=== PATIENT | male | born 1945 | race Caucasian/White ===

== ENCOUNTER → 2019-04-01 15:26 | Outpatient (CLI) | payer MEDICARE, OTHER, SELFPAY ==
--- NOTE | 2019-04-01 15:36 | EKG12_ITS ---
Test Reason : PRE-OP Blood Pressure : / mmHG Vent. Rate : 060 BPM Atrial Rate : 060 BPM P-R Int : 172 ms QRS Dur : 100 ms QT Int : 412 ms P-R-T Axes : 047 -54 006 degrees QTc Int : 412 ms Normal sinus rhythm Left axis deviation LAHB Abnormal ECG Confirmed by KOBE PRO ([id number]), sheeter machine operator TREVOR DAWN ([id number]) on 04/03/2019 3:01:55 PM Referred By: Randa Cali Confirmed By:KOBE PRO
[2019-04-01 15:56] LABS: Absolute Lymphocyte Count 2.31 X10^3/uL (0.83-4.51); Absolute Neutrophil Count 3.5 X10^3/uL (2.0-7.7); Basophil# 0.03 X10^3/uL; Basophil% 0.5 % (0-1); Eosinophil# 0.25 X10^3/uL; Eosinophils% 3.8 % (0-5); Hematocrit 41.4 % (40-54); Hemoglobin 13.5 g/dL (13.0-16.5); Lymphocyte # 2.31 X10^3/ul (4.0); Lymphocyte % 34.8 % (19-41); Mean Corp Hgb Conc 32.6 g/dL (32-36); Mean Corpuscular Hgb 28.1 pg (27.0-32.0); Mean Corpuscular Volume 86.1 fL (80-94); Mean Platelet Vol. 10.4 fl (6.2-12.0); Monocyte# 0.49 X10^3/uL; Monocyte% 7.4 % (0-10); NRBC Flagged by Analyzer 0 % (0-5); Neutrophil # 3.54 X10^3/uL (2.7-7.7); Neutrophil % 53.2 % (47-70); Platelet Count 219 K/mm3 (150-450); RBC Distribution Width CV 13.5 % (11.6-14.6); RBC Distribution Width SD 42.5 fl (35.1-43.9); Red Blood Count 4.81 M/mm3 (4.6-6.2); White Blood Count 6.6 K/mm3 (4.4-11.0)
[2019-04-01 16:41] LABS: Anion Gap 4 (5-15); BUN 15 mg/dL (7-18); BUN/Creat Ratio 15.3 RATIO (10-20); Calcium,Total 9.1 mg/dL (8.5-10.1); Chloride 107 mmol/L (98-107); Creatinine, Serum 0.98 mg/dL (0.70-1.30); EST Glomerular Filtration Rate 80 mL/min (>60); Est Glom Filt Rate - Afr Amer 97 mL/min (>60); Glucose 102 mg/dL (74-106); Sodium Level 140 mmol/L (136-145)
== END ==
PROVIDERS: PCP Family Medicine; Referring Provider Registered Nurse; Visit Provider Registered Nurse
DX: Z01.818 Encounter for other preprocedural examination (principal)
CPT/HCPCS: 36415; 80048; 85025; 93005

== ENCOUNTER 2020-03-18 12:48 | Outpatient (CLI) | payer MEDICARE, OTHER, SELFPAY ==
[2020-03-18 13:05] VITALS: BP 146/98; PULSE 79; RESP 18; TEMP 38.7; O2SAT 97; BMI 29.0
[2020-03-18] MEDS: Acetaminophen 325 MG Tablet 650 MG PO (13:31)
--- NOTE | 2020-03-18 13:37 | NURSING ---
KATELYN Kilgore spoke with SHOAIB John about pt's elevated temp of 101.7. SHOAIB John states it is proper to give tylenol per order and ok to give Bamlanivimab before fever has been reduced. She states for KATELYN Kilgore to be aware that an elevated temp would not necessarily mean pt is having a reaction.
[2020-03-18 14:05] VITALS: BP 142/68; PULSE 77; RESP 16; TEMP 38.1; O2SAT 98
[2020-03-18 14:35] VITALS: BP 129/70; PULSE 73; RESP 16; TEMP 38.1; O2SAT 98
[2020-03-18 14:54] VITALS: BP 135/77; PULSE 73; RESP 16; TEMP 37.7; O2SAT 96
[2020-03-18 15:24] VITALS: BP 140/84; PULSE 71; RESP 16; TEMP 36.4; O2SAT 98
[2020-03-18 15:54] VITALS: BP 137/76; PULSE 71; RESP 16; O2SAT 99
== END 2020-03-18 16:02 | disposition home or self-care (01) ==
LOC: MS2OUT 12:49 → MS2 12:49
PROVIDERS: PCP Family Medicine; Referring Provider Nurse Practitioner Acute Care; Visit Provider Nurse Practitioner Acute Care
DX: U07.1 COVID-19 (principal)
CPT/HCPCS: J7050; M0239; Q0239

== ENCOUNTER 2020-03-18 21:25 | Observation (INO) | payer MEDICARE, OTHER, SELFPAY ==
[2020-03-18 13:05] VITALS: BMI 29.0
[2020-03-18 21:27] VITALS: BP 140/70; PULSE 95; RESP 22; TEMP 39.5; O2SAT 95; BMI 29.4
--- NOTE | 2020-03-18 22:19 | EKG12_ITS ---
Test Reason : DYSRHYTHMIA Blood Pressure : / mmHG Vent. Rate : 079 BPM Atrial Rate : 079 BPM P-R Int : 164 ms QRS Dur : 098 ms QT Int : 372 ms P-R-T Axes : 040 -62 005 degrees QTc Int : 426 ms Normal sinus rhythm Left axis deviation Abnormal ECG Confirmed by SARWAT LINDO, NISHA ([id number]), publication editor ANGI RIDER ([id number]) on 03/22/2020 10:53:30 AM Referred By: FELIX Confirmed By:ILIANA FAM MD
[2020-03-18 22:20] VITALS: BP 140/96; O2SAT 95
--- NOTE | 2020-03-18 22:30 | RAD_ITS ---
STUDY: X-RAY CHEST REASON FOR EXAM: Male, 74 years old. COVID + result on Sunday, has had symptoms for 8-9 days. had antibody infusion today, continues to have fever and confusion. TECHNIQUE: Single AP portable view of the chest. COMPARISON: None. FINDINGS: Normal lung volumes. Elevated left hemidiaphragm. Mild haziness and parenchymal streakiness in the mid and lower left lung. Findings could be scarring and/or atelectasis. Infiltrate not excluded. No gross effusions. There is no demonstrated pleural abnormality. Normal size heart. Normal mediastinum and senait. Normal visualized pulmonary arteries. Normal visualized aortic arch and descending thoracic aorta. Normal visualized thoracic spine. Normal visualized ribs, clavicles, and shoulders. There is no demonstrated abnormality of the visualized soft tissue structures of the upper abdomen. RAD/Chest 1 View (Portable) IMPRESSION: Hazy and streaky increased density of the mid and lower left lung. Electronically Signed: Aubrey Chauhan MD at 22:47 EST , Service support ,
[2020-03-18 22:53] LABS: Basophil# 0.01 X10^3/uL; Basophil% 0.2 % (0-1); Hematocrit 39.1 % (40-54); Hemoglobin 12.8 g/dL (13.0-16.5); Mean Corp Hgb Conc 32.7 g/dL (32-36); Mean Corpuscular Hgb 27.9 pg (27.0-32.0); Mean Corpuscular Volume 85.4 fL (80-94); Mean Platelet Vol. 11.3 fl (6.2-12.0); Monocyte# 0.36 X10^3/uL; Monocyte% 6.6 % (0-10); NRBC Flagged by Analyzer 0 % (0-5); Neutrophil % 72.8 % (47-70); Platelet Count 149 K/mm3 (150-450); RBC Distribution Width CV 13.3 % (11.6-14.6); Red Blood Count 4.58 M/mm3 (4.6-6.2); White Blood Count 5.5 K/mm3 (4.4-11.0)
[2020-03-18 23:00] VITALS: BP 173/85; PULSE 80; RESP 14; TEMP 39.4; O2SAT 95
[2020-03-18 23:01] LABS: International Normalized Ratio 1.1; Partial Thromboplast Time 42.1 Seconds (24.1-36.2)
[2020-03-18 23:07] LABS: ALB/GLOB Ratio 0.9 RATIO (0.9-2.4); AST(SGOT) 13 U/L (15-37); Alanine Aminotransfer ALT/SGPT 29 U/L (16-61); Albumin, Serum 3.4 g/dL (3.2-5.0); Alkaline Phosphatase 74 U/L (45-117); Anion Gap 7 (5-15); BUN 14 mg/dL (7-18); BUN/Creat Ratio 12.6 RATIO (10-20); Calcium,Total 8.5 mg/dL (8.5-10.1); Chloride 103 mmol/L (98-107); Creatinine, Serum 1.11 mg/dL (0.70-1.30); EST Glomerular Filtration Rate 69 mL/min (>60); Est Glom Filt Rate - Afr Amer 84 mL/min (>60); Estimated Creatinine Clearance 67.98 ml/min; Globulin 3.7 g/dL (2.2-4.2); Glucose 151 mg/dL (74-106); Potassium 3.8 mmol/L (3.5-5.1); Protein, Total 7.1 g/dL (6.4-8.2); Sodium Level 135 mmol/L (136-145)
--- NOTE | 2020-03-18 23:11 | CT_ITS ---
STUDY: CT BRAIN WITHOUT CONTRAST REASON FOR EXAM: Male, 74 years old. CONFUSION AND FEVER,PT HAD ANTIBODY INFUSION TODAY -- + COVID TEST ON SUNDAY RADIATION DOSAGE (If Supplied By Facility): CTDIvol = ( 44.99 ) mGy, DLP = ( 762.36 ) mGycm TECHNIQUE: Transaxial CT imaging of the brain was performed without administration of intravenous contrast material. Individualized dose optimization techniques were used for this CT. COMPARISON: No relevant priors. FINDINGS: Normal soft tissue structures. Normal calvarium. There is mild cerebral atrophy with widening of the extra-axial spaces and ventricular dilatation. There are areas of decreased attenuation within the white matter tracts of the supratentorial brain, consistent with microvascular disease changes. Normal basal ganglia and thalami. Normal brainstem. Normal cerebellum. There is no intracranial hemorrhage. There are no findings of an acute ischemic infarction. There is mucoperiosteal inflammatory disease of the bilateral maxillary sinuses consistent with mild chronic sinusitis. Possible small retention cyst left maxillary sinus. The bilateral mastoid air cells and ossicles are unopacified. CT/Brain/Head without Contrast IMPRESSION: Chronic involutional changes of the brain. There is no acute intracranial pathology. Electronically Signed: Debora Rosas MD at 0:34 EST , Service support ,
[2020-03-18 23:12] LABS: Lactic Acid 2.5 mmol/L (0.4-1.9)
[2020-03-18 23:15] LABS: Bacteria 0 SEEN /hpf (None Seen); Mucous, Urine 0 SEEN /hpf (<or=2+); Red Blood Cells-Urine 0 SEEN /hpf (0-5); Squamous Epithelial Cells - UA 0 SEEN /hpf (0-5); White Blood Cells 0 SEEN /hpf (0-5)
[2020-03-18 23:19] LABS: Color, Urine Yellow (Yellow); Glucose, Dipstick Normal (Normal); Ketone-Dipstick Negative (Negative); Leukocyte Esterase-Dipstick 25 /ul (Negative); Nitrite-Dipstick Negative (Negative); Occult Blood-Urine 50 /ul (Negative); Protein-Dipstick 30 mg/dl (Negative); Urine Bilirubin Dipstick Negative (Negative); Urine Clarity Clear (Clear); Urine Urobilinogen Normal (Normal)
[2020-03-18 23:23] VITALS: BP 148/90; PULSE 78; RESP 11; O2SAT 91
[2020-03-18] MEDS: Acetaminophen 500 MG Tablet 1000 MG PO (23:29)
[2020-03-19] VITALS (16 sets, daily range): BP systolic 113–169; BP diastolic 68–98; PULSE 51–84; RESP 14–20; TEMP 35.9–36.9; O2SAT 93–99; BMI 29.4
--- NOTE | 2020-03-19 00:11 | PCM.HP.STD ---
Problem List (1) Pneumonia due to COVID-19 virus Status: Acute (2) Severe sepsis Status: Acute (3) Hypoxia Status: Acute (4) Elevated BP without diagnosis of hypertension Status: Acute (5) BPH (benign prostatic hyperplasia) Status: Chronic Qualifiers: Lower urinary tract symptom presence: unspecified whether lower urinary tract symptoms present Qualified Code(s): N40.0 - Benign prostatic hyperplasia without lower urinary tract symptoms (6) Hyperlipidemia Status: Chronic Qualifiers: Hyperlipidemia type: unspecified Qualified Code(s): E78.5 - Hyperlipidemia, unspecified History of Present Illness Date of Admission: 03/19/20 Chief Complaint: Fatigue, confusion, dyspnea The patient is a 74 y/o M w/ PMHx: BPH, HLD who presents to the [facility] ED on 03/19/20 with history of recent onset significant fatigue, malaise, very mild headache as well as cough but no significantly associated dyspnea starting the Sunday prior to current presentation with testing for Covid on Sunday noted to be positive with administration on 03/18/2020 monoclonal antibody and following this family reportedly noting that patient was more fatigued and slightly confused prompting ED evaluation. In the ED patient was coherent and oriented but significantly fatigued and as noted with any exertion his oxygenation did decrease to 90 to 91%. Work-up in the ED included T103.1, heart rate 95, BP 140/70, respiratory rate 22, 95% on room air initially however with exertion would decrease to 91%, CBC with WBC 5.5, hemoglobin 12.8, platelet 149 without significant shift, coags with PT 14, INR 1.1, PTT 42.1, CMP with sodium 135, glucose 151, lactic acid 2.5, urinalysis not marked appearing, blood culture x2 pending per ED, urine culture pending per ED, chest x-ray with hazy and streaky increased density of the mid and lower left lung, EKG was sinus rhythm with no acute evidence of ischemia. In the ED patient ministered Tylenol 1000 mg p.o. x1 as well as Decadron. Past Medical History Past Medical History (Chronic Problems): Chronic Problems BPH (benign prostatic hyperplasia) (Chronic) Hyperlipidemia (Chronic) Allergies No Known Allergies Allergy (Verified 03/18/20 21:33) Home Medications: Ambulatory Orders Medication Instructions Recorded atorvastatin 10 mg tablet 20 mg PO DAILY tab 03/17/20 tamsulosin 0.4 mg capsule 0.4 mg PO DAILY 03/17/20 Surgical History: - - Lumbar back surgery, left knee arthroscopic surgery, bilateral inguinal hernia repairs. Psychiatric History: No pertinent psych hx Lives: Alone Smoking Status: Never smoker Tobacco Use: Non-smoker Alcohol: None Drugs: None - *Family History Maternal History Items: Hypertension Paternal History Items: Hypertension Review of Systems Constitutional: Reports: Anorexia, Chills, Fever, Malaise, Weakness, Fatigue. Denies: Weight Change HEENT: Reports: Head Aches. Denies: Sinus Congestion, Sinus Drainage Cardiovascular: Denies: Chest Pain, Palpitations Respiratory: Reports: Cough. Denies: Shortness of Breath, Shortness of breath at rest, Sputum production Gastrointestinal: Denies: Abdominal Pain, Nausea, Vomiting Genitourinary: Denies: Dysuria Musculoskeletal: Reports: Joint Pain, Muscle pain. Denies: Joint Tenderness Skin: Denies: Rash, Wounds Neurological: Denies: Numbness, Tingling, Focal weakness Psychiatric: Denies: Anxiety, Depression, Homicidal Ideations, Suicidal Ideations Hematologic/ Lymphatic: Denies: Easy Bruising, Easy Bleeding VTE Information - Inpt Only VTE Present on Admission: No VTE Mechan Device Prophylaxis: SCD's VTE Pharm Prophylaxis ordered?: Yes Patient Problems: Active and Suspected Problems Pneumonia due to COVID-19 virus (Acute) Severe sepsis (Acute) Subjective: Patient seated upright in the ED bed, fatigued appearing, no obvious respiratory distress. Objective: Physical Examination: General: awake, alert, oriented x 3 including to self, place, recent events, remains cooperative, seated upright at the ED bedside, fatigued, ill-appearing, flushed. Skin: Flushed color, turgor, no icterus, cyanosis. HEENT: AT/NC, EOMI, PERRLA, moderately dry MM, no carotid bruits or JVD noted. Lungs: Diminished breath sounds, greater bases, currently moderate effort with no evidence of respiratory distress, no rales, ronchi or wheezing. Heart: Mildly tachycardic with regular rhythm; no gallop, rub audible. Abdomen: soft, NTTP, ND, normal BS, no HSM. Extremities: no cyanosis, clubbing, or edema. Neurological: patient awake, alert, oriented as noted; cognitive function improved and appears baseline intact; pupils equally reactive to light and accomodation; cranial nerves II-XII grossly normal, moving all 4 extremities, no focal deficits, strength moderately global decrease secondary to acute presentation and illness. Psychiatric: affect appears fatigued otherwise normal, no acute evidence of depressive or anxiety feelings. - Physical Exam Vitals/I&O's: Vital Signs Temp Pulse Resp BP Pulse Ox 102.9 F H 78 11 L 148/90 H 91 03/18/20 23:00 03/18/20 23:23 03/18/20 23:23 03/18/20 23:23 03/18/20 23:23 Oxygen Flow Rate (L/min) 2 Oxygen Delivery Method Room Air Weight: 223 lb 1.725 oz Body Mass Index (BMI) 29.4 Laboratory Results 03/18/20 21:30: WBC 5.5, RBC 4.58 L, Hgb 12.8 L, Hct 39.1 L, MCV 85.4, MCH 27.9, MCHC 32.7, RDW Std Deviation 42.0, RDW Coeff of [place] 13.3, Plt Count 149 L, MPV 11.3, Immature Gran % (Auto) 0.400, Neut % (Auto) 72.8 H, Lymph % (Auto) 20.0, [place] % (Auto) 6.6, Eos % (Auto) 0.0, Baso % (Auto) 0.2, Absolute Neuts (auto) 4.0, Absolute Lymphs (auto) 1.10, Nucleated RBC % 0 03/18/20 21:30: PT 14.0, INR 1.1, APTT 42.1 H 03/18/20 21:30: Sodium 135 L, Potassium 3.8, Chloride 103, Carbon Dioxide 25.0, Anion Gap 7, BUN 14, Creatinine 1.11, Estim Creat Clear Calc 67.98, Est GFR (MDRD) Af Amer 84, Est GFR (MDRD) Non-Af 69, BUN/Creatinine Ratio 12.6, Glucose 151 H, Calcium 8.5, Total Bilirubin 0.50, AST 13 L, ALT 29, Alkaline Phosphatase 74, Total Protein 7.1, Albumin 3.4, Globulin 3.7, Albumin/Globulin Ratio 0.9 03/18/20 21:30: Lactic Acid 2.5 H* 03/18/20 23:10: Urine Color Yellow, Urine Clarity Clear, Urine pH 6.0, Ur Specific [place] 1.010, Urine Protein 30 H, Urine Glucose (UA) Normal, Urine Ketones Negative, Urine Occult Blood 50 H, Urine Nitrite Negative, Urine Bilirubin Negative, Urine Urobilinogen Normal, Ur Leukocyte Esterase 25 H, Urine RBC 0 SEEN, Urine WBC 0 SEEN, Ur Squamous Epith Cells 0 SEEN, Urine Bacteria 0 SEEN, Urine Mucus 0 SEEN Assessment/Plan All Active Problems Pneumonia due to COVID-19 virus (Acute) Severe sepsis (Acute) Hypoxia (Acute) Elevated BP without diagnosis of hypertension (Acute) The patient is a 74 y/o M w/ PMHx: JENNY, MARY who presents to the [facility] ED on 03/19/20 with history of recent onset significant fatigue, malaise, very mild headache as well as cough but no significantly associated dyspnea starting the Sunday prior to current presentation with testing for Covid on Sunday noted to be positive with administration on 03/18/2020 monoclonal antibody and following this family reportedly noting that patient was more fatigued and slightly confused prompting ED evaluation. 1. Acute Encephalopathy secondary to Acute Severe Sepsis secondary to Acute Pneumonia secondary to Acute Viral Syndrome, COVID-19: Will admit to the COVID unit, will maintain on oxygen with wean as tolerated to room air, PRN albuterol, HOB, IS parameters w/ pending sputum cultures, respiratory viral panel and urine antigens, will obtain D-dimer, procalcitonin, CRP, CPK, Ferritin, LDH, trop and BNP, continue supportive care including q 2 hour turning including prone given no prone bed availability and judicious hydration, closely monitor for worsening status for ARDS and multiorgan failure, will consult Infectious disease, will initiate and continue IV decadron x 10 doses, given presentation will also initiate IV remdesivir as per prior discussions with infectious disease monoclonal antibody administration is not a clinical indication for deferral of remdesivir usage but defer to discretion of Infectious disease. Patient does report that he is blood type A-. 2. Elevated BP without hypertensive history: Patient with elevated BPs in the ED, possibly associate with acute presentation, will continue to monitor and if appropriate add oral regimen, in the interim we will continue IV as needed agents. 3. Hyperlipidemia: We will continue patient home statin therapy. 4. BPH: Patient reports has not been taking Flomax but if necessary may add back. 5. Hyperglycemia: Admission glucose 151, likely stress response, will obtain hemoglobin A1c to be cautious. 6. DVT prophylaxis: SCDs, Lovenox. 7. CODE status: Patient SULEMAN is his eldest son Daniel and living will is currently in place. Discussed CODE status at length including difference between FULL code, DNR-CCA and DNR-CC status. Following discussions about the differences in these status, requested Full Code status. Advanced Care Planning Face to Face Time: 16 minutes. OBSV E&M: 31912 Initial observation care L3 Procedures: 24196 Advncd Care Plan 30 Min
--- NOTE | 2020-03-19 00:21 | ED.DCSUM_ITS ---
- ER Visit Summary Date of Service: 03/19/20 Chief Complaint: Confusion History of Present Illness: The patient is a 74 M who presents with confusion that began today. Patient was recently diagnosed with COVID-19. Patient had a monoclonal antibody infusion today. After that, the patient appeared to be more confused per son. Son states that patient was confused on the day and time. Son states patient had a rapid antigen and PCR test done on Sunday, 6 days ago. Son reports that the rapid antigen test was negative but the PCR test came back positive on Sunday. Patient states he started having a fever today up to 102.5 at home. Patient admits to a cough. Patient also admits to a headache. Nancy ent denies any chest pain. Physical Examination: Vital signs are stable. Patient is febrile here with a temperature of 103.1. Patient is in no acute distress. Oral mucosa is pink and moist. Neck is supple. Trachea is midline. There is no JVD. Heart was regular rate and rhythm. Lungs are clear but diminished bilaterally. Abdomen is soft. Bowel sounds are normal. There is no tenderness. Cranial nerves II through XII are intact. There are no focal motor or sensory deficits noted. Extremities are intact. There is no calf tenderness or edema. Test Results: Portable chest x-ray was obtained. There is 1 view. On my interpretation, there is bilateral perihilar infiltrates and a left lower lobe infiltrate. Radiologist also interpreted the x-ray and felt there was only a left lower lobe and left perihilar infiltrate. EKG was obtained. On my interpretation, there is normal sinus rhythm with a rate of 79. There is left axis deviation. There is no acute ST or T wave changes noted. CBC was essentially within normal limits. Comprehensive metabolic profile was normal. PT with INR and PTT were normal. Urinalysis does not show any evidence of urinary tract infection. Lactate was elevated 2.5. Emergency Department Course and Treatment: Patient was given a dose of Tylenol here. Patient was given a dose of Decadron. Case was discussed with the hospitalist. She will admit the patient to her service. She recommended ambulating the patient on room air with a pulse oximeter. This was done. Patient's oxygen saturation dropped from 94 to 91% on room air with ambulation. Patient understood and was agreeable with the plan. All questions were answered. Disposition: Admit to hospital Impression: 1. COVID-19 pneumonia 2. Severe sepsis This note was generated with Melophone dictation software. It may contain incorrect words, spelling, and punctuation that were not noted in review of the chart prior to signing ED Disposition - Plan for ED Patient: Disposition: Acute Care Hospital [facility] Diagnosis: Pneumonia due to COVID-19 virus, Severe sepsis Referrals: Moiz Tobias MD [Primary Care Provider] -
[2020-03-19] MEDS: dexAMETHasone 10 MG/ML Vial IV (00:37)
[2020-03-19 02:45] LABS: Reflex Lactate? Y
[2020-03-19 02:57] LABS: D-Dimer Quantitative (DVT/PE) 0.58 FEU/ug/m (0.27-0.49)
[2020-03-19 03:07] LABS: Hemoglobin A1c 5.9 % (3.8-5.6)
[2020-03-19 03:10] LABS: Absolute Lymphocyte Count 0.98 X10^3/uL (0.83-4.51); Absolute Neutrophil Count 6.9 X10^3/uL (2.0-7.7); Basophil# 0.01 X10^3/uL; Basophil% 0.1 % (0-1); Eosinophil# 0.01 X10^3/uL; Eosinophils% 0.1 % (0-5); Hematocrit 39.3 % (40-54); Hemoglobin 13.5 g/dL (13.0-16.5); Lymphocyte # 0.98 X10^3/ul (4.0); Lymphocyte % 11.9 % (19-41); Mean Corp Hgb Conc 34.4 g/dL (32-36); Mean Corpuscular Volume 84.3 fL (80-94); Mean Platelet Vol. 10.5 fl (6.2-12.0); Monocyte# 0.32 X10^3/uL; Monocyte% 3.9 % (0-10); NRBC Flagged by Analyzer 0 % (0-5); Neutrophil % 83.6 % (47-70); Platelet Count 164 K/mm3 (150-450); RBC Distribution Width CV 13.4 % (11.6-14.6); RBC Distribution Width SD 41.5 fl (35.1-43.9); Red Blood Count 4.66 M/mm3 (4.6-6.2); White Blood Count 8.3 K/mm3 (4.4-11.0)
[2020-03-19 03:16] LABS: BNP,B-Type NATRIURETIC PEPTIDE 54.1 pg/mL (0-100)
[2020-03-19 03:28] LABS: Procalcitonin 0.15 ng/mL (0.00-0.09)
[2020-03-19 03:28] LABS: Alkaline Phosphatase 75 U/L (45-117); Ferritin 114 ng/mL (26-388); LDH 288 U/L (87-241)
[2020-03-19 03:33] LABS: ALB/GLOB Ratio 0.9 RATIO (0.9-2.4); AST(SGOT) 16 U/L (15-37); Alanine Aminotransfer ALT/SGPT 32 U/L (16-61); Albumin, Serum 3.5 g/dL (3.2-5.0); Alkaline Phosphatase 73 U/L (45-117); Anion Gap 10 (5-15); BUN 16 mg/dL (7-18); BUN/Creat Ratio 14.7 RATIO (10-20); Calcium,Total 8.2 mg/dL (8.5-10.1); Chloride 104 mmol/L (98-107); Creatinine, Serum 1.09 mg/dL (0.70-1.30); EST Glomerular Filtration Rate 71 mL/min (>60); Est Glom Filt Rate - Afr Amer 86 mL/min (>60); Estimated Creatinine Clearance 69.23 ml/min; Glucose 118 mg/dL (74-106); Potassium 4.1 mmol/L (3.5-5.1); Protein, Total 7.5 g/dL (6.4-8.2); Sodium Level 135 mmol/L (136-145)
[2020-03-19 03:34] LABS: Lactic Acid 0.8 mmol/L (0.4-1.9)
[2020-03-19] MEDS: 0.9% Normal Saline 1,000 ML 100 ML IV (03:35)
--- NOTE | 2020-03-19 08:25 | PCM.PN.HOSP ---
Patient Problems: Active and Suspected Problems Pneumonia due to COVID-19 virus (Acute) Severe sepsis (Acute) Hypoxia (Acute) Elevated BP without diagnosis of hypertension (Acute) Reason for Visit: Follow-up for confusion after monoclonal antibody infusion. Objective: The patient was admitted with confusion and recently diagnosed with COVID-19. Patient also had monoclonal antibody infusion on 03/18 and was more confused. Patient had PCR test done on 03/12 which came positive. Had headache at the time of admission Patient currently is denies any headache. Feels good. Denies shortness of breath. Physical exam General: Alert, Oriented x3, Cooperative HEENT: Atraumatic, PERRLA, EOMI, Normocephalic Oral: No Gingival or Mucosal Lesions/ Ulcerations Neck: Supple, No JVD, Negative Carotid Bruits Lungs: Air entry diminished in bilateral lung bases. No crepitation/rhonchi Cardiovascular: Regular rate, Regular Rhythm, Normal S1, Normal S2, No murmurs Abdomen: Bowel Sounds Present, Soft, Non Tender, Non-Distended : No renal angle tenderness. No suprapubic tenderness. Extremities: No edema, Capillary Refill Less than 3 Seconds Skin: No rashes, No breakdown Musculoskeletal: No Tenderness to Palpation of Joints or Extremities Neurological: Cranial nerves II-XII grossly intact, Deep Tendon Reflexes 2+/4 and Symmetrical, Neuro grossly intact Psych/Mental Status: Normal Affect, Appropriate. Vitals/I&O's: Vital Signs Temp Pulse Resp BP Pulse Ox 97 F L 52 L 16 113/68 98 03/19/20 03:32 03/19/20 08:03 03/19/20 03:32 03/19/20 03:32 03/19/20 05:55 Oxygen Flow Rate (L/min) 2 Oxygen Delivery Method Room Air Weight: 223 lb 8.78 oz Body Mass Index (BMI) 29.4 Microbiology Past 72 Hours 03/19/20 Unknown Urine, Clean Catch Legionella Antigen - Final 03/19/20 Unknown Urine, Clean Catch Streptococcus pneumoniae Antigen (M - Final Laboratory Results 03/18/20 21:30: WBC 5.5, RBC 4.58 L, Hgb 12.8 L, Hct 39.1 L, MCV 85.4, MCH 27.9, MCHC 32.7, RDW Std Deviation 42.0, RDW Coeff of [place] 13.3, Plt Count 149 L, MPV 11.3, Immature Gran % (Auto) 0.400, Neut % (Auto) 72.8 H, Lymph % (Auto) 20.0, [place] % (Auto) 6.6, Eos % (Auto) 0.0, Baso % (Auto) 0.2, Absolute Neuts (auto) 4.0, Absolute Lymphs (auto) 1.10, Nucleated RBC % 0 03/18/20 21:30: PT 14.0, INR 1.1, APTT 42.1 H 03/18/20 21:30: Sodium 135 L, Potassium 3.8, Chloride 103, Carbon Dioxide 25.0, Anion Gap 7, BUN 14, Creatinine 1.11, Estim Creat Clear Calc 67.98, Est GFR (MDRD) Af Amer 84, Est GFR (MDRD) Non-Af 69, BUN/Creatinine Ratio 12.6, Glucose 151 H, Calcium 8.5, Total Bilirubin 0.50, AST 13 L, ALT 29, Alkaline Phosphatase 74, Total Protein 7.1, Albumin 3.4, Globulin 3.7, Albumin/Globulin Ratio 0.9 03/18/20 21:30: Lactic Acid 2.5 H* 03/18/20 21:30: D-Dimer Quant (PE/DVT) 0.58 H* 03/18/20 21:30: Hemoglobin A1c 5.9 H 03/18/20 21:30: B-Natriuretic Peptide 54.1 03/18/20 21:30: Procalcitonin 0.15 H 03/18/20 23:10: Urine Color Yellow, Urine Clarity Clear, Urine pH 6.0, Ur Specific [place] 1.010, Urine Protein 30 H, Urine Glucose (UA) Normal, Urine Ketones Negative, Urine Occult Blood 50 H, Urine Nitrite Negative, Urine Bilirubin Negative, Urine Urobilinogen Normal, Ur Leukocyte Esterase 25 H, Urine RBC 0 SEEN, Urine WBC 0 SEEN, Ur Squamous Epith Cells 0 SEEN, Urine Bacteria 0 SEEN, Urine Mucus 0 SEEN 03/19/20 02:50: Magnesium 2.0, Ferritin 114, Alkaline Phosphatase 75, Lactate Dehydrogenase 288 H, Troponin I < 0.015, C-React Prot Ext Range 57.60 H 03/19/20 02:50: WBC 8.3, RBC 4.66, Hgb 13.5, Hct 39.3 L, MCV 84.3, MCH 29.0, MCHC 34.4 D, RDW Std Deviation 41.5, RDW Coeff of [place] 13.4, Plt Count 164, MPV 10.5, Immature Gran % (Auto) 0.400, Neut % (Auto) 83.6 H, Lymph % (Auto) 11.9 L, [place] % (Auto) 3.9, Eos % (Auto) 0.1, Baso % (Auto) 0.1, Absolute Neuts (auto) 6.9, Absolute Lymphs (auto) 0.98, Nucleated RBC % 0 03/19/20 02:50: Sodium 135 L, Potassium 4.1, Chloride 104, Carbon Dioxide 21.0, Anion Gap 10, BUN 16, Creatinine 1.09, Estim Creat Clear Calc 69.23, Est GFR (MDRD) Af Amer 86, Est GFR (MDRD) Non-Af 71, BUN/Creatinine Ratio 14.7, Glucose 118 H, Calcium 8.2 L, Total Bilirubin 0.50, AST 16, ALT 32, Alkaline Phosphatase 73, Total Protein 7.5, Albumin 3.5, Globulin 4.0, Albumin/Globulin Ratio 0.9 03/19/20 02:50: Lactic Acid 0.8 Current Medications Acetaminophen (Acetaminophen 325 Mg Tablet) 650 mg PO Q6H PRN PRN PRN Reason: Pain Score 1-10/Temp > 100.7 F Al Hydroxide/Mg Hydroxide (Mag Hydrox/Al Hydrox/Simeth 30 Ml Udc) 30 ml PO Q6H PRN PRN PRN Reason: Gastric Burning Albuterol Sulfate (Albuterol Ih 8.5 Gm (Proair) Inhaler (200 Puffs)) 4 - 8 puff INHALATION Q4H PRN PRN PRN Reason: Dyspnea, wheezing Atorvastatin Calcium (Atorvastatin Calcium 20 Mg Tablet) 20 mg PO DAILY [facility] Dexamethasone Sodium Phosphate (Dexamethasone 10 Mg/Ml Vial) 6 mg IV DAILY [facility] Stop: 03/28/20 10:01 Enoxaparin Sodium (Enoxaparin 30 Mg/0.3 Ml Syringe) 30 mg SC BID [facility] Famotidine (Famotidine 20 Mg Tablet) 20 mg PO BID [facility] Guaifenesin (Guaifenesin 10 Ml Udc (200mg/10ml)) 20 ml PO Q4H PRN PRN PRN Reason: COUGH Hydralazine HCl (Hydralazine 20 Mg/Ml Vial) 10 mg IV Q4H PRN PRN PRN Reason: SBP > 160 Sodium Chloride () 1,000 mls @ 100 mls/hr IV .Q10H [facility] Stop: 03/19/20 12:38 Last Admin: 03/19/20 03:35 Dose: 100 mls/hr Documented by: Remdesivir 100 mg/ Sodium (Chloride) 250 mls @ 125 mls/hr IV DAILY [facility] Stop: 03/23/20 11:59 Sodium Chloride () 250 mls @ 15 mls/hr IV .[id number] PRN PRN Reason: Saline Flush Remdesivir 200 mg/ Sodium (Chloride) 250 mls @ 125 mls/hr IV X1 ONE Stop: 03/19/20 08:44 Ibuprofen (Ibuprofen 400 Mg Tablet) 400 mg PO Q4H PRN PRN PRN Reason: Pain Score 1-10/Temp > 100.7 F Magnesium Hydroxide (Magnesium Hydroxide 30 Ml Udc) 30 ml PO DAILY PRN PRN PRN Reason: Constipation Melatonin (Melatonin 3 Mg Tablet) 3 mg PO QHS PRN PRN PRN Reason: INSOMNIA Ondansetron HCl (Ondansetron 4 Mg/2 Ml Vial) 4 mg IV Q8H PRN PRN PRN Reason: NAUSEA/VOMITING Prochlorperazine Edisylate (Prochlorperazine 10 Mg/2 Ml Vial) 5 mg IV Q4H PRN PRN PRN Reason: Breakthrough nausea/vomiting Psyllium Hydrophilic Mucilloid (Psyllium 1 Packet) 1 packet PO DAILY PRN PRN PRN Reason: Constipation Senna/Docusate Sodium (Senna/Docusate Sodium 1 Tablet) 2 tablet PO BID PRN PRN PRN Reason: Constipation Sodium Chloride (0.9% Saline Lock 10 Ml Syringe) 10 - 40 ml IV UD PRN PRN Reason: SALINE FLUSH Throat Lozenges (Benzocaine/Menthol 1 Lozenge) 1 lozenge MUCOUS MEM Q2H PRN PRN PRN Reason: SORE THROAT STROKE Vital Signs/Narrative: Vital Signs Pulse Pulse Ox 03/19/20 08:03 52 L 03/19/20 05:55 98 Medical Necessity - Tobacco Use Smoking Status: Never smoker Tobacco Use: Non-smoker Assessment/Plan All Active Problems Pneumonia due to COVID-19 virus (Acute) Severe sepsis (Acute) Hypoxia (Acute) Elevated BP without diagnosis of hypertension (Acute) The patient is a 74 y/o M was admitted with mild headache, mild cough with a diagnosis of COVID-19 by PCR on 03/12. Patient had confusion after monoclonal antibody infusion on 03/18 prior to admission. No significant dyspnea. 1. Acute Encephalopathy secondary to severe sepsis from, left lower lobe COVID-19 pneumonia: Patient admitted on Covid cohort floor. Started on IV Decadron and remdesivir. Monoclonal antibody not contraindication for remdesivir. Inflammatory markers are elevated. Lactic acid was elevated 2.5, repeat normal. Inflammatory markers LDH, CRP, D-dimer and procalcitonin are elevated. CT head does not show acute intracranial pathology. Chest x-ray individually reviewed and shows mild haziness/streak in the mid and left lower lung suggestive of possible scarring or atelectasis or pneumonic infiltrate. On Lovenox 30 mg subcut twice daily. 2. Elevated BP without hypertensive history, new onset essential hypertension: Blood pressure is elevated in ED 173/85. Blood pressure fluctuates it was 113/68 but again went up 158/84. Started on HCTZ 12.5 mg daily. 3. Hyperlipidemia: continue patient home statin therapy. 4. BPH: Not taking Flomax. 5. Hyperglycemia: Admission glucose 151, A1c 5.9 suggestive of prediabetes 6. DVT prophylaxis: SCDs, Lovenox. 7. CODE status: Full code. I talked to the patient's son, Mr. Sanchez and gave the clinical update. Clinical Impression(s) from Imaging Studies Chest X-Ray 03/18/20 22:30 IMPRESSION: Hazy and streaky increased density of the mid and lower left lung. Brain CT 03/18/20 23:11 IMPRESSION: Chronic involutional changes of the brain. There is no acute intracranial pathology.
[2020-03-19] MEDS: Enoxaparin 30 MG/0.3 ML Syringe SC ×2 (08:38→20:30)
[2020-03-19] MEDS: Atorvastatin Calcium 20 MG Tablet PO (08:38)
[2020-03-19] MEDS: Famotidine 20 MG Tablet PO ×2 (08:38→20:30)
[2020-03-19] MEDS: 0.9% Saline Lock 10 ML Syringe IV (08:39)
[2020-03-19] MEDS: dexAMETHasone 10 MG/ML Vial 6 MG IV (08:39)
[2020-03-19] MEDS: hydroCHLOROthiazide 25 MG Tablet 12.5 MG PO (15:42)
--- NOTE | 2020-03-19 16:01 | CON.PCM_ITS ---
Problem List (1) Pneumonia due to COVID-19 virus Status: Acute Reason for Consult: covid Consulted by: Dr. Herrera History of Present Illness: The patient is a 74 year old M with sx starting 03/16, c/o fatigue, not feeling well. Covid (+), got monoclonal Ab infusion 03/18, then developed cough, aches, fever, shakes. Taken to ED, hypoxic, given dex and remdesivir, feeling good today, off O2. Full ROS performed and neg except as noted above. - Medical History Past Medical History (Chronic Problems): Chronic Problems BPH (benign prostatic hyperplasia) (Chronic) Hyperlipidemia (Chronic) Allergies/Adverse Reactions: Allergies No Known Allergies Allergy (Verified 03/18/20 21:33) Home Medications: Ambulatory Orders Medication Instructions Recorded atorvastatin 10 mg tablet 20 mg PO DAILY tab 03/17/20 - Social History Tobacco Use: non-smoker Vital Signs Temp Pulse Resp BP Pulse Ox 97.3 F L 64 20 H 169/98 H 94 03/19/20 15:29 03/19/20 15:29 03/19/20 15:29 03/19/20 15:29 03/19/20 15:29 Oxygen Flow Rate (L/min) 2 Oxygen Delivery Method Room Air Weight: 101.4 kg Body Mass Index (BMI) 29.4 Microbiology Past 72 Hours 03/19/20 05:55 Respiratory Panel (PCR) - Final Mucosa - Nasopharyngeal 03/19/20 Unknown Legionella Antigen - Final Urine, Clean Catch Streptococcus pneumoniae Antigen (M - Final Laboratory Tests Past 24 Hrs 03/18/20 03/18/20 03/18/20 21:30 21:30 21:30 WBC 5.5 RBC 4.58 L Hgb 12.8 L Hct 39.1 L MCV 85.4 MCH 27.9 MCHC 32.7 RDW Std Deviation 42.0 RDW Coeff of [place] 13.3 Plt Count 149 L MPV 11.3 Immature Gran % (Auto) 0.400 Neut % (Auto) 72.8 H Lymph % (Auto) 20.0 [place] % (Auto) 6.6 Eos % (Auto) 0.0 Baso % (Auto) 0.2 Absolute Neuts (auto) 4.0 Absolute Lymphs (auto) 1.10 Nucleated RBC % 0 PT 14.0 INR 1.1 APTT 42.1 H D-Dimer Quant (PE/DVT) Sodium 135 L Potassium 3.8 Chloride 103 Carbon Dioxide 25.0 Anion Gap 7 BUN 14 Creatinine 1.11 Estim Creat Clear Calc 67.98 Est GFR (MDRD) Af Amer 84 Est GFR (MDRD) Non-Af 69 BUN/Creatinine Ratio 12.6 Glucose 151 H Hemoglobin A1c Lactic Acid Calcium 8.5 Magnesium Ferritin Total Bilirubin 0.50 AST 13 L ALT 29 Alkaline Phosphatase 74 Lactate Dehydrogenase Troponin I C-React Prot Ext Range B-Natriuretic Peptide Total Protein 7.1 Albumin 3.4 Globulin 3.7 Albumin/Globulin Ratio 0.9 Procalcitonin Urine Color Urine Clarity Urine pH Ur Specific [place] Urine Protein Urine Glucose (UA) Urine Ketones Urine Occult Blood Urine Nitrite Urine Bilirubin Urine Urobilinogen Ur Leukocyte Esterase Urine RBC Urine WBC Ur Squamous Epith Cells Urine Bacteria Urine Mucus 03/18/20 03/18/20 03/18/20 21:30 21:30 21:30 WBC RBC Hgb Hct MCV MCH MCHC RDW Std Deviation RDW Coeff of [place] Plt Count MPV Immature Gran % (Auto) Neut % (Auto) Lymph % (Auto) [place] % (Auto) Eos % (Auto) Baso % (Auto) Absolute Neuts (auto) Absolute Lymphs (auto) Nucleated RBC % PT INR APTT D-Dimer Quant (PE/DVT) 0.58 H* Sodium Potassium Chloride Carbon Dioxide Anion Gap BUN Creatinine Estim Creat Clear Calc Est GFR (MDRD) Af Amer Est GFR (MDRD) Non-Af BUN/Creatinine Ratio Glucose Hemoglobin A1c 5.9 H Lactic Acid 2.5 H* Calcium Magnesium Ferritin Total Bilirubin AST ALT Alkaline Phosphatase Lactate Dehydrogenase Troponin I C-React Prot Ext Range B-Natriuretic Peptide Total Protein Albumin Globulin Albumin/Globulin Ratio Procalcitonin Urine Color Urine Clarity Urine pH Ur Specific [place] Urine Protein Urine Glucose (UA) Urine Ketones Urine Occult Blood Urine Nitrite Urine Bilirubin Urine Urobilinogen Ur Leukocyte Esterase Urine RBC Urine WBC Ur Squamous Epith Cells Urine Bacteria Urine Mucus 03/18/20 03/18/20 03/18/20 21:30 21:30 23:10 WBC RBC Hgb Hct MCV MCH MCHC RDW Std Deviation RDW Coeff of [place] Plt Count MPV Immature Gran % (Auto) Neut % (Auto) Lymph % (Auto) [place] % (Auto) Eos % (Auto) Baso % (Auto) Absolute Neuts (auto) Absolute Lymphs (auto) Nucleated RBC % PT INR APTT D-Dimer Quant (PE/DVT) Sodium Potassium Chloride Carbon Dioxide Anion Gap BUN Creatinine Estim Creat Clear Calc Est GFR (MDRD) Af Amer Est GFR (MDRD) Non-Af BUN/Creatinine Ratio Glucose Hemoglobin A1c Lactic Acid Calcium Magnesium Ferritin Total Bilirubin AST ALT Alkaline Phosphatase Lactate Dehydrogenase Troponin I C-React Prot Ext Range B-Natriuretic Peptide 54.1 Total Protein Albumin Globulin Albumin/Globulin Ratio Procalcitonin 0.15 H Urine Color Yellow Urine Clarity Clear Urine pH 6.0 Ur Specific [place] 1.010 Urine Protein 30 H Urine Glucose (UA) Normal Urine Ketones Negative Urine Occult Blood 50 H Urine Nitrite Negative Urine Bilirubin Negative Urine Urobilinogen Normal Ur Leukocyte Esterase 25 H Urine RBC 0 SEEN Urine WBC 0 SEEN Ur Squamous Epith Cells 0 SEEN Urine Bacteria 0 SEEN Urine Mucus 0 SEEN 03/19/20 03/19/20 03/19/20 02:50 02:50 02:50 WBC 8.3 RBC 4.66 Hgb 13.5 Hct 39.3 L MCV 84.3 MCH 29.0 MCHC 34.4 D RDW Std Deviation 41.5 RDW Coeff of [place] 13.4 Plt Count 164 MPV 10.5 Immature Gran % (Auto) 0.400 Neut % (Auto) 83.6 H Lymph % (Auto) 11.9 L [place] % (Auto) 3.9 Eos % (Auto) 0.1 Baso % (Auto) 0.1 Absolute Neuts (auto) 6.9 Absolute Lymphs (auto) 0.98 Nucleated RBC % 0 PT INR APTT D-Dimer Quant (PE/DVT) Sodium 135 L Potassium 4.1 Chloride 104 Carbon Dioxide 21.0 Anion Gap 10 BUN 16 Creatinine 1.09 Estim Creat Clear Calc 69.23 Est GFR (MDRD) Af Amer 86 Est GFR (MDRD) Non-Af 71 BUN/Creatinine Ratio 14.7 Glucose 118 H Hemoglobin A1c Lactic Acid Calcium 8.2 L Magnesium 2.0 Ferritin 114 Total Bilirubin 0.50 AST 16 ALT 32 Alkaline Phosphatase 75 73 Lactate Dehydrogenase 288 H Troponin I < 0.015 C-React Prot Ext Range 57.60 H B-Natriuretic Peptide Total Protein 7.5 Albumin 3.5 Globulin 4.0 Albumin/Globulin Ratio 0.9 Procalcitonin Urine Color Urine Clarity Urine pH Ur Specific [place] Urine Protein Urine Glucose (UA) Urine Ketones Urine Occult Blood Urine Nitrite Urine Bilirubin Urine Urobilinogen Ur Leukocyte Esterase Urine RBC Urine WBC Ur Squamous Epith Cells Urine Bacteria Urine Mucus 03/19/20 02:50 WBC RBC Hgb Hct MCV MCH MCHC RDW Std Deviation RDW Coeff of [place] Plt Count MPV Immature Gran % (Auto) Neut % (Auto) Lymph % (Auto) [place] % (Auto) Eos % (Auto) Baso % (Auto) Absolute Neuts (auto) Absolute Lymphs (auto) Nucleated RBC % PT INR APTT D-Dimer Quant (PE/DVT) Sodium Potassium Chloride Carbon Dioxide Anion Gap BUN Creatinine Estim Creat Clear Calc Est GFR (MDRD) Af Amer Est GFR (MDRD) Non-Af BUN/Creatinine Ratio Glucose Hemoglobin A1c Lactic Acid 0.8 Calcium Magnesium Ferritin Total Bilirubin AST ALT Alkaline Phosphatase Lactate Dehydrogenase Troponin I C-React Prot Ext Range B-Natriuretic Peptide Total Protein Albumin Globulin Albumin/Globulin Ratio Procalcitonin Urine Color Urine Clarity Urine pH Ur Specific [place] Urine Protein Urine Glucose (UA) Urine Ketones Urine Occult Blood Urine Nitrite Urine Bilirubin Urine Urobilinogen Ur Leukocyte Esterase Urine RBC Urine WBC Ur Squamous Epith Cells Urine Bacteria Urine Mucus - Other Studies Radiology: [] reviewed Other Studies: [] Route of nutrition/ use of supplements: [] Nutritional Intake: [] IV Site: [] Savage Catheter: [] - Physical Exam General: Alert, Cooperative, No apparent distress HEENT: Atraumatic, PERRLA, EOMI Neck: Supple, No Nodes Lungs: Clear to auscultation, Normal air movement Cardiovascular: Regular rate, Regular Rhythm Abdomen: Soft, Non Tender, Non-Distended Extremities: No edema Skin: No rashes Musculoskeletal: No Tenderness to Palpation of Joints or Extremities Neurological: Cranial nerves II-XII grossly intact - Assessment/Plan Antibiotics: [] Assessment/Plan: [] Active and Suspected Problems Pneumonia due to COVID-19 virus (Acute) Severe sepsis (Acute) Hypoxia (Acute) Elevated BP without diagnosis of hypertension (Acute) covid with hypoxia - sx started 03/16, got monoclonal Ab on 03/18, now on remdesivir, dex. Feeling well. Sat was 91% on RA in ED. Ok for d/c home to complete 10 total days of dex. Would quarantine 14 days total. Will follow, thank you
[2020-03-20] VITALS (9 sets, daily range): BP systolic 130–176; BP diastolic 47–97; PULSE 56–74; RESP 18; TEMP 36–36.6; O2SAT 97–98
[2020-03-20] MEDS: hydrALAZINE 20 MG/ML Vial 10 MG IV (03:16)
[2020-03-20 06:35] LABS: Hemoglobin 13.2 g/dL (13.0-16.5); Mean Corp Hgb Conc 33.8 g/dL (32-36); Mean Corpuscular Hgb 28.4 pg (27.0-32.0); Mean Corpuscular Volume 84.1 fL (80-94); Mean Platelet Vol. 10.9 fl (6.2-12.0); Platelet Count 178 K/mm3 (150-450); RBC Distribution Width CV 13.6 % (11.6-14.6); RBC Distribution Width SD 41.9 fl (35.1-43.9); Red Blood Count 4.64 M/mm3 (4.6-6.2); White Blood Count 7.6 K/mm3 (4.4-11.0)
[2020-03-20 06:59] LABS: ALB/GLOB Ratio 0.9 RATIO (0.9-2.4); AST(SGOT) 14 U/L (15-37); Alanine Aminotransfer ALT/SGPT 32 U/L (16-61); Albumin, Serum 3.1 g/dL (3.2-5.0); Alkaline Phosphatase 70 U/L (45-117); Anion Gap 8 (5-15); BUN 17 mg/dL (7-18); BUN/Creat Ratio 24.1 RATIO (10-20); Calcium,Total 8.9 mg/dL (8.5-10.1); Chloride 109 mmol/L (98-107); Creatinine, Serum 0.71 mg/dL (0.70-1.30); EST Glomerular Filtration Rate 117 mL/min (>60); Est Glom Filt Rate - Afr Amer 141 mL/min (>60); Estimated Creatinine Clearance 75.46 ml/min; Globulin 3.4 g/dL (2.2-4.2); Glucose 120 mg/dL (74-106); Potassium 3.9 mmol/L (3.5-5.1); Protein, Total 6.5 g/dL (6.4-8.2); Sodium Level 142 mmol/L (136-145)
[2020-03-20] MEDS: hydroCHLOROthiazide 25 MG Tablet 12.5 MG PO (09:06)
[2020-03-20] MEDS: Atorvastatin Calcium 20 MG Tablet PO (09:06)
[2020-03-20] MEDS: dexAMETHasone 4 MG Tablet 6 MG PO (09:06)
[2020-03-20] MEDS: Enoxaparin 30 MG/0.3 ML Syringe SC (09:06)
[2020-03-20] MEDS: Famotidine 20 MG Tablet PO (09:06)
--- NOTE | 2020-03-20 10:35 | PCM.DC.SUM ---
Discharge Date and Diagnosis - Problem List Patient Problems: Active and Suspected Problems Pneumonia due to COVID-19 virus (Acute) Severe sepsis (Acute) Hypoxia (Acute) Elevated BP without diagnosis of hypertension (Acute) Date of Admission: 03/19/20 Date of Discharge: 03/20/20 - Primary Discharge Diagnosis Acute Problems: Active Problems Pneumonia due to COVID-19 virus (Acute) Severe sepsis (Acute) Hypoxia (Acute) Elevated BP without diagnosis of hypertension (Acute) - Secondary Discharge Diagnosis Chronic Problems: Chronic Problems BPH (benign prostatic hyperplasia) (Chronic) Hyperlipidemia (Chronic) Hospital Course and Treatment Summary of Care Provided: [] The patient is a 74 y/o M was admitted with mild headache, mild cough with a diagnosis of COVID-19 by PCR on 03/12. Patient had confusion after monoclonal antibody infusion on 03/18 prior to admission. No significant dyspnea. 1. Acute Encephalopathy secondary to severe sepsis from, left lower lobe COVID-19 pneumonia: Patient admitted on Covid cohort floor. Started on IV Decadron and remdesivir. Monoclonal antibody not contraindication for remdesivir. Inflammatory markers are elevated. Lactic acid was elevated 2.5, repeat normal. Inflammatory markers LDH, CRP, D-dimer and procalcitonin are elevated. CT head does not show acute intracranial pathology. Chest x-ray individually reviewed and shows mild haziness/streak in the mid and left lower lung suggestive of possible scarring or atelectasis or pneumonic infiltrate. On Lovenox 30 mg subcut twice daily. Patient not hypoxic, tachypneic, dyspneic. Patient pulse ox 98% on room air and 98% ambulating on room air. Patient is doing good on incentive spirometry. 2. Elevated BP without hypertensive history, new onset essential hypertension: Blood pressure is elevated in ED 173/85. Blood pressure fluctuates it was 113/68 but again went up 158/84. Started on HCTZ 12.5 mg daily. 3. Hyperlipidemia: continue patient home statin therapy. 4. BPH: Not taking Flomax. 5. Hyperglycemia: Admission glucose 151, A1c 5.9 suggestive of prediabetes 6. DVT prophylaxis: SCDs, Lovenox. 7. CODE status: Full code. On 03/19 I talked to the patient's son, Mr. Sanchez and gave the clinical update. Discharge medication reconciliation done. Discharge follow-up instructions completed. Discharge process discussed with the patient and all questions were answered to patient's satisfaction. Prescriptions for Decadron, Eliquis 2.5 mg twice daily for 2 weeks and HCTZ sent to the patient's pharmacy. Total time spent, exact 35 minutes on discharge meds reconciliation, examination, coordination of care with nurses and ancillary staff, review of imaging and blood test and discussion with the patient on follow-up instructions Patient Problems: Active and Suspected Problems Pneumonia due to COVID-19 virus (Acute) Severe sepsis (Acute) Hypoxia (Acute) Elevated BP without diagnosis of hypertension (Acute) Objective: Patient vital signs are normal. Pulse ox 98 on room air. 98% on room air on ambulation. Patient did 2500 mL on incentive spirometry Physical exam General: Alert, Oriented x3, Cooperative HEENT: Atraumatic, PERRLA, EOMI, Normocephalic Oral: No Gingival or Mucosal Lesions/ Ulcerations Neck: Supple, No JVD, Negative Carotid Bruits Lungs: Air entry equal in bilateral lung bases. No crepitation/rhonchi Cardiovascular: Regular rate, Regular Rhythm, Normal S1, Normal S2, No murmurs Abdomen: Bowel Sounds Present, Soft, Non Tender, Non-Distended : No renal angle tenderness. No suprapubic tenderness. Extremities: No edema, Capillary Refill Less than 3 Seconds Skin: No rashes, No breakdown Musculoskeletal: No Tenderness to Palpation of Joints or Extremities Neurological: Cranial nerves II-XII grossly intact, Deep Tendon Reflexes 2+/4 and Symmetrical, Neuro grossly intact Psych/Mental Status: Normal Affect, Appropriate. - Physical Exam Vitals/I&O's: Vital Signs Temp Pulse Resp BP Pulse Ox 96.8 F L 74 18 147/88 H 98 03/20/20 02:36 03/20/20 07:01 03/20/20 02:36 03/20/20 04:55 03/20/20 02:36 Oxygen Flow Rate (L/min) 2 Oxygen Delivery Method Room Air Weight: 217 lb 13.067 oz Body Mass Index (BMI) 29.4 Intake and Output for Last 24 Hours 03/18/20 03/19/20 03/20/20 23:59 23:59 23:59 Intake Total 1541.67 / 2041.67 500 / 500 Balance 1541.67 / 2041.67 500 / 500 Microbiology Past 72 Hours 03/19/20 05:55 Mucosa - Nasopharyngeal Respiratory Panel (PCR) - Final 03/19/20 Unknown Urine, Clean Catch Legionella Antigen - Final 03/19/20 Unknown Urine, Clean Catch Streptococcus pneumoniae Antigen (M - Final Laboratory Results 03/20/20 06:08: WBC 7.6, RBC 4.64, Hgb 13.2, Hct 39.0 L, MCV 84.1, MCH 28.4, MCHC 33.8, RDW Std Deviation 41.9, RDW Coeff of [place] 13.6, Plt Count 178, MPV 10.9 03/20/20 06:08: Sodium 142, Potassium 3.9, Chloride 109 H, Carbon Dioxide 25.0, Anion Gap 8, BUN 17, Creatinine 0.71, Estim Creat Clear Calc 75.46, Est GFR (MDRD) Af Amer 141, Est GFR (MDRD) Non-Af 117, BUN/Creatinine Ratio 24.1 H, Glucose 120 H, Calcium 8.9, Total Bilirubin 0.50, AST 14 L, ALT 32, Alkaline Phosphatase 70, Total Protein 6.5, Albumin 3.1 L, Globulin 3.4, Albumin/Globulin Ratio 0.9 Current Medications Acetaminophen (Acetaminophen 325 Mg Tablet) 650 mg PO Q6H PRN PRN PRN Reason: Pain Score 1-10/Temp > 100.7 F Al Hydroxide/Mg Hydroxide (Mag Hydrox/Al Hydrox/Simeth 30 Ml Udc) 30 ml PO Q6H PRN PRN PRN Reason: Gastric Burning Albuterol Sulfate (Albuterol Ih 8.5 Gm (Proair) Inhaler (200 Puffs)) 4 - 8 puff INHALATION Q4H PRN PRN PRN Reason: Dyspnea, wheezing Atorvastatin Calcium (Atorvastatin Calcium 20 Mg Tablet) 20 mg PO DAILY [facility] Last Admin: 03/19/20 08:38 Dose: 20 mg Documented by: Dexamethasone (Dexamethasone 4 Mg Tablet) 6 mg PO DAILY [facility] Stop: 03/28/20 10:01 Enoxaparin Sodium (Enoxaparin 30 Mg/0.3 Ml Syringe) 30 mg SC BID [facility] Last Admin: 03/19/20 20:30 Dose: 30 mg Documented by: Famotidine (Famotidine 20 Mg Tablet) 20 mg PO BID [facility] Last Admin: 03/19/20 20:30 Dose: 20 mg Documented by: Guaifenesin (Guaifenesin 10 Ml Udc (200mg/10ml)) 20 ml PO Q4H PRN PRN PRN Reason: COUGH Hydralazine HCl (Hydralazine 20 Mg/Ml Vial) 10 mg IV Q4H PRN PRN PRN Reason: SBP > 160 Last Admin: 03/20/20 03:16 Dose: 10 mg Documented by: Hydrochlorothiazide (Hydrochlorothiazide 25 Mg Tablet) 12.5 mg PO DAILY [facility] Last Admin: 03/19/20 15:42 Dose: 12.5 mg Documented by: Remdesivir 100 mg/ Sodium (Chloride) 250 mls @ 125 mls/hr IV DAILY [facility] Stop: 03/23/20 11:59 Sodium Chloride () 250 mls @ 15 mls/hr IV .[id number] PRN PRN Reason: Saline Flush Ibuprofen (Ibuprofen 400 Mg Tablet) 400 mg PO Q4H PRN PRN PRN Reason: Pain Score 1-10/Temp > 100.7 F Magnesium Hydroxide (Magnesium Hydroxide 30 Ml Udc) 30 ml PO DAILY PRN PRN PRN Reason: Constipation Melatonin (Melatonin 3 Mg Tablet) 3 mg PO QHS PRN PRN PRN Reason: INSOMNIA Ondansetron HCl (Ondansetron 4 Mg/2 Ml Vial) 4 mg IV Q8H PRN PRN PRN Reason: NAUSEA/VOMITING Prochlorperazine Edisylate (Prochlorperazine 10 Mg/2 Ml Vial) 5 mg IV Q4H PRN PRN PRN Reason: Breakthrough nausea/vomiting Psyllium Hydrophilic Mucilloid (Psyllium 1 Packet) 1 packet PO DAILY PRN PRN PRN Reason: Constipation Senna/Docusate Sodium (Senna/Docusate Sodium 1 Tablet) 2 tablet PO BID PRN PRN PRN Reason: Constipation Sodium Chloride (0.9% Saline Lock 10 Ml Syringe) 10 - 40 ml IV UD PRN PRN Reason: SALINE FLUSH Last Admin: 03/19/20 08:39 Dose: 10 ml Documented by: Throat Lozenges (Benzocaine/Menthol 1 Lozenge) 1 lozenge MUCOUS MEM Q2H PRN PRN PRN Reason: SORE THROAT Home Medications: Medications to take at Discharge atorvastatin 10 mg tablet 20 mg PO DAILY tab 03/17/20 Dexamethasone [Decadron] 6 mg PO DAILY 8 Days #8 tab 03/20/20 Hydrochlorothiazide [Hctz] 12.5 mg PO DAILY #30 tab 03/20/20 Following Prescriptions Were Given to Patient: Dexamethasone [Decadron] 6 mg PO DAILY 8 Days #8 tab Transmission Status: Received by [facility] [id number] Hydrochlorothiazide [Hctz] 12.5 mg PO DAILY #30 tab Transmission Status: Received by [facility] [id number] Primary Care Physician: Moiz Tobias MD [Primary Care Provider] - Medical Necessity - Tobacco Use Smoking Status: Never smoker Tobacco Use: Non-smoker Meaningful Use Info Meaningful Use Diagnoses (Choose all that apply): None applicable OBSV E&M: 60735 Observation care discharge
--- NOTE | 2020-03-20 10:35 | DCINST_ITS ---
- Discharge Diagnoses Current Active Problems: Current Active and Chronic Problems Pneumonia due to COVID-19 virus (Acute) Severe sepsis (Acute) Hypoxia (Acute) Elevated BP without diagnosis of hypertension (Acute) BPH (benign prostatic hyperplasia) (Chronic) Hyperlipidemia (Chronic) You will use the following diet at home:: Cardiac - 2 gm salt diet Your food should be the consistency of: Regular Discharge Activity: May Not Drive Weight Bearing Status: Weight bearing as tolerated Call your doctor if you observe: Fever of 101 or Higher, Coldness, Increased Pain, Numbness or Tingling, Change in Color, Inability to urinate, Inability to have a bowel movement, Shortness of breath, Dizziness, Fainting spells, Swelling in the ankles, Chest pain, Prolonged hiccoughing, Increased palpitations (irregular heartbeat), Calf discomfort Additional Instructions: Home quarantine for 14 days from 03/16/2020 Allergies/Adverse Reactions: Allergies No Known Allergies Allergy (Verified 03/18/20 21:33) Medications to take at Discharge atorvastatin 10 mg tablet 20 mg PO DAILY tab 03/17/20 Dexamethasone [Decadron] 6 mg PO DAILY 8 Days #8 tab 03/20/20 Hydrochlorothiazide [Hctz] 12.5 mg PO DAILY #30 tab 03/20/20 The following prescriptions were given: Dexamethasone [Decadron] 6 mg PO DAILY 8 Days #8 tab Transmission Status: Pending to [facility] [id number] Hydrochlorothiazide [Hctz] 12.5 mg PO DAILY #30 tab Transmission Status: Pending to [facility] [id number] Primary Care Physician: Moiz Tobias MD [Primary Care Provider] - Please follow up with your Primary Care Physician in: in 2 weeks Test Results: Test results from this visit will be discussed in further detail at your follow- up appointment, if applicable.
== END 2020-03-20 13:20 | disposition home or self-care (01) ==
LOC: ED 03-19 00:33 → MS2 03-19 01:21
PROVIDERS: Internal Medicine Infectious Disease; Admitting Provider Family Medicine; Emergency Provider Emergency Medicine; PCP Family Medicine; Visit Provider Internal Medicine
DX: U07.1 COVID-19 (principal); J12.82 Pneumonia due to coronavirus disease 2019; A41.89 Other specified sepsis; R09.02 Hypoxemia; N40.0 Benign prostatic hyperplasia without lower urinary tract symptoms; E78.5 Hyperlipidemia, unspecified; R65.20 Severe sepsis without septic shock; G93.41 Metabolic encephalopathy; R73.9 Hyperglycemia, unspecified; I10 Essential (primary) hypertension; Z79.899 Other long term (current) drug therapy; R94.31 Abnormal electrocardiogram [ECG] [EKG]; R06.00 Dyspnea, unspecified
CPT/HCPCS: 36415; 70450; 71045; 80053; 81001; 82728; 83036; 83605; 83615; 83735; 83880; 84075; 84145; 84484; 85025; 85027; 85379; 85610; 85730; 86140; 87040; 87086; 87449; 87633; 93005; 96361; 96372; 96374; 96375; 96376; 99218; 99251; 99285; J7030; J7050; A4216; G0378; G0463

== ENCOUNTER 2020-06-17 08:11 | Outpatient (RCR) | payer MEDICARE, OTHER, SELFPAY ==
[2020-03-19 02:43] VITALS: BMI 29.4
== END 2020-07-27 23:59 ==
LOC: IMMUN 08:11
PROVIDERS: PCP Family Medicine; Referring Provider Family Medicine; Visit Provider Family Medicine
DX: Z23 Encounter for immunization (principal)
CPT/HCPCS: 0001A; 0002A; 91300

== ENCOUNTER 2021-02-22 15:08 | Outpatient (CLI) | payer MEDICARE, OTHER, SELFPAY ==
[2021-02-22 18:41] LABS: ALB/GLOB Ratio 0.8 RATIO (0.9-2.4); AST(SGOT) 7 U/L (15-37); Alanine Aminotransfer ALT/SGPT 27 U/L (16-61); Albumin, Serum 3.3 g/dL (3.2-5.0); Alkaline Phosphatase 85 U/L (45-117); Anion Gap 9 (5-15); BUN 23 mg/dL (7-18); Calcium,Total 8.9 mg/dL (8.5-10.1); Chloride 104 mmol/L (98-107); Creatinine, Serum 0.88 mg/dL (0.70-1.30); EST Glomerular Filtration Rate 90 mL/min (>60); Est Glom Filt Rate - Afr Amer 108 mL/min (>60); Globulin 3.9 g/dL (2.2-4.2); Glucose 99 mg/dL (74-106); Potassium 4.2 mmol/L (3.5-5.1); Protein, Total 7.2 g/dL (6.4-8.2); Sodium Level 139 mmol/L (136-145)
== END 2021-02-22 23:59 | disposition short-term general hospital (02) ==
LOC: MTLAB 15:25
PROVIDERS: PCP Family Medicine; Referring Provider Family Medicine; Visit Provider Family Medicine
DX: I10 Essential (primary) hypertension (principal)
CPT/HCPCS: 36415; 80053

== ENCOUNTER 2021-02-23 08:24 | Outpatient (CLI) | payer MEDICARE, OTHER, SELFPAY | END 2021-02-23 23:59 | disposition short-term general hospital (02) | LOC: LABSPEC 08:26 | PROVIDERS: PCP Family Medicine; Visit Provider Physician Assistant | DX: Z11.52 Encounter for screening for COVID-19 (principal) | CPT/HCPCS: 87635; U0003; U0005 ==

== ENCOUNTER 2023-06-04 19:02 | Inpatient (IN) | payer MEDICARE, SELFPAY ==
[2023-06-04] VITALS (21 sets, daily range): BP systolic 79–138; BP diastolic 47–76; PULSE 75–88; RESP 12–20; TEMP 36.1–36.9; O2SAT 93–100; BMI 26.8; BMI 26.2
--- NOTE | 2023-06-04 19:45 | CT_ITS ---
STUDY: CT BRAIN WITHOUT CONTRAST REASON FOR EXAM: Male, 77 years old. Confusion RADIATION DOSAGE (If Supplied By Facility): CTDIvol = ( 44.99 ) mGy, DLP = ( 897.35 ) mGycm TECHNIQUE: Transaxial CT imaging of the brain was performed without administration of intravenous contrast material. Individualized dose optimization techniques were used for this CT. COMPARISON: March 16, 2020. FINDINGS: Normal soft tissue structures. Normal calvarium. Calcific plaquing of the cavernous carotids Atrophy and mild periventricular white matter ischemic changes. Normal basal ganglia and thalami. Normal brainstem. Normal cerebellum. There is no intracranial hemorrhage. There are no findings of an acute ischemic infarction. Normal visualized paranasal sinuses. CT/Brain/Head without Contrast IMPRESSION: Atrophy and mild periventricular white matter ischemic change. No acute bleed. If concern for acute infarct MRI recommended. Electronically Signed: Danilo Abarca MD at 20:59 EDT ,
--- NOTE | 2023-06-04 19:46 | EKG12_ITS ---
Test Reason : DYSRHYTHMIA Blood Pressure : / mmHG Vent. Rate : 079 BPM Atrial Rate : 079 BPM P-R Int : 172 ms QRS Dur : 096 ms QT Int : 376 ms P-R-T Axes : 042 -52 074 degrees QTc Int : 431 ms Normal sinus rhythm Left anterior fascicular block Cannot rule out Anterior infarct , age undetermined Abnormal ECG Confirmed by GABRIELA CHOE MD ([id number]), fan mail editor MACARIO MONAHAN ([id number]) on 06/05/2023 8:28:50 AM Referred By: Confirmed By:GABRIELA CHOE MD
--- NOTE | 2023-06-04 19:46 | CT_ITS ---
STUDY: CT ABDOMEN AND PELVIS WITH CONTRAST REASON FOR EXAM: Male, 77 years old. abdominal pain RADIATION DOSAGE (If Supplied By Facility): CTDIvol = ( 18.30 ) mGy, DLP = ( 1278.37 ) mGycm TECHNIQUE: Transaxial images were obtained from the dome of the diaphragm to the symphysis pubis without oral contrast. IV 100mL Isovue-[id number] was administered. Sagittal and coronal images were reconstructed. Individualized dose optimization techniques were used for this CT. COMPARISON: None. FINDINGS: Minor bibasilar interstitial thickening.. Heart is enlarged and there is mild coronary artery calcification. Liver is normal in size. There is a small cyst in the left and right lobes. Bile ducts are nondilated. Normal gallbladder and extrahepatic biliary system. Normal spleen. Normal pancreas. Normal bilateral adrenal glands. Normal right kidney. Normal left kidney. Normal visualized stomach. Nonspecific ileus pattern.. Diverticular changes of the descending colon without evidence for acute diverticulitis. There is no evidence for acute appendicitis Atherosclerotic changes of the aorta.. Normal inferior vena cava. Normal retroperitoneum. Nonspecific bladder distention Small fat-containing right inguinal hernia Postsurgical changes status post bilateral pelvic ventral wall herniorrhaphy. Lumbar spine demonstrates degenerative change CT/Abdomen/Pelvis W IV Cont ONLY IMPRESSION: Nonspecific ileus. Diverticular disease of the descending colon without evidence for acute diverticulitis No evidence for small bowel obstruction or acute appendicitis Electronically Signed: Danilo Abarca MD at 21:09 EDT ,
--- NOTE | 2023-06-04 19:47 | EDS_ITS ---
HPI History of Present Illness Chief Complaint: Syncope Narrative Narrative: 77-year-old male past medical history of hyperlipidemia, high blood pressure, and early dementia presents with his friend and his son because of increased confusion, near syncope, nausea, and jaundice. His friend states that patient was not answering any text recalls this morning. He went over to check on him and had to knock on the window. He thought maybe that the patient had been taking a nap. To the patient's friend, patient appeared yellow to grayish in color, and seems more confused than usual. Patient relates history that over the last few days he has been nauseated and felt off. He denies any chest pain or shortness of breath. His son states that while he has early dementia, he has never been like this where he is confused. [facility] Medical History (Updated 06/04/23 @ 20:36 by Ronak Gauthier MD) Colon polyps Herniated disc Hyperlipidemia Hypertension Inguinal hernia Macular degeneration Home Medications atorvastatin 10 mg tablet 20 mg PO DAILY 03/17/20 [History Last Taken 06/04/23] amlodipine 2.5 mg tablet 2.5 mg PO DAILY 06/04/23 [History Last Taken 06/04/23] donepezil 5 mg tablet 5 mg PO DAILY 06/04/23 [History Last Taken 06/04/23] hydrochlorothiazide 12.5 mg capsule 25 mg PO DAILY 06/04/23 [History Last Taken 06/04/23] lisinopril 40 mg tablet 40 mg PO DAILY 06/04/23 [History Last Taken 06/04/23] Allergy/AdvReac Type Severity Reaction Status Date / Time No Known Allergies Allergy Verified 06/04/23 19:04 Family History (Updated 06/04/23 @ 22:[address] Matthew Snow MD) Other CVA (cerebral vascular accident) Surgical History (Updated 06/04/23 @ 22:[address] Matthew Snow MD) Status post inguinal hernia repair Social History Smoking Status: Never smoker ROS ROS ED ROS Narrative Constitutional: No fever, no chills. HEENT: No sore throat. No neck pain. No loss of vision. No rhinorrhea. Cardiovascular: No chest pain. No palpitations. No pedal edema. Respiratory: No cough, no shortness of breath. Abdominal: Intermittent diffuse abdominal pain. Positive nausea. No vomiting. No diarrhea. Genitourinary: No dysuria. No hematuria. Musculoskeletal: No myalgias. No arthralgias. Neurologic: No headaches. No dizziness. Positive lightheadedness and near syncope. Skin: No rash. Appears jaundiced to friend and son. Psychiatric: No depression. No anxiety. EXAM Physical Exam Narrative Exam Narrative: Afebrile. Vital signs noted. HEENT: Normocephalic. Atraumatic. PERRL, EOMI. Neck soft and supple. No point tenderness or step off. Mild jaundice, with scleral icterus present. Cardiovascular: Regular rate and rhythm. No murmurs, rubs, or gallops appreciated. Respiratory: No tachypnea. Lungs clear to auscultation bilaterally. Gastrointestinal: Abdomen soft, nontender, with normoactive bowel sounds. No rebound or guarding. Neurological: Awake. Alert. Oriented to person, place, year, and month. Mildly confused when asked age. Nonfocal, nonlateralizing. Skin: No rash. Normal color. No pallor. Musculoskeletal: No pedal edema. Full range of motion extremities. Const Vital Signs: 06/04/23 19:04 06/04/23 19:06 06/04/23 19:37 Temperature 97 F L Temperature Source Temporal Pulse Rate 84 79 Pulse Rate [Lying] Pulse Rate [Sitting (for 1 minute prior to obtaining)] Pulse Rate [Standing (for 1 minute prior to obtaining)] Respiratory Rate 18 12 Respiratory Effort Normal Respiratory Pattern Normal Blood Pressure 100/47 L 104/59 L Blood Pressure [Lying] Blood Pressure [Sitting (for 1 minute prior to obtaining)] Blood Pressure [Standing (for 1 minute prior to obtaining)] Blood Pressure Mean 64 74 Blood Pressure Mean [Lying] Blood Pressure Mean [Sitting (for 1 minute prior to obtaining)] Blood Pressure Mean [Standing (for 1 minute prior to obtaining)] Blood Pressure Source Blood Pressure Position Blood Pressure Location Pulse Ox 100 93 Oxygen Delivery Method Room Air Room Air 06/04/23 20:02 06/04/23 21:15 06/04/23 22:19 Temperature 98.4 F 98.5 F Temperature Source Oral Pulse Rate 86 82 Pulse Rate [Lying] 85 Pulse Rate [Sitting (for 1 minute prior to obtaining)] 77 Pulse Rate [Standing (for 1 minute prior to obtaining)] 87 Respiratory Rate 15 14 Respiratory Effort Respiratory Pattern Blood Pressure 123/76 H 122/62 H Blood Pressure [Lying] 101/60 Blood Pressure [Sitting (for 1 minute prior to obtaining)] 86/54 L Blood Pressure [Standing (for 1 minute prior to obtaining)] 79/67 L Blood Pressure Mean 91 82 Blood Pressure Mean [Lying] 73 Blood Pressure Mean [Sitting (for 1 minute prior to obtaining)] 64 Blood Pressure Mean [Standing (for 1 minute prior to obtaining)] 71 Blood Pressure Source Monitor Blood Pressure Position Semi-Fowlers Blood Pressure Location Right Arm Pulse Ox 95 98 Oxygen Delivery Method Room Air 06/04/23 22:33 06/04/23 19:39 06/04/23 19:45 Temperature 98.4 F Temperature Source Oral Pulse Rate 85 79 81 Pulse Rate [Lying] Pulse Rate [Sitting (for 1 minute prior to obtaining)] Pulse Rate [Standing (for 1 minute prior to obtaining)] Respiratory Rate 16 14 18 Respiratory Effort Respiratory Pattern Blood Pressure 138/75 H 89/64 L Blood Pressure [Lying] Blood Pressure [Sitting (for 1 minute prior to obtaining)] Blood Pressure [Standing (for 1 minute prior to obtaining)] Blood Pressure Mean 96 70 Blood Pressure Mean [Lying] Blood Pressure Mean [Sitting (for 1 minute prior to obtaining)] Blood Pressure Mean [Standing (for 1 minute prior to obtaining)] Blood Pressure Source Monitor Blood Pressure Position Semi-Fowlers Blood Pressure Location Right Arm Pulse Ox 98 98 Oxygen Delivery Method Room Air 06/04/23 20:00 06/04/23 20:06 06/04/23 20:15 Temperature Temperature Source Pulse Rate 80 78 75 Pulse Rate [Lying] Pulse Rate [Sitting (for 1 minute prior to obtaining)] Pulse Rate [Standing (for 1 minute prior to obtaining)] Respiratory Rate 20 H 16 15 Respiratory Effort Respiratory Pattern Blood Pressure 79/67 L 101/60 117/64 Blood Pressure [Lying] Blood Pressure [Sitting (for 1 minute prior to obtaining)] Blood Pressure [Standing (for 1 minute prior to obtaining)] Blood Pressure Mean 73 74 79 Blood Pressure Mean [Lying] Blood Pressure Mean [Sitting (for 1 minute prior to obtaining)] Blood Pressure Mean [Standing (for 1 minute prior to obtaining)] Blood Pressure Source Blood Pressure Position Blood Pressure Location Pulse Ox 98 Oxygen Delivery Method Room Air 06/04/23 20:30 06/04/23 20:45 06/04/23 21:04 Temperature Temperature Source Pulse Rate 77 Pulse Rate [Lying] Pulse Rate [Sitting (for 1 minute prior to obtaining)] Pulse Rate [Standing (for 1 minute prior to obtaining)] Respiratory Rate 16 Respiratory Effort Respiratory Pattern Blood Pressure 104/55 L 125/75 H Blood Pressure [Lying] Blood Pressure [Sitting (for 1 minute prior to obtaining)] Blood Pressure [Standing (for 1 minute prior to obtaining)] Blood Pressure Mean 69 91 Blood Pressure Mean [Lying] Blood Pressure Mean [Sitting (for 1 minute prior to obtaining)] Blood Pressure Mean [Standing (for 1 minute prior to obtaining)] Blood Pressure Source Blood Pressure Position Blood Pressure Location Pulse Ox 100 100 Oxygen Delivery Method Room Air 06/04/23 21:15 Temperature Temperature Source Pulse Rate 88 Pulse Rate [Lying] Pulse Rate [Sitting (for 1 minute prior to obtaining)] Pulse Rate [Standing (for 1 minute prior to obtaining)] Respiratory Rate 18 Respiratory Effort Respiratory Pattern Blood Pressure 123/76 H Blood Pressure [Lying] Blood Pressure [Sitting (for 1 minute prior to obtaining)] Blood Pressure [Standing (for 1 minute prior to obtaining)] Blood Pressure Mean 92 Blood Pressure Mean [Lying] Blood Pressure Mean [Sitting (for 1 minute prior to obtaining)] Blood Pressure Mean [Standing (for 1 minute prior to obtaining)] Blood Pressure Source Blood Pressure Position Blood Pressure Location Pulse Ox 97 Oxygen Delivery Method Room Air MDM MDM MDM Narrative Medical decision making narrative: In the differential diagnosis is dementia versus hepatic encephalopathy. First time he has been jaundiced. I will obtain CBC and CMP. Also check for signs of infection with a chest x-ray to rule out pneumonia, and obtain a urinalysis to rule out urinalysis. He could be dehydrated or have intravascular volume depletion as he has borderline hypotension with systolic blood pressure of 100 and 104. He will be bolused normal saline. Given his new onset jaundice as well, do feel CT imaging of the abdomen should be obtained because he states that sometimes he is nauseated and gets abdominal pain in different areas. EKG was obtained and interpreted by myself independently as normal sinus rhythm at 79 bpm without ectopy or acute ST changes. No STEMI. Initially, the first thing that returned and I reviewed as part of his laboratory workup was his CBC which shows elevated white count of 13.0 which I think is nonspecific but of most significance is a hemoglobin of 6.3, hematocrit 18.9 with platelet count normal at 202. He has a normal MCV of 90. When requestioned, patient states that he had black stool a few days ago. He was consented for transfusion as concern is now for GI bleed. His discoloration could be more pallor from his low hemoglobin. I reviewed his CMP which shows sodium normal at 142, potassium 4.1, chloride of 111 which I think is nonspecific, BUN is elevated at 105 consistent with GI bleeding and creatinine elevated at 1.49 consistent with acute kidney injury. AST is low, and ALT normal. Ammonia level is normal at 11 so I do not think he has a hepatic encephalopathy. Urinalysis is negative for infection. I do not feel antibiotics are indicated. I reviewed the radiology report of the CT of the brain which shows no evidence of acute hemorrhage. Additionally I reviewed the radiology report of the CT of the abdomen pelvis which shows an ileus type pattern but no evidence of obstruction. No diverticulitis or acute appendicitis. Chaperoned rectal examination was performed which showed maroon-colored old blood, but no active brisk hemorrhage. Given that he is now GI bleed with anemia, I discussed patient with Dr. Lopes who is aware the patient. Of note, while he was here, when he went to stand he did have a syncopal episode. His orthostatics were positive. He was typed and crossmatched for blood. I discussed the patient with the hospitalist, Dr. Snow for admission. History & Record Review Discussion w/independent historian: Patient Lab Data Attestation: I reviewed the patient's lab results. Labs: Laboratory Results - last 24 hr 06/04/23 06/04/23 06/04/23 19:25 20:00 20:29 WBC 13.0 H RBC 2.09 L Hgb 6.3 L Hct 18.9 L MCV 90.4 MCH 30.1 MCHC 33.3 RDW Std Deviation 43.8 RDW Coeff of [place] 13.2 Plt Count 202 MPV 11.6 Immature Gran % (Auto) 0.500 Neut % (Auto) 83.9 H Lymph % (Auto) 10.5 L Kingman % (Auto) 4.8 Eos % (Auto) 0.1 Baso % (Auto) 0.2 Absolute Neuts (auto) 10.9 H Absolute Lymphs (auto) 1.37 Nucleated RBC % 0 Sodium 142 Potassium 4.1 Chloride 111 H Carbon Dioxide 22.0 Anion Gap 9 BUN 105 H* Creatinine 1.49 H Estim Creat Clear Calc 48.41 Est GFR (MDRD) Af Amer 59 L Est GFR (MDRD) Non-Af 49 L BUN/Creatinine Ratio 70.5 H Glucose 115 H Calcium 8.6 Total Bilirubin 0.30 AST 7 L ALT 23 Alkaline Phosphatase 46 Ammonia 11.0 Troponin I High Sens 33 Total Protein 5.4 L Albumin 3.1 L Globulin 2.3 Albumin/Globulin Ratio 1.3 Urine Color Urine Clarity Urine pH Ur Specific [place] Urine Protein Urine Glucose (UA) Urine Ketones Urine Occult Blood Urine Nitrite Urine Bilirubin Urine Urobilinogen Ur Leukocyte Esterase Urine RBC Urine WBC Ur Squamous Epith Cells Urine Bacteria Urine Mucus Blood Type A NEGATIVE Antibody Screen NEGATIVE Crossmatch See Detail 06/04/23 21:00 WBC RBC Hgb Hct MCV MCH MCHC RDW Std Deviation RDW Coeff of [place] Plt Count MPV Immature Gran % (Auto) Neut % (Auto) Lymph % (Auto) King[place] % (Auto) Eos % (Auto) Baso % (Auto) Absolute Neuts (auto) Absolute Lymphs (auto) Nucleated RBC % Sodium Potassium Chloride Carbon Dioxide Anion Gap BUN Creatinine Estim Creat Clear Calc Est GFR (MDRD) Af Amer Est GFR (MDRD) Non-Af BUN/Creatinine Ratio Glucose Calcium Total Bilirubin AST ALT Alkaline Phosphatase Ammonia Troponin I High Sens Total Protein Albumin Globulin Albumin/Globulin Ratio Urine Color Yellow Urine Clarity Clear Urine pH 6.0 Ur Specific [place] 1.015 Urine Protein Negative Urine Glucose (UA) Normal Urine Ketones Negative Urine Occult Blood Negative Urine Nitrite Negative Urine Bilirubin Negative Urine Urobilinogen Normal Ur Leukocyte Esterase Negative Urine RBC 0 SEEN Urine WBC 0 SEEN Ur Squamous Epith Cells 0-5 SEEN Urine Bacteria 0 SEEN Urine Mucus 0 SEEN Blood Type Antibody Screen Crossmatch Radiography Diagnostic Testing: Clinical Impression(s) from Imaging Studies Brain CT 06/04/23 19:45 IMPRESSION: Atrophy and mild periventricular white matter ischemic change. No acute bleed. If concern for acute infarct MRI recommended. Electronically Signed: Danilo Abarca MD at 20:59 EDT , Abdomen/Pelvis CT 06/04/23 19:46 IMPRESSION: Nonspecific ileus. Diverticular disease of the descending colon without evidence for acute diverticulitis No evidence for small bowel obstruction or acute appendicitis Electronically Signed: Danilo Abarca MD at 21:09 EDT , Chest X-Ray 06/04/23 20:28 IMPRESSION: No acute cardiopulmonary pathology. Electronically Signed: Danilo Abarca MD at 21:48 EDT , Discharge Plan Dx/Rx/DC Orders Clinical Impression: Acute kidney injury, Anemia requiring transfusions, Syncope and collapse, Orthostatic hypotension Disposition Disposition: Acute Care [facility]
[2023-06-04 20:01] LABS: Absolute Lymphocyte Count 1.37 X10^3/uL (0.83-4.51); Absolute Neutrophil Count 10.9 X10^3/uL (2.0-7.7); Basophil# 0.02 X10^3/uL; Basophil% 0.2 % (0-1); Eosinophil# 0.01 X10^3/uL; Eosinophils% 0.1 % (0-5); Hematocrit 18.9 % (40-54); Hemoglobin 6.3 g/dL (13.0-16.5); Lymphocyte # 1.37 X10^3/ul (0.83-4.51); Lymphocyte % 10.5 % (19-41); Mean Corp Hgb Conc 33.3 g/dL (32-36); Mean Corpuscular Hgb 30.1 pg (27.0-32.0); Mean Corpuscular Volume 90.4 fL (80-94); Mean Platelet Vol. 11.6 fl (6.2-12.0); Monocyte# 0.63 X10^3/uL; Monocyte% 4.8 % (0-10); NRBC Flagged by Analyzer 0 % (0-5); Neutrophil # 10.92 X10^3/uL (2.7-7.7); Neutrophil % 83.9 % (47-70); Platelet Count 202 K/mm3 (150-450); RBC Distribution Width CV 13.2 % (11.6-14.6); RBC Distribution Width SD 43.8 fl (35.1-43.9); Red Blood Count 2.09 M/mm3 (4.6-6.2)
[2023-06-04] MEDS: 0.9% Normal Saline (1000mL) 1,000 ML 999 ML IV (20:10)
--- NOTE | 2023-06-04 20:12 | ED.RN ---
ED Registration called this RN to bedside for pt being unresponsive. This RN found patient being held up by 2 family members at bedside. Pt. had got up to use urinal and had a syncopal episode. Pt. was pale, diaphoretic confused and hypotensive. Pt. was laid back into bed with no injury during event. Patient vitals charted and became alert and oriented approx 2 minutes later.
--- NOTE | 2023-06-04 20:28 | RAD_ITS ---
STUDY: X-RAY CHEST REASON FOR EXAM: Male, 77 years old. cad TECHNIQUE: AP portable COMPARISON: None. FINDINGS: The lungs are clear and expanded. There is no demonstrated pleural abnormality. Borderline cardiomegaly Normal mediastinum and senait. Normal visualized pulmonary arteries. Normal visualized aortic arch and descending thoracic aorta. Dorsal spine demonstrates degenerative changes. Normal visualized ribs, clavicles, and shoulders. There is no demonstrated abnormality of the visualized soft tissue structures of the upper abdomen. RAD/Chest 1 View (Portable) IMPRESSION: No acute cardiopulmonary pathology. Electronically Signed: Danilo Abarca MD at 21:48 EDT ,
[2023-06-04 20:29] LABS: ALB/GLOB Ratio 1.3 RATIO (0.9-2.4); AST(SGOT) 7 U/L (15-37); Alanine Aminotransfer ALT/SGPT 23 U/L (16-61); Albumin, Serum 3.1 g/dL (3.2-5.0); Alkaline Phosphatase 46 U/L (45-117); Anion Gap 9 (5-15); BUN 105 mg/dL (7-18); BUN/Creat Ratio 70.5 RATIO (10-20); Calcium,Total 8.6 mg/dL (8.5-10.1); Chloride 111 mmol/L (98-107); Creatinine, Serum 1.49 mg/dL (0.70-1.30); EST Glomerular Filtration Rate 49 mL/min (>60); Est Glom Filt Rate - Afr Amer 59 mL/min (>60); Estimated Creatinine Clearance 48.41 ml/min; Globulin 2.3 g/dL (2.2-4.2); Glucose 115 mg/dL (74-106); Potassium 4.1 mmol/L (3.5-5.1); Protein, Total 5.4 g/dL (6.4-8.2); Sodium Level 142 mmol/L (136-145); Troponin-I HS 33 pg/mL (3.0-78.0)
[2023-06-04 21:16] LABS: Bacteria 0 SEEN /hpf (None Seen); Mucous, Urine 0 SEEN /hpf (<or=2+); Red Blood Cells-Urine 0 SEEN /hpf (0-5); White Blood Cells 0 SEEN /hpf (0-5)
[2023-06-04 21:17] LABS: Color, Urine Yellow (Yellow); Glucose, Dipstick Normal (Normal); Ketone-Dipstick Negative (Negative); Leukocyte Esterase-Dipstick Negative /ul (Negative); Nitrite-Dipstick Negative (Negative); Occult Blood-Urine Negative /ul (Negative); Protein-Dipstick Negative (Negative); Specific Gravity, Urine 1.015 (1.002-1.030); Urine Bilirubin Dipstick Negative (Negative); Urine Clarity Clear (Clear); Urine Urobilinogen Normal (Normal)
[2023-06-04 21:29] LABS: Squamous Epithelial Cells - UA 0-5 SEEN /hpf (0-5)
--- NOTE | 2023-06-04 22:37 | HP.PCM.HOS_ITS ---
HPI - General General Date of Admission: 06/04/23 HPI Narrative AMBER SNIDER, is a 77 M who presents to the hospital concerning initially for increased confusion. He was recently diagnosed with dementia and is currently in the stage of being worked up though he is on donepezil. His only medical history is hypertension and hyperlipidemia. He lives alone and family is attempted to get a hold of him and they could not get a hold of them so they went over to the house and had to knock on the window in order to get his attention. He appeared more pale and confused than normal and when he presented to the hospital he was found to have a hemoglobin of 6.3. He denies any vomiti ng or real abdominal pain until today. He did state that he had a darker stool a day or 2 ago but otherwise does not take any blood thinners or aspirin. He does have some hip pain but only started taking NSAIDs yesterday per history from him and family at bedside. In the ER he was found to have a leukocytosis of 13 with a hemoglobin of 6.3 and a new SERAFIN to 1.49 with a BUN of 105 consistent with an upper GI bleed. No infectious etiology is noted and his elevated white blood cell count was felt to be due to an reaction to his anemia. He was started his transfusion in the ER and will receive a total of 2 units this evening. The case was discussed with GI. [facility] Medical History (Updated 06/05/23 @ 00:[address] Matthew Snow MD) Colon polyps Dementia Herniated disc Hyperlipidemia Hypertension Inguinal hernia Macular degeneration Home Medications atorvastatin 10 mg tablet 20 mg PO DAILY 03/17/20 [History Last Taken 06/04/23] amlodipine 2.5 mg tablet 2.5 mg PO DAILY 06/04/23 [History Last Taken 06/04/23] donepezil 5 mg tablet 5 mg PO DAILY 06/04/23 [History Last Taken 06/04/23] hydrochlorothiazide 12.5 mg capsule 25 mg PO DAILY 06/04/23 [History Last Taken 06/04/23] lisinopril 40 mg tablet 40 mg PO DAILY 06/04/23 [History Last Taken 06/04/23] Allergy/AdvReac Type Severity Reaction Status Date / Time No Known Allergies Allergy Verified 06/04/23 19:04 Family History (Updated 06/04/23 @ 22:[address] Matthew Snow MD) Other CVA (cerebral vascular accident) Surgical History (Updated 06/04/23 @ 22:[address] Matthew Snow MD) Status post inguinal hernia repair Social History Smoking Status: Never smoker ROS Constitutional Constitutional: Denies chills, fatigue, fever(s) or malaise Eyes Eyes: Denies blurry vision ENT HEENT: Denies headache(s) or nasal discharge Cardiovascular Cardiovascular: Denies chest pain, dyspnea on exertion or syncope Respiratory/Chest Respiratory/Chest: Denies cough, shortness of breath at rest or shortness of breath with exertion Gastrointestinal Gastrointestinal: Reports abdominal pain and nausea; Denies constipation, diarrhea, hematemesis or vomiting Genitourinary Genitourinary: Denies dysuria Neurologic Neurologic: Denies focal weakness, numbness or tremor(s) Psychiatric Psychiatric: Denies anxiety or depression Vital Signs Vital Signs Vital Signs: 06/04/23 19:04 06/04/23 19:06 06/04/23 19:37 Temperature 97 F L Temperature Source Temporal Pulse Rate 84 79 Pulse Rate [Lying] Pulse Rate [Sitting (for 1 minute prior to obtaining)] Pulse Rate [Standing (for 1 minute prior to obtaining)] Respiratory Rate 18 12 Respiratory Effort Normal Respiratory Pattern Normal Blood Pressure 100/47 L 104/59 L Blood Pressure [Lying] Blood Pressure [Sitting (for 1 minute prior to obtaining)] Blood Pressure [Standing (for 1 minute prior to obtaining)] Blood Pressure Mean 64 74 Blood Pressure Mean [Lying] Blood Pressure Mean [Sitting (for 1 minute prior to obtaining)] Blood Pressure Mean [Standing (for 1 minute prior to obtaining)] Blood Pressure Source Blood Pressure Position Blood Pressure Location Pulse Ox 100 93 Oxygen Delivery Method Room Air Room Air 06/04/23 20:02 06/04/23 21:15 06/04/23 22:19 Temperature 98.4 F 98.5 F Temperature Source Oral Pulse Rate 86 82 Pulse Rate [Lying] 85 Pulse Rate [Sitting (for 1 minute prior to obtaining)] 77 Pulse Rate [Standing (for 1 minute prior to obtaining)] 87 Respiratory Rate 15 14 Respiratory Effort Respiratory Pattern Blood Pressure 123/76 H 122/62 H Blood Pressure [Lying] 101/60 Blood Pressure [Sitting (for 1 minute prior to obtaining)] 86/54 L Blood Pressure [Standing (for 1 minute prior to obtaining)] 79/67 L Blood Pressure Mean 91 82 Blood Pressure Mean [Lying] 73 Blood Pressure Mean [Sitting (for 1 minute prior to obtaining)] 64 Blood Pressure Mean [Standing (for 1 minute prior to obtaining)] 71 Blood Pressure Source Monitor Blood Pressure Position Semi-Fowlers Blood Pressure Location Right Arm Pulse Ox 95 98 Oxygen Delivery Method Room Air 06/04/23 22:33 06/04/23 22:35 06/04/23 19:39 Temperature 98.4 F 98.4 F Temperature Source Oral Oral Pulse Rate 85 83 79 Pulse Rate [Lying] Pulse Rate [Sitting (for 1 minute prior to obtaining)] Pulse Rate [Standing (for 1 minute prior to obtaining)] Respiratory Rate 16 16 14 Respiratory Effort Respiratory Pattern Blood Pressure 138/75 H 135/70 H Blood Pressure [Lying] Blood Pressure [Sitting (for 1 minute prior to obtaining)] Blood Pressure [Standing (for 1 minute prior to obtaining)] Blood Pressure Mean 96 91 Blood Pressure Mean [Lying] Blood Pressure Mean [Sitting (for 1 minute prior to obtaining)] Blood Pressure Mean [Standing (for 1 minute prior to obtaining)] Blood Pressure Source Monitor Monitor Blood Pressure Position Semi-Fowlers Semi-Fowlers Blood Pressure Location Right Arm Right Arm Pulse Ox 98 100 98 Oxygen Delivery Method Room Air 06/04/23 19:45 06/04/23 20:00 06/04/23 20:06 Temperature Temperature Source Pulse Rate 81 80 78 Pulse Rate [Lying] Pulse Rate [Sitting (for 1 minute prior to obtaining)] Pulse Rate [Standing (for 1 minute prior to obtaining)] Respiratory Rate 18 20 H 16 Respiratory Effort Respiratory Pattern Blood Pressure 89/64 L 79/67 L 101/60 Blood Pressure [Lying] Blood Pressure [Sitting (for 1 minute prior to obtaining)] Blood Pressure [Standing (for 1 minute prior to obtaining)] Blood Pressure Mean 70 73 74 Blood Pressure Mean [Lying] Blood Pressure Mean [Sitting (for 1 minute prior to obtaining)] Blood Pressure Mean [Standing (for 1 minute prior to obtaining)] Blood Pressure Source Blood Pressure Position Blood Pressure Location Pulse Ox 98 Oxygen Delivery Method Room Air 06/04/23 20:15 06/04/23 20:30 06/04/23 20:45 Temperature Temperature Source Pulse Rate 75 77 Pulse Rate [Lying] Pulse Rate [Sitting (for 1 minute prior to obtaining)] Pulse Rate [Standing (for 1 minute prior to obtaining)] Respiratory Rate 15 16 Respiratory Effort Respiratory Pattern Blood Pressure 117/64 104/55 L 125/75 H Blood Pressure [Lying] Blood Pressure [Sitting (for 1 minute prior to obtaining)] Blood Pressure [Standing (for 1 minute prior to obtaining)] Blood Pressure Mean 79 69 91 Blood Pressure Mean [Lying] Blood Pressure Mean [Sitting (for 1 minute prior to obtaining)] Blood Pressure Mean [Standing (for 1 minute prior to obtaining)] Blood Pressure Source Blood Pressure Position Blood Pressure Location Pulse Ox 100 Oxygen Delivery Method Room Air 06/04/23 21:04 06/04/23 21:15 Temperature Temperature Source Pulse Rate 88 Pulse Rate [Lying] Pulse Rate [Sitting (for 1 minute prior to obtaining)] Pulse Rate [Standing (for 1 minute prior to obtaining)] Respiratory Rate 18 Respiratory Effort Respiratory Pattern Blood Pressure 123/76 H Blood Pressure [Lying] Blood Pressure [Sitting (for 1 minute prior to obtaining)] Blood Pressure [Standing (for 1 minute prior to obtaining)] Blood Pressure Mean 92 Blood Pressure Mean [Lying] Blood Pressure Mean [Sitting (for 1 minute prior to obtaining)] Blood Pressure Mean [Standing (for 1 minute prior to obtaining)] Blood Pressure Source Blood Pressure Position Blood Pressure Location Pulse Ox 100 97 Oxygen Delivery Method Room Air Weight Weight: 203 lb 0.732 oz Body Mass Index (BMI) 26.8 Physical Exam Narrative general: Alert, Oriented x3, Cooperative, No apparent distress HEENT: Atraumatic, PERRLA, EOMI, Normocephalic Oral: Moist Mucosa Neck: Supple, No JVD Lungs: Diminished, Normal air movement, No rhonchi, No wheeze, No rales Cardiovascular: Regular rate, Regular Rhythm, Normal S1, Normal S2, No murmurs Abdomen: Soft, Non Tender, Non-Distended, No Hepato-splenomegaly Extremities: No edema, Capillary Refill Less than 3 Seconds Skin: No rashes, No breakdown, pale Musculoskeletal: No Tenderness to Palpation of Joints or Extremities Neurological: No focal neurological deficits, Motor Exam 5/5 strength throughout, Sensory exam intact to light touch and pain Psych/Mental Status: Normal Affect, Appropriate Results Lab / Micro Data 06/04/23 19:25 06/04/23 19:25 Labs: Laboratory Results - last 24 hr 06/04/23 19:25: WBC 13.0 H, RBC 2.09 L, Hgb 6.3 L, Hct 18.9 L, MCV 90.4, MCH 30.1, MCHC 33.3, RDW Std Deviation 43.8, RDW Coeff of [place] 13.2, Plt Count 202, MPV 11.6, Immature Gran % (Auto) 0.500, Neut % (Auto) 83.9 H, Lymph % (Auto) 10.5 L, [place] % (Auto) 4.8, Eos % (Auto) 0.1, Baso % (Auto) 0.2, Absolute Neuts (auto) 10.9 H, Absolute Lymphs (auto) 1.37, Nucleated RBC % 0, Sodium 142, Potassium 4.1, Chloride 111 H, Carbon Dioxide 22.0, Anion Gap 9, BUN 105 H*, Creatinine 1.49 H, Estim Creat Clear Calc 48.41, Est GFR (MDRD) Af Amer 59 L, Est GFR (MDRD) Non-Af 49 L, BUN/Creatinine Ratio 70.5 H, Glucose 115 H, Calcium 8.6, Total Bilirubin 0.30, AST 7 L, ALT 23, Alkaline Phosphatase 46, Troponin I High Sens 33, Total Protein 5.4 L, Albumin 3.1 L, Globulin 2.3, Albumin/Globulin Ratio 1.3 06/04/23 20:00: Ammonia 11.0 06/04/23 20:29: Blood Type A NEGATIVE, Antibody Screen NEGATIVE, Crossmatch See Detail 06/04/23 21:00: Urine Color Yellow, Urine Clarity Clear, Urine pH 6.0, Ur Specific [place] 1.015, Urine Protein Negative, Urine Glucose (UA) Normal, Urine Ketones Negative, Urine Occult Blood Negative, Urine Nitrite Negative, Urine Bilirubin Negative, Urine Urobilinogen Normal, Ur Leukocyte Esterase Negative, Urine RBC 0 SEEN, Urine WBC 0 SEEN, Ur Squamous Epith Cells 0-5 SEEN, Urine Bacteria 0 SEEN, Urine Mucus 0 SEEN Micro: Microbiology 06/04/23 21:30 Stool Stool Occult Blood (ARUN) - Final Occult Blood Positive Imaging Radiology Impression Brain CT 06/04/23 19:45 IMPRESSION: Atrophy and mild periventricular white matter ischemic change. No acute bleed. If concern for acute infarct MRI recommended. Electronically Signed: Danilo Abarca MD at 20:59 EDT , Abdomen/Pelvis CT 06/04/23 19:46 IMPRESSION: Nonspecific ileus. Diverticular disease of the descending colon without evidence for acute diverticulitis No evidence for small bowel obstruction or acute appendicitis Electronically Signed: Danilo Abarca MD at 21:09 EDT , Chest X-Ray 06/04/23 20:28 IMPRESSION: No acute cardiopulmonary pathology. Electronically Signed: Danilo Abarca MD at 21:48 EDT , Assessment & Plan Assessment/Plan (1) Upper GI bleed: PLAN: Plan 1. Acute blood loss anemia secondary to upper GI bleed/SERAFIN ? Hemoglobin 6.3, receiving 2 units of blood ordered in the ER ? Continue with Protonix ? Will consult gastroenterology for EGD ? Will recheck hemoglobin in the morning ? Does not take chronic anticoagulants or antiplatelets and according to family he only took Aleve/ibuprofen yesterday for the first time for his hip pain ? Will recheck his BMP in the morning after his 2 units of blood and if creatinine is still elevated can start IV fluids at that time 2. Essential HTN/HLD ? Blood pressure stable ? Can resume his home blood pressure medications, will hold his lisinopril and hydrochlorothiazide secondary to his SERAFIN ? Continue with Lipitor 3. Dementia ? Fairly new onset ? Currently in the workup stages ? Continue with donepezil DVT: SCDs 76 minutes was spent on direct patient care, including documentation as well as chart review and collaboration with colleagues Charges/Coding Visit Charges Inpatient E&M: 07443 Init Hosp L3
[2023-06-04] MEDS: LORazepam 2 MG/ML Syringe 0.5 MG IV (22:55)
--- NOTE | 2023-06-04 23:20 | CON.PCM.GI_ITS ---
HPI Consult Data Date of Consult: 06/05/23 HPI Narrative Reason for Consultation: GI bleed HPI Narrative: AMBER SNIDER, is a 77 M who presents to the hospital concerning initially for increased confusion. He was recently diagnosed with dementia and is currently in the stage of being worked up though he is on donepezil. His only medical history is hypertension and hyperlipidemia. He lives alone and family is attempted to get a hold of him and they could not get a hold of them so they went over to the house and had to knock on the window in order to get his attention. He appeared more pale and confused than normal and when he presented to the hospital he was found to have a hemoglobin of 6.3. He denies any vomiting or r eal abdominal pain until today. He did state that he had a darker stool a day or 2 ago but otherwise does not take any blood thinners or aspirin. He does have some hip pain but only started taking NSAIDs yesterday per history from him and family at bedside. In the ER he was found to have a leukocytosis of 13 with a hemoglobin of 6.3 and a new SERAFIN to 1.49 with a BUN of 105 consistent with an upper GI bleed. No infectious etiology is noted and his elevated white blood cell count was felt to be due to an reaction to his anemia. He was started his transfusion in the ER and will receive a total of 2 units this evening. [facility] Medical History (Updated 06/05/23 @ 00:[address] Matthew Snow MD) Colon polyps Dementia Herniated disc Hyperlipidemia Hypertension Inguinal hernia Macular degeneration Home Medications atorvastatin 10 mg tablet 20 mg PO DAILY 03/17/20 [History Last Taken 06/04/23] amlodipine 2.5 mg tablet 2.5 mg PO DAILY 06/04/23 [History Last Taken 06/04/23] donepezil 5 mg tablet 5 mg PO DAILY 06/04/23 [History Last Taken 06/04/23] hydrochlorothiazide 12.5 mg capsule 25 mg PO DAILY 06/04/23 [History Last Taken 06/04/23] lisinopril 40 mg tablet 40 mg PO DAILY 06/04/23 [History Last Taken 06/04/23] Allergy/AdvReac Type Severity Reaction Status Date / Time No Known Allergies Allergy Verified 06/04/23 19:04 Family History (Updated 06/04/23 @ 22:[address] Matthew Snow MD) Other CVA (cerebral vascular accident) Surgical History (Updated 06/04/23 @ 22:[address] Matthew Snow MD) Status post inguinal hernia repair Social History Smoking Status: Never smoker ROS Constitutional Constitutional: Denies chills, fatigue, fever(s) or malaise Eyes Eyes: Denies blurry vision ENT HEENT: Denies headache(s) or nasal discharge Cardiovascular Cardiovascular: Denies chest pain, dyspnea on exertion or syncope Respiratory/Chest Respiratory/Chest: Denies cough, shortness of breath at rest or shortness of breath with exertion Gastrointestinal Gastrointestinal: Reports abdominal pain and nausea; Denies constipation, diarrhea, hematemesis or vomiting Genitourinary Genitourinary: Denies dysuria Neurologic Neurologic: Denies focal weakness, numbness or tremor(s) Psychiatric Psychiatric: Denies anxiety or depression Physical Exam Const Constitutional Narrative: seen at nursing station in [facility]. Pleasant. Afebrile. Resp normal respiratory effort, no retractions, no use of accessory muscles and clear to auscultation bilaterally Cardio regular rate, regular rhythm, S1 normal heart sound and S2 normal heart sound GI normal to inspection, nondistended, normoactive bowel sounds, soft to palpation, non-tender and non-distended Extremity normal to inspection Lab / Micro Data 06/05/23 06:20 06/05/23 06:20 Labs: Laboratory Results - last 24 hr 06/04/23 19:25: WBC 13.0 H, RBC 2.09 L, Hgb 6.3 L, Hct 18.9 L, MCV 90.4, MCH 30.1, MCHC 33.3, RDW Std Deviation 43.8, RDW Coeff of [place] 13.2, Plt Count 202, MPV 11.6, Immature Gran % (Auto) 0.500, Neut % (Auto) 83.9 H, Lymph % (Auto) 10.5 L, [place] % (Auto) 4.8, Eos % (Auto) 0.1, Baso % (Auto) 0.2, Absolute Neuts (auto) 10.9 H, Absolute Lymphs (auto) 1.37, Nucleated RBC % 0, Sodium 142, Potassium 4.1, Chloride 111 H, Carbon Dioxide 22.0, Anion Gap 9, BUN 105 H*, Creatinine 1.49 H, Estim Creat Clear Calc 48.41, Est GFR (MDRD) Af Amer 59 L, Est GFR (MDRD) Non-Af 49 L, BUN/Creatinine Ratio 70.5 H, Glucose 115 H, Calcium 8.6, Total Bilirubin 0.30, AST 7 L, ALT 23, Alkaline Phosphatase 46, Troponin I High Sens 33, Total Protein 5.4 L, Albumin 3.1 L, Globulin 2.3, Albumin/Globulin Ratio 1.3 06/04/23 20:00: Ammonia 11.0 06/04/23 20:29: Blood Type A NEGATIVE, Antibody Screen NEGATIVE, Crossmatch See Detail 06/04/23 21:00: Urine Color Yellow, Urine Clarity Clear, Urine pH 6.0, Ur Specific [place] 1.015, Urine Protein Negative, Urine Glucose (UA) Normal, Urine Ketones Negative, Urine Occult Blood Negative, Urine Nitrite Negative, Urine Bilirubin Negative, Urine Urobilinogen Normal, Ur Leukocyte Esterase Negative, Urine RBC 0 SEEN, Urine WBC 0 SEEN, Ur Squamous Epith Cells 0-5 SEEN, Urine Bacteria 0 SEEN, Urine Mucus 0 SEEN 06/05/23 06:20: WBC 11.9 H, RBC 2.49 L, Hgb 7.4 L, Hct 21.9 L, MCV 88.0, MCH 29.7, MCHC 33.8, RDW Std Deviation 44.5 H, RDW Coeff of [place] 14.0, Plt Count 188, MPV 11.3, Immature Gran % (Auto) 0.400, Neut % (Auto) 77.3 H, Lymph % (Auto) 15.7 L, [place] % (Auto) 6.2, Eos % (Auto) 0.2, Baso % (Auto) 0.2, Absolute Neuts (auto) 9.2 H, Absolute Lymphs (auto) 1.87, Nucleated RBC % 0, Sodium 144, Potassium 3.8, Chloride 115 H, Carbon Dioxide 26.0, Anion Gap 3 L, BUN 76 H, Cre atinine 1.15, Estim Creat Clear Calc 62.72, Est GFR (MDRD) Af Amer 80, Est GFR (MDRD) Non-Af 66, BUN/Creatinine Ratio 66.1 H, Glucose 131 H, Calcium 8.4 L Micro: Microbiology 06/04/23 21:30 Stool Stool Occult Blood (ARUN) - Final Occult Blood Positive Imaging Radiology Impression Brain CT 06/04/23 19:45 IMPRESSION: Atrophy and mild periventricular white matter ischemic change. No acute bleed. If concern for acute infarct MRI recommended. Electronically Signed: Danilo Abarca MD at 20:59 EDT , Abdomen/Pelvis CT 06/04/23 19:46 IMPRESSION: Nonspecific ileus. Diverticular disease of the descending colon without evidence for acute diverticulitis No evidence for small bowel obstruction or acute appendicitis Electronically Signed: Danilo Abarca MD at 21:09 EDT , Chest X-Ray 06/04/23 20:28 IMPRESSION: No acute cardiopulmonary pathology. Electronically Signed: Danilo Abarca MD at 21:48 EDT , Assessment & Plan Assessment/Plan (1) Upper GI bleed: PLAN: Plan 77-year-old with past medical history of hypertension, BPH, dementia who comes in with shortness of breath and melanotic stools. He discovered to have a hemoglobin of 6.3 and previously was 14. BUN/creatinine ratio was 105 or 1.4 consistent with : Acute blood loss anemia secondary to upper GI bleed/SERAFIN ? Hemoglobin 6.3, receiving 2 units of blood ordered in the ER ? Continue with Protonix -He will undergo an upper endoscopy to evaluate his upper GI tract. The patient and his family were explained alternatives, risk, benefits include not withstanding bleeding, infection, sepsis, perforation, need for discharge and . He will have an ASA of 3. Charges/Coding Visit Charges Inpatient E&M: 31962 Init Hosp L3
[2023-06-05] VITALS (10 sets, daily range): BP systolic 94–134; BP diastolic 59–99; PULSE 64–89; RESP 14–18; TEMP 36.4–37.3; O2SAT 94–100
[2023-06-05] MEDS: Pantoprazole Sodium 40 MG in 0.9% Normal Saline (100mL MB+) 100 ML 330 MG IV ×3 (01:36→20:32)
--- NOTE | 2023-06-05 02:32 | NURSING ---
Patient would not allow vitals prior to starting second unit of blood. Patient was kicking, yellow, throwing arms. Blood started.
[2023-06-05] MEDS: 0.9% Saline Lock 10 ML Syringe IV (06:16)
[2023-06-05 06:56] LABS: Absolute Lymphocyte Count 1.87 X10^3/uL (0.83-4.51); Absolute Neutrophil Count 9.2 X10^3/uL (2.0-7.7); Basophil# 0.02 X10^3/uL; Basophil% 0.2 % (0-1); Eosinophil# 0.02 X10^3/uL; Eosinophils% 0.2 % (0-5); Hematocrit 21.9 % (40-54); Hemoglobin 7.4 g/dL (13.0-16.5); Lymphocyte # 1.87 X10^3/ul (0.83-4.51); Lymphocyte % 15.7 % (19-41); Mean Corp Hgb Conc 33.8 g/dL (32-36); Mean Corpuscular Hgb 29.7 pg (27.0-32.0); Mean Platelet Vol. 11.3 fl (6.2-12.0); Monocyte# 0.74 X10^3/uL; Monocyte% 6.2 % (0-10); NRBC Flagged by Analyzer 0 % (0-5); Neutrophil # 9.22 X10^3/uL (2.7-7.7); Neutrophil % 77.3 % (47-70); Platelet Count 188 K/mm3 (150-450); RBC Distribution Width SD 44.5 fl (35.1-43.9); Red Blood Count 2.49 M/mm3 (4.6-6.2); White Blood Count 11.9 K/mm3 (4.4-11.0)
--- NOTE | 2023-06-05 07:08 | PN.HOSP_ITS ---
Reason for Visit Reason for Visit: Diagnoses Gastrointestinal hemorrhage, unspecified (06/04/23) Subjective Subjective No bleeding. Objective Data Objective Data Vital Signs: Vital Signs Temp Pulse Resp BP Pulse Ox O2 Del Method 37.3 C 78 18 123/59 H 100 Room Air 06/05/23 05:05 06/05/23 05:05 06/05/23 05:05 06/05/23 05:05 06/05/23 05:05 06/05/23 05:05 Oxygen Delivery Method Room Air Weight: 90 kg Body Mass Index (BMI) 26.2 Intake & Output: Intake and Output for Last 24 Hours 06/03/23 06/04/23 06/05/23 23:59 23:59 23:59 Intake Total 1000 / 1000 112 / 112 Output Total 1600 / 1600 Balance 1000 / 200 -1488 / -1488 Lab / Micro Data 06/05/23 06:20 06/05/23 06:20 Labs: Laboratory Results - last 24 hr 06/04/23 19:25: WBC 13.0 H, RBC 2.09 L, Hgb 6.3 L, Hct 18.9 L, MCV 90.4, MCH 30.1, MCHC 33.3, RDW Std Deviation 43.8, RDW Coeff of [place] 13.2, Plt Count 202, MPV 11.6, Immature Gran % (Auto) 0.500, Neut % (Auto) 83.9 H, Lymph % (Auto) 10.5 L, [place] % (Auto) 4.8, Eos % (Auto) 0.1, Baso % (Auto) 0.2, Absolute Neuts (auto) 10.9 H, Absolute Lymphs (auto) 1.37, Nucleated RBC % 0, Sodium 142, Potassium 4.1, Chloride 111 H, Carbon Dioxide 22.0, Anion Gap 9, BUN 105 H*, Creatinine 1.49 H, Estim Creat Clear Calc 48.41, Est GFR (MDRD) Af Amer 59 L, Est GFR (MDRD) Non-Af 49 L, BUN/Creatinine Ratio 70.5 H, Glucose 115 H, Calcium 8.6, Total Bilirubin 0.30, AST 7 L, ALT 23, Alkaline Phosphatase 46, Troponin I High Sens 33, Total Protein 5.4 L, Albumin 3.1 L, Globulin 2.3, Albumin/Globulin Ratio 1.3 06/04/23 20:00: Ammonia 11.0 06/04/23 20:29: Blood Type A NEGATIVE, Antibody Screen NEGATIVE, Crossmatch See Detail 06/04/23 21:00: Urine Color Yellow, Urine Clarity Clear, Urine pH 6.0, Ur Specific [place] 1.015, Urine Protein Negative, Urine Glucose (UA) Normal, Urine Ketones Negative, Urine Occult Blood Negative, Urine Nitrite Negative, Urine Bilirubin Negative, Urine Urobilinogen Normal, Ur Leukocyte Esterase Negative, Urine RBC 0 SEEN, Urine WBC 0 SEEN, Ur Squamous Epith Cells 0-5 SEEN, Urine B acteria 0 SEEN, Urine Mucus 0 SEEN 06/05/23 06:20: WBC 11.9 H, RBC 2.49 L, Hgb 7.4 L, Hct 21.9 L, MCV 88.0, MCH 29.7, MCHC 33.8, RDW Std Deviation 44.5 H, RDW Coeff of [place] 14.0, Plt Count 188, MPV 11.3, Immature Gran % (Auto) 0.400, Neut % (Auto) 77.3 H, Lymph % (Auto) 15.7 L, [place] % (Auto) 6.2, Eos % (Auto) 0.2, Baso % (Auto) 0.2, Absolute Neuts (auto) 9.2 H, Absolute Lymphs (auto) 1.87, Nucleated RBC % 0 Micro: Microbiology 06/04/23 21:30 Stool Stool Occult Blood (ARUN) - Final Occult Blood Positive Radiography Diagnostic Testing: Radiology Impression Brain CT 06/04/23 19:45 IMPRESSION: Atrophy and mild periventricular white matter ischemic change. No acute bleed. If concern for acute infarct MRI recommended. Electronically Signed: Danilo Abarca MD at 20:59 EDT , Abdomen/Pelvis CT 06/04/23 19:46 IMPRESSION: Nonspecific ileus. Diverticular disease of the descending colon without evidence for acute diverticulitis No evidence for small bowel obstruction or acute appendicitis Electronically Signed: Danilo Abarca MD at 21:09 EDT , Chest X-Ray 06/04/23 20:28 IMPRESSION: No acute cardiopulmonary pathology. Electronically Signed: Danilo Abarca MD at 21:48 EDT , Physical Exam Const Constitutional Narrative: seen at nursing station in [facility]. Pleasant. Afebrile. Resp normal respiratory effort, no retractions, no use of accessory muscles and clear to auscultation bilaterally Cardio regular rate, regular rhythm, S1 normal heart sound and S2 normal heart sound GI normal to inspection, nondistended, normoactive bowel sounds, soft to palpation, non-tender and non-distended Extremity normal to inspection Assessment & Plan Assessment/Plan (1) Upper GI bleed: PLAN: Plan Acute blood loss anemia * secondary to upper GI bleed * Hemoglobin 6.3 improved to 7.4 after 2 units of blood ordered in the ER GI bleed * Continue with Protonix * consult gastroenterology * Does not take chronic anticoagulants or antiplatelets and according to family he only took Aleve/ibuprofen yesterday for the first time for his hip pain Possible SERAFIN * no baseline Creatinine from Feb. * Monitor Chronic conditions: * Essential HTN/HLD: Blood pressure stable, Can resume his home blood pressure medications, will hold his lisinopril and hydrochlorothiazide secondary to his SERAFIN, Continue with Lipitor * Dementia? Fairly new onset? Currently in the workup stages? Continue with donepezil DVT: SCDs Charges/Coding Visit Charges Inpatient E&M: 22579 Subs Hosp L2
[2023-06-05 07:38] LABS: Anion Gap 3 (5-15); BUN 76 mg/dL (7-18); BUN/Creat Ratio 66.1 RATIO (10-20); Calcium,Total 8.4 mg/dL (8.5-10.1); Chloride 115 mmol/L (98-107); Creatinine, Serum 1.15 mg/dL (0.70-1.30); EST Glomerular Filtration Rate 66 mL/min (>60); Est Glom Filt Rate - Afr Amer 80 mL/min (>60); Estimated Creatinine Clearance 62.72 ml/min; Glucose 131 mg/dL (74-106); Potassium 3.8 mmol/L (3.5-5.1); Sodium Level 144 mmol/L (136-145)
--- NOTE | 2023-06-05 13:00 | CASEMGMT ---
RN?CM?WOODWORKING MACHINE FEEDER?CM?to room to meet with patient for initial transition planning/care coordination?assessment.?RN?CM?introduced self and role at [facility].? Pt resting in bed, awake, confused. Son, Red, @ bedside and pt unable to tell RN AUDELIA how he knew him and pt was unable to state his name. The following information obtained from Red/SULEMAN. Care providers, pharmacy, and demographics verified/updated at this time. PCP: Dr Tobias Specialists: Dr Katty Shelton--[facility] neurologist. Pt being worked-up for early dementia. Per Red, they started noticing memory issues/changes w/pt about a year ago, but was not able to get an appt w/Dr Shelton until about 2 months ago. Preferred Pharmacy: [facility] Insurance: [facility] Prescription Benefit:?Yes Living Will/HPOA:?Pt has a LW and HCPOA, who is his son, Red. Red e-mailed both to this RN AUDELIA and RN CM forwarded to MS3 Beverly ZEPEDA CM, to be printed off and placed on pt's chart. LNOK: Son, Red/SULEMAN. Son, Usman. Pt has 2 other sons as well. Living Arrangements: Lives alone in 2-story home w/1 step to enter. Bedroom and bathroom upstairs. 1/2 bath on main floor. Pt is independent w/ADL's @ his baseline. Red sets up weekly pill containers and pt able to take meds daily on his own from the pill container. Family brings meals/food in for pt. Transportation:?Red states pt still drives a little bit. DME: Red states pt has a CPAP but has never really used it. Pt uses no AD to ambulate. HHC/SNF: No hx of either. Red inquiring what the next step/plan would be re: if pt would need to go to a SNF. He did state if pt able to discharge home that he could come to his (Red's) for short-term, if needed. Otherwise, they would be open to pt going to a facility or transfer for lauren-psych eval if needed. Red would like to talk w/hospitalist re: POC and tests. KATELYN Paul CM, and Paty BAE, made aware of above. PLAN:??TBD by course of treatment and mentation. DGiauque BSN?RN?CM
--- NOTE | 2023-06-05 17:15 | EGD_PTH ---
PATIENT: AMBER SNIDER LOC: MS3 U#:[id number] AGE/SX: 77/M [place] [facility] [place]: Dr. Usman Romeo DO : 1945 BED: 1 DIS: 06/08/2023 SPEC #: [id number] RECD: 06/06/23 05:50 STATUS: LÁZARO RETiff #: [id number] LUCY: 06/05/23 17:[address]: Sarkis Lopes DEPT: SURGICAL PATHOLOGY RECD BY: Dedra Guzman ENTERED: 06/06/23 08:57 SP TYPE: EGD BIOPSY OTHR DR: MD Dr. Usman Dumont DO Dr. Nicholas F Kotsonis, MD Tissues: Gastric mucous membrane Procedures: Surgery Specimen Level IV Comments: @ Ordering doctor for ELOINA edited from to @ luz SMALL at 06/06/23925 @ Submitting doctor edited from to @ luz SMALL at 06/06/23925 HEADER OPERATION: EGD PRE-OP DIAGNOSIS: Upper GI bleed TISSUE SUBMITTED: Gastric cardia ulcer MICROSCOPIC DIAGNOSIS Gastric cardia ulcer, biopsy: Fragments of gastric mucosa with focal ulceration, acute and chronic inflammation. See comment. / 06/07/2023 COMMENT The results of immunohistochemistry for Helicobacter pylori will be reported separately ([id number]). MICROSCOPIC DESCRIPTION Slides are reviewed. GROSS DESCRIPTION Received in fixative is one container labeled with the patient's name and designated Gastric cardia ulcer. The specimen consists of multiple irregular fragments of light gao soft tissue that in aggregate measure 1.2 x 0.5 x 0.1 cm. The specimen is totally submitted in one cassette. EBENEZER/ 06/06/23 TC:2 CPT:79831
--- NOTE | 2023-06-05 17:15 | IMM_PTH ---
PATIENT: AMBER SNIDER LOC: MS3 U#:[id number] AGE/SX: 77/M [place] [facility] [place]: Dr. Usman Romeo DO : 1945 BED: 1 DIS: 06/08/2023 SPEC #: [id number] RECD: 06/06/23 08:08 STATUS: SOUJani REQ #: [id number] LUCY: 06/05/23 17:[address]: Sarkis Lopes DEPT: IMMUNOHISTOCHEMISTRY RECD BY: Terrence Marino ENTERED: 06/06/23 08:08 SP TYPE: IMMUNO OTHR DR: MD Dr. Usman Dumont DO Dr. Nicholas F Kotsonis, MD Tissues: Stomach, NOS Procedures: H Pylori (initial) Comments: @ Ordering doctor for H.PYLORI edited from to @ by GEOVANNY at 06/06/23 0808 @ Submitting doctor edited from to @ by GEOVANNY at 06/06/23 0808 PHYSICIAN & INSTITUTION [place] [id number] SPECIMEN INFORMATION: Tissue Source: Gastric cardia ulcer Clinical Info: Upper GI bleed Specimen Number: [id number] CPT code: 12159 METHODOLOGY: Deparaffinized sections of prefer/formalin-fixed tissue or PAP/DQ stained slides are incubated with monoclonal/polyclonal antibodies/oligonucleotide probes. Localization is made via biotin free immunoperoxidase method. Appropriate controls are performed and reacted as expected. Results on target cell population are indicated in the following table: RESULTS: ANTIBODY / CLONE RESULT H Pylori (polyclonal) negative These tests were developed and their performance characteristics determined by [facility]. They may not have been cleared or approved by the U.S. Food and Drug Administration. The FDA has determined that such clearance or approval is not necessary. The above immunohistochemical/dualISH markers are ordered and reviewed by the Pathologist. INTERPRETATION: Gastric cardia ulcer, biopsy: Negative for Helicobacter pylori organisms. EBENEZER/ 06/07/2023
--- NOTE | 2023-06-05 18:28 | OP.CCLET_ITS ---
06/05/2023 Moiz Tobias Re : Upper GI endoscopy procedure for Homero Maria Dear Jatinder This procedure was performed on Monday, June 05, 2023. My impressions and recommendations are as follows: Impressions : - Normal esophagus. - Oozing gastric ulcer with a visible vessel. Injected. Treated with a heater probe. - Non-bleeding gastric ulcer with no stigmata of bleeding. Biopsied. - No gross lesions in the duodenal bulb. Recommendations : - [facility]. - Full liquid diet today. - Use Prilosec (omeprazole) 40 mg PO BID for 3 months. - Repeat upper endoscopy in 3 months for surveillance. - Continue present medications. My findings are described in the full procedure note, which is enclosed. If I can be of further assistance, please feel free to contact me at . Sincerely, Sarkis Lopes, 06/05/2023 6:28:01 PM This report has been signed electronically.
--- NOTE | 2023-06-05 18:28 | OP.EGD_ITS ---
Patient Name: Homero Maria Procedure Date: 06/05/2023 5:51 PM Date of : 1945 Age: 77 Procedure: Upper GI endoscopy Indications: Melena Providers: Sarkis Lopes DO Medicines: Monitored Anesthesia Care Patient Profile: This is a 77 year old male. Refer to note in patient chart for documentation of history and physical. Patient has symptoms of acute epigastric abdominal pain. Complications: No immediate complications. Procedure: Pre-Anesthesia Assessment: - Prior to the procedure, a History and Physical was performed, and patient medications and allergies were reviewed. The patient is competent. The risks and benefits of the procedure and the sedation options and risks were discussed with the patient. All questions were answered and informed consent was obtained. Patient identification and proposed procedure were verified by the physician in the pre-procedure area. Mental Status Examination: alert and oriented. Airway Examination: normal oropharyngeal airway and neck mobility. Respiratory Examination: clear to auscultation. CV Examination: normal. Prophylactic Antibiotics: The patient does not require prophylactic antibiotics. Prior Anticoagulants: The patient has taken no anticoagulant or antiplatelet agents. ASA Grade Assessment: IV - A patient with severe systemic disease that is a constant threat to life. After reviewing the risks and benefits, the patient was deemed in satisfactory condition to undergo the procedure. The anesthesia plan was to use monitored anesthesia care (MAC). Immediately prior to administration of medications, the patient was re-assessed for adequacy to receive sedatives. The heart rate, respiratory rate, oxygen saturations, blood pressure, adequacy of pulmonary ventilation, and response to care were monitored throughout the procedure. The physical status of the patient was re-assessed after the procedure. After obtaining informed consent, the endoscope was passed under direct vision. Throughout the procedure, the patient's blood pressure, pulse, and oxygen saturations were monitored continuously. The Endoscope was introduced through the mouth, and advanced to the second part of duodenum. The upper GI endoscopy was accomplished without difficulty. The patient tolerated the procedure well. Scope In: 6:14:13 PM Scope Out: 6:18:29 PM Total Procedure Duration Time 0 hours 4 minutes 16 seconds Findings: The examined esophagus was normal. One oozing cratered gastric ulcer with a visible vessel was found in the gastric body. The lesion was 6 mm in largest dimension. Area was successfully injected with 5 mL of a 0.1 mg/mL solution of epinephrine for drug delivery. Coagulation for hemostasis using heater probe was successful. One non-bleeding cratered gastric ulcer with no stigmata of bleeding was found in the cardia. The lesion was 4 mm in largest dimension. Biopsies were taken with a cold forceps for histology. Verification of patient identification for the specimen was done. Estimated blood loss was minimal. Biopsies were taken with a cold forceps for Helicobacter pylori testing. Verification of patient identification for the specimen was done. Estimated blood loss was minimal. No gross lesions were noted in the duodenal bulb. Impression: - Normal esophagus. - Oozing gastric ulcer with a visible vessel. Injected. Treated with a heater probe. - Non-bleeding gastric ulcer with no stigmata of bleeding. Biopsied. - No gross lesions in the duodenal bulb. Recommendation: - Return patient to [facility] for [facility] care. - Full liquid diet today. - Use Prilosec (omeprazole) 40 mg PO BID for 3 months. - Repeat upper endoscopy in 3 months for surveillance. - Continue present medications. Procedure Code(s): --- Professional --- 24351, 59, Esophagogastroduodenoscopy, flexible, transoral; with control of bleeding, any method 70990, 51, Esophagogastroduodenoscopy, flexible, transoral; with biopsy, single or multiple 86955, 59, Esophagogastroduodenoscopy, flexible, transoral; with directed submucosal injection(s), any substance CPT copyright 2021 [employer]. All rights reserved. The codes documented in this report are preliminary and upon airport ramp agent review may be revised to meet current compliance requirements. Sarkis Lopes DO 06/05/2023 6:28:01 PM This report has been signed electronically. Number of Addenda: 0 Note Initiated On: 06/05/2023 5:51 PM
[2023-06-05] MEDS: LORazepam 2 MG/ML Syringe 1 MG IV (20:30)
[2023-06-05] MEDS: Atorvastatin Calcium 20 MG Tablet PO (20:30)
[2023-06-05] MEDS: MELATONIN 3 MG TABLET PO (20:30)
[2023-06-05] MEDS: Donepezil HCl 5 MG Tablet PO (20:38)
[2023-06-05] MEDS: QUEtiapine 25 MG Tablet PO (22:07)
[2023-06-06] VITALS (7 sets, daily range): BP systolic 93–155; BP diastolic 56–84; PULSE 60–106; RESP 16–18; TEMP 36.4–37.2; O2SAT 94–100
[2023-06-06] MEDS: LORazepam 2 MG/ML Syringe 1 MG IV (01:01)
--- NOTE | 2023-06-06 07:11 | PN.HOSP_ITS ---
Reason for Visit Reason for Visit: Diagnoses Gastrointestinal hemorrhage, unspecified (06/04/23) Subjective Subjective Agitated. Recalling staff member whom he had not seen in years correctly, but interacting with his cellphone when it was not on. Objective Data Objective Data Vital Signs: Vital Signs Temp Pulse Resp BP Pulse Ox O2 Del Method 36.7 C 106 H 18 130/99 H 96 Room Air 06/06/23 06:03 06/06/23 06:03 06/06/23 06:03 06/05/23 19:06 06/06/23 06:03 06/06/23 06:03 Oxygen Delivery Method Room Air Weight: 90 kg Body Mass Index (BMI) 26.2 Intake & Output: Intake and Output for Last 24 Hours 06/04/23 06/05/23 06/06/23 23:59 23:59 23:59 Intake Total 1000 / 1000 332 / 332 Output Total 1850 / 1850 Balance 1000 / 200 -1518 / -1518 Lab / Micro Data 06/06/23 06:05 06/06/23 06:05 Labs: Laboratory Results - last 24 hr 06/05/23 06:20: Sodium 144, Potassium 3.8, Chloride 115 H, Carbon Dioxide 26.0, Anion Gap 3 L, BUN 76 H, Creatinine 1.15, Estim Creat Clear Calc 62.72, Est GFR (MDRD) Af Amer 80, Est GFR (MDRD) Non-Af 66, BUN/Creatinine Ratio 66.1 H, Gl ucose 131 H, Calcium 8.4 L Micro: Microbiology 06/04/23 21:30 Stool Stool Occult Blood (ARUN) - Final Occult Blood Positive Physical Exam Const alert and no apparent distress Constitutional Narrative: in nursing station in lauren-chair. Orientation / Consciousness: confused HEENT head/scalp atraumatic and moist oral mucous membranes Resp normal respiratory effort, no retractions, no use of accessory muscles and clear to auscultation bilaterally Cardio regular rate, regular rhythm, S1 normal heart sound and S2 normal heart sound GI normal to inspection, nondistended, normoactive bowel sounds, soft to palpation, non-tender and non-distended Extremity normal to inspection Neuro Sensorium / Orientation: awake and alert Assessment & Plan Assessment/Plan (1) Upper GI bleed: PLAN: Plan Acute blood loss anemia * currently stable * secondary to upper GI bleed * Hemoglobin 6.3 improved to 7.4 after 2 units of blood ordered in the ER. Currently stable. GI bleed * Change pantoprazole to 40 BID. * EGD on 06/04: oozing gastric ulcer with visible vessel that was jected and heater probe. * Does not take chronic anticoagulants or antiplatelets and according to family he only took Aleve/ibuprofen yesterday for the first time for his hip pain Possible SERAFIN * no baseline Creatinine from Feb. * Monitor Urinary retention * catheter dc'd 06/04, however, today, pt only had scant urine output. Bladder scanned for +1200 cc urine. * replace sanz. Start tamsulosin * Follow up with as outpt. * Pt at high-risk of self-discontinuation of sanz, however, with his pronounced urinary retention, would pose a greater risk with potential of SERAFIN, hydronephrosis and agitation. Chronic conditions: * Essential HTN/HLD: Blood pressure stable, Can resume his home blood pressure medications, will hold his lisinopril and hydrochlorothiazide secondary to his SERAFIN, Continue with Lipitor * Dementia? Diagnosed about 1 year ago. Reorientation as able. Family interested to see if he could go to SNF before going home. DVT: SCDs Disposition: TBD. Pt medically stable for discharge, but he is unsafe to return home by himself independently. Case management to assist on proper placement for him upon discharge. Charges/Coding Visit Charges Inpatient E&M: 67757 Subs Hosp L2
[2023-06-06 07:35] LABS: Absolute Lymphocyte Count 1.96 X10^3/uL (0.83-4.51); Absolute Neutrophil Count 6.1 X10^3/uL (2.0-7.7); Basophil# 0.02 X10^3/uL; Basophil% 0.2 % (0-1); Eosinophils% 1.1 % (0-5); Hematocrit 22.5 % (40-54); Hemoglobin 7.4 g/dL (13.0-16.5); Lymphocyte # 1.96 X10^3/ul (0.83-4.51); Lymphocyte % 22.4 % (19-41); Mean Corp Hgb Conc 32.9 g/dL (32-36); Mean Corpuscular Volume 91.1 fL (80-94); Mean Platelet Vol. 11.6 fl (6.2-12.0); Monocyte# 0.53 X10^3/uL; Monocyte% 6.1 % (0-10); NRBC Flagged by Analyzer 0 % (0-5); Neutrophil # 6.09 X10^3/uL (2.7-7.7); Neutrophil % 69.6 % (47-70); Platelet Count 180 K/mm3 (150-450); RBC Distribution Width CV 14.7 % (11.6-14.6); RBC Distribution Width SD 48.4 fl (35.1-43.9); Red Blood Count 2.47 M/mm3 (4.6-6.2); White Blood Count 8.8 K/mm3 (4.4-11.0)
[2023-06-06 07:58] LABS: Anion Gap 2 (5-15); BUN 42 mg/dL (7-18); BUN/Creat Ratio 44.3 RATIO (10-20); Calcium,Total 8.7 mg/dL (8.5-10.1); Chloride 114 mmol/L (98-107); Creatinine, Serum 0.95 mg/dL (0.70-1.30); EST Glomerular Filtration Rate 82 mL/min (>60); Est Glom Filt Rate - Afr Amer 100 mL/min (>60); Estimated Creatinine Clearance 75.93 ml/min; Glucose 132 mg/dL (74-106); Potassium 3.8 mmol/L (3.5-5.1); Sodium Level 143 mmol/L (136-145)
[2023-06-06] MEDS: amLODIPine 2.5 MG Tablet PO (09:47)
[2023-06-06] MEDS: Donepezil HCl 5 MG Tablet PO (09:47)
[2023-06-06] MEDS: Pantoprazole Sodium 40 MG in 0.9% Normal Saline (100mL MB+) 100 ML 330 MG IV ×2 (09:48→20:12)
[2023-06-06 13:57] LABS: Absolute Lymphocyte Count 1.36 X10^3/uL (0.83-4.51); Absolute Neutrophil Count 5.1 X10^3/uL (2.0-7.7); Basophil# 0.02 X10^3/uL; Basophil% 0.3 % (0-1); Eosinophil# 0.06 X10^3/uL; Eosinophils% 0.8 % (0-5); Hematocrit 19.7 % (40-54); Hemoglobin 6.5 g/dL (13.0-16.5); Lymphocyte # 1.36 X10^3/ul (0.83-4.51); Mean Corpuscular Hgb 29.4 pg (27.0-32.0); Mean Corpuscular Volume 89.1 fL (80-94); Mean Platelet Vol. 11.2 fl (6.2-12.0); Monocyte# 0.57 X10^3/uL; NRBC Flagged by Analyzer 0 % (0-5); Neutrophil # 5.08 X10^3/uL (2.7-7.7); Neutrophil % 71.1 % (47-70); Platelet Count 146 K/mm3 (150-450); RBC Distribution Width CV 14.6 % (11.6-14.6); RBC Distribution Width SD 46.5 fl (35.1-43.9); Red Blood Count 2.21 M/mm3 (4.6-6.2); White Blood Count 7.2 K/mm3 (4.4-11.0)
--- NOTE | 2023-06-06 14:34 | CASEMGMT ---
Social Work Pt's son provided copy of Living Will and HCPOA naming son Red Maria. Copies placed on pt chart. BETZAIDA Rodriguez
--- NOTE | 2023-06-06 14:42 | CASEMGMT ---
Addendum entered by Teresa Reagan 06/06/23 18:11: Social Work SW spoke with therapy who has evaluated pt and are recommending SNF. Referral sent to [facility]. Pt's son updated. SW will await determination of acceptance at [facility]. Plan: [facility], pending acceptance and precert BETZAIDA Rodriguez Original Note: Social Work SW met with pt's son Red and introduced self and role of SW. Per Red, pt lives home alone and has been on a slow decline cognitively over the last year. But has been able to live alone with sons visiting several times a week and assisting with medication set up and IADLs. Current acute cognitive issues are new and unlike pt's baseline. KATHIA and Red discussed pt's care needs and KATHIA educated Red that pt will currently need 24 hour care and discharge options including short term SNF for rehab, private pay at nursing facility, dementia unit and Assisted Living with dementia units were discussed. A list of SNF providers including quality and resource use data and consistent with the patient?s preferred geographic region, medical needs, and insurance network were provided from the [employer] Guide. KATHIA also provided lists of private pay SNF and [place] with dementia units. Red is understanding that at this time pt will need 24 hour and preference would be for short term rehab at [facility]. KATHIA did explain that pt may not qualify for rehab depending on functional ability and that insurance will not pay for SNF just for cognitive impairment. Red expresses understanding. Red will speak to his brothers and make decision on discharge plan in the event pt cannot go to SNF skilled. KATHIA updated therapy on family wishes and they will evaluate pt. KATHIA will continue to follow for dc planning. BETZAIDA Rodriguez
[2023-06-06] MEDS: Tamsulosin HCl 0.4 MG Capsule PO (16:57)
--- NOTE | 2023-06-06 18:12 | PN.GI_ITS ---
Subjective Subjective Patient underwent an upper endoscopy yesterday for acute blood loss anemia. He does not have any abdominal pain this morning. His diet has been progressed from a full liquid diet.. Objective Data Objective Data Vital Signs: Vital Signs Temp Pulse Resp BP Pulse Ox O2 Del Method 98 F 68 16 93/56 L 97 Room Air 06/06/23 18:07 06/06/23 18:07 06/06/23 18:07 06/06/23 18:07 06/06/23 18:07 06/06/23 18:07 Oxygen Delivery Method Room Air Weight: 198 lb 6.656 oz Body Mass Index (BMI) 26.2 Intake & Output: Intake and Output for Last 24 Hours 06/04/23 06/05/23 06/06/23 23:59 23:59 23:59 Intake Total 1000 / 1000 332 / 332 110 / 110 Output Total 1850 / 1850 1475 / 1475 Balance 1000 / 200 -1518 / -1518 -1365 / -1365 Lab / Micro Data 06/06/23 13:40 06/06/23 06:05 Labs: Laboratory Results - last 24 hr 06/04/23 20:29: Crossmatch See Detail 06/04/23 20:29: Crossmatch See Detail 06/06/23 06:05: WBC 8.8, RBC 2.47 L, Hgb 7.4 L, Hct 22.5 L, MCV 91.1, MCH 30.0, MCHC 32.9, RDW Std Deviation 48.4 H, RDW Coeff of Eugene 14.7 H, Plt Count 180, MPV 11.6, Immature Gran % (Auto) 0.600, Neut % (Auto) 69.6, Lymph % (Auto) 22.4, [place] % (Auto) 6.1, Eos % (Auto) 1.1, Baso % (Auto) 0.2, Absolute Neuts (auto) 6.1, Absolute Lymphs (auto) 1.96, Nucleated RBC % 0, Sodium 143, Potassium 3.8, Chloride 114 H, Carbon Dioxide 27.0, Anion Gap 2 L, BUN 42 H, Creatinine 0.95, Estim Creat Clear Calc 75.93, Est GFR (MDRD) Af Amer 100, Est GFR (MDRD) Non-Af 82, BUN/Creatinine Ratio 44.3 H, Glucose 132 H, Calcium 8.7 06/06/23 13:40: WBC 7.2, RBC 2.21 L, Hgb 6.5 L, Hct 19.7 L, MCV 89.1, MCH 29.4, MCHC 33.0, RDW Std Deviation 46.5 H, RDW Coeff of [place] 14.6, Plt Count 146 L, MPV 11.2, Immature Gran % (Auto) 0.800, Neut % (Auto) 71.1 H, Lymph % (Auto) 19.0, [place] % (Auto) 8.0, Eos % (Auto) 0.8, Baso % (Auto) 0.3, Absolute Neuts (auto) 5 .1, Absolute Lymphs (auto) 1.36, Nucleated RBC % 0 Micro: Microbiology 06/04/23 21:30 Stool Stool Occult Blood (ARUN) - Final Occult Blood Positive Physical Exam Const alert and no apparent distress Constitutional Narrative: in nursing station in lauren-chair. Orientation / Consciousness: confused HEENT head/scalp atraumatic and moist oral mucous membranes Resp normal respiratory effort, no retractions, no use of accessory muscles and clear to auscultation bilaterally Cardio regular rate, regular rhythm, S1 normal heart sound and S2 normal heart sound GI normal to inspection, nondistended, normoactive bowel sounds, soft to palpation, non-tender and non-distended Extremity normal to inspection Neuro Sensorium / Orientation: awake and alert Assessment & Plan Assessment/Plan (1) Upper GI bleed: PLAN: Plan Acute blood loss anemia secondary to upper GI bleed/SERAFIN. His hemoglobin seems to be stable at this time. ? Findings: The examined esophagus was normal. One oozing cratered gastric ulcer with a visible vessel was found in the gastric body. The lesion was 6 mm in largest dimension. Area was successfully injected with 5 mL of a 0.1 mg/mL solution of epinephrine for drug delivery. Coagulation for hemostasis using heater probe was successful. One non-bleeding cratered gastric ulcer with no stigmata of bleeding was found in the cardia. The lesion was 4 mm in largest dimension. Biopsies were taken with a cold forceps for histology. Verification of patient identification for the specimen was done. Estimated blood loss was minimal. Biopsies were taken with a cold forceps for Helicobacter pylori testing. Verification of patient identification for the specimen was done. Estimated blood loss was minimal. No gross lesions were noted in the duodenal bulb. Impression: - Normal esophagus. - Oozing gastric ulcer with a visible vessel. Injected. Treated with a heater probe. - Non-bleeding gastric ulcer with no stigmata of bleeding. Biopsied. - No gross lesions in the duodenal bulb. Recommendation: - [facility] patient to [facility] for [facility]. - Full liquid diet today. Advance diet as tolerated - Use Prilosec (omeprazole) 40 mg PO BID for 3 months. - Repeat upper endoscopy in 3 months for surveillance. Charges/Coding Visit Charges Inpatient E&M: 98274 Subs Hosp L3
[2023-06-06] MEDS: Atorvastatin Calcium 20 MG Tablet PO (20:07)
[2023-06-06] MEDS: MELATONIN 3 MG TABLET PO (20:18)
[2023-06-06] MEDS: QUEtiapine 25 MG Tablet PO (20:55)
[2023-06-06 22:42] LABS: Hematocrit 21.4 % (40-54); Hemoglobin 7.1 g/dL (13.0-16.5)
[2023-06-07 06:58] LABS: Absolute Lymphocyte Count 1.65 X10^3/uL (0.83-4.51); Absolute Neutrophil Count 3.7 X10^3/uL (2.0-7.7); Basophil# 0.02 X10^3/uL; Basophil% 0.3 % (0-1); Eosinophil# 0.25 X10^3/uL; Eosinophils% 4.1 % (0-5); Hematocrit 22.5 % (40-54); Hemoglobin 7.6 g/dL (13.0-16.5); Lymphocyte # 1.65 X10^3/ul (0.83-4.51); Mean Corp Hgb Conc 33.8 g/dL (32-36); Mean Corpuscular Hgb 30.4 pg (27.0-32.0); Mean Platelet Vol. 11.2 fl (6.2-12.0); Monocyte# 0.45 X10^3/uL; Monocyte% 7.4 % (0-10); NRBC Flagged by Analyzer 0 % (0-5); Neutrophil # 3.71 X10^3/uL (2.7-7.7); Neutrophil % 60.9 % (47-70); Platelet Count 132 K/mm3 (150-450); RBC Distribution Width SD 45.8 fl (35.1-43.9); White Blood Count 6.1 K/mm3 (4.4-11.0)
--- NOTE | 2023-06-07 07:27 | PCM.PN.HOSP ---
Reason for Visit Reason for Visit: Diagnoses Gastrointestinal hemorrhage, unspecified (06/04/23) Subjective Subjective No further melena since 06/05. Sanz catheter was replaced on 06/05. Objective Data Objective Data Vital Signs: Vital Signs Temp Pulse Resp BP Pulse Ox O2 Del Method 36.7 C 66 18 130/79 H 100 Room Air 06/06/23 20:30 06/06/23 20:30 06/06/23 20:30 06/06/23 20:30 06/06/23 20:30 06/06/23 21:00 Oxygen Delivery Method Room Air Weight: 90 kg Body Mass Index (BMI) 26.2 Intake & Output: Intake and Output for Last 24 Hours 06/05/23 06/06/23 06/07/23 23:59 23:59 23:59 Intake Total 332 / 332 221 / 221 Output Total 1850 / 1850 1475 / 1475 Balance -1518 / -1518 -1254 / -1254 Lab / Micro Data 06/07/23 06:26 06/06/23 06:05 Labs: Laboratory Results - last 24 hr 06/04/23 20:29: Crossmatch See Detail 06/04/23 20:29: Crossmatch See Detail 06/06/23 06:05: WBC 8.8, RBC 2.47 L, Hgb 7.4 L, Hct 22.5 L, MCV 91.1, MCH 30.0, MCHC 32.9, RDW Std Deviation 48.4 H, RDW Coeff of Eugene 14.7 H, Plt Count 180, MPV 11.6, Immature Gran % (Auto) 0.600, Neut % (Auto) 69.6, Lymph % (Auto) 22.4, [place] % (Auto) 6.1, Eos % (Auto) 1.1, Baso % (Auto) 0.2, Absolute Neuts (auto) 6.1, Absolute Lymphs (auto) 1.96, Nucleated RBC % 0, Sodium 143, Potassium 3.8, Chloride 114 H, Carbon Dioxide 27.0, Anion Gap 2 L, BUN 42 H, Creatinine 0.95, Estim Creat Clear Calc 75.93, Est GFR (MDRD) Af Amer 100, Est GFR (MDRD) Non-Af 82, BUN/Creatinine Ratio 44.3 H, Glucose 132 H, Calcium 8.7 06/06/23 13:40: WBC 7.2, RBC 2.21 L, Hgb 6.5 L, Hct 19.7 L, MCV 89.1, MCH 29.4, MCHC 33.0, RDW Std Deviation 46.5 H, RDW Coeff of [place] 14.6, Plt Count 146 L, MPV 11.2, Immature Gran % (Auto) 0.800, Neut % (Auto) 71.1 H, Lymph % (Auto) 19.0, [place] % (Auto) 8.0, Eos % (Auto) 0.8, Baso % (Auto) 0.3, Absolute Neuts (auto) 5.1, Absolute Lymphs (auto) 1.36, Nucleated RBC % 0 06/06/23 22:28: Hgb 7.1 L, Hct 21.4 L 06/07/23 06:26: WBC 6.1, RBC 2.50 L, Hgb 7.6 L, Hct 22.5 L, MCV 90.0, MCH 30.4, MCHC 33.8, RDW Std Deviation 45.8 H, RDW Coeff of [place] 14.0, Plt Count 132 L, MPV 11.2, Immature Gran % (Auto) 0.300, Neut % (Auto) 60.9, Lymph % (Auto) 27.0, [place] % (Auto) 7.4, Eos % (Auto) 4.1, Baso % (Auto) 0.3, Absolute Neuts (auto) 3.7, Absolute Lymphs (auto) 1.65, Nucleated RBC % 0 Micro: Microbiology 06/04/23 21:30 Stool Stool Occult Blood (ARUN) - Final Occult Blood Positive Physical Exam Const alert and no apparent distress Cardio regular rate, regular rhythm, S1 normal heart sound and S2 normal heart sound GI normal to inspection, nondistended, normoactive bowel sounds, soft to palpation, non-tender and non-distended Extremity normal to inspection Assessment & Plan Assessment/Plan (1) Upper GI bleed: PLAN: Plan Acute blood loss anemia currently stable secondary to upper GI bleed Hemoglobin 6.3 improved to 7.4 after 2 units of blood ordered in the ER. Currently stable. Transfused 1 unit PRBC on 06/05. Hg improved. GI bleed Change pantoprazole to 40 BID. EGD on 06/04: oozing gastric ulcer with visible vessel that was jected and heater probe. Does not take chronic anticoagulants or antiplatelets and according to family he only took Aleve/ibuprofen yesterday for the first time for his hip pain SERAFIN resolved Monitor Urinary retention catheter dc'd 06/04, however, today, pt only had scant urine output. Bladder scanned for +1200 cc urine. replace sanz. Start tamsulosin Follow up with as outpt. Pt at high-risk of self-discontinuation of sanz, however, with his pronounced urinary retention, would pose a greater risk with potential of SERAFIN, hydronephrosis and agitation. Chronic conditions: Essential HTN/HLD: Blood pressure stable, Can resume his home blood pressure medications, will hold his lisinopril and hydrochlorothiazide secondary to his SERAFIN, Continue with Lipitor Dementia? Diagnosed about 1 year ago. Reorientation as able. Family interested to see if he could go to SNF before going home. DVT: SCDs Disposition: TBD. Once verified patient is medically stable he should be ready for discharge hopefully in the next 24 to 48 hours. Looking at [facility] versus [facility] pending insurance acceptance and precertification. Discussed with the one of the patient's sons today. Charges/Coding Visit Charges Inpatient E&M: 46928 Subs Hosp L2
[2023-06-07 08:00] VITALS: BP 125/74; PULSE 55; RESP 16; TEMP 36.4; O2SAT 100
[2023-06-07] MEDS: amLODIPine 2.5 MG Tablet PO (08:01)
[2023-06-07] MEDS: Donepezil HCl 5 MG Tablet PO (08:01)
[2023-06-07] MEDS: Pantoprazole Sodium 40 MG in 0.9% Normal Saline (100mL MB+) 100 ML 330 MG IV ×2 (10:06→21:19)
[2023-06-07] MEDS: 0.9% Saline Lock 10 ML Syringe IV (10:06)
[2023-06-07 14:13] VITALS: BP 109/64; PULSE 73; RESP 16; TEMP 36.6; O2SAT 97
--- NOTE | 2023-06-07 14:33 | CASEMGMT ---
Social Work [facility] Marianna will do an onsite visit tomorrow 06/07. Additional clinical information provided. Phone call to pt's son Red and updated on this. Red now requesting referral be sent to [facility]. Phone call to Arianna at [facility] and verbal referral given. [facility] to consider pt and referral sent via [facility]. Plan: [facility] vs [facility] pending acceptance and precert BETZAIDA Rodriguez
[2023-06-07] MEDS: Tamsulosin HCl 0.4 MG Capsule PO (16:54)
[2023-06-07] MEDS: QUEtiapine 25 MG Tablet PO (16:54)
[2023-06-07] MEDS: MELATONIN 3 MG TABLET PO (21:16)
[2023-06-07] MEDS: Atorvastatin Calcium 20 MG Tablet PO (21:16)
[2023-06-07 21:30] VITALS: BP 139/81; PULSE 68; RESP 16; TEMP 37.1; O2SAT 98
[2023-06-08 03:30] VITALS: BP 124/75; PULSE 67; RESP 16; TEMP 36.6; O2SAT 98
--- NOTE | 2023-06-08 06:59 | PN.HOSP_ITS ---
Reason for Visit Reason for Visit: Diagnoses Gastrointestinal hemorrhage, unspecified (06/04/23) Subjective Subjective Feels well. Denies complaints. Objective Data Objective Data Vital Signs: Vital Signs Temp Pulse Resp BP Pulse Ox O2 Del Method 36.6 C 67 16 124/75 H 98 Room Air 06/08/23 03:30 06/08/23 03:30 06/08/23 03:30 06/08/23 03:30 06/08/23 03:30 06/08/23 03:30 Oxygen Delivery Method Room Air Weight: 90 kg Body Mass Index (BMI) 26.2 Intake & Output: Intake and Output for Last 24 Hours 06/06/23 06/07/23 06/08/23 23:59 23:59 23:59 Intake Total 221 / 221 220 / 220 Output Total 1475 / 2675 2400 / 3500 1949 / 1949 Balance -1254 / -2454 -2180 / -3280 -1949 / Lab / Micro Data 06/08/23 07:00 06/08/23 07:00 Labs: Laboratory Results - last 24 hr 06/07/23 06:26: WBC 6.1, RBC 2.50 L, Hgb 7.6 L, Hct 22.5 L, MCV 90.0, MCH 30.4, MCHC 33.8, RDW Std Deviation 45.8 H, RDW Coeff of Eugene 14.0, Plt Count 132 L, MPV 11.2, Immature Gran % (Auto) 0.300, Neut % (Auto) 60.9, Lymph % (Auto) 27.0, [place] % (Auto) 7.4, Eos % (Auto) 4.1, Baso % (Auto) 0.3, Absolute Neuts (auto) 3.7, Absolute Lymphs (auto) 1.65, Nucleated RBC % 0 Micro: Microbiology 06/04/23 21:30 Stool Stool Occult Blood (ARUN) - Final Occult Blood Positive Physical Exam Const alert and no apparent distress HEENT head/scalp atraumatic Resp normal respiratory effort, no retractions, no use of accessory muscles and clear to auscultation bilaterally Cardio regular rate, regular rhythm, S1 normal heart sound and S2 normal heart sound GI normal to inspection, nondistended, normoactive bowel sounds and soft to palpation Neuro Sensorium / Orientation: awake and alert Assessment & Plan Assessment/Plan (1) Upper GI bleed: PLAN: Plan Acute blood loss anemia * currently stable * secondary to upper GI bleed * Hemoglobin 6.3 improved to 7.4 after 2 units of blood ordered in the ER. C urrently stable. * Transfused 1 unit PRBC on 06/05. Hg improved. * Started every other day ferrous sulfate GI bleed * Change pantoprazole to 40 BID. * EGD on 06/04: oozing gastric ulcer with visible vessel that was jected and heater probe. * Does not take chronic anticoagulants or antiplatelets and according to family he only took Aleve/ibuprofen yesterday for the first time for his hip pain SERAFIN * resolved * Monitor * May be post obstructive. Urinary retention * catheter dc'd 06/04, however, today, pt only had scant urine output. Bladder scanned for +1200 cc urine. * replace sanz. Start tamsulosin * Follow up with as outpt. * Pt at high-risk of self-discontinuation of sanz, however, with his pronounced urinary retention, would pose a greater risk with potential of SERAFIN, hydronephrosis and agitation. Chronic conditions: * Essential HTN/HLD: Blood pressure stable, Can resume his home blood pressure medications, will hold his lisinopril and hydrochlorothiazide secondary to his SERAFIN, Continue with Lipitor * Dementia? Diagnosed about 1 year ago. Reorientation as able. Family interested to see if he could go to SNF before going home. DVT: SCDs Disposition: TBD. For discharge. Waiting on authorization for alf facility. Charges/Coding Visit Charges Inpatient E&M: 62132 Subs Hosp L2
[2023-06-08] MEDS: Donepezil HCl 5 MG Tablet PO (07:50)
[2023-06-08] MEDS: amLODIPine 2.5 MG Tablet PO (07:50)
[2023-06-08 07:52] LABS: Absolute Lymphocyte Count 1.16 X10^3/uL (0.83-4.51); Absolute Neutrophil Count 4.7 X10^3/uL (2.0-7.7); Basophil# 0.01 X10^3/uL; Basophil% 0.1 % (0-1); Eosinophil# 0.25 X10^3/uL; Eosinophils% 3.7 % (0-5); Hematocrit 22.9 % (40-54); Hemoglobin 7.7 g/dL (13.0-16.5); Lymphocyte # 1.16 X10^3/ul (0.83-4.51); Lymphocyte % 17.4 % (19-41); Mean Corp Hgb Conc 33.6 g/dL (32-36); Mean Corpuscular Hgb 30.3 pg (27.0-32.0); Mean Corpuscular Volume 90.2 fL (80-94); Mean Platelet Vol. 11.5 fl (6.2-12.0); Monocyte# 0.49 X10^3/uL; Monocyte% 7.3 % (0-10); NRBC Flagged by Analyzer 0 % (0-5); Neutrophil # 4.74 X10^3/uL (2.7-7.7); Neutrophil % 71.1 % (47-70); Platelet Count 155 K/mm3 (150-450); RBC Distribution Width CV 13.8 % (11.6-14.6); RBC Distribution Width SD 44.5 fl (35.1-43.9); Red Blood Count 2.54 M/mm3 (4.6-6.2); White Blood Count 6.7 K/mm3 (4.4-11.0)
[2023-06-08 08:00] VITALS: BP 122/71; PULSE 66; RESP 18; TEMP 36.6; O2SAT 98
[2023-06-08 08:02] LABS: Anion Gap 5 (5-15); BUN 15 mg/dL (7-18); BUN/Creat Ratio 17.1 RATIO (10-20); Calcium,Total 8.3 mg/dL (8.5-10.1); Chloride 109 mmol/L (98-107); Creatinine, Serum 0.88 mg/dL (0.70-1.30); EST Glomerular Filtration Rate 90 mL/min (>60); Est Glom Filt Rate - Afr Amer 109 mL/min (>60); Estimated Creatinine Clearance 81.97 ml/min; Glucose 119 mg/dL (74-106); Potassium 3.7 mmol/L (3.5-5.1); Sodium Level 142 mmol/L (136-145)
[2023-06-08] MEDS: Pantoprazole Sodium 40 MG in 0.9% Normal Saline (100mL MB+) 100 ML 330 MG IV (09:19)
--- NOTE | 2023-06-08 11:46 | CASEMGMT ---
Social Work- Yoselin from [facility] arrived for a bedside eval of pt top determine acceptance. Pt will be accepted at [facility]. Cln met with pt and pt son, Edin to confirm agreement. Pt and son express agreement and were updated on process of precert and transfer. Edin states that the family will provide transportation. Son, Red, will be arriving later and family will update him on status. Plan: [facility]; following precert BETZAIDA Ferrari
--- NOTE | 2023-06-08 11:50 | CASEMGMT ---
Social Work SW let [facility] know that family chose a different facility, sent message via [employer] and a voicemail. NICHOLAS Hobson
--- NOTE | 2023-06-08 11:57 | TREXTCAR_ITS ---
Diet Diet Order/Speech Therapy: 06/07/23 10:55 Diet: Regular - General Is pt able to select menu?: Yes Routine Orders/Code Status Change Sanz Catheter: PRN Problem/Diagnosis (1) Upper GI bleed: Status: Acute Code(s): K92.2 - Gastrointestinal hemorrhage, unspecified Plan Acute blood loss anemia * currently stable * secondary to upper GI bleed * Hemoglobin 6.3 improved to 7.4 after 2 units of blood ordered in the ER. Currently stable. * Transfused 1 unit PRBC on 06/05. Hg improved. * Started every other day ferrous sulfate GI bleed * Change pantoprazole to 40 BID. * EGD on 06/04: oozing gastric ulcer with visible vessel that was jected and heater probe. * Does not take chronic anticoagulants or antiplatelets and according to family he only took Aleve/ibuprofen yesterday for the first time for his hip pain SERAFIN * resolved * Monitor * May be post obstructive. Urinary retention * catheter dc'd 06/04, however, today, pt only had scant urine output. Bladder scanned for +1200 cc urine. * replace sanz. Start tamsulosin * Follow up with as outpt. * Pt at high-risk of self-discontinuation of sanz, however, with his pronounced urinary retention, would pose a greater risk with potential of SERAFIN, hydronephrosis and agitation. Chronic conditions: * Essential HTN/HLD: Blood pressure stable, Can resume his home blood pressure medications, will hold his lisinopril and hydrochlorothiazide secondary to his SERAFIN, Continue with Lipitor * Dementia? Diagnosed about 1 year ago. Reorientation as able. Family interested to see if he could go to SNF before going home. DVT: SCDs Disposition: TBD. For discharge. Waiting on authorization for retirement facility. Allergies/Procedures Done in Hospital Allergies No Known Allergies Allergy (Verified 06/04/23 19:04) Type of Care/Length of Stay Estimated LOS: Convalescent Care Less Than 30 days Type of Care Needed: Skilled Rehab Potential: Fair Prognosis: Fair Additional Orders/Day of Discharge Day of Discharge: 06/08/23 Dietary and Speech Recommendations Dietitian Recommendations/Changes: ADAT to Regular diet when medically able to optimize oral intakes. Discharge Plan Admission Admit Date/Time: 06/04/23 22:34 Primary Reason for Your Visit: GI bleed. Attending Provider: Usman Romeo Primary Care Provider: Moiz Tobias Consulting Providers: Matthew Snow Discharge Orders/Prescriptions Prescriptions: New ferrous sulfate [FeroSul] 325 mg (65 mg iron) Tablet 325 mg PO Q48 Qty: 0 0RF quetiapine 25 mg Tablet 25 mg PO DINNER Qty: 0 0RF melatonin 3 mg Tablet 3 mg PO QHS PRN (Reason: Insomnia) Qty: 0 0RF tamsulosin 0.4 mg Capsule 0.4 mg PO DAILY@1730 Qty: 0 0RF pantoprazole [Protonix] 40 mg tablet,delayed release (DR/EC) 40 mg PO BID 10 Days Qty: 20 0RF Continued atorvastatin 10 mg tablet 20 mg PO DAILY donepezil 5 mg tablet 5 mg PO DAILY amlodipine 2.5 mg tablet 2.5 mg PO DAILY Discontinued hydrochlorothiazide 12.5 mg capsule 25 mg PO DAILY lisinopril 40 mg tablet 40 mg PO DAILY Referrals / Follow Up: Moiz Tobias MD [Primary Care Provider] - Within 2 Weeks [facility] [Provider Group] - Within 3 Months Ector Eric MD [Med Staff - Active Staff] - Within 1 Month Disposition Disposition (needs filled in before D/C Order can be placed): [facility]
[2023-06-08] MEDS: Ferrous Sulfate 325 MG Tablet PO (12:18)
--- NOTE | 2023-06-08 13:49 | CASEMGMT ---
Social Work SW completed the hospital exemption in the [facility] system. NICHOLAS Hobson
[2023-06-08 14:45] VITALS: BP 117/70; PULSE 70; RESP 18; TEMP 37; O2SAT 99
--- NOTE | 2023-06-08 15:30 | DS.PCM_ITS ---
Providers Date of Admission: 06/04/23 Primary Care Physician: Dr. Moiz Tobias MD Consultations 06/04/23 23:29 Consult: Gastroenterology Routine Consulting Provider: [facility] Reason for Consult: UGIB EMERGENT Consult: No MD Notified: Yes Date Notified: 06/04/23 Time Notified: 22:36 Method of Notification: ED Physician Initiated Reason For Visit: UGIB Diagnosis Discharge Diagnosis (1) Upper GI bleed: Status: Acute Code(s): K92.2 - Gastrointestinal hemorrhage, unspecified Plan Acute blood loss anemia * currently stable * secondary to upper GI bleed * Hemoglobin 6.3 improved to 7.4 after 2 units of blood ordered in the ER. Currently stable. * Transfused 1 unit PRBC on 06/05. Hg improved. * Started every other day ferrous sulfate GI bleed * Change pantoprazole to 40 BID. * EGD on 06/04: oozing gastric ulcer with visible vessel that was jected and heater probe. * Does not take chronic anticoagulants or antiplatelets and according to family he only took Aleve/ibuprofen yesterday for the first time for his hip pain SERAFIN * resolved * Monitor * May be post obstructive. Urinary retention * catheter dc'd 06/04, however, today, pt only had scant urine output. Bladder scanned for +1200 cc urine. * replace sanz. Start tamsulosin * Follow up with as outpt. * Pt at high-risk of self-discontinuation of sanz, however, with his pronounced urinary retention, would pose a greater risk with potential of SERAFIN, hydronephrosis and agitation. Chronic conditions: * Essential HTN/HLD: Blood pressure stable, Can resume his home blood pressure medications, will hold his lisinopril and hydrochlorothiazide secondary to his SERAFIN, Continue with Lipitor * Dementia? Diagnosed about 1 year ago. Reorientation as able. Family interested to see if he could go to SNF before going home. DVT: SCDs Disposition: TBD. For discharge. Waiting on authorization for assisted facility. Medications at Discharge Home Medications atorvastatin 10 mg tablet 20 mg PO DAILY 03/17/20 amlodipine 2.5 mg tablet 2.5 mg PO DAILY 06/04/23 donepezil 5 mg tablet 5 mg PO DAILY 06/04/23 ferrous sulfate 325 mg (65 mg iron) tablet (FeroSul) 325 mg PO Q48 #0 tabs 06/08/23 melatonin 3 mg tablet 3 mg PO QHS PRN Insomnia #0 tabs 06/08/23 pantoprazole 40 mg tablet,delayed release (Protonix) 40 mg PO BID 10 days #20 tabs 06/08/23 quetiapine 25 mg tablet 25 mg PO DINNER #0 tabs 06/08/23 tamsulosin 0.4 mg capsule 0.4 mg PO DAILY@1730 #0 caps 06/08/23 Hospital Course Operations None Procedures EGD Summary of Care Provided Hospital Course: Patient presents with increased confusion and was found to be anemic. Patient was transfused 2 units of packed red blood cells. Patient was noted to have bleeding gastric ulcer with visible vessel that was injected and treated with heater probe. Patient's hemoglobin did dip down again which he required another unit so he is has remained stable since then. Complicating his situation is he despite his appearance has very pronounced dementia. He appears well at times but then and at times becomes delirious and does require some reorientation. Family with his son's been very involved but they are not adequately able to care for him at home. Patient was unstable. Patient was approved and will be going to a assisted facility. Weight / BMI Weight Weight: 90 kg Body Mass Index (BMI) 26.2 ABG / Lab / Microbiology Data 06/08/23 07:00 06/08/23 07:00 Laboratory: Laboratory Results - last 24 hr 06/08/23 07:00: WBC 6.7, RBC 2.54 L, Hgb 7.7 L, Hct 22.9 L, MCV 90.2, MCH 30.3, MCHC 33.6, RDW Std Deviation 44.5 H, RDW Coeff of Eugene 13.8, Plt Count 155, MPV 11.5, Immature Gran % (Auto) 0.400, Neut % (Auto) 71.1 H, Lymph % (Auto) 17.4 L, [place] % (Auto) 7.3, Eos % (Auto) 3.7, Baso % (Auto) 0.1, Absolute Neuts (auto) 4.7, Absolute Lymphs (auto) 1.16, Nucleated RBC % 0, Sodium 142, Potassium 3.7, Chloride 109 H, Carbon Dioxide 28.0, Anion Gap 5, BUN 15, Creatinine 0.88, Estim Creat Clear Calc 81.97, Est GFR (MDRD) Af Amer 109, Est GFR (MDRD) Non-Af 90, BUN/Creatinine Ratio 17.1, Glucose 119 H, Calcium 8.3 L Microbiology: Microbiology 06/04/23 21:30 Stool Stool Occult Blood (ARUN) - Final Occult Blood Positive Meaningful Use Info Meaningful Use Meaningful Use Diagnoses (Choose all that apply): None applicable Ischemic Stroke Statin Dosing Therapy Reference: STATIN DOSE THERAPY REFERENCE: * Patients > 75 years receive moderate or high dose statin therapy. * Patients 75 years or YOUNGER should receive HIGH intensity statin dose unless contraindicated. You will be required to document reason for non-treatment if statin daily dose does not meet guidelines. HIGH DOSE STATIN THERAPY DAILY Atorvastatin > than or = to 40 mg Rosuvastatin > than or = to 20 mg Amlodipine + Atorvastatin > than or = to 2.5/40 mg Ezetimibe + Simvastatin 10/80 mg Simvastatin 80mg Discharge Plan Admission Admit Date/Time: 06/04/23 22:34 Primary Reason for Your Visit: GI bleed. Attending Provider: Usman Romeo Primary Care Provider: Moiz Tobias Consulting Providers: Matthew Snow Discharge Orders/Prescriptions Prescriptions: New ferrous sulfate [FeroSul] 325 mg (65 mg iron) Tablet 325 mg PO Q48 Qty: 0 0RF quetiapine 25 mg Tablet 25 mg PO DINNER Qty: 0 0RF melatonin 3 mg Tablet 3 mg PO QHS PRN (Reason: Insomnia) Qty: 0 0RF tamsulosin 0.4 mg Capsule 0.4 mg PO DAILY@1730 Qty: 0 0RF pantoprazole [Protonix] 40 mg tablet,delayed release (DR/EC) 40 mg PO BID 10 Days Qty: 20 0RF Continued atorvastatin 10 mg tablet 20 mg PO DAILY donepezil 5 mg tablet 5 mg PO DAILY amlodipine 2.5 mg tablet 2.5 mg PO DAILY Discontinued hydrochlorothiazide 12.5 mg capsule 25 mg PO DAILY lisinopril 40 mg tablet 40 mg PO DAILY Referrals / Follow Up: [facility] [Provider Group] - Within 3 Months Moiz Tobias MD [Primary Care Provider] - Within 2 Weeks Ector Eric MD [Med Staff - Active Staff] - Within 1 Month Disposition Disposition (needs filled in before D/C Order can be placed): Jail Facility Charges/Coding Visit Charges Inpatient E&M: 84836 Disch Hosp
--- NOTE | 2023-06-08 15:52 | NURSING ---
Report called to Harinder at [facility] [phone]. Pt family will pick him up and take him there this evening.
--- NOTE | 2023-06-08 15:55 | PHA.DC.MR.R ---
Pharmacy [place] Med Reconciliation Pharmacy Service has performed discharge medication reconciliation for this patient. The patient's discharge medication list was reviewed for discrepancies and discrepancies were resolved. Medications at Discharge Home Medications atorvastatin 10 mg tablet 20 mg PO DAILY 03/17/20 amlodipine 2.5 mg tablet 2.5 mg PO DAILY 06/04/23 donepezil 5 mg tablet 5 mg PO DAILY 06/04/23 ferrous sulfate 325 mg (65 mg iron) tablet (FeroSul) 325 mg PO Q48 #0 tabs 06/08/23 melatonin 3 mg tablet 3 mg PO QHS PRN Insomnia #0 tabs 06/08/23 pantoprazole 40 mg tablet,delayed release (Protonix) 40 mg PO BID 10 days #20 tabs 06/08/23 quetiapine 25 mg tablet 25 mg PO DINNER #0 tabs 06/08/23 tamsulosin 0.4 mg capsule 0.4 mg PO DAILY@1730 #0 caps 06/08/23
[2023-06-08] MEDS: QUEtiapine 25 MG Tablet PO (16:07)
[2023-06-08] MEDS: Tamsulosin HCl 0.4 MG Capsule PO (16:07)
--- NOTE | 2023-06-08 17:00 | CASEMGMT ---
Social Work Precert attained, pt can go to [facility] today. KATHIA completed the hospital exemption in the [employer] system. SW sent all discharge paperwork and COVID result to [facility] via [facility]. SW spoke w/pt, he called son Edin and SW spoke w/son w/pt. He plans to pick pt up, will get pt to [facility] by 7pm. KATHIA let Arianna at [facility] know family will bring pt and should be there by 7pm. No further needs, pt to [facility], skilled, today. NICHOLAS Hobson
== END 2023-06-08 17:35 | disposition skilled nursing facility (03) | DRG 378 ==
LOC: ED 20:50 → MS3 22:46
PROVIDERS: Internal Medicine Gastroenterology; Admitting Provider Family Medicine; Emergency Provider Emergency Medicine; PCP Family Medicine
PROC: 0DJ08ZZ Inspection of Upper Intestinal Tract, Via Natural or Artificial Opening Endoscopic (ICD-10-PCS; CPT 43235; principal; 2023-06-05 17:10)
DX: K25.4 Chronic or unspecified gastric ulcer with hemorrhage (principal); N17.8 Other acute kidney failure; D62 Acute posthemorrhagic anemia; F03.90 Unspecified dementia, unspecified severity, without behavioral disturbance, psychotic disturbance, mood disturbance, and anxiety; I10 Essential (primary) hypertension; E78.5 Hyperlipidemia, unspecified; R33.9 Retention of urine, unspecified; Z79.899 Other long term (current) drug therapy
CPT/HCPCS: 36415; 70450; 71045; 74177; 80048; 80053; 81001; 82140; 82274; 84484; 85014; 85018; 85025; 86850; 86900; 86901; 86920; 86922; 87811; 88305; 88342; 93005; 97162; 97166; 97530; 99285; J7030; J7040; J7120; P9016; P9612; Q9967; A4216

== ENCOUNTER → 2023-06-11 | Outpatient (REF) | payer MEDICARE, SELFPAY ==
[2023-06-11 09:18] LABS: Hemoglobin 7.8 g/dL (13.0-16.5); Mean Corp Hgb Conc 32.5 g/dL (32-36); Mean Corpuscular Hgb 29.7 pg (27.0-32.0); Mean Corpuscular Volume 91.3 fL (80-94); Platelet Count 211 K/mm3 (150-450); RBC Distribution Width CV 13.7 % (11.6-14.6); RBC Distribution Width SD 44.9 fl (35.1-43.9); Red Blood Count 2.63 M/mm3 (4.6-6.2); White Blood Count 8.6 K/mm3 (4.4-11.0)
[2023-06-11 09:39] LABS: Anion Gap 5 (5-15); BUN 13 mg/dL (7-18); Calcium,Total 8.4 mg/dL (8.5-10.1); Chloride 109 mmol/L (98-107); Creatinine, Serum 0.93 mg/dL (0.70-1.30); EST Glomerular Filtration Rate 84 mL/min (>60); Est Glom Filt Rate - Afr Amer 102 mL/min (>60); Glucose 103 mg/dL (74-106); Potassium 3.8 mmol/L (3.5-5.1); Sodium Level 140 mmol/L (136-145)
== END ==
LOC: OLS.ACH 05:00
PROVIDERS: PCP Family Medicine; Visit Provider Internal Medicine
DX: D50.0 Iron deficiency anemia secondary to blood loss (chronic) (principal); K92.2 Gastrointestinal hemorrhage, unspecified
CPT/HCPCS: 36415; 80048; 85027

== ENCOUNTER → 2023-07-10 | Outpatient (CLI) | payer MEDICARE, SELFPAY ==
[2023-07-10 11:37] LABS: Hematocrit 31.1 % (40-54); Hemoglobin 9.7 g/dL (13.0-16.5)
== END | disposition home or self-care (01) ==
LOC: LAB 10:10
PROVIDERS: PCP Family Medicine; Referring Provider Internal Medicine Gastroenterology; Visit Provider Internal Medicine Gastroenterology
DX: D64.9 Anemia, unspecified (principal)
CPT/HCPCS: 36415; 85014; 85018

== ENCOUNTER → 2023-09-07 | Outpatient (CLI) | payer MEDICARE, SELFPAY ==
[2023-09-07 12:20] LABS: Absolute Lymphocyte Count 1.37 X10^3/uL (0.83-4.51); Absolute Neutrophil Count 5.9 X10^3/uL (2.0-7.7); Basophil# 0.03 X10^3/uL; Basophil% 0.4 % (0-1); Eosinophil# 0.25 X10^3/uL; Eosinophils% 3.1 % (0-5); Hematocrit 36.2 % (40-54); Hemoglobin 11.3 g/dL (13.0-16.5); Lymphocyte # 1.37 X10^3/ul (0.83-4.51); Lymphocyte % 16.9 % (19-41); Mean Corp Hgb Conc 31.2 g/dL (32-36); Mean Corpuscular Hgb 25.7 pg (27.0-32.0); Mean Corpuscular Volume 82.5 fL (80-94); Mean Platelet Vol. 11.1 fl (6.2-12.0); Monocyte# 0.52 X10^3/uL; Monocyte% 6.4 % (0-10); NRBC Flagged by Analyzer 0 % (0-5); Neutrophil % 72.8 % (47-70); Platelet Count 255 K/mm3 (150-450); RBC Distribution Width SD 48.6 fl (35.1-43.9); RET-HE 32.1 pg (30-35); Red Blood Count 4.39 M/mm3 (4.6-6.2); Reticulocyte Count 0.92 % (0.5-1.5); White Blood Count 8.1 K/mm3 (4.4-11.0)
[2023-09-07 12:50] LABS: Ferritin 18 ng/mL (26-388); Iron 57 ug/dL (65-175); Iron Binding Capacity,Total 350 ug/dL (250-450); LDH 210 U/L (87-241)
[2023-09-10 15:08] LABS: Albumin 3.8 g/dL (2.9-4.4); Alpha-1-Globulins 0.2 g/dL (0.0-0.4); Alpha-2-Globulins 0.8 g/dL (0.4-1.0); Endomysial Antibody IgA Negative (Negative); Gamma Globulin 0.7 g/dL (0.4-1.8); Immunoglobulin A 189 mg/dL (61-437); Immunoglobulin G 889 mg/dL (603-1613); Immunoglobulin M 82 mg/dL (15-143); PROEL- TOTAL PROTEIN 6.6 g/dL (6.0-8.5); t-Transglutaminase IgA <2 U/mL (0-3)
== END | disposition home or self-care (01) ==
LOC: LAB 11:32
PROVIDERS: PCP Family Medicine; Referring Provider Internal Medicine Gastroenterology; Visit Provider Internal Medicine Gastroenterology
DX: D64.9 Anemia, unspecified (principal)
CPT/HCPCS: 36415; 82728; 82784; 83516; 83540; 83550; 83615; 84165; 85025; 85045; 86255; 86334

== ENCOUNTER 2023-10-01 08:15 | Day surgery (SDC) | payer MEDICARE, SELFPAY ==
[2023-10-01 08:34] VITALS: BP 169/98; PULSE 59; RESP 16; TEMP 36.7; O2SAT 100; BMI 27.0
[2023-10-01] MEDS: Lactated Ringers 1,000 ML 15 ML IV (08:42)
--- NOTE | 2023-10-01 08:56 | HP.PCM_ITS ---
History and Physical Date of Admission: 10/01/23 AMBER SNIDER, is a 77 M who presents to the office today for initial consult. [facility] hospitalization 06.04.23 - 06.08.23 presents with his friend and his son because of increased confusion, near syncope, nausea, and jaundice. CT abd/pelvis 06.04.23 Nonspecific ileus. Diverticular disease of the descending colon without evidence for acute diverticulitis No evidence for small bowel obstruction or acute appendicitis EGD 06.05.23 Normal esophagus. Oozing gastric ulcer with a visible vessel. Injected. Treated with a heater probe. Non-bleeding gastric ulcer with no stigmata of bleeding. Biopsied. No gross lesions in the duodenal bulb. *BGI established 09.07.23 pt reports that he is feeling well overall, noting some fatigue, and denies GI symptoms of concern at this time. Pt reports normal bm; denies blood in the stool. Pt continues with pantoprazole and iron. ROS Const Constitutional: No fatigue, fever(s) or weight change ENT ENT: No difficulty swallowing Gastro GI: No abdominal pain, belching, bloating, change in bowel habits, change in stool character, coffee ground emesis, constipation, cramping, diarrhea, heartburn, difficulty swallowing, feeling full early, excessive flatus, incontinent of stools, Vomiting blood/hematemesis, Blood in stool, loose stools, Black,tarry stools, nausea/dyspepsia, pain with swallowing, vomiting or other Musc Musculoskeletal: Positive for abnormal gait, joint pain, back pain, joint swelling, muscle cramps and stiffness Skin Skin: No yellowing of the eye or itchy eyes Neuro Neurology: Positive for abnormal gait Psych Psychiatric: No anxiety and Positive for depression Endo Endocrine: No fatigue or weight change Aller/Imm Allergy/Immunologic: No itchy eyes Yosi/Lymp Hematologic/Lymphatic: No easy bleeding or easy bruising Exam Const General: cooperative and comfortable Nutritional Appearance: average body habitus and well nourished [facility] Head: normal to inspection Ears: hearing grossly normal bilaterally Nose: external nose normal Face and sinus: normal facial exam Mouth: oral mucosae normal Throat: posterior oropharynx normal Eyes General: appearance normal, both eyes and all related structures Neck Neck: normal visual inspection Chest Chest palpation & inspection: normal inspection of the chest and normal palpation of entire chest wall Resp Effort & Inspection: normal respiratory effort Auscultation: Bilateral: Clear to Auscultation Cardio Palpation: normal PMI Rate: regular rate Rhythm: regular rhythm GI Inspection: normal to inspection Auscultation: normal bowel sounds Percussion: normal to percussion Palpation: no hepatosplenomegaly Skin General: no rashes or lesions noted Neuro General: patient alert Extrem General: normal to inspection Psych Affect: normal affect Assessment and Plan Assessment and Plan (1) Anemia: Status: Acute (2) GI bleed: Status: Acute Plan: Acute blood loss anemia secondary to upper GI bleed/SERAFIN. His hemoglobin seems to be stable at this time. He is coming in for follow-up visit with his son. He has not had any signs or symptoms of GI bleeding. ? Findings: The examined esophagus was normal. One oozing cratered gastric ulcer with a visible vessel was found in the gastric body. The lesion was 6 mm in largest dimension. Area was successfully injected with 5 mL of a 0.1 mg/mL solution of epinephrine for drug delivery. Coagulation for hemostasis using heater probe was successful. One non-bleeding cratered gastric ulcer with no stigmata of bleeding was found in the cardia. The lesion was 4 mm in largest dimension. Biopsies were taken with a cold forceps for histology. Verification of patient identification for the specimen was done. Estimated blood loss was minimal. Biopsies were taken with a cold forceps for Helicobacter pylori testing. Verification of patient identification for the specimen was done. Estimated blood loss was minimal. No gross lesions were noted in the duodenal bulb. Impression: - Normal esophagus. - Oozing gastric ulcer with a visible vessel. Injected. Treated with a heater probe. - Non-bleeding gastric ulcer with no stigmata of bleeding. Biopsied. - No gross lesions in the duodenal bulb. Recommendation: - [facility] care. - Full liquid diet today. Advance diet as tolerated - Use Prilosec (omeprazole) 40 mg PO BID for 3 months. - Repeat upper endoscopy in 3 months for surveillance. I have examined the patient and the H&P has been reviewed. There are no clinical changes since date of exam.
--- NOTE | 2023-10-01 09:01 | PCM.PRE.AN2 ---
ASA Classification* ASA Classification ASA Classification: 2 Assessment & Plan Anesthesia* Anesthesia Assessment Anesthesia Assessment: Discussed sedation and/or anesthesia options, risks, benefits, and alternatives with patient/parents/legal guardian/POA. Questions invited. The patient/parents/legal guardian/POA seems to understand and agrees to proceed with anesthesia plan. Reviewed the physical assessment, medical history, allergy history and patient home medications list prior to surgery/procedure/anesthetic and documented any changes. Performed airway and anesthesia risk assessments. Anesthesia Type Anesthesia Type: MAC History Source History Obtained from:: Patient and Chart Anesthesia Focused Assessment* Temperature: 98.0 F Pulse Rate: 59 Blood Pressure: 169/98 Respiratory Rate: 16 Pulse Ox: 100 Oxygen Delivery Method: Room Air Airway Assessment Mouth opens: >3 cm Mallampati Score: I Teeth Condition: Caps/Crowns (Several molars. All tight.) Neck Range of motion (ROM): Limited ROM Pertinent Findings EKG Pertinent Findings:: June 04, 2023. Normal sinus rhythm. Left anterior fascicular block. Cannot rule out anterior infarct. This is minimally changed from March 10, 2020. Focused Labs Anesthesia Preop lab: CBC WBC 8.1 K/mm3 (4.4-11.0) 09/07/23 11:34 RBC 4.39 M/mm3 (4.6-6.2) L 09/07/23 11:34 Hgb 11.3 g/dL (13.0-16.5) L 09/07/23 11:34 Hct 36.2 % (40-54) L 09/07/23 11:34 Plt Count 255 K/mm3 (150-450) 09/07/23 11:34 CHEMISTRY Potassium 3.8 mmol/L (3.5-5.1) 06/11/23 07:42 Sodium 140 mmol/L (136-145) 06/11/23 07:42 Magnesium 2.0 mg/dL (1.6-2.6) 03/19/20 02:50 BUN 13 mg/dL (7-18) 06/11/23 07:42 Creatinine 0.93 mg/dL (0.70-1.30) 06/11/23 07:42 Glucose 103 mg/dL (74-106) 06/11/23 07:42 COAG PT 14.0 SECONDS (11.7-14.9) 03/18/20 21:30 Pre-Assessment Diagnosis/Proposed Procedure Planned Operative Procedure(s): EGD Anesthesia History Anesthesia History - family law mediator: Anesthesia History - family law mediator Hx Hospitalization Yes: 05/2023. DISORIENTED, 09/27/23 16:01 BLEEDING ULCER Any Problems With Anesthesia No 09/27/23 16:01 Cholinesterase deficiency No 09/27/23 16:01 You/Your Family Experience No 09/27/23 16:01 fever (hyperthermia) with Relationship Recent Exposure to Contagious No 10/01/23 08:34 Disease Does patient have nerve No 09/27/23 16:01 stimulator Patient instructed to have device shut off --Does patient have Pacemaker No 10/01/23 08:34 or ICD? When Was Last Pacemaker Check QUESTION #4 FULL TEXT: You/Your Family Experience fever (hyperthermia) with Anesthesia Last Oral Intake Last Oral intake: Last Oral Intake NPO since 07:00 10/01/23 08:34 Meds taken in AM with sips of water? Meds patient instructed to take am of surgery Any additional information?: Yes NPO since: 07:00 Meds taken in AM with sips of water?: Yes PONV PONV - family law mediator: PONV - family law mediator Female No 09/27/23 16:01 HX of Motion Sickness No 09/27/23 16:01 HX of N/V After Surgery No 09/27/23 16:01 Non-Smoker Yes 09/27/23 16:01 Duration of Surgery greater No 09/27/23 16:01 than 60 minutes Number of Risk Factors 1 09/27/23 16:01 PONV Score Low Risk 09/27/23 16:01 Height & Weight Height & Weight: Anesthesia: Height & Weight Height 5 ft 11 in 10/01/23 08:34 Weight: 88 kg 10/01/23 08:34 Body Mass Index (BMI) 27.0 10/01/23 08:34 Respiratory Assessment Respiratory Assessment - family law mediator: Respiratory Tract Infection Hx - family law mediator Hx Respiratory Tract Infection No 09/27/23 16:01 STOP Sleep Apnea STOP Sleep Apnea - family law mediator: STOP Sleep Apnea - family law mediator Hx Hypertension Yes: CONTROLLED WITH MED 09/27/23 16:01 Hx Sleep Apnea Yes 09/27/23 16:01 CPAP Yes: NONCOMPLIANT 09/27/23 16:01 BIPAP No 09/27/23 16:01 Do you snore loudly (louder No 09/27/23 16:01 than talking or can be heard Do you often feel tired/ Yes 09/27/23 16:01 fatigued/ sleepy during daytime? Has anyone observed you stop No 09/27/23 16:01 breathing during sleep? STOP Results Positive 09/27/23 16:01 QUESTION #5 FULL TEXT : Do you snore loudly (louder than talking or can be heard through closed doors)? 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 Specify any problems Hx of Preganancy in last 3 N/A 09/27/23 16:01 Months Nurse Filling Out Transfusion DSCHRIBER 09/27/23 16:01 & Questions: Date: 09/27/23 09/27/23 16:01 Time: 16:04 09/27/23 16:01 Patient unable to answer at this time (ie. confused, unrespo /Reproduction History /Reproductive History - family law mediator: /Reproductive Hx- family law mediator Hx Now No 09/27/23 16:01 Gestational Age (in weeks): EDC: Hx Hx Para Hx Section SAB No 09/27/23 16:01 Active Medications Active Medications: Current Medications Generic Name Dose Route Start Last Admin Trade Name Freq PRN Reason Stop Dose Admin Lactated Ringer's 1,000 mls @ 15 mls/hr 10/01/23 08:30 10/01/23 08:42 IV 15 mls/hr .Q48H SONIDO Administration PFSH Medical History (Updated 09/27/23 @ 16:10 by Janice Conway) Lives in assisted living facility Wears glasses Anxiety Alcohol use History of renal disease Arthritis Anemia Syncope History of ulceration Non-smoker History of pain when walking Dementia Colon polyps Macular degeneration Hypertension Hyperlipidemia BPH (benign prostatic hyperplasia) Elevated BP without diagnosis of hypertension Hypoxia Severe sepsis Pneumonia due to COVID-19 virus Home Medications ?Medication ?Instructions ?Recorded ?Last Taken ?Type atorvastatin 10 mg tablet 20 mg PO DAILY 03/17/20 06/04/23 History donepezil 5 mg tablet 10 mg PO DAILY 06/04/23 10/01/23 History pantoprazole 40 mg tablet,delayed 40 mg PO DAILY #30 tabs 09/11/23 10/01/23 Rx release (Protonix) cyanocobalamin (vitamin B-12) 1,000 mcg PO DAILY 09/28/23 Unknown History 1,000 mcg tablet ferrous sulfate 325 mg (65 mg 325 mg PO TID 09/28/23 Unknown History iron) tablet (FeroSul) fluticasone propionate 50 2 spray intranasal DAILY PRN PRN 09/28/23 Unknown History mcg/actuation nasal nasal congestion spray,suspension lisinopril 40 mg tablet 40 mg PO DAILY 09/28/23 10/01/23 History Allergy/AdvReac Type Severity Reaction Status Date / Time No Known Allergies Allergy Verified 10/01/23 08:33 Family History (Updated 06/04/23 @ 22:[address] Matthew Snow MD) Other CVA (cerebral vascular accident) Surgical History (Updated 09/27/23 @ 16:10 by Janice Conway) History of lumbar spinal fusion Hx of inguinal hernia repair Hx of sinus surgery Hx of esophagogastroduodenoscopy Social History Smoking Status: Never smoker Review of Systems (Anesthesia) ROS Narrative System reviewed and no additional complaints, except as documented.
[2023-10-01 09:12] VITALS: BP 169/98; PULSE 59; RESP 16; TEMP 36.7; O2SAT 100
--- NOTE | 2023-10-01 09:30 | EGD_PTH ---
PATIENT: AMBER SNIDER LOC: EN U#:[id number] AGE/SX: 77/M ROOM: RE10/01/[address]: Dr. Sarkis Lopes DO : 1945 BED: DIS: 10/01/2023 SPEC #: [id number] RECD: 10/01/23 12:41 STATUS: LÁZARO RETiff #: [id number] LUCY: 10/01/23 09:[address]: Sarkis Lopes DEPT: SURGICAL PATHOLOGY RECD BY: Dedra Guzman ENTERED: 10/01/23 13:16 SP TYPE: EGD BIOPSY OT DR: Dr. Moiz Tobias MD Tissues: Gastric mucous membrane Procedures: Surgery Specimen Level IV HEADER OPERATION: EGD with biopsy and cautery using gold probe PRE-OP DIAGNOSIS: Anemia, GI bleed TISSUE SUBMITTED: Gastric antrum biopsy MICROSCOPIC DIAGNOSIS Gastric antrum, biopsy: Chronic gastritis. See comment. CODIE/ 10/02/2023 COMMENT The results of immunohistochemistry for Helicobacter pylori will be reported separately ([id number]). MICROSCOPIC DESCRIPTION Slides are reviewed. GROSS DESCRIPTION Received in fixative is one container labeled with the patient's name and designated Gastric antrum biopsy. The specimen consists of two irregular fragments of light gao soft tissue that in aggregate measure 0.6 x 0.3 x 0.1 cm. The specimen is totally submitted in one cassette. 10/01/2023 TC:3 CPT:77073
--- NOTE | 2023-10-01 09:30 | IMM_PTH ---
PATIENT: AMBER SNIDER LOC: EN U#:[id number] AGE/SX: 77/M ROOM: RE10/01/[address]: Dr. Sarkis Lopes DO : 1945 BED: DIS: 10/01/2023 SPEC #: [id number] RECD: 10/01/23 13:44 STATUS: LÁZARO REQ #: [id number] LUCY: 10/01/23 09:[address]: Sarkis Lopes DEPT: IMMUNOHISTOCHEMISTRY RECD BY: Terrence Marino ENTERED: 10/01/23 13:45 SP TYPE: IMMUNO OTHR DR: Dr. Moiz Tobias MD Tissues: Gastric mucous membrane Procedures: H Pylori (initial) PHYSICIAN & INSTITUTION [place] [id number] SPECIMEN INFORMATION: Tissue Source: Gastric antrum Clinical Info: Anemia, GI bleed Specimen Number: [id number] CPT code: 84954 METHODOLOGY: Deparaffinized sections of prefer/formalin-fixed tissue or PAP/DQ stained slides are incubated with monoclonal/polyclonal antibodies/oligonucleotide probes. Localization is made via biotin free immunoperoxidase method. Appropriate controls are performed and reacted as expected. Results on target cell population are indicated in the following table: RESULTS: ANTIBODY / CLONE RESULT H Pylori (polyclonal) negative These tests were developed and their performance characteristics determined by [facility]. They may not have been cleared or approved by the U.S. Food and Drug Administration. The FDA has determined that such clearance or approval is not necessary. The above immunohistochemical/dualISH markers are ordered and reviewed by the Pathologist. INTERPRETATION: Gastric antrum, biopsy: Negative for Helicobacter pylori organisms. CODIE/ 10/02/2023
[2023-10-01 10:00] VITALS: BP 135/85; BP 169/98; PULSE 50; RESP 18; TEMP 36.4; O2SAT 97
--- NOTE | 2023-10-01 10:00 | OP.EGD_ITS ---
Patient Name: Homero Maria Procedure Date: 10/01/2023 9:40 AM Date of : 1945 Age: 77 Procedure: Upper GI endoscopy Indications: Peptic ulcer Providers: Sarkis Lopes DO Medicines: Monitored Anesthesia Care Patient Profile: This is a 77 year old male. Refer to note in patient chart for documentation of history and physical. Patient has symptoms. Complications: No immediate complications. Procedure: Pre-Anesthesia Assessment: - Prior to the procedure, a History and Physical was performed, and patient medications and allergies were reviewed. The patient is competent. The risks and benefits of the procedure and the sedation options and risks were discussed with the patient. All questions were answered and informed consent was obtained. Patient identification and proposed procedure were verified by the physician in the pre-procedure area. Mental Status Examination: alert and oriented. Airway Examination: normal oropharyngeal airway and neck mobility. Respiratory Examination: clear to auscultation. CV Examination: normal. Prophylactic Antibiotics: The patient does not require prophylactic antibiotics. Prior Anticoagulants: The patient has taken no anticoagulant or antiplatelet agents. ASA Grade Assessment: II - A patient with mild systemic disease. After reviewing the risks and benefits, the patient was deemed in satisfactory condition to undergo the procedure. The anesthesia plan was to use moderate sedation / analgesia (conscious sedation). Immediately prior to administration of medications, the patient was re-assessed for adequacy to receive sedatives. The heart rate, respiratory rate, oxygen saturations, blood pressure, adequacy of pulmonary ventilation, and response to care were monitored throughout the procedure. The physical status of the patient was re-assessed after the procedure. After obtaining informed consent, the endoscope was passed under direct vision. Throughout the procedure, the patient's blood pressure, pulse, and oxygen saturations were monitored continuously. The was introduced through the mouth, and advanced to the second part of duodenum. The upper GI endoscopy was accomplished without difficulty. The patient tolerated the procedure well. Scope In: 9:48:44 AM Scope Out: 9:54:40 AM Total Procedure Duration Time 0 hours 5 minutes 56 seconds Findings: The examined esophagus was moderately tortuous. A single 5 mm angiodysplastic lesion with bleeding was found at the incisura. Coagulation for hemostasis using heater probe was successful. Estimated blood loss was minimal. Localized mild inflammation characterized by erosions and erythema was found in the gastric antrum. Biopsies were taken with a cold forceps for histology. Verification of patient identification for the specimen was done. Biopsies were taken with a cold forceps for Helicobacter pylori testing. Verification of patient identification for the specimen was done. Estimated blood loss was minimal. The second portion of the duodenum was normal. Impression: - Tortuous esophagus. - A single bleeding angiodysplastic lesion in the stomach. Treated with a heater probe. - Chronic gastritis. Biopsied. - Normal second portion of the duodenum. Recommendation: - Discharge patient to home. - Resume previous diet. - Continue present medications. - Await pathology results. Procedure Code(s): --- Professional --- 57062, 59, Esophagogastroduodenoscopy, flexible, transoral; with control of bleeding, any method 37273, 51, Esophagogastroduodenoscopy, flexible, transoral; with biopsy, single or multiple CPT copyright 2021 [employer]. All rights reserved. The codes documented in this report are preliminary and upon belt splicer review may be revised to meet current compliance requirements. Sarkis Lopes DO 10/01/2023 9:59:33 AM This report has been signed electronically. Number of Addenda: 0 Note Initiated On: 10/01/2023 9:40 AM
--- NOTE | 2023-10-01 10:00 | OP.CCLET_ITS ---
10/01/2023 Moiz Tobias Re : Upper GI endoscopy procedure for Homero Maria Dear Jatinder This procedure was performed on Sunday, October 01, 2023. My impressions and recommendations are as follows: Impressions : - Tortuous esophagus. - A single bleeding angiodysplastic lesion in the stomach. Treated with a heater probe. - Chronic gastritis. Biopsied. - Normal second portion of the duodenum. Recommendations : - Discharge patient to home. - Resume previous diet. - Continue present medications. - Await pathology results. My findings are described in the full procedure note, which is enclosed. If I can be of further assistance, please feel free to contact me at . Sincerely, Srakis Lopes, 10/01/2023 9:59:33 AM This report has been signed electronically.
--- NOTE | 2023-10-01 10:04 | PCM.POST.ANE ---
Anesthesia: Postop Eval I Current Vital Signs Temperature: 97.5 F Pulse Rate: 54 Blood Pressure: 135/85 Respiratory Rate: 14 Pulse Ox: 98 Oxygen Delivery Method: Room Air Assessment Airway patent: Yes Spontaneous unlabored respirations: Yes Mental status: Asleep nausea: No Vomiting: No Anesthesia Complication: No Fluid Hydration Crystalloid volume administer (ml): 400 Total IV fluid infused: 400 Progress Note Anesthesia document: Postop Eval 1 completed: Yes
[2023-10-01 10:05] VITALS: BP 135/85; BP 137/81; BP 169/98; PULSE 47; PULSE 54; RESP 14; RESP 18; TEMP 36.4; O2SAT 97; O2SAT 98
[2023-10-01 10:10] VITALS: BP 143/90; BP 169/98; PULSE 54; RESP 18; O2SAT 98
[2023-10-01 10:15] VITALS: BP 157/88; BP 169/98; PULSE 52; RESP 18; TEMP 36.1; O2SAT 98
--- NOTE | 2023-10-01 11:56 | PCM.POSTANE2 ---
Anesthesia Postop Eval I Sum Postop Eval Completion status Anesthesia document: Postop Eval 1 completed: Yes Anesthesia Postop Eval I Summary Anesthesia Postop Eval I Summary: Anesthesia Postop Eval I: Assessment Summary Airway patent Yes 10/01/23 10:05 [email or web address] Spontaneous unlabored Yes 10/01/23 10:05 [email or web address] respirations Mental status Asleep 10/01/23 10:05 [email or web address] nausea No 10/01/23 10:05 [email or web address] Vomiting No 10/01/23 10:05 [email or web address] Anesthesia Postop Eval I: Fluid Summary Crystalloid volume administer 400 10/01/23 10:05 [email or web address] (ml) Colloids volume administered ( ml) Blood Product volume administered (ml) Total IV fluid infused 400 10/01/23 10:05 [email or web address] Anesthesia Postop Eval I: Summary Notes Anesthesia Complication No 10/01/23 10:05 [email or web address] Anesthesia Complication Comment: Post-operative progress note Anesthesia: Postop Eval II Evaluation Mental status: Awake and Calm Pain Level: 0 nausea: No Vomiting: No Complications Anesthesia Complication: No
== END 2023-10-01 10:43 | disposition home or self-care (01) ==
LOC: EN 08:16 → AC 08:19
PROVIDERS: PCP Family Medicine; Referring Provider Family Medicine; Visit Provider Internal Medicine Gastroenterology
PROC: 0DJ08ZZ Inspection of Upper Intestinal Tract, Via Natural or Artificial Opening Endoscopic (ICD-10-PCS; CPT 43235; principal; 2023-10-01 09:25)
DX: K31.811 Angiodysplasia of stomach and duodenum with bleeding (principal); K29.50 Unspecified chronic gastritis without bleeding; D62 Acute posthemorrhagic anemia; I10 Essential (primary) hypertension; Z79.899 Other long term (current) drug therapy
CPT/HCPCS: 43255; 43239; 88305; 88342; J7120; J2405

== ENCOUNTER 2023-12-03 09:00 | Outpatient (CLI) | payer MEDICARE, SELFPAY ==
[2023-12-13 16:48] LABS: Albumin, Serum 3.8 g/dL (3.2-5.0); Magnesium 2.2 mg/dL (1.6-2.6)
[2023-12-13 16:58] LABS: International Normalized Ratio 1.1; Prothrombin Time (Protime)PT. 13.8 SECONDS (11.7-14.9)
[2023-12-13 16:59] LABS: Partial Thromboplast Time 30.2 Seconds (24.1-36.2)
== END 2023-12-03 23:00 | disposition home or self-care (01) ==
LOC: SDC 04-24 09:52
PROVIDERS: PCP Family Medicine; Referring Provider Specialist; Visit Provider Specialist
DX: Z01.818 Encounter for other preprocedural examination (principal)
CPT/HCPCS: 36415; 82040; 83735; 85610; 85730; 87081

== ENCOUNTER 2024-03-31 05:34 | Day surgery (SDC) | payer MEDICARE, SELFPAY ==
--- NOTE | 2024-03-28 09:18 | PAT.ANESEVAL ---
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 When Was Last Pacemaker Check QUESTION #4 FULL TEXT: You/Your Family Experience fever (hyperthermia) with Anesthesia Last Oral Intake Last Oral intake: Last Oral Intake NPO since Meds taken in AM with sips of water? 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 - medical office professional instructor: PONV - medical office professional instructor Female No 03/27/24 11:03 HX of Motion Sickness No 03/27/24 11:03 HX of N/V After Surgery No 03/27/24 11:03 Non-Smoker Yes 03/27/24 11:03 Duration of Surgery greater No 03/27/24 11:03 than 60 minutes Number of Risk Factors 1 03/27/24 11:03 PONV Score Low Risk 03/27/24 11:03 Height & Weight Height & Weight: Anesthesia: Height & Weight Height 5 ft 11 in 10/12/23 09:09 Respiratory Assessment Respiratory Assessment - medical office professional instructor: Respiratory Tract Infection Hx - medical office professional instructor Hx Respiratory Tract Infection No 03/27/24 11:03 STOP Sleep Apnea STOP Sleep Apnea - medical office professional instructor: STOP Sleep Apnea - medical office professional instructor Hx Hypertension Yes 03/27/24 11:03 Hx Sleep Apnea Yes 03/27/24 11:03 CPAP No 03/27/24 11:03 BIPAP No 03/27/24 11:03 Do you snore loudly (louder than talking or can be heard Do you often feel tired/ fatigued/ sleepy during daytime? Has anyone observed you stop breathing during sleep? STOP Results Positive 03/27/24 11:03 QUESTION #5 FULL TEXT : Do you snore loudly (louder than talking or can be heard through closed doors)? 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 Specify any problems Hx of Preganancy in last 3 N/A 03/27/24 11:03 Months Nurse Filling Out Transfusion [email or web address] 03/27/24 11:03 & Questions: Date: 03/27/24 03/27/24 11:03 Time: 11:05 03/27/24 11:03 Patient unable to answer at this time (ie. confused, unrespo /Reproduction History /Reproductive History - medical office professional instructor: /Reproductive Hx- medical office professional instructor Hx Now Gestational Age (in weeks): EDC: Hx Hx Para Hx Section SAB No 12/03/23 09:38 PFSH Medical History (Updated 03/27/24 @ 11:11 by Yasmani Shrestha) History of echocardiogram History of stress test Cardiology follow-up encounter Open wound Lives in assisted living facility Wears glasses Anxiety Alcohol use History of renal disease Arthritis Anemia Syncope History of ulceration Non-smoker History of pain when walking Dementia Colon polyps Macular degeneration Hypertension Hyperlipidemia BPH (benign prostatic hyperplasia) Elevated BP without diagnosis of hypertension Hypoxia Severe sepsis Pneumonia due to COVID-19 virus Home Medications ?Medication ?Instructions ?Recorded ?Last Taken ?Type donepezil 5 mg tablet 10 mg PO DAILY 06/04/23 10/01/23 History pantoprazole 40 mg tablet,delayed 40 mg PO DAILY #30 tabs 09/11/23 10/01/23 Rx release (Protonix) fluticasone propionate 50 2 spray intranasal DAILY PRN PRN 09/28/23 Unknown History mcg/actuation nasal nasal congestion spray,suspension acetaminophen 500 mg capsule 1,000 mg PO Q6H PRN pain 03/27/24 Unknown History apixaban 5 mg tablet (Eliquis) 5 mg PO BID 03/27/24 Unknown History ascorbic acid (vitamin C) 500 mg 500 mg PO DAILY 03/27/24 Unknown History tablet (Vitamin C) aspirin 81 mg capsule 162 mg PO DAILY 03/27/24 Unknown History atorvastatin 40 mg tablet 40 mg PO DAILY 03/27/24 Unknown History cholecalciferol (vitamin D3) 25 25 mcg PO DAILY 03/27/24 Unknown History mcg (1,000 unit) capsule (Vitamin D3) cyanocobalamin (vitamin B-12) 1,000 mcg PO DAILY 03/27/24 Unknown History 1,000 mcg tablet ferrous sulfate 325 mg (65 mg 325 mg PO DAILY 03/27/24 Unknown History iron) tablet (FeroSul) folic acid 0.8 mg capsule 800 mcg PO DAILY 03/27/24 Unknown History furosemide 40 mg tablet (Lasix) 40 mg PO BID 03/27/24 Unknown History magnesium 200 mg tablet 400 mg PO DAILY 03/27/24 Unknown History metoprolol succinate 25 mg 12.5 mg PO TID 03/27/24 Unknown History tablet,extended release 24 hr potassium chloride 20 mEq oral 20 meq PO DAILY 03/27/24 Unknown History packet (Klor-Con) sennosides 8.6 mg-docusate sodium 1 tab-cap PO QHS 03/27/24 Unknown History 50 mg tablet (Senna Plus) tamsulosin 0.4 mg capsule 0.4 mg PO BID 03/27/24 Unknown History vitamins A,C,X-xkhe-terdhl 2,148 2 tab PO DAILY 03/27/24 Unknown History mcg-113 mg-45 mg-17.4 mg tablet (Eye Multivitamin) Allergy/AdvReac Type Severity Reaction Status Date / Time No Known Allergies Allergy Verified 03/27/24 10:54 Family History Other CVA (cerebral vascular accident) Surgical History (Updated 03/27/24 @ 11:11 by Yasmani Shrestha) History of heart surgery History of lumbar spinal fusion Hx of inguinal hernia repair Hx of sinus surgery Hx of esophagogastroduodenoscopy Social History Smoking Status: Never smoker Audit: Pertinent Findings Pertinent Findings EKG Perinent findings: 06/04/2023 normal sinus rhythm 79 left anterior fascicular block cannot rule out anterior infarct Stress test pertinent findings: 12/21/2023 abnormal stress test Echo (EF%) pertinent findings: 12/14/2023 normal size function right ventricular systolic pressure 42 consistent with mild pulmonary hypertension EF 64% Consult pertinent findings: Cardiology scanned documents [facility] it appears that patient had CABG due to positive stress test Pulmonary function results/spirometer pertinent findings: Chest x-ray 06/04/2023 no acute cardiopulmonary pathology Recommendation Anesthesia Recommendation Anesthesia recommendation: OPTIMIZED for anesthesia
[2024-03-31] VITALS (12 sets, daily range): BP systolic 92–137; BP diastolic 61–92; PULSE 69–84; RESP 14–16; TEMP 36.7–37.1; O2SAT 93–97; BMI 30.1
--- NOTE | 2024-03-31 | GASB_PTH ---
PATIENT: AMBER SNIDER LOC: EN U#:[id number] AGE/SX: 78/M ROOM: RE03/31/[address]: Dr. Sarkis Lopes DO : 1945 BED: DIS: 03/31/2024 SPEC #: [id number] RECD: 03/31/24 09:43 STATUS: LÁZARO REQ #: [id number] LUCY: 03/31/24 00:[address]: Sarkis Lopes DEPT: SURGICAL PATHOLOGY RECD BY: Bhavin Haji ENTERED: 03/31/24 09:44 SP TYPE: Gastric Bx OTHR DR: Dr. Moiz Tobias MD Tissues: Gastric mucous membrane Procedures: Special Stain Group I Surgery Specimen Level IV Alcian Blue/PAS (control) HEADER OPERATION: EGD, biopsy PRE-OP DIAGNOSIS: Anemia, GI bleed TISSUE SUBMITTED: Gastric ulcer biopsy MICROSCOPIC DIAGNOSIS Gastric ulcer, biopsy: Moderate chronic active gastritis. Focal intestinal metaplasia (goblet cell metaplasia). See comment. 04/01/2024 COMMENT The results of immunohistochemistry for Helicobacter pylori will be reported separately ([id number]). Alcian blue/PAS stain with matched control is used in the evaluation of the specimen. MICROSCOPIC DESCRIPTION Slides are reviewed. GROSS DESCRIPTION Received in fixative is one container labeled with the patient's name and designated Gastric ulcer biopsy. The specimen consists of two irregular fragments of light gao soft tissue that in aggregate measure 0.8 x 0.5 x 0.1 cm. The specimen is totally submitted in one cassette. 03/31/2024 TC:2 CPT:14768,75722
--- NOTE | 2024-03-31 06:30 | IMM_PTH ---
PATIENT: AMBER SNIDER LOC: EN U#:[id number] AGE/SX: 78/M ROOM: RE03/31/[address]: Dr. Sarkis Lopes DO : 1945 BED: DIS: 03/31/2024 SPEC #: [id number] RECD: 03/31/24 10:11 STATUS: LÁZARO REQ #: [id number] LUCY: 03/31/24 06:[address]: Sarkis Lopes DEPT: IMMUNOHISTOCHEMISTRY RECD BY: Terrence Marino ENTERED: 03/31/24 10:11 SP TYPE: IMMUNO OTHR DR: Dr. Moiz Tobias MD Tissues: Gastric mucous membrane Procedures: H Pylori (initial) PHYSICIAN & INSTITUTION [place] [address] SPECIMEN INFORMATION: Tissue Source: Gastric ulcer biopsy Clinical Info: Anemia, GI bleed Specimen Number: [id number] CPT code: 70500 METHODOLOGY: Deparaffinized sections of prefer/formalin-fixed tissue or PAP/DQ stained slides are incubated with monoclonal/polyclonal antibodies/oligonucleotide probes. Localization is made via biotin free immunoperoxidase method. Appropriate controls are performed and reacted as expected. Results on target cell population are indicated in the following table: RESULTS: ANTIBODY / CLONE RESULT H Pylori (polyclonal) negative These tests were developed and their performance characteristics determined by [facility]. They may not have been cleared or approved by the [place]. Food and Drug Administration. The FDA has determined that such clearance or approval is not necessary. The above immunohistochemical/dualISH markers are ordered and reviewed by the Pathologist. INTERPRETATION: Gastric ulcer, biopsy: Negative for Helicobacter pylori organisms. 04/01/2024
--- NOTE | 2024-03-31 06:45 | PRE.ANES_ITS ---
ASA Classification* ASA Classification ASA Classification: 3 Assessment & Plan Anesthesia* Anesthesia Assessment Anesthesia Assessment: Discussed sedation and/or anesthesia options, risks, benefits, and alternatives with patient/parents/legal guardian/POA. Questions invited. The patient/parents/legal guardian/POA seems to understand and agrees to proceed with anesthesia plan. Reviewed the physical assessment, medical history, allergy history and patient home medications list prior to surgery/procedure/anesthetic and documented any changes. Performed airway and anesthesia risk assessments. Anesthesia Type Anesthesia Type: MAC Anesthesia Focused Assessment* Temperature: 98.5 F Pulse Rate: 84 Blood Pressure: 133/92 Respiratory Rate: 16 Pulse Ox: 97 Airway Assessment Mouth opens: >3 cm Mallampati Score: II Focused Labs Anesthesia Preop lab: CBC WBC 8.1 K/mm3 (4.4-11.0) 09/07/23 11:34 09/07/23 RBC 4.39 M/mm3 (4.6-6.2) L 09/07/23 11:34 09/07/23 Hgb 11.3 g/dL (13.0-16.5) L 09/07/23 11:34 4 Hct 36.2 % (40-54) L 09/07/23 11:34 09/07/23 Plt Count 255 K/mm3 (150-450) 09/07/23 11:34 09/07/23 CHEMISTRY Potassium 3.8 mmol/L (3.5-5.1) 06/11/23 07:42 06/11/23 Sodium 140 mmol/L (136-145) 06/11/23 07:42 06/11/23 Magnesium 2.2 mg/dL (1.6-2.6) 12/13/23 15:44 12/13/23 BUN 13 mg/dL (7-18) 06/11/23 07:42 06/11/23 Creatinine 0.93 mg/dL (0.70-1.30) 06/11/23 07:42 06/11/23 Glucose 103 mg/dL (74-106) 06/11/23 07:42 06/11/23 COAG PT 13.8 SECONDS (11.7-14.9) 12/13/23 15:44 Pre-Assessment Diagnosis/Proposed Procedure Planned Operative Procedure(s): EGD Anesthesia History 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 When Was Last Pacemaker Check QUESTION #4 FULL TEXT: You/Your Family Experience fever (hyperthermia) with Anesthesia Last Oral Intake Last Oral intake: Last Oral Intake NPO since 23:00 03/31/24 06:00 Meds taken in AM with sips of No 03/31/24 06:00 water? 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 Female No 03/27/24 11:03 HX of Motion Sickness No 03/27/24 11:03 HX of N/V After Surgery No 03/27/24 11:03 Non-Smoker Yes 03/27/24 11:03 Duration of Surgery greater No 03/27/24 11:03 than 60 minutes Number of Risk Factors 1 03/27/24 11:03 PONV Score Low Risk 03/27/24 11:03 Height & Weight Height & Weight: Anesthesia: Height & Weight Height 5 ft 11 in 03/31/24 06:00 Weight: 98 kg 03/31/24 06:00 Body Mass Index (BMI) 30.1 03/31/24 06:00 Respiratory Assessment Respiratory Assessment - heavy duty press operator: Respiratory Tract Infection Hx - heavy duty press operator Hx Respiratory Tract Infection No 03/27/24 11:03 STOP Sleep Apnea STOP Sleep Apnea - heavy duty press operator: STOP Sleep Apnea - heavy duty press operator Hx Hypertension Yes 03/27/24 11:03 Hx Sleep Apnea Yes 03/27/24 11:03 CPAP No 03/27/24 11:03 BIPAP No 03/27/24 11:03 Do you snore loudly (louder than talking or can be heard Do you often feel tired/ fatigued/ sleepy during daytime? Has anyone observed you stop breathing during sleep? STOP Results Positive 03/27/24 11:03 QUESTION #5 FULL TEXT : Do you snore loudly (louder than talking or can be heard through closed doors)? 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 Specify any problems Hx of Preganancy in last 3 N/A 03/27/24 11:03 Months Nurse Filling Out Transfusion [email or web address] 03/27/24 11:03 & Questions: Date: 03/27/24 03/27/24 11:03 Time: 11:05 03/27/24 11:03 Patient unable to answer at this time (ie. 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: /Reproductive Hx- heavy duty press operator Hx Now Gestational Age (in weeks): EDC: Hx Hx Para Hx Section SAB No 12/03/23 09:38 PFSH Medical History History of echocardiogram History of stress test Cardiology follow-up encounter Open wound Lives in assisted living facility Wears glasses Anxiety Alcohol use History of renal disease Arthritis Anemia Syncope History of ulceration Non-smoker History of pain when walking Dementia Colon polyps Macular degeneration Hypertension Hyperlipidemia BPH (benign prostatic hyperplasia) Elevated BP without diagnosis of hypertension Hypoxia Severe sepsis Pneumonia due to COVID-19 virus Home Medications ?Medication ?Instructions ?Recorded ?Last Taken ?Type donepezil 5 mg tablet 10 mg PO DAILY 06/04/2311/13 History pantoprazole 40 mg tablet,delayed 40 mg PO DAILY #30 t abs 09/11/23 03/30/24 Rx release (Protonix) fluticasone propionate 50 2 spray intranasal DAILY PRN PRN 09/28/23 Unknown History mcg/actuation nasal nasal congestion spray,suspension acetaminophen 500 mg capsule 1,000 mg PO Q6H PRN pain 03/27/24 03/30/24 History apixaban 5 mg tablet (Eliquis) 5 mg PO BID 03/27/24 History ascorbic acid (vitamin C) 500 mg 500 mg PO DAILY 03/2703/30/24 History tablet (Vitamin C) aspirin 81 mg capsule 162 mg PO DAILY 03/27/2411/13 History atorvastatin 40 mg tablet 40 mg PO DAILY 03/27/2411/13 History cholecalciferol (vitamin D3) 25 25 mcg PO DAILY 03/30/24 History mcg (1,000 unit) capsule (Vitamin D3) cyanocobalamin (vitamin B-12) 1,000 mcg PO DAILY 03/2703/30/24 History 1,000 mcg tablet ferrous sulfate 325 mg (65 mg 325 mg PO DAILY 03/27/24 03/30/24 History iron) tablet (FeroSul) folic acid 0.8 mg capsule 800 mcg PO DAILY 03/27/24 Un known History furosemide 40 mg tablet (Lasix) 40 mg PO BID 03/27/24 03/30/24 History magnesium 200 mg tablet 400 mg PO DAILY 03/27/2411/13 History metoprolol succinate 25 mg 12.5 mg PO TID 03/27/2411/13 History tablet,extended release 24 hr potassium chloride 20 mEq oral 20 meq PO DAILY 5 03/30/24 History packet (Klor-Con) sennosides 8.6 mg-docusate sodium 1 tab-cap PO QHS 08/1303/30/24 History 50 mg tablet (Senna Plus) tamsulosin 0.4 mg capsule 0.4 mg PO BID 03/27/2403/30 History vitamins A,C,S-nipp-mkesiz 2,148 2 tab PO DAILY 03/30/24 History mcg-113 mg-45 mg-17.4 mg tablet (Eye Multivitamin) Allergy/AdvReac Type Severity Reaction Status Date / Time No Known Allergies Allergy Verified 03/31/24 05:56 Family History Other CVA (cerebral vascular accident) Surgical History History of heart surgery History of lumbar spinal fusion Hx of inguinal hernia repair Hx of sinus surgery Hx of esophagogastroduodenoscopy Social History Smoking Status: Never smoker Review of Systems (Anesthesia) ROS Narrative System reviewed and no additional complaints, except as documented.
--- NOTE | 2024-03-31 06:52 | PCM.HP.STD ---
HPI - General General Date of Admission: 03/31/24 Date of Service: 03/31/24 Chief Complaint: Gastric ulcer HPI Narrative AMBER SNIDER, is a 78 M who presents for surviallence of gastric ulcer. [facility] hospitalization 06.04.23 - 06.08.23 presents with his friend and his son because of increased confusion, near syncope, nausea, and jaundice. CT abd/pelvis 06.04.23 Nonspecific ileus. Diverticular disease of the descending colon without evidence for acute diverticulitis No evidence for small bowel obstruction or acute appendicitis EGD 06.05.23 Normal esophagus. Oozing gastric ulcer with a visible vessel. Injected. Treated with a heater probe. Non-bleeding gastric ulcer with no stigmata of bleeding. Biopsied. No gross lesions in the duodenal bulb. *BGI established 09.07.23 pt reports that he is feeling well overall, noting some fatigue, and denies GI symptoms of concern at this time. Pt reports normal bm; denies blood in the stool. Pt continues with pantoprazole and iron. [facility] Medical History History of echocardiogram History of stress test Cardiology follow-up encounter Open wound Lives in assisted living facility Wears glasses Anxiety Alcohol use History of renal disease Arthritis Anemia Syncope History of ulceration Non-smoker History of pain when walking Dementia Colon polyps Macular degeneration Hypertension Hyperlipidemia BPH (benign prostatic hyperplasia) Elevated BP without diagnosis of hypertension Hypoxia Severe sepsis Pneumonia due to COVID-19 virus Home Medications ?Medication ?Instructions ?Recorded ?Last Taken ?Type donepezil 5 mg tablet 10 mg PO DAILY 06/04/23 03/30/24 History pantoprazole 40 mg tablet,delayed 40 mg PO DAILY #30 tabs 09/11/23 03/30/24 Rx release (Protonix) fluticasone propionate 50 2 spray intranasal DAILY PRN PRN 09/28/23 Unknown History mcg/actuation nasal nasal congestion spray,suspension acetaminophen 500 mg capsule 1,000 mg PO Q6H PRN pain 03/27/24 03/30/24 History apixaban 5 mg tablet (Eliquis) 5 mg PO BID 03/27/24 03/30/24 History ascorbic acid (vitamin C) 500 mg 500 mg PO DAILY 03/27/24 03/30/24 History tablet (Vitamin C) aspirin 81 mg capsule 162 mg PO DAILY 03/27/24 03/30/24 History atorvastatin 40 mg tablet 40 mg PO DAILY 03/27/24 03/30/24 History cholecalciferol (vitamin D3) 25 25 mcg PO DAILY 03/27/24 03/30/24 History mcg (1,000 unit) capsule (Vitamin D3) cyanocobalamin (vitamin B-12) 1,000 mcg PO DAILY 03/27/24 03/30/24 History 1,000 mcg tablet ferrous sulfate 325 mg (65 mg 325 mg PO DAILY 03/27/24 03/30/24 History iron) tablet (FeroSul) folic acid 0.8 mg capsule 800 mcg PO DAILY 03/27/24 Unknown History furosemide 40 mg tablet (Lasix) 40 mg PO BID 03/27/24 03/30/24 History magnesium 200 mg tablet 400 mg PO DAILY 03/27/24 03/30/24 History metoprolol succinate 25 mg 12.5 mg PO TID 03/27/24 03/30/24 History tablet,extended release 24 hr potassium chloride 20 mEq oral 20 meq PO DAILY 03/27/24 03/30/24 History packet (Klor-Con) sennosides 8.6 mg-docusate sodium 1 tab-cap PO QHS 03/27/24 03/30/24 History 50 mg tablet (Senna Plus) tamsulosin 0.4 mg capsule 0.4 mg PO BID 03/27/24 03/30/24 History vitamins A,C,J-swkc-wxamev 2,148 2 tab PO DAILY 03/27/24 03/30/24 History mcg-113 mg-45 mg-17.4 mg tablet (Eye Multivitamin) Allergy/AdvReac Type Severity Reaction Status Date / Time No Known Allergies Allergy Verified 03/31/24 05:56 Family History Other CVA (cerebral vascular accident) Surgical History History of heart surgery History of lumbar spinal fusion Hx of inguinal hernia repair Hx of sinus surgery Hx of esophagogastroduodenoscopy Social History Smoking Status: Never smoker ROS Constitutional Constitutional: Denies fatigue, fever(s), poor appetite, weight gain or weight loss Gastrointestinal Gastrointestinal: Denies belching, bloating, change in bowel habits, change in stool character, chewing difficulty, coffee ground emesis, constipation, cramping, diarrhea, dyspepsia, dysphagia, early satiety, excessive flatus, fecal incontinence, heartburn, hematemesis, hematochezia, hemorrhoids, loose stools, melena, nausea, odynophagia, rectal bleeding, tenesmus, vomiting or weight changes Vital Signs Vital Signs Vital Signs: 03/31/24 06:00 03/31/24 06:00 03/31/24 06:46 Temperature 98.5 F 98.5 F Temperature Source Temporal Pulse Rate 84 84 Respiratory Rate 16 16 Respiratory Pattern Normal Blood Pressure 133/92 H 133/92 H Blood Pressure Mean 105 Blood Pressure Source Monitor Blood Pressure Position Semi-Fowlers Blood Pressure Location Left Arm Pulse Ox 97 97 Oxygen Delivery Method Room Air Weight Weight: 216 lb 0.848 oz Body Mass Index (BMI) 30.1 Physical Exam Const alert, oriented x3, no apparent distress and healthy appearing General Appearance: cooperative GI normal to inspection, nondistended, normoactive bowel sounds, soft to palpation, non-tender and non-distended Percussion: normal to percussion Rectal Exam: deferred Assessment & Plan Assessment/Plan (1) GI bleed: (2) Anemia: PLAN: Plan Assessment and Plan Assessment and Plan (1) Anemia: Status: Acute (2) GI bleed: Status: Acute Plan: Acute blood loss anemia secondary to upper GI bleed/SERAFIN. His hemoglobin seems to be stable at this time. He is coming in for follow-up visit with his son. He has not had any signs or symptoms of GI bleeding. ? Findings: The examined esophagus was normal. One oozing cratered gastric ulcer with a visible vessel was found in the gastric body. The lesion was 6 mm in largest dimension. Area was successfully injected with 5 mL of a 0.1 mg/mL solution of epinephrine for drug delivery. Coagulation for hemostasis using heater probe was successful. One non-bleeding cratered gastric ulcer with no stigmata of bleeding was found in the cardia. The lesion was 4 mm in largest dimension. Biopsies were taken with a cold forceps for histology. Verification of patient identification for the specimen was done. Estimated blood loss was minimal. Biopsies were taken with a cold forceps for Helicobacter pylori testing. Verification of patient identification for the specimen was done. Estimated blood loss was minimal. No gross lesions were noted in the duodenal bulb. Impression: - Normal esophagus. - Oozing gastric ulcer with a visible vessel. Injected. Treated with a heater probe. - Non-bleeding gastric ulcer with no stigmata of bleeding. Biopsied. - No gross lesions in the duodenal bulb. Recommendation: - [facility]. - Full liquid diet today. Advance diet as tolerated - Use Prilosec (omeprazole) 40 mg PO BID for 3 months. - Repeat upper endoscopy in 3 months for surveillance. He will undergo repeat endoscopy to evaluate his gastric ulcer and we will repeat his iron studies and CBC.
--- NOTE | 2024-03-31 07:09 | OP.CCLET_ITS ---
03/31/2024 Moiz Tobias Re : Upper GI endoscopy procedure for Homero Maria Dear Jatinder This procedure was performed on Sunday, March 31, 2024. My impressions and recommendations are as follows: Impressions : - Normal esophagus. - Non-bleeding gastric ulcer with no stigmata of bleeding. Biopsied. - Normal first portion of the duodenum. Recommendations : - Discharge patient to home. - Resume previous diet. - Continue present medications. - Await pathology results. My findings are described in the full procedure note, which is enclosed. If I can be of further assistance, please feel free to contact me at . Sincerely, Sarkis Lopes, 03/31/2024 7:07:55 AM This report has been signed electronically.
--- NOTE | 2024-03-31 07:09 | OP.EGD_ITS ---
Patient Name: Homero Maria Procedure Date: 03/31/2024 6:28 AM Date of : 1945 Age: 78 Procedure: Upper GI endoscopy Indications: Iron deficiency anemia, Follow-up of peptic ulcer Providers: Sarkis Lopes DO Referring MD: Moiz Tobias Medicines: Monitored Anesthesia Care Patient Profile: This is a 78 year old male. Refer to note in patient chart for documentation of history and physical. Patient has symptoms. His most recent EGD for treatment of bleeding and EGD for ulcer treatment. Complications: No immediate complications. Procedure: Pre-Anesthesia Assessment: - Prior to the procedure, a History and Physical was performed, and patient medications and allergies were reviewed. The patient is competent. The risks and benefits of the procedure and the sedation options and risks were discussed with the patient. All questions were answered and informed consent was obtained. Patient identification and proposed procedure were verified by the physician in the pre-procedure area. Mental Status Examination: alert and oriented. Airway Examination: normal oropharyngeal airway and neck mobility. Respiratory Examination: clear to auscultation. CV Examination: normal. Prophylactic Antibiotics: The patient does not require prophylactic antibiotics. Prior Anticoagulants: The patient has taken no anticoagulant or antiplatelet agents except for NSAID medication. ASA Grade Assessment: III - A patient with severe systemic disease. After reviewing the risks and benefits, the patient was deemed in satisfactory condition to undergo the procedure. The anesthesia plan was to use monitored anesthesia care (MAC). Immediately prior to administration of medications, the patient was re-assessed for adequacy to receive sedatives. The heart rate, respiratory rate, oxygen saturations, blood pressure, adequacy of pulmonary ventilation, and response to care were monitored throughout the procedure. The physical status of the patient was re-assessed after the procedure. After obtaining informed consent, the endoscope was passed under direct vision. Throughout the procedure, the patient's blood pressure, pulse, and oxygen saturations were monitored continuously. The Endoscope was introduced through the mouth, and advanced to the second part of duodenum. The upper GI endoscopy was accomplished without difficulty. The patient tolerated the procedure well. Scope In: 6:59:31 AM Scope Out: 7:01:48 AM Total Procedure Duration Time 0 hours 2 minutes 17 seconds Findings: The examined esophagus was normal. One non-bleeding superficial gastric ulcer with no stigmata of bleeding was found in the stomach. The lesion was 3 mm in largest dimension. Biopsies were taken with a cold forceps for histology. Verification of patient identification for the specimen was done. Biopsies were taken with a cold forceps for Helicobacter pylori testing. Verification of patient identification for the specimen was done. Estimated blood loss was minimal. The first portion of the duodenum was normal. Impression: - Normal esophagus. - Non-bleeding gastric ulcer with no stigmata of bleeding. Biopsied. - Normal first portion of the duodenum. Recommendation: - Discharge patient to home. - Resume previous diet. - Continue present medications. - Await pathology results. Procedure Code(s): --- Professional --- 07885, Esophagogastroduodenoscopy, flexible, transoral; with biopsy, single or multiple CPT copyright 2021 [employer]. All rights reserved. The codes documented in this report are preliminary and upon letter of credit clerk review may be revised to meet current compliance requirements. Sarkis Lopes DO 03/31/2024 7:07:55 AM This report has been signed electronically. Number of Addenda: 0 Note Initiated On: 03/31/2024 6:28 AM
--- NOTE | 2024-03-31 07:10 | PCM.POST.ANE ---
Anesthesia: Postop Eval I Current Vital Signs Temperature: 98.4 F Pulse Rate: 74 Blood Pressure: 94/61 Respiratory Rate: 14 Pulse Ox: 96 Oxygen Delivery Method: Room Air Assessment Airway patent: Yes Spontaneous unlabored respirations: Yes Mental status: Awake and Calm nausea: No Vomiting: No Anesthesia Complication: No Fluid Hydration Crystalloid volume administer (ml): 30 Total IV fluid infused: 30 Progress Note Anesthesia document: Postop Eval 1 completed: Yes
--- NOTE | 2024-03-31 07:30 | EKG12_ITS ---
Test Reason : POST OP Blood Pressure : */* mmHG Vent. Rate : 71 BPM Atrial Rate : 74 BPM P-R Int : 182 ms QRS Dur : 94 ms QT Int : 422 ms P-R-T Axes : 43 -47 74 degrees QTcB Int : 458 ms Sinus rhythm with frequent Premature ventricular complexes Left axis deviation Low voltage QRS Cannot rule out Anterior infarct (cited on or before 04-Jun-2023) Abnormal ECG Confirmed by Irineo Reynoso ([id number]), newspaper editor ANGI RIDER ([id number]) on 04/02/2024 7:02:35 AM Referred By: Moiz Tobias Confirmed By: Irineo Reynoso
[2024-03-31 07:56] LABS: Anion Gap 7 (5-15); BUN 18 mg/dL (7-18); BUN/Creat Ratio 19.6 RATIO (10-20); Calcium,Total 8.7 mg/dL (8.5-10.1); Chloride 111 mmol/L (98-107); Creatinine, Serum 0.92 mg/dL (0.70-1.30); EST Glomerular Filtration Rate 85 mL/min (>60); Est Glom Filt Rate - Afr Amer 103 mL/min (>60); Estimated Creatinine Clearance 81.53 ml/min; Glucose 107 mg/dL (74-106); Magnesium 2.4 mg/dL (1.6-2.6); Sodium Level 145 mmol/L (136-145)
--- NOTE | 2024-03-31 09:09 | PCM.POSTANE2 ---
Anesthesia Postop Eval I Sum Postop Eval Completion status Anesthesia document: Postop Eval 1 completed: Yes Anesthesia Postop Eval I Summary Anesthesia Postop Eval I Summary: Anesthesia Postop Eval I: Assessment Summary Airway patent Yes 03/31/24 07:11 [email or web address] Spontaneous unlabored Yes 03/31/24 07:11 [email or web address] respirations Mental status Awake,Calm 03/31/24 07:11 [email or web address] nausea No 03/31/24 07:11 [email or web address] Vomiting No 03/31/24 07:11 [email or web address] Anesthesia Postop Eval I: Fluid Summary Crystalloid volume administer 30 03/31/24 07:11 [email or web address] (ml) Colloids volume administered ( ml) Blood Product volume administered (ml) Total IV fluid infused 30 03/31/24 07:11 [email or web address] Anesthesia Postop Eval I: Summary Notes Anesthesia Complication No 03/31/24 07:11 [email or web address] Anesthesia Complication Comment: Post-operative progress note Anesthesia: Postop Eval II Evaluation Mental status: Awake Pain Level: 0 nausea: No Vomiting: No Progress Note Post-operative progress note: patient with Freq pvc's. obtained ekg nl except pvcs. electrolytes within nl limits. 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
== END 2024-03-31 08:28 | disposition home or self-care (01) ==
LOC: EN 05:36 → AC 05:37
PROVIDERS: Anesthesiology; PCP Family Medicine; Referring Provider Family Medicine; Visit Provider Internal Medicine Gastroenterology
PROC: 0DJ08ZZ Inspection of Upper Intestinal Tract, Via Natural or Artificial Opening Endoscopic (ICD-10-PCS; CPT 43235; principal; 2024-03-31 06:25)
DX: K31.A19 Gastric intestinal metaplasia without dysplasia, unspecified site (principal); K92.2 Gastrointestinal hemorrhage, unspecified; I10 Essential (primary) hypertension; K25.9 Gastric ulcer, unspecified as acute or chronic, without hemorrhage or perforation; E78.5 Hyperlipidemia, unspecified; Z79.01 Long term (current) use of anticoagulants; Z79.82 Long term (current) use of aspirin; Z79.899 Other long term (current) drug therapy; D50.9 Iron deficiency anemia, unspecified; K29.50 Unspecified chronic gastritis without bleeding
CPT/HCPCS: 43239; 80048; 83735; 88305; 88312; 88342; 93005; A4216; J2405

== ENCOUNTER → 2024-04-30 | Outpatient (CLI) | payer MEDICARE, SELFPAY ==
--- NOTE | 2024-04-30 14:04 | PCM.CR.HP2 ---
CR - History & Physical General Arrival date:: 04/30/24 Arrival time:: 14:05 Date of Referral:: 03/25/24 Date of CR Evaluation:: 04/30/24 Referring Physician: Dr. Iqbal Primary Diagnosis: CABG History of Present Cardiac Event Onset Date Coronary Artery Bypass Graft:: Yes (onset 02/28/2024) Medications Ambulatory Orders ?Medication ?Instructions ?Recorded donepezil 5 mg tablet 10 mg PO DAILY 06/04/23 pantoprazole 40 mg tablet,delayed 40 mg PO DAILY #30 tabs 09/11/23 release (Protonix) fluticasone propionate 50 2 spray intranasal DAILY PRN PRN 09/28/23 mcg/actuation nasal nasal congestion spray,suspension acetaminophen 500 mg capsule 1,000 mg PO Q6H PRN pain 03/27/24 apixaban 5 mg tablet (Eliquis) 5 mg PO BID 03/27/24 ascorbic acid (vitamin C) 500 mg 500 mg PO DAILY 03/27/24 tablet (Vitamin C) aspirin 81 mg capsule 162 mg PO DAILY 03/27/24 atorvastatin 40 mg tablet 40 mg PO DAILY 03/27/24 cholecalciferol (vitamin D3) 25 25 mcg PO DAILY 03/27/24 mcg (1,000 unit) capsule (Vitamin D3) cyanocobalamin (vitamin B-12) 1,000 mcg PO DAILY 03/27/24 1,000 mcg tablet folic acid 0.8 mg capsule 800 mcg PO DAILY 03/27/24 furosemide 40 mg tablet (Lasix) 40 mg PO BID 03/27/24 magnesium 200 mg tablet 400 mg PO DAILY 03/27/24 metoprolol succinate 25 mg 12.5 mg PO TID 03/27/24 tablet,extended release 24 hr potassium chloride 20 mEq oral 20 meq PO DAILY 03/27/24 packet (Klor-Con) sennosides 8.6 mg-docusate sodium 1 tab-cap PO QHS 03/27/24 50 mg tablet (Senna Plus) tamsulosin 0.4 mg capsule 0.4 mg PO BID 03/27/24 vitamins A,C,Y-fiop-xmuxpo 2,148 2 tab PO DAILY 03/27/24 mcg-113 mg-45 mg-17.4 mg tablet (Eye Multivitamin) ferrous sulfate 325 mg (65 mg 325 mg PO TID #180 tabs 04/07/24 iron) tablet (FeroSul) Allergies Allergies No Known Allergies Allergy (Verified 03/31/24 05:56) Sleep Disorder Evaluation Hx of Sleep Apnea: Yes Do you snore loudly (louder than talking or can be heard through closed doors)?: No Do you often feel tired/ fatigued/ sleepy during daytime?: No Has anyone observed you stop breathing during sleep?: No History of Hypertension (for STOP score): Yes STOP Results: Negative Advanced Directives Advanced Directives Power of Physically Impaired Teacher: Yes Living Will: Yes Advance Directives Information Provided: Yes Advance Directives on File: No DNR Order?:: No Past Medical History Covid-19 Screening Physicial Symptoms Other Clinical Concerns Exposure Risk Pertinent Comorbidities Has a serious heart condition:: Yes Past Medical Illness Medical History History of echocardiogram History of stress test Cardiology follow-up encounter Open wound Lives in assisted living facility Wears glasses Anxiety Alcohol use History of renal disease Arthritis Anemia Syncope History of ulceration Non-smoker History of pain when walking Dementia Colon polyps Macular degeneration Hypertension Hyperlipidemia BPH (benign prostatic hyperplasia) Elevated BP without diagnosis of hypertension Hypoxia Severe sepsis Pneumonia due to COVID-19 virus Past Surgical History Surgical History History of heart surgery History of lumbar spinal fusion Hx of inguinal hernia repair Hx of sinus surgery Hx of esophagogastroduodenoscopy Surgical History: - (Lumbar back surgery, left knee arthroscopic surgery, bilateral inguinal hernia repairs.) Family History Summary Family History Other CVA (cerebral vascular accident) Social History Smoking History Smoking Status: Never smoker Substance Abuse Hx Substance Use: No Occupation Occupation (List type of work in comments):: Retired Social Environment Status Marital Status: Current Living Arrangements Living Environment:: Alone Children How many children do you have?: 4 Do any of your children live nearby?: Yes Safety Do you feel safe in your surroundings?: Yes Assistance Do you need any assistance at home?: no Review of Systems Review of Systems Hints Review of Present Symptoms: Reports Angina, Dizziness/Lightheadedness, Fatigue, Appetite - Normal, Appetite - Special Diet and Sleep - Normal; Denies Shortness of Breath at Rest, Shortness of Breath with Exertion, PVD, Operative Discomfort, Wound Healing, Heart Arrhythmia/Irregularities or Sexual Changes Pain Is Patient Pain Free?: No Pain Location: lower extremity Pain Level: 10 Risk Factor Assessment Chief Complaint Chief Complaint: CABG Vital Signs Pulse Ox: 96 Blood Pressure: 100/50 Pulse Pulse Rate: 69 Pulse Rhythm: Regular Hypertension Blood Pressure Sitting - Right Arm: 100/50 Stress Stress: Home/Family Obesity Height: 5 ft 11 in Weight:: 207 lb Weight in Pounds: 207.0 lbs Body Mass Index (BMI): 28.8 Nutritional Referral for Obesity: No Physical Inactivity Physical Inactivity: Recreational activity Risk Stratification Risk Guidelines: Lowest Risk: Risk Factor for Smoking, Moderate Risk: Risk Factor for Diabetes, Risk Factor for Obesity and Risk Factor for Sedentary Lifestyle and Highest Risk: Risk Factor for Dyslipidemia, Risk Factor for Hypertension and Risk Factor for Depression For Smoking Smoking Risk Guidelines For Dyslipidemia Dyslipidemia Risk Guidelines For Diabetes Mellitus Diabetes Risk Guidelines For Obesity/Overweight Obesity/Overweight Risk Guidelines For Hypertension Hypertension Risk Guidelines For Sedentary Lifestyle Sedentary Lifestyle Risk Guidelines For Depression Depression Risk Guidelines Family History Family History Other CVA (cerebral vascular accident) Motivation Motivation to Participate On a scale of 1 to 10, how prepared are you to commit to attending program?: 7 What do you see as barriers to successfully being able to complete the program?: nothing What do you see as the benefits of succesfully completing the program? In other words, what do you hope to get out of participating in the program?: exercise program, wants to start biking again Are there issues you are dealing with that will interfere with completing the program?: no Do you have a spouse or signficant other, family or friends who will help support you to complete the program?: yes
--- NOTE | 2024-04-30 14:15 | PCM.CR.ITP ---
Diagnosis General Information Admitting Diagnosis: CABG Personal Learning Style:: Audio/Visual Stage of change r/t lifestyle modifications:: Contemplation Gave educational material for:: Treating Heart Disease, How The Heart Works, What it means to have Heart Disease, How Coronary Artery Disease is Diagnosed, Heart Procedures, What Heart Medications Do, Risk Factors & Modifications, Living an Active Life, Nutrition, Emotions & Heart Disease, Stress Management & Relaxation and Sleep Disorders & Heart Disease Education/Goals Cardiac Rehabilitation Goals Personal Goals: Initial Assessment: Improve management of stress and emotions, Improve energy level, Get back to work, or to resume activities faster, Improve knowledge of cardiac disease, Improve muscle strength and endurance, Improve diet and eating habits (eat healthier) and Control risk factors (learn risk factor modification) Scale for measuring improvement of personal goals Diagnosis & Disease Process Outcomes/Goals: Pt IDs own risk factors & lifestyle modifications by Session 10, Verbalizes symptoms of angina & response by session 3., Pt independently manages and Other Additional Outcomes/Goals: Plan/Interventions: Assist Pt to ID & engage in lifestyle modification to reduce CVD risk, Instruct on individual risk factors, Review symptoms of angina & emergency actions, Review secondary diagnosis & identify educational needs. and Other see comment 30 day Reassessments:: Not Met 30 day Reassessments:: Not Met 30 day Reassessments:: Not Met 30 day Reassessments:: Not Met Final Reassessments:: Not Met Safety Referral to Physical Therapy: No Referral to [facility] Case Management: No Fall Risk Assessed:: Yes Assistive Devices:: None Exercise - Initial Assessment Visit Date of Eval: 04/30/24 (initial eval ) Mets: Pre-: >5 METS for 30 minutes by discharge Physician Prescribed Exercise Modalities: Treadmill, Schwinn Airdyne AD-7, SciFit Stepper, [employer] Pro-II Ergometer and [employer] Lateral [employer] Driver Frequency: 3x/week for 12 weeks [36 sessions] Intensity: 60-80% of age predicted maximum heart rate reserve Duration: 30 - 45 minutes Current METSs:: 3 Target Heart Rate:: 86-106 Resting Blood Pressure: 142/90 EKG Type: NSR/Afib in hospital Outcomes & Goals Goals:: Verbalizes understanding of THR, RPE & goal METS by session 6, Documents in home exercise log/reports 30 min aerobic 5 day/wk by DC, Demonstrates accurate pulse taking by DC and Other additional outcome/goals: see below Intervention & Plan Exercise Program Goals: Instruct on personal THR & RPE, Instruct on MET level & personal MET goal, Show patient to take own pulse /validate performance until accurate, Instruct on home exercise and Other additional plan/int Physical Activity Home Exercise Physical Activity - Home Exercise: Safe Exercise, Warm-up, Self-monitoring, Cool-Down, Home Exercise > 30 min Daily and Sitting Time <3 hours/daily Outcomes & Goals Outcomes/Goals: Demonstrates correct Warm-up/exercise Cool-Down (S3) if = 2.5 METs, Verbalizes symptoms of exercise intolerance by Session 3 (S3), Demonstrate safe equipment use (S3) & follows exercise prescrition (6) and Other: See below Intervention & Plan Plan/Intervention: Instruct warm-up & cool-down if exercising at > 2 METs, Instruct on symptoms of exercise intolerance & actions to take, Instruct & monitor on saf, Assess intial functional capacity & safety risk and Other See below Nutrition - Initial Assessment Program Goals Nutrition Program Goals Patient has diagnosis of Hyperlipidemia (ICD E78)?: Yes Visit Date of Eval: 04/30/24 (initial eval ) Cholesterol/Lipids (Other Core Measures) Determine presence & major risk factors that modify LDL goal: Hypertension or hypertensive medication, Low HDL cholesterol <40 mg/dL*, Family history of premature CHD in Male < 55 years: female <65 yearsFa and Age men > 45 years; women >/= 55 years Outcomes/Goals: Pt IDs own risk factors & lifestyle modifications by Session 10, Verbalizes symptoms of angina & response by session 3., Pt independently manages and Other Additional Outcomes/Goals: Intervention/Plan: Advocate for lipid panel cholesterol medication if applicable, Instruct on personal lipid levels & lipid goals/NCEP guidelines, Instruct on cholesterol and Other additional plan/int Referral to dietitian:: No Diabetes (Other Core Measures) Diabetes Type: Not Applicable Weight Mgt (Other Care) Height: 5 ft 11 in Weight:: 207 lb BMI: 28.8 Diagnosis Overweight/Obesity BMI> 30% ICD-10 E66: No Diagnosis High BMI/Morbid Obesity BMI> 35% ICD-10 Z68: No Outcomes/Goals: Pt sets, maintains & shows weight loss goal & trend during rehab and Other additional outcomes/goals Intervention/Plan: Instruct on ideal BMI & set weight loss goal w/patient, Assist pt to ID & incorporate diet changes for weight loss by S9, Refer to Structured Weight Loss program as appropriate, Encourage goal of using 250-300dcal per session for weight loss and Other additional plan/interventions Healthy Eating Habits Will attend diet classes:: Yes Outcomes/Goals:: Consume diet rich in vegs,fruits,whole grain/high fiber,fish,lean meat, Limit sat/trans fats,cholesterol & added salts & sugars and Other additional outcome/goals: Intervention/Plan:: Assess current eating habits and Other Additional plan/interventions Education Gave educational materials for:: Signs & symptoms of hypoglycemia, Signs & symptoms of hyperglycemia, Relate diabetes to coronary artery disease and Healthy eating Core - Initial Assessment Visit Date of Eval: 04/30/24 (initial eval ) Medication Compliance Preventative Medication(s):: Aspirin, Statin/lipid, Beta darcy and Eliquis H/O mental health issues: depression, anxiety, or addiction?: Yes Doesn?t believe in the benefits of treatment?: No Believes medications are unnecessary or harmful?: No Has a concern about medication side effects?: No Expresses concern over the cost of medications?: No Outcomes/Goals: Verbalizes medications,desired effect & common side effects @ DC, Pt self-reports following medication regimen, Keeps card in wallet w/medications listed by DC and Other additional outcome/goals: Interventions/plans: Instruct on medication effects & side effects, Review medication list w/patient every two weeks, Instruct importance of taking meds as ordered & assist problem solving and Other additional Tobacco Use Tobacco Use: Non-smoker Do you use smokeless tobacco?: No Outcomes/Goals: Smoking cessation achieved or maintained by discharge, Identify aids/strategies for achieving smoking cessation by session 6 and Other additional outcome/goals Interventions/plan: Instruct on effects of smoking & provide smoking cessation resource, Assist pt to set quit date & provide encouragement, Assist pt to develop strategies to achieve/maintain quit date, Assist pt w/nicotine replacement & medication for cessation success and Other additional plan/interventions Hypertension Hypertension Diagnosis:: Hypertension ICD-10 I10 Resting Blood Pressure:: 142/90 [place] [employer] Hypertension Guidelines Outcomes/Goals: Able to verbalize/achieve optimal blood pressure <130/80, Incorporates diet changes & exercise for blood pressure control by DC and Other additional outcomes/goals Interventions/plan: Instruct on optimal blood pressure, hypertension & medications, Instruct on effects of sodium, alcohol, stress, exercise &hypertension and Other additional plan/interventions Tobacco Cessation Referral Smoking Cessation Referral:: No Individual Education/Counseling:: No Education Schedule Given:: Yes Psychosocial - Initial Assess VIsit Date of Eval: 04/30/24 (initial eval ) History of previous Mental disease:: Yes History of Emotional Disorders: Anxious and Depression Target Goals Target Goals Psychosocial Test Tool Used:: [employer] QOL Cardiac and PHQ-9 Questionnaire phq-9 Severity Referral to Behavioral Health PS - Interventions: Yes: Attend Stress Management Classes Outcomes/Goals: See list Psychosocial Outcomes/Goals:: ID's personal stressors & 2 strategies to manage stress by discharge Intervention/Plan: See List Interventions/Plan:: Assess stressors,coping strategies & signs of derpression on admission, Instruct/assist pt to develop coping & personal stress Mgt strategies, Refer to Behavioral Health if appropriate, Refer to Physician if appropriate, Instruct patient to recognize signs & symptoms of depression and Instruct patient to recog Patient Health Questionnaire PHQ-9 Screening Initial Assessment: 1. Little interest or pleasure in doing things: Several days 2. Feeling down, depressed, or hopeless: Several days 3. Trouble falling or staying asleep, or sleeping too much: Not at all 4. Feeling tired or having little energy: Several days 5. Poor appetite or overeating: Not at all 6. Feeling bad about yourself -- or that you are a failure or have let yourself or your family down: Not at all 7. Trouble concentrating on things, such as reading the newspaper or watching television: Several days 8. Moving or speaking so slowly that other people could have noticed. Or the opposite - being so fidgety or restless that you have been moving around a lot more than usual: Not at all 9. Thoughts that you would be better off , or of hurting yourself in some way: Not at all How difficult have these problems made it for you to do your work, take care of things at home, or get along with other people?: Not difficult at all Total Score: 4 DARLING-Q SV Test Statements CAD is a disease of the arteries in the heart: False Examples of risk factors for heart disease: True Angina is chest pain or discomfort: True The benefits of resistance training include: True Eating more meat and dairy products: False Anti-platelet medications such as aspirin are important: I Don't Know The only effective way to manage stress: I Don't Know An exercise warm-up slowly increases heart rate: I Don't Know Prepared, processed foods usually have high sodium: True Depression is common after a heart attack: True The statin medications lower cholesterol: True To control blood pressure, lower the amount of sodium: True If someone gets chest discomfort during walking: False Transfats are partially hydrogenated vegetable oils: True Sleep apnea that is not treated increases the risk: False To control cholesterol, one should become a vegetarian: False Someone knows if he/she is exercising at the right level: I Don't Know Diabetes cannot be prevented with exercise & health eating: I Don't Know Stress is a large risk for heart attack: I Don't Know A diet that can help lower blood pressure is rich in: True Total Score Total Correct Responses: 14 Self-Efficacy 6-Item Scale Initial Assessment: We would like to know how confident you are in doing certain activities. Please select your confidence level for: Fatigue Select Number: 9 Physical Discomfort or Pain Select Number: 8 Emotional Distress Select Number: 7 Other Symptoms or Health Problems Select Number: 8 Different Tasks and Activities Select Number: 8 Medication Select Number: 6 Total Score:: 7 Nutrition Survey Nutrition Survey Instructions Scoring Instructions Nutrition Survey Initial: Have you lost >10 lbs over the past 2 months without trying?: No Are you following a special diet at home for diabetes, low fat, or low salt?: No Are you interested in meeting with a dietitian for help understanding your diet?: No Do you eat less than 3 meals a day?: No Do you eat fatty meats (webster, sausage, ribs, etc), fried foods, desserts, large amounts of salad dressings, margarine, butter, or cheese most days?: No Do you have food allergies? [Enter types in comment field]: No Do you eat in restaurants more than 3 times a week?: No Do you season food with salt, seasoning salt, or garlic salt?: No Do you used canned, boxed, frozen meals, or soups, seasoning packets?: No Total Score:: 0 Exercise - 30-day Assessment Physician Prescribed Exercise Modalities: Treadmill, Jason Oglesby AD-7, SciFit Stepper, SciFit Pro-II Ergometer and SciFit Lateral [employer] Driver Exercise - 60-day Assessment Physician Prescribed Exercise Modalities: Treadmill, [employer] Airdyne AD-7, SciFit Stepper, SciFit Pro-II Ergometer and SciFit Lateral [place] Exercise - 90-day Assessment Physician Prescribed Exercise Modalities: Treadmill, [employer] Airdyne AD-7, SciFit Stepper, SciFit Pro-II Ergometer and SciFit Lateral [employer] Driver Exercise - Final/Discharge Physician Prescribed Exercise Modalities: Treadmill, [employer] Airdyne AD-7, SciFit Stepper, SciFit Pro-II Ergometer and SciFit Lateral [place] Frequency: 3x/week for 12 weeks [36 sessions] Intensity: 60-80% of age predicted maximum heart rate reserve Current METSs:: 3 Target Heart Rate:: 86-106 Nutrition - 30-Day Assessment Weight Mgt (Other Care) Height: 5 ft 11 in Weight:: 207 lb BMI: 28.8 Nutrition - 60-Day Assessment Weight Mgt (Other Care) Height: 5 ft 11 in Weight:: 207 lb BMI: 28.8 Core - Final Assessment Hypertension Resting Blood Pressure:: 142/90 [place] [employer] Hypertension Guidelines Core - 60-Day Assessment Hypertension Resting Blood Pressure:: 142/90 [place] [employer] Hypertension Guidelines Psychosocial - 30-Day Assess Target Goals Target Goals Referral to Behavioral Health PS - Interventions: Yes: Attend Stress Management Classes Psychosocial - 60-Day Assess Target Goals Target Goals Referral to Behavioral Health PS - Interventions: Yes: Attend Stress Management Classes Psychosocial - 90-Day Assess Target Goals Target Goals Referral to Behavioral Health PS - Interventions: Yes: Attend Stress Management Classes Psychosocial - Final Assessmen Target Goals Target Goals Referral to Behavioral Health PS - Interventions: Yes: Attend Stress Management Classes Nutrition - 90-Day Assessment Weight Mgt (Other Care) Height: 5 ft 11 in Weight:: 207 lb BMI: 28.8 Nutrition - Final Assessment Program Goals Patient has diagnosis of Hyperlipidemia (ICD E78)?: Yes Weight Mgt (Other Care) Height: 5 ft 11 in Weight:: 207 lb BMI: 28.8
[2024-04-30 14:21] VITALS: BP 142/90
[2024-04-30 14:50] VITALS: BP 100/50; PULSE 69; O2SAT 96
[2024-04-30 15:22] VITALS: BMI 28.8
== END | disposition home or self-care (01) ==
LOC: CR 14:00
PROVIDERS: PCP Family Medicine; Referring Provider Thoracic Surgery (Cardiothoracic Vascular Surgery); Visit Provider Thoracic Surgery (Cardiothoracic Vascular Surgery)
DX: Z95.1 Presence of aortocoronary bypass graft (principal); F03.94 Unspecified dementia, unspecified severity, with anxiety; I10 Essential (primary) hypertension; E78.5 Hyperlipidemia, unspecified; N40.0 Benign prostatic hyperplasia without lower urinary tract symptoms; Z79.01 Long term (current) use of anticoagulants; Z79.82 Long term (current) use of aspirin; Z79.899 Other long term (current) drug therapy

== ENCOUNTER 2024-05-19 10:15 | Outpatient (RCR) | payer MEDICARE, SELFPAY ==
[2024-04-30 15:22] VITALS: BMI 28.8
== END 2024-05-19 23:59 ==
LOC: CR 10:15
PROVIDERS: PCP Family Medicine; Referring Provider Thoracic Surgery (Cardiothoracic Vascular Surgery); Visit Provider Thoracic Surgery (Cardiothoracic Vascular Surgery)
DX: Z95.1 Presence of aortocoronary bypass graft
CPT/HCPCS: 93798

== ENCOUNTER 2024-06-18 10:15 | Outpatient (RCR) | payer MEDICARE, SELFPAY ==
[2024-04-30 15:22] VITALS: BMI 28.8
--- NOTE | 2024-05-29 07:26 | PCM.CR.ITP ---
Exercise - Initial Assessment Physician Prescribed Exercise Modalities: Treadmill, Schwinn Airdyne AD-7 and SciFit Stepper Nutrition - Initial Assessment Weight Mgt (Other Care) Height: 5 ft 11 in Weight:: 190 lb BMI: 26.4 Psychosocial - Initial Assess Target Goals Target Goals Referral to Behavioral Health PS - Interventions: Yes: Attend Stress Management Classes Patient Health Questionnaire PHQ-9 Screening 30-Day Re-eval Assessment: 1. Little interest or pleasure in doing things: Several days 2. Feeling down, depressed, or hopeless: Several days 3. Trouble falling or staying asleep, or sleeping too much: Not at all 4. Feeling tired or having little energy: Several days 5. Poor appetite or overeating: Not at all 6. Feeling bad about yourself -- or that you are a failure or have let yourself or your family down: Not at all 7. Trouble concentrating on things, such as reading the newspaper or watching television: Several days 8. Moving or speaking so slowly that other people could have noticed. Or the opposite - being so fidgety or restless that you have been moving around a lot more than usual: Not at all 9. Thoughts that you would be better off , or of hurting yourself in some way: Not at all How difficult have these problems made it for you to do your work, take care of things at home, or get along with other people?: Not difficult at all Total Score: 4 Self-Efficacy 6-Item Scale 30-Day Re-eval Assessment: We would like to know how confident you are in doing certain activities. Please select your confidence level for: Fatigue Select Number: 9 Physical Discomfort or Pain Select Number: 8 Emotional Distress Select Number: 7 Other Symptoms or Health Problems Select Number: 8 Different Tasks and Activities Select Number: 8 Medication Select Number: 6 Total Score:: 7 Nutrition Survey Nutrition Survey Instructions Scoring Instructions Exercise - 30-day Assessment Visit Date of Eval: 05/29/24 Session #:: 7 Physician Prescribed Exercise Modalities: Treadmill, Schwinn Airdyne AD-7 and SciFit Stepper Frequency: 3x/week for 12 weeks [36 sessions] Intensity: 60-80% of age predicted maximum heart rate reserve Duration: 30 - 45 minutes Current METSs:: 3.7 Target Heart Rate:: 86-108 Current RPE:: 11-12 Maximum Excercise HR:: 78 Resting Blood Pressure: 140/80 Maximum Exercise Blood Pressure: 120/82 EKG Type: NSR with rare PAC/PVC Outcomes & Goals Goals:: Verbalizes understanding of THR, RPE & goal METS by session 6, Documents in home exercise log/reports 30 min aerobic 5 day/wk by DC, Demonstrates accurate pulse taking by DC and Other additional outcome/goals: see below Intervention & Plan Exercise Program Goals: Instruct on personal THR & RPE, Instruct on MET level & personal MET goal, Show patient to take own pulse /validate performance until accurate, Instruct on home exercise and Other additional plan/int Physical Activity Home Exercise Physical Activity - Home Exercise: Safe Exercise, Warm-up, Self-monitoring, Cool-Down, Home Exercise > 30 min Daily and Sitting Time <3 hours/daily Outcomes & Goals Outcomes/Goals: Demonstrates correct Warm-up/exercise Cool-Down (S3) if = 2.5 METs, Verbalizes symptoms of exercise intolerance by Session 3 (S3), Demonstrate safe equipment use (S3) & follows exercise prescrition (6) and Other: See below Intervention & Plan Plan/Intervention: Instruct warm-up & cool-down if exercising at > 2 METs, Instruct on symptoms of exercise intolerance & actions to take, Instruct & monitor on saf, Assess intial functional capacity & safety risk and Other See below 30-day Reassessments 30 day Reassessments:: Progressing Reassessment Notes & Comments:: RPE explained to pt. Pt is able to return demonstration in his daily sessions. Exercise - 60-day Assessment Physician Prescribed Exercise Modalities: Treadmill, Schwinn Airdyne AD-7 and SciFit Stepper Exercise - 90-day Assessment Physician Prescribed Exercise Modalities: Treadmill, Schwinn Airdyne AD-7 and SciFit Stepper Exercise - Final/Discharge Physician Prescribed Exercise Modalities: Treadmill, Schwinn Airdyne AD-7 and SciFit Stepper Nutrition - 30-Day Assessment Program Goals Nutrition Program Goals Patient has diagnosis of Hyperlipidemia (ICD E78)?: Yes Visit Date of Eval: 05/29/24 Session #:: 7 Cholesterol/Lipids (Other Core Measures) Determine presence & major risk factors that modify LDL goal: Hypertension or hypertensive medication, Low HDL cholesterol <40 mg/dL*, Family history of premature CHD in Male < 55 years: female <65 yearsFa and Age men > 45 years; women >/= 55 years Outcomes/Goals: Pt IDs own risk factors & lifestyle modifications by Session 10, Verbalizes symptoms of angina & response by session 3., Pt independently manages and Other Additional Outcomes/Goals: Intervention/Plan: Advocate for lipid panel cholesterol medication if applicable, Instruct on personal lipid levels & lipid goals/NCEP guidelines, Instruct on cholesterol and Other additional plan/int Diabetes (Other Core Measures) Diabetes Type: Not Applicable Weight Mgt (Other Care) Height: 5 ft 11 in Weight:: 190 lb BMI: 26.4 Diagnosis Overweight/Obesity BMI> 30% ICD-10 E66: No Diagnosis High BMI/Morbid Obesity BMI> 35% ICD-10 Z68: No Outcomes/Goals: Pt sets, maintains & shows weight loss goal & trend during rehab and Other additional outcomes/goals Intervention/Plan: Instruct on ideal BMI & set weight loss goal w/patient, Assist pt to ID & incorporate diet changes for weight loss by S9, Refer to Structured Weight Loss program as appropriate, Encourage goal of using 250-300dcal per session for weight loss and Other additional plan/interventions Healthy Eating Habits Will attend diet classes:: Yes Outcomes/Goals:: Consume diet rich in vegs,fruits,whole grain/high fiber,fish,lean meat, Limit sat/trans fats,cholesterol & added salts & sugars and Other additional outcome/goals: Intervention/Plan:: Assess current eating habits and Other Additional plan/interventions 30-day Reassessments:: Progressing Reassessment Notes & Comments:: Pt will attend nutrition class with our tile designer. Low sodium heart healthy diet encouraged. Education Gave educational materials for:: Signs & symptoms of hypoglycemia, Signs & symptoms of hyperglycemia, Relate diabetes to coronary artery disease and Healthy eating Nutrition - 60-Day Assessment Weight Mgt (Other Care) Height: 5 ft 11 in Weight:: 190 lb BMI: 26.4 Core - 30-Day Assessment Medication Compliance Preventative Medication(s):: Aspirin, Statin/lipid, Beta darcy and Eliquis H/O mental health issues: depression, anxiety, or addiction?: Yes Doesn?t believe in the benefits of treatment?: No Believes medications are unnecessary or harmful?: No Has a concern about medication side effects?: No Expresses concern over the cost of medications?: No Outcomes/Goals: Verbalizes medications,desired effect & common side effects @ DC, Pt self-reports following medication regimen, Keeps card in wallet w/medications listed by DC and Other additional outcome/goals: Interventions/plans: Instruct on medication effects & side effects, Review medication list w/patient every two weeks, Instruct importance of taking meds as ordered & assist problem solving and Other additional Tobacco Use Tobacco Use: Non-smoker Hypertension Hypertension Diagnosis:: Hypertension ICD-10 I10 Resting Blood Pressure:: 140/80 [place] [employer] Hypertension Guidelines Peak Exercise Blood Pressure:: 120/82 Outcomes/Goals: Able to verbalize/achieve optimal blood pressure <130/80, Incorporates diet changes & exercise for blood pressure control by DC and Other additional outcomes/goals Interventions/plan: Instruct on optimal blood pressure, hypertension & medications, Instruct on effects of sodium, alcohol, stress, exercise &hypertension and Other additional plan/interventions 30 day Reassessments:: Progressing Reassessment Notes & Comments:: Pt's BP's are within AHA normal limits on most days. Will continue to monitor and report to pt's physician if necessary. Low sodium diet encouraged. Tobacco Cessation Referral Smoking Cessation Referral:: No Individual Education/Counseling:: No Education Schedule Given:: Yes Psychosocial - 30-Day Assess VIsit Date of Eval: 05/29/24 Session #:: 7 History of previous Mental disease:: Yes History of Emotional Disorders: Anxious and Depression Target Goals Target Goals Psychosocial Test Tool Used:: [employer] QOL Cardiac and PHQ-9 Questionnaire phq-9 Severity See PHQ-9 Score: 4 Referral to Behavioral Health PS - Interventions: Yes: Attend Stress Management Classes Outcomes/Goals: See list Psychosocial Outcomes/Goals:: ID's personal stressors & 2 strategies to manage stress by discharge and Other Additional outcome/goals: Intervention/Plan: See List Interventions/Plan:: Assess stressors,coping strategies & signs of derpression on admission, Instruct/assist pt to develop coping & personal stress Mgt strategies, Refer to Behavioral Health if appropriate, Refer to Physician if appropriate, Instruct patient to recognize signs & symptoms of depression, Instruct patient to recog and Other additional plan/intervention 30-day Reassessments: 30 day Reassessments:: Progressing Reassessment Notes & Comments:: Pt will attend stress management class. Pt will also attend class with [facility]. Psychosocial - 60-Day Assess Target Goals Target Goals Referral to Behavioral Health PS - Interventions: Yes: Attend Stress Management Classes Outcomes/Goals: See list Psychosocial Outcomes/Goals:: ID's personal stressors & 2 strategies to manage stress by discharge and Other Additional outcome/goals: Psychosocial - 90-Day Assess Target Goals Target Goals Referral to Behavioral Health PS - Interventions: Yes: Attend Stress Management Classes Psychosocial - Final Assessmen Target Goals Target Goals Referral to Behavioral Health PS - Interventions: Yes: Attend Stress Management Classes Nutrition - 90-Day Assessment Weight Mgt (Other Care) Height: 5 ft 11 in Weight:: 190 lb BMI: 26.4 Nutrition - Final Assessment Weight Mgt (Other Care) Height: 5 ft 11 in Weight:: 190 lb BMI: 26.4
[2024-05-29 07:40] VITALS: BP 140/80; BMI 26.4
== END 2024-06-18 23:59 ==
LOC: CR 10:15
PROVIDERS: PCP Family Medicine; Referring Provider Thoracic Surgery (Cardiothoracic Vascular Surgery); Visit Provider Thoracic Surgery (Cardiothoracic Vascular Surgery)
DX: Z95.1 Presence of aortocoronary bypass graft (principal)
CPT/HCPCS: 93798

== ENCOUNTER 2024-07-18 10:15 | Outpatient (RCR) | payer MEDICARE, SELFPAY ==
[2024-05-29 07:40] VITALS: BMI 26.4
[2024-06-19 00:13] VITALS: BP 140/80
--- NOTE | 2024-06-26 08:00 | PCM.CR.ITP ---
Exercise - Initial Assessment Physician Prescribed Exercise Modalities: Jason Gune AD-7 and SciFit Stepper Nutrition - Initial Assessment Weight Mgt (Other Care) Height: 5 ft 11 in Weight:: 192 lb BMI: 26.7 Core - Initial Assessment Hypertension Resting Blood Pressure:: 89/62 [place] [employer] Hypertension Guidelines Psychosocial - Initial Assess Target Goals Target Goals Referral to Behavioral Health PS - Interventions: Yes: Attend Stress Management Classes Patient Health Questionnaire PHQ-9 Screening 60-Day Re-eval Assessment: 1. Little interest or pleasure in doing things: Several days 2. Feeling down, depressed, or hopeless: Several days 3. Trouble falling or staying asleep, or sleeping too much: Not at all 4. Feeling tired or having little energy: Several days 5. Poor appetite or overeating: Not at all 6. Feeling bad about yourself -- or that you are a failure or have let yourself or your family down: Not at all 7. Trouble concentrating on things, such as reading the newspaper or watching television: Several days 8. Moving or speaking so slowly that other people could have noticed. Or the opposite - being so fidgety or restless that you have been moving around a lot more than usual: Not at all 9. Thoughts that you would be better off , or of hurting yourself in some way: Not at all How difficult have these problems made it for you to do your work, take care of things at home, or get along with other people?: Not difficult at all Total Score: 4 Self-Efficacy 6-Item Scale 60-Day Re-eval Assessment: We would like to know how confident you are in doing certain activities. Please select your confidence level for: Fatigue Select Number: 9 Physical Discomfort or Pain Select Number: 8 Emotional Distress Select Number: 7 Other Symptoms or Health Problems Select Number: 8 Different Tasks and Activities Select Number: 8 Medication Select Number: 6 Total Score:: 7 Nutrition Survey Nutrition Survey Instructions Scoring Instructions Exercise - 30-day Assessment Physician Prescribed Exercise Modalities: Panchon Riccardone AD-7 and SciFit Stepper Exercise - 60-day Assessment Visit Date of Eval: 06/26/24 Session #:: 19 Physician Prescribed Exercise Modalities: Jason Gune AD-7 and SciFit Stepper Frequency: 3x/week for 12 weeks [36 sessions] Intensity: 60-80% of age predicted maximum heart rate reserve Duration: 30 - 45 minutes Current METSs:: 4.3 Target Heart Rate:: 86-108 Current RPE:: 14 Maximum Excercise HR:: 92 Resting Blood Pressure: 92/64 Maximum Exercise Blood Pressure: 110/76 EKG Type: NSR with rare PAC/PVC Outcomes & Goals Goals:: Verbalizes understanding of THR, RPE & goal METS by session 6, Documents in home exercise log/reports 30 min aerobic 5 day/wk by DC, Demonstrates accurate pulse taking by DC and Other additional outcome/goals: see below Intervention & Plan Exercise Program Goals: Instruct on personal THR & RPE, Instruct on MET level & personal MET goal, Show patient to take own pulse /validate performance until accurate, Instruct on home exercise and Other additional plan/int Physical Activity Home Exercise Physical Activity - Home Exercise: Safe Exercise, Warm-up, Self-monitoring, Cool-Down, Home Exercise > 30 min Daily and Sitting Time <3 hours/daily Outcomes & Goals Outcomes/Goals: Demonstrates correct Warm-up/exercise Cool-Down (S3) if = 2.5 METs, Verbalizes symptoms of exercise intolerance by Session 3 (S3), Demonstrate safe equipment use (S3) & follows exercise prescrition (6) and Other: See below Intervention & Plan Plan/Intervention: Instruct warm-up & cool-down if exercising at > 2 METs, Instruct on symptoms of exercise intolerance & actions to take, Instruct & monitor on saf, Assess intial functional capacity & safety risk and Other See below 30-day Reassessments 30 day Reassessments:: Progressing Reassessment Notes & Comments:: Proper warm up and cool down explained to pt. Pt is able to return demonstration in his daily sessions. Exercise - 90-day Assessment Physician Prescribed Exercise Modalities: Jason Oglesby AD-7 and SciFit Stepper Exercise - Final/Discharge Physician Prescribed Exercise Modalities: Danielinn dyne AD-7 and SciFit Stepper Nutrition - 30-Day Assessment Weight Mgt (Other Care) Height: 5 ft 11 in Weight:: 192 lb BMI: 26.7 Nutrition - 60-Day Assessment Program Goals Nutrition Program Goals Patient has diagnosis of Hyperlipidemia (ICD E78)?: Yes Visit Date of Eval: 06/26/24 Session #:: 19 Cholesterol/Lipids (Other Core Measures) Determine presence & major risk factors that modify LDL goal: Hypertension or hypertensive medication, Low HDL cholesterol <40 mg/dL*, Family history of premature CHD in Male < 55 years: female <65 yearsFa and Age men > 45 years; women >/= 55 years Outcomes/Goals: Pt IDs own risk factors & lifestyle modifications by Session 10, Verbalizes symptoms of angina & response by session 3., Pt independently manages and Other Additional Outcomes/Goals: Intervention/Plan: Advocate for lipid panel cholesterol medication if applicable, Instruct on personal lipid levels & lipid goals/NCEP guidelines, Instruct on cholesterol and Other additional plan/int Diabetes (Other Core Measures) Diabetes Type: Not Applicable Weight Mgt (Other Care) Height: 5 ft 11 in Weight:: 192 lb BMI: 26.7 Diagnosis Overweight/Obesity BMI> 30% ICD-10 E66: No Diagnosis High BMI/Morbid Obesity BMI> 35% ICD-10 Z68: No Outcomes/Goals: Pt sets, maintains & shows weight loss goal & trend during rehab and Other additional outcomes/goals Intervention/Plan: Instruct on ideal BMI & set weight loss goal w/patient, Assist pt to ID & incorporate diet changes for weight loss by S9, Refer to Structured Weight Loss program as appropriate, Encourage goal of using 250-300dcal per session for weight loss and Other additional plan/interventions Healthy Eating Habits Will attend diet classes:: Yes Outcomes/Goals:: Consume diet rich in vegs,fruits,whole grain/high fiber,fish,lean meat, Limit sat/trans fats,cholesterol & added salts & sugars and Other additional outcome/goals: Intervention/Plan:: Assess current eating habits and Other Additional plan/interventions 30-day Reassessments:: Progressing Reassessment Notes & Comments:: Pt will attend nutrition class. Low sodium heart healthy diet encouraged. Pt will have the option of meeting with our post acute care registered nurse 1 on 1. Education Gave educational materials for:: Signs & symptoms of hypoglycemia, Signs & symptoms of hyperglycemia, Relate diabetes to coronary artery disease and Healthy eating Core - Final Assessment Hypertension Resting Blood Pressure:: 89/62 [place] [employer] Hypertension Guidelines Core - 60-Day Assessment Visit Date of Eval: 06/26/24 Session #:: 19 Medication Compliance Preventative Medication(s):: Aspirin, Statin/lipid, Beta darcy and Eliquis H/O mental health issues: depression, anxiety, or addiction?: Yes Doesn?t believe in the benefits of treatment?: No Believes medications are unnecessary or harmful?: No Has a concern about medication side effects?: No Expresses concern over the cost of medications?: No Outcomes/Goals: Verbalizes medications,desired effect & common side effects @ DC, Pt self-reports following medication regimen, Keeps card in wallet w/medications listed by DC and Other additional outcome/goals: Interventions/plans: Instruct on medication effects & side effects, Review medication list w/patient every two weeks, Instruct importance of taking meds as ordered & assist problem solving and Other additional Tobacco Use Tobacco Use: Non-smoker Hypertension Hypertension Diagnosis:: Hypertension ICD-10 I10 Resting Blood Pressure:: 92/64 Resting Blood Pressure:: 89/62 [place] [employer] Hypertension Guidelines Peak Exercise Blood Pressure:: 110/76 Outcomes/Goals: Able to verbalize/achieve optimal blood pressure <130/80, Incorporates diet changes & exercise for blood pressure control by DC and Other additional outcomes/goals Interventions/plan: Instruct on optimal blood pressure, hypertension & medications, Instruct on effects of sodium, alcohol, stress, exercise &hypertension and Other additional plan/interventions 30 day Reassessments:: Progressing Reassessment Notes & Comments:: Pt's BP's are within AHA normal limits on most days. Will continue to monitor. Tobacco Cessation Referral Smoking Cessation Referral:: No Individual Education/Counseling:: No Education Schedule Given:: Yes Psychosocial - 30-Day Assess Target Goals Target Goals Referral to Behavioral Health PS - Interventions: Yes: Attend Stress Management Classes Outcomes/Goals: See list Psychosocial Outcomes/Goals:: ID's personal stressors & 2 strategies to manage stress by discharge and Other Additional outcome/goals: Psychosocial - 60-Day Assess VIsit Date of Eval: 06/26/24 Session #:: 19 History of previous Mental disease:: Yes History of Emotional Disorders: Anxious and Depression Target Goals Target Goals Psychosocial Test Tool Used:: [employer] QOL Cardiac and PHQ-9 Questionnaire phq-9 Severity See PHQ-9 Score: 4 Referral to Behavioral Health PS - Interventions: Yes: Attend Stress Management Classes Outcomes/Goals: See list Psychosocial Outcomes/Goals:: ID's personal stressors & 2 strategies to manage stress by discharge and Other Additional outcome/goals: Intervention/Plan: See List Interventions/Plan:: Assess stressors,coping strategies & signs of derpression on admission, Instruct/assist pt to develop coping & personal stress Mgt strategies, Refer to Behavioral Health if appropriate, Refer to Physician if appropriate, Instruct patient to recognize signs & symptoms of depression, Instruct patient to recog and Other additional plan/intervention 30-day Reassessments: 30 day Reassessments:: Progressing Reassessment Notes & Comments:: Pt to attend stress management class and class with [facility] Behavioral Health. PHQ-9 score of 4. Psychosocial - 90-Day Assess Target Goals Target Goals Referral to Behavioral Health PS - Interventions: Yes: Attend Stress Management Classes Psychosocial - Final Assessmen Target Goals Target Goals Referral to Behavioral Health PS - Interventions: Yes: Attend Stress Management Classes Nutrition - 90-Day Assessment Weight Mgt (Other Care) Height: 5 ft 11 in Weight:: 192 lb BMI: 26.7 Nutrition - Final Assessment Weight Mgt (Other Care) Height: 5 ft 11 in Weight:: 192 lb BMI: 26.7
[2024-06-26 08:16] VITALS: BP 89/62; BP 92/64; BMI 26.7
== END 2024-07-19 23:59 ==
LOC: CR 10:15
PROVIDERS: PCP Family Medicine; Referring Provider Thoracic Surgery (Cardiothoracic Vascular Surgery); Visit Provider Thoracic Surgery (Cardiothoracic Vascular Surgery)
DX: Z95.1 Presence of aortocoronary bypass graft (principal)
CPT/HCPCS: 93798

== ENCOUNTER 2024-08-06 10:15 | Outpatient (RCR) | payer MEDICARE, SELFPAY ==
[2024-06-26 08:16] VITALS: BMI 26.7
[2024-07-20 00:10] VITALS: BP 140/80; BP 89/62; BP 92/64
--- NOTE | 2024-07-24 13:00 | CR.ITP_ITS ---
Exercise - Initial Assessment Physician Prescribed Exercise Modalities: Jason Oglesby AD-7 and SciFit Stepper Nutrition - Initial Assessment Weight Mgt (Other Care) Height: 5 ft 11 in Weight:: 193 lb BMI: 26.9 Psychosocial - Initial Assess Target Goals Target Goals Referral to Behavioral Health PS - Interventions: Yes: Attend Stress Management Classes Patient Health Questionnaire PHQ-9 Screening 90-Day Re-eval Assessment: 1. Little interest or pleasure in doing things: Several days 2. Feeling down, depressed, or hopeless: Several days 3. Trouble falling or staying asleep, or sleeping too much: Not at all 4. Feeling tired or having little energy: Several days 5. Poor appetite or overeating: Not at all 6. Feeling bad about yourself -- or that you are a failure or have let you rself or your family down: Not at all 7. Trouble concentrating on things, such as reading the newspaper or watching television: Several days 8. Moving or speaking so slowly that other people could have noticed. Or the opposite - being so fidgety or restless that you have been moving around a lot more than usual: Not at all 9. Thoughts that you would be better off , or of hurting yourself in some way: Not at all How difficult have these problems made it for you to do your work, take care of things at home, or get along with other people?: Not difficult at all Total Score: 4 Self-Efficacy 6-Item Scale 90-Day Re-eval Assessment: We would like to know how confident you are in doing certain activities. Please select your confidence level for: Fatigue Select Number: 9 Physical Discomfort or Pain Select Number: 8 Emotional Distress Select Number: 7 Other Symptoms or Health Problems Select Number: 8 Different Tasks and Activities Select Number: 8 Medication Select Number: 6 Total Score:: 7 Nutrition Survey Nutrition Survey Instructions Scoring Instructions Exercise - 30-day Assessment Physician Prescribed Exercise Modalities: Jason Oglesby AD-7 and Sci[employer] Stepper Exercise - 60-day Assessment Physician Prescribed Exercise Modalities: Jason Oglesby AD-7 and SciFit Stepper Exercise - 90-day Assessment Visit Date of Eval: 07/24/24 Session #:: 30 Physician Prescribed Exercise Modalities: Jason Oglesby AD-7 and SciFit Stepper Frequency: 3x/week for 12 weeks [36 sessions] Intensity: 60-80% of age predicted maximum heart rate reserve Duration: 30 - 45 minutes Current METSs:: 5.3 Target Heart Rate:: 86-115 Current RPE:: 14 Maximum Excercise HR:: 86 Resting Blood Pressure: 106/70 Maximum Exercise Blood Pressure: 122/74 EKG Type: NSR with rare PAC, Short run of tachycardia Outcomes & Goals Goals:: Verbalizes understanding of THR, RPE & goal METS by session 6, Documents in home exercise log/reports 30 min aerobic 5 day/wk by DC, Demonstrates accurate pulse taking by DC and Other additional outcome/goals: see below Intervention & Plan Exercise Program Goals: Instruct on personal THR & RPE, Instruct on MET level & personal MET goal, Show patient to take own pulse /validate performance until accurate, Instruct on home exercise and Other additional plan/int Physical Activity Home Exercise Physical Activity - Home Exercise: Safe Exercise, Warm-up, Self-monitoring, Cool-Down, Home Exercise > 30 min Daily and Sitting Time <3 hours/daily Outcomes & Goals Outcomes/Goals: Demonstrates correct Warm-up/exercise Cool-Down (S3) if = 2.5 METs, Verbalizes symptoms of exercise intolerance by Session 3 (S3), Demonstrate safe equipment use (S3) & follows exercise prescrition (6) and Other: See below Intervention & Plan Plan/Intervention: Instruct warm-up & cool-down if exercising at > 2 METs, Instruct on symptoms of exercise intolerance & actions to take, Instruct & monitor on saf, Assess intial functional capacity & safety risk and Other See below 30-day Reassessments 30 day Reassessments:: Met Reassessment Notes & Comments:: Pt has been able to increase his exercise intensity and duration. Wii give pt his exercise prescription as well as community recourses to continue his exercise upon graduation Exercise - Final/Discharge Physician Prescribed Exercise Modalities: Jason Oglesby AD-7 and SciFit Stepper Nutrition - 30-Day Assessment Weight Mgt (Other Care) Height: 5 ft 11 in Weight:: 193 lb BMI: 26.9 Nutrition - 60-Day Assessment Weight Mgt (Other Care) Height: 5 ft 11 in Weight:: 193 lb BMI: 26.9 Core - 30-Day Assessment Hypertension [place] [employer] Hypertension Guidelines Reassessment Notes & Comments:: Pt's BP's are within AHA normal limits. Will continue to encourage a heart healthy low sodium diet. Core - Final Assessment Hypertension [place] [employer] Hypertension Guidelines Reassessment Notes & Comments:: Pt's BP's are within AHA normal limits. Will continue to encourage a heart healthy low sodium diet. Core - 90 Day Assessment Visit Date of Eval: 07/24/24 Session #:: 30 Medication Compliance Preventative Medication(s):: Aspirin, Statin/lipid, Beta darcy and Eliquis H/O mental health issues: depression, anxiety, or addiction?: Yes Doesn?t believe in the benefits of treatment?: No Believes medications are unnecessary or harmful?: No Expresses concern over the cost of medications?: No Outcomes/Goals: Verbalizes medications,desired effect & common side effects @ DC, Pt self-reports following medication regimen, Keeps card in wallet w/medications listed by DC and Other additional outcome/goals: Interventions/plans: Instruct on medication effects & side effects, Review medication list w/patient every two weeks, Instruct importance of taking meds as ordered & assist problem solving and Other additional Tobacco Use Tobacco Use: Non-smoker Hypertension Hypertension Diagnosis:: Hypertension ICD-10 I10 Resting Blood Pressure:: 106/70 [place] [employer] Hypertension Guidelines Peak Exercise Blood Pressure:: 122/74 Outcomes/Goals: Able to verbalize/achieve optimal blood pressure <130/80, Incorporates diet changes & exercise for blood pressure control by DC and Other additional outcomes/goals Interventions/plan: Instruct on optimal blood pressure, hypertension & medications, Instruct on effects of sodium, alcohol, stress, exercise &hypertension and Other additional plan/interventions 30 day Reassessments:: Met Reassessment Notes & Comments:: Pt's BP's are within AHA normal limits. Will continue to encourage a heart healthy low sodium diet. Tobacco Cessation Referral Smoking Cessation Referral:: No Individual Education/Counseling:: No Education Schedule Given:: Yes Psychosocial - 30-Day Assess Target Goals Target Goals Referral to Behavioral Health PS - Interventions: Yes: Attend Stress Management Classes Psychosocial - 60-Day Assess Target Goals Target Goals Referral to Behavioral Health PS - Interventions: Yes: Attend Stress Management Classes Psychosocial - 90-Day Assess VIsit Date of Eval: 07/24/24 Session #:: 30 History of previous Mental disease:: Yes History of Emotional Disorders: Anxious and Depression Target Goals Target Goals Psychosocial Test Tool Used:: PHQ-9 Questionnaire phq-9 Severity See PHQ-9 Score: 4 Referral to Behavioral Health PS - Interventions: Yes: Attend Stress Management Classes Outcomes/Goals: See list Psychosocial Outcomes/Goals:: ID's personal stressors & 2 strategies to manage stress by discharge and Other Additional outcome/goals: Intervention/Plan: See List Interventions/Plan:: Assess stressors,coping strategies & signs of derpression on admission, Instruct/assist pt to develop coping & personal stress Mgt strategies, Refer to Behavioral Health if appropriate, Refer to Physician if appropriate, Instruct patient to recognize signs & symptoms of depression, Instruct patient to recog and Other additional plan/intervention 30-day Reassessments: 30 day Reassessments:: Progressing Reassessment Notes & Comments:: Pt is attending stress management class. Will continue to monitor. Psychosocial - Final Assessmen Target Goals Target Goals Referral to Behavioral Health PS - Interventions: Yes: Attend Stress Management Classes Nutrition - 90-Day Assessment Program Goals Nutrition Program Goals Patient has diagnosis of Hyperlipidemia (ICD E78)?: Yes Visit Date of Eval: 07/24/24 Session #:: 30 Cholesterol/Lipids (Other Core Measures) Determine presence & major risk factors that modify LDL goal: Hypertension or hypertensive medication, Low HDL cholesterol <40 mg/dL*, Family history of premature CHD in Male < 55 years: female <65 yearsFa and Age men > 45 years; women >/= 55 years Outcomes/Goals: Pt IDs own risk factors & lifestyle modifications by Session 10, Verbalizes symptoms of angina & response by session 3., Pt independently manages and Other Additional Outcomes/Goals: Intervention/Plan: Advocate for lipid panel cholesterol medication if applicable, Instruct on personal lipid levels & lipid goals/NCEP guidelines, Instruct on cholesterol and Other additional plan/int Diabetes (Other Core Measures) Diabetes Type: Not Applicable Weight Mgt (Other Care) Height: 5 ft 11 in Weight:: 193 lb BMI: 26.9 Diagnosis Overweight/Obesity BMI> 30% ICD-10 E66: No Diagnosis High BMI/Morbid Obesity BMI> 35% ICD-10 Z68: No Outcomes/Goals: Pt sets, maintains & shows weight loss goal & trend during rehab and Other additional outcomes/goals Intervention/Plan: Instruct on ideal BMI & set weight loss goal w/patient, Assist pt to ID & incorporate diet changes for weight loss by S9, Refer to Structured Weight Loss program as appropriate, Encourage goal of using 250- 300dcal per session for weight loss and Other additional plan/interventions 30 day Reassessments:: Met Reassessment Notes & Comments:: Pt is at a healthy weight. Pt has attended nutrition class. Pt understands the benefits of a low sodium heart healthy diet. Healthy Eating Habits Will attend diet classes:: Yes Outcomes/Goals:: Consume diet rich in vegs,fruits,whole grain/high fiber,fish,lean meat, Limit sat/trans fats,cholesterol & added salts & sugars and Other additional outcome/goals: Intervention/Plan:: Assess current eating habits and Other Additional plan/interventions 30-day Reassessments:: Met Reassessment Notes & Comments:: Pt is at a healthy weight. Pt has attended nutrition class. Pt understands the benefits of a low sodium heart healthy diet. Education Gave educational materials for:: Signs & symptoms of hypoglycemia, Signs & symptoms of hyperglycemia, Relate diabetes to coronary artery disease and Healthy eating Nutrition - Final Assessment Weight Mgt (Other Care) Height: 5 ft 11 in Weight:: 193 lb BMI: 26.9
[2024-07-24 13:20] VITALS: BP 106/70; BMI 26.9
== END 2024-08-18 23:59 ==
LOC: CR 10:15
PROVIDERS: PCP Family Medicine; Referring Provider Thoracic Surgery (Cardiothoracic Vascular Surgery); Visit Provider Thoracic Surgery (Cardiothoracic Vascular Surgery)
DX: Z95.1 Presence of aortocoronary bypass graft (principal)
CPT/HCPCS: 93798

== ENCOUNTER 2025-01-26 07:44 | Observation (INO) | payer MEDICARE, SELFPAY ==
[2024-07-24 13:20] VITALS: BMI 26.9
--- NOTE | 2025-01-13 12:35 | PAT.ANE_ITS ---
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 When Was Last Pacemaker Check QUESTION #4 FULL TEXT: You/Your Family Experience fever (hyperthermia) with Anesthesia Last Oral Intake Last Oral intake: Last Oral Intake NPO since Meds taken in AM with sips of water? 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 Female No 01/01/25 08:28 HX of Motion Sickness No 01/01/25 08:28 HX of N/V After Surgery No 01/01/25 08:28 Non-Smoker Yes 01/01/25 08:28 Duration of Surgery greater Yes 01/01/25 08:28 than 60 minutes Number of Risk Factors 2 01/01/25 08:28 PONV Score Moderate Risk 01/01/25 08:28 Height & Weight Height & Weight: Anesthesia: Height & Weight Height 5 ft 11 in 07/24/24 13:20 Respiratory Assessment Respiratory Assessment - roll coating machine operator: Respiratory Tract Infection Hx - 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 Has anyone observed you stop No 01/01/25 08:28 breathing during sleep? STOP Results Negative 11/13/25 08:28 QUESTION #5 FULL TEXT : Do you snore loudly (louder than talking or can be heard through closed doors)? 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 Specify any problems Hx of Preganancy in last 3 N/A 01/01/25 08:28 Months Nurse Filling Out Transfusion DSCHRIBER 01/01/25 08:28 & Questions: Date: 01/01/25 01/01/25 08:28 Time: 08:32 01/01/25 08:28 Patient unable to answer at this time (ie. 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: /Reproductive Hx- roll coating machine operator Hx Now No 01/01/25 08:28 Gestational Age (in weeks): EDC: Hx Hx Para Hx Section SAB No 01/01/25 08:28 Does the father of the baby or his family experience fever w Father of the baby Malignant Hypertension history comment [facility] Medical History (Updated 01/01/25 @ 09:01 by Janice Conway) History of IBS History of GI bleed Sleep apnea History of edema History of CHF (congestive heart failure) History of echocardiogram History of stress test Cardiology follow-up encounter Lives in assisted living facility Wears glasses Anxiety Alcohol use History of renal disease Arthritis Anemia Syncope History of ulceration Non-smoker History of pain when walking Dementia Colon polyps Macular degeneration Hypertension Hyperlipidemia BPH (benign prostatic hyperplasia) Home Medications ?Medication ?Instructions ?Recorded ?Last Taken ?Type donepezil 5 mg tablet 10 mg PO DAILY 06/04/23 02/0 11/13 History fluticasone propionate 50 2 spray intranasal DAILY PRN PRN 09/28/23 Unknown History mcg/actuation nasal nasal congestion spray,suspension acetaminophen 500 mg capsule 1,000 mg PO Q8H PRN PRN p ain 03/27/24 03/30/24 History ascorbic acid (vitamin C) 500 mg 500 mg PO DAILY 03/2703/30/24 History tablet (Vitamin C) aspirin 81 mg capsule 81 mg PO DAILY 03/27/2411/13 History atorvastatin 40 mg tablet 80 mg PO DAILY 03/27/2411/13 History cholecalciferol (vitamin D3) 25 25 mcg PO DAILY 03/30/24 History mcg (1,000 unit) capsule (Vitamin D3) cyanocobalamin (vitamin B-12) 1,000 mcg PO DAILY 03/2703/30/24 History 1,000 mcg tablet furosemide 40 mg tablet (Lasix) 20 mg PO .QD PRN edema 03/27/24 03/30/24 History magnesium 200 mg tablet 400 mg PO DAILY 03/27/2411/13 History metoprolol succinate 25 mg 12.5 mg PO BID 03/27/2411/13 History tablet,extended release 24 hr potassium chloride 20 mEq oral 20 meq PO DAILY PRN WIT H USE OF 03/27/24 03/30/24 History packet (Klor-Con) LASIX sennosides 8.6 mg-docusate sodium 1 tab-cap PO QHS 08/1303/30/24 History 50 mg tablet (Senna Plus) tamsulosin 0.4 mg capsule 0.4 mg PO BID 03/27/2403/30 History pantoprazole 40 mg tablet,delayed 40 mg PO DAILY #30 t abs 09/12/24 Unknown Rx release (Protonix) L.acidophilus-B.animalis-B.longum 1 cap PO DAILY 01/01 Unknown History 15 billion cell capsule (Florajen Digestion) brimonidine 0.2 % eye drops 1 drp ophthalmic (eye) BID 01/01/25 Unknown History casanthranol-docusate sodium 30 1 cap PO DAILY 5 Unknown History mg-100 mg capsule cholecalciferol (vitamin D3) 25 25 mcg PO DAILY Unknown History mcg (1,000 unit) capsule (Vitamin D3) ferrous sulfate 325 mg (65 mg 325 mg PO DAILY 01/01/25 Unknown History iron) tablet (FeroSul) folic acid 1 mg tablet 1 mg PO DAILY 01/01/25 Unkno wn History latanoprost 0.005 % eye drops 1 drp ophthalmic (eye) Q HS 01/01/25 Unknown History melatonin 3 mg capsule 3 mg PO QHS PRN sleep Unknown History memantine 5 mg tablet 5 mg PO DAILY 01/01/25 Unkno wn History polyethylene glycol 3350 17 17 g PO DAILY 01/01/25 Unk nown History gram/dose oral powder (Miralax) vit C 250 mg-vit E 90 mg-zinc 40 1 tab PO BID 01/01/25 Unknown History mg-copper 1 [id number]-[id number]-jbdvta capsule (PreserVision AREDS-2) Allergy/AdvReac Type Severity Reaction Status Date / Time No Known Allergies Allergy Verified 01/01/25 08:45 Family History Other CVA (cerebral vascular accident) Surgical History (Updated 01/01/25 @ 09:01 by Janice Conway) Hx of colonoscopy Hx of rhinoplasty History of carpal tunnel surgery of right wrist History of carpal tunnel surgery of left wrist Hx of arthroscopic knee surgery Hx of microdiscectomy History of heart surgery Hx of inguinal hernia repair Hx of sinus surgery Hx of esophagogastroduodenoscopy Social History Smoking Status: Never smoker Audit: Pertinent Findings HISTORY of Pertinent Findings History of Pertinent Findings: CAD s/p CABGx3 02/2024, HTN, HLD. Hx post-operative afib, but no issues recently. Cleared by Dr. Gill (packing checker) as low and acceptable risk for planned moderate risk procedure Pertinent Findings EKG Perinent findings: 03/2024: SR with frequent PVCs, LAD, low voltage QRS Echo (EF%) pertinent findings: Echo 04/2024: LV is normal, LV Sys fxn WNL, EF 61%. Left atrial cavity severely dilated, right atrial cavity mildly dilated. Aorta is borderline dilated, max dimension of 4.0 cm Recommendation Anesthesia Recommendation Anesthesia recommendation: OPTIMIZED for anesthesia
--- NOTE | 2025-01-14 21:08 | PCM.HP.BLA ---
History and Physical History and Physical? Patient Name: Homero Maria : 1945From:? PETTY LEIVA PA-C? DATE OF PRE-OPERATIVE EXAM: 01/14/2025 DATE OF SURGERY:? 01/26/2025 SCHEDULED PROCEDURE:? Direct anterior right total hip arthroplasty HISTORY OF PRESENT ILLNESS: Preoperative history and physical exam was performed on January 14, 2025.? This is a 79-year-old male who is been having ongoing pain for several years with his right hip.? Patient's pain has been intermittent, aching, and sharp.? Patient has seen progressively worsening hip pain which has now affected his mobility and quality of life.? He has difficulty with activities of daily living including putting on his socks and shoes.? He was able to walk longer distances and now due to the pain his walking has been limited.? He has no longer able to bike around the community in which she is currently in assisted living at [facility].? Patient has been using extra strength Tylenol for pain control.? Patient earlier this year in February 2024 underwent a open heart CABG triple bypass.? He completed his cardiac rehabilitation.? There is documentation in the clearance is with patient having a reaction to the anesthesia with mental status changes postoperatively.? Patient's son also has stated that there is been decline in patient's memory following the heart surgery.? He denies past history of surgery on the right hip.? After failing conservative measures and discussing all treatment options with Dr. Aurelio Sweeney, the patient does wish to proceed with a direct anterior right total hip arthroplasty.? He has obtain surgical clearance from his foreign broadcast specialist Dr. Gill and primary care provider Dr. Tobias patient denies recent chest pain, shortness of breath, fevers chills.? No past history of DVT or pulmonary embolism.?? REVIEW OF SYSTEMS: Review Of Systems: Constitutional: Denies anorexia, change in appetite, fever, difficulty sleeping, weight change. Cardiovasular: Reports CAD, CHF and irregular heartbeat, but denies chest pain, heart murmur and peripheral vascular disease. Respiratory: Reports sleep apnea, but denies asthma, cough, pneumonia, shortness of breath, tuberculosis and wheezing. Gastrointestinal: Denies constipation, diarrhea, heartburn, nausea, rectal itching, bloody stools and vomiting. Genitourinary: Denies incontinence. Musculoskeletal: Reports gait disturbance, leg swelling, lower extremity pain, trouble walking and weakness, but denies pain. Skin: Denies Raynaud's, history of shingles and tattoo. Neurological: Denies ambulatory dysfunction, dizziness, numbness/tingling and tremor. Psychiatric: Reports depression and memory loss, but denies anxiety, insomnia, mental illness and stress. Hematologic/Lymphatic: Reports anemia and skilled nursing anticoagulant use, but denies bleeding/bruising tendency and past transfusion. Reviewed and updated. PAST MEDICAL HISTORY: Advance Care Plan: Power Of Anode Adjuster Effective Date: 09/19/2023 Living Will Effective Date: 09/19/2023 Past Medical History: Medical Problems: Hypercholesterolemia, High Blood Pressure Covid- 19 - (FEB 2020) Dementia, History of Gastric Ulcer, BPH, lumbar ddd, Anxiety/depression, Anemia, IBS, Sleep Apnea, Psoriasis, ascending aorta dilation, Benign prostatic hyperplasia with urinary frequency Afib - history of? Coronary Artery Disease (CAD) - Mild ischemia in RCA Depression, Congestive Heart Failure (CHF), skilled nursing use of anticoagulants, upper GI bleed, vitamin D deficiency, pulmonary hypertension, chronic low back pain Accidents: None Surgical Hx: Hernia Repair - 2010 Ceptoplasty Sinus SX - 1997 Knee Arthroscopy LT - (04/10/2019) [facility] Gastric Ulcer Cauterization - (2023) Open Heart Surgery - FEBRUARY 2024 TRIPLE BYPASS Carpal Tunnel Release LT, Carpal Tunnel Release RT microdiscectomy - Benjamin Valdovinos sciatica colon surgery, colonoscopies Anesthesia Complications: Anesthesia Complications - post - CABG resulted in hallucinations and memory impairment Assistive Devices: Contacts, Glasses - CONTACTS Reviewed and updated. SOCIAL HISTORY: Social History: Marital: .Occupation: Retired.Work Status: Retired.Hand Dominance: Left-handed. Personal Habits:? Cigarette Use: Never Smoked Cigarettes.Smokeless Tobacco: Never Used Smokeless Tobacco.E-Cigarette Use: Never used.Alcohol: Occasionally.Drug Use: Denies Use.Enjoy Exercising: Exercises 1-3 X/Week - physical therapy. Reviewed and updated. VITALS: Ht: 71 Wt: 192lb Wt k.091 BMI: 26.8 BP: 116/64 Pulse: 60 Resp: 18 T: 97.6 T: 36.4C Pain Level: 9/10 O2SatR: 97 ALLERGIES: No Known Drug Allergy? MEDICATIONS: Metoprolol Tartrate 25 mg 1/2 po bid, Pantoprazole Sodium 40 mg qd, Potassium Chloride Sarai ER 20 Meq qd, Tamsulosin HCL 0.4 mg qd, Atorvastatin Calcium 80 mg qd, Brimonidine Tartrate 0.2 % qd, Donepezil HCL 10 mg qd, Fluticasone Propionate 50 mcg/Act qd, Furosemide 40 mg prn, Latanoprost 0.005 % qd, Memantine HCL 5 mg 1 po tid, Aspirin 81 81 mg qd, [facility] Vitamin B12 1000 mcg daily, Docusate Sodium 100 mg twice a day, Folic Acid 5 mg qd, Magnesium 400 mg qd, Melatonin 3 mg at bedtime as needed for sleep, Miralax Mix-In [place] 17 gm qd, Icaps Areds Formula , Tylenol Extra Strength 500 mg qd, Vitamin C 500 mg 1 by mouth every day, Vitamin D (Cholecalciferol) 50 mcg (2000 Ut) 1 tab, 1x/day, Iron 325 (65 Fe) MG daily, Senna-Docusate Sodium 8.6-50 mg 2 tabs by mouth twice a day for constipation, Preservision Areds 2 Areds 2 as directed PRE-OP EXAM:? General appearance:NORMAL? ? ? Other: Eyes: Conjunctivae and lids: NORMAL? Pupils: ERR Ears, Nose, Mouth, and Throat: NORMAL? Other: Inspection of lips, teeth and gums: NORMAL? ?Other: Neck: Examination of neck: no masses noted. Respiratory: Assessment of respiratory effort: NORMAL? ?Other: ?Auscultation of lungs: clear to auscultation no wheezes, rhonchi or rales. Cardiovascular:? Auscultation of heart: regular rate and rhythm, no murmurs, gallops or rubs. PHYSICAL EXAMINATION: On exam patient does ambulate with antalgic gait.? Right hip is without erythema or signs of infection.? He has tenderness to palpation along the lateral hip.? He has obligatory external rotation with hip flexion approximately 80.? Internal rotation neutral with pain, external rotation 15 with pain.? Sensation intact to light touch. IMAGING STUDIES: Previous x-rays of the right hip reveal severe joint space narrowing with subchondral sclerosis, osteophyte formation consistent with severe stage IV bone on bone erosive osteoarthritis with flattening of the femoral head and associated femoral head cysts.? In comparison to previous in 2023 there has been progression of the disease with progressive joint space narrowing and femoral head changes. IMPRESSION: 1.? Severe right hip osteoarthritis 2.? Hypertension 3.? Alzheimer dementia 4.? History of gastric ulcer 5.? Benign prostatic hyperplasia 6.? Anxiety/depression 7.? History of anemia 8.? Sleep apnea 9.? Coronary artery disease with previous CABG triple bypass 10.? Congestive heart failure 11.? Chronic low back pain 12.? Vitamin D deficiency PLAN: Dr. Aurelio Sweeney did discuss and review with the patient all treatment options including surgical versus nonsurgical options.? I will continue plan established by Dr. Aurelio Sweeney.? Patient does wish to proceed with the above-stated procedure.? Potential risks, benefits, and complications of the procedure were discussed in detail including but not limited to , infection, nerve and blood vessel damage, persistent pain, numbness, tingling, paresthesias, blood clot, pulmonary embolism, and requirement for possible further surgery.? The patient expressed full understanding and has no further questions for the doctor.? Patient does agree to proceed with the above-stated procedure and has signed the surgery consent form. POST-OP MEDICATION PLAN: Pain Medications: Postoperative pain regimen will be established by Dr. Aurelio Sweeney in the hospital.? We did discuss his previous postoperative anesthesia complication with mental status change.? He has documentation of dementia.? We discussed the potential for postoperative confusion and also use of narcotics.? Due to patient's medical history and cardiac history we are going to avoid nonsteroidal anti-inflammatories.? Patient will be placed on X her strength Tylenol postoperatively and narcotic.? Patient's labs are stable.? Clearances have been obtained.? We discussed his benign prostatic hyperplasia and potential for postoperative urinary retention.? He will continue on his Flomax.? Patient will bring his walker to the hospital.? There was concerns for discharge planning on going back to the assisted living [facility].? I did advise the patient and his son that the care management team will be on board for safe and appropriate discharge planning.? If patient does not qualify for placement may need to consider home health physical therapy.? They did voice understanding. DVT Prophylaxis Plan:? Aspirin 81 mg twice daily for 4 weeks postoperatively.? Denies past history of DVT or pulmonary embolism.? Continue with OBB borairving for 2 weeks postoperatively. This dictation was created using voice recognition software. Phonetic and/or grammatical errors may exist. ___? I have re-examined the patient.? There are no clinical changes since date of exam. ___? See progress notes for changes. ___? Dictated on admission Date: ? ? ?Time: Signature:
[2025-01-20 15:44] LABS: Magnesium 2.6 mg/dL (1.5-2.2)
[2025-01-26] VITALS (16 sets, daily range): BP systolic 113–177; BP diastolic 64–108; PULSE 53–75; RESP 16–18; TEMP 36.1–37.1; O2SAT 97–100; BMI 26.8
--- OUTSIDE RECORDS SUMMARY | 2025-01-26 06:48 | XMS RPT_ITS | CCD ---
Author Organization [facility] Care Team Providers Care Casing Operator Name Role Phone Lenin Chaudhary MD Primary Care Provider JET LINDO, LENIN Primary Care Physician ( [phone] Dr. Moiz Chaudhary Primary Care Provider MD Abrahan Ronak Emergency Provider Dr. Matthew Snow Admit Provider Dr. Matthew Snow Attending Provider Dr. Matthew Snow Other Provider Dr. William Romeo Other Provider Friend, Dr. Dockery Attending Provider Dr. William Romeo Attending Provider Lenin Chaudhary MD Primary Care Provider Jet LINDO, Lenin Primary Care Provider Lenin Chaudhary MD Primary Care Provider DANILO CODY Consulting Unavailable ALPHONSE APONTE Attending Unavailable KOBE CHARLES Admitting Unavailable LENIN CHAUDHARY Primary Care Unavailable JET LINDO, LENIN Attending Unavailnilda CHAUDHARY MD, JUAN Primary Care Unavailnilda CHAUDHARY MD, JUAN Primary Care Unavailnilda PEREZ MD, DR HOLLAND Attending Unavailabl e Podlogar CHEMICAL RESEARCH ENGINEER.July PIEDRA Unavailable RUPERTO SINGH Attending Unavailable RUPERTO SINGH Primary Care Unavailable RUPERTO SINGH Admitting Unavailable Jairo LINDO, Dhara Jesus Unavailable Knoble CHEMICAL RESEARCH ENGINEER.POLISHING MACHINE TENDER, Diane Unavailable [place]le CHEMICAL RESEARCH ENGINEER.POLISHING MACHINE TENDER, Diane Unavailable [place]le CHEMICAL RESEARCH ENGINEER.POLISHING MACHINE TENDER, Diane Unavailable Jet LINDO, Dr. Rockwell Primary Care Provider Jet LINDO, Dr. Rockwell Referring Provider Marianne TANG, Dr. Dockery Attending Provider Marianne TANG, Dr. Dockery Other Provider Edgardo LINDO, Dr. Cabello Attending Provider Marianne TANG, Dr. Dockery Referring Provider Farida LINDO, Dr. Candelario Attending Provider Farida LINDO, Dr. Candelario Referring Provider Knoble CHEMICAL RESEARCH ENGINEER.POLISHING MACHINE TENDER, Diane Unavailable [place] CHEMICAL RESEARCH ENGINEER.POLISHING MACHINE TENDER, Diane Unavailable Jet LINDO, Dr. Rockwell Primary Care Provider Jenni [facility] [place] Unavailable [phone] China RN, Rebecca Unavailable LENIN CHAUDHARY Primary Care Unavailab le JET, JUANER B Referring Unavailab le JET, CHRISTOPHER B Primary Care Unavailab le JET, CHRISTOPHLISANDRO B Referring Unavailab le JET, CHRISTOPHER B Primary Care Unavailab le BURSFELIX, CHRISTOPHER B Referring Unavailab le SULTANALEY, CHRISTOPHER B Primary Care Unavailab MELANI David Referring Unavailable TALAT VILLAREAL Attending Unavailable KHANG MAR Attending Unavailable KAILASH DIAZ Admitting Unavailable SARANYA VICENTE Consulting Unavailable HERSON MONCADA Referring Unavailable LENIN CHAUDHARY Primary Care Unavailab le JET, CHRISTOPHER B Primary Care Unavailab le JET, MATTHEWOPHER B Referring Unavailab steven CHAUDHARY MD, LENIN Primary Care Unavaila ble JOSEPH, TADEO HENRY Attending Glory CHAUDHARY MD, CHRISTOPHER Primary Care Unavaila ROSIE Hernandez Attending Unavailable JET LINDO, LENIN Attending Unavaila lorena CHAUDHARY MD, BOSTIC Primary Care Unavaila lorena CHAUDHARY MD, JUAN Attending Unavaila lorena CHAUDAHRY MD, BOSTIC Primary Care Unavaila lorena CHAUDHARY MD, BOSTIC Primary Care Unavaila ble HERSON MONCADA DO Attending Unavailable JET LINDO, BOSTIC Primary Care Unavaila lorena SCOTT MD, CAROLYN Barney Attending Unavail able JET LINDO, BOSTIC Primary Care Unavaila lorena DIAZ DO, CAMI Attending Unavailable JET LINDO, BOSTIC Primary Care Unavaila lorena GILL MD, DHARA Attending Unavailable China RN, Rebecca Unavailable LENIN CHAUDHARY Primary Care Unavailab LENIN Allen Primary Care Unavailab DHARA Hernandez Admitting Unavailable DHARA GILL Attending Unavailable DHARA GILL Referring Unavailable LENIN CHAUDHARY Primary Care Unavailab CAROLINE Martinez Attending Unavailable LENIN CHAUDHARY Primary Care Unavailab LENIN Allen Primary Care Unavailab DEREK Gibbs Attending Unavailable LENIN CHAUDHARY Primary Care Unavailab SOLE Topete Attending Unavailable LENIN CHAUDHARY Referring Unavailab CAROLINE Martinez Attending Unavailable LENIN CHAUDHARY Primary Care Unavailab DHARA Hernandez Referring Unavailable LENIN CHAUDHARY Primary Care Unavailab CAROLINE Martinez Attending Unavailable LENIN CHAUDHARY Primary Care Unavailab DHARA Hernandez Referring Unavailable KODAK IQBAL Attending Unavailable LENIN CHAUDHARY Primary Care Unavailab LENIN Allen Primary Care Unavailab NICKIE Rocha Attending Unavailable LENIN CHAUDHARY Primary Care Unavailab JOSH Armenta Consulting Unavailable KODAK IQBAL Admitting Unavailable KODAK IQBAL Attending Unavailable KODAK IQBAL Referring Unavailable LENIN CHAUDHARY Primary Care Unavailab CAROLINE Martinez Referring Unavailable LENIN CHAUDHARY Primary Care Unavailab SHENG Martines Attending Unavailabl LENIN Denise Primary Care Unavailab LENIN Allen Primary Care Unavailab KOBE Bowen Attending Unavailable LENIN CHAUDHARY Primary Care Unavailab SOLE Topete Referring Unavailable MAREN RUIZ Referring Unavailable LENIN CHAUDHARY Primary Care Unavailab le MAREN RUIZ Referring Unavailable LENIN CHAUDHARY Primary Care Unavailab le LENIN CHAUDHARY Primary Care Unavailab LENIN Allen Attending Unavailab LENIN Allen Referring Unavailab le LENIN CHAUDHARY Primary Care Unavailab le DARION, CAROLINE Referring Unavailable LENIN CHAUDHARY Primary Care Unavailab le LENIN CHAUDHARY Primary Care Unavailab le SELF Referring Unavailable DHARA GILL Attending Unavailable LENIN CHAUDHARY Referring Unavailab LENIN Allen Primary Care Unavailab le LENIN CHAUDHARY Attending Unavailab LENIN Allen Primary Care Unavailab le LENIN CHAUDHARY Primary Care Unavailab DHARA Hernandez Attending Unavailable MAREN RUIZ Referring Unavailable LENIN CHAUDHARY Primary Care Unavailab ANDREW Payan Attending Unavailable MELANI CURTIS Attending Unavailable LENIN CHAUDHARY Primary Care Unavailab SHENG Martines Attending Unavailabl e LENIN CHAUDHARY Primary Care Unavailab LENIN Allen Referring Unavailab MOON Wynn Attending Unavailable LENIN CHAUDHARY Primary Care Unavailab le LENIN CHAUDHARY Primary Care Unavailab DHARA Hernandez Referring Unavailable DHARA GILL Attending Unavailable LENIN CHAUDHARY Primary Care Unavailab le FYOCK, CAROLINE Referring Unavailable LENIN CHAUDHARY Primary Care Unavailab le JOSÉOCK, CAROLINE Referring Unavailable LENIN CHAUDHARY Primary Care Unavailab le FYOCK, CAROLINE Referring Unavailable JULY RICHARDS Attending Unavailable LENIN CHAUDHARY Primary Care Unavailab DHARA Hernandez Referring Unavailable LENIN CHAUDHARY Primary Care Unavailab le LENIN CHAUDHARY Primary Care Unavailab DHARA Hernandez Referring Unavailable CAROLINE ORLANDO Referring Unavailable LENIN CHAUDHARY Primary Care Unavailab LENIN Allen Primary Care Unavailab FRANCISCA Jarquin Referring Unavailable LENIN CHAUDHARY Primary Care Unavailab LENIN Allen Attending Unavailab LENIN Allen Primary Care Unavailab LENIN Allen Attending Unavailab LENIN Allen Primary Care Unavailab LENIN Allen Referring Unavailab le LENIN CHAUDHARY Primary Care Unavailab MELANI David Attending Unavailable SELF Referring Unavailable LENIN CHAUDHARY Primary Care Unavailab KOBE Bowen Attending Unavailable LENIN CHAUDHARY Primary Care Unavailab KOBE Bowen Referring Unavailable LENIN CHAUDHARY Attending Unavailab LENIN Allen Primary Care Unavailab Cami Trotter Consulting Unavailable FriendCami Attending Unavailable Jet, Moiz Primary Care Unavailable Moiz Chaudhary Referring Unavailable FriendCami Referring Unavailable Amalia Reynoso Attending Unavailable Jet, Moiz Primary Care Unavailable Jet, Moiz Primary Care Unavailable Kodak Iqbal Referring Unavailable Lalilia, Kodak Attending Unavailable Jet, Moiz Primary Care Unavailable Aurelio Sweeney Attending Unavailable Lahorra, Kodak Attending Unavailable Jet, Moiz Primary Care Unavailable Lahorra, Kodak Referring Unavailable Jet, Moiz Primary Care Unavailable Lalilia, Kodak Attending Unavailable LaholeonoraaKodak Referring Unavailable Lahorra, Kodak Attending Unavailable Sultanaley, Moiz Primary Care Unavailable Lahorra, Kodak Referring Unavailable Jet, Moiz Primary Care Unavailable Kodak Iqbal Referring Unavailable Lalilia, Kodak Attending Unavailable Cami Diaz Attending Unavailable Jet, Moiz Primary Care Unavailable Moiz Chaudhary Referring Unavailable Lahorra, Kodak Attending Unavailable Sultanaley, Moiz Primary Care Unavailable Lahorra, Kodak Referring Unavailable Allergies Allergy Classification Reported Allergen(s) Allergy Type Date of Onset Reaction(s) Facility (2 sources) tamsulosin Drug Allergy 10-23-2023 Other: See Comments [facility] Work Phone: Medications Current Medications Medication Drug Class(es) Dates Sig (Normalized) Sig (Original) acetaminophen 500 mg oral tablet (20 sources) Start: 04-07-2024 End: 05-07-2024 take 2 tablets by mouth every eight hours as needed acetaminophen (TYLENOL) 500 mg tablet Take 2 tablets by mouth every 8 hours as needed for pain. 04/07/2024 05/07/2024 Active Start: 03-27-2024 take 2 capsules by m outh every six hours as needed for pain Acetaminophen 500 mg capsule Active 1000 mg PO EVERY 6 HOURS as needed for pain March 27, 2024 1:00am Start: 03-10-2024 End: 04-07-2024 take 2 tablets by mouth four times daily acetaminophen (TYLENOL) 500 mg tablet Take 2 tablets by mouth four times daily. 03/24/2024 04/07/2024 Discontinued Start: 02-07-2024 End: 02-07-2024 take 2 tablets by mouth once acetaminophen (TYLENOL) 5 00 mg tablet Take 2 tablets by mouth one time only for 1 dose. Take morning of surgery 2 tablet 02/07/2024 02/07/2024 Active Start: 06-12-2023 End: 06-18-2023 take 1 tablet by mouth every six hours as needed for pain and fever acetaminophen (Tylenol) tablet 650 mg take 1 tablet by ibeth th every eight hours as needed acetaminophen (TYLENOL EXTRA STRENGTH) 500 mg tablet Take 500 mg by mouth every 8 hours as needed. Suspended take 325 mg rectal r oute every four hours as needed for pain acetaminophen (Tylenol) 325 MG suppository Insert 325 mg into the rectum every 4 hours as needed for mild pain (1-3). 0 Active Administered Medications Medication Order MAR Action Action Date Dose Rate Site tuberculin skin test, unspecified formulation Given 06/09/2023 (1 source) Administered Medications Medication Order MAR Action Action Date Dose Rate Site tuberculin skin test, unspecified formulation Given 06/09/2023 amoxicillin 875 mg / clavulanate 125 mg oral tablet (8 sources) Penicillin-class Antibacterial Start: 04-04-19 End: 04-14-19 take 1 tablet by mouth every twelve hours amoxicillin-clavulan ate potassium (AUGMENTIN) 875-125 mg per tablet Indications: acute bacterial sinusitis , acute bacterial otitis media , chronic bronchitis with bacterial exacerbation Take 1 tablet by mouth every 12 hours for 10 days. 20 tablet 04/04/2024 04/14/2024 Active ascorbic acid 500 mg oral tablet (20 sources) Vitamin C Start: 03-11-19 take 1 tablet by mouth once daily ascorbic acid, vitamin C, (VITAMIN C) 500 mg tablet Take 1 tablet by mouth once daily. 03/11/2024 Active take 1 tablet by mouth once shellie y ascorbic acid (Vitamin C) 500 MG tablet Take 500 mg by mouth daily. 0 Active ascorbic acid 113 mg / beta carotene 7160 mg / cuprous oxide 0.4 mg / dl-alpha tocopheryl acetate 100 unt / zinc oxide 17.4 mg oral tablet (4 sources) Vitamin C Start: 03-27-2024 Vitamins A,C,T-Lzzh-Ouwear (Eye Multivitamin) 2,148 mcg-113 mg-45 mg-17.4mg tablet Active 2 {tbl} PO DAILY March 27, 2024 1:00am aspirin 81 mg delayed release oral tablet (20 sources) Platelet Aggregation Inhibitor, Nonsteroidal Anti-inflammatory Drug Start: 03-27-2024 take 2 capsules by mouth once daily Aspirin 81 mg capsule Active 162 mg PO DAILY March 27, 2024 1:00am Start: 03-11-2024 End: 04-10-2025 take 2 tablets by mouth once daily, then take 1 tablet by mouth once daily aspirin, enteric coated (ASPIRIN, ENTERIC COATED) 81 mg EC tablet Take 2 tablets by mouth once daily for 30 days, THEN 1 tablet once daily. 420 tablet 03/11/2024 04/07/2024 Discontinued Start: 12-24-2023 End: 04-07-2025 take 1 tablet by mouth once daily aspirin, enteric coated (ASPIRIN, ENTERIC COATED) 81 mg EC tablet Take 1 tablet by mouth once daily. 360 tablet 04/07/2024 04/07/2025 Active atorvastatin 80 mg oral tablet (20 sources) HMG-CoA Reductase Inhibitor Start: 11-03-2024 End: 05-02-2025 take 1 tablet by mouth once daily atorvastatin (LIPITOR) 80 mg tablet Indications: Mixed hyperlipidemia , Coronary artery disease involving [place]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[place] heart without angina pectoris Take 1 tablet by mouth once daily. 90 tablet 1 11/03/2024 05/02/2025 Active Start: 12-21-2023 End: 02-09-2025 take 1 tablet by mouth once daily atorvastatin (LIPITOR) 40 mg tablet Indications: Mixed hyperlipidemia , Coronary artery disease involving [place]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[place] heart without angina pectoris Take 1 tablet by mouth once daily. 90 tablet 1 08/13/2024 11/03/2024 Discontinued Start: 07-18-2023 End: 03-27-2024 take 1 tablet by mouth once daily Atorvastatin 20 mg tablet Discontinued 20 mg PO DAILY October 12, 2023 12:00am March 27, 2024 12:21pm Start: 06-13-2023 End: 06-18-2023 atorvastatin (Lipitor) table t 20 mg Start: 11-28-2022 End: 07-13-2023 take 1 tablet by mouth once daily atorvastatin (LIPITOR) 20 mg tablet Indications: Mixed hyperlipidemia Take 1 tablet by mouth once daily. 90 tablet 1 11/28/2022 07/13/2023 Discontinued Start: 07-25-2021 End: 07-03-2022 take 1 tablet by mouth once daily atorvastatin (LIPITOR) 20 mg tablet Indications: Mixed hyperlipidemia Take 1 tablet by mouth once daily. 90 tablet 1 07/04/2022 Active Start: 02-16-2021 End: 05-03-2021 take 1 tablet by mouth once daily atorvastatin (LIPITOR) 20 mg tablet Indications: Mixed hyperlipidemia Take 1 tablet by mouth once daily. 90 tablet 1 05/03/2021 Active Start: 03-17-2020 End: 10-12-2023 take 2 tablets by mouth once daily Atorvastatin 10 mg tablet Discontinued 20 mg PO DAILY March 17, 2020 1:57pm October 12, 2023 9:28am Start: 03-17-2020 take 20 mg by mouth once daily Atorvastatin Active 20 MG PO DAILY March 17, 2020 1:57pm Start: 03-17-2020 End: 03-17-2020 take 1 tablet by mouth once daily Atorvastatin 10 mg tablet Discontinued 10 mg PO DAILY March 17, 2020 1:00am March 17, 2020 1:57pm Start: 12-18-2019 End: 08-19-2020 take 1 tablet by mouth once daily atorvastatin (LIPITOR) 20 mg tablet Take 1 tablet by mouth once daily. 90 tablet 1 12/18/2019 08/19/2020 Discontinued Comment on above: Take 1 tablet by ibeth th once daily. Take 1 tablet by ibeth th daily at bedtime. For cholesterol. bisacodyl 5 mg delayed release oral tablet (4 sources) Stimulant Laxative take 2 tablets by mouth every twenty-four hours as needed for constipation bisacodyl (Dulcolax) 5 MG EC tablet Take 10 mg by mouth Daily as needed for constipation. Do not crush, chew, or split. 0 Active brimonidine tartrate 2 mg/ml ophthalmic solution (20 sources) alpha-Adrenergic Agonist take 1 drop(s) into the eye(s) twice daily brimonidine (ALPHAGAN) 0.2 % ophthalmic solution Use 1 drop in both eyes two times a day. Active chlorhexidine gluconate 1.2 mg/ml mouthwash (4 sources) Start: End: Chlorhexidine Gluconate (PERIDEX) 0.12 % solution Use 15 mL as instructed two times a day for 5 days. Rinse around mouth for 30 seconds then expectorate twice daily starting 5 days prior to surgery and morning of surgery. 165 mL 02/07/2024 02/12/2024 Active cholecalciferol 0.025 mg oral tablet (20 sources) Vitamin D Start: End: take 1 tablet by mouth once daily cholecalciferol (VITAMIN D3) 1,000 unit tab tablet Take 1 tablet by mouth once daily. Taking 25 MCG daily 90 tablet 1 10/17/2024 04/15/2025 Active Start: 03-27-2024 take 1 capsule by [facility] once daily Cholecalciferol (Vitamin D3) (Vitamin D3) 25 mcg (1,000 unit) capsule Active 25 ug PO DAILY March 27, 2024 1:00am Start: 11-13-2023 End: 05-11-2024 take 1 capsule by mouth once daily Cholecalciferol, Vitamin D3, 25 mcg (1,000 unit) cap Take 1 capsule by mouth once daily. 90 capsule 1 11/13/2023 05/11/2024 Suspended Start: 12-02-2015 End: 10-13-2020 take 1 capsule by mouth once daily Cholecalciferol, Vitamin D3, 5,000 unit cap Take 1 capsule by mouth once daily. 0 12/02/2015 10/13/2020 Discontinued End: 10-17-2024 cholecalciferol (VITAMIN D3) 1,000 unit tab tablet Take by mouth once daily. Taking 25 MCG daily 10/17/2024 Discontinued cholecalciferol (VITAMIN D3) 1,000 unit tab tablet Take by mouth once daily. Active docusate sodium 100 mg oral capsule (20 sources) Start: 10-11-2023 End: 04-08-2024 take 1 capsule by mouth every twelve hours as needed docusate sodium (COLACE) 100 mg capsule Take 1 capsule by mouth two times a day as needed for constipation. 90 capsule 1 04/03/2024 Active Start: 10-27-2020 End: 07-30-2023 take 1 capsule by mouth every twelve hours as needed docusate sodium (COLACE) 100 mg capsule Take 1 capsule by mouth twice daily as needed for constipation. 60 capsule 5 10/27/2020 07/30/2023 Discontinued Start: 06-30-2020 End: 07-01-2020 take 1 capsule by mouth every twelve hours as needed docusate sodium (COLACE) 100 mg capsule Take 1 capsule by mouth twice daily as needed for Constipation. 60 capsule 1 06/30/2020 07/01/2020 Discontinued Comment on above: Take 1 capsule by [facility] twice daily as needed for constipation. docusate sodium 50 mg / sennosides, penitentiary 8.6 mg oral tablet (20 sources) Start: 03-27-2024 Sennosides-Docusate Sodium (Senna Plus) 8.6-50 mg tablet Active 1 NMA PO AT BEDTIME March 27, 2024 1:00am Start: 10-19-2023 End: 09-11-2024 take 2 tablets by mouth once daily as needed for constipation senna-docusate (SENNA-S) 8.6-50 mg per tablet Take 2 tablets by mouth once daily as needed for constipation for up to 14 days. 28 tablet 03/14/2024 03/28/2024 Active Start: 06-16-2023 End: 06-18-2023 senna-docusate sodium (Senok ot-S) 8.6-50 MG tablet 2 tablet donepezil hydrochloride 10 mg oral tablet (20 sources) Start: 07-30-2023 End: 02-09-2025 take 1 tablet by mouth once daily at breakfast donepezil (ARICEPT) 10 mg tablet Indications: Alzheimer's dementia without behavioral disturbance, psychotic disturbance, mood disturbance, or anxiety, unspecified dementia severity, unspecified timing of dementia onset (HCC) Take 1 tablet by mouth daily with breakfast. 90 tablet 1 08/13/2024 02/09/2025 Active Start: 06-04-2023 take 2 tablets by mo [facility] once daily Donepezil 5 mg tablet Active 10 mg PO DAILY June 04, 2023 12:00am Start: 05-07-2023 End: 10-09-2023 take 1 tablet by mouth once daily at breakfast donepezil (ARICEPT) 5 mg tablet Indications: Major neurocognitive disorder (HCC) take one tablet by mouth every day with breakfast 30 tablet 3 08/07/2023 08/08/2023 Discontinued (Clinical Decision) Comment on above: Take 1 tablet by ibeth daily with breakfast. ferrous sulfate 325 mg oral tablet (20 sources) Start: 04-07-2024 End: 05-05-2024 take 1 tablet by mouth three times daily Ferrous Sulfate (Ferosul) 325 mg (65 mg iron) tablet Active 325 mg PO THREE TIMES A DAY 180 2 May 05, 2024 2:30pm Start: 03-24-2024 End: 04-24-2024 take 1 tablet by mouth once daily ferrous sulfate 325 mg (65 mg iron) tablet Take 1 tablet by mouth once daily. 03/24/2024 04/24/2024 Discontinued (Course of therapy completed) Start: 09-11-2023 End: 09-28-2023 take 1 tablet by mouth every twelve hours Ferrous Sulfate (Ferosul) 325 mg (65 mg iron) tablet Discontinued 325 mg PO Q12H 60 30 3 September 11, 2023 11:22am September 28, 2023 9:21am Start: 06-20-2023 End: 10-16-2023 ferrous sulfate 325 mg (65 m g iron) tablet Indications: Gastrointestinal hemorrhage, unspecified gastrointestinal hemorrhage type , Acute gastric ulcer with hemorrhage , Anemia, unspecified type Take 1 tablet by mouth every 48 hours. 45 tablet 07/18/2023 10/16/2023 Active Start: 06-09-2023 End: 04-07-2024 take 1 tablet by mouth once daily ferrous sulfate 325 mg (65 mg iron) tablet Take 325 mg by mouth once daily. 06/09/2023 Active Start: 06-09-2023 End: 03-27-2024 take 1 tablet by mouth three times daily Ferrous Sulfate (Ferosul) 325 mg (65 mg iron) tablet Discontinued 325 mg PO THREE TIMES A DAY 90 3 January 10, 2024 10:14am March 27, 2024 12:27pm Start: 06-09-2023 take 1 tablet by ibeth th every twenty-four hours ferrous sulfate 325 mg (65 mg iron) tablet Take 325 mg by mouth every 24 hours. 06/09/2023 Suspended Start: 06-08-2023 End: 07-20-2023 Ferrous Sulfate (Ferosul) 32 5 mg (65 mg iron) Tablet Discontinued 325 mg PO EVERY 48 HOURS 0 0 June 08, 2023 12:00am July 20, 2023 12:01pm take 1 tablet by ibeth th every other day ferrous sulfate 325 (65 Fe) MG tablet Take 325 mg by mouth every other day. 0 Active fluticasone propionate 0.05 mg/actuat metered dose nasal spray (20 sources) Corticosteroid Start: 09-28-2023 Fluticasone Pr opionate 50 mcg/actuation spray,suspension Active 2 NMA INTRANASAL DAILY NEEDED as needed for nasal congestion September 28, 2023 12:00am Start: 07-18-2023 End: 02-07-2024 fluticasone (FLONASE) 50 mcg/actuation nasal spray Use 2 Sprays in each nostril as needed. Rinse mouth after use. 1 Each 2 07/18/2023 02/07/2024 Discontinued (Course of therapy completed) Start: 04-28-2022 End: 07-13-2023 fluticasone (FLONASE) 50 mcg/actuation nasal spray Use 2 Sprays in each nostril as needed. Rinse mouth after use. 1 Each 2 04/28/2022 07/13/2023 Discontinued Start: 05-03-2021 End: 04-28-2022 take 2 spray(s) by mouth once daily fluticasone (FLONASE) 50 mcg/actuation nasal spray Use 2 Sprays in each nostril once daily. Rinse mouth after use. 18 g 1 05/03/2021 04/28/2022 Discontinued Start: 06-09-2019 End: 05-03-2021 take 2 spray(s) by mouth once daily fluticasone (FLONASE) 50 mcg/actuation nasal spray Use 2 Sprays in each nostril once daily. Rinse mouth after use. 1 Each 5 04/26/2021 05/03/2021 Discontinued Comment on above: Use 2 Sprays in each nostril once daily. Rinse mouth after use. Use 2 Sprays in each nostril as needed. Rinse mouth after use. folic acid 0.8 mg oral capsule (20 sources) Start: 03-27-2024 Folic Acid 0.8 mg capsule Active 800 ug PO DAILY March 27, 2024 1:00am Start: 03-11-2024 take 1 tablet by ibeth th once daily folic acid 1 mg tablet Take 1 tablet by mouth once daily. 03/11/2024 Active furosemide 20 mg oral tablet (20 sources) Loop Diuretic Start: 09-01-2024 End: 2024 take 1 tablet by mouth once daily as needed, then take 2-3 tablets by mouth every twenty-four hours as needed furosemide (LASIX) 20 mg tablet Indications: Chronic diastolic congestive heart failure (HCC) Take 1 tablet by mouth once daily as needed (weight gain 2-3 lbs in 24 hours, new leg swelling, or shortness of breath). 30 tablet 2 09/16/2024 2024 Active Start: 08-29-2024 End: 02-25-2025 take 1 tablet by mouth twice daily furosemide (LASIX) 20 mg tablet Indications: Chronic diastolic congestive heart failure (HCC) Take 1 tablet by mouth two times a day. 180 tablet 1 08/29/2024 09/01/2024 Discontinued Start: 04-18-2024 End: 05-18-2024 take 1 tablet by mouth once daily furosemide (LASIX) 40 mg tablet Indications: Chronic diastolic congestive heart failure (HCC) Take 1 tablet by mouth once daily. 30 tablet 04/18/2024 04/24/2024 Discontinued Start: 04-15-2024 End: 04-15-2024 furosemide 40 mg injection ( LASIX) Start: 04-15-2024 End: 04-15-2024 40 mg, INTRAVENOUS, ONCE, 1 dose, On Sun04/15/24 at 0930 Start: 03-24-2024 End: 08-29-2024 take 1 tablet by mouth twice daily furosemide (LASIX) 40 mg tablet Indications: Chronic diastolic congestive heart failure (HCC) Take 1 tablet by mouth two times a day. 60 tablet 2 04/24/2024 08/29/2024 Discontinued Start: 03-14-2024 End: 03-24-2024 take 1 tablet by mouth twice daily furosemide (LASIX) 20 mg tablet Take 1 tablet by mouth two times a day for 5 days. 10 tablet 03/14/2024 03/24/2024 Discontinued (Course of therapy completed) lactobacillus combination no .4 (PROBIOTIC) 3 billion cell cap (20 sources) Start: 04-04-2024 End: 09-11-2025 lactobacillus combination no .4 (PROBIOTIC) 3 billion cell cap Indications: Delayed surgical wound healing, subsequent encounter , S/P CABG (coronary artery bypass graft) Take 1 capsule by mouth once daily. 30 capsule 04/04/2024 09/11/2025 Active Start: 04-04-2024 lactobacillus combination no.4 (PROBIOTIC) 3 billion cell cap Indications: Delayed surgical wound healing, subsequent encounter , S/P CABG (coronary artery bypass graft) Take 1 capsule by mouth once daily. 30 capsule 04/04/2024 Suspended Start: 04-04-2024 lactobacillus combination no.4 (PROBIOTIC) 3 billion cell cap Indications: Delayed surgical wound healing, subsequent encounter , S/P CABG (coronary artery bypass graft) Take 1 capsule by mouth once daily. 30 capsule 04/04/2024 Active Start: 04-04-2024 End: 05-04-2024 lactobacillus combination no .4 (PROBIOTIC) 3 billion cell cap Indications: Delayed surgical wound healing, subsequent encounter , S/P CABG (coronary artery bypass graft) Take 1 capsule by mouth once daily. 30 capsule 04/04/2024 05/04/2024 Active latanoprostene bunod 0.24 mg/ml ophthalmic solution (4 sources) Latanoprostene B unod (Vyzulta) 0.024 % solution Administer into affected eye(s). 0 Active Magnesium (4 sources) Start: 03-27-2024 take 2 tablets by mouth once daily Magnesium 200 mg tablet Active 400 mg PO DAILY March 27, 2024 1:00am magnesium hydroxide 80 mg/ml oral suspension (4 sources) magnesium hydrox azucena (Milk of Magnesia) 400 MG/5ML suspension Take by mouth Nightly. 0 Active magnesium oxide 400 mg oral tablet (20 sources) Start: 03-11-2024 take 1 tablet by mouth once daily magnesium oxide (MAG-OX) 400 mg (241.3 mg magnesium) tablet Take 1 tablet by mouth once daily. 03/11/2024 Active melatonin 3 mg oral capsule (20 sources) Start: 04-01-2024 End: 09-11-2025 take 1 capsule by mouth every twenty-four hours as needed melatonin 3 mg capsules Take 1 capsule by mouth at bedtime as needed for insomnia. 30 capsule 2 04/01/2024 09/11/2025 Active Start: 06-08-2023 End: 09-07-2023 take 1 tablet by mouth at bedtime as needed Melatonin 3 mg Tablet Discontinued 3 mg PO AT BEDTIME as needed for Insomnia 0 0 June 08, 2023 12:00am September 07, 2023 10:43am take 1 tablet by ibeth th once daily as needed melatonin 5 MG tablet Take 5 mg by mouth Nightly as needed. 0 Active memantine hydrochloride 5 mg oral tablet (20 sources) I-assrkr-U-aspartate Receptor Antagonist Start: 07-11-2024 End: 01-07-2025 take 1 tablet by mouth once daily memantine (NAMENDA) 5 mg tablet Take 1 tablet by mouth once daily. 90 tablet 1 07/11/2024 01/07/2025 Active Start: 06-24-2024 take 1 tablet by ibeth th once daily memantine (NAMENDA) 5 mg tablet Take 1 tablet by mouth once daily. 30 tablet 06/24/2024 Active mupirocin 0.02 mg/mg topical ointment (4 sources) RNA Synthetase Inhibitor Antibacterial Start: 02-07-2024 End: 02-12-2024 mupirocin (BACTROBAN) 2 % ointment Apply to affected area two times a day for 5 days. Please apply small amount to each nostril twice daily using Q-tip, starting 5 days prior to surgery and morning of surgery. 1 g 02/07/2024 02/12/2024 Active kg-oju-NV-vit D-czdngk-fmrbslw (PRESERVISION AREDS 2 PLUS MV) 200 mcg-15 mcg- 5 mg-1 mg cap (20 sources) Start: 03-24-2024 End: 04-23-2024 take 1 tablet by mouth twice daily og-gvb-CJ-vit X-nqogil-xggxuik (PRESERVISION AREDS 2 PLUS MV) 200 mcg-15 mcg- 5 mg-1 mg cap Indications: S/P CABG (coronary artery bypass graft) Take 1 tablet by mouth two times a day. 03/24/2024 04/23/2024 Active pantoprazole 40 mg delayed release oral tablet (20 sources) Proton Pump Inhibitor Start: 07-20-2023 End: 09-11-2023 take 1 tablet by mouth once daily Pantoprazole (Protonix) 40 mg tablet,delayed release (DR/EC) Active 40 mg PO DAILY 30 September 11, 2023 11:21am Start: 06-08-2023 End: 09-16-2023 take 1 tablet by mouth twice daily Pantoprazole (Protonix) 40 mg tablet,delayed release (DR/EC) Discontinued 40 mg PO TWICE A DAY June 08, 2023 12:00am July 20, 2023 8:59am polyethylene glycol 3350 16077 mg powder for oral solution (20 sources) Osmotic Laxative Start: 03-11-2024 polyethylene glycol 3350 17 gram packet Take 1 Packet by mouth once daily. Dissolve dose in 4 - 8 ounces of liquid and take as directed. 03/11/2024 Active Start: 06-12-2023 End: 06-18-2023 take 17 g by mouth every twenty-four hours as needed for constipation polyethylene glycol (PEG) 3350 (Miralax) packet 17 g polyethylene glycol 3350 650834 mg / potassium chloride 2970 mg / sodium bicarbonate 6740 mg / sodium chloride 5860 mg / sodium sulfate 94881 mg powder for oral solution (1 source) Osmotic Laxative Start: 08-26-2024 End: 08-26-2024 peg 3350-Electrolytes (GOLYTELY) 236-22.74-6.74 -5.86 gram suspension Take 4,000 mL by mouth one time only for 1 dose. 1 each 08/26/2024 08/26/2024 Active microencapsulated potassium chloride 20 meq extended release oral tablet (20 sources) Start: 04-24-2024 End: 07-23-2024 take 1 tablet by mouth twice daily potassium chloride ER (KLOR-CON) 20 mEq tablet Take 1 tablet by mouth two times a day. 60 tablet 2 04/24/2024 07/23/2024 Active Start: 04-07-2024 End: 04-21-2024 take 1 tablet by mouth twice daily potassium chloride ER (KLOR-CON) 20 mEq tablet Take 1 tablet by mouth two times a day for 14 days. 28 tablet 04/07/2024 04/21/2024 Active Start: 03-27-2024 take 20 mEq by mouth once shellie y Potassium Chloride (Klor-Con) 20 mEq packet Active 20 meq PO DAILY March 27, 2024 1:00am Start: 03-24-2024 End: 05-03-2024 take 1 tablet by mouth once daily, then take 0.5 tablet by mouth once daily potassium chloride ER (KLOR-CON) 20 mEq tablet Take 1 tablet by mouth once daily for 10 days, THEN 0.5 tablets once daily. 25 tablet 03/24/2024 04/07/2024 Discontinued (Course of therapy completed) Start: 03-14-2024 End: 03-19-2024 take 1 tablet by mouth once daily potassium chloride (K-TAB) 10 mEq tablet Take 1 tablet by mouth once daily for 5 days. 5 tablet 03/14/2024 03/19/2024 Active tamsulosin hydrochloride 0.4 mg oral capsule (20 sources) alpha-Adrenergic Darcy Start: 03-10-2024 take 1 capsule by mouth twice daily tamsulosin (FLOMAX) 0.4 mg Take 1 capsule by mouth two times a day. 03/10/2024 Active Start: 02-11-2024 take 1 capsule by mo ut twice daily, then take 1 capsule by mouth in the morning, then take 1 capsule by mouth at bedtime tamsulosin (FLOMAX) 0.4 mg Indications: Benign prostatic hyperplasia with urinary frequency , Benign prostatic hyperplasia with nocturia Take 1 capsule by mouth two times a day. (Take one capsule in the morning and one at bedtime) 02/11/2024 Suspended Start: 02-06-2024 End: 08-04-2024 take 2 capsules by mouth once daily at bedtime tamsulosin (FLOMAX) 0.4 mg Indications: Benign prostatic hyperplasia with nocturia Take 2 capsules by mouth daily at bedtime. 180 capsule 1 02/06/2024 02/11/2024 Discontinued (Adjust Sig - Block E-Cancel) Start: 11-05-2023 End: 02-06-2024 take 1 capsule by mouth once daily at bedtime tamsulosin (FLOMAX) 0.4 mg Indications: Benign prostatic hyperplasia with urinary frequency Take 1 capsule by mouth daily at bedtime. 30 capsule 2 11/05/2023 02/06/2024 Discontinued Start: 06-08-2023 End: 09-28-2023 take 1 capsule by mouth once daily Tamsulosin 0.4 mg Capsule Discontinued 0.4 mg PO DAILY@1730 0 0 June 08, 2023 12:00am September 28, 2023 9:19am vit C/E/Zn/coppr/lutein/zeax an (PRESERVISION AREDS-2 ORAL) (20 sources) take 1 capsule by mouth twice daily vit C/E/Zn/coppr/lutein/zeaxan (PRESERVISION AREDS-2 ORAL) Take 1 capsule by mouth two times a day. Suspended take 1 capsule by [facility] twice daily vit C/E/Zn/coppr/lutein/zeaxan (PRESERVI HAMZAH AREDS-2 ORAL) Take 1 capsule by mouth two times a day. Active vit C/E/Zn/coppr /lutein/zeaxan (PRESERVISION AREDS-2 ORAL) Take by mouth. Suspended vit C/E/Zn/coppr /lutein/zeaxan (PRESERVISION AREDS-2 ORAL) Take by mouth. Active vitamin b12 1 mg oral tablet (20 sources) Vitamin B12 Start: 06-14-2023 End: 10-15-2024 take 1 tablet by mouth once daily cyanocobalamin (VITAMIN B-12) 1,000 mcg tab Take 1 tablet by mouth once daily. 30 tablet 2 10/15/2024 Active Completed/Discontinued Medications Medication Drug Class(es) Dates Sig (Normalized) Sig (Original) 10 ml aminophylline 25 mg/ml injection (3 sources) Start: 09-08-2024 End: 09-15-2024 aminophylline 50-250 mg injection amLODIPine 2.5 mg oral tablet (20 sources) Dihydropyridine Calcium Channel Darcy Start: 11-28-2022 End: 01-14-2024 take 1 tablet by mouth once daily Amlodipine 2.5 mg tablet Discontinued 2.5 mg PO DAILY June 04, 2023 12:00am September 28, 2023 9:19am Comment on above: Take 1 tablet by ibeth th once daily. apixaban 5 mg oral tablet (20 sources) Factor Xa Inhibitor Start: 09-12-2024 End: 09-16-2024 take 1 tablet by mouth twice daily ELIQUIS 5 mg tab(s) Take 1 tablet by mouth two times a day. Patient should start on September 12, 2024. 09/12/2024 09/16/2024 Discontinued (Course of therapy completed) Start: 04-29-2024 take 1 tablet by ibeth th twice daily ELIQUIS 5 mg tab(s) Take 5 mg by mouth two times a day. 04/29/2024 Suspended Start: 03-10-2024 End: 04-24-2024 take 1 tablet by mouth twice daily ELIQUIS 5 mg tab(s) Take 5 mg by mouth two times a day. 04/29/2024 Active Start: 03-20-2020 End: 06-04-2023 take 1 tablet by mouth twice daily Apixaban 2.5 MG tablet Discontinued 2.5 mg PO TWICE A DAY 30 0 March 20, 2020 1:00am June 04, 2023 8:37pm biotin 10 mg oral capsule (20 sources) Start: 12-02-2015 End: 06-21-2022 Biotin 10,000 mcg cap Take by mouth once daily. 0 12/02/2015 06/21/2022 Discontinued Comment on above: Take by mouth once d aily. calcium chloride 0.0014 meq/ml / potassium chloride 0.004 meq/ml / sodium chloride 0.103 meq/ml / sodium lactate 0.028 meq/ml injectable solution (1 source) Start: 09-01-2024 End: 09-01-2024 take 30 mL intravenously every hour 30 mL/hr, INTRAVENOUS, CONTINUOUS, Starting on Sun09/01/24 at 0800, Until Sun09/01/24 at 0937, Preprocedure ceFAZolin (Ancef) 1,000 mg in sodium chloride 0.9 % 50 mL IVPB (2 sources) Start: 06-14-2023 End: 06-18-2023 take 1000 mg intravenously every eight hours ceFAZolin (Ancef) 1,000 mg in sodium chloride 0.9 % 50 mL IVPB cefTRIAXone (Rocephin) 1,000 mg in sodium chloride 0.9 % 50 mL IVPB Mini-Bag Plus (4 sources) Start: 06-13-2023 End: 06-14-2023 cefTRIAXone (Rocephin) 1,000 mg in sodium chloride 0.9 % 50 mL IVPB Mini-Bag Plus Start: 06-12-2023 End: 06-12-2023 cefTRIAXone (Rocephin) 1,000 mg in sodium chloride 0.9 % 50 mL IVPB Mini-Bag Plus cephalexin 500 mg oral capsule (10 sources) Cephalosporin Antibacterial Start: 06-25-2024 End: 06-25-2024 cephALEXin 500 mg cap(s) (KEFLEX) Start: 06-25-2024 End: 06-25-2024 take 1 dose by mouth once 500 mg, ORAL, ONCE, 1 dose, On Sun06/25/24 at 1100, Antimicrobial indication: Prophylaxis Start: 06-18-2023 End: 06-23-2023 take 2 capsules by mouth three times daily cephalexin (Keflex) 500 MG capsule Take 2 capsules (1,000 mg) by mouth 3 times daily for 5 days. 30 capsule 0 06/18/2023 06/23/2023 Active End: 06-22-2023 take 4 capsules by mouth three times daily cephALEXin (KEFLEX) 250 mg capsule Take 1,000 mg by mouth three times a day. 0 06/22/2023 Active COMPOUNDED PRESCRIPTION (2 sources) Start: 12-02-2015 End: 10-13-2020 COMPOUNDED PRESCRIPTION Omeg a Fish Oil 1600mg twice daily. 0 12/02/2015 10/13/2020 Discontinued Start: 12-02-2015 End: 10-13-2020 COMPOUNDED PRESCRIPTION Gluc osamine- Chrondroitin 1,500-1,200mg capsule twice daily. 0 12/02/2015 10/13/2020 Discontinued dexamethasone 6 mg oral tablet (6 sources) Corticosteroid Start: 03-20-2020 End: 03-28-2020 take 1 tablet by mouth once daily Dexamethasone 6 MG tablet Discontinued 6 mg PO DAILY 8 8 0 March 20, 2020 1:00am March 27, 2020 1:00am March 28, 2020 1:03am doxycycline hyclate 100 mg oral capsule (7 sources) Tetracycline-clas s Drug Start: 03-31-2024 End: 04-10-2024 take 1 capsule by mouth twice daily doxycycline hyclate (VIBRAMYCIN) 100 mg capsule Indications: Delayed surgical wound healing, subsequent encounter Take 1 capsule (100 mg) by mouth two times a day for 10 days. 20 capsule 03/31/2024 04/04/2024 Discontinued (Changing Therapy/Dosage Form) hydroCHLOROthiazide 12.5 mg oral capsule (20 sources) Thiazide Diuretic Start: 08-17-2023 End: 09-12-2023 take 1 capsule by mouth once daily hydroCHLOROthiazide 12.5 mg capsule Indications: Hypotension, unspecified hypotension type Take 1 capsule by mouth once daily. 180 capsule 1 08/17/2023 09/12/2023 Discontinued Start: 06-04-2023 End: 06-08-2023 take 25 mg by mouth once daily Hydrochlorothiazide Discontinued 25 MG PO DAILY June 04, 2023 12:00am June 08, 2023 12:00pm Start: 11-28-2022 End: 08-17-2023 take 2 capsules by mouth once daily Hydrochlorothiazide 12.5 mg capsule Discontinued 25 mg PO DAILY June 04, 2023 12:00am June 08, 2023 12:00pm Start: 12-13-2021 End: 10-06-2022 take 2 capsules by mouth once daily hydroCHLOROthiazide 12.5 mg capsule Indications: Essential hypertension Take 2 capsules by mouth once daily. 90 capsule 1 10/06/2022 Active Start: 07-25-2021 End: 12-13-2021 take 1 capsule by mouth once daily hydroCHLOROthiazide (HYDRODIURIL, ESIDRIX) 12.5 mg capsule Indications: Essential hypertension Take 1 capsule by mouth once daily. 90 capsule 1 07/25/2021 12/13/2021 Discontinued Start: 06-30-2020 End: 05-03-2021 take 1 capsule by mouth once daily hydroCHLOROthiazide 12.5 mg capsule Indications: Essential hypertension Take 1 capsule by mouth once daily. 90 capsule 1 05/03/2021 Active Start: 03-20-2020 End: 06-04-2023 Hydrochlorothiazide 25 MG ta blet Discontinued 12.5 mg PO DAILY 20 03March 20, 2020 1:00am June 04, 2023 8:37pm Start: 03-20-2020 End: 06-04-2023 take 12.5 mg by mouth once daily Hydrochlorothiazide Discontinued 12.5 MG PO DAILY March 20, 2020 1:00am June 04, 2023 8:37pm Comment on above: Take 1 capsule by mo uth once daily. Take 2 capsules by m outh once daily. iv contrast (will be provided with radiology test) (1 source) Start: 05-11-2024 End: 05-12-2024 iv contrast (will be provided with radiology test) Indications: Microscopic hematuria CT Urogram WO/W Inject, intravenously, once for 1 dose.No IV access, insert saline lock prior to the beginning of sedation, infusion, injection of imaging exam. Discontinue saline lock post exam. If Pt. has a central line or IVAD, may access for administration according to line specific nursing protocol. Once exam is complete flush line and de-access according to line specific nursing protocol in the CT contrast administration guidelines link. 1 Each 05/11/2024 05/12/2024 latanoprost 0.05 mg/ml ophthalmic solution (20 sources) Prostaglandin Analog Start: 06-16-2023 End: 06-18-2023 1 drop, Both Eyes, Nightly, First dose on 06/16/23 at 2100 take 1 drop(s) into the eye(s) once daily at bedtime latanoprost (XALATAN) 0.005 % ophthalmic solution 1 Drop daily at bedtime. Suspended lidocaine hydrochloride 0.02 mg/mg topical gel (20 sources) Antiarrhythmic, Amide Local Anesthetic Start: 06-25-2024 End: 06-25-2024 lidocaine urojet 2 % 11 mL topical gel (GLYDO) Start: 06-25-2024 End: 06-25-2024 11 mL, URETHRAL, ONCE (UP TO 30 DAYS AMB), 1 dose, On Sun06/25/24 at 1100, FOR EXTERNAL USE ONLY APPLY TO: PENIS Start: 04-08-2024 End: 05-08-2024 apply 1 dose transdermal route once daily, then apply 1 dose transdermal route every twelve hours lidocaine (LIDODERM) 5 % Indications: Acute post-operative pain Apply 1 Patch as directed once daily. to affected area. Remove patch after 12 hours. 30 Patch 2 04/08/2024 04/24/2024 Discontinued (Course of therapy completed) Start: 03-11-2024 End: 04-07-2024 lidocaine (SALONPAS) 4 % pat ch Apply 1 Patch as directed once daily. Cut patch in half lengthwise and place one half on each side of sternal incision 03/11/2024 04/07/2024 Discontinued (Course of therapy completed) lisinopril 40 mg oral tablet (20 sources) Angiotensin Converting Enzyme Inhibitor Start: 04-04-2022 End: 09-11-2024 take 1 tablet by mouth once daily lisinopril (ZESTRIL) 40 mg tablet Take 40 mg by mouth once daily. 03/22/2024 09/11/2024 Discontinued (Discontinued by another Health Care Provider) Start: 02-23-2022 End: 05-24-2022 take 1 tablet by mouth once daily lisinopril (ZESTRIL, PRINIVIL) 20 mg tablet Take 1 tablet by mouth once daily. 30 tablet 2 02/23/2022 04/04/2022 Discontinued Start: 01-25-2022 End: 02-23-2022 take 1 tablet by mouth once daily lisinopril (ZESTRIL, PRINIVIL) 10 mg tablet Indications: Hypertension, unspecified type Take 1 tablet by mouth once daily. 90 tablet 1 02/22/2022 02/23/2022 Discontinued Comment on above: Take 1 tablet by [facility] once daily. lutein 25 mg / zeaxanthin 5 mg oral capsule (20 sources) Start: 5 End: 3 lutein-zeaxanthin 25-5 mg cap Take by mouth. 0 05/26/2014 11/28/2022 Discontinued Comment on above: Take by mouth. meloxicam 7.5 mg oral tablet (20 sources) Nonsteroidal Anti-inflammatory Drug Start: 4 End: take 1 tablet by mouth once daily Meloxicam 7.5 mg tablet Discontinued 7.5 mg PO DAILY October 12, 2023 12:00am October 12, 2023 9:31am Start: 11-28-2022 End: 06-20-2023 take 1 tablet by mouth once daily meloxicam (MOBIC) 15 mg tablet Indications: It band syndrome, right Take 1 tablet by mouth once daily. 90 tablet 0 11/28/2022 06/20/2023 Discontinued (Other) Start: 11-29-2021 End: 07-03-2022 take 1 tablet by mouth once daily meloxicam (MOBIC) 15 mg tablet Indications: It band syndrome, right Take 1 tablet by mouth once daily. 90 tablet 1 07/04/2022 Active Start: 06-23-2021 End: 11-29-2021 take 1 tablet by mouth once daily meloxicam (MOBIC) 7.5 mg tablet Take 1 tablet by mouth once daily. 30 tablet 5 10/04/2021 11/29/2021 Discontinued Start: 06-30-2020 End: 02-28-2021 take 1 tablet by mouth once daily at mealtime meloxicam (MOBIC) 15 mg tablet Take 1 tablet by mouth once daily. With food. 06/30/2020 02/28/2021 Discontinued Comment on above: Take 7.5 mg by mouth once daily. Take 1 tablet by ibeth once daily. 5 ml metoprolol tartrate 1 mg/ml injection (20 sources) beta-Adrenergic Darcy Start: 09-08-2024 End: 09-15-2024 metoprolol 2.5-5 mg injection (LOPRESSOR) Start: 04-07-2024 End: 02-25-2025 take 0.5 tablet by mouth twice daily metoprolol tartrate, short acting, (LOPRESSOR) 25 mg tablet Take 0.5 tablets by mouth two times a day. Hold for HR 90 tablet 1 08/29/2024 02/25/2025 Active Start: 03-27-2024 take 2 tablets by mo [facility] three times daily Metoprolol Succinate 25 mg tablet extended release 24 hr Active 12.5 mg PO THREE TIMES A DAY March 27, 2024 1:00am Start: 03-10-2024 End: 04-07-2024 take 0.5 tablet by mouth every eight hours metoprolol tartrate, short acting, (LOPRESSOR) 25 mg tablet Take 0.5 tablets by mouth every 8 hours. Hold for HR 03/10/2024 04/07/2024 Discontinued Start: 02-07-2024 take 0.5 tablet by mouth once metoprolol tartrate, short acting, (LOPRESSOR) 25 mg tablet Take 0.5 tablets by mouth one time only for 1 dose. Take morning of surgery. 0.5 tablet 02/07/2024 Suspended Start: 12-21-2023 End: 03-20-2024 take 1 tablet by mouth once daily metoprolol succinate ER (TOPROL XL) 25 mg 24 hr tablet Indications: Mixed hyperlipidemia , Coronary artery disease involving [place]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[place] heart without angina pectoris Take 1 tablet by mouth once daily. 90 tablet 12/21/2023 03/20/2024 Suspended MULTIVITAMIN TAB (1 source) Start: 12-05-2005 End: 10-13-2020 MULTIVITAMIN TAB Take one(1) tablet daily. 0 12/05/2005 10/13/2020 Discontinued olopatadine 1 mg/ml ophthalmic solution (12 sources) Histamine-1 Receptor Inhibitor Start: 01-25-2022 End: 06-21-2022 take 1 drop(s) into the eye(s) twice daily olopatadine (PATANOL) 0.1 % ophthalmic solution Indications: Allergic conjunctivitis of both eyes Use 1 Drop in both eyes twice daily. 5 mL 1 01/25/2022 06/21/2022 Discontinued Comment on above: Use 1 Drop in both e yes twice daily. ondansetron ODT (Zofran-ODT) disintegrating tablet 4 mg (2 sources) Start: 06-12-2023 End: 06-18-2023 take 1 tablet by mouth every eight hours as needed for nausea and vomiting ondansetron ODT (Zofran-ODT) disintegrating tablet 4 mg pantoprazole (ProtoNix) 80 mg in sodium chloride (PF) 0.9 % 20 mL injection (2 sources) Start: 06-12-2023 End: 06-12-2023 pantoprazole (ProtoNix) 80 mg in sodium chloride (PF) 0.9 % 20 mL injection pantoprazole in NS (Protonix) 80 mg in 100 mL (0.8 mg/mL) infusion (2 sources) Start: 06-13-2023 End: 06-15-2023 pantoprazole in NS (Protonix) 80 mg in 100 mL (0.8 mg/mL) infusion perflutren lipid microspheres 1.3 mL in NaCl (PF) 0.9% 10 mL injection (DEFINITY) (6 sources) Start: 09-08-2024 End: 09-15-2024 perflutren lipid microspheres 1.3 mL in NaCl (PF) 0.9% 10 mL injection (DEFINITY) QUEtiapine 25 mg oral tablet (7 sources) Atypical Antipsychotic Start: 06-08-2023 End: 09-07-2023 take 1 tablet by mouth at dinner Quetiapine 25 mg Tablet Discontinued 25 mg PO WITH DINNER 0 0 June 08, 2023 12:00am September 07, 2023 10:44am regadenoson 0.4 mg injection (LEXISCAN) (5 sources) Start: 09-08-2024 End: 09-15-2024 regadenoson 0.4 mg injection (LEXISCAN) Start: 12-21-2023 End: 12-21-2023 regadenoson 0.4 mg injection (LEXISCAN) Start: 12-21-2023 End: 12-21-2023 0.4 mg, INTRAVENOUS, ONCE, 1 dose, On Sun12/21/23 at 1000, Give 0.4 mg (5 mL) over ~10 seconds, followed immediately by a 5 mL saline flush. Wait 10-20 seconds, then administer the radionuclide myocardial perfusion imaging agent. sertraline 25 mg oral tablet (20 sources) Serotonin Reuptake Inhibitor Start: 06-04-2023 End: 06-04-2023 take 1 tablet by mouth once daily Sertraline 25 mg tablet Discontinued 25 mg PO DAILY June 04, 2023 12:00am June 04, 2023 8:37pm Start: 04-17-2023 End: 10-23-2023 sertraline (ZOLOFT) 25 mg ta blet Indications: 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rder (HCC) Take 1 tablet every other day for 2 weeks, then every 3rd day for 2 weeks, then stop 04/17/2023 10/23/2023 Discontinued (Course of therapy completed) Start: 11-28-2022 End: 04-17-2023 take 1 tablet by mouth once daily sertraline (ZOLOFT) 25 mg tablet Indications: 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rder (HCC) Take 1 tablet by mouth once daily. 90 tablet 1 11/28/2022 04/17/2023 Discontinued Start: 07-25-2021 End: 07-03-2022 take 1 tablet by mouth once daily sertraline (ZOLOFT) 25 mg tablet Indications: 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rder (HCC) Take 1 tablet by mouth once daily. 90 tablet 1 07/04/2022 Active Start: 02-28-2021 End: 05-03-2021 take 1 tablet by mouth once daily sertraline (ZOLOFT) 25 mg tablet Indications: 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rder (HCC) Take 1 tablet by mouth once daily. 90 tablet 1 05/03/2021 Active Start: 02-07-2020 End: 08-19-2020 take 1 tablet by mouth once daily sertraline (ZOLOFT) 25 mg tablet Take 1 tablet by mouth once daily. 90 tablet 1 02/07/2020 08/19/2020 Discontinued Comment on above: Take 1 tablet by ibeth th once daily. Take 1 tablet every other day for 2 weeks, then every 3rd day for 2 weeks, then stop 125 ml sodium chloride 9 mg/ml prefilled syringe (11 sources) Start: 09-08-2024 End: 09-15-2024 sodium chloride 0.9 % (flush) 10 mL (BD POSIFLUSH) Start: 05-11-2024 End: 05-11-2024 0.9 % sodium chloride (NACL 0.9%) infusion Indications: Microscopic hematuria Administer at rate defined per CT contrast administration specifications. To be provided with radiology test. 150 mL 05/11/2024 05/11/2024 Start: 04-15-2024 End: 04-15-2024 sodium chloride 0.9 % (flush ) 2-10 mL (BD POSIFLUSH) Start: 04-15-2024 End: 04-15-2024 2-10 mL, INTRAVENOUS, ONCE, 1 dose, On Sun04/15/24 at 0930 Start: 06-12-2023 End: 06-18-2023 sodium chloride 0.9 % infusi on traMADol hydrochloride 50 mg oral tablet (4 sources) Opioid Agonist Start: 10-12-2023 End: 10-12-2023 take 1 tablet by mouth once daily Tramadol 50 mg tablet Discontinued 50 mg PO DAILY October 12, 2023 12:00am October 12, 2023 9:31am Problems Active Problems Problem Classification Problem Date Documented Da te Episodic/Chronic Acute and unspecified renal failure (9 sources) Acute renal failure syndrome; Translations: [Acute kidney failure, unspecified] 06-04-2023 Episodic Cardiac dysrhythmias (16 sources) Paroxysmal atrial fibrillation; Translations: [Paroxysmal atrial fibrillation] Onset: 05-05-2024 03-24-2024 Chronic Complication of device; implant or graft (5 sources) Urinary tract infectious disease; Translations: [Infection and inflammatory reaction due to indwelling urethral catheter, initial encounter] Onset: 06-12-2023 06-12-2023 Episodic Congestive heart failure; nonhypertensive (20 sources) Chronic heart failure co-occurrent with normal ejection fraction; Translations: [Chronic diastolic (congestive) heart failure] Onset: 04-08-2024 04-08-2024 Chronic Coronary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 WBC (Bld) [Ratio] 0.0 /100 WBC Normal [facility] Comment on above: Order Comment: Speci men Type: BLOOD SPECIMENOrdering Facility: [facility] Address: [address] [place] [address] Performed By: #### 5 7021-8 ####[facility]CL[facility] [id number] [place] [address] [place] Platelet mean volume (Bld) [Entitic vol] 12.1 fL Normal 9.0-12.7 [facility] Comment on above: Order Comment: Speci men Type: BLOOD SPECIMENOrdering Facility: [facility] Address: [address] [place] [address] Performed By: #### 5 7021-8 ####[facility]CL[facility] [id number] [place] [address] [place] Platelets (Bld) [#/Vol] 216 10*3/uL Normal 150-400 [facility] Comment on above: Order Comment: Speci men Type: BLOOD SPECIMENOrdering Facility: [facility] Address: [address] [place] [address] Performed By: #### 5 7021-8 ####[facility]CLIA [id number] [address], [place] [address] [place] RBC (Bld) [#/Vol] 4.11 10*6/uL Low 4.20-6.00 [facility] Comment on above: Order Comment: Speci men Type: BLOOD SPECIMENOrdering Facility: [facility] Address: [address] [place] [address] Performed By: #### 5 7021-8 ####[facility]CL[facility] [id number] [place] [address] [place] WBC (Bld) [#/Vol] 8.88 10*3/uL Normal 3.70-11.00 [facility] Comment on above: Order Comment: Speci men Type: BLOOD SPECIMENOrdering Facility: [facility] Address: [address] [place] [address] Performed By: #### 5 7021-8 ####[facility]CL[facility] [id number] [place] [address] [place] CNOVon 11-03-2024 CNOV Normal [facility] Ferritin SerPl-mCncon 2024 Ferritin [Mass/Vol] 30.7 ng/mL Normal 30.3-565.7 [facility] Comment on above: Order Comment: Speci men Type: BLOOD SPECIMENOrdering Facility: [facility] Address: [address] [place] [address] Performed By: #### 5 0190-8, 2275-4 ####[facility]CLIA [id number] [place] [address] [place] Iron and Iron binding capaci ty panelon 11-03-2024 Iron [Mass/Vol] 214 ug/dL High 41-186 [facility] Comment on above: Order Comment: Speci men Type: BLOOD SPECIMENOrdering Facility: [facility] Address: [address] [place] [address] Performed By: #### 5 0190-8, 2275-4 ####[facility] LABIA [id number] [place] [address] [place] Iron binding capacity [Mass/Vol] 358 ug/dL Normal 232-386 [facility] Comment on above: Order Comment: Speci men Type: BLOOD SPECIMENOrdering Facility: [facility] Address: [address] [place] [address] Performed By: #### 5 0190-8, 2275-4 ####[facility] LABIA [id number] [place] [address] [place] Iron/TIBC [Molar ratio] 59.8 % High 15.0-57.0 [facility] Comment on above: Order Comment: Speci men Type: BLOOD SPECIMENOrdering Facility: [facility] Address: [address] [place] [address] Performed By: #### 5 0190-8, 2276-4 ####[facility] LABIA [id number] [place] [address] [place] CNPTOUTREACHon 10-31-2024 CNPTOUTREACH Normal [facility] CNPTOUTREACHon 10-28-2024 CNPTOUTREACH Normal [facility] CNOVon 10-27-2024 CNOV Normal [facility] CNPNon 10-17-2024 CNPN Normal [facility] CNPNon 10-03-2024 CNPN Normal [facility] CNPTOUTREACHon 10-02-2024 CNPTOUTREACH Normal [facility] CNPTOUTREACHon 09-25-2024 CNPTOUTREACH Normal [facility] Bacteria Ur Culton Bacteria identified Cx Nom (U) CULTURE, URINE: No growth (<1,000 CFU/ml) Normal [facility] Comment on above: Performed By: #### 6 30-4 ####[facility] LABIA [id number] [place] [address] [place] CBC W Auto Differential pane l (Bld)on 09-24-2024 Basophils (Bld) [#/Vol] 0.03 10*3/uL Normal <0.11 [facility] Comment on above: Order Comment: Speci men Type: BLOOD SPECIMENOrdering Facility: [facility] Address: [address] [place] [address] Performed By: #### 5 7021-8 ####[facility] LABIA [id number] [place] [address] [place] Basophils/100 WBC (Bld) 0.3 % Normal [facility] Comment on above: Order Comment: Speci men Type: BLOOD SPECIMENOrdering Facility: [facility] Address: [address] [place] [address] Performed By: #### 5 7021-8 ####[facility] LABCLIA [id number] [address], [place] [address] [place] Differential cell count method Nom (Bld) Auto Normal [facility] Comment on above: Order Comment: Speci men Type: BLOOD SPECIMENOrdering Facility: [facility] Address: [address] [place] [address] Performed By: #### 5 7021-8 ####[facility] LABCL[facility] [id number] [place] [address] [place] Eosinophils (Bld) [#/Vol] 0.17 10*3/uL Normal <0.46 [facility] Comment on above: Order Comment: Speci men Type: BLOOD SPECIMENOrdering Facility: [facility] Address: [address] [place] [address] Performed By: #### 5 7021-8 ####[facility] LABCLIA [id number] [place] [address] [place] Eosinophils/100 WBC (Bld) 1.8 % Normal [facility] Comment on above: Order Comment: Speci men Type: BLOOD SPECIMENOrdering Facility: [facility] Address: [address] [place] [address] Performed By: #### 5 7021-8 ####[facility]CLIA [id number] [place] [address] [place] Erythrocyte distribution width (RBC) [Ratio] 15.0 % Normal 11.5-15.0 [facility] Comment on above: Order Comment: Speci men Type: BLOOD SPECIMENOrdering Facility: [facility] Address: [address] [place] [address] Performed By: #### 5 7021-8 ####[facility] LABCLIA [id number] [place] [id number] [place] Hematocrit (Bld) [Volume fraction] 28.8 % Low 39.0-51.0 [facility] Comment on above: Order Comment: Speci men Type: BLOOD SPECIMENOrdering Facility: [facility] Address: [address] [place] [address] Performed By: #### 5 7021-8 ####[facility] LABCLIA [id number] [address] [address] [place] Hemoglobin (Bld) [Mass/Vol] 9.3 g/dL Low 13.0-17.0 [facility] Comment on above: Order Comment: Speci men Type: BLOOD SPECIMENOrdering Facility: [facility] Address: [address] [place] [address] Performed By: #### 5 7021-8 ####[facility] LABCLIA [id number] [place] [address] [place] Immature granulocytes (Bld) [#/Vol] 0.03 10*3/uL Normal <0.10 [facility] Comment on above: Order Comment: Speci men Type: BLOOD SPECIMENOrdering Facility: [facility] Address: [address] [place] [address] Performed By: #### 5 7021-8 ####[facility] LABIA [id number] [place] [address] [place] Immature granulocytes/100 WBC (Bld) 0.3 % Normal [facility] Comment on above: Order Comment: Speci men Type: BLOOD SPECIMENOrdering Facility: [facility] Address: [address] [place] [address] Performed By: #### 5 7021-8 ####[facility] LABCLIA [id number] [place] [id number] [place] Lymphocytes (Bld) [#/Vol] 1.24 10*3/uL Normal 1.00-4.00 [facility] Comment on above: Order Comment: Speci men Type: BLOOD SPECIMENOrdering Facility: [facility] Address: [address] [place] [address] Performed By: #### 5 7021-8 ####[facility] LABCLIA [id number] [place] [address] [place] Lymphocytes/100 WBC (Bld) 13.2 % Normal [facility] Comment on above: Order Comment: Speci men Type: BLOOD SPECIMENOrdering Facility: [facility] Address: [address] [place] [address] Performed By: #### 5 7021-8 ####[facility] LABIA [id number] [place] [address] [place] MCH (RBC) [Entitic mass] 29.9 pg Normal 26.0-34.0 [facility] Comment on above: Order Comment: Speci men Type: BLOOD SPECIMENOrdering Facility: [facility] Address: [address] [place] [address] Performed By: #### 5 7021-8 ####[facility] LABIA [id number] [place] [address] [place] MCHC (RBC) [Mass/Vol] 32.3 g/dL Normal 30.5-36.0 [facility] Comment on above: Order Comment: Speci men Type: BLOOD SPECIMENOrdering Facility: [facility] Address: [address] [place] [address] Performed By: #### 5 7021-8 ####[facility] LABIA [id number] [place] [address] [place] MCV (RBC) [Entitic vol] 92.6 fL Normal 80.0-100.0 [facility] Comment on above: Order Comment: Speci men Type: BLOOD SPECIMENOrdering Facility: [facility] Address: [address] [place] [address] Performed By: #### 5 7021-8 ####[facility] LABIA [id number] [place] [address] [place] Monocytes (Bld) [#/Vol] 0.63 10*3/uL Normal <0.87 [facility] Comment on above: Order Comment: Speci men Type: BLOOD SPECIMENOrdering Facility: [facility] Address: [address] [place] [address] Performed By: #### 5 7021-8 ####[facility]CL[facility] [id number] [facility] [place] [address] [place] Monocytes/100 WBC (Bld) 6.7 % Normal [facility] Comment on above: Order Comment: Speci men Type: BLOOD SPECIMENOrdering Facility: [facility] Address: [address] [place] [address] Performed By: #### 5 7021-8 ####[facility] LABCLIA [id number] [place] [address] [place] Neutrophils (Bld) [#/Vol] 7.27 10*3/uL Normal 1.45-7.50 [facility] Comment on above: Order Comment: Speci men Type: BLOOD SPECIMENOrdering Facility: [facility] Address: [address] [place] [address] Performed By: #### 5 7021-8 ####[facility] LABCLIA [id number] [place] [address] [place] Neutrophils/100 WBC (Bld) 77.7 % Normal [facility] Comment on above: Order Comment: Speci men Type: BLOOD SPECIMENOrdering Facility: [facility] Address: [address] [place] [address] Performed By: #### 5 7021-8 ####[facility] LABCLIA [id number] [place] [id number] [place] Nucleated RBC (Bld) [#/Vol] 10*3/uL Normal <0.01 [facility] Comment on above: Order Comment: Speci men Type: BLOOD SPECIMENOrdering Facility: [facility] Address: [address] [place] [address] Performed By: #### 5 7021-8 ####[facility] LABCLIA [id number] [address], [facility]95 [place] Nucleated RBC/100 WBC (Bld) [Ratio] 0.0 /100 WBC Normal [facility] Comment on above: Order Comment: Speci men Type: BLOOD SPECIMENOrdering Facility: [facility] Address: [address] [place] [address] Performed By: #### 5 7021-8 ####[facility] LABCLIA [id number] [address], [facility] [place] Platelet mean volume (Bld) [Entitic vol] 11.9 fL Normal 9.0-12.7 [facility] Comment on above: Order Comment: Speci men Type: BLOOD SPECIMENOrdering Facility: [facility] Address: [address] [place] [address] Performed By: #### 5 7021-8 ####[facility] LABIA [id number] [address], [place] [address] [place] Platelets (Bld) [#/Vol] 237 10*3/uL Normal 150-400 [facility] Comment on above: Order Comment: Speci men Type: BLOOD SPECIMENOrdering Facility: [facility] Address: [address] [place] [address] Performed By: #### 5 7021-8 ####[facility] LABCLIA [id number] [address] [place] [address] [place] RBC (Bld) [#/Vol] 3.11 10*6/uL Low 4.20-6.00 [facility] Comment on above: Order Comment: Speci men Type: BLOOD SPECIMENOrdering Facility: [facility] Address: [address] [place] [address] Performed By: #### 5 7021-8 ####[facility] LABCLIA [id number] [place] [address] [place] WBC (Bld) [#/Vol] 9.37 10*3/uL Normal 3.70-11.00 [facility] Comment on above: Order Comment: Speci men Type: BLOOD SPECIMENOrdering Facility: [facility] Address: [address] [place] [address] Performed By: #### 5 7021-8 ####[facility] LABCLIA [id number] [place] [address] [place] Comprehensive metabolic 2000 panelon 09-24-2024 Albumin [Mass/Vol] 3.9 g/dL Normal 3.9-4.9 [facility] Comment on above: Order Comment: Speci men Type: BLOOD SPECIMENOrdering Facility: [facility] Address: [address] [place] [address] Performed By: #### 2 4323-8 ####[facility] LABCLIA [id number] [place] [address] [place] ALP [Catalytic activity/Vol] 83 U/L Normal 38-113 [facility] Comment on above: Order Comment: Speci men Type: BLOOD SPECIMENOrdering Facility: [facility] Address: [address] [place] [address] Performed By: #### 2 4323-8 ####[facility] LABIA [id number] [place] [address] [place] ALT [Catalytic activity/Vol] 13 U/L Normal 10-54 [facility] Comment on above: Order Comment: Speci men Type: BLOOD SPECIMENOrdering Facility: [facility] Address: [address] [place] [address] Performed By: #### 2 4323-8 ####[facility] LABCLIA [id number] [place] [address] [place] Anion gap [Moles/Vol] 13 mmol/L Normal 8-15 [facility] Comment on above: Order Comment: Speci men Type: BLOOD SPECIMENOrdering Facility: [facility] Address: [address] [place] [address] Performed By: #### 2 4323-8 ####[facility] LABCLIA [id number] [place] [address] [place] AST [Catalytic activity/Vol] 6 U/L Low 14-40 [facility] Comment on above: Order Comment: Speci men Type: BLOOD SPECIMENOrdering Facility: [facility] Address: [address] [place] [address] Performed By: #### 2 4323-8 ####[facility] LABCLIA [id number] [place] [address] [place] Bilirubin [Mass/Vol] 0.3 mg/dL Normal 0.2-1.3 [facility] Comment on above: Order Comment: Speci men Type: BLOOD SPECIMENOrdering Facility: [facility] Address: [address] [place] [address] Performed By: #### 2 4323-8 ####[facility] LABCLIA [id number] [place] [address] [place] Calcium [Mass/Vol] 9.2 mg/dL Normal 8.5-10.2 [facility] Comment on above: Order Comment: Speci men Type: BLOOD SPECIMENOrdering Facility: [facility] Address: [address] [place] [address] Performed By: #### 2 4323-8 ####[facility] LABCLIA [id number] [place] [id number] [place] Chloride [Moles/Vol] 106 mmol/L Normal 98-107 [facility] Comment on above: Order Comment: Speci men Type: BLOOD SPECIMENOrdering Facility: [facility] Address: [address] [place] [address] Performed By: #### 2 4323-8 ####[facility] LABCLIA [id number] [address] [address] [place] CO2 [Moles/Vol] 23 mmol/L Normal 22-30 [facility] Comment on above: Order Comment: Speci men Type: BLOOD SPECIMENOrdering Facility: [facility] Address: [address] [place] [address] Performed By: #### 2 4323-8 ####[facility]CLIA [id number] [address] [address] [place] Creatinine [Mass/Vol] 1.00 mg/dL Normal 0.73-1.22 [facility] Comment on above: Order Comment: Speci men Type: BLOOD SPECIMENOrdering Facility: [facility] Address: [address] [place] [address] Performed By: #### 2 4323-8 ####[facility] LABIA [id number] [place] [id number] [place] eGFRcr SerPlBld CKD-EPI 2020 78 mL/min/1.73m??? Normal >=60 [facility] Comment on above: Order Comment: Speci men Type: BLOOD SPECIMENOrdering Facility: [facility] Address: [address] [place] [address] Result Comment: Teri mated Glomerular Filtration Rate (eGFR) is calculated using the 2020 CKD-EPI creatinine equation. This equation utilizes serum creatinine, sex, and age as parameters. The creatinine assay has traceable calibration to isotope dilution-mass spectrometry. Refer to KDIGO guidelines for clinical interpretation. In patients with unstable renal function, e.g. those with acute kidney injury, the eGFR may not accurately reflect actual GFR. Performed By: #### 2 4323-8 ####[facility] LABCLIA [id number] [address] [address] [place] Glucose [Mass/Vol] 88 mg/dL Normal 74-99 [facility] Comment on above: Order Comment: Speci men Type: BLOOD SPECIMENOrdering Facility: [facility] Address: [address] [place] [address] Result Comment: The [place] [employer] (ADA) provides guidance for cutoff values for fasting glucose and random glucose. The ADA defines fasting as no caloric intake for at least 8 hours. Fasting plasma glucose results between 100 to 125 mg/dL indicate increased risk for diabetes (prediabetes).Fasting plasma glucose results greater than or equal to 126 mg/dL meet the criteria for diagnosis of diabetes. In the absence of unequivocal hyperglycemia, results should be confirmed by repeat testing. In a patient with classic symptoms of hyperglycemia or hyperglycemic crisis, random plasma glucose results greater than or equal to 200 mg/dL meet the criteria for diagnosis of diabetes.Reference: Standards of Medical Care in Diabetes 2016, [place] [employer]. Diabetes Care. 2016.39(Suppl 1). Performed By: #### 2 4323-8 ####[facility] LABIA [id number] [place] [address] [place] Potassium [Moles/Vol] 4.5 mmol/L Normal 3.7-5.1 [facility] Comment on above: Order Comment: Speci men Type: BLOOD SPECIMENOrdering Facility: [facility] Address: [address] [place] [address] Performed By: #### 2 4323-8 ####[facility] [id number] [place] [address] [place] Protein [Mass/Vol] 6.4 g/dL Normal 6.3-8.0 [facility] Comment on above: Order Comment: Speci men Type: BLOOD SPECIMENOrdering Facility: [facility] Address: [address] [place] [address] Performed By: #### 2 4323-8 ####[facility] LABIA [id number] [place] [id number] [place] Sodium [Moles/Vol] 142 mmol/L Normal 136-144 [facility] Comment on above: Order Comment: Speci men Type: BLOOD SPECIMENOrdering Facility: [facility] Address: [address] [place] [address] Performed By: #### 2 4323-8 ####[facility] LABCLIA [id number] [address] [address] [place] Urea nitrogen [Mass/Vol] 15 mg/dL Normal 9-24 [facility] Comment on above: Order Comment: Speci men Type: BLOOD SPECIMENOrdering Facility: [facility] Address: [address] [place] [address] Performed By: #### 2 4323-8 ####[facility] LABIA [id number] [place] [address] [place] Hemoccult Stl Ql IAon 2024 Lower GI hemoglobin IA Ql (Stl) Negative Normal Negative [facility] Comment on above: Order Comment: Speci men Type: STOOL SPECIMENOrdering Facility: [facility] Address: [address] [place] [address] Performed By: #### 2 9771-3 ####[facility] LABIA [id number] [place] [address] [place] Urinalysis complete panel (U )on 09-24-2024 Bacteria LM.HPF (Urine sed) [#/Area] Negative Normal Negative [facility] Comment on above: Order Comment: Speci men Type: URINE SPECIMENOrdering Facility: [facility] Address: [address] [place] [address] Performed By: #### 2 4356-8 ####[facility] LABIA [id number] [place] [id number] [place] Bilirubin Ql (U) Negative Normal Negative [facility] Comment on above: Order Comment: Speci men Type: URINE SPECIMENOrdering Facility: [facility] Address: [address] [place] [address] Performed By: #### 2 4356-8 ####[facility]IA [id number] [place] [id number] [place] Clarity (Unsp spec) Clear Normal Clear [facility] Comment on above: Order Comment: Speci men Type: URINE SPECIMENOrdering Facility: [facility] Address: [address] [place] [address] Performed By: #### 2 4356-8 ####[facility] LABCLIA [id number] [facility] [address] [place] [address] [place] Color (U) Yellow Normal Yellow [facility] Comment on above: Order Comment: Speci men Type: URINE SPECIMENOrdering Facility: [facility] Address: [address] [place] [address] Performed By: #### 2 4356-8 ####[facility] LABCLIA [id number] [address], [facility] [place] Epithelial cells LM.HPF (Urine sed) [#/Area] None Seen Normal [facility] Comment on above: Order Comment: Speci men Type: URINE SPECIMENOrdering Facility: [facility] Address: [address] [place] [address] Performed By: #### 2 4356-8 ####[facility]CL[facility] [id number] [facility] [address] [place] [address] [place] Glucose Test strip (U) [Mass/Vol] Negative Normal Negative [facility] Comment on above: Order Comment: Speci men Type: URINE SPECIMENOrdering Facility: [facility] Address: [address] [place] [address] Performed By: #### 2 4356-8 ####[facility]CL[facility] [id number] [facility] [address] [place] [address] [place] Hemoglobin Ql (U) Negative Normal Negative [facility] Comment on above: Order Comment: Speci men Type: URINE SPECIMENOrdering Facility: [facility] Address: [address] [place], [place] [address] Performed By: #### 2 4356-8 ####[facility]CL[facility] [id number] [facility] [address] [place] [address] [place] Hyaline casts (Urine sed) [#/Area] 0 /[LPF] Normal 0 /LPF [facility] Comment on above: Order Comment: Speci men Type: URINE SPECIMENOrdering Facility: [facility] Address: [address] [place] [address] Performed By: #### 2 4356-8 ####[facility] LABCLIA [id number] [place] [address] [place] Ketones Ql (U) Negative Normal Negative [facility] Comment on above: Order Comment: Speci men Type: URINE SPECIMENOrdering Facility: [facility] Address: [address] [place] [address] Performed By: #### 2 4356-8 ####[facility] LABCLIA [id number] [place] [address] [place] Leukocyte esterase Test strip Ql (U) Negative Normal Negative [facility] Comment on above: Order Comment: Speci men Type: URINE SPECIMENOrdering Facility: [facility] Address: [address] [place] [address] Performed By: #### 2 4356-8 ####[facility] LABCLIA [id number] [address], [place] [address] [place] Nitrite Ql (U) Negative Normal Negative [facility] Comment on above: Order Comment: Speci men Type: URINE SPECIMENOrdering Facility: [facility] Address: [address] [place] [address] Performed By: #### 2 4356-8 ####[facility] LABCLIA [id number] [place] [id number] [place] pH (U) 7.0 [pH] Normal 5.0-8.0 [facility] Comment on above: Order Comment: Speci men Type: URINE SPECIMENOrdering Facility: [facility] Address: [address] [place] [address] Performed By: #### 2 4356-8 ####[facility] LABCLIA [id number] [place] [address] [place] Protein (U) [Mass/Vol] Trace Abnormal Negative Cl [facility] Comment on above: Order Comment: Speci men Type: URINE SPECIMENOrdering Facility: [facility] Address: [address] [place] [address] Performed By: #### 2 4356-8 ####[facility] LABIA [id number] [place] [address] [place] RBC LM.HPF (Urine sed) [#/Area] 0-2 /HPF Normal 0-2 /HPF [facility] Comment on above: Order Comment: Speci men Type: URINE SPECIMENOrdering Facility: [facility] Address: [address] [place] [address] Performed By: #### 2 4356-8 ####[facility] [id number] [place] [address] [place] Specific gravity (U) [Rel density] 1.016 Normal 1.005-1.03 0 [facility] Comment on above: Order Comment: Speci men Type: URINE SPECIMENOrdering Facility: [facility] Address: [address] [place] [address] Performed By: #### 2 4356-8 ####[facility] LABIA [id number] [address] [place] Urobilinogen Ql (U) 0.2 EU/dL Normal 0.2-1.0 EU/dL [facility] Comment on above: Order Comment: Speci men Type: URINE SPECIMENOrdering Facility: [facility] Address: [address] [place] [address] Performed By: #### 2 4356-8 ####[facility] LABIA [id number] [place] [address] [place] WBC LM.HPF (Urine sed) [#/Area] 0-5 /HPF Normal 0-5 /HPF [facility] Comment on above: Order Comment: Speci men Type: URINE SPECIMENOrdering Facility: [facility] Address: [address] [place] [address] Performed By: #### 2 4356-8 ####[facility] LABCLIA [id number] [place] [address] [place] CNPNon 09-22-2024 CNPN Normal [facility] CNPTOUTREACHon 09-22-2024 CNPTOUTREACH Normal [facility] CNPTOUTREACHon 09-19-2024 CNPTOUTREACH Normal [facility] CNOVon 09-18-2024 CNOV Normal [facility] CNPTOUTREACHon 09-18-2024 CNPTOUTREACH Normal [facility] CNOVon 09-16-2024 CNOV Normal [facility] CNPNon 09-16-2024 CNPN Normal [facility] UAon 09-13-2024 Color (U) Yellow Normal [facility] Comment on above: Performed By: #### G FR, ADIFF, ANEU, BMP, CBC #### [address] [address] Glucose (U) [Mass/Vol] Negative Normal Negative [facility] Comment on above: Performed By: #### G FR, ADIFF, ANEU, BMP, CBC #### [address] [address] Ketones Ql (U) Negative Normal Negative [facility] Comment on above: Performed By: #### G FR, ADIFF, ANEU, BMP, CBC #### [address] [address] UA Appear Clear Normal Clear [facility] Comment on above: Performed By: #### G FR, ADIFF, ANEU, BMP, CBC #### [address] [address] UA Blood Negative Normal Negative [facility] Comment on above: Performed By: #### G FR, ADIFF, ANEU, BMP, CBC #### [place] [address] UA Leuk Est Negative Normal Negative [facility] Comment on above: Performed By: #### G FR, ADIFF, ANEU, BMP, CBC #### [place] [address] UA Nitrite Negative Normal Negative [facility] Comment on above: Performed By: #### G FR, ADIFF, ANEU, BMP, CBC #### [place] [address] UA pH 6.0 Normal 5.0 - 8.0 [facility] Comment on above: Performed By: #### G FR, ADIFF, ANEU, BMP, CBC #### [place] [address] UA Protein Negative Normal Negative [facility] Comment on above: Performed By: #### G FR, ADIFF, ANEU, BMP, CBC #### [place] [address] UA Spec Grav 1.015 Normal 1.015-1.02 5 [facility] Comment on above: Performed By: #### G FR, ADIFF, ANEU, BMP, CBC #### [place] [address] UA Specimen Type Void Normal [facility] Comment on above: Performed By: #### G FR, ADIFF, ANEU, BMP, CBC #### [place] [address] UA Urobilinogen 0.2 E.U./dL Normal 0.2-1.0 [facility] Comment on above: Performed By: #### G FR, ADIFF, ANEU, BMP, CBC #### [place] [address] Urobilinogen (U) [Mass/Vol] Negative Normal Negative [facility] Comment on above: Performed By: #### G FR, ADIFF, ANEU, BMP, CBC #### [place] [id number] UAMICon 09-13-2024 UA RBC 0-2 Normal 0-2 [facility] Comment on above: Performed By: #### G FR, ADIFF, ANEU, BMP, CBC #### [facility] [address] [place], [place] [address] UA Squam Epithelial 0-2 Normal 0-20 [facility] Comment on above: Performed By: #### G FR, ADIFF, ANEU, BMP, CBC #### [place] [id number] [place], [place] [address] UA WBC 0-2 Normal 0-5 [facility] Comment on above: Performed By: #### G FR, ADIFF, ANEU, BMP, CBC #### [place] [id number] [place], [place] [address] CNPTOUTREACHon 09-11-2024 CNPTOUTREACH Normal [facility] CT HEAD OR BRAIN W/O CONTRAS Ton 09-11-2024 CT HEAD OR BRAIN W/O CONTRAST ORIGINAL EXAMINATION: CT OF THE HEAD WITHOUT CONTRAST 09/11/2024 10:33 am TECHNIQUE: CT of the head was performed without the administration of intravenous contrast. Automated exposure control, iterative reconstruction, and/or weight based adjustment of the mA/kV was utilized to reduce the radiation dose to as low as reasonably achievable. COMPARISON: None. HISTORY: ORDERING SYSTEM PROVIDED HISTORY: Reason for Exam: Pt fell as he was sitting into a chair today. hit back of head. pain; trauma patient FINDINGS: BRAIN/VENTRICLES: There is no acute intracranial hemorrhage, mass effect or midline shift. No abnormal extra-axial fluid collection. The avendano-white differentiation is maintained without evidence of an acute infarct. There is no evidence of hydrocephalus. Scattered white matter hypodensities are nonspecific but statistically most consistent with moderate chronic microvascular angiopathy. The ventricles are moderately enlarged with commensurate enlargement of the sulci most consistent with parenchymal volume loss. ORBITS: The visualized portion of the orbits demonstrate no acute abnormality. SINUSES: The visualized paranasal sinuses and mastoid air cells demonstrate no acute abnormality. SOFT TISSUES/SKULL: No acute abnormality of the visualized skull or soft tissues. IMPRESSION: No acute intracranial abnormality. I have personally reviewed the images of this examination and agree with the resident's findings and interpretation. Interpreted by: Monique Chaudhary MD Preliminary Report By: Dhara Edgar MD Electronically signed By Monique Chaudhary MD Dictated Date: 09/11/2024 10:36:53 AM Prelim Date: 09/11/2024 11:04:11 AM Sign Date: 09/11/2024 11:04:11 AM [facility]ing [facility] CERVICAL W/O CONTRA STon 09-11-2024 CT SPINE CERVICAL W/O CONTRAST ORIGINAL EXAMINATION: CT OF THE CERVICAL SPINE WITHOUT CONTRAST TECHNIQUE: Multiple-row detector helical CT examination of the cervical spine without IV contrast. Axial, sagittal, and coronal reconstructed images. This exam was performed according to our departmental dose optimization program, and includes the following measures where applicable: automated exposure control, adjustment of the mAs and/or kVp according to patient size and/or exam, and an iterative reconstruction algorithm. COMPARISON: None. HISTORY: ORDERING SYSTEM PROVIDED HISTORY: Reason for Exam: Pt fell as he was sitting into a chair today. hit back of head. pain; trauma patient FINDINGS: No fracture or traumatic malalignment. Vertebral body heights are maintained. The craniocervical junction is preserved. No aggressive osseous lesions are identified. Multilevel degenerative changes with disc height loss and endplate osteophyte formation most prominent at C5-C6 and C6-C7. Moderate right-sided facet arthropathy at C3 and C4 resulting in at least moderate right-sided neural foraminal stenosis. The prevertebral and paraspinal soft tissues demonstrate no acute abnormality. The lung apices are unremarkable. IMPRESSION: No acute fracture or traumatic malalignment. I have personally reviewed the images of this examination and agree with the resident's findings and interpretation. Interpreted by: Monique Chaudhary MD Preliminary Report By: Dhara Edgar MD Electronically signed By Monique Chaudhary MD Dictated Date: 09/11/2024 10:40:01 AM Prelim Date: 09/11/2024 10:52:30 AM Sign Date: 09/11/2024 10:52:30 AM [facility]ing [facility] 2 VIEWS LEFTon 09-11 XR RIBS 2 VIEWS LEFT ORIGINAL EXAMINATION: 4 XRAY VIEWS OF THE LEFT RIBS 09/11/2024 10:45 am COMPARISON: None. HISTORY: ORDERING SYSTEM PROVIDED HISTORY: Reason for Exam: lt lateral rib pain s/p fall today fall FINDINGS: Median sternotomy wires and bracket. Query a nondisplaced left 8th lateral rib fracture. No pneumothorax. Lung zone aerated. IMPRESSION: Query a nondisplaced left 8th lateral rib fracture. Interpreted by: Isadora Martino Preliminary Report By: Isadora Martino Electronically signed By Isadora Martino Dictated Date: 09/11/2024 10:54:04 AM Prelim Date: 09/11/2024 10:55:51 AM Sign Date: 09/11/2024 10:55:51 AM Ordering Provider: CAROLYN Rainey [facility] CBC W Auto Differential pane l (Bld)on 09-10-2024 Basophils (Bld) [#/Vol] 0.03 10*3/uL Normal <0.11 [facility] [place] [facility] Comment on above: Order Comment: Speci men Type: BLOOD SPECIMENOrdering Facility: [facility] Address: [address] [place] [address] Performed By: #### 5 7021-8 ####[facility]ORYCLIA [id number] [place] [address] [place] Basophils/100 WBC (Bld) 0.7 % Normal [facility] [place] [facility] Comment on above: Order Comment: Speci men Type: BLOOD SPECIMENOrdering Facility: [facility] Address: [address] [place] [address] Performed By: #### 5 7021-8 ####[facility]ATORYCLIA [id number] [place] [address] [place] Differential cell count method Nom (Bld) Auto Normal [facility] [place] [facility] Comment on above: Order Comment: Speci men Type: BLOOD SPECIMENOrdering Facility: [facility] Address: [address] [place] [address] Performed By: #### 5 7021-8 ####[facility]ORYCLIA [id number] [place] [address] [place] Eosinophils (Bld) [#/Vol] 0.17 10*3/uL Normal <0.46 [facility] [place] [facility] Comment on above: Order Comment: Speci men Type: BLOOD SPECIMENOrdering Facility: [facility] Address: [address] [place] [address] Performed By: #### 5 7021-8 ####[facility]ATORYCLIA [id number] [address] [place] Eosinophils/100 WBC (Bld) 3.9 % Normal [facility] [place] [facility] Comment on above: Order Comment: Speci men Type: BLOOD SPECIMENOrdering Facility: [facility] Address: [address] [place] [address] Performed By: #### 5 7021-8 ####[facility]ORYCLIA [id number] [address] [place] Erythrocyte distribution width (RBC) [Ratio] 14.9 % Normal 11.5-15.0 [facility] [place] [facility] Comment on above: Order Comment: Speci men Type: BLOOD SPECIMENOrdering Facility: [facility] Address: [address] [place] [address] Performed By: #### 5 7021-8 ####[facility]ATORYCLIA [id number] [address] [place] Hematocrit (Bld) [Volume fraction] 23.4 % Low 39.0-51.0 [facility] [place] [facility] Comment on above: Order Comment: Speci men Type: BLOOD SPECIMENOrdering Facility: [facility] Address: [address] [place] [address] Performed By: #### 5 7021-8 ####[facility]ATORYCLIA [id number] [place] [address] [place] Hemoglobin (Bld) [Mass/Vol] 7.9 g/dL Low 13.0-17.0 [facility] [place] [facility] Comment on above: Order Comment: Speci men Type: BLOOD SPECIMENOrdering Facility: [facility] Address: [address] [place] [address] Performed By: #### 5 7021-8 ####[facility]ORYCLIA [id number] [address] OF PRECIOUS Immature granulocytes (Bld) [#/Vol] 10*3/uL Normal <0.10 [facility] [place] [facility] Comment on above: Order Comment: Speci men Type: BLOOD SPECIMENOrdering Facility: [facility] Address: [address] [place] [address] Performed By: #### 5 7021-8 ####[facility]ORYCLIA [id number] [address] Immature granulocytes/100 WBC (Bld) 0.5 % Normal [facility] [place] [facility] Comment on above: Order Comment: Speci men Type: BLOOD SPECIMENOrdering Facility: [facility] Address: [address] [place] [address] Performed By: #### 5 7021-8 ####[facility]ORYCLIA [id number] [address] OF PRECI[place] Lymphocytes (Bld) [#/Vol] 1.18 10*3/uL Normal 1.00-4.00 [facility] [place] [facility] Comment on above: Order Comment: Speci men Type: BLOOD SPECIMENOrdering Facility: [facility] Address: [address] [place] [address] Performed By: #### 5 7021-8 ####[facility]ORYCLIA [id number] [address] Lymphocytes/100 WBC (Bld) 26.9 % Normal [facility] [place] [facility] Comment on above: Order Comment: Speci men Type: BLOOD SPECIMENOrdering Facility: [facility] Address: [address] [place] [address] Performed By: #### 5 7021-8 ####[facility]ATORYCLIA [id number] [address] STATES [facility] MCH (RBC) [Entitic mass] 29.9 pg Normal 26.0-34.0 [facility] [place] [facility] Comment on above: Order Comment: Speci men Type: BLOOD SPECIMENOrdering Facility: [facility] Address: [address] [place] [address] Performed By: #### 5 7021-8 ####[facility]ORATORYCLIA [id number] [address] STATES [facility] MCHC (RBC) [Mass/Vol] 33.8 g/dL Normal 30.5-36.0 [facility] Comment on above: Order Comment: Speci men Type: BLOOD SPECIMENOrdering Facility: [facility] Address: [address] [place] [address] Performed By: #### 5 7021-8 ####[facility]ATORYCLIA [id number] [place] [address] [place] MCV (RBC) [Entitic vol] 88.6 fL Normal 80.0-100.0 [facility] [place] [facility] Comment on above: Order Comment: Speci men Type: BLOOD SPECIMENOrdering Facility: [facility] Address: [address] [place] [address] Performed By: #### 5 7021-8 ####[facility]ATORYCLIA [id number] [place] [address] [place] Monocytes (Bld) [#/Vol] 0.33 10*3/uL Normal <0.87 [facility] [place] [facility] Comment on above: Order Comment: Speci men Type: BLOOD SPECIMENOrdering Facility: [facility] Address: [address] [place] [address] Performed By: #### 5 7021-8 ####[facility]ORATORYCLIA [id number] [place] [address] [place] Monocytes/100 WBC (Bld) 7.5 % Normal [facility] [place] [facility] Comment on above: Order Comment: Speci men Type: BLOOD SPECIMENOrdering Facility: [facility] Address: [address] [place] [address] Performed By: #### 5 7021-8 ####[facility]ATORYCLIA [id number] [place] [address] [place] Neutrophils (Bld) [#/Vol] 2.65 10*3/uL Normal 1.45-7.50 [facility] [place] [facility] Comment on above: Order Comment: Speci men Type: BLOOD SPECIMENOrdering Facility: [facility] Address: [address] [place] [address] Performed By: #### 5 7021-8 ####[facility]ORYCLIA [id number] [place] [address] [place] Neutrophils/100 WBC (Bld) 60.5 % Normal [facility] [place] [facility] Comment on above: Order Comment: Speci men Type: BLOOD SPECIMENOrdering Facility: [facility] Address: [address] [place] [address] Performed By: #### 5 7021-8 ####[facility]ORATORYCLIA [id number] [place] [address] [place] Nucleated RBC (Bld) [#/Vol] 10*3/uL Normal <0.01 [facility] [place] [facility] Comment on above: Order Comment: Speci men Type: BLOOD SPECIMENOrdering Facility: [facility] Address: [address] [place] [address] Performed By: #### 5 7021-8 ####[facility]ORATORYCLIA [id number] [place] [address] [place] Nucleated RBC/100 WBC (Bld) [Ratio] 0.0 /100 WBC Normal [facility] [place] [facility] Comment on above: Order Comment: Speci men Type: BLOOD SPECIMENOrdering Facility: [facility] Address: [address] [place] [address] Performed By: #### 5 7021-8 ####[facility]ATORYCLIA [id number] [place] [address] [place] Platelet mean volume (Bld) [Entitic vol] 10.8 fL Normal 9.0-12.7 [facility] [place] [facility] Comment on above: Order Comment: Speci men Type: BLOOD SPECIMENOrdering Facility: [facility] Address: [address] [place] [address] Performed By: #### 5 7021-8 ####[facility]ORATORYCLIA [id number] [place] [address] [place] Platelets (Bld) [#/Vol] 167 10*3/uL Normal 150-400 [facility] [place] [facility] Comment on above: Order Comment: Speci men Type: BLOOD SPECIMENOrdering Facility: [facility] Address: [address] [place] [address] Performed By: #### 5 7021-8 ####[facility]ORATORYCLIA [id number] [place] [address] [place] RBC (Bld) [#/Vol] 2.64 10*6/uL Low 4.20-6.00 [facility] Comment on above: Order Comment: Speci men Type: BLOOD SPECIMENOrdering Facility: [facility] Address: [place] [id number] Performed By: #### 5 7021-8 ####[facility]ORATORYCLIA [id number] [address] WBC (Bld) [#/Vol] 4.38 10*3/uL Normal 3.70-11.00 [facility] Comment on above: Order Comment: Speci men Type: BLOOD SPECIMENOrdering Facility: [facility] Address: [facility] [place] [address] Performed By: #### 5 7021-8 ####[facility]ORATORYCLIA [id number] [address] CNDSon 09-10-2024 CNDS HNO ID: [id number] Author: KHANG MAR MD Service: Hospital Medicine Author Type: Physician Type: Discharge Summary Filed: 09/10/2024 15:32 Note Text: DISCHARGE SUMMARY PATIENT NAME: Homero Mei ADMISSION DATE: 09/08/2024 DISCHARGE DATE: 09/10/2024 ATTENDING PHYSICIAN: No att. providers found Code Status: Full Code Highest Readmission Risk Score: 18 The 30 day readmissions risk score is derived from an internally validated risk model which evaluates patient level characteristics, utilization history, medication orders and lab results up until the day of discharge. Patients with a score of 39 or above are considered highest risk for readmission. Specific patient level drivers will be listed at the bottom of the summary. CONSULTING TEAMS DURING HOSPITALIZATION: None Treatment Team: Consulting: Saranya Vicente MD Primary Service: 2, [facility] REASON FOR HOSPITALIZATION: Bright red blood per rectum FINAL DIAGNOSIS: Post-Polypectomy Bleed Active Hospital Problems Diagnosis POA GI bleed Yes Hyperlipidemia Yes Essential hypertension Yes Postoperative atrial fibrillation (HCC) Yes Chronic heart failure with preserved ejection fraction (HCC) Yes Coronary artery disease involving [place]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[place] heart without angina pectoris Yes BPH (benign prostatic hyperplasia) Yes Alzheimer's dementia without behavioral disturbance, psychotic disturbance, mood disturbance, or anxiety, unspecified dementia severity, unspecified timing of dementia onset ([facility]) Yes Iron deficiency anemia secondary to inadequate dietary iron intake Yes CHRISTIANO (obstructive sleep apnea) Yes Resolved Hospital Problems No resolved problems to display. HOSPITAL COURSE: Homero Mei is a 78-year-old male with a past medical history of hyperlipidemia, dermatitis, IBS, hypertension, degenerative disc disease, CHRISTIANO, iron deficiency anemia, Alzheimer's dementia, BPH, CAD, history of CHF, history of A-fib presented to the emergency department with complaints of bright red blood per rectum. Of note patient had a colonoscopy with Dr. Andino on 09/01 where polyps were removed. Patient has been taking his Eliquis. He was monitored with no further bleeding and stable for discharge. He may resume eliquis on Sunday. Transitions of Care Critical Issues: SPECIALIST FOLLOW-UP: Surgery LABS AND PROCEDURES PENDING AT DISCHARGE: No pending results. PATIENT CONDITION AT DISCHARGE: Stable DISCHARGE DISPOSITION: Assisted Living Facility GENERAL: Alert, no distress, cooperative SKIN: Skin color, texture, turgor normal. No rashes or lesions. HEAD/SINUSES: No significant findings EYES: EOMI LUNGS: Lungs clear to auscultation, Good diaphragmatic excursion CARDIAC: Normal S1 and S2; no rubs, murmurs, or gallops ABDOMEN: Abdomen soft, non-tender, BS normal, No masses or organomegaly EXTREMITIES: Normal exam of the extremities NEURO: Grossly normal cognition, motor function, and cranial nerves III-XII DIET: Resume your pre-hospital diet ACTIVITY: Resume pre-hospital activity ALLERGIES No Known Allergies DISCHARGE MEDICATION: Medication List CHANGE how you take these medications ELIQUIS 5 mg tab(s) Generic drug: apixaban Take 1 tablet by mouth two times a day. Patient should start on September 12, 2024. Start taking on: September 12, 2024 What changed: These instructions start on September 12, 2024. If you are unsure what to do until then, ask your doctor or other care provider. CONTINUE taking these medications ascorbic acid (vitamin C) 500 mg tablet Commonly known as: VITAMIN C Take 1 tablet by mouth once daily. aspirin, enteric coated 81 mg EC tablet Commonly known as: ASPIRIN, ENTERIC COATED Take 1 tablet by mouth once daily. atorvastatin 40 mg tablet Commonly known as: LIPITOR Take 1 tablet by mouth once daily. cholecalciferol 1,000 unit Tab tablet Commonly known as: VITAMIN D3 cyanocobalamin 1,000 mcg Tab Commonly known as: VITAMIN B-12 Take 1 tablet by mouth once daily. docusate sodium 100 mg capsule Commonly known as: COLACE Take 1 capsule by mouth two times a day as needed for constipation. donepezil 10 mg tablet Commonly known as: ARICEPT Take 1 tablet by mouth daily with breakfast. ferrous sulfate 325 mg (65 mg iron) tablet fluticasone 50 mcg/actuation nasal spray Commonly known as: FLONASE folic acid 1 mg tablet Take 1 tablet by mouth once daily. furosemide 20 mg tablet Commonly known as: LASIX Take 1 tablet by mouth once daily. latanoprost 0.005 % ophthalmic solution Commonly known as: XALATAN lisinopril 40 mg tablet Commonly known as: ZESTRIL magnesium oxide 400 mg (241.3 mg magnesium) tablet Commonly known as: MAG-OX Take 1 tablet by mouth once daily. melatonin 3 mg capsules Take 1 capsule by mouth at bedtime as needed for insomnia. memantine 5 mg tablet Commonly known as: NAMENDA Take 1 tablet by mouth once shellie (more content not included)... Normal [facility] [place] [facility] Renal function 2000 panelon 09-10-2024 Albumin [Mass/Vol] 3.7 g/dL Low 3.9-4.9 [facility] [place] [facility] Comment on above: Order Comment: Rachid sanchez Type: BLOOD SPECIMENOrdering Facility: [facility] Address: [address] [place] [address] Performed By: #### 2 4362-6 ####[facility]ORATORYCLIA [id number] [address] STATES OF [facility] Anion gap [Moles/Vol] 11 mmol/L Normal 8-15 [facility] Comment on above: Order Comment: Rachid sanchez Type: BLOOD SPECIMENOrdering Facility: [facility] Address: [address] [place] [address] Performed By: #### 2 4362-6 ####[facility]ORATORYCLIA [id number] [address] OF [facility] Calcium [Mass/Vol] 8.5 mg/dL Normal 8.5-10.2 [facility] Comment on above: Order Comment: Rachid sanchez Type: BLOOD SPECIMENOrdering Facility: [facility] Address: [address] [place] [address] Performed By: #### 2 4362-6 ####[facility] LABORATORYCLIA [id number] [place] [address] [place] Chloride [Moles/Vol] 110 mmol/L High 98-107 [facility] Comment on above: Order Comment: Speci men Type: BLOOD SPECIMENOrdering Facility: [facility] Address: [address] [place] [address] Performed By: #### 2 4362-6 ####[facility] LABORATORYCLIA [id number] [place] [address] [place] CO2 [Moles/Vol] 21 mmol/L Low 22-30 [facility] Comment on above: Order Comment: Speci men Type: BLOOD SPECIMENOrdering Facility: [facility] Address: [address] [place] [address] Performed By: #### 2 4362-6 ####[facility] LABORATORYCLIA [id number] [place] [address] [place] Creatinine [Mass/Vol] 1.05 mg/dL Normal 0.73-1.22 [facility] Comment on above: Order Comment: Speci men Type: BLOOD SPECIMENOrdering Facility: [facility] Address: [address] [place] [address] Performed By: #### 2 4362-6 ####[facility] LABORATORYCLIA [id number] [place] [address] [place] eGFRcr SerPlBld CKD-EPI 2020 74 mL/min/1.73m??? Normal >=60 [facility] Comment on above: Order Comment: Speci men Type: BLOOD SPECIMENOrdering Facility: [facility] Address: [address] [place] [address] Result Comment: Teri mated Glomerular Filtration Rate (eGFR) is calculated using the 2020 CKD-EPI creatinine equation. This equation utilizes serum creatinine, sex, and age as parameters. The creatinine assay has traceable calibration to isotope dilution-mass spectrometry. Refer to KDIGO guidelines for clinical interpretation. In patients with unstable renal function, e.g. those with acute kidney injury, the eGFR may not accurately reflect actual GFR. Performed By: #### 2 4362-6 ####[facility] LABORATORYCLIA [id number] [place] [address] [place] Glucose [Mass/Vol] 106 mg/dL High 74-99 [facility] Comment on above: Order Comment: Rachid laura Type: BLOOD SPECIMENOrdering Facility: [facility] Address: [address] [place] [address] Result Comment: The [place] [employer] (ADA) provides guidance for cutoff values for fasting glucose and random glucose. The ADA defines fasting as no caloric intake for at least 8 hours. Fasting plasma glucose results between 100 to 125 mg/dL indicate increased risk for diabetes (prediabetes). Fasting plasma glucose results greater than or equal to 126 mg/dL meet the criteria for diagnosis of diabetes. In the absence of unequivocal hyperglycemia, results should be confirmed by repeat testing. In a patient with classic symptoms of hyperglycemia or hyperglycemic crisis, random plasma glucose results greater than or equal to 200 mg/dL meet the criteria for diagnosis of diabetes. Reference: Standards of Medical Care in Diabetes 2016, [place] [employer]. Diabetes Care. 2016.39(Suppl 1). Performed By: #### 2 4362-6 ####[facility] LABORATORYCLIA [id number] [place] [id number] [place] Phosphate [Mass/Vol] 3.6 mg/dL Normal 2.7-4.8 [facility] Comment on above: Order Comment: Rachid sanchez Type: BLOOD SPECIMENOrdering Facility: [facility] Address: [address] [place] [address] Performed By: #### 2 4362-6 ####[facility] LABORATORYCLIA [id number] [place] [id number] [place] Potassium [Moles/Vol] 3.6 mmol/L Low 3.7-5.1 [facility] Comment on above: Order Comment: Rachid laura Type: BLOOD SPECIMENOrdering Facility: [facility] Address: [address] [place] [address] Performed By: #### 2 4362-6 ####[facility] LABORATORYCLIA [id number] [place] [id number] [place] Sodium [Moles/Vol] 142 mmol/L Normal 136-144 [facility] Comment on above: Order Comment: Speci men Type: BLOOD SPECIMENOrdering Facility: [facility] Address: [address] [place] [address] Performed By: #### 2 4362-6 ####[facility] LABORATORYCLIA [id number] [address] Urea nitrogen [Mass/Vol] 19 mg/dL Normal 9-24 [facility] Comment on above: Order Comment: Speci men Type: BLOOD SPECIMENOrdering Facility: [facility] Address: [address] [place] [address] Performed By: #### 2 4362-6 ####[facility] LABORATORYCLIA [id number] [address] CBC W Auto Differential pane l (Bld)on 09-09-2024 Basophils (Bld) [#/Vol] 0.03 10*3/uL Normal <0.11 [facility] Comment on above: Order Comment: Speci men Type: BLOOD SPECIMENOrdering Facility: [facility] Address: [address] [place] [address] Performed By: #### 5 7021-8 ####[facility] LABORATORYCLIA [id number] [address] STATES [facility] Basophils/100 WBC (Bld) 0.6 % Normal [facility] Comment on above: Order Comment: Speci men Type: BLOOD SPECIMENOrdering Facility: [facility] Address: [address] [place] [address] Performed By: #### 5 7021-8 ####[facility] LABORATORYCLIA [id number] [address] Differential cell count method Nom (Bld) Auto Normal [facility] Comment on above: Order Comment: Speci men Type: BLOOD SPECIMENOrdering Facility: [facility] Address: [address] [place] [address] Performed By: #### 5 7021-8 ####[facility] LABORATORYCLIA [id number] [address] Eosinophils (Bld) [#/Vol] 0.21 10*3/uL Normal <0.46 [facility] Comment on above: Order Comment: Speci men Type: BLOOD SPECIMENOrdering Facility: [facility] Address: [address] [place] [address] Performed By: #### 5 7021-8 ####[facility] LABORATORYCLIA [id number] [address] Eosinophils/100 WBC (Bld) 4.0 % Normal [facility] Comment on above: Order Comment: Speci men Type: BLOOD SPECIMENOrdering Facility: [facility] Address: [address] [place] [address] Performed By: #### 5 7021-8 ####[facility] LABORATORYCLIA [id number] [address] Erythrocyte distribution width (RBC) [Ratio] 15.0 % Normal 11.5-15.0 [facility] Comment on above: Order Comment: Speci men Type: BLOOD SPECIMENOrdering Facility: [facility] Address: [address] [place] [address] Performed By: #### 5 7021-8 ####[facility] LABORATORYCLIA [id number] [address] Hematocrit (Bld) [Volume fraction] 23.0 % Low 39.0-51.0 [facility] Comment on above: Order Comment: Speci men Type: BLOOD SPECIMENOrdering Facility: [facility] Address: [address] [place] [address] Performed By: #### 5 7021-8 ####[facility] LABORATORYCLIA [id number] [address] Hemoglobin (Bld) [Mass/Vol] 7.7 g/dL Low 13.0-17.0 [facility] Comment on above: Order Comment: Speci men Type: BLOOD SPECIMENOrdering Facility: [facility] Address: [address] [place] [address] Performed By: #### 5 7021-8 ####[facility] LABORATORYCLIA [id number] [address] PRECIOUS Immature granulocytes (Bld) [#/Vol] 10*3/uL Normal <0.10 [facility] Comment on above: Order Comment: Speci men Type: BLOOD SPECIMENOrdering Facility: [facility] Address: [address] [place] [address] Performed By: #### 5 7021-8 ####[facility] LABORATORYCLIA [id number] [address] [place] Immature granulocytes/100 WBC (Bld) 0.2 % Normal [facility] Comment on above: Order Comment: Speci men Type: BLOOD SPECIMENOrdering Facility: [facility] Address: [address] [place] [address] Performed By: #### 5 7021-8 ####[facility] LABORATORYCLIA [id number] [place] [address] [place] Lymphocytes (Bld) [#/Vol] 1.75 10*3/uL Normal 1.00-4.00 [facility] Comment on above: Order Comment: Speci men Type: BLOOD SPECIMENOrdering Facility: [facility] Address: [address] [place] [address] Performed By: #### 5 7021-8 ####[facility] LABORATORYCLIA [id number] [address] [place] Lymphocytes/100 WBC (Bld) 33.4 % Normal [facility] Comment on above: Order Comment: Speci men Type: BLOOD SPECIMENOrdering Facility: [facility] Address: [address] [place] [address] Performed By: #### 5 7021-8 ####[facility] LABORATORYCLIA [id number] [place] [address] [place] MCH (RBC) [Entitic mass] 30.3 pg Normal 26.0-34.0 [facility] Comment on above: Order Comment: Speci men Type: BLOOD SPECIMENOrdering Facility: [facility] Address: [address] [place] [address] Performed By: #### 5 7021-8 ####[facility] LABORATORYCLIA [id number] [place] [address] [place] MCHC (RBC) [Mass/Vol] 33.5 g/dL Normal 30.5-36.0 [facility] Comment on above: Order Comment: Speci men Type: BLOOD SPECIMENOrdering Facility: [facility] Address: [address] [place] [address] Performed By: #### 5 7021-8 ####[facility] LABORATORYCLIA [id number] [place] [address] [place] MCV (RBC) [Entitic vol] 90.6 fL Normal 80.0-100.0 [facility] Comment on above: Order Comment: Speci men Type: BLOOD SPECIMENOrdering Facility: [facility] Address: [address] [place] [address] Performed By: #### 5 7021-8 ####[facility] LABORATORYCLIA [id number] [place] [address] [place] Monocytes (Bld) [#/Vol] 0.45 10*3/uL Normal <0.87 [facility] Comment on above: Order Comment: Speci men Type: BLOOD SPECIMENOrdering Facility: [facility] Address: [address] [place] [address] Performed By: #### 5 7021-8 ####[facility] LABORATORYCLIA [id number] [address] [place] Monocytes/100 WBC (Bld) 8.6 % Normal [facility] Comment on above: Order Comment: Speci men Type: BLOOD SPECIMENOrdering Facility: [facility] Address: [address] [place] [address] Performed By: #### 5 7021-8 ####[facility] LABORATORYCLIA [id number] [place] [address] [place] Neutrophils (Bld) [#/Vol] 2.79 10*3/uL Normal 1.45-7.50 [facility] Comment on above: Order Comment: Speci men Type: BLOOD SPECIMENOrdering Facility: [facility] Address: [address] [place] [address] Performed By: #### 5 7021-8 ####[facility] LABORATORYCLIA [id number] [address] OF [place]CI[place] Neutrophils/100 WBC (Bld) 53.2 % Normal [facility] Comment on above: Order Comment: Speci men Type: BLOOD SPECIMENOrdering Facility: [facility] Address: [address] [place] [address] Performed By: #### 5 7021-8 ####[facility] LABORATORYCLIA [id number] [place] [address] [place] Nucleated RBC (Bld) [#/Vol] 10*3/uL Normal <0.01 [facility] Comment on above: Order Comment: Speci men Type: BLOOD SPECIMENOrdering Facility: [facility] Address: [address] [place] [address] Performed By: #### 5 7021-8 ####[facility] LABORATORYCLIA [id number] [place] [address] [place] Nucleated RBC/100 WBC (Bld) [Ratio] 0.0 /100 WBC Normal [facility] Comment on above: Order Comment: Speci men Type: BLOOD SPECIMENOrdering Facility: [facility] Address: [address] [place] [address] Performed By: #### 5 7021-8 ####[facility] LABORATORYCLIA [id number] [place] [address] [place] Platelet mean volume (Bld) [Entitic vol] 11.4 fL Normal 9.0-12.7 [facility] Comment on above: Order Comment: Speci men Type: BLOOD SPECIMENOrdering Facility: [facility] Address: [address] [place] [address] Performed By: #### 5 7021-8 ####[facility] LABORATORYCLIA [id number] [place] [address] [place] Platelets (Bld) [#/Vol] 148 10*3/uL Low 150-400 [facility] Comment on above: Order Comment: Speci men Type: BLOOD SPECIMENOrdering Facility: [facility] Address: [address] [place] [address] Performed By: #### 5 7021-8 ####[facility] LABORATORYCLIA [id number] [address] OF [place] RBC (Bld) [#/Vol] 2.54 10*6/uL Low 4.20-6.00 [facility] Comment on above: Order Comment: Speci men Type: BLOOD SPECIMENOrdering Facility: [facility] Address: [address] [place] [address] Performed By: #### 5 7021-8 ####[facility] LABORATORYCLIA [id number] [place] [address] [place] WBC (Bld) [#/Vol] 5.24 10*3/uL Normal 3.70-11.00 [facility] Comment on above: Order Comment: Speci men Type: BLOOD SPECIMENOrdering Facility: [facility] Address: [address] [place] [address] Performed By: #### 5 7021-8 ####[facility] LABORATORYCLIA [id number] [address] CBC panel Auto (Bld)on 09-09 Erythrocyte distribution width (RBC) [Ratio] 14.9 % Normal 11.5-15.0 [facility] Comment on above: Order Comment: Speci men Type: BLOOD SPECIMENOrdering Facility: [facility] Address: [address] [place] [address] Performed By: #### 5 8410-2 ####[facility] LABORATORYCLIA [id number] [address] [facility] Hematocrit (Bld) [Volume fraction] 22.3 % Low 39.0-51.0 [facility] Comment on above: Order Comment: Speci men Type: BLOOD SPECIMENOrdering Facility: [facility] Address: [address] [place] [address] Performed By: #### 5 8410-2 ####[facility] LABORATORYCLIA [id number] [address] Hemoglobin (Bld) [Mass/Vol] 7.3 g/dL Low 13.0-17.0 [facility] Comment on above: Order Comment: Speci men Type: BLOOD SPECIMENOrdering Facility: [facility] Address: [address] [place] [address] Performed By: #### 5 8410-2 ####[facility] LABORATORYCLIA [id number] [address] MCH (RBC) [Entitic mass] 29.4 pg Normal 26.0-34.0 [facility] Comment on above: Order Comment: Speci men Type: BLOOD SPECIMENOrdering Facility: [facility] Address: [address] [place] [address] Performed By: #### 5 8410-2 ####[facility] LABORATORYCLIA [id number] [address] MCHC (RBC) [Mass/Vol] 32.7 g/dL Normal 30.5-36.0 [facility] Comment on above: Order Comment: Speci men Type: BLOOD SPECIMENOrdering Facility: [facility] Address: [address] [place] [address] Performed By: #### 5 8410-2 ####[facility] LABORATORYCLIA [id number] [address] MCV (RBC) [Entitic vol] 89.9 fL Normal 80.0-100.0 [facility] Comment on above: Order Comment: Speci men Type: BLOOD SPECIMENOrdering Facility: [facility] Address: [address] [place] [address] Performed By: #### 5 8410-2 ####[facility] LABORATORYCLIA [id number] [address] Nucleated RBC (Bld) [#/Vol] 10*3/uL Normal <0.01 [facility] Comment on above: Order Comment: Speci men Type: BLOOD SPECIMENOrdering Facility: [facility] Address: [address] [place] [address] Performed By: #### 5 8410-2 ####[facility] LABORATORYCLIA [id number] [address] Platelet mean volume (Bld) [Entitic vol] 10.7 fL Normal 9.0-12.7 [facility] Comment on above: Order Comment: Speci men Type: BLOOD SPECIMENOrdering Facility: [facility] Address: [address] [place] [address] Performed By: #### 5 8410-2 ####[facility] LABORATORYCLIA [id number] [address] PRECI[place] Platelets (Bld) [#/Vol] 152 10*3/uL Normal 150-400 [facility] Comment on above: Order Comment: Speci men Type: BLOOD SPECIMENOrdering Facility: [facility] Address: [address] [place] [address] Performed By: #### 5 8410-2 ####[facility] LABORATORYCLIA [id number] [address] OF PRECI[place] RBC (Bld) [#/Vol] 2.48 10*6/uL Low 4.20-6.00 [facility] Comment on above: Order Comment: Speci men Type: BLOOD SPECIMENOrdering Facility: [facility] Address: [address] [place] [address] Performed By: #### 5 8410-2 ####[facility] LABORATORYCLIA [id number] [address] WBC (Bld) [#/Vol] 5.41 10*3/uL Normal 3.70-11.00 [facility] Comment on above: Order Comment: Speci men Type: BLOOD SPECIMENOrdering Facility: [facility] Address: [address] [place] [address] Performed By: #### 5 8410-2 ####[facility] LABORATORYCLIA [id number] [address] Erythrocyte distribution width (RBC) [Ratio] 14.9 % Normal 11.5-15.0 [facility] Comment on above: Order Comment: Speci men Type: BLOOD SPECIMENOrdering Facility: [facility] Address: [address] [place] [address] Performed By: #### 5 8410-2 ####[facility] LABORATORYCLIA [id number] [address] Hematocrit (Bld) [Volume fraction] 22.6 % Low 39.0-51.0 [facility] Comment on above: Order Comment: Speci men Type: BLOOD SPECIMENOrdering Facility: [facility] Address: [address] [place] [address] Performed By: #### 5 8410-2 ####[facility] LABORATORYCLIA [id number] [address] Hemoglobin (Bld) [Mass/Vol] 7.6 g/dL Low 13.0-17.0 [facility] Comment on above: Order Comment: Speci men Type: BLOOD SPECIMENOrdering Facility: [facility] Address: [address] [place] [address] Performed By: #### 5 8410-2 ####[facility] LABORATORYCLIA [id number] [address] MCH (RBC) [Entitic mass] 29.8 pg Normal 26.0-34.0 [facility] Comment on above: Order Comment: Speci men Type: BLOOD SPECIMENOrdering Facility: [facility] Address: [address] [place] [address] Performed By: #### 5 8410-2 ####[facility] LABORATORYCLIA [id number] [address] MCHC (RBC) [Mass/Vol] 33.6 g/dL Normal 30.5-36.0 [facility] Comment on above: Order Comment: Speci men Type: BLOOD SPECIMENOrdering Facility: [facility] Address: [address] [place] [address] Performed By: #### 5 8410-2 ####[facility] LABORATORYCLIA [id number] [address] MCV (RBC) [Entitic vol] 88.6 fL Normal 80.0-100.0 [facility] Comment on above: Order Comment: Speci men Type: BLOOD SPECIMENOrdering Facility: [facility] Address: [address] [place] [address] Performed By: #### 5 8410-2 ####[facility] LABORATORYCLIA [id number] [place] [address] [place] Nucleated RBC (Bld) [#/Vol] 10*3/uL Normal <0.01 [facility] Comment on above: Order Comment: Speci men Type: BLOOD SPECIMENOrdering Facility: [facility] Address: [address] [place] [address] Performed By: #### 5 8410-2 ####[facility] LABORATORYCLIA [id number] [place] [address] [place] Platelet mean volume (Bld) [Entitic vol] 10.8 fL Normal 9.0-12.7 [facility] Comment on above: Order Comment: Speci men Type: BLOOD SPECIMENOrdering Facility: [facility] Address: [address] [place] [address] Performed By: #### 5 8410-2 ####[facility] LABORATORYCLIA [id number] [place] [address] [place] Platelets (Bld) [#/Vol] 149 10*3/uL Low 150-400 [facility] Comment on above: Order Comment: Speci men Type: BLOOD SPECIMENOrdering Facility: [facility] Address: [address] [place] [address] Performed By: #### 5 8410-2 ####[facility] LABORATORYCLIA [id number] [place] [address] [place] RBC (Bld) [#/Vol] 2.55 10*6/uL Low 4.20-6.00 [facility] Comment on above: Order Comment: Speci men Type: BLOOD SPECIMENOrdering Facility: [facility] Address: [address] [place] [address] Performed By: #### 5 8410-2 ####[facility] LABORATORYCLIA [id number] [place] [id number] [place] WBC (Bld) [#/Vol] 6.46 10*3/uL Normal 3.70-11.00 [facility] Comment on above: Order Comment: Speci men Type: BLOOD SPECIMENOrdering Facility: [facility] Address: [address] [place] [address] Performed By: #### 5 8410-2 ####[facility] LABORATORYCLIA [id number] [place] [address] [place] CNPTOUTREACHon 09-09-2024 CNPTOUTREACH Normal [facility] CONSULTon 09-09-2024 CONSULT HNO ID: [id number] Author: FRANCISCA VAZQUZE MD Service: General Surgery Author Type: Physician Type: Consults Filed: 09/09/2024 07:45 Note Text: SURGERY INITIAL CONSULT NOTE SERVICE DATE: 09/09/2024 SERVICE TIME: 7:43 AM REASON FOR CONSULT: Post polypectomy bleed REQUESTING PHYSICIAN: Hospitalist PRIMARY CARE PHYSICIAN: Lenin Chaudhary MD Subjective Mr. Mei is a 78 year old male who presents for with a post polypectomy bleed. I performed colonoscopy on September 01 he had 3 smaller polyps removed but an 18 mm polyp that was sessile removed with hot snare from the hepatic flexure. Last night the patient noted that he had bloody bowel movements. Patient present emergency room with these complaints. He takes Eliquis. His hemoglobin on August 25 was 11.6. Hemoglobin last night was 8.4 and hemoglobin this morning is 7.7. The patient notes no further rectal bleeding. FUNCTIONAL STATUS: Independent PAST MEDICAL HISTORY Diagnosis Date Alzheimer's dementia without behavioral disturbance, psychotic disturbance, mood disturbance, or anxiety, unspecified dementia severity, unspecified timing of dementia onset (HCC) Ascending aorta dilatation borderline Atrial fibrillation (HCC) Benign prostatic hyperplasia with urinary frequency Bilateral carpal tunnel syndrome s/p release on right Bilateral inguinal hernia s/p mesh BPH (benign prostatic hyperplasia) CAD (coronary artery disease) 12/21/2023 abnormal stress test. 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 Iqbal on 02/28/24 Scalp psoriasis Unspecified essential hypertension Upper GI bleed 05/2023 Vitamin D insufficiency PAST SURGICAL HISTORY Procedure Laterality Date BACK SURGERY HX CABG (3) VEIN GRAFTS AND ARTERIAL GRAFT(S) 02/28/2024 CABG x 3 (Scales-LAD, SVG- PDA, SVG- OM1) with Dr. Iqbal on 02/28/24 COLON SURGERY HX COLONOSCOPY FLX DX W/COLLJ SPEC WHEN PFRMD , 11/19, 01/24, 01/29 COLONOSCOPY FLX DX W/COLLJ SPEC WHEN PFRMD 03/22/2015 Colonoscopy-repeat 5 years COLONOSCOPY FLX DX W/COLLJ SPEC WHEN PFRMD 11/23/2020 COLONOSCOPY GEN ANES 04/12/2020 Repeat in 1 year COLONOSCOPY GEN ANES 04/26/2020 3 polyps removed. 40 mm, 5 mm, 5mm. repeat in 6 months. DISKECTOMY, LUMBAR, SINGLE SP 2005 HERNIA REPAIR HX mesh INGUINAL HERNIA REPAIR HX 07/19/2010 bilateral inguinal hernia repair with mesh NEUROPLASTY AND/TRANSPOS MEDIAN NRV CARPAL TUNNE Right 03/26/2015 Carpal tunnel decomp right PAST SURGICAL HISTORY OF Left 04/10/2019 arthroscopic knee for torn meniscus RHINP PRIM LATANDALAR CRTLGSAND/ELVTN NASAL TI 2008 Rhinoplasty SKIN BIOPSY HX FAMILY HISTORY Problem Relation Age of Onset Heart Mother CHF Hypertension Mother Stroke Father Hypertension Father Social History Tobacco Use Smoking status: Never Passive exposure: Never Smokeless tobacco: Never Vaping Use Vaping status: Never Used Substance Use Topics Alcohol use: Not Currently Drug use: Never furosemide (LASIX) 20 mg tablet, Take 1 tablet by mouth once daily., Disp: 90 tablet, Rfl: , 09/07/2024 metoprolol tartrate, short acting, (LOPRESSOR) 25 mg tablet, Take 0.5 tablets by mouth two times a day. Hold for HR <60 and/or SBP <100, Disp: 90 tablet, Rfl: 1, 09/07/2024 atorvastatin (LIPITOR) 40 mg tablet, Take 1 tablet by mouth once daily., Disp: 90 tablet, Rfl: 1, 09/07/2024 donepezil (ARICEPT) 10 mg tablet, Take 1 tablet by mouth daily with breakfast., Disp: 90 tablet, Rfl: 1, 09/07/2024 cyanocobalamin (VITAMIN B-12) 1,000 mcg tab, Take 1 tablet by mouth once daily., Disp: 30 tablet, Rfl: 2, 09/07/2024 memantine (NAMENDA) 5 mg tablet, Take 1 tablet by mouth once daily., Disp: 90 tablet, Rfl: 1, 09/07/2024 ELIQUIS 5 mg tab(s), Take 5 mg by mouth two times a day., Disp: , Rfl: , 09/07/2024 lisinopril (ZESTRIL) 40 mg tablet, Take 40 mg by mouth once daily., Disp: , Rfl: , 09/07/2024 ferrous sulfate 325 mg (65 mg iron) tablet, Take 325 mg by mouth every 24 hours., Disp: , Rfl: , 09/07/2024 aspirin, enteric coated (ASPIRIN, ENTERIC COATED) 81 mg EC tablet, Take 1 tablet by mouth once daily., Disp: 360 tablet, Rfl: 0, 09/07/2024 tamsulosin (FLOMAX) 0.4 mg, Take 1 capsule by mouth two times a day., Disp: , Rfl: , 09/07/2024 ascorbic acid, vitamin C, (VITAMIN C) 500 mg tablet, Take 1 tablet by mouth once daily., Disp: , Rfl: , 09/07/2024 folic acid 1 mg tablet, Take 1 tablet by mouth once daily., Disp: , Rfl: , 09/07/2024 magnesiu (more content not included)... Normal [facility] [place] [facility] Comprehensive metabolic 2000 panelon 09-09-2024 Albumin [Mass/Vol] 3.5 g/dL Low 3.9-4.9 [facility] Comment on above: Order Comment: Speci men Type: BLOOD SPECIMENOrdering Facility: [facility] Address: [address] [place] [address] Performed By: #### 2 4323-8, , 2776-02 ####[facility] LABORATORYCLIA [id number] [place] [address] [place] ALP [Catalytic activity/Vol] 69 U/L Normal 38-113 [facility] [place] [facility] Comment on above: Order Comment: Speci men Type: BLOOD SPECIMENOrdering Facility: [facility] Address: [address] [place] [address] Performed By: #### 2 4323-8, , 2776-02 ####[facility] LABORATORYCLIA [id number] [place] [address] [place] ALT [Catalytic activity/Vol] 11 U/L Normal 10-54 [facility] [place] [facility] Comment on above: Order Comment: Speci men Type: BLOOD SPECIMENOrdering Facility: [facility] Address: [address] [place] [address] Performed By: #### 2 4323-8, , 2776-02 ####[facility] LABORATORYCLIA [id number] [place] [address] [place] Anion gap [Moles/Vol] 9 mmol/L Normal 8-15 [facility] Comment on above: Order Comment: Speci men Type: BLOOD SPECIMENOrdering Facility: [facility] Address: [address] [place] [address] Performed By: #### 2 4323-8, , 2776-02 ####[facility] LABORATORYCLIA [id number] [address] [place] AST [Catalytic activity/Vol] 6 U/L Low 14-40 [facility] [place] [facility] Comment on above: Order Comment: Speci men Type: BLOOD SPECIMENOrdering Facility: [facility] Address: [address] [place] [address] Performed By: #### 2 4323-8, , 2776-02 ####[facility] LABORATORYCLIA [id number] [place] [id number] [place] Bilirubin [Mass/Vol] 0.3 mg/dL Normal 0.2-1.3 [facility] Comment on above: Order Comment: Speci men Type: BLOOD SPECIMENOrdering Facility: [facility] Address: [address] [place] [address] Performed By: #### 2 4323-8, , 2776-02 ####[facility] LABORATORYCLIA [id number] [place] [address] [place] Calcium [Mass/Vol] 8.4 mg/dL Low 8.5-10.2 [facility] [place] [facility] Comment on above: Order Comment: Speci men Type: BLOOD SPECIMENOrdering Facility: [facility] Address: [address] [place] [id number] Performed By: #### 2 4323-8, 32152-9, 2776-02 ####[facility] LABORATORYCLIA [id number] [place] [address] [place] Chloride [Moles/Vol] 111 mmol/L High 98-107 [facility] Comment on above: Order Comment: Speci men Type: BLOOD SPECIMENOrdering Facility: [facility] Address: [address] [place] [address] Performed By: #### 2 4323-8, , 2776-02 ####[facility] LABORATORYCLIA [id number] [place] [address] [place] CO2 [Moles/Vol] 22 mmol/L Normal 22-30 [facility] [place] [facility] Comment on above: Order Comment: Speci men Type: BLOOD SPECIMENOrdering Facility: [facility] Address: [address] [place] [address] Performed By: #### 2 4323-8, , 2776-02 ####[facility]ORATORYCLIA [id number] [place] [address] [place] Creatinine [Mass/Vol] 1.07 mg/dL Normal 0.73-1.22 [facility] Comment on above: Order Comment: Speci men Type: BLOOD SPECIMENOrdering Facility: [facility] Address: [address] [place] [address] Performed By: #### 2 4323-8, , 2776-02 ####[facility] LABORATORYCLIA [id number] [place] [address] [place] eGFRcr SerPlBld CKD-EPI 2020 72 mL/min/1.73m??? Normal >=60 [facility] [place] [facility] Comment on above: Order Comment: Speci men Type: BLOOD SPECIMENOrdering Facility: [facility] Address: [address] [place] [address] Result Comment: Teri mated Glomerular Filtration Rate (eGFR) is calculated using the 2020 CKD-EPI creatinine equation. This equation utilizes serum creatinine, sex, and age as parameters. The creatinine assay has traceable calibration to isotope dilution-mass spectrometry. Refer to KDIGO guidelines for clinical interpretation. In patients with unstable renal function, e.g. those with acute kidney injury, the eGFR may not accurately reflect actual GFR. Performed By: #### 2 4323-8, , 2776-02 ####[facility] LABORATORYCLIA [id number] [place] [address] [place] Glucose [Mass/Vol] 101 mg/dL High 74-99 [facility] [place] [facility] Comment on above: Order Comment: Rachid [facility] Type: BLOOD SPECIMENOrdering Facility: [facility] Address: [address] [place], [place] [id number] Result Comment: The [place] Diabetes Association (ADA) provides guidance for cutoff values for fasting glucose and random glucose. The ADA defines fasting as no caloric intake for at least 8 hours. Fasting plasma glucose results between 100 to 125 mg/dL indicate increased risk for diabetes (prediabetes). Fasting plasma glucose results greater than or equal to 126 mg/dL meet the criteria for diagnosis of diabetes. In the absence of unequivocal hyperglycemia, results should be confirmed by repeat testing. In a patient with classic symptoms of hyperglycemia or hyperglycemic crisis, random plasma glucose results greater than or equal to 200 mg/dL meet the criteria for diagnosis of diabetes. Reference: Standards of Medical Care in Diabetes 2016, [place] [employer] Association. Diabetes Care. 2016.39(Suppl 1). Performed By: #### 2 4323-8, , 2776-02 ####[facility]ORATORYCLIA [id number] [place] [address] [place] Potassium [Moles/Vol] 4.5 mmol/L Normal 3.7-5.1 [facility] Comment on above: Order Comment: [facility] Type: BLOOD SPECIMENOrdering Facility: [facility] Address: [address] [place] [address] Performed By: #### 2 4323-8, , 2776-02 ####[facility] LABORATORYCLIA [id number] [place] [address] [place] Protein [Mass/Vol] 5.5 g/dL Low 6.3-8.0 [facility] [place] [facility] Comment on above: Order Comment: Speci men Type: BLOOD SPECIMENOrdering Facility: [facility] Address: [address] [place] [address] Performed By: #### 2 4323-8, , 2776-02 ####[facility] LABORATORYCLIA [id number] [place] [address] [place] Sodium [Moles/Vol] 142 mmol/L Normal 136-144 [facility] [place] [facility] Comment on above: Order Comment: Speci men Type: BLOOD SPECIMENOrdering Facility: [facility] Address: [address] [place] [address] Performed By: #### 2 4323-8, , 2776-02 ####[facility] LABORATORYCLIA [id number] [place] [address] [place] Urea nitrogen [Mass/Vol] 29 mg/dL High 9-24 [facility] Comment on above: Order Comment: Speci men Type: BLOOD SPECIMENOrdering Facility: [facility] Address: [address] [place] [address] Performed By: #### 2 4323-8, , 2776-02 ####[facility] LABORATORYCLIA [id number] [address] [place] Hgb Bld-ncon 09-09-2024 Hemoglobin (Bld) [Mass/Vol] 8.3 g/dL Low 13.0-17.0 [facility] Comment on above: Order Comment: Speci men Type: BLOOD SPECIMENOrdering Facility: [facility] Address: [address] [place] [address] Performed By: #### 7 18-7 ####[facility] LABORATORYCLIA [id number] [place] [address] [place] Magnesium SerPl-mCncon 09-09 Magnesium [Mass/Vol] 2.5 mg/dL High 1.7-2.3 [facility] Comment on above: Order Comment: Speci men Type: BLOOD SPECIMENOrdering Facility: [facility] Address: [address] [place] [address] Performed By: #### 2 4323-8, , 2776-02 ####[facility]ORATORYCLIA [id number] [place] [address] [place] Phosphate SerPl-mCncon 09-09 Phosphate [Mass/Vol] 3.4 mg/dL Normal 2.7-4.8 [facility] Comment on above: Order Comment: Speci men Type: BLOOD SPECIMENOrdering Facility: [facility] Address: [address] [place] [address] Performed By: #### 2 4323-8, , 2776-02 ####[facility]ORATORYCLIA [id number] [place] [address] [place] .Auto Diffon 09-08-2024 Basophil, Absolute 0.0 10 3/mcL Normal 0.0-0.3 [facility] Comment on above: Performed By: #### A DIFF, APTT, CBC, LIP, MDW, ABOGEL, ABSGEL, LAC, TROPHS, ANEU, CMP, PRO, GFR #### [address] [address] Basophils/100 WBC (Bld) 0.4 % Normal 0.0-2.5 [facility] Comment on above: Performed By: #### A DIFF, APTT, CBC, LIP, MDW, ABOGEL, ABSGEL, LAC, TROPHS, ANEU, CMP, PRO, GFR #### [address] [address] Eosinophil, Absolute 0.1 10 3/mcL Normal 0.0-0.7 [facility] Comment on above: Performed By: #### A DIFF, APTT, CBC, LIP, MDW, ABOGEL, ABSGEL, LAC, TROPHS, ANEU, CMP, PRO, GFR #### [address] [address] Eosinophils/100 WBC (Bld) 0.8 % Normal 0.0-6.0 [facility] Comment on above: Performed By: #### A DIFF, APTT, CBC, LIP, MDW, ABOGEL, ABSGEL, LAC, TROPHS, ANEU, CMP, PRO, GFR #### [address] [address] Lymphocyte, Absolute 1.0 10 3/mcL Normal 0.9-4.3 [facility] Comment on above: Performed By: #### A DIFF, APTT, CBC, LIP, MDW, ABOGEL, ABSGEL, LAC, TROPHS, ANEU, CMP, PRO, GFR #### [address] [address] Lymphocytes/100 WBC (Bld) 14.8 % Low 20.0-40.0 [facility] Comment on above: Performed By: #### A DIFF, APTT, CBC, LIP, MDW, ABOGEL, ABSGEL, LAC, TROPHS, ANEU, CMP, PRO, GFR #### [address] [address] Monocyte, Absolute 0.3 10 3/mcL Normal 0.1-1.4 [facility] Comment on above: Performed By: #### A DIFF, APTT, CBC, LIP, MDW, ABOGEL, ABSGEL, LAC, TROPHS, ANEU, CMP, PRO, GFR #### [address] [address] Monocytes/100 WBC (Bld) 4.5 % Normal 2.0-13.0 [facility] Comment on above: Performed By: #### A DIFF, APTT, CBC, LIP, MDW, ABOGEL, ABSGEL, LAC, TROPHS, ANEU, CMP, PRO, GFR #### [address] [address] Neutrophils/100 WBC (Bld) 79.5 % High 50.0-75.0 [facility] Comment on above: Performed By: #### A DIFF, APTT, CBC, LIP, MDW, ABOGEL, ABSGEL, LAC, TROPHS, ANEU, CMP, PRO, GFR #### [address] [address] .GFRon 09-08-2024 Estimated Glomerular Filtration Rate 61 ml/min/1.73sqm Normal [facility] Comment on above: Result Comment: Stages of Chronic Kidney Disease (CKD) Stage Description eGFR(ml/min/1.73 sq.m.) CKD 1 Normal kidney function or >=90 normal kindney function with possible kidney damage (ex. Proteinuria) CKD 2 Kidney damage with mild loss 60-89 of kidney function CKD 3a Mild to moderate loss of kidney 45-59 function CKD 3b Moderate to severe loss of 30-44 of kindey function CKD 4 Severe loss of kidney function 15-29 CKD 5 Kidney failure <15 Note: (go live 2024) the eGFR calculation was updated to the 2020 CKD-EPI creatinine equation without a race factor to calculate the eGFR results. Performed By: #### G FR, ADIFF, ANEU, BMP, CBC #### [address] [address] .MDWon 09-08-2024 Monocyte Distribution Width 17.45 Normal 0.00-20.00 [facility] Comment on above: Result Comment: For ED adult patients suspected of sepsis, MDW<=20.0 does not rule out sepsis or risk of sepsis Performed By: #### G FR, ADIFF, ANEU, BMP, CBC #### [address] [address] .NEUABSon 09-08-2024 Neutrophil, Absolute 5.5 10 3/mcL Normal 2.3-8.1 [facility] Comment on above: Performed By: #### G FR, ADIFF, ANEU, BMP, CBC #### [address] [address] ABO/Rh (Gel)on 09-08-2024 ABO/Rh Interp Negative Invalid Interpretation Code [facility] Comment on above: Performed By: #### G FR, ADIFF, ANEU, BMP, CBC #### [address] [address] ABS (Gel)on 09-08-2024 ABSC Interp (Gel) Negative Normal [facility] Comment on above: Performed By: #### G FR, ADIFF, ANEU, BMP, CBC #### [address] [address] APTTon 09-08-2024 aPTT Coag (Bld) [Time] 30.0 s Normal 25.0-35.0 [facility] Comment on above: Result Comment: For Heparin anticoagulation therapy, the recommended therapeutic range is: 45.4-75.9 seconds. Patients on heparin therapy may have an extreme result. Performed By: #### G FR, ADIFF, ANEU, BMP, CBC #### [address] [address] CBCon 09-08-2024 Erythrocyte distribution width (RBC) [Ratio] 15.5 % Normal 11.5-15.5 [facility] Comment on above: Performed By: #### A DIFF, APTT, CBC, LIP, MDW, ABOGEL, ABSGEL, LAC, TROPHS, ANEU, CMP, PRO, GFR #### [place] [id number] Hematocrit (Bld) [Volume fraction] 25.8 % Low 40.0-52.0 [facility] Comment on above: Performed By: #### A DIFF, APTT, CBC, LIP, MDW, ABOGEL, ABSGEL, LAC, TROPHS, ANEU, CMP, PRO, GFR #### [place] [address] Hgb 8.8 G/dL Low 13.0-17.5 [facility] Comment on above: Performed By: #### A DIFF, APTT, CBC, LIP, MDW, ABOGEL, ABSGEL, LAC, TROPHS, ANEU, CMP, PRO, GFR #### [place] [id number] MCH (RBC) [Entitic mass] 29.8 pg Normal 27.0-33.0 [facility] Comment on above: Performed By: #### A DIFF, APTT, CBC, LIP, MDW, ABOGEL, ABSGEL, LAC, TROPHS, ANEU, CMP, PRO, GFR #### [address] [address] MCHC 33.9 G/dL Normal 32.0-36.0 [facility] Comment on above: Performed By: #### A DIFF, APTT, CBC, LIP, MDW, ABOGEL, ABSGEL, LAC, TROPHS, ANEU, CMP, PRO, GFR #### [address] [address] MCV (RBC) [Entitic vol] 87.8 fL Normal 81.0-100.0 [facility] Comment on above: Performed By: #### A DIFF, APTT, CBC, LIP, MDW, ABOGEL, ABSGEL, LAC, TROPHS, ANEU, CMP, PRO, GFR #### [address] [address] Platelet 160 10 3/mcL Normal 150-450 [facility] Comment on above: Performed By: #### A DIFF, APTT, CBC, LIP, MDW, ABOGEL, ABSGEL, LAC, TROPHS, ANEU, CMP, PRO, GFR #### [address] [address] Platelet mean volume (Bld) [Entitic vol] 9.1 fL Normal 6.4-10.5 [facility] Comment on above: Performed By: #### A DIFF, APTT, CBC, LIP, MDW, ABOGEL, ABSGEL, LAC, TROPHS, ANEU, CMP, PRO, GFR #### [address] [address] RBC 2.94 10 6/mcL Low 4.50-6.00 [facility] Comment on above: Performed By: #### A DIFF, APTT, CBC, LIP, MDW, ABOGEL, ABSGEL, LAC, TROPHS, ANEU, CMP, PRO, GFR #### [address] [address] WBC 6.9 10 3/mcL Normal 4.5-10.8 [facility] Comment on above: Performed By: #### A DIFF, APTT, CBC, LIP, MDW, ABOGEL, ABSGEL, LAC, TROPHS, ANEU, CMP, PRO, GFR #### [address] [address] CBC panel Auto (Bld)on 09-08 Erythrocyte distribution width (RBC) [Ratio] 14.9 % Normal 11.5-15.0 [facility] [place] [facility] Comment on above: Order Comment: Speci men Type: BLOOD SPECIMENOrdering Facility: [facility] Address: [address] [place] [address] Performed By: #### 5 8410-2 ####[facility] LABORATORYCLIA [id number] [address] [facility] Hematocrit (Bld) [Volume fraction] 24.9 % Low 39.0-51.0 [facility] [place] [facility] Comment on above: Order Comment: Speci men Type: BLOOD SPECIMENOrdering Facility: [facility] Address: [address] [place] [address] Performed By: #### 5 8410-2 ####[facility] LABORATORYCLIA [id number] [address] [place] Hemoglobin (Bld) [Mass/Vol] 8.4 g/dL Low 13.0-17.0 [facility] [place] [facility] Comment on above: Order Comment: Speci men Type: BLOOD SPECIMENOrdering Facility: [facility] Address: [address] [place] [address] Performed By: #### 5 8410-2 ####[facility] LABORATORYCLIA [id number] [address] [place] MCH (RBC) [Entitic mass] 30.1 pg Normal 26.0-34.0 [facility] [place] [facility] Comment on above: Order Comment: Speci men Type: BLOOD SPECIMENOrdering Facility: [facility] Address: [address] [place] [address] Performed By: #### 5 8410-2 ####[facility] LABORATORYCLIA [id number] [address] [place] MCHC (RBC) [Mass/Vol] 33.7 g/dL Normal 30.5-36.0 [facility] Comment on above: Order Comment: Speci men Type: BLOOD SPECIMENOrdering Facility: [facility] Address: [address] [place] [address] Performed By: #### 5 8410-2 ####[facility] LABORATORYCLIA [id number] [address] OF [place] MCV (RBC) [Entitic vol] 89.2 fL Normal 80.0-100.0 [facility] [place] [facility] Comment on above: Order Comment: Speci men Type: BLOOD SPECIMENOrdering Facility: [facility] Address: [address] [place] [address] Performed By: #### 5 8410-2 ####[facility] LABORATORYCLIA [id number] [place] [address] [place] Nucleated RBC (Bld) [#/Vol] 10*3/uL Normal <0.01 [facility] Comment on above: Order Comment: Speci men Type: BLOOD SPECIMENOrdering Facility: [facility] Address: [address] [place] [address] Performed By: #### 5 8410-2 ####[facility] LABORATORYCLIA [id number] [address] OF PRECI[place] Platelet mean volume (Bld) [Entitic vol] 10.8 fL Normal 9.0-12.7 [facility] Comment on above: Order Comment: Speci men Type: BLOOD SPECIMENOrdering Facility: [facility] Address: [address] [place] [address] Performed By: #### 5 8410-2 ####[facility] LABORATORYCLIA [id number] [address] [place] Platelets (Bld) [#/Vol] 176 10*3/uL Normal 150-400 [facility] Comment on above: Order Comment: Speci men Type: BLOOD SPECIMENOrdering Facility: [facility] Address: [address] [place] [address] Performed By: #### 5 8410-2 ####[facility] LABORATORYCLIA [id number] [place] [address] [place] RBC (Bld) [#/Vol] 2.79 10*6/uL Low 4.20-6.00 [facility] Comment on above: Order Comment: Speci men Type: BLOOD SPECIMENOrdering Facility: [facility] Address: [address] [place] [address] Performed By: #### 5 8410-2 ####[facility] LABORATORYCLIA [id number] [place] [address] [place] WBC (Bld) [#/Vol] 6.70 10*3/uL Normal 3.70-11.00 [facility] Comment on above: Order Comment: Speci men Type: BLOOD SPECIMENOrdering Facility: [facility] Address: [address] [place] [address] Performed By: #### 5 8410-2 ####[facility] LABORATORYCLIA [id number] [place] [address] [facility] OF PRECIOUS CMPon 09-08-2024 Albumin Level 3.2 G/dL Low 3.4-4.8 [facility] Comment on above: Performed By: #### G FR, ADIFF, ANEU, BMP, CBC #### [address] [address] Albumin/Globulin [Mass ratio] 1.4 {ratio} Normal 1.1-2.5 [facility] Comment on above: Performed By: #### G FR, ADIFF, ANEU, BMP, CBC #### [address] [address] ALP [Catalytic activity/Vol] 76 U/L Normal 40-135 [facility] Comment on above: Performed By: #### G FR, ADIFF, ANEU, BMP, CBC #### [address] [address] ALT [Catalytic activity/Vol] 20 U/L Normal 16-63 [facility] Comment on above: Performed By: #### G FR, ADIFF, ANEU, BMP, CBC #### [address] [address] AST [Catalytic activity/Vol] 7 U/L Low 10-40 [facility] Comment on above: Performed By: #### G FR, ADIFF, ANEU, BMP, CBC #### [address] [address] Bili Total 0.4 mg/dL Normal 0.2-1.0 [facility] Comment on above: Result Comment: Use of this assay is not recommended for patients undergoing treatment with eltrombopag due to the potential for falsely elevated results. Performed By: #### G FR, ADIFF, ANEU, BMP, CBC #### [address] [address] BUN/Creatinine Ratio 33 ratio High 7-27 [facility] Comment on above: Performed By: #### G FR, ADIFF, ANEU, BMP, CBC #### [place] [address] Calcium [Mass/Vol] 8.4 mg/dL Normal 8.4-10.2 [facility] Comment on above: Performed By: #### G FR, ADIFF, ANEU, BMP, CBC #### [place] [address] Chloride [Moles/Vol] 109 mmol/L High 98-107 [facility] Comment on above: Performed By: #### G FR, ADIFF, ANEU, BMP, CBC #### [place] [address] CO2 [Moles/Vol] 25 mmol/L Normal 23-31 [facility] Comment on above: Performed By: #### G FR, ADIFF, ANEU, BMP, CBC #### [address] [address] Creatinine [Mass/Vol] 1.23 mg/dL High 0.67-1.17 [facility] Comment on above: Performed By: #### G FR, ADIFF, ANEU, BMP, CBC #### [place] [address] Electrolyte Balance 8.0 mEq/L Normal 4.0-15.0 [facility] Comment on above: Performed By: #### G FR, ADIFF, ANEU, BMP, CBC #### [address] [address] Globulin 2.3 G/dL Low 2.7-4.4 [facility] Comment on above: Performed By: #### G FR, ADIFF, ANEU, BMP, CBC #### [place] [id number] [place], [place] [address] Glucose [Mass/Vol] 121 mg/dL High 83-110 [facility] Comment on above: Performed By: #### G FR, ADIFF, ANEU, BMP, CBC #### [place] [address] [place], [place] [address] Potassium [Moles/Vol] 4.7 mmol/L Normal 3.5-5.1 [facility] Comment on above: Performed By: #### G FR, ADIFF, ANEU, BMP, CBC #### [address] [address] Sodium [Moles/Vol] 142 mmol/L Normal 136-145 [facility] Comment on above: Performed By: #### G FR, ADIFF, ANEU, BMP, CBC #### [address] [address] Total Protein 5.5 G/dL Low 6.4-8.2 [facility] Comment on above: Performed By: #### G FR, ADIFF, ANEU, BMP, CBC #### [address] [address] Urea nitrogen [Mass/Vol] 40 mg/dL High 7-18 [facility] Comment on above: Performed By: #### G FR, ADIFF, ANEU, BMP, CBC #### [address] [address] [place] 09-08-2024 CNPN Telephone (MEPRAD) HOMERO MEI ([id number]) 1945 M [facility] Date Time Provider Department 09/08/24 SKYLAR CAMPOVERDE During your visit today, we recorded the following information about you: Skylar Campoverde MD 09/08/2024 2:24 PM Signed Hospital Medicine Transfer Received page for transfer request from [facility] to [facility]: Homero Mei is 78 year old male with CAD s/p CABG 03/15, A-fib on Eliquis presented to [facility] with rectal bleeding. Had a colonoscopy with Dr. Jones on 09/01/2024 where polyps were removed. Patient has been taking his Eliquis. As per the ER current vitals are stable with SBP in 130s, heart rate in 80s, hemoglobin was 9.1. Reason for transfer: GI bleed Accepted to hospital medicine service at [facility] Skylar Campoverde MD 2:20 PM Allergies As of Date: 09/08/2024 (No Known Allergies) Date Reviewed: 09/01/2024 Reviewed by: Nicholas Hernandez RN - Fully Assessed Reason for Visit: Hospital To Hospital [[id number]] Prescriptions as of 09/08/2024 - furosemide (LASIX) 20 mg tablet Take 1 tablet by mouth once daily. - metoprolol tartrate, short acting, (LOPRESSOR) 25 mg tablet Take 0.5 tablets by mouth two times a day. Hold for HR <60 and/or SBP <100 - atorvastatin (LIPITOR) 40 mg tablet Take 1 tablet by mouth once daily. - donepezil (ARICEPT) 10 mg tablet Take 1 tablet by mouth daily with breakfast. - cyanocobalamin (VITAMIN B-12) 1,000 mcg tab Take 1 tablet by mouth once daily. - memantine (NAMENDA) 5 mg tablet Take 1 tablet by mouth once daily. - ELIQUIS 5 mg tab(s) Take 5 mg by mouth two times a day. - lisinopril (ZESTRIL) 40 mg tablet Take 40 mg by mouth once daily. - ferrous sulfate 325 mg (65 mg iron) tablet Take 325 mg by mouth every 24 hours. - senna-docusate (SENNA WITH DOCUSATE SODIUM) 8.6-50 mg per tablet Take 1 tablet by mouth once daily. - senna-docusate (SENNA WITH DOCUSATE SODIUM) 8.6-50 mg per tablet Take 1 tablet by mouth once daily as needed for constipation. - aspirin, enteric coated (ASPIRIN, ENTERIC COATED) 81 mg EC tablet Take 1 tablet by mouth once daily. - lactobacillus combination no.4 (PROBIOTIC) 3 billion cell cap Take 1 capsule by mouth once daily. - docusate sodium (COLACE) 100 mg capsule Take 1 capsule by mouth two times a day as needed for constipation. - melatonin 3 mg capsules Take 1 capsule by mouth at bedtime as needed for insomnia. - tamsulosin (FLOMAX) 0.4 mg Take 1 capsule by mouth two times a day. - ascorbic acid, vitamin C, (VITAMIN C) 500 mg tablet Take 1 tablet by mouth once daily. - folic acid 1 mg tablet Take 1 tablet by mouth once daily. - magnesium oxide (MAG-OX) 400 mg (241.3 mg magnesium) tablet Take 1 tablet by mouth once daily. - polyethylene glycol 3350 17 gram packet Take 1 Packet by mouth once daily. Dissolve dose in 4 - 8 ounces of liquid and take as directed. - fluticasone (FLONASE) 50 mcg/actuation nasal spray Use 2 Sprays in each nostril once daily as needed. - cholecalciferol (VITAMIN D3) 1,000 unit tab tablet Take by mouth once daily. Taking 25 MCG daily - vit C/E/Zn/coppr/lutein/zeaxan (PRESERVISION AREDS-2 ORAL) Take 1 capsule by mouth two times a day. - latanoprost (XALATAN) 0.005 % ophthalmic solution Use 1 Drop in both eyes daily at bedtime. - pantoprazole DR (PROTONIX) 40 mg tablet Take 40 mg by mouth once daily. Meds Comments as of 03/03/2024: [employer] [facility] Medication Record on 03/03/2024 Problem List As Of Date 09/08/2024 Noted Resolved Lumbago [M54.50] 10/13/2009 Neck Sprain and Strain [S13.9XXA] 10/13/2009 Enlargement of Lymph Nodes [R59.9] 10/13/2009 Irritable Bowel Syndrome [K58.9] 08/19/1997 10/13/2009 Anal and Rectal Polyp [K62.0, K62.1] 10/13/2009 Unspecified Hemorrhoids without Mention of Comp* 10/13/2009 Benign Neoplasm of Colon [D12.6] 10/13/2009 Contact Dermatitis and Other Eczema, due to Uns*08/18/2008 04/09/2009 Contact Dermatitis and Other Eczema due to Othe*08/18/2008 04/09/2009 Other Atopic Dermatitis and Related Conditions *08/18/2008 04/09/2009 XEROSIS///SEBACEOUS GLAND DIS NEC [L73.8] 08/18/2008 04/09/2009 Rosacea [L71.9] 08/18/2008 10/13/2009 TELANGIECTASIAS///CAPILLARY DIS NEC/NOS [I78.9] 08/18/2008 10/13/2009 Xerosis Cutis [L85.3] 04/09/2009 04/09/2009 Eczematous Dermatitis: ?Contact type vs other *04/09/2009 10/13/2009 Xerosis Cutis [L85.3] 04/09/2009 10/13/2009 Hyperlipidemia [E78.5] 10/13/2009 Viral warts, unspecified [B07.9] 02/03/2010 06/05/2016 Irritated//Inflamed Seborrheic Keratosis [L82.0]02/03/2010 Eczematous Dermatitis: Irritant [L25.9] 02/03/2010 Irritant dermatitis [L24.9] 02/03/2010 06/05/2016 Other seborrheic keratosis [L82.1] 02/03/2010 06/05/2016 Other psoriasis [L40.8] 02/03/2010 Bilateral inguinal hernia (BIH) [K40.20] 07/04/2010 11/01/2011 Irritable bowel syndrome [K58 (more content not included)... Normal [facility] CT ABD/PELVIS W/ IV CONTRAST ONLYon 09-08-2024 CT ABD/PELVIS W/ IV CONTRAST ONLY ORIGINAL EXAMINATION: CT OF THE ABDOMEN AND PELVIS WITH CONTRAST 09/08/2024 10:54 am TECHNIQUE: CT of the abdomen and pelvis was performed with the administration of intravenous contrast. Multiplanar reformatted images are provided for review. Automated exposure control, iterative reconstruction, and/or weight based adjustment of the mA/kV was utilized to reduce the radiation dose to as low as reasonably achievable. COMPARISON: None. HISTORY: ORDERING SYSTEM PROVIDED HISTORY: Reason for Exam: GI bleeding FINDINGS: Mild degenerative changes are noted in the spine. There are marked degenerative changes at the right hip and mild similar changes at the left hip. No acute osseous abnormality identified. The lung bases are unremarkable. Small scattered liver cysts are present. No other liver finding. The gallbladder is grossly normal. The spleen, adrenal glands and pancreas are unremarkable. Small scattered renal cysts are present. No other kidney finding. No adenopathy, free air or free fluid is visible. The urinary bladder is grossly normal. Moderate to marked diverticulosis is present at the sigmoid and left colon, without evidence for diverticulitis. No other GI tract abnormality is visible. No additional contributory finding with the exception of a small fat containing right inguinal hernia. IMPRESSION: No acute abnormality identified. Diverticulosis without diverticulitis. Interpreted by: Amalia Dye MD Preliminary Report By: Amalia Dye MD Electronically signed By Amalia Dye MD Dictated Date: 09/08/2024 11:02:23 AM Prelim Date: 09/08/2024 11:07:12 AM Sign Date: 09/08/2024 11:07:12 AM Ordering Provider: HERSON Rainey [facility] Comprehensive metabolic 2000 panelon 09-08-2024 Albumin [Mass/Vol] 3.9 g/dL Normal 3.9-4.9 [facility] Comment on above: Order Comment: Speci men Type: BLOOD SPECIMENOrdering Facility: [facility] Address: [address] [place] [address] Performed By: #### 2 4323-8, 11428-8, 2276-4 ####[facility]ORATORYCLIA [id number] [address] STATES OF [facility] ALP [Catalytic activity/Vol] 76 U/L Normal 38-113 [facility] Comment on above: Order Comment: Speci men Type: BLOOD SPECIMENOrdering Facility: [facility] Address: [address] [place] [address] Performed By: #### 2 4323-8, 18894-2, 6-4 ####[facility]ORATORYCLIA [id number] [address] STATES [facility] ALT [Catalytic activity/Vol] 13 U/L Normal 10-54 [facility] Comment on above: Order Comment: Speci men Type: BLOOD SPECIMENOrdering Facility: [facility] Address: [address] [facility] [place] [address] Performed By: #### 2 4323-8, 59017-9, 2275-4 ####[facility]ORATORYCLIA [id number] [place] [address] [place] Anion gap [Moles/Vol] 12 mmol/L Normal 8-15 [facility] Comment on above: Order Comment: Speci men Type: BLOOD SPECIMENOrdering Facility: [facility] Address: [facility] [place] [address] Performed By: #### 2 4323-8, 82936-8, 2275-4 ####[facility] LABORATORYCLIA [id number] [place] [address] [place] AST [Catalytic activity/Vol] 9 U/L Low 14-40 [facility] Comment on above: Order Comment: Speci men Type: BLOOD SPECIMENOrdering Facility: [facility] Address: [address] [place] [address] Performed By: #### 2 4323-8, 25467-8, 2275-4 ####[facility] LABORATORYCLIA [id number] [place] [address] [place] Bilirubin [Mass/Vol] 0.4 mg/dL Normal 0.2-1.3 [facility] Comment on above: Order Comment: Speci men Type: BLOOD SPECIMENOrdering Facility: [facility] Address: [address] [place] [address] Performed By: #### 2 4323-8, 93321-2, 2275-4 ####[facility]ORATORYCLIA [id number] [place] [address] [place] Calcium [Mass/Vol] 8.4 mg/dL Low 8.5-10.2 [facility] Comment on above: Order Comment: Speci men Type: BLOOD SPECIMENOrdering Facility: [facility] Address: [address] [place] [address] Performed By: #### 2 4323-8, 34601-5, 2275-4 ####[facility]ORATORYCLIA [id number] [place] [address] [place] Chloride [Moles/Vol] 108 mmol/L High 98-107 [facility] Comment on above: Order Comment: Speci men Type: BLOOD SPECIMENOrdering Facility: [facility] Address: [address] [place] [address] Performed By: #### 2 4323-8, 04529-8, 6-4 ####[facility]ORATORYCLIA [id number] [place] [address] [place] [facility] CO2 [Moles/Vol] 21 mmol/L Low 22-30 [facility] Comment on above: Order Comment: Speci men Type: BLOOD SPECIMENOrdering Facility: [facility] Address: [address] [place] [address] Performed By: #### 2 4323-8, 59168-8, 4 ####[facility]ATORYCLIA [id number] [address] STATES OF PRECIOUS Creatinine [Mass/Vol] 1.08 mg/dL Normal 0.73-1.22 [facility] Comment on above: Order Comment: Speci men Type: BLOOD SPECIMENOrdering Facility: [facility] Address: [address] [place] [address] Performed By: #### 2 4323-8, 58620-9, 2275-4 ####[facility]ORATORYCLIA [id number] [address] eGFRcr SerPlBld CKD-EPI 2020 71 mL/min/1.73m??? Normal >=60 [facility] Comment on above: Order Comment: Speci men Type: BLOOD SPECIMENOrdering Facility: [facility] Address: [address] [place] [address] Result Comment: Teri mated Glomerular Filtration Rate (eGFR) is calculated using the 2020 CKD-EPI creatinine equation. This equation utilizes serum creatinine, sex, and age as parameters. The creatinine assay has traceable calibration to isotope dilution-mass spectrometry. Refer to KDIGO guidelines for clinical interpretation. In patients with unstable renal function, e.g. those with acute kidney injury, the eGFR may not accurately reflect actual GFR. Performed By: #### 2 4323-8, 07636-1, 6-4 ####[facility]ORATORYCLIA [id number] [place] [address] [place] Glucose [Mass/Vol] 108 mg/dL High 74-99 [facility] Comment on above: Order Comment: Rachid sanchez Type: BLOOD SPECIMENOrdering Facility: [facility] Address: [address] [place] [address] Result Comment: The [place] [employer] (ADA) provides guidance for cutoff values for fasting glucose and random glucose. The ADA defines fasting as no caloric intake for at least 8 hours. Fasting plasma glucose results between 100 to 125 mg/dL indicate increased risk for diabetes (prediabetes). Fasting plasma glucose results greater than or equal to 126 mg/dL meet the criteria for diagnosis of diabetes. In the absence of unequivocal hyperglycemia, results should be confirmed by repeat testing. In a patient with classic symptoms of hyperglycemia or hyperglycemic crisis, random plasma glucose results greater than or equal to 200 mg/dL meet the criteria for diagnosis of diabetes. Reference: Standards of Medical Care in Diabetes 2016, [place] [employer]. Diabetes Care. 2016.39(Suppl 1). Performed By: #### 2 4323-8, 77468-5, 2275-4 ####[facility]ORATORYCLIA [id number] [place] [address] [place] Potassium [Moles/Vol] 4.0 mmol/L Normal 3.7-5.1 [facility] Comment on above: Order Comment: Rachid sanchez Type: BLOOD SPECIMENOrdering Facility: [facility] Address: [address] [place] [address] Performed By: #### 2 4323-8, 29488-8, 2275-4 ####[facility]ORATORYCLIA [id number] [place] [address] [place] Protein [Mass/Vol] 5.8 g/dL Low 6.3-8.0 [facility] Comment on above: Order Comment: Rachid sanchez Type: BLOOD SPECIMENOrdering Facility: [facility] Address: [address] [place], [place] [address] Performed By: #### 2 4323-8, 98099-4, 2275-4 ####[facility]ORATORYCLIA [id number] [place] [address] [place] Sodium [Moles/Vol] 141 mmol/L Normal 136-144 [facility] Comment on above: Order Comment: Speci men Type: BLOOD SPECIMENOrdering Facility: [facility] Address: [facility] [place] [id number] Performed By: #### 2 4323-8, 86006-6, 2276-4 ####[facility] LABORATORYCLIA [id number] [place] [id number] [place] OF [place]CIOUS Urea nitrogen [Mass/Vol] 34 mg/dL High 9-24 [facility] Comment on above: Order Comment: Speci men Type: BLOOD SPECIMENOrdering Facility: [facility] Address: [address] [place] [address] Performed By: #### 2 4323-8, 80805-1, 6-4 ####[facility] LABORATORYCLIA [id number] [place] [address] [facility] OF PRECIOUS Ferritin SerPl-mCncon 2024 Ferritin [Mass/Vol] 70.5 ng/mL Normal 30.3-565.7 [facility] Comment on above: Order Comment: Speci men Type: BLOOD SPECIMENOrdering Facility: [facility] Address: [address] [place] [address] Performed By: #### 2 4323-8, 14711-3, 6-4 ####[facility]ORATORYCLIA [id number] [place] [id number] [place]CI[place] HISTORY PHYSICALon HISTORY PHYSICAL HNO ID: [id number] Author: KAILASH DIAZ MD Service: Hospital Medicine Author Type: Physician Type: H&P Filed: 09/08/2024 23:51 Note Text: DEPARTMENT OF HOSPITAL MEDICINE HISTORY AND PHYSICAL EXAM SERVICE DATE: 09/08/2024 Code Status: Not on file SERVICE TIME: 5:35 PM Primary Care Physician: Lenin Chaudhary MD NIGHT AND WEEKEND COVERAGE: [place] COVERAGE: Days: [phone], please page attending physician. Nights: [phone], please page [facility] Night coverage pager [phone]. Subjective CHIEF COMPLAINT: Bright red blood per rectum HPI: A 78-year-old male with a past medical history of hyperlipidemia, dermatitis, IBS, hypertension, degenerative disc disease, CHRISTIANO, iron deficiency anemia, Alzheimer's dementia, BPH, CAD, history of CHF, history of A-fib presented to the emergency department with complaints of bright red blood per rectum. Of note patient had a colonoscopy with Dr. Andino on 09/01 where polyps were removed. Patient has been taking his Eliquis. History was garnered via chart review and speaking with the patient. Patient states that yesterday night he woke up and found to have a bloody stool with his bowel movement. Stated that he lost maybe close to punish for the blood. Patient states that stool was dark red in color. Painless bowel movement. Associate with nausea. States that he had a total of tannish bowel movements with blood in it. Endorsed having lightheadedness and concern for dizziness on standing. No shortness of breath or chest pain. No abdominal pain. No fevers or chills. Due to the above complaints patient decided come to the ED for further evaluation and treatment. Patient's vitals are mildly labile saturating well on room air. No microbiology sent. No imaging from outside facility. No EKG from outside facility. No labs from outside facility. PAST MEDICAL HISTORY Diagnosis Date Alzheimer's dementia without behavioral disturbance, psychotic disturbance, mood disturbance, or anxiety, unspecified dementia severity, unspecified timing of dementia onset (HCC) Ascending aorta dilatation borderline Atrial fibrillation (HCC) Benign prostatic hyperplasia with urinary frequency Bilateral carpal tunnel syndrome s/p release on right Bilateral inguinal hernia s/p mesh BPH (benign prostatic hyperplasia) CAD (coronary artery disease) 12/21/2023 abnormal stress test. 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 Iqbal on 02/28/24 Scalp psoriasis Unspecified essential hypertension Upper GI bleed 05/2023 Vitamin D insufficiency PAST SURGICAL HISTORY Procedure Laterality Date BACK SURGERY HX CABG (3) VEIN GRAFTS AND ARTERIAL GRAFT(S) 02/28/2024 CABG x 3 (Scales-LAD, SVG- PDA, SVG- OM1) with Dr. Iqbal on 02/28/24 COLON SURGERY HX COLONOSCOPY FLX DX W/COLLJ SPEC WHEN PFRMD , 11/19, 01/24, 01/29 COLONOSCOPY FLX DX W/COLLJ SPEC WHEN PFRMD 03/22/2015 Colonoscopy-repeat 5 years COLONOSCOPY FLX DX W/COLLJ SPEC WHEN PFRMD 11/23/2020 COLONOSCOPY GEN ANES 04/12/2020 Repeat in 1 year COLONOSCOPY GEN ANES 04/26/2020 3 polyps removed. 40 mm, 5 mm, 5mm. repeat in 6 months. DISKECTOMY, LUMBAR, SINGLE SP 2005 HERNIA REPAIR HX mesh INGUINAL HERNIA REPAIR HX 07/19/2010 bilateral inguinal hernia repair with mesh NEUROPLASTY AND/TRANSPOS MEDIAN NRV CARPAL TUNNE Right 03/26/2015 Carpal tunnel decomp right PAST SURGICAL HISTORY OF Left 04/10/2019 arthroscopic knee for torn meniscus RHINP PRIM LATANDALAR CRTLGSAND/ELVTN NASAL TI 2009 Rhinoplasty SKIN BIOPSY HX FAMILY HISTORY Problem Relation Age of Onset Heart Mother CHF Hypertension Mother Stroke Father Hypertension Father Social History Tobacco Use Smoking status: Never Passive exposure: Never Smokeless tobacco: Never Vaping Use Vaping status: Never Used Substance Use Topics Alcohol use: Not Currently Drug use: Never PRIOR TO ADMISSION MEDICATIONS: furosemide (LASIX) 20 mg tablet, Take 1 tablet by mouth once daily., Disp: 90 tablet, Rfl: , 09/07/2024 metoprolol tartrate, short acting, (LOPRESSOR) 25 mg tablet, Take 0.5 tablets by mouth two times a day. Hold for HR <60 and/or SBP <100, Disp: 90 tablet, Rfl: 1, 09/07/2024 atorvastatin (LIPITOR) 40 mg tablet, Take 1 tablet by mouth once daily., Disp: 90 tablet, Rfl: 1, 09/07/2024 donepezil (ARICEPT) 10 mg tablet, Take 1 tablet by mouth daily with breakfast., Disp: 90 tablet, Rfl: 1, 09/07/2024 cyanocobalamin (VITAMIN B-12) (more content not included)... Normal [facility] Iron and Iron binding capaci ty panelon 09-08-2024 Iron [Mass/Vol] 89 ug/dL Normal 41-186 [facility] Comment on above: Order Comment: Speci men Type: BLOOD SPECIMENOrdering Facility: [facility] Address: [address] [place] [address] Performed By: #### 2 4323-8, 40269-4, 2276-4 ####[facility] LABORATORYCLIA [id number] [place] [address] [facility] Iron binding capacity [Mass/Vol] 236 ug/dL Normal 232-386 [facility] Comment on above: Order Comment: Speci men Type: BLOOD SPECIMENOrdering Facility: [facility] Address: [address] [place] [address] Performed By: #### 2 4323-8, 27109-4, 2276-4 ####[facility] LABORATORYCLIA [id number] [place] [id number] [facility] Iron/TIBC [Molar ratio] 37.7 % Normal 15.0-57.0 [facility] Comment on above: Order Comment: Speci men Type: BLOOD SPECIMENOrdering Facility: [facility] Address: [address] [place] [address] Performed By: #### 2 4323-8, 99055-2, 2276-4 ####[facility] LABORATORYCLIA [id number] [place] [id number] [facility] LABORATORYOrdered By: Barbie Carvalho on 09-08-2024 Appearance (U) Clear (09/08/24 11:15 AM) Normal Clear AO Auto Urine SS Bilirubin Ql (U) Negative (09/08/24 11:15 AM) Normal Negative AO Auto Urine SS Color (U) Yellow (09/08/24 11:15 AM) Normal AO Auto Urine SS Glucose Test strip (U) [Mass/Vol] Negative Normal Negative AO Auto Urine SS Hemoglobin Auto test strip (U) [Mass/Vol] Negative (09/08/24 11:15 AM) Normal Negative AO Auto Urine SS Ketones Ql (U) Negative Normal Negative AO Auto Urine SS UA Leuk Est Negative (09/08/24 11:15 AM) Normal Negative AO Auto Urine SS UA Nitrite Negative (09/08/24 11:15 AM) Normal Negative AO Auto Urine SS UA pH 6.5 (09/08/24 11:15 AM) Normal 5.0 - 8.0 AO Auto Urine SS UA Protein Negative Normal Negative AO Auto Urine SS UA Spec Grav <=1.005 *ABN* (09/08/24 11:15 AM) Invalid Interpretation Code 1.015-1.02 5 AO Auto Urine SS UA Specimen Type Not Given (09/08/24 11:15 AM) Normal AO Auto Urine SS UA Urobilinogen 0.2 E.U./dL Normal 0.2-1.0 AO Auto Urine SS LABORATORYOrdered By: SYSTEM SYSTEM on 09-08-2024 Lactate [Moles/Vol] 1.7 mmol/L Normal 0.4 - 2. 0 mmol/L AO ADM SS Albumin BCP dye [Mass/Vol] 3.2 G/dL Low 3.4 - 4.8 G/dL AO ADM SS Albumin/Globulin [Mass ratio] 1.4 {ratio} Normal 1.1 - 2.5 ratio AO ADM SS ALP [Catalytic activity/Vol] 76 U/L Normal 40 - 135 U/L AO ADM SS ALT With P-5'-P [Catalytic activity/Vol] 20 U/L Normal 16 - 63 U/L AO ADM SS aPTT Coag (PPP) [Time] 30.0 s Normal 25.0 - 35.0 seconds AO HemoHub SS Comment on above: Interpretive Data: F or Heparin anticoagulation therapy, the recommended therapeutic range is: 45.4-75.9 seconds. Patients on heparin therapy may have an extreme result. AST With P-5'-P [Catalytic activity/Vol] 7 U/L Low 10 - 40 U/L AO ADM SS Basophils (Bld) [#/Vol] 0.0 103/mcL Normal 0.0 - 0.3 10^3/mcL AO Workflow SS Basophils/100 WBC (Bld) 0.4 % Normal 0.0 - 2.5 % AO Workflow SS Bilirubin [Mass/Vol] 0.4 mg/dL Normal 0.2 - 1 .0 mg/dL AO ADM SS Comment on above: Interpretive Data: U se of this assay is not recommended for patients undergoing treatment with eltrombopag due to the potential for falsely elevated results. Calcium [Mass/Vol] 8.4 mg/dL Normal 8.4 - 10. 2 mg/dL AO ADM SS Chloride [Moles/Vol] 109 mmol/L High 98 - 10 7 mmol/L AO ADM SS CO2 [Moles/Vol] 25 mmol/L Normal 23 - 31 mmol/L AO ADM SS Creatinine [Mass/Vol] 1.23 mg/dL High 0.67 - 1.17 mg/dL AO ADM SS Electrolyte Balance 8.0 mEq/L Normal 4.0 - 15 .0 mEq/L AO ADM SS Eosinophil, Absolute 0.1 103/mcL Normal 0.0 - 0 .7 10^3/mcL AO Workflow SS Eosinophils/100 WBC (Bld) 0.8 % Normal 0.0 - 6.0 % AO Workflow SS Erythrocyte distribution width (RBC) [Ratio] 15.5 % Normal 11.5 - 15.5 % AO Workflow SS Estimated Glomerular Filtration Rate 61 ml/min/1.73sqm Invalid Interpretation Code AO Chemistry S Comment on above: Interpretive Data: Stages of Chronic Kidney Disease (CKD) Stage Description eGFR(ml/min/1.73 sq.m.) CKD 1 Normal kidney function or >=90 normal kindney function with possible kidney damage (ex. Proteinuria) CKD 2 Kidney damage with mild loss 60-89 of kidney function CKD 3a Mild to moderate loss of kidney 45-59 function CKD 3b Moderate to severe loss of 30-44 of kindey function CKD 4 Severe loss of kidney function 15-29 CKD 5 Kidney failure <15 Note: (go live 2024) the eGFR calculation was updated to the 2020 CKD-EPI creatinine equation without a race factor to calculate the eGFR results. Globulin 2.3 G/dL Low 2.7 - 4.4 G/dL AO ADM SS Glucose [Mass/Vol] 121 mg/dL High 83 - 110 mg/dL AO ADM SS Hematocrit (Bld) [Volume fraction] 25.8 % Low 40.0 - 52.0 % AO Workflow SS Hemoglobin (Bld) [Mass/Vol] 8.8 G/dL Low 13.0 - 17.5 G/dL AO Workflow SS INR Coag (PPP) [Relative time] 1.2 {INR} Invalid Interpretation Code AO HemoHub SS Comment on above: Interpretive Data: Moise vazquez [employer] (CHEST, 1991, 102:312S-25S) recommended therapeutic range for oral anticoagulant therapy is: LOW RISK: Prophylaxis of venous thrombosis INR: 2.0-3.0 Treatment of pulmonary embolism 2.0-3.0 Prevention of systemic embolism 2.0-3.0 HIGH RISK: Mechanical prosthetic valves 2.5-3.5 Lipase [Catalytic activity/Vol] 20 U/L Normal 16 - 77 U/L AO ADM SS Lymphocytes (Bld) [#/Vol] 1.0 103/mcL Normal 0.9 - 4.3 10^3/mcL AO Workflow SS Lymphocytes/100 WBC (Bld) 14.8 % Low 20.0 - 40.0 % AO Workflow SS MCH (RBC) [Entitic mass] 29.8 pg Normal 27.0 - 33.0 pg AO Workflow SS MCHC 33.9 G/dL Normal 32.0 - 36.0 G/dL AO Workflow SS MCV (RBC) [Entitic vol] 87.8 fL Normal 81.0 - 100.0 fL AO Workflow SS Monocyte distribution width Auto (Bld) [Entitic vol] 17.45 1 Normal 0.00 - 20.00 AO Workflow SS Comment on above: Result Comment: For ED adult patients suspected of sepsis, MDW<=20.0 does not rule out sepsis or risk of sepsis Monocytes (Bld) [#/Vol] 0.3 103/mcL Normal 0.1 - 1.4 10^3/mcL AO Workflow SS Monocytes/100 WBC (Bld) 4.5 % Normal 2.0 - 13.0 % AO Workflow SS Neutrophils (Bld) [#/Vol] 5.5 103/mcL Normal 2.3 - 8.1 10^3/mcL AO Workflow SS Neutrophils/100 WBC (Bld) 79.5 % High 50.0 - 75.0 % AO Workflow SS Platelet mean volume (Bld) [Entitic vol] 9.1 fL Normal 6.4 - 10.5 fL AO Workflow SS Platelets (Bld) [#/Vol] 160 103/mcL Normal 150 - 450 10^3/mcL AO Workflow SS Potassium [Moles/Vol] 4.7 mmol/L Normal 3.5 - 5.1 mmol/L AO ADM SS Protein [Mass/Vol] 5.5 G/dL Low 6.4 - 8.2 G/dL AO ADM SS PT Coag (PPP) [Time] 14.4 s Normal 9.0 - 1 4.4 seconds AO HemoHub SS RBC (Bld) [#/Vol] 2.94 106/mcL Low 4.50 - 6.00 10^6/mcL AO Workflow SS Sodium [Moles/Vol] 142 mmol/L Normal 136 - 145 mmol/L AO ADM SS Troponin I.cardiac DL <= 0.01 ng/mL [Mass/Vol] 9 ng/L Normal 0 - 76 ng/L AO ADM SS Comment on above: Interpretive Data: H igh Sensitive Troponin I Reference Ranges: Female: 0-51 ng/L Male: 0-76 ng/L Testing performed on Fixed - Parking Tickets using a homogeneous sandwich chemiluminescent immunoassay based on [employer] technology. Urea nitrogen [Mass/Vol] 40 mg/dL High 7 - 18 mg/dL AO ADM SS Urea nitrogen/Creatinine [Mass ratio] 33 ratio High 7 - 27 ratio AO ADM SS WBC (Bld) [#/Vol] 6.9 103/mcL Normal 4.5 - 10.8 10^3/mcL AO Workflow SS LABORATORYOrdered By: Mee [place] on 09-08-2024 ABO and Rh group Nom (Bld) Blood group A Rh(D) negative Invalid Interpretation Code AO BB Auto SS Blood group antibody screen Ql Negative ABSC (09/08/24 9:26 AM) Normal AO BB Auto SS LACon 09-08-2024 Lactic Acid Lvl 1.7 mmol/L Normal 0.4-2.0 [facility] Comment on above: Performed By: #### G FR, ADIFF, ANEU, BMP, CBC #### [id number] [place], [place] [address] LIPon 09-08-2024 Lipase Level 20 U/L Normal 16-77 [facility] Comment on above: Performed By: #### G FR, ADIFF, ANEU, BMP, CBC #### [facility] [address] [place], [place] [address] Lactate (Bld) [Moles/Vol]on 09-08-2024 Lactate [Moles/Vol] 1.5 mmol/L Normal 0.5-2.2 [facility] Comment on above: Order Comment: Speci men Type: BLOOD SPECIMENOrdering Facility: [facility] Address: [address] [place] [address] Performed By: #### 3 [id number] ####[facility] LABORATORYCLIA [id number] [place] [address] [facility] PROon 09-08-2024 PT Coag (PPP) [Time] 14.4 s Normal 9.0-14.4 [facility] Comment on above: Performed By: #### G MEGA BOWMAN ANEU, BMP, CBC #### [address] [address] PT International Ratio 1.2 Normal [facility] Comment on above: Result Comment: The [employer] (CHEST, 1992, 102:312S-25S) recommended therapeutic range for oral anticoagulant therapy is: LOW RISK: Prophylaxis of venous thrombosis INR: 2.0-3.0 Treatment of pulmonary embolism 2.0-3.0 Prevention of systemic embolism 2.0-3.0 HIGH RISK: Mechanical prosthetic valves 2.5-3.5 Performed By: #### G MEGA BOWMAN ANEU, BMP, CBC #### [address] [address] TROPHSon 09-08-2024 High Sensitivity Troponin I 9 ng/L Normal 0-76 [facility] Comment on above: Result Comment: High Sensitive Troponin I Reference Ranges: Female: 0-51 ng/L Male: 0-76 ng/L Testing performed on Fixed - Parking Tickets using a homogeneous sandwich chemiluminescent immunoassay based on [employer] technology. Performed By: #### MEGA RIVAS, ANEU, BMP, CBC #### [address] [address] UAon 09-08-2024 Color (U) Yellow Normal [facility] Comment on above: Performed By: #### G FR ADLAVONNE ANEU, BMP, CBC #### [address] [address] Glucose (U) [Mass/Vol] Negative Normal Negative [facility] Comment on above: Performed By: #### G FR, ADLAVONNE, ANEU, BMP, CBC #### [address] [address] Ketones Ql (U) Negative Normal Negative [facility] Comment on above: Performed By: #### G FR, ADIFF, ANEU, BMP, CBC #### [place] [address] UA Appear Clear Normal Clear [facility] Comment on above: Performed By: #### G FR, ADIFF, ANEU, BMP, CBC #### [place] [address] UA Blood Negative Normal Negative [facility] Comment on above: Performed By: #### G FR, ADIFF, ANEU, BMP, CBC #### [place] [address] UA Leuk Est Negative Normal Negative [facility] Comment on above: Performed By: #### G FR, ADIFF, ANEU, BMP, CBC #### [place] [address] UA Nitrite Negative Normal Negative [facility] Comment on above: Performed By: #### G FR, ADIFF, ANEU, BMP, CBC #### [place] [address] UA pH 6.5 Normal 5.0 - 8.0 [facility] Comment on above: Performed By: #### G FR, ADIFF, ANEU, BMP, CBC #### [place] [address] UA Protein Negative Normal Negative [facility] Comment on above: Performed By: #### G FR, ADIFF, ANEU, BMP, CBC #### [place] [address] UA Spec Grav <=1.005 Abnormal 1.015-1.02 5 [facility] Comment on above: Performed By: #### G FR, ADIFF, ANEU, BMP, CBC #### [place] [address] UA Specimen Type Not Given Normal [facility] Comment on above: Performed By: #### G FR, ADIFF, ANEU, BMP, CBC #### [address] [address] UA Urobilinogen 0.2 E.U./dL Normal 0.2-1.0 [facility] Comment on above: Performed By: #### G FR, ADIFF, ANEU, BMP, CBC #### [facility] [address] [place], [place] [address] Urobilinogen (U) [Mass/Vol] Negative Normal Negative [facility] Comment on above: Performed By: #### G FR, ADIFF, ANEU, BMP, CBC #### [facility] [address] [place], [place] [address] XR CHEST 1 VIEWon 09-08-2024 XR CHEST 1 VIEW ORIGINAL EXAMINATION: ONE XRAY VIEW OF THE CHEST09/08/2024 10:20 am COMPARISON: None available at time of dictation. HISTORY: ORDERING SYSTEM PROVIDED HISTORY: Reason for Exam: hypotension FINDINGS: There is slight cardiomegaly present on exam. Sternotomy wires and sternal hardware are visualized. There is an electronic device overlying the left thorax. No focal consolidation or pulmonary edema. No pneumothorax or pleural effusion. No acute osseous abnormalities. IMPRESSION: No acute radiographic findings. I have personally reviewed the images of this examination and agree with the resident's findings and interpretation. Interpreted by: Kobe Pike Preliminary Report By: Dhara Barrow Electronically signed By Kobe Pike Dictated Date: 09/08/2024 10:28:53 AM Prelim Date: 09/08/2024 10:36:22 AM Sign Date: 09/08/2024 10:36:22 AM Ordering Provider: HERSON Rainey [facility] ANES POSTPROC EVALon 025 ANES POSTPROC EVAL HNO ID: [id number] Author: TALAT VILLAREAL DO Service: Anesthesiology Author Type: Anesthesiologist Type: Anesthesia Postprocedure Evaluation Filed: 09/01/2024 13:54 Note Text: POST ANESTHESIA EVALUATION NOTE : 1945 Procedure Summary Date: 09/01/24 Room / Location: [facility] [place] [facility] Endoscopy Anesthesia Start: 0841 Anesthesia Stop: 934 Procedure: COLONOSCOPY SCREENING Diagnosis: Screen for colon cancer History of colonic polyps (High risk colon cancer surveillance: Personal History of adenomatous polyps) Scheduled Providers: Francisca Vazquez MD; Talat Villareal DO Responsible Provider: Talat Villareal DO Anesthesia Type: MAC ASA Status: 3 Anesthesia Type: MAC Last Vitals Vitals Value Taken Time BP 180/94 09/01/24 0958 Temp 36.3 ?C (97.3 ?F) 09/01/24 0940 Pulse 56 09/01/24 0958 Resp 18 09/01/24 0958 SpO2 99 % 09/01/24 0958 Post Anesthesia Patient Status Patient Evaluation: PACU. PACU/ICU Patient Condition: stable. Anticipated Disposition: phase 2 then home. Neurological Status: aware and responsive. Pulmonary Status: breathing comfortably on room air Airway Control: returned to baseline unsupported. Cardiovascular Status: stable. Pain Management: clinically adequate Postoperative Hydration: acceptable. Intraoperative Events: no significant anesthesia events Post Operative Nausea/Vomiting Status: no significant post operative nausea or vomiting Recommendation: continue current plan of care and further care per PACU/ICU/floor team. Anesthesia Observations No Documentation SIGNATURE: Talat Villareal DO PATIENT NAME: Homero Mei DATE: September 01, 2024 TIME: 1:54 PM CSN: [id number] Normal [facility] [place] [facility] ANES PRE-OPon 09-01-2024 ANES PRE-OP HNO ID: [id number] Author: TALAT VILLAREAL DO Service: Anesthesiology Author Type: Anesthesiologist Type: Anesthesia Preprocedure Evaluation Filed: 09/01/2024 07:53 Note Text: ANESTHESIOLOGY DAY OF SURGERY NOTE : 1945 Procedure Information Date/Time: 09/01/2415 Scheduled providers: Francisca Vazquez MD; Talat Villareal DO Procedure: COLONOSCOPY SCREENING Location: [facility] [place] [facility] Endoscopy Estimated body mass index is 25.73 kg/m? as calculated from the following: Height as of this encounter: 185.4 cm (6' 1). Weight as of this encounter: 88.5 kg (195 lb). Most recent hematocrit and potassium results: Hematocrit 39.6 08/25/2024 Hematocrit (POCT) 29 02/28/2024 Potassium 4.8 08/25/2024 Potassium (POCT) 3.8 02/28/2024 Relevant Problems ANESTHESIA (+) CHRISTIANO (obstructive sleep apnea) CARDIO (+) Coronary artery disease involving [place]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[place] heart without angina pectoris (+) Essential hypertension (+) Postoperative atrial fibrillation (HCC) NEURO-PSYCH (+) Personal history of colonic polyps PULMONARY (+) CHRISTIANO (obstructive sleep apnea) Other (+) Impingement syndrome of right shoulder I - PHYSICAL EVALUATION AIRWAY Patient intubated: No. Tracheostomy tube not present Mallampati: II. TM distance: >3 FB. Neck ROM: full ROM without neurological symptoms. Mouth opening: adequate. Short neck: no. Thick neck: no DENTAL Dental findings: teeth intact. II - ANESTHESIA PLAN ASA Score: 3 Anesthetic Plan: MAC NPO Status: adequate Beta Darcy Monitoring Plan Monitoring plan: standard ASA. Post Procedure Analgesic Plan Postoperative analgesic plan: parenteral or oral opioids. Informed Consent Anesthetic risks, benefits, alternatives, personnel and consent discussed: yes. Patient / Responsible [employer] Party agrees to proceed: yes Patient / Surrogate agrees to blood products: Yes DNR status not reviewed with patient and/or family prior to surgery. Significant changes in the patient condition since the History and Physical, not otherwise documented in primary service progress note: no. Potential Anesthesia issues that may suggest increased risk of complications or contraindication to planned procedure: none. Vitals Value Taken Time BP Pulse Resp 18 09/01/24 0748 Temp 36.2 ?C (97.2 ?F) 09/01/24 0748 SpO2 98 % 09/01/24 0748 Outpatient Medications as of 09/01/2024 Medication Sig metoprolol tartrate, short acting, (LOPRESSOR) 25 mg tablet Take 0.5 tablets by mouth two times a day. Hold for HR <60 and/or SBP <100 furosemide (LASIX) 20 mg tablet Take 1 tablet by mouth two times a day. atorvastatin (LIPITOR) 40 mg tablet Take 1 tablet by mouth once daily. donepezil (ARICEPT) 10 mg tablet Take 1 tablet by mouth daily with breakfast. cyanocobalamin (VITAMIN B-12) 1,000 mcg tab Take 1 tablet by mouth once daily. memantine (NAMENDA) 5 mg tablet Take 1 tablet by mouth once daily. lisinopril (ZESTRIL) 40 mg tablet Take 40 mg by mouth once daily. ferrous sulfate 325 mg (65 mg iron) tablet Take 325 mg by mouth every 24 hours. senna-docusate (SENNA WITH DOCUSATE SODIUM) 8.6-50 mg per tablet Take 1 tablet by mouth once daily. senna-docusate (SENNA WITH DOCUSATE SODIUM) 8.6-50 mg per tablet Take 1 tablet by mouth once daily as needed for constipation. aspirin, enteric coated (ASPIRIN, ENTERIC COATED) 81 mg EC tablet Take 1 tablet by mouth once daily. docusate sodium (COLACE) 100 mg capsule Take 1 capsule by mouth two times a day as needed for constipation. tamsulosin (FLOMAX) 0.4 mg Take 1 capsule by mouth two times a day. ascorbic acid, vitamin C, (VITAMIN C) 500 mg tablet Take 1 tablet by mouth once daily. folic acid 1 mg tablet Take 1 tablet by mouth once daily. magnesium oxide (MAG-OX) 400 mg (241.3 mg magnesium) tablet Take 1 tablet by mouth once daily. polyethylene glycol 3350 17 gram packet Take 1 Packet by mouth once daily. Dissolve dose in 4 - 8 ounces of liquid and take as directed. fluticasone (FLONASE) 50 mcg/actuation nasal spray Use 2 Sprays in each nostril once daily as needed. cholecalciferol (VITAMIN D3) 1,000 unit tab tablet Take by mouth once daily. Taking 25 MCG daily vit C/E/Zn/coppr/lutein/zeaxan (PRESERVISION AREDS-2 ORAL) Take 1 capsule by mouth two times a day. latanoprost (XALATAN) 0.005 % ophthalmic solution Use 1 Drop in both eyes daily at bedtime. pantoprazole DR (PROTONIX) 40 mg tablet Take 40 mg by mouth once daily. ELIQUIS 5 mg tab(s) Take 5 mg by mouth two times a day. lactobacillus combination no.4 (PROBIOTIC) 3 billion cell cap Take 1 capsule by mouth once daily. melatonin 3 mg capsules Take 1 capsule by mouth at bedtime as needed for insomnia. Facility-Administered Medications as of 09/01/2024 Medication Dose Route Frequency lactated ringers iv infusion 30 mL/hr INTRAVENOUS CONTINUOUS I have interviewed and examined the patient. I have reviewed the medical record and (more content not included)... Normal [facility] [place] [facility] Colonoscopyon 09-01-2024 Colonoscopy [facility] [place] [facility] Gastrointestinal Endoscopy Patient Name: Homero Mei Procedure Date: 09/01/2024 8:32 AM Date of : 1945 Admit Type: Outpatient Age: 78 Room: [facility] Gender: Male Note Status: Finalized Attending MD: Francisca Vazquez MD, [id number] Procedure: Colonoscopy Indications: High risk colon cancer surveillance: Personal history of adenomatous colonic polyps Providers: Francisca Vazquez MD Patient Profile: This is a 78 year old male. Refer to note in patient chart for documentation of history and physical. Last Colonoscopy: 3 years ago. Referring Physician: Melani Curtis (Referring MD) Medicines: Monitored Anesthesia Care Complications: No immediate complications. Requesting Provider: Procedure: Pre-Anesthesia Assessment: - Prior to the procedure, a History and Physical was performed, and patient medications and allergies were reviewed. The patient is competent. The risks and benefits of the procedure and the sedation options and risks were discussed with the patient. All questions were answered and informed consent was obtained. Patient identification and proposed procedure were verified by the physician, the nurse and the hospital wellness coordinator in the procedure room. Mental Status Examination: alert and oriented. Respiratory Examination: clear to auscultation. Prophylactic Antibiotics: The patient does not require prophylactic antibiotics. Prior Anticoagulants: The patient has taken no anticoagulant or antiplatelet agents. ASA Grade Assessment: III - A patient with severe systemic disease. After reviewing the risks and benefits, the patient was deemed in satisfactory condition to undergo the procedure. The anesthesia plan was to use moderate sedation / analgesia (conscious sedation). Immediately prior to administration of medications, the patient was re-assessed for adequacy to receive sedatives. The heart rate, respiratory rate, oxygen saturations, blood pressure, adequacy of pulmonary ventilation, and response to care were monitored throughout the procedure. The physical status of the patient was re-assessed after the procedure. After I obtained informed consent, the scope was passed under direct vision. Throughout the procedure, the patient's blood pressure, pulse, and oxygen saturations were monitored continuously. The Colonoscope was introduced through the anus and advanced to the cecum, identified by the appendiceal orifice, ileocecal valve and palpation. The colonoscopy was performed without difficulty. The patient tolerated the procedure well. The quality of the bowel preparation was good. The ileocecal valve, appendiceal orifice, and rectum were photographed. Scope Withdrawal Time: 0 hours 14 minutes 24 seconds Moderate Sedation: MAC anesthesia was administered by the anesthesia team. Total Procedure Duration: 0 hours 22 minutes 38 seconds Findings: The perianal and digital rectal examinations were normal. Three sessile polyps were found in the transverse colon and cecum. The polyps were small (4-6 mm) in size. These polyps were removed with a hot snare. Resection and retrieval were complete. An 18 mm polyp was found in the hepatic flexure. The polyp was sessile. The polyp was removed with a piecemeal technique using a hot snare. Resection and retrieval were complete. Many small-mouthed diverticula were found in the left colon. The exam was otherwise without abnormality on direct and retroflexion views. Impression: - Three small (4-6 mm) polyps in the transverse colon and in the cecum, removed with a hot snare. Resected and retrieved. - One 18 mm polyp at the hepatic flexure, removed piecemeal using a hot snare. Resected and retrieved. - Diverticulosis in the left colon. - The examination was otherwise normal on direct and retroflexion views. Recommendation: - Discharge patient to home. - Resume previous diet. - Continue present medications. - Repeat colonoscopy in 1 year for surveillance of multiple polyps. - Telephone nurse practitioner for pathology results in 1 week. - Patient has a contact number available for emergencies. The signs and symptoms of potential delayed complications were discussed with the patient. Return to normal activities tomorrow. Written discharge instructions were provided to the patient. Procedure Code(s): --- Professional --- 67273, Colonoscopy, flexible; with removal of tumor(s), polyp(s), or other lesion(s) by snare technique CPT copyright 2020 [employer]. All rights reserved. The codes documented in this report are preliminary and upon information coder review may be revised to meet current compliance requirements. Attending Participation: I personally performed the entire procedure. Scope In: 9:09:52 AM Scope Out: 9:32:30 AM MD Francisca Munoz MD (more content not included)... Normal [facility] [place] [facility] Colonoscopy Study observatio non 09-01-2024 [facility] [place] [facility] Gastrointestinal Endoscopy Patient Name: Homero Mei Procedure Date: 09/01/2024 8:32 AM Date of : 1945 Admit Type: Outpatient Age: 78 Room: [facility] Gender: Male Note Status: Finalized Attending MD: Francisca Vazquez MD, [id number] Procedure: Colonoscopy Indications: High risk colon cancer surveillance: Personal history of adenomatous colonic polyps Providers: Francisca Vazquez MD Patient Profile: This is a 78 year old male. Refer to note in patient chart for documentation of history and physical. Last Colonoscopy: 3 years ago. Referring Physician: Melani Curtis (Referring MD) Medicines: Monitored Anesthesia Care Complications: No immediate complications. Requesting Provider: Procedure: Pre-Anesthesia Assessment: - Prior to the procedure, a History and Physical was performed, and patient medications and allergies were reviewed. The patient is competent. The risks and benefits of the procedure and the sedation options and risks were discussed with the patient. All questions were answered and informed consent was obtained. Patient identification and proposed procedure were verified by the physician, the nurse and the hospital wellness coordinator in the procedure room. Mental Status Examination: alert and oriented. Respiratory Examination: clear to auscultation. Prophylactic Antibiotics: The patient does not require prophylactic antibiotics. Prior Anticoagulants: The patient has taken no anticoagulant or antiplatelet agents. ASA Grade Assessment: III - A patient with severe systemic disease. After reviewing the risks and benefits, the patient was deemed in satisfactory condition to undergo the procedure. The anesthesia plan was to use moderate sedation / analgesia (conscious sedation). Immediately prior to administration of medications, the patient was re-assessed for adequacy to receive sedatives. The heart rate, respiratory rate, oxygen saturations, blood pressure, adequacy of pulmonary ventilation, and response to care were monitored throughout the procedure. The physical status of the patient was re-assessed after the procedure. After I obtained informed consent, the scope was passed under direct vision. Throughout the procedure, the patient's blood pressure, pulse, and oxygen saturations were monitored continuously. The Colonoscope was introduced through the anus and advanced to the cecum, identified by the appendiceal orifice, ileocecal valve and palpation. The colonoscopy was performed without difficulty. The patient tolerated the procedure well. The quality of the bowel preparation was good. The ileocecal valve, appendiceal orifice, and rectum were photographed. Scope Withdrawal Time: 0 hours 14 minutes 24 seconds Moderate Sedation: MAC anesthesia was administered by the anesthesia team. Total Procedure Duration: 0 hours 22 minutes 38 seconds Findings: The perianal and digital rectal examinations were normal. Three sessile polyps were found in the transverse colon and cecum. The polyps were small (4-6 mm) in size. These polyps were removed with a hot snare. Resection and retrieval were complete. An 18 mm polyp was found in the hepatic flexure. The polyp was sessile. The polyp was removed with a piecemeal technique using a hot snare. Resection and retrieval were complete. Many small-mouthed diverticula were found in the left colon. The exam was otherwise without abnormality on direct and retroflexion views. Impression: - Three small (4-6 mm) polyps in the transverse colon and in the cecum, removed with a hot snare. Resected and retrieved. - One 18 mm polyp at the hepatic flexure, removed piecemeal using a hot snare. Resected and retriev (more content not included)... [facility] Radiology Study observation (narrative) [facility] HISTORY PHYSICALon HISTORY PHYSICAL HNO ID: [id number] Author: FRANCISCA VAZQUEZ MD Service: General Surgery Author Type: Physician Type: H&P Filed: 09/01/2024 08:38 Note Text: HISTORY AND PHYSICAL Homero Mei : 1945 REFERRING PHYSICIAN: No referring provider defined for this encounter. CHIEF COMPLAINT: Patient presents with: Consult: colonoscopy HPI: Homero is a 78 year old male referred for endoscopy. Homero notes due for colon cancer screening- hx of polyps (2020). Homero denies abdominal pain. Homero denies diarrhea. Homero notes occasional constipation. -relieved with stool softeners Homero denies a change in bowel habits. Homero denies melena. -notes dark stools from iron Homero denies bright red blood per rectum. Homero denies hemorrhoids. Homero denies family history of colon issues. Homero denies heartburn. Homero denies dysphagia. Homero notes a history of ulcers/ peptic ulcer disease. -currently following with Dr. Diaz Homero underwent CABG x 3 02/[address] Iqbal- [facility] cardiology S/P procedure he was noted to have A.Fib AND bilateral edema. Edema has improved with lasix, unsure if patient is still taking eliquis?? Other medical history is significant for CHRISTIANO, alzheimer's, PAM and DDD. Homero has undergone prior endoscopy. Last colonoscopy was 04/[address] Stock at [facility]. Sedation:Midazolam 6 mg IV, Fentanyl 125 micrograms IV Impression: - One 40 mm polyp in the cecum, removed with mucosal resection. Resected and retrieved. Clip was placed. - Two 5 mm polyps in the transverse colon and in the ascending colon, removed with a cold snare. Resected and retrieved. - Mucosal resection was performed. Resection and retrieval were complete. CONVERTED FINAL DIAGNOSIS 1. Hepatic flexure, polypectomy x2 (A) - Single piece of colonic mucosa with focal hyperplastic changes. - No evidence of adenoma. 2. Cecum, polypectomy (B) - Fragments of tubular adenoma. TP/ka 04/28/2020 Homero underwent EGD for anemia with Dr. Diaz 03/31/24. Sedation: MAC Impressions : - Normal esophagus. - Non-bleeding gastric ulcer with no stigmata of bleeding. Biopsied. - Normal first portion of the duodenum. CURRENT MEDICATIONS Current Outpatient Medications Medication Sig ELIQUIS 5 mg tab(s) Take 5 mg by mouth two times a day. lisinopril (ZESTRIL) 40 mg tablet Take 40 mg by mouth once daily. ferrous sulfate 325 mg (65 mg iron) tablet Take 325 mg by mouth every 24 hours. potassium chloride ER (KLOR-CON) 20 mEq tablet Take 1 tablet by mouth two times a day. furosemide (LASIX) 40 mg tablet Take 1 tablet by mouth two times a day. senna-docusate (SENNA WITH DOCUSATE SODIUM) 8.6-50 mg per tablet Take 1 tablet by mouth once daily. senna-docusate (SENNA WITH DOCUSATE SODIUM) 8.6-50 mg per tablet Take 1 tablet by mouth once daily as needed for constipation. acetaminophen (TYLENOL) 500 mg tablet Take 2 tablets by mouth every 8 hours as needed for pain. aspirin, enteric coated (ASPIRIN, ENTERIC COATED) 81 mg EC tablet Take 1 tablet by mouth once daily. metoprolol tartrate, short acting, (LOPRESSOR) 25 mg tablet Take 0.5 tablets by mouth two times a day. Hold for HR <60 and/or SBP <100 lactobacillus combination no.4 (PROBIOTIC) 3 billion cell cap Take 1 capsule by mouth once daily. docusate sodium (COLACE) 100 mg capsule Take 1 capsule by mouth two times a day as needed for constipation. melatonin 3 mg capsules Take 1 capsule by mouth at bedtime as needed for insomnia. tamsulosin (FLOMAX) 0.4 mg Take 1 capsule by mouth two times a day. ascorbic acid, vitamin C, (VITAMIN C) 500 mg tablet Take 1 tablet by mouth once daily. folic acid 1 mg tablet Take 1 tablet by mouth once daily. magnesium oxide (MAG-OX) 400 mg (241.3 mg magnesium) tablet Take 1 tablet by mouth once daily. polyethylene glycol 3350 17 gram packet Take 1 Packet by mouth once daily. Dissolve dose in 4 - 8 ounces of liquid and take as directed. fluticasone (FLONASE) 50 mcg/actuation nasal spray Use 2 Sprays in each nostril once daily as needed. cholecalciferol (VITAMIN D3) 1,000 unit tab tablet Take by mouth once daily. Taking 25 MCG daily donepezil (ARICEPT) 10 mg tablet Take 1 tablet by mouth daily with breakfast. atorvastatin (LIPITOR) 40 mg tablet Take 1 tablet by mouth once daily. vit C/E/Zn/coppr/lutein/zeaxan (PRESERVISION AREDS-2 ORAL) Take 1 capsule by mouth two times a day. latanoprost (XALATAN) 0.005 % ophthalmic solution Use 1 Drop in both eyes daily at bedtime. cyanocobalamin (VITAMIN B-12) 1,000 mcg tab Take 1 tablet by mouth once daily. pantoprazole DR (PROTONIX) 40 mg tablet Take 40 mg by mouth once daily. No current facility-administered medications for this visit. ALLERGIES: Patient has no known allergies. PAST MEDICAL HISTORY PAST MEDICAL HISTORY Diagnosis Date Alzheimer's dementia without behavioral disturbance, psychotic disturbance, mood disturbance, or (more content not included)... [facility] Pathology biopsy report Gurmeet (Tiss)on 09-01-2024 AP DISCLAIMER [facility] Comment on above: Order Comment: Speci men Type: TISSUE SPECIMENOrdering Facility: [facility] Address: [address] [place] [address] Result Comment: Efrain Fonseca Test (LDT) Disclaimer: Performance characteristics of immunohistochemical, immunofluorescent, and chromogenic in-situ hybridization tests have been determined by the performing laboratory within [facility]'s rBo Silva Pathology and Laboratory Medicine Department ([facility], [facility], [facility], [facility], [facility], [facility], or [facility]) in a manner consistent with CLIA requirements. One or more of these tests may not have been cleared or approved by the FDA. [facility] is regulated under CLIA as qualified to perform high-complexity testing. These tests are used for clinical purposes. These should not be regarded as investigational or for research. Positive and negative controls stain appropriately. Performed By: #### 6 6121-5 ####[facility] LABCLIA [id number] [address] OF PRECIOUS CASE REPORT Normal [facility] Comment on above: Order Comment: Speci men Type: TISSUE SPECIMENOrdering Facility: [facility] Address: [address] [place] [address] Result Comment: Surg [facility] Pathology Report Case: [id number] Authorizing Provider: Francisca Vazquez MD Collected: 09/01/2024 09:20 AM Ordering Location: [facility] Endoscopy Received: 09/01/2024 10:32 AM Pathologist: Kobe Hutson MD Specimens: A) - Colon, Cecum, Polyp, Cecal Polyps times 2 B) - Colon, Hepatic Flexure, Polyp C) - Colon, Transverse, Polyp Performed By: #### 6 6121-5 ####[facility] LABCLIA [id number] [address] FINAL DIAGNOSIS Normal [facility] Comment on above: Order Comment: Speci men Type: TISSUE SPECIMENOrdering Facility: [facility] Address: [address] [place] [address] Result Comment: A. C ecum, polypectomy: - Fragments of tubular adenoma. B. Hepatic flexure, polypectomy: - Fragments of tubular adenoma. C. Transverse colon, polypectomy: - Fragments of tubular adenoma. at 1440 EDT Performed By: #### 6 6121-5 ####[facility] LABCLIA [id number] [place] [id number] [facility] FINAL PERFORMING LAB Normal [facility] Comment on above: Order Comment: Speci men Type: TISSUE SPECIMENOrdering Facility: [facility] Address: [address] [place] [address] Result Comment: Diag nostic interpretation performed at: [facility], [address] [place] [address], [facility] [address] [address] CLIA# [id number] Policy Writer: Henrry Mendieta MD Performed By: #### 6 6121-5 ####[facility] LABCLIA [id number] [place] [address] [place] GROSS DESCRIPTION [facility] Comment on above: Order Comment: Speci men Type: TISSUE SPECIMENOrdering Facility: [facility] Address: [address] [place] [address] Result Comment: A. C olon, Cecum, Polyp Received in formalin are two pieces of red-gao, soft tissue aggregating to 0.6 x 0.4 x 0.3 cm. Totally submitted in one cassette. B. Colon, Hepatic Flexure, Polyp Received in formalin are multipe gao-pink polypoid segments of tissue measuring 1.1 x 0.8 x 0.4 cm to 0.7 x 0.3 x 0.4 cm. No stalks are noted. The apparent lines of resection are noted. The specimens are bisected. Also received in the same container are multiple gao, soft tissue aggregating to 0.7 x 0.7 x 0.4 cm. Totally submitted in two cassettes. C. Colon, Transverse, Polyp Received in formalin are multiple pieces of gao, soft tissue aggregating to 0.5 x 0.5 x 0.3 cm. Totally submitted in one cassette. CL September 01, 2024 2:03 PM Gross examination performed at [facility], [address] [place] [address] Performed By: #### 6 6121-5 ####[facility] LABCLIA [id number] [address] [address] [place] CNOVon 08-29-2024 CNOV Normal [facility] CNPNon 08-29-2024 CNPN Normal [facility] CNPNon 08-28-2024 CNPN Normal [facility] CNPNon 08-27-2024 CNPN Normal [facility] CNPNon 08-26-2024 CNPN Normal [facility] CBC panel Auto (Bld)on 08-25 Erythrocyte distribution width (RBC) [Ratio] 15.9 % High 11.5-15.0 [facility] Comment on above: Order Comment: Speci men Type: BLOOD SPECIMENOrdering Facility: [facility] Address: [address] [place] [address] Performed By: #### 5 8410-2 ####[facility] [id number] [place] [address] [place] Hematocrit (Bld) [Volume fraction] 39.6 % Normal 39.0-51.0 [facility] Comment on above: Order Comment: Speci men Type: BLOOD SPECIMENOrdering Facility: [facility] Address: [address] [place] [address] Performed By: #### 5 8410-2 ####[facility] [id number] [place] [address] [place] Hemoglobin (Bld) [Mass/Vol] 13.2 g/dL Normal 13.0-17.0 [facility] Comment on above: Order Comment: Speci men Type: BLOOD SPECIMENOrdering Facility: [facility] Address: [address] [place] [address] Performed By: #### 5 8410-2 ####[facility] [id number] [place] [address] [place] MCH (RBC) [Entitic mass] 28.8 pg Normal 26.0-34.0 [facility] Comment on above: Order Comment: Speci men Type: BLOOD SPECIMENOrdering Facility: [facility] Address: [address] [place] [address] Performed By: #### 5 8410-2 ####[facility] [id number] [place] [address] [place] MCHC (RBC) [Mass/Vol] 33.3 g/dL Normal 30.5-36.0 [facility] Comment on above: Order Comment: Speci men Type: BLOOD SPECIMENOrdering Facility: [facility] Address: [address] [place] [address] Performed By: #### 5 8410-2 ####[facility] [id number] [place] [address] [place] MCV (RBC) [Entitic vol] 86.5 fL Normal 80.0-100.0 [facility] Comment on above: Order Comment: Speci men Type: BLOOD SPECIMENOrdering Facility: [facility] Address: [address] [place] [address] Performed By: #### 5 8410-2 ####[facility] [id number] [place] [address] [place] Nucleated RBC (Bld) [#/Vol] 10*3/uL Normal <0.01 [facility] Comment on above: Order Comment: Speci men Type: BLOOD SPECIMENOrdering Facility: [facility] Address: [address] [place] [address] Performed By: #### 5 8410-2 ####[facility] [id number] [place] [address] [place] Platelet mean volume (Bld) [Entitic vol] 10.4 fL Normal 9.0-12.7 [facility] Comment on above: Order Comment: Speci men Type: BLOOD SPECIMENOrdering Facility: [facility] Address: [address] [place] [address] Performed By: #### 5 8410-2 ####[facility] [id number] [place] [address] [place] Platelets (Bld) [#/Vol] 173 10*3/uL Normal 150-400 [facility] Comment on above: Order Comment: Speci men Type: BLOOD SPECIMENOrdering Facility: [facility] Address: [address] [place] [address] Performed By: #### 5 8410-2 ####[facility] [id number] [place] [address] [place] RBC (Bld) [#/Vol] 4.58 10*6/uL Normal 4.20-6.00 [facility] Comment on above: Order Comment: Speci men Type: BLOOD SPECIMENOrdering Facility: [facility] Address: [address] [place] [address] Performed By: #### 5 8410-2 ####[facility] [id number] [place] [address] [place] WBC (Bld) [#/Vol] 6.88 10*3/uL Normal 3.70-11.00 [facility] Comment on above: Order Comment: Speci men Type: BLOOD SPECIMENOrdering Facility: [facility] Address: [address] [place] [address] Performed By: #### 5 8410-2 ####[facility] [id number] [place] [address] [place] CNOVon 08-25-2024 CNOV Normal [facility] CNPNon 08-25-2024 CNPN Normal [facility] Comprehensive metabolic 2000 panelon 08-25-2024 Albumin [Mass/Vol] 4.2 g/dL Normal 3.9-4.9 [facility] Comment on above: Order Comment: Speci men Type: BLOOD SPECIMENOrdering Facility: [facility] Address: [address] [place] [address] Performed By: #### 2 4323-8 ####[facility] LABCLIA [id number] [address] OF PRECIOUS ALP [Catalytic activity/Vol] 93 U/L Normal 38-113 [facility] Comment on above: Order Comment: Speci men Type: BLOOD SPECIMENOrdering Facility: [facility] Address: [address] [place] [address] Result Comment: Stacie ected result: Previously reported as 91 U/L on 08/25/2024 at 9:34 AM EDT. Performed By: #### 2 4323-8 ####[facility]CLIA [id number] [place] [address] [place] ALT [Catalytic activity/Vol] 20 U/L Normal 10-54 [facility] Comment on above: Order Comment: Speci men Type: BLOOD SPECIMENOrdering Facility: [facility] Address: [address] [place] [address] Result Comment: Stacie ected result: Previously reported as 17 U/L on 08/25/2024 at 9:34 AM EDT. Performed By: #### 2 4323-8 ####[facility]CL[facility] [id number] [place] [address] [place] Anion gap [Moles/Vol] 12 mmol/L Normal 8-15 [facility] Comment on above: Order Comment: Speci men Type: BLOOD SPECIMENOrdering Facility: [facility] Address: [address] [place] [address] Performed By: #### 2 4323-8 ####[facility]CLIA [id number] [place] [address] [place] AST [Catalytic activity/Vol] 12 U/L Low 14-40 [facility] Comment on above: Order Comment: Speci men Type: BLOOD SPECIMENOrdering Facility: [facility] Address: [address] [place] [address] Result Comment: Stacie ected result: Previously reported as 7 U/L on 08/25/2024 at 9:34 AM EDT. Performed By: #### 2 4323-8 ####[facility] LABCLIA [id number] [place] [id number] [place] Bilirubin [Mass/Vol] 0.5 mg/dL Normal 0.2-1.3 [facility] Comment on above: Order Comment: Speci men Type: BLOOD SPECIMENOrdering Facility: [facility] Address: [address] [place] [address] Performed By: #### 2 4323-8 ####[facility] LABCLIA [id number] [place] [address] [place] Calcium [Mass/Vol] 9.5 mg/dL Normal 8.5-10.2 [facility] Comment on above: Order Comment: Speci men Type: BLOOD SPECIMENOrdering Facility: [facility] Address: [address] [place] [address] Result Comment: Stacie ected result: Previously reported as 9.3 mg/dL on 08/25/2024 at 9:34 AM EDT. Performed By: #### 2 4323-8 ####[facility] LABIA [id number] [place] [address] [place] Chloride [Moles/Vol] 106 mmol/L Normal 98-107 [facility] Comment on above: Order Comment: Speci men Type: BLOOD SPECIMENOrdering Facility: [facility] Address: [address] [place] [address] Performed By: #### 2 4323-8 ####[facility] LABIA [id number] [place] [address] [place] CO2 [Moles/Vol] 24 mmol/L Normal 22-30 [facility] Comment on above: Order Comment: Speci men Type: BLOOD SPECIMENOrdering Facility: [facility] Address: [address] [place] [address] Result Comment: Stacie ected result: Previously reported as 23 mmol/L on 08/25/2024 at 9:34 AM EDT. Performed By: #### 2 4323-8 ####[facility]CLIA [id number] [address] [address] [place] Creatinine [Mass/Vol] 0.95 mg/dL Normal 0.73-1.22 [facility] Comment on above: Order Comment: Speccatrina sanchez Type: BLOOD SPECIMENOrdering Facility: [facility] Address: [address] [place] [address] Result Comment: Stacie ected result: Previously reported as 0.92 mg/dL on 08/25/2024 at 9:34 AM EDT. Performed By: #### 2 4323-8 ####[facility] LABIA [id number] [place] [address] [place] Creatinine and Glomerular filtration rate.predicted panel (S/P/Bld) 83 mL/min/1.73m??? Normal >=60 [facility] Comment on above: Order Comment: Speccatrina men Type: BLOOD SPECIMENOrdering Facility: [facility] Address: [address] [place] [address] Result Comment: Teri mated Glomerular Filtration Rate (eGFR) is calculated using the 2020 CKD-EPI creatinine equation. This equation utilizes serum creatinine, sex, and age as parameters. The creatinine assay has traceable calibration to isotope dilution-mass spectrometry. Refer to KDIGO guidelines for clinical interpretation. In patients with unstable renal function, e.g. those with acute kidney injury, the eGFR may not accurately reflect actual GFR.Corrected result: Previously reported as 86 mL/min/1.73m??? on 08/25/2024 at 9:34 AM EDT. Performed By: #### 2 4323-8 ####[facility] LABIA [id number] [address] [address] [place] Glucose [Mass/Vol] 96 mg/dL Normal 74-99 [facility] Comment on above: Order Comment: Rachid sanchez Type: BLOOD SPECIMENOrdering Facility: [facility] Address: [address] [place] [address] Result Comment: The [place] Diabetes Association (ADA) provides guidance for cutoff values for fasting glucose and random glucose. The ADA defines fasting as no caloric intake for at least 8 hours. Fasting plasma glucose results between 100 to 125 mg/dL indicate increased risk for diabetes (prediabetes).Fasting plasma glucose results greater than or equal to 126 mg/dL meet the criteria for diagnosis of diabetes. In the absence of unequivocal hyperglycemia, results should be confirmed by repeat testing. In a patient with classic symptoms of hyperglycemia or hyperglycemic crisis, random plasma glucose results greater than or equal to 200 mg/dL meet the criteria for diagnosis of diabetes.Reference: Standards of Medical Care in Diabetes 2016, [place] [employer] Association. Diabetes Care. 2016.39(Suppl 1).Corrected result: Previously reported as 99 mg/dL on 08/25/2024 at 9:34 AM EDT. Performed By: #### 2 4323-8 ####[facility]CL[facility] [id number] [place] [address] [place] Potassium [Moles/Vol] 4.8 mmol/L Normal 3.7-5.1 [facility] Comment on above: Order Comment: Speci men Type: BLOOD SPECIMENOrdering Facility: [facility] Address: [address] [place] [address] Performed By: #### 2 4323-8 ####[facility] LABIA [id number] [place] [address] [place] Protein [Mass/Vol] 6.6 g/dL Normal 6.3-8.0 [facility] Comment on above: Order Comment: Speci men Type: BLOOD SPECIMENOrdering Facility: [facility] Address: [address] [place] [address] Result Comment: Stacie ected result: Previously reported as 6.5 g/dL on 08/25/2024 at 9:34 AM EDT. Performed By: #### 2 4323-8 ####[facility] LABIA [id number] [place] [id number] [place] Sodium [Moles/Vol] 142 mmol/L Normal 136-144 [facility] Comment on above: Order Comment: Speci men Type: BLOOD SPECIMENOrdering Facility: [facility] Address: [address] [place] [address] Performed By: #### 2 4323-8 ####[facility] LABCLIA [id number] [address] [address] [place] Urea nitrogen [Mass/Vol] 18 mg/dL Normal 9-24 [facility] Comment on above: Order Comment: Speci men Type: BLOOD SPECIMENOrdering Facility: [facility] Address: [address] [place] [address] Result Comment: Stacie ected result: Previously reported as 19 mg/dL on 08/25/2024 at 9:34 AM EDT. Performed By: #### 2 4323-8 ####[facility]CL[facility] [id number] [address] [address] [place] HISTORY PHYSICALon 5 HISTORY PHYSICAL Normal [facility] Lipid 1996 panelon 5 Cholesterol [Mass/Vol] 168 mg/dL Normal <200 [facility] Comment on above: Order Comment: Speci men Type: BLOOD SPECIMENOrdering Facility: [facility] Address: [address] [place] [address] Result Comment: <200 mg/dL, Desirable 200-239 mg/dL, Borderline high>239 mg/dL, High Performed By: #### 2 4331-1 ####[facility]CLIA [id number] [address] [address] [place] [facility] [id number] [place] [address] [place]#### 82568-1 ####[facility]CLIA [id number] [address] [address] [place] Cholesterol in HDL [Mass/Vol] 43 mg/dL Normal >39 [facility] Comment on above: Order Comment: Speci men Type: BLOOD SPECIMENOrdering Facility: [facility] Address: [place] [address] Result Comment: 40-5 9 mg/dL, Acceptable>59 mg/dL, High: Negative risk factor for coronary heart disease<40 mg/dL, Low: Positive risk factor for coronary heart disease Performed By: #### 2 4331-1 ####[facility]CLIA [id number] [address] [id number] [place] [address] [place]#### 66734-9 ####[facility]CL[facility] [id number] [address] STATES [facility] Cholesterol in LDL [Mass/Vol] 111 mg/dL High <100 [facility] Comment on above: Order Comment: Speci men Type: BLOOD SPECIMENOrdering Facility: [facility] Address: [address] [place] [address] Result Comment: <100 mg/dL, Optimal 100-129 mg/dL, Near optimal/above optimal 130-159 mg/dL, Borderline high 160-189 mg/dL, High>189 mg/dL, Very highSecondary prevention optimal LDL Cholesterol levels are recommended to be <70 mg/dLLDL cholesterol is calculated using the Kiser-NIH equation. Performed By: #### 2 4331-1 ####[facility]CL[facility] [id number] [address] [id number] [place] [address] [place]#### 72057-5 ####[facility]CL[facility] [id number] [address] STATES OF PRECIOUS Cholesterol in LDL/Cholesterol in HDL [Mass ratio] 2.58 {ratio} High <2.54 [facility] Comment on above: Order Comment: Speci men Type: BLOOD SPECIMENOrdering Facility: [facility] Address: [address] [place] [address] Result Comment: Marga zapien:1. National Cholesterol Education Program ATP III Guideline At-A-Glance Quick Desk Reference: National Heart, Lung, and Blood [place]. National Institutes of Health. 2001: NIH Publication No. 01-3305.2. An International Atherosclerosis Society position paper: global recommendations for the management of dyslipidemia: executive summary, Atherosclerosis. 2014: 232(2):410-413. Performed By: #### 2 4331-1 ####[facility]CL[facility] [id number] [id number] [place] [address] STATES OF PRECIOUS#### 92466-9 ####[facility]CL[facility] [id number] [place] [address] [place] Cholesterol in VLDL [Mass/Vol] 13 mg/dL Normal <30 [facility] Comment on above: Order Comment: Speci men Type: BLOOD SPECIMENOrdering Facility: [facility] Address: [address] [place] [address] Performed By: #### 2 4331-1 ####[facility]CLIA [id number] [id number] [place] [address] STATES [facility]#### 01050-8 ####[facility]CL[facility] [id number] [address] STATES OF PRECIOUS Cholesterol non HDL [Mass/Vol] 125 mg/dL Normal <130 [facility] Comment on above: Order Comment: Speci men Type: BLOOD SPECIMENOrdering Facility: [facility] Address: [address] [place] [address] Result Comment: <130 mg/dL, Optimal 130-159 mg/dL, Near optimal/above optimal 160-189 mg/dL, Borderline high 190-219 mg/dL, High>219 mg/dL, Very highSecondary prevention optimal non HDL Cholesterol levels are recommended to be <100 mg/dL Performed By: #### 2 4331-1 ####[facility]CLIA [id number] [address] [place] [address] [place] OF [facility] [id number] [place] [address] [place]#### 18304-8 ####[facility]CL[facility] [id number] [place] [address] [place] Cholesterol.total/Chol esterol in HDL [Mass ratio] 3.91 {ratio} Normal <5.10 [facility] Comment on above: Order Comment: Speci men Type: BLOOD SPECIMENOrdering Facility: [facility] Address: [address] [place] [address] Performed By: #### 2 4331-1 ####[facility]CLIA [id number] [address], [id number] [place] [address] OF PRECIOUS#### 35612-2 ####[facility]CL[facility] [id number] [place] [id number] [place] STATES OF PRECIOUS FASTING TIME 12 hrs Normal [facility] Comment on above: Order Comment: Speci men Type: BLOOD SPECIMENOrdering Facility: [facility] Address: [address] [place] [address] Performed By: #### 2 4331-1 ####[facility]CL[facility] [id number] [address] [address] [facility] [id number] [address] STATES OF PRECIOUS#### 83056-5 ####[facility]CL[facility] [id number] [place] [address] [place] Triglyceride [Mass/Vol] 76 mg/dL Normal <150 [facility] Comment on above: Order Comment: Speci men Type: BLOOD SPECIMENOrdering Facility: [facility] Address: [address] [place] [address] Result Comment: <150 mg/dL, Normal 150-199 mg/dL, Borderline high 200-499 mg/dL, High>499 mg/dL, Very high Performed By: #### 2 4331-1 ####[facility] LABIA [id number] [address] STATES [place] [id number] [place] [address] OF PRECIOUS#### 08057-2 ####[facility] LABIA [id number] [address] STATES OF PRECIOUS NT-proBNP [facility] 08-25 Natriuretic peptide.B prohormone N-Terminal [Mass/Vol] 689 pg/mL High <450 [facility] Comment on above: Order Comment: Speci men Type: BLOOD SPECIMENOrdering Facility: [facility] Address: [address] [place] [address] Performed By: #### 2 4331-1 ####[facility]CL[facility] [id number] [address] STATES [place] [id number] [place] [address] STATES OF PRECIOUS#### 53503-6 ####[facility] [id number] [place] [id number] [place] STATES OF PRECIOUS CNPNon 08-18-2024 CNPN [facility] CNPNon 08-06-2024 CNPN Normal [facility] CNOVon 08-04-2024 CNOV Normal [facility] CNPNon 07-31-2024 CNPN Normal [facility] No Panel InformationOrdered By: Cabrera Winters on 07-27-2024 [facility] [address] [place] [address] CR - Individual Treatment Plan MR#: [id number] Acct: [id number] Name: HOMERO MEI Rep #:[id number] : 1945 78 From: Cabrera Mei BS, RVT PCP: Dr. Moiz Chaudhary MD DOS: 07/25/24 Exercise - Initial Assessment Physician Prescribed Exercise Modalities: Jason Oglesby AD-7 and SciFit Stepper Nutrition - Initial Assessment Weight Mgt (Other Care) Height: 5 ft 11 in Weight:: 193 lb BMI: 26.9 Psychosocial - Initial Assess Target Goals Target Goals Referral to Behavioral Health PS - Interventions: Yes: Attend Stress Management Classes Patient Health Questionnaire PHQ-9 Screening 90-Day Re-eval Assessment: 1. Little interest or pleasure in doing things: Several days 2. Feeling down, depressed, or hopeless: Several days 3. Trouble falling or staying asleep, or sleeping too much: Not at all 4. Feeling tired or having little energy: Several days 5. Poor appetite or overeating: Not at all 6. Feeling bad about yourself -- or that you are a failure or have let yourself or your family down: Not at all 7. Trouble concentrating on things, such as reading the newspaper or watching television: Several days 8. Moving or speaking so slowly that other people could have noticed. Or the opposite - being so fidgety or restless that you have been moving around a lot more than usual: Not at all 9. Thoughts that you would be better off , or of hurting yourself in some way: Not at all How difficult have these problems made it for you to do your work, take care of things at home, or get along with other people?: Not difficult at all Total Score: 4 Self-Efficacy 6-Item Scale 90-Day Re-eval Assessment: We would like to know how confident you are in doing certain activities. Please select your confidence level for: Fatigue Select Number: 9 Physical Discomfort or Pain Select Number: 8 Emotional Distress Select Number: 7 Other Symptoms or Health Problems Select Number: 8 Different Tasks and Activities Select Number: 8 Medication Select Number: 6 Total Score:: 7 Nutrition Survey Nutrition Survey Instructions Scoring Instructions Exercise - 30-day Assessment Physician Prescribed Exercise Modalities: Schwinn Airdyne AD-7 and SciFit Stepper Exercise - 60-day Assessment Physician Prescribed Exercise Modalities: Schwinn Airdyne AD-7 and SciFit Stepper Exercise - 90-day Assessment Visit Date of Eval: 07/24/24 Session #:: 30 Physician Prescribed Exercise Modalities: Schwinn Airdyne AD-7 and SciFit Stepper Frequency: 3x/week for 12 weeks [36 sessions] Intensity: 60-80% of age predicted maximum heart rate reserve Duration: 30 - 45 minutes Current METSs:: 5.3 Target Heart Rate:: 86-115 Current RPE:: 14 Maximum Excercise HR:: 86 Resting Blood Pressure: 106/70 Maximum Exercise Blood Pressure: 122/74 EKG Type: NSR with rare PAC, Short run of tachycardia Outcomes & Goals Goals:: Verbalizes understanding of THR, RPE & goal METS by session 6, Documentsin home exercise log/reports 30 min aerobic 5 day/wk by DC, Demonstrates accurate pulse taking by DC and Other additional outcome/goals: see below Intervention & Plan Exercise Program Goals: Instruct on personal THR & RPE, Instruct on MET level & personal MET goal, Show patient to take own pulse /validate performance until accurate, Instruct on home exercise and Other additional plan/int Physical Activity Home Exercise Physical Activity - Home Exercise: Safe Exercise, Warm-up, Self-monitoring, Cool-Down, Home Exercise > 30 min Daily and Sitting Time <3 hours/daily Outcomes & Goals Outcomes/Goals: Demonstrates correct Warm-up/exercise Cool-Down (S3) if = 2.5 METs, Verbalizes symptoms of exercise intolerance by Session 3 (S3), Demonstratesafe equipment use (S3) & follows exercise prescrition (6) and Other: See below Intervention & Plan Plan/Intervention: Instruct warm-up & cool-down if exercising at > 2 METs, Instruct on symptoms of exercise intolerance & actions to take, Instruct & monitor on saf, Assess intial functional capacity & safety risk and Other See below 30-day Reassessments 30 day Reassessments:: Met Reassessment Notes & Comments:: Pt has been able to increase his exercise intensity and duration. Wii give pt his exercise prescription as well as community recourses to continue his exercise upon graduation Exercise - Final/Discharge Physician Prescribed Exercise Modalities: Schwinn Airdyne AD-7 and SciFit Stepper Nutrition - 30-Day Assessment Weight Mgt (Other Care) Height: 5 ft 11 in Weight:: 193 lb BMI: 26.9 Nutrition - 60-Day Assessment Weight Mgt (Other Care) Height: 5 ft 11 in Weight:: 193 lb BMI: 26.9 Core - 30-Day Assessment Hypertension [place] [employer] Hypertension Guidelines Reassessment Notes & Comments:: Pt's BP's are within AHA normal limits. Will continue to encourage a heart healthy low sodium diet. Core - Final Assessment Hypertension [place] [employer] Hypertension Guidelines Reassessment Notes (more content not included)... [facility] CNPNon 07-15-2024 CNPN [facility] No Panel InformationOrdered By: Cabrera Winters on 06-26-2024 [facility] [address] [place] [address] CR - Individual Treatment Plan MR#: [id number] Acct: [id number] Name: HOMERO MEI Rep #:[id number] : 1945 78 From: Cabrera Mei BS, RVT PCP: Dr. Moiz Chaudhary MD DOS: 06/25/24 Exercise - Initial Assessment Physician Prescribed Exercise Modalities: Danielinn Reny AD-7 and SciFit Stepper Nutrition - Initial Assessment Weight Mgt (Other Care) Height: 5 ft 11 in Weight:: 192 lb BMI: 26.7 Core - Initial Assessment Hypertension Resting Blood Pressure:: 89/62 [place] [employer] Hypertension Guidelines Psychosocial - Initial Assess Target Goals Target Goals Referral to Behavioral Health PS - Interventions: Yes: Attend Stress Management Classes Patient Health Questionnaire PHQ-9 Screening 60-Day Re-eval Assessment: 1. Little interest or pleasure in doing things: Several days 2. Feeling down, depressed, or hopeless: Several days 3. Trouble falling or staying asleep, or sleeping too much: Not at all 4. Feeling tired or having little energy: Several days 5. Poor appetite or overeating: Not at all 6. Feeling bad about yourself -- or that you are a failure or have let yourself or your family down: Not at all 7. Trouble concentrating on things, such as reading the newspaper or watching television: Several days 8. Moving or speaking so slowly that other people could have noticed. Or the opposite - being so fidgety or restless that you have been moving around a lot more than usual: Not at all 9. Thoughts that you would be better off , or of hurting yourself in some way: Not at all How difficult have these problems made it for you to do your work, take care of things at home, or get along with other people?: Not difficult at all Total Score: 4 Self-Efficacy 6-Item Scale 60-Day Re-eval Assessment: We would like to know how confident you are in doing certain activities. Please select your confidence level for: Fatigue Select Number: 9 Physical Discomfort or Pain Select Number: 8 Emotional Distress Select Number: 7 Other Symptoms or Health Problems Select Number: 8 Different Tasks and Activities Select Number: 8 Medication Select Number: 6 Total Score:: 7 Nutrition Survey Nutrition Survey Instructions Scoring Instructions Exercise - 30-day Assessment Physician Prescribed Exercise Modalities: Jason Gune AD-7 and SciFit Stepper Exercise - 60-day Assessment Visit Date of Eval: 06/26/24 Session #:: 19 Physician Prescribed Exercise Modalities: Schwinn vMobodyne AD-7 and SciFit Stepper Frequency: 3x/week for 12 weeks [36 sessions] Intensity: 60-80% of age predicted maximum heart rate reserve Duration: 30 - 45 minutes Current METSs:: 4.3 Target Heart Rate:: 86-108 Current RPE:: 14 Maximum Excercise HR:: 92 Resting Blood Pressure: 92/64 Maximum Exercise Blood Pressure: 110/76 EKG Type: NSR with rare PAC/PVC Outcomes & Goals Goals:: Verbalizes understanding of THR, RPE & goal METS by session 6, Documentsin home exercise log/reports 30 min aerobic 5 day/wk by DC, Demonstrates accurate pulse taking by DC and Other additional outcome/goals: see below Intervention & Plan Exercise Program Goals: Instruct on personal THR & RPE, Instruct on MET level & personal MET goal, Show patient to take own pulse /validate performance until accurate, Instruct on home exercise and Other additional plan/int Physical Activity Home Exercise Physical Activity - Home Exercise: Safe Exercise, Warm-up, Self-monitoring, Cool-Down, Home Exercise > 30 min Daily and Sitting Time <3 hours/daily Outcomes & Goals Outcomes/Goals: Demonstrates correct Warm-up/exercise Cool-Down (S3) if = 2.5 METs, Verbalizes symptoms of exercise intolerance by Session 3 (S3), Demonstratesafe equipment use (S3) & follows exercise prescrition (6) and Other: See below Intervention & Plan Plan/Intervention: Instruct warm-up & cool-down if exercising at > 2 METs, Instruct on symptoms of exercise intolerance & actions to take, Instruct & monitor on saf, Assess intial functional capacity & safety risk and Other See below 30-day Reassessments 30 day Reassessments:: Progressing Reassessment Notes & Comments:: Proper warm up and cool down explained to pt. Pt is able to return demonstration in his daily sessions. Exercise - 90-day Assessment Physician Prescribed Exercise Modalities: Schwinn Airdyne AD-7 and SciFit Stepper Exercise - Final/Discharge Physician Prescribed Exercise Modalities: Schwinn Airdyne AD-7 and SciFit Stepper Nutrition - 30-Day Assessment Weight Mgt (Other Care) Height: 5 ft 11 in Weight:: 192 lb BMI: 26.7 Nutrition - 60-Day Assessment Program Goals Nutrition Program Goals Patient has diagnosis of Hyperlipidemia (ICD E78)?: Yes Visit Date of Eval: 06/26/24 Session #:: 19 Cholesterol/Lipids (Other Core Measures) Determine presence & major risk factors that modify LDL goal: Hypertension or hypertensive medication, Low HDL cholesterol <40 mg/dL*, Family history of premature CHD in Male < 55 ye (more content not included)... [facility] CNOVon 06-25-2024 CNOV Normal [facility] ES CYSTOSCOPY (POC) FOR UROL OGY USE ONLYon 06-25-2024 [facility] Radiology Study observation (narrative) [facility] UA DIP, URINE (POC)on 2024 BILIRUBIN UA (POCT) Negative Negative [facility] CLARITY UA (POCT) Clear [facility] COLOR UA (POCT) Yellow [facility] GLUCOSE UA (POCT) Negative Negative mg/dL [facility] Hemoglobin Ql (U) Negative Negative [facility] KETONE UA (POCT) Negative Negative mg/dL [facility] LEUKOCYTES UA (POCT) Negative Negative [facility] NITRITE UA (POCT) Negative Negative [facility] PH UA (POCT) 5.5 4.5 - 8.0 [facility] Protein Ql (U) Negative Negative mg/dL [facility] SPECIFIC GRAVITY UA (POCT) 1.02 1.005 - 1.030 [facility] UROBILINOGEN UA (POCT) 0.2 Anna l E.U./dL [facility] Location:[facility], [address] [place] [address], [id number] [place] [address] POINT OF CARE [facility] CNPNon 06-06-2024 CNPN Normal [facility] CT UROGRAM WO/W IVCONon 04-0 CT UROGRAM WO/W IVCON Normal [facility] CNOVon 05-26-2024 CNOV Normal [facility] CNPTOUTREACHon 05-26-2024 CNPTOUTREACH Normal [facility] CNPTOUTREACHon 05-23-2024 CNPTOUTREACH Normal [facility] CNNURSEon 05-21-2024 CNNURSE Normal [facility] CNPNon 05-15-2024 CNPN Normal [facility] Basic metabolic 2000 panelon 05-09-2024 Anion gap [Moles/Vol] 9 mmol/L Normal 8-15 [facility] Comment on above: Order Comment: Speci men Type: BLOOD SPECIMENOrdering Facility: [facility] Address: [address] [place] [address] Performed By: #### 2 4321-2 ####[facility] LABCLIA [id number] [place] [address] [place] Calcium [Mass/Vol] 9.2 mg/dL Normal 8.5-10.2 [facility] Comment on above: Order Comment: Speci men Type: BLOOD SPECIMENOrdering Facility: [facility] Address: [address] [place] [address] Performed By: #### 2 4321-2 ####[facility] LABCLIA [id number] [place] [id number] [place] Chloride [Moles/Vol] 104 mmol/L Normal 98-107 [facility] Comment on above: Order Comment: Speci men Type: BLOOD SPECIMENOrdering Facility: [facility] Address: [address] [place] [address] Performed By: #### 2 4321-2 ####[facility] LABCLIA [id number] [place] [address] [place] CO2 [Moles/Vol] 25 mmol/L Normal 22-30 [facility] Comment on above: Order Comment: Speci men Type: BLOOD SPECIMENOrdering Facility: [facility] Address: [address] [place] [address] Performed By: #### 2 4321-2 ####[facility] LABCLIA [id number] [place] [address] [place] Creatinine [Mass/Vol] 1.34 mg/dL High 0.73-1.22 [facility] Comment on above: Order Comment: Speci men Type: BLOOD SPECIMENOrdering Facility: [facility] Address: [address] [place] [address] Performed By: #### 2 4321-2 ####[facility] LABCLIA [id number] [place] [id number] [place] Creatinine and Glomerular filtration rate.predicted panel (S/P/Bld) 55 mL/min/1.73m??? Low >=60 [facility] Comment on above: Order Comment: Speci men Type: BLOOD SPECIMENOrdering Facility: [facility] Address: [address] [place] [address] Result Comment: Teri mated Glomerular Filtration Rate (eGFR) is calculated using the 2020 CKD-EPI creatinine equation. This equation utilizes serum creatinine, sex, and age as parameters. The creatinine assay has traceable calibration to isotope dilution-mass spectrometry. Refer to KDIGO guidelines for clinical interpretation. In patients with unstable renal function, e.g. those with acute kidney injury, the eGFR may not accurately reflect actual GFR. Performed By: #### 2 4321-2 ####[facility] LABIA [id number] [address] [address] [place] Glucose [Mass/Vol] 98 mg/dL Normal 74-99 [facility] Comment on above: Order Comment: Rachid sanchez Type: BLOOD SPECIMENOrdering Facility: [facility] Address: [address] [place] [address] Result Comment: The [place] [employer] (ADA) provides guidance for cutoff values for fasting glucose and random glucose. The ADA defines fasting as no caloric intake for at least 8 hours. Fasting plasma glucose results between 100 to 125 mg/dL indicate increased risk for diabetes (prediabetes).Fasting plasma glucose results greater than or equal to 126 mg/dL meet the criteria for diagnosis of diabetes. In the absence of unequivocal hyperglycemia, results should be confirmed by repeat testing. In a patient with classic symptoms of hyperglycemia or hyperglycemic crisis, random plasma glucose results greater than or equal to 200 mg/dL meet the criteria for diagnosis of diabetes.Reference: Standards of Medical Care in Diabetes 2016, [place] [employer]. Diabetes Care. 2016.39(Suppl 1). Performed By: #### 2 4321-2 ####[facility] LABCLIA [id number] [address] [address] [place] Potassium [Moles/Vol] 4.9 mmol/L Normal 3.7-5.1 [facility] Comment on above: Order Comment: Rachid sanchez Type: BLOOD SPECIMENOrdering Facility: [facility] Address: [address] [place] [address] Performed By: #### 2 4321-2 ####[facility] LABCLIA [id number] [facility] [address] [address] [place] Sodium [Moles/Vol] 138 mmol/L Normal 136-144 [facility] Comment on above: Order Comment: Speci men Type: BLOOD SPECIMENOrdering Facility: [facility] Address: [address] [place] [address] Performed By: #### 2 4321-2 ####[facility] LABCLIA [id number] [address] [address] [place] Urea nitrogen [Mass/Vol] 21 mg/dL Normal 9-24 [facility] Comment on above: Order Comment: Speci men Type: BLOOD SPECIMENOrdering Facility: [facility] Address: [address] [place] [address] Performed By: #### 2 4321-2 ####[facility] LABIA [id number] [address], [facility]95 [place] CBC panel Auto (Bld)on 05-09 Erythrocyte distribution width (RBC) [Ratio] 15.9 % High 11.5-15.0 [facility] Comment on above: Order Comment: Speci men Type: BLOOD SPECIMENOrdering Facility: [facility] Address: [address] [place] [address] Performed By: #### 5 8410-2 ####[facility] LABIA [id number] [address] [address] [place] Hematocrit (Bld) [Volume fraction] 37.3 % Low 39.0-51.0 [facility] Comment on above: Order Comment: Speci men Type: BLOOD SPECIMENOrdering Facility: [facility] Address: [address] [place] [address] Performed By: #### 5 8410-2 ####[facility] LABIA [id number] [place] [id number] [place] Hemoglobin (Bld) [Mass/Vol] 11.6 g/dL Low 13.0-17.0 [facility] Comment on above: Order Comment: Speci men Type: BLOOD SPECIMENOrdering Facility: [facility] Address: [address] [place] [address] Performed By: #### 5 8410-2 ####[facility] LABIA [id number] [place] [address] [place] [facility] MCH (RBC) [Entitic mass] 26.7 pg Normal 26.0-34.0 [facility] Comment on above: Order Comment: Speci men Type: BLOOD SPECIMENOrdering Facility: [facility] Address: [address] [place] [address] Performed By: #### 5 8410-2 ####[facility] LABIA [id number] [place] [address] [place] MCHC (RBC) [Mass/Vol] 31.1 g/dL Normal 30.5-36.0 [facility] Comment on above: Order Comment: Speci men Type: BLOOD SPECIMENOrdering Facility: [facility] Address: [address] [place] [address] Performed By: #### 5 8410-2 ####[facility] [id number] [place] [address] [place] MCV (RBC) [Entitic vol] 85.7 fL Normal 80.0-100.0 [facility] Comment on above: Order Comment: Speci men Type: BLOOD SPECIMENOrdering Facility: [facility] Address: [address] [place] [address] Performed By: #### 5 8410-2 ####[facility] LABIA [id number] [place] [address] [place] Nucleated RBC (Bld) [#/Vol] 10*3/uL Normal <0.01 [facility] Comment on above: Order Comment: Speci men Type: BLOOD SPECIMENOrdering Facility: [facility] Address: [address] [place] [address] Performed By: #### 5 8410-2 ####[facility] LABIA [id number] [place] [address] [place] Platelet mean volume (Bld) [Entitic vol] 11.6 fL Normal 9.0-12.7 [facility] Comment on above: Order Comment: Speci men Type: BLOOD SPECIMENOrdering Facility: [facility] Address: [address] [place] [address] Performed By: #### 5 8410-2 ####[facility] LABIA [id number] [place] [address] [place] Platelets (Bld) [#/Vol] 211 10*3/uL Normal 150-400 [facility] Comment on above: Order Comment: Speci men Type: BLOOD SPECIMENOrdering Facility: [facility] Address: [address] [place] [address] Performed By: #### 5 8410-2 ####[facility] LABIA [id number] [place] [address] [place] RBC (Bld) [#/Vol] 4.35 10*6/uL Normal 4.20-6.00 [facility] Comment on above: Order Comment: Speci men Type: BLOOD SPECIMENOrdering Facility: [facility] Address: [address] [place] [address] Performed By: #### 5 8410-2 ####[facility] [id number] [place] [address] [place] WBC (Bld) [#/Vol] 7.51 10*3/uL Normal 3.70-11.00 [facility] Comment on above: Order Comment: Speci men Type: BLOOD SPECIMENOrdering Facility: [facility] Address: [address] [place] [address] Performed By: #### 5 8410-2 ####[facility] LABIA [id number] [place] [id number] [place] Urinalysis complete panel (U )on 05-09-2024 Bacteria LM.HPF (Urine sed) [#/Area] Negative Normal Negative [facility] Comment on above: Order Comment: Speci men Type: URINE SPECIMENOrdering Facility: [facility] Address: [facility] [place] [id number] Performed By: #### 2 4356-8 ####[facility] LABCLIA [id number] [address] [place] [address] [place] Bilirubin Ql (U) Negative Normal Negative [facility] Comment on above: Order Comment: Speci men Type: URINE SPECIMENOrdering Facility: [facility] Address: [address] [place] [address] Performed By: #### 2 4356-8 ####[facility] LABCLIA [id number] [address], [place] [address] [place] CALCIUM OXALATE CRYSTALS (UA) Few Abnormal None Seen [facility] Comment on above: Order Comment: Speci men Type: URINE SPECIMENOrdering Facility: [facility] Address: [address] [place] [address] Performed By: #### 2 6-8 ####[facility] LABCLIA [id number] [place] [address] [place] Clarity (Unsp spec) Cloudy Abnormal Clear [facility] Comment on above: Order Comment: Speci men Type: URINE SPECIMENOrdering Facility: [facility] Address: [address] [place] [address] Performed By: #### 2 4356-8 ####[facility] LABCLIA [id number] [address] [place] [address] [place] Color (U) Yellow Normal Yellow [facility] Comment on above: Order Comment: Speci men Type: URINE SPECIMENOrdering Facility: [facility] Address: [address] [place], [place] [address] Performed By: #### 2 4356-8 ####[facility] LABCLIA [id number] [address] Epithelial cells LM.HPF (Urine sed) [#/Area] None Seen Normal [facility] Comment on above: Order Comment: Speci men Type: URINE SPECIMENOrdering Facility: [facility] Address: [address] [place] [address] Performed By: #### 2 4356-8 ####[facility] LABCLIA [id number] [place] [address] [place] Glucose Test strip (U) [Mass/Vol] Negative Normal Negative [facility] Comment on above: Order Comment: Speci men Type: URINE SPECIMENOrdering Facility: [facility] Address: [address] [place] [address] Performed By: #### 2 4356-8 ####[facility] LABCLIA [id number] [place] [address] [place] Hemoglobin Ql (U) 3+ Abnormal Negative [facility] Comment on above: Order Comment: Speci men Type: URINE SPECIMENOrdering Facility: [facility] Address: [address] [place] [address] Performed By: #### 2 4356-8 ####[facility] LABCLIA [id number] [place] [address] [place] Hyaline casts (Urine sed) [#/Area] /[LPF] Abnormal 0 /LPF [facility] Comment on above: Order Comment: Speci men Type: URINE SPECIMENOrdering Facility: [facility] Address: [address] [place] [address] Performed By: #### 2 4356-8 ####[facility] LABCLIA [id number] [address] [place] Ketones Ql (U) Trace Abnormal Negative [facility] Comment on above: Order Comment: Speci men Type: URINE SPECIMENOrdering Facility: [facility] Address: [address] [place] [address] Performed By: #### 2 4356-8 ####[facility] LABCLIA [id number] [place] [address] [place] Leukocyte esterase Test strip Ql (U) Trace Abnormal Negative [facility] Comment on above: Order Comment: Speci men Type: URINE SPECIMENOrdering Facility: [facility] Address: [address] [place] [address] Performed By: #### 2 4356-8 ####[facility] LABCL[facility] [id number] [place] [address] [place] Nitrite Ql (U) Negative Normal Negative [facility] Comment on above: Order Comment: Speci men Type: URINE SPECIMENOrdering Facility: [facility] Address: [address] [place] [address] Performed By: #### 2 4356-8 ####[facility] LABCLIA [id number] [place] [address] [place] pH (U) 6.0 [pH] Normal <8.5 [facility] Comment on above: Order Comment: Speci men Type: URINE SPECIMENOrdering Facility: [facility] Address: [address] [place] [address] Performed By: #### 2 4356-8 ####[facility] [id number] [place] [address] [place] Protein (U) [Mass/Vol] 1+ Abnormal Negative [facility] Comment on above: Order Comment: Speci men Type: URINE SPECIMENOrdering Facility: [facility] Address: [address] [place] [address] Performed By: #### 2 4356-8 ####[facility] [id number] [place] [address] [place] RBC LM.HPF (Urine sed) [#/Area] /[HPF] Abnormal 0-2 /HPF [facility] Comment on above: Order Comment: Speci men Type: URINE SPECIMENOrdering Facility: [facility] Address: [address] [place] [address] Performed By: #### 2 4356-8 ####[facility] [id number] [place] [address] [place] Specific gravity (U) [Rel density] 1.019 Normal 1.005-1.03 0 [facility] Comment on above: Order Comment: Speci men Type: URINE SPECIMENOrdering Facility: [facility] Address: [address] [place] [address] Performed By: #### 2 4356-8 ####[facility] [id number] [place] [address] [place] Urobilinogen Ql (U) 0.2 EU/dL Normal 0.2-1.0 EU/dL [facility] Comment on above: Order Comment: Speci men Type: URINE SPECIMENOrdering Facility: [facility] Address: [address] [place] [address] Performed By: #### 2 4356-8 ####[facility] [id number] [place] [address] [place] WBC LM.HPF (Urine sed) [#/Area] 0-5 /HPF Normal 0-5 /HPF [facility] Comment on above: Order Comment: Speci men Type: URINE SPECIMENOrdering Facility: [facility] Address: [address] [place] [address] Performed By: #### 2 4356-8 ####[facility] [id number] [place] [id number] [place] CNNURSEon 05-07-2024 CNNURSE [facility] CNPNon 05-07-2024 CNPN [facility] CNPTOUTREACHon 05-06-2024 CNPTOUTREACH [facility] CNOVon 05-05-2024 CNOV Normal [facility] CNPNon 05-05-2024 CNPN Normal [facility] CNPTOUTREACHon 05-05-2024 CNPTOUTREA Normal [facility] Cardiac rehabilitation evalu ation reportOrdered By: Cabrera Winters on 05-01-[address] [facility] Cardiac Rehab [address] [place] [address] CR - History & Physical MR#: [id number] Acct: [id number] Name: HOMERO MEI Rep #:[id number] : 1945 78 From: Cabrera Mei BS, RVT PCP: Dr. Moiz Chaudhary MD DOS: 04/30/24 CR - History & Physical General Arrival date:: 04/30/24 Arrival time:: 14:05 Date of Referral:: 03/25/24 Date of CR Evaluation:: 04/30/24 Referring Physician: Dr. Iqbal Primary Diagnosis: CABG History of Present Cardiac Event Onset Date Coronary Artery Bypass Graft:: Yes (onset 02/28/2024) Medications Ambulatory Orders ?Medication ?Instructions ?Recorded donepezil 5 mg tablet 10 mg PO DAILY 06/04/23 pantoprazole 40 mg tablet,delayed 40 mg PO DAILY #30 t abs 09/11/23 release (Protonix) fluticasone propionate 50 2 spray intranasal DAILY PRN PRN 09/28/23 mcg/actuation nasal nasal congestion spray,suspension acetaminophen 500 mg capsule 1,000 mg PO Q6H PRN pain 03/27/24 apixaban 5 mg tablet (Eliquis) 5 mg PO BID 03/27/24 ascorbic acid (vitamin C) 500 mg 500 mg PO DAILY 03/27 tablet (Vitamin C) aspirin 81 mg capsule 162 mg PO DAILY 03/27/24 atorvastatin 40 mg tablet 40 mg PO DAILY 03/27/24 cholecalciferol (vitamin D3) 25 25 mcg PO DAILY mcg (1,000 unit) capsule (Vitamin D3) cyanocobalamin (vitamin B-12) 1,000 mcg PO DAILY 03/27 1,000 mcg tablet folic acid 0.8 mg capsule 800 mcg PO DAILY 03/27/24 furosemide 40 mg tablet (Lasix) 40 mg PO BID 03/27/24 magnesium 200 mg tablet 400 mg PO DAILY 03/27/24 metoprolol succinate 25 mg 12.5 mg PO TID 03/27/24 tablet,extended release 24 hr potassium chloride 20 mEq oral 20 meq PO DAILY 5 packet (Klor-Con) sennosides 8.6 mg-docusate sodium 1 tab-cap PO QHS 08/13 50 mg tablet (Senna Plus) tamsulosin 0.4 mg capsule 0.4 mg PO BID 03/27/24 vitamins A,C,H-trtl-ssshlc 2,148 2 tab PO DAILY mcg-113 mg-45 mg-17.4 mg tablet (Eye Multivitamin) ferrous sulfate 325 mg (65 mg 325 mg PO TID #180 tabs 04/07/24 iron) tablet (FeroSul) Allergies Allergies No Known Allergies Allergy (Verified 03/31/24 05:56) Sleep Disorder Evaluation Hx of Sleep Apnea: Yes Do you snore loudly (louder than talking or can be heard through closed doors)?:No Do you often feel tired/ fatigued/ sleepy during daytime?: No Has anyone observed you stop breathing during sleep?: No History of Hypertension (for STOP score): Yes STOP Results: Negative Advanced Directives Advanced Directives Power of Commercial Horticulture Instructor: Yes Living Will: Yes Advance Directives Information Provided: Yes Advance Directives on File: No DNR Order?:: No Past Medical History Covid-19 Screening Physicial Symptoms Other Clinical Concerns Exposure Risk Pertinent Comorbidities Has a serious heart condition:: Yes Past Medical Illness Medical History History of echocardiogram History of stress test Cardiology follow-up encounter Open wound Lives in assisted living facility Wears glasses Anxiety Alcohol use History of renal disease Arthritis Anemia Syncope History of ulceration Non-smoker History of pain when walking Dementia Colon polyps Macular degeneration Hypertension Hyperlipidemia BPH (benign prostatic hyperplasia) Elevated BP without diagnosis of hypertension Hypoxia Severe sepsis Pneumonia due to COVID-19 virus Past Surgical History Surgical History History of heart surgery History of lumbar spinal fusion Hx of inguinal hernia repair Hx of sinus surgery Hx of esophagogastroduodenoscopy Surgical History: - (Lumbar back surgery, left knee arthroscopic surgery, bilateral inguinal hernia repairs.) Family History Summary Family History Other CVA (cerebral vascular accident) Social History Smoking History Smoking Status: Never smoker Substance Abuse Hx Substance Use: No Occupation Occupation (List type of work in comments):: Retired Social Environment Status Marital Status: Current Living Arrangements Living Environment:: Alone Children How many children do you have?: 4 Do any of your children live nearby?: Yes Safety Do you feel safe in your surroundings?: Yes Assistance Do you need any assistance at home?: no Review of Systems Review of Systems Hints Review of Present Symptoms: Reports Angina, Dizziness/Lightheadedness, Fatigue, Appetite - Normal, Appetite - Special Diet and Sleep - Normal; Denies Shortness of Breath at Rest, Shortness of Breath with Exertion, PVD, Operative Discomfort,Wound Healing, Heart Arrhythmia/Irregularities or Sexual Changes Pain Is Patient Pain Free?: No Pain Location: lower extremity Pain Level: 05/29 Risk Factor Assessment Chief Complaint Chief Complaint: CABG Vital Signs Pulse Ox: 96 Blood Pressure: 100/50 Pulse Pulse Rate: 69 Pulse Rhythm: Regular Hypertension Blood Pressure Sitting - Right Arm: 100/50 Stress Stress: Home/Family (more content not included)... [facility] No Panel InformationOrdered By: Cabrera Winters on 05-01-2024 [facility] Cardiac Rehab [address] [place] [address] CR - Individual Treatment Plan MR#: [id number] Acct: [id number] Name: HOMERO MEI Rep #:[id number] : 1945 78 From: Cabrera Mei BS, RVT PCP: Dr. Moiz Chaudhary MD DOS: 04/30/24 Diagnosis General Information Admitting Diagnosis: CABG Personal Learning Style:: Audio/Visual Stage of change r/t lifestyle modifications:: Contemplation Gave educational material for:: Treating Heart Disease, How The Heart Works, What it means to have Heart Disease, How Coronary Artery Disease is Diagnosed, Heart Procedures, What Heart Medications Do, Risk Factors & Modifications, Living an Active Life, Nutrition, Emotions & Heart Disease, Stress Management & Relaxation and Sleep Disorders & Heart Disease Education/Goals Cardiac Rehabilitation Goals Personal Goals: Initial Assessment: Improve management of stress and emotions, Improve energy level, Get back to work, or to resume activities faster, Improve knowledge of cardiac disease, Improve muscle strength and endurance, Improve diet and eating habits (eat healthier) and Control risk factors (learn risk factor modification) Scale for measuring improvement of personal goals Diagnosis & Disease Process Outcomes/Goals: Pt IDs own risk factors & lifestyle modifications by Session 10,Verbalizes symptoms of angina & response by session 3., Pt independently managesand Other Additional Outcomes/Goals: Plan/Interventions: Assist Pt to ID & engage in lifestyle modification to reduceCVD risk, Instruct on individual risk factors, Review symptoms of angina & emergency actions, Review secondary diagnosis & identify educational needs. and Other see comment 30 day Reassessments:: Not Met 30 day Reassessments:: Not Met 30 day Reassessments:: Not Met 30 day Reassessments:: Not Met Final Reassessments:: Not Met Safety Referral to Physical Therapy: No Referral to [facility] Case Management: No Fall Risk Assessed:: Yes Assistive Devices:: None Exercise - Initial Assessment Visit Date of Eval: 04/30/24 (initial eval ) Mets: Pre-: >5 METS for 30 minutes by discharge Physician Prescribed Exercise Modalities: Treadmill, Daylight Digitaln Airdyne AD-7, SciFit Stepper, MoneyDesktopFit Pro-II Ergometer and MoneyDesktopFit Lateral Steinauer Frequency: 3x/week for 12 weeks [36 sessions] Intensity: 60-80% of age predicted maximum heart rate reserve Duration: 30 - 45 minutes Current METSs:: 3 Target Heart Rate:: 86-106 Resting Blood Pressure: 142/90 EKG Type: NSR/Afib in hospital Outcomes & Goals Goals:: Verbalizes understanding of THR, RPE & goal METS by session 6, Documentsin home exercise log/reports 30 min aerobic 5 day/wk by DC, Demonstrates accurate pulse taking by DC and Other additional outcome/goals: see below Intervention & Plan Exercise Program Goals: Instruct on personal THR & RPE, Instruct on MET level & personal MET goal, Show patient to take own pulse /validate performance until accurate, Instruct on home exercise and Other additional plan/int Physical Activity Home Exercise Physical Activity - Home Exercise: Safe Exercise, Warm-up, Self-monitoring, Cool-Down, Home Exercise > 30 min Daily and Sitting Time <3 hours/daily Outcomes & Goals Outcomes/Goals: Demonstrates correct Warm-up/exercise Cool-Down (S3) if = 2.5 METs, Verbalizes symptoms of exercise intolerance by Session 3 (S3), Demonstratesafe equipment use (S3) & follows exercise prescrition (6) and Other: See below Intervention & Plan Plan/Intervention: Instruct warm-up & cool-down if exercising at > 2 METs, Instruct on symptoms of exercise intolerance & actions to take, Instruct & monitor on saf, Assess intial functional capacity & safety risk and Other See below Nutrition - Initial Assessment Program Goals Nutrition Program Goals Patient has diagnosis of Hyperlipidemia (ICD E78)?: Yes Visit Date of Eval: 04/30/24 (initial eval ) Cholesterol/Lipids (Other Core Measures) Determine presence & major risk factors that modify LDL goal: Hypertension or hypertensive medication, Low HDL cholesterol <40 mg/dL*, Family history of premature CHD in Male < 55 years: female <65 yearsFa and Age men > 45 years; women >/= 55 years Outcomes/Goals: Pt IDs own risk factors & lifestyle modifications by Session 10,Verbalizes symptoms of angina & response by session 3., Pt independently managesand Other Additional Outcomes/Goals: Intervention/Plan: Advocate for lipid panel cholesterol medication if applicable, Instruct on personal lipid levels & lipid goals/NCEP guidelines, Instruct on cholesterol and Other additional plan/int Referral to dietitian:: No Diabetes (Other Core Measures) Diabetes Type: Not Applicable Weight Mgt (Other Care) Height: 5 ft 11 in Weight:: 207 lb BMI: 28.8 Diagnosis Overweight/Obesity BMI> 30% ICD-10 E66: No Diagnosis High BMI/Morbid Obesity BMI> 35% ICD-10 Z68: No Outcomes/Goals: Pt sets, maintains & shows weight loss goal & trend during rehaband Other additional outcomes/goals Intervention/Plan: Instruct on ideal BMI & set weight loss goal w/pa (more content not included)... [facility] CR - History AND Physicalon 04-30-2024 CR - History & Physical [facility] Cardiac Rehab [address] [place] [address] CR - History Physical MR#: [id number] Acct: [id number] Name: HAMIDAHOMERO MONIQUE Rep #: [id number] : 1945 78 From: Cabrera Mei BS, RVT PCP: Dr. Moiz Chaudhary MD DOS: 04/30/24 CR - History Physical General Arrival date:: 04/30/24 Arrival time:: 14:05 Date of Referral:: 03/25/24 Date of CR Evaluation:: 04/30/24 Referring Physician: Dr. Iqbal Primary Diagnosis: CABG History of Present Cardiac Event Onset Date Coronary Artery Bypass Graft:: Yes (onset 02/28/2024) Medications Ambulatory Orders ???Medication ???Instructions ???Recorded donepezil 5 mg tablet 10 mg PO DAILY 06/04/23 pantoprazole 40 mg tablet,delayed 40 mg PO DAILY #30 tabs 09/11/23 release (Protonix) fluticasone propionate 50 2 spray intranasal DAILY PRN PRN 0 09/28/23 mcg/actuation nasal nasal congestion spray,suspension acetaminophen 500 mg capsule 1,000 mg PO Q6H PRN pain 03/27/24 apixaban 5 mg tablet (Eliquis) 5 mg PO BID 03/27/24 ascorbic acid (vitamin C) 500 mg 500 mg PO DAILY 03/27/24 tablet (Vitamin C) aspirin 81 mg capsule 162 mg PO DAILY 03/27/24 atorvastatin 40 mg tablet 40 mg PO DAILY 03/27/24 cholecalciferol (vitamin D3) 25 25 mcg PO DAILY 03/27/24 mcg (1,000 unit) capsule (Vitamin D3) cyanocobalamin (vitamin B-12) 1,000 mcg PO DAILY 03/27/24 1,000 mcg tablet folic acid 0.8 mg capsule 800 mcg PO DAILY 03/27/24 furosemide 40 mg tablet (Lasix) 40 mg PO BID 03/27/24 magnesium 200 mg tablet 400 mg PO DAILY 03/27/24 metoprolol succinate 25 mg 12.5 mg PO TID 03/27/24 tablet,extended release 24 hr potassium chloride 20 mEq oral 20 meq PO DAILY 03/27/24 packet (Klor-Con) sennosides 8.6 mg-docusate sodium 1 tab-cap PO QHS 03/27/24 50 mg tablet (Senna Plus) tamsulosin 0.4 mg capsule 0.4 mg PO BID 03/27/24 vitamins A,C,F-sxmg-owiege 2,148 2 tab PO DAILY 03/27/24 mcg-113 mg-45 mg-17.4 mg tablet (Eye Multivitamin) ferrous sulfate 325 mg (65 mg 325 mg PO TID #180 tabs 04/07/24 iron) tablet (FeroSul) Allergies Allergies No Known Allergies Allergy (Verified 03/31/24 05:56) Sleep Disorder Evaluation Hx of Sleep Apnea: Yes Do you snore loudly (louder than talking or can be heard through closed doors)?: No Do you often feel tired/ fatigued/ sleepy during daytime?: No Has anyone observed you stop breathing during sleep?: No History of Hypertension (for STOP score): Yes STOP Results: Negative Advanced Directives Advanced Directives Power of Commercial Horticulture Instructor: Yes Living Will: Yes Advance Directives Information Provided: Yes Advance Directives on File: No DNR Order?:: No Past Medical History Covid-19 Screening Physicial Symptoms Other Clinical Concerns Exposure Risk Pertinent Comorbidities Has a serious heart condition:: Yes Past Medical Illness Medical History History of echocardiogram History of stress test Cardiology follow-up encounter Open wound Lives in assisted living facility Wears glasses Anxiety Alcohol use History of renal disease Arthritis Anemia Syncope History of ulceration Non-smoker History of pain when walking Dementia Colon polyps Macular degeneration Hypertension Hyperlipidemia BPH (benign prostatic hyperplasia) Elevated BP without diagnosis of hypertension Hypoxia Severe sepsis Pneumonia due to COVID-19 virus Past Surgical History Surgical History History of heart surgery History of lumbar spinal fusion Hx of inguinal hernia repair Hx of sinus surgery Hx of esophagogastroduodenoscopy Surgical History: - (Lumbar back surgery, left knee arthroscopic surgery, bilateral inguinal hernia repairs.) Family History Summary Family History Other CVA (cerebral vascular accident) Social History Smoking History Smoking Status: Never smoker Substance Abuse Hx Substance Use: No Occupation Occupation (List type of work in comments):: Retired Social Environment Status Marital Status: Current Living Arrangements Living Environment:: Alone Children How many children do you have?: 4 Do any of your children live nearby?: Yes Safety Do you feel safe in your surroundings?: Yes Assistance Do you need any assistance at home?: no Review of Systems Review of Systems Hints Review of Present Symptoms: Reports Angina, Dizziness/Lightheadedness, Fatigue, Appetite - Normal, Appetite - Special Diet and Sleep - Normal; Denies Shortness of Breath at Rest, Shortness of Breath with Exertion, PVD, Operative Discomfort, Wound Healing, Heart Arrhythmia/Irregularities or Sexual Changes Pain Is Patient Pain Free?: (more content not included)... Normal [facility] CNOVon 04-24-2024 CNOV [facility] CNPNon 04-24-2024 CNPN [facility] CNNURSEon 04-18-2024 CNNURSE [facility] CNPNon 04-18-2024 CNPN [facility] Basic metabolic 2000 panelon 04-15-2024 Anion gap [Moles/Vol] 10 mmol/L 8 - 15 mmol/L [facility] Calcium [Mass/Vol] 9.1 mg/dL 8.5 - 10. 2 mg/dL [facility] Chloride [Moles/Vol] 105 mmol/L 98 - 10 7 mmol/L [facility] CO2 [Moles/Vol] 26 mmol/L 22 - 30 mmol/L [facility] Creatinine [Mass/Vol] 0.97 mg/dL 0.73 - 1.22 mg/dL [facility] GFR/1.73 sq M.predicted among non-blacks MDRD (S/P/Bld) [Vol rate/Area] 81 mL/min/{1.73_m2} - PINF [facility] Comment on above: Estimated Glomerular Filtration Rate (eGFR) is calculated using the 2020 CKD-EPI creatinine equation. This equation utilizes serum creatinine, sex, and age as parameters. The creatinine assay has traceable calibration to isotope dilution-mass spectrometry. Refer to KDIGO guidelines for clinical interpretation. In patients with unstable renal function, e.g. those with acute kidney injury, the eGFR may not accurately reflect actual GFR. Glucose [Mass/Vol] 103 mg/dL High 74 - 99 mg/dL [facility] Comment on above: The [place] Diab[employer] Association (ADA) provides guidance for cutoff values for fasting glucose and random glucose. The ADA defines fasting as no caloric intake for at least 8 hours. Fasting plasma glucose results between 100 to 125 mg/dL indicate increased risk for diabetes (prediabetes). Fasting plasma glucose results greater than or equal to 126 mg/dL meet the criteria for diagnosis of diabetes. In the absence of unequivocal hyperglycemia, results should be confirmed by repeat testing. In a patient with classic symptoms of hyperglycemia or hyperglycemic crisis, random plasma glucose results greater than or equal to 200 mg/dL meet the criteria for diagnosis of diabetes. Reference: Standards of Medical Care in Diabetes 2016, [place] Diabetes Association. Diabetes Care. 2016.39(Suppl 1). Interpretation and review of laboratory results Abnormal [facility] Potassium [Moles/Vol] 4.3 mmol/L 3.7 - 5.1 mmol/L [facility] Sodium [Moles/Vol] 141 mmol/L 136 - 144 mmol/L [facility] Urea nitrogen [Mass/Vol] 17 mg/dL 9 - 24 mg/dL [facility] Anion gap [Moles/Vol] 10 mmol/L Normal 8-15 [facility] Comment on above: Order Comment: Rachid sanchez Type: BLOOD SPECIMENOrdering Facility: [facility] Address: [address] [place] [address] Performed By: #### 3 3762-6, 72207-0 ####[facility] LABORATORYCLIA [id number] [place] [address] [place] Calcium [Mass/Vol] 9.1 mg/dL Normal 8.5-10.2 [facility] Comment on above: Order Comment: Rachid sanchez Type: BLOOD SPECIMENOrdering Facility: [facility] Address: [address] [place] [address] Performed By: #### 3 3762-6, 87530-3 ####[facility] LABORATORYCLIA [id number] [place] [address] [place] Chloride [Moles/Vol] 105 mmol/L Normal 98-107 [facility] Comment on above: Order Comment: Rachid sanchez Type: BLOOD SPECIMENOrdering Facility: [facility] Address: [address] [place] [address] Performed By: #### 3 3762-6, 49936-4 ####[facility] LABORATORYCLIA [id number] [place] [address] [place] CO2 [Moles/Vol] 26 mmol/L Normal 22-30 [facility] Comment on above: Order Comment: Speci laura Type: BLOOD SPECIMENOrdering Facility: [facility] Address: [address] [place] [address] Performed By: #### 3 3762-6, 34890-0 ####[facility] [id number] [place] [id number] [place] Creatinine [Mass/Vol] 0.97 mg/dL Normal 0.73-1.22 [facility] Comment on above: Order Comment: Speci men Type: BLOOD SPECIMENOrdering Facility: [facility] Address: [address] [place] [address] Performed By: #### 3 3762-6, 54968-0 ####[facility] [id number] [address] Creatinine and Glomerular filtration rate.predicted panel (S/P/Bld) 81 mL/min/1.73m??? Normal >=60 [facility] Comment on above: Order Comment: Zeeshancatrina sanchez Type: BLOOD SPECIMENOrdering Facility: [facility] Address: [address] [place] [address] Result Comment: Teri mated Glomerular Filtration Rate (eGFR) is calculated using the 2020 CKD-EPI creatinine equation. This equation utilizes serum creatinine, sex, and age as parameters. The creatinine assay has traceable calibration to isotope dilution-mass spectrometry. Refer to KDIGO guidelines for clinical interpretation. In patients with unstable renal function, e.g. those with acute kidney injury, the eGFR may not accurately reflect actual GFR. Performed By: #### 3 3762-6, 74848-1 ####[facility] LABORATORYCLIA [id number] [place] [id number] [place] Glucose [Mass/Vol] 103 mg/dL High 74-99 [facility] Comment on above: Order Comment: Rachid [facility] Type: BLOOD SPECIMENOrdering Facility: [facility] Address: [address] [place] [address] Result Comment: The [place] Diabetes Association (ADA) provides guidance for cutoff values for fasting glucose and random glucose. The ADA defines fasting as no caloric intake for at least 8 hours. Fasting plasma glucose results between 100 to 125 mg/dL indicate increased risk for diabetes (prediabetes).Fasting plasma glucose results greater than or equal to 126 mg/dL meet the criteria for diagnosis of diabetes. In the absence of unequivocal hyperglycemia, results should be confirmed by repeat testing. In a patient with classic symptoms of hyperglycemia or hyperglycemic crisis, random plasma glucose results greater than or equal to 200 mg/dL meet the criteria for diagnosis of diabetes.Reference: Standards of Medical Care in Diabetes 2016, [place] [employer]. Diabetes Care. 2016.39(Suppl 1). Performed By: #### 3 3762-6, 92027-6 ####[facility] LABORATORYCLIA [id number] [place] [address] [place] Potassium [Moles/Vol] 4.3 mmol/L Normal 3.7-5.1 [facility] Comment on above: Order Comment: Speci men Type: BLOOD SPECIMENOrdering Facility: [facility] Address: [address] [place] [address] Performed By: #### 3 3762-6, 60647-9 ####[facility] LABORATORYCLIA [id number] [place] [address] [place] Sodium [Moles/Vol] 141 mmol/L Normal 136-144 [facility] Comment on above: Order Comment: Rachid sanchez Type: BLOOD SPECIMENOrdering Facility: [facility] Address: [address] [place] [address] Performed By: #### 3 3762-6, 52135-0 ####[facility] LABORATORYCLIA [id number] [address] [place] Urea nitrogen [Mass/Vol] 17 mg/dL Normal 9-24 [facility] Comment on above: Order Comment: Zeeshani laura Type: BLOOD SPECIMENOrdering Facility: [facility] Address: [address] [place] [address] Performed By: #### 3 3762-6, 77962-8 ####[facility] LABORATORYCLIA [id number] [place] [address] [place] CBC panel Auto (Bld)on 04-15 Erythrocyte distribution width (RBC) [Ratio] 14.9 % 11.5 - 15.0 % [facility] Hematocrit (Bld) [Volume fraction] 30.6 % Low 39.0 - 51.0 % [facility] Hemoglobin (Bld) [Mass/Vol] 9.6 g/dL Low 13.0 - 17.0 g/dL [facility] Interpretation and review of laboratory results Abnormal [facility] MCH (RBC) [Entitic mass] 27.4 pg 26.0 - 34.0 pg [facility] MCHC (RBC) [Mass/Vol] 31.4 g/dL 30.5 - 36.0 g/dL [facility] MCV (RBC) [Entitic vol] 87.2 fL 80.0 - 100.0 fL [facility] Nucleated RBC (Bld) [#/Vol] NINF [facility] Platelet mean volume (Bld) [Entitic vol] 10.9 fL 9.0 - 12.7 fL [facility] Platelets (Bld) [#/Vol] 229 10*3/uL [facility] RBC (Bld) [#/Vol] 3.51 10*6/uL Low 4.20 - 6.00 m/uL [facility] WBC (Bld) [#/Vol] 6.37 10*3/uL [facility] Erythrocyte distribution width (RBC) [Ratio] 14.9 % Normal 11.5-15.0 [facility] Comment on above: Order Comment: Speci men Type: BLOOD SPECIMENOrdering Facility: [facility] Address: [address] [place] [address] Performed By: #### 5 8410-2 ####[facility] LABORATORYCLIA [id number] [address] STATES OF [facility] Hematocrit (Bld) [Volume fraction] 30.6 % Low 39.0-51.0 [facility] Comment on above: Order Comment: Speci men Type: BLOOD SPECIMENOrdering Facility: [facility] Address: [address] [place] [address] Performed By: #### 5 8410-2 ####[facility] LABORATORYCLIA [id number] [place] [address] [place] Hemoglobin (Bld) [Mass/Vol] 9.6 g/dL Low 13.0-17.0 [facility] Comment on above: Order Comment: Speci men Type: BLOOD SPECIMENOrdering Facility: [facility] Address: [address] [place] [address] Performed By: #### 5 8410-2 ####[facility] LABORATORYCLIA [id number] [address] STATES OF [facility] MCH (RBC) [Entitic mass] 27.4 pg Normal 26.0-34.0 [facility] Comment on above: Order Comment: Speci men Type: BLOOD SPECIMENOrdering Facility: [facility] Address: [address] [place] [address] Performed By: #### 5 8410-2 ####[facility] LABORATORYCLIA [id number] [address] STATES OF [facility] MCHC (RBC) [Mass/Vol] 31.4 g/dL Normal 30.5-36.0 [facility] Comment on above: Order Comment: Speci men Type: BLOOD SPECIMENOrdering Facility: [facility] Address: [address] [place] [address] Performed By: #### 5 8410-2 ####[facility] LABORATORYCLIA [id number] [address] STATES OF [facility] MCV (RBC) [Entitic vol] 87.2 fL Normal 80.0-100.0 [facility] Comment on above: Order Comment: Speci men Type: BLOOD SPECIMENOrdering Facility: [facility] Address: [address] [place] [address] Performed By: #### 5 8410-2 ####[facility] LABORATORYCLIA [id number] [address] OF [facility] Nucleated RBC (Bld) [#/Vol] 10*3/uL Normal <0.01 [facility] Comment on above: Order Comment: Speci men Type: BLOOD SPECIMENOrdering Facility: [facility] Address: [address] [place] [address] Performed By: #### 5 8410-2 ####[facility] LABORATORYCLIA [id number] [place] [address] [place] Platelet mean volume (Bld) [Entitic vol] 10.9 fL Normal 9.0-12.7 [facility] Comment on above: Order Comment: Speci men Type: BLOOD SPECIMENOrdering Facility: [facility] Address: [address] [place] [address] Performed By: #### 5 8410-2 ####[facility] LABORATORYCLIA [id number] [place] [address] [place] Platelets (Bld) [#/Vol] 229 10*3/uL Normal 150-400 [facility] Comment on above: Order Comment: Speci men Type: BLOOD SPECIMENOrdering Facility: [facility] Address: [address] [place] [address] Performed By: #### 5 8410-2 ####[facility] LABORATORYCLIA [id number] [place] [address] [place] RBC (Bld) [#/Vol] 3.51 10*6/uL Low 4.20-6.00 [facility] Comment on above: Order Comment: Speci men Type: BLOOD SPECIMENOrdering Facility: [facility] Address: [address] [place] [address] Performed By: #### 5 8410-2 ####[facility] LABORATORYCLIA [id number] [place] [address] [place] WBC (Bld) [#/Vol] 6.37 10*3/uL Normal 3.70-11.00 [facility] Comment on above: Order Comment: Speci men Type: BLOOD SPECIMENOrdering Facility: [facility] Address: [address] [place] [address] Performed By: #### 5 8410-2 ####[facility] LABORATORYCLIA [id number] [address] STATES OF PRECIOUS CNOVon 04-15-2024 CNOV Normal [facility] CNPNon 04-15-2024 CNPN Normal [facility] NT PRO BNPon 04-15-2024 Natriuretic peptide.B prohormone N-Terminal [Mass/Vol] 899 pg/mL High NINF - 450 pg/mL [facility] NT-proBNP SerPl-mCncon 04-15 Natriuretic peptide.B prohormone N-Terminal [Mass/Vol] 899 pg/mL High <450 [facility] Comment on above: Order Comment: Speci men Type: BLOOD SPECIMENOrdering Facility: [facility] Address: [facility] [place] [address] Performed By: #### 3 3762-6, 33217-7 ####[facility] LABORATORYCLIA [id number] [address] OF PRECIOUS Natriuretic peptide.B prohor jose N-Terminal [Mass/Vol]on 04-15-2024 Interpretation and review of laboratory results Abnormal [facility] CNOVon 04-14-2024 CNOV Normal [facility] UA DIP, URINE (POC)on 2024 BILIRUBIN UA (POCT) Negative Negative [facility] CLARITY UA (POCT) Clear [facility] COLOR UA (POCT) Yellow [facility] GLUCOSE UA (POCT) Negative Negative mg/dL [facility] Hemoglobin Ql (U) Large Abnormal Negative [facility] Interpretation and review of laboratory results Abnormal [facility] KETONE UA (POCT) Negative Negative mg/dL [facility] LEUKOCYTES UA (POCT) Negative Negative [facility] NITRITE UA (POCT) Negative Negative [facility] PH UA (POCT) 7 4.5 - 8.0 [facility] Protein Ql (U) 30 mg/dL Abnormal Negative [facility] SPECIFIC GRAVITY UA (POCT) 1.02 1.005 - 1.030 [facility] UROBILINOGEN UA (POCT) 0.2 Anna l E.U./dL [facility] Location:[facility], [address] , [place], [address] [facility] POINT OF CARE [facility] Urinalysis complete panel (U )on 04-14-2024 Bacteria LM.HPF (Urine sed) [#/Area] Negative Normal Negative [facility] Comment on above: Order Comment: Speci men Type: URINE SPECIMENOrdering Facility: [facility] Address: [address] [place] [address] Performed By: #### 2 4356-8 ####[facility] LABCLIA [id number] [place] [address] [place] Bilirubin Ql (U) Negative Normal Negative [facility] Comment on above: Order Comment: Speci men Type: URINE SPECIMENOrdering Facility: [facility] Address: [address] [place] [address] Performed By: #### 2 4356-8 ####[facility] LABCLIA [id number] [place] [address] [place] Clarity (Unsp spec) Clear Normal Clear [facility] Comment on above: Order Comment: Speci men Type: URINE SPECIMENOrdering Facility: [facility] Address: [address] [place] [address] Performed By: #### 2 4356-8 ####[facility] LABCLIA [id number] [place] [address] [place] Color (U) Yellow Normal Yellow [facility] Comment on above: Order Comment: Speci men Type: URINE SPECIMENOrdering Facility: [facility] Address: [address] [place] [address] Performed By: #### 2 4356-8 ####[facility] LABCLIA [id number] [place] [address] [place] Epithelial cells LM.HPF (Urine sed) [#/Area] None Seen Normal [facility] Comment on above: Order Comment: Speci men Type: URINE SPECIMENOrdering Facility: [facility] Address: [address] [place] [address] Performed By: #### 2 4356-8 ####[facility] LABCLIA [id number] [place] [address] [place] Glucose Test strip (U) [Mass/Vol] Negative Normal Negative [facility] Comment on above: Order Comment: Speci men Type: URINE SPECIMENOrdering Facility: [facility] Address: [address] [place] [address] Performed By: #### 2 4356-8 ####[facility] LABCLIA [id number] [place] [address] [place] Hemoglobin Ql (U) 2+ Abnormal Negative [facility] Comment on above: Order Comment: Speci men Type: URINE SPECIMENOrdering Facility: [facility] Address: [address] [place] [address] Performed By: #### 2 4356-8 ####[facility] LABCLIA [id number] [place] [address] [place] Hyaline casts (Urine sed) [#/Area] /[LPF] Abnormal 0 /LPF [facility] Comment on above: Order Comment: Speci men Type: URINE SPECIMENOrdering Facility: [facility] Address: [address] [place] [address] Performed By: #### 2 4356-8 ####[facility] LABCLIA [id number] [place] [address] [place] Ketones Ql (U) Negative Normal Negative [facility] Comment on above: Order Comment: Speci men Type: URINE SPECIMENOrdering Facility: [facility] Address: [address] [place] [address] Performed By: #### 2 4356-8 ####[facility] LABCLIA [id number] [place] [address] [place] Leukocyte esterase Test strip Ql (U) Negative Normal Negative [facility] Comment on above: Order Comment: Speci men Type: URINE SPECIMENOrdering Facility: [facility] Address: [address] [place] [address] Performed By: #### 2 4356-8 ####[facility] LABCLIA [id number] [place] [address] [place] Nitrite Ql (U) Negative Normal Negative [facility] Comment on above: Order Comment: Speci men Type: URINE SPECIMENOrdering Facility: [facility] Address: [address] [place] [address] Performed By: #### 2 4356-8 ####[facility] LABCLIA [id number] [place] [address] [place] pH (U) 7.5 [pH] Normal <8.5 [facility] Comment on above: Order Comment: Speci men Type: URINE SPECIMENOrdering Facility: [facility] Address: [address] [place] [address] Performed By: #### 2 4356-8 ####[facility] LABIA [id number] [place] [address] [place] Protein (U) [Mass/Vol] 1+ Abnormal Negative [facility] Comment on above: Order Comment: Speci men Type: URINE SPECIMENOrdering Facility: [facility] Address: [address] [place] [address] Performed By: #### 2 4356-8 ####[facility] LABIA [id number] [place] [address] [place] RBC LM.HPF (Urine sed) [#/Area] 11-20 /HPF Abnormal 0-2 /HPF [facility] Comment on above: Order Comment: Speci men Type: URINE SPECIMENOrdering Facility: [facility] Address: [address] [place] [address] Performed By: #### 2 4356-8 ####[facility] LABIA [id number] [place] [address] [place] Specific gravity (U) [Rel density] 1.014 Normal 1.005-1.03 0 [facility] Comment on above: Order Comment: Speci men Type: URINE SPECIMENOrdering Facility: [facility] Address: [address] [place] [address] Performed By: #### 2 4356-8 ####[facility] LABIA [id number] [place] [address] [place] Urobilinogen Ql (U) 0.2 EU/dL Normal 0.2-1.0 EU/dL [facility] Comment on above: Order Comment: Speci men Type: URINE SPECIMENOrdering Facility: [facility] Address: [address] [place] [address] Performed By: #### 2 4356-8 ####[facility] LABIA [id number] [place] [address] [place] WBC LM.HPF (Urine sed) [#/Area] 0-5 /HPF Normal 0-5 /HPF [facility] Comment on above: Order Comment: Speci men Type: URINE SPECIMENOrdering Facility: [facility] Address: [address] [place] [address] Performed By: #### 2 4356-8 ####[facility] LABIA [id number] [place] [address] [place] CNPNon 04-10-2024 CNPN Normal [facility] CNPNon 04-09-2024 CNPN Normal [facility] CNPNon 04-08-2024 CNPN Normal [facility] CNOVon 04-07-2024 CNOV Normal [facility] CNPNon 04-07-2024 [facility] Normal [facility] .Auto Diffon 04-04-2024 Basophil, Absolute 0.0 10 3/mcL Normal 0.0-0.2 [facility] Comment on above: Performed By: #### G MEGA BOWMAN ANEU, BMP, CBC #### [facility] [address] [place], [place] [address] Basophils/100 WBC (Bld) 0.7 % Normal 0.0-2.5 [facility] Comment on above: Performed By: #### G FR, ADIFF, ANEU, BMP, CBC #### [address] [address] Eosinophil, Absolute 0.1 10 3/mcL Normal 0.0-0.7 [facility] Comment on above: Performed By: #### G FR, ADIFF, ANEU, BMP, CBC #### [address] [address] Eosinophils/100 WBC (Bld) 2.7 % Normal 0.0-7.0 [facility] Comment on above: Performed By: #### G FR, ADIFF, ANEU, BMP, CBC #### [address] [address] Lymphocyte, Absolute 0.8 10 3/mcL Low 0.9-4.3 [facility] Comment on above: Performed By: #### G FR, ADIFF, ANEU, BMP, CBC #### [address] [address] Lymphocytes/100 WBC (Bld) 15.2 % Low 20.0-40.0 [facility] Comment on above: Performed By: #### G FR, ADIFF, ANEU, BMP, CBC #### [address] [address] Monocyte, Absolute 0.4 10 3/mcL Normal 0.1-1.4 [facility] Comment on above: Performed By: #### G FR, ADIFF, ANEU, BMP, CBC #### [address] [address] Monocytes/100 WBC (Bld) 8.3 % Normal 2.0-13.0 [facility] Comment on above: Performed By: #### G FR, ADIFF, ANEU, BMP, CBC #### [address] [address] Neutrophils/100 WBC (Bld) 73.1 % Normal 50.0-75.0 [facility] Comment on above: Performed By: #### G FR, ADIFF, ANEU, BMP, CBC #### [address] [address] .GFRon 04-04-2024 Estimated Glomerular Filtration Rate 74 ml/min/1.73sqm Normal [facility] Comment on above: Result Comment: Stages of Chronic Kidney Disease (CKD) Stage Description eGFR(ml/min/1.73 sq.m.) CKD 1 Normal kidney function or >=90 normal kindney function with possible kidney damage (ex. Proteinuria) CKD 2 Kidney damage with mild loss 60-89 of kidney function CKD 3a Mild to moderate loss of kidney 45-59 function CKD 3b Moderate to severe loss of 30-44 of kindey function CKD 4 Severe loss of kidney function 15-29 CKD 5 Kidney failure <15 Note: (go live 2024) the eGFR calculation was updated to the 2020 CKD-EPI creatinine equation without a race factor to calculate the eGFR results. Performed By: #### G FR, BMP, PBNP #### [address] [address] .NEUABSon 04-04-2024 Neutrophil, Absolute 3.8 10 3/mcL Normal 2.3-8.1 [facility] Comment on above: Performed By: #### G FR, ADIFF, ANEU, BMP, CBC #### [address] [address] BMPon 04-04-2024 BUN/Creatinine Ratio 14 ratio Normal 7-27 [facility] Comment on above: Performed By: #### G FR, BMP, PBNP #### [address] [address] Calcium [Mass/Vol] 9.0 mg/dL Normal 8.4-10.2 [facility] Comment on above: Performed By: #### G FR, BMP, PBNP #### [address] [address] Chloride [Moles/Vol] 105 mmol/L Normal 98-107 [facility] Comment on above: Performed By: #### G FR, BMP, PBNP #### [address] [address] CO2 [Moles/Vol] 26 mmol/L Normal 23-31 [facility] Comment on above: Performed By: #### G SAHIL BOWMAN, PBNP #### [address] [address] Creatinine [Mass/Vol] 1.05 mg/dL Normal 0.70-1.30 [facility] Comment on above: Result Comment: Test ing performed on Siemens Dimension EXL analyzer using a modified kinetic Bibi technique. Performed By: #### G SAHIL BOWMAN, PBNP #### [address] [address] Electrolyte Balance 11.0 mEq/L Normal 4.0-15.0 [facility] Comment on above: Performed By: #### SAHIL RIVAS, PBNP #### [address] [address] Glucose [Mass/Vol] 105 mg/dL Normal 83-110 [facility] Comment on above: Performed By: #### SAHIL RIVAS, PBNP #### [address] [address] Potassium [Moles/Vol] 4.2 mmol/L Normal 3.5-5.1 [facility] Comment on above: Performed By: #### SAHIL RIVAS, PBNP #### [address] [address] Sodium [Moles/Vol] 142 mmol/L Normal 136-145 [facility] Comment on above: Performed By: #### SAHIL RIVAS, PBNP #### [address] [address] Urea nitrogen [Mass/Vol] 15 mg/dL Normal 7-18 [facility] Comment on above: Performed By: #### G SAHIL BOWMAN, PBNP #### [address] [address] CBCon 04-04-2024 Erythrocyte distribution width (RBC) [Ratio] 16.4 % High 11.5-15.5 [facility] Comment on above: Performed By: #### G , ADIFF, ANEU, BMP, CBC #### [address] [address] Hematocrit (Bld) [Volume fraction] 30.0 % Low 40.0-52.0 [facility] Comment on above: Performed By: #### G FR, ADIFF, ANEU, BMP, CBC #### [address] [address] Hgb 9.6 G/dL Low 13.0-17.5 [facility] Comment on above: Performed By: #### G FR, ADIFF, ANEU, BMP, CBC #### [address] [address] MCH (RBC) [Entitic mass] 27.9 pg Normal 27.0-33.0 [facility] Comment on above: Performed By: #### G FR, ADIFF, ANEU, BMP, CBC #### [place] [address] MCHC 32.1 G/dL Normal 32.0-36.0 [facility] Comment on above: Performed By: #### G FR, ADIFF, ANEU, BMP, CBC #### [address] [address] MCV (RBC) [Entitic vol] 87.2 fL Normal 81.0-100.0 [facility] Comment on above: Performed By: #### G FR, ADIFF, ANEU, BMP, CBC #### [address] [address] Platelet 281 10 3/mcL Normal 150-450 [facility] Comment on above: Performed By: #### G FR, ADIFF, ANEU, BMP, CBC #### [address] [address] Platelet mean volume (Bld) [Entitic vol] 10.1 fL Normal 6.4-10.5 [facility] Comment on above: Performed By: #### G FR, ADIFF, ANEU, BMP, CBC #### [address] [address] RBC 3.44 10 6/mcL Low 4.50-6.00 [facility] Comment on above: Performed By: #### G FR, ADIFF, ANEU, BMP, CBC #### [address] [address] WBC 5.3 10 3/mcL Normal 4.5-10.8 [facility] Comment on above: Performed By: #### G FR, ADIFF, ANEU, BMP, CBC #### [place] [address] CNPNon 04-04-2024 CNPN Normal [facility] FEon 04-04-2024 Iron [Mass/Vol] 27 ug/dL Low 65-175 [facility] Comment on above: Performed By: #### G FR, ADIFF, ANEU, BMP, CBC #### [place] [address] Lesia 04-04-2024 Ferritin [Mass/Vol] 65.0 ng/mL Normal 26.0-388.0 [facility] Comment on above: Performed By: #### G FR, ADIFF, ANEU, BMP, CBC #### [place] [address] LDHon 04-04-2024 LDH 200 U/L Normal 85-227 [facility] Comment on above: Performed By: #### G FR, ADIFF, ANEU, BMP, CBC #### [place] [address] PBNPon 04-04-2024 Natriuretic peptide B (Bld) [Mass/Vol] 2345 pg/mL High 0-450 [facility] Comment on above: Result Comment: NT-p roBNP results of less than 300 pg/mL effectively rules out acute congestive heart failure with 99% negative predictive value. Performed By: #### G FR, BMP, PBNP #### [place] [address] RETO (AO)on 04-04-2024 Immature Retic Fraction 0.48 IRF High 0.20-0.46 [facility] Comment on above: Performed By: #### G FR, ADIFF, ANEU, BMP, CBC #### [facility] [address] [place], [place] [address] Reticulocytes, Auto 1.7 % Normal 0.2-2.3 [facility] Comment on above: Performed By: #### G FR, ADIFF, ANEU, BMP, CBC #### [facility] [address] [place], [place] [address] TRFon 04-04-2024 Transferrin [Mass/Vol] 228 mg/dL Normal 202-336 [facility] Comment on above: Performed By: #### G FR, ADIFF, ANEU, BMP, CBC #### [facility] [address] [place], [place] [address] CNPNon 04-03-2024 CNPN Normal [facility] CNPNon 04-01-2024 CNPN Normal [facility] 12 Lead EKGon 03-31-2024 12 Lead EKG [facility] Cardiovascular Services [address] [place] [address] 12 Lead EKG 03/31/24 0732 MR#: [id number] Acct: [id number] Name: HOMERO MEI Rep #: [id number] : 1945 78 From: Amalia Reynoso MD Attending Dr: Cami Diaz, DO Status: DEP SD C Ordering Dr: Jevon Sanchez MD Date: 03/31/24 Location: EN Sex: M C Admitted: Test Reason : POST OP Blood Pressure : */* mmHG Vent. Rate : 71 BPM Atrial Rate : 74 BPM P-R Int : 182 ms QRS Dur : 94 ms QT Int : 422 ms P-R-T Axes : 43 -47 74 degrees QTcB Int : 458 ms Sinus rhythm with frequent Premature ventricular complexes Left axis deviation Low voltage QRS Cannot rule out Anterior infarct (cited on or before 04-Jun-2023) Abnormal ECG Confirmed by Amalia Reynoso ([id number]), editor & co founder ANGI RIDER ([id number]) on 04/02/2024 7:02:35 AM Referred By: Moiz Chaudhary Confirmed By: Amalia Reynoso 04/02/24 0702 Date Amalia Reynoso MD CC: Dr. Jevon Sanchez MD; Dr. Moiz Chaudhary MD; Cami Diaz, DO Signed Normal [facility] AMPICILLIN+SULBACTAM:SUSC:PT :ISOLATE:ORDQN:MICon 03-31-2024 Ampicillin+Sulbactam ARUN [Susc] Few Escherichia coli Few normal skin wyatt present. Sensitivity testing not indicated. [facility] Work Phone: Ampicillin+Sulbactam ARUN [Reynoso sc]on 03-31-2024 Escherichia coli Escherichia coli [facility] Work Phone: GS Rare Gram Negative Rods A [facility] Work Phone: Basic Metabolic Profile (BMP )on 03-31-2024 BUN/CRE 19.6 RATIO Normal 10-20 [facility] Comment on above: Order Comment: +mag Performed By: #### L 500.2500, L501.5200 #### [facility] [address] [place], [address] CA,Total 8.7 mg/dL Normal 8.5-10.1 [facility] Comment on above: Order Comment: +mag Performed By: #### L 500.2500, L501.5200 #### [facility] [address] [place], [address] Chloride [Moles/Vol] 111 mmol/L High 98-107 [facility] Comment on above: Order Comment: +mag Performed By: #### L 500.2500, L501.5200 #### [facility] [address] [place], [address] CO2 [Moles/Vol] 28.0 mmol/L Normal 21.0-32.0 [facility] Comment on above: Order Comment: +mag Performed By: #### L 500.2500, L501.5200 #### [facility] [address] [place], [address] Creatinine [Mass/Vol] 0.92 mg/dL Normal 0.70-1.30 [facility] Comment on above: Order Comment: +mag Result Comment: The validity of the calculated GFR GFRAA in patients over 70 years has not been determined. Clinical correlation is essential. Performed By: #### L 500.2500, L501.5200 #### [facility] [address] [place], [address] ECRCL 81.53 ml/min Normal [facility] Comment on above: Order Comment: +mag Performed By: #### L 500.2500, L501.5200 #### [facility] [address] [place], [address] EST GFR - AA 103 mL/min Normal >60 [facility] Comment on above: Order Comment: +mag Result Comment: Afri can [place] GFR Calc Performed By: #### L 500.2500, L501.5200 #### [facility] [address] [place], [address] GAP 7 Normal 5-15 [facility] Comment on above: Order Comment: +mag Performed By: #### L 500.2500, L501.5200 #### [facility] Laboratory [address] [place], [address] GFR/1.73 sq M.predicted among non-blacks MDRD (S/P/Bld) [Vol rate/Area] 85 mL/min/{1.73_m2} Normal >60 [facility] Comment on above: Order Comment: +mag Result Comment: Non- GFR Calc Performed By: #### L 500.2500, L501.5200 #### [facility] Laboratory [address] [place], [address] Glucose [Mass/Vol] 107 mg/dL High 74-106 [facility] Comment on above: Order Comment: +mag Result Comment: Fast ing Glucose result from 100 to 125 mg/dL suggests IMPAIRED HOMEOSTASIS per A.D.A. criteria. Performed By: #### L 500.2500, L501.5200 #### [facility] Laboratory [address] [place], [address] Potassium [Moles/Vol] 4.0 mmol/L Normal 3.5-5.1 [facility] Comment on above: Order Comment: +mag Performed By: #### L 500.2500, L501.5200 #### [facility] Laboratory [address] [place], [address] Sodium [Moles/Vol] 145 mmol/L Normal 136-145 [facility] Comment on above: Order Comment: +mag Performed By: #### L 500.2500, L501.5200 #### [facility] [address] [place], [address] Urea nitrogen [Mass/Vol] 18 mg/dL Normal 7-18 [facility] Comment on above: Order Comment: +mag Performed By: #### L 500.2500, L501.5200 #### [facility] Laboratory [address] [place], [address] Blood urea nitrogen (BUN)/cr eatinine ratioOrdered By: Jevon Sanchez on 03-31-2024 Urea nitrogen/Creatinine [Mass ratio] 19.6 mg/mg 10-20 [facility] CNPNon 03-31-2024 CNPN Normal [facility] Carbon dioxide measurementOr dered By: Jevon Sanchez on 03-31-2024 CO2 [Moles/Vol] 28.0 mmol/L 21.0-32.0 [facility] Chloride measurementOrdered By: Jevon Sanchez on 03-31-2024 Chloride [Moles/Vol] 111 mmol/L High 98-107 [facility] EGD Reporton 03-31-2024 EGD Report [facility] Medical Records Department [address] [address] EGD Report MR#: [id number] Acct: [id number] Name: HOMERO MEI Rep #: [id number] : 1945 78 From: Cami Diaz DO PCP: Dr. Moiz Chaudhary MD Status:[facility] Patient Name: Homero Mei Procedure Date: 03/31/2024 6:28 AM Date of : 1945 Age: 78 Procedure: Upper GI endoscopy Indications: Iron deficiency anemia, Follow-up of peptic ulcer Providers: Cami Diaz DO Referring MD: Moiz Chaudhary Medicines: Monitored Anesthesia Care Patient Profile: This is a 78 year old male. Refer to note in patient chart for documentation of history and physical. Patient has symptoms. His most recent EGD for treatment of bleeding and EGD for ulcer treatment. Complications: No immediate complications. Procedure: Pre-Anesthesia Assessment: - Prior to the procedure, a History and Physical was performed, and patient medications and allergies were reviewed. The patient is competent. The risks and benefits of the procedure and the sedation options and risks were discussed with the patient. All questions were answered and informed consent was obtained. Patient identification and proposed procedure were verified by the physician in the pre-procedure area. Mental Status Examination: alert and oriented. Airway Examination: normal oropharyngeal airway and neck mobility. Respiratory Examination: clear to auscultation. CV Examination: normal. Prophylactic Antibiotics: The patient does not require prophylactic antibiotics. Prior Anticoagulants: The patient has taken no anticoagulant or antiplatelet agents except for NSAID medication. ASA Grade Assessment: III - A patient with severe systemic disease. After reviewing the risks and benefits, the patient was deemed in satisfactory condition to undergo the procedure. The anesthesia plan was to use monitored anesthesia care (MAC). Immediately prior to administration of medications, the patient was re-assessed for adequacy to receive sedatives. The heart rate, respiratory rate, oxygen saturations, blood pressure, adequacy of pulmonary ventilation, and response to care were monitored throughout the procedure. The physical status of the patient was re-assessed after the procedure. After obtaining informed consent, the endoscope was passed under direct vision. Throughout the procedure, the patient's blood pressure, pulse, and oxygen saturations were monitored continuously. The Endoscope was introduced through the mouth, and advanced to the second part of duodenum. The upper GI endoscopy was accomplished without difficulty. The patient tolerated the procedure well. Scope In: 6:59:31 AM Scope Out: 7:01:48 AM Total Procedure Duration Time 0 hours 2 minutes 17 seconds Findings: The examined esophagus was normal. One non-bleeding superficial gastric ulcer with no stigmata of bleeding was found in the stomach. The lesion was 3 mm in largest dimension. Biopsies were taken with a cold forceps for histology. Verification of patient identification for the specimen was done. Biopsies were taken with a cold forceps for Helicobacter pylori testing. Verification of patient identification for the specimen was done. Estimated blood loss was minimal. The first portion of the duodenum was normal. Impression: - Normal esophagus. - Non-bleeding gastric ulcer with no stigmata of bleeding. Biopsied. - Normal first portion of the duodenum. Recommendation: - Discharge patient to home. - Resume previous diet. - Continue present medications. - Await pathology results. Procedure Code(s): --- Professional --- 50613, Esophagogastroduodenoscopy, flexible, transoral; with biopsy, single or multiple CPT copyright 2021 [employer]. All rights reserved. The codes documented in this report are preliminary and upon information coder review may be revised to meet current compliance requirements. Cami Diaz DO 03/31/2024 7:07:55 AM This report has been signed electronically. Number of Addenda: 0 Note Initiated On: 03/31/2024 6:28 AM 03/31/2408 Date Cami Diaz DO Cosigner Signature: Date (if indicated) CC: Dr. Moiz Chaudhary MD; Cami Diaz DO Date Dictated: 03/31/24 0628 Date Transcribed: Motor Winder: PILAR Signed Normal [facility] Estimated glomerular filtrat ion rate (GFR) AmericanOrdered By: Jevon Sanchez on 03-31-2024 Estimated GFR (MDRD) Amer 103 mL/min >60 [facility] Comment on above: GFR Calc Estimation of creatinine lewis aranceOrdered By: Jevon Sanchez on 03-31-2024 Estimated Creatinine Clearance Calc 81.53 ml/min [facility] Glomerular filtration rate ( GFR) estimationOrdered By: Jevon Sanchez on 03-31-2024 Estimated GFR (MDRD) Non-Af Amer 85 mL/min >60 [facility] Comment on above: Non- GFR Calc GFR/1.73 sq M.predicted among non-blacks MDRD (S/P/Bld) [Vol rate/Area] 85 mL/min/{1.73_m2} >60 [facility] Comment on above: Non- GFR Calc Glucose measurementOrdered B y: Jevon Sanchez on 03-31-2024 Glucose [Mass/Vol] 107 mg/dL High 74-106 [facility] Comment on above: Fasting Glucose resu lt from 100 to 125 mg/dL suggests IMPAIRED HOMEOSTASIS per A.D.A. criteria. H Pylori (initial)on H Pylori (initial) ------- Patient Age/Sex Location Account Attending Physician HOMEOR MEI 78/M EN [id number] Cami Diaz DO Specimen: [id number] Received: 03/31/24 Status: LÁZARO Trujillo Num: [id number] Spec Type: IMMUNO Subm Dr: Cami Diaz DO PHYSICIAN INSTITUTION [address] [address] SPECIMEN INFORMATION: Tissue Source: Gastric ulcer biopsy Clinical Info: Anemia, GI bleed Specimen Number: [id number] CPT code: 41520 METHODOLOGY: Deparaffinized sections of prefer/formalin-fixed tissue or PAP/DQ stained slides are incubated with monoclonal/polyclonal antibodies/oligonucleotide probes. Localization is made via biotin free immunoperoxidase method. Appropriate controls are performed and reacted as expected. Results on target cell population are indicated in the following table: RESULTS: ANTIBODY / CLONE RESULT H Pylori (polyclonal) negative These tests were developed and their performance characteristics determined by [facility]. They may not have been cleared or approved by the U.S. Food and Drug Administration. The FDA has determined that such clearance or approval is not necessary. The above immunohistochemical/dualISH markers are ordered and reviewed by the Pathologist. INTERPRETATION: Gastric ulcer, biopsy: Negative for Helicobacter pylori organisms. 04/01/2024 Signed (signature on file) Dr. Michael Duarte MD 04/01/24 1315 Normal [facility] Comment on above: Performed By: #### P H.PYLORI #### [facility] Laboratory [address] [place], [place], [address] MR/POSTOP.Vincent 03-31-2024 MR/POSTOP.BARRY [facility] Medical Records Department [address] [facility] [facility] [place] [address] Anesthesia Postop Eval I 03/31/24 0710 MR#: [id number] Acct: [id number] Name: HOMERO MEI Rep #: [id number] : 1945 78 From: Mina Castaneda PCP: Dr. Moiz Chaudhary MD Status:[facility] Y Race: C Location: [facility]11-19 Anesthesia: Postop Eval I Current Vital Signs Temperature: 98.4 F Pulse Rate: 74 Blood Pressure: 94/61 Respiratory Rate: 14 Pulse Ox: 96 Oxygen Delivery Method: Room Air Assessment Airway patent: Yes Spontaneous unlabored respirations: Yes Mental status: Awake and Calm nausea: No Vomiting: No Anesthesia Complication: No Fluid Hydration Crystalloid volume administer (ml): 30 Total IV fluid infused: 30 Progress Note Anesthesia document: Postop Eval 1 completed: Yes 03/31/24 07 Date Mina Alaniz Signature: Date CC: Signed Normal [facility] MR/[id number] 03-31-2024 [facility] Medical Records Department [address] [facility] [place] [address] Anesthesia Postop Eval II 03/31/24 0909 MR#: [id number] Acct: [id number] Name: HOMERO MEI Rep #: [id number] : 1945 78 From: Jevon Sanchez MD PCP: Dr. Moiz Chaudhary MD Status:[facility] Y Race: C Location: EN Anesthesia Postop Eval I Sum Postop Eval Completion status Anesthesia document: Postop Eval 1 completed: Yes Anesthesia Postop Eval I Summary Anesthesia Postop Eval I Summary: Anesthesia Postop Eval I: Assessment Summary Airway patent Yes 03/31/24 07:11 [email or web address] Spontaneous unlabored Yes 03/31/24 07:11 [email or web address] respirations Mental status Awake,Calm 03/31/24 07:11 [email or web address] nausea No 03/31/24 07:11 [email or web address] Vomiting No 03/31/24 07:11 [email or web address] Anesthesia Postop Eval I: Fluid Summary Crystalloid volume administer 30 03/31/24 07:11 [email or web address] (ml) Colloids volume administered ( ml) Blood Product volume administered (ml) Total IV fluid infused 30 03/31/24 07:11 [email or web address] Anesthesia Postop Eval I: Summary Notes Anesthesia Complication No 03/31/24 07:11 [email or web address] Anesthesia Complication Comment: Post-operative progress note Anesthesia: Postop Eval II Evaluation Mental status: Awake Pain Level: 0 nausea: No Vomiting: No Progress Note Post-operative progress note: patient with Freq pvc's. obtained ekg nl except pvcs. electrolytes within nl limits. Given EKG and to follow up with his registration representative. 03/31/24909 Date Jevon Alaniz Signature: Date CC: Signed Normal [facility] Magnesiumon 03-31-2024 Magnesium [Mass/Vol] 2.4 mg/dL Normal 1.6-2.6 [facility] Comment on above: Performed By: #### L 500.2500, L501.5200 #### [facility] Laboratory [address] [place], [place], [id number] Magnesium measurementOrdered By: Jevon Sanchez on 03-31-2024 Magnesium [Mass/Vol] 2.4 mg/dL 1.6-2.6 [facility] Potassium measurementOrdered By: Jevon Sanchez on 03-31-2024 Potassium [Moles/Vol] 4.0 mmol/L 3.5-5.1 [facility] Serum anion gap measurementO rdered By: Jevon Sanchez on 03-31-2024 Anion gap [Moles/Vol] 7 mmol/L 5-15 [facility] Serum or plasma calcium ginny urement (mass/volume)Ordered By: Jevon Sanchez on 03-31-2024 Calcium [Mass/Vol] 8.7 mg/dL 8.5-10.1 [facility] Serum or plasma creatinine m easurement (mass/volume)Ordered By: Jevon Sanchez on 03-31-2024 Creatinine [Mass/Vol] 0.92 mg/dL 0.70-1.30 [facility] Comment on above: The validity of the calculated GFR & GFRAA in patients over 70 years has not been determined. Clinical correlation is essential. Serum or plasma urea nitroge n measurement (mass/volume)Ordered By: Jevon Sanchez on 03-31-2024 Urea nitrogen [Mass/Vol] 18 mg/dL 7-18 [facility] Sodium levelOrdered By: Jevon Sanchez on 03-31-2024 Sodium [Moles/Vol] 145 mmol/L 136-145 [facility] Special Stain Group Ion - Special Stain Group I --------- Patient Age/Sex Location Account Attending Physician HOMERO MEI/Gege POST [id number] Cami Diaz DO Specimen: [id number] Received: 03/31/24 Status: LÁZARO Trujillo Num: [id number] Spec Type: Gastric Bx Subm Dr: Cami Diaz DO HEADER OPERATION: EGD, biopsy PRE-OP DIAGNOSIS: Anemia, GI bleed TISSUE SUBMITTED: Gastric ulcer biopsy MICROSCOPIC DIAGNOSIS Gastric ulcer, biopsy: Moderate chronic active gastritis. Focal intestinal metaplasia (goblet cell metaplasia). See comment. SJ.mr 04/01/2024 COMMENT The results of immunohistochemistry for Helicobacter pylori will be reported separately ([id number]). Alcian blue/PAS stain with matched control is used in the evaluation of the specimen. MICROSCOPIC DESCRIPTION Slides are reviewed. GROSS DESCRIPTION Received in fixative is one container labeled with the patient's name and designated Gastric ulcer biopsy. The specimen consists of two irregular fragments of light gao soft tissue that in aggregate measure 0.8 x 0.5 x 0.1 cm. The specimen is totally submitted in one cassette. 03/31/2024 TC:2 CPT:71991,36255 Patient Age/Sex Location Account Attending Physician HAMIDAHOMERO MONIQUE 78/M EN [id number] Cami Diaz DO Signed (signature on file) Dr. Michael Duarte MD 04/01/24 1330 [facility] Comment on above: Performed By: #### P SSI #### [facility] Laboratory [address] [place], [address] CNPNon 03-28-2024 CNPN Normal [facility] MR/PAT.ANEiveth 03-28-2024 MR/PAT.BARRY [facility] Medical Records Department [address] [place] [address] PAT - Anesthesia 03/28/24917 MR#: [id number] Acct: [id number] Name: HOMERO MEI Rep #: [id number] : 1945 78 From: Jevon Sanchez MD PCP: Dr. Moiz Chaudhary MD Status:PRE SDC Y Race: C Location: EN Pre-Assessment Diagnosis/Proposed Procedure Planned Operative Procedure(s): EGD Anesthesia History Anesthesia History - produce shipper: Anesthesia History - produce shipper Hx Hospitalization Yes: CABG X3 CC 02/28/24 03/27/24 11:03 Any Problems With Anesthesia Yes 03/27/24 11:03 Cholinesterase deficiency No 03/27/24 11:03 You/Your Family Experience No 03/27/24 11:03 fever (hyperthermia) with Relationship Recent Exposure to Contagious No 10/01/23 08:34 Disease Does patient have nerve No 03/27/24 11:03 stimulator Patient instructed to have device shut off --Does patient have Pacemaker or ICD? When Was Last Pacemaker Check QUESTION #4 FULL TEXT: You/Your Family Experience fever (hyperthermia) with Anesthesia Last Oral Intake Last Oral intake: Last Oral Intake NPO since Meds taken in AM with sips of water? 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 - produce shipper: PONV - produce shipper Female No 03/27/24 11:03 HX of Motion Sickness No 03/27/24 11:03 HX of N/V After Surgery No 03/27/24 11:03 Non-Smoker Yes 03/27/24 11:03 Duration of Surgery greater No 03/27/24 11:03 than 60 minutes Number of Risk Factors 1 03/27/24 11:03 PONV Score Low Risk 03/27/24 11:03 Height Weight Height Weight: Anesthesia: Height Weight Height 5 ft 11 in 10/12/23 09:09 Respiratory Assessment Respiratory Assessment - produce shipper: Respiratory Tract Infection Hx - produce shipper Hx Respiratory Tract Infection No 03/27/24 11:03 STOP Sleep Apnea STOP Sleep Apnea - produce shipper: STOP Sleep Apnea - produce shipper Hx Hypertension Yes 03/27/24 11:03 Hx Sleep Apnea Yes 03/27/24 11:03 CPAP No 03/27/24 11:03 BIPAP No 03/27/24 11:03 Do you snore loudly (louder than talking or can be heard Do you often feel tired/ fatigued/ sleepy during daytime? Has anyone observed you stop breathing during sleep? STOP Results Positive 03/27/24 11:03 QUESTION #5 FULL TEXT : Do you snore loudly (louder than talking or can be heard through closed doors)? Tobacco Use History Tobacco Use History - produce shipper: Tobacco Use History - produce shipper Tobacco Use Smoking Status Never smoker 03/27/24 11:03 Hx Tobacco Use No 03/27/24 11:03 Years Smoking Packs Smoked per Day Smoking Cessation Date was within the last 15 years Hx Smoking Cessation Date Hx Smoking Cessation Counseling Hematologic Medial History Hematologic Hx - produce shipper: Hematologic Medical Hx - stitch separator Hx of Blood Transfusion Yes 03/27/24 11:03 Hx of Transfusion in last 3 Yes 03/27/24 11:03 Months Date of Last Transfusion (if 02/28/24 03/27/24 11:03 within last 3 months) Ever experience any problems No 03/27/24 11:03 with transfusion(s)? Specify any problems Hx of Preganancy in last 3 N/A 03/27/24 11:03 Months Nurse Filling Out Transfusion [email or web address] 03/27/24 11:03 Questions: Date: 03/27/24 03/27/24 11:03 Time: 11:05 03/27/24 11:03 Patient unable to answer at this time (ie. confused, unrespo /Reproduction History /Reproductive History - produce shipper: /Reproductive Hx- produce shipper Hx Now Gestational Age (in weeks): EDC: Hx Hx Para Hx Section SAB No 12/03/23 09:38 PFSH Medical History (Updated 03/27/24 @ 11:11 by Yasmani Shrestha) History of echocardiogram History of stress test Cardiology follow-up encounter Open wound Lives in assisted living facility Wears glasses Anxiety Alcohol use History of renal disease Arthritis Anemia Syncope History of ulceration Non-smoker History of pain when walking Dementia Colon polyps Macular degeneration Hypertension Hyperlipidemia BPH (benign prostatic hyperplasia) Elevated BP without diagnosis of hypertension Hypoxia Severe sepsis Pneumonia due to COVID-19 virus Home Medications ???Medication ???Instructions ???Recorded ???Last Taken ???Type donepezil 5 mg tablet 10 mg PO DAILY 06/04/23 10/01/23 H istory pantoprazole 40 mg tablet,delayed 40 mg PO DAILY #30 tabs 09/11/23 10/01/23 Rx release (Protonix) fluticasone propionate 50 2 spray intranasal DAILY PRN PRN 0 09/28/23 Unknown History mcg/actuation nasal nasal congestion spray,suspe (more content not included)... Normal [facility] Basic metabolic 2000 panelon 03-26-2024 Anion gap [Moles/Vol] 9 mmol/L Normal 8-15 [facility] Comment on above: Order Comment: Speci men Type: BLOOD SPECIMENOrdering Facility: [facility] Address: [address] [place] [address] Performed By: #### 2 4321-2 ####[facility] MILLTOWNCLIA [id number] [place] [address] [place] Calcium [Mass/Vol] 9.3 mg/dL Normal 8.5-10.2 [facility] Comment on above: Order Comment: Speci men Type: BLOOD SPECIMENOrdering Facility: [facility] Address: [address] [place] [address] Performed By: #### 2 4321-2 ####[facility] MILLTOWNCLIA [id number] [place] [address] [place] Chloride [Moles/Vol] 107 mmol/L Normal 98-107 [facility] Comment on above: Order Comment: Speci men Type: BLOOD SPECIMENOrdering Facility: [facility] Address: [address] [place] [address] Performed By: #### 2 4321-2 ####[facility] MILLTOWNCLIA [id number] [place] [address] [place] CO2 [Moles/Vol] 25 mmol/L Normal 22-30 [facility] Comment on above: Order Comment: Speci men Type: BLOOD SPECIMENOrdering Facility: [facility] Address: [address] [place] [address] Performed By: #### 2 4321-2 ####[facility] MILLTOWNCLIA [id number] [place] [address] [place] Creatinine [Mass/Vol] 0.96 mg/dL Normal 0.73-1.22 [facility] Comment on above: Order Comment: Rachid sanchez Type: BLOOD SPECIMENOrdering Facility: [facility] Address: [address] [place] [address] Performed By: #### 2 4321-2 ####[facility] [id number] [place] [address] [place] Creatinine and Glomerular filtration rate.predicted panel (S/P/Bld) 82 mL/min/1.73m??? Normal >=60 [facility] Comment on above: Order Comment: Rachid sanchez Type: BLOOD SPECIMENOrdering Facility: [facility] Address: [address] [place] [address] Result Comment: Teri mated Glomerular Filtration Rate (eGFR) is calculated using the 2020 CKD-EPI creatinine equation. This equation utilizes serum creatinine, sex, and age as parameters. The creatinine assay has traceable calibration to isotope dilution-mass spectrometry. Refer to KDIGO guidelines for clinical interpretation. In patients with unstable renal function, e.g. those with acute kidney injury, the eGFR may not accurately reflect actual GFR. Performed By: #### 2 4321-2 ####[facility] [id number] [place] [address] [place] Glucose [Mass/Vol] 112 mg/dL High 74-99 [facility] Comment on above: Order Comment: Rachid sanchez Type: BLOOD SPECIMENOrdering Facility: [facility] Address: [address] [place] [address] Result Comment: The [place] [employer] (ADA) provides guidance for cutoff values for fasting glucose and random glucose. The ADA defines fasting as no caloric intake for at least 8 hours. Fasting plasma glucose results between 100 to 125 mg/dL indicate increased risk for diabetes (prediabetes).Fasting plasma glucose results greater than or equal to 126 mg/dL meet the criteria for diagnosis of diabetes. In the absence of unequivocal hyperglycemia, results should be confirmed by repeat testing. In a patient with classic symptoms of hyperglycemia or hyperglycemic crisis, random plasma glucose results greater than or equal to 200 mg/dL meet the criteria for diagnosis of diabetes.Reference: Standards of Medical Care in Diabetes 2016, [employer]. Diabetes Care. 2016.39(Suppl 1). Performed By: #### 2 4321-2 ####[facility] PARULLIA [id number] [place] [address] [place] Potassium [Moles/Vol] 4.1 mmol/L Normal 3.7-5.1 [facility] Comment on above: Order Comment: Speci men Type: BLOOD SPECIMENOrdering Facility: [facility] Address: [address] [place] [address] Performed By: #### 2 4321-2 ####[facility] HOSPITALCHACENilda [id number] [place] [address] [place] Sodium [Moles/Vol] 141 mmol/L Normal 136-144 [facility] Comment on above: Order Comment: Speci men Type: BLOOD SPECIMENOrdering Facility: [facility] Address: [address] [place] [address] Performed By: #### 2 4321-2 ####[facility] HOSPITALNilda [id number] [place] [address] [place] Urea nitrogen [Mass/Vol] 17 mg/dL Normal 9-24 [facility] Comment on above: Order Comment: Speci men Type: BLOOD SPECIMENOrdering Facility: [facility] Address: [address] [place] [address] Performed By: #### 2 4321-2 ####THE [facility] [id number] [place] [address] [place] CBC W Auto Differential pane l (Bld)on 03-26-2024 Basophils (Bld) [#/Vol] 0.03 10*3/uL Normal <0.11 [facility] Comment on above: Order Comment: Speci men Type: BLOOD SPECIMENOrdering Facility: [facility] Address: [address] [place] [address] Performed By: #### 5 7021-8 ####[facility] MILLWNCLIA [id number] [place] [address] [place] Basophils/100 WBC (Bld) 0.4 % Normal [facility] Comment on above: Order Comment: Speci men Type: BLOOD SPECIMENOrdering Facility: [facility] Address: [address] [place] [address] Performed By: #### 5 7021-8 ####[facility]ITALCHACELIA [id number] [place] [address] [place] Differential cell count method Nom (Bld) Auto Normal [facility] Comment on above: Order Comment: Speci men Type: BLOOD SPECIMENOrdering Facility: [facility] Address: [address] [place] [address] Performed By: #### 5 7021-8 ####[facility] [id number] [place] [address] [place] Eosinophils (Bld) [#/Vol] 0.23 10*3/uL Normal <0.46 [facility] Comment on above: Order Comment: Speci men Type: BLOOD SPECIMENOrdering Facility: [facility] Address: [address] [place] [address] Performed By: #### 5 7021-8 ####[facility] [id number] [place] [address] [place] Eosinophils/100 WBC (Bld) 3.0 % Normal [facility] Comment on above: Order Comment: Speci men Type: BLOOD SPECIMENOrdering Facility: [facility] Address: [address] [place] [address] Performed By: #### 5 7021-8 ####[facility] HOSPITALNCLIA [id number] [place] [address] [place] Erythrocyte distribution width (RBC) [Ratio] 15.8 % High 11.5-15.0 [facility] Comment on above: Order Comment: Speci men Type: BLOOD SPECIMENOrdering Facility: [facility] Address: [address] [place] [address] Performed By: #### 5 7021-8 ####[facility] [id number] [place] [address] [place] Hematocrit (Bld) [Volume fraction] 29.4 % Low 39.0-51.0 [facility] Comment on above: Order Comment: Speci men Type: BLOOD SPECIMENOrdering Facility: [facility] Address: [address] [place] [address] Performed By: #### 5 7021-8 ####[facility] [id number] [place] [address] [place] Hemoglobin (Bld) [Mass/Vol] 9.3 g/dL Low 13.0-17.0 [facility] Comment on above: Order Comment: Speci men Type: BLOOD SPECIMENOrdering Facility: [facility] Address: [address] [place] [address] Performed By: #### 5 7021-8 ####[facility] [id number] [place] [address] [place] Immature granulocytes (Bld) [#/Vol] 10*3/uL Normal <0.10 [facility] Comment on above: Order Comment: Speci men Type: BLOOD SPECIMENOrdering Facility: [facility] Address: [address] [place] [address] Performed By: #### 5 7021-8 ####[facility] [id number] [place] [address] [place] Immature granulocytes/100 WBC (Bld) 0.3 % Normal [facility] Comment on above: Order Comment: Speci men Type: BLOOD SPECIMENOrdering Facility: [facility] Address: [address] [place] [address] Performed By: #### 5 7021-8 ####[facility] MILLLEANAWNCLIA [id number] [place] [address] [place] Lymphocytes (Bld) [#/Vol] 1.27 10*3/uL Normal 1.00-4.00 [facility] Comment on above: Order Comment: Speci men Type: BLOOD SPECIMENOrdering Facility: [facility] Address: [address] [place] [address] Performed By: #### 5 7021-8 ####[facility]ENTERWCHACELIA [id number] [place] [address] [place] Lymphocytes/100 WBC (Bld) 16.5 % Normal [facility] Comment on above: Order Comment: Speci men Type: BLOOD SPECIMENOrdering Facility: [facility] Address: [address] [place] [address] Performed By: #### 5 7021-8 ####[facility]ENTERWNCLIA [id number] [place] [address] [place] MCH (RBC) [Entitic mass] 28.4 pg Normal 26.0-34.0 [facility] Comment on above: Order Comment: Speci men Type: BLOOD SPECIMENOrdering Facility: [facility] Address: [address] [place] [address] Performed By: #### 5 7021-8 ####[facility] MILLTOWNCLIA [id number] [place] [address] [place] MCHC (RBC) [Mass/Vol] 31.6 g/dL Normal 30.5-36.0 [facility] Comment on above: Order Comment: Speci men Type: BLOOD SPECIMENOrdering Facility: [facility] Address: [address] [place] [address] Performed By: #### 5 7021-8 ####[facility] CAN[facility] CENTERLIA [id number] [place] [address] [place] MCV (RBC) [Entitic vol] 89.6 fL Normal 80.0-100.0 [facility] Comment on above: Order Comment: Speci men Type: BLOOD SPECIMENOrdering Facility: [facility] Address: [address] [place] [address] Performed By: #### 5 7021-8 ####[facility] [id number] [place] [address] [place] Monocytes (Bld) [#/Vol] 0.64 10*3/uL Normal <0.87 [facility] Comment on above: Order Comment: Speci men Type: BLOOD SPECIMENOrdering Facility: [facility] Address: [address] [place] [address] Performed By: #### 5 7021-8 ####[facility] [id number] [place] [address] [place] Monocytes/100 WBC (Bld) 8.3 % Normal [facility] Comment on above: Order Comment: Speci men Type: BLOOD SPECIMENOrdering Facility: [facility] Address: [address] [place] [address] Performed By: #### 5 7021-8 ####[facility] [id number] [place] [address] [place] Neutrophils (Bld) [#/Vol] 5.53 10*3/uL Normal 1.45-7.50 [facility] Comment on above: Order Comment: Speci men Type: BLOOD SPECIMENOrdering Facility: [facility] Address: [address] [place] [address] Performed By: #### 5 7021-8 ####[facility] [id number] [place] [address] [place] Neutrophils/100 WBC (Bld) 71.5 % Normal [facility] Comment on above: Order Comment: Speci men Type: BLOOD SPECIMENOrdering Facility: [facility] Address: [address] [place] [address] Performed By: #### 5 7021-8 ####[facility] [id number] [place] [address] [place] Nucleated RBC (Bld) [#/Vol] 10*3/uL Normal <0.01 [facility] Comment on above: Order Comment: Speci men Type: BLOOD SPECIMENOrdering Facility: [facility] Address: [address] [place] [address] Performed By: #### 5 7021-8 ####[facility] [id number] [place] [address] [place] Nucleated RBC/100 WBC (Bld) [Ratio] 0.0 /100 WBC Normal [facility] Comment on above: Order Comment: Speci men Type: BLOOD SPECIMENOrdering Facility: [facility] Address: [address] [place] [address] Performed By: #### 5 7021-8 ####[facility] [id number] [place] [address] [place] Platelet mean volume (Bld) [Entitic vol] 10.6 fL Normal 9.0-12.7 [facility] Comment on above: Order Comment: Speci men Type: BLOOD SPECIMENOrdering Facility: [facility] Address: [address] [place] [address] Performed By: #### 5 7021-8 ####[facility] [id number] [place] [address] [place] Platelets (Bld) [#/Vol] 253 10*3/uL Normal 150-400 [facility] Comment on above: Order Comment: Speci men Type: BLOOD SPECIMENOrdering Facility: [facility] Address: [address] [place], [place] [address] Performed By: #### 5 7021-8 ####[facility] PERLITAECRUNCLIA [id number] [place] [address] [place] RBC (Bld) [#/Vol] 3.28 10*6/uL Low 4.20-6.00 [facility] Comment on above: Order Comment: Speci men Type: BLOOD SPECIMENOrdering Facility: [facility] Address: [address] [place], [place] [address] Performed By: #### 5 7021-8 ####[facility] HOSPITALNCLIA [id number] [place] [address] [place] WBC (Bld) [#/Vol] 7.72 10*3/uL Normal 3.70-11.00 [facility] Comment on above: Order Comment: Speci men Type: BLOOD SPECIMENOrdering Facility: [facility] Address: [address] [place], [place] [address] Performed By: #### 5 7021-8 ####[facility] H[facility]ITALCHACELIA [id number] [place] [address] [place] CNPNon 03-26-2024 CNPN Normal [facility] XR CHEST 2V FRONTAL/LATon XR CHEST 2V FRONTAL/LAT Normal [facility] XR Chest PA and Lateralon IMPRESSION: Persistent fluid and atelectasis at the right lung base Motor Winder[facility] Transcribe Date/Time: Mar 26 2024 2:34P Dictated by : GENEVA COLEMAN MD This examination was interpreted and the report reviewed and electronically signed by: GENEVA COLEMAN MD on Mar 26 2024 2:36PM [facility] DIVISION OF RADIOLOGY * * *Final Report* * * DATE OF EXAM: Mar 26 2024 11:57AM [id number] - XR CHEST 2V FRONTAL/LAT / PROCEDURE REASON: multiple diagnoses * * * * Physician Interpretation * * * * EXAMINATION: CHEST RADIOGRAPH (2 VIEW FRONTAL & LATERAL) CLINICAL HISTORY: Coronary artery disease involving [place]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[place] heart without angina pectoris S/P CABG (coronary artery bypass graft) MQ: XC2_6 EXAM DATE/TIME: 03/26/2024 11:57 AM COMPARISON: 03/09/2024 RESULT: Lines, tubes, and devices: Mediastinal wires are in place. Lungs and pleura: Fluid and atelectasis at the right base. Remaining lung larson are clear. No lung mass. . No pneumothorax. Cardiomediastinal silhouette: Stable cardiomediastinal silhouette. Bones and soft tissues: Unremarkable. DIVISION OF RADIOLOGY Provider, [facility] - 03/26/2024 * * *Final Report* * * DATE OF EXAM: Mar 26 2024 11:57AM [id number] - XR CHEST 2V FRONTAL/LAT / PROCEDURE REASON: multiple diagnoses * * * * Physician Interpretation * * * * EXAMINATION: CHEST RADIOGRAPH (2 VIEW FRONTAL & LATERAL) CLINICAL HISTORY: Coronary artery disease involving [place]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[place] heart without angina pectoris S/P CABG (coronary artery bypass graft) MQ: XC2_6 EXAM DATE/TIME: 03/26/2024 11:57 AM COMPARISON: 03/09/2024 RESULT: Lines, tubes, and devices: Mediastinal wires are in place. Lungs and pleura: Fluid and atelectasis at the right base. Remaining lung larson are clear. No lung mass. . No pneumothorax. Cardiomediastinal silhouette: Stable cardiomediastinal silhouette. Bones and soft tissues: Unremarkable. IMPRESSION IMPRESSION: Persistent fluid and atelectasis at the right lung base Motor Winder: [facility] Transcribe Date/Time: Mar 26 2024 2:34P Dictated by : GENEVA COLEMAN MD This examination was interpreted and the report reviewed and electronically signed by: GENEVA COLEMAN MD on Mar 26 2024 2:36PM EST [facility] Radiology Study observation (narrative) [facility] XR Chest PA and LateralOrder ed By: Ccf Provider on 03-26-2024 [facility] CNPNon 03-25-2024 CNPN Normal [facility] CNOVon 03-24-2024 CNOV Normal [facility] BMP with eGFRon 03-21-2024 AGE 78 years Normal [facility] Comment on above: Performed By: #### 2 60722 #### [facility],[address] [place] [address] 74195 Anion gap [Moles/Vol] 7 mmol/L Low 10 - 20 [facility] Comment on above: Performed By: #### 2 83211 #### [facility],[address] [place] [address] 42200 BMP with eGFR Normal [facility] Comment on above: Result Comment: BASI C METABOLIC PANEL Performed By: #### 2 59815 #### [facility],[address] [place] [address] 13936 Calcium [Mass/Vol] 8.4 mg/dL Low 8.5 - 10.1 [facility] Comment on above: Performed By: #### 2 30559 #### [facility],[address] [place] [address] 90312 Chloride [Moles/Vol] 106 mmol/L Normal 98 - 107 [facility] Comment on above: Performed By: #### 2 71396 #### [facility],[address] [place] [address] 09357 CO2 [Moles/Vol] 28.5 mmol/L Normal 21.0 - 32.0 [facility] Comment on above: Result Comment: TEST REPEATED Performed By: #### 2 48967 #### [facility],[address] [place] [address] 33219 Creatinine [Mass/Vol] 0.87 mg/dL Normal 0.70 - 1.30 [facility] Comment on above: Performed By: #### 2 69955 #### [facility],[address] [place] [address] 13068 GFR/1.73 sq M.predicted among non-blacks MDRD (S/P/Bld) [Vol rate/Area] mL/min/{1.73_m2} Normal 60 - 999 [facility] Comment on above: Performed By: #### 2 40449 #### [facility],[address] [place] [address] Result Comment: ACCO RDING TO THE NATIONAL KIDNEY DISEASE EDUCATION PROGRAM(NKDE), A NORMAL eGFR IS A VALUE GREATER THAN OR EQUAL TO 60 ML/MIN/1.73 SQ METERS. CHRONIC KIDNEY DISEASE: <60mL/MIN/1.73 SQ METERS KIDNEY FAILURE: <15mL/MIN/1.73 SQ METERS THIS TEST SHOULD ONLY BE USED FOR PATIENTS 18 YEARS OF AGE AND OLDER. Glucose [Mass/Vol] 94 mg/dL Normal 74 - 106 [facility] Comment on above: Performed By: #### 2 16103 #### [facility],[address] [place] [address] Potassium [Moles/Vol] 3.6 mmol/L Normal 3.5 - 5.1 [facility] Comment on above: Performed By: #### 2 59433 #### [facility],[address] [place] [address] Sodium [Moles/Vol] 138 mmol/L Normal 136 - 145 [facility] Comment on above: Performed By: #### 2 81938 #### [facility],[address] [place], [place] [id number] Urea nitrogen [Mass/Vol] 11 mg/dL Normal 7 - 18 [facility] Comment on above: Performed By: #### 2 06291 #### [facility],[address] [place], [place] [id number] CBC + DIFFon 03-21-2024 Baso # 0.02 x10EE3/UL Normal 0.00 - 0.10 [facility] Comment on above: Performed By: #### 2 22736 #### [facility],[address] [place] [address] 60562 Basophils/100 WBC (Bld) 0.3 % Normal 0.0 - 2.0 [facility] Comment on above: Performed By: #### 2 03326 #### [facility],[address] [place] [address] 32334 CBC + DIFF Normal [facility] Comment on above: Result Comment: CBC- COMPLETE BLOOD COUNT Performed By: #### 2 51005 #### [facility],[address] [place] [address] 14194 EO # 0.28 x10EE3/UL Normal 0.00 - 0.50 [facility] Comment on above: Performed By: #### 2 74225 #### [facility],[address] [place] [address] 45726 Eosinophils/100 WBC (Bld) 4.1 % Normal 0.0 - 7.0 [facility] Comment on above: Performed By: #### 2 74307 #### [facility],[address] [place] [address] 09667 Erythrocyte distribution width (RBC) [Ratio] 15.6 % Normal 12.0 - 15.6 [facility] Comment on above: Performed By: #### 2 82690 #### [facility],[address] [place] [address] 25045 Hematocrit (Bld) [Volume fraction] 26.5 % Low 40.0 - 52.0 [facility] Comment on above: Performed By: #### 2 96022 #### [facility],[address] [place] [address] 30284 Hemoglobin (Bld) [Mass/Vol] 8.9 g/dL Low 13.0 - 17.5 [facility] Comment on above: Performed By: #### 2 25068 #### [facility],[address] [place] [address] 57577 Lymph # 1.35 x10EE3/UL Normal 0.80 - 2.80 [facility] Comment on above: Performed By: #### 2 62226 #### [facility],[address] [place] [address] 91878 Lymphocytes/100 WBC (Bld) 19.6 % Low 20.0 - 45.0 [facility] Comment on above: Performed By: #### 2 96618 #### [facility],[address] [place] [address] MANUAL DIFF N/A Normal [facility] Comment on above: Performed By: #### 2 40237 #### [facility],[address] [place] [address] MCH (RBC) [Entitic mass] 30 pg Normal 27 - 33 [facility] Comment on above: Performed By: #### 2 10016 #### [facility],[address] [place] [address] MCHC 34 X10 3 Normal 32 - 36 [facility] Comment on above: Performed By: #### 2 13337 #### [facility],[address] [place] [address] MCV (RBC) [Entitic vol] 91 fL Normal 81 - 98 [facility] Comment on above: Performed By: #### 2 11005 #### [facility],[address] [place] [address] [place] # 0.49 x10EE3/UL Normal 0.20 - 1.00 [facility] Comment on above: Performed By: #### 2 34733 #### [facility],[address] [place] [address] 62808 MONOS % 7.2 % Normal 0.0 - 10.0 [facility] Comment on above: Performed By: #### 2 54034 #### [facility],[address] [place] [address] 99425 Morphology [place] (Bld) [Interp] N/A Normal [facility] Comment on above: Performed By: #### 2 43820 #### [facility],[address] [place] [address] 03066 Neut # 4.76 x10EE3/UL Normal 1.50 - 7.10 [facility] Comment on above: Performed By: #### 2 84240 #### [facility],[address] [place] [address] 96352 Neutrophils/100 WBC (Bld) 68.9 % Normal 46.0 - 76.0 [facility] Comment on above: Performed By: #### 2 02798 #### [facility],[address] [place] [address] 87782 PLATELET 303 x10EE3/UL Normal 150 - 450 [facility] Comment on above: Performed By: #### 2 92238 #### [facility],[address] [place] [address] 62443 Platelet mean volume (Bld) [Entitic vol] 8.7 fL Normal 6.4 - 10.5 [facility] Comment on above: Result Comment: AUTO MATED DIFFERENTIAL Performed By: #### 2 44383 #### [place] [address] RBC 2.93 x 10EE6/UL Low 4.50 - 6.00 [facility] Comment on above: Performed By: #### 2 04621 #### [facility],[address] [place] [address] 35271 WBC 6.9 x 10EE3/UL Normal 4.5 - 10.8 [facility] Comment on above: Performed By: #### 2 84971 #### [facility],[address] [place], [place] [id number] CNPNon 03-20-2024 CNPN Normal [facility] BMP with eGFRon 03-17-2024 AGE 78 years Normal [facility] Comment on above: Performed By: #### 2 88823 #### [facility],[address] [place] [address] 26414 Anion gap [Moles/Vol] 15 mmol/L Normal 10 - 20 [facility] Comment on above: Performed By: #### 2 34894 #### [facility],[address] [place], [place] [phone] BMP with eGFR Normal [facility] Comment on above: Result Comment: BASI C METABOLIC PANEL Performed By: #### 2 79998 #### [facility],[address] [place], [place] [phone] Calcium [Mass/Vol] 8.1 mg/dL Low 8.5 - 10.1 [facility] Comment on above: Performed By: #### 2 08559 #### [facility],[address] [place], [place] [phone] Chloride [Moles/Vol] 108 mmol/L High 98 - 107 [facility] Comment on above: Performed By: #### 2 59035 #### [facility],[address] [place], [place] [phone] CO2 [Moles/Vol] 22.2 mmol/L Normal 21.0 - 32.0 [facility] Comment on above: Performed By: #### 2 33365 #### [facility],[address] [place], [place] [phone] Creatinine [Mass/Vol] 0.90 mg/dL Normal 0.70 - 1.30 [facility] Comment on above: Performed By: #### 2 86855 #### [facility],[address] [place], [place] [phone] GFR/1.73 sq M.predicted among non-blacks MDRD (S/P/Bld) [Vol rate/Area] mL/min/{1.73_m2} Normal 60 - 999 [facility] Comment on above: Performed By: #### 2 29151 #### [facility],[address] [place], [place] [id number] Result Comment: ACCO RDING TO THE NATIONAL KIDNEY DISEASE EDUCATION PROGRAM(NKDE), A NORMAL eGFR IS A VALUE GREATER THAN OR EQUAL TO 60 ML/MIN/1.73 SQ METERS. CHRONIC KIDNEY DISEASE: <60mL/MIN/1.73 SQ METERS KIDNEY FAILURE: <15mL/MIN/1.73 SQ METERS THIS TEST SHOULD ONLY BE USED FOR PATIENTS 18 YEARS OF AGE AND OLDER. Glucose [Mass/Vol] 88 mg/dL Normal 74 - 106 [facility] Comment on above: Performed By: #### 2 00200 #### [facility],[address] [place] [address] Potassium [Moles/Vol] 3.5 mmol/L Normal 3.5 - 5.1 [facility] Comment on above: Performed By: #### 2 49192 #### [facility],[address] [place] [address] Sodium [Moles/Vol] 142 mmol/L Normal 136 - 145 [facility] Comment on above: Performed By: #### 2 30278 #### [facility],[address] [place] [address] Urea nitrogen [Mass/Vol] 15 mg/dL Normal 7 - 18 [facility] Comment on above: Performed By: #### 2 60263 #### [facility],[address] [place] [address] CBC + DIFFon 03-17-2024 Baso # 0.02 x10EE3/UL Normal 0.00 - 0.10 [facility] Comment on above: Performed By: #### 2 72993 #### [facility],[address] [place] [address] Basophils/100 WBC (Bld) 0.5 % Normal 0.0 - 2.0 [facility] Comment on above: Performed By: #### 2 43049 #### [facility],[address] [place] [address] CBC + DIFF Normal [facility] Comment on above: Result Comment: CBC- COMPLETE BLOOD COUNT Performed By: #### 2 46309 #### [facility],[address] [place] [address] EO # 0.11 x10EE3/UL Normal 0.00 - 0.50 [facility] Comment on above: Performed By: #### 2 77704 #### [facility],[address] [place] [address] 09661 Eosinophils/100 WBC (Bld) 2.5 % Normal 0.0 - 7.0 [facility] Comment on above: Performed By: #### 2 45207 #### [facility],[address] [place] [address] 58914 Erythrocyte distribution width (RBC) [Ratio] 16.0 % High 12.0 - 15.6 [facility] Comment on above: Performed By: #### 2 60530 #### [facility],[address] [place] [address] 08719 Hematocrit (Bld) [Volume fraction] 26.3 % Low 40.0 - 52.0 [facility] Comment on above: Performed By: #### 2 89017 #### [facility],[address] [place] [address] Hemoglobin (Bld) [Mass/Vol] 8.4 g/dL Low 13.0 - 17.5 [facility] Comment on above: Performed By: #### 2 17692 #### [facility],[address] [place] [address] 70360 Lymph # 1.23 x10EE3/UL Normal 0.80 - 2.80 [facility] Comment on above: Performed By: #### 2 73988 #### [facility],[address] [place] [address] 66650 Lymphocytes/100 WBC (Bld) 28.9 % Normal 20.0 - 45.0 [facility] Comment on above: Performed By: #### 2 16257 #### [facility],[address] [place] [address] 48325 MANUAL DIFF N/A Normal [facility] Comment on above: Performed By: #### 2 02241 #### [facility],[address] [place] [address] 64400 MCH (RBC) [Entitic mass] 29 pg Normal 27 - 33 [facility] Comment on above: Performed By: #### 2 79080 #### [facility],[address] [place] [address] MCHC 32 X10 3 Normal 32 - 36 [facility] Comment on above: Performed By: #### 2 49054 #### [facility],[address] [place], [place] [address] MCV (RBC) [Entitic vol] 92 fL Normal 81 - 98 [facility] Comment on above: Performed By: #### 2 09841 #### [facility],[address] [place] [address] Buchanan # 0.40 x10EE3/UL Normal 0.20 - 1.00 [facility] Comment on above: Performed By: #### 2 39660 #### [facility],[address] [place] [address] MONOS % 9.5 % Normal 0.0 - 10.0 [facility] Comment on above: Performed By: #### 2 79716 #### [facility],[address] [place], [place] [address] Morphology Gurmeet (Bld) [Interp] N/A Normal [facility] Comment on above: Performed By: #### 2 26254 #### [facility],[address] [place] [address] Neut # 2.48 x10EE3/UL Normal 1.50 - 7.10 [facility] Comment on above: Performed By: #### 2 47923 #### [facility],[address] [place], [place] [address] Neutrophils/100 WBC (Bld) 58.6 % Normal 46.0 - 76.0 [facility] Comment on above: Performed By: #### 2 44416 #### [facility],[address] [place] [address] PLATELET 346 x10EE3/UL Normal 150 - 450 [facility] Comment on above: Performed By: #### 2 50252 #### [facility],[address] [place] [address] 38862 Platelet mean volume (Bld) [Entitic vol] 9.4 fL Normal 6.4 - 10.5 [facility] Comment on above: Result Comment: AUTO MATED DIFFERENTIAL Performed By: #### 2 36360 #### [facility],[address] [place] [address] 45744 RBC 2.87 x 10EE6/UL Low 4.50 - 6.00 [facility] Comment on above: Performed By: #### 2 22864 #### [facility],[address] [place] [address] 40707 WBC 4.2 x 10EE3/UL Low 4.5 - 10.8 [facility] Comment on above: Performed By: #### 2 39306 #### [facility],[address] [place] [address] 07666 CNPNon 03-14-2024 CNPN Normal [facility] BMP with eGFRon 03-13-2024 AGE 78 years Normal [facility] Comment on above: Performed By: #### 2 40300 #### [facility],[address] [place] [address] 19108 Anion gap [Moles/Vol] 12 mmol/L Normal 10 - 20 [facility] Comment on above: Performed By: #### 2 90147 #### [facility],[address] [place] [address] 53335 BMP with eGFR Normal [facility] Comment on above: Result Comment: BASI C METABOLIC PANEL Performed By: #### 2 20727 #### [facility],[address] [place] [address] 48909 Calcium [Mass/Vol] 8.4 mg/dL Low 8.5 - 10.1 [facility] Comment on above: Performed By: #### 2 68565 #### [facility],[address] [place] [address] 28325 Chloride [Moles/Vol] 107 mmol/L Normal 98 - 107 [facility] Comment on above: Performed By: #### 2 20104 #### [address] [address] CO2 [Moles/Vol] 25.5 mmol/L Normal 21.0 - 32.0 [facility] Comment on above: Performed By: #### 2 95250 #### [address] [address] Creatinine [Mass/Vol] 1.19 mg/dL Normal 0.70 - 1.30 [facility] Comment on above: Performed By: #### 2 64696 #### [address] [address] eGFR 59 ML/MINUTE Low 60 - 999 [facility] Comment on above: Performed By: #### 2 98361 #### [address] [address] GFR/1.73 sq M.predicted among non-blacks MDRD (S/P/Bld) [Vol rate/Area] mL/min/{1.73_m2} Normal 60 - 999 [facility] Comment on above: Result Comment: ACCO RDING TO THE NATIONAL KIDNEY DISEASE EDUCATION PROGRAM(NKDE), A NORMAL eGFR IS A VALUE GREATER THAN OR EQUAL TO 60 ML/MIN/1.73 SQ METERS. CHRONIC KIDNEY DISEASE: <60mL/MIN/1.73 SQ METERS KIDNEY FAILURE: <15mL/MIN/1.73 SQ METERS THIS TEST SHOULD ONLY BE USED FOR PATIENTS 18 YEARS OF AGE AND OLDER. Performed By: #### 2 76194 #### [address] [address] Glucose [Mass/Vol] 107 mg/dL High 74 - 106 [facility] Comment on above: Performed By: #### 2 23232 #### [facility],[address] [place] [address] 11195 Potassium [Moles/Vol] 4.6 mmol/L Normal 3.5 - 5.1 [facility] Comment on above: Performed By: #### 2 51417 #### [facility],[address] [place] [address] Sodium [Moles/Vol] 140 mmol/L Normal 136 - 145 [facility] Comment on above: Performed By: #### 2 32749 #### [facility],[address] [place] [address] Urea nitrogen [Mass/Vol] 28 mg/dL High 7 - 18 [facility] Comment on above: Performed By: #### 2 91000 #### [facility],[address] [place] [address] CBC + DIFFon 03-13-2024 Baso # 0.01 x10EE3/UL Normal 0.00 - 0.10 [facility] Comment on above: Performed By: #### 2 76376 #### [facility],[address] [place] [address] Basophils/100 WBC (Bld) 0.1 % Normal 0.0 - 2.0 [facility] Comment on above: Performed By: #### 2 78710 #### [facility],[address] [place] [address] CBC + DIFF Normal [facility] Comment on above: Result Comment: CBC- COMPLETE BLOOD COUNT Performed By: #### 2 04904 #### [facility],[address] [place] [address] EO # 0.04 x10EE3/UL Normal 0.00 - 0.50 [facility] Comment on above: Performed By: #### 2 20773 #### [place] [id number] Eosinophils/100 WBC (Bld) 0.5 % Normal 0.0 - 7.0 [facility] Comment on above: Performed By: #### 2 39398 #### [facility],[address] [place] [address] Erythrocyte distribution width (RBC) [Ratio] 16.5 % High 12.0 - 15.6 [facility] Comment on above: Performed By: #### 2 95719 #### [facility],[address] [place] [address] Hematocrit (Bld) [Volume fraction] 25.7 % Low 40.0 - 52.0 [facility] Comment on above: Performed By: #### 2 06282 #### [facility],[address] [place] [address] Hemoglobin (Bld) [Mass/Vol] 8.3 g/dL Low 13.0 - 17.5 [facility] Comment on above: Performed By: #### 2 35623 #### [facility],[address] [place] [address] Lymph # 0.26 x10EE3/UL Low 0.80 - 2.80 [facility] Comment on above: Performed By: #### 2 34526 #### [facility],[address] [place] [address] Lymphocytes/100 WBC (Bld) 3.1 % Low 20.0 - 45.0 [facility] Comment on above: Performed By: #### 2 90293 #### [facility],[address] [place] [address] MANUAL DIFF N/A Normal [facility] Comment on above: Performed By: #### 2 63012 #### [facility],[address] [place], [place] [address] MCH (RBC) [Entitic mass] 30 pg Normal 27 - 33 [facility] Comment on above: Performed By: #### 2 03190 #### [facility],[address] [place] [address] MCHC 33 X10 3 Normal 32 - 36 [facility] Comment on above: Performed By: #### 2 66614 #### [facility],[address] [place] [address] MCV (RBC) [Entitic vol] 93 fL Normal 81 - 98 [facility] Comment on above: Performed By: #### 2 16347 #### [facility],[address] [place] [address] [place]anan # 0.17 x10EE3/UL Low 0.20 - 1.00 [facility] Comment on above: Performed By: #### 2 93547 #### [facility],[address] [place] [address] MONOS % 2.0 % Normal 0.0 - 10.0 [facility] Comment on above: Performed By: #### 2 65763 #### [facility],[address] [place] [address] Morphology Gurmeet (Bld) [Interp] N/A Normal [facility] Comment on above: Performed By: #### 2 15153 #### [facility],[address] [place] [address] Neut # 7.99 x10EE3/UL High 1.50 - 7.10 [facility] Comment on above: Performed By: #### 2 21709 #### [facility],[address] [place], [place] [address] Neutrophils/100 WBC (Bld) 94.3 % High 46.0 - 76.0 [facility] Comment on above: Performed By: #### 2 27118 #### [facility],[address] [place] [address] PLATELET 418 x10EE3/UL Normal 150 - 450 [facility] Comment on above: Performed By: #### 2 36127 #### [facility],[address] [place], [place] [address] Platelet mean volume (Bld) [Entitic vol] 9.5 fL Normal 6.4 - 10.5 [facility] Comment on above: Result Comment: AUTO MATED DIFFERENTIAL Performed By: #### 2 47039 #### [facility],[address] [place] [address] 08168 RBC 2.77 x 10EE6/UL Low 4.50 - 6.00 [facility] Comment on above: Performed By: #### 2 37924 #### [facility],[address] [place] [address] 70521 WBC 8.5 x 10EE3/UL Normal 4.5 - 10.8 [facility] Comment on above: Performed By: #### 2 18627 #### [facility],[address] [place] [address] 86364 Basic metabolic 2000 panelon 03-10-2024 Anion gap [Moles/Vol] 13 mmol/L Normal 8-15 [facility] Comment on above: Order Comment: Speci men Type: BLOOD SPECIMENOrdering Facility: [facility] Address: [address] [place] [address] Performed By: #### 2 4321-2 ####[facility]ORYCLIA [id number] [place] [address] [place] Calcium [Mass/Vol] 9.0 mg/dL Normal 8.5-10.2 [facility] Comment on above: Order Comment: Speci men Type: BLOOD SPECIMENOrdering Facility: [facility] Address: [address] [place] [address] Performed By: #### 2 4321-2 ####[facility]ATORYCLIA [id number] [place] [address] [place] Chloride [Moles/Vol] 103 mmol/L Normal 98-107 [facility] Comment on above: Order Comment: Speci men Type: BLOOD SPECIMENOrdering Facility: [facility] Address: [address] [place] [address] Performed By: #### 2 4321-2 ####[facility]ATORYCLIA [id number] [place] [address] [place] CO2 [Moles/Vol] 24 mmol/L Normal 22-30 [facility] Comment on above: Order Comment: Speci men Type: BLOOD SPECIMENOrdering Facility: [facility] Address: [address] [place] [address] Performed By: #### 2 4321-2 ####[facility] [id number] [place] [id number] [facility] Creatinine [Mass/Vol] 0.93 mg/dL Normal 0.73-1.22 [facility] Comment on above: Order Comment: Speci men Type: BLOOD SPECIMENOrdering Facility: [facility] Address: [address] [place] [address] Performed By: #### 2 4321-2 ####[facility]ATORYCLIA [id number] [address] Creatinine and Glomerular filtration rate.predicted panel (S/P/Bld) 85 mL/min/1.73m??? Normal >=60 [facility] Comment on above: Order Comment: Speci men Type: BLOOD SPECIMENOrdering Facility: [facility] Address: [address] [place] [address] Result Comment: Teri mated Glomerular Filtration Rate (eGFR) is calculated using the 2020 CKD-EPI creatinine equation. This equation utilizes serum creatinine, sex, and age as parameters. The creatinine assay has traceable calibration to isotope dilution-mass spectrometry. Refer to KDIGO guidelines for clinical interpretation. In patients with unstable renal function, e.g. those with acute kidney injury, the eGFR may not accurately reflect actual GFR. Performed By: #### 2 4321-2 ####[facility]ATORYCLIA [id number] [address] STATES OF [facility] Glucose [Mass/Vol] 118 mg/dL High 74-99 [facility] Comment on above: Order Comment: Speci men Type: BLOOD SPECIMENOrdering Facility: [facility] Address: [address] [place] [address] Result Comment: The [place] [employer] (ADA) provides guidance for cutoff values for fasting glucose and random glucose. The ADA defines fasting as no caloric intake for at least 8 hours. Fasting plasma glucose results between 100 to 125 mg/dL indicate increased risk for diabetes (prediabetes).Fasting plasma glucose results greater than or equal to 126 mg/dL meet the criteria for diagnosis of diabetes. In the absence of unequivocal hyperglycemia, results should be confirmed by repeat testing. In a patient with classic symptoms of hyperglycemia or hyperglycemic crisis, random plasma glucose results greater than or equal to 200 mg/dL meet the criteria for diagnosis of diabetes.Reference: Standards of Medical Care in Diabetes 2016, [place] [employer]. Diabetes Care. 2016.39(Suppl 1). Performed By: #### 2 4321-2 ####[facility]ORATORYCLIA [id number] [address] OF [facility] Potassium [Moles/Vol] 4.2 mmol/L Normal 3.7-5.1 [facility] Comment on above: Order Comment: Rachid sanchez Type: BLOOD SPECIMENOrdering Facility: [facility] Address: [address] [place] [address] Performed By: #### 2 4321-2 ####[facility]ATORYCLIA [id number] [address] Sodium [Moles/Vol] 140 mmol/L Normal 136-144 [facility] Comment on above: Order Comment: Rachid sanchez Type: BLOOD SPECIMENOrdering Facility: [facility] Address: [address] [place] [address] Performed By: #### 2 4321-2 ####[facility]ORATORYCLIA [id number] [address] STATES [facility] Urea nitrogen [Mass/Vol] 18 mg/dL Normal 9-24 [facility] Comment on above: Order Comment: Zeeshani laura Type: BLOOD SPECIMENOrdering Facility: [facility] Address: [address] [place] [address] Performed By: #### 2 4321-2 ####[facility]ORATORYCLIA [id number] [place] [id number] [place] PRECI[place] CASE MANAGEMon 03-10-2024 CASE MANAGEM Normal [facility] CASE MANAGEM Normal [facility] CBC panel Auto (Bld)on 03-10 Erythrocyte distribution width (RBC) [Ratio] 16.2 % High 11.5-15.0 [facility] Comment on above: Order Comment: Speci men Type: BLOOD SPECIMENOrdering Facility: [facility] Address: [address] [place] [address] Performed By: #### 5 8410-2 ####[facility]ATORYCLIA [id number] [address] STATES OF [facility] Hematocrit (Bld) [Volume fraction] 26.4 % Low 39.0-51.0 [facility] Comment on above: Order Comment: Speci men Type: BLOOD SPECIMENOrdering Facility: [facility] Address: [address] [place] [address] Performed By: #### 5 8410-2 ####[facility]ATORYCLIA [id number] [address] STATES OF PRE[place] Hemoglobin (Bld) [Mass/Vol] 8.4 g/dL Low 13.0-17.0 [facility] Comment on above: Order Comment: Speci men Type: BLOOD SPECIMENOrdering Facility: [facility] Address: [address] [place] [address] Performed By: #### 5 8410-2 ####[facility]ATORYCLIA [id number] [address] [place] MCH (RBC) [Entitic mass] 30.1 pg Normal 26.0-34.0 [facility] Comment on above: Order Comment: Speci men Type: BLOOD SPECIMENOrdering Facility: [facility] Address: [address] [place] [address] Performed By: #### 5 8410-2 ####[facility]ATORYCLIA [id number] [address] [place] OF [place] MCHC (RBC) [Mass/Vol] 31.8 g/dL Normal 30.5-36.0 [facility] Comment on above: Order Comment: Speci men Type: BLOOD SPECIMENOrdering Facility: [facility] Address: [address] [place] [address] Performed By: #### 5 8410-2 ####[facility]ATORYCLIA [id number] [address] OF PRECI[place] MCV (RBC) [Entitic vol] 94.6 fL Normal 80.0-100.0 [facility] Comment on above: Order Comment: Speci men Type: BLOOD SPECIMENOrdering Facility: [facility] Address: [address] [place] [address] Performed By: #### 5 8410-2 ####[facility]ORATORYCLIA [id number] [address] STATES OF PRE[place] Nucleated RBC (Bld) [#/Vol] 0.02 10*3/uL High <0.01 [facility] Comment on above: Order Comment: Speci men Type: BLOOD SPECIMENOrdering Facility: [facility] Address: [address] [place] [address] Performed By: #### 5 8410-2 ####[facility]ATORYCLIA [id number] [address] STATES OF PRECIOUS Platelet mean volume (Bld) [Entitic vol] 10.6 fL Normal 9.0-12.7 [facility] Comment on above: Order Comment: Speci men Type: BLOOD SPECIMENOrdering Facility: [facility] Address: [address] [place] [address] Performed By: #### 5 8410-2 ####[facility]ORATORYCLIA [id number] [address] STATES OF PRE[place] Platelets (Bld) [#/Vol] 390 10*3/uL Normal 150-400 [facility] Comment on above: Order Comment: Speci men Type: BLOOD SPECIMENOrdering Facility: [facility] Address: [address] [place] [address] Performed By: #### 5 8410-2 ####[facility]ORATORYCLIA [id number] [address] [place] RBC (Bld) [#/Vol] 2.79 10*6/uL Low 4.20-6.00 [facility] Comment on above: Order Comment: Speci men Type: BLOOD SPECIMENOrdering Facility: [facility] Address: [address] [place] [address] Performed By: #### 5 8410-2 ####[facility]ORATORYCLIA [id number] [place] [address] [place] WBC (Bld) [#/Vol] 8.68 10*3/uL Normal 3.70-11.00 [facility] Comment on above: Order Comment: Speci men Type: BLOOD SPECIMENOrdering Facility: [facility] Address: [address] [place] [address] Performed By: #### 5 8410-2 ####[facility]ATORYCLIA [id number] [address] STATES OF [place] CNDSon 03-10-2024 CNDS Normal [facility] NURSING PROGon 03-10-2024 NURSING PROG Normal [facility] Basic metabolic 2000 panelon 03-09-2024 Anion gap [Moles/Vol] 12 mmol/L Normal 8-15 [facility] Comment on above: Order Comment: Speci men Type: BLOOD SPECIMENOrdering Facility: [facility] Address: [address] [place] [address] Performed By: #### 2 4321-2 ####[facility]ATORYCLIA [id number] [place] [address] [place] Calcium [Mass/Vol] 9.0 mg/dL Normal 8.5-10.2 [facility] Comment on above: Order Comment: Speci men Type: BLOOD SPECIMENOrdering Facility: [facility] Address: [address] [place] [address] Performed By: #### 2 4321-2 ####[facility]ATORYCLIA [id number] [place] [address] [place] Chloride [Moles/Vol] 102 mmol/L Normal 98-107 [facility] Comment on above: Order Comment: Speci men Type: BLOOD SPECIMENOrdering Facility: [facility] Address: [address] [place] [address] Performed By: #### 2 4321-2 ####[facility]ORATORYCLIA [id number] [address] STATES [place] CO2 [Moles/Vol] 22 mmol/L Normal 22-30 [facility] Comment on above: Order Comment: Speci men Type: BLOOD SPECIMENOrdering Facility: [facility] Address: [address] [place] [address] Performed By: #### 2 4321-2 ####[facility]ORATORYCLIA [id number] [address] [place] Creatinine [Mass/Vol] 0.92 mg/dL Normal 0.73-1.22 [facility] Comment on above: Order Comment: Speci men Type: BLOOD SPECIMENOrdering Facility: [facility] Address: [address] [place] [address] Performed By: #### 2 4321-2 ####[facility]ATORYCLIA [id number] [address] Creatinine and Glomerular filtration rate.predicted panel (S/P/Bld) 86 mL/min/1.73m??? Normal >=60 [facility] Comment on above: Order Comment: Speci men Type: BLOOD SPECIMENOrdering Facility: [facility] Address: [address] [place] [address] Result Comment: Teri mated Glomerular Filtration Rate (eGFR) is calculated using the 2020 CKD-EPI creatinine equation. This equation utilizes serum creatinine, sex, and age as parameters. The creatinine assay has traceable calibration to isotope dilution-mass spectrometry. Refer to KDIGO guidelines for clinical interpretation. In patients with unstable renal function, e.g. those with acute kidney injury, the eGFR may not accurately reflect actual GFR. Performed By: #### 2 4321-2 ####[facility]ATORYCLIA [id number] [address] [place] Glucose [Mass/Vol] 104 mg/dL High 74-99 [facility] Comment on above: Order Comment: Speci men Type: BLOOD SPECIMENOrdering Facility: [facility] Address: [address] [place] [address] Result Comment: The [place] [employer] (ADA) provides guidance for cutoff values for fasting glucose and random glucose. The ADA defines fasting as no caloric intake for at least 8 hours. Fasting plasma glucose results between 100 to 125 mg/dL indicate increased risk for diabetes (prediabetes).Fasting plasma glucose results greater than or equal to 126 mg/dL meet the criteria for diagnosis of diabetes. In the absence of unequivocal hyperglycemia, results should be confirmed by repeat testing. In a patient with classic symptoms of hyperglycemia or hyperglycemic crisis, random plasma glucose results greater than or equal to 200 mg/dL meet the criteria for diagnosis of diabetes.Reference: Standards of Medical Care in Diabetes 2016, [place] [employer]. Diabetes Care. 2016.39(Suppl 1). Performed By: #### 2 4321-2 ####[facility]ORATORYCLIA [id number] [place] [address] [place] Potassium [Moles/Vol] 4.4 mmol/L Normal 3.7-5.1 [facility] Comment on above: Order Comment: Rachid sanchez Type: BLOOD SPECIMENOrdering Facility: [facility] Address: [address] [place] [address] Performed By: #### 2 4321-2 ####[facility]ATORYCLIA [id number] [place] [address] [place] Sodium [Moles/Vol] 136 mmol/L Normal 136-144 [facility] Comment on above: Order Comment: Rachid sanchez Type: BLOOD SPECIMENOrdering Facility: [facility] Address: [address] [place] [address] Performed By: #### 2 4321-2 ####[facility]ATORYCLIA [id number] [address] [place] Urea nitrogen [Mass/Vol] 23 mg/dL Normal 9-24 [facility] Comment on above: Order Comment: Rachid sanchez Type: BLOOD SPECIMENOrdering Facility: [facility] Address: [facility] [place] [address] Performed By: #### 2 4321-2 ####[facility]ATORYCLIA [id number] [address] [place] CBC panel Auto (Bld)on 03-09 Erythrocyte distribution width (RBC) [Ratio] 15.8 % High 11.5-15.0 [facility] Comment on above: Order Comment: Speci men Type: BLOOD SPECIMENOrdering Facility: [facility] Address: [address] [place] [address] Performed By: #### 5 8410-2 ####[facility] LABORATORYCLIA [id number] [address] OF [facility] Hematocrit (Bld) [Volume fraction] 27.8 % Low 39.0-51.0 [facility] Comment on above: Order Comment: Speci men Type: BLOOD SPECIMENOrdering Facility: [facility] Address: [address] [place] [address] Performed By: #### 5 8410-2 ####[facility]ORATORYCLIA [id number] [address] STATES OF [facility] Hemoglobin (Bld) [Mass/Vol] 8.8 g/dL Low 13.0-17.0 [facility] Comment on above: Order Comment: Speci men Type: BLOOD SPECIMENOrdering Facility: [facility] Address: [address] [place] [address] Performed By: #### 5 8410-2 ####[facility]ORATORYCLIA [id number] [address] STATES OF [place] MCH (RBC) [Entitic mass] 30.1 pg Normal 26.0-34.0 [facility] Comment on above: Order Comment: Speci men Type: BLOOD SPECIMENOrdering Facility: [facility] Address: [address] [place] [address] Performed By: #### 5 8410-2 ####[facility]ORATORYCLIA [id number] [address] [place] MCHC (RBC) [Mass/Vol] 31.7 g/dL Normal 30.5-36.0 [facility] Comment on above: Order Comment: Speci men Type: BLOOD SPECIMENOrdering Facility: [facility] Address: [address] [place] [address] Performed By: #### 5 8410-2 ####[facility] LABORATORYCLIA [id number] [address] STATES [facility] MCV (RBC) [Entitic vol] 95.2 fL Normal 80.0-100.0 [facility] Comment on above: Order Comment: Speci men Type: BLOOD SPECIMENOrdering Facility: [facility] Address: [address] [place] [address] Performed By: #### 5 8410-2 ####[facility]ORATORYCLIA [id number] [address] OF PRECIOUS Nucleated RBC (Bld) [#/Vol] 10*3/uL Normal <0.01 [facility] Comment on above: Order Comment: Speci men Type: BLOOD SPECIMENOrdering Facility: [facility] Address: [address] [place] [address] Performed By: #### 5 8410-2 ####[facility]ORATORYCLIA [id number] [address] Platelet mean volume (Bld) [Entitic vol] 11.1 fL Normal 9.0-12.7 [facility] Comment on above: Order Comment: Speci men Type: BLOOD SPECIMENOrdering Facility: [facility] Address: [address] [place] [address] Performed By: #### 5 8410-2 ####[facility]ORATORYCLIA [id number] [address] Platelets (Bld) [#/Vol] 365 10*3/uL Normal 150-400 [facility] Comment on above: Order Comment: Speci men Type: BLOOD SPECIMENOrdering Facility: [facility] Address: [address] [place] [address] Performed By: #### 5 8410-2 ####[facility]ORATORYCLIA [id number] [address] OF PRECIOUS RBC (Bld) [#/Vol] 2.92 10*6/uL Low 4.20-6.00 [facility] Comment on above: Order Comment: Speci men Type: BLOOD SPECIMENOrdering Facility: [facility] Address: [address] [place] [address] Performed By: #### 5 8410-2 ####[facility]ORATORYCLIA [id number] [place] [id number] [place] WBC (Bld) [#/Vol] 9.54 10*3/uL Normal 3.70-11.00 [facility] Comment on above: Order Comment: Speci men Type: BLOOD SPECIMENOrdering Facility: [facility] Address: [address] [place] [address] Performed By: #### 5 8410-2 ####[facility]ORATORYCLIA [id number] [address] OF PRECIOUS THERAPY NTon 03-09-2024 THERAPY NT Normal [facility] XR CHEST 1V FRONTALon 2024 XR CHEST 1V FRONTAL Normal [facility] Basic metabolic 2000 panelon 03-08-2024 Anion gap [Moles/Vol] 11 mmol/L Normal 8-15 [facility] Comment on above: Order Comment: Speci men Type: BLOOD SPECIMENOrdering Facility: [facility] Address: [address] [place] [address] Performed By: #### 2 4321-2 ####[facility]ORATORYCLIA [id number] [place] [address] [place] Calcium [Mass/Vol] 9.0 mg/dL Normal 8.5-10.2 [facility] Comment on above: Order Comment: Speci men Type: BLOOD SPECIMENOrdering Facility: [facility] Address: [address] [place] [address] Performed By: #### 2 4321-2 ####[facility]ORATORYCLIA [id number] [place] [address] [place] Chloride [Moles/Vol] 105 mmol/L Normal 98-107 [facility] Comment on above: Order Comment: Speci men Type: BLOOD SPECIMENOrdering Facility: [facility] Address: [address] [place] [address] Performed By: #### 2 4321-2 ####[facility]ORATORYCLIA [id number] [address] STATES [facility] CO2 [Moles/Vol] 24 mmol/L Normal 22-30 [facility] Comment on above: Order Comment: Speci men Type: BLOOD SPECIMENOrdering Facility: [facility] Address: [address] [place] [address] Performed By: #### 2 4321-2 ####[facility]ORATORYCLIA [id number] [address] STATES OF [facility] Creatinine [Mass/Vol] 1.00 mg/dL Normal 0.73-1.22 [facility] Comment on above: Order Comment: Speci men Type: BLOOD SPECIMENOrdering Facility: [facility] Address: [address] [place] [address] Performed By: #### 2 4321-2 ####[facility]CLIA [id number] [address] Creatinine and Glomerular filtration rate.predicted panel (S/P/Bld) 78 mL/min/1.73m??? Normal >=60 [facility] Comment on above: Order Comment: Speci men Type: BLOOD SPECIMENOrdering Facility: [facility] Address: [address] [place] [address] Result Comment: Teri mated Glomerular Filtration Rate (eGFR) is calculated using the 2020 CKD-EPI creatinine equation. This equation utilizes serum creatinine, sex, and age as parameters. The creatinine assay has traceable calibration to isotope dilution-mass spectrometry. Refer to KDIGO guidelines for clinical interpretation. In patients with unstable renal function, e.g. those with acute kidney injury, the eGFR may not accurately reflect actual GFR. Performed By: #### 2 4321-2 ####[facility]ORATORYCLIA [id number] [address] Glucose [Mass/Vol] 110 mg/dL High 74-99 [facility] Comment on above: Order Comment: Speci men Type: BLOOD SPECIMENOrdering Facility: [facility] Address: [address] [place] [address] Result Comment: The [place] [employer] (ADA) provides guidance for cutoff values for fasting glucose and random glucose. The ADA defines fasting as no caloric intake for at least 8 hours. Fasting plasma glucose results between 100 to 125 mg/dL indicate increased risk for diabetes (prediabetes).Fasting plasma glucose results greater than or equal to 126 mg/dL meet the criteria for diagnosis of diabetes. In the absence of unequivocal hyperglycemia, results should be confirmed by repeat testing. In a patient with classic symptoms of hyperglycemia or hyperglycemic crisis, random plasma glucose results greater than or equal to 200 mg/dL meet the criteria for diagnosis of diabetes.Reference: Standards of Medical Care in Diabetes 2016, [place] [employer]. Diabetes Care. 2016.39(Suppl 1). Performed By: #### 2 4321-2 ####[facility]ORATORYCLIA [id number] [place] [address] [place] Potassium [Moles/Vol] 4.3 mmol/L Normal 3.7-5.1 [facility] Comment on above: Order Comment: Speci men Type: BLOOD SPECIMENOrdering Facility: [facility] Address: [address] [place] [address] Performed By: #### 2 4321-2 ####[facility]ORATORYCLIA [id number] [place] [address] [place] Sodium [Moles/Vol] 140 mmol/L Normal 136-144 [facility] Comment on above: Order Comment: Speci men Type: BLOOD SPECIMENOrdering Facility: [facility] Address: [address] [place] [address] Performed By: #### 2 4321-2 ####[facility]ORATORYCLIA [id number] [place] [address] [place] Urea nitrogen [Mass/Vol] 22 mg/dL Normal 9-24 [facility] Comment on above: Order Comment: Speci men Type: BLOOD SPECIMENOrdering Facility: [facility] Address: [address] [place] [address] Performed By: #### 2 4321-2 ####[facility]ORATORYCLIA [id number] [address] CBC panel Auto (Bld)on 03-08 Erythrocyte distribution width (RBC) [Ratio] 15.7 % High 11.5-15.0 [facility] Comment on above: Order Comment: Speci men Type: BLOOD SPECIMENOrdering Facility: [facility] Address: [address] [place] [address] Performed By: #### 5 8410-2 ####[facility]ATORYCLIA [id number] [address] Hematocrit (Bld) [Volume fraction] 27.3 % Low 39.0-51.0 [facility] Comment on above: Order Comment: Speci men Type: BLOOD SPECIMENOrdering Facility: [facility] Address: [address] [place] [address] Performed By: #### 5 8410-2 ####[facility]ORATORYCLIA [id number] [address] Hemoglobin (Bld) [Mass/Vol] 8.8 g/dL Low 13.0-17.0 [facility] Comment on above: Order Comment: Speci men Type: BLOOD SPECIMENOrdering Facility: [facility] Address: [address] [place] [address] Performed By: #### 5 8410-2 ####[facility]ORATORYCLIA [id number] [address] MCH (RBC) [Entitic mass] 30.2 pg Normal 26.0-34.0 [facility] Comment on above: Order Comment: Speci men Type: BLOOD SPECIMENOrdering Facility: [facility] Address: [address] [place] [address] Performed By: #### 5 8410-2 ####[facility]ATORYCLIA [id number] [address] MCHC (RBC) [Mass/Vol] 32.2 g/dL Normal 30.5-36.0 [facility] Comment on above: Order Comment: Speci men Type: BLOOD SPECIMENOrdering Facility: [facility] Address: [address] [place] [address] Performed By: #### 5 8410-2 ####[facility]ORATORYCLIA [id number] [address] MCV (RBC) [Entitic vol] 93.8 fL Normal 80.0-100.0 [facility] Comment on above: Order Comment: Speci men Type: BLOOD SPECIMENOrdering Facility: [facility] Address: [address] [place] [address] Performed By: #### 5 8410-2 ####[facility]ORATORYCLIA [id number] [address] Nucleated RBC (Bld) [#/Vol] 10*3/uL Normal <0.01 [facility] Comment on above: Order Comment: Speci men Type: BLOOD SPECIMENOrdering Facility: [facility] Address: [address] [place] [address] Performed By: #### 5 8410-2 ####[facility]ATORYCLIA [id number] [address] Platelet mean volume (Bld) [Entitic vol] 10.8 fL Normal 9.0-12.7 [facility] Comment on above: Order Comment: Speci men Type: BLOOD SPECIMENOrdering Facility: [facility] Address: [address] [place] [address] Performed By: #### 5 8410-2 ####[facility]ATORYCLIA [id number] [address] Platelets (Bld) [#/Vol] 366 10*3/uL Normal 150-400 [facility] Comment on above: Order Comment: Speci men Type: BLOOD SPECIMENOrdering Facility: [facility] Address: [address] [place] [address] Performed By: #### 5 8410-2 ####[facility]ORATORYCLIA [id number] [address] STATES OF [place] RBC (Bld) [#/Vol] 2.91 10*6/uL Low 4.20-6.00 [facility] Comment on above: Order Comment: Speci men Type: BLOOD SPECIMENOrdering Facility: [facility] Address: [address] [place] [address] Performed By: #### 5 8410-2 ####[facility]ORATORYCLIA [id number] [place] [address] [place] WBC (Bld) [#/Vol] 8.78 10*3/uL Normal 3.70-11.00 [facility] Comment on above: Order Comment: Speci men Type: BLOOD SPECIMENOrdering Facility: [facility] Address: [address] [place] [address] Performed By: #### 5 8410-2 ####[facility]ORATORYCLIA [id number] [place] [address] [place] Basic metabolic 2000 panelon 03-07-2024 Anion gap [Moles/Vol] 12 mmol/L Normal 8-15 [facility] Comment on above: Order Comment: Speci men Type: BLOOD SPECIMENOrdering Facility: [facility] Address: [address] [place] [address] Performed By: #### 2 4321-2 ####[facility]ATORYCLIA [id number] [place] [address] [place] Calcium [Mass/Vol] 8.9 mg/dL Normal 8.5-10.2 [facility] Comment on above: Order Comment: Speci men Type: BLOOD SPECIMENOrdering Facility: [facility] Address: [address] [place] [address] Performed By: #### 2 4321-2 ####[facility]ATORYCLIA [id number] [place] [address] [place] Chloride [Moles/Vol] 98 mmol/L Normal 98-107 [facility] Comment on above: Order Comment: Speci men Type: BLOOD SPECIMENOrdering Facility: [facility] Address: [address] [place] [address] Performed By: #### 2 4321-2 ####[facility]ORATORYCLIA [id number] [address] STATES OF [place] CO2 [Moles/Vol] 23 mmol/L Normal 22-30 [facility] Comment on above: Order Comment: Speci men Type: BLOOD SPECIMENOrdering Facility: [facility] Address: [address] [place] [address] Performed By: #### 2 4321-2 ####[facility]CLIA [id number] [address] Creatinine [Mass/Vol] 0.88 mg/dL Normal 0.73-1.22 [facility] Comment on above: Order Comment: Speci men Type: BLOOD SPECIMENOrdering Facility: [facility] Address: [address] [place] [address] Performed By: #### 2 4321-2 ####[facility] HOSPITALIA [id number] [address] Creatinine and Glomerular filtration rate.predicted panel (S/P/Bld) 89 mL/min/1.73m??? Normal >=60 [facility] Comment on above: Order Comment: Speci men Type: BLOOD SPECIMENOrdering Facility: [facility] Address: [address] [place] [address] Result Comment: Teri mated Glomerular Filtration Rate (eGFR) is calculated using the 2020 CKD-EPI creatinine equation. This equation utilizes serum creatinine, sex, and age as parameters. The creatinine assay has traceable calibration to isotope dilution-mass spectrometry. Refer to KDIGO guidelines for clinical interpretation. In patients with unstable renal function, e.g. those with acute kidney injury, the eGFR may not accurately reflect actual GFR. Performed By: #### 2 4321-2 ####[facility]ORATORYCLIA [id number] [address] OF [facility] Glucose [Mass/Vol] 108 mg/dL High 74-99 [facility] Comment on above: Order Comment: Speci men Type: BLOOD SPECIMENOrdering Facility: [facility] Address: [address] [place] [address] Result Comment: The [place] Diabetes [employer] (ADA) provides guidance for cutoff values for fasting glucose and random glucose. The ADA defines fasting as no caloric intake for at least 8 hours. Fasting plasma glucose results between 100 to 125 mg/dL indicate increased risk for diabetes (prediabetes).Fasting plasma glucose results greater than or equal to 126 mg/dL meet the criteria for diagnosis of diabetes. In the absence of unequivocal hyperglycemia, results should be confirmed by repeat testing. In a patient with classic symptoms of hyperglycemia or hyperglycemic crisis, random plasma glucose results greater than or equal to 200 mg/dL meet the criteria for diagnosis of diabetes.Reference: Standards of Medical Care in Diabetes 2016, [place] [employer]. Diabetes Care. 2016.39(Suppl 1). Performed By: #### 2 4321-2 ####[facility]ATORYCLIA [id number] [address] OF [facility] Potassium [Moles/Vol] 4.0 mmol/L Normal 3.7-5.1 [facility] Comment on above: Order Comment: Speci men Type: BLOOD SPECIMENOrdering Facility: [facility] Address: [address] [place] [address] Performed By: #### 2 4321-2 ####[facility]ATORYCLIA [id number] [address] Sodium [Moles/Vol] 133 mmol/L Low 136-144 [facility] Comment on above: Order Comment: Speci men Type: BLOOD SPECIMENOrdering Facility: [facility] Address: [address] [place] [address] Performed By: #### 2 4321-2 ####[facility]ORATORYCLIA [id number] [place] [id number] [place] [facility] Urea nitrogen [Mass/Vol] 16 mg/dL Normal 9-24 [facility] Comment on above: Order Comment: Speci men Type: BLOOD SPECIMENOrdering Facility: [facility] Address: [address] [place] [address] Performed By: #### 2 4321-2 ####[facility]ATORYCLIA [id number] [address] OF PRECIOUS CASE MANAGEMon 03-07-2024 CASE MANAGEM Normal [facility] CBC panel Auto (Bld)on 03-07 Erythrocyte distribution width (RBC) [Ratio] 15.4 % High 11.5-15.0 [facility] Comment on above: Order Comment: Speci men Type: BLOOD SPECIMENOrdering Facility: [facility] Address: [address] [place] [address] Performed By: #### 5 8410-2 ####[facility]ATORYCLIA [id number] [address] OF [facility] Hematocrit (Bld) [Volume fraction] 28.1 % Low 39.0-51.0 [facility] Comment on above: Order Comment: Speci men Type: BLOOD SPECIMENOrdering Facility: [facility] Address: [address] [place] [address] Performed By: #### 5 8410-2 ####[facility]ATORYCLIA [id number] [address] STATES OF [facility] Hemoglobin (Bld) [Mass/Vol] 9.1 g/dL Low 13.0-17.0 [facility] Comment on above: Order Comment: Speci men Type: BLOOD SPECIMENOrdering Facility: [facility] Address: [address] [place] [address] Performed By: #### 5 8410-2 ####[facility]ATORYCLIA [id number] [address] [place] MCH (RBC) [Entitic mass] 29.8 pg Normal 26.0-34.0 [facility] Comment on above: Order Comment: Speci men Type: BLOOD SPECIMENOrdering Facility: [facility] Address: [address] [place] [address] Performed By: #### 5 8410-2 ####[facility]ATORYCLIA [id number] [address] [place] MCHC (RBC) [Mass/Vol] 32.4 g/dL Normal 30.5-36.0 [facility] Comment on above: Order Comment: Speci men Type: BLOOD SPECIMENOrdering Facility: [facility] Address: [address] [place] [address] Performed By: #### 5 8410-2 ####[facility]ATORYCLIA [id number] [address] MCV (RBC) [Entitic vol] 92.1 fL Normal 80.0-100.0 [facility] Comment on above: Order Comment: Speci men Type: BLOOD SPECIMENOrdering Facility: [facility] Address: [address] [place] [address] Performed By: #### 5 8410-2 ####[facility]ATORYCLIA [id number] [address] OF PRECI[place] Nucleated RBC (Bld) [#/Vol] 10*3/uL Normal <0.01 [facility] Comment on above: Order Comment: Speci men Type: BLOOD SPECIMENOrdering Facility: [facility] Address: [address] [place] [address] Performed By: #### 5 8410-2 ####[facility]ATORYCLIA [id number] [address] [place] OF PRE[place]OUS Platelet mean volume (Bld) [Entitic vol] 10.9 fL Normal 9.0-12.7 [facility] Comment on above: Order Comment: Speci men Type: BLOOD SPECIMENOrdering Facility: [facility] Address: [address] [place] [address] Performed By: #### 5 8410-2 ####[facility]ATORYCLIA [id number] [address] OF PRECIOUS Platelets (Bld) [#/Vol] 372 10*3/uL Normal 150-400 [facility] Comment on above: Order Comment: Speci men Type: BLOOD SPECIMENOrdering Facility: [facility] Address: [address] [place] [address] Performed By: #### 5 8410-2 ####[facility]ATORYCLIA [id number] [address] [place] RBC (Bld) [#/Vol] 3.05 10*6/uL Low 4.20-6.00 [facility] Comment on above: Order Comment: Speci men Type: BLOOD SPECIMENOrdering Facility: [facility] Address: [address] [place] [address] Performed By: #### 5 8410-2 ####[facility]ATORYCLIA [id number] [place] [address] [place] WBC (Bld) [#/Vol] 10.19 10*3/uL Normal 3.70-11.00 [facility] Comment on above: Order Comment: Speci men Type: BLOOD SPECIMENOrdering Facility: [facility] Address: [address] [place] [address] Performed By: #### 5 8410-2 ####[facility]ATORYCLIA [id number] [address] STATES OF PRECIOUS NUTRITIONon 03-07-2024 NUTRITION Normal [facility] THERAPY NTon 03-07-2024 THERAPY NT Normal [facility] THERAPY NT Normal [facility] Basic metabolic 2000 panelon 03-06-2024 Anion gap [Moles/Vol] 12 mmol/L Normal 8-15 [facility] Comment on above: Order Comment: Speci men Type: BLOOD SPECIMENOrdering Facility: [facility] Address: [address] [place] [address] Performed By: #### 2 4321-2, 26999-5 ####[facility]ATORYCLIA [id number] [place] [id number] [place] Calcium [Mass/Vol] 8.5 mg/dL Normal 8.5-10.2 [facility] Comment on above: Order Comment: Speci men Type: BLOOD SPECIMENOrdering Facility: [facility] Address: [address] [place] [address] Performed By: #### 2 4321-2, ####[facility]ATORYCLIA [id number] [place] [id number] [place] Chloride [Moles/Vol] 103 mmol/L Normal 98-107 [facility] Comment on above: Order Comment: Speci men Type: BLOOD SPECIMENOrdering Facility: [facility] Address: [address] [place] [address] Performed By: #### 2 4322, ####[facility]ATORYCLIA [id number] [address] OF [facility] CO2 [Moles/Vol] 22 mmol/L Normal 22-30 [facility] Comment on above: Order Comment: Speci men Type: BLOOD SPECIMENOrdering Facility: [facility] Address: [address] [place] [address] Performed By: #### 2 4320-03, ####[facility] [id number] [address] Creatinine [Mass/Vol] 0.88 mg/dL Normal 0.73-1.22 [facility] Comment on above: Order Comment: Speci men Type: BLOOD SPECIMENOrdering Facility: [facility] Address: [address] [place] [address] Performed By: #### 2 4320-03, ####[facility]CLIA [id number] [address] Creatinine and Glomerular filtration rate.predicted panel (S/P/Bld) 89 mL/min/1.73m??? Normal >=60 [facility] Comment on above: Order Comment: Speci men Type: BLOOD SPECIMENOrdering Facility: [facility] Address: [address] [place] [address] Result Comment: Teri mated Glomerular Filtration Rate (eGFR) is calculated using the 2020 CKD-EPI creatinine equation. This equation utilizes serum creatinine, sex, and age as parameters. The creatinine assay has traceable calibration to isotope dilution-mass spectrometry. Refer to KDIGO guidelines for clinical interpretation. In patients with unstable renal function, e.g. those with acute kidney injury, the eGFR may not accurately reflect actual GFR. Performed By: #### 2 432-2, ####[facility]ATORYCLIA [id number] [place] [address] [place] Glucose [Mass/Vol] 114 mg/dL High 74-99 [facility] Comment on above: Order Comment: Rachid sanchez Type: BLOOD SPECIMENOrdering Facility: [facility] Address: [address] [place] [address] Result Comment: The [place] [employer] (ADA) provides guidance for cutoff values for fasting glucose and random glucose. The ADA defines fasting as no caloric intake for at least 8 hours. Fasting plasma glucose results between 100 to 125 mg/dL indicate increased risk for diabetes (prediabetes).Fasting plasma glucose results greater than or equal to 126 mg/dL meet the criteria for diagnosis of diabetes. In the absence of unequivocal hyperglycemia, results should be confirmed by repeat testing. In a patient with classic symptoms of hyperglycemia or hyperglycemic crisis, random plasma glucose results greater than or equal to 200 mg/dL meet the criteria for diagnosis of diabetes.Reference: Standards of Medical Care in Diabetes 2016, [place] [employer]. Diabetes Care. 2016.39(Suppl 1). Performed By: #### 2 43202-20, ####[facility]ORATORYCLIA [id number] [place] [address] [place] Potassium [Moles/Vol] 4.1 mmol/L Normal 3.7-5.1 [facility] Comment on above: Order Comment: Rachid sanchez Type: BLOOD SPECIMENOrdering Facility: [facility] Address: [address] [place] [address] Performed By: #### 2 43202-20, ####[facility]ATORYCLIA [id number] [place] [address] [place] Sodium [Moles/Vol] 137 mmol/L Normal 136-144 [facility] Comment on above: Order Comment: Rachid sanchez Type: BLOOD SPECIMENOrdering Facility: [facility] Address: [address] [place] [address] Performed By: #### 2 43202-20, ####[facility]ORATORYCLIA [id number] [place] [address] [place] Urea nitrogen [Mass/Vol] 17 mg/dL Normal 9-24 [facility] Comment on above: Order Comment: Speci men Type: BLOOD SPECIMENOrdering Facility: [facility] Address: [address] [place] [address] Performed By: #### 2 4321-2, 22479-6 ####[facility]ATORYCLIA [id number] [address] [place] CASE MANAGEMon 03-06-2024 CASE MANAGEM Normal [facility] CASE MANAGEM Normal [facility] CBC panel Auto (Bld)on 03-06 Erythrocyte distribution width (RBC) [Ratio] 14.7 % Normal 11.5-15.0 [facility] Comment on above: Order Comment: Speci men Type: BLOOD SPECIMENOrdering Facility: [facility] Address: [address] [place] [address] Performed By: #### 5 8410-2 ####[facility]ORATORYCLIA [id number] [address] [place] Hematocrit (Bld) [Volume fraction] 25.3 % Low 39.0-51.0 [facility] Comment on above: Order Comment: Speci men Type: BLOOD SPECIMENOrdering Facility: [facility] Address: [address] [place] [address] Performed By: #### 5 8410-2 ####[facility]ATORYCLIA [id number] [place] [address] [place] Hemoglobin (Bld) [Mass/Vol] 8.2 g/dL Low 13.0-17.0 [facility] Comment on above: Order Comment: Speci men Type: BLOOD SPECIMENOrdering Facility: [facility] Address: [address] [place] [address] Performed By: #### 5 8410-2 ####[facility]ORATORYCLIA [id number] [address] [place] MCH (RBC) [Entitic mass] 29.7 pg Normal 26.0-34.0 [facility] Comment on above: Order Comment: Speci men Type: BLOOD SPECIMENOrdering Facility: [facility] Address: [address] [place] [address] Performed By: #### 5 8410-2 ####[facility]ATORYCLIA [id number] [address] [place] MCHC (RBC) [Mass/Vol] 32.4 g/dL Normal 30.5-36.0 [facility] Comment on above: Order Comment: Speci men Type: BLOOD SPECIMENOrdering Facility: [facility] Address: [address] [place] [address] Performed By: #### 5 8410-2 ####[facility]ATORYCLIA [id number] [address] [place] MCV (RBC) [Entitic vol] 91.7 fL Normal 80.0-100.0 [facility] Comment on above: Order Comment: Speci men Type: BLOOD SPECIMENOrdering Facility: [facility] Address: [address] [place] [address] Performed By: #### 5 8410-2 ####[facility]ORATORYCLIA [id number] [address] OF [facility] Nucleated RBC (Bld) [#/Vol] 0.02 10*3/uL High <0.01 [facility] Comment on above: Order Comment: Speci men Type: BLOOD SPECIMENOrdering Facility: [facility] Address: [address] [place] [address] Performed By: #### 5 8410-2 ####[facility]ATORYCLIA [id number] [address] STATES [facility] Platelet mean volume (Bld) [Entitic vol] 11.3 fL Normal 9.0-12.7 [facility] Comment on above: Order Comment: Speci men Type: BLOOD SPECIMENOrdering Facility: [facility] Address: [address] [place] [address] Performed By: #### 5 8410-2 ####[facility]ATORYCLIA [id number] [address] OF PRECIOUS Platelets (Bld) [#/Vol] 313 10*3/uL Normal 150-400 [facility] Comment on above: Order Comment: Speci men Type: BLOOD SPECIMENOrdering Facility: [facility] Address: [address] [place] [address] Performed By: #### 5 8410-2 ####[facility]ATORYCLIA [id number] [place] [address] [place] [facility] RBC (Bld) [#/Vol] 2.76 10*6/uL Low 4.20-6.00 [facility] Comment on above: Order Comment: Speci men Type: BLOOD SPECIMENOrdering Facility: [facility] Address: [address] [place] [address] Performed By: #### 5 8410-2 ####[facility]ORATORYCLIA [id number] [address] STATES OF [facility] WBC (Bld) [#/Vol] 9.73 10*3/uL Normal 3.70-11.00 [facility] Comment on above: Order Comment: Speci men Type: BLOOD SPECIMENOrdering Facility: [facility] Address: [address] [place] [address] Performed By: #### 5 8410-2 ####[facility]ORATORYCLIA [id number] [address] [place] Magnesium SerPl-mCncon 03-06 Magnesium [Mass/Vol] 2.2 mg/dL Normal 1.7-2.3 [facility] Comment on above: Order Comment: Speci men Type: BLOOD SPECIMENOrdering Facility: [facility] Address: [address] [place] [address] Performed By: #### 2 4321-2, 19246-7 ####[facility]ORATORYCLIA [id number] [address] [place] THERAPY NTon 03-06-2024 THERAPY NT Normal [facility] XR CHEST 1V FRONTALon 2024 XR CHEST 1V FRONTAL Normal [facility] Basic metabolic 2000 panelon 01-15-2025 Anion gap [Moles/Vol] 10 mmol/L Normal 8-15 [facility] Comment on above: Order Comment: Speci men Type: BLOOD SPECIMENOrdering Facility: [facility] Address: [address] [place] [address] Performed By: #### 2 4321-2 ####[facility]ORATORYCLIA [id number] [place] [address] [place] Calcium [Mass/Vol] 8.4 mg/dL Low 8.5-10.2 [facility] Comment on above: Order Comment: Speci men Type: BLOOD SPECIMENOrdering Facility: [facility] Address: [address] [place] [address] Performed By: #### 2 4321-2 ####[facility]ATORYCLIA [id number] [place] [address] [place] Chloride [Moles/Vol] 102 mmol/L Normal 98-107 [facility] Comment on above: Order Comment: Speci men Type: BLOOD SPECIMENOrdering Facility: [facility] Address: [address] [place] [address] Performed By: #### 2 4321-2 ####[facility]ATORYCLIA [id number] [place] [address] [place] CO2 [Moles/Vol] 24 mmol/L Normal 22-30 [facility] Comment on above: Order Comment: Speci men Type: BLOOD SPECIMENOrdering Facility: [facility] Address: [address] [place] [address] Performed By: #### 2 4321-2 ####[facility]ORATORYCLIA [id number] [place] [address] [place] Creatinine [Mass/Vol] 0.94 mg/dL Normal 0.73-1.22 [facility] Comment on above: Order Comment: Speci men Type: BLOOD SPECIMENOrdering Facility: [facility] Address: [address] [place] [address] Performed By: #### 2 4321-2 ####[facility]ORATORYCLIA [id number] [place] [address] [place] Creatinine and Glomerular filtration rate.predicted panel (S/P/Bld) 84 mL/min/1.73m??? Normal >=60 [facility] Comment on above: Order Comment: Rachid sanchez Type: BLOOD SPECIMENOrdering Facility: [facility] Address: [address] [place] [address] Result Comment: Teri mated Glomerular Filtration Rate (eGFR) is calculated using the 2020 CKD-EPI creatinine equation. This equation utilizes serum creatinine, sex, and age as parameters. The creatinine assay has traceable calibration to isotope dilution-mass spectrometry. Refer to KDIGO guidelines for clinical interpretation. In patients with unstable renal function, e.g. those with acute kidney injury, the eGFR may not accurately reflect actual GFR. Performed By: #### 2 4321-2 ####[facility]ORATORYCLIA [id number] [place] [address] [place] Glucose [Mass/Vol] 118 mg/dL High 74-99 [facility] Comment on above: Order Comment: Rachid sanchez Type: BLOOD SPECIMENOrdering Facility: [facility] Address: [address] [place] [address] Result Comment: The [place] Diabetes [employer] (ADA) provides guidance for cutoff values for fasting glucose and random glucose. The ADA defines fasting as no caloric intake for at least 8 hours. Fasting plasma glucose results between 100 to 125 mg/dL indicate increased risk for diabetes (prediabetes).Fasting plasma glucose results greater than or equal to 126 mg/dL meet the criteria for diagnosis of diabetes. In the absence of unequivocal hyperglycemia, results should be confirmed by repeat testing. In a patient with classic symptoms of hyperglycemia or hyperglycemic crisis, random plasma glucose results greater than or equal to 200 mg/dL meet the criteria for diagnosis of diabetes.Reference: Standards of Medical Care in Diabetes 2016, [place] [employer]. Diabetes Care. 2016.39(Suppl 1). Performed By: #### 2 4321-2 ####[facility]ATORYCLIA [id number] [place] [id number] [place] Potassium [Moles/Vol] 3.6 mmol/L Low 3.7-5.1 [facility] Comment on above: Order Comment: Speci men Type: BLOOD SPECIMENOrdering Facility: [facility] Address: [address] [place] [address] Performed By: #### 2 4321-2 ####[facility]ORATORYCLIA [id number] [address] Sodium [Moles/Vol] 136 mmol/L Normal 136-144 [facility] Comment on above: Order Comment: Speci men Type: BLOOD SPECIMENOrdering Facility: [facility] Address: [address] [place] [address] Performed By: #### 2 4321-2 ####[facility]ORATORYCLIA [id number] [address] STATES [facility] Urea nitrogen [Mass/Vol] 23 mg/dL Normal 9-24 [facility] Comment on above: Order Comment: Speci men Type: BLOOD SPECIMENOrdering Facility: [facility] Address: [address] [place] [address] Performed By: #### 2 4321-2 ####[facility]ORATORYCLIA [id number] [address] STATES [facility] CBC panel Auto (Bld)on 03-05 Erythrocyte distribution width (RBC) [Ratio] 14.6 % Normal 11.5-15.0 [facility] Comment on above: Order Comment: Speci men Type: BLOOD SPECIMENOrdering Facility: [facility] Address: [address] [place] [address] Performed By: #### 5 8410-2 ####[facility]ATORYCLIA [id number] [address] Hematocrit (Bld) [Volume fraction] 23.6 % Low 39.0-51.0 [facility] Comment on above: Order Comment: Speci men Type: BLOOD SPECIMENOrdering Facility: [facility] Address: [address] [place] [address] Performed By: #### 5 8410-2 ####[facility]ORATORYCLIA [id number] [place] [address] [place] Hemoglobin (Bld) [Mass/Vol] 7.6 g/dL Low 13.0-17.0 [facility] Comment on above: Order Comment: Speci men Type: BLOOD SPECIMENOrdering Facility: [facility] Address: [address] [place] [address] Performed By: #### 5 8410-2 ####[facility]ATORYCLIA [id number] [address] STATES OF [facility] MCH (RBC) [Entitic mass] 29.5 pg Normal 26.0-34.0 [facility] Comment on above: Order Comment: Speci men Type: BLOOD SPECIMENOrdering Facility: [facility] Address: [address] [place] [address] Performed By: #### 5 8410-2 ####[facility]ATORYCLIA [id number] [address] [place] MCHC (RBC) [Mass/Vol] 32.2 g/dL Normal 30.5-36.0 [facility] Comment on above: Order Comment: Speci men Type: BLOOD SPECIMENOrdering Facility: [facility] Address: [address] [place] [address] Performed By: #### 5 8410-2 ####[facility]ORATORYCLIA [id number] [address] STATES [facility] MCV (RBC) [Entitic vol] 91.5 fL Normal 80.0-100.0 [facility] Comment on above: Order Comment: Speci men Type: BLOOD SPECIMENOrdering Facility: [facility] Address: [address] [place] [address] Performed By: #### 5 8410-2 ####[facility]ATORYCLIA [id number] [address] Nucleated RBC (Bld) [#/Vol] 10*3/uL Normal <0.01 [facility] Comment on above: Order Comment: Speci men Type: BLOOD SPECIMENOrdering Facility: [facility] Address: [address] [place] [address] Performed By: #### 5 8410-2 ####[facility]ORATORYCLIA [id number] [address] [place] Platelet mean volume (Bld) [Entitic vol] 11.2 fL Normal 9.0-12.7 [facility] Comment on above: Order Comment: Speci men Type: BLOOD SPECIMENOrdering Facility: [facility] Address: [address] [place] [address] Performed By: #### 5 8410-2 ####[facility]ORATORYCLIA [id number] [place] [address] [place] Platelets (Bld) [#/Vol] 256 10*3/uL Normal 150-400 [facility] Comment on above: Order Comment: Speci men Type: BLOOD SPECIMENOrdering Facility: [facility] Address: [address] [place] [address] Performed By: #### 5 8410-2 ####[facility]ORATORYCLIA [id number] [address] [place] RBC (Bld) [#/Vol] 2.58 10*6/uL Low 4.20-6.00 [facility] Comment on above: Order Comment: Speci men Type: BLOOD SPECIMENOrdering Facility: [facility] Address: [address] [place] [address] Performed By: #### 5 8410-2 ####[facility]ATORYCLIA [id number] [address] [place] WBC (Bld) [#/Vol] 7.68 10*3/uL Normal 3.70-11.00 [facility] Comment on above: Order Comment: Speci men Type: BLOOD SPECIMENOrdering Facility: [facility] Address: [address] [place] [address] Performed By: #### 5 8410-2 ####[facility]ORATORYCLIA [id number] [address] OF [place] CONSULT PROGon 03-05-2024 CONSULT PROG Normal [facility] THERAPY NTon 03-05-2024 THERAPY NT Normal [facility] XR CHEST 2V FRONTAL/LATon XR CHEST 2V FRONTAL/LAT Normal [facility] ALLIED HEALTHon 03-04-2024 ALLIED HEALTH Normal [facility] Basic metabolic 2000 panelon 03-04-2024 Anion gap [Moles/Vol] 10 mmol/L Normal 8-15 [facility] Comment on above: Order Comment: Speci men Type: BLOOD SPECIMENOrdering Facility: [facility] Address: [address] [place] [address] Performed By: #### 2 4321-2 ####[facility]ATORYCLIA [id number] [place] [address] [place] Calcium [Mass/Vol] 8.3 mg/dL Low 8.5-10.2 [facility] Comment on above: Order Comment: Speci men Type: BLOOD SPECIMENOrdering Facility: [facility] Address: [address] [place] [address] Performed By: #### 2 4321-2 ####[facility]ATORYCLIA [id number] [place] [address] [place] Chloride [Moles/Vol] 107 mmol/L Normal 98-107 [facility] Comment on above: Order Comment: Speci men Type: BLOOD SPECIMENOrdering Facility: [facility] Address: [address] [place] [address] Performed By: #### 2 4321-2 ####[facility]ATORYCLIA [id number] [place] [address] [place] CO2 [Moles/Vol] 22 mmol/L Normal 22-30 [facility] Comment on above: Order Comment: Speci men Type: BLOOD SPECIMENOrdering Facility: [facility] Address: [address] [place] [address] Performed By: #### 2 4321-2 ####[facility]ATORYCLIA [id number] [place] [address] [place] Creatinine [Mass/Vol] 0.97 mg/dL Normal 0.73-1.22 [facility] Comment on above: Order Comment: Rachid sanchez Type: BLOOD SPECIMENOrdering Facility: [facility] Address: [address] [place] [address] Performed By: #### 2 4321-2 ####[facility]ATORYCLIA [id number] [address] [place] Creatinine and Glomerular filtration rate.predicted panel (S/P/Bld) 81 mL/min/1.73m??? Normal >=60 [facility] Comment on above: Order Comment: Zeeshancatrina sanchez Type: BLOOD SPECIMENOrdering Facility: [facility] Address: [address] [place] [address] Result Comment: Teri mated Glomerular Filtration Rate (eGFR) is calculated using the 2020 CKD-EPI creatinine equation. This equation utilizes serum creatinine, sex, and age as parameters. The creatinine assay has traceable calibration to isotope dilution-mass spectrometry. Refer to KDIGO guidelines for clinical interpretation. In patients with unstable renal function, e.g. those with acute kidney injury, the eGFR may not accurately reflect actual GFR. Performed By: #### 2 4321-2 ####[facility]ATORYCLIA [id number] [place] [address] [place] Glucose [Mass/Vol] 172 mg/dL High 74-99 [facility] Comment on above: Order Comment: Rachid sanchez Type: BLOOD SPECIMENOrdering Facility: [facility] Address: [address] [place] [address] Result Comment: The [place] Diabetes [employer] (ADA) provides guidance for cutoff values for fasting glucose and random glucose. The ADA defines fasting as no caloric intake for at least 8 hours. Fasting plasma glucose results between 100 to 125 mg/dL indicate increased risk for diabetes (prediabetes).Fasting plasma glucose results greater than or equal to 126 mg/dL meet the criteria for diagnosis of diabetes. In the absence of unequivocal hyperglycemia, results should be confirmed by repeat testing. In a patient with classic symptoms of hyperglycemia or hyperglycemic crisis, random plasma glucose results greater than or equal to 200 mg/dL meet the criteria for diagnosis of diabetes.Reference: Standards of Medical Care in Diabetes 2016, [place] [employer]. Diabetes Care. 2016.39(Suppl 1). Performed By: #### 2 4321-2 ####[facility]ORATORYCLIA [id number] [place] [address] [place] Potassium [Moles/Vol] 3.7 mmol/L Normal 3.7-5.1 [facility] Comment on above: Order Comment: Speci men Type: BLOOD SPECIMENOrdering Facility: [facility] Address: [address] [place] [address] Performed By: #### 2 4321-2 ####[facility]ORATORYCLIA [id number] [place] [id number] [place] Sodium [Moles/Vol] 139 mmol/L Normal 136-144 [facility] Comment on above: Order Comment: Speci men Type: BLOOD SPECIMENOrdering Facility: [facility] Address: [address] [place] [address] Performed By: #### 2 4321-2 ####[facility]ORATORYCLIA [id number] [address] [place] Urea nitrogen [Mass/Vol] 22 mg/dL Normal 9-24 [facility] Comment on above: Order Comment: Speci men Type: BLOOD SPECIMENOrdering Facility: [facility] Address: [address] [place] [address] Performed By: #### 2 4321-2 ####[facility]ORATORYCLIA [id number] [place] [id number] [place] CASE MANAGEMon 03-04-2024 CASE MANAGEM Normal [facility] CBC panel Auto (Bld)on 03-04 Erythrocyte distribution width (RBC) [Ratio] 14.6 % Normal 11.5-15.0 [facility] Comment on above: Order Comment: Speci men Type: BLOOD SPECIMENOrdering Facility: [facility] Address: [address] [place] [address] Performed By: #### 5 8410-2 ####[facility]ORATORYCLIA [id number] [address] [place] Hematocrit (Bld) [Volume fraction] 22.9 % Low 39.0-51.0 [facility] Comment on above: Order Comment: Speci men Type: BLOOD SPECIMENOrdering Facility: [facility] Address: [address] [place] [address] Performed By: #### 5 8410-2 ####[facility]ORATORYCLIA [id number] [address] STATES OF [facility] Hemoglobin (Bld) [Mass/Vol] 7.5 g/dL Low 13.0-17.0 [facility] Comment on above: Order Comment: Speci men Type: BLOOD SPECIMENOrdering Facility: [facility] Address: [address] [place] [address] Performed By: #### 5 8410-2 ####[facility]ORATORYCLIA [id number] [address] STATES OF [facility] MCH (RBC) [Entitic mass] 30.1 pg Normal 26.0-34.0 [facility] Comment on above: Order Comment: Speci men Type: BLOOD SPECIMENOrdering Facility: [facility] Address: [address] [place] [address] Performed By: #### 5 8410-2 ####[facility]ORATORYCLIA [id number] [address] [place] MCHC (RBC) [Mass/Vol] 32.8 g/dL Normal 30.5-36.0 [facility] Comment on above: Order Comment: Speci men Type: BLOOD SPECIMENOrdering Facility: [facility] Address: [address] [place] [address] Performed By: #### 5 8410-2 ####[facility]ORATORYCLIA [id number] [address] [place] MCV (RBC) [Entitic vol] 92.0 fL Normal 80.0-100.0 [facility] Comment on above: Order Comment: Speci men Type: BLOOD SPECIMENOrdering Facility: [facility] Address: [address] [place] [address] Performed By: #### 5 8410-2 ####[facility]ATORYCLIA [id number] [address] [place] Nucleated RBC (Bld) [#/Vol] 10*3/uL Normal <0.01 [facility] Comment on above: Order Comment: Speci men Type: BLOOD SPECIMENOrdering Facility: [facility] Address: [address] [place] [address] Performed By: #### 5 8410-2 ####[facility]ORATORYCLIA [id number] [place] [address] [place] Platelet mean volume (Bld) [Entitic vol] 11.0 fL Normal 9.0-12.7 [facility] Comment on above: Order Comment: Speci men Type: BLOOD SPECIMENOrdering Facility: [facility] Address: [address] [place] [address] Performed By: #### 5 8410-2 ####[facility]ORATORYCLIA [id number] [address] [place] Platelets (Bld) [#/Vol] 209 10*3/uL Normal 150-400 [facility] Comment on above: Order Comment: Speci men Type: BLOOD SPECIMENOrdering Facility: [facility] Address: [address] [place] [address] Performed By: #### 5 8410-2 ####[facility]ATORYCLIA [id number] [address] [place] RBC (Bld) [#/Vol] 2.49 10*6/uL Low 4.20-6.00 [facility] Comment on above: Order Comment: Speci men Type: BLOOD SPECIMENOrdering Facility: [facility] Address: [address] [place] [address] Performed By: #### 5 8410-2 ####[facility]ORATORYCLIA [id number] [address] [place] WBC (Bld) [#/Vol] 8.57 10*3/uL Normal 3.70-11.00 [facility] Comment on above: Order Comment: Speci men Type: BLOOD SPECIMENOrdering Facility: [facility] Address: [address] [place] [address] Performed By: #### 5 8410-2 ####[facility] LABORATORYCLIA [id number] [place] [address] [place] NURSING PROGon 03-04-2024 NURSING PROG Normal [facility] PT EDon 03-04-2024 PT ED Normal [facility] XR CHEST 1V FRONTALon 2024 XR CHEST 1V FRONTAL Normal [facility] Basic metabolic 2000 panelon 03-03-2024 Anion gap [Moles/Vol] 10 mmol/L Normal 8-15 [facility] Comment on above: Order Comment: Speci men Type: BLOOD SPECIMENOrdering Facility: [facility] Address: [address] [place] [address] Performed By: #### 2 4321-2 ####[facility]ORATORYCLIA [id number] [place] [address] [place] Calcium [Mass/Vol] 8.1 mg/dL Low 8.5-10.2 [facility] Comment on above: Order Comment: Speci men Type: BLOOD SPECIMENOrdering Facility: [facility] Address: [address] [place] [address] Performed By: #### 2 4321-2 ####[facility]ORATORYCLIA [id number] [place] [address] [place] Chloride [Moles/Vol] 110 mmol/L High 98-107 [facility] Comment on above: Order Comment: Speci men Type: BLOOD SPECIMENOrdering Facility: [facility] Address: [address] [place] [address] Performed By: #### 2 4321-2 ####[facility]ORATORYCLIA [id number] [place] [address] [place] CO2 [Moles/Vol] 21 mmol/L Low 22-30 [facility] Comment on above: Order Comment: Speci men Type: BLOOD SPECIMENOrdering Facility: [facility] Address: [address] [place] [address] Performed By: #### 2 4321-2 ####[facility] LABORATORYCLIA [id number] [place] [address] [place] Creatinine [Mass/Vol] 0.83 mg/dL Normal 0.73-1.22 [facility] Comment on above: Order Comment: Rachid sanchez Type: BLOOD SPECIMENOrdering Facility: [facility] Address: [address] [place] [address] Performed By: #### 2 4321-2 ####[facility] HOSPITALIA [id number] [place] [id number] [facility] Creatinine and Glomerular filtration rate.predicted panel (S/P/Bld) 91 mL/min/1.73m??? Normal >=60 [facility] Comment on above: Order Comment: Rachid sanchez Type: BLOOD SPECIMENOrdering Facility: [facility] Address: [address] [place] [address] Result Comment: Teri mated Glomerular Filtration Rate (eGFR) is calculated using the 2020 CKD-EPI creatinine equation. This equation utilizes serum creatinine, sex, and age as parameters. The creatinine assay has traceable calibration to isotope dilution-mass spectrometry. Refer to KDIGO guidelines for clinical interpretation. In patients with unstable renal function, e.g. those with acute kidney injury, the eGFR may not accurately reflect actual GFR. Performed By: #### 2 4321-2 ####[facility]ORATORYCLIA [id number] [address] STATES OF PRECIOUS Glucose [Mass/Vol] 117 mg/dL High 74-99 [facility] Comment on above: Order Comment: Rachid laura Type: BLOOD SPECIMENOrdering Facility: [facility] Address: [address] [place] [address] Result Comment: The [place] [employer] (ADA) provides guidance for cutoff values for fasting glucose and random glucose. The ADA defines fasting as no caloric intake for at least 8 hours. Fasting plasma glucose results between 100 to 125 mg/dL indicate increased risk for diabetes (prediabetes).Fasting plasma glucose results greater than or equal to 126 mg/dL meet the criteria for diagnosis of diabetes. In the absence of unequivocal hyperglycemia, results should be confirmed by repeat testing. In a patient with classic symptoms of hyperglycemia or hyperglycemic crisis, random plasma glucose results greater than or equal to 200 mg/dL meet the criteria for diagnosis of diabetes.Reference: Standards of Medical Care in Diabetes 2016, [place] [employer]. Diabetes Care. 2016.39(Suppl 1). Performed By: #### 2 4321-2 ####[facility]ORATORYCLIA [id number] [address] STATES OF [facility] Potassium [Moles/Vol] 3.8 mmol/L Normal 3.7-5.1 [facility] Comment on above: Order Comment: Speci men Type: BLOOD SPECIMENOrdering Facility: [facility] Address: [address] [place] [address] Performed By: #### 2 4321-2 ####[facility]ORATORYCLIA [id number] [address] STATES [facility] Sodium [Moles/Vol] 141 mmol/L Normal 136-144 [facility] Comment on above: Order Comment: Speci men Type: BLOOD SPECIMENOrdering Facility: [facility] Address: [address] [place] [address] Performed By: #### 2 4321-2 ####[facility]ORATORYCLIA [id number] [address] STATES [facility] Urea nitrogen [Mass/Vol] 18 mg/dL Normal 9-24 [facility] Comment on above: Order Comment: Speci men Type: BLOOD SPECIMENOrdering Facility: [facility] Address: [address] [place] [address] Performed By: #### 2 4321-2 ####[facility]ORATORYCLIA [id number] [address] STATES OF PRECIOUS CASE MANAGEMon 03-03-2024 CASE MANAGEM Normal [facility] CBC panel Auto (Bld)on 03-03 Erythrocyte distribution width (RBC) [Ratio] 14.6 % Normal 11.5-15.0 [facility] Comment on above: Order Comment: Speci men Type: BLOOD SPECIMENOrdering Facility: [facility] Address: [address] [place] [address] Performed By: #### 5 8410-2 ####[facility]ORATORYCLIA [id number] [address] Hematocrit (Bld) [Volume fraction] 22.5 % Low 39.0-51.0 [facility] Comment on above: Order Comment: Speci men Type: BLOOD SPECIMENOrdering Facility: [facility] Address: [address] [place] [address] Performed By: #### 5 8410-2 ####[facility]ORATORYCLIA [id number] [address] OF [facility] Hemoglobin (Bld) [Mass/Vol] 7.5 g/dL Low 13.0-17.0 [facility] Comment on above: Order Comment: Speci men Type: BLOOD SPECIMENOrdering Facility: [facility] Address: [address] [place] [address] Performed By: #### 5 8410-2 ####[facility]ORATORYCLIA [id number] [address] MCH (RBC) [Entitic mass] 30.5 pg Normal 26.0-34.0 [facility] Comment on above: Order Comment: Speci men Type: BLOOD SPECIMENOrdering Facility: [facility] Address: [address] [place] [address] Performed By: #### 5 8410-2 ####[facility]ORATORYCLIA [id number] [address] MCHC (RBC) [Mass/Vol] 33.3 g/dL Normal 30.5-36.0 [facility] Comment on above: Order Comment: Speci men Type: BLOOD SPECIMENOrdering Facility: [facility] Address: [address] [place] [address] Performed By: #### 5 8410-2 ####[facility]ORATORYCLIA [id number] [address] OF PRECIOUS MCV (RBC) [Entitic vol] 91.5 fL Normal 80.0-100.0 [facility] Comment on above: Order Comment: Speci men Type: BLOOD SPECIMENOrdering Facility: [facility] Address: [address] [place] [address] Performed By: #### 5 8410-2 ####[facility]ORATORYCLIA [id number] [address] STATES OF PRECIOUS Nucleated RBC (Bld) [#/Vol] 10*3/uL Normal <0.01 [facility] Comment on above: Order Comment: Speci men Type: BLOOD SPECIMENOrdering Facility: [facility] Address: [address] [place] [address] Performed By: #### 5 8410-2 ####[facility]ORATORYCLIA [id number] [address] STATES OF PRECIOUS Platelet mean volume (Bld) [Entitic vol] 11.3 fL Normal 9.0-12.7 [facility] Comment on above: Order Comment: Speci men Type: BLOOD SPECIMENOrdering Facility: [facility] Address: [address] [place] [address] Performed By: #### 5 8410-2 ####[facility]ORATORYCLIA [id number] [address] STATES OF PRECIOUS Platelets (Bld) [#/Vol] 169 10*3/uL Normal 150-400 [facility] Comment on above: Order Comment: Speci men Type: BLOOD SPECIMENOrdering Facility: [facility] Address: [address] [place] [address] Performed By: #### 5 8410-2 ####[facility]ORATORYCLIA [id number] [address] STATES OF PRE[place] RBC (Bld) [#/Vol] 2.46 10*6/uL Low 4.20-6.00 [facility] Comment on above: Order Comment: Speci men Type: BLOOD SPECIMENOrdering Facility: [facility] Address: [address] [place] [address] Performed By: #### 5 8410-2 ####[facility]ORATORYCLIA [id number] [place] [address] [place] WBC (Bld) [#/Vol] 9.74 10*3/uL Normal 3.70-11.00 [facility] Comment on above: Order Comment: Speci men Type: BLOOD SPECIMENOrdering Facility: [facility] Address: [address] [place] [address] Performed By: #### 5 8410-2 ####[facility]ORATORYCLIA [id number] [place] [address] [place] NUTRITIONon 03-03-2024 NUTRITION Normal [facility] THERAPY NTon 03-03-2024 THERAPY NT Normal [facility] XR CHEST 1V FRONTALon 2024 XR CHEST 1V FRONTAL Normal [facility] Basic metabolic 2000 panelon 03-02-2024 Anion gap [Moles/Vol] 9 mmol/L Normal 8-15 [facility] Comment on above: Order Comment: Speci men Type: BLOOD SPECIMENOrdering Facility: [facility] Address: [address] [place] [address] Performed By: #### 2 4321-2 ####[facility]ORATORYCLIA [id number] [place] [address] [place] Calcium [Mass/Vol] 8.3 mg/dL Low 8.5-10.2 [facility] Comment on above: Order Comment: Speci men Type: BLOOD SPECIMENOrdering Facility: [facility] Address: [address] [place] [address] Performed By: #### 2 4321-2 ####[facility]ORATORYCLIA [id number] [place] [address] [place] Chloride [Moles/Vol] 106 mmol/L Normal 98-107 [facility] Comment on above: Order Comment: Speci men Type: BLOOD SPECIMENOrdering Facility: [facility] Address: [address] [place] [address] Performed By: #### 2 4321-2 ####[facility]ORATORYCLIA [id number] [place] [address] [place] CO2 [Moles/Vol] 21 mmol/L Low 22-30 [facility] Comment on above: Order Comment: Speci laura Type: BLOOD SPECIMENOrdering Facility: [facility] Address: [address] [place] [address] Performed By: #### 2 4321-2 ####[facility]ORATORYCLIA [id number] [address] STATES OF [place] Creatinine [Mass/Vol] 0.89 mg/dL Normal 0.73-1.22 [facility] Comment on above: Order Comment: Speci laura Type: BLOOD SPECIMENOrdering Facility: [facility] Address: [address] [place] [address] Performed By: #### 2 4321-2 ####[facility]CLIA [id number] [address] Creatinine and Glomerular filtration rate.predicted panel (S/P/Bld) 89 mL/min/1.73m??? Normal >=60 [facility] Comment on above: Order Comment: Speccatrina [facility] Type: BLOOD SPECIMENOrdering Facility: [facility] Address: [address] [place] [address] Result Comment: Teri mated Glomerular Filtration Rate (eGFR) is calculated using the 2020 CKD-EPI creatinine equation. This equation utilizes serum creatinine, sex, and age as parameters. The creatinine assay has traceable calibration to isotope dilution-mass spectrometry. Refer to KDIGO guidelines for clinical interpretation. In patients with unstable renal function, e.g. those with acute kidney injury, the eGFR may not accurately reflect actual GFR. Performed By: #### 2 4321-2 ####[facility]ORATORYCLIA [id number] [address] STATES OF [place] Glucose [Mass/Vol] 115 mg/dL High 74-99 [facility] Comment on above: Order Comment: Rachid [facility] Type: BLOOD SPECIMENOrdering Facility: [facility] Address: [address] [place] [address] Result Comment: The [place] Diabetes [employer] (ADA) provides guidance for cutoff values for fasting glucose and random glucose. The ADA defines fasting as no caloric intake for at least 8 hours. Fasting plasma glucose results between 100 to 125 mg/dL indicate increased risk for diabetes (prediabetes).Fasting plasma glucose results greater than or equal to 126 mg/dL meet the criteria for diagnosis of diabetes. In the absence of unequivocal hyperglycemia, results should be confirmed by repeat testing. In a patient with classic symptoms of hyperglycemia or hyperglycemic crisis, random plasma glucose results greater than or equal to 200 mg/dL meet the criteria for diagnosis of diabetes.Reference: Standards of Medical Care in Diabetes 2016, [place] [employer]. Diabetes Care. 2016.39(Suppl 1). Performed By: #### 2 4321-2 ####[facility]ORATORYCLIA [id number] [place] [address] [place] Potassium [Moles/Vol] 3.8 mmol/L Normal 3.7-5.1 [facility] Comment on above: Order Comment: Speci men Type: BLOOD SPECIMENOrdering Facility: [facility] Address: [address] [place] [address] Performed By: #### 2 4321-2 ####[facility]ORATORYCLIA [id number] [address] STATES OF [facility] Sodium [Moles/Vol] 136 mmol/L Normal 136-144 [facility] Comment on above: Order Comment: Speci men Type: BLOOD SPECIMENOrdering Facility: [facility] Address: [address] [place] [address] Performed By: #### 2 4321-2 ####[facility]ORATORYCLIA [id number] [address] STATES [facility] Urea nitrogen [Mass/Vol] 19 mg/dL Normal 9-24 [facility] Comment on above: Order Comment: Speci men Type: BLOOD SPECIMENOrdering Facility: [facility] Address: [address] [place] [address] Performed By: #### 2 4321-2 ####[facility]ORATORYCLIA [id number] [address] STATES OF PRECIOUS CBC panel Auto (Bld)on 03-02 Erythrocyte distribution width (RBC) [Ratio] 14.3 % Normal 11.5-15.0 [facility] Comment on above: Order Comment: Speci men Type: BLOOD SPECIMENOrdering Facility: [facility] Address: [address] [place] [address] Performed By: #### 5 8410-2 ####[facility]ORATORYCLIA [id number] [address] STATES OF [facility] Hematocrit (Bld) [Volume fraction] 22.2 % Low 39.0-51.0 [facility] Comment on above: Order Comment: Speci men Type: BLOOD SPECIMENOrdering Facility: [facility] Address: [address] [place] [address] Performed By: #### 5 8410-2 ####[facility]ORATORYCLIA [id number] [address] [place] Hemoglobin (Bld) [Mass/Vol] 7.5 g/dL Low 13.0-17.0 [facility] Comment on above: Order Comment: Speci men Type: BLOOD SPECIMENOrdering Facility: [facility] Address: [address] [place] [address] Performed By: #### 5 8410-2 ####[facility]ORATORYCLIA [id number] [address] STATES OF [place] MCH (RBC) [Entitic mass] 30.4 pg Normal 26.0-34.0 [facility] Comment on above: Order Comment: Speci men Type: BLOOD SPECIMENOrdering Facility: [facility] Address: [address] [place] [address] Performed By: #### 5 8410-2 ####[facility]ORATORYCLIA [id number] [address] STATES OF PRE[place]OUS MCHC (RBC) [Mass/Vol] 33.8 g/dL Normal 30.5-36.0 [facility] Comment on above: Order Comment: Speci men Type: BLOOD SPECIMENOrdering Facility: [facility] Address: [address] [place] [address] Performed By: #### 5 8410-2 ####[facility]ORATORYCLIA [id number] [address] OF PRECIOUS MCV (RBC) [Entitic vol] 89.9 fL Normal 80.0-100.0 [facility] Comment on above: Order Comment: Speci men Type: BLOOD SPECIMENOrdering Facility: [facility] Address: [address] [place] [address] Performed By: #### 5 8410-2 ####[facility]ORATORYCLIA [id number] [address] STATES OF PRE[place]OUS Nucleated RBC (Bld) [#/Vol] 10*3/uL Normal <0.01 [facility] Comment on above: Order Comment: Speci men Type: BLOOD SPECIMENOrdering Facility: [facility] Address: [address] [place] [address] Performed By: #### 5 8410-2 ####[facility]ORATORYCLIA [id number] [address] STATES OF PRECIOUS Platelet mean volume (Bld) [Entitic vol] 11.2 fL Normal 9.0-12.7 [facility] Comment on above: Order Comment: Speci men Type: BLOOD SPECIMENOrdering Facility: [facility] Address: [address] [place] [address] Performed By: #### 5 8410-2 ####[facility]ORATORYCLIA [id number] [address] STATES OF PRECIOUS Platelets (Bld) [#/Vol] 165 10*3/uL Normal 150-400 [facility] Comment on above: Order Comment: Speci men Type: BLOOD SPECIMENOrdering Facility: [facility] Address: [address] [place] [address] Performed By: #### 5 8410-2 ####[facility]ORATORYCLIA [id number] [address] STATES OF PRE[place] RBC (Bld) [#/Vol] 2.47 10*6/uL Low 4.20-6.00 [facility] Comment on above: Order Comment: Speci men Type: BLOOD SPECIMENOrdering Facility: [facility] Address: [address] [place], [place] [address] Performed By: #### 5 8410-2 ####[facility] LABORATORYCLIA [id number] [place] [address] [place] WBC (Bld) [#/Vol] 13.42 10*3/uL High 3.70-11.00 [facility] Comment on above: Order Comment: Speci men Type: BLOOD SPECIMENOrdering Facility: [facility] Address: [address] [place] [address] Performed By: #### 5 8410-2 ####[facility]ORATORYCLIA [id number] [address] STATES OF PRECIOUS CONSULTon 03-02-2024 CONSULT Normal [facility] XR CHEST 1V FRONTALon 2024 XR CHEST 1V FRONTAL Normal [facility] ARTERIAL BLOOD GASESon 03-01 Base deficit (BldA) [Moles/Vol] -3 mmol/L Low -2-0 [facility] Comment on above: Order Comment: Speci men Type: ARTERIAL BLOOD SPECIMENOrdering Facility: [facility] Address: [address] [place] [address] Performed By: #### A LLBG ####[facility] LABORATORYCLIA [id number] [address] Body temperature 99.86 [degF] Normal [facility] Comment on above: Order Comment: Speci men Type: ARTERIAL BLOOD SPECIMENOrdering Facility: [facility] Address: [address] [place] [address] Performed By: #### A LLBG ####[facility]ORATORYCLIA [id number] [address] STATES OF PRECIOUS Calcium.ionized (BldV) [Mass/Vol] 1.25 mmol/L Normal 1.08-1.30 [facility] Comment on above: Order Comment: Speci men Type: ARTERIAL BLOOD SPECIMENOrdering Facility: [facility] Address: [address] [place] [address] Performed By: #### A LLBG ####[facility]ORATORYCLIA [id number] [address] STATES OF [facility] Calcium.ionized adjusted to pH 7.4 (BldA) [Moles/Vol] 1.26 mmol/L Normal 1.08-1.30 [facility] Comment on above: Order Comment: Speci men Type: ARTERIAL BLOOD SPECIMENOrdering Facility: [facility] Address: [address] [place] [address] Performed By: #### A LLBG ####[facility]ORATORYCLIA [id number] [address] OF PRECIOUS Carboxyhemoglobin (BldA) [Mass fraction] 1.7 % Normal 0.0-2.0 [facility] Comment on above: Order Comment: Speci men Type: ARTERIAL BLOOD SPECIMENOrdering Facility: [facility] Address: [address] [place] [address] Result Comment: Carb oxyhemoglobin Reference Range for Smokers: 2.0-8.0% Performed By: #### A LLBG ####[facility]ORATORYCLIA [id number] [address] STATES OF PRECIOUS Chloride [Moles/Vol] 104 mmol/L Normal 97-105 [facility] Comment on above: Order Comment: Speci men Type: ARTERIAL BLOOD SPECIMENOrdering Facility: [facility] Address: [address] [place] [address] Performed By: #### A LLBG ####[facility]ORATORYCLIA [id number] [address] OF PRECIOUS CO2 (Bld) [Partial pressure] 33 mm Hg Low 36-46 [facility] Comment on above: Order Comment: Speci men Type: ARTERIAL BLOOD SPECIMENOrdering Facility: [facility] Address: [address] [place] [address] Performed By: #### A LLBG ####[facility]ORATORYCLIA [id number] [address] OF PRECIOUS CO2 adjusted to patient's actual temperature (Bld) [Partial pressure] 34 mmHg Low 36-46 [facility] Comment on above: Order Comment: Speci men Type: ARTERIAL BLOOD SPECIMENOrdering Facility: [facility] Address: [address] [place] [address] Performed By: #### A LLBG ####[facility]ORATORYCLIA [id number] [address] STATES OF PRECIOUS Glucose [Mass/Vol] 149 mg/dL High 60-105 [facility] Comment on above: Order Comment: Speci men Type: ARTERIAL BLOOD SPECIMENOrdering Facility: [facility] Address: [address] [place] [address] Performed By: #### A LLBG ####[facility]ORATORYCLIA [id number] [place] [address] [place] HCO3 (Bld) [Moles/Vol] 21 mmol/L Low 22-26 [facility] Comment on above: Order Comment: Speci men Type: ARTERIAL BLOOD SPECIMENOrdering Facility: [facility] Address: [address] [place] [address] Performed By: #### A LLBG ####[facility]ORATORYCLIA [id number] [address] STATES OF PRECIOUS Hematocrit (Bld) [Volume fraction] 21.3 % Low 39.0-51.0 [facility] Comment on above: Order Comment: Speci men Type: ARTERIAL BLOOD SPECIMENOrdering Facility: [facility] Address: [address] [place] [address] Performed By: #### A LLBG ####[facility]ORATORYCLIA [id number] [place] [address] [place] Hemoglobin (Bld) [Mass/Vol] 6.8 g/dL Low 13.0-17.0 [facility] Comment on above: Order Comment: Speci men Type: ARTERIAL BLOOD SPECIMENOrdering Facility: [facility] Address: [address] [place] [address] Performed By: #### A LLBG ####[facility]ORATORYCLIA [id number] [place] [address] [place] Lactate [Moles/Vol] 1.5 mmol/L Normal 0.5-2.2 [facility] Comment on above: Order Comment: Speci men Type: ARTERIAL BLOOD SPECIMENOrdering Facility: [facility] Address: [address] [place] [address] Performed By: #### A LLBG ####[facility]ATORYCLIA [id number] [address] STATES OF PRECIOUS LITERS 3 Liters/min Normal [facility] Comment on above: Order Comment: Speci men Type: ARTERIAL BLOOD SPECIMENOrdering Facility: [facility] Address: [address] [place] [address] Performed By: #### A LLBG ####[facility]ORATORYCLIA [id number] [address] OF PRECIOUS Methemoglobin (Bld) [Mass fraction] 0.7 % Normal 0.0-1.5 [facility] Comment on above: Order Comment: Speci men Type: ARTERIAL BLOOD SPECIMENOrdering Facility: [facility] Address: [address] [place] [address] Performed By: #### A LLBG ####[facility]ATORYCLIA [id number] [address] O2 THERAPY NC = Nasal Cannula Normal [facility] Comment on above: Order Comment: Speci men Type: ARTERIAL BLOOD SPECIMENOrdering Facility: [facility] Address: [address] [place] [address] Performed By: #### A LLBG ####[facility]ATORYCLIA [id number] [address] STATES OF PRECIOUS Oxygen (Bld) [Partial pressure] 83 mm Hg Low 85-95 [facility] Comment on above: Order Comment: Speci men Type: ARTERIAL BLOOD SPECIMENOrdering Facility: [facility] Address: [address] [place] [address] Performed By: #### A LLBG ####[facility]ORATORYCLIA [id number] [address] OF [place] Oxygen adjusted to patient's actual temperature (Bld) [Partial pressure] 86 mmHg Normal 85-95 [facility] Comment on above: Order Comment: Speci men Type: ARTERIAL BLOOD SPECIMENOrdering Facility: [facility] Address: [address] [place] [address] Performed By: #### A LLBG ####[facility]ORATORYCLIA [id number] [address] [place] Oxyhemoglobin (BldA) [Mass fraction] 95 % Normal 95-98 [facility] Comment on above: Order Comment: Speci men Type: ARTERIAL BLOOD SPECIMENOrdering Facility: [facility] Address: [address] [place] [address] Performed By: #### A LLBG ####[facility]ORATORYCLIA [id number] [place] [address] [place] pH (Bld) 7.41 [pH] Normal 7.35-7.45 [facility] Comment on above: Order Comment: Speci men Type: ARTERIAL BLOOD SPECIMENOrdering Facility: [facility] Address: [address] [place] [address] Performed By: #### A LLBG ####[facility]ORATORYCLIA [id number] [address] STATES [facility] pH adjusted to patient's actual temperature (Bld) 7.40 Normal 7.35-7.45 [facility] Comment on above: Order Comment: Speci men Type: ARTERIAL BLOOD SPECIMENOrdering Facility: [facility] Address: [address] [place] [address] Performed By: #### A LLBG ####[facility]ORATORYCLIA [id number] [place] [address] [place] Potassium [Moles/Vol] 4.3 mmol/L Normal 3.5-5.0 [facility] Comment on above: Order Comment: Speci men Type: ARTERIAL BLOOD SPECIMENOrdering Facility: [facility] Address: [address] [place] [address] Performed By: #### A LLBG ####[facility]ORATORYCLIA [id number] [place] [address] [place] Sodium [Moles/Vol] 138 mmol/L Normal 136-144 [facility] Comment on above: Order Comment: Speci men Type: ARTERIAL BLOOD SPECIMENOrdering Facility: [facility] Address: [address] [place] [address] Performed By: #### A LLBG ####[facility]ORATORYCLIA [id number] [place] [address] [place] Basic metabolic 2000 panelon 03-01-2024 Anion gap [Moles/Vol] 8 mmol/L Normal 8-15 [facility] Comment on above: Order Comment: Speci men Type: BLOOD SPECIMENOrdering Facility: [facility] Address: [address] [place] [address] Performed By: #### 2 4321-2, ####[facility]ORATORYCLIA [id number] [place] [address] [place] Calcium [Mass/Vol] 8.2 mg/dL Low 8.5-10.2 [facility] Comment on above: Order Comment: Speci men Type: BLOOD SPECIMENOrdering Facility: [facility] Address: [address] [place] [address] Performed By: #### 2 432-2, ####[facility]ORATORYCLIA [id number] [place] [address] [place] Chloride [Moles/Vol] 104 mmol/L Normal 98-107 [facility] Comment on above: Order Comment: Speci men Type: BLOOD SPECIMENOrdering Facility: [facility] Address: [address] [place] [address] Performed By: #### 2 4321-2, ####[facility]ATORYCLIA [id number] [place] [address] [place] CO2 [Moles/Vol] 21 mmol/L Low 22-30 [facility] Comment on above: Order Comment: Speci men Type: BLOOD SPECIMENOrdering Facility: [facility] Address: [address] [place] [address] Performed By: #### 2 4321-2, ####[facility]NACLIA [id number] [place] [address] [place] Creatinine [Mass/Vol] 0.91 mg/dL Normal 0.73-1.22 [facility] Comment on above: Order Comment: Rachid laura Type: BLOOD SPECIMENOrdering Facility: [facility] Address: [address] [place] [address] Performed By: #### 2 432-2, ####[facility]NACLIA [id number] [place] [address] [facility] Creatinine and Glomerular filtration rate.predicted panel (S/P/Bld) 87 mL/min/1.73m??? Normal >=60 [facility] Comment on above: Order Comment: Rachid laura Type: BLOOD SPECIMENOrdering Facility: [facility] Address: [address] [place] [address] Result Comment: Teri mated Glomerular Filtration Rate (eGFR) is calculated using the 2020 CKD-EPI creatinine equation. This equation utilizes serum creatinine, sex, and age as parameters. The creatinine assay has traceable calibration to isotope dilution-mass spectrometry. Refer to KDIGO guidelines for clinical interpretation. In patients with unstable renal function, e.g. those with acute kidney injury, the eGFR may not accurately reflect actual GFR. Performed By: #### 2 4321-2, ####[facility] LABORATORYIA [id number] [place] [address] [place] Glucose [Mass/Vol] 152 mg/dL High 74-99 [facility] Comment on above: Order Comment: Rachid laura Type: BLOOD SPECIMENOrdering Facility: [facility] Address: [address] [place] [address] Result Comment: The [place] Diabetes Association (ADA) provides guidance for cutoff values for fasting glucose and random glucose. The ADA defines fasting as no caloric intake for at least 8 hours. Fasting plasma glucose results between 100 to 125 mg/dL indicate increased risk for diabetes (prediabetes).Fasting plasma glucose results greater than or equal to 126 mg/dL meet the criteria for diagnosis of diabetes. In the absence of unequivocal hyperglycemia, results should be confirmed by repeat testing. In a patient with classic symptoms of hyperglycemia or hyperglycemic crisis, random plasma glucose results greater than or equal to 200 mg/dL meet the criteria for diagnosis of diabetes.Reference: Standards of Medical Care in Diabetes 2016, [place] [employer]. Diabetes Care. 2016.39(Suppl 1). Performed By: #### 2 4321-2, ####[facility]ORATORYCLIA [id number] [place] [address] [place] Potassium [Moles/Vol] 4.4 mmol/L Normal 3.7-5.1 [facility] Comment on above: Order Comment: Rachid asnchez Type: BLOOD SPECIMENOrdering Facility: [facility] Address: [address] [place] [address] Performed By: #### 2 2, ####[facility]ORATORYCLIA [id number] [address] STATES OF [facility] Sodium [Moles/Vol] 133 mmol/L Low 136-144 [facility] Comment on above: Order Comment: Rachid sanchez Type: BLOOD SPECIMENOrdering Facility: [facility] Address: [address] [place] [address] Performed By: #### 2 4320-03, ####[facility]ORATORYCLIA [id number] [address] STATES OF [facility] Urea nitrogen [Mass/Vol] 19 mg/dL Normal 9-24 [facility] Comment on above: Order Comment: Zeeshani laura Type: BLOOD SPECIMENOrdering Facility: [facility] Address: [address] [place] [address] Performed By: #### 2 4320-2, ####[facility]ORATORYCLIA [id number] [address] STATES OF [place] CBC panel Auto (Bld)on 03-01 Erythrocyte distribution width (RBC) [Ratio] 13.6 % Normal 11.5-15.0 [facility] Comment on above: Order Comment: Zeeshani men Type: BLOOD SPECIMENOrdering Facility: [facility] Address: [address] [place] [address] Performed By: #### 5 8410-2 ####[facility]ORATORYCLIA [id number] [address] Hematocrit (Bld) [Volume fraction] 20.9 % Low 39.0-51.0 [facility] Comment on above: Order Comment: Speci men Type: BLOOD SPECIMENOrdering Facility: [facility] Address: [address] [place] [address] Performed By: #### 5 8410-2 ####[facility]ORATORYCLIA [id number] [address] OF [facility] Hemoglobin (Bld) [Mass/Vol] 7.0 g/dL Low 13.0-17.0 [facility] Comment on above: Order Comment: Speci men Type: BLOOD SPECIMENOrdering Facility: [facility] Address: [address] [place] [address] Performed By: #### 5 8410-2 ####[facility]ORATORYCLIA [id number] [address] MCH (RBC) [Entitic mass] 29.4 pg Normal 26.0-34.0 [facility] Comment on above: Order Comment: Speci men Type: BLOOD SPECIMENOrdering Facility: [facility] Address: [address] [place] [address] Performed By: #### 5 8410-2 ####[facility]ORATORYCLIA [id number] [address] STATES OF [facility] MCHC (RBC) [Mass/Vol] 33.5 g/dL Normal 30.5-36.0 [facility] Comment on above: Order Comment: Speci men Type: BLOOD SPECIMENOrdering Facility: [facility] Address: [address] [place] [address] Performed By: #### 5 8410-2 ####[facility]ORATORYCLIA [id number] [address] MCV (RBC) [Entitic vol] 87.8 fL Normal 80.0-100.0 [facility] Comment on above: Order Comment: Speci men Type: BLOOD SPECIMENOrdering Facility: [facility] Address: [address] [place] [address] Performed By: #### 5 8410-2 ####[facility]ATORYCLIA [id number] [address] STATES OF [place] Nucleated RBC (Bld) [#/Vol] 10*3/uL Normal <0.01 [facility] Comment on above: Order Comment: Speci men Type: BLOOD SPECIMENOrdering Facility: [facility] Address: [address] [place] [address] Performed By: #### 5 8410-2 ####[facility]ATORYCLIA [id number] [place] [address] [place] Platelet mean volume (Bld) [Entitic vol] 10.6 fL Normal 9.0-12.7 [facility] Comment on above: Order Comment: Speci men Type: BLOOD SPECIMENOrdering Facility: [facility] Address: [address] [place] [address] Performed By: #### 5 8410-2 ####[facility]ATORYCLIA [id number] [address] STATES OF [place] Platelets (Bld) [#/Vol] 186 10*3/uL Normal 150-400 [facility] Comment on above: Order Comment: Speci men Type: BLOOD SPECIMENOrdering Facility: [facility] Address: [address] [place] [address] Performed By: #### 5 8410-2 ####[facility]ORATORYCLIA [id number] [place] [address] [place] RBC (Bld) [#/Vol] 2.38 10*6/uL Low 4.20-6.00 [facility] Comment on above: Order Comment: Speci men Type: BLOOD SPECIMENOrdering Facility: [facility] Address: [address] [place] [address] Performed By: #### 5 8410-2 ####[facility]ORATORYCLIA [id number] [place] [address] [place] WBC (Bld) [#/Vol] 17.15 10*3/uL High 3.70-11.00 [facility] Comment on above: Order Comment: Speci men Type: BLOOD SPECIMENOrdering Facility: [facility] Address: [address] [place] [address] Performed By: #### 5 8410-2 ####[facility]ORATORYCLIA [id number] [address] STATES OF [place] Magnesium SerPl-mCncon 03-01 Magnesium [Mass/Vol] 2.2 mg/dL Normal 1.7-2.3 [facility] Comment on above: Order Comment: Speci men Type: BLOOD SPECIMENOrdering Facility: [facility] Address: [address] [place] [address] Performed By: #### 2 4321-2, 52984-5 ####[facility]ORATORYCLIA [id number] [address] STATES OF [place] XR CHEST 1V FRONTALon 2024 XR CHEST 1V FRONTAL Normal [facility] ARTERIAL BLOOD GASESon 02-28 Base deficit (BldA) [Moles/Vol] -3 mmol/L Low -2-0 [facility] Comment on above: Order Comment: Speci men Type: ARTERIAL BLOOD SPECIMENOrdering Facility: [facility] Address: [address] [place] [address] Performed By: #### A LLBG ####[facility]ATORYCLIA [id number] [address] [place] Body temperature 100.58 [degF] Normal [facility] Comment on above: Order Comment: Speci men Type: ARTERIAL BLOOD SPECIMENOrdering Facility: [facility] Address: [address] [place] [address] Performed By: #### A LLBG ####[facility]ORATORYCLIA [id number] [address] [place] Calcium.ionized (BldV) [Mass/Vol] 1.20 mmol/L Normal 1.08-1.30 [facility] Comment on above: Order Comment: Speci men Type: ARTERIAL BLOOD SPECIMENOrdering Facility: [facility] Address: [address] [place] [address] Performed By: #### A LLBG ####[facility]ATORYCLIA [id number] [place] [address] [place] Calcium.ionized adjusted to pH 7.4 (BldA) [Moles/Vol] 1.20 mmol/L Normal 1.08-1.30 [facility] Comment on above: Order Comment: Speci men Type: ARTERIAL BLOOD SPECIMENOrdering Facility: [facility] Address: [address] [place] [address] Performed By: #### A LLBG ####[facility]ATORYCLIA [id number] [address] [place] Carboxyhemoglobin (BldA) [Mass fraction] 1.2 % Normal 0.0-2.0 [facility] Comment on above: Order Comment: Speci men Type: ARTERIAL BLOOD SPECIMENOrdering Facility: [facility] Address: [address] [place] [address] Result Comment: Carb oxyhemoglobin Reference Range for Smokers: 2.0-8.0% Performed By: #### A LLBG ####[facility]ORATORYCLIA [id number] [place] [address] [place] Chloride [Moles/Vol] 111 mmol/L High 97-105 [facility] Comment on above: Order Comment: Speci men Type: ARTERIAL BLOOD SPECIMENOrdering Facility: [facility] Address: [address] [place] [address] Performed By: #### A LLBG ####[facility]ORATORYCLIA [id number] [place] [address] [place] CO2 (Bld) [Partial pressure] 34 mm Hg Low 36-46 [facility] Comment on above: Order Comment: Speci men Type: ARTERIAL BLOOD SPECIMENOrdering Facility: [facility] Address: [address] [place] [address] Performed By: #### A LLBG ####[facility]ATORYCLIA [id number] [address] CO2 adjusted to patient's actual temperature (Bld) [Partial pressure] 36 mmHg Normal 36-46 [facility] Comment on above: Order Comment: Speci men Type: ARTERIAL BLOOD SPECIMENOrdering Facility: [facility] Address: [address] [place] [address] Performed By: #### A LLBG ####[facility]ORATORYCLIA [id number] [address] STATES OF [place] Glucose [Mass/Vol] 137 mg/dL High 60-105 [facility] Comment on above: Order Comment: Speci men Type: ARTERIAL BLOOD SPECIMENOrdering Facility: [facility] Address: [address] [place] [address] Performed By: #### A LLBG ####[facility]ORATORYCLIA [id number] [address] HCO3 (Bld) [Moles/Vol] 21 mmol/L Low 22-26 [facility] Comment on above: Order Comment: Speci men Type: ARTERIAL BLOOD SPECIMENOrdering Facility: [facility] Address: [address] [place] [address] Performed By: #### A LLBG ####[facility]ATORYCLIA [id number] [address] Hematocrit (Bld) [Volume fraction] 27.6 % Low 39.0-51.0 [facility] Comment on above: Order Comment: Speci men Type: ARTERIAL BLOOD SPECIMENOrdering Facility: [facility] Address: [address] [place] [address] Performed By: #### A LLBG ####[facility]ATORYCLIA [id number] [address] OF [place] Hemoglobin (Bld) [Mass/Vol] 8.9 g/dL Low 13.0-17.0 [facility] Comment on above: Order Comment: Speci men Type: ARTERIAL BLOOD SPECIMENOrdering Facility: [facility] Address: [address] [place] [address] Performed By: #### A LLBG ####[facility]ORYCLIA [id number] [address] [place] Lactate [Moles/Vol] 1.2 mmol/L Normal 0.5-2.2 [facility] Comment on above: Order Comment: Speci men Type: ARTERIAL BLOOD SPECIMENOrdering Facility: [facility] Address: [address] [place] [address] Performed By: #### A LLBG ####[facility]ATORYCLIA [id number] [address] Methemoglobin (Bld) [Mass fraction] 0.6 % Normal 0.0-1.5 [facility] Comment on above: Order Comment: Speci men Type: ARTERIAL BLOOD SPECIMENOrdering Facility: [facility] Address: [address] [place] [address] Performed By: #### A LLBG ####[facility]ATORYCLIA [id number] [address] O2 THERAPY RA=Room Air Normal [facility] Comment on above: Order Comment: Speci men Type: ARTERIAL BLOOD SPECIMENOrdering Facility: [facility] Address: [address] [place] [address] Performed By: #### A LLBG ####[facility]ATORYCLIA [id number] [address] [place] Oxygen (Bld) [Partial pressure] 68 mm Hg Low 85-95 [facility] Comment on above: Order Comment: Speci men Type: ARTERIAL BLOOD SPECIMENOrdering Facility: [facility] Address: [address] [place] [address] Performed By: #### A LLBG ####[facility]ORYCLIA [id number] [address] OF [place] Oxygen adjusted to patient's actual temperature (Bld) [Partial pressure] 73 mmHg Low 85-95 [facility] Comment on above: Order Comment: Speci men Type: ARTERIAL BLOOD SPECIMENOrdering Facility: [facility] Address: [address] [place] [address] Performed By: #### A LLBG ####[facility]ATORYCLIA [id number] [address] [place] Oxyhemoglobin (BldA) [Mass fraction] 92 % Low 95-98 [facility] Comment on above: Order Comment: Speci men Type: ARTERIAL BLOOD SPECIMENOrdering Facility: [facility] Address: [address] [place] [address] Performed By: #### A LLBG ####[facility]ATORYCLIA [id number] [address] [place] pH (Bld) 7.40 [pH] Normal 7.35-7.45 [facility] Comment on above: Order Comment: Speci men Type: ARTERIAL BLOOD SPECIMENOrdering Facility: [facility] Address: [address] [place] [address] Performed By: #### A LLBG ####[facility]ATORYCLIA [id number] [address] STATES [facility] pH adjusted to patient's actual temperature (Bld) 7.39 Normal 7.35-7.45 [facility] Comment on above: Order Comment: Speci men Type: ARTERIAL BLOOD SPECIMENOrdering Facility: [facility] Address: [address] [place] [address] Performed By: #### A LLBG ####[facility]ATORYCLIA [id number] [place] [address] [place] PO2 / FIO2 RATIO 324 mmHg Normal >300 [facility] Comment on above: Order Comment: Speci men Type: ARTERIAL BLOOD SPECIMENOrdering Facility: [facility] Address: [address] [place] [address] Performed By: #### A LLBG ####[facility]ATORYCLIA [id number] [place] [address] [place] Potassium [Moles/Vol] 4.5 mmol/L Normal 3.5-5.0 [facility] Comment on above: Order Comment: Speci men Type: ARTERIAL BLOOD SPECIMENOrdering Facility: [facility] Address: [address] [place] [address] Performed By: #### A LLBG ####[facility]ATORYCLIA [id number] [place] [address] [place] Sodium [Moles/Vol] 135 mmol/L Low 136-144 [facility] Comment on above: Order Comment: Speci men Type: ARTERIAL BLOOD SPECIMENOrdering Facility: [facility] Address: [address] [place] [address] Performed By: #### A LLBG ####[facility]ATORYCLIA [id number] [place] [address] [place] Basic metabolic 2000 panelon 02-29-2024 Anion gap [Moles/Vol] 9 mmol/L Normal 8-15 [facility] Comment on above: Order Comment: Speci men Type: BLOOD SPECIMENOrdering Facility: [facility] Address: [address] [place] [address] Performed By: #### 1 9123-9, 60713-5, 49140-0 ####[facility]ATORYCLIA [id number] [place] [address] [place] Calcium [Mass/Vol] 8.1 mg/dL Low 8.5-10.2 [facility] Comment on above: Order Comment: Speci men Type: BLOOD SPECIMENOrdering Facility: [facility] Address: [address] [place] [address] Performed By: #### 1 9123-9, 05503-1, 45572-3 ####[facility]ORATORYCLIA [id number] [place] [id number] [place] Chloride [Moles/Vol] 108 mmol/L High 98-107 [facility] Comment on above: Order Comment: Speci men Type: BLOOD SPECIMENOrdering Facility: [facility] Address: [address] [place] [address] Performed By: #### 1 9123-9, 91524-6, 82764-0 ####[facility]ORATORYCLIA [id number] [place] [address] [place] CO2 [Moles/Vol] 21 mmol/L Low 22-30 [facility] Comment on above: Order Comment: Speci men Type: BLOOD SPECIMENOrdering Facility: [facility] Address: [address] [place] [address] Performed By: #### 1 9123-9, 22879-3, 28608-6 ####[facility]ORATORYCLIA [id number] [place] [id number] [place] Creatinine [Mass/Vol] 0.81 mg/dL Normal 0.73-1.22 [facility] Comment on above: Order Comment: Speci men Type: BLOOD SPECIMENOrdering Facility: [facility] Address: [address] [place] [address] Performed By: #### 1 9123-9, 95578-5, 72441-6 ####[facility]CLIA [id number] [address] STATES OF [facility] Creatinine and Glomerular filtration rate.predicted panel (S/P/Bld) 91 mL/min/1.73m??? Normal >=60 [facility] Comment on above: Order Comment: Speci men Type: BLOOD SPECIMENOrdering Facility: [facility] Address: [address] [place] [address] Result Comment: Teri mated Glomerular Filtration Rate (eGFR) is calculated using the 2020 CKD-EPI creatinine equation. This equation utilizes serum creatinine, sex, and age as parameters. The creatinine assay has traceable calibration to isotope dilution-mass spectrometry. Refer to KDIGO guidelines for clinical interpretation. In patients with unstable renal function, e.g. those with acute kidney injury, the eGFR may not accurately reflect actual GFR. Performed By: #### 1 9123-9, 62466-9, 09719-4 ####[facility]ORATORYCLIA [id number] [place] [address] [place] Glucose [Mass/Vol] 133 mg/dL High 74-99 [facility] Comment on above: Order Comment: Speci men Type: BLOOD SPECIMENOrdering Facility: [facility] Address: [address] [place], [place] [address] Result Comment: The [place] [employer] (ADA) provides guidance for cutoff values for fasting glucose and random glucose. The ADA defines fasting as no caloric intake for at least 8 hours. Fasting plasma glucose results between 100 to 125 mg/dL indicate increased risk for diabetes (prediabetes).Fasting plasma glucose results greater than or equal to 126 mg/dL meet the criteria for diagnosis of diabetes. In the absence of unequivocal hyperglycemia, results should be confirmed by repeat testing. In a patient with classic symptoms of hyperglycemia or hyperglycemic crisis, random plasma glucose results greater than or equal to 200 mg/dL meet the criteria for diagnosis of diabetes.Reference: Standards of Medical Care in Diabetes 2016, [place] [employer]. Diabetes Care. 2016.39(Suppl 1). Performed By: #### 1 9123-9, 69757-7, 32807-6 ####[facility]ORATORYCLIA [id number] [place] [address] [place] Potassium [Moles/Vol] 4.2 mmol/L Normal 3.7-5.1 [facility] Comment on above: Order Comment: Zeeshani men Type: BLOOD SPECIMENOrdering Facility: [facility] Address: [address] [place] [address] Performed By: #### 1 9123-9, 67801-1, 10127-4 ####[facility]ORATORYCLIA [id number] [place] [address] [place] Sodium [Moles/Vol] 138 mmol/L Normal 136-144 [facility] Comment on above: Order Comment: Speci men Type: BLOOD SPECIMENOrdering Facility: [facility] Address: [address] [place], [place] [address] Performed By: #### 1 9123-9, 67350-6, 96917-6 ####[facility] LABORATORYCLIA [id number] [place] [address] [place] Urea nitrogen [Mass/Vol] 16 mg/dL Normal 9-24 [facility] Comment on above: Order Comment: Speci men Type: BLOOD SPECIMENOrdering Facility: [facility] Address: [address] [place] [address] Performed By: #### 1 9123-9, 03210-5, 67950-9 ####[facility]ORATORYCLIA [id number] [address] STATES [place] CASE MGT INIT ASSESon 2024 CASE MGT INIT ASSES Normal [facility] CBC panel Auto (Bld)on 02-28 Erythrocyte distribution width (RBC) [Ratio] 13.3 % Normal 11.5-15.0 [facility] Comment on above: Order Comment: Speci men Type: BLOOD SPECIMENOrdering Facility: [facility] Address: [address] [place] [address] Performed By: #### 5 8410-2 ####[facility] LABORATORYCLIA [id number] [address] STATES [facility] Hematocrit (Bld) [Volume fraction] 25.6 % Low 39.0-51.0 [facility] Comment on above: Order Comment: Speci men Type: BLOOD SPECIMENOrdering Facility: [facility] Address: [address] [place] [address] Performed By: #### 5 8410-2 ####[facility]ORATORYCLIA [id number] [address] [place] Hemoglobin (Bld) [Mass/Vol] 8.6 g/dL Low 13.0-17.0 [facility] Comment on above: Order Comment: Speci men Type: BLOOD SPECIMENOrdering Facility: [facility] Address: [address] [place] [address] Performed By: #### 5 8410-2 ####[facility]ORATORYCLIA [id number] [address] [place] MCH (RBC) [Entitic mass] 29.7 pg Normal 26.0-34.0 [facility] Comment on above: Order Comment: Speci men Type: BLOOD SPECIMENOrdering Facility: [facility] Address: [address] [place] [address] Performed By: #### 5 8410-2 ####[facility]ORATORYCLIA [id number] [address] STATES [facility] MCHC (RBC) [Mass/Vol] 33.6 g/dL Normal 30.5-36.0 [facility] Comment on above: Order Comment: Speci men Type: BLOOD SPECIMENOrdering Facility: [facility] Address: [address] [place] [address] Performed By: #### 5 8410-2 ####[facility]ORATORYCLIA [id number] [address] [place] MCV (RBC) [Entitic vol] 88.3 fL Normal 80.0-100.0 [facility] Comment on above: Order Comment: Speci men Type: BLOOD SPECIMENOrdering Facility: [facility] Address: [address] [place] [address] Performed By: #### 5 8410-2 ####[facility]ORATORYCLIA [id number] [address] [place] Nucleated RBC (Bld) [#/Vol] 10*3/uL Normal <0.01 [facility] Comment on above: Order Comment: Speci men Type: BLOOD SPECIMENOrdering Facility: [facility] Address: [address] [place] [address] Performed By: #### 5 8410-2 ####[facility]ORATORYCLIA [id number] [address] [place] Platelet mean volume (Bld) [Entitic vol] 10.6 fL Normal 9.0-12.7 [facility] Comment on above: Order Comment: Speci men Type: BLOOD SPECIMENOrdering Facility: [facility] Address: [address] [place] [address] Performed By: #### 5 8410-2 ####[facility]ORATORYCLIA [id number] [address] [place] Platelets (Bld) [#/Vol] 261 10*3/uL Normal 150-400 [facility] Comment on above: Order Comment: Speci men Type: BLOOD SPECIMENOrdering Facility: [facility] Address: [address] [place] [address] Performed By: #### 5 8410-2 ####[facility]ORATORYCLIA [id number] [address] [place] RBC (Bld) [#/Vol] 2.90 10*6/uL Low 4.20-6.00 [facility] Comment on above: Order Comment: Speci men Type: BLOOD SPECIMENOrdering Facility: [facility] Address: [address] [place] [address] Performed By: #### 5 8410-2 ####[facility]ORATORYCLIA [id number] [address] [place] WBC (Bld) [#/Vol] 17.38 10*3/uL High 3.70-11.00 [facility] Comment on above: Order Comment: Speci men Type: BLOOD SPECIMENOrdering Facility: [facility] Address: [address] [place] [address] Performed By: #### 5 8410-2 ####[facility]ORATORYCLIA [id number] [address] OF [facility] Erythrocyte distribution width (RBC) [Ratio] 13.2 % Normal 11.5-15.0 [facility] Comment on above: Order Comment: Speci men Type: BLOOD SPECIMENOrdering Facility: [facility] Address: [address] [place] [address] Performed By: #### 5 8410-2 ####[facility]ORATORYCLIA [id number] [address] Hematocrit (Bld) [Volume fraction] 26.4 % Low 39.0-51.0 [facility] Comment on above: Order Comment: Speci men Type: BLOOD SPECIMENOrdering Facility: [facility] Address: [address] [place] [address] Performed By: #### 5 8410-2 ####[facility]ORATORYCLIA [id number] [address] Hemoglobin (Bld) [Mass/Vol] 8.7 g/dL Low 13.0-17.0 [facility] Comment on above: Order Comment: Speci men Type: BLOOD SPECIMENOrdering Facility: [facility] Address: [address] [place] [address] Performed By: #### 5 8410-2 ####[facility]ORATORYCLIA [id number] [address] MCH (RBC) [Entitic mass] 29.2 pg Normal 26.0-34.0 [facility] Comment on above: Order Comment: Speci men Type: BLOOD SPECIMENOrdering Facility: [facility] Address: [address] [place] [address] Performed By: #### 5 8410-2 ####[facility]ORATORYCLIA [id number] [address] MCHC (RBC) [Mass/Vol] 33.0 g/dL Normal 30.5-36.0 [facility] Comment on above: Order Comment: Speci men Type: BLOOD SPECIMENOrdering Facility: [facility] Address: [address] [place] [address] Performed By: #### 5 8410-2 ####[facility]ORATORYCLIA [id number] [address] OF [facility] MCV (RBC) [Entitic vol] 88.6 fL Normal 80.0-100.0 [facility] Comment on above: Order Comment: Speci men Type: BLOOD SPECIMENOrdering Facility: [facility] Address: [address] [place] [address] Performed By: #### 5 8410-2 ####[facility]ORATORYCLIA [id number] [address] Nucleated RBC (Bld) [#/Vol] 10*3/uL Normal <0.01 [facility] Comment on above: Order Comment: Speci men Type: BLOOD SPECIMENOrdering Facility: [facility] Address: [address] [place], [place] [address] Performed By: #### 5 8410-2 ####[facility]ORATORYCLIA [id number] [address] OF PRECIOUS Platelet mean volume (Bld) [Entitic vol] 10.4 fL Normal 9.0-12.7 [facility] Comment on above: Order Comment: Speci men Type: BLOOD SPECIMENOrdering Facility: [facility] Address: [address] [place] [address] Performed By: #### 5 8410-2 ####[facility]ORATORYCLIA [id number] [address] [place] Platelets (Bld) [#/Vol] 254 10*3/uL Normal 150-400 [facility] Comment on above: Order Comment: Speci men Type: BLOOD SPECIMENOrdering Facility: [facility] Address: [address] [place] [address] Performed By: #### 5 8410-2 ####[facility]ORATORYCLIA [id number] [place] [address] [place] RBC (Bld) [#/Vol] 2.98 10*6/uL Low 4.20-6.00 [facility] Comment on above: Order Comment: Speci men Type: BLOOD SPECIMENOrdering Facility: [facility] Address: [address] [place] [address] Performed By: #### 5 8410-2 ####[facility]ORATORYCLIA [id number] [place] [address] [place] WBC (Bld) [#/Vol] 18.15 10*3/uL High 3.70-11.00 [facility] Comment on above: Order Comment: Speci men Type: BLOOD SPECIMENOrdering Facility: [facility] Address: [address] [place] [address] Performed By: #### 5 8410-2 ####[facility]ORATORYCLIA [id number] [address] [place] CNPNon 02-29-2024 CNPN Normal [facility] ECG COMPLETEon 02-29-2024 ECG COMPLETE Normal [facility] Fibrinogen PPP-mCncon 2024 Fibrinogen Coag (PPP) [Mass/Vol] 423 mg/dL High 200-400 [facility] Comment on above: Order Comment: Speci men Type: BLOOD SPECIMENOrdering Facility: [facility] Address: [address] [place] [address] Performed By: #### 3 255-7, 42643-9, 23192-8 ####[facility]ORATORYCLIA [id number] [address] [place] Hepatic function 2000 panelo n 02-29-2024 Albumin [Mass/Vol] 3.1 g/dL Low 3.9-4.9 [facility] Comment on above: Order Comment: Speci men Type: BLOOD SPECIMENOrdering Facility: [facility] Address: [address] [place] [address] Performed By: #### 1 9123-9, 70613-5, 07409-6 ####[facility]ORATORYCLIA [id number] [place] [address] [place] ALP [Catalytic activity/Vol] 63 U/L Normal 38-113 [facility] Comment on above: Order Comment: Speci men Type: BLOOD SPECIMENOrdering Facility: [facility] Address: [address] [place] [address] Performed By: #### 1 9123-9, 16593-0, 41396-3 ####[facility]ORATORYCLIA [id number] [address] [place] ALT With P-5'-P [Catalytic activity/Vol] 15 U/L Normal 10-54 [facility] Comment on above: Order Comment: Speci men Type: BLOOD SPECIMENOrdering Facility: [facility] Address: [address] [place] [address] Performed By: #### 1 9123-9, 53451-5, 95558-6 ####[facility]ORATORYCLIA [id number] [address] [place] AST With P-5'-P [Catalytic activity/Vol] 13 U/L Low 14-40 [facility] Comment on above: Order Comment: Speci men Type: BLOOD SPECIMENOrdering Facility: [facility] Address: [address] [place] [address] Performed By: #### 1 9123-9, 89293-9, 97642-0 ####[facility]ORATORYCLIA [id number] [place] [address] [place] Bilirubin [Mass/Vol] 0.4 mg/dL Normal 0.2-1.3 [facility] Comment on above: Order Comment: Speci men Type: BLOOD SPECIMENOrdering Facility: [facility] Address: [address] [place] [address] Performed By: #### 1 9123-9, 49884-1, 20462-3 ####[facility]ORATORYCLIA [id number] [address] [place] Bilirubin.conjugated [Mass/Vol] 0.1 mg/dL Normal <0.3 [facility] Comment on above: Order Comment: Speci men Type: BLOOD SPECIMENOrdering Facility: [facility] Address: [address] [place] [address] Performed By: #### 1 9123-9, 08930-4, 34518-7 ####[facility]ORATORYCLIA [id number] [place] [address] [place] Protein [Mass/Vol] 4.8 g/dL Low 6.3-8.0 [facility] Comment on above: Order Comment: Speci men Type: BLOOD SPECIMENOrdering Facility: [facility] Address: [address] [place] [address] Performed By: #### 1 9123-9, 50436-3, 59296-7 ####[facility]ORATORYCLIA [id number] [place] [address] [place] Magnesium SerPl-mCncon 02-28 Magnesium [Mass/Vol] 2.0 mg/dL Normal 1.7-2.3 [facility] Comment on above: Order Comment: Rachid sanchez Type: BLOOD SPECIMENOrdering Facility: [facility] Address: [address] [place] [address] Performed By: #### 1 9123-9, 59535-6, 43486-1 ####[facility]ORATORYCLIA [id number] [place] [address] [place] NUTRITIONon 02-29-2024 NUTRITION Normal [facility] PT panel Coag (PPP)on 2024 INR Coag (PPP) [Relative time] 1.1 {INR} Normal 0.9-1.3 [facility] Comment on above: Order Comment: Rachid sanchez Type: BLOOD SPECIMENOrdering Facility: [facility] Address: [address] [place] [address] Result Comment: Lilly min K Antagonist (VKA) Therapeutic Range: INR 2 to 3 (Target INR of 2.5)Note: For patients treated with VKA drugs, such as warfarin, the [employer] 2012 Guideline recommends a therapeutic INR range of 2 to 3 (target INR of 2.5). This recommendation includes high-risk patients with antiphospholipid syndrome with previous arterial or venous thromboembolism, current-generation mechanical or bioprosthetic aortic heart valve replacement.Note: Patients with mechanical aortic valve replacement and additional risk factors for thromboembolic events (atrial fibrillation, previous thromboembolism, LV dysfunction, hypercoagulable conditions) or an older generation mechanical AVR (i.e., ball in-Cage) or any mechanical MVR should have a INR therapeutic range of 2.5 to 3.5 (target INR of 3).Trisha GH, et al. Chest 2012, 141:7S-47SNishimura RA, et al. [facility] 2017, 70: 252-289 Performed By: #### 3 255-7, 39885-9, 10020-2 ####[facility]ORATORYCLIA [id number] [address] [place] PT Coag (PPP) [Time] 12.4 s Normal 9.7-13.0 [facility] Comment on above: Order Comment: Rachid sanchez Type: BLOOD SPECIMENOrdering Facility: [facility] Address: [address] [place] [address] Performed By: #### 3 255-7, 15956-0, 29546-8 ####[facility] LABORATORYCLIA [id number] [address] THERAPY NTon 02-29-2024 THERAPY NT Normal [facility] THERAPY NT Normal [facility] XR CHEST 1V FRONTALon 2024 XR CHEST 1V FRONTAL Normal [facility] XR CHEST 1V FRONTAL Normal [facility] aPTT PPPon 02-29-2024 aPTT Coag (PPP) [Time] 31.6 s Normal 23.0-32.4 [facility] Comment on above: Order Comment: Speci men Type: BLOOD SPECIMENOrdering Facility: [facility] Address: [address] [place] [address] Performed By: #### 3 255-7, 05826-8, 05620-8 ####[facility]ORATORYCLIA [id number] [address] OF [facility] ALLIED HEALTHon 02-28-2024 ALLIED HEALTH Normal [facility] ANES POSTPROC EVALon 025 ANES POSTPROC EVAL Normal [facility] ANES PRE-OPon 02-28-2024 ANES PRE-OP Normal [facility] ARTERIAL BLOOD GASESon 02-27 Base deficit (BldA) [Moles/Vol] -2 mmol/L Normal -2-0 [facility] Comment on above: Order Comment: Speci men Type: ARTERIAL BLOOD SPECIMENOrdering Facility: [facility] Address: [address] [place] [address] Performed By: #### A LLBG ####[facility] LABORATORYCLIA [id number] [address] Body temperature 97.52 [degF] Normal [facility] Comment on above: Order Comment: Speci men Type: ARTERIAL BLOOD SPECIMENOrdering Facility: [facility] Address: [address] [place] [address] Performed By: #### A LLBG ####[facility]ORATORYCLIA [id number] [address] OF [facility] Calcium.ionized (BldV) [Mass/Vol] 1.33 mmol/L High 1.08-1.30 [facility] Comment on above: Order Comment: Speci men Type: ARTERIAL BLOOD SPECIMENOrdering Facility: [facility] Address: [address] [place] [address] Performed By: #### A LLBG ####[facility]ORATORYCLIA [id number] [address] Calcium.ionized adjusted to pH 7.4 (BldA) [Moles/Vol] 1.28 mmol/L Normal 1.08-1.30 [facility] Comment on above: Order Comment: Speci men Type: ARTERIAL BLOOD SPECIMENOrdering Facility: [facility] Address: [address] [place] [address] Performed By: #### A LLBG ####[facility]ORATORYCLIA [id number] [address] Carboxyhemoglobin (BldA) [Mass fraction] 0.7 % Normal 0.0-2.0 [facility] Comment on above: Order Comment: Speci men Type: ARTERIAL BLOOD SPECIMENOrdering Facility: [facility] Address: [address] [place] [address] Result Comment: Carb oxyhemoglobin Reference Range for Smokers: 2.0-8.0% Performed By: #### A LLBG ####[facility]ORATORYCLIA [id number] [address] STATES OF [facility] Chloride [Moles/Vol] 111 mmol/L High 97-105 [facility] Comment on above: Order Comment: Speci men Type: ARTERIAL BLOOD SPECIMENOrdering Facility: [facility] Address: [address] [place] [address] Performed By: #### A LLBG ####[facility]ORATORYCLIA [id number] [address] OF PRECIOUS CO2 (Bld) [Partial pressure] 45 mm Hg Normal 36-46 [facility] Comment on above: Order Comment: Speci men Type: ARTERIAL BLOOD SPECIMENOrdering Facility: [facility] Address: [address] [place] [address] Performed By: #### A LLBG ####[facility]ORATORYCLIA [id number] [address] CO2 adjusted to patient's actual temperature (Bld) [Partial pressure] 44 mmHg Normal 36-46 [facility] Comment on above: Order Comment: Speci men Type: ARTERIAL BLOOD SPECIMENOrdering Facility: [facility] Address: [address] [place] [address] Performed By: #### A LLBG ####[facility]ORATORYCLIA [id number] [address] OF PRECIOUS Glucose [Mass/Vol] 125 mg/dL High 60-105 [facility] Comment on above: Order Comment: Speci men Type: ARTERIAL BLOOD SPECIMENOrdering Facility: [facility] Address: [address] [place] [address] Performed By: #### A LLBG ####[facility]ORATORYCLIA [id number] [address] [place] HCO3 (Bld) [Moles/Vol] 23 mmol/L Normal 22-26 [facility] Comment on above: Order Comment: Speci men Type: ARTERIAL BLOOD SPECIMENOrdering Facility: [facility] Address: [address] [place] [address] Performed By: #### A LLBG ####[facility]ORATORYCLIA [id number] [address] Hematocrit (Bld) [Volume fraction] 32.5 % Low 39.0-51.0 [facility] Comment on above: Order Comment: Speci men Type: ARTERIAL BLOOD SPECIMENOrdering Facility: [facility] Address: [address] [place] [address] Performed By: #### A LLBG ####[facility]ORATORYCLIA [id number] [address] [place] Hemoglobin (Bld) [Mass/Vol] 10.5 g/dL Low 13.0-17.0 [facility] Comment on above: Order Comment: Speci men Type: ARTERIAL BLOOD SPECIMENOrdering Facility: [facility] Address: [facility] [place] [address] Performed By: #### A LLBG ####[facility] LABORATORYCLIA [id number] [address] STATES OF [facility] Lactate [Moles/Vol] 1.5 mmol/L Normal 0.5-2.2 [facility] Comment on above: Order Comment: Speci men Type: ARTERIAL BLOOD SPECIMENOrdering Facility: [facility] Address: [address] [place] [address] Performed By: #### A LLBG ####[facility]ORATORYCLIA [id number] [address] Methemoglobin (Bld) [Mass fraction] 0.8 % Normal 0.0-1.5 [facility] Comment on above: Order Comment: Speci men Type: ARTERIAL BLOOD SPECIMENOrdering Facility: [facility] Address: [address] [place] [address] Performed By: #### A LLBG ####[facility]ORATORYCLIA [id number] [address] O2 THERAPY VENT=Ventilator Normal [facility] Comment on above: Order Comment: Speci men Type: ARTERIAL BLOOD SPECIMENOrdering Facility: [facility] Address: [address] [place] [address] Performed By: #### A LLBG ####[facility]ORATORYCLIA [id number] [address] Oxygen (Bld) [Partial pressure] 174 mm Hg High 85-95 [facility] Comment on above: Order Comment: Speci men Type: ARTERIAL BLOOD SPECIMENOrdering Facility: [facility] Address: [address] [place] [address] Performed By: #### A LLBG ####[facility] LABORATORYCLIA [id number] [place] [address] [place] Oxygen adjusted to patient's actual temperature (Bld) [Partial pressure] 171 mmHg High 85-95 [facility] Comment on above: Order Comment: Speci men Type: ARTERIAL BLOOD SPECIMENOrdering Facility: [facility] Address: [address] [place] [address] Performed By: #### A LLBG ####[facility]ORATORYCLIA [id number] [address] [place] Oxyhemoglobin (BldA) [Mass fraction] 97 % Normal 95-98 [facility] Comment on above: Order Comment: Speci men Type: ARTERIAL BLOOD SPECIMENOrdering Facility: [facility] Address: [address] [place] [address] Performed By: #### A LLBG ####[facility]ORATORYCLIA [id number] [place] [address] [place] pH (Bld) 7.34 [pH] Low 7.35-7.45 [facility] Comment on above: Order Comment: Speci men Type: ARTERIAL BLOOD SPECIMENOrdering Facility: [facility] Address: [address] [place] [address] Performed By: #### A LLBG ####[facility] LABORATORYCLIA [id number] [address] STATES [facility] pH adjusted to patient's actual temperature (Bld) 7.34 Low 7.35-7.45 [facility] Comment on above: Order Comment: Speci men Type: ARTERIAL BLOOD SPECIMENOrdering Facility: [facility] Address: [address] [place] [address] Performed By: #### A LLBG ####[facility] LABORATORYCLIA [id number] [place] [address] [place] Potassium [Moles/Vol] 3.8 mmol/L Normal 3.5-5.0 [facility] Comment on above: Order Comment: Speci men Type: ARTERIAL BLOOD SPECIMENOrdering Facility: [facility] Address: [address] [place] [address] Performed By: #### A LLBG ####[facility]ORATORYCLIA [id number] [address] STATES OF [facility] Bas Metab 2000 Pnl SerPlon 0 02-28-2024 Sodium [Moles/Vol] 141 mmol/L Normal 136-144 [facility] Comment on above: Order Comment: Speci men Type: BLOOD SPECIMENOrdering Facility: [facility] Address: [address] [place] [address] Performed By: #### 1 9123-9, 35428-0 ####[facility]ORATORYCLIA [id number] [address] OF [facility] Order Comment: Speci men Type: ARTERIAL BLOOD SPECIMENOrdering Facility: [facility] Address: [address] [place] [address] Performed By: #### A LLBG ####[facility]ORATORYCLIA [id number] [address] OF [place]CI[place] Basic metabolic 2000 panelon 02-28-2024 Anion gap [Moles/Vol] 8 mmol/L Normal 8-15 [facility] Comment on above: Order Comment: Speci men Type: BLOOD SPECIMENOrdering Facility: [facility] Address: [address] [place] [address] Performed By: #### 1 9123-9, 67509-5 ####[facility] LABORATORYCLIA [id number] [address] STATES OF [place] Calcium [Mass/Vol] 8.4 mg/dL Low 8.5-10.2 [facility] Comment on above: Order Comment: Speci men Type: BLOOD SPECIMENOrdering Facility: [facility] Address: [address] [place] [address] Performed By: #### 1 9123-9, 26970-3 ####[facility] LABORATORYCLIA [id number] [address] STATES OF [facility] Chloride [Moles/Vol] 110 mmol/L High 98-107 [facility] Comment on above: Order Comment: Speci men Type: BLOOD SPECIMENOrdering Facility: [facility] Address: [address] [place] [address] Performed By: #### 1 9123-9, 07697-2 ####[facility] LABORATORYCLIA [id number] [place] [id number] [place] CO2 [Moles/Vol] 23 mmol/L Normal 22-30 [facility] Comment on above: Order Comment: Speci men Type: BLOOD SPECIMENOrdering Facility: [facility] Address: [address] [place] [address] Performed By: #### 1 91239, 63231-8 ####[facility] LABORATORYCLIA [id number] [place] [id number] [place] Creatinine [Mass/Vol] 0.95 mg/dL Normal 0.73-1.22 [facility] Center Comment on above: Order Comment: Speci men Type: BLOOD SPECIMENOrdering Facility: [facility] Address: [address] [place] [address] Performed By: #### 1 91239, 57837-0 ####[facility] [id number] [address] OF [facility] Creatinine and Glomerular filtration rate.predicted panel (S/P/Bld) 83 mL/min/1.73m??? Normal >=60 [facility] Comment on above: Order Comment: Speci men Type: BLOOD SPECIMENOrdering Facility: [facility] Address: [address] [place] [address] Result Comment: Teri mated Glomerular Filtration Rate (eGFR) is calculated using the 2020 CKD-EPI creatinine equation. This equation utilizes serum creatinine, sex, and age as parameters. The creatinine assay has traceable calibration to isotope dilution-mass spectrometry. Refer to KDIGO guidelines for clinical interpretation. In patients with unstable renal function, e.g. those with acute kidney injury, the eGFR may not accurately reflect actual GFR. Performed By: #### 1 9123-9, 83631-7 ####[facility] LABORATORYCLIA [id number] [place] [address] [place] Glucose [Mass/Vol] 129 mg/dL High 74-99 [facility] Comment on above: Order Comment: Speci men Type: BLOOD SPECIMENOrdering Facility: [facility] Address: [address] [place] [address] Result Comment: The [place] Diabetes [employer] (ADA) provides guidance for cutoff values for fasting glucose and random glucose. The ADA defines fasting as no caloric intake for at least 8 hours. Fasting plasma glucose results between 100 to 125 mg/dL indicate increased risk for diabetes (prediabetes).Fasting plasma glucose results greater than or equal to 126 mg/dL meet the criteria for diagnosis of diabetes. In the absence of unequivocal hyperglycemia, results should be confirmed by repeat testing. In a patient with classic symptoms of hyperglycemia or hyperglycemic crisis, random plasma glucose results greater than or equal to 200 mg/dL meet the criteria for diagnosis of diabetes.Reference: Standards of Medical Care in Diabetes 2016, [place] [employer]. Diabetes Care. 2016.39(Suppl 1). Performed By: #### 1 9123-9, 71538-2 ####[facility] LABORATORYCLIA [id number] [address] STATES OF [facility] Potassium [Moles/Vol] 3.9 mmol/L Normal 3.7-5.1 [facility] Comment on above: Order Comment: Rachid [facility] Type: BLOOD SPECIMENOrdering Facility: [facility] Address: [address] [place] [address] Performed By: #### 1 9123-9, 95854-4 ####[facility] LABORATORYCLIA [id number] [address] STATES OF PRECIOUS Urea nitrogen [Mass/Vol] 16 mg/dL Normal 9-24 [facility] Comment on above: Order Comment: Speci [facility] Type: BLOOD SPECIMENOrdering Facility: [facility] Address: [address] [place] [address] Performed By: #### 1 9123-9, 94411-3 ####[facility] LABORATORYCLIA [id number] [address] STATES OF [facility] CBC panel Auto (Bld)on 02-27 Erythrocyte distribution width (RBC) [Ratio] 13.2 % Normal 11.5-15.0 [facility] Comment on above: Order Comment: Speci men Type: BLOOD SPECIMENOrdering Facility: [facility] Address: [address] [place] [address] Performed By: #### 5 8410-2 ####[facility] LABORATORYCLIA [id number] [address] Hematocrit (Bld) [Volume fraction] 30.9 % Low 39.0-51.0 [facility] Comment on above: Order Comment: Speci men Type: BLOOD SPECIMENOrdering Facility: [facility] Address: [address] [place] [address] Performed By: #### 5 8410-2 ####[facility] LABORATORYCLIA [id number] [address] OF [facility] Hemoglobin (Bld) [Mass/Vol] 10.3 g/dL Low 13.0-17.0 [facility] Comment on above: Order Comment: Speci men Type: BLOOD SPECIMENOrdering Facility: [facility] Address: [address] [place] [address] Performed By: #### 5 8410-2 ####[facility] LABORATORYCLIA [id number] [address] MCH (RBC) [Entitic mass] 29.7 pg Normal 26.0-34.0 [facility] Comment on above: Order Comment: Speci men Type: BLOOD SPECIMENOrdering Facility: [facility] Address: [address] [place] [address] Performed By: #### 5 8410-2 ####[facility] LABORATORYCLIA [id number] [address] STATES OF [place] MCHC (RBC) [Mass/Vol] 33.3 g/dL Normal 30.5-36.0 [facility] Comment on above: Order Comment: Speci men Type: BLOOD SPECIMENOrdering Facility: [facility] Address: [address] [place] [address] Performed By: #### 5 8410-2 ####[facility] LABORATORYCLIA [id number] [place] [address] [place] MCV (RBC) [Entitic vol] 89.0 fL Normal 80.0-100.0 [facility] Comment on above: Order Comment: Speci men Type: BLOOD SPECIMENOrdering Facility: [facility] Address: [address] [place] [address] Performed By: #### 5 8410-2 ####[facility] LABORATORYCLIA [id number] [place] [address] [place] Nucleated RBC (Bld) [#/Vol] 10*3/uL Normal <0.01 [facility] Comment on above: Order Comment: Speci men Type: BLOOD SPECIMENOrdering Facility: [facility] Address: [address] [place] [address] Performed By: #### 5 8410-2 ####[facility] LABORATORYCLIA [id number] [address] STATES OF [place] Platelet mean volume (Bld) [Entitic vol] 10.2 fL Normal 9.0-12.7 [facility] Comment on above: Order Comment: Speci men Type: BLOOD SPECIMENOrdering Facility: [facility] Address: [address] [place] [address] Performed By: #### 5 8410-2 ####[facility] LABORATORYCLIA [id number] [address] STATES OF [place] Platelets (Bld) [#/Vol] 203 10*3/uL Normal 150-400 [facility] Comment on above: Order Comment: Speci men Type: BLOOD SPECIMENOrdering Facility: [facility] Address: [address] [place] [address] Performed By: #### 5 8410-2 ####[facility] LABORATORYCLIA [id number] [place] [address] [place] RBC (Bld) [#/Vol] 3.47 10*6/uL Low 4.20-6.00 [facility] Comment on above: Order Comment: Speci men Type: BLOOD SPECIMENOrdering Facility: [facility] Address: [address] [place] [address] Performed By: #### 5 8410-2 ####[facility] LABORATORYCLIA [id number] [place] [address] [place] WBC (Bld) [#/Vol] 18.95 10*3/uL High 3.70-11.00 [facility] Comment on above: Order Comment: Speci men Type: BLOOD SPECIMENOrdering Facility: [facility] Address: [address] [place] [address] Performed By: #### 5 8410-2 ####[facility] LABORATORYCLIA [id number] [address] OF [facility] CONFIRM BLOOD TYPEon 025 ABO A Normal [facility] Comment on above: Order Comment: Speci men Type: BLOOD SPECIMENOrdering Facility: [facility] Address: [address] [place] [address] Performed By: #### C ONABO ####[facility] BLOOD BANKCLIA [id number] [address] [place] Rh Nom (Bld) Negative Normal [facility] Comment on above: Order Comment: Speci men Type: BLOOD SPECIMENOrdering Facility: [facility] Address: [address] [place] [address] Performed By: #### C ONABO ####[facility] BLOOD BANKCLIA [id number] [address] OF PRECIOUS CONSULTon 02-28-2024 CONSULT Normal [facility] ECG COMPLETEon 02-28-2024 ECG COMPLETE Normal [facility] Fibrinogen PPP-mCncon 2024 Fibrinogen Coag (PPP) [Mass/Vol] 200 mg/dL Normal 200-400 [facility] Comment on above: Order Comment: Speci men Type: BLOOD SPECIMENOrdering Facility: [facility] Address: [address] [place] [address] Performed By: #### 3 255-7 ####[facility] LABORATORYCLIA [id number] [address] STATES OF [place] INTRAOPERATIVE ECHO PREon 01 -09-2025 INTRAOPERATIVE ECHO PRE Normal [facility] Magnesium SerPl-mCncon 02-27 Magnesium [Mass/Vol] 2.3 mg/dL Normal 1.7-2.3 [facility] Comment on above: Order Comment: Speci laura Type: BLOOD SPECIMENOrdering Facility: [facility] Address: [address] [place] [address] Performed By: #### 1 9123-9, 55888-0 ####[facility] LABORATORYCLIA [id number] [place] [id number] [facility] OPERATIVE NOon 02-28-2024 OPERATIVE NO Normal [facility] PT panel Coag (PPP)on 2024 INR Coag (PPP) [Relative time] 1.2 {INR} Normal 0.9-1.3 [facility] Comment on above: Order Comment: Zeeshani laura Type: BLOOD SPECIMENOrdering Facility: [facility] Address: [address] [place] [address] Result Comment: Lilly min K Antagonist (VKA) Therapeutic Range: INR 2 to 3 (Target INR of 2.5)Note: For patients treated with VKA drugs, such as warfarin, the [place] [employer] 2012 Guideline recommends a therapeutic INR range of 2 to 3 (target INR of 2.5). This recommendation includes high-risk patients with antiphospholipid syndrome with previous arterial or venous thromboembolism, current-generation mechanical or bioprosthetic aortic heart valve replacement.Note: Patients with mechanical aortic valve replacement and additional risk factors for thromboembolic events (atrial fibrillation, previous thromboembolism, LV dysfunction, hypercoagulable conditions) or an older generation mechanical AVR (i.e., ball in-Cage) or any mechanical MVR should have a INR therapeutic range of 2.5 to 3.5 (target INR of 3).Trisha GH, et al. Chest 2012, 141:7S-47SNishimura RA, et al. JAC 2017, 70: 252-289 Performed By: #### 1 4979-9, 47881-7 ####[facility] LABORATORYCLIA [id number] [address] [place] PT Coag (PPP) [Time] 12.7 s Normal 9.7-13.0 [facility] Comment on above: Order Comment: Speci men Type: BLOOD SPECIMENOrdering Facility: [facility] Address: [address] [place] [address] Performed By: #### 1 4979-9, 76324-0 ####[facility] LABORATORYCLIA [id number] [place] [address] [place] Platelets Auto (Bld) [#/Vol] on 02-28-2024 Platelets (Bld) [#/Vol] 192 10*3/uL Normal 150-400 [facility] Comment on above: Order Comment: Speci men Type: BLOOD SPECIMENOrdering Facility: [facility] Address: [address] [place] [address] Performed By: #### 7 77-3 ####[facility]CLIA [id number] [place] [address] [place] THERAPY NTon 02-28-2024 THERAPY NT Normal [facility] XR CHEST 1V FRONTALon 2024 XR CHEST 1V FRONTAL Normal [facility] aPTT PPPon 02-28-2024 aPTT Coag (PPP) [Time] 46.3 s High 23.0-32.4 [facility] Comment on above: Order Comment: Speci men Type: BLOOD SPECIMENOrdering Facility: [facility] Address: [address] [place] [address] Performed By: #### 1 4979-9, 02638-0 ####[facility] LABORATORYCLIA [id number] [place] [address] [place] CNPNon 02-19-2024 CNPN Normal [facility] CNPNon 02-18-2024 CNPN Normal [facility] CNPTOUTREACHon 02-18-2024 CNPTOUTREACH Normal [facility] CNPTOUTREACHon 02-12-2024 CNPTOUTREACH Normal [facility] CNOVon 02-11-2024 CNOV Normal [facility] UA DIP, URINE (POC)on 2023 BILIRUBIN UA (POCT) Negative Negative [facility] CLARITY UA (POCT) Clear [facility] COLOR UA (POCT) Yellow [facility] GLUCOSE UA (POCT) Negative Negative mg/dL [facility] Hemoglobin Ql (U) Negative Negative [facility] Interpretation and review of laboratory results Abnormal [facility] KETONE UA (POCT) Negative Negative mg/dL [facility] LEUKOCYTES UA (POCT) Negative [facility] NITRITE UA (POCT) Negative Negative [facility] PH UA (POCT) 5.5 4.5 - 8.0 [facility] Protein Ql (U) 30 mg/dL Abnormal Negative [facility] SPECIFIC GRAVITY UA (POCT) >=1.030 1.005 - 1.030 [facility] UROBILINOGEN UA (POCT) 0.2 Anna l E.U./dL [facility] Location:[facility], [address], [place], [id number] [place] [address] POINT OF CARE [facility] NURSING PROGon 02-08-2024 NURSING PROG Normal [facility] CBC panel Auto (Bld)on 02-06 Erythrocyte distribution width (RBC) [Ratio] 13.3 % Normal 11.5-15.0 [facility] Comment on above: Order Comment: Speci men Type: BLOOD SPECIMENOrdering Facility: [facility] Address: [address] [place] [address] Performed By: #### 5 8410-2 ####[facility] LABORATORYCLIA [id number] [place] [address] [place] Hematocrit (Bld) [Volume fraction] 40.4 % Normal 39.0-51.0 [facility] Comment on above: Order Comment: Speci men Type: BLOOD SPECIMENOrdering Facility: [facility] Address: [address] [place] [address] Performed By: #### 5 8410-2 ####[facility] LABORATORYCLIA [id number] [place] [address] [place] Hemoglobin (Bld) [Mass/Vol] 13.5 g/dL Normal 13.0-17.0 [facility] Comment on above: Order Comment: Speci men Type: BLOOD SPECIMENOrdering Facility: [facility] Address: [address] [place] [address] Performed By: #### 5 8410-2 ####[facility] LABORATORYCLIA [id number] [address] MCH (RBC) [Entitic mass] 29.3 pg Normal 26.0-34.0 [facility] Comment on above: Order Comment: Speci men Type: BLOOD SPECIMENOrdering Facility: [facility] Address: [address] [place] [address] Performed By: #### 5 8410-2 ####[facility] LABORATORYCLIA [id number] [address] MCHC (RBC) [Mass/Vol] 33.4 g/dL Normal 30.5-36.0 [facility] Comment on above: Order Comment: Speci men Type: BLOOD SPECIMENOrdering Facility: [facility] Address: [address] [place] [address] Performed By: #### 5 8410-2 ####[facility] LABORATORYCLIA [id number] [address] MCV (RBC) [Entitic vol] 87.6 fL Normal 80.0-100.0 [facility] Comment on above: Order Comment: Speci men Type: BLOOD SPECIMENOrdering Facility: [facility] Address: [address] [place] [address] Performed By: #### 5 8410-2 ####[facility] LABORATORYCLIA [id number] [address] Nucleated RBC (Bld) [#/Vol] 10*3/uL Normal <0.01 [facility] Comment on above: Order Comment: Speci men Type: BLOOD SPECIMENOrdering Facility: [facility] Address: [address] [place] [address] Performed By: #### 5 8410-2 ####[facility] LABORATORYCLIA [id number] [address] Platelet mean volume (Bld) [Entitic vol] 11.0 fL Normal 9.0-12.7 [facility] Comment on above: Order Comment: Speci men Type: BLOOD SPECIMENOrdering Facility: [facility] Address: [address] [place] [address] Performed By: #### 5 8410-2 ####[facility] LABORATORYCLIA [id number] [place] [address] [place] Platelets (Bld) [#/Vol] 198 10*3/uL Normal 150-400 [facility] Comment on above: Order Comment: Speci men Type: BLOOD SPECIMENOrdering Facility: [facility] Address: [address] [place] [address] Performed By: #### 5 8410-2 ####[facility] LABORATORYCLIA [id number] [place] [address] [place] RBC (Bld) [#/Vol] 4.61 10*6/uL Normal 4.20-6.00 [facility] Comment on above: Order Comment: Speci men Type: BLOOD SPECIMENOrdering Facility: [facility] Address: [address] [place] [address] Performed By: #### 5 8410-2 ####[facility] LABORATORYCLIA [id number] [address] [place] WBC (Bld) [#/Vol] 8.49 10*3/uL Normal 3.70-11.00 [facility] Comment on above: Order Comment: Speci men Type: BLOOD SPECIMENOrdering Facility: [facility] Address: [address] [place] [address] Performed By: #### 5 8410-2 ####[facility] LABORATORYCLIA [id number] [address] STATES OF [place] CNOVon 02-07-2024 CNOV Normal [facility] CNPNon 02-07-2024 CNPN Normal [facility] Comprehensive metabolic 2000 panelon 02-07-2024 Albumin [Mass/Vol] 4.3 g/dL Normal 3.9-4.9 [facility] Comment on above: Order Comment: Speci men Type: BLOOD SPECIMENOrdering Facility: [facility] Address: [address] [place] [address] Performed By: #### 2 4323-8, 3015-04, ####[facility] LABORATORYCLIA [id number] [place] [address] [place] ALP [Catalytic activity/Vol] 93 U/L Normal 38-113 [facility] Comment on above: Order Comment: Speci men Type: BLOOD SPECIMENOrdering Facility: [facility] Address: [address] [place] [address] Performed By: #### 2 4323-8, 3015-04, ####[facility] LABORATORYCLIA [id number] [place] [address] [place] ALT With P-5'-P [Catalytic activity/Vol] 15 U/L Normal 10-54 [facility] Comment on above: Order Comment: Speci men Type: BLOOD SPECIMENOrdering Facility: [facility] Address: [address] [place] [address] Performed By: #### 2 4323-8, 3015-04, ####[facility] LABORATORYCLIA [id number] [address] STATES [facility] Anion gap [Moles/Vol] 10 mmol/L Normal 8-15 [facility] Comment on above: Order Comment: Speci men Type: BLOOD SPECIMENOrdering Facility: [facility] Address: [address] [place] [address] Performed By: #### 2 4323-8, 3, ####[facility] LABORATORYCLIA [id number] [address] [place] AST With P-5'-P [Catalytic activity/Vol] 8 U/L Low 14-40 [facility] Comment on above: Order Comment: Speci men Type: BLOOD SPECIMENOrdering Facility: [facility] Address: [address] [place] [address] Performed By: #### 2 4323-8, 3015-04, ####[facility] LABORATORYCLIA [id number] [place] [address] [place] Bilirubin [Mass/Vol] 0.3 mg/dL Normal 0.2-1.3 [facility] Comment on above: Order Comment: Speci men Type: BLOOD SPECIMENOrdering Facility: [facility] Address: [address] [place] [address] Performed By: #### 2 4323-8, 3015-04, ####[facility] LABORATORYCLIA [id number] [place] [address] [place] Calcium [Mass/Vol] 9.3 mg/dL Normal 8.5-10.2 [facility] Comment on above: Order Comment: Speci men Type: BLOOD SPECIMENOrdering Facility: [facility] Address: [address] [place] [address] Performed By: #### 2 4323-8, 3015-04, ####[facility] LABORATORYCLIA [id number] [place] [address] [place] Chloride [Moles/Vol] 104 mmol/L Normal 98-107 [facility] Comment on above: Order Comment: Speci men Type: BLOOD SPECIMENOrdering Facility: [facility] Address: [address] [place] [address] Performed By: #### 2 4323-8, 3015-04, ####[facility] LABORATORYCLIA [id number] [place] [address] [place] CO2 [Moles/Vol] 26 mmol/L Normal 22-30 [facility] Comment on above: Order Comment: Speci men Type: BLOOD SPECIMENOrdering Facility: [facility] Address: [address] [place] [address] Performed By: #### 2 4323-8, 3, ####[facility] LABORATORYCLIA [id number] [place] [address] [place] Creatinine [Mass/Vol] 1.14 mg/dL Normal 0.73-1.22 [facility] Comment on above: Order Comment: Rachid sanchez Type: BLOOD SPECIMENOrdering Facility: [facility] Address: [address] [place] [address] Performed By: #### 2 4323-8, 3015-3, ####[facility] LABORATORYCLIA [id number] [place] [id number] [place] STATES OF [facility] Creatinine and Glomerular filtration rate.predicted panel (S/P/Bld) 67 mL/min/1.73m??? Normal >=60 [facility] Comment on above: Order Comment: Rachid sanchez Type: BLOOD SPECIMENOrdering Facility: [facility] Address: [address] [place] [address] Result Comment: Teri mated Glomerular Filtration Rate (eGFR) is calculated using the 2020 CKD-EPI creatinine equation. This equation utilizes serum creatinine, sex, and age as parameters. The creatinine assay has traceable calibration to isotope dilution-mass spectrometry. Refer to KDIGO guidelines for clinical interpretation. In patients with unstable renal function, e.g. those with acute kidney injury, the eGFR may not accurately reflect actual GFR. Performed By: #### 2 4323-8, 3, ####[facility] LABORATORYCLIA [id number] [place] [id number] [place] Glucose [Mass/Vol] 100 mg/dL High 74-99 [facility] Comment on above: Order Comment: Rachid sanchez Type: BLOOD SPECIMENOrdering Facility: [facility] Address: [address] [place] [id number] Result Comment: The [place] [employer] (ADA) provides guidance for cutoff values for fasting glucose and random glucose. The ADA defines fasting as no caloric intake for at least 8 hours. Fasting plasma glucose results between 100 to 125 mg/dL indicate increased risk for diabetes (prediabetes).Fasting plasma glucose results greater than or equal to 126 mg/dL meet the criteria for diagnosis of diabetes. In the absence of unequivocal hyperglycemia, results should be confirmed by repeat testing. In a patient with classic symptoms of hyperglycemia or hyperglycemic crisis, random plasma glucose results greater than or equal to 200 mg/dL meet the criteria for diagnosis of diabetes.Reference: Standards of Medical Care in Diabetes 2016, [place] [employer]. Diabetes Care. 2016.39(Suppl 1). Performed By: #### 2 4323-8, 3015-04, ####[facility] LABORATORYCLIA [id number] [place] [address] [place] Potassium [Moles/Vol] 4.0 mmol/L Normal 3.7-5.1 [facility] Comment on above: Order Comment: Speci men Type: BLOOD SPECIMENOrdering Facility: [facility] Address: [address] [place] [address] Performed By: #### 2 4323-8, 3015-04, ####[facility] LABORATORYCLIA [id number] [place] [address] [place] Protein [Mass/Vol] 6.5 g/dL Normal 6.3-8.0 [facility] Comment on above: Order Comment: Speci men Type: BLOOD SPECIMENOrdering Facility: [facility] Address: [address] [place] [address] Performed By: #### 2 4323-8, 3015-04, ####[facility] LABORATORYCLIA [id number] [place] [address] [place] Sodium [Moles/Vol] 140 mmol/L Normal 136-144 [facility] Comment on above: Order Comment: Speci men Type: BLOOD SPECIMENOrdering Facility: [facility] Address: [address] [place] [address] Performed By: #### 2 4323-8, 3015-04, ####[facility] LABORATORYCLIA [id number] [place] [address] [place] Urea nitrogen [Mass/Vol] 12 mg/dL Normal 9-24 [facility] Comment on above: Order Comment: Speci men Type: BLOOD SPECIMENOrdering Facility: [facility] Address: [address] [place] [address] Performed By: #### 2 4323-8, 3, ####[facility] LABORATORYCLIA [id number] [place], [place] [address] [place] [address] HbA1c (Bld)on 02-07-2024 Average glucose Estimated from glycated hemoglobin (Bld) [Mass/Vol] 111 mg/dL Normal [facility] Comment on above: Order Comment: Speci [facility] Type: BLOOD SPECIMENOrdering Facility: [facility] Address: [address] [place] [address] Result Comment: eAG: (Estimated average glucose) is a calculated value from HgbA1c and is public relations representative of the average blood glucose level in the last 2-3 month period. Performed By: #### 5 5454-3 ####[facility] LABCLIA [id number] [address] HbA1c (Bld) [Mass fraction] 5.5 % Normal 4.3-5.6 [facility] Comment on above: Order Comment: Rachid [facility] Type: BLOOD SPECIMENOrdering Facility: [facility] Address: [address] [place] [address] Result Comment: Amer [place] Diabetes Association guidelines indicate that patients with HgbA1c in the range 5.7-6.4% are at increased risk for development of diabetes, and intervention by lifestyle modification may be beneficial. HgbA1c greater or equal to 6.5% is considered diagnostic of diabetes. Performed By: #### 5 5454-3 ####[facility] LABCLIA [id number] [address] [place] Magnesium SerPl-mCncon 02-06 Magnesium [Mass/Vol] 2.0 mg/dL Normal 1.7-2.3 [facility] Comment on above: Order Comment: Rachid [facility] Type: BLOOD SPECIMENOrdering Facility: [facility] Address: [address] [place] [address] Performed By: #### 2 4323-8, 3015-3, ####[facility] LABORATORYCLIA [id number] [place] [address] [place] PT panel Coag (PPP)on 2023 INR Coag (PPP) [Relative time] 1.0 {INR} Normal 0.9-1.3 [facility] Comment on above: Order Comment: Rachid sanchez Type: BLOOD SPECIMENOrdering Facility: [facility] Address: [address] [place], [place] [address] Result Comment: Lilly min K Antagonist (VKA) Therapeutic Range: INR 2 to 3 (Target INR of 2.5)Note: For patients treated with VKA drugs, such as warfarin, the [employer] 2012 Guideline recommends a therapeutic INR range of 2 to 3 (target INR of 2.5). This recommendation includes high-risk patients with antiphospholipid syndrome with previous arterial or venous thromboembolism, current-generation mechanical or bioprosthetic aortic heart valve replacement.Note: Patients with mechanical aortic valve replacement and additional risk factors for thromboembolic events (atrial fibrillation, previous thromboembolism, LV dysfunction, hypercoagulable conditions) or an older generation mechanical AVR (i.e., ball in-Cage) or any mechanical MVR should have a INR therapeutic range of 2.5 to 3.5 (target INR of 3).Trisha GH, et al. Chest 2012, 141:7S-47SNishimura RA, et al. [facility] 2017, 70: 252-289 Performed By: #### 3 4528-0 ####[facility] LABORATORYCLIA [id number] [address] [place] PT Coag (PPP) [Time] 10.9 s Normal 9.7-13.0 [facility] Comment on above: Order Comment: Rachid sanchez Type: BLOOD SPECIMENOrdering Facility: [facility] Address: [address] [id number] Performed By: #### 3 4528-0 ####[facility] LABORATORYCLIA [id number] [address] [place] STAPHYLOCOCCUS AUREUS AND MR SA SCREEN, PCR, NASALon 02-07-2024 S. aureus and MRSA panel HARIS+probe (Nose) Not detected Normal Not Detected [facility] Comment on above: Order Comment: Rachid sanchez Type: SWABOrdering Facility: [facility] Address: [address] [place] [address] Performed By: #### S APCR ####[facility] LABORATORYCLIA [id number] [address] STAPHYLOCOCCUS AUREUS & MRSA SCREEN, PCR, NASALon 02-07-2024 Interpretation and review of laboratory results Normal [facility] S. aureus and MRSA panel HARIS+probe (Nose) Not detected Not Detected [facility] TSH SerPl-aCncon 02-07-2024 TSH Qn 2.040 m[IU]/L Normal 0.270-4.20 0 [facility] Comment on above: Order Comment: Speci men Type: BLOOD SPECIMENOrdering Facility: [facility] Address: [address] [place] [address] Performed By: #### 2 4323-8, 3016-3, 79807-1 ####[facility] LABORATORYCLIA [id number] [address] OF [facility] TYPE AND SCREEN,30 DAYon ABO A Normal [facility] Comment on above: Order Comment: Speci men Type: BLOOD SPECIMENOrdering Facility: [facility] Address: [address] [place] [address] Performed By: #### T SCR30 ####[facility] BLOOD BANKCLIA [id number] [address] [place] Rh Nom (Bld) Negative Normal [facility] Comment on above: Order Comment: Speci men Type: BLOOD SPECIMENOrdering Facility: [facility] Address: [address] [place] [address] Performed By: #### T SCR30 ####[facility] BLOOD BANKCLIA [id number] [address] [place] Urinalysis complete panel (U )on 02-07-2024 Bilirubin Ql (U) Negative Normal Negative [facility] Comment on above: Order Comment: Speci men Type: URINE SPECIMENOrdering Facility: [facility] Address: [address] [place] [address] Performed By: #### 2 4356-8 ####[facility]ATORYCLIA [id number] [address] [place] Clarity (Unsp spec) Clear Normal Clear [facility] Comment on above: Order Comment: Speci men Type: URINE SPECIMENOrdering Facility: [facility] Address: [address] [place] [address] Performed By: #### 2 4356-8 ####[facility]ORATORYCLIA [id number] [address] OF [facility] Color (U) Light Yellow Normal yellow [facility] Comment on above: Order Comment: Speci men Type: URINE SPECIMENOrdering Facility: [facility] Address: [address] [place] [address] Performed By: #### 2 4356-8 ####[facility] LABORATORYCLIA [id number] [address] [place] Glucose Test strip (U) [Mass/Vol] Negative Normal Trace, Negative [facility] Comment on above: Order Comment: Speci men Type: URINE SPECIMENOrdering Facility: [facility] Address: [address] [place] [address] Performed By: #### 2 4356-8 ####[facility] LABORATORYCLIA [id number] [place] [address] [place] Hemoglobin Ql (U) Negative Normal Negative, Trace [facility] Comment on above: Order Comment: Speci men Type: URINE SPECIMENOrdering Facility: [facility] Address: [address] [place] [address] Performed By: #### 2 4356-8 ####[facility]ATORYCLIA [id number] [address] [place] Ketones Ql (U) Negative Normal Negative, Trace [facility] Comment on above: Order Comment: Speci men Type: URINE SPECIMENOrdering Facility: [facility] Address: [facility] [place] [address] Performed By: #### 2 4356-8 ####[facility]ATORYCLIA [id number] [address] Leukocyte esterase Test strip Ql (U) Negative Normal Negative, 25 Melida/uL [facility] Comment on above: Order Comment: Speci men Type: URINE SPECIMENOrdering Facility: [facility] Address: [address] [place] [address] Performed By: #### 2 4356-8 ####[facility] LABORATORYCLIA [id number] [address] [place] Nitrite Ql (U) Negative Normal Negative [facility] Comment on above: Order Comment: Speci men Type: URINE SPECIMENOrdering Facility: [facility] Address: [address] [place] [address] Performed By: #### 2 4356-8 ####[facility] LABORATORYCLIA [id number] [address] [place] pH (U) 6.0 [pH] Normal 5.0-8.0 [facility] Comment on above: Order Comment: Speci men Type: URINE SPECIMENOrdering Facility: [facility] Address: [address] [place] [address] Performed By: #### 2 4356-8 ####[facility] LABORATORYCLIA [id number] [address] STATES [facility] Protein (U) [Mass/Vol] Negative Normal Trace , Negative [facility] Comment on above: Order Comment: Speci men Type: URINE SPECIMENOrdering Facility: [facility] Address: [address] [place] [address] Performed By: #### 2 4356-8 ####[facility] LABORATORYCLIA [id number] [address] [place] RBC LM.HPF (Urine sed) [#/Area] 0-3 /HPF Normal 0-3 /HPF [facility] Comment on above: Order Comment: Speci men Type: URINE SPECIMENOrdering Facility: [facility] Address: [address] [place] [address] Performed By: #### 2 4356-8 ####[facility] LABORATORYCLIA [id number] [place] [address] [place] Specific gravity (U) [Rel density] 1.014 Normal 1.005-1.03 0 [facility] Comment on above: Order Comment: Speci men Type: URINE SPECIMENOrdering Facility: [facility] Address: [address] [place] [address] Performed By: #### 2 4356-8 ####[facility] LABORATORYCLIA [id number] [place] [id number] [place] Urobilinogen Ql (U) Normal Normal Normal [facility] Comment on above: Order Comment: Speci men Type: URINE SPECIMENOrdering Facility: [facility] Address: [address] [place] [address] Performed By: #### 2 4356-8 ####[facility] HOSPITALIA [id number] [place] [address] [place] WBC LM.HPF (Urine sed) [#/Area] 0-5 /HPF Normal 0-5 /HPF [facility] Comment on above: Order Comment: Speci men Type: URINE SPECIMENOrdering Facility: [facility] Address: [address] [place] [address] Performed By: #### 2 4356-8 ####[facility] HOSPITALIA [id number] [place] [address] [place] CNOVon 02-06-2024 CNOV Normal [facility] Ferritin SerPl-mCncon 2023 Ferritin [Mass/Vol] 51.3 ng/mL Normal 30.3-565.7 [facility] Comment on above: Order Comment: Speci men Type: BLOOD SPECIMENOrdering Facility: [facility] Address: [address] [place] [address] Performed By: #### 5 0190-8, LIPNF, 2276-4 ####[facility] LABCLIA [id number] [facility] [id number] [address] [place] Iron and Iron binding capaci ty panelon 02-06-2024 Iron [Mass/Vol] 75 ug/dL Normal 41-186 [facility] Comment on above: Order Comment: Speci men Type: BLOOD SPECIMENOrdering Facility: [facility] Address: [address] [place] [address] Performed By: #### 5 0190-8, LIPNF, 2275-4 ####[facility] LABCLIA [id number] [place] [address] [place] Iron binding capacity [Mass/Vol] 281 ug/dL Normal 232-386 [facility] Comment on above: Order Comment: Speci men Type: BLOOD SPECIMENOrdering Facility: [facility] Address: [address] [place] [address] Performed By: #### 5 0190-8, LIPNF, 2275- ####[facility] LABIA [id number] [place] [address] [place] Iron/TIBC [Molar ratio] 26.7 % Normal 15.0-57.0 [facility] Comment on above: Order Comment: Speci men Type: BLOOD SPECIMENOrdering Facility: [facility] Address: [address] [place] [address] Performed By: #### 5 0190-8, LIPNF, 2275-05 ####[facility] LABCLIA [id number] [place] [address] [place] LIPID PANEL, NONFASTINGon Cholesterol [Mass/Vol] 154 mg/dL Normal <200 [facility] Comment on above: Order Comment: Speci men Type: BLOOD SPECIMENOrdering Facility: [facility] Address: [address] [place] [address] Result Comment: <200 mg/dL, Desirable 200-239 mg/dL, Borderline high>239 mg/dL, High Performed By: #### 5 0190-8, LIPNF, 2275- ####[facility] LABCLIA [id number] [place] [address] [place] HDL CHOLESTEROL, NF 43 mg/dL Normal >39 [facility] Comment on above: Order Comment: Speci men Type: BLOOD SPECIMENOrdering Facility: [facility] Address: [address] [place] [address] Result Comment: 40-5 9 mg/dL, Acceptable>59 mg/dL, High: Negative risk factor for coronary heart disease<40 mg/dL, Low: Positive risk factor for coronary heart disease Performed By: #### 5 0190-8, LIPNF, 2275-4 ####[facility] LABCLIA [id number] [address] OF [facility] LDL CHOLESTEROL, NF 98 mg/dL Normal <100 [facility] Comment on above: Order Comment: Zeeshancatrina sanchez Type: BLOOD SPECIMENOrdering Facility: [facility] Address: [address] [place] [address] Result Comment: <100 mg/dL, Optimal 100-129 mg/dL, Near optimal/above optimal 130-159 mg/dL, Borderline high 160-189 mg/dL, High>189 mg/dL, Very highSecondary prevention optimal LDL Cholesterol levels are recommended to be < 70 mg/dL Performed By: #### 5 0190-8, LIPNF, 2275-4 ####[facility] LABCLIA [id number] [address] OF [facility] LDL/HDL RATIO, NF 2.28 mg/dL Normal <2.54 [facility] Comment on above: Order Comment: Rachid sanchez Type: BLOOD SPECIMENOrdering Facility: [facility] Address: [address] [place] [address] Result Comment: Refe rence:1. National Cholesterol Education Program ATP III Guideline At-A-Glance Quick Desk Reference: National Heart, Lung, and Blood [place]. National Institutes of Health. 2001: NIH Publication No. 01-3305.2. An International Atherosclerosis Society position paper: global recommendations for the management of dyslipidemia: executive summary, Atherosclerosis. 2014: 232(2):410-413. Performed By: #### 5 0190-8, LIPNF, 2275-05 ####[facility] LABCLIA [id number] [place] [address] [place] NON HDL CHOL, NF 111 mg/dL Normal <130 [facility] Comment on above: Order Comment: Speci men Type: BLOOD SPECIMENOrdering Facility: [facility] Address: [address] [place] [address] Result Comment: <130 mg/dL, Optimal 130-159 mg/dL, Near optimal/above optimal 160-189 mg/dL, Borderline high 190-219 mg/dL, High>219 mg/dL, Very highSecondary prevention optimal non HDL Cholesterol levels are recommended to be <100 mg/dL Performed By: #### 5 0190-8, LIPNF, 2275-05 ####[facility] LABCLIA [id number] [place] [address] [place] T CHOL/HDL RATIO NF 3.58 mg/dL Normal <5.10 [facility] Comment on above: Order Comment: Speci men Type: BLOOD SPECIMENOrdering Facility: [facility] Address: [address] [place] [address] Performed By: #### 5 0190-8, LIPNF, 2275-05 ####[facility] LABCLIA [id number] [place] [address] [place] TRIGLYCERIDES, NF 63 mg/dL Normal <150 [facility] Comment on above: Order Comment: Speci men Type: BLOOD SPECIMENOrdering Facility: [facility] Address: [address] [place] [address] Result Comment: <150 mg/dL, Normal 150-199 mg/dL, Borderline high 200-499 mg/dL, High>499 mg/dL, Very high Performed By: #### 5 0190-8, LIPNF, 2275-05 ####[facility] LABCLIA [id number] [place] [address] [place] VLDL CHOLESTEROL, NF 13 mg/dL Normal <30 [facility] Comment on above: Order Comment: Speci men Type: BLOOD SPECIMENOrdering Facility: [facility] Address: [address] [place] [address] Performed By: #### 5 0190-8, LIPNF, 2276-4 ####[facility] LABCLIA [id number] [place] [address] [place] Urinalysis complete panel (U )on 02-06-2024 Bacteria LM.HPF (Urine sed) [#/Area] Negative Normal Negative [facility] Comment on above: Order Comment: Speci men Type: URINE SPECIMENOrdering Facility: [facility] Address: [address] [place] [address] Performed By: #### 2 4356-8 ####[facility] LABCLIA [id number] [place] [address] [place] Bilirubin Ql (U) Negative Normal Negative [facility] Comment on above: Order Comment: Speci men Type: URINE SPECIMENOrdering Facility: [facility] Address: [address] [place] [address] Performed By: #### 2 4356-8 ####[facility] LABCLIA [id number] [place] [address] [place] Clarity (Unsp spec) Clear Normal Clear [facility] Comment on above: Order Comment: Speci men Type: URINE SPECIMENOrdering Facility: [facility] Address: [address] [place] [address] Performed By: #### 2 4356-8 ####[facility] LABCLIA [id number] [place] [address] [place] Color (U) Yellow Normal Yellow [facility] Comment on above: Order Comment: Speci men Type: URINE SPECIMENOrdering Facility: [facility] Address: [address] [place] [address] Performed By: #### 2 4356-8 ####[facility] LABCLIA [id number] [place] [address] [place] Epithelial cells LM.HPF (Urine sed) [#/Area] None Seen Normal [facility] Comment on above: Order Comment: Speci men Type: URINE SPECIMENOrdering Facility: [facility] Address: [address] [place] [address] Performed By: #### 2 4356-8 ####[facility] LABCLIA [id number] [place] [address] [place] Glucose Test strip (U) [Mass/Vol] Negative Normal Negative [facility] Comment on above: Order Comment: Speci men Type: URINE SPECIMENOrdering Facility: [facility] Address: [address] [place] [address] Performed By: #### 2 4356-8 ####[facility] LABCLIA [id number] [place] [address] [place] Hemoglobin Ql (U) Negative Normal Negative [facility] Comment on above: Order Comment: Speci men Type: URINE SPECIMENOrdering Facility: [facility] Address: [address] [place] [address] Performed By: #### 2 4356-8 ####[facility] LABCLIA [id number] [place] [address] [place] Hyaline casts (Urine sed) [#/Area] 1-3 /LPF Abnormal 0 /LPF [facility] Comment on above: Order Comment: Speci men Type: URINE SPECIMENOrdering Facility: [facility] Address: [address] [place] [address] Performed By: #### 2 4356-8 ####[facility] LABCLIA [id number] [place] [address] [place] Ketones Ql (U) Negative Normal Negative [facility] Comment on above: Order Comment: Speci men Type: URINE SPECIMENOrdering Facility: [facility] Address: [address] [place], [place] [address] Performed By: #### 2 4356-8 ####[facility] LABCLIA [id number] [place] [address] [place] Leukocyte esterase Test strip Ql (U) Negative Normal Negative [facility] Comment on above: Order Comment: Speci men Type: URINE SPECIMENOrdering Facility: [facility] Address: [address] [place] [address] Performed By: #### 2 4356-8 ####[facility] LABCLIA [id number] [place] [address] [place] Nitrite Ql (U) Negative Normal Negative [facility] Comment on above: Order Comment: Speci men Type: URINE SPECIMENOrdering Facility: [facility] Address: [address] [place] [address] Performed By: #### 2 4356-8 ####[facility] LABCLIA [id number] [place] [address] [place] pH (U) 6.5 [pH] Normal <8.5 [facility] Comment on above: Order Comment: Speci men Type: URINE SPECIMENOrdering Facility: [facility] Address: [address] [place] [address] Performed By: #### 2 4356-8 ####[facility] LABCLIA [id number] [place] [address] [place] Protein (U) [Mass/Vol] Trace Abnormal Negative [facility] Comment on above: Order Comment: Speci men Type: URINE SPECIMENOrdering Facility: [facility] Address: [address] [place] [address] Performed By: #### 2 4356-8 ####[facility] LABCLIA [id number] [place] [address] [place] RBC LM.HPF (Urine sed) [#/Area] 0-2 /HPF Normal 0-2 /HPF [facility] Comment on above: Order Comment: Speci men Type: URINE SPECIMENOrdering Facility: [facility] Address: [address] [place] [address] Performed By: #### 2 4356-8 ####[facility] LABIA [id number] [place] [address] [place] Specific gravity (U) [Rel density] 1.022 Normal 1.005-1.03 0 [facility] Comment on above: Order Comment: Speci men Type: URINE SPECIMENOrdering Facility: [facility] Address: [address] [place] [address] Performed By: #### 2 4356-8 ####[facility] LABIA [id number] [place] [address] [place] Urobilinogen Ql (U) 1.0 EU/dL Normal 0.2-1.0 EU/dL [facility] Comment on above: Order Comment: Speci men Type: URINE SPECIMENOrdering Facility: [facility] Address: [address] [place] [address] Performed By: #### 2 4356-8 ####[facility] LABIA [id number] [place] [address] [place] WBC LM.HPF (Urine sed) [#/Area] 0-5 /HPF Normal 0-5 /HPF [facility] Comment on above: Order Comment: Speci men Type: URINE SPECIMENOrdering Facility: [facility] Address: [address] [place] [address] Performed By: #### 2 4356-8 ####[facility] [id number] [place] [address] [place] [address] [address] CHEST WO IVCONon 01-29-[address] CHEST WO IVCON Invalid Interpretation Code [facility] No Panel Informationon 01-28 [facility] [address] [place] [address] Test Date: 2024-01-29 Pat Name: HOMERO MEI Department: Room: Gender: Male 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 No contraindications or sensitivities were noted. Meds taken: none before testing. Current ATS/ERS acceptability and repeatability standards for spirometry met. Start of test and EOFE criteria met. Current ATS/ERS acceptability and repeatability standards for DLCO met with 2 acceptable maneuvers. DLCO is hemoglobin corrected. Hemoglobin obtained from [facility] on 01-14-24. IMPRESSION: Spirometry is normal. Elevated lung volumes (RV and/or RV/TLC) indicate air trapping. The diffusion capacity (corrected for hemoglobin) is normal. Electronically Signed On 01-29-2024 14:06:27 EST by Maribel Valiente MD ID: [id number] Name: HOMERO MEI Race: White Ht: 70.47 in Wt: 199.00 lbs Age: 78 Gender: Male : 1945 Dx: Preoperative testing_ Smoking Hx: Non-smoker Doctor: CAROLINE ORLANDO Test Date: 01/29/2024 Site: Tech: Gisell Purvis PRE-BRONCH POST-BRONCH Pre LLN Pred ULN %Pred Post %Pred %Chg SPIROMETRY FVC (L) 3.96 2.93 3.97 5.02 99 FEV1 (L) 2.74 2.13 2.94 3.70 93 FEV1/FVC 0.69 0.62 0.76 0.87 91 PEF L/s (L/sec) 7.04 5.46 7.81 10.16 90 FEF50 (L/sec) 2.49 1.79 3.92 6.04 63 FIF50 (L/sec) 5.14 FEF50/FIF50 0.48 90-100 FIVC (L) 4.06 QMF46-92 (L/sec) 1.69 0.88 2.20 4.12 76 Time (sec) 11.15 FET PEF (sec) 0.13 ALTAGRACIA (L) 0.10 Vol Extrap % (%) 2 LUNG VOLUMES TGV (L) 4.06 2.66 3.84 5.03 105 ERV (L) 0.46 1.32 35 RV (Pleth) (L) 3.60 1.99 2.60 3.22 138 SVC (L) 4.04 2.93 3.97 5.02 101 IC (L) 3.48 2.64 131 TLC (Pleth) (L) 7.55 5.84 7.14 8.44 105 RV/TLC (Pleth) (%) 48 30 38 45 126 LUNG DIFFUSION DLCOunc (ml/min/mmHg) 29.30 15.00 24.94 34.87 117 VA (L) 6.61 5.55 6.91 8.28 95 DLunc/VA (ml/min/mmHg/L) 4.43 2.52 3.72 4.92 119 DLCOcor (ml/min/mmHg) 30.38 15.00 24.94 34.87 121 DLcor/VA (ml/min/mmHg/L) 4.59 3.61 127 BHT (sec) 10.02 IVC (L) 3.92 Hgb (gm/dL) 13.40 12-18 Comments: Medications and Allergies were reviewed for possible drug interactions per policy. No contraindications or sensitivities were noted. Meds taken: none before testing. Current ATS/ERS acceptability and repeatability standards for spirometry met. Start of test and EOFE criteria met. Current ATS/ERS acceptability and repeatability standards for DLCO met with 2 acceptable maneuvers. DLCO is hemoglobin corrected. Hemoglobin obtained from [facility] on 01-14-24. PULMONARY FUNCTION LAB [facility] SPIROMETRY BASELINE ONLYon 1 03-31-2023 DLCO (ml/min/mmHg) 29.30 ml/min/mm H g [facility] DLCO LLN (ml/min/mmHg) 15.00 ml/mi n/mmH g [facility] DLCO PREDICTED (ml/min/mmHg) 24.94 ml/min/mmH g [facility] DLCO ULN (ml/min/mmHg) 34.87 ml/mi n/mmH g [facility] DLCO/VA (ml/min/mmHg/L) 4.43 ml/min/mmH g/L [facility] DLCO/VA PREDICTED (ml/min/mmHg/L) 3.72 ml/min/mmH g/L [facility] DLCO/VAcor (ml/min/mmHg/L) 4.59 ml/min/mmH g/L [facility] DLCOcor (ml/min/mmHg) 30.38 ml/min /mmH g [facility] DLCOcor PREDICTED (ml/min/mmHg) 24.94 ml/min/mmH g [facility] ERV BOX (L) 0.46 L [facility] System ERV PREDICTED (L) 1.32 L/S [facility] FEF25% PRE (L/S) 4.79 L/S [facility] DBW64-90% LLN (L/S) 0.88 L/S [facility] RTY92-22% PRE (L/S) 1.69 L/S [facility] FQU68-70% PREDICTED (L/S) 2.20 L/S [facility] FEF75% LLN (L/S) 0.20 L/S [facility] FEF75% PRE (L/S0 0.46 L/S [facility] FEF75% PREDICTED (L/S) 0.57 L/S [facility] FEF75% ULN (L/S) 1.55 L/S [facility] FET PRE (S) 11.15 S [facility] FEV1 LLN (L) 2.13 L [facility] FEV1 PRE (L) 2.74 L [facility] FEV1 PREDICTED (L) 2.94 L [facility] FEV1 ULN (L) 3.70 L [facility] FEV1/FVC LLN (%) 62 % [facility] FEV1/FVC PRE (%) 69 % [facility] FEV1/FVC PREDICTED (%) 76 % Cl [facility] FRC Box (L) 4.06 L [facility] FVC LLN (L) 2.93 L [facility] FVC PRE (L) 3.96 L [facility] FVC PREDICTED (L) 3.97 L [facility] FVC ULN (L) 5.02 L [facility] IC BOX (L) 3.48 L [facility] IC PREDICTED (L) 2.64 L/S [facility] PEF LLN (L/S) 5.46 L/S [facility] PEF PRE (L/S) 7.04 L/S [facility] PEF ULN (L/S) 10.16 L/S [facility] RV Box (L) 3.60 L [facility] RV Box PREDICTED (L) 2.60 [facility] RV/TLC Box (%) 48 % [facility] RV/TLC Box PREDICTED (%) 38 % [facility] SVC LLN (L) 2.93 L/S [facility] SVC PREDICTED (L) 3.97 L/S [facility] SVC ULN (L) 5.02 L/S [facility] TLC Box (L) 7.55 L [facility] TLC Box PREDICTED (L) 7.14 L [facility] (L) 6.61 L [facility] PREDICTED (L) 6.91 L [facility] VC (L) BOX 4.04 L [facility] CNPNon 01-28-2024 CNPN Normal [facility] US CAROTID ARTERIES GREGORIO VAS LABon 01-28-2024 US CAROTID ARTERIES GREGORIO VAS LAB Non-Invasive Vascular Laboratory [facility] Carotid Duplex Bilateral/Complete Date of service/time: 01/28/2024 12:08:56 PM Name: MR. HOMERO MEI Date of : 1945 Age: 78 years Gender: M Medical History Hypertension: Yes Clinical Indication Pre op for cardiac surgery. TECHNIQUE -------- A carotid duplex ultrasound examination was performed, including grayscale imaging and color Doppler and spectral Doppler examination of the below mentioned arteries. FINDINGS -------- RIGHT SIDE Common carotid artery: Origin: PSV: 141 cm/s. EDV: 23 cm/s. Proximal: PSV: 96 cm/s. EDV: 17 cm/s. Mid: PSV: 88 cm/s. EDV: 17 cm/s. Distal: PSV: 58 cm/s. EDV: 16 cm/s. Internal carotid artery: Origin: PSV: 45 cm/s. EDV: 12 cm/s. Proximal: PSV: 61 cm/s. EDV: 15 cm/s. Mid: PSV: 87 cm/s. EDV: 22 cm/s. Distal: PSV: 84 cm/s. EDV: 31 cm/s. ICA/CCA Ratio: 1.0 External carotid artery: Proximal: PSV: 101 cm/s. EDV: 17 cm/s. Subclavian artery: Origin: PSV: 132 cm/s. EDV: 4 cm/s. Innominate artery: PSV: 115 cm/s. EDV: 16 cm/s. Vertebral artery: PSV: 45 cm/s. EDV: 11 cm/s. LEFT SIDE Common carotid artery: Proximal: PSV: 97 cm/s. EDV: 22 cm/s. Mid: PSV: 90 cm/s. EDV: 22 cm/s. Distal: PSV: 98 cm/s. EDV: 20 cm/s. Internal carotid artery: Origin: PSV: 57 cm/s. EDV: 16 cm/s. Proximal: PSV: 79 cm/s. EDV: 21 cm/s. Mid: PSV: 73 cm/s. EDV: 25 cm/s. Distal: PSV: 74 cm/s. EDV: 24 cm/s. ICA/CCA Ratio: 0.8 External carotid artery: Proximal: PSV: 124 cm/s. EDV: 15 cm/s. Subclavian artery: Proximal: PSV: 116 cm/s. EDV: 4 cm/s. Vertebral artery: PSV: 51 cm/s. EDV: 16 cm/s. IMPRESSION RIGHT SIDE Internal carotid artery: <50% stenosis consistent with mild carotid artery disease. External carotid artery: Patent. Vertebral artery: Patent and antegrade flow noted. Innominate artery: Patent. Subclavian artery: Patent. LEFT SIDE Internal carotid artery: <50% stenosis consistent with mild carotid artery disease. External carotid artery: Patent. Vertebral artery: Patent and antegrade flow noted. Subclavian artery: Patent. Technologist: Penny Smith Ordering physician: CAROLINE ORLANDO Interpreting physician: Indy Castellanos MD Final CC [employer] [facility] Image : [id number] See Link below for Image Normal [facility] US Carotid arteries - hunter lind 01-28-2024 Non-Invasive Vascular Laboratory [facility] Carotid Duplex Bilateral/Complete Date of service/time: 01/28/2024 12:08:56 PM Name: MR. HOMERO MEI Date of : 1945 Age: 78 years Gender: M Medical History Hypertension: Yes Clinical Indication Pre op for cardiac surgery. TECHNIQUE -------- A carotid duplex ultrasound examination was performed, including grayscale imaging and color Doppler and spectral Doppler examination of the below mentioned arteries. FINDINGS -------- RIGHT SIDE Common carotid artery: Origin: PSV: 141 cm/s. EDV: 23 cm/s. Proximal: PSV: 96 cm/s. EDV: 17 cm/s. Mid: PSV: 88 cm/s. EDV: 17 cm/s. Distal: PSV: 58 cm/s. EDV: 16 cm/s. Internal carotid artery: Origin: PSV: 45 cm/s. EDV: 12 cm/s. Proximal: PSV: 61 cm/s. EDV: 15 cm/s. Mid: PSV: 87 cm/s. EDV: 22 cm/s. Distal: PSV: 84 cm/s. EDV: 31 cm/s. ICA/CCA Ratio: 1.0 External carotid artery: Proximal: PSV: 101 cm/s. EDV: 17 cm/s. Subclavian artery: Origin: PSV: 132 cm/s. EDV: 4 cm/s. Innominate artery: PSV: 115 cm/s. EDV: 16 cm/s. Vertebral artery: PSV: 45 cm/s. EDV: 11 cm/s. LEFT SIDE Common carotid artery: Proximal: PSV: 97 cm/s. EDV: 22 cm/s. Mid: PSV: 90 cm/s. EDV: 22 cm/s. Distal: PSV: 98 cm/s. EDV: 20 cm/s. Internal carotid artery: Origin: PSV: 57 cm/s. EDV: 16 cm/s. Proximal: PSV: 79 cm/s. EDV: 21 cm/s. Mid: PSV: 73 cm/s. EDV: 25 cm/s. Distal: PSV: 74 cm/s. EDV: 24 cm/s. ICA/CCA Ratio: 0.8 External carotid artery: Proximal: PSV: 124 cm/s. EDV: 15 cm/s. Subclavian artery: Proximal: PSV: 116 cm/s. EDV: 4 cm/s. Vertebral artery: PSV: 51 cm/s. EDV: 16 cm/s. IMPRESSION RIGHT SIDE Internal carotid artery: <50% stenosis consistent with mild carotid artery disease. External carotid artery: Patent. Vertebral artery: Patent and antegrade flow noted. Innominate artery: Patent. Subclavian artery: Patent. LEFT SIDE Internal carotid artery: <50% stenosis consistent with mild carotid artery disease. External carotid artery: Patent. Vertebral artery: Patent and antegrade flow noted. Subclavian artery: Patent. Technologist: Penny Smith Ordering physician: CAROLINE ORLANDO Interpreting physician: Indy Castellanos MD Final See Link below for Image [facility] CNPNon 01-25-2024 CNPN Normal [facility] CNPNon 01-24-2024 CNPN Normal [facility] CNOVon 01-22-2024 CNOV Normal [facility] CNPNon 01-22-2024 CNPN Normal [facility] BRIEF OP NOTon 01-14-2024 BRIEF OP NOT Normal [facility] Basic metabolic 2000 panelon 01-14-2024 Anion gap [Moles/Vol] 12 mmol/L Normal 8-15 [facility] Comment on above: Order Comment: Speci men Type: BLOOD SPECIMENOrdering Facility: [facility] Address: [address] [place] [address] Performed By: #### 2 4321-2 ####[facility] LABORATORYCLIA [id number] [place] [address] [place] Calcium [Mass/Vol] 9.4 mg/dL Normal 8.5-10.2 [facility] Comment on above: Order Comment: Speci men Type: BLOOD SPECIMENOrdering Facility: [facility] Address: [address] [place] [address] Performed By: #### 2 4321-2 ####[facility] LABORATORYCLIA [id number] [place] [address] [place] Chloride [Moles/Vol] 106 mmol/L Normal 98-107 [facility] Comment on above: Order Comment: Speci men Type: BLOOD SPECIMENOrdering Facility: [facility] Address: [address] [place] [address] Performed By: #### 2 4321-2 ####[facility] LABORATORYCLIA [id number] [address] [place] CO2 [Moles/Vol] 24 mmol/L Normal 22-30 [facility] Comment on above: Order Comment: Speci men Type: BLOOD SPECIMENOrdering Facility: [facility] Address: [address] [place] [address] Performed By: #### 2 4321-2 ####[facility] LABORATORYCLIA [id number] [address] [place] Creatinine [Mass/Vol] 0.97 mg/dL Normal 0.73-1.22 [facility] Comment on above: Order Comment: Speci men Type: BLOOD SPECIMENOrdering Facility: [facility] Address: [address] [place] [address] Performed By: #### 2 4321-2 ####[facility] LABORATORYCLIA [id number] [address] [place]CI[place] Creatinine and Glomerular filtration rate.predicted panel (S/P/Bld) 81 mL/min/1.73m??? Normal >=60 [facility] Comment on above: Order Comment: Rachid sanchez Type: BLOOD SPECIMENOrdering Facility: [facility] Address: [address] [place] [address] Result Comment: Teri mated Glomerular Filtration Rate (eGFR) is calculated using the 2020 CKD-EPI creatinine equation. This equation utilizes serum creatinine, sex, and age as parameters. The creatinine assay has traceable calibration to isotope dilution-mass spectrometry. Refer to KDIGO guidelines for clinical interpretation. In patients with unstable renal function, e.g. those with acute kidney injury, the eGFR may not accurately reflect actual GFR. Performed By: #### 2 4321-2 ####[facility] LABORATORYCLIA [id number] [place] [address] [place] Glucose [Mass/Vol] 102 mg/dL High 74-99 [facility] Comment on above: Order Comment: Rachid sanchez Type: BLOOD SPECIMENOrdering Facility: [facility] Address: [address] [place] [address] Result Comment: The [place] [employer] (ADA) provides guidance for cutoff values for fasting glucose and random glucose. The ADA defines fasting as no caloric intake for at least 8 hours. Fasting plasma glucose results between 100 to 125 mg/dL indicate increased risk for diabetes (prediabetes).Fasting plasma glucose results greater than or equal to 126 mg/dL meet the criteria for diagnosis of diabetes. In the absence of unequivocal hyperglycemia, results should be confirmed by repeat testing. In a patient with classic symptoms of hyperglycemia or hyperglycemic crisis, random plasma glucose results greater than or equal to 200 mg/dL meet the criteria for diagnosis of diabetes.Reference: Standards of Medical Care in Diabetes 2016, [place] [employer]. Diabetes Care. 2016.39(Suppl 1). Performed By: #### 2 4321-2 ####[facility] LABORATORYCLIA [id number] [place] [address] [place] Potassium [Moles/Vol] 4.0 mmol/L Normal 3.7-5.1 [facility] Comment on above: Order Comment: Rachid sanchez Type: BLOOD SPECIMENOrdering Facility: [facility] Address: [address] [place] [id number] Performed By: #### 2 4321-2 ####[facility] LABORATORYCLIA [id number] [place] [id number] [place] OF [facility] Sodium [Moles/Vol] 142 mmol/L Normal 136-144 [facility] Comment on above: Order Comment: Speci men Type: BLOOD SPECIMENOrdering Facility: [facility] Address: [address] [place] [address] Performed By: #### 2 4321-2 ####[facility] LABORATORYCLIA [id number] [address] [place] Urea nitrogen [Mass/Vol] 10 mg/dL Normal 9-24 [facility] Comment on above: Order Comment: Speci men Type: BLOOD SPECIMENOrdering Facility: [facility] Address: [address] [place] [address] Performed By: #### 2 4321-2 ####[facility] LABORATORYCLIA [id number] [address] OF [facility] CARD CATH DIAGNOSTICon 01-13 CARD CATH DIAGNOSTIC Normal [facility] CBC panel Auto (Bld)on 01-13 Erythrocyte distribution width (RBC) [Ratio] 13.7 % Normal 11.5-15.0 [facility] Comment on above: Order Comment: Speci men Type: BLOOD SPECIMENOrdering Facility: [facility] Address: [address] [place] [address] Performed By: #### 5 8410-2 ####[facility] LABORATORYCLIA [id number] [address] [place] Hematocrit (Bld) [Volume fraction] 40.4 % Normal 39.0-51.0 [facility] Comment on above: Order Comment: Speci men Type: BLOOD SPECIMENOrdering Facility: [facility] Address: [address] [place] [address] Performed By: #### 5 8410-2 ####[facility] LABORATORYCLIA [id number] [address] [place] Hemoglobin (Bld) [Mass/Vol] 13.4 g/dL Normal 13.0-17.0 [facility] Comment on above: Order Comment: Speci men Type: BLOOD SPECIMENOrdering Facility: [facility] Address: [address] [place] [address] Performed By: #### 5 8410-2 ####[facility] LABORATORYCLIA [id number] [address] MCH (RBC) [Entitic mass] 29.3 pg Normal 26.0-34.0 [facility] Comment on above: Order Comment: Speci men Type: BLOOD SPECIMENOrdering Facility: [facility] Address: [address] [place] [address] Performed By: #### 5 8410-2 ####[facility] LABORATORYCLIA [id number] [address] MCHC (RBC) [Mass/Vol] 33.2 g/dL Normal 30.5-36.0 [facility] Comment on above: Order Comment: Speci men Type: BLOOD SPECIMENOrdering Facility: [facility] Address: [address] [place] [address] Performed By: #### 5 8410-2 ####[facility] LABORATORYCLIA [id number] [address] MCV (RBC) [Entitic vol] 88.2 fL Normal 80.0-100.0 [facility] Comment on above: Order Comment: Speci men Type: BLOOD SPECIMENOrdering Facility: [facility] Address: [address] [place] [address] Performed By: #### 5 8410-2 ####[facility] LABORATORYCLIA [id number] [address] Nucleated RBC (Bld) [#/Vol] 10*3/uL Normal <0.01 [facility] Comment on above: Order Comment: Speci men Type: BLOOD SPECIMENOrdering Facility: [facility] Address: [address] [place] [address] Performed By: #### 5 8410-2 ####[facility] LABORATORYCLIA [id number] [address] OF [facility] Platelet mean volume (Bld) [Entitic vol] 10.7 fL Normal 9.0-12.7 [facility] Comment on above: Order Comment: Speci men Type: BLOOD SPECIMENOrdering Facility: [facility] Address: [address] [place] [address] Performed By: #### 5 8410-2 ####[facility] LABORATORYCLIA [id number] [place] [address] [place] Platelets (Bld) [#/Vol] 181 10*3/uL Normal 150-400 [facility] Comment on above: Order Comment: Speci men Type: BLOOD SPECIMENOrdering Facility: [facility] Address: [address] [place] [address] Performed By: #### 5 8410-2 ####[facility] LABORATORYCLIA [id number] [place] [address] [place] RBC (Bld) [#/Vol] 4.58 10*6/uL Normal 4.20-6.00 [facility] Comment on above: Order Comment: Speci men Type: BLOOD SPECIMENOrdering Facility: [facility] Address: [address] [place] [address] Performed By: #### 5 8410-2 ####[facility] LABORATORYCLIA [id number] [address] [place] WBC (Bld) [#/Vol] 8.28 10*3/uL Normal 3.70-11.00 [facility] Comment on above: Order Comment: Speci men Type: BLOOD SPECIMENOrdering Facility: [facility] Address: [address] [place] [address] Performed By: #### 5 8410-2 ####[facility] LABORATORYCLIA [id number] [address] [place] HISTORY PHYSICALon HISTORY PHYSICAL Normal [facility] NURSING PROGon 01-14-2024 NURSING PROG Normal [facility] NURSING PROG Normal [facility] .Auto Diffon 01-11-2024 Basophil, Absolute 0.0 10 3/mcL Normal 0.0-0.2 [facility] Comment on above: Performed By: #### G FR, ADIFF, ANEU, BMP, CBC #### [address] [address] Basophils/100 WBC (Bld) 0.4 % Normal 0.0-2.5 [facility] Comment on above: Performed By: #### G FR, ADIFF, ANEU, BMP, CBC #### [address] [address] Eosinophil, Absolute 0.2 10 3/mcL Normal 0.0-0.7 [facility] Comment on above: Performed By: #### G FR, ADIFF, ANEU, BMP, CBC #### [address] [address] Eosinophils/100 WBC (Bld) 3.6 % Normal 0.0-7.0 [facility] Comment on above: Performed By: #### G FR, ADIFF, ANEU, BMP, CBC #### [address] [address] Lymphocyte, Absolute 1.5 10 3/mcL Normal 0.9-4.3 [facility] Comment on above: Performed By: #### G FR, ADIFF, ANEU, BMP, CBC #### [address] [address] Lymphocytes/100 WBC (Bld) 25.5 % Normal 20.0-40.0 [facility] Comment on above: Performed By: #### G FR, ADIFF, ANEU, BMP, CBC #### [address] [address] Monocyte, Absolute 0.4 10 3/mcL Normal 0.1-1.4 [facility] Comment on above: Performed By: #### G FR, ADIFF, ANEU, BMP, CBC #### [address] [address] Monocytes/100 WBC (Bld) 6.6 % Normal 2.0-13.0 [facility] Comment on above: Performed By: #### G FR, ADIFF, ANEU, BMP, CBC #### [place] [id number] [place], [place] [address] Neutrophils/100 WBC (Bld) 63.9 % Normal 50.0-75.0 [facility] Comment on above: Performed By: #### G FR, ADIFF, ANEU, BMP, CBC #### [address] [place], [place] [address] .GFRon 01-11-2024 GFR 84 ml/min/1.73sqm Normal [facility] Comment on above: Result Comment: GFR Population mean for , Non- Americans Ages 20-29 = 116 mL/min/1.73 sq.m. Ages 30-39 = 107 mL/min/1.73 sq.m. Ages 40-49 = 99 mL/min/1.73 sq.m. Ages 50-59 = 93 mL/min/1.73 sq.m. Ages 60-69 = 85 mL/min/1.73 sq.m. Ages 70+ = 75 mL/min/1.73 sq.m. Chronic Kidney Disease: Less than 60 mL/min/1.73 square meters End Stage Renal Disease: Less than 15 mL/min/1.73 square meters Performed By: #### G FR, ADIFF, ANEU, BMP, CBC #### [address] [address] GFR Non- 69 ml/min/1.73sqm Normal [facility] Comment on above: Result Comment: GFR Population mean for , Non- Americans Ages 20-29 = 116 mL/min/1.73 sq.m. Ages 30-39 = 107 mL/min/1.73 sq.m. Ages 40-49 = 99 mL/min/1.73 sq.m. Ages 50-59 = 93 mL/min/1.73 sq.m. Ages 60-69 = 85 mL/min/1.73 sq.m. Ages 70+ = 75 mL/min/1.73 sq.m. Chronic Kidney Disease: Less than 60 mL/min/1.73 square meters End Stage Renal Disease: Less than 15 mL/min/1.73 square meters Performed By: #### G FR, ADIFF, ANEU, BMP, CBC #### [address] [address] .NEUABSon 01-11-2024 Neutrophil, Absolute 3.9 10 3/mcL Normal 2.3-8.1 [facility] Comment on above: Performed By: #### G FR, ADIFF, ANEU, BMP, CBC #### [address] [address] BMPon 01-11-2024 BUN/Creatinine Ratio 11 ratio Normal 7-27 [facility] Comment on above: Performed By: #### G FR, ADIFF, ANEU, BMP, CBC #### [address] [address] Calcium [Mass/Vol] 9.1 mg/dL Normal 8.4-10.2 [facility] Comment on above: Performed By: #### G FR, ADIFF, ANEU, BMP, CBC #### [address] [address] Chloride [Moles/Vol] 105 mmol/L Normal 98-107 [facility] Comment on above: Performed By: #### G FR, ADIFF, ANEU, BMP, CBC #### [address] [address] CO2 [Moles/Vol] 31 mmol/L Normal 23-31 [facility] Comment on above: Performed By: #### G FR, ADIFF, ANEU, BMP, CBC #### [address] [address] Creatinine [Mass/Vol] 1.04 mg/dL Normal 0.70-1.30 [facility] Comment on above: Result Comment: Test ing performed on Siemens Dimension EXL analyzer using a modified kinetic Bibi technique. Performed By: #### G FR, ADIFF, ANEU, BMP, CBC #### [address] [address] Electrolyte Balance 7.0 mEq/L Normal 4.0-15.0 [facility] Comment on above: Performed By: #### G FR, ADIFF, ANEU, BMP, CBC #### [place] [address] Glucose [Mass/Vol] 118 mg/dL High 83-110 [facility] Comment on above: Performed By: #### G FR, ADIFF, ANEU, BMP, CBC #### [place] [address] Potassium [Moles/Vol] 4.3 mmol/L Normal 3.5-5.1 [facility] Comment on above: Performed By: #### G FR, ADIFF, ANEU, BMP, CBC #### [place] [address] Sodium [Moles/Vol] 143 mmol/L Normal 136-145 [facility] Comment on above: Performed By: #### G FR, ADIFF, ANEU, BMP, CBC #### [place] [address] Urea nitrogen [Mass/Vol] 11 mg/dL Normal 7-18 [facility] Comment on above: Performed By: #### G FR, ADIFF, ANEU, BMP, CBC #### [place] [address] CBCon 01-11-2024 Erythrocyte distribution width (RBC) [Ratio] 15.1 % Normal 11.5-15.5 [facility] Comment on above: Performed By: #### G FR, ADIFF, ANEU, BMP, CBC #### [place] [address] Hematocrit (Bld) [Volume fraction] 38.8 % Low 40.0-52.0 [facility] Comment on above: Performed By: #### G FR, ADIFF, ANEU, BMP, CBC #### [place] [address] Hgb 13.1 G/dL Normal 13.0-17.5 [facility] Comment on above: Performed By: #### G FR, ADIFF, ANEU, BMP, CBC #### [place] [address] MCH (RBC) [Entitic mass] 29.7 pg Normal 27.0-33.0 [facility] Comment on above: Performed By: #### G FR, ADIFF, ANEU, BMP, CBC #### [place] [address] MCHC 33.9 G/dL Normal 32.0-36.0 [facility] Comment on above: Performed By: #### G FR, ADIFF, ANEU, BMP, CBC #### [place] [address] MCV (RBC) [Entitic vol] 87.7 fL Normal 81.0-100.0 [facility] Comment on above: Performed By: #### G FR, ADIFF, ANEU, BMP, CBC #### [place] [address] Platelet 182 10 3/mcL Normal 150-450 [facility] Comment on above: Performed By: #### G FR, ADIFF, ANEU, BMP, CBC #### [place] [address] Platelet mean volume (Bld) [Entitic vol] 9.0 fL Normal 6.4-10.5 [facility] Comment on above: Performed By: #### G FR, ADIFF, ANEU, BMP, CBC #### [place] [address] RBC 4.42 10 6/mcL Low 4.50-6.00 [facility] Comment on above: Performed By: #### G FR, ADIFF, ANEU, BMP, CBC #### [place] [address] WBC 6.0 10 3/mcL Normal 4.5-10.8 [facility] Comment on above: Performed By: #### G FR, ADIFF, ANEU, BMP, CBC #### [place] [address] LABORATORYOrdered By: SYSTEM SYSTEM on 01-11-2024 Basophils (Bld) [#/Vol] 0.0 103/mcL Normal 0.0 - 0.2 10^3/mcL AO Workflow SS Basophils/100 WBC (Bld) 0.4 % Normal 0.0 - 2.5 % AO Workflow SS Calcium [Mass/Vol] 9.1 mg/dL Normal 8.4 - 10. 2 mg/dL AO ADM SS Chloride [Moles/Vol] 105 mmol/L Normal 98 - 10 7 mmol/L AO ADM SS CO2 [Moles/Vol] 31 mmol/L Normal 23 - 31 mmol/L AO ADM SS Creatinine [Mass/Vol] 1.04 mg/dL Normal 0.70 - 1.30 mg/dL AO ADM SS Comment on above: Interpretive Data: T esting performed on [employer] Dimension EXL analyzer using a modified kinetic Bibi technique. Electrolyte Balance 7.0 mEq/L Normal 4.0 - 15 .0 mEq/L AO ADM SS Eosinophil, Absolute 0.2 103/mcL Normal 0.0 - 0 .7 10^3/mcL AO Workflow SS Eosinophils/100 WBC (Bld) 3.6 % Normal 0.0 - 7.0 % AO Workflow SS Erythrocyte distribution width (RBC) [Ratio] 15.1 % Normal 11.5 - 15.5 % AO Workflow SS GFR/1.73 sq M.predicted among blacks MDRD (S/P/Bld) [Vol rate/Area] 84 ml/min/1.73sqm Invalid Interpretation Code AO Chemistry S Comment on above: Interpretive Data: GFR Population mean for , Non- Americans Ages 20-29 = 116 mL/min/1.73 sq.m. Ages 30-39 = 107 mL/min/1.73 sq.m. Ages 40-49 = 99 mL/min/1.73 sq.m. Ages 50-59 = 93 mL/min/1.73 sq.m. Ages 60-69 = 85 mL/min/1.73 sq.m. Ages 70+ = 75 mL/min/1.73 sq.m. Chronic Kidney Disease: Less than 60 mL/min/1.73 square meters End Stage Renal Disease: Less than 15 mL/min/1.73 square meters GFR/1.73 sq M.predicted among non-blacks MDRD (S/P/Bld) [Vol rate/Area] 69 ml/min/1.73sqm Invalid Interpretation Code AO Chemistry S Comment on above: Interpretive Data: GFR Population mean for , Non- Americans Ages 20-29 = 116 mL/min/1.73 sq.m. Ages 30-39 = 107 mL/min/1.73 sq.m. Ages 40-49 = 99 mL/min/1.73 sq.m. Ages 50-59 = 93 mL/min/1.73 sq.m. Ages 60-69 = 85 mL/min/1.73 sq.m. Ages 70+ = 75 mL/min/1.73 sq.m. Chronic Kidney Disease: Less than 60 mL/min/1.73 square meters End Stage Renal Disease: Less than 15 mL/min/1.73 square meters Glucose [Mass/Vol] 118 mg/dL High 83 - 110 mg/dL AO ADM SS Hematocrit (Bld) [Volume fraction] 38.8 % Low 40.0 - 52.0 % AO Workflow SS Hemoglobin (Bld) [Mass/Vol] 13.1 G/dL Normal 13.0 - 17.5 G/dL AO Workflow SS Lymphocytes (Bld) [#/Vol] 1.5 103/mcL Normal 0.9 - 4.3 10^3/mcL AO Workflow SS Lymphocytes/100 WBC (Bld) 25.5 % Normal 20.0 - 40.0 % AO Workflow SS MCH (RBC) [Entitic mass] 29.7 pg Normal 27.0 - 33.0 pg AO Workflow SS MCHC 33.9 G/dL Normal 32.0 - 36.0 G/dL AO Workflow SS MCV (RBC) [Entitic vol] 87.7 fL Normal 81.0 - 100.0 fL AO Workflow SS Monocytes (Bld) [#/Vol] 0.4 103/mcL Normal 0.1 - 1.4 10^3/mcL AO Workflow SS Monocytes/100 WBC (Bld) 6.6 % Normal 2.0 - 13.0 % AO Workflow SS Neutrophils (Bld) [#/Vol] 3.9 103/mcL Normal 2.3 - 8.1 10^3/mcL AO Workflow SS Neutrophils/100 WBC (Bld) 63.9 % Normal 50.0 - 75.0 % AO Workflow SS Platelet mean volume (Bld) [Entitic vol] 9.0 fL Normal 6.4 - 10.5 fL AO Workflow SS Platelets (Bld) [#/Vol] 182 103/mcL Normal 150 - 450 10^3/mcL AO Workflow SS Potassium [Moles/Vol] 4.3 mmol/L Normal 3.5 - 5.1 mmol/L AO ADM SS RBC (Bld) [#/Vol] 4.42 106/mcL Low 4.50 - 6.00 10^6/mcL AO Workflow SS Sodium [Moles/Vol] 143 mmol/L Normal 136 - 145 mmol/L AO ADM SS Urea nitrogen [Mass/Vol] 11 mg/dL Normal 7 - 18 mg/dL AO ADM SS Urea nitrogen/Creatinine [Mass ratio] 11 ratio Normal 7 - 27 ratio AO ADM SS WBC (Bld) [#/Vol] 6.0 103/mcL Normal 4.5 - 10.8 10^3/mcL AO Workflow SS CNPNon 01-08-2024 CNPN Normal [facility] CNOVon 01-07-2024 CNOV Normal [facility] CNPNon 01-05-2024 CNPN Normal [facility] NM CARDIAC PERF STRESS/PHARM on 12-21-2023 NM CARDIAC PERF STRESS/PHARM * * *Final Report* * * DATE OF EXAM: Dec 21 2023 10:28AM VIRGIE 0006 - NM CARDIAC PERF STRESS/PHARM / PROCEDURE REASON: R94.31-Abnormal electrocardiogram * * * * Physician Interpretation * * * * PATIENT: Name: MR. HOMERO MEI Age: 78 years Gender: M CONCLUSIONS: 1. SPECT Perfusion Study: Abnormal. 2. No evidence of scarred myocardium. 3. There is moderate (10-20%) ischemia in the territory of the RCA. 4. Left ventricle is normal in size. The left ventricle systolic function is normal. 5. Right ventricle is normal in size. 6. This is an intermediate risk scan. Gated Stress IR:3D LVEF % 62 Prior Study Comparison No prior nuclear cardiology exam available for comparison. Nuclear Med Report:1-Day Gated SPECT Myocardial Perfusion with Regadenoson Stress: Myocardial perfusion imaging was performed at rest 30 minutes following the IV injection of the radiotracer. The patient received 0.4 mg of regadenoson, via rapid IV push, immediately followed by radiotracer IV. Gated post stress tomographic imaging was performed 30 to 60 minutes later. See administered radiotracer and doses below. [facility] Date of service: 12/21/2023 8:09:17 AM Ordering Physician: LENIN CHAUDHARY. Requesting Physician: Indication: Abnormal Baseline ECG Interpreting physician: Jarret Esquivel MD Height: 185.42 cm BSA: 2.15 m? Weight: 89.81 kg BMI: 26.1 kg/m? Imaging Protocol Limitation Reason G.I. uptake. Exam Type: Rest Stress Radiopharm: Tc-99m Tetrofosmin Tc-99m Tetrofosmin Dosage(mCi): 9.2 28.2 Atten Correction: not performed not performed Stress Agent: Regadenoson 0.4mg Supply provided from [facility] Resting Blood Press: 176/88 mmHg Image Quality The overall study imaging quality was deemed to be poor. The following technical issues were noted: G.I. uptake. FINDINGS: Left Ventricle Wall Motion: Stress IR:3D - All segments are normal. Rest IR:3D - Gated Stress IR:3D - Reversibility - Stress IR:3D Stress IR:3D Gated Stress IR:3D LVEF: 62 % ED Volume: 143 ml ES Volume: 54 ml TID: 1.26 Perfusion Findings Stress IR:3D - Summed Score=3 There is a mild perfusion defect in the entire inferior wall. All remaining scored segments show normal perfusion. Rest IR:3D - Summed Score=0 All segments demonstrate normal perfusion. Stress IR:3D Rest IR:3D Summed Score=3 Summed Score=0 LEFT VENTRICLE The left ventricle is normal in size. Left ventricular systolic function is normal. Right Ventricle The right ventricle is normal in size. Stress Test Findings: There is no evidence of scarring. * * * Final * * * Stress ECG Report: [facility] Date of service: 12/21/2023 8:09:17 AM Ordering physician: LENIN CHAUDHARY correctional treatment specialist: Deana Cullen Planning Assistant: Summer Fletcher Interpreting physician: Danilo Neville MD Patient name: MR. HOMERO MEI Age: 78 years Gender: M Height: 185.42 cm BSA: 2.15 m? Weight: 89.81 kg BMI: 26.1 kg/m? Indication: Abnormal resting ECG Stress ECG Conclusion: Conclusion: Normal Stress ECG Summary: The patient's resting heart rate was 60 bpm and blood pressure was 176/88 mmHg. The test was terminated due to end of protocol. No symptoms provoked during stress. The maximum heart rate was 82 bpm, which is 57% of the predicted heart rate for age. Peak blood pressure was 148/80 mmHg. The double product achieved was [id number]. Medications: Last Used FLOMAX LIPITOR LISINOPRIL PROTONIX Resting ECG: Normal Sinus Rhythm and Rare PACs (<3/Min) Symptoms at rest: No symptoms Pharamcologic Protocol: Regadenoson Stress Exercise Table: +-----+--+---+---+ Stage HR SYS ZHANG +-----+--+---+---+ 1 69 129 69 +-----+--+---+---+ 2 82 137 71 +-----+--+---+---+ 3 77 141 73 +-----+--+---+---+ 4 77 137 85 +-----+--+---+---+ 5 77 147 73 +-----+--+---+---+ 6 75 148 80 +-----+--+---+---+ +-----+--+---+---+ HR SYS ZHANG +-----+--+---+---+ Final 82 148 80 +-----+--+---+---+ Stress Observations: Resting HR: 60 bpm Peak HR: 82 bpm (57% MPHR) Resting BP: 176 / 88 mmHg Peak BP: 148 / 80 mmHg Rate Pressure Product (RPP): 12884 Stress Exercise Observations: Reason for test termination: end of protocol, Symptoms during test: No symptoms provoked during stress, ST segment and T wave changes: No ST changes and Arrhythmias: Unifocal PVCs and PACs Metabolic Exercise Data Variable: Observed value [Expected Range] HGI: 0.1 [>1.06 bpm/mmHg] * * * Final * * * Stress Thermoplastic Technician Re (more content not included)... Normal [facility] Heart Perfusion W stress and W radionuclide A[facility]a 12-21-2023 * * *Final Report* * * DATE OF EXAM: Dec 21 2023 10:28AM VIRGIE 0006 - [place] CARDIAC PERF STRESS/PHARM / PROCEDURE REASON: R94.31-Abnormal electrocardiogram * * * * Physician Interpretation * * * * PATIENT: Name: MR. HOMERO MEI Age: 78 years Gender: M CONCLUSIONS: 1. SPECT Perfusion Study: Abnormal. 2. No evidence of scarred myocardium. 3. There is moderate (10-20%) ischemia in the territory of the RCA. 4. Left ventricle is normal in size. The left ventricle systolic function is normal. 5. Right ventricle is normal in size. 6. This is an intermediate risk scan. Gated Stress IR:3D LVEF % 62 Prior Study Comparison No prior nuclear cardiology exam available for comparison. Nuclear Med Report:1-Day Gated SPECT Myocardial Perfusion with Regadenoson Stress: Myocardial perfusion imaging was performed at rest 30 minutes following the IV injection of the radiotracer. The patient received 0.4 mg of regadenoson, via rapid IV push, immediately followed by radiotracer IV. Gated post stress tomographic imaging was performed 30 to 60 minutes later. See administered radiotracer and doses below. [facility] Date of service: 12/21/2023 8:09:17 AM Ordering Physician: LENIN CHAUDHARY. Requesting Physician: Indication: Abnormal Baseline ECG Interpreting physician: Jarret Esquivel MD Height: 185.42 cm BSA: 2.15 m Weight: 89.81 kg BMI: 26.1 kg/m Imaging Protocol Limitation Reason G.I. uptake. Exam Type: Rest Stress Radiopharm: Tc-99m Tetrofosmin Tc-99m Tetrofosmin Dosage(mCi): 9.2 28.2 Atten Correction: not performed not performed Stress Agent: Regadenoson 0.4mg Supply provided from [facility] Resting Blood Press: 176/88 mmHg Image Quality The overall study imaging quality was deemed to be poor. The following technical issues were noted: G.I. uptake. FINDINGS: Left Ventricle Wall Motion: Stress IR:3D - All segments are normal. Rest IR:3D - Gated Stress IR:3D - Reversibility - Stress IR:3D Stress IR:3D Gated Stress IR:3D LVEF: 62 % ED Volume: 143 ml ES Volume: 54 ml TID: 1.26 Perfusion Findings Stress IR:3D - Summed Score=3 There is a mild perfusion defect in the entire inferior wall. All remaining scored segments show normal perfusion. Rest IR:3D - Summed Score=0 All segments demonstrate normal perfusion. Stress IR:3D Rest IR:3D Summed Score=3 Summed Score=0 LEFT VENTRICLE The left ventricle is normal in size. Left ventricular systolic function is normal. Right Ventricle The right ventricle is normal in size. Stress Test Findings: There is no evidence of scarring. * * * Final * * * Stress ECG Report: [facility] Date of service: 12/21/2023 8:09:17 AM Ordering physician: LENIN CHAUDHARY correctional treatment specialist: Deana Cullen Planning Assistant: Summer Fletcher Interpreting physician: Danilo Neville MD Patient name: MR. HOMERO MEI Age: 78 years Gender: M Height: 185.42 cm BSA: 2.15 m Weight: 89.81 kg BMI: 26.1 kg/m Indication: Abnormal resting ECG Stress ECG Conclusion: Conclusion: Normal Stress ECG Summary: The patient's resting heart rate was 60 bpm and blood pressure was 176/88 mmHg. The test was terminated due to end of protocol. No symptoms provoked during stress. The maximum heart rate was 82 bpm, which is 57% of the predicted heart rate for age. Peak blood pressure was 148/80 mmHg. The double product achieved was [id number]. Medications: Last Used FLOMAX LIPITOR LISINOPRIL PROTONIX Resting ECG: Normal Sinus Rhythm and Rare PACs (<3/Min) Symptoms at rest: No symptoms Pharamcologic Protocol: Regadenoson Stress Exercise Table: +-----+--+---+---+ Stage HR SYS ZHANG +-----+--+---+---+ 1 69 129 69 +-----+--+---+---+ 2 82 137 71 +-----+--+---+---+ 3 77 141 73 +-----+--+---+---+ 4 77 137 85 +-----+--+---+---+ 5 77 147 73 +-----+--+---+---+ 6 75 148 80 +-----+--+---+---+ +-----+--+---+---+ HR SYS ZHANG +-----+--+---+---+ Final 82 148 80 +-----+--+---+---+ Stress Observations: Resting HR: 60 bpm Peak HR: 82 bpm (57% MPHR) Resting BP: 176 / 88 mmHg Peak BP: 148 / 80 mmHg Rate Pressure Product (RPP): 48043 Stress Exercise Observations: Reason for test termination (more content not included)... [facility] Provider, [facility] 12/21/[facility]23 * * *Final Report* * * DATE OF EXAM: Dec 21 2023 10:28AM VIRGIE 0006 - [place] CARDIAC PERF STRESS/PHARM / PROCEDURE REASON: R94.31-Abnormal electrocardiogram * * * * Physician Interpretation * * * * PATIENT: Name: MR. HOMERO MEI Age: 78 years Gender: M CONCLUSIONS: 1. SPECT Perfusion Study: Abnormal. 2. No evidence of scarred myocardium. 3. There is moderate (10-20%) ischemia in the territory of the RCA. 4. Left ventricle is normal in size. The left ventricle systolic function is normal. 5. Right ventricle is normal in size. 6. This is an intermediate risk scan. Gated Stress IR:3D LVEF % 62 Prior Study Comparison No prior nuclear cardiology exam available for comparison. Nuclear Med Report:1-Day Gated SPECT Myocardial Perfusion with Regadenoson Stress: Myocardial perfusion imaging was performed at rest 30 minutes following the IV injection of the radiotracer. The patient received 0.4 mg of regadenoson, via rapid IV push, immediately followed by radiotracer IV. Gated post stress tomographic imaging was performed 30 to 60 minutes later. See administered radiotracer and doses below. [facility] Date of service: 12/21/2023 8:09:17 AM Ordering Physician: LENIN CHAUDHARY. Requesting Physician: Indication: Abnormal Baseline ECG Interpreting physician: Jarret Esquivel MD Height: 185.42 cm BSA: 2.15 m Weight: 89.81 kg BMI: 26.1 kg/m Imaging Protocol Limitation Reason G.I. uptake. Exam Type: Rest Stress Radiopharm: Tc-99m Tetrofosmin Tc-99m Tetrofosmin Dosage(mCi): 9.2 28.2 Atten Correction: not performed not performed Stress Agent: Regadenoson 0.4mg Supply provided from [facility] Resting Blood Press: 176/88 mmHg Image Quality The overall study imaging quality was deemed to be poor. The following technical issues were noted: G.I. uptake. FINDINGS: Left Ventricle Wall Motion: Stress IR:3D - All segments are normal. Rest IR:3D - Gated Stress IR:3D - Reversibility - Stress IR:3D Stress IR:3D Gated Stress IR:3D LVEF: 62 % ED Volume: 143 ml ES Volume: 54 ml TID: 1.26 Perfusion Findings Stress IR:3D - Summed Score=3 There is a mild perfusion defect in the entire inferior wall. All remaining scored segments show normal perfusion. Rest IR:3D - Summed Score=0 All segments demonstrate normal perfusion. Stress IR:3D Rest IR:3D Summed Score=3 Summed Score=0 LEFT VENTRICLE The left ventricle is normal in size. Left ventricular systolic function is normal. Right Ventricle The right ventricle is normal in size. Stress Test Findings: There is no evidence of scarring. * * * Final * * * Stress ECG Report: [facility] Date of service: 12/21/2023 8:09:17 AM Ordering physician: LENIN CHAUDHARY correctional treatment specialist: Deana Cullen Planning Assistant: Summer Fletcher Interpreting physician: Daniol Neville MD Patient name: MR. HOMERO MEI Age: 78 years Gender: M Height: 185.42 cm BSA: 2.15 m Weight: 89.81 kg BMI: 26.1 kg/m Indication: Abnormal resting ECG Stress ECG Conclusion: Conclusion: Normal Stress ECG Summary: The patient's resting heart rate was 60 bpm and blood pressure was 176/88 mmHg. The test was terminated due to end of protocol. No symptoms provoked during stress. The maximum heart rate was 82 bpm, which is 57% of the predicted heart rate for age. Peak blood pressure was 148/80 mmHg. The double product achieved was [id number]. Medications: Last Used FLOMAX LIPITOR LISINOPRIL PROTONIX Resting ECG: Normal Sinus Rhythm and Rare PACs (<3/Min) Symptoms at rest: No symptoms Pharamcologic Protocol: Regadenoson Stress Exercise Table: +-----+--+---+---+ Stage HR SYS ZHANG +-----+--+---+---+ 1 69 129 69 +-----+--+---+---+ 2 82 137 71 +-----+--+---+---+ 3 77 141 73 +-----+--+---+---+ 4 77 137 85 +-----+--+---+---+ 5 77 147 73 +-----+--+---+---+ 6 75 148 80 +-----+--+---+---+ +-----+--+---+---+ HR SYS ZHANG +-----+--+---+---+ Final 82 148 80 +-----+--+---+---+ Stress Observations: Resting HR: 60 bpm Peak HR: 82 bpm (57% MPHR) Resting BP: 176 / 88 mmHg Peak BP: 148 / 80 mmHg Rate Pressure Product (RPP): 34219 Stress Exercise Observations: Reason for test termination: end of protocol, Symptoms during test: No symptoms provoked during stress, ST segment and T wave changes: No ST changes and Arrhythmias: Unifocal PVCs and PACs Metabolic Exercise Data Variable: Observed value [Expected Range] HGI: 0.1 [>1.06 bpm/mmHg] (more content not included)... [facility] Radiology Study observation (narrative) [facility] [place] Heart Perfusion W stress and W radionuclide IVOrdered By: [facility] Provider on 12-21-2023 [facility] Rosalina 12-20-2023 [place] Telephone ([facility]) HOMERO MEI ([id number]) 1945 M Date Time Provider Department 12/20/23 JASON STEWART [facility] During your visit today, we recorded the following information about you: Jason Stewart RN 12/20/2023 1:20 PM Signed Left message for patient with all instructions. Allergies As of Date: 12/20/2023 (No Active Allergies) Date Reviewed: 12/07/2023 Reviewed by: Arlyn Scott LPN - Fully Assessed Prescriptions as of 12/20/2023 - Cholecalciferol, Vitamin D3, 25 mcg (1,000 unit) cap Take 1 capsule by mouth once daily. - vit C/E/Zn/coppr/lutein/zeaxan (PRESERVISION AREDS-2 ORAL) Take by mouth. - latanoprost (XALATAN) 0.005 % ophthalmic solution 1 Drop daily at bedtime. - acetaminophen (TYLENOL EXTRA STRENGTH) 500 mg tablet Take 500 mg by mouth every 8 hours as needed. - tamsulosin (FLOMAX) 0.4 mg Take 1 capsule by mouth daily at bedtime. - ferrous sulfate 325 mg (65 mg iron) tablet Take 325 mg by mouth three times a day. - senna-docusate (SENNA-S) 8.6-50 mg per tablet Take 1 tablet by mouth once daily as needed for constipation. - docusate sodium (COLACE) 100 mg capsule Take 1 capsule by mouth two times a day as needed for constipation. - atorvastatin (LIPITOR) 20 mg tablet Take 1 tablet by mouth once daily. - lisinopril (ZESTRIL) 40 mg tablet Take 1 tablet by mouth once daily. - cyanocobalamin (VITAMIN B-12) 1,000 mcg tab Take 1 tablet by mouth once daily. - donepezil (ARICEPT) 10 mg tablet Take 1 tablet by mouth daily with breakfast. - fluticasone (FLONASE) 50 mcg/actuation nasal spray Use 2 Sprays in each nostril as needed. Rinse mouth after use. - pantoprazole DR (PROTONIX) 40 mg tablet Take 40 mg by mouth two times a day. 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 Contact Dermatitis and Other Eczema, due to Uns*08/18/2008 04/09/2009 Contact Dermatitis and Other Eczema due to Othe*08/18/2008 04/09/2009 Other Atopic Dermatitis and Related Conditions *08/18/2008 04/09/2009 XEROSIS///SEBACEOUS GLAND DIS NEC [L73.8] 08/18/2008 04/09/2009 Rosacea [L71.9] 08/18/2008 10/13/2009 TELANGIECTASIAS///CAPILLARY DIS NEC/NOS [I78.9] 08/18/2008 10/13/2009 Xerosis Cutis [L85.3] 04/09/2009 04/09/2009 Eczematous Dermatitis: ?Contact type vs other *04/09/2009 10/13/2009 Xerosis Cutis [L85.3] 04/09/2009 10/13/2009 Hyperlipidemia [E78.5] 10/13/2009 Viral warts, unspecified [B07.9] 02/03/2010 06/05/2016 Irritated//Inflamed Seborrheic Keratosis [L82.0]02/03/2010 Eczematous Dermatitis: Irritant [L25.9] 02/03/2010 Irritant dermatitis [L24.9] 02/03/2010 06/05/2016 Other seborrheic keratosis [L82.1] 02/03/2010 06/05/2016 Other psoriasis [L40.8] 02/03/2010 Bilateral inguinal hernia (BIH) [K40.20] 07/04/2010 11/01/2011 Irritable bowel syndrome [K58.9] 08/19/1997 Essential hypertension [I10] Personal history of colonic polyps [Z86.0100] DDD (degenerative disc disease), lumbar [M51.36* CHRISTIANO (obstructive sleep apnea) [G47.33] Abdominal pain, left lower quadrant [R10.32] 12/03/2012 06/05/2016 Right carpal tunnel syndrome [G56.01] 02/22/2015 Left carpal tunnel syndrome [G56.02] 02/22/2015 Impingement syndrome of right shoulder [M75.41] 02/22/2015 Iron deficiency anemia secondary to inadequate *06/02/2015 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 Left ventricular systolic function is normal. EF = 64 5% (2D biplane) Normal left ventricular diastolic function. - The right ventricle is dilated. Right ventricular systolic function is normal. - The right atrial cavity is dilated. - There are no significant valvular abnormalities. - The visualized aorta is borderline dilated with a maximal dimension of 3.9 cm. - There is mild (1+) tricuspid regurgitation. - Estimated right ventricular systolic pressure is 42 mmHg consistent with mild pulmonary hypertension. Estimated right atrial pressure is 15 mmHg based on IVC assessment. - The patient has not had a prior CC echocardiographic exam for comparison. * * * Final * * * [facility] Echocardiography Report: Transthoracic Echo [facility] Date of service: 12/13/2023 12:07:07 PM Ordering physician: LENIN CHAUDHARY Indication: Abnormal ECG Technologist: Rodolfo Tan [facility] Interpreting physician: Danilo Neville MD PATIENT: Name: MR. HOMERO MEI : 1945 Age: 77 years Gender: M History of hypertension and dyslipidemia. Primary rhythm: sinus. Height: 185.42 cm BSA: 2.15 m Weight: 89.81 kg BMI: 26.1 kg/m Heart rate 57 bpm Blood pressure 195/100 mmHg Color Doppler was utilized to interrogate the cardiac valves assessed and spectral Doppler was utilized to determine the flow velocities and pressure gradients reported in this exam. MEASUREMENTS: Value Indexed Normal Max aortic dimension 3.9 cm Ao < 3.8 Left atrium diameter 3.9 cm (2D) LAd < 4 LV ID (diastole) 4.8 cm (2D) 2.24 cm/m LV ID (systole) 3.0 cm (2D) 1.38 cm/m IVS, leaflet tips 1.3 cm (2D) Posterior wall thickness 1.1 cm (2D) Left ventricular mass 228 g (2D) 106 g/m LV stroke volume 101 ml (2D biplane) LV end diastolic volume 158 ml (2D biplane) 73.2 ml/m 34<=EDVi<75 LV end systolic volume 57 ml (2D biplane) 26.4 ml/m Ejection Fraction 64 % (2D biplane) EF > 52 FINDINGS: LEFT VENTRICLE The left ventricle is normal in size. Left ventricular systolic function is normal. Normal left ventricular diastolic function. Mitral annular lateral E/e': 12.3. Mitral annular septal E/e': 15.7. Wall Motion: All scored segments are normal. RIGHT VENTRICLE The right ventricle is dilated. Right ventricular systolic function is normal. RV systolic tissue Doppler velocity is 13.1 cm/s. Tricuspid annular displacement is 2.3 cm. Estimated right ventricular systolic pressure is 42 mmHg consistent with mild pulmonary hypertension. Estimated right atrial pressure is 15 mmHg based on IVC assessment. LEFT ATRIUM The left atrial cavity is normal in size. RIGHT ATRIUM The right atrial cavity is dilated. Inferior Vena Cava: The inferior vena cava appears dilated measuring 2.4 cm. The vessel decreases less than 50 percent with inspiration. MITRAL VALVE The mitral valve leaflets are structurally normal. There is trace mitral valve regurgitation. The pressure half time is 49 msec. The peak mitral E/A ratio is 0.72. The mitral flow deceleration time is 170 msec. TRICUSPID VALVE The tricuspid valve leaflets are structurally normal. There is mild (1+) tricuspid valve regurgitation. AORTIC VALVE The aortic valve cusps are structurally normal. There is trace aortic valve regurgitation. Tricuspid aortic valve. The peak gradient is 10 mmHg (peak velocity = 158.0 cm/s). PULMONIC VALVE The pulmonic valve cusps are structurally normal. There is trace (trace - 1+) pulmonic valve regurgitation. AORTA The visualized aorta is borderline dilated. Measurements - Sinus: 3.9 cm. Mid ascending aorta 3.9 cm. PULMONARY ARTERIES The pulmonary arteries are unseen or not interrogated. INTERVENTRICULAR SEPTUM There is no flow through the interventricular septum as detected by Doppler. PERICARDIUM There is no pericardial effusion. [facility] Echocardiography Echocardiography Rep ort: Transthoracic Echo [facility] Date of service: 12/13/2023 12:07:07 PM Ordering physician: LENIN CHAUDHARY Indication: Abnormal ECG Technologist: Rodolfo Tan [facility] Interpreting physician: Danilo Neville MD PATIENT: Name: MR. HOMERO MEI : 1945 Age: 77 years Gender: M History of hypertension and dyslipidemia. Primary rhythm: sinus. Height: 185.42 cm BSA: 2.15 m Weight: 89.81 kg BMI: 26.1 kg/m Heart rate 57 bpm Blood pressure 195/100 mmHg Color Doppler was utilized to interrogate the cardiac valves assessed and spectral Doppler was utilized to determine the flow velocities and pressure gradients reported in this exam. MEASUREMENTS: Value Indexed Normal Max aortic dimension 3.9 cm Ao < 3.8 Left atrium diameter 3.9 cm (2D) LAd < 4 LV ID (diastole) 4.8 cm (2D) 2.24 cm/m LV ID (systole) 3.0 cm (2D) 1.38 cm/m IVS, leaflet tips 1.3 cm (2D) Posterior wall thickness 1.1 cm (2D) Left ventricular mass 228 g (2D) 106 g/m LV stroke volume 101 ml (2D biplane) LV end diastolic volume 158 ml (2D biplane) 73.2 ml/m 34<=EDVi<75 LV end systolic volume 57 ml (2D biplane) 26.4 ml/m Ejection Fraction 64 % (2D biplane) EF > 52 FINDINGS: LEFT VENTRICLE The left ventricle is normal in size. Left ventricular systolic function is normal. Normal left ventricular diastolic function. Mitral annular lateral E/e': 12.3. Mitral annular septal E/e': 15.7. Wall Motion: All scored segments are normal. RIGHT VENTRICLE The right ventricle is dilated. Right ventricular systolic function is normal. RV systolic tissue Doppler velocity is 13.1 cm/s. Tricuspid annular displacement is 2.3 cm. Estimated right ventricular systolic pressure is 42 mmHg consistent with mild pulmonary hypertension. Estimated right atrial pressure is 15 mmHg based on IVC assessment. LEFT ATRIUM The left atrial cavity is normal in size. RIGHT ATRIUM The right atrial cavity is dilated. Inferior Vena Cava: The inferior vena cava appears dilated measuring 2.4 cm. The vessel decreases less than 50 percent with inspiration. MITRAL VALVE The mitral valve leaflets are structurally normal. There is trace mitral valve regurgitation. The pressure half time is 49 msec. The peak mitral E/A ratio is 0.72. The mitral flow deceleration time is 170 msec. TRICUSPID VALVE The tricuspid valve leaflets are structurally normal. There is mild (1+) tricuspid valve regurgitation. AORTIC VALVE The aortic valve cusps are structurally normal. There is trace aortic valve regurgitation. Tricuspid aortic valve. The peak gradient is 10 mmHg (peak velocity = 158.0 cm/s). PULMONIC VALVE The pulmonic valve cusps are structurally normal. There is trace (trace - 1+) pulmonic valve regurgitation. AORTA The visualized aorta is borderline dilated. Measurements - Sinus: 3.9 cm. Mid ascending aorta 3.9 cm. PULMONARY ARTERIES The pulmonary arteries are unseen or not interrogated. INTERVENTRICULAR SEPTUM There is no flow through the interventricular septum as detected by Doppler. PERICARDIUM There is no pericardial effusion. CONCLUSIONS: - Exam indication: Abnormal ECG - The left ventricle is normal in size. Left ventricular systolic function is normal. EF = 64 5% (2D biplane) Normal left ventricular diastolic function. - The right ventricle is dilated. Right ventricular systolic function is normal. - The right atrial cavity is dilated. - There are no significant valvular abnormalities. - The visualized aorta is borderline dilated with a maximal dimension of 3.9 cm. - There is mild (1+) tricuspid regurgitation. - Estimated right ventricular systolic pressure is 42 mmHg consistent with mild pulmonary hypertension. Estimated right atrial pressure is 15 mmHg based on IVC assessment. - The patient has not had a prior CC echocardiographic exam for comparison. * * * Final * * * CC [employer] Image : [id number] 7[employer] [facility] 12-12-2023 [facility] Telephone (CDLBME) HOMERO MEI ([id number]) 1945 Date Time Provider Department 12/12/23 SUMMER FLETCHER CDLBME During your visit today, we recorded the following information about you: Summer Fletcher RN 12/12/2023 1:46 PM Signed Spoke to pt's son and nurse Salome at shelter regarding reminder and instructions for stress test tomorrow. This included where to check in, length of test and no caffeine for 12 hours prior to test. Allergies As of Date: 12/12/2023 (No Active Allergies) Date Reviewed: 12/07/2023 Reviewed by: Arlyn Scott LPN - Fully Assessed Reason for Visit: Reminder Call [[id number]] Prescriptions as of 12/12/2023 - Cholecalciferol, Vitamin D3, 25 mcg (1,000 unit) cap Take 1 capsule by mouth once daily. - vit C/E/Zn/coppr/lutein/zeaxan (PRESERVISION AREDS-2 ORAL) Take by mouth. - latanoprost (XALATAN) 0.005 % ophthalmic solution 1 Drop daily at bedtime. - acetaminophen (TYLENOL EXTRA STRENGTH) 500 mg tablet Take 500 mg by mouth every 8 hours as needed. - tamsulosin (FLOMAX) 0.4 mg Take 1 capsule by mouth daily at bedtime. - ferrous sulfate 325 mg (65 mg iron) tablet Take 325 mg by mouth three times a day. - senna-docusate (SENNA-S) 8.6-50 mg per tablet Take 1 tablet by mouth once daily as needed for constipation. - docusate sodium (COLACE) 100 mg capsule Take 1 capsule by mouth two times a day as needed for constipation. - atorvastatin (LIPITOR) 20 mg tablet Take 1 tablet by mouth once daily. - lisinopril (ZESTRIL) 40 mg tablet Take 1 tablet by mouth once daily. - cyanocobalamin (VITAMIN B-12) 1,000 mcg tab Take 1 tablet by mouth once daily. - donepezil (ARICEPT) 10 mg tablet Take 1 tablet by mouth daily with breakfast. - fluticasone (FLONASE) 50 mcg/actuation nasal spray Use 2 Sprays in each nostril as needed. Rinse mouth after use. - pantoprazole DR (PROTONIX) 40 mg tablet Take 40 mg by mouth two times a day. Problem List As Of Date 12/12/2023 Noted Resolved Lumbago [M54.50] 10/13/2009 Neck Sprain and Strain [S13.9XXA] 10/13/2009 Enlargement of Lymph Nodes [R59.9] 10/13/2009 Irritable Bowel Syndrome [K58.9] 08/19/1997 10/13/2009 Anal and Rectal Polyp [K62.0, K62.1] 10/13/2009 Unspecified Hemorrhoids without Mention of Comp* 10/13/2009 Benign Neoplasm of Colon [D12.6] 10/13/2009 Contact Dermatitis and Other Eczema, due to Uns*08/18/2008 04/09/2009 Contact Dermatitis and Other Eczema due to Othe*08/18/2008 04/09/2009 Other Atopic Dermatitis and Related Conditions *08/18/2008 04/09/2009 XEROSIS///SEBACEOUS GLAND DIS NEC [L73.8] 08/18/2008 04/09/2009 Rosacea [L71.9] 08/18/2008 10/13/2009 TELANGIECTASIAS///CAPILLARY DIS NEC/NOS [I78.9] 08/18/2008 10/13/2009 Xerosis Cutis [L85.3] 04/09/2009 04/09/2009 Eczematous Dermatitis: ?Contact type vs other *04/09/2009 10/13/2009 Xerosis Cutis [L85.3] 04/09/2009 10/13/2009 Hyperlipidemia [E78.5] 10/13/2009 Viral warts, unspecified [B07.9] 02/03/2010 06/05/2016 Irritated//Inflamed Seborrheic Keratosis [L82.0]02/03/2010 Eczematous Dermatitis: Irritant [L25.9] 02/03/2010 Irritant dermatitis [L24.9] 02/03/2010 06/05/2016 Other seborrheic keratosis [L82.1] 02/03/2010 06/05/2016 Other psoriasis [L40.8] 02/03/2010 Bilateral inguinal hernia (BIH) [K40.20] 07/04/2010 11/01/2011 Irritable bowel syndrome [K58.9] 08/19/1997 Essential hypertension [I10] Personal history of colonic polyps [Z86.0100] DDD (degenerative disc disease), lumbar [M51.36* CHRISTIANO (obstructive sleep apnea) [G47.33] Abdominal pain, left lower quadrant [R10.32] 12/03/2012 06/05/2016 Right carpal tunnel syndrome [G56.01] 02/22/2015 Left carpal tunnel syndrome [G56.02] 02/22/2015 Impingement syndrome of right shoulder [M75.41] 02/22/2015 Iron deficiency anemia secondary to inadequate *06/02/2015 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* Vitamin D insufficiency [E55.9] 09/21/2022 Alzheimer's dementia without behavioral disturb*04/17/2023 BPH (benign prostatic hyperplasia) [N40.0] 07/17/2023 Encounter Status:Closed by SUMMER FLETCHER on 12/12/23 [facility] UA DIP, URINE (POC)on 2023 BILIRUBIN UA (POCT) Negative Negative [facility] CLARITY UA (POCT) Clear [facility] COLOR UA (POCT) Yellow [facility] GLUCOSE UA (POCT) Negative Negative mg/dL [facility] Hemoglobin Ql (U) Negative Negative [facility] KETONE UA (POCT) Trace Negative mg/dL [facility] LEUKOCYTES UA (POCT) Negative Negative [facility] NITRITE UA (POCT) Negative Negative [facility] PH UA (POCT) 6.0 4.5 - 8.0 [facility] Protein Ql (U) Negative Negative mg/dL [facility] SPECIFIC GRAVITY UA (POCT) 1.020 1.005 - 1.030 [facility] UROBILINOGEN UA (POCT) 0.2 Anna l E.U./dL [facility] Location:[facility], [address] [place], [address] [facility] POINT OF CARE [facility] UA DIP, URINE (POC)on 2023 BILIRUBIN UA (POCT) Negative Negative [facility] CLARITY UA (POCT) Clear [facility] COLOR UA (POCT) Yellow [facility] GLUCOSE UA (POCT) Negative Negative mg/dL [facility] Hemoglobin Ql (U) Negative Negative [facility] KETONE UA (POCT) Negative Negative mg/dL [facility] LEUKOCYTES UA (POCT) Negative Negative [facility] NITRITE UA (POCT) Negative Negative [facility] PH UA (POCT) 7.0 4.5 - 8.0 [facility] Protein Ql (U) Negative Negative mg/dL [facility] SPECIFIC GRAVITY UA (POCT) 1.020 1.005 - 1.030 [facility] UROBILINOGEN UA (POCT) 0.2 Anna l E.U./dL [facility] Location:[address], [place], [place], [id number] [place] [address] POINT OF CARE [facility] Comprehensive metabolic 2000 panelon 07-17-2023 Albumin [Mass/Vol] 4.2 g/dL 3.9 - 4.9 g/dL [facility] ALP [Catalytic activity/Vol] 85 U/L 38 - 113 U/L [facility] ALT [Catalytic activity/Vol] 12 U/L 10 - 54 U/L [facility] Anion gap [Moles/Vol] 13 mmol/L 9 - 18 mmol/L [facility] AST [Catalytic activity/Vol] 9 U/L Low 14 - 40 U/L [facility] Bilirubin [Mass/Vol] 0.3 mg/dL 0.2 - 1 .3 mg/dL [facility] Calcium [Mass/Vol] 9.4 mg/dL 8.5 - 10. 2 mg/dL [facility] Chloride [Moles/Vol] 100 mmol/L 97 - 10 5 mmol/L [facility] CO2 [Moles/Vol] 23 mmol/L 22 - 30 mmol/L [facility] Creatinine [Mass/Vol] 1.55 mg/dL High 0.73 - 1.22 mg/dL [facility] GFR/1.73 sq M.predicted among non-blacks MDRD (S/P/Bld) [Vol rate/Area] 46 mL/min/{1.73_m2} Low - PINF [facility] Comment on above: Estimated Glomerular Filtration Rate (eGFR) is calculated using the 2020 CKD-EPI creatinine equation. This equation utilizes serum creatinine, sex, and age as parameters. The creatinine assay has traceable calibration to isotope dilution-mass spectrometry. Refer to KDIGO guidelines for clinical interpretation. In patients with unstable renal function, e.g. those with acute kidney injury, the eGFR may not accurately reflect actual GFR. Glucose [Mass/Vol] 102 mg/dL High 74 - 99 mg/dL [facility] Comment on above: The [place] Diabete s Association (ADA) provides guidance for cutoff values for fasting glucose and random glucose. The ADA defines fasting as no caloric intake for at least 8 hours. Fasting plasma glucose results between 100 to 125 mg/dL indicate increased risk for diabetes (prediabetes). Fasting plasma glucose results greater than or equal to 126 mg/dL meet the criteria for diagnosis of diabetes. In the absence of unequivocal hyperglycemia, results should be confirmed by repeat testing. In a patient with classic symptoms of hyperglycemia or hyperglycemic crisis, random plasma glucose results greater than or equal to 200 mg/dL meet the criteria for diagnosis of diabetes. Reference: Standards of Medical Care in Diabetes 2016, [place] Diabetes Association. Diabetes Care. 2016.39(Suppl 1). Potassium [Moles/Vol] 4.7 mmol/L 3.7 - 5.1 mmol/L [facility] Protein [Mass/Vol] 6.9 g/dL 6.3 - 8.0 g/dL [facility] Sodium [Moles/Vol] 136 mmol/L 136 - 144 mmol/L [facility] Urea nitrogen [Mass/Vol] 33 mg/dL High 9 - 24 mg/dL [facility] FERRITINon 07-17-2023 Ferritin [Mass/Vol] 32.7 ng/mL 30.3 - 565.7 ng/mL [facility] Ferritin [Mass/Vol]on 2023 Interpretation and review of laboratory results Normal [facility] Iron and Iron binding capaci ty panelon 07-17-2023 Iron [Mass/Vol] 29 ug/dL Low 41 - 186 ug/dL [facility] Iron binding capacity [Mass/Vol] 351 ug/dL 232 - 386 ug/dL [facility] Iron/TIBC [Molar ratio] 8.3 % Low 15.0 - 57.0 % [facility] No Panel Informationon 07-16 Interpretation and review of laboratory results Abnormal [facility] UA DIP, URINE (POC)on 2023 BILIRUBIN UA (POCT) Negative Negative [facility] CLARITY UA (POCT) Clear [facility] COLOR UA (POCT) Light yellow [facility] GLUCOSE UA (POCT) Negative Negative mg/dL [facility] Hemoglobin Ql (U) Moderate Abnormal Negative [facility] Interpretation and review of laboratory results Abnormal [facility] KETONE UA (POCT) Negative Negative mg/dL [facility] LEUKOCYTES UA (POCT) Negative Negative [facility] NITRITE UA (POCT) Negative Negative [facility] PH UA (POCT) 6.0 4.5 - 8.0 [facility] Protein Ql (U) Negative Negative mg/dL [facility] SPECIFIC GRAVITY UA (POCT) 1.010 1.005 - 1.030 [facility] UROBILINOGEN UA (POCT) 0.2 Anna l E.U./dL [facility] Location:[facility], [address] [place], [address] [facility] POINT OF CARE [facility] 36on 06-21-2023 36 Spoke to Indy. State s that patient now lives in [facility]. I offered [place], [place], or [place] for appointments. Indy said that he wanted to try to get something closer to where patient lives, as transporting him can be challenging. He said that if he can't find someone closer, that he would call back and schedule in [place]. [facility] 36 Unable to contact juan diego azar X2 [facility] 36on 06-20-2023 36 Name of caller: Indy Contact phone number: [phone] Relationship to Patient: Son Provider: NEW PATIENT Practice: [facility] Chief Complaint/Reason for Call: Pt discharged 06/18/23 for low hemoglobin and was advised to schedule with [facility] as a new patient to be seen within a week. Please advise. Best time of day caller can be reached: ANy Patient advised that office/PCP has 24-48 business hours to return their call: Yes [facility] CBC W Auto Differential pane l (Bld)on 06-20-2023 Basophils (Bld) [#/Vol] 0.04 10*3/uL [facility] Basophils/100 WBC (Bld) 0.4 % [facility] Differential cell count method Nom (Bld) Auto [facility] Eosinophils (Bld) [#/Vol] 0.21 10*3/uL [facility] Eosinophils/100 WBC (Bld) 2.3 % [facility] Erythrocyte distribution width (RBC) [Ratio] 13.7 % 11.5 - 15.0 % [facility] Hematocrit (Bld) [Volume fraction] 27.1 % Low 39.0 - 51.0 % [facility] Hemoglobin (Bld) [Mass/Vol] 8.3 g/dL Low 13.0 - 17.0 g/dL [facility] Immature granulocytes (Bld) [#/Vol] 0.05 10*3/uL [facility] Immature granulocytes/100 WBC (Bld) 0.6 % [facility] Interpretation and review of laboratory results Abnormal [facility] Lymphocytes (Bld) [#/Vol] 1.48 10*3/uL [facility] Lymphocytes/100 WBC (Bld) 16.5 % [facility] MCH (RBC) [Entitic mass] 27.9 pg 26.0 - 34.0 pg [facility] MCHC (RBC) [Mass/Vol] 30.6 g/dL 30.5 - 36.0 g/dL [facility] MCV (RBC) [Entitic vol] 91.2 fL 80.0 - 100.0 fL [facility] Monocytes (Bld) [#/Vol] 0.67 10*3/uL [facility] Monocytes/100 WBC (Bld) 7.5 % [facility] Neutrophils (Bld) [#/Vol] 6.51 10*3/uL [facility] Neutrophils/100 WBC (Bld) 72.7 % [facility] Nucleated RBC (Bld) [#/Vol] [facility] Nucleated RBC/100 WBC (Bld) [Ratio] 0.0 % /100 WBC [facility] Platelet mean volume (Bld) [Entitic vol] 11.6 fL 9.0 - 12.7 fL [facility] Platelets (Bld) [#/Vol] 353 10*3/uL [facility] RBC (Bld) [#/Vol] 2.97 10*6/uL Low 4.20 - 6.00 m/uL [facility] WBC (Bld) [#/Vol] 8.96 10*3/uL [facility] Comprehensive metabolic 2000 panelon 06-20-2023 Albumin [Mass/Vol] 3.8 g/dL Low 3.9 - 4.9 g/dL [facility] ALP [Catalytic activity/Vol] 73 U/L 38 - 113 U/L [facility] ALT [Catalytic activity/Vol] 10 U/L 10 - 54 U/L [facility] Anion gap [Moles/Vol] 11 mmol/L 9 - 18 mmol/L [facility] AST [Catalytic activity/Vol] 8 U/L Low 14 - 40 U/L [facility] Bilirubin [Mass/Vol] mg/dL Low 0.2 - 1 .3 mg/dL [facility] Calcium [Mass/Vol] 9.4 mg/dL 8.5 - 10. 2 mg/dL [facility] Chloride [Moles/Vol] 104 mmol/L 97 - 10 5 mmol/L [facility] CO2 [Moles/Vol] 23 mmol/L 22 - 30 mmol/L [facility] Creatinine [Mass/Vol] 1.05 mg/dL 0.73 - 1.22 mg/dL [facility] GFR/1.73 sq M.predicted among non-blacks MDRD (S/P/Bld) [Vol rate/Area] 74 mL/min/{1.73_m2} - PINF [facility] Comment on above: Estimated Glomerular Filtration Rate (eGFR) is calculated using the 2020 CKD-EPI creatinine equation. This equation utilizes serum creatinine, sex, and age as parameters. The creatinine assay has traceable calibration to isotope dilution-mass spectrometry. Refer to KDIGO guidelines for clinical interpretation. In patients with unstable renal function, e.g. those with acute kidney injury, the eGFR may not accurately reflect actual GFR. Glucose [Mass/Vol] 105 mg/dL High 74 - 99 mg/dL [facility] Comment on above: The [place] Diabete s Association (ADA) provides guidance for cutoff values for fasting glucose and random glucose. The ADA defines fasting as no caloric intake for at least 8 hours. Fasting plasma glucose results between 100 to 125 mg/dL indicate increased risk for diabetes (prediabetes). Fasting plasma glucose results greater than or equal to 126 mg/dL meet the criteria for diagnosis of diabetes. In the absence of unequivocal hyperglycemia, results should be confirmed by repeat testing. In a patient with classic symptoms of hyperglycemia or hyperglycemic crisis, random plasma glucose results greater than or equal to 200 mg/dL meet the criteria for diagnosis of diabetes. Reference: Standards of Medical Care in Diabetes 2016, [place] Diabetes [employer]. Diabetes Care. 2016.39(Suppl 1). Potassium [Moles/Vol] 4.5 mmol/L 3.7 - 5.1 mmol/L [facility] Protein [Mass/Vol] 6.8 g/dL 6.3 - 8.0 g/dL [facility] Sodium [Moles/Vol] 138 mmol/L 136 - 144 mmol/L [facility] Urea nitrogen [Mass/Vol] 18 mg/dL 9 - 24 mg/dL [facility] FERRITINon 06-20-2023 Ferritin [Mass/Vol] 29.8 ng/mL Low 30.3 - 565.7 ng/mL [facility] Ferritin [Mass/Vol]on 2023 Interpretation and review of laboratory results Abnormal [facility] Iron and Iron binding capaci ty panelon 06-20-2023 Iron [Mass/Vol] 21 ug/dL Low 41 - 186 ug/dL [facility] Iron binding capacity [Mass/Vol] 272 ug/dL 232 - 386 ug/dL [facility] Iron/TIBC [Molar ratio] 7.7 % Low 15.0 - 57.0 % [facility] No Panel Informationon 06-19 Interpretation and review of laboratory results Abnormal [facility] 36on 06-19-2023 36 S: Patient admitted to: [facility] 06/12/23 B: Discharged on : 06/18/23 A: Hospital follow up call initiated to discuss any medication changes, follow up appointments and discharge instructions: Encephalopathy R: No contact x 1 at : [phone] [facility] CARECOORDon 06-19-2023 [place] Patient Choice Patient Name: HOMERO MEI Date of : 1945 [facility] [id number] 06-18-2023 [id number] Spoke to pt's son, Joseph [place], regarding home care services. Indy cortez, AOC offered. !st choice is [facility], second choice is [facility]. Referrals placed in care port and this PACC will notify son with accepting agency. [facility] BASIC METABOLIC PANELon 04-2 Anion gap [Moles/Vol] 6 mmol/L Normal 3-13 [facility] Comment on above: Performed By: #### L AB15 ####Dog Races Manager: KENDRA WOODS ([id number])[facility] [place] (SBHLAB)[address] Calcium [Mass/Vol] 9.0 mg/dL Normal 8.4-10.4 [facility] Comment on above: Performed By: #### L AB15 ####Dog Races Manager: KENDRA WOODS ([id number])[facility] [place] (SBHLAB)[address] Chloride [Moles/Vol] 109 mmol/L High 98-107 [facility] Comment on above: Performed By: #### L AB15 ####Dog Races Manager: KENDRA WOODS ([id number])[facility] [place] (SBHLAB)[address] CO2 [Moles/Vol] 24 mmol/L Normal 22-30 [facility] Comment on above: Performed By: #### L AB15 ####Dog Races Manager: KENDRA WOODS ([phone])[facility] [place] (SBHLAB)[address] Creatinine [Mass/Vol] 0.92 mg/dL Normal 0.66-1.25 [facility] Comment on above: Performed By: #### L AB15 ####Dog Races Manager: KENDRA WOODS ([id number])[facility]ITAL[facility] [place] (SBHLAB)[address] [place] [address] [place] GLOMERULAR FILTRATION RATE ML/MIN/1.73 SQ M.PREDICTED 86.7 mL/min/1.73m*2 Normal >60.0 [facility] Comment on above: Result Comment: Calc ulation based on the Chronic Kidney Disease Epidemiology Collaboration (CKD-EPI) equation refit without adjustment for race Performed By: #### L AB15 ####Dog Races Manager: KENDRA WOODS ([id number])[facility] [place] (SBHLAB)[address] Glucose [Mass/Vol] 108 mg/dL High 70-100 [facility] Comment on above: Performed By: #### L AB15 ####Dog Races Manager: KENDRA WOODS ([id number])[facility]ITAL[facility] [place] (SBHLAB)[address] Potassium [Moles/Vol] 4.0 mmol/L Normal 3.5-5.1 [facility] Comment on above: Performed By: #### L AB15 ####Dog Races Manager: KENDRA WOODS ([id number])[facility] (SBHLAB)[address] Sodium [Moles/Vol] 139 mmol/L Normal 135-145 [facility] Comment on above: Performed By: #### L AB15 ####Dog Races Manager: KENDRA WOODS ([id number])[facility] (SBHLAB)[address] Urea nitrogen [Mass/Vol] 13 mg/dL Normal 9-20 [facility] Comment on above: Performed By: #### L AB15 ####Dog Races Manager: KENDRA RUBIERIBERTO ([id number])[facility] (SBHLAB)[address] Basic metabolic 1998 panelon 06-18-2023 Anion gap [Moles/Vol] 6 mmol/L 3 - 13 mmol/L [facility] Calcium [Mass/Vol] 9.0 mg/dL 8.4 - 10. 4 mg/dL [facility] Chloride [Moles/Vol] 109 mmol/L High 98 - 10 7 mmol/L [facility] CO2 [Moles/Vol] 24 mmol/L 22 - 30 mmol/L [facility] Creatinine [Mass/Vol] 0.92 mg/dL 0.66 - 1.25 mg/dL [facility] GFR/1.73 sq M.predicted MDRD (S/P/Bld) [Vol rate/Area] 86.7 mL/min/{1.73_m2} - PINF [facility] Comment on above: Calculation based on the Chronic Kidney Disease Epidemiology Collaboration (CKD-EPI) equation refit without adjustment for race Glucose [Mass/Vol] 108 mg/dL High 70 - 100 mg/dL [facility] Interpretation and review of laboratory results Abnormal [facility] Potassium [Moles/Vol] 4.0 mmol/L 3.5 - 5.1 mmol/L [facility] Sodium [Moles/Vol] 139 mmol/L 135 - 145 mmol/L 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 TCC will continue to follow. Normal [facility] CBC W Auto Differential pane l (Bld)on 06-18-2023 Basophils (Bld) [#/Vol] 0.0 10*3/uL 0.0 - 0.2 10*3/uL [facility] Basophils/100 WBC (Bld) 0.4 % 0.0 - 2.0 % [facility] Eosinophils (Bld) [#/Vol] 0.3 10*3/uL 0.0 - 0.5 10*3/uL [facility] Eosinophils/100 WBC (Bld) 3.8 % 0.0 - 6.0 % [facility] Erythrocyte distribution width (RBC) [Ratio] 13.7 % 11.5 - 15.0 % [facility] Hematocrit (Bld) [Volume fraction] 25.8 % Low 40.0 - 52.0 % [facility] [facility] Hemoglobin (Bld) [Mass/Vol] 8.4 g/dL Low 13.0 - 18.0 g/dL [facility] Immature granulocytes (Bld) [#/Vol] 0.0 10*3/uL NINF - 0.1 10*3/uL [facility] Immature granulocytes/100 WBC (Bld) 0.3 % 0.0 - 2.0 % [facility] Interpretation and review of laboratory results Abnormal [facility] Lymphocytes (Bld) [#/Vol] 1.9 10*3/uL 1.0 - 4.3 10*3/uL [facility] Lymphocytes/100 WBC (Bld) 23.9 % 15.0 - 45.0 % [facility] MCH (RBC) [Entitic mass] 29.1 pg 26.0 - 34.[address] [facility] MCHC (RBC) [Mass/Vol] 32.6 % 30.5 - 36.0 % [facility] MCV (RBC) [Entitic vol] 89.3 fL 77.0 - 99.[address] [facility] Monocytes (Bld) [#/Vol] 0.5 10*3/uL 0.0 - 0.9 10*3/uL [facility] Monocytes/100 WBC (Bld) 6.2 % 5.0 - 13.0 % [facility] Neutrophils (Bld) [#/Vol] 5.2 10*3/uL 1.8 - 7.5 10*3/uL [facility] Neutrophils/100 WBC (Bld) 65.4 % 38.0 - 82.0 % [facility] Nucleated RBC/100 WBC (Bld) [Ratio] 0.0 % [facility] Platelet mean volume (Bld) [Entitic vol] 10.9 fL 9.0 - 12.[address] [facility] Platelets (Bld) [#/Vol] 304 10*3/uL 140 - 440 10*3/uL [facility] RBC (Bld) [#/Vol] 2.89 10*6/uL Low 4.40 - 5.90 10*6/uL [facility] WBC (Bld) [#/Vol] 7.9 10*3/uL 3.6 - 10.7 10*3/uL [facility] CBC WITH AUTO DIFFERENTIALon 06-18-2023 Basophils (Bld) [#/Vol] 0.0 10*3/uL Normal 0.0-0.2 [facility] Comment on above: Performed By: #### L [id number] ####Dog Races Manager: KENDRA WOODS ([phone])[facility] ([facility])[address] [place] [address] Basophils/100 WBC (Bld) 0.4 % Normal 0.0-2.0 [facility] Comment on above: Performed By: #### L [id number] ####Dog Races Manager: KENDRA WOODS ([phone])[facility] ([facility])[address] Eosinophils (Bld) [#/Vol] 0.3 10*3/uL Normal 0.0-0.5 [facility] Comment on above: Performed By: #### L [id number] ####Dog Races Manager: KENDRA WOODS ([phone])[facility] [place] ([facility])[address] Eosinophils/100 WBC (Bld) 3.8 % Normal 0.0-6.0 [facility] Comment on above: Performed By: #### L [id number] ####Dog Races Manager: KENDRA WOODS ([phone])[facility] ([facility])[address] Erythrocyte distribution width (RBC) [Ratio] 13.7 % Normal 11.5-15.0 [facility] Comment on above: Performed By: #### L [id number] ####Dog Races Manager: KENDRA WOODS ([phone])[facility] ([facility])[address] Hematocrit (Bld) [Volume fraction] 25.8 % Low 40.0-52.0 [facility] Comment on above: Performed By: #### L [id number] ####Dog Races Manager: KENDRA WOODS ([phone])[facility] ([facility])[address] Hemoglobin (Bld) [Mass/Vol] 8.4 g/dL Low 13.0-18.0 [facility] Comment on above: Performed By: #### L [id number] ####Dog Races Manager: KENDRA WOODS ([phone])[facility] [place] ([facility])[address] IMMATURE GRANS % 0.3 % Normal 0.0-2.0 [facility] Comment on above: Performed By: #### L [id number] ####Dog Races Manager: KENDRA WOODS ([phone])[facility] ([facility])[address] IMMATURE GRANS ABSOLUTE 0.0 10*3/uL Normal <0.1 [facility] Comment on above: Performed By: #### L [id number] ####Dog Races Manager: KENDRA OLIVASAnthonyERIBERTO ([phone])[facility] [place] ([facility])[address] Lymphocytes (Bld) [#/Vol] 1.9 10*3/uL Normal 1.0-4.3 [facility] Comment on above: Performed By: #### L [id number] ####Dog Races Manager: KENDRA PEGGY ([phone])[facility] ([facility])[address] Lymphocytes/100 WBC (Bld) 23.9 % Normal 15.0-45.0 [facility] Comment on above: Performed By: #### L [id number] ####Dog Races Manager: KENDRA RUBIERIBERTO ([phone])[facility] ([facility])[address] MCH (RBC) [Entitic mass] 29.1 pg Normal 26.0-34.0 [facility] Comment on above: Performed By: #### L [id number] ####Dog Races Manager: KENDRA RUBIERIBERTO ([phone])[facility] ([facility])[address] [place] [address] MCHC 32.6 % Normal 30.5-36.0 [facility] Comment on above: Performed By: #### L [id number] ####Dog Races Manager: KENDRA RUBIERIBERTO ([phone])[facility] [place] ([facility])[address] MCV (RBC) [Entitic vol] 89.3 fL Normal 77.0-99.0 [facility] Comment on above: Performed By: #### L [id number] ####Dog Races Manager: KENDRA WOODS ([phone])[facility] ([facility])[address] Monocytes (Bld) [#/Vol] 0.5 10*3/uL Normal 0.0-0.9 [facility] Comment on above: Performed By: #### L [id number] ####Dog Races Manager: KENDRA RUBIERIBERTO ([phone])[facility] [place] ([facility])[address] Monocytes/100 WBC (Bld) 6.2 % Normal 5.0-13.0 [facility] Comment on above: Performed By: #### L [id number] ####Dog Races Manager: KENDRA RUBIERIBERTO ([phone])[facility] [place] ([facility])[address] NEUTROPHILS ABSOLUTE 5.2 10*3/uL Normal 1.8-7.5 [facility] Comment on above: Performed By: #### L [id number] ####Dog Races Manager: KENDRA RUBIERIBERTO ([phone])[facility] [place] ([facility])[address] Neutrophils/100 WBC (Bld) 65.4 % Normal 38.0-82.0 [facility] Comment on above: Performed By: #### L [id number] ####Dog Races Manager: KENDRA RUBIERIBERTO ([phone])[facility] [place] ([facility])[address] NRBC 0.0 /100 WBCs Normal 0.0-2.0 [facility] Comment on above: Performed By: #### L [id number] ####Dog Races Manager: KENDRA RUBIERIBERTO ([phone])[facility] [place] ([facility])[address] Platelet mean volume (Bld) [Entitic vol] 10.9 fL Normal 9.0-12.7 [facility] Comment on above: Performed By: #### L [id number] ####Dog Races Manager: KENDRA WOODS ([phone])[facility] [place] ([facility])[address] [place] [address] [place] Platelets (Bld) [#/Vol] 304 10*3/uL Normal 140-440 [facility] Comment on above: Performed By: #### L [id number] ####Dog Races Manager: KENDRA WOODS ([phone])[facility] ([facility])[address] [place] [address] RBC (Bld) [#/Vol] 2.89 10*6/uL Low 4.40-5.90 [facility] Comment on above: Performed By: #### L [id number] ####Dog Races Manager: KENDRA WOODS ([phone])[facility] ([facility])[address] [place] [address] WBC (Bld) [#/Vol] 7.9 10*3/uL Normal 3.6-10.7 [facility] Comment on above: Performed By: #### L [id number] ####Dog Races Manager: KENDRAELIZABET WOODS ([phone])[facility] ([facility])[address] [place] [address] Progress Noteon 06-18-2023 Progress Note PHYSICAL THERAPY [facility] Treatment Note Name/MRN: Homero Mei ([id number]) Date of : 1945 Age: 77 y.o. Room[facility]Bed: [facility] A Visit #: 2 out of 7 visits Discharge Recommendation: Nursing Home Facility Other: TBD at next level of care Prior Level of Function ADL Assistance: Independent Ambulation Assistance: Independent Device(s) used: none - FWW PRN Transfer Assistance: Independent Assessment Pt demos good participation in session and is progressing toward PT goals. Pt completed sit to stands with CGA/SBA, ambulation with FWW with CGA, and ambulation with no device with CGA/Darell. Pt is limited by decreased safety awareness and impaired balance. Pt will benefit from continued skilled PT to improve overall independence and safety with mobility. Recommend SNF. Subjective Patient pleasant and agreeable to therapy. Pain: Pt denies any current pain. Medical Precautions: No active isolations Proper PPE donned/doffed in accordance with facility standards. Fall Risk: Gomez Fall Risk Score: 60 (High Risk) Precautions/Restrictions: N/A Overall Cognitive Status: Exceptions - Safety judgement: decreased awareness of need for assistance and decreased awareness of need for safety - Insights: decreased awareness of deficits - Sequencing: requires cues for some Family/Caregiver Present: none Objective Ambulation Ambulation 1 Assistive device(s) used: none Assist level: Contact Guard, Min Assist Distance (ft): 85' x1 Quality of gait: Pt required CGA/Darell for balance. Pt observed reaching for environmental supports during ambulation. Pt demos decreased stride length and slow liang. Ambulation 2 Assistive device(s) used: front wheeled walker Assist level: Contact Guard Distance (ft): 125' x1 Quality of gait: Improved stability noted with use of FWW compared to no device. Pt required cues for safe use and appropriate proximity to FWW. No LOB however CGA required d/t decreased safety awareness. Transfers/Mobility Sit to stand: Contact Guard Stand to sit: Contact Guard From EOB and from recliner with and without use of FWW. Pt demos slight instability upon standing but no acute LOB. Pt completed x10 total reps to improve recall of proper technique and independence with functional transfers. Device(s) used: none and front wheeled walker Stairs Stairs 1 Assistive device(s) used: none Assist level: Contact Guard # of steps: 11 Rails: bilateral Pt initially demonstrates reciprocal pattern with unsafe technique (Increased speed with only ball of foot on step.) Pt required frequent cues for step-to pattern and to slow down to decrease risk for falls. Pt demos decreased safety awareness. CGA provided to monitor stability. Plan Continue acute PT per plan of care. Safety/Education Safety Safety Devices in place: All fall risk precautions in place, call light within reach, left in chair, gait belt, patient at risk for falls, and no alarms engaged upon entry Restraints: No Education Education Given To: patient Education Provided: PT Role, PT Goals, Gait Training, Plan of Care, Transfer Training, and Fall Prevention Education Education Method: Verbal Barriers to Learning: Cognition Education Outcome: Verbalized Understanding and Continued Education Needed Outcome Measures AM-PAC AM-PAC Inpatient Mobility Raw Score : 18 AM-PAC Inpatient Mobility Raw Score (No Stairs) : 15 Goals Patient Stated Goal: Patient states he wants to get out of bed and walk. Encounter Problems Encounter Problems (Active) Balance Patient will maintain dynamic standing balance for 5 minutes with modified independence in order to demonstrate decreased risk of falling. (Progressing) Start: 06/15/23 Expected End: 06/22/23 Exercise Patient will complete lower extremity exercises for 1-2 sets / 10 reps in order to improve strength and activity tolerance for mobility. (Not Addressed) Start: 06/15/23 Expected End: 06/22/23 Mobility Patient will ambulate 100 feet with modified independence and least restrictive device in order to improve safety and independence with mobility. (Progressing) Start: 06/15/23 Expected End: 06/22/23 Patient will ascend and descend 12 stairs with one railing and supervision in order to safely negotiate home. (Not Addressed) Start: 06/15/23 Expected End: 06/22/23 Transfers Patient will perform bed mobility with modified independence in order to improve independence and prepare for out of bed mobility. (Progressing) Start: 06/15/23 Expected End: 06/22/23 Patient will complete functional transfers with least restrictive device with modified independence in order to prepare for ambulation. (Progressing) Start: 06/15/23 Expected End: 06/22/23 Therapy Time Individual Co-treatment Time In 1348 Time Out 1405 Minutes 17 Timed Code Treatment Minutes: 17 Minutes (x1 gait) Jamilah Elmore, (more content not included)... Normal [facility] Progress Note OCCUPATIONAL THERAPY [facility] Treatment Note Name/MRN: Homero Mei ([id number]) Date of : 1945 Age: 77 y.o. Room[facility]Bed: [facility] A Visit #: 1 out of 7 visits Discharge Recommendation: Nursing Home Facility Prior Level of Function ADL Assistance: Independent Ambulation Assistance: Independent, pt reports utilizing fww PRN Transfer Assistance: Independent Assessment Pt tolerated session fair, continues to improve with OT POC. Pt completed STS, functional mobility, and standing grooming with Min-CGA. Pt with poor FWW management, sequencing, and safety awareness. Pt unable to answer basic safety questions correctly. Pt not safe for homegoing. Pt is progressing with POC but is still below baseline and is a high fall risk. Pt would benefit from continued OT to improve activity tolerance, balance, and strength needed for improved occupational performance. Pt is recommended for SNF at D/C Subjective Pt supine in bed, pleasant and agreeable. Pain: Pt denies any current pain. Medical Precautions: No active isolations Proper PPE donned/doffed in accordance with facility standards. Fall Risk: Gomez Fall Risk Score: 60 (High Risk) Precautions/Restrictions: N/A Family/Caregiver Present: none Objective ADLs Grooming: Contact Guard Pt completed standing oral hygiene at sink with CGA for stability. Pt able to manage caps without hands on assist Bed Mobility Supine to sit: SBA Scooting: SBA Pt completed supine to sit and scooting with SBA. Pt required no physical assist needed. Transfers/Mobility Sit to stand: Contact Guard Stand to sit: Contact Guard, Pt completed STS from EOB and recliner with FWW and CGA. Pt required max VC for BUE placement, with poor carryover. Sitting balance: Modified Independent Standing balance: Contact Guard Functional mobility: Contact Guard, Min Assist Pt completed functional mobility with FWW and Min-CGA. Pt with poor FWW management and proper BUE placement, required frequent hands on assist to place BUE on proper spot. Pt intermittently walking with one foot inside the walker and one foot on the outside. Device(s) used: front wheeled walker and hospital bed Cognition - Safety judgement: decreased awareness of need for assistance and decreased awareness of need for safety - Insights: decreased awareness of deficits - Sequencing: requires cues for some Exceptions, significant decreased safety awareness Plan Continue acute OT per plan of care. Safety/Education Safety Safety Devices in place: All fall risk precautions in place, call light within reach, left in chair, gait belt, patient at risk for falls, nurse notified, and no alarms engaged upon entry Restraints: No Education Education Given To: patient Education Provided: OT Role, Plan of Care, Precautions, ADL Adaptive Strategies, Transfer Training, Equipment, Fall Prevention Education, and Discharge Recommendations Education Method: Verbal, Demonstration, and Teach Back Barriers to Learning: Cognition Education Outcome: Verbalized Understanding, Demonstrated Understanding, and Continued Education Needed AM-PAC AM-PAC Inpatient Daily Activity Raw Score: 20 ADL Inpatient CMS G-Code Modifier: CJ Goals Patient Stated Goal: to go home. Encounter Problems Encounter Problems (Active) Balance Patient will tolerate standing for 3 minutes with LRD to allow for increased independence in ADLs. (Progressing) Start: 06/15/23 Expected End: 06/29/23 Dressings Lower Extremities Patient will complete lower body ADLs with Mod I. (Not Addressed) Start: 06/15/23 Expected End: 06/29/23 Mobility Patient will demonstrate functional ambulation with LRD with Mod I. (Progressing) Start: 06/15/23 Expected End: 06/29/23 Toileting Patient will complete toileting tasks at standard toilet with modified independence. (Not Addressed) Start: 06/15/23 Expected End: 06/29/23 Transfers Patient will complete functional transfer with rolling walker with modified independence in order to prepare for ambulation. (Progressing) Start: 06/15/23 Expected End: 06/29/23 Therapy Time Individual Co-treatment Time In 1050 Time Out 1108 Minutes 18 Timed Code Treatment Minutes: 18 Minutes (1 ADL) CARMITA Gee Normal [facility] Progress Note [facility] Geriatric Medicine Inpatient Consult Service Admission Date: 06/12/2023 Assessment Principal Problem: Encephalopathy Plan Acute Metabolic Encephalopathy --Improving. No use of Seroquel - only on PRN - will DC. --Etiology likely acute illness, anemia, hospital environment, UTI --Encourage PO intake, time up in chair, family visits, supervised ambulation, and sleep hygiene --If agitated, assess for and consider treating for pain --QTc= 439 --Grant PRN Seroquel for ONLY if danger to self/others/treatment --SNF MAR reviewed - had received Hydroxyzine 06/11 and was to start Seroquel 25mg BID 06/12 and per son received at 3 pm pm 06/12. --Recommend Seroquel 12.5mg BID PRN for agitation. Would avoid Haldol at this time based on previous concern for possible Lewy Body Dementia (hx of hallucinations). - Will DC Seroquel PRN - has not used since admission. --Continue PRN melatonin at HS --avoid anticholinergic/benzodiazep ine medications --Monitor for constipation/urinary retention - last BM 06/16 per patient --Possible medication contributions: none identified Cognitive Impairment --follows with [facility]. Recent Neuropsychological testing. --concern for mild Dementia --Plans for driving evaluation when returns home -- TSH 2.899 and B12 237 --CT head 06/12/23 - Atrophy and chronic ischemic change. --MRI brain 07/24/22 - Moderate cortical, central, and hippocampal formation volume loss. --Lives alone, Sons assist with IADLs --Recommend another trial of Donepezil outpatient. Patient had tried for short time and stopped due to hip pain. Son felt he responded well to Donepezil. Debility --contributing factors include recent hospitalization, likely arthritis, UTI --PT/OT - decreased safety awareness, risk for falls. Ambulating 90 feet with CGA-min assist. Recommend SNF. --Recently at SNF --Plan for SNF at discharge Chronic pain --denies pain --was taking Meloxicam in addition to Aleve at home - discussed with patient to avoid due to GI bleeding --Recommend continuing Tylenol, can consider scheduling BPH Retention of urine --started on Flomax and Sanz placed during [facility] hospitalization --Sanz has been removed, monitor PVR B12 deficiency --continue B12 daily Follow-up: prn, please page with any questions/issues Subjective Chief Complaint: need to get stronger Geriatrics consulted for h/o dementia, now with catheter and confusion HPI- The patient is known to me. 77 y.o. year-old male with PMH of anemia, hyperlipidemia, BPH, lumbar DDD, Depression, CHRISTIANO, HTN, Vit D deficiency presented to [facility] on 06/12/23 with complaints of altered mental status. Recent hospital admission 1 week ago at [facility] for bleeding gastric ulcer. Required transfusion - 3 units of blood per family. Treated for SERAFIN, urinary retention - sanz placed. He was transferred to SNF. Became increasingly confused. Family reported history of Dementia but current behaviors not normal for him. On this admission, Hgb 6.9. Received transfusion. UA positive, sanz changed. Started treatment for catheterassociated UTI. Found to have MSSA in urine. GI followed for anemia. EGDcanceled. No signs of active bleed. GI Signed off. Reviewed primary notes- blood cultures negative. Renal ultrasound negative. Anemia work up showing iron deficiency and chronic disease. Continued on iron supplement. Hgb stable. Reviewed case management notes Reviewed therapy notes Interval History: Remains on general medical/surgical floor . -patient reports feeling well. Reports he is sleeping ok, appetite is good. States he would benefit from more therapy and agrees with returning to SNF. -nursing reports no concerns, patient doing well. Review of Systems HENT: Negative for congestion and trouble swallowing. Respiratory: Negative for cough and shortness of breath. Cardiovascular: Negative for chest pain and leg swelling. Gastrointestinal: Negative for abdominal pain, constipation (yesterday), diarrhea and nausea. Genitourinary: Negative for difficulty urinating and dysuria. Musculoskeletal: Negative for arthralgias and gait problem. Neurological: Negative for dizziness, weakness and headaches. Psychiatric/Behavioral: Negative for dysphoric mood and sleep disturbance. The patient is not nervous/anxious. Objective BP 118/70 (BP Location: Right arm, Patient Position: Sitting) Pulse 77 Temp (!) 35.9 ?C (96.6 ?F) (Temporal) Resp 17 Ht 6' 1 (1.854 m) Wt 195 lb (88.5 kg) SpO2 98% BMI 25.73 kg/m? No intake or output data in the 24 hours ending 06/18/23 0922 Wt Readings from Last 3 Encounters: 06/13/23 195 lb (88.5 kg) Current Facility-Administered Medications: acetaminophen (Tylenol) tablet 650 mg, 650 mg, Oral, q6h PRN OR acetaminophen (Tylenol) suppository 650 mg, 650 mg, Rectal, q6h PRN, Kobe Charles MD amLODIPine (Norvasc) tablet 2.5 mg, (more content not included)... Normal [facility] BASIC METABOLIC PANELon 05-21 Anion gap [Moles/Vol] 5 mmol/L Normal 3-13 [facility] Comment on above: Performed By: #### L [id number] ####Dog Races Manager: KENDRA WOODS ([phone])[facility] ([facility])[address] [place] [address] Calcium [Mass/Vol] 8.5 mg/dL Normal 8.4-10.4 [facility] Comment on above: Performed By: #### L [id number] ####Dog Races Manager: KENDRA WOODS ([phone])[facility] Chloride [Moles/Vol] 108 mmol/L High 98-107 [facility] Comment on above: Performed By: #### L AB15 ####Dog Races Manager: KENDRA WOODS ([phone])[facility] ([facility])[address] [place] [address] [place] CO2 [Moles/Vol] 25 mmol/L Normal 22-30 [facility] Comment on above: Performed By: #### L AB15 ####Dog Races Manager: KENDRA WOODS ([phone])[facility] ([facility])[address] Creatinine [Mass/Vol] 0.95 mg/dL Normal 0.66-1.25 [facility] Comment on above: Performed By: #### L AB15 ####Dog Races Manager: KENDRA WOODS ([phone])[facility] ([facility])[address] GLOMERULAR FILTRATION RATE ML/MIN/1.73 SQ M.PREDICTED 83.5 mL/min/1.73m*2 Normal >60.0 [facility] Comment on above: Result Comment: Calc ulation based on the Chronic Kidney Disease Epidemiology Collaboration (CKD-EPI) equation refit without adjustment for race Performed By: #### L AB15 ####Dog Races Manager: KENDRA WOODS ([phone])[facility] ([facility])[address] Glucose [Mass/Vol] 107 mg/dL High 70-100 [facility] Comment on above: Performed By: #### L AB15 ####Dog Races Manager: KENDRA WOODS ([phone])[facility] ([facility])[address] [place] [address] [place] Potassium [Moles/Vol] 3.6 mmol/L Normal 3.5-5.1 [facility] Comment on above: Performed By: #### L AB15 ####Dog Races Manager: KENDRA WOODS ([phone])[facility] ([facility])[address] [place] [address] [place] Sodium [Moles/Vol] 138 mmol/L Normal 135-145 [facility] Comment on above: Performed By: #### L AB15 ####Dog Races Manager: KENDRA WOODS ([phone])[facility] ([facility])[address] Urea nitrogen [Mass/Vol] 15 mg/dL Normal 9-20 [facility] Comment on above: Performed By: #### L AB15 ####Dog Races Manager: KENDRA WOODS ([phone])[facility] ([facility])[address] Basic metabolic 1998 panelon 06-17-2023 Anion gap [Moles/Vol] 5 mmol/L 3 - 13 mmol/L [facility] Calcium [Mass/Vol] 8.5 mg/dL 8.4 - 10. 4 mg/dL [facility] Chloride [Moles/Vol] 108 mmol/L High 98 - 10 7 mmol/L [facility] CO2 [Moles/Vol] 25 mmol/L 22 - 30 mmol/L [facility] Creatinine [Mass/Vol] 0.95 mg/dL 0.66 - 1.25 mg/dL [facility] GFR/1.73 sq M.predicted MDRD (S/P/Bld) [Vol rate/Area] 83.5 mL/min/{1.73_m2} - PINF [facility] Comment on above: Calculation based on the Chronic Kidney Disease Epidemiology Collaboration (CKD-EPI) equation refit without adjustment for race Glucose [Mass/Vol] 107 mg/dL High 70 - 100 mg/dL [facility] Interpretation and review of laboratory results Abnormal [facility] Potassium [Moles/Vol] 3.6 mmol/L 3.5 - 5.1 mmol/L [facility] Sodium [Moles/Vol] 138 mmol/L 135 - 145 mmol/L [facility] Urea nitrogen [Mass/Vol] 15 mg/dL 9 - 20 mg/dL [facility] CBC W Auto Differential pane l (Bld)on 06-17-2023 Basophils (Bld) [#/Vol] 0.0 10*3/uL 0.0 - 0.2 10*3/uL [facility] Basophils/100 WBC (Bld) 0.3 % 0.0 - 2.0 % [facility] Eosinophils (Bld) [#/Vol] 0.2 10*3/uL 0.0 - 0.5 10*3/uL [facility] Eosinophils/100 WBC (Bld) 3.2 % 0.0 - 6.0 % [facility] Erythrocyte distribution width (RBC) [Ratio] 13.7 % 11.5 - 15.0 % [facility] Hematocrit (Bld) [Volume fraction] 22.6 % Low 40.0 - 52.0 % [facility] Hemoglobin (Bld) [Mass/Vol] 7.4 g/dL Low 13.0 - 18.0 g/dL [facility] Immature granulocytes (Bld) [#/Vol] 0.0 10*3/uL NINF - 0.1 10*3/uL [facility] Immature granulocytes/100 WBC (Bld) 0.4 % 0.0 - 2.0 % [facility] Interpretation and review of laboratory results Abnormal [facility] Lymphocytes (Bld) [#/Vol] 1.5 10*3/uL 1.0 - 4.3 10*3/uL [facility] Lymphocytes/100 WBC (Bld) 19.6 % 15.0 - 45.0 % [facility] MCH (RBC) [Entitic mass] 29.1 pg 26.0 - 34.[address] [facility] MCHC (RBC) [Mass/Vol] 32.7 % 30.5 - 36.0 % [facility] MCV (RBC) [Entitic vol] 89.0 fL 77.0 - 99.[address] [facility] Monocytes (Bld) [#/Vol] 0.5 10*3/uL 0.0 - 0.9 10*3/uL [facility] Monocytes/100 WBC (Bld) 6.1 % 5.0 - 13.0 % [facility] Neutrophils (Bld) [#/Vol] 5.3 10*3/uL 1.8 - 7.5 10*3/uL [facility] Neutrophils/100 WBC (Bld) 70.4 % 38.0 - 82.0 % [facility] Nucleated RBC/100 WBC (Bld) [Ratio] 0.0 % [facility] Platelet mean volume (Bld) [Entitic vol] 10.8 fL 9.0 - 12.[address] [facility] Platelets (Bld) [#/Vol] 270 10*3/uL 140 - 440 10*3/uL [facility] RBC (Bld) [#/Vol] 2.54 10*6/uL Low 4.40 - 5.90 10*6/uL [facility] WBC (Bld) [#/Vol] 7.5 10*3/uL 3.6 - 10.7 10*3/uL [facility] CBC WITH AUTO DIFFERENTIALon 06-17-2023 Basophils (Bld) [#/Vol] 0.0 10*3/uL Normal 0.0-0.2 [facility] Comment on above: Performed By: #### L [id number] ####Dog Races Manager: KENDRA WOODS ([phone])[facility] [place] ([facility])[address] Basophils/100 WBC (Bld) 0.3 % Normal 0.0-2.0 [facility] Comment on above: Performed By: #### L [id number] ####Dog Races Manager: KENDRA WOODS ([phone])[facility] [place] ([facility])[address] Eosinophils (Bld) [#/Vol] 0.2 10*3/uL Normal 0.0-0.5 [facility] Comment on above: Performed By: #### L [id number] ####Dog Races Manager: KENDRA WOODS ([phone])[facility] [place] ([facility])[address] Eosinophils/100 WBC (Bld) 3.2 % Normal 0.0-6.0 [facility] Comment on above: Performed By: #### L [id number] ####Dog Races Manager: KENDRA WOODS ([phone])[facility] [place] ([facility])[address] Erythrocyte distribution width (RBC) [Ratio] 13.7 % Normal 11.5-15.0 [facility] Comment on above: Performed By: #### L [id number] ####Dog Races Manager: KENDRA WOODS ([phone])[facility] [place] ([facility])[address] Hematocrit (Bld) [Volume fraction] 22.6 % Low 40.0-52.0 [facility] Comment on above: Performed By: #### L [id number] ####Dog Races Manager: KENDRA RUBIERIBERTO ([phone])[facility] ([facility])[address] Hemoglobin (Bld) [Mass/Vol] 7.4 g/dL Low 13.0-18.0 [facility] Comment on above: Performed By: #### L [id number] ####Dog Races Manager: KENDRA PEGGY ([phone])[facility] ([facility])[address] IMMATURE GRANS % 0.4 % Normal 0.0-2.0 [facility] Comment on above: Performed By: #### L [id number] ####Dog Races Manager: KENDRA RUBIERIBERTO ([phone])[facility] ([facility])[address] [place] [address] IMMATURE GRANS ABSOLUTE 0.0 10*3/uL Normal <0.1 [facility] Comment on above: Performed By: #### L [id number] ####Dog Races Manager: KENDRA RUBIERIBERTO ([phone])[facility] ([facility])[address] [place] [address] Lymphocytes (Bld) [#/Vol] 1.5 10*3/uL Normal 1.0-4.3 [facility] Comment on above: Performed By: #### L [id number] ####Dog Races Manager: KENDRA RUBIERIBERTO ([phone])[facility] ([facility])[address] [place] [address] Lymphocytes/100 WBC (Bld) 19.6 % Normal 15.0-45.0 [facility] Comment on above: Performed By: #### L [id number] ####Dog Races Manager: KENDRA RUBIERIBERTO ([phone])[facility] ([facility])[address] [place] [address] MCH (RBC) [Entitic mass] 29.1 pg Normal 26.0-34.0 [facility] Comment on above: Performed By: #### L [id number] ####Dog Races Manager: KENDRA RUBIERIBERTO ([phone])[facility] [place] ([facility])[address] MCHC 32.7 % Normal 30.5-36.0 [facility] Comment on above: Performed By: #### L [id number] ####Dog Races Manager: KENDRA RUBIERIBERTO ([phone])[facility] [place] ([facility])[address] MCV (RBC) [Entitic vol] 89.0 fL Normal 77.0-99.0 [facility] Comment on above: Performed By: #### L [id number] ####Dog Races Manager: KENDRA RUBIERIBERTO ([phone])[facility] [place] ([facility])[address] Monocytes (Bld) [#/Vol] 0.5 10*3/uL Normal 0.0-0.9 [facility] Comment on above: Performed By: #### L [id number] ####Dog Races Manager: KENDRA WOODS ([phone])[facility] [place] ([facility])[address] Monocytes/100 WBC (Bld) 6.1 % Normal 5.0-13.0 [facility] Comment on above: Performed By: #### L [id number] ####Dog Races Manager: KENDRA RUBIERIBERTO ([phone])[facility] [place] ([facility])[address] NEUTROPHILS ABSOLUTE 5.3 10*3/uL Normal 1.8-7.5 [facility] Comment on above: Performed By: #### L [id number] ####Dog Races Manager: KENDRA WOODS ([phone])[facility] [place] ([facility])[address] Neutrophils/100 WBC (Bld) 70.4 % Normal 38.0-82.0 [facility] Comment on above: Performed By: #### L [id number] ####Dog Races Manager: KENDRA WOODS ([phone])[facility] [place] ([facility])[address] NRBC 0.0 /100 WBCs Normal 0.0-2.0 [facility] Comment on above: Performed By: #### L [id number] ####Dog Races Manager: KENDRA WOODS ([phone])[facility] [place] ([facility])[address] Platelet mean volume (Bld) [Entitic vol] 10.8 fL Normal 9.0-12.7 [facility] Comment on above: Performed By: #### L [id number] ####Dog Races Manager: KENDRA WOODS ([phone])[facility] [place] ([facility])[address] [place] [address] [place] Platelets (Bld) [#/Vol] 270 10*3/uL Normal 140-440 [facility] Comment on above: Performed By: #### L [id number] ####Dog Races Manager: KENDRA WOODS ([phone])[facility] [place] ([facility])[address] RBC (Bld) [#/Vol] 2.54 10*6/uL Low 4.40-5.90 [facility] Comment on above: Performed By: #### L [id number] ####Dog Races Manager: KENDRA WOODS ([phone])[facility] [place] ([facility])[address] [place] [address] [place] WBC (Bld) [#/Vol] 7.5 10*3/uL Normal 3.6-10.7 [facility] Comment on above: Performed By: #### L [id number] ####Dog Races Manager: KENDRA WOODS ([phone])[facility] [place] ([facility])[address] Progress Noteon 06-17-2023 Progress Note PHYSICAL THERAPY [facility] Treatment Note Name/MRN: Homero Mei ([id number]) Date of : 1945 Age: 77 y.o. Room/Bed: B4-929/B4-225 A Visit #: 1 out of 7 visits Discharge Recommendation: Nursing Home Facility Other: TBD at next level of care Prior Level of Function ADL Assistance: Independent Ambulation Assistance: Independent Device(s) used: none - FWW PRN Transfer Assistance: Independent Assessment Pt demos progress toward therapy goals. Pt is currently requiring SBA for bed mobility, CGA for functional transfers, CGA-min A for ambulation with no device, CGA for ambulation with FWW. Pt demos decreased safety awareness with FWW management and is at an increased risk for falls. Pt will continue to benefit from acute skilled PT to address current deficits. Recommendation for SNF remains appropriate as pt lives alone and is at an increased risk for falls. Subjective Pt pleasant and agreeable to therapy session Per RN okay for therapy Pain: Pt denies any current pain. Medical Precautions: No active isolations Proper PPE donned/doffed in accordance with facility standards. Fall Risk: Gomez Fall Risk Score: 60 (High Risk) Precautions/Restrictions: N/A Overall Cognitive Status: Exceptions - Memory: decreased short term memory - Safety judgement: decreased awareness of need for assistance and decreased awareness of need for safety - Problem solving: assistance required to generate solutions, assistance required to implement solutions, assistance required to identify errors made, assistance required to correct errors made, and decreased awareness of errors - Insights: decreased awareness of deficits - Initiation: requires cues for some - Sequencing: requires cues for some Overall Orientation Status: Oriented to Person Family/Caregiver Present: child(wendi) Objective Ambulation Ambulation 1 Assistive device(s) used: none Assist level: Contact Guard, Min Assist Distance (ft): ~90 feet Quality of gait: reciprocal stepping, shuffling, narrow SURINDER, postural sway, path deviations Pt demos short, reciprocal gait pattern, narrowed SURINDER with frequent path deviations and instability requiring min A to CGA throughout. Ambulation 2 Assistive device(s) used: front wheeled walker Assist level: Contact Guard Distance (ft): ~90 feet Quality of gait: reciprocal stepping, slow liang Pt demos short, reciprocal gait pattern, improvement in stability with FWW compared to no device. Pt requires cues for FWW management as pt leans walker forward onto wheels only and then back onto posts and attempts to negotiate. Cues provided for upright posture, maintain SURINDER within FWW with fair carryover. Transfers/Mobility Sit to stand: Contact Guard Stand to sit: Contact Guard Pt completes sit->stand from EOB to no device requiring CGA. Pt completes stand->sit to recliner at CGA. Pt completes additional x2 sit<->stand from EOB to FWW requiring hand over hand and verbal cues for safe hand placement for safe FWW management with limited carryover. Device(s) used: front wheeled walker Bed Mobility Supine to sit: SBA Pt completes at SBA with HOB elevated. Slightly increased time to complete. Plan Continue acute PT per plan of care. Safety/Education Safety Safety Devices in place: All fall risk precautions in place, call light within reach, left in chair, chair alarm in place, gait belt, patient at risk for falls, and nurse notified Restraints: N/A Education Education Given To: patient and son Education Provided: PT Role, PT Goals, Gait Training, Plan of Care, Transfer Training, Equipment, Discharge Recommendations, and Benefits of Increasing Activity Education Method: Verbal and Demonstration Barriers to Learning: Cognition Education Outcome: Verbalized Understanding, Demonstrated Understanding, and Continued Education Needed Outcome Measures AM-PAC AM-PAC Inpatient Mobility Raw Score (No Stairs) : 15 Goals Patient Stated Goal: Patient states he wants to get out of bed and walk. Encounter Problems Encounter Problems (Active) Balance Patient will maintain dynamic standing balance for 5 minutes with modified independence in order to demonstrate decreased risk of falling. (Progressing) Start: 06/15/23 Expected End: 06/22/23 Exercise Patient will complete lower extremity exercises for 1-2 sets / 10 reps in order to improve strength and activity tolerance for mobility. (Not Addressed) Start: 06/15/23 Expected End: 06/22/23 Mobility Patient will ambulate 100 feet with modified independence and least restrictive device in order to improve safety and independence with mobility. (Progressing) Start: 06/15/23 Expected End: 06/22/23 Patient will ascend and descend 12 stairs with one railing and supervision in order to safely negotiate home. (Not Addressed) Start: 06/15/23 Expected End: 06/22/23 Transfers Patient will (more content not included)... Normal [facility] BASIC METABOLIC PANELon 04-2 Anion gap [Moles/Vol] 6 mmol/L Normal 3-13 [facility] Comment on above: Performed By: #### L AB133, LAB69, LAB15, LAB68 ####Dog Races Manager: KENDRA WOODS ([phone])[facility] ([facility])[address] Calcium [Mass/Vol] 8.3 mg/dL Low 8.4-10.4 [facility] Comment on above: Performed By: #### L AB133, LAB69, LAB15, LAB68 ####Dog Races Manager: KENDRA WOODS ([phone])[facility] ([facility])[address] Chloride [Moles/Vol] 109 mmol/L High 98-107 [facility] Comment on above: Performed By: #### L AB133, LAB69, LAB15, LAB68 ####Dog Races Manager: KENDRA WOODS ([phone])[facility] ([facility])[address] CO2 [Moles/Vol] 24 mmol/L Normal 22-30 [facility] Comment on above: Performed By: #### L AB133, LAB69, LAB15, LAB68 ####Dog Races Manager: KENDRA WOODS ([phone])[facility] ([facility])[address] Creatinine [Mass/Vol] 0.92 mg/dL Normal 0.66-1.25 [facility] Comment on above: Performed By: #### L AB133, LAB69, LAB15, LAB68 ####Dog Races Manager: KENDRA WOODS ([phone])[facility] ([facility])[address] GLOMERULAR FILTRATION RATE ML/MIN/1.73 SQ M.PREDICTED 86.7 mL/min/1.73m*2 Normal >60.0 [facility] Comment on above: Result Comment: Calc ulation based on the Chronic Kidney Disease Epidemiology Collaboration (CKD-EPI) equation refit without adjustment for race Performed By: #### L AB133, LAB69, LAB15, LAB68 ####Dog Races Manager: KENDRA WOODS ([phone])[facility] ([facility])[address] Glucose [Mass/Vol] 117 mg/dL High 70-100 [facility] Comment on above: Performed By: #### L AB133, LAB69, LAB15, LAB68 ####Dog Races Manager: KENDRA WOODS ([phone])[facility] ([facility])[address] Potassium [Moles/Vol] 4.1 mmol/L Normal 3.5-5.1 [facility] Comment on above: Performed By: #### L AB133, LAB69, LAB15, LAB68 ####Dog Races Manager: KENDRA WOODS ([phone])[facility] ([facility])[address] Sodium [Moles/Vol] 138 mmol/L Normal 135-145 [facility] Comment on above: Performed By: #### L AB133, LAB69, LAB15, LAB68 ####Dog Races Manager: KENDRA WOODS ([phone])[facility] ([facility])[address] Urea nitrogen [Mass/Vol] 12 mg/dL Normal 9-20 [facility] Comment on above: Performed By: #### L AB133, LAB69, LAB15, LAB68 ####Dog Races Manager: KENDRA WOODS ([phone])[facility] ([facility])[address] Basic metabolic 1998 panelon 06-16-2023 Anion gap [Moles/Vol] 6 mmol/L 3 - 13 mmol/L [facility] Calcium [Mass/Vol] 8.3 mg/dL Low 8.4 - 10. 4 mg/dL [facility] Chloride [Moles/Vol] 109 mmol/L High 98 - 10 7 mmol/L [facility] CO2 [Moles/Vol] 24 mmol/L 22 - 30 mmol/L [facility] Creatinine [Mass/Vol] 0.92 mg/dL 0.66 - 1.25 mg/dL [facility] GFR/1.73 sq M.predicted MDRD (S/P/Bld) [Vol rate/Area] 86.7 mL/min/{1.73_m2} - PINF [facility] Comment on above: Calculation based on the Chronic Kidney Disease Epidemiology Collaboration (CKD-EPI) equation refit without adjustment for race Glucose [Mass/Vol] 117 mg/dL High 70 - 100 mg/dL [facility] Interpretation and review of laboratory results Abnormal [facility] Potassium [Moles/Vol] 4.1 mmol/L 3.5 - 5.1 mmol/L [facility] Sodium [Moles/Vol] 138 mmol/L 135 - 145 mmol/L [facility] Urea nitrogen [Mass/Vol] 12 mg/dL 9 - 20 mg/dL [facility] CBC W Auto Differential pane l (Bld)on 06-16-2023 Basophils (Bld) [#/Vol] 0.0 10*3/uL 0.0 - 0.2 10*3/uL [facility] Basophils/100 WBC (Bld) 0.3 % 0.0 - 2.0 % [facility] Eosinophils (Bld) [#/Vol] 0.3 10*3/uL 0.0 - 0.5 10*3/uL [facility] Eosinophils/100 WBC (Bld) 4.0 % 0.0 - 6.0 % [facility] Erythrocyte distribution width (RBC) [Ratio] 13.8 % 11.5 - 15.0 % [facility] Hematocrit (Bld) [Volume fraction] 22.0 % Low 40.0 - 52.0 % [facility] Hemoglobin (Bld) [Mass/Vol] 7.2 g/dL Low 13.0 - 18.0 g/dL [facility] Immature granulocytes (Bld) [#/Vol] 0.0 10*3/uL NINF - 0.1 10*3/uL [facility] Immature granulocytes/100 WBC (Bld) 0.3 % 0.0 - 2.0 % [facility] Interpretation and review of laboratory results Abnormal [facility] Lymphocytes (Bld) [#/Vol] 1.6 10*3/uL 1.0 - 4.3 10*3/uL [facility] Lymphocytes/100 WBC (Bld) 24.4 % 15.0 - 45.0 % [facility] MCH (RBC) [Entitic mass] 29.3 pg 26.0 - 34.[address] [facility] MCHC (RBC) [Mass/Vol] 32.7 % 30.5 - 36.0 % [facility] MCV (RBC) [Entitic vol] 89.4 fL 77.0 - 99.[address] [facility] Monocytes (Bld) [#/Vol] 0.5 10*3/uL 0.0 - 0.9 10*3/uL [facility] Monocytes/100 WBC (Bld) 7.7 % 5.0 - 13.0 % [facility] Neutrophils (Bld) [#/Vol] 4.1 10*3/uL 1.8 - 7.5 10*3/uL [facility] Neutrophils/100 WBC (Bld) 63.3 % 38.0 - 82.0 % [facility] Nucleated RBC/100 WBC (Bld) [Ratio] 0.0 % [facility] Platelet mean volume (Bld) [Entitic vol] 10.8 fL 9.0 - 12.[address] [facility] Platelets (Bld) [#/Vol] 245 10*3/uL 140 - 440 10*3/uL [facility] RBC (Bld) [#/Vol] 2.46 10*6/uL Low 4.40 - 5.90 10*6/uL [facility] WBC (Bld) [#/Vol] 6.5 10*3/uL 3.6 - 10.7 10*3/uL [facility] CBC WITH AUTO DIFFERENTIALon 06-16-2023 Basophils (Bld) [#/Vol] 0.0 10*3/uL Normal 0.0-0.2 [facility] Comment on above: Performed By: #### L [id number] #### Dog Races Manager: KENDRA WOODS ([phone]) [facility] [address] [place] [address] Basophils/100 WBC (Bld) 0.3 % Normal 0.0-2.0 [facility] Comment on above: Performed By: #### L [id number] #### Dog Races Manager: KENDRA WOODS ([phone]) [facility] [address] Eosinophils (Bld) [#/Vol] 0.3 10*3/uL Normal 0.0-0.5 [facility] Comment on above: Performed By: #### L [id number] #### Dog Races Manager: KENDRA RUBIERIBERTO ([phone]) [facility] ([facility]) [address] Eosinophils/100 WBC (Bld) 4.0 % Normal 0.0-6.0 [facility] Comment on above: Performed By: #### L [id number] #### Dog Races Manager: KENDRA WOODS ([phone]) [facility] ([facility]) [address] Erythrocyte distribution width (RBC) [Ratio] 13.8 % Normal 11.5-15.0 [facility] Comment on above: Performed By: #### L [id number] #### Dog Races Manager: KENDRA WOODS ([phone]) [facility] ([facility]) [address] [place] [address] Hematocrit (Bld) [Volume fraction] 22.0 % Low 40.0-52.0 [facility] Comment on above: Performed By: #### L [id number] #### Dog Races Manager: KENDRA WOODS ([phone]) [facility] ([facility]) [address] Hemoglobin (Bld) [Mass/Vol] 7.2 g/dL Low 13.0-18.0 [facility] Comment on above: Performed By: #### L [id number] #### Dog Races Manager: KENDRA WOODS ([phone]) [facility] ([facility]) [address] IMMATURE GRANS % 0.3 % Normal 0.0-2.0 [facility] Comment on above: Performed By: #### L [id number] #### Dog Races Manager: KENDRA RUBIERIBERTO ([phone]) [facility] ([facility]) [address] IMMATURE GRANS ABSOLUTE 0.0 10*3/uL Normal <0.1 [facility] Comment on above: Performed By: #### L [id number] #### Dog Races Manager: KENDRA RUBIERIBERTO ([phone]) [facility] ([facility]) [address] Lymphocytes (Bld) [#/Vol] 1.6 10*3/uL Normal 1.0-4.3 [facility] Comment on above: Performed By: #### L [id number] #### Dog Races Manager: KENDRA RUBIERIEBRTO ([phone]) [facility] ([facility]) [address] Lymphocytes/100 WBC (Bld) 24.4 % Normal 15.0-45.0 [facility] Comment on above: Performed By: #### L [id number] #### Dog Races Manager: KENDRA WOODS ([phone]) [facility] ([facility]) [address] MCH (RBC) [Entitic mass] 29.3 pg Normal 26.0-34.0 [facility] Comment on above: Performed By: #### L [id number] #### Dog Races Manager: KENDRA RUBIERIBERTO ([phone]) [facility] ([facility]) [address] MCHC 32.7 % Normal 30.5-36.0 [facility] Comment on above: Performed By: #### L [id number] #### Dog Races Manager: KENDRA WOODS ([phone]) [facility] [address] MCV (RBC) [Entitic vol] 89.4 fL Normal 77.0-99.0 [facility] Comment on above: Performed By: #### L [id number] #### Dog Races Manager: KENDRA WOODS ([phone]) [facility] ([facility]) [address] Monocytes (Bld) [#/Vol] 0.5 10*3/uL Normal 0.0-0.9 [facility] Comment on above: Performed By: #### L [id number] #### Dog Races Manager: KENDRA WOODS ([phone]) [facility] [place] ([facility]) [address] Monocytes/100 WBC (Bld) 7.7 % Normal 5.0-13.0 [facility] Comment on above: Performed By: #### L [id number] #### Dog Races Manager: KENDRA WOODS ([phone]) [facility] ([facility]) [address] NEUTROPHILS ABSOLUTE 4.1 10*3/uL Normal 1.8-7.5 [facility] Comment on above: Performed By: #### L [id number] #### Dog Races Manager: KENDRA WOODS ([phone]) [facility] ([facility]) [address] [address] Neutrophils/100 WBC (Bld) 63.3 % Normal 38.0-82.0 [facility] Comment on above: Performed By: #### L [id number] #### Dog Races Manager: KENDRA WOODS ([phone]) [facility] (SB[facility]) [address] [place] [address] [place] NRBC 0.0 /100 WBCs Normal 0.0-2.0 [facility] Comment on above: Performed By: #### L [id number] #### Dog Races Manager: KENDRA WOODS ([phone]) [facility] ([facility] [address] Platelet mean volume (Bld) [Entitic vol] 10.8 fL Normal 9.0-12.7 [facility] Comment on above: Performed By: #### L [id number] #### Dog Races Manager: KENDRA WOODS ([phone]) [facility] [place] (SBHLAB) [address] Platelets (Bld) [#/Vol] 245 10*3/uL Normal 140-440 [facility] Comment on above: Performed By: #### L [id number] #### Dog Races Manager: KENDRA WOODS ([phone]) [facility] (SBHLAB) [address] RBC (Bld) [#/Vol] 2.46 10*6/uL Low 4.40-5.90 [facility] Comment on above: Performed By: #### L [id number] #### Dog Races Manager: KENDRA WOODS ([phone]) [facility] ([facility]) [address] WBC (Bld) [#/Vol] 6.5 10*3/uL Normal 3.6-10.7 [facility] Comment on above: Performed By: #### L [id number] #### Dog Races Manager: KENDRA WOODS ([phone]) [facility] [place] (SBHLAB) [address] FERRITINon 06-16-2023 Ferritin [Mass/Vol] 21 ng/mL Normal 18-464 [facility] Comment on above: Performed By: #### L [id number], LAB69, LAB15, LAB68 ####Dog Races Manager: KENDRA WOODS ([phone])[facility] [place] (SBHLAB)[address] FOLATEon 06-16-2023 FOLATE RESULT 10.7 ng/mL Normal >=2.9 [facility] Comment on above: Performed By: #### L AB133, LAB69, LAB15, LAB68 ####Dog Races Manager: KENDRA WOODS ([phone])[facility] [place] (SBHLAB)[address] [place] [address] [place] Ferritin [Mass/Vol]on 2023 Interpretation and review of laboratory results Normal [facility] Folate [Mass/Vol]on 06-16-19 Interpretation and review of laboratory results Normal [facility] IRON AND TIBCon 06-16-2023 IRON BINDING CAPACITY 232 ug/dL Low 261-497 [facility] Comment on above: Performed By: #### L [id number] ####Dog Races Manager: KENDRA WOODS ([phone])[facility] (SBHLAB)[address] IRON SATURATION 11 % Low 15-50 [facility] Comment on above: Performed By: #### L [id number] ####Dog Races Manager: KENDRA WOODS ([phone])[facility] [place] (SBHLAB)[address] IRON, TOTAL 26 ug/dL Low 49-181 [facility] Comment on above: Performed By: #### L [id number] ####Dog Races Manager: KENDRA WOODS ([phone])[facility] (SBHLAB)[address] Iron and Iron binding capaci ty panelon 06-16-2023 Interpretation and review of laboratory results Abnormal [facility] Iron [Mass/Vol] 26 ug/dL Low 49 - 181 ug/dL [facility] Iron binding capacity [Mass/Vol] 232 ug/dL Low 261 - 497 ug/dL [facility] Iron saturation [Mass fraction] 11 % Low 15 - 50 % [facility] Laboratory - Chemistry and C hemistry - challengeon 06-16-2023 Folate [Mass/Vol] 10.7 ng/mL 2.9 - PINF ng/mL [facility] Ferritin [Mass/Vol] 21 ng/mL 18 - 464 ng/mL [facility] Transferrin [Mass/Vol] 170 mg/dL Low 206 - 381 mg/dL [facility] No Panel Informationon 06-15 Interpretation and review of laboratory results Abnormal [facility] TRANSFERRINon 06-16-2023 Transferrin [Mass/Vol] 170 mg/dL Low 206-381 [facility] Comment on above: Performed By: #### L AB133, LAB69, LAB15, LAB68 ####Dog Races Manager: KENDRA WOODS ([phone])[facility] (SBHLAB)[address] BASIC METABOLIC PANELon 04-2 Anion gap [Moles/Vol] 6 mmol/L Normal 3-13 [facility] Comment on above: Performed By: #### L [id number] ####Dog Races Manager: KENDRA WOODS ([phone])[facility] [place] (SBHLAB)[address] Calcium [Mass/Vol] 8.4 mg/dL Normal 8.4-10.4 [facility] Comment on above: Performed By: #### L [id number] ####Dog Races Manager: KENDRA WOODS ([phone])[facility] ([facility])[address] Chloride [Moles/Vol] 107 mmol/L Normal 98-107 [facility] Comment on above: Performed By: #### L [id number] ####Dog Races Manager: KENDRA WOODS ([phone])[facility] (SB[facility])[address] CO2 [Moles/Vol] 22 mmol/L Normal 22-30 [facility] Comment on above: Performed By: #### L AB15 ####Dog Races Manager: KENDRA WOODS ([phone])[facility] (SB[facility])[address] Creatinine [Mass/Vol] 1.22 mg/dL Normal 0.66-1.25 [facility] Comment on above: Performed By: #### L [id number] ####Dog Races Manager: KENDRA WOODS ([phone])[facility] (SB[facility])[address] GLOMERULAR FILTRATION RATE ML/MIN/1.73 SQ M.PREDICTED 61.8 mL/min/1.73m*2 Normal >60.0 [facility] Comment on above: Result Comment: Calc ulation based on the Chronic Kidney Disease Epidemiology Collaboration (CKD-EPI) equation refit without adjustment for race Performed By: #### L AB15 ####Dog Races Manager: KENDRA WOODS ([phone])[facility] (SBHLAB)[address] Glucose [Mass/Vol] 116 mg/dL High 70-100 [facility] Comment on above: Performed By: #### L AB15 ####Dog Races Manager: KENDRA WOODS ([phone])[facility] (SBAB)[address] Potassium [Moles/Vol] 3.7 mmol/L Normal 3.5-5.1 [facility] Comment on above: Performed By: #### L [id number] ####Dog Races Manager: KENDRA WOODS ([phone])[facility] ([facility] Sodium [Moles/Vol] 136 mmol/L Normal 135-145 [facility] Comment on above: Performed By: #### L AB15 ####Dog Races Manager: KENDRA WOODS ([phone])[facility] ([facility])[address] Urea nitrogen [Mass/Vol] 15 mg/dL Normal 9-20 [facility] Comment on above: Performed By: #### L AB15 ####Dog Races Manager: KENDRA WOODS ([phone])[facility] ([facility] Bacteria identified Cx Nom ( U)Ordered By: Tawana Dos Santos on 06-15-2023 Interpretation and review of laboratory results Abnormal [facility] PBP2A Negative [facility] Basic metabolic 1998 panelon 06-15-2023 Anion gap [Moles/Vol] 6 mmol/L 3 - 13 mmol/L [facility] Calcium [Mass/Vol] 8.4 mg/dL 8.4 - 10. 4 mg/dL [facility] Chloride [Moles/Vol] 107 mmol/L 98 - 10 7 mmol/L [facility] CO2 [Moles/Vol] 22 mmol/L 22 - 30 mmol/L [facility] Creatinine [Mass/Vol] 1.22 mg/dL 0.66 - 1.25 mg/dL [facility] GFR/1.73 sq M.predicted MDRD (S/P/Bld) [Vol rate/Area] 61.8 mL/min/{1.73_m2} - PINF [facility] Comment on above: Calculation based on the Chronic Kidney Disease Epidemiology Collaboration (CKD-EPI) equation refit without adjustment for race Glucose [Mass/Vol] 116 mg/dL High 70 - 100 mg/dL [facility] Interpretation and review of laboratory results Abnormal [facility] Potassium [Moles/Vol] 3.7 mmol/L 3.5 - 5.1 mmol/L [facility] Sodium [Moles/Vol] 136 mmol/L 135 - 145 mmol/L [facility] Urea nitrogen [Mass/Vol] 15 mg/dL 9 - 20 mg/dL [facility] CBC W Auto Differential pane l (Bld)on 06-15-2023 Basophils (Bld) [#/Vol] 0.0 10*3/uL 0.0 - 0.2 10*3/uL [facility] Basophils/100 WBC (Bld) 0.4 % 0.0 - 2.0 % [facility] Eosinophils (Bld) [#/Vol] 0.3 10*3/uL 0.0 - 0.5 10*3/uL [facility] Eosinophils/100 WBC (Bld) 3.2 % 0.0 - 6.0 % [facility] Erythrocyte distribution width (RBC) [Ratio] 13.8 % 11.5 - 15.0 % [facility] Hematocrit (Bld) [Volume fraction] 22.9 % Low 40.0 - 52.0 % [facility] Hemoglobin (Bld) [Mass/Vol] 7.7 g/dL Low 13.0 - 18.0 g/dL [facility] Immature granulocytes (Bld) [#/Vol] 0.0 10*3/uL NINF - 0.1 10*3/uL [facility] Immature granulocytes/100 WBC (Bld) 0.4 % 0.0 - 2.0 % [facility] Interpretation and review of laboratory results Abnormal [facility] Lymphocytes (Bld) [#/Vol] 1.6 10*3/uL 1.0 - 4.3 10*3/uL [facility] Lymphocytes/100 WBC (Bld) 19.5 % 15.0 - 45.0 % [facility] MCH (RBC) [Entitic mass] 30.0 pg 26.0 - 34.0 pg [facility] MCHC (RBC) [Mass/Vol] 33.6 % 30.5 - 36.0 % [facility] MCV (RBC) [Entitic vol] 89.1 fL 77.0 - 99.0 fL [facility] Monocytes (Bld) [#/Vol] 0.6 10*3/uL 0.0 - 0.9 10*3/uL [facility] Monocytes/100 WBC (Bld) 7.4 % 5.0 - 13.0 % [facility] Neutrophils (Bld) [#/Vol] 5.8 10*3/uL 1.8 - 7.5 10*3/uL [facility] Neutrophils/100 WBC (Bld) 69.1 % 38.0 - 82.0 % [facility] Nucleated RBC/100 WBC (Bld) [Ratio] 0.0 % [facility] Platelet mean volume (Bld) [Entitic vol] 10.9 fL 9.0 - 12.7 fL [facility] Platelets (Bld) [#/Vol] 257 10*3/uL 140 - 440 10*3/uL [facility] RBC (Bld) [#/Vol] 2.57 10*6/uL Low 4.40 - 5.90 10*6/uL [facility] WBC (Bld) [#/Vol] 8.4 10*3/uL 3.6 - 10.7 10*3/uL [facility] CBC WITH AUTO DIFFERENTIALon 06-15-2023 Basophils (Bld) [#/Vol] 0.0 10*3/uL Normal 0.0-0.2 [facility] Comment on above: Performed By: #### L [id number] ####Dog Races Manager: KENDRA WOODS ([phone])[facility] (SB[facility])[address] [place] [address] Basophils/100 WBC (Bld) 0.4 % Normal 0.0-2.0 [facility] Comment on above: Performed By: #### L [id number] ####Dog Races Manager: KENDRA OLIVASAnthonyERIBERTO ([phone])[facility] (SBAB)[address] Eosinophils (Bld) [#/Vol] 0.3 10*3/uL Normal 0.0-0.5 [facility] Comment on above: Performed By: #### L [id number] ####Dog Races Manager: KENDRA PEGGY ([phone])[facility] ([facility] Eosinophils/100 WBC (Bld) 3.2 % Normal 0.0-6.0 [facility] Comment on above: Performed By: #### L [id number] ####Dog Races Manager: KENDRA PEGGY ([phone])[facility] ([facility])[address] Erythrocyte distribution width (RBC) [Ratio] 13.8 % Normal 11.5-15.0 [facility] Comment on above: Performed By: #### L [id number] ####Dog Races Manager: KENDRA RUBIERIBERTO ([phone])[facility] ([facility])[address] Hematocrit (Bld) [Volume fraction] 22.9 % Low 40.0-52.0 [facility] Comment on above: Performed By: #### L [id number] ####Dog Races Manager: KENDRA RUBIERIBERTO ([phone])[facility] ([facility] Hemoglobin (Bld) [Mass/Vol] 7.7 g/dL Low 13.0-18.0 [facility] Comment on above: Performed By: #### L [id number] ####Dog Races Manager: KENDRA RUBIERIBERTO ([phone])[facility] ([facility] IMMATURE GRANS % 0.4 % Normal 0.0-2.0 [facility] Comment on above: Performed By: #### L [id number] ####Dog Races Manager: KENDRA WOODS ([phone])[facility] (SBAB)[address] IMMATURE GRANS ABSOLUTE 0.0 10*3/uL Normal <0.1 [facility] Comment on above: Performed By: #### L [id number] ####Dog Races Manager: KENDRA WOODS ([phone])[facility] ([facility])[address] Lymphocytes (Bld) [#/Vol] 1.6 10*3/uL Normal 1.0-4.3 [facility] Comment on above: Performed By: #### L [id number] ####Dog Races Manager: KENDRA RUBIERIBERTO ([phone])[facility] ([facility])[address] [place] [address] Lymphocytes/100 WBC (Bld) 19.5 % Normal 15.0-45.0 [facility] Comment on above: Performed By: #### L [id number] ####Dog Races Manager: KENDRA WOODS ([phone])[facility] ([facility])[address] MCH (RBC) [Entitic mass] 30.0 pg Normal 26.0-34.0 [facility] Comment on above: Performed By: #### L [id number] ####Dog Races Manager: KENDRA RUBIERIBERTO ([phone])[facility] ([facility])[address] [place] [address] MCHC 33.6 % Normal 30.5-36.0 [facility] Comment on above: Performed By: #### L [id number] ####Dog Races Manager: KENDRA WOODS ([phone])[facility] ([facility])[address] [place] [address] MCV (RBC) [Entitic vol] 89.1 fL Normal 77.0-99.0 [facility] Comment on above: Performed By: #### L [id number] ####Dog Races Manager: KENDRA WOODS ([phone])[facility] [place] (SBHLAB)[address] Monocytes (Bld) [#/Vol] 0.6 10*3/uL Normal 0.0-0.9 [facility] Comment on above: Performed By: #### L [id number] ####Dog Races Manager: KENDRA WOODS ([phone])[facility] [place] (SBHLAB)[address] Monocytes/100 WBC (Bld) 7.4 % Normal 5.0-13.0 [facility] Comment on above: Performed By: #### L [id number] ####Dog Races Manager: KENDRA WOODS ([phone])[facility] [place] (SBHLAB)[address] NEUTROPHILS ABSOLUTE 5.8 10*3/uL Normal 1.8-7.5 [facility] Comment on above: Performed By: #### L [id number] ####Dog Races Manager: KENDRA WOODS ([phone])[facility] [place] (SBHLAB)[address] Neutrophils/100 WBC (Bld) 69.1 % Normal 38.0-82.0 [facility] Comment on above: Performed By: #### L [id number] ####Dog Races Manager: KENDRA WOODS ([phone])[facility] [place] (SBHLAB)[address] NRBC 0.0 /100 WBCs Normal 0.0-2.0 [facility] Comment on above: Performed By: #### L [id number] ####Dog Races Manager: KENDRA WOODS ([phone])[facility] [place] (SBHLAB)[address] Platelet mean volume (Bld) [Entitic vol] 10.9 fL Normal 9.0-12.7 [facility] Comment on above: Performed By: #### L [id number] ####Dog Races Manager: KENDRA WOODS ([phone])[facility] [place] (SBHLAB)[address] Platelets (Bld) [#/Vol] 257 10*3/uL Normal 140-440 [facility] Comment on above: Performed By: #### L [id number] ####Dog Races Manager: KENDRA WOODS ([phone])[facility] [place] (SBHLAB)[address] RBC (Bld) [#/Vol] 2.57 10*6/uL Low 4.40-5.90 [facility] Comment on above: Performed By: #### L [id number] ####Dog Races Manager: KENDRA WOODS ([phone])[facility] [place] (SBHLAB)[address] WBC (Bld) [#/Vol] 8.4 10*3/uL Normal 3.6-10.7 [facility] Comment on above: Performed By: #### L [id number] ####Dog Races Manager: KENDRA WOODS ([phone])[facility] [place] (SBHLAB)[address] HEMOGLOBIN AND HEMATOCRIT, B LOODon 06-15-2023 Hematocrit (Bld) [Volume fraction] 23.4 % Low 40.0-52.0 [facility] Comment on above: Performed By: #### L [id number] ####Dog Races Manager: KENDRA WOODS ([phone])[facility] [place] (SBHL[facility])[address] Hemoglobin (Bld) [Mass/Vol] 7.8 g/dL Low 13.0-18.0 [facility] Comment on above: Performed By: #### L [id number] ####Dog Races Manager: KENDRA WOODS ([phone])[facility] [place] (SBHLAB)[address] Hemoglobin (Bld) [Mass/Vol]o n 06-15-2023 Hematocrit (Bld) [Volume fraction] 23.4 % Low 40.0 - 52.0 % [facility] Interpretation and review of laboratory results Abnormal [facility] - Hematology and Cell countson 06-15-2023 Hemoglobin (Bld) [Mass/Vol] 7.8 g/dL Low 13.0 - 18.0 g/dL [facility] - Microbiology an d Antimicrobial susceptibilityOrdered By: Tawana Dos Santos on 06-15-2023 Bacteria identified Cx Nom (U) >100,000 CFU/mL Staphylococcus aureus Abnormal [facility] US Kidneyon 06-15-2023 No hydronephrosis. 0.8 cm anechoic cyst of the upper pole. Report Dictated on Electronically Signed By: Miguel Gates MD Electronically Signed Date/Time: 06/15/2023 1:53 PM EDT [facility] DC [facility] 1945 [id number] Exam Date/Time: 06/15/2023 13:45 Procedure: US RENAL COMPLETE Ordering Provider: APONTE JONATHAN Reason For Exam: OBSTRUCTION EXAMINATION: RENAL ULTRASOUND HISTORY: Urinary tract infection. Urinary retention. TECHNIQUE: Sonography of the kidneys and urinary bladder was performed. Images were obtained and stored in a permanent archive. COMPARISON: None available RESULT: Right Kidney: -Renal length: 10.4 cm -Parenchyma: Normal parenchymal echogenicity. Normal parenchymal thickness. -Collecting system: No hydronephrosis. -Calculus: No echogenic, shadowing calculus. -Lesion: 0.8 cm anechoic cyst of the superior pole without significant posterior acoustic changes. Left Kidney: -Renal length: 10.2 cm -Parenchyma: Normal parenchymal echogenicity. Normal parenchymal thickness. -Collecting system: No hydronephrosis. -Calculus: No echogenic, shadowing calculus. -Lesion: None. Bladder: Decompressed by Sanz catheter and poorly assessed. [facility] Miguel Gates MD - 06/15/2023 Patient Name: HOMERO MEI : 1945 Exam Date/Time: 06/15/2023 13:45 Procedure: US RENAL COMPLETE Ordering Provider: APONTE JONATHAN Reason For Exam: OBSTRUCTION EXAMINATION: RENAL ULTRASOUND HISTORY: Urinary tract infection. Urinary retention. TECHNIQUE: Sonography of the kidneys and urinary bladder was performed. Images were obtained and stored in a permanent archive. COMPARISON: None available RESULT: Right Kidney: -Renal length: 10.4 cm -Parenchyma: Normal parenchymal echogenicity. Normal parenchymal thickness. -Collecting system: No hydronephrosis. -Calculus: No echogenic, shadowing calculus. -Lesion: 0.8 cm anechoic cyst of the superior pole without significant posterior acoustic changes. Left Kidney: -Renal length: 10.2 cm -Parenchyma: Normal parenchymal echogenicity. Normal parenchymal thickness. -Collecting system: No hydronephrosis. -Calculus: No echogenic, shadowing calculus. -Lesion: None. Bladder: Decompressed by Sanz catheter and poorly assessed. IMPRESSION: No hydronephrosis. 0.8 cm anechoic cyst of the upper pole. Report Dictated on Electronically Signed By: Miguel Gates MD Electronically Signed Date/Time: 06/15/2023 1:[address] [facility] Radiology Study observation (narrative) [facility] US KidneyOrdered By: Miguel Mustafa i on 06-15-2023 [facility] [employer] Work Phone: US RENAL COMPLETEon 06-15-19 24 US RENAL COMPLETE Patient Name: HOMERO DC : 1945 Exam Date/Time: 06/15/2023 13:45 Procedure: US RENAL COMPLETE Ordering Provider: APONTE JONATHAN Reason For Exam: OBSTRUCTION EXAMINATION: RENAL ULTRASOUND HISTORY: Urinary tract infection. Urinary retention. TECHNIQUE: Sonography of the kidneys and urinary bladder was performed. Images were obtained and stored in a permanent archive. COMPARISON: None available RESULT: Right Kidney: -Renal length: 10.4 cm -Parenchyma: Normal parenchymal echogenicity. Normal parenchymal thickness. -Collecting system: No hydronephrosis. -Calculus: No echogenic, shadowing calculus. -Lesion: 0.8 cm anechoic cyst of the superior pole without significant posterior acoustic changes. Left Kidney: -Renal length: 10.2 cm -Parenchyma: Normal parenchymal echogenicity. Normal parenchymal thickness. -Collecting system: No hydronephrosis. -Calculus: No echogenic, shadowing calculus. -Lesion: None. Bladder: Decompressed by Sanz catheter and poorly assessed. IMPRESSION: No hydronephrosis. 0.8 cm anechoic cyst of the upper pole. Report Dictated on Electronically Signed By: Miguel Gates MD Electronically Signed Date/Time: 06/15/2023 1:53 PM EDT Normal [facility] BASIC METABOLIC PANELon 04-2 Anion gap [Moles/Vol] 4 mmol/L Normal 3-13 [facility] Comment on above: Performed By: #### L [id number] ####Dog Races Manager: KENDRA WOODS ([phone])[facility] ([facility])[address] [place] [address] Calcium [Mass/Vol] 8.4 mg/dL Normal 8.4-10.4 [facility] Comment on above: Performed By: #### L [id number] ####Dog Races Manager: KENDRA WOODS ([phone])[facility] ([facility])[address] Chloride [Moles/Vol] 108 mmol/L High 98-107 [facility] Comment on above: Performed By: #### L [id number] ####Dog Races Manager: KENDRA WOODS ([phone])[facility] (SBHLAB)[address] [place] [address] [place] CO2 [Moles/Vol] 25 mmol/L Normal 22-30 [facility] Comment on above: Performed By: #### L AB15 ####Dog Races Manager: KENDRA WOODS ([phone])[facility] ([facility] [place] [address] [place] Creatinine [Mass/Vol] 0.84 mg/dL Normal 0.66-1.25 [facility] Comment on above: Performed By: #### L [id number] ####Dog Races Manager: KENDRA WOODS ([phone])[facility]ITAL[facility] (SBHLAB)[address] GLOMERULAR FILTRATION RATE ML/MIN/1.73 SQ M.PREDICTED >90.0 Normal >60.0 [facility] Comment on above: Result Comment: Calc ulation based on the Chronic Kidney Disease Epidemiology Collaboration (CKD-EPI) equation refit without adjustment for race Performed By: #### L [id number] ####Dog Races Manager: KENDRA WOODS ([phone])[facility]ITAL[facility] ([facility])[address] Glucose [Mass/Vol] 103 mg/dL High 70-100 [facility] Comment on above: Performed By: #### L AB15 ####Dog Races Manager: KENDRA WOODS ([phone])[facility] (SBHLAB)[address] [place] [address] [place] Potassium [Moles/Vol] 4.2 mmol/L Normal 3.5-5.1 [facility] Comment on above: Performed By: #### L AB15 ####Dog Races Manager: KENDRA WOODS ([phone])[facility] (SBHLAB)[address] [place] [address] [place] Sodium [Moles/Vol] 136 mmol/L Normal 135-145 [facility] Comment on above: Performed By: #### L AB15 ####Dog Races Manager: KENDRA WOODS ([phone])[facility] ([facility])[address] [place] [address] [place] Urea nitrogen [Mass/Vol] 17 mg/dL Normal 9-20 [facility] Comment on above: Performed By: #### L AB15 ####Dog Races Manager: KENDRA WOODS ([phone])[facility] ([facility])[address] BLOOD CULTUREon 06-14-2023 Bacteria identified Cx Nom (Bld) BLOOD CULTURE Reference No growth at 5 days ORDER COMMENTS: Blood Collection Site: Right Forearm [ S = SUSCEPTIBLE R = RESISTANT I = INTERMEDIATE S-DD = Susceptible-dose dependent NS = Non-susceptible NO = No Interpretation ] Normal [facility] Comment on above: Performed By: #### L [id number] ####Dog Races Manager: MELANI PAULINO ([phone])[address] Bacteria identified Cx Nom (Bld) BLOOD CULTURE Reference No growth at 5 days ORDER COMMENTS: Blood Collection Site: Left Antecubital [ S = SUSCEPTIBLE R = RESISTANT I = INTERMEDIATE S-DD = Susceptible-dose dependent NS = Non-susceptible NO = No Interpretation ] Normal [facility] Comment on above: Performed By: #### L [id number] ####Dog Races Manager: MELANI PAULINO ([phone])[address] Basic metabolic 1998 panelon 06-14-2023 Anion gap [Moles/Vol] 4 mmol/L 3 - 13 mmol/L [facility] Calcium [Mass/Vol] 8.4 mg/dL 8.4 - 10. 4 mg/dL [facility] Chloride [Moles/Vol] 108 mmol/L High 98 - 10 7 mmol/L [facility] CO2 [Moles/Vol] 25 mmol/L 22 - 30 mmol/L [facility] Creatinine [Mass/Vol] 0.84 mg/dL 0.66 - 1.25 mg/dL [facility] GFR/1.73 sq M.predicted MDRD (S/P/Bld) [Vol rate/Area] - PINF [facility] Comment on above: Calculation based on the Chronic Kidney Disease Epidemiology Collaboration (CKD-EPI) equation refit without adjustment for race Glucose [Mass/Vol] 103 mg/dL High 70 - 100 mg/dL [facility] Interpretation and review of laboratory results Abnormal [facility] Potassium [Moles/Vol] 4.2 mmol/L 3.5 - 5.1 mmol/L [facility] Sodium [Moles/Vol] 136 mmol/L 135 - 145 mmol/L [facility] Urea nitrogen [Mass/Vol] 17 mg/dL 9 - 20 mg/dL [facility] Managment Initi al Assessment Date: 06/14/2023 Patient Name: Homero Mei : 1945 Patient Information Source of Information: Patient Primary Substance Abuse Counselor Name/Contact Information: Son/LIN Moon via telephone Cognition/Language: Confused at baseline Permission given to speak with patient public relations representative/caregiver as indicated: Yes Confirmation of Payer with patient/family: Yes Payer Name: [facility] : No Confirmation of Primary Care Physician: Confirmed PCP Name: Dr Lenin Chaudhary Seen in last 2 years?: Yes Primary Caregiver: ([facility] staff) If assistance needed, confirmed caregiver ready, willing and able to care for patient at discharge: Yes Confirmed with: Yoselin from [facility] via telephone Living Arrangements Current Residence: Number of Floors Number of Entry Steps: Bed/Bath Levels: Facility: Nursing Facility Skilled Facility Name: [facility] Plan to Return: Yes Lives with: ([facility] staff and residents) Support Systems: Children, Family members, Friends/neighbors (SNF staff and residents) Activities of Daily Living Ambulation: Assistance (Uses WW) Bathing/Dressing: Assistance Elimination/Continence/Toil eting: Assistance Feeding: Independent Who Assists with Activities of Daily Living: [facility] staff Instrumental Activities of Daily Living Prescription Coverage: Yes Pharmacy Used: [facility] Medication Management: ([facility] nurses manage meds) Transportation/Shopping: Assistance Provider Transportation/Shopping Assistance Provider Name: William Transportation Mode: Car Needs Assistance with Transportation at Discharge: Yes ([employer] to set up return transport) Meal Preparation: Assistance Provider Meal Prep Assistance Provider Name: [facility] staff Laundry/Cleaning: Assistance Provider Laundry/Cleaning Assistance [facility] Finances/Bill Paying: Assistance Provider Finances/Bill Payer Assistance Provider Name: [place] Communication: Independent Types of Care Services/Equipment Utilized Care Services: Dialysis Type: Durable Medical Equipment: Walker, Cane, Raised Toilet Seat, Shower Seat, Other (Comment) (Grab bars) DME Provider: [facility] Patient's Goal/Discharge Plan Patient expects to be discharged to: Return to [facility] Discharge Planning Actions: Continue to follow, Nursing Home Facility referral indicated [place] of choice: [place] of choice discussed, Choice list provided Patient's Choice Rights and [employer] and Collaborative Relationships Disclosed as Indicated for Post-Acute Care: Yes Interdisciplinary Team Engagement: PT/OT Social Work Referral for: Additional Information: IA completed over the phone with son/LIN Moon. Patient is confused this admission due to UTI and Anemia. Introduced self and role. Patient is admitted to for encephalopathy. Anemic with UTI on admission, Hgb 7.5 this AM. Currently NPO in case EGD needs done. Possible IV iron transfusions. On IV Rocephin for UTI, chronic Sanz Cath in place. From [facility], plan to return per [place]. 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 [employer]ILY [employer] to set up return transport. Sees Dr Lenin Chaudhary (PCP) routinely. Has [facility] and [facility] [place] denies any financial difficulties. Plan to DC back to SNF when medically stable. Son/LIN verbalizes understanding and is in agreement with POC. Laure Prabhakar RN Normal [facility] CBC W Auto Differential pane l (Bld)on 06-14-2023 Basophils (Bld) [#/Vol] 0.0 10*3/uL 0.0 - 0.2 10*3/uL [facility] Basophils/100 WBC (Bld) 0.3 % 0.0 - 2.0 % [facility] Eosinophils (Bld) [#/Vol] 0.3 10*3/uL 0.0 - 0.5 10*3/uL [facility] Eosinophils/100 WBC (Bld) 4.5 % 0.0 - 6.0 % [facility] Erythrocyte distribution width (RBC) [Ratio] 13.9 % 11.5 - 15.0 % [facility] Hematocrit (Bld) [Volume fraction] 22.2 % Low 40.0 - 52.0 % [facility] Hemoglobin (Bld) [Mass/Vol] 7.4 g/dL Low 13.0 - 18.0 g/dL [facility] Immature granulocytes (Bld) [#/Vol] 0.0 10*3/uL NINF - 0.1 10*3/uL [facility] Immature granulocytes/100 WBC (Bld) 0.3 % 0.0 - 2.0 % [facility] Interpretation and review of laboratory results Abnormal [facility] Lymphocytes (Bld) [#/Vol] 1.4 10*3/uL 1.0 - 4.3 10*3/uL [facility] Lymphocytes/100 WBC (Bld) 21.1 % 15.0 - 45.0 % [facility] MCH (RBC) [Entitic mass] 29.8 pg 26.0 - 34.[address] [facility] MCHC (RBC) [Mass/Vol] 33.3 % 30.5 - 36.0 % [facility] MCV (RBC) [Entitic vol] 89.5 fL 77.0 - 99.[address] [facility] Monocytes (Bld) [#/Vol] 0.5 10*3/uL 0.0 - 0.9 10*3/uL [facility] Monocytes/100 WBC (Bld) 7.3 % 5.0 - 13.0 % [facility] Neutrophils (Bld) [#/Vol] 4.3 10*3/uL 1.8 - 7.5 10*3/uL [facility] Neutrophils/100 WBC (Bld) 66.5 % 38.0 - 82.0 % [facility] Nucleated RBC/100 WBC (Bld) [Ratio] 0.0 % [facility] Platelet mean volume (Bld) [Entitic vol] 11.2 fL 9.0 - 12.[address] [facility] Platelets (Bld) [#/Vol] 216 10*3/uL 140 - 440 10*3/uL [facility] RBC (Bld) [#/Vol] 2.48 10*6/uL Low 4.40 - 5.90 10*6/uL [facility] WBC (Bld) [#/Vol] 6.4 10*3/uL 3.6 - 10.7 10*3/uL [facility] CBC WITH AUTO DIFFERENTIALon 06-14-2023 Basophils (Bld) [#/Vol] 0.0 10*3/uL Normal 0.0-0.2 [facility] Comment on above: Performed By: #### L [id number] ####Dog Races Manager: KENDRA WOODS ([phone])[facility] (SBHLAB)[address] Basophils/100 WBC (Bld) 0.3 % Normal 0.0-2.0 [facility] Comment on above: Performed By: #### L [id number] ####Dog Races Manager: KENDRA WOODS ([phone])[facility] (SBHLAB)[address] Eosinophils (Bld) [#/Vol] 0.3 10*3/uL Normal 0.0-0.5 [facility] Comment on above: Performed By: #### L [id number] ####Dog Races Manager: KENDRA WOODS ([phone])[facility] (SBHLAB)[address] Eosinophils/100 WBC (Bld) 4.5 % Normal 0.0-6.0 [facility] Comment on above: Performed By: #### L [id number] ####Dog Races Manager: KENDRA WOODS ([phone])[facility] (SBHLAB)[address] Erythrocyte distribution width (RBC) [Ratio] 13.9 % Normal 11.5-15.0 [facility] Comment on above: Performed By: #### L [id number] ####Dog Races Manager: KENDRA WOODS ([phone])[facility]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 Laboratory - Chemistry and C hemistry - challengeon 06-13-2023 Cobalamin (Vitamin B12) [Mass/Vol] 237 pg/mL Low 239 - 931 pg/mL [facility] TSH Qn 2.899 m[IU]/L [facility] Magnesium [Mass/Vol] 2.3 mg/dL 1.6 - 2 .3 mg/dL [facility] - Hematology and Cell countson 06-13-2023 Hemoglobin (Bld) [Mass/Vol] 9.0 g/dL Low 13.0 - 18.0 g/dL [facility] Magnesium [Mass/Vol]on 06-12 Interpretation and review of laboratory results Normal [facility] THYROID STIMULATING HORMONEo n 06-13-2023 THYROID STIMULATING HORMONE 2.899 uIU/mL Normal 0.465-4.68 0 [facility] Comment on above: Performed By: #### L AB129, LAB67, LAB17 ####Dog Races Manager: KENDRA WOODS ([phone])[facility] (SBHLAB)[address] [place] [address] TSH Qnon 06-13-2023 Interpretation and review of laboratory results Normal [facility] VITAMIN B12on 06-13-2023 Cobalamin (Vitamin B12) [Mass/Vol] 237 pg/mL Low 239-931 [facility] Comment on above: Performed By: #### L AB129, LAB67, LAB17 ####Dog Races Manager: KENDRA WOODS ([phone])[facility] ([facility])[address] [place] [address] BASIC METABOLIC PANELon 05-21 Anion gap [Moles/Vol] 7 mmol/L Normal 3-13 [facility] Comment on above: Performed By: #### L AB239 #### Dog Races Manager: MELANI PAULINO ([phone]) [facility] [address] [place] [address] Calcium [Mass/Vol] 8.5 mg/dL Normal 8.4-10.4 [facility] Comment on above: Performed By: #### L AB239 #### Dog Races Manager: MELANI PAULINO ([phone]) [facility] [address] [place] [address] Chloride [Moles/Vol] 105 mmol/L Normal 98-107 [facility] Comment on above: Performed By: #### L AB239 #### Dog Races Manager: MELANI PAULINO ([phone]) [facility] ([facility] [address] [place] [address] [place] CO2 [Moles/Vol] 24 mmol/L Normal 22-30 [facility] Comment on above: Performed By: #### L AB239 #### Dog Races Manager: MELANI PAULINO ([phone]) [facility] ([facility]) [address] [place] [address] Creatinine [Mass/Vol] 1.21 mg/dL Normal 0.66-1.25 [facility] Comment on above: Performed By: #### L AB239 #### Dog Races Manager: MELANI PAULINO ([phone]) [facility] ([facility] [address] [place] [address] [place] GLOMERULAR FILTRATION RATE ML/MIN/1.73 SQ M.PREDICTED 62.4 mL/min/1.73m*2 Normal >60.0 [facility] Comment on above: Result Comment: Calc ulation based on the Chronic Kidney Disease Epidemiology Collaboration (CKD-EPI) equation refit without adjustment for race Performed By: #### L AB239 #### Dog Races Manager: MELANI PAULINO ([phone]) [facility] ([facility]) [address] [place] [address] [place] Glucose [Mass/Vol] 117 mg/dL High 70-100 [facility] Comment on above: Performed By: #### L AB239 #### Dog Races Manager: MELANI PAULINO ([phone]) [facility] ([facility]) [address] [place] [address] Potassium [Moles/Vol] 3.9 mmol/L Normal 3.5-5.1 [facility] Comment on above: Performed By: #### L AB239 #### Dog Races Manager: MELANI PAULINO ([phone]) [facility] ([facility]) [address] [place] [address] Sodium [Moles/Vol] 136 mmol/L Normal 135-145 [facility] Comment on above: Performed By: #### L AB239 #### Dog Races Manager: MELANI PAULINO ([phone]) [facility] ([facility] [address] [place] [address] Urea nitrogen [Mass/Vol] 20 mg/dL Normal 9-20 [facility] Comment on above: Performed By: #### L AB239 #### Dog Races Manager: MELANI PAULINO ([phone]) [facility] ([facility]) [address] [place] [address] BLOOD TYPE AND SCREEN GELon 06-12-2023 ABO GROUPING A Normal [facility] Comment on above: Performed By: #### L [id number] ####Dog Races Manager: KENDRA WOODS ([phone])[facility] ([facility])[address] [place] [address] [place] RH TYPE IN BLOOD Negative Normal [facility] Comment on above: Performed By: #### L AB276 ####Dog Races Manager: KENDRA WOODS ([phone])[facility] ([facility])[address] [place] [address] [place] Basic metabolic 1998 panelon 06-12-2023 Anion gap [Moles/Vol] 7 mmol/L 3 - 13 mmol/L [facility] Calcium [Mass/Vol] 8.5 mg/dL 8.4 - 10. 4 mg/dL [facility] Chloride [Moles/Vol] 105 mmol/L 98 - 10 7 mmol/L [facility] CO2 [Moles/Vol] 24 mmol/L 22 - 30 mmol/L [facility] Creatinine [Mass/Vol] 1.21 mg/dL 0.66 - 1.25 mg/dL [facility] GFR/1.73 sq M.predicted MDRD (S/P/Bld) [Vol rate/Area] 62.4 mL/min/{1.73_m2} - PINF [facility] Comment on above: Calculation based on the Chronic Kidney Disease Epidemiology Collaboration (CKD-EPI) equation refit without adjustment for race Glucose [Mass/Vol] 117 mg/dL High 70 - 100 mg/dL [facility] Interpretation and review of laboratory results Abnormal [facility] Potassium [Moles/Vol] 3.9 mmol/L 3.5 - 5.1 mmol/L [facility] Sodium [Moles/Vol] 136 mmol/L 135 - 145 mmol/L [facility] Urea nitrogen [Mass/Vol] 20 mg/dL 9 - 20 mg/dL [facility] Blood type and Crossmatch pa hernandez (Bld)on 06-12-2023 Blood group antibody screen GEL Ql Negative [facility] CBC (HEMOGRAM)on 06-12-2023 Erythrocyte distribution width (RBC) [Ratio] 13.8 % Normal 11.5-15.0 [facility] Comment on above: Performed By: #### L AB294 ####Dog Races Manager: KENDRA WOODS ([phone])[facility] ([facility])[address] [place] [address] Hematocrit (Bld) [Volume fraction] 20.8 % Low 40.0-52.0 [facility] Comment on above: Performed By: #### L AB294 ####Dog Races Manager: KENDRA WOODS ([phone])[facility] ([facility])[address] [place] [address] Hemoglobin (Bld) [Mass/Vol] 6.9 g/dL Critically low 13.0-18.0 [facility] Comment on above: Performed By: #### L AB294 ####Dog Races Manager: KENDRA [phone])[facility] ([facility])[address] MCH (RBC) [Entitic mass] 30.0 pg Normal 26.0-34.0 [facility] Comment on above: Performed By: #### L AB294 ####Dog Races Manager: KENDRA WOODS ([phone])[facility] (SB[facility])[address] MCHC 33.2 % Normal 30.5-36.0 [facility] Comment on above: Performed By: #### L AB294 ####Dog Races Manager: KENDRA WOODS ([phone])[facility] (SB[facility])[address] MCV (RBC) [Entitic vol] 90.4 fL Normal 77.0-99.0 [facility] Comment on above: Performed By: #### L AB294 ####Dog Races Manager: KENDRA WOODS ([phone])[facility] ([facility])[address] Platelet mean volume (Bld) [Entitic vol] 11.0 fL Normal 9.0-12.7 [facility] Comment on above: Performed By: #### L AB294 ####Dog Races Manager: KENDRA WOODS ([phone])[facility] ([facility])[address] Platelets (Bld) [#/Vol] 228 10*3/uL Normal 140-440 [facility] Comment on above: Performed By: #### L AB294 ####Dog Races Manager: KENDRA WOODS ([phone])[facility] ([facility])[address] RBC (Bld) [#/Vol] 2.30 10*6/uL Low 4.40-5.90 [facility] Comment on above: Performed By: #### L AB294 ####Dog Races Manager: KENDRA WOODS ([phone])[facility] ([facility])[address] WBC (Bld) [#/Vol] 7.7 10*3/uL Normal 3.6-10.7 [facility] Comment on above: Performed By: #### L AB294 ####Dog Races Manager: KENDRA WOODS ([phone])[facility] ([facility])[address] CBC panel Auto (Bld)Ordered By: Ned Gao on 06-12-2023 Erythrocyte distribution width (RBC) [Ratio] 13.8 % 11.5 - 15.0 % [facility] Hematocrit (Bld) [Volume fraction] 20.8 % Low 40.0 - 52.0 % [facility] Hemoglobin (Bld) [Mass/Vol] 6.9 g/dL Critically low 13.0 - 18.0 g/dL [facility] Interpretation and review of laboratory results Abnormal [facility] MCH (RBC) [Entitic mass] 30.0 pg 26.0 - 34.[address] [facility] MCHC (RBC) [Mass/Vol] 33.2 % 30.5 - 36.0 % [facility] MCV (RBC) [Entitic vol] 90.4 fL 77.0 - 99.[address] [facility] Platelet mean volume (Bld) [Entitic vol] 11.0 fL 9.0 - 12.[address] [facility] Platelets (Bld) [#/Vol] 228 10*3/uL 140 - 440 10*3/uL [facility] RBC (Bld) [#/Vol] 2.30 10*6/uL Low 4.40 - 5.90 10*6/uL [facility] WBC (Bld) [#/Vol] 7.7 10*3/uL 3.6 - 10.7 10*3/uL [facility] COMPLETE URINALYSISon 2023 BACTERIA (#/HPF) IN URINE Few Abnormal Negative [facility] Comment on above: Performed By: #### L [id number] ####Dog Races Manager: KENDRA WOODS ([phone])[facility] ([facility])[address] BILIRUBIN, TOTAL PRESENCE IN URINE Negative Normal Negative [facility] Comment on above: Performed By: #### L AB347 ####Dog Races Manager: KENDRA WOODS ([phone])[facility] ([facility])[address] Clarity (U) Turbid Abnormal Clear [facility] Comment on above: Performed By: #### L AB347 ####Dog Races Manager: KENDRA WOODS ([phone])[facility] Color (U) Yellow Normal Lt. Yellow [facility] Comment on above: Performed By: #### L AB347 ####Dog Races Manager: KENDRA WOODS ([phone])[facility] ([facility])[address] [place] [address] GLUCOSE (MG/DL) IN URINE Normal Normal Normal (<70) [facility] Comment on above: Performed By: #### L AB347 ####Dog Races Manager: KENDRA WOODS ([phone])[facility] ([facility])[address] [place] [address] HEMOGLOBIN PRESENCE IN URINE >1.0 Abnormal Negative [facility] Comment on above: Performed By: #### L [id number] ####Dog Races Manager: KENDRA WOODS ([phone])[facility] ([facility])[address] [place] [address] Ketones Ql (U) Negative Normal Negative [facility] Comment on above: Performed By: #### L [id number] ####Dog Races Manager: KENDRA WOODS ([phone])[facility] ([facility])[address] [place] [address] LEUKOCYTE ESTERASE PRESENCE IN URINE BY TEST STRIP 500 Melida/uL Abnormal Negative [facility] Comment on above: Performed By: #### L [id number] ####Dog Races Manager: KENDRA WOODS ([phone])[facility] (SBHLAB)[address] [place] [address] [place] MUCUS (#/LPF) IN URINE SEDIMENT Moderate Abnormal Negative [facility] Comment on above: Performed By: #### L [id number] ####Dog Races Manager: KENDRA WOODS ([phone])[facility] [place] (SBHLAB)[address] NITRITE PRESENCE IN URINE Negative Normal Negative [facility] Comment on above: Performed By: #### L [id number] ####Dog Races Manager: KENDRA WOODS ([phone])[facility] ([facility])[address] pH (U) 6.5 [pH] Normal 5.0-8.0 [facility] Comment on above: Performed By: #### L [id number] ####Dog Races Manager: KENDRA WOODS ([phone])[facility]ITAL[facility] [place] (SBHLAB)[address] Protein (U) [Mass/Vol] 100 mg/dL Abnormal Negative [facility] Comment on above: Performed By: #### L [id number] ####Dog Races Manager: KENDRA WOODS ([phone])[facility] (SB[facility]AB)[address] RBC (#/HPF) IN URINE SEDIMENT >100 Abnormal 0-2 [facility] Comment on above: Performed By: #### L [id number] ####Dog Races Manager: KENDRA WOODS ([phone])[facility] (SBHLAB)[address] [place] [address] Specific gravity (U) [Rel density] 1.012 Normal 1.005-1.03 0 [facility] Comment on above: Performed By: #### L [id number] ####Dog Races Manager: KENDRA WOODS ([phone])[facility] [place] ([facility]AB)[address] SQUAMOUS EPITHELIAL CELLS (#/HPF) IN URINE SEDIMENT 0-2 Normal 3-5 [facility] Comment on above: Performed By: #### L [id number] ####Dog Races Manager: KENDRA WOODS ([phone])[facility]ITAL[facility] (SBHLAB)[address] UROBILINOGEN (MG/DL) IN URINE Normal Normal Normal (0-1) [facility] Comment on above: Performed By: #### L [id number] ####Dog Races Manager: KENDRAELIZABET WOODS ([phone])[facility] ([facility])[address] WBC (LEUKOCYTE) (#/HPF) IN URINE SEDIMENT >100 Abnormal 0-5 [facility] Comment on above: Performed By: #### L [id number] ####Dog Races Manager: KENDRAELIZABET WOODS ([phone])[facility]ITAL[facility] ([facility])[address] WBC (LEUKOCYTE) CLUMPS (#/HPF) IN URINE SEDIMENT Many Abnormal Negative [facility] Comment on above: Performed By: #### L [id number] ####Dog Races Manager: KENDRAELIZABET WOODS ([phone])[facility] (SBHLAB)[address] HEAD WO IV CONTRASTon CT HEAD WO IV CONTRAST [facility]ANG [facility] 1945 [id number] Exam Date/Time: 06/12/2023 20:38 Procedure: CT HEAD WO IV CONTRAST Ordering Provider: TEJEDA JOSEPH Reason For Exam: Mental status change, unknown cause CT HEAD WITHOUT CONTRAST: INDICATION: Mental status change, confusion COMPARISON: None. Unenhanced CT images of the head from skull base to vertex were obtained. The images are reviewed in the axial, sagittal and coronal planes. Dose reduction was employed with automated exposure control. The ventricles and sulci are enlarged, consistent with atrophy. Focal and confluent areas of low-attenuation are noted within the subcortical and periventricular white matter suggesting chronic ischemia. There is no evidence of hemorrhage, mass or large acute infarct. There is no mass or significant shift of the midline structures. There are no extraaxial or posterior fossa masses or fluid collections. The hypothalamic and parasellar regions are unremarkable. The paranasal sinuses are clear. IMPRESSION: Atrophy and chronic ischemic change. No acute intracranial process. Report Dictated on Electronically Signed By: Shaquille Cox DO Electronically Signed Date/Time: 06/12/2023 8:42 PM EDT Ams, pt unable to state his name in CT Hx dementia with increasing confusion. Normal [facility] CT Head WO contraston 2023 Atrophy and chronic ischemic change. No acute intracranial process. Report Dictated on Electronically Signed By: Shaquille Cox DO Electronically Signed Date/Time: 06/12/2023 8:42 PM EDT [facility] Patient Name: HOMERO DC : 1945 Exam Date/Time: 06/12/2023 20:38 Procedure: CT HEAD WO IV CONTRAST Ordering Provider: TEJEDA JOSEPH Reason For Exam: Mental status change, unknown cause CT HEAD WITHOUT CONTRAST: INDICATION: Mental status change, confusion COMPARISON: None. Unenhanced CT images of the head from skull base to vertex were obtained. The images are reviewed in the axial, sagittal and coronal planes. Dose reduction was employed with automated exposure control. The ventricles and sulci are enlarged, consistent with atrophy. Focal and confluent areas of low-attenuation are noted within the subcortical and periventricular white matter suggesting chronic ischemia. There is no evidence of hemorrhage, mass or large acute infarct. There is no mass or significant shift of the midline structures. There are no extraaxial or posterior fossa masses or fluid collections. The hypothalamic and parasellar regions are unremarkable. The paranasal sinuses are clear. [facility] Shaquille Cox DO - 06/12/2023 Patient Name: HOMERO MEI : 1945 Exam Date/Time: 06/12/2023 20:38 Procedure: CT HEAD WO IV CONTRAST Ordering Provider: TEJEDA JOSEPH Reason For Exam: Mental status change, unknown cause CT HEAD WITHOUT CONTRAST: INDICATION: Mental status change, confusion COMPARISON: None. Unenhanced CT images of the head from skull base to vertex were obtained. The images are reviewed in the axial, sagittal and coronal planes. Dose reduction was employed with automated exposure control. The ventricles and sulci are enlarged, consistent with atrophy. Focal and confluent areas of low-attenuation are noted within the subcortical and periventricular white matter suggesting chronic ischemia. There is no evidence of hemorrhage, mass or large acute infarct. There is no mass or significant shift of the midline structures. There are no extraaxial or posterior fossa masses or fluid collections. The hypothalamic and parasellar regions are unremarkable. The paranasal sinuses are clear. IMPRESSION: Atrophy and chronic ischemic change. No acute intracranial process. Report Dictated on Electronically Signed By: Shaquille Cox DO Electronically Signed Date/Time: 06/12/2023 8:[address] [facility] Radiology Study observation (narrative) [facility] CT Head WO contrastOrdered B y: Shaquille Cox on 06-12-2023 [facility] Work Phone: ED Nursing Noteon 06-12-[address] Tejeda notified o f hemoglobin 6.9 Candice Manley RN 06/12/232031 Normal [facility] ED Nursing Note Patient to CT. Rima Reynoso RN 06/12/232025 Normal [facility] ED Nursing Note X ray at bedside. Rima Reynoso RN 06/12/232006 Normal [facility] ED Nursing Note Dr. Bell at [facility]. Rima Reynoso RN 06/12/231956 Normal [facility] ED Provider Noteon ED Provider Note EMERGENCY DEPARTMENT ENCOUNTER Pt Name: Homero Mei Birthdate 1945 Date of evaluation: 06/12/2023 ED Provider: Kodak Tejeda DO CHIEF COMPLAINT Chief Complaint Patient presents with Altered Mental Status Patient with recent hospital admission for bleeding ulcer that was repaired then transferred to nursing facility. Hx dementia with increasing confusion. New catheter placed while at hospital (family states due to enlarged prostate). Patient was also started on a new medication. HISTORY OF PRESENT ILLNESS (Location/Symptom, Timing/Onset, Context/Setting, Quality, Duration, Modifying Factors, Severity) Note limiting factors. I wore appropriate PPE for the entirety of this encounter. HPI Homero Mei is a 77 y.o. who presents to the emergency department with altered mental status. The patient's son is at the bedside helping to provide history. The patient is currently alert and oriented x 4 and about historian. According to the patient's son he saw him this afternoon and noticed the patient was more confused than usual. The patient was last seen by the son about 3 days ago. The patient denies any chest pain, shortness of breath, abdominal pain, headache, vision changes, or focal numbness or weakness. Nursing Notes were reviewed. Limitations to history: Outside historians: REVIEW OF SYSTEMS Review of Systems Respiratory: Negative for shortness of breath. Cardiovascular: Negative for chest pain. Gastrointestinal: Negative for abdominal pain. Pertinent positives and negatives as per HPI PAST MEDICAL HISTORY Past Medical History: Diagnosis Date Anemia HLD (hyperlipidemia) htn SURGICAL HISTORY No past surgical history on file. CURRENT MEDICATIONS Previous Medications No medications on file ALLERGIES Patient has no known allergies. FAMILY HISTORY No family history on file. SOCIAL HISTORY Social History Socioeconomic History Marital status: Single Tobacco Use Smoking status: Unknown Vaping Use Vaping Use: Never used Substance and Sexual Activity Alcohol use: Not Currently Drug use: Never PHYSICAL EXAM ED Triage Vitals Temp Pulse Resp BP -- -- -- -- SpO2 Temp src Heart Rate Source Patient Position -- -- -- -- BP Location FiO2 (%) -- -- Physical Exam Constitutional: General: He is not in acute distress. HENT: Head: Normocephalic and atraumatic. Eyes: Conjunctiva/sclera: Conjunctivae normal. Cardiovascular: Rate and Rhythm: Normal rate and regular rhythm. Pulmonary: Effort: Pulmonary effort is normal. Abdominal: General: Abdomen is flat. Tenderness: There is no abdominal tenderness. Musculoskeletal: General: No deformity. Skin: General: Skin is warm and dry. Neurological: Comments: NIH stroke scale is 0 Psychiatric: Mood and Affect: Mood normal. DIAGNOSTIC RESULTS RADIOLOGY (Per Emergency Physician): Interpretation per the Radiologist below, if available at the time of this note: CT head wo IV contrast Final Result Atrophy and chronic ischemic change. No acute intracranial process. Report Dictated on Electronically Signed By: Shaquille Cox DO Electronically Signed Date/Time: 06/12/2023 8:42 PM EDT XR chest 1 view Final Result 1. Rounded, retrocardiac opacity, with possibilities noted above. Correlation with lateral chest x-ray and/or noncontrast CT chest may help in further evaluation, as indicated. 2. No other acute findings. Report Dictated on Electronically Signed By: Breezy Obrien MD Electronically Signed Date/Time: 06/12/2023 8:16 PM EDT LABS: Labs Reviewed BASIC METABOLIC PANEL - Abnormal Result Value SODIUM 136 POTASSIUM 3.9 CHLORIDE 105 CARBON DIOXIDE 24 UREA NITROGEN 20 CREATININE 1.21 GLUCOSE 117 (*) CALCIUM 8.5 ANION GAP 7 eGFR 62.4 CBC (HEMOGRAM) - Abnormal Auto WBC 7.7 RBC 2.30 (*) Hemoglobin 6.9 (*) Hematocrit 20.8 (*) MCV 90.4 MCH 30.0 MCHC 33.2 RDW 13.8 Platelets 228 MPV 11.0 COMPLETE URINALYSIS - Abnormal Color, Urine Yellow Clarity, Urine Turbid (*) pH, Urine 6.5 Leukocytes, Urine 500 (*) Nitrite, Urine Negative Protein, Urine 100 (*) Glucose, Urine Normal Bilirubin, Urine Negative Ketones, Urine Negative Urobilinogen, Urine Normal Blood, Urine >1.0 (*) RBC, Urine >100 (*) WBC, Urine >100 (*) Squamous Epithelial, Urine 0-2 Bacteria, Urine Few (*) Mucus, Urine Moderate (*) WBC Clumps, Urine Many (*) SPECIFIC GRAVITY OF URINE (NUMERIC) 1.012 TROPONIN I - Normal TROPONIN I <0.012 Narrative: Patients with high levels of Biotin oral intake (ie >5 mg/day) may have falsely decreased Troponin levels. URINE CULTURE COMPLETE URINALYSIS WITH REFLEX TO CULTURE Narrative: The following orders were created for panel order Urinalysis complete with reflex to Culture. Procedure Abnormality Status ----- (more content not included)... Normal [facility] Laboratory - Blood bankon ABO group Nom (Bld) A [facility] Health D Ag Ql (RBC) Negative [facility] Laboratory - Chemistry and C hemistry - challengeon 06-12-2023 Troponin I.cardiac [Mass/Vol] ng/mL NINF - 0.034 ng/mL [facility] MAGNESIUMon 06-12-2023 Magnesium [Mass/Vol] 2.3 mg/dL Normal 1.6-2.3 [facility] Comment on above: Performed By: #### L [id number] #### Dog Races Manager: MELANI PAULINO ([phone]) [facility] ([facility]) [address] [place] [address] No Panel Informationon 06-11 Blood Expiration Date S [facility] Crossmatch interpretation COMP [facility] Dispense Status Transfused [facility] Product Blood Type 600 [facility] PRODUCT CODE [id number] [facility] Unit ABO A [facility] Unit Number [id number] [facility] RH Negative [facility] Unit Volume 300 mL [facility] P [place] [address] [facility] AR Interval 180 ms [facility] QRS [place] -50 degrees [facility] QRSD Interval 99 ms [facility] QT Interval 400 ms [facility] QTC Interval 439 ms [facility] T Wave [place] -[address] [facility] Sinus rhythm Left anterior fascicular block Borderline T abnormalities, inferior leads Electronically Signed On 06-12-2023 22:05:10 EDT by Kodak Pack, - 06/12/2023 IMPRESSION: Sinus rhythm Left anterior fascicular block Borderline T abnormalities, inferior leads Electronically Signed On 06-12-2023 22:05:10 EDT by Kodak Tejeda [facility] TROPONIN Ion 06-12-2023 Troponin I.cardiac [Mass/Vol] ng/mL Normal <0.034 [facility] Comment on above: Result Comment: ORDE R COMMENTS: Patients with high levels of Biotin oral intake (ie >5 mg/day) may have falsely decreased Troponin levels. Performed By: #### L [id number] #### Dog Races Manager: MELANI PAULINO ([phone]) [facility] [address] [place] [address] Troponin I.cardiac [Mass/Vol ]on 06-12-2023 Interpretation and review of laboratory results Normal [facility] Patients with high l evels of Biotin oral intake (ie >5 mg/day) may have falsely decreased Troponin levels. [facility] URINE CULTUREon 06-12-2023 Bacteria identified Cx Nom (U) URINE CULTURE (A) Reference STAPHYLOCOCCUS AUREUS >100,000 CFU/mL Staphylococcus aureus (A) PBP2A Reference Negative Organism: STAPHYLOCOCCUS AUREUS Antibiotic ARUN Interpretation Status Clindamycin 0.25 ug/ml S F Gentamicin <=0.5 ug/ml S F Nitrofurantoin <=16 ug/ml S F Oxacillin <=0.25 ug/ml S F Trimethoprim / Sulfamethoxazole <=10 ug/ml S F Vancomycin <=0.5 ug/ml S F [ S = SUSCEPTIBLE R = RESISTANT I = INTERMEDIATE S-DD = Susceptible-dose dependent NS = Non-susceptible NO = No Interpretation ] Normal [facility] Comment on above: Performed By: #### L [id number] #### Dog Races Manager: MELANI PAULINO ([phone]) [facility] ([address] Urinalysis complete panel (U )on 06-12-2023 Bacteria LM.HPF (Urine sed) [#/Area] Few Abnormal Negative /HPF [facility] Bilirubin Ql (U) Negative Negative mg/dL [facility] Clarity (U) Turbid Abnormal Clear [facility] Color (U) Yellow Lt. Yellow [facility] Epithelial cells.squamous LM.HPF (Urine sed) [#/Area] 0-2 [facility] Glucose Ql (U) Normal Normal (<70) mg/dL [facility] Hemoglobin Ql (U) >1.0 Abnormal Negative mg/dL [facility] Interpretation and review of laboratory results Abnormal [facility] Ketones (U) [Mass/Vol] Negative Negat emily mg/dL [facility] Leukocyte clumps LM.HPF (Urine sed) [#/Area] Many Abnormal Negative /HPF [facility] Leukocyte esterase Test strip Ql (U) 500 Abnormal Negative Melida/uL [facility] Mucus LM.HPF (Urine sed) [#/Area] Moderate Abnormal Negative /LPF [facility] Nitrite Ql (U) Negative Negative [facility] pH (U) 6.5 [pH] 5.0 - 8.[address] [facility] Protein (U) [Mass/Vol] 100 mg/dL Abnormal Negative [facility] RBC LM.HPF (Urine sed) [#/Area] /[HPF] Abnormal [facility] Specific gravity (U) [Rel density] 1.012 1.005 - 1.030 [facility] Urobilinogen (U) [Mass/Vol] Normal Normal (0-1) mg/dL [facility] WBC LM.HPF (Urine sed) [#/Area] /[HPF] Abnormal [facility] Vital signson 06-12-2023 Heart rate 72 /min bpm [facility] XR Chest Single viewon 06-11 1. Rounded, retrocardiac opacity, with possibilities noted above. Correlation with lateral chest x-ray and/or noncontrast CT chest may help in further evaluation, as indicated. 2. No other acute findings. Report Dictated on Electronically Signed By: Breezy Obrien MD Electronically Signed Date/Time: 06/12/2023 8:16 PM EDT [facility] Patient Name: HOMERO DC : 1945 Exam Date/Time: 06/12/2023 20:10 Procedure: XR CHEST 1 VIEW Ordering Provider: TEJEDA JOSEPH Reason For Exam: Altered mental status (AMS), unclear cause CHEST PORTABLE CLINICAL INDICATION: Altered mental status (AMS), unclear cause TECHNIQUE: Portable chest x-ray(s). COMPARISON: None. FINDINGS: Cardiac and mediastinal silhouette within normal limits. Rounded opacity projects over the retrocardiac region of left lung base possibly representing focal diaphragmatic elevation, eventration or hernia, with gastric extension, but nonspecific. Remainder of lungs are grossly clear. No significant vascular congestion. No apparent pneumothorax. Degenerative change again noted in the thoracic spine. [facility] Breezy Obrien MD - 06/12/2023 Patient Name: HOMERO MEI : 1945 Exam Date/Time: 06/12/2023 20:10 Procedure: XR CHEST 1 VIEW Ordering Provider: TEJEDA JOSEPH Reason For Exam: Altered mental status (AMS), unclear cause CHEST PORTABLE CLINICAL INDICATION: Altered mental status (AMS), unclear cause TECHNIQUE: Portable chest x-ray(s). COMPARISON: None. FINDINGS: Cardiac and mediastinal silhouette within normal limits. Rounded opacity projects over the retrocardiac region of left lung base possibly representing focal diaphragmatic elevation, eventration or hernia, with gastric extension, but nonspecific. Remainder of lungs are grossly clear. No significant vascular congestion. No apparent pneumothorax. Degenerative change again noted in the thoracic spine. IMPRESSION: 1. Rounded, retrocardiac opacity, with possibilities noted above. Correlation with lateral chest x-ray and/or noncontrast CT chest may help in further evaluation, as indicated. 2. No other acute findings. Report Dictated on Electronically Signed By: Breezy Obrien MD Electronically Signed Date/Time: 06/12/2023 8:[address] [facility] Radiology Study observation (narrative) [facility] XR Chest Single viewOrdered By: Breezy Obrien on 06-12-2023 [facility] Work Phone: Absolute lymphocyte countOrd ered By: William Romeo on 06-08-2023 Lymphocytes Auto (Unsp spec) [#/Vol] 1.16 10*3/uL 0.83-4.51 [facility] Automated lymphocyte count a s percentage of total leukocytesOrdered By: William Romeo on 06-08-2023 Lymphocytes/100 WBC Auto (Unsp spec) 17.4 % 19-41 [facility] Basophil percentageOrdered B y: William Romeo on 06-08-2023 Basophils/100 WBC (Bld) 0.1 % 0-1 [facility] Chloride [Moles/Vol] 109 mmol/L 98-107 [facility] Eosinophils/100 WBC (Bld) 3.7 % 0-5 [facility] Glucose [Mass/Vol] 119 mg/dL 74-106 [facility] Comment on above: Fasting Glucose resu lt from 100 to 125 mg/dL suggests IMPAIRED HOMEOSTASIS per A.D.A. criteria. Hemoglobin (Bld) [Mass/Vol] 7.7 g/dL 13.0-16.5 [facility] Monocytes/100 WBC (Bld) 7.3 % 0-10 [facility] Neutrophils (Bld) [#/Vol] 4.7 10*3/uL 2.0-7.7 [facility] Neutrophils/100 WBC (Bld) 71.1 % 47-70 [facility] Potassium [Moles/Vol] 3.7 mmol/L 3.5-5.1 [facility] Sodium [Moles/Vol] 142 mmol/L 136-145 [facility] WBC (Bld) [#/Vol] 6.7 10*3/uL 4.4-11.0 [facility] COVID-19 virus antigen assay Ordered By: William Romeo on 06-08-2023 SARS-CoV-2 (COVID-19) Ag IA.rapid Ql (Resp) [facility] Determination of erythrocyte mean corpuscular volume (MCV)Ordered By: William Romeo on 06-08-2023 MCV (RBC) [Entitic vol] 90.2 fL 80-94 [facility] Erythrocyte distribution wid th ratioOrdered By: William Romeo on 06-08-2023 Erythrocyte distribution width (RBC) [Ratio] 13.8 % 11.6-14.6 [facility] Erythrocyte distribution wid th standard deviationOrdered By: William Romeo on 06-08-2023 Erythrocyte distribution width (RBC) [Entitic vol] 44.5 fL 35.1-43.9 [facility] Hematocrit Auto (Bld) [Volum e fraction]Ordered By: William Romeo on 06-08-2023 Hematocrit (Bld) [Volume fraction] 22.9 % 40-54 [facility] Immature granulocytes/100 WB C Auto (Bld)Ordered By: William Romeo on 06-08-2023 Immature granulocytes/100 WBC (Bld) 0.400 % 0.0-0.9 [facility] Comment on above: IG% - Immature Granu locytes (promyelocytes, myelocytes and metamyelocytes) > 1% indicates that a LEFT SHIFT is Present. Laboratory - Chemistry and C hemistry - challengeOrdered By: William Romeo on 06-08-2023 CO2 [Moles/Vol] 28.0 mmol/L 21.0-32.0 [facility] Urea nitrogen/Creatinine [Mass ratio] 17.1 mg/mg 10-20 [facility] Laboratory - Hematology and Cell countsOrdered By: William Romeo on 06-08-2023 MCH (RBC) [Entitic mass] 30.3 pg 27.0-32.0 [facility] MCHC (RBC) [Mass/Vol] 33.6 g/dL 32-36 [facility] Nucleated RBC/100 WBC (Bld) [Ratio] 0 % 0-5 [facility] Platelet mean volume (Bld) [Entitic vol] 11.5 fL 6.2-12.0 [facility] Platelets (Bld) [#/Vol] 155 10*3/uL 150-450 [facility] No Panel InformationOrdered By: William Romeo on 06-08-2023 Estimated Creatinine Clearance Calc 81.97 ml/min [facility] Estimated GFR (MDRD) Amer 109 mL/min >60 [facility] Comment on above: GFR Calc Estimated GFR (MDRD) Non-Af Amer 90 mL/min >60 [facility] Comment on above: Non- GFR Calc RBC Auto (Bld) [#/Vol]Ordere d By: William Romeo on 06-08-2023 RBC (Bld) [#/Vol] 2.54 10*6/uL 4.6-6.2 [facility] Serum or plasma calcium ginny urement (mass/volume)Ordered By: William Romeo on 06-08-2023 Calcium [Mass/Vol] 8.3 mg/dL 8.5-10.1 [facility] Serum or plasma creatinine m easurement (mass/volume)Ordered By: William Romeo on 06-08-2023 Creatinine [Mass/Vol] 0.88 mg/dL 0.70-1.30 [facility] Comment on above: The validity of the calculated GFR & GFRAA in patients over 70 years has not been determined. Clinical correlation is essential. Serum or plasma urea nitroge n measurement (mass/volume)Ordered By: William Romeo on 06-08-2023 Urea nitrogen [Mass/Vol] 15 mg/dL 7-18 [facility] Thin prep Papanicolaou smear with manual screeningOrdered By: William Romeo on 06-08-2023 Thin prep Papanicolaou smear with manual screening 5 5-15 [facility] Absolute lymphocyte countOrd ered By: Ronak Gauthier on 06-04-2023 Lymphocytes Auto (Unsp spec) [#/Vol] 1.37 10*3/uL 0.83-4.51 [facility] Automated lymphocyte count a s percentage of total leukocytesOrdered By: Ronak Gauthier on 06-04-2023 Lymphocytes/100 WBC Auto (Unsp spec) 10.5 % 19-41 [facility] Basophil percentageOrdered B y: Ronak Gauthier on 06-04-2023 Basophil percentage 0 SEEN /hpf 0-5 [facility] Ammonia (P) [Moles/Vol] 11.0 umol/L 11-32 [facility] Basophils/100 WBC (Bld) 0.2 % 0-1 [facility] Bilirubin [Mass/Vol] 0.30 mg/dL 0.20-1.00 [facility] Comment on above: For patients on eltr ombopag therapy, use of Dimension [place] TBIL is not recommended. Chloride [Moles/Vol] 111 mmol/L 98-107 [facility] Eosinophils/100 WBC (Bld) 0.1 % 0-5 [facility] Glucose [Mass/Vol] 115 mg/dL 74-106 [facility] Comment on above: Fasting Glucose resu lt from 100 to 125 mg/dL suggests IMPAIRED HOMEOSTASIS per A.D.A. criteria. Hemoglobin (Bld) [Mass/Vol] 6.3 g/dL 13.0-16.5 [facility] Monocytes/100 WBC (Bld) 4.8 % 0-10 [facility] Neutrophils (Bld) [#/Vol] 10.9 10*3/uL 2.0-7.7 [facility] Neutrophils/100 WBC (Bld) 83.9 % 47-70 [facility] Potassium [Moles/Vol] 4.1 mmol/L 3.5-5.1 [facility] Protein [Mass/Vol] 5.4 g/dL 6.4-8.2 [facility] Sodium [Moles/Vol] 142 mmol/L 136-145 [facility] WBC (Bld) [#/Vol] 13.0 10*3/uL 4.4-11.0 [facility] Bilirubin Test strip Ql (U)O rdered By: Ronak Gauthier on 06-04-2023 Bilirubin Ql (U) Negative Negative [facility] Determination of erythrocyte mean corpuscular volume (MCV)Ordered By: Ronak Gauthier on 06-04-2023 MCV (RBC) [Entitic vol] 90.4 fL 80-94 [facility] Erythrocyte distribution wid th ratioOrdered By: Ronak Gauthier on 06-04-2023 Erythrocyte distribution width (RBC) [Ratio] 13.2 % 11.6-14.6 [facility] Erythrocyte distribution wid th standard deviationOrdered By: Ronak Gauthier on 06-04-2023 Erythrocyte distribution width (RBC) [Entitic vol] 43.8 fL 35.1-43.9 [facility] Hematocrit Auto (Bld) [Volum e fraction]Ordered By: Ronak Gauthier on 06-04-2023 Hematocrit (Bld) [Volume fraction] 18.9 % 40-54 [facility] Immature granulocytes/100 WB C Auto (Bld)Ordered By: Ronak Gauthier on 06-04-2023 Immature granulocytes/100 WBC (Bld) 0.500 % 0.0-0.9 [facility] Comment on above: IG% - Immature Granu locytes (promyelocytes, myelocytes and metamyelocytes) > 1% indicates that a LEFT SHIFT is Present. Ketones Test strip Ql (U)Ord ered By: Ronak Gauthier on 06-04-2023 Ketones Ql (U) Negative Negative [facility] Laboratory - Chemistry and C hemistry - challengeOrdered By: Ronak Gauthier on 06-04-2023 Albumin/Globulin [Mass ratio] 1.3 {ratio} 0.9-2.4 [facility] ALP [Catalytic activity/Vol] 46 U/L 45-117 [facility] ALT [Catalytic activity/Vol] 23 U/L 16-61 [facility] CO2 [Moles/Vol] 22.0 mmol/L 21.0-32.0 [facility] Globulin (S) [Mass/Vol] 2.3 g/dL 2.2-4.2 [facility] Urea nitrogen/Creatinine [Mass ratio] 70.5 mg/mg 10-20 [facility] Laboratory - Hematology and Cell countsOrdered By: Ronak Gauthier on 06-04-2023 MCH (RBC) [Entitic mass] 30.1 pg 27.0-32.0 [facility] MCHC (RBC) [Mass/Vol] 33.3 g/dL 32-36 [facility] Nucleated RBC/100 WBC (Bld) [Ratio] 0 % 0-5 [facility] Platelet mean volume (Bld) [Entitic vol] 11.6 fL 6.2-12.0 [facility] Platelets (Bld) [#/Vol] 202 10*3/uL 150-450 [facility] Lower GI hemoglobin IA Ql (S tl)Ordered By: Ronak Gauthier on 06-04-2023 Stool Occult Blood (ARUN) Positive [facility] Mucus LM Ql (Urine sed)Order ed By: Ronak Gauthier on 06-04-2023 Mucus Ql (Urine sed) 0 SEEN /hpf [facility] Nitrite Test strip Ql (U)Ord ered By: Ronak Gauthier on 06-04-2023 Nitrite Ql (U) Negative Negative [facility] No Panel InformationOrdered By: Roank Gauthier on 06-04-2023 Urine RBC 0 SEEN /hpf 0-5 [facility] Estimated Creatinine Clearance Calc 48.41 ml/min [facility] Estimated GFR (MDRD) Amer 59 mL/min >60 [facility] Comment on above: GFR Calc Estimated GFR (MDRD) Non-Af Amer 49 mL/min >60 [facility] Comment on above: Non- GFR Calc Troponin I High Sensitivity 33 pg/mL 3.0-78.0 [facility] Comment on above: Please Note: New [place] t Units and Gender Specific Reference Ranges. For more information see Policy Stat Procedure [place] High Sensitivity Troponin (TNIH) and attachments. Protein Test strip Ql (U)Ord ered By: Ronak Gauthier on 06-04-2023 Protein Ql (U) Negative Negative [facility] RBC Auto (Bld) [#/Vol]Ordere d By: Ronak Gauthier on 06-04-2023 RBC (Bld) [#/Vol] 2.09 10*6/uL 4.6-6.2 [facility] Serum or plasma calcium ginny urement (mass/volume)Ordered By: Ronak Gauthier on 06-04-2023 Calcium [Mass/Vol] 8.6 mg/dL 8.5-10.1 [facility] Serum or plasma creatinine m easurement (mass/volume)Ordered By: Ronak Gauthier on 06-04-2023 Creatinine [Mass/Vol] 1.49 mg/dL 0.70-1.30 [facility] Comment on above: The validity of the calculated GFR & GFRAA in patients over 70 years has not been determined. Clinical correlation is essential. Serum or plasma urea nitroge n measurement (mass/volume)Ordered By: Ronak Gauthier on 06-04-2023 Urea nitrogen [Mass/Vol] 105 mg/dL 7-18 [facility] Comment on above: Critical Result(s) C alled at: 20:27:50 06/04/2023 by: SIMA RAZA. Results read back by same. Squamous epithelial cells de tection in urine sediment by light microscopyOrdered By: Ronak Gauthier on 06-04-2023 Epithelial cells.squamous LM Ql (Urine sed) 0-5 SEEN /hpf 0-5 [facility] Thin prep Papanicolaou smear with manual screeningOrdered By: Ronak Gauthier on 06-04-2023 Thin prep Papanicolaou smear with manual screening 3.1 g/dL 3.2-5.0 [facility] Thin prep Papanicolaou smear with manual screening 7 U/L 15-37 [facility] Thin prep Papanicolaou smear with manual screening 9 5-15 [facility] Urine blood detectionOrdered By: Ronak Gauthier on 06-04-2023 RBC Ql (U) Negative Negative [facility] Urine clarityOrdered By: Silvia Gauthier on 06-04-2023 Clarity (U) Clear Clear [facility] Urine color determinationOrd ered By: Ronak Gauthier on 06-04-2023 Color (U) Yellow Yellow [facility] Urine glucose detectionOrder ed By: Ronak Gauthier on 06-04-2023 Glucose Ql (U) Normal mg/dl Normal [facility] Urine leukocyte esterase det ection by dipstickOrdered By: Ronak Gauthier on 06-04-2023 Leukocyte esterase Test strip Ql (U) Negative Negative [facility] Urine pHOrdered By: Ronak scherer on 06-04-2023 pH (U) 6.0 [pH] 5.0 - 8.0 [facility] Urine sediment bacteria coun t by microscopy (number/high power field)Ordered By: Ronak Gauthier on 06-04-2023 Bacteria LM.HPF (Urine sed) [#/Area] 0 /[HPF] None Seen [facility] Urine specific gravity measu rementOrdered By: Ronak Gauthier on 06-04-2023 Specific gravity (U) [Rel density] 1.015 1.002-1.03 0 [facility] Urine urobilinogen measureme ntOrdered By: Ronak Gauthier on 06-04-2023 Urobilinogen Ql (U) Normal mg/dl Normal [facility] Urinalysis complete panel (U )on 04-17-2023 Bacteria LM.HPF (Urine sed) [#/Area] Negative Negative /HPF [facility] Bilirubin Ql (U) Negative Negative [facility] Clarity (Unsp spec) Clear Clear [facility] Color (U) Yellow Yellow [facility] Epithelial cells LM.HPF (Urine sed) [#/Area] None Seen [facility] Glucose Test strip (U) [Mass/Vol] Negative Negative [facility] Hemoglobin Ql (U) Negative Negative [facility] Hyaline casts (Urine sed) [#/Area] 0 /[LPF] 0 /[facility]F [facility] Ketones Ql (U) Negative Negative [facility] Leukocyte esterase Test strip Ql (U) Negative Negative [facility] Nitrite Ql (U) Negative Negative [facility] pH (U) 6.5 [pH] <8.5 [facility] Protein (U) [Mass/Vol] Negative Negative Cl [facility] RBC LM.HPF (Urine sed) [#/Area] 0-2 /HPF 0-2 /HPF [facility] Specific gravity (U) [Rel density] 1.015 1.005 - 1.030 [facility] Urobilinogen Ql (U) 0.2 EU/dL 0.2-1.0 EU/dL [facility] WBC LM.HPF (Urine sed) [#/Area] 0-5 /HPF 0-5 /HPF [facility] metabolic 2000 panelon 01-15-2023 Albumin [Mass/Vol] 4.6 g/dL 3.9 - 4.9 g/dL [facility] ALP [Catalytic activity/Vol] 77 U/L 38 - 113 U/L [facility] ALT [Catalytic activity/Vol] 24 U/L 10 - 54 U/L [facility] Anion gap [Moles/Vol] 9 mmol/L 9 - 18 mmol/L [facility] AST [Catalytic activity/Vol] 14 U/L 14 - 40 U/L [facility] Bilirubin [Mass/Vol] 0.3 mg/dL 0.2 - 1 .3 mg/dL [facility] Calcium [Mass/Vol] 9.5 mg/dL 8.5 - 10. 2 mg/dL [facility] Chloride [Moles/Vol] 103 mmol/L 97 - 10 5 mmol/L [facility] CO2 [Moles/Vol] 26 mmol/L 22 - 30 mmol/L [facility] Creatinine [Mass/Vol] 1.12 mg/dL 0.73 - 1.22 mg/dL [facility] Estimated Glomerular Filtration Rate 69 mL/min/1.73m >=60 mL/min/1.7 3m [facility] Glucose [Mass/Vol] 99 mg/dL 74 - 99 mg/dL [facility] Potassium [Moles/Vol] 4.5 mmol/L 3.7 - 5.1 mmol/L [facility] Protein [Mass/Vol] 6.9 g/dL 6.3 - 8.0 g/dL [facility] Sodium [Moles/Vol] 138 mmol/L 136 - 144 mmol/L [facility] Urea nitrogen [Mass/Vol] 25 mg/dL High 9 - 24 mg/dL [facility] metabolic 2000 panelon 06-22-2022 Albumin [Mass/Vol] 4.5 g/dL 3.9 - 4.9 g/dL [facility] ALP [Catalytic activity/Vol] 70 U/L 38 - 113 U/L [facility] ALT [Catalytic activity/Vol] 17 U/L 10 - 54 U/L [facility] Anion gap [Moles/Vol] 11 mmol/L 9 - 18 mmol/L [facility] AST [Catalytic activity/Vol] 11 U/L Low 14 - 40 U/L [facility] Bilirubin [Mass/Vol] 0.4 mg/dL 0.2 - 1 .3 mg/dL [facility] Calcium [Mass/Vol] 9.6 mg/dL 8.5 - 10. 2 mg/dL [facility] Chloride [Moles/Vol] 104 mmol/L 97 - 10 5 mmol/L [facility] CO2 [Moles/Vol] 26 mmol/L 22 - 30 mmol/L [facility] Creatinine [Mass/Vol] 0.95 mg/dL 0.73 - 1.22 mg/dL [facility] Estimated Glomerular Filtration Rate 84 mL/min/1.73m >=60 mL/min/1.7 3m [facility] Glucose [Mass/Vol] 101 mg/dL High 74 - 99 mg/dL [facility] Potassium [Moles/Vol] 4.1 mmol/L 3.7 - 5.1 mmol/L [facility] Protein [Mass/Vol] 7.0 g/dL 6.3 - 8.0 g/dL [facility] Sodium [Moles/Vol] 141 mmol/L 136 - 144 mmol/L [facility] Urea nitrogen [Mass/Vol] 14 mg/dL 9 - 24 mg/dL [facility] TSH BLDon 06-22-2022 TSH Qn 1.950 m[IU]/L 0.270 - 4.200 mIU/L [facility] Urinalysis complete panel (U )on 06-22-2022 Bilirubin Ql (U) Negative Negative [facility] Clarity (Unsp spec) Clear Clear [facility] Color (U) Light Yellow Yellow [facility] Glucose Test strip (U) [Mass/Vol] Negative Trace, Negative [facility] Hemoglobin Ql (U) Negative Negative, Trace [facility] Ketones Ql (U) Negative Trace, Negative [facility] Leukocyte esterase Test strip Ql (U) Negative Negative, 25 [place]/uL [facility] Nitrite Ql (U) Negative Negative [facility] pH (U) 6.5 [pH] 5.0 - 8.0 [facility] Protein (U) [Mass/Vol] Negative Trace , Negative [facility] RBC LM.HPF (Urine sed) [#/Area] 0-3 /HPF 0-3 /HPF [facility] Specific gravity (U) [Rel density] 1.015 1.005 - 1.030 [facility] Urobilinogen Ql (U) Negative Negative [facility] WBC LM.HPF (Urine sed) [#/Area] 0-5 /HPF 0-5 /HPF [facility] VITAMIN B12 BLOODon 06-23-19 Cobalamin (Vitamin B12) [Mass/Vol] 425 pg/mL 232 - 1,245 pg/mL [facility] CBC W Auto Differential pane l (Bld)on 06-21-2022 Basophils (Bld) [#/Vol] <0.11 k/uL [facility] Basophils/100 WBC (Bld) 0.2 % [facility] Differential cell count method Nom (Bld) Auto [facility] Eosinophils (Bld) [#/Vol] 0.22 10*3/uL <0.46 k/uL [facility] Eosinophils/100 WBC (Bld) 2.6 % [facility] Erythrocyte distribution width (RBC) [Ratio] 13.3 % 11.5 - 15.0 % [facility] Hematocrit (Bld) [Volume fraction] 41.9 % 39.0 - 51.0 % [facility] Hemoglobin (Bld) [Mass/Vol] 14.1 g/dL 13.0 - 17.0 g/dL [facility] Immature granulocytes (Bld) [#/Vol] <0.10 k/uL [facility] Immature granulocytes/100 WBC (Bld) 0.1 % [facility] Lymphocytes (Bld) [#/Vol] 2.13 10*3/uL 1.00 - 4.00 k/uL [facility] Lymphocytes/100 WBC (Bld) 25.0 % [facility] MCH (RBC) [Entitic mass] 30.1 pg 26.0 - 34.0 pg [facility] MCHC (RBC) [Mass/Vol] 33.7 g/dL 30.5 - 36.0 g/dL [facility] MCV (RBC) [Entitic vol] 89.3 fL 80.0 - 100.0 fL [facility] Monocytes (Bld) [#/Vol] 0.54 10*3/uL <0.87 k/uL [facility] Monocytes/100 WBC (Bld) 6.3 % [facility] Neutrophils (Bld) [#/Vol] 5.59 10*3/uL 1.45 - 7.50 k/uL [facility] Neutrophils/100 WBC (Bld) 65.8 % [facility] Nucleated RBC (Bld) [#/Vol] <0.01 k/uL [facility] Nucleated RBC/100 WBC (Bld) [Ratio] 0.0 /100 WBC [facility] Platelet mean volume (Bld) [Entitic vol] 11.3 fL 9.0 - 12.7 fL [facility] Platelets (Bld) [#/Vol] 225 10*3/uL 150 - 400 k/uL [facility] RBC (Bld) [#/Vol] 4.69 10*6/uL 4.20 - 6.00 m/uL [facility] WBC (Bld) [#/Vol] 8.51 10*3/uL 3.70 - 11.00 k/uL [facility] Comprehensive metabolic 2000 panelon 05-30-2022 Albumin [Mass/Vol] 4.3 g/dL 3.9 - 4.9 g/dL [facility] ALP [Catalytic activity/Vol] 70 U/L 38 - 113 U/L [facility] ALT [Catalytic activity/Vol] 21 U/L 10 - 54 U/L [facility] Anion gap [Moles/Vol] 12 mmol/L 9 - 18 mmol/L [facility] AST [Catalytic activity/Vol] 11 U/L Low 14 - 40 U/L [facility] Bilirubin [Mass/Vol] 0.4 mg/dL 0.2 - 1 .3 mg/dL [facility] Calcium [Mass/Vol] 9.6 mg/dL 8.5 - 10. 2 mg/dL [facility] Chloride [Moles/Vol] 106 mmol/L High 97 - 10 5 mmol/L [facility] CO2 [Moles/Vol] 24 mmol/L 22 - 30 mmol/L [facility] Creatinine [Mass/Vol] 1.00 mg/dL 0.73 - 1.22 mg/dL [facility] Estimated Glomerular Filtration Rate 79 mL/min/1.73m >=60 mL/min/1.7 3m [facility] Glucose [Mass/Vol] 95 mg/dL 74 - 99 mg/dL [facility] Potassium [Moles/Vol] 4.1 mmol/L 3.7 - 5.1 mmol/L [facility] Protein [Mass/Vol] 6.7 g/dL 6.3 - 8.0 g/dL [facility] Sodium [Moles/Vol] 142 mmol/L 136 - 144 mmol/L [facility] Urea nitrogen [Mass/Vol] 17 mg/dL 9 - 24 mg/dL [facility] XR Pelvis and Hip - right AP and Lateral frogon 06-30-2020 IMPRESSION: Mild gurmeet rowing of the hip joint with no acute process seen. Motor Winder: ELIUD Transcribe Date/Time: Jun 30 2020 12:11P Dictated by : PRIYANKA ARREOLA MD This examination was interpreted and the report reviewed and electronically signed by: PRIYANKA ARREOLA MD on Jun 30 2020 12:36PM [facility] DIVISION OF RADIOLOGY * * *Final Report* * * DATE OF EXAM: Jun 30 2020 10:41AM [id number] - XR HIP 3V PELV+ AP/LAT RT / PROCEDURE REASON: multiple diagnoses * * * * Physician Interpretation * * * * History: Hip pain, right groin pain FINDINGS: AP view of the pelvis and AP and lateral views of the right hip have been obtained. There is no acute fracture or dislocation. There is mild narrowing of the superior aspect of the hip joint. No gross soft tissue abnormality is seen. Metallic structures likely related to prior mesh placement overlies the lower pelvis. [facility]Y [facility] * * *Final Report* * * DATE OF EXAM: Jun 30 2020 10:41AM WOX [id number] - XR HIP 3V PELV+ AP/LAT RT / PROCEDURE REASON: multiple diagnoses * * * * Physician Interpretation * * * * History: Hip pain, right groin pain FINDINGS: AP view of the pelvis and AP and lateral views of the right hip have been obtained. There is no acute fracture or dislocation. There is mild narrowing of the superior aspect of the hip joint. No gross soft tissue abnormality is seen. Metallic structures likely related to prior mesh placement overlies the lower pelvis. IMPRESSION IMPRESSION: Mild narrowing of the hip joint with no acute process seen. Motor Winder: ELIUD Transcribe Date/Time: Jun 30 2020 12:11P Dictated by : PRIYANKA ARREOLA MD This examination was interpreted and the report reviewed and electronically signed by: PRIYANKA ARREOLA MD on Jun 30 2020 12:36PM EST [facility] Radiology Study observation (narrative) [facility] XR Pelvis and Hip - right AP and Lateral frogOrdered By: [facility] Provider on 06-30-2020 [facility] Vital Signs Date Time Vital Sign Value Performing Clinician Мария jorje 11-03-2024 09:15-0400 Body height 180.3 cm Lenin Chaudhary MD Work Phone: [facility] 11-03-2024 09:15-0400 Body mass index (BMI) [Ratio] 27.14 kg/m2 Lenin Chaudhary MD Work Phone: [facility] 11-03-2024 09:15-0400 Body weight 88.27 kg Lenin Chaudhary MD Work Phone: [facility] 11-03-2024 09:15-0400 Diastolic blood pressure 70 mm[Hg] Lenin Chaudhary MD Work Phone: [facility] 11-03-2024 09:15-0400 Heart rate 61 /min Lenin Chaudhary MD Work Phone: [facility] 11-03-2024 09:15-0400 SaO2% (BldA) [Mass fraction] 99 % Lenin Chaudhary MD Work Phone: [facility] 11-03-2024 09:15-0400 Systolic blood pressure 124 mm[Hg] Lenin mathis MD Work Phone: [facility] 10-27-2024 11:09-0400 Body height 180.3 cm Melani Curtis APRN.POLISHING MACHINE TENDER Work Phone: [facility] 10-27-2024 11:09-0400 Body mass index (BMI) [Ratio] 26.92 kg/m2 Melani Curtis APRN.POLISHING MACHINE TENDER Work Phone: [facility] 10-27-2024 11:090400 Body temperature 98.2 [degF] Melani Curtis CHEMICAL RESEARCH ENGINEER.POLISHING MACHINE TENDER Work Phone: [facility] 10-27-2024 11:09-0400 Body weight 87.54 kg Melani Ever CHEMICAL RESEARCH ENGINEER.POLISHING MACHINE TENDER Work Phone: [facility] 10-27-2024 11:09-0400 Diastolic blood pressure 82 mm[Hg] Melani Ever CHEMICAL RESEARCH ENGINEER.POLISHING MACHINE TENDER Work Phone: [facility] Comment on above: Deana notified of blood pressure. 10-27-2024 11:09-0400 Heart rate 68 /min Melani Ever CHEMICAL RESEARCH ENGINEER.POLISHING MACHINE TENDER Work Phone: [facility] 10-27-2024 11:09-0400 Respiratory rate 14 /min Melani Ever CHEMICAL RESEARCH ENGINEER.POLISHING MACHINE TENDER Work Phone: [facility] 10-27-2024 11:09-0400 SaO2% (BldA) [Mass fraction] 98 % Melani Ever CHEMICAL RESEARCH ENGINEER.POLISHING MACHINE TENDER Work Phone: [facility] 10-27-2024 11:09-0400 Systolic blood pressure 144 mm[Hg] Melani Ever CHEMICAL RESEARCH ENGINEER.POLISHING MACHINE TENDER Work Phone: [facility] Comment on above: Deana notified of blood pressure. 09-18-2024 13:37-0400 Body mass index (BMI) [Ratio] 25.23 kg/m2 Nickie Ahumada CHEMICAL RESEARCH ENGINEER.POLISHING MACHINE TENDER Work Phone: [facility] 09-18-2024 13:37-0400 Body weight 86.73 kg Nickie Ahumada CHEMICAL RESEARCH ENGINEER.POLISHING MACHINE TENDER Work Phone: [facility] 09-18-2024 13:37-0400 Diastolic blood pressure 72 mm[Hg] Nickie Andersone CHEMICAL RESEARCH ENGINEER.POLISHING MACHINE TENDER Work Phone: [facility] 09-18-2024 13:37-0400 Heart rate 64 /min Nickie Ahumada CHEMICAL RESEARCH ENGINEER.POLISHING MACHINE TENDER Work Phone: [facility] 09-18-2024 13:37-0400 SaO2% (BldA) [Mass fraction] 99 % Nickie Ahumada CHEMICAL RESEARCH ENGINEER.POLISHING MACHINE TENDER Work Phone: [facility] Comment on above: RA 09-18-2024 13:37-0400 Systolic blood pressure 134 mm[Hg] Nickie Zita ALPOLISHING MACHINE TENDER Work Phone: [facility] 09-16-2024 09:57-0400 Body height 185.4 cm Lenin Chaudhary MD Work Phone: [facility] 09-16-2024 09:57-0400 Body mass index (BMI) [Ratio] 24.91 kg/m2 Lenin Chaudhary MD Work Phone: [facility] 09-16-2024 09:57-0400 Body weight 85.64 kg Lenin Chaudhary MD Work Phone: [facility] 09-16-2024 09:57-0400 Diastolic blood pressure 60 mm[Hg] Lenin Chaudhary MD Work Phone: [facility] 09-16-2024 09:57-0400 Heart rate 67 /min Lenin Chaudhary MD Work Phone: [facility] 09-16-2024 09:57-0400 SaO2% (BldA) [Mass fraction] 98 % Lenin Chaudhary MD Work Phone: [facility] 09-16-2024 09:57-0400 Systolic blood pressure 94 mm[Hg] Lenin mathis MD Work Phone: [facility] 09-01-2024 09:58-0400 Diastolic blood pressure 94 mm[Hg] Francisca Vazquez MD Work Phone: [facility] 09-01-2024 09:58-0400 Heart rate 56 /min Francisca Vazquez MD Work Phone: [facility] 09-01-2024 09:58-0400 Respiratory rate 18 /min Francisca Vazquez MD Work Phone: [facility] 09-01-2024 09:58-0400 SaO2% (BldA) [Mass fraction] 99 % Francisca Vazquez MD Work Phone: [facility] 09-01-2024 09:58-0400 Systolic blood pressure 180 mm[Hg] Francisca Vazquez MD Work Phone: [facility] 09-01-2024 09:40-0400 Body temperature 97.3 [degF] Francisca Vazquez MD Work Phone: [facility] 09-01-2024 07:48-0400 Body height 185.4 cm Francisca Vazquez MD Work Phone: [facility] 09-01-2024 07:48-0400 Body mass index (BMI) [Ratio] 25.73 kg/m2 Francisca Vazquez MD Work Phone: [facility] 09-01-2024 07:48-0400 Body weight 88.45 kg Francisca Vazquez MD Work Phone: [facility] 08-29-2024 09:39-0400 Diastolic blood pressure 53 mm[Hg] Lenin Chaudhary MD Work Phone: [facility] 08-29-2024 09:39-0400 Systolic blood pressure 81 mm[Hg] Lenin mathis MD Work Phone: [facility] 08-29-2024 09:19-0400 Body height 185.4 cm Lenin Chaudhary MD Work Phone: [facility] 08-29-2024 09:19-0400 Body mass index (BMI) [Ratio] 25.15 kg/m2 Lenin Chaudhary MD Work Phone: [facility] 08-29-2024 09:19-0400 Body weight 86.46 kg Lenin Chaudhary MD Work Phone: [facility] 08-29-2024 09:19-0400 Heart rate 72 /min Lenin Chaudhary MD Work Phone: [facility] 08-29-2024 09:19-0400 SaO2% (BldA) [Mass fraction] 97 % Lenin Chaudhary MD Work Phone: [facility] 08-26-2024 10:52-0400 [facility] 10:52-0400 Body mass index (BMI) [Ratio] 25.73 kg/m2 [facility] 08-26-2024 10:52-0400 Body weight 88.45 kg [facility] Comment on above: pt reported 08-04-2024 13:33-0400 Body mass index (BMI) [Ratio] 25.75 kg/m2 July Podlogar CHEMICAL RESEARCH ENGINEER.POLISHING MACHINE TENDER Work Phone: [facility] 08-04-2024 13:33-0400 Body weight 88.54 kg July Podlogar CHEMICAL RESEARCH ENGINEER.POLISHING MACHINE TENDER Work Phone: [facility] 08-04-2024 13:33-0400 Diastolic blood pressure 80 mm[Hg] July Podlogar CHEMICAL RESEARCH ENGINEER.POLISHING MACHINE TENDER Work Phone: [facility] 08-04-2024 13:33-0400 Heart rate 63 /min July Podlogar CHEMICAL RESEARCH ENGINEER.POLISHING MACHINE TENDER Work Phone: [facility] 08-04-2024 13:33-0400 Respiratory rate 16 /min July Podlogar CHEMICAL RESEARCH ENGINEER.POLISHING MACHINE TENDER Work Phone: [facility] 08-04-2024 13:33-0400 SaO2% (BldA) [Mass fraction] 97 % July Podlogar CHEMICAL RESEARCH ENGINEER.POLISHING MACHINE TENDER Work Phone: [facility] 08-04-2024 13:33-0400 Systolic blood pressure 138 mm[Hg] July Podlogar CHEMICAL RESEARCH ENGINEER.POLISHING MACHINE TENDER Work Phone: [facility] 07-24-2024 13:20-0400 Body height 180.[address] Moiz Chaudhary MD Work Phone: [facility] 07-24-2024 13:20-0400 Body weight 87.[address] Moiz Chaudhary MD Work Phone: [facility] 06-26-2024 08:16-0400 Body height 180.[address] Moiz Chaudhayr MD Work Phone: [facility] 06-26-2024 08:16-0400 Body weight 87.[address] Moiz Chaudhary MD Work Phone: [facility] 06-25-2024 09:47-0400 Body height 185.4 cm Sheng Pacheco MD Work Phone: [facility] 06-25-2024 09:47-0400 Body mass index (BMI) [Ratio] 25.99 kg/m2 Sheng Pacheco MD Work Phone: [facility] 06-25-2024 09:47-0400 Body weight 89.36 kg Sheng Pacheco MD Work Phone: [facility] 06-25-2024 09:47-0400 Diastolic blood pressure 63 mm[Hg] Sheng Pacheco MD Work Phone: [facility] 06-25-2024 09:47-0400 Heart rate 75 /min Sheng Pacheco MD Work Phone: [facility] 06-25-2024 09:47-0400 Respiratory rate 14 /min Sheng Pacheco MD Work Phone: [facility] 06-25-2024 09:47-0400 SaO2% (BldA) [Mass fraction] 98 % Sheng Pacheco MD Work Phone: [facility] 06-25-2024 09:47-0400 Systolic blood pressure 100 mm[Hg] Sheng dia MD Work Phone: [facility] 05-29-2024 07:40-0400 Body weight 86.[address] Moiz Chaudhary MD Work Phone: [facility] 05-26-2024 11:02-0400 Body mass index (BMI) [Ratio] 26.23 kg/m2 Dhara Gill MD Work Phone: [facility] 05-26-2024 11:02-0400 Body weight 87.09 kg Dhara Gill MD Work Phone: [facility] 05-26-2024 11:02-0400 Diastolic blood pressure 57 mm[Hg] Dhara Gill MD Work Phone: [facility] 05-26-2024 11:02-0400 Heart rate 69 /min Dhara Gill MD Work Phone: [facility] 05-26-2024 11:02-0400 SaO2% (BldA) [Mass fraction] 96 % Dhara Gill MD Work Phone: [facility] 05-26-2024 11:02-0400 Systolic blood pressure 94 mm[Hg] Dhara Gill MD Work Phone: [facility] 05-21-2024 10:38-0400 Body mass index (BMI) [Ratio] 25.46 kg/m2 Nurse 2 [facility] 05-21-2024 10:38-0400 Body weight 84.55 kg Nurse 2 [facility] Comment on above: home weight 05-07-2024 12:11-0400 Body mass index (BMI) [Ratio] 25.57 kg/m2 Nurse 2 [facility] 05-07-2024 12:11-0400 Body weight 84.91 kg Nurse 2 [facility] Comment on above: home weight 05-05-2024 12:50-0400 Body mass index (BMI) [Ratio] 26.5 kg/m2 Lenin Chaudhary MD Work Phone: [facility] 05-05-2024 12:50-0400 Body weight 88 kg Lenin Chaudhary MD Work Phone: [facility] 05-05-2024 12:50-0400 Diastolic blood pressure 60 mm[Hg] Lenin Chaudhary MD Work Phone: [facility] 05-05-2024 12:50-0400 Heart rate 73 /min Lenin Chaudhary MD Work Phone: [facility] 05-05-2024 12:50-0400 Respiratory rate 16 /min Lenin Chaudhary MD Work Phone: [facility] 05-05-2024 12:50-0400 SaO2% (BldA) [Mass fraction] 99 % Lenin Chaudhary MD Work Phone: [facility] 05-05-2024 12:50-0400 Systolic blood pressure 104 mm[Hg] Lenin mathis MD Work Phone: [facility] 05-05-2024 10:21-0400 Body mass index (BMI) [Ratio] 26.31 kg/m2 Melani Ever CHEMICAL RESEARCH ENGINEER.POLISHING MACHINE TENDER Work Phone: [facility] 05-05-2024 10:21-0400 Body weight 87.36 kg Melani Ever CHEMICAL RESEARCH ENGINEER.POLISHING MACHINE TENDER Work Phone: [facility] 05-05-2024 10:21-0400 Diastolic blood pressure 69 mm[Hg] Melani Ever CHEMICAL RESEARCH ENGINEER.POLISHING MACHINE TENDER Work Phone: [facility] 05-05-2024 10:21-0400 Heart rate 65 /min Melani Ever CHEMICAL RESEARCH ENGINEER.POLISHING MACHINE TENDER Work Phone: [facility] 05-05-2024 10:21-0400 SaO2% (BldA) [Mass fraction] 96 % Melani Ever CHEMICAL RESEARCH ENGINEER.POLISHING MACHINE TENDER Work Phone: [facility] 05-05-2024 10:21-0400 Systolic blood pressure 108 mm[Hg] Melani Ever CHEMICAL RESEARCH ENGINEER.POLISHING MACHINE TENDER Work Phone: [facility] 05-05-2024 09:23-0400 Body mass index (BMI) [Ratio] 26.37 kg/m2 Andrew Clifford CHEMICAL RESEARCH ENGINEER.POLISHING MACHINE TENDER Work Phone: [facility] 05-05-2024 09:23-0400 Body weight 87.54 kg Andrew Clifford CHEMICAL RESEARCH ENGINEER.POLISHING MACHINE TENDER Work Phone: [facility] 05-05-2024 09:23-0400 Diastolic blood pressure 84 mm[Hg] Andrew Venessa CHEMICAL RESEARCH ENGINEER.POLISHING MACHINE TENDER Work Phone: [facility] 05-05-2024 09:23-0400 Heart rate 66 /min Andrew Clifford CHEMICAL RESEARCH ENGINEER.POLISHING MACHINE TENDER Work Phone: [facility] 05-05-2024 09:23-0400 Respiratory rate 14 /min Andrew Clifford APRN.POLISHING MACHINE TENDER Work Phone: [facility] 05-05-2024 09:23-0400 SaO2% (BldA) [Mass fraction] 98 % Andrew Clifford CHEMICAL RESEARCH ENGINEER.POLISHING MACHINE TENDER Work Phone: [facility] 05-05-2024 09:23-0400 Systolic blood pressure 132 mm[Hg] Andrew Clifford CHEMICAL RESEARCH ENGINEER.POLISHING MACHINE TENDER Work Phone: [facility] 04-30-2024 15:22-0400 Body mass index (BMI) [Ratio] 28.8 kg/m2 Dr. Moiz Chaudhary MD Work Phone: [facility] 04-30-2024 14:50-0400 Diastolic blood pressure 50 mm[Hg] Dr. Moiz Chaudhary MD Work Phone: [facility] 04-30-2024 14:50-0400 Heart rate 69 /min Dr. Moiz Chaudhary MD Work Phone: [facility] 04-30-2024 14:50-0400 SaO2% (BldA) [Mass fraction] 96 % Dr. Moiz Chaudhary MD Work Phone: [facility] 04-30-2024 14:50-0400 Systolic blood pressure 100 mm[Hg] Dr. Moiz Chaudhary MD Work Phone: [facility] 04-30-2024 14:21-0400 Body height 180.[address] Moiz Chaudhary MD Work Phone: [facility] 04-30-2024 14:21-0400 Body weight 93.[address] Mozi Chaudhary MD Work Phone: [facility] 04-24-2024 10:55-0500 Body height 182.2 cm Caroline Orlando APRN.POLISHING MACHINE TENDER Work Phone: [facility] 04-24-2024 10:55-0500 Body mass index (BMI) [Ratio] 27.08 kg/m2 Caroline Fyock CHEMICAL RESEARCH ENGINEER.POLISHING MACHINE TENDER Work Phone: [facility] 04-24-2024 10:55-0500 Body weight 89.9 kg Caroline Orlando CHEMICAL RESEARCH ENGINEER.POLISHING MACHINE TENDER Work Phone: [facility] 04-24-2024 10:55-0500 Diastolic blood pressure 68 mm[Hg] Caroline Orlando CHEMICAL RESEARCH ENGINEER.POLISHING MACHINE TENDER Work Phone: [facility] 04-24-2024 10:55-0500 Heart rate 70 /min Caroline Barryelif CHEMICAL RESEARCH ENGINEER.POLISHING MACHINE TENDER Work Phone: [facility] 04-24-2024 10:55-0500 Respiratory rate 16 /min Caroline Orlando CHEMICAL RESEARCH ENGINEER.POLISHING MACHINE TENDER Work Phone: [facility] 04-24-2024 10:55-0500 SaO2% (BldA) [Mass fraction] 99 % Caroline Orlando CHEMICAL RESEARCH ENGINEER.POLISHING MACHINE TENDER Work Phone: [facility] 04-24-2024 10:55-0500 Systolic blood pressure 124 mm[Hg] Caroline Barryelif CHEMICAL RESEARCH ENGINEER .POLISHING MACHINE TENDER Work Phone: [facility] 04-15-2024 08:17-0500 Body height 185.4 cm Derek Humphrys CHEMICAL RESEARCH ENGINEER.POLISHING MACHINE TENDER Work Phone: [facility] 04-15-2024 08:17-0500 Body mass index (BMI) [Ratio] 26.39 kg/m2 Derek Humphrys CHEMICAL RESEARCH ENGINEER.POLISHING MACHINE TENDER Work Phone: [facility] 04-15-2024 08:17-0500 Body weight 90.72 kg Derek Kareemphrys CHEMICAL RESEARCH ENGINEER.POLISHING MACHINE TENDER Work Phone: [facility] Comment on above: 197.0 lbs-home weight 04-15-2024 08:17-0500 Diastolic blood pressure 84 mm[Hg] Derek Humphrys CHEMICAL RESEARCH ENGINEER.POLISHING MACHINE TENDER Work Phone: [facility] 04-15-2024 08:17-0500 Heart rate 72 /min Derek Humphrys CHEMICAL RESEARCH ENGINEER.POLISHING MACHINE TENDER Work Phone: [facility] Comment on above: regular 04-15-2024 08:17-0500 Respiratory rate 18 /min Derek Humphrys CHEMICAL RESEARCH ENGINEER.POLISHING MACHINE TENDER Work Phone: [facility] 04-15-2024 08:17-0500 SaO2% (BldA) [Mass fraction] 97 % Derek Humphrys CHEMICAL RESEARCH ENGINEER.POLISHING MACHINE TENDER Work Phone: [facility] Comment on above: on RA 04-15-2024 08:17-0500 Systolic blood pressure 132 mm[Hg] Derek Humphry s CHEMICAL RESEARCH ENGINEER.POLISHING MACHINE TENDER Work Phone: [facility] 04-14-2024 10:29-0500 Body height 185.4 cm Kobe Rodriguez APRN.POLISHING MACHINE TENDER, DNP Work Phone: [facility] 04-14-2024 10:29-0500 Body mass index (BMI) [Ratio] 25.99 kg/m2 Kobe Rodriguez APRN.POLISHING MACHINE TENDER, DNP Work Phone: [facility] 04-14-2024 10:29-0500 Body temperature 98.01 [degF] Kobe Rodriguez APRN.POLISHING MACHINE TENDER, DNP Work Phone: [facility] 04-14-2024 10:29-0500 Body weight 89.36 kg Kobe Rodriguez APRN.POLISHING MACHINE TENDER, DNP Work Phone: [facility] 04-14-2024 10:29-0500 Diastolic blood pressure 64 mm[Hg] Kobe Rodriguez APRN.POLISHING MACHINE TENDER, DNP Work Phone: [facility] 04-14-2024 10:29-0500 Heart rate 72 /min Kobe Rodriguez APRN.POLISHING MACHINE TENDER, DNP Work Phone: [facility] 04-14-2024 10:29-0500 Respiratory rate 12 /min Kobe Rodriguez APRN.POLISHING MACHINE TENDER, DNP Work Phone: [facility] 04-14-2024 10:29-0500 SaO2% (BldA) [Mass fraction] 97 % Kobe Rodriguez APRN.POLISHING MACHINE TENDER, DNP Work Phone: [facility] 04-14-2024 10:29-0500 Systolic blood pressure 100 mm[Hg] Kobe Rodriguez APRN.POLISHING MACHINE TENDER, DNP Work Phone: [facility] 04-07-2024 13:17-0500 Body height 185.4 cm Sole Burrows APRN.POLISHING MACHINE TENDER Work Phone: [facility] 04-07-2024 13:17-0500 Body mass index (BMI) [Ratio] 26.44 kg/m2 Sole Burrows APRN.POLISHING MACHINE TENDER Work Phone: [facility] 04-07-2024 13:17-0500 Body weight 90.9 kg Sole Burrows APRN.POLISHING MACHINE TENDER Work Phone: [facility] 04-07-2024 13:17-0500 Diastolic blood pressure 70 mm[Hg] Sole Burrows APRN.POLISHING MACHINE TENDER Work Phone: [facility] 04-07-2024 13:17-0500 Heart rate 78 /min Sole Burrows APRN.POLISHING MACHINE TENDER Work Phone: [facility] 04-07-2024 13:17-0500 Respiratory rate 16 /min Sole Burrows APRN.POLISHING MACHINE TENDER Work Phone: [facility] 04-07-2024 13:17-0500 SaO2% (BldA) [Mass fraction] 99 % Sole Burrows APRN.POLISHING MACHINE TENDER Work Phone: [facility] 04-07-2024 13:17-0500 Systolic blood pressure 134 mm[Hg] Sole Burrows APRN.POLISHING MACHINE TENDER Work Phone: [facility] 03-31-2024 08:00-0500 Body temperature 98.7 [degF] Dr. Moiz Chaudhary MD Work Phone: [facility] 03-31-2024 08:00-0500 Diastolic blood pressure 85 mm[Hg] Dr. Moiz Chaudhary MD Work Phone: [facility] 03-31-2024 08:00-0500 Heart rate 69 /min Dr. Moiz Chaudhary MD Work Phone: [facility] 03-31-2024 08:00-0500 Respiratory rate 16 /min Dr. Moiz Chaudhary MD Work Phone: [facility] 03-31-2024 08:00-0500 SaO2% (BldA) [Mass fraction] 97 % Dr. Moiz Chaudhary MD Work Phone: [facility] 03-31-2024 08:00-0500 Systolic blood pressure 137 mm[Hg] Dr. Moiz Chaudhary MD Work Phone: [facility] 03-31-2024 06:00-0500 Body mass index (BMI) [Ratio] 30.1 kg/m2 Dr. Moiz Chaudhary MD Work Phone: [facility] 03-31-2024 06:00-0500 Body weight [address] Moiz Chaudhary MD Work Phone: [facility] 03-24-2024 09:14-0500 Body height 179.1 cm Caroline Orlando APRN.POLISHING MACHINE TENDER Work Phone: [facility] Comment on above: patient reports 03-24-2024 09:14-0500 Body mass index (BMI) [Ratio] 31.38 kg/m2 Caroline Orlando APRN.POLISHING MACHINE TENDER Work Phone: [facility] 03-24-2024 09:14-0500 Body weight 100.61 kg Caroline Orlando APRN.POLISHING MACHINE TENDER Work Phone: [facility] 03-24-2024 09:14-0500 Diastolic blood pressure 90 mm[Hg] Caroline Orlando APRN.POLISHING MACHINE TENDER Work Phone: [facility] 03-24-2024 09:14-0500 Heart rate 81 /min Caroline Orlando APRN.POLISHING MACHINE TENDER Work Phone: [facility] 03-24-2024 09:14-0500 SaO2% (BldA) [Mass fraction] 98 % Caroline Orlando APRN.POLISHING MACHINE TENDER Work Phone: [facility] 03-24-2024 09:14-0500 Systolic blood pressure 142 mm[Hg] Caroline FoxPOLISHING MACHINE TENDER Work Phone: [facility] 03-01-2024 02:42-0500 SaO2% (BldA) [Mass fraction] 97 % [facility] Comment on above: Order Comment: Specimen Type: ARTERIAL B LOOD SPECIMENOrdering Facility: [facility] Address: [address] [place] [address] Performed By: #### A LLBG ####[facility]ORATORYCLIA [id number] [place] [address] [facility] 02-29-2024 10:58-0500 SaO2% (BldA) [Mass fraction] 93 % [facility] Comment on above: Order Comment: Specimen Type: ARTERIAL B LOOD SPECIMENOrdering Facility: [facility] Address: [address] [place] [address] Performed By: #### A LLBG ####[facility]ORYCLIA [id number] [place] [id number] [facility] 02-28-2024 14:14-0500 SaO2% (BldA) [Mass fraction] 99 % [facility] Comment on above: Order Comment: Specimen Type: ARTERIAL B LOOD SPECIMENOrdering Facility: [facility] Address: [address] [place] [address] Performed By: #### A LLBG ####[facility]ATORYCLIA [id number] [place] [id number] [facility] 02-11-2024 09:40-0500 Body mass index (BMI) [Ratio] 29.28 kg/m2 Kobe Rodriguez APRN.CNP, DNP Work Phone: [facility] 02-11-2024 09:40-0500 Body weight 93.89 kg Kobe Rodriguez APRN.CNP, DNP Work Phone: [facility] 02-11-2024 09:40-0500 Diastolic blood pressure 90 mm[Hg] Kobe Rodriguez APRN.CNP, DNP Work Phone: [facility] 02-11-2024 09:40-0500 Heart rate 67 /min Kobe Rodriguez APRN.CNP, DNP Work Phone: [facility] 02-11-2024 09:40-0500 Respiratory rate 16 /min Kobe Rodriguez APRN.POLISHING MACHINE TENDER, DNP Work Phone: [facility] 02-11-2024 09:40-0500 Systolic blood pressure 142 mm[Hg] Kobe Rodriguez APRN.POLISHING MACHINE TENDER, DNP Work Phone: [facility] 02-07-2024 14:59-0500 Body height 179.1 cm Caroline Orlando APRN.POLISHING MACHINE TENDER Work Phone: [facility] Comment on above: patient reports 02-07-2024 14:59-0500 Body mass index (BMI) [Ratio] 28.89 kg/m2 Caroline Orlando APRN.POLISHING MACHINE TENDER Work Phone: [facility] 02-07-2024 14:59-0500 Body weight 92.63 kg Caroline Orlando APRN.POLISHING MACHINE TENDER Work Phone: [facility] Comment on above: fully clothed with shoes on 02-07-2024 14:59-0500 Diastolic blood pressure 90 mm[Hg] Caroline Orlando APRN.POLISHING MACHINE TENDER Work Phone: [facility] 02-07-2024 14:59-0500 Heart rate 59 /min Caroline Orlando APRN.POLISHING MACHINE TENDER Work Phone: [facility] 02-07-2024 14:59-0500 SaO2% (BldA) [Mass fraction] 99 % Caroline Orlando APRN.POLISHING MACHINE TENDER Work Phone: [facility] 02-07-2024 14:59-0500 Systolic blood pressure 150 mm[Hg] Caroline Orlando APRN .POLISHING MACHINE TENDER Work Phone: [facility] 02-06-2024 07:50-0500 Diastolic blood pressure 80 mm[Hg] Lenin Chaudhary MD Work Phone: [facility] 02-06-2024 07:50-0500 Systolic blood pressure 126 mm[Hg] Lenin mathis MD Work Phone: [facility] 02-06-2024 07:13-0500 Body height 177.8 cm Lenin Chaudhary MD Work Phone: [facility] 02-06-2024 07:13-0500 Body mass index (BMI) [Ratio] 29.16 kg/m2 Lenin Chaudhary MD Work Phone: [facility] 02-06-2024 07:13-0500 Body weight 92.17 kg Lenin Chaudhary MD Work Phone: [facility] 02-06-2024 07:13-0500 Heart rate 64 /min Lenin Chaudhary MD Work Phone: [facility] 02-06-2024 07:13-0500 Respiratory rate 12 /min Lenin Chaudhary MD Work Phone: [facility] 02-06-2024 07:13-0500 SaO2% (BldA) [Mass fraction] 96 % Lenin Chaudhary MD Work Phone: [facility] 01-29-2024 09:50-0500 Body height 179 cm Pulm Wstr Work Phone: [facility] 01-29-2024 09:50-0500 Body mass index (BMI) [Ratio] 28.17 kg/m2 Pulm Wstr Work Phone: [facility] 01-29-2024 09:50-0500 Body weight 90.27 kg Pulm Wstr Work Phone: [facility] 01-22-2024 09:52-0500 Body height 185.4 cm Kodak Iqbal MD Work Phone: [facility] 01-22-2024 09:52-0500 Body mass index (BMI) [Ratio] 26.52 kg/m2 Kodak Iqbal MD Work Phone: [facility] 01-22-2024 09:52-0500 Body weight 91.17 kg Kodak Iqbal MD Work Phone: [facility] 01-22-2024 09:52-0500 Diastolic blood pressure 80 mm[Hg] Kodak Iqbal MD Work Phone: [facility] 01-22-2024 09:52-0500 Heart rate 62 /min Kodak Iqbal MD Work Phone: [facility] 01-22-2024 09:52-0500 Respiratory rate 16 /min Kodak Iqbal MD Work Phone: [facility] 01-22-2024 09:52-0500 SaO2% (BldA) [Mass fraction] 98 % Kodak Iqbal MD Work Phone: [facility] 01-22-2024 09:52-0500 Systolic blood pressure 140 mm[Hg] Kodak Michael Work Phone: [facility] 01-07-2024 10:18-0500 Body mass index (BMI) [Ratio] 26.65 kg/m2 Dhara Gill MD Work Phone: [facility] 01-07-2024 10:18-0500 Body weight 91.63 kg Dhara Gill MD Work Phone: [facility] 01-07-2024 10:18-0500 Diastolic blood pressure 85 mm[Hg] Dhara Gill MD Work Phone: [facility] 01-07-2024 10:18-0500 Heart rate 59 /min Dhaar Gill MD Work Phone: [facility] 01-07-2024 10:18-0500 SaO2% (BldA) [Mass fraction] 97 % Dhara Gill MD Work Phone: [facility] 01-07-2024 10:18-0500 Systolic blood pressure 147 mm[Hg] Dhara Gill MD Work Phone: [facility] 12-07-2023 12:06-0400 Body mass index (BMI) [Ratio] 26.18 kg/m2 Lenin Chaudhary MD Work Phone: [facility] 12-07-2023 12:06-0400 Body temperature 97.2 [degF] Lenin Chaudhary MD Work Phone: [facility] 12-07-2023 12:06-0400 Body weight 89.99 kg Lenin Chaudhary MD Work Phone: [facility] 12-07-2023 12:06-0400 Diastolic blood pressure 84 mm[Hg] Lenin Chaudhary MD Work Phone: [facility] 12-07-2023 12:06-0400 Heart rate 63 /min Lenin Chaudhary MD Work Phone: [facility] 12-07-2023 12:06-0400 Respiratory rate 16 /min Lenin Chaudhary MD Work Phone: [facility] 12-07-2023 12:06-0400 SaO2% (BldA) [Mass fraction] 98 % Lenin Chaudhary MD Work Phone: [facility] 12-07-2023 12:06-0400 Systolic blood pressure 132 mm[Hg] Lenin mathis MD Work Phone: [facility] 11-05-2023 13:39-0400 Body height 185.4 cm Kobe Rodriguez APRN.NAHUM PIEDRA Work Phone: [facility] 11-05-2023 13:39-0400 Body mass index (BMI) [Ratio] 25.82 kg/m2 Kobe Rodriguez APRN.CNP, DNP Work Phone: [facility] 11-05-2023 13:39-0400 Body weight 88.77 kg Kobe Rodriguez APRN.CNP, DNP Work Phone: [facility] 10-23-2023 10:44-0400 Diastolic blood pressure 96 mm[Hg] Lenin Chaudhary MD Work Phone: [facility] Comment on above: recheck 10-23-2023 10:44-0400 Systolic blood pressure 148 mm[Hg] Lenin mathis MD Work Phone: [facility] Comment on above: recheck 10-23-2023 10:03-0400 Body mass index (BMI) [Ratio] 26.25 kg/m2 Lenin Chaudhary MD Work Phone: [facility] 10-23-2023 10:03-0400 Body weight 90.27 kg Lenin Chaudhary MD Work Phone: [facility] 10-23-2023 10:03-0400 Heart rate 63 /min Lenin Chaudhary MD Work Phone: [facility] 10-23-2023 10:03-0400 Respiratory rate 16 /min Lenin Chaudhary MD Work Phone: [facility] 10-23-2023 10:03-0400 SaO2% (BldA) [Mass fraction] 97 % Lenin Chaudhary MD Work Phone: [facility] 08-17-2023 12:57-0400 Body mass index (BMI) [Ratio] 25.7 kg/m2 July Podlogar CHEMICAL RESEARCH ENGINEER.POLISHING MACHINE TENDER Work Phone: [facility] 08-17-2023 12:57-0400 Body weight 88.36 kg Ujly Podlogar CHEMICAL RESEARCH ENGINEER.POLISHING MACHINE TENDER Work Phone: [facility] 08-17-2023 12:57-0400 Diastolic blood pressure 64 mm[Hg] July Podlogar CHEMICAL RESEARCH ENGINEER.POLISHING MACHINE TENDER Work Phone: [facility] 08-17-2023 12:57-0400 Heart rate 60 /min July Podlogar CHEMICAL RESEARCH ENGINEER.POLISHING MACHINE TENDER Work Phone: [facility] 08-17-2023 12:57-0400 Respiratory rate 18 /min July Podlogar CHEMICAL RESEARCH ENGINEER.POLISHING MACHINE TENDER Work Phone: [facility] 08-17-2023 12:57-0400 SaO2% (BldA) [Mass fraction] 98 % July Podlogar CHEMICAL RESEARCH ENGINEER.POLISHING MACHINE TENDER Work Phone: [facility] 08-17-2023 12:57-0400 Systolic blood pressure 96 mm[Hg] July Podlogar CHEMICAL RESEARCH ENGINEER.POLISHING MACHINE TENDER Work Phone: [facility] 08-02-2023 13:54-0400 Body mass index (BMI) [Ratio] 25.67 kg/m2 Lenin Chaudhary MD Work Phone: [facility] 08-02-2023 13:54-0400 Body temperature 97.7 [degF] Lenin Chaudhary MD Work Phone: [facility] 08-02-2023 13:54-0400 Body weight 88.27 kg Lenin Chaudhary MD Work Phone: [facility] 08-02-2023 13:54-0400 Diastolic blood pressure 64 mm[Hg] Lenin Chaudhary MD Work Phone: [facility] 08-02-2023 13:54-0400 Heart rate 71 /min Lenin Chaudhary MD Work Phone: [facility] [facility] 08-02-2023 13:54-0400 Respiratory rate 16 /min Lenin Chaudhary MD Work Phone: [facility] 08-02-2023 13:54-0400 SaO2% (BldA) [Mass fraction] 97 % Lenin Chaudhary MD Work Phone: [facility] 08-02-2023 13:54-0400 Systolic blood pressure 110 mm[Hg] Lenin mathis MD Work Phone: [facility] 07-17-2023 10:20-0400 Diastolic blood pressure 68 mm[Hg] Lenin Chaudhary MD Work Phone: [facility] Comment on above: recheck 07-17-2023 10:20-0400 Systolic blood pressure 128 mm[Hg] Lenin mathis MD Work Phone: [facility] Comment on above: recheck 07-17-2023 09:47-0400 Body mass index (BMI) [Ratio] 25.86 kg/m2 Lenin Chaudhary MD Work Phone: [facility] 07-17-2023 09:47-0400 Body weight 88.91 kg Lenin Chaudhary MD Work Phone: [facility] 07-17-2023 09:47-0400 Heart rate 78 /min Lenin Chaudhary MD Work Phone: [facility] 07-17-2023 09:47-0400 Respiratory rate 16 /min Lenin Chaudhary MD Work Phone: [facility] 07-17-2023 09:47-0400 SaO2% (BldA) [Mass fraction] 98 % Lenin Chaudhary MD Work Phone: [facility] 06-29-2023 08:31-0400 Body height 185.4 cm Rahat Laurent MD Work Phone: [facility] 06-29-2023 08:31-0400 Body mass index (BMI) [Ratio] 26.52 kg/m2 Rahat Laurent MD Work Phone: [facility] 06-29-2023 08:31-0400 Body weight 91.17 kg Rahat Laurent MD Work Phone: [facility] 06-20-2023 10:55-0400 Diastolic blood pressure 90 mm[Hg] Lenin Chaudhary MD Work Phone: [facility] 06-20-2023 10:55-0400 Systolic blood pressure 168 mm[Hg] Lenin mathis MD Work Phone: [facility] 06-20-2023 10:07-0400 Body mass index (BMI) [Ratio] 26.39 kg/m2 Lenin Chaudhary MD Work Phone: [facility] 06-20-2023 10:07-0400 Body weight 90.72 kg Lenin Chaudhary MD Work Phone: [facility] 06-20-2023 10:07-0400 Heart rate 67 /min Lenin Chaudhary MD Work Phone: [facility] 06-20-2023 10:07-0400 Respiratory rate 16 /min Lenin Chaudhary MD Work Phone: [facility] 06-18-2023 08:42-0400 Body temperature 96.6 [degF] Kodak Tejeda DO Work Phone: [facility] [employer] 06-18-2023 08:42-0400 Diastolic blood pressure 70 mm[Hg] Kodak Tejeda DO Work Phone: [facility] 06-18-2023 08:42-0400 Heart rate 77 /min Kodak Tejeda DO Work Phone: [facility] 06-18-2023 08:42-0400 Respiratory rate 17 /min Kodak Tejeda [employer] Work Phone: [facility] 06-18-2023 08:42-0400 SaO2% (BldA) [Mass fraction] 98 % Kodak Tejeda [employer] Work Phone: [facility] 06-18-2023 08:42-0400 Systolic blood pressure 118 mm[Hg] Kodak Tejeda [employer] Work Phone: [facility] 06-13-2023 01:19-0400 Body height 185.4 cm Kodak Tejeda [employer] Work Phone: [facility] 06-13-2023 01:19-0400 Body mass index (BMI) [Ratio] 25.73 kg/m2 Kodak Tejeda [employer] Work Phone: [facility] 06-13-2023 01:19-0400 Body weight 88.45 kg Kodak Tejeda [employer]Box Work Phone: [facility] 06-08-2023 14:51-0400 Body height 185.[address] Moiz Chaudhary Work Phone: [facility] 06-08-2023 14:51-0400 Body weight [address] Moiz Chaudhary Work Phone: [facility] 06-08-2023 14:45-0400 Body temperature 98.6 [degF] Dr. Moiz Chaudhary Work Phone: [facility] 06-08-2023 14:45-0400 Diastolic blood pressure 70 mm[Hg] Dr. Moiz Chaudhary Work Phone: [facility] 06-08-2023 14:45-0400 Heart rate 70 /min Dr. Moiz Chaudhary Work Phone: [facility] 06-08-2023 14:45-0400 Respiratory rate 18 /min Dr. Moiz Chaudhary Work Phone: [facility] 06-08-2023 14:45-0400 SaO2% (BldA) [Mass fraction] 99 % Dr. Moiz Chaudhary Work Phone: [facility] 06-08-2023 14:45-0400 Systolic blood pressure 117 mm[Hg] Dr. Moiz Chaudhary Work Phone: [facility] 06-04-2023 23:37-0400 Body height 185.42 cm [facility] 06-04-2023 23:37-0400 Body mass index (BMI) [Ratio] 26.2 kg/m2 [facility] 06-04-2023 23:37-0400 Body weight 90 kg [facility] 06-04-2023 23:00-0400 Heart rate 86 /min [facility] 06-04-2023 23:00-0400 SaO2% (BldA) [Mass fraction] 100 % [facility] 06-04-2023 22:35-0400 Body temperature 98.4 [degF] [facility] 06-04-2023 22:35-0400 Diastolic blood pressure 70 mm[Hg] [facility] 06-04-2023 22:35-0400 Systolic blood pressure 135 mm[Hg] [facility] 06-04-2023 18:28-0400 Body temperature 98.24 [degF] DR AMALIA PEREZ MD [facility] 06-04-2023 18:28-0400 Body weight 91.[address] AMALIA PEREZ MD [facility] 06-04-2023 18:28-0400 Diastolic Blood Pressure Non-Invasive 57 mm[Hg] DR AMALIA PEREZ MD [facility] 06-04-2023 18:28-0400 Heart rate 88 /min DR AMALIA PEREZ MD [facility] 06-04-2023 18:28-0400 Respiratory rate 18 /min [facility] 06-04-2023 18:28-0400 Systolic Blood Pressure Non-Invasive 108 mm[Hg] DR AMALIA PEREZ MD [facility] 05-02-2023 09:15-0400 Body height 185.4 cm Lenin Chaudhary MD Work Phone: [facility] 05-02-2023 09:15-0400 Body weight 90.72 kg Lenin Chaudhary MD Work Phone: [facility] 05-02-2023 09:15-0400 Diastolic blood pressure 80 mm[Hg] Lenin Chaudhary MD Work Phone: [facility] 05-02-2023 09:15-0400 Heart rate 80 /min Lenin Chaudhary MD Work Phone: [facility] 05-02-2023 09:15-0400 Respiratory rate 16 /min Lenin Chaudhary MD Work Phone: [facility] 05-02-2023 09:15-0400 Systolic blood pressure 134 mm[Hg] Lenin mathis MD Work Phone: [facility] 04-17-2023 08:50-0500 Body weight 89.9 kg Lenin Chaudhary MD Work Phone: [facility] 04-17-2023 08:50-0500 Diastolic blood pressure 68 mm[Hg] Lenin Chaudhary MD Work Phone: [facility] 04-17-2023 08:50-0500 Heart rate 72 /min Lenin Chaudhary MD Work Phone: [facility] 04-17-2023 08:50-0500 Respiratory rate 16 /min Lenin Chaudhary MD Work Phone: [facility] 04-17-2023 08:50-0500 SaO2% (BldA) [Mass fraction] 97 % Lenin Chaudhary MD Work Phone: [facility] 04-17-2023 08:50-0500 Systolic blood pressure 124 mm[Hg] Lenin mathis MD Work Phone: [facility] 01-15-2023 08:42-0500 Body weight 91.63 kg Lenin Chaudhary MD Work Phone: [facility] 01-15-2023 08:42-0500 Diastolic blood pressure 74 mm[Hg] Lenin Chaudhary MD Work Phone: [facility] 01-15-2023 08:42-0500 Heart rate 74 /min Lenin Chaudhary MD Work Phone: [facility] 01-15-2023 08:42-0500 Respiratory rate 16 /min Lenin Chaudhary MD Work Phone: [facility] 01-15-2023 08:42-0500 SaO2% (BldA) [Mass fraction] 99 % Lenin Chaudhary MD Work Phone: [facility] 01-15-2023 08:42-0500 Systolic blood pressure 136 mm[Hg] Lenin mathis MD Work Phone: [facility] 10-06-2022 08:41-0400 Diastolic blood pressure 98 mm[Hg] July Podlogar CHEMICAL RESEARCH ENGINEER.POLISHING MACHINE TENDER Work Phone: [facility] 10-06-2022 08:41-0400 Systolic blood pressure 150 mm[Hg] July Podlogar CHEMICAL RESEARCH ENGINEER.POLISHING MACHINE TENDER Work Phone: [facility] 10-06-2022 08:38-0400 Body weight 90.27 kg July Podlogar CHEMICAL RESEARCH ENGINEER.POLISHING MACHINE TENDER Work Phone: [facility] 10-06-2022 08:38-0400 Heart rate 68 /min July Podlogar CHEMICAL RESEARCH ENGINEER.POLISHING MACHINE TENDER Work Phone: [facility] 10-06-2022 08:38-0400 Respiratory rate 16 /min July Podlogar CHEMICAL RESEARCH ENGINEER.POLISHING MACHINE TENDER Work Phone: [facility] 10-06-2022 08:38-0400 SaO2% (BldA) [Mass fraction] 98 % July Podlogar CHEMICAL RESEARCH ENGINEER.POLISHING MACHINE TENDER Work Phone: [facility] 09-21-2022 09:24-0400 Diastolic blood pressure 84 mm[Hg] Lenin Chaudhary MD Work Phone: [facility] 09-21-2022 09:24-0400 Systolic blood pressure 146 mm[Hg] Lenin mathis MD Work Phone: [facility] 09-21-2022 08:39-0400 Body weight 90.99 kg Lenin Chaudhary MD Work Phone: [facility] 09-21-2022 08:39-0400 Heart rate 69 /min Lenin Chaudhary MD Work Phone: [facility] 09-21-2022 08:39-0400 Respiratory rate 16 /min Lenin Chaudhary MD Work Phone: [facility] 09-21-2022 08:39-0400 SaO2% (BldA) [Mass fraction] 96 % Lenin Chaudhary MD Work Phone: [facility] 06-21-2022 14:27-0400 Body weight 92.99 kg Lenin Chaudhary MD Work Phone: [facility] 06-21-2022 14:27-0400 Diastolic blood pressure 80 mm[Hg] Lenin Chaudhary MD Work Phone: [facility] 06-21-2022 14:27-0400 Heart rate 75 /min Lenin Chaudhary MD Work Phone: [facility] 06-21-2022 14:27-0400 Respiratory rate 16 /min Lenin Chaudhary MD Work Phone: [facility] 06-21-2022 14:27-0400 SaO2% (BldA) [Mass fraction] 96 % Lenin Chaudhary MD Work Phone: [facility] 06-21-2022 14:27-0400 Systolic blood pressure 130 mm[Hg] Lenin mathis MD Work Phone: [facility] 05-29-2022 16:16-0400 Diastolic blood pressure 76 mm[Hg] Lenin Chaudhary MD Work Phone: [facility] 05-29-2022 16:16-0400 Heart rate 75 /min Lenin Chaudhary MD Work Phone: [facility] 05-29-2022 16:16-0400 Respiratory rate 16 /min Lenin Chaudhary MD Work Phone: [facility] 05-29-2022 16:16-0400 SaO2% (BldA) [Mass fraction] 94 % Lenin Chaudhary MD Work Phone: [facility] 05-29-2022 16:16-0400 Systolic blood pressure 128 mm[Hg] Lenin mathis MD Work Phone: [facility] 04-04-2022 08:51-0500 Diastolic blood pressure 89 mm[Hg] July Podlogar CHEMICAL RESEARCH ENGINEER.POLISHING MACHINE TENDER Work Phone: [facility] 04-04-2022 08:51-0500 Heart rate 62 /min July Podlogar CHEMICAL RESEARCH ENGINEER.POLISHING MACHINE TENDER Work Phone: [facility] 04-04-2022 08:51-0500 Systolic blood pressure 152 mm[Hg] July Podlogar CHEMICAL RESEARCH ENGINEER.POLISHING MACHINE TENDER Work Phone: [facility] 04-04-2022 08:24-0500 Body weight 96.44 kg July Podlogar CHEMICAL RESEARCH ENGINEER.POLISHING MACHINE TENDER Work Phone: [facility] 04-04-2022 08:24-0500 Respiratory rate 16 /min July Podlogar CHEMICAL RESEARCH ENGINEER.POLISHING MACHINE TENDER Work Phone: [facility] 04-04-2022 08:24-0500 SaO2% (BldA) [Mass fraction] 98 % July Podlogar CHEMICAL RESEARCH ENGINEER.POLISHING MACHINE TENDER Work Phone: [facility] 02-23-2022 08:05-0500 Body weight 95.89 kg Lenin Chaudhary MD Work Phone: [facility] 02-23-2022 08:05-0500 Diastolic blood pressure 84 mm[Hg] Lenin Chaudhary MD Work Phone: [facility] 02-23-2022 08:05-0500 Heart rate 75 /min Lenin Chaudhary MD Work Phone: [facility] 02-23-2022 08:05-0500 Respiratory rate 16 /min Lenin Chaudhary MD Work Phone: [facility] 02-23-2022 08:05-0500 SaO2% (BldA) [Mass fraction] 98 % Lenin Chaudhary MD Work Phone: [facility] 02-23-2022 08:05-0500 Systolic blood pressure 152 mm[Hg] Lenin mathis MD Work Phone: [facility] 01-25-2022 09:05-0500 Diastolic blood pressure 88 mm[Hg] July Podlogar CHEMICAL RESEARCH ENGINEER.POLISHING MACHINE TENDER Work Phone: [facility] 01-25-2022 09:05-0500 Heart rate 69 /min July Podlogar CHEMICAL RESEARCH ENGINEER.POLISHING MACHINE TENDER Work Phone: [facility] 01-25-2022 09:05-0500 Systolic blood pressure 163 mm[Hg] July Podlogar CHEMICAL RESEARCH ENGINEER.POLISHING MACHINE TENDER Work Phone: [facility] 01-25-2022 08:34-0500 Body temperature 97.5 [degF] July Podlogar CHEMICAL RESEARCH ENGINEER.POLISHING MACHINE TENDER Work Phone: [facility] 01-25-2022 08:34-0500 Body weight 97.16 kg July Podlogar CHEMICAL RESEARCH ENGINEER.POLISHING MACHINE TENDER Work Phone: [facility] 01-25-2022 08:34-0500 Respiratory rate 16 /min July Podlogar CHEMICAL RESEARCH ENGINEER.POLISHING MACHINE TENDER Work Phone: [facility] 01-25-2022 08:34-0500 SaO2% (BldA) [Mass fraction] 98 % July Podlogar CHEMICAL RESEARCH ENGINEER.POLISHING MACHINE TENDER Work Phone: [facility] 12-13-2021 08:27-0400 Diastolic blood pressure 93 mm[Hg] July Podlogar CHEMICAL RESEARCH ENGINEER.POLISHING MACHINE TENDER Work Phone: [facility] 12-13-2021 08:27-0400 Heart rate 62 /min July Podlogar CHEMICAL RESEARCH ENGINEER.POLISHING MACHINE TENDER Work Phone: [facility] 12-13-2021 08:27-0400 Systolic blood pressure 166 mm[Hg] July Podlogar CHEMICAL RESEARCH ENGINEER.POLISHING MACHINE TENDER Work Phone: [facility] 12-13-2021 08:04-0400 Body weight 98.97 kg July Podlogar CHEMICAL RESEARCH ENGINEER.POLISHING MACHINE TENDER Work Phone: [facility] 12-13-2021 08:04-0400 Respiratory rate 16 /min July Podlogar CHEMICAL RESEARCH ENGINEER.POLISHING MACHINE TENDER Work Phone: [facility] 12-13-2021 08:04-0400 SaO2% (BldA) [Mass fraction] 97 % July Podlogar CHEMICAL RESEARCH ENGINEER.POLISHING MACHINE TENDER Work Phone: [facility] 11-29-2021 12:43-0400 Diastolic blood pressure 106 mm[Hg] Lenin Chaudhary MD Work Phone: [facility] 11-29-2021 12:43-0400 Systolic blood pressure 199 mm[Hg] Lenin mathis MD Work Phone: [facility] 11-29-2021 11:46-0400 Body weight 99.88 kg Lenin Chaudhary MD Work Phone: [facility] 11-29-2021 11:46-0400 Heart rate 65 /min Lenin Chaudhary MD Work Phone: [facility] 11-29-2021 11:46-0400 SaO2% (BldA) [Mass fraction] 96 % Lenin Chaudhary MD Work Phone: [facility] 09-06-2021 08:20-0400 Body weight 97.98 kg July Podlogar CHEMICAL RESEARCH ENGINEER.POLISHING MACHINE TENDER Work Phone: [facility] 09-06-2021 08:20-0400 Diastolic blood pressure 80 mm[Hg] July Podlogar CHEMICAL RESEARCH ENGINEER.POLISHING MACHINE TENDER Work Phone: [facility] 09-06-2021 08:20-0400 Heart rate 81 /min July Podlogar CHEMICAL RESEARCH ENGINEER.POLISHING MACHINE TENDER Work Phone: [facility] 09-06-2021 08:20-0400 SaO2% (BldA) [Mass fraction] 96 % July Podlogar CHEMICAL RESEARCH ENGINEER.POLISHING MACHINE TENDER Work Phone: [facility] 09-06-2021 08:20-0400 Systolic blood pressure 124 mm[Hg] July Podlogar CHEMICAL RESEARCH ENGINEER.POLISHING MACHINE TENDER Work Phone: [facility] Encounters Encounter Date Encounter Type Care Provider Facility Start: 01-26-2025 ambulatory Moiz Hsieh lity:[facility] Start: 12-29-2024 ambulatory SHENG GUADALUPEMORGANLC Elsy cility:[phone] Start: 12-08-2024 Encounter for preprocedural cardiovascular examination DHARA GILL [facility] Start: 12-08-2024 End: 12-08-2024 ambulatory LENIN CHAUDHARY Facility:[facility] Start: 11-13-2024 End: 11-13-2024 ambulatory LENIN CHAUDHARY Facility:[facility] Start: 11-04-2024 End: 11-04-2024 Follow-up encounter Lenin Chaudhary MD Work Phone: [facility] Comment on above: Results Start: 11-04-2024 End: 11-04-2024 Telephone encounter Shruthi Cortés RN [facility] Comment on above: Patient Update Start: 11-03-2024 End: 11-03-2024 ambulatory LENIN CHAUDHARY Facility:[facility] Start: 11-03-2024 End: 11-03-2024 Patient encounter procedure Lenin Chaudhary MD Work Phone: [facility] Comment on above: Essential (primary) hypertension (Primary Dx); Mixed hyperlipidemia; Alzheimer's disease (HCC); Coronary artery disease involving [place]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[place] heart without angina pectoris; Chronic diastolic congestive heart failure (HCC); Benign prostatic hyperplasia with nocturia; Normocytic anemia due to blood loss; Gastrointestinal hemorrhage, unspecified gastrointestinal hemorrhage type; Encounter for immunization; History of fall Start: 11-03-2024 End: 11-03-2024 ambulatory LENIN CHAUDHARY Facility:[facility] Start: 10-31-2024 End: 10-31-2024 ambulatory Lenin Chaudhary MD Work Phone: [employer] Comment on above: Allied Health Visit (Medication adherence outreach ) Start: 10-28-2024 End: 10-28-2024 ambulatory Lenin Chaudhary MD Work Phone: [employer] Comment on above: Allied Health Visit (Medication adherence outreach/) Start: 10-27-2024 End: 10-27-2024 ambulatory LENIN CHAUDHARY Facility:[facility] Start: 10-27-2024 End: 10-27-2024 Patient encounter procedure Melani Curtis APRN.POLISHING MACHINE TENDER Work Phone: General Surgery Comment on above: Tubular adenoma of c olon (Primary Dx) Start: 10-17-2024 End: 10-30-2024 Refill Lenin Chaudhary MD Work Phone: [facility] Comment on above: Refill Request report low blood pre ssure Patient Question Start: 10-15-2024 End: 10-15-2024 Refill Lenin Chaudhary MD Work Phone: [facility] [place] Comment on above: Refill Request Start: 10-03-2024 End: 10-03-2024 Telephone encounter Derek Russ APRN.POLISHING MACHINE TENDER Work Phone: [facility] Comment on above: Arbitrator - O ther Start: 10-02-2024 End: 10-02-2024 ambulatory Lenin Chaudhary MD Work Phone: [facility] Comment on above: Allied Health Visit (Medication Adherence Outreach ) Start: 09-25-2024 End: 09-30-2024 Follow-up encounter Diane Purvis APRN.POLISHING MACHINE TENDER Work Phone: [facility] Comment on above: Results Start: 09-24-2024 End: 09-24-2024 ambulatory LENIN CHAUDHARY Facility:[facility] Start: 09-22-2024 End: 09-22-2024 ambulatory Lenin Chaudhary MD Work Phone: [facility] [employer] Comment on above: Allied Health Visit (Medication Adherence Outreach/) Start: 09-22-2024 End: 09-22-2024 Telephone encounter Lenin Chaudhary MD Work Phone: [facility] Comment on above: Patient Update Start: 09-19-2024 End: 09-19-2024 Patient Outreach Rebecca Atkinson RN Work Phone: [employer] Comment on above: Transition Of Care ( TCM FU call day 9) Weekly phone contact (Recurring) for Transitional Care Management Start: 09-18-2024 End: 09-18-2024 ambulatory Rebecca Atkinson RN Work Phone: [employer] Start: 09-18-2024 End: 09-18-2024 Patient encounter procedure Nickie Ahumada APRN.POLISHING MACHINE TENDER Work Phone: [facility] Comment on above: Chronic heart failur e with preserved ejection fraction (HCC) (Primary Dx) Start: 09-16-2024 End: 09-16-2024 Telephone encounter Dhara Gill MD Work Phone: [facility] [place] Start: 09-16-2024 End: 09-16-2024 Patient encounter procedure Lenin Chaudhary MD Work Phone: [facility] [place] Comment on above: Gastrointestinal hem orrhage, unspecified gastrointestinal hemorrhage type (Primary Dx); BRBPR (bright red blood per rectum); Anemia, unspecified type; Fall in home, subsequent encounter; Altered mental status, unspecified altered mental status type; Rib contusion, left, subsequent encounter; Hypotension, unspecified hypotension type; Alzheimer's disease (HCC); Coronary artery disease involving [place]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[place] heart without angina pectoris; Chronic heart failure with preserved ejection fraction (HCC); 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; Hospital discharge follow-up; Chronic diastolic congestive heart failure (HCC) Start: 09-16-2024 End: 09-16-2024 ambulatory LENIN CHAUDHARY Facility:[facility] Start: 09-13-2024 End: 09-17-2024 ambulatory LENIN CHAUDHARY MD Facility:[facility] Start: 09-12-2024 ambulatory LENIN SINGH MD Facility:[facility] Start: 09-11-2024 End: 09-30-2024 Patient Outreach Rebecca Atiknson RN Work Phone: Instruction[employer] Assistant Management Comment on above: Transition Of Care ( TCM INITIAL OUTREACH) Initial phone contact for Transitional Care Management Patient Update; Ministerioi kirk; possible UTI Transition Of Care ( TCM Pharmacy-Hospital discharge 09/10/24) Start: 09-11-2024 End: 09-11-2024 Emergency department patient visit CAROLYN SCOTT MD [facility] Start: 09-09-2024 End: 09-09-2024 ambulatory Randi Mckeon RN Work Phone: Instruction[employer] Assistant Management Comment on above: Discharge Informatio n Transition Of Care ( Reach In) Start: 09-09-2024 End: 09-09-2024 E-mail encounter from caregiver Randi Mckeon RN Work Phone: [employer] Assistant Management Start: 09-08-2024 End: 09-10-2024 Evaluation and management of inpatient RASTAFARI [facility] Facility:[facility] Start: 09-08-2024 End: 09-08-2024 Telephone encounter Skylar Campoverde MD Work Phone: [place] [facility] Adult Comment on above: Hospital To Hospital Start: 09-08-2024 End: 09-08-2024 Emergency department patient visit HERSON MONCADA DO [facility] Start: 09-01-2024 End: 09-01-2024 ambulatory LENIN CHAUDHARY Facility:[facility] Start: 09-01-2024 End: 09-01-2024 Subsequent hospital visit by physician Francisca Vazquez MD Work Phone: [facility] Comment on above: Screen for colon can cer [Z12.11] Start: 08-29-2024 End: 09-01-2024 Telephone encounter Lenin Chaudhary MD Work Phone: [facility] Comment on above: medication questions Start: 08-29-2024 End: 08-29-2024 Patient encounter procedure Lenin Chaudhary MD Work Phone: [facility] Comment on above: Hypotension, unspeci fied hypotension type (Primary Dx); Coronary artery disease involving [place]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[place] heart without angina pectoris; Chronic heart failure with preserved ejection fraction (HCC); Chronic diastolic congestive heart failure (HCC); 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 Start: 08-29-2024 End: 08-29-2024 ambulatory LENIN CHAUDHARY Facility:[facility] Start: 08-29-2024 ambulatory Moiz Chaudhary Faci lity:[facility] Start: 08-28-2024 End: 08-28-2024 Telephone encounter Lenin Chaudhary MD Work Phone: [facility] Comment on above: medication questions Start: 08-27-2024 End: 08-29-2024 Telephone encounter Lenin Chaudhary MD Work Phone: [facility] Comment on above: Patient Update Start: 08-26-2024 End: 08-27-2024 Orders Only Melani Curtis APRN.CNP Work Phone: General Surgery Start: 08-25-2024 End: 08-25-2024 [facility] Start: 08-25-2024 End: 08-25-2024 Anesthesia consultation [facility] Comment on above: Pre-operative examin ation (Primary Dx); Coronary artery disease involving [place]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[place] heart without angina pectoris; Essential hypertension; Mixed hyperlipidemia; Postoperative atrial fibrillation (HCC); Chronic heart failure with preserved ejection fraction (HCC); CHRISTIANO (obstructive sleep apnea); Alzheimer's dementia without behavioral disturbance, psychotic disturbance, mood disturbance, or anxiety, unspecified dementia severity, unspecified timing of dementia onset (HCC); Benign prostatic hyperplasia, unspecified whether lower urinary tract symptoms present Start: 08-25-2024 End: 08-25-2024 [facility] Start: 08-25-2024 End: 08-25-2024 Telephone encounter Francisca Vazquez MD Work Phone: General Surgery Comment on above: Colonoscopy Instruct ions Start: 08-25-2024 End: 08-27-2024 Patient encounter procedure Ekg Card [facility] Work Phone: Cardiology Comment on above: Postoperative atrial fibrillation (HCC) (Primary Dx) Today s appointment Start: 08-25-2024 End: 08-27-2024 ambulatory Sheng Pacheco MD Work Phone: Urology Comment on above: Upcoming colonoscopy Start: 08-18-2024 End: 09-15-2024 Telephone encounter Dhara Gill MD Work Phone: [facility] [place] Comment on above: Patient Update Start: 08-13-2024 End: 08-13-2024 Refill July Richards APRN.POLISHING MACHINE TENDER Work Phone: Family [facility] [place] Comment on above: Refill Request Start: 08-06-2024 End: 08-13-2024 Telephone encounter Lenin Chaudhary MD Work Phone: Family [facility] [place] Comment on above: Patient Question Start: 08-06-2024 End: 08-18-[address] Moiz Chaudhary MD Work Phone: -Cardiac Rehab Start: 08-06-2024 End: 08-18-[address] Kodak Iqbal MD -Cardiac Rehab Work Phone: Start: 08-04-2024 End: 08-04-2024 ambulatory JULY PODLOGAR Facility:[facility] Start: 08-04-2024 End: 08-04-2024 Patient encounter procedure July Richards CHEMICAL RESEARCH ENGINEER.POLISHING MACHINE TENDER Work Phone: Family Medicine [place] Comment on above: Alzheimer's disease (HCC) (Primary Dx); senior care (current) use of anticoagulants; Essential (primary) hypertension; Benign prostatic hyperplasia without lower urinary tract symptoms; Microscopic hematuria; Presence of coronary angioplasty implant and graft Start: 07-31-2024 End: 07-31-2024 Telephone encounter Lenin Chaudhary MD Work Phone: [facility] Comment on above: Patient Update Start: 07-25-2024 End: 07-25-2024 ambulatory Lenin Chaudhary MD Work Phone: [facility] Comment on above: Allied Health Visit (Medication Adherence Outreach/) Start: 07-24-2024 End: 07-24-2024 Refill July Richards APRN.POLISHING MACHINE TENDER Work Phone: [facility] Comment on above: Refill Request Start: 07-22-2024 End: 07-22-2024 ambulatory Lenin [facility]aud[facility]ary MD Work Phone: [facility] Start: 07-22-2024 End: 07-22-2024 Patient encounter procedure Lenin Chaudhary MD Work Phone: [facility] Comment on above: Population Health Na vigation Outreach ([facility] ) Start: 07-18-2024 End: 07-19-[address] Moiz Chaudhary MD Work Phone: [facility] Work Phone: Start: 07-18-2024 End: 07-19-[address] Kodak Iqbal MD -Cardiac Rehab Work Phone: Start: 07-15-2024 End: 08-04-2024 Telephone encounter Dhara Gill MD Work Phone: Cardiology Comment on above: Patient Question Start: 06-25-2024 End: 06-25-2024 ambulatory SHENG PACHECO Facility:[facility] Start: 06-25-2024 End: 06-25-2024 Patient encounter procedure Sheng Pacheco MD Work Phone: Urology Comment on above: Microscopic hematuri a (Primary Dx) Start: 06-18-2024 End: 06-24-2024 ambulatory Lenin Chaudhary MD Work Phone: [facility] Comment on above: changing medication for memory loss Start: 06-18-2024 End: 06-18-[address] Kodak Iqbal MD -Cardiac Rehab Work Phone: Start: 06-06-2024 End: 06-06-2024 Telephone encounter Shruthi Cortés RN [facility] Comment on above: Patient Update Start: 06-03-2024 End: 08-03-2024 Follow-up encounter Kobe Rodriguez APRN.POLISHING MACHINE TENDER, DNP Work Phone: Urology Start: 05-27-2024 End: 05-27-2024 ambulatory LENIN CHAUDHARY Facility:[facility] Start: 05-27-2024 End: 05-27-2024 Subsequent hospital visit by physician Ct [facility] (I-Stat) Work Phone: Cat Scan Comment on above: Microscopic hematuri a [R31.29] Start: 05-26-2024 End: 05-26-2024 ambulatory Lenin Chaudhary MD Work Phone: [facility] Comment on above: Allied Health Visit (Medication Adherence Outreach ) Start: 05-26-2024 End: 05-26-2024 Patient encounter procedure Dhara Gill MD Work Phone: Cardiology Comment on above: Coronary artery dise ase involving [place]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[place] heart without angina pectoris (Primary Dx); Postoperative atrial fibrillation (HCC); Chronic heart failure with preserved ejection fraction (HCC); Essential hypertension; Mixed hyperlipidemia Start: 05-23-2024 End: 05-23-2024 ambulatory Lenin Chaudhary MD Work Phone: [facility] Comment on above: Allied Health Visit (Medication Adherence Outreach ) Start: 05-21-2024 End: 05-21-2024 ambulatory LENIN CHAUDHARY [facility] [facility] Start: 05-21-2024 End: 05-21-2024 Nursing evaluation of patient and report Nurse Card Chf 2 [facility] Comment on above: Congestive heart jumana lure, unspecified HF chronicity, unspecified heart failure type (HCC) (Primary Dx) Start: 05-19-2024 End: 05-19-[address] Moiz Chaudhary MD Work Phone: [facility] Work Phone: Start: 05-19-2024 End: 05-19-[address] Kodak Iqbal MD -Cardiac Rehab Work Phone: Start: 05-15-2024 End: 05-15-2024 Telephone encounter Dhara Gill MD Work Phone: Cardiology Comment on above: Patient Update Start: 05-13-2024 End: 07-13-2024 Follow-up encounter Nickie Ahumada APRN.POLISHING MACHINE TENDER Work Phone: [facility] Start: 05-11-2024 End: 05-16-2024 Follow-up encounter Kobe Rodriguez APRN.POLISHING MACHINE TENDER, DNP Work Phone: Urology Start: 05-09-2024 End: 05-09-2024 ambulatory CAROLINE ELIF Facility:[facility] Start: 05-07-2024 End: 05-07-2024 Telephone encounter Carla Wing RN [facility] Comment on above: nd HFC follow up/ian ne visit Guillermina Cabrera al HHC update Start: 05-07-2024 End: 05-07-2024 ambulatory LENIN CHAUDHARY Facility[facility] Start: 05-07-2024 End: 05-07-2024 Nursing evaluation of patient and report Nurse Card Chf 2 [facility] Comment on above: Congestive heart jumana lure, unspecified HF chronicity, unspecified heart failure type (HCC) [I50.9] (Primary Dx) Start: 05-06-2024 End: 05-06-2024 ambulatory Lenin Chaudhary MD Work Phone: [facility] Comment on above: Allied Health Visit (Medication Adherence Outreach) Start: 05-05-2024 End: 10-14-2024 Telephone encounter Melani Curtis APRN.POLISHING MACHINE TENDER Work Phone: General Surgery Comment on above: 09-01-[address] Vazquez Start: 05-05-2024 End: 05-05-2024 ambulatory Lenin Chaudhary MD Work Phone: [facility] [employer] Comment on above: Allied Health Visit (Medication Adherence Outreach/) Start: 05-05-2024 End: 05-05-2024 Patient encounter procedure Andrew Clifford APRN.POLISHING MACHINE TENDER Work Phone: Pulmonary Medicine Comment on above: Lung nodule (Primary Dx) Screen for colon can cer (Primary Dx); History of colonic polyps Coronary artery dise ase involving [place]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[place] heart without angina pectoris (Primary Dx); Atrial fibrillation, unspecified type (HCC); Essential hypertension; Mixed hyperlipidemia; Bilateral lower extremity edema; Alzheimer's dementia without behavioral disturbance, psychotic disturbance, mood disturbance, or anxiety, unspecified dementia severity, unspecified timing of dementia onset (HCC); Benign prostatic hyperplasia with nocturia Start: 04-30-2024 End: 04-30-[address] Moiz Chaudhary MD Work Phone: [facility] Work Phone: Start: 04-30-2024 End: 04-30-[address] Kodak Iqbal MD -Cardiac Rehab Work Phone: Start: 04-30-2024 End: 04-30-2024 ambulatory Moiz Chaudhary Facility:[facility] Start: 04-24-2024 End: 04-25-2024 Telephone encounter Kodak Iqbal MD Work Phone: [facility] Comment on above: Patient Question Start: 04-24-2024 End: 04-24-2024 Patient encounter procedure Caroline Orlando APRN.POLISHING MACHINE TENDER Work Phone: [facility] Comment on above: S/P CABG x 3 (Primar y Dx); Multiple vessel coronary artery disease; Delayed wound healing; Chronic heart failure with preserved ejection fraction (HCC); Chronic diastolic congestive heart failure (HCC); Hypervolemia, unspecified hypervolemia type Start: 04-24-2024 End: 04-24-2024 ambulatory LENIN CHAUDHARY [facility] Start: 04-22-2024 End: 04-22-2024 ambulatory LENIN CHAUDHARY Facility:[facility] Start: 04-18-2024 End: 04-18-2024 Telephone encounter Lenin Chaudhary MD Work Phone: [facility] Comment on above: Patient Update Other (Lidocaine pat ch) Start: 04-18-2024 End: 04-18-2024 ambulatory LENIN CHAUDHARY Facility:[facility] Start: 04-18-2024 End: 04-18-2024 Nursing evaluation of patient and report Nurse Card Chf 1 [facility] Comment on above: Congestive heart jumana lure, unspecified HF chronicity, unspecified heart failure type (HCC) [I50.9] (Primary Dx) Start: 04-15-2024 End: 04-16-2024 Telephone encounter Sylwia BRASWELL [facility] Comment on above: Patient Question (AG HFC ) Orders Start: 04-15-2024 End: 04-15-2024 [facility] CHAUDH[facility] Facility:[facility] Start: 04-15-2024 End: 04-15-2024 Patient encounter procedure Derek Russ APRN.POLISHING MACHINE TENDER Work Phone: [facility] Comment on above: Chronic heart failur e with preserved ejection fraction (HCC) (Primary Dx); Delayed surgical wound healing, subsequent encounter; S/P CABG (coronary artery bypass graft); Hypervolemia, unspecified hypervolemia type Start: 04-14-2024 End: 04-14-2024 ambulatory LENIN CHAUDHARY Facility:[facility] Start: 04-14-2024 End: 04-14-2024 Patient encounter procedure Kobe Rodriguez APRN.POLISHING MACHINE TENDER, DNP Work Phone: Urology Comment on above: Benign prostatic hyp erplasia with urinary frequency (Primary Dx); Benign prostatic hyperplasia with nocturia; Alzheimer's dementia without behavioral disturbance, psychotic disturbance, mood disturbance, or anxiety, unspecified dementia severity, unspecified timing of dementia onset (HCC); Anticoagulated Start: 04-10-2024 End: 04-10-2024 Telephone encounter Kodak Iqbal MD Work Phone: [facility] Start: 04-09-2024 End: 04-10-2024 Telephone encounter Kodak Iqbal MD Work Phone: [facility] Comment on above: Question (Fax not re ceived) Start: 04-08-2024 End: 04-08-2024 Telephone encounter Kodak Iqbal MD Work Phone: [facility] Comment on above: Future Appointment Orders Start: 04-07-2024 End: 04-07-2024 Telephone encounter Kodak Iqbal MD Work Phone: [facility] Comment on above: Orders Start: 04-07-2024 End: 04-07-2024 Patient encounter procedure Sole Burrows APRN.POLISHING MACHINE TENDER Work Phone: [facility] Comment on above: S/P CABG (coronary a rtery bypass graft) (Primary Dx); SOB (shortness of breath); Congestive heart failure, unspecified HF chronicity, unspecified heart failure type (HCC) Start: 04-07-2024 End: 04-07-2024 ambulatory LENIN CHAUDHARY Facility:[facility] Start: 04-04-2024 End: 04-08-2024 ambulatory LENIN CHAUDHARY MD Facility:[facility] Start: 04-04-2024 End: 04-04-2024 Telephone encounter Kodak Iqbal MD Work Phone: [facility] Comment on above: Patient Update (Lab results) Patient Update Start: 04-04-2024 End: 04-08-2024 ambulatory LENIN CHAUDHARY MD Facility:[facility] Start: 04-03-2024 End: 04-03-2024 Telephone encounter Lenin Chaudhary MD Work Phone: [facility] [place] Comment on above: Medication Request Start: 04-01-2024 End: 04-01-2024 Telephone encounter Lenin Chaudhary MD Work Phone: [facility] [place] Comment on above: Sleep Problem [facility] Start: 03-31-2024 End: 03-31-2024 Telephone encounter Kodak Iqbal MD Work Phone: [facility] Start: 03-31-2024 End: 04-04-2024 Outreach Lab CARL RUIZ [facility] Start: 03-31-2024 End: 03-31-2024 Non-patient / Non-visit Dr. Aamlia Reynoso MD -[facility] Work Phone: Start: 03-31-2024 End: 03-31-2024 Admission to same day surgery center Kodak Iqbal MD Work Phone: [facility] Comment on above: Wound care for leg w ound post CABG Surgery Start: 03-31-2024 End: 04-04-2024 ambulatory Kodak Iqbal MD Work Phone: [facility] Start: 03-28-2024 End: 03-28-2024 Telephone encounter Kodak Iqbal MD Work Phone: [facility] Comment on above: Patient Update; Nancy ent Question Start: 03-26-2024 End: 03-26-2024 Telephone encounter Sole [facility] Comment on above: Acute blood loss ane leia (Primary Dx) Orders Start: 03-26-2024 End: 03-26-2024 ambulatory MAREN RUIZ Facility:[facility] Start: 03-26-2024 End: 03-26-2024 Subsequent hospital visit by physician Xr [facility] Work Phone: Radiology Comment on above: Coronary artery dise ase involving [place]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[place] heart without angina pectoris [I25.10] Start: 03-25-2024 End: 03-25-2024 Telephone encounter Kodak Iqbal MD Work Phone: [facility] Comment on above: Cardiac Rehab (Refer ral info ) Start: 03-24-2024 End: 03-24-2024 ambulatory LENIN CHAUDHARY Facility[facility] Start: 03-24-2024 End: 03-24-2024 Patient encounter procedure Caroline Orlando APRN.POLISHING MACHINE TENDER Work Phone: [facility] Comment on above: S/P CABG (coronary a rtery bypass graft) (Primary Dx); Multiple vessel coronary artery disease; Delayed surgical wound healing, initial encounter; PAF (paroxysmal atrial fibrillation) (HCC); Acute respiratory insufficiency, postoperative Start: 03-23-2024 End: 03-23-2024 ambulatory Angi Tubbs RN Work Phone: NURSE OFFICE MACHINE INSTALLER Comment on above: Patient Update Start: 03-20-2024 End: 03-20-2024 Telephone encounter Caroline Orlando APRN.POLISHING MACHINE TENDER Work Phone: [facility] Start: 03-14-2024 End: 03-14-2024 Telephone encounter Sole Burrows APRN.POLISHING MACHINE TENDER Work Phone: [facility] Start: 03-13-2024 ambulatory [facility] Start: 02-29-2024 End: 02-29-2024 Telephone encounter Maren Logan LPN Work Phone: [facility] Comment on above: Home Care ( to Dalia dinh) Start: 02-28-2024 End: 03-10-2024 Evaluation and management of inpatient JOSH PENN Facility:[facility] Start: 02-19-2024 End: 02-21-2024 Telephone encounter Lenin Chaudhary MD Work Phone: [facility] Comment on above: Results Start: 02-18-2024 End: 02-18-2024 ambulatory Mohsen MUNGUIA Pulmonary Medicine Start: 02-18-2024 End: 02-18-2024 Telephone encounter Kodak Iqbal MD Work Phone: [facility] Comment on above: Surgery Cancelled (N ew Surgery Info ) Start: 02-12-2024 End: 02-12-2024 ambulatory Andrew Clifford APRN.POLISHING MACHINE TENDER Work Phone: Pulmonary Medicine Start: 02-11-2024 End: 02-11-2024 ambulatory LENIN CHAUDHARY Facility:[facility] Start: 02-11-2024 End: 02-11-2024 Patient encounter procedure Kobe Rodriguez APRN.POLISHING MACHINE TENDER, DNP Work Phone: Urology Comment on above: Benign prostatic hyp erplasia with urinary frequency (Primary Dx); Alzheimer's dementia without behavioral disturbance, psychotic disturbance, mood disturbance, or anxiety, unspecified dementia severity, unspecified timing of dementia onset (HCC); Benign prostatic hyperplasia with nocturia Start: 02-07-2024 End: 02-07-2024 ambulatory DHARA GILL Facility:[facility] Start: 02-07-2024 Encounter for other preprocedural examination LENIN CHAUDHARY [facility] Start: 02-07-2024 End: 02-07-2024 Patient encounter procedure Caroline Orlando APRN.CNP Work Phone: [facility] Comment on above: Pre-op exam (Primary Dx); Multiple vessel coronary artery disease; Pulmonary nodule; Alzheimer's dementia without behavioral disturbance, psychotic disturbance, mood disturbance, or anxiety, unspecified dementia severity, unspecified timing of dementia onset (HCC) Start: 02-07-2024 End: 02-07-2024 Preprocedural examination done Caroline Orlando APRN.POLISHING MACHINE TENDER Work Phone: [facility] Work Phone: Start: 02-07-2024 End: 02-07-2024 ambulatory CAROLINE ORLANDO Facility:[facility] Start: 02-07-2024 Encounter for other preprocedural examination CAROLINE ORLANDO [facility] Start: 02-07-2024 End: 02-07-2024 Telephone encounter Lenin Chaudhary MD Work Phone: [facility] [place] Start: 02-06-2024 End: 02-06-2024 Patient encounter procedure Lenin Chaudhary MD Work Phone: [facility] [place] Comment on above: Coronary artery dise ase involving [place]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[place] heart without angina pectoris (Primary Dx); Bilateral lower extremity edema; Alzheimer's dementia without behavioral disturbance, psychotic disturbance, mood disturbance, or anxiety, unspecified dementia severity, unspecified timing of dementia onset (HCC); Essential hypertension; Mixed hyperlipidemia; Benign prostatic hyperplasia with nocturia; Iron deficiency anemia, unspecified iron deficiency anemia type Start: 02-06-2024 End: 02-06-2024 ambulatory LENIN CHAUDHARY Facility:[facility] Start: 02-04-2024 End: 02-04-2024 Patient encounter procedure [facility] Provider [facility] Start: 02-01-2024 End: 02-01-2024 Orders Only Maren Ruiz APRN.POLISHING MACHINE TENDER Work Phone: [facility] Comment on above: Lung nodule (Primary Dx) Start: 01-29-2024 End: 01-29-2024 ambulatory Pulm Lab [facility] Work Phone: PULM [facility] Comment on above: Spirometry Start: 01-29-2024 Encounter for other preprocedural examination LENIN CHAUDHARY [facility] Start: 01-29-2024 End: 01-29-2024 Patient encounter procedure Pulm Lab [facility] Work Phone: PUL[facility] Start: 01-29-2024 End: 01-29-2024 Patient encounter status Pulm Lab [facility] Work Phone: [facility] Start: 01-29-2024 End: 01-29-[address] (I-Stat) Work Phone: [facility] Start: 01-29-2024 End: 01-29-2024 Subsequent hospital visit by physician Ct [facility] (I-Stat) Work Phone: Cat Scan Comment on above: Multiple vessel delon nary artery disease [I25.10] Start: 01-28-2024 End: 01-28-2024 Telephone encounter Dhara Gill MD Work Phone: [facility] [place] Comment on above: Cardiac Clearance Start: 01-28-2024 ambulatory CAROLINE ORLANDO Facility:1 [id number] Start: 01-28-2024 Encounter for other preprocedural examination [facility] Start: 01-28-2024 End: 01-28-2024 Patient encounter status [facility] Start: 01-28-2024 End: 01-28-2024 Subsequent hospital visit by physician Latisha Lab Richardy Rm 2 [facility] Comment on above: Multiple vessel delon nary artery disease [I25.10] Start: 01-25-2024 End: 01-25-2024 Patient encounter status Kodak qIbal MD Work Phone: [facility] Start: 01-25-2024 End: 01-25-2024 Telephone encounter Kodak Iqbal MD Work Phone: [facility] Comment on above: Lab Orders Start: 01-24-2024 End: 01-25-2024 Telephone encounter Kodak Iqbal MD Work Phone: [facility] Comment on above: Schedule Surgery Start: 01-22-2024 End: 01-22-2024 Telephone encounter Kodak Iqbal MD Work Phone: [facility] Comment on above: Future Appointment Start: 01-22-2024 End: 01-22-2024 Patient encounter procedure Kodak Iqbal MD Work Phone: [facility] Comment on above: Multiple vessel delon nary artery disease (Primary Dx); CHRISTIANO (obstructive sleep apnea); Preoperative testing Start: 01-22-2024 End: 01-22-2024 Patient encounter status oKdak Iqbal MD Work Phone: [facility] Start: 01-22-2024 End: 01-22-2024 ambulatory HDARA GILL [facility] Start: 01-14-2024 ambulatory LENIN Marmolejo acility:[facility] Start: 01-11-2024 End: 01-15-2024 ambulatory LENIN CHAUDHARY MD Facility:[facility] Start: 01-11-2024 End: 01-15-2024 Outreach Lab DHARA GLIL MD [facility] Start: 01-09-2024 End: 01-09-2024 Patient encounter procedure Ccf Provider [facility] Start: 01-08-2024 End: 01-08-2024 Telephone encounter Dhara Gill MD Work Phone: [facility] [place] Comment on above: Cardiac Clearance Start: 01-07-2024 End: 01-07-2024 ambulatory LENIN CHAUDHARY Facility:[facility] Start: 01-07-2024 End: 01-07-2024 Patient encounter procedure Dhara Gill MD Work Phone: Cardiology Comment on above: Abnormal nuclear str ess test (Primary Dx); Essential hypertension; Mixed hyperlipidemia Start: 01-05-2024 End: 01-07-2024 Telephone encounter Lenin Chaudhary MD Work Phone: [facility] Medicine [place] Comment on above: Driving test Start: 12-21-2023 End: 12-24-2023 Telephone encounter Lenin Chaudhary MD Work Phone: [facility] Comment on above: Results Start: 12-21-2023 ambulatory LENNI CHAUDHARY acility:[facility] Start: 12-21-2023 End: 12-21-2023 Subsequent hospital visit by physician [facility] Work Phone: Molecular Imaging Comment on above: Abnormal electrocard iogram [R94.31] Start: 12-20-2023 End: 12-20-2023 Telephone encounter Jason Stewart RN Cardiology Lab Start: 12-19-2023 End: 12-19-2023 Telephone encounter Lenin Chaudhary MD Work Phone: [facility] [place] Start: 12-17-2023 End: 12-17-2023 Telephone encounter Lenin Chaudhary MD Work Phone: [facility] Comment on above: Faxed to [facility] pre adm ission testing Appointment Start: 12-14-2023 End: 01-09-2024 Telephone encounter Lenin Chaudhary MD Work Phone: [facility] Comment on above: Results Start: 12-13-2023 End: 12-13-2023 Telephone encounter Lenin Chaudhary MD Work Phone: [facility] [place] Comment on above: orders faxed to [facility] - stress test Start: 12-13-2023 ambulatory LENIN Marmolejo acility:[facility] Start: 12-13-2023 End: 12-13-2023 Subsequent hospital visit by physician [facility] Work Phone: Molecular Imaging Comment on above: Abnormal electrocard iogram [R94.31] Start: 12-12-2023 End: 12-12-2023 Telephone encounter Summer Fletcher RN Cardiology Lab Comment on above: Reminder Call Start: 12-10-2023 End: 12-10-2023 Telephone encounter [facility] Comment on above: Results; Appointment (Stress Test, Echo) Start: 12-07-2023 End: 12-10-2023 Telephone encounter Lenin Chaudhary MD Work Phone: [facility] [place] Comment on above: Appointment Start: 12-07-2023 End: 12-07-2023 Patient encounter procedure Lenin Chaudhary MD Work Phone: [facility] [place] Comment on above: Pre-op evaluation (P rimary Dx); Primary osteoarthritis of right hip; Iron deficiency anemia secondary to inadequate dietary iron intake; Abnormal electrocardiogram Start: 12-07-2023 End: 12-07-2023 Preprocedural examination done Lenin Chaudhary MD Work Phone: [facility] Work Phone: Start: 11-12-2023 End: 11-13-2023 Telephone encounter Lenin [facility] Comment on above: Patient Question Start: 11-06-2023 End: 11-06-2023 Telephone encounter Lenin Chaudhary MD Work Phone: [facility] Comment on above: Patient Update; Orde rs Start: 11-05-2023 End: 11-05-2023 Patient encounter procedure Kobe Rodriguez CHEMICAL RESEARCH ENGINEER.POLISHING MACHINE TENDER, DNP Work Phone: Urology Comment on above: Benign prostatic hyp erplasia with urinary frequency (Primary Dx); Alzheimer's dementia without behavioral disturbance, psychotic disturbance, mood disturbance, or anxiety, unspecified dementia severity, unspecified timing of dementia onset (HCC) Start: 10-23-2023 End: 10-23-2023 Patient encounter procedure Lenin Chaudhary MD Work Phone: [facility] [place] Comment on above: Alzheimer's dementia without behavioral disturbance, psychotic disturbance, mood disturbance, or anxiety, unspecified dementia severity, unspecified timing of dementia onset (HCC) (Primary Dx); Essential hypertension; Mixed hyperlipidemia; CHRISTIANO on CPAP; Iron deficiency anemia secondary to inadequate dietary iron intake; Benign prostatic hyperplasia, unspecified whether lower urinary tract symptoms present; Arthritis of knee Start: 10-19-2023 End: 10-23-2023 Telephone encounter July Richards APRN.CNP Work Phone: [facility] Comment on above: Constipation Start: 10-11-2023 End: 10-12-2023 Telephone encounter Lenin Chaudhary MD Work Phone: [facility] Comment on above: Orders Start: 10-04-2023 Telephone encounter Moiz Chaudhary MD Work Phone: [facility] Comment on above: Patient Question; Me dication Question Start: 09-25-2023 Refill Lenin Chaudhary MD Work Phone: [facility] Comment on above: Refill Request [facility] ce/verify medications Start: 09-21-2023 Refill Lenin Chaudhary MD Work Phone: [facility] [place] Comment on above: Refill Request Start: 09-14-2023 Telephone encounter Moiz Chaudhary MD [facility] Phone: [facility] Comment on above: Patient Update (Bloo d Pressure Readings) Start: 09-12-2023 Telephone encounter Moiz Chaud[facility]ary MD [facility] Comment on above: Low BP readings. Start: 08-24-2023 Telephone encounter Moiz Chaudhary MD Work Phone: [facility] Comment on above: Refill Request Start: 08-17-2023 End: 08-17-2023 Patient encounter procedure July Susie ALPOLISHING MACHINE TENDER Work Phone: [facility] Comment on above: Hypotension, unspeci fied hypotension type (Primary Dx) Start: 08-07-2023 Telephone encounter Katty Rodriguez MD Work Phone: Neurology Comment on above: Medication Problem Start: 08-06-2023 Telephone encounter Moiz Chaudhary MD Work Phone: [facility] Comment on above: Physical Therapy Upd ate Start: 08-05-2023 Refill Katty Rodriguez MD Work Phone: Neurology Comment on above: Refill Request Start: 08-02-2023 Telephone encounter Moiz Chaudhary MD Work Phone: [facility] Comment on above: Orders Patient Update (meds are being taken) Start: 08-02-2023 End: 08-02-2023 Patient encounter procedure Lenin Chaudhary MD Work Phone: [facility] Comment on above: Acute bilateral low back pain without sciatica (Primary Dx); Flank pain; Hypotension, unspecified hypotension type; Alzheimer's dementia without behavioral disturbance, psychotic disturbance, mood disturbance, or anxiety, unspecified dementia severity, unspecified timing of dementia onset ([facility]) Start: 07-27-2023 Refill Lenin Chaudhary MD Work Phone: [facility] Comment on above: Refill Request Start: 07-19-2023 Telephone encounter Moiz Chaudhary MD Work Phone: [facility] Comment on above: Physical Therapy Upd ate Start: 07-18-2023 Telephone encounter Moiz Chaudhary MD Work Phone: [facility] Comment on above: Results FYI-OT follow up Start: 07-17-2023 End: 07-17-2023 Patient encounter procedure Lenin Chaudhary MD Work Phone: [facility] Comment on above: Gastrointestinal hem orrhage, unspecified gastrointestinal hemorrhage type (Primary Dx); Anemia, unspecified type; Essential hypertension; Benign prostatic hyperplasia with nocturia; Alzheimer's dementia without behavioral disturbance, psychotic disturbance, mood disturbance, or anxiety, unspecified dementia severity, unspecified timing of dementia onset ([facility]) Start: 07-13-2023 Refill Lenin Chaudhary MD Work Phone: [facility] Comment on above: Refill Request; Futu re Appointment; pharmacy change Start: 07-11-2023 Telephone encounter Moiz Chaudhary MD Work Phone: [facility] Start: 07-05-2023 Telephone encounter Moiz Chaudhary MD [facility] Phone: [facility] Comment on above: ST Plan of Care Start: 06-29-2023 Telephone encounter Moiz Chaudhary MD Work Phone: [facility] Comment on above: Orders Refill Request Start: 06-29-2023 End: 06-29-2023 Office outpatient new 45 minutes Rahat Laurent MD Work Phone: Urology Comment on above: Benign prostatic hyp erplasia with urinary frequency (Primary Dx); Retention of urine; Urinary tract infection without hematuria, site unspecified Start: 06-22-2023 Telephone encounter Moiz Chaudhary MD Work Phone: [facility] Comment on above: PT plan of care Start: 06-21-2023 Telephone encounter July garza APRN.CNP Work Phone: [facility] Comment on above: Results [facility],ve rbal orders requested Start: 06-21-2023 End: 08-07-2023 ambulatory LENIN CHAUDHARY MD Facility:[facility] Start: 06-20-2023 Telephone encounter Moiz Chaudhary MD [facility] Phone: [facility] Comment on above: home health asking f or verbal order Appointment Request Start: 06-20-2023 End: 06-20-2023 Patient encounter procedure Lenin Chaudhary MD Work Phone: [facility] Comment on above: Gastrointestinal hem orrhage, unspecified gastrointestinal hemorrhage type (Primary Dx); Acute gastric ulcer with hemorrhage; Anemia, unspecified type; Acute cystitis without hematuria; Urinary retention; Alzheimer's dementia without behavioral disturbance, psychotic disturbance, mood disturbance, or anxiety, unspecified dementia severity, unspecified timing of dementia onset (HCC); Age-related physical debility; Essential hypertension Start: 06-19-2023 Telephone encounter Maren P[facility] Clinical Communication Comment on above: Hospital Follow-up Start: 06-18-2023 Telephone encounter Moiz Chaudhary MD Work Phone: [facility] Comment on above: home health coordina tor calling Start: 06-12-2023 End: 06-18-2023 Evaluation and management of inpatient [facility] Start: 06-12-2023 End: 06-18-2023 Evaluation and management of inpatient Kodak Tejeda DO Work Phone: [facility] Comment on above: Encephalopathy (Prim erica Dx); Upper GI bleed; Blood loss anemia; Urinary tract infection associated with indwelling urethral catheter, initial encounter (HCC) Start: 06-08-2023 Telephone encounter Moiz Chaudhary MD Work Phone: [facility] Comment on above: Appointment Start: 06-08-2023 Non-patient / Non-visit Dr. Franck Chaudhary Work Phone: [facility] Work Phone: Start: 06-07-2023 Non-patient / Non-visit Dr. Franck Chaudhary Work Phone: [facility] Work Phone: Start: 06-06-2023 Non-patient / Non-visit Dr. Franck Chaudhary Work Phone: [facility] Start: 06-06-2023 Non-patient / Non-visit Dr. Franck Chaudhary Work Phone: [facility] Work Phone: Start: 06-05-2023 Non-patient / Non-visit Dr. Franck Chaudhary Work Phone: [facility] Start: 06-05-2023 Non-patient / Non-visit Dr. Franck Chaudhary Work Phone: [facility] Work Phone: Start: 06-04-2023 Non-patient / Non-visit Dr. Franck Chaudhary Work Phone: [facility] Start: 06-04-2023 End: 06-08-2023 [facility] Work Phone: Start: 06-04-2023 End: 06-04-2023 Emergency department patient visit DR AMALIA PEREZ MD [facility] Start: 05-07-2023 End: 05-07-2023 [facility] Katty Rodriguez MD Work Phone: Neurology Comment on above: Driving safety issue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 hyperlipidemia Expected: 08/19/2024, Expires: 05/20/2025 [facility] Comment on above: Expected: 08/19/2024, Expires: Start: 08-19-2024 End: 05-20-2025 Lipid 1996 panel - Serum or Plasma LIPID PANEL, FASTING Lab Routine Mixed hyperlipidemia Expected: 08/19/2024, Expires: 05/20/2025 [facility] Comment on above: Expected: 08/19/2024, Expires: Start: 08-19-2024 End: 05-20-2025 Natriuretic peptide.B prohormone N-Terminal [Mass/volume] in Serum or Plasma NT PRO BNP Lab Routine Chronic heart failure with preserved ejection fraction (HCC) Expected: 08/19/2024, Expires: 05/20/2025 [facility] Comment on above: Expected: 08/19/2024, Expires: Start: 08-18-2024 End: 08-18-2024 Patient encounter procedure Cardiology Comment on above: 6 month follow up Start: 08-18-2024 Influenza vaccination Influenza Vaccine (#1) [facility] Comment on above: Postponed from 10/21/2023 (Declined at t his time) Start: 08-18-2024 End: 08-18-2024 Anesthesia consultation 08/18/2024 9:00 AM EDT PAT Pre Anesthesia [address] [place] [address] 1, Pacc [facility] [address] [place] [address] VIRTUAL [phone] Pre Anesthesia Comment on above: VIRTUAL [phone] Start: 08-16-2024 Annual PCP Team Chronic Disease Visit Annual PCP Team Chronic Disease Visit [facility] Start: 08-16-2024 BP Controlled (<130/80) BP Controlled (<130/80) [facility] Start: 08-06-2024 End: 08-06-2024 Patient encounter procedure 08/06/2024 10:20 AM EDT Office Visit Family Medicine [facility] [address] [place] [address] PodJuly haque APRN.POLISHING MACHINE TENDER [address] [facility] [place] [address] 3 month routine follow up Family Medicine [facility] Comment on above: 3 month routine follow up Start: 08-04-2024 End: 08-04-2024 Patient encounter procedure 08/04/2024 1:20 PM EDT Office Visit Family Medicine [place] [address] [place] [address] July Richards APRN.POLISHING MACHINE TENDER [address] [facility] [place] [address] 3 month routine follow up-pt's son to attend also Family [facility] Sanchez Comment on above: 3 month routine follow up-pt's son to at tend also Start: 08-01-2024 Annual PCP Team Chronic Disease Visit Annual PCP Team Chronic Disease Visit [facility] Start: 08-01-2024 BP Controlled (<130/80) BP Controlled (<130/80) [facility] Start: 08-01-2024 End: 08-01-2024 Patient encounter procedure 08/01/2024 1:00 PM EDT Office Visit Family Medicine [facility] [address] [place] [address] Lenin Chaudhary MD [address] [facility] [place] [address] 3 month routine follow up-pt's son to attend also Family Medicine [facility] Comment on above: 3 month routine follow up-pt's son to at tend also Start: 07-16-2024 Annual PCP Team Chronic Disease Visit Annual PCP Team Chronic Disease Visit [facility] Start: 07-16-2024 BP Controlled (<130/80) BP Controlled (<130/80) [facility] Start: 06-25-2024 End: 06-25-2024 Patient encounter procedure Urology Comment on above: Cysto UA - Cysto Start: 06-19-2024 Annual PCP Team Chronic Disease Visit Annual PCP Team Chronic Disease Visit [facility] Start: 05-27-2024 End: 05-27-2024 Patient encounter procedure 05/27/2024 1:00 PM EDT Appointment Cat Scan [address] [place] [address] Microscopic hematuria [R31.29] Cat Scan Comment on above: Microscopic hematuria [R31.29] Start: 05-26-2024 End: 05-26-2024 Patient encounter procedure 05/26/2024 11:00 AM EDT Office Visit Cardiology [address] [place] [address] Dhara Gill MD [address] [place], [place] [phone] Follow up after CABG surgery Cardiology Comment on above: Follow up after CABG surgery Start: 05-25-2024 End: 06-10-2025 CT Kidney WO and W contrast IV CT UROGRAM WO/W IVCON Radiology Routine Microscopic hematuria Expected: 05/25/2024, Expires: 06/10/2025 [facility] Comment on above: Expected: 05/25/2024, Expires: Start: 05-21-2024 End: 05-21-2024 Patient encounter procedure 05/21/2024 10:45 AM EDT Office Visit [facility] [address] [place], [place] [phone] Derek Russ, CHEMICAL RESEARCH ENGINEER.POLISHING MACHINE TENDER [address] [place], [place] [phone] 3, Nurse Card Chf [phone] [facility] Comment on above: [phone] Start: 05-21-2024 End: 05-21-2024 Nursing evaluation of patient and report 05/21/2024 10:30 AM EDT Nurse Visit [facility] [address] [place] [address] 2, Nurse Card Chf Contact Nurse at [facility] Comment on above: Contact Nurse at [facility] Start: 05-20-2024 End: 08-19-2024 Basic metabolic 2000 panel - Serum or Plasma BASIC METABOLIC PANEL Lab Routine Chronic heart failure with preserved ejection fraction (HCC) Expected: 05/20/2024, Expires: 08/19/2024 [facility] Work Phone: Comment on above: Expected: 05/20/2024, Expires: Start: 05-12-2024 End: 05-12-2024 Patient encounter procedure 05/12/2024 3:30 PM EDT Office Visit Urology [address] [place], [place] [phone] Kobe Rodriguez APRN.POLISHING MACHINE TENDER, DNP [address] [place], [place] [phone] BPH Urology Comment on above: BPH Start: 05-11-2024 End: 08-10-2024 CYTOLOGY NON-DICTATING MACHINE MECHANIC CYTOLOGY NON-DICTATING MACHINE MECHANIC Lab Routine Microscopic hematuria Expected: 05/11/2024, Expires: 08/10/2024 [facility] Work Phone: Comment on above: Expected: 05/11/2024, Expires: Start: 05-08-2024 End: 08-07-2024 Basic metabolic 2000 panel - Serum or Plasma BASIC METABOLIC PANEL Lab Routine Chronic heart failure with preserved ejection fraction (HCC) Expected: 05/08/2024 (Approximate), Expires: 08/07/2024 [facility] Work Phone: Comment on above: Expected: 05/08/2024 (Approximate), Expi res: 08/07/2024 Start: 05-07-2024 End: 05-07-2024 Nursing evaluation of patient and report 05/07/2024 10:00 AM EDT Nurse Visit [facility] [address] [place] [address] 2, Nurse Card Chf remote visit [facility] Comment on above: remote visit Start: 05-06-2024 End: 05-06-2024 Patient encounter procedure 05/06/2024 8:40 AM EDT Office Visit Family Medicine [place] [address] [place] [address] PodJuly haque APRN.POLISHING MACHINE TENDER [address] [place] [address] 3 month follow ujp-htn Family [facility] [place] Comment on above: 3 month follow ujp-htn Start: 05-05-2024 End: 05-05-2024 Patient encounter procedure 05/05/2024 11:40 AM EDT Office Visit Family Medicine [place] [address] [place] [address] July Richards APRN.POLISHING MACHINE TENDER [address] [place] [address] 3 month follow ujp-htn Family [facility] Comment on above: 3 month follow ujp-htn Start: 05-05-2024 End: 05-05-2024 Patient encounter procedure General Surgery Comment on above: consultation for colonoscopy Lung nodule [R91.1] Start: 05-01-2024 Annual PCP Team Chronic Disease Visit Annual PCP Team Chronic Disease Visit [facility] Start: 04-24-2024 End: 04-24-2024 Patient encounter procedure [facility] Comment on above: 2 week PO F/up - CABG Start: 04-22-2024 End: 04-22-2024 Patient encounter procedure 04/22/2024 11:20 AM EST Office Visit Cardiology [address] [place] [address] SOB (shortness of breath) [R06.02] Cardiology Comment on above: SOB (shortness of breath) [R06.02] Start: 04-21-2024 End: 04-21-2024 Patient encounter procedure 04/21/2024 9:00 AM EST Office Visit [facility] 1 [place], [place] [phone] Sole Burrows APRN.POLISHING MACHINE TENDER 1 [facility] [address] [place], [place] [phone] 2 week PO F/up - CABG [facility] Comment on above: 2 week PO F/up - CABG Start: 04-18-2024 End: 04-18-2024 Patient encounter procedure 04/18/2024 2:45 PM EST Office Visit [facility] [address] [place], [place] [phone] Derek Russ, CHEMICAL RESEARCH ENGINEER.POLISHING MACHINE TENDER [address] [place], [place] [phone] 3, Nurse Card Chf Gege Burrows CNP referral [facility] Comment on above: Gege Burrows CNP referral Start: 04-18-2024 End: 04-18-2024 Nursing evaluation of patient and report 04/18/2024 9:00 AM EST Nurse Visit [facility] [address] [place], [place] [phone] 1, Nurse Card Chf f/u RN [facility] Comment on above: f/u RN Start: 04-17-2024 Annual PCP Team Chronic Disease Visit Annual PCP Team Chronic Disease Visit [facility] Start: 04-17-2024 BP Controlled (<130/80) BP Controlled (<130/80) [facility] in Start: 04-15-2024 End: 04-15-2024 Patient encounter procedure 04/15/2024 7:45 AM EST Office Visit [facility] [address] [place], [place] [phone] Derek Russ, CHEMICAL RESEARCH ENGINEER.POLISHING MACHINE TENDER [address] [place] [address] 3, Nurse Card Dax Burrows CNP referral [facility] Comment on above: Gege Burrows CNP referral Start: 04-14-2024 End: 07-14-2024 Basic metabolic 2000 panel - Serum or Plasma BASIC METABOLIC PANEL Lab Routine SOB (shortness of breath) Expected: 04/14/2024, Expires: 07/14/2024 [facility] Comment on above: Expected: 04/14/2024, Expires: Start: 04-14-2024 End: 07-14-2024 CBC panel - Blood by Automated count COMPLETE BLOOD COUNT Lab Routine SOB (shortness of breath) Expected: 04/14/2024, Expires: 07/14/2024 [facility] Comment on above: Expected: 04/14/2024, Expires: Start: 04-07-2024 End: 04-07-2024 Patient encounter procedure 04/07/2024 1:00 PM EST Office Visit [facility] [address] [place] [phone] Sole Burrows APRN.POLISHING MACHINE TENDER 1 [facility] [address] [place] [address] PO 2 Week F/UP for CABG [facility] Comment on above: PO 2 Week F/UP for CABG Start: 04-04-2024 End: 07-04-2024 Basic metabolic 2000 panel - Serum or Plasma BASIC METABOLIC PANEL Lab Routine Hypervolemia, unspecified hypervolemia type Expected: 04/04/2024, Expires: 07/04/2024 [facility] Work Phone: Comment on above: Expected: 04/04/2024, Expires: Start: 04-04-2024 End: 07-04-2024 Natriuretic peptide.B prohormone N-Terminal [Mass/volume] in Serum or Plasma NT PRO BNP Lab Routine Delayed surgical wound healing, subsequent encounter S/P CABG (coronary artery bypass graft) Hypervolemia, unspecified hypervolemia type Expected: 04/04/2024, Expires: 07/04/2024 [facility] Comment on above: Expected: 04/04/2024, Expires: Start: 03-31-2024 Egd transoral biopsy single/multiple EGD BIOPSY SINGLE/MULTIPLE [facility] Start: 03-31-2024 Patient discharge [facility] Start: 03-28-2024 End: 03-28-2024 Patient encounter procedure Cardiology Comment on above: Pulmonary hypertension (HCC) [I27.20] Start: 03-26-2024 End: 06-25-2024 Basic metabolic 2000 panel - Serum or Plasma BASIC METABOLIC PANEL Lab Routine Acute blood loss anemia Expected: 03/26/2024 (Approximate), Expires: 06/25/2024 [facility] Comment on above: Expected: 03/26/2024 (Approximate), Expi res: 06/25/2024 Start: 03-26-2024 End: 06-25-2024 CBC panel - Blood by Automated count COMPLETE BLOOD COUNT Lab Routine Acute blood loss anemia Expected: 03/26/2024 (Approximate), Expires: 06/25/2024 [facility] Work Phone: Comment on above: Expected: 03/26/2024 (Approximate), Expi res: 06/25/2024 Start: 03-24-2024 End: 03-24-2024 Patient encounter procedure 03/24/2024 9:00 AM EST Office Visit [facility] [address] [place] [phone] Caroline Orlando, CHEMICAL RESEARCH ENGINEER.POLISHING MACHINE TENDER [address] [place] [phone] *No CXR* [facility] Comment on above: *No CXR* Start: 02-29-2024 DIABETES SCREEN DIABETES SCREEN [facility] Start: 02-28-2024 End: 02-28-2024 Admission to same day surgery center 02/28/2024 8:00 AM EST - 02/28/2024 3:55 PM EST Surgery [facility] [address] [place] [address] Kodak Iqbal MD [address] [facility] [address] [place] [phone] BYPASS GRAFT ARTERY CORONARY ON-PUMP THREE CORONARY ARTERIAL GRAFTS [facility] Comment on above: BYPASS GRAFT ARTERY CORONARY ON-PUMP THR EE CORONARY ARTERIAL GRAFTS Start: 02-28-2024 End: 02-28-2024 Cabg w/arterial graft three arterial grafts BYPASS GRAFT ARTERY CORONARY ON-PUMP THREE CORONARY ARTERIAL GRAFTS Coronary artery disease involving [place]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[place] heart without angina pectoris 02/28/2024 8:00 AM EST [facility] Start: 02-28-2024 Subsequent hospital visit by physician 02/28/2024 8:00 AM EST Hospital Encounter [facility] [address] [place] [address] Kodak Iqbal MD [address] [place] [address] Coronary artery disease involving [place]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[place] heart without angina pectoris [I25.10] [facility] Comment on above: Coronary artery disease involving [place]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[place] heart without angina pectoris [I25.10] Start: 02-25-2024 End: 02-25-2024 Admission to same day surgery center 02/25/2024 7:15 AM EST - 02/25/2024 3:10 PM EST Surgery [facility] [address] [place] [address] Kodak Iqbal MD [address] [place] [address] BYPASS GRAFT ARTERY CORONARY ON-PUMP THREE CORONARY ARTERIAL GRAFTS [facility] Comment on above: BYPASS GRAFT ARTERY CORONARY ON-PUMP THR EE CORONARY ARTERIAL GRAFTS Start: 02-25-2024 End: 02-25-2024 Cabg w/arterial graft three arterial grafts BYPASS GRAFT ARTERY CORONARY ON-PUMP THREE CORONARY ARTERIAL GRAFTS Coronary artery disease involving [place]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[place] heart without angina pectoris 02/25/2024 7:15 AM EST [place] Start: 02-25-2024 Subsequent hospital visit by physician 02/25/2024 7:15 AM EST Hospital Encounter [facility] [address] [place] [address] Kodak Iqbal MD [address] [place] [address] [place] [address] Coronary artery disease involving [place]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[place] heart without angina pectoris [I25.10] [facility] Comment on above: Coronary artery disease involving [place]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[place] heart without angina pectoris [I25.10] Start: 02-20-2024 Advance Directive Discussion Advance Directive Discussion [facility] Start: 02-20-2024 Medicare Advantage Annual Wellness Visit Medicare Advantage Annual Wellness Visit [facility] Start: 02-11-2024 End: 02-11-2024 Patient encounter procedure 02/11/2024 9:30 AM EST Office Visit Urology [address] [address] Kobe Rodriguez CHEMICAL RESEARCH ENGINEER.POLISHING MACHINE TENDER, DNP [address] [facility] [place] [address] 4-6wk follow up POLISHING MACHINE TENDER, in Urology, BPH: PVR, UA, IPSS Urology Comment on above: 4-6wk follow up POLISHING MACHINE TENDER, in Urology, BPH: PV R, UA, IPSS Start: 02-07-2024 End: 02-07-2024 Patient encounter procedure 02/07/2024 3:00 PM EST Office Visit [facility] [address] [phone] Caroline Orlando APRN.POLISHING MACHINE TENDER 1 [place], [place] [phone] PAT 02/25/24 CABG [facility] Comment on above: PAT 02/25/24 CABG Start: 02-06-2024 End: 05-07-2024 Ferritin [Mass/volume] in Serum or Plasma [facility] Comment on above: Expected: 02/06/2024, Expires: Start: 02-06-2024 End: 05-07-2024 Iron and Iron binding capacity panel - Serum or Plasma [facility] Work Phone: Comment on above: Expected: 02/06/2024, Expires: Start: 02-06-2024 End: 05-07-2024 LIPID PANEL, NONFASTING [facility] Comment on above: Expected: 02/06/2024, Expires: Start: 02-06-2024 End: 05-07-2024 Urinalysis complete panel - Urine [facility] Comment on above: Expected: 02/06/2024, Expires: Start: 02-06-2024 End: 02-06-2024 Patient encounter procedure 02/06/2024 7:20 AM EST Office Visit Family Medicine [place] [address] [place] [address] Lenin Chaudhary MD [address] [facility] [place] [id number] 3 month follow up [facility] [place] Comment on above: 3 month follow up Start: 02-01-2024 End: 02-01-2024 Patient encounter procedure 02/01/2024 9:40 AM EST Office Visit Family Medicine [place] [address] [facility] [place] [id number] Lenin Chaudhary MD [address] [facility] [place] [address] 3 month follow up [facility] [place] Comment on above: 3 month follow up Start: 01-30-2024 Covid-19 Vaccine () Covid-19 Vaccine () [facility] Start: 01-29-2024 End: 01-29-2024 Patient encounter procedure 01/29/2024 10:40 AM EST Appointment Cat Scan [address] [facility], [place] [id number] pre surgery 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]; CHRISTIANO (obstructive sleep apnea) [G47.33]; Preoperative testing [Z01.818] Cat Scan Comment on above: pre surgery Multiple vessel coronary art maxx disease [I25.10]; CHRISTIANO (obstructive sleep apnea) [G47.33]; Preoperative testing [Z01.818] Start: 01-29-2024 End: 01-29-2024 ambulatory [facility] Comment on above: 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]; CHRISTIANO (obstructive sleep apnea) [G47.33]; Preoperative testing [Z01.818] Start: 01-28-2024 End: 01-28-2024 Patient encounter procedure 01/28/2024 12:00 PM EST Appointment [facility] [address] [place] [address] 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]; CHRISTIANO (obstructive sleep apnea) [G47.33]; Preoperative testing [Z01.818] [facility] Comment on above: 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]; CHRISTIANO (obstructive sleep apnea) [G47.33]; Preoperative testing [Z01.818] Start: 01-25-2024 End: 04-25-2024 CBC panel - Blood by Automated count COMPLETE BLOOD COUNT Lab Routine Coronary artery disease involving [place]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[place] heart without angina pectoris Preoperative testing SOB (shortness of breath) Expected: 01/25/2024, Expires: 04/25/2024 [facility] Comment on above: Expected: 01/25/2024, Expires: Start: 01-25-2024 End: 04-25-2024 Comprehensive metabolic 2000 panel - Serum or Plasma COMPREHENSIVE METABOLIC PANEL Lab Routine Coronary artery disease involving [place]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[place] heart without angina pectoris Preoperative testing SOB (shortness of breath) Expected: 01/25/2024, Expires: 04/25/2024 [facility] Comment on above: Expected: 01/25/2024, Expires: Start: 01-25-2024 End: 04-25-2024 Hemoglobin A1c in Blood HEMOGLOBIN A1C Lab Routine Coronary artery disease involving [place]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[place] heart without angina pectoris Preoperative testing SOB (shortness of breath) Expected: 01/25/2024, Expires: 04/25/2024 [facility] Comment on above: Expected: 01/25/2024, Expires: Start: 01-25-2024 End: 04-25-2024 Magnesium [Mass/volume] in Serum or Plasma MAGNESIUM Lab Routine Coronary artery disease involving [place]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[place] heart without angina pectoris Preoperative testing SOB (shortness of breath) Expected: 01/25/2024, Expires: 04/25/2024 [facility] Comment on above: Expected: 01/25/2024, Expires: Start: 01-25-2024 End: 04-25-2024 PT panel - Platelet poor plasma by Coagulation assay PROTHROMBIN TIME Lab Routine Coronary artery disease involving [place]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[place] heart without angina pectoris Preoperative testing SOB (shortness of breath) Expected: 01/25/2024, Expires: 04/25/2024 [facility] Comment on above: Expected: 01/25/2024, Expires: Start: 01-25-2024 End: 04-25-2024 Thyrotropin [Units/volume] in Serum or Plasma THYROID STIMULATING HORMONE Lab Routine Coronary artery disease involving [place]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[place] heart without angina pectoris Preoperative testing SOB (shortness of breath) Hyperlipidemia, unspecified hyperlipidemia type Expected: 01/25/2024, Expires: 04/25/2024 [facility] Comment on above: Expected: 01/25/2024, Expires: Start: 01-25-2024 End: 04-25-2024 TYPE AND SCREEN,30 DAY TYPE AND SCREEN,30 DAY Blood Bank Routine Coronary artery disease involving [place]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[place] heart without angina pectoris Preoperative testing SOB (shortness of breath) Expected: 01/25/2024, Expires: 04/25/2024 [facility] Work Phone: Comment on above: Expected: 01/25/2024, Expires: Start: 01-25-2024 End: 04-25-2024 Urinalysis complete panel - Urine URINALYSIS WITH MICROSCOPIC, REFLEX CULTURE Lab Routine Coronary artery disease involving [place]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[place] heart without angina pectoris Preoperative testing SOB (shortness of breath) Expected: 01/25/2024, Expires: 04/25/2024 [facility] Comment on above: Expected: 01/25/2024, Expires: Start: 01-23-2024 End: 01-23-2024 Admission to same day surgery center [facility] Comment on above: having surgery in jan Start: 01-21-2024 End: 01-21-2024 Patient encounter procedure 01/21/2024 2:00 PM EST Office Visit Family Grayson Sanchez [address] [place] [address] Lenin Chaudhary MD [address] [place] [id number] 3 month follow up Family Grayson [place] Comment on above: 3 month follow up Start: 01-16-2024 Annual PCP Team Chronic Disease Visit Annual PCP Team Chronic Disease Visit [facility] Start: 01-14-2024 End: 01-14-2024 Admission to same day surgery center 01/14/2024 10:30 AM EST - 01/14/2024 12:00 PM EST Surgery [place] BYPRODUCTS OPERATOR [address] [place] [address] Dhara Gill MD [address] [place] [address] (Fax) LEFT HEART CATH INTRAPROCEDURAL INJECT W/ LEFT VENTRICULOGRAPHY IMAGE SUPERVISION/INTERPRETATIO N [facility] [employer] OPERATOR Comment on above: LEFT HEART CATH INTRAPROCEDURAL INJECT W / LEFT VENTRICULOGRAPHY IMAGE SUPERVISION/INTERPRETATION Start: 01-14-2024 End: 01-14-2024 L hrt cath w/njx l ventriculography img s&i LEFT HEART CATH INTRAPROCEDURAL INJECT W/ LEFT VENTRICULOGRAPHY IMAGE SUPERVISION/INTERPRETATIO N Stable angina (HCC) 01/14/2024 10:30 AM EST [facility] [employer]PRODUCTS OPERATOR Start: 01-14-2024 End: 01-14-2024 Patient encounter procedure 01/14/2024 10:30 AM EST Office Visit Urology [address] [place], [place] [id number] Kobe Rodriguez APRN.POLISHING MACHINE TENDER, DNP [address] [place] [address] 4-6wk follow up POLISHING MACHINE TENDER, in Urology, BPH: PVR, UA, IPSS Urology Comment on above: 4-6wk follow up POLISHING MACHINE TENDER, in Urology, BPH: PV R, UA, IPSS Start: 01-14-2024 Subsequent hospital visit by physician 01/14/2024 10:30 AM EST Hospital Encounter [place] [employer]PRODUCTS OPERATOR [address] [place] [address] Dhara Gill MD [address] [place] [address] (Fax) Stable angina (HCC) [I20.89] [facility] [employer]PRODUCTS OPERATOR Comment on above: Stable angina (HCC) [I20.89] Start: 01-07-2024 End: 01-07-2024 Patient encounter procedure 01/07/2024 10:20 AM EST Office Visit Cardiology [address] [place] [id number] Dhara Gill MD [address] [facility] [address] [place] [address] Abnormal Stress Test and Pulmonary Hypertension Cardiology Comment on above: Abnormal Stress Test and Pulmonary Hyper tension Start: 12-21-2023 Subsequent hospital visit by physician 12/21/2023 9:00 AM EDT Hospital Encounter Cardiology Lab [address] [place], [place] [id number] Abnormal electrocardiogram [R94.31] Cardiology Lab Comment on above: Abnormal electrocardiogram [R94.31] Start: 12-21-2023 End: 12-21-2023 Patient encounter procedure Molecular Imaging Comment on above: Epic Order Start: 12-17-2023 End: 12-17-2023 Patient encounter procedure 12/17/2023 3:30 PM EDT Office Visit Urology [address] [place], [place] [address] Kobe Rodriguez APRN.POLISHING MACHINE TENDER, DNP [address] [place], [place] [phone] 4-6wk follow up POLISHING MACHINE TENDER, in Urology, BPH Urology Comment on above: 4-6wk follow up POLISHING MACHINE TENDER, in Urology, BPH Start: 12-13-2023 Subsequent hospital visit by physician 12/13/2023 2:30 PM EDT Hospital Encounter Cardiology Lab [address] [place] [address] Abnormal electrocardiogram [R94.31] Cardiology Lab Comment on above: Abnormal electrocardiogram [R94.31] Start: 12-13-2023 End: 12-13-2023 Patient encounter procedure Molecular Imaging Comment on above: STAT Patient coming at NOON Start: 12-11-2023 End: 12-11-2023 Patient encounter procedure 12/11/2023 10:00 AM EDT Office Visit General Surgery [address] [place], [place] [phone] Melani Curtis APRN.POLISHING MACHINE TENDER [address] [place] [address] consultation for colonoscopy General Surgery Comment on above: consultation for colonoscopy Start: 12-07-2023 End: 03-07-2024 CBC W Auto Differential panel - Blood [facility] Comment on above: Expected: 12/07/2023, Expires: Start: 12-07-2023 End: 03-07-2024 Comprehensive metabolic 2000 panel - Serum or Plasma [facility] Comment on above: Expected: 12/07/2023, Expires: Start: 12-07-2023 End: 03-07-2024 Ferritin [Mass/volume] in Serum or Plasma [facility] Comment on above: Expected: 12/07/2023, Expires: Start: 12-07-2023 End: 03-07-2024 Iron and Iron binding capacity panel - Serum or Plasma [facility] Comment on above: Expected: 12/07/2023, Expires: Start: 12-07-2023 End: 12-07-2023 Patient encounter procedure Family Medicine [facility] Comment on above: Preop clearance for total hip replacemen t on December 17 at [facility] Preop clearance for total hip replacement on Dec [address] Sweeney [facility] Start: 12-05-2023 End: 12-05-2023 Patient encounter procedure General Surgery Comment on above: consultation for colonoscopy Start: 11-29-2023 Annual PCP Team Chronic Disease Visit Annual PCP Team Chronic Disease Visit [facility] Start: 11-24-2023 Colonoscopy COLONOSCOPY [facility] Start: 11-24-2023 COLORECTAL CANCER SCREENING COLORECTAL CANCER SCREENING [facility] Start: 11-24-2023 Screening for malignant neoplasm of colon [facility] Start: 11-05-2023 End: 11-05-2023 Patient encounter procedure 11/05/2023 1:30 PM EDT Office Visit Urology [address] [address] Kobe Rodriguez, LUTHER.POLISHING MACHINE TENDER, DNP [address] [place] [address] Checking how his urine function is doing. Urology Comment on above: Checking how his urine function is doing . Start: 10-23-2023 End: 10-23-2023 Patient encounter procedure 10/23/2023 10:00 AM EDT Office Visit Family Medicine [place] [address] [place], [place] [phone] Lenin Chaudhary MD [address] [place], [place] [phone] 3 month follow-up [facility] Comment on above: 3 month follow-up Start: 10-21-2023 Covid-19 Vaccine () Covid-19 Vaccine () [facility] Start: 10-21-2023 Covid-19 Vaccine () Covid-19 Vaccine () [facility] Start: 10-21-2023 Influenza vaccination [facility] Start: 10-07-2023 ANNUAL PCP TEAM CHRONIC DISEASE VISIT ANNUAL PCP TEAM CHRONIC DISEASE VISIT [facility] Start: 09-27-2023 End: 09-27-2023 Patient encounter procedure 09/27/2023 3:30 PM EDT Office Visit Urology [address] [address] Rahat Laurent MD [address] [place] [address] Checking how his urine function is doing. Urology Comment on above: Checking how his urine function is doing . Start: 09-22-2023 ANNUAL PCP TEAM CHRONIC DISEASE VISIT ANNUAL PCP TEAM CHRONIC DISEASE VISIT [facility] Start: 08-30-2023 End: 08-30-2023 Patient encounter procedure 08/30/2023 2:45 PM EDT Office Visit Urology [address] [address] Rahat Laurent MD [address] [place] [address] Checking how his urine function is doing. Urology Comment on above: Checking how his urine function is doing . Start: 08-17-2023 End: 08-17-2023 Patient encounter procedure 08/17/2023 1:00 PM EDT Office Visit Family Grayson Sanchez [address] [place] [address] PodlogJuly adair APRN.POLISHING MACHINE TENDER [address] [place] [address] 2 week BP check, stopped Amlodipine. See TE 08/02/23. Family Grayson Sanchez Comment on above: 2 week BP check, stopped Amlodipine. See TE 08/02/23. Start: 07-18-2023 End: 10-17-2023 Cobalamin (Vitamin B12) [Mass/volume] in Serum or Plasma VITAMIN B12 Lab Routine Anemia, unspecified type Expected: 07/18/2023, Expires: 10/17/2023 [facility] Comment on above: Expected: 07/18/2023, Expires: Start: 07-18-2023 End: 10-17-2023 Comprehensive metabolic 2000 panel - Serum or Plasma COMPREHENSIVE METABOLIC PANEL Lab Routine SERAFIN (acute kidney injury) (HCC) Expected: 07/18/2023, Expires: 10/17/2023 [facility] Work Phone: Comment on above: Expected: 07/18/2023, Expires: Start: 07-17-2023 End: 07-17-2023 Patient encounter procedure Family Grayson Sanchez Comment on above: 3 month follow up 2 wk follow up 3 mo follow up Start: 07-05-2023 End: 07-05-2023 Patient encounter procedure 07/05/2023 10:00 AM EDT Office Visit Family Grayson Sanchez [address] [place] [address] Lenin Chaudhary MD [address] [place] [address] 2 wk follow up Family Grayson Sanchez Comment on above: 2 wk follow up Start: 06-29-2023 End: 06-29-2023 Patient encounter procedure 06/29/2023 8:30 AM EDT Office Visit Urology [address] [address] Rahat Laurent MD [address] [place] [address] lower urinary tract symptoms; urinary retention Urology Comment on above: lower urinary tract symptoms; urinary re tention Start: 06-22-2023 ANNUAL PCP TEAM CHRONIC DISEASE VISIT ANNUAL PCP TEAM CHRONIC DISEASE VISIT [facility] Start: 06-08-2023 Patient discharge [facility] Start: 06-06-2023 Administration of blood product [facility] Start: 06-06-2023 Referral to occupational therapist [facility] Start: 06-06-2023 Referral to service [facility] Start: 06-05-2023 Application of intermittent pneumatic compression device [facility] Start: 06-05-2023 Blood chemistry [facility] Start: 06-05-2023 Removal of urinary catheter [facility] Start: 06-04-2023 Following clinical pathway protocol [facility] Start: 06-04-2023 Assessment of risk of venous thromboembolism [facility] Start: 06-04-2023 Insertion of catheter into peripheral vein [facility] Start: 06-04-2023 Providing care according to standard [facility] Start: 06-04-2023 Referral to gastroenterology service [facility] Start: 06-04-2023 [facility] Start: 06-04-2023 Verification routine [facility] Start: 06-04-2023 Admission procedure [facility] Start: 06-04-2023 Leukocyte reduced red blood cells [facility] Start: 06-04-2023 [facility] Start: 06-04-2023 Administration of blood product [facility] Start: 05-30-2023 ANNUAL PCP TEAM CHRONIC DISEASE VISIT ANNUAL PCP TEAM CHRONIC DISEASE VISIT [facility] Start: 05-30-2023 BP CONTROLLED (<130/80) BP CONTROLLED (<130/80) [facility] Start: 05-16-2023 Covid-19 Vaccine () Covid-19 Vaccine () [facility] Start: 04-04-2023 ANNUAL PCP TEAM CHRONIC DISEASE VISIT ANNUAL PCP TEAM CHRONIC DISEASE VISIT [facility] Start: 02-23-2023 ANNUAL PCP TEAM CHRONIC DISEASE VISIT ANNUAL PCP TEAM CHRONIC DISEASE VISIT [facility] Start: 02-19-2023 Advance Directive Discussion Advance Directive Discussion [facility] Start: 02-19-2023 Medicare Advantage Annual Wellness Visit Medicare Advantage Annual Wellness Visit [facility] Start: 01-25-2023 ANNUAL PCP TEAM CHRONIC DISEASE VISIT ANNUAL PCP TEAM CHRONIC DISEASE VISIT [facility] Start: 12-14-2022 RSV Vaccine (1 - 1-dose 75+ series) RSV Vaccine (1 - 1-dose 75+ series) [facility] Start: 12-13-2022 ANNUAL PCP TEAM CHRONIC DISEASE VISIT ANNUAL PCP TEAM CHRONIC DISEASE VISIT [facility] Start: 11-29-2022 ANNUAL PCP TEAM CHRONIC DISEASE VISIT ANNUAL PCP TEAM CHRONIC DISEASE VISIT [facility] Start: 11-16-2022 Covid-19 Vaccine ( season) Covid-19 Vaccine ( season) [facility] Start: 10-20-2022 COVID-19 Vaccine ( season) COVID-19 Vaccine ( season) [facility] Start: 10-20-2022 Influenza vaccination [facility] Start: 09-29-2022 Hepatitis B surface antibody level LDL Cholesterol [facility] Start: 09-06-2022 ANNUAL PCP TEAM CHRONIC DISEASE VISIT ANNUAL PCP TEAM CHRONIC DISEASE VISIT [facility] Start: 09-06-2022 BP CONTROLLED (<130/80) BP CONTROLLED (<130/80) [facility] Start: 06-21-2022 End: 08-21-2022 25-hydroxyvitamin D3 [Mass/volume] in Serum or Plasma [facility] Work Phone: Comment on above: Expected: 06/21/2022, Expires: Start: 02-28-2022 ANNUAL PCP TEAM CHRONIC DISEASE VISIT ANNUAL PCP TEAM CHRONIC DISEASE VISIT [facility] Start: 02-19-2022 ADVANCE DIRECTIVE DISCUSSION ADVANCE DIRECTIVE DISCUSSION [facility] Start: 10-20-2021 Influenza vaccination INFLUENZA (#1) [facility] Start: 09-06-2021 End: 11-06-2021 Comprehensive metabolic 2000 panel - Serum or Plasma COMP METABOLIC PANEL Lab Routine Essential hypertension Expected: 09/06/2021, Expires: 11/06/2021 [facility] Work Phone: Comment on above: Expected: 09/06/2021, Expires: 2 Start: 09-06-2021 End: 11-06-2021 Lipid 1996 panel - Serum or Plasma LIPID PANEL BASIC Lab Routine Mixed hyperlipidemia Expected: 09/06/2021, Expires: 11/06/2021 [facility] Work Phone: Comment on above: Expected: 09/06/2021, Expires: 2 Start: 05-10-2021 COVID-19 VACCINE (4 - Booster for Pfizer series) COVID-19 VACCINE (4 - Booster for Pfizer series) [facility] Start: 03-07-2021 COVID-19 VACCINE (4 - Booster for Pfizer series) COVID-19 VACCINE (4 - Booster for Pfizer series) [facility] Start: 02-19-2021 ADVANCE DIRECTIVE DISCUSSION ADVANCE DIRECTIVE DISCUSSION [facility] Start: 12-09-2015 FECAL OCCULT BLOOD FECAL OCCULT BLOOD [facility] Start: 12-09-2015 Screening for malignant neoplasm of colon Fecal Occult Blood [facility] Start: 2007 RSV Immunization aged 60 or older (1 - 1-dose 60+ series) RSV Immunization aged 60 or older (1 - 1-dose 60+ series) [facility] Start: 2007 RSV Vaccine (1 - 1-dose 60+ series) RSV Vaccine (1 - 1-dose 60+ series) [facility] Start: 12-14-1992 [facility] Start: 12-14-[address] COLONOGRAPHY [facility] Start: 12-14-1992 Screening for malignant neoplasm of colon [facility] Start: 12-14-1992 SIGMOIDOSCOPY SIGMOIDOSCOPY [facility] Start: 12-14-1965 BP CONTROLLED (<130/80) [facility]130[facility] Start: 12-14-1965 Diabetes mellitus screening Diabetes Screening [facility] Start: 12-14-1965 Hepatitis C screening Hepatitis C Screening [facility] Start: 1959 Depression Screening Depression Screening [facility] Start: 1947 Lipid panel Lipid Panel [facility] Start: 1947 Screening for malignant neoplasm of colon [facility] identified in Blood by Culture [facility] Work Phone: BLADDER SCAN BLADDER SCAN Pro cedures Routine Benign prostatic hyperplasia with urinary frequency Ordered: 11/05/2023 [facility] Work Phone: Comment on above: Ordered: 11/05/2023 BUN/Creatinine ratio [facility] Calcium [Mass/volume ] in Serum or Plasma [facility] Carbon dioxide, tota l [Moles/volume] in Serum or Plasma [facility] CARDIAC REHAB II OUT PT ([place], [place]) CARDIAC REHAB II OUTPT ([place], [place]) BIC Routine S/P CABG (coronary artery bypass graft) Ordered: 03/24/2024 [facility] Comment on above: Ordered: 03/24/2024 Chloride [Moles/volu me] in Serum or Plasma [facility] Creatinine [Moles/vo lume] in Serum or Plasma [facility] End: 02-20-2025 CT Chest WO contrast CT CHEST WO IVCON Radiology Routine Multiple vessel coronary artery disease CHRISTIANO (obstructive sleep apnea) Preoperative testing 1 Occurrences starting 01/22/2024 until 02/20/2025 [facility] Comment on above: 1 Occurrences starting 01/22/2024 until 02/20/2025 CT Chest WO contrast CT CHEST WO IVCON Radiology Routine Multiple vessel coronary artery disease CHRISTIANO (obstructive sleep apnea) Preoperative testing 01/29/2024 10:22 AM EST [facility] Work Phone: End: 06-04-2025 CT Chest WO contrast CT CHEST WO IVCON Radiology Routine 1 Occurrences starting 05/05/2024 until 06/04/2025 [facility] Work Phone: Comment on above: 1 Occurrences starting 05/05/2024 until 06/04/2025 End: 06-05-2024 CT Head WO contrast CT BRAIN WO IVCON Radiology Routine Bone lesion 1 Occurrences starting 05/07/2023 until 06/05/2024 [facility] Work Phone: Comment on above: 1 Occurrences starting 05/07/2023 until 06/05/2024 CT Kidney WO and W contrast IV CT UROGRAM WO/W IVCON Radiology Routine Microscopic hematuria 05/27/2024 1:53 PM EDT [facility] Work Phone: CYSTO DIAGNOSTIC CYSTO DIAGNOSTI C Procedures Routine Microscopic hematuria Ordered: 05/11/2024 [facility] Comment on above: Ordered: 05/11/2024 ECG COMPLETE ECG COMPLETE ECG Routine Pre-op evaluation Ordered: 12/07/2023 [facility] Work Phone: Comment on above: Ordered: 12/07/2023 End: 12-06-2024 Echocardiography ECHO Cardiology CURLY Abnormal electrocardiogram 1 Occurrences starting 12/07/2023 until 12/06/2024 [facility] Comment on above: 1 Occurrences starting 12/07/2023 until 12/06/2024 End: 04-07-2025 Echocardiography ECHO Cardiology Routine SOB (shortness of breath) 1 Occurrences starting 04/07/2024 until 04/07/2025 [facility] Work Phone: Comment on above: 1 Occurrences starting 04/07/2024 until 04/07/2025 Erythrocyte mean corpuscular volume determination [facility] End: 03-24-2025 EXERCISE STRESS ECG (WITHOUT IMAGING) EXERCISE STRESS ECG (WITHOUT IMAGING) Cardiology Routine S/P CABG (coronary artery bypass graft) 1 Occurrences starting 03/24/2024 until 03/24/2025 [facility] Comment on above: 1 Occurrences starting 03/24/2024 until 03/24/2025 Glucose [Mass/volume ] in Serum or Plasma [facility] End: 05-02-2024 HEARING TEST/AUDIOGRAM HEARING TEST/AUDIOGRAM Audiology Routine Hearing loss of right ear, unspecified hearing loss type 1 Occurrences starting 05/02/2023 until 05/02/2024 [facility] Work Phone: Comment on above: 1 Occurrences starting 05/02/2023 until 05/02/2024 Hematocrit [Volume Fraction] of Blood [facility] Hemoglobin [Mass/vol ume] in Blood [facility] Hemoglobin.gastroint kesha dardenlower [Presence] in Stool by Immunoassay IMMUNOCHEMICAL FECAL OCCULT BLOOD TEST Lab Routine BRBPR (bright red blood per rectum) Ordered: 09/16/2024 [facility] Comment on above: Ordered: 09/16/2024 Leukocytes [#/volume ] in Blood [facility] End: 02-20-2025 LUNG DIFFUSION CAPACITY (DLCO) LUNG DIFFUSION CAPACITY (DLCO) PFT Routine Multiple vessel coronary artery disease CHRISTIANO (obstructive sleep apnea) Preoperative testing 1 Occurrences starting 01/22/2024 until 02/20/2025 [facility] Comment on above: 1 Occurrences starting 01/22/2024 until 02/20/2025 End: 02-20-2025 LUNG VOLUMES LUNG VOLUMES PFT Routine Multiple vessel coronary artery disease CHRISTIANO (obstructive sleep apnea) Preoperative testing 1 Occurrences starting 01/22/2024 until 02/20/2025 [facility] Comment on above: 1 Occurrences starting 01/22/2024 until 02/20/2025 Mean corpuscular hemoglobin concentration determination [facility] Mean corpuscular hemoglobin determination [facility] Measurement of renal function [facility] End: 07-21-2023 Mri brain brain stem w/o contrast material MRI BRAIN [facility] Radiology Routine Cognitive impairment, mild, so stated 1 Occurrences starting 06/21/2022 until 07/21/2023 [facility] Work Phone: Comment on above: 1 Occurrences starting 06/21/2022 until 07/21/2023 Neutrophil count [facility] Neutrophil percent differential count [facility] End: 01-05-2025 NM Heart Perfusion W stress and W radionuclide IV NM CARDIAC PERF STRESS/PHARM Radiology CURLY Abnormal electrocardiogram 1 Occurrences starting 12/07/2023 until 01/05/2025 [facility] Comment on above: 1 Occurrences starting 12/07/2023 until 01/05/2025 OUTSIDE VENDOR CARDI AC OUTPATIENT EXTENDED RHYTHM RECORDING (WITHOUT TELEMETRY) OUTSIDE VENDOR CARDIAC OUTPATIENT EXTENDED RHYTHM RECORDING (WITHOUT TELEMETRY) Holter Routine Postoperative atrial fibrillation (HCC) Ordered: 05/26/2024 [facility] Work Phone: Comment on above: Ordered: 05/26/2024 Patient referral [facility] Work Phone: Platelets [#/volume] in Blood [facility] POST VOID RESIDUAL POST VOID RES IDUAL Procedures Routine Benign prostatic hyperplasia with urinary frequency Benign prostatic hyperplasia with nocturia Ordered: 02/11/2024 [facility] Work Phone: Comment on above: Ordered: 02/11/2024 POST VOID RESIDUAL POST VOID RES IDUAL Procedures Routine Benign prostatic hyperplasia with urinary frequency Benign prostatic hyperplasia with nocturia Ordered: 04/14/2024 [facility] Work Phone: Comment on above: Ordered: 04/14/2024 Potassium [Moles/vol ume] in Serum or Plasma [facility] Red blood cell count [facility] Red cell distributio n width determination [facility] End: 05-05-2025 Screening colonoscopy COLONOSCOPY SCREENING Endoscopy Routine Screen for colon cancer History of colonic polyps 1 Occurrences starting 05/05/2024 until 05/05/2025 [facility] Work Phone: Comment on above: 1 Occurrences starting 05/05/2024 until 05/05/2025 Sodium [Moles/volume ] in Serum or Plasma [facility] End: 02-20-2025 SPIROMETRY BASELINE ONLY SPIROMETRY BASELINE ONLY PFT Routine Multiple vessel coronary artery disease CHRISTIANO (obstructive sleep apnea) Preoperative testing 1 Occurrences starting 01/22/2024 until 02/20/2025 [facility] Work Phone: Comment on above: 1 Occurrences starting 01/22/2024 until 02/20/2025 Tissue Pathology bio psy report [facility] Work Phone: Comment on above: Release Upon Ordering for 1 Occurrences starting 09/01/2024, 1 completed Urea nitrogen [Mass/volume] in Serum or Plasma [facility] Urinalysis complete panel - Urine URINALYSIS, WITH MICROSCOPIC Lab Routine Benign prostatic hyperplasia with urinary frequency Benign prostatic hyperplasia with nocturia 04/14/2024 11:14 AM EST [facility] End: 01-21-2025 US Carotid arteries - bilateral US CAROTID ARTERIES [facility] Vascular Lab Routine Multiple vessel coronary artery disease CHRISTIANO (obstructive sleep apnea) Preoperative testing 1 Occurrences starting 01/22/2024 until 01/21/2025 [facility] Comment on above: 1 Occurrences starting 01/22/2024 until 01/21/2025 End: 04-22-2025 XR Chest PA and Lateral XR CHEST 2V FRONTAL/LAT Radiology Routine S/P CABG (coronary artery bypass graft) 1 Occurrences starting 03/24/2024 until 04/22/2025 [facility] Work Phone: Comment on above: 1 Occurrences starting 03/24/2024 until 04/22/2025 [facility] Immunizations Immunization Date Immunization Notes Care Provider Fa [facility] 11-03-2024 influenza, high dose seasonal, preservative-free Lenin Chaudhary MD Work Phone: [facility] 12-05-2023 influenza, high dose seasonal, preservative-free Lenin Chaudhary MD Work Phone: [facility] 12-05-2023 influenza virus vaccine, unspecified formulation Ekg Wstr Work Phone: [facility] 01-15-2023 COVID-19 vaccine, ag e 12+ yr, 2022- season (PFIZER-BIONTECH) Lenin Chaudhary MD Work Phone: [facility] 11-28-2022 influenza (HD-IIV4) vaccine, age 65+ yr, high dose, quadrivalent, PF (FLUZONE HIGH-DOSE) Lenin Chaudhary MD Work Phone: [facility] 11-28-2022 influenza virus vaccine, unspecified formulation Lenin Chaudhary MD Work Phone: [facility] 09-21-2022 COVID-19 vaccine, ag e 12+ yr, bivalent (PFIZER-BIONTECH) Lenin Chaudhary MD Work Phone: [facility] 11-29-2021 COVID-19 booster vaccine, age 12+ yr, bivalent (PFIZER-BIONTECH) Lenin Chaudhary MD Work Phone: [facility] 11-29-2021 influenza, high-dose , quadrivalent vaccine (FLUZONE HIGH DOSE QUADRIVALENT) Lenin Chaudhary MD Work Phone: [facility] 11-29-2021 influenza virus vaccine, unspecified formulation Lenin Chaudhary MD Work Phone: [facility] 01-10-2021 COVID-19 vaccine, ag e 12+ yr (PFIZER-BIONTECH - PURPLE TOP) Lenin Chaudhary MD Work Phone: [facility] Work Phone: 01-10-2021 influenza, high-dose , quadrivalent vaccine (FLUZONE HIGH DOSE QUADRIVALENT) Lenin Chaudhary MD Work Phone: [facility] Work Phone: 08-19-2020 zoster vaccine recombinant Lenin Chaudhary MD Work Phone: [facility] 07-08-2020 COVID-19 vaccine, ag e 12+ yr (PFIZER-BIONTECH - PURPLE TOP) Lenin Chaudhary MD Work Phone: [facility] Work Phone: 06-17-2020 COVID-19 vaccine, ag e 12+ yr (PFIZER-BIONTECH - PURPLE TOP) Lenin Chaudhary MD Work Phone: [facility] Work Phone: 01-27-2020 zoster vaccine recombinant Lenin Chaudhary MD Work Phone: [facility] Work Phone: 12-01-2019 influenza, injectabl e, quadrivalent, preservative free [facility] 12-01-2019 influenza, seasonal, injectable, preservative free Lenin Chaudhary MD Work Phone: [facility] Work Phone: 11-12-2019 influenza, high-dose , quadrivalent vaccine (FLUZONE HIGH DOSE QUADRIVALENT) Lenin Chaudhary MD Work Phone: [facility] Work Phone: 12-12-2018 influenza, high dose seasonal, preservative-free Lenin Chaudhary MD Work Phone: [facility] 12-10-2017 influenza, high dose seasonal, preservative-free Lenin Chaudhary MD Work Phone: [facility] 12-07-2016 influenza, high dose seasonal, preservative-free Lenin Chaudhary MD Work Phone: [facility] 09-06-2016 tetanus toxoid, redu zachery diphtheria toxoid, and acellular pertussis vaccine, adsorbed Lenin Chaudhary MD Work Phone: [facility] Work Phone: 12-02-2015 influenza, high dose seasonal, preservative-free Lenin Chaudhary MD Work Phone: [facility] 11-30-2014 influenza, high dose seasonal, preservative-free Lenin Chaudhary MD Work Phone: [facility] 05-26-2014 pneumococcal conjuga te vaccine, 13 valent Lenin Chaudhary MD Work Phone: [facility] 12-24-2013 influenza, seasonal, injectable Lenin Chaudhary MD Work Phone: [facility] 02-13-2013 pneumococcal polysaccharide vaccine, 23 valent Lenin Chaudhary MD Work Phone: [facility] 12-03-2012 influenza virus vaccine, unspecified formulation Lenin Chaudhary MD Work Phone: [facility] 03-12-2012 zoster vaccine, live Prosper Chaudhary MD Work Phone: [facility] 02-01-2007 diphtheria and tetan us toxoids, adsorbed for pediatric use Lenin Chaudhary MD Work Phone: [facility] Work Phone: Payers Date Payer Category Payer Private Health Insurance [id number] 2023 Self-pay [id number] 2023 Medicare [id number] 2023 Unknown [id number] 2021 Medicare (Managed Care) [employer] G [employer] [id number] 2021 Private Health Insurance [id number] 2019 Unknown MMO MMO MEDICARE SUPPLEMENT [id number] 2019-Present [phone] [address] [place] [address] Indemnity [id number] 2019 Unknown [id number]. [id number] 2014 Private Health Insurance [id number] 2012 Medicare MEDICARE MEDICAR E A AND B [id number] 2012-Present [phone] [place] [address] Medicare [id number] 2012 Medicare [id number]. [id number] 1947 Unknown [id number] 2..840.1.260889.3.579.2. 627 1947 Unknown [id number] 2.840.1.089536.3.579.2. 651 1947 Unknown [id number] 2.840.1.424959.3.579.2. 627 1947 Unknown [id number] 2.840.1.781008.3.579.2. 627 1947 Unknown [id number] 2.840.1.607559.3.579.2. 627 1947 Unknown [id number] 2.840.1.844208.3.579.2. 627 1947 Unknown [id number] 2.840.1.865872.3.579.2. 627 1947 Unknown [id number] 2.840.1.159141.3.579.2. 627 1947 Unknown [id number] 2.840.1.222000.3.579.2. 627 1947 Unknown [id number] 2.840.1.975955.3.579.2. 627 Unknown [id number] 2.840.1.342100.3.579.2. 462 Unknown [id number] 2.16840.1.136700.3.579.2. 462 Unknown [id number] 2.16.840.1.110211.3.579.2. 462 Unknown [id number] 2.16840.1.064955.3.579.2. 462 Unknown [id number] 2.840.1.600854.3.579.2. 462 Unknown [id number] 2.16840.1.983558.3.579.2. 462 Unknown [id number] 2.840.1.773726.3.579.2. 462 Unknown [id number] 2.840.1.969168.3.579.2. 462 Unknown [id number] 2.840.1.174889.3.579.2. 462 Unknown [id number] 2.840.1.282321.3.579.2. 462 Social History Date Type Detail Facility Start: 02-22-2015 End: 06-25-2024 Tobacco smoking status NHIS Never smoked tobacco [facility] Start: 02-28-2021 End: 04-08-2024 Alcohol intake Current non-drinker of alcohol (finding) [facility] Start: 12-16-2019 History SDOH Alcohol Frequency 3 [facility] Start: 12-16-2019 History SDOH Alcohol Std Drinks 1 [facility] Start: 12-16-2019 History SDOH Social Connections Phone 5 [facility] Start: 12-16-2019 History SDOH Social Connections Living 4 [facility] Start: 12-16-2019 History SDOH Transpo rt Med 2 [facility] Start: 12-16-2019 Education 17 [facility] Start: 1945 Sex Assigned At Male C [facility] Start: 05-31-2020 End: 01-22-2022 Exposure to SARS-CoV-2 (event) Not sure [facility] Start: 02-22-2015 End: 06-25-2024 Tobacco use and exposure Smokeless tobacco non-user [facility] Start: 12-16-2019 End: 12-17-2023 History of Social function [facility] Start: 12-16-2019 End: 12-17-2023 Social connection and isolation panel [facility] Do you belong to any clubs or organizations such as anabaptism groups, unions, fraternal or athletic groups, or school groups? Yes [facility] Are you now , , , , never or living with a partner? [facility] How often to you hav e a drink containing alcohol? 2-4 times a month [facility] How many standard dr inks containing alcohol do you have on a typical day? 1 or 2 [facility] How often do you hav e 6 or more drinks on 1 occasion? Never [facility] Start: 01-21-2012 How hard is it for y ou to pay for the very basics like food, housing, medical care, and heating Not hard at all [facility] Do you feel stress - tense, restless, nervous, or anxious, or unable to sleep at night because your mind is troubled all the time - these days [OSQ] Not at all [facility] (I/We) worried joshua er (my/our) food would run out before (I/we) got money to buy more. Never true [facility] In the past 12 month s, was there a time when you were not able to pay the mortgage or rent on time? No [facility] Start: 06-28-2020 Gender identity Identifies as male gender (finding) [facility] Start: 06-04-2023 End: 06-12-2023 Tobacco smoking status NHIS Unknown if ever smoked [facility] Start: 03-19-2020 None [facility] Start: 03-19-2020 Alone [facility] Start: 03-19-2020 Non-smoker [facility] Tobacco smoking status [facility] Start: 06-13-2023 End: 11-03-2024 Alcohol intake Ex-drinker (finding) [facility] Start: 1945 Sex Assigned At Not on file S [facility] Start: 05-07-2024 End: 05-20-2024 Sex Male (finding) [facility] NEGATED: Highlighted rowStart: NINF History of tobacco use Passive smoker [facility] Medical Equipment Procedure Code Equipment Code Equipment Original Text Equipment Identifier Dates Resolution 360 U ltra Clip 17mm X 235mm [id number] Start: 04-26-2020 Pledget Cardiova scular 3/16x.25in Thk1.65mm Rectangle Ptfe [place] - [id number] Start: 02-28-2024 Pledget Cardiova scular 3/16x.25in Thk1.65mm Rectangle Ptfe [place] - [id number] Start: 02-28-2024 Plate Titanium X 1.8mm Bone 8 Hole Mini Sternotomy Sternal - [id number] Start: 02-28-2024 Screw Drill-Free Maxdrive 2.3mm Titanium 13mm Bone Self Retaining Lock - [id number] Start: 02-28-2024 Goals Date Patient Goal Desired Activity /State Personal health goal Personal health goal Functional Status Date Assessment Result Facility 09-10-2024 Are you deaf, or do you have serious difficulty hearing No 09/10/2024 12:56 PM EDT Arlyn Marrufo LPN No [facility] 09-10-2024 Are you blind, or do you have serious difficulty seeing, even when wearing glasses No 09/10/2024 12:56 PM EDT Arlyn Marrufo LPN No [facility] 09-10-2024 Do you have serious difficulty walking or climbing stairs Yes 09/10/2024 12:56 PM EDT Arlyn Marrufo LPN Yes [facility] 09-10-2024 Do you have difficul ty dressing or bathing No 09/10/2024 12:56 PM EDT Arlyn Marrufo LPN No [facility] 09-10-2024 Because of a physica l, mental, or emotional condition, do you have difficulty doing errands alone such as visiting a physician's office or shopping Yes 09/10/2024 12:56 PM EDT Arlyn Marrufo LPN Yes [facility] 03-10-2024 Are you deaf, or do you have serious difficulty hearing No 03/10/2024 12:34 PM Sole Bell RN No [facility] 03-10-2024 Are you blind, or do you have serious difficulty seeing, even when wearing glasses No 03/10/2024 12:34 PM Sole Bell, KATELYN No [facility] 03-10-2024 Do you have serious difficulty walking or climbing stairs No 03/10/2024 12:34 PM Sole Bell, KATELYN No [facility] 03-10-2024 Do you have difficul ty dressing or bathing No 03/10/2024 12:34 PM Sole Bell, KATELYN No [facility] 03-10-2024 Because of a physica l, mental, or emotional condition, do you have difficulty doing errands alone such as visiting a physician's office or shopping Yes 03/10/2024 12:34 PM Sole Bell RN Yes [facility] 06-08-2023 Functional status Ambulates [facility] Work Phone: Mental Status Date Assessment Result Facility 09-10-2024 Because of a physica l, mental, or emotional condition, do you have serious difficulty concentrating, remembering, or making decisions Yes 09/10/2024 12:56 PM EDT Arlyn Marrufo LPN Yes [facility] 03-31-2024 Cognitive function Voice/Name [facility] Work Phone: 03-10-2024 Because of a physica l, mental, or emotional condition, do you have serious difficulty concentrating, remembering, or making decisions Yes 03/10/2024 12:34 PM Sole Bell RN Yes [facility] 06-08-2023 Cognitive function Patient Oricourtney estrella Person;Place [facility] Work Phone: 06-08-2023 Cognitive function Voice/Name [facility] Work Phone: 06-04-2023 Cognitive function Level Of Cons ciousness Awake;Alert;Appropriate;Fol lows Commands [facility] Work Phone: Clinical Notes 12-03-2012 to 12-11-2024 Telephone Encounter - Gustavo Shetty MA - 11/04/2024 12:05 PM EDTTelephone Encounter - Gustavo Shetty MA - 11/04/2024 12:05 PM EDTPatient Catherine Monory CPhT - 10/02/2024 8:28 AM EDT Note Date & Type Note Facility 12-11-2024 Note [facility] 12-08-2024 Note [facility] 11-27-2024 Note [facility] 11-13-2024 Note [facility] 11-10-2024 Note [facility] 11-04-2024 Telephone encounter Note Patient informed and verbalized understanding. Gustavo Shetty MA [facility] 11-04-2024 Miscellaneous Notes Patient informed and verbalized understanding. Gustavo Shetty MA ----- Message from Lenin Chaudhary MD sent at 11/04/2024 7:01 AM EDT ----- Anemia is much improved and iron levels are high. Iron stores are still on the low end of normal, however, so will have him continue iron supplement as prescribed. ----- Message ----- From: Lab, Background User Sent: 11/03/2024 5:23 PM EDT To: Lenin Chaudhary MD documented in this encounter [facility] 11-04-2024 Telephone encounter Note ----- Message from Lenin Chaudhary MD sent at 11/04/2024 7:01 AM EDT ----- Anemia is much improved and iron levels are high. Iron stores are still on the low end of normal, however, so will have him continue iron supplement as prescribed. ----- Message ----- From: Lab, Background User Sent: 11/03/2024 5:23 PM EDT To: Lenin Chaudhary MD [facility] 11-04-2024 Telephone encounter Note Thank you for the FYI it sounds like they did the correct move give extra Lasix and reeducate on salty foods. [facility] Work Phone: 11-04-2024 Miscellaneous Notes Thank you for the FYI it sounds like they did the correct move give extra Lasix and reeducate on salty foods. Network Navigation SBAR Situation patient currently living in [facility]. Background call received from nurse KATELYN Zuniga. Reported patient has a weight gain of 3.4 pounds overnight. Reported patient did have ham yesterday as well as some salty foods in the evening. Assessment reported lungs are clear, 1+ pitting to left lower extremity. Stated blood pressure today 140/70 -62 (irregular). Reported patient has history of irregular heart rhythm. Patient denies any shortness of breath at this time. Nadia reported that she gave the patient his as needed dose of Lasix of 20 mg and potassium 20 mEq. Recommendation she will continue to monitor patient for any increased weight gain, or signs and symptoms of heart failure. Recommendation for her to remind patient that high sodium foods will cause heart failure symptoms such as weight gain and swelling. Recommended Nadia to reach out to the heart failure clinic for any other questions or concerns or no response to the as needed dose of Lasix. Will forward message to Camila Russ for review and any recommendations. Nurse number option #4 documented in this encounter [facility] 11-04-2024 Telephone encounter Note Network Navigation SBAR Situation patient currently living in [facility]. Background call received from nurse KATELYN Zuniga. Reported patient has a weight gain of 3.4 pounds overnight. Reported patient did have ham yesterday as well as some salty foods in the evening. Assessment reported lungs are clear, 1+ pitting to left lower extremity. Stated blood pressure today 140/70 -62 (irregular). Reported patient has history of irregular heart rhythm. Patient denies any shortness of breath at this time. Nadia reported that she gave the patient his as needed dose of Lasix of 20 mg and potassium 20 mEq. Recommendation she will continue to monitor patient for any increased weight gain, or signs and symptoms of heart failure. Recommendation for her to remind patient that high sodium foods will cause heart failure symptoms such as weight gain and swelling. Recommended Nadia to reach out to the heart failure clinic for any other questions or concerns or no response to the as needed dose of Lasix. Will forward message to Camila Russ for review and any recommendations. Nurse number option #4 [facility] 11-03-2024 Instructions Lenin Chaudhary MD - 11/03/2024 10:00 AM EDT - Continue taking Flomax (tamsulosin) one capsule twice daily for your enlarged prostate. - Limit fluid intake 2-3 hours before bedtime to help reduce nighttime bathroom visits. - Increase your dose of Lipitor to 80 mg daily as prescribed. Recheck labs for cholesterol in 3 months as ordered. - Use Lasix as needed and take your potassium supplement each time you use Lasix. - Continue metoprolol at your current dose for heart function. - Have blood drawn for a complete blood count (CBC) and iron studies to check your hemoglobin and iron levels. - You received your high-dose influenza vaccine today. - Get the COVID-19 vaccine when it becomes available. - Obtain one dose of the RSV vaccine at your pharmacy (covered under Medicare Part D). - Resume your regular exercise routine as tolerated once cardiology clears you. - Follow up with cardiology at your scheduled appointment next month. - Keep your urology appointment with Dr. Chaudhary in December to review prostate treatment options (daily finasteride or surgical/laser therapies). - Discuss potential hip replacement surgery with your cardiology team; if cleared, you may plan for surgery this fall. - See Dr. Otero in geriatrics (referral placed) to monitor your memory and Alzheimer s care--schedule this before you leave today. - Plan to return for a routine primary care checkup in about six months; call sooner if any new concerns arise. documented in this encounter [facility] 11-03-2024 Note [facility] 11-03-2024 History of Presen t illness Narrative Chief Complaint Patient presents with: Follow Up Recording using [employer] software for draft documentation of the visit was discussed with the patient/authorized public relations representative; all questions welcomed and answered. Patient/authorized public relations representative agreed to proceed HPI Homero Mei is a 78 year old male who presents here today for Above Complaints. Accompanied today by his son who is assisting with history due to his alzheimer's dementia. Resided at [facility]. Nocturia: - Homero Mei experiences nocturia 2-3 times per night, unchanged from last year. - Homero attempts to limit fluid intake after dinner with variable success. - Denies taking Lasix at night; taking Flomax BID. - Denies weak stream, straining, dysuria, or hematuria. - History of cystoscopy and post-void residual volume measurements. - Followed by urologist Dr. Chaudhary; next appointment in December. - No known family history of prostate cancer. GI Bleed: - Hospitalized for GI bleed in August; Julias hemoglobin levels are improving. - Taking iron supplements daily. - Denies recent melena or hematochezia. - Not fully recovered; Homero has not yet resumed regular exercise. Hip Pain: - Chronic hip pain managed with daily Tylenol. - Considering hip replacement surgery this fall, pending cardiology clearance. 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 - Lasix and potassium taken PRN. - No recent episodes of chest pain, dyspnea, edema, or palpitations. - Homero's weight is stable; no signs of fluid overload. Alzheimer's Dementia: - Diagnosed in March by Dr. Remington Rodriguez at [facility]. - No significant changes in memory; no recent falls or unsteadiness. - Eating and drinking well; no new fevers, chills, cough, or wheezing. - Oriented to place and person; Homero incorrectly stated the year as 2049. Past medical history, appointments, medications, allergies reviewed. Previous Medical History PAST MEDICAL HISTORY Diagnosis Date Alzheimer's dementia without behavioral disturbance, psychotic disturbance, mood disturbance, or anxiety, unspecified dementia severity, unspecified timing of dementia onset (HCC) Anemia, unspecified type Ascending aorta dilatation borderline Atrial fibrillation (HCC) Benign prostatic hyperplasia with urinary frequency Bilateral carpal tunnel syndrome s/p release on right Bilateral inguinal hernia s/p mesh BPH (benign prostatic hyperplasia) Urology-[facility], Dr. Pacheco CAD (coronary artery disease) 12/21/2023 abnormal stress test. 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 Iqbal on 02/28/24 Scalp psoriasis Tubular adenoma of colon Unspecified essential hypertension Upper GI bleed 05/2023 Vitamin D insufficiency Previous Surgical History PAST SURGICAL HISTORY Procedure Laterality Date BACK SURGERY HX CABG (3) VEIN GRAFTS & ARTERIAL GRAFT(S) 02/28/2024 CABG x 3 (Scales-LAD, SVG- PDA, SVG- OM1) with Dr. Iqbal on 02/28/24 COLON SURGERY HX COLONOSCOPY 09/01/2024 COLONOSCOPY FLX DX W/COLLJ SPEC WHEN PFRMD , 11/19, 01/24, 01/29 COLONOSCOPY FLX DX W/COLLJ SPEC WHEN PFRMD 03/22/2015 Colonoscopy-repeat 5 years COLONOSCOPY FLX DX W/COLLJ SPEC WHEN PFRMD 11/23/2020 COLONOSCOPY GEN ANES 04/12/2020 Repeat in 1 year COLONOSCOPY GEN ANES 04/26/2020 3 polyps removed. 40 mm, 5 mm, 5mm. repeat in 6 months. DISKECTOMY, LUMBAR, SINGLE SP 2006 HERNIA REPAIR HX mesh INGUINAL HERNIA REPAIR HX 07/19/2010 bilateral inguinal hernia repair with mesh NEUROPLASTY &/TRANSPOS MEDIAN NRV CARPAL TUNNE Right 03/26/2015 Carpal tunnel decomp right PAST SURGICAL HISTORY OF Left 04/10/2019 arthroscopic knee for torn meniscus RHINP PRIM LAT&ALAR CRTLGS&/ELVTN NASAL TI 2009 Rhinoplasty SKIN BIOPSY HX Family History FAMILY HISTORY Problem Relation Age of Onset Heart Mother CHF Hypertension Mother Stroke Father Hypertension Father Patient Allergies ALLERGIES No Known Allergies Current Medications Current Outpatient Medications on File Prior to Visit Medication Sig cholecalciferol (VITAMIN D3) 1,000 unit tab tablet Take 1 tablet by mouth once daily. Taking 25 MCG daily cyanocobalamin (VITAMIN B-12) 1,000 mcg tab Take 1 tablet by mouth once daily. furosemide (LASIX) 20 mg tablet Take 1 tablet by mouth once daily as needed (weight gain 2-3 lbs in 24 hours, new leg swelling, or shortness of breath). brimonidine (ALPHAGAN) 0.2 % ophthalmic solution Use 1 drop in both eyes two times a day. potassium chloride ER (KLOR-CON) 20 mEq tablet Take 20 mEq by mouth two times a day. metoprolol tartrate, short acting, (LOPRESSOR) 25 mg tablet Take 0.5 tablets by mouth two times a day. Hold for HR <60 and/or SBP <100 atorvastatin (LIPITOR) 40 mg tablet Take 1 tablet by mouth once daily. donepezil (ARICEPT) 10 mg tablet Take 1 tablet by mouth daily with breakfast. memantine (NAMENDA) 5 mg tablet Take 1 tablet by mouth once daily. ferrous sulfate 325 mg (65 mg iron) tablet Take 325 mg by mouth once daily. senna-docusate (SENNA WITH DOCUSATE SODIUM) 8.6-50 mg per tablet Take 1 tablet by mouth once daily. (Scheduled medication, with additional plain docusate prn) aspirin, enteric coated (ASPIRIN, ENTERIC COATED) 81 mg EC tablet Take 1 tablet by mouth once daily. lactobacillus combination no.4 (PROBIOTIC) 3 billion cell cap Take 1 capsule by mouth once daily. docusate sodium (COLACE) 100 mg capsule Take 1 capsule by mouth two times a day as needed for constipation. melatonin 3 mg capsules Take 1 capsule by mouth at bedtime as needed for insomnia. tamsulosin (FLOMAX) 0.4 mg Take 1 capsule by mouth two times a day. ascorbic acid, vitamin C, (VITAMIN C) 500 mg tablet Take 1 tablet by mouth once daily. folic acid 1 mg tablet Take 1 tablet by mouth once daily. magnesium oxide (MAG-OX) 400 mg (241.3 mg magnesium) tablet Take 1 tablet by mouth once daily. polyethylene glycol 3350 17 gram packet Take 1 Packet by mouth once daily. Dissolve dose in 4 - 8 ounces of liquid and take as directed. fluticasone (FLONASE) 50 mcg/actuation nasal spray Use 2 Sprays in each nostril once daily as needed. vit C/E/Zn/coppr/lutein/zeaxan (PRESERVISION AREDS-2 ORAL) Take 1 capsule by mouth two times a day. latanoprost (XALATAN) 0.005 % ophthalmic solution Use 1 Drop in both eyes daily at bedtime. pantoprazole DR (PROTONIX) 40 mg tablet Take 40 mg by mouth once daily. No current facility-administered medications on file prior to visit. Social History SOCIAL HISTORY[1] Review of Symptoms REVIEW OF SYSTEMS GENERAL: No weight loss, malaise or fevers RESPIRATORY: Negative for cough, hemoptysis, wheezing, COPD, dyspnea or shortness of breath CARDIOVASCULAR: Negative for chest pain, leg swelling, hypertension, CHF or palpitations GI: No nausea, vomiting, or diarrhea : See HPI SKIN: Negative for lesions, rash, and itching EXAM: BP 124/70 Pulse 61 Ht 180.3 cm (5' 11) Wt 88.3 kg (194 lb 9.6 oz) SpO2 99% BMI 27.14 kg/m General Appearance: Well appearing, AOx2 (person, place), in no acute distress, well-hydrated, well nourished.. Skin: Skin color, texture, turgor normal, no suspicious rashes or lesions. Lungs: Lungs clear to auscultation. No wheezing, rhonchi, rales.. Heart: RRR without murmur, gallop, or rubs. No ectopy. Abdomen: Normal abdominal exam, Abdomen soft, non-tender. Bowel sounds normal. No masses, organomegaly. Extremities: No deformities, edema, skin discoloration, clubbing or cyanosis. Good capillary refill. Health Maintenance List Advance Directive Discussion due on 02/20/2024 Medicare Advantage Annual Wellness Visit Never done RSV Vaccine(1 - 1-dose 75+ series) due on 11/03/2025 LDL Cholesterol due on 08/25/2025 Annual PCP Team Chronic Disease Visit due on 11/03/2025 Colorectal Cancer Screening due on 09/01/2026 DTaP,Tdap,Td Vaccine(3 - Td or Tdap) due on 09/06/2026 Diabetes Screening due on 09/25/2027 Influenza Vaccine Completed Hepatitis C Screening Completed Shingrix Vaccine Completed Pneumococcal Vaccine: 50+ Completed Data reviewed Latest Ref Rng 09/09/2024 09/10/2024 09/24/2024 WBC 3.70 - 11.00 k/uL 5.41 4.38 9.37 WBC 5.24 WBC 6.46 RBC 4.20 - 6.00 m/uL 2.48 (L) 2.64 (L) 3.11 (L) RBC 2.54 (L) RBC 2.55 (L) Hemoglobin 13.0 - 17.0 g/dL 7.3 (L) 7.9 (L) 9.3 (L) Hemoglobin 8.3 (L) Hemoglobin 7.7 (L) Hemoglobin 7.6 (L) Hematocrit 39.0 - 51.0 % 22.3 (L) 23.4 (L) 28.8 (L) Hematocrit 23.0 (L) Hematocrit 22.6 (L) MCV 80.0 - 100.0 fL 89.9 88.6 92.6 MCV 90.6 MCV 88.6 MCH 26.0 - 34.0 pg 29.4 29.9 29.9 MCH 30.3 MCH 29.8 MCHC 30.5 - 36.0 g/dL 32.7 33.8 32.3 MCHC 33.5 MCHC 33.6 RDW-CV 11.5 - 15.0 % 14.9 14.9 15.0 RDW-CV 15.0 RDW-CV 14.9 Platelet Count 150 - 400 k/uL 152 167 237 Platelet Count 148 (L) Platelet Count 149 (L) MPV 9.0 - 12.7 fL 10.7 10.8 11.9 MPV 11.4 MPV 10.8 Neut% % 53.2 60.5 77.7 Abs Neut (ANC) 1.45 - 7.50 k/uL 2.79 2.65 7.27 Lymph% % 33.4 26.9 13.2 Abs Lymph 1.00 - 4.00 k/uL 1.75 1.18 1.24 Buchanan% % 8.6 7.5 6.7 Abs Buchanan <0.87 k/uL 0.45 0.33 0.63 Eosin% % 4.0 3.9 1.8 Abs Eosin <0.46 k/uL 0.21 0.17 0.17 Baso% % 0.6 0.7 0.3 Abs Baso <0.11 k/uL 0.03 0.03 0.03 Immature Gran % % 0.2 0.5 0.3 IMMATURE GRANS (ABS) <0.10 k/uL <0.03 <0.03 0.03 NRBC /100 WBC 0.0 0.0 0.0 Absolute nRBC <0.01 k/uL <0.01 <0.01 <0.01 Absolute nRBC <0.01 Absolute nRBC <0.01 DTYPE Auto Auto Auto Protein, Total 6.3 - 8.0 g/dL 5.5 (L) 6.4 Albumin 3.9 - 4.9 g/dL 3.5 (L) 3.7 (L) 3.9 Calcium 8.5 - 10.2 mg/dL 8.4 (L) 8.5 9.2 Bilirubin, Total 0.2 - 1.3 mg/dL 0.3 0.3 Alkaline Phosphatase 38 - 113 U/L 69 83 AST 14 - 40 U/L 6 (L) 6 (L) ALT 10 - 54 U/L 11 13 Glucose 74 - 99 mg/dL 101 (H) 106 (H) 88 BUN 9 - 24 mg/dL 29 (H) 19 15 Creatinine 0.73 - 1.22 mg/dL 1.07 1.05 1.00 Sodium 136 - 144 mmol/L 142 142 142 Potassium 3.7 - 5.1 mmol/L 4.5 3.6 (L) 4.5 Chloride 98 - 107 mmol/L 111 (H) 110 (H) 106 CO2 22 - 30 mmol/L 22 21 (L) 23 Anion Gap 8 - 15 mmol/L 9 11 13 eGFR >=60 mL/min/1.73m 72 74 78 Phosphorus 2.7 - 4.8 mg/dL 3.4 3.6 Magnesium 1.7 - 2.3 mg/dL 2.5 (H) Occult Blood, Stool Negative Negative Legend: (L) Low (H) High Latest Ref Rng 08/25/2024 Cholesterol, Total <200 mg/dL 168 Triglyceride <150 mg/dL 76 HDL Cholesterol >39 mg/dL 43 LDL Cholesterol, Calculated <100 mg/dL 111 (H) Non HDL Cholesterol <130 mg/dL 125 VLDL Cholesterol <30 mg/dL 13 TC:HDL Ratio <5.10 3.91 LDL:HDL Ratio <2.54 2.58 (H) Fasting Time hrs 12 Legend: (H) High 1. Essential (primary) hypertension (I10) - Well controlled; continue metoprolol 12.5 mg daily. 2. Mixed hyperlipidemia (E78.2) - LDL above goal of <70 on recent labs. - Increase Lipitor to 80 mg daily. - Recheck labs in 3 months. 3. Alzheimer's disease (HCC) (G30.9) - Progressive disease; current medications provide temporary symptomatic benefit but do not halt progression. - Referred to geriatrics (Dr. Otero) for ongoing monitoring and management. 4. Coronary artery disease involving [place]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[place] heart without angina pectoris (I25.10) 5. Chronic diastolic congestive heart failure (HCC) (I50.32) - Stable; no new chest pain, dyspnea, edema, palpitations, or weight gain. - Continue metoprolol 12.5 mg daily. - Continue Lasix as needed; take potassium supplement with Lasix as needed. - Follow-up with cardiology next month. - Cleared to resume exercise as tolerated. 6. Benign prostatic hyperplasia with nocturia (N40.1) - Nocturia unchanged (2-3 times/night); no dysuria, hematuria, or straining. - Recent urinalysis negative for infection. - Continue Flomax as prescribed. - Advised to limit fluid intake 2-3 hours before bedtime. - Discussed finasteride as an option to shrink prostate (requires several months to work and PSA monitoring); discussed surgical options (TURP or laser therapy) with associated risks (pain, bleeding, infection, erectile dysfunction). - Follow-up with urology (Dr. Pacheco) in December. 7. Normocytic anemia due to blood loss (D50.0) 8. Gastrointestinal hemorrhage, unspecified gastrointestinal hemorrhage type (K92.2) - Recent GI bleed with hospitalization; hemoglobin improving on recent labs. - No new melena or hematochezia; dark stools likely due to iron supplementation. - Continue iron supplementation. - Order CBC, iron studies, and ferritin to monitor recovery. 9. Encounter for immunization (Z23) - Administer high-dose influenza vaccine today. - Recommend COVID-19 vaccine when available. - Recommend RSV vaccine this fall (to be obtained at pharmacy). 10. History of fall (Z91.81) - No new falls since last visit. I spent a total of 46 minutes on the date of the service which included preparing to see the patient, [id number] patient care, completing clinical documentation, obtaining and/or reviewing separately obtained history, performing a medically appropriate examination, counseling and educating the patient/family/caregiver, and ordering medications, tests, or procedures. Lenin Chaudhary MD [1] Social History Tobacco Use Smoking status: Never Passive exposure: Never Smokeless tobacco: Never Vaping Use Vaping status: Never Used Substance Use Topics Alcohol use: Not Currently Drug use: Never documented in this encounter [facility] 10-31-2024 Note [facility] 10-31-2024 History of Presen t illness Narrative Patient is identified through a medication adherence outreach initiative based on pharmacy claims data from: [facility] Medication Adherence Category: Statins Second Attempt Medication(s) Atorvastatin 40 mg Last Filled 10/14 for 14 DS, Next fill due 10/30 Medication Status per portal/PT PAL Reconcile Dispense: Filled on time - On or before next fill date Date Filled (MM/DD): 10/28 Day Supply: 14 Medication Status per Profile Review: No issues per profile review Patient identified by name and Outreach to patient: No outreach required, patient filled medication Evi Kamara CPhT [facility] Team documented in this encounter [facility] 10-28-2024 Note [facility] 10-28-2024 History of Presen t illness Narrative Patient is identified through a medication adherence outreach initiative based on pharmacy claims data from: [facility] Medication Adherence Category: Statins First Review Attribution Status: Correct attribution Medication(s) Atorvastatin 40 mg Last Filled 10/14/24 for 14 DS, Next fill due 10/30/24 Medication Status per portal/Epic Reconcile Dispense: Not filled Medication Status per Profile Review: No issues per profile review Patient/provider appropriate for outreach? Yes Patient identified by name and Outreach to patient: Sent/Responded to [place] What was primary intervention? Remind patient to vegetable picker or fill Evi Kamara CPhT [facility] Team documented in this encounter [facility] 10-27-2024 History of Presen t illness Narrative FOLLOW UP VISIT - ENDOSCOPY Homero Mei 1945 [id number] REFERRING PHYSICIAN: SELF Homero Mei is a patient I am following for screening colonoscopy-hx of polyps. Dr. Vazquez performed lower endoscopy on 09/01/24. The patient was found to have mpression: - Three small (4-6 mm) polyps in the transverse colon and in the cecum, removed with a hot snare. Resected and retrieved. - One 18 mm polyp at the hepatic flexure, removed piecemeal using a hot snare. Resected and retrieved. - Diverticulosis in the left colon. - The examination was otherwise normal on direct and retroflexion views. Pathology demonstrated: FINAL DIAGNOSIS A. Cecum, polypectomy: - Fragments of tubular adenoma. B. Hepatic flexure, polypectomy: - Fragments of tubular adenoma. C. Transverse colon, polypectomy: - Fragments of tubular adenoma. The patient notes no complaints since the procedure. -denies any BRBPR or melena. -no abd pain VITALS: There were no vitals taken for this visit. General: patient is alert, cooperative, pleasant and in no acute distress On examination, the abdomen is benign. Assessment ASSESSMENT/PLAN: 1. Tubular adenoma of colon - ICD9: 211.3, ICD10: D12.6 The operative findings and pathology report were reviewed with the patient, and the patient has had the opportunity to ask questions and have questions answered. If the patient notes any problems or changes in bowel function, the patient should contact me immediately. Otherwise I recommend follow up endoscopy in 2 years. HM updated. Discussed treatment plan and patient voices understanding. Patient's questions answered appropriately. Medications and potential side effects were discussed and patient voices understanding. Return to the office as scheduled or as needed for worsening/no improvement. Melani Curtis APRN.POLISHING MACHINE TENDER documented in this encounter [facility] 10-27-2024 Note [facility] 10-17-2024 Telephone encounter Note Patient's son Indy calling and asking Dr. Vazquez's office to contact him to clarify if patient needs to follow up with General Surgery and to discuss surgical pathology results from 09/01/24 and if pt needs any further testing, labs, procedures, etc. Roopa Montiel RN [facility] 10-17-2024 Miscellaneous Notes Patient's son Indy calling and asking Dr. Vazquez's office to contact him to clarify if patient needs to follow up with General Surgery and to discuss surgical pathology results from 09/01/24 and if pt needs any further testing, labs, procedures, etc. Roopa Montiel RN documented in this encounter [facility] 10-17-2024 Telephone encounter Note Called back to [facility] and spoke with Shon. Relayed message and she verbalized understanding. Gustavo Shetty MA [facility] 10-17-2024 Miscellaneous Notes Called back to [facility] and spoke with Shon. Relayed message and she verbalized understanding. Gustavo Shetty MA Reviewed. Recheck vitals in the morning. If BP >100/60, resume metoprolol. Rufina from [facility] calling patient blood pressure at 9 am today was 94/64 pulse 76, patient Metoprolol 25 mg dose was held this am. Patient is not symptomatic. documented in this encounter [facility] 10-17-2024 Telephone encounter Note Reviewed. Recheck vitals in the morning. If BP >100/60, resume metoprolol. [facility] 10-17-2024 Telephone encounter Note Rufina from [facility] calling patient blood pressure at 9 am today was 94/64 pulse 76, patient Metoprolol 25 mg dose was held this am. Patient is not symptomatic. [facility] 10-17-2024 Telephone encounter Note The patient has been identified by name and date of : Yes Caregiver verified no other encounters exist for this prescription request: Yes Caregiver confirmed with patient/requestor that no other refills are due, in the near future, with this provider at this time: Yes The last office visit in the department: 09/16/2024 Does the patient have a future office visit with this provider/department: Yes 11/03/2024 Requested Prescriptions Pending Prescriptions Disp Refills cholecalciferol (VITAMIN D3) 1,000 unit tab tablet Sig: Take by mouth once daily. Taking 25 MCG daily Alyssa Valentin LPN October 17, 2024 10:16 AM [facility] 10-17-2024 Miscellaneous Notes The patient has been identified by name and date of : Yes Caregiver verified no other encounters exist for this prescription request: Yes Caregiver confirmed with patient/requestor that no other refills are due, in the near future, with this provider at this time: Yes The last office visit in the department: 09/16/2024 Does the patient have a future office visit with this provider/department: Yes 11/03/2024 Requested Prescriptions Pending Prescriptions Disp Refills cholecalciferol (VITAMIN D3) 1,000 unit tab tablet Sig: Take by mouth once daily. Taking 25 MCG daily Alyssa Valentin LPN October 17, 2024 10:16 AM documented in this encounter [facility] 10-15-2024 Telephone encounter Note The patient has been identified by name and date of : Yes Caregiver verified no other encounters exist for this prescription request: Yes Caregiver confirmed with patient/requestor that no other refills are due, in the near future, with this provider at this time: Yes The last office visit in the department: 09/16/2024 Does the patient have a future office visit with this provider/department: Yes 11/03/2024 Requested Prescriptions Pending Prescriptions Disp Refills cyanocobalamin (VITAMIN B-12) 1,000 mcg tab 30 tablet 2 Sig: Take 1 tablet by mouth once daily. Alyssa Valentin LPN October 15, 2024 3:32 PM [facility] 10-15-2024 Miscellaneous Notes The patient has been identified by name and date of : Yes Caregiver verified no other encounters exist for this prescription request: Yes Caregiver confirmed with patient/requestor that no other refills are due, in the near future, with this provider at this time: Yes The last office visit in the department: 09/16/2024 Does the patient have a future office visit with this provider/department: Yes 11/03/2024 Requested Prescriptions Pending Prescriptions Disp Refills cyanocobalamin (VITAMIN B-12) 1,000 mcg tab 30 tablet 2 Sig: Take 1 tablet by mouth once daily. Alyssa Valentin LPN October 15, 2024 3:32 PM documented in this encounter [facility] 10-03-2024 Telephone encounter Note Spoke to Rena ZEPEDA, Potassium order was for extra dose to be given with PRN Lasix. She is going to fax over patient's current med list. Signed physician order formed faxed back to [facility] for matching PRN KCl order. [facility] 10-03-2024 Miscellaneous Notes Spoke to Rena ZEPEDA, Potassium order was for extra dose to be given with PRN Lasix. She is going to fax over patient's current med list. Signed physician order formed faxed back to [facility] for matching PRN KCl order. Covering for Nickie Ahumada NP Information was faxed over from patient's assisted living place [facility] that is not clear on the purpose. It seems as if they want potassium orders changed? Unclear why last blood work was 09/24 potassium is 4.5 within normal range. There is a message from CHF RN to continue current medications. Can you please call [facility] and ask them to fax over patient's med list. [phone] #4 Also ask if they are aware of what clarification is needed with his potassium and if there is a facility doctor that has already addressed this. Thank you Derek Russ APRN.POLISHING MACHINE TENDER documented in this encounter [facility] 10-03-2024 Telephone encounter Note Covering for Nickie Ahumada NP Information was faxed over from patient's assisted living place [facility] that is not clear on the purpose. It seems as if they want potassium orders changed? Unclear why last blood work was 09/24 potassium is 4.5 within normal range. There is a message from CHF RN to continue current medications. Can you please call [facility] and ask them to fax over patient's med list. [phone] #4 Also ask if they are aware of what clarification is needed with his potassium and if there is a facility doctor that has already addressed this. Thank you Derek Russ APRN.POLISHING MACHINE TENDER [facility] Work Phone: 10-02-2024 Note [facility] 10-02-2024 History of Presen t illness Narrative Patient is identified through a medication adherence outreach initiative based on pharmacy claims data from: [email or web address] Medication Adherence Category: Statins First Review Attribution Status: Correctly attributed, Pt in hospital/SNF/rehab/LTC Medication(s) Atorvastatin 40 mg 1 tab daily Last Filled 09/16/24 for 14 DS, Next fill due 10/02/24 Medication Status per portal/Epic Reconcile Dispense: Filled on time - On or before next fill date Date Filled (MM/DD): 09/30 Day Supply: 14 Medication Status per Profile Review: No issues per profile review Patient/provider appropriate for outreach? No Reason patient/provider not appropriate for outreach:Patient filled on time / no adherence concerns to be addressed RAMSEY Marino CPhT [facility] Team documented in this encounter [facility] 09-30-2024 Telephone encounter Note Spoke with Indy Griffith and notified him of results and recommendations below from Provider. He verbalized understanding. Bianca San MA [facility] 09-30-2024 Miscellaneous Notes Spoke with Indy Griffith and notified him of results and recommendations below from Provider. He verbalized understanding. Bianca San MA Call to Indy Griffith. LM on VM to return call to office and ask to speak with Triage Nurse regarding Father's results. Bianca San MA Pt active on [employer]- message sent. Will leave open until pt reads Amelia Velazquez MA Please let patient know his fecal occult test is negative. Repeat in 1 year. documented in this encounter [facility] 09-26-2024 Telephone encounter Note Call to Indy Griffith. LM on VM to return call to office and ask to speak with Triage Nurse regarding Father's results. Bianca San MA [facility] 09-25-2024 Telephone encounter Note Pt active on [employer]- message sent. Will leave open until pt reads Amelia Velazquez MA [facility] 09-25-2024 Telephone encounter Note Please let patient know his fecal occult test is negative. Repeat in 1 year. [facility] Work Phone: 09-25-2024 Note [facility] 09-22-2024 Telephone encounter Note Kole from [facility] called and notified of provider instructions below. Kole voices understanding. Tawana Hopkins RN [facility] 09-22-2024 Miscellaneous Notes Kole from [facility] called and notified of provider instructions below. Kole voices understanding. Tawana Hopkins RN Continue monitoring and medications as recommended by Dr. Chaudhary at his last office appointment. July Richards APRN.TADEO Nadia Jamison from [facility] ([facility]) calls and reports patient's blood pressure from this weekend: 09/20/2024 AM- BP 88/58 P 64; Metoprolol was not given due to blood pressure. 09/20/2024 PM- BP 126/70 P 69; Metoprolol was Given 09/21/2024 AM- BP 92/54 09/21/2024 PM- BP 140/88 Pulse was less than 60, metoprolol was not given due to pulse being below 60. 09/23/2023 AM- BP 92/56; Patient had a 4.8 weight gain since yesterday. Patient was given PRN lasix/potassium. Patient has no Edema; Patient's lung sounds are clear. Patient is getting labs done on Sunday. Please review and advise, Tawana Hopkins, RN documented in this encounter [facility] 09-22-2024 History of Presen t illness Narrative Patient is identified through a medication adherence outreach initiative based on pharmacy claims data from: [email or web address] Medication Adherence Category: Statins First Review Attribution Status: Correctly attributed, Pt in hospital/SNF/rehab/LTC Medication(s) Atorvastatin 40 mg Medication Status per portal/PT PAL Reconcile Dispense: Filled on time - On or before next fill date Date Filled (MM/DD): 09/16, due 09/18 Day Supply: 14 Medication Status per Profile Review: No issues per profile review Patient/provider appropriate for outreach? No Reason patient/provider not appropriate for outreach:Patient filled on time / no adherence concerns to be addressed Montez Jacobs [facility] Pharm[facility] Team documented in this encounter [facility] 09-22-2024 Note [facility] 09-22-2024 Telephone encounter Note Continue monitoring and medications as recommended by Dr. Chaudhayr at his last office appointment. July Richards APRN.CNP [facility] 09-22-2024 Telephone encounter Note Nadia Nurse from [facility] ([facility]) calls and reports patient's blood pressure from this weekend: 09/20/2024 AM- BP 88/58 P 64; Metoprolol was not given due to blood pressure. 09/20/2024 PM- BP 126/70 P 69; Metoprolol was Given 09/21/2024 AM- BP 92/54 09/21/2024 PM- BP 140/88 Pulse was less than 60, metoprolol was not given due to pulse being below 60. 09/23/2023 AM- BP 92/56; Patient had a 4.8 weight gain since yesterday. Patient was given PRN lasix/potassium. Patient has no Edema; Patient's lung sounds are clear. Patient is getting labs done on Sunday. Please review and advise, Tawana Hopkins RN [facility] 09-19-2024 History of Presen t illness Narrative Transitional Care Management (TCM) Follow-Up Note PCP Update / Actionable Items N/A - No specialty updates needed Patient Source: In-Network Discharge Follow-up outreach: TCM enrolled patient Outreach Summary: TCM FU call day 9 Reached Son, Indy. Reports pt Feeling ok. However, Ever since bleed pt a little irritable and has some changes in mental status which was previously controlled with medications. Some concerns with low iron. HIDE HOUSE SUPERVISOR at facility-discussed iron infusions, but during FU with PCP he nixed that idea and wanted to give it some time Pt due for FU labs and will re-evaluate. Indy stated another son of the pts was assisting with transportation but will be moving. May need to combine some future appts. May need assistance by Pt Pasquale and/or SW team in near future. Denies any further needs or concerns. Contact: Contact made with patient: Yes Spoke to: Patient Validation: Validated the person spoken to is actively involved in the patient's care. The patient was identified by Name and Date of . I'd like to get an update on how you're doing since our last phone call. Is now a good time to talk? Yes Symptoms: Are you feeling about the same, better or worse since leaving the hospital? Better Weekly Outreach: 2nd Outreach Medications: Do you have any questions about taking your medications, including which medications you should be on, or do you need refills on your medications? No Patient Questions / Concerns: Do you have any questions related to your discharge? No Appointment / TCM Follow-Up: Have you had a follow-up visit with your Primary Care Provider or Specialist since you were discharged? Yes Do you need any assistance with scheduling or changing your follow-up appointments? Patient already has an appointment scheduled SDOH: Has Food and Housing been addressed in [employer] in the past 3 months? Yes EDUCATION--: Patient and family educated on issues/questions related to reason for admission, transition of care topics, and follow-up needed upon discharge. Rebecca Atkinson RN September 19, 2024 2:35 PM documented in this encounter [facility] 09-19-2024 Note [facility] 09-18-2024 Note [facility] 09-18-2024 History of Presen t illness Narrative Value based Operations Care Management Heart Failure Guideline Directed Medical Therapy (GDMT) Program Provider Action / FYI: Chart Review Patient Source: TCM Guideline Directed Medical Therapy (GDMT) Program Last HF admission: 02/28/24 (CAD-CABG) GDMT Score: NA Last Echocardiogram: 04/22/24 Ejection Fraction: 61 Basic Metabolic Panel (BMP): 05/09/24 Estimated Glomerular Filtration Rate (eGFR): 55 N-terminal pro B-type natriuretic peptide (NT proBNP): 08/25/24- 689 Heart Failure (HF) Diagnosis: Yes 04/08/24 Heart Failure Status: HFpEF - HF diagnosis, EF >=40%, non-dialysis Action Taken: NA- No GDMT score documented in this encounter [facility] 09-18-2024 Instructions Nickie Ahumada APRN.TADEO - 09/18/2024 1:30 PM EDT Thank you for visiting the Heart Failure Clinic today. Per Roberta Ahumada CNP : Blood work in 1 week to further evaluate potassium level Decrease KCL to PRN, to be taken with Lasix Please weigh daily and record. Read your food labels and watch for hidden sodium. Keep your sodium intake between 7977-9348 mg daily. 500-650 mg per meal. Continue to eat small, frequent meals. Try to include a form of protein with every meal. Keep your fluid intake at 48-64 ounces /day. Increase your activity as tolerated. Call the [facility] ([phone]) for AN APPOINTMENT (NO WALK-IN VISITS) if you have changes in symptoms or increase in weight of 3 lbs in one day or 5 lbs in a week. Krishna Almeida RN documented in this encounter [facility] 09-18-2024 Note [facility] 09-18-2024 History of Presen t illness Narrative Patient presents to the [facility] accompanied by his son for a 3 month follow-up visit. Ambulating on room air without signs of SOB or fatigue with exertion. Medication updates noted in MAR: Yes Adherence with medications: Yes Weight at home: 186 lbs Weight in [facility]: 191.2 lbs / 37 Previous [facility] visit: 200 lbs / 39.5 on 04/15/2024 Dietary Adherence: Reinforcement provided. Patient further evaluated by ED. Recommendations received and noted in patient visit. Follow-up in 6 months or as needed. Krishna Almeida RN PRIMARY CARE PHYSICIAN: Lenin Chaudhary [address] [place] [address] Chief Complaint Patient presents with: CHF Follow Up History of Present Illness: Mr. Mei is a 78 year old male who is known to Dr Gill Patient has a significant medical hx of CAD s/p CABG X 3 (Scales-LAD, SVG- PDA, SVG- OM1) 02/2024, mild-moderate dementia, HTN, HLD, CHRISTIANO Ejection fraction: 61 5% 04/23/2024 64 5% 12/13/2023 Left Heart Cath: 01/14/2024 Impression:Severe multivessel coronary artery disease with right coronary dominant system. Normal LVEDP Recommended Treatment: Medical Therapy and CABG. Weight: Current 191 lbs Weight Weight 09/18/2024 191 lb 3.2 oz 09/16/2024 188 lb 12.8 oz 09/08/2024 187 lb 2.7 oz 09/01/2024 195 lb 08/29/2024 190 lb 9.6 oz 08/26/2024 195 lb 08/04/2024 195 lb 3.2 oz 06/25/2024 197 lb 05/26/2024 192 lb 05/21/2024 186 lb 6.4 oz UMM Summary: Per Derek Powell 04/15/2024 Patient states he has lost approximately 20 pounds since 04/07. Patient states he feels much better legs are much less swollen. His bilateral lower legs are still engorged and hard with swelling some fluid retention remaining in his abdomen very light crackles bilateral lower lungs and slight JVD remaining. Patient states he still continues to have some fatigue and at times lightheadedness when he goes to stand up but is very brief in nature With medication review patient is compliant with current medication list. We did discuss spironolactone and SGLT2 inhibitors as options out there to help with fluid volume overload however I feel at this time Lasix has thus far worked we will continue with this at this time for preserved ejection fraction heart failure. Hospital Admission: 09/08/24 - 09/10/24 per discharge summary Presented to the emergency department with complaints of bright red blood per rectum. Of note patient had a colonoscopy with Dr. Andino on 09/01 where polyps were removed He was having hypotension, Lasix was held. Lasix was restarted on an as-needed basis for edema or weight gain. TODAY: Patient is seen as a established patient Patient is accompanied by son, both are very pleasant. Patient is down to 3 pound since last office visit. Patient states he is feeling well. He does have occasional bouts of lightheadedness/dizziness. He experiences these when he changes position. It sounds like orthostasis. Have encouraged patient to change positions slowly and to wear compression hose throughout the day remove at night. Patient has trace bilateral peripheral edema. Negative for abdominal distention and JVD. Lungs are clear. Patient states that overall he is feeling well Pt denies chest pain, edema, SOB , palpitations, orthopnea, cough, fever, near syncope or syncope, nausea, vomiting, diaphoresis, or falls Reviewed with patient and adjusted as needed : PMH, PSH, Fam hx, Social hx, Allergies. Medications: Current Outpatient Medications Medication Sig Dispense Refill furosemide (LASIX) 20 mg tablet Take 1 tablet by mouth once daily as needed (weight gain 2-3 lbs in 24 hours, new leg swelling, or shortness of breath). 30 tablet 2 brimonidine (ALPHAGAN) 0.2 % ophthalmic solution Use 1 drop in both eyes two times a day. potassium chloride ER (KLOR-CON) 20 mEq tablet Take 20 mEq by mouth two times a day. metoprolol tartrate, short acting, (LOPRESSOR) 25 mg tablet Take 0.5 tablets by mouth two times a day. Hold for HR <60 and/or SBP <100 90 tablet 1 atorvastatin (LIPITOR) 40 mg tablet Take 1 tablet by mouth once daily. 90 tablet 1 donepezil (ARICEPT) 10 mg tablet Take 1 tablet by mouth daily with breakfast. 90 tablet 1 cyanocobalamin (VITAMIN B-12) 1,000 mcg tab Take 1 tablet by mouth once daily. 30 tablet 2 memantine (NAMENDA) 5 mg tablet Take 1 tablet by mouth once daily. 90 tablet 1 ferrous sulfate 325 mg (65 mg iron) tablet Take 325 mg by mouth once daily. senna-docusate (SENNA WITH DOCUSATE SODIUM) 8.6-50 mg per tablet Take 1 tablet by mouth once daily. (Scheduled medication, with additional plain docusate prn) aspirin, enteric coated (ASPIRIN, ENTERIC COATED) 81 mg EC tablet Take 1 tablet by mouth once daily. 360 tablet 0 lactobacillus combination no.4 (PROBIOTIC) 3 billion cell cap Take 1 capsule by mouth once daily. 30 capsule 0 docusate sodium (COLACE) 100 mg capsule Take 1 capsule by mouth two times a day as needed for constipation. 90 capsule 1 melatonin 3 mg capsules Take 1 capsule by mouth at bedtime as needed for insomnia. 30 capsule 2 tamsulosin (FLOMAX) 0.4 mg Take 1 capsule by mouth two times a day. ascorbic acid, vitamin C, (VITAMIN C) 500 mg tablet Take 1 tablet by mouth once daily. folic acid 1 mg tablet Take 1 tablet by mouth once daily. polyethylene glycol 3350 17 gram packet Take 1 Packet by mouth once daily. Dissolve dose in 4 - 8 ounces of liquid and take as directed. fluticasone (FLONASE) 50 mcg/actuation nasal spray Use 2 Sprays in each nostril once daily as needed. cholecalciferol (VITAMIN D3) 1,000 unit tab tablet Take by mouth once daily. Taking 25 MCG daily vit C/E/Zn/coppr/lutein/zeaxan (PRESERVISION AREDS-2 ORAL) Take 1 capsule by mouth two times a day. latanoprost (XALATAN) 0.005 % ophthalmic solution Use 1 Drop in both eyes daily at bedtime. pantoprazole DR (PROTONIX) 40 mg tablet Take 40 mg by mouth once daily. magnesium oxide (MAG-OX) 400 mg (241.3 mg magnesium) tablet Take 1 tablet by mouth once daily. No current facility-administered medications for this visit. Review of Systems Constitutional: Negative for fatigue and fever. HENT: Negative for trouble swallowing. Respiratory: Negative for cough, chest tightness and shortness of breath. Cardiovascular: Negative for chest pain, palpitations and leg swelling. Gastrointestinal: Negative for abdominal distention. Genitourinary: Negative for decreased urine volume and difficulty urinating. Musculoskeletal: Negative. Negative for gait problem. Skin: Negative. Allergic/Immunologic: Negative. Neurological: Positive for dizziness. Negative for syncope and light-headedness. Hematological: Negative. Psychiatric/Behavioral: Negative for agitation. The patient is not nervous/anxious and is not hyperactive. Physical Examination: Vitals:BP 134/72 Pulse 64 Wt 191 lb 3.2 oz (86.7kg) SpO2 99[RA]% Physical Exam Constitutional: General: He is not in acute distress. Appearance: Normal appearance. He is not ill-appearing. HENT: Head: Normocephalic. Right Ear: Hearing normal. Left Ear: Hearing normal. Nose: Nose normal. Mouth/Throat: Lips: [place]. Mouth: Mucous membranes are moist. Eyes: General: Lids are normal. Vision grossly intact. Neck: Vascular: No carotid bruit, hepatojugular reflux or JVD. Trachea: Trachea normal. Cardiovascular: Rate and Rhythm: Normal rate and regular rhythm. Pulses: Normal pulses. Heart sounds: Normal heart sounds. Pulmonary: Effort: Pulmonary effort is normal. No respiratory distress. Breath sounds: Normal breath sounds. Chest: Chest wall: No tenderness. Abdominal: General: Bowel sounds are normal. There is no distension. Tenderness: There is no abdominal tenderness. Musculoskeletal: General: No swelling. Right lower leg: No edema. Left lower leg: No edema. Skin: General: Skin is warm and dry. Capillary Refill: Capillary refill takes less than 2 seconds. Neurological: Mental Status: He is alert and oriented to person, place, and time. Psychiatric: Mood and Affect: Mood normal. Behavior: Behavior normal. Judgment: Judgment normal. Prior Cardiac Testing: Echocardiogram: 04/23/2024 CONCLUSIONS: - Exam indication: s/p CABG - The left ventricle is normal in size. Left ventricular systolic function is normal. EF = 61 5% (2D biplane) Indeterminate left ventricular diastolic function. - The right ventricle is normal in size. Right ventricular systolic function is normal. - The left atrial cavity is severely dilated. - The right atrial cavity is mildly dilated. - There are no significant valvular abnormalities. - The visualized aorta is borderline dilated with a maximal dimension of 4.0 cm. - The patient has not had a prior CC echocardiographic exam for comparison. Echocardiogram 12/13/2023 - Exam indication: Abnormal ECG - The left ventricle is normal in size. Left ventricular systolic function is normal. EF = 64 5% (2D biplane) Normal left ventricular diastolic function. - The right ventricle is dilated. Right ventricular systolic function is normal. - The right atrial cavity is dilated. - There are no significant valvular abnormalities. - The visualized aorta is borderline dilated with a maximal dimension of 3.9 cm. - There is mild (1+) tricuspid regurgitation. - Estimated right ventricular systolic pressure is 42 mmHg consistent with mild pulmonary hypertension. Estimated right atrial pressure is 15 mmHg based on IVC assessment. - The patient has not had a prior CC echocardiographic exam for comparison. Left Heart Cath: 01/14/2024 + + DIAGNOSTIC FINDINGS + + Coronary Anatomy: Right Dominant Injection Site(s): Coronary Artery LMT: The LMT has mild diffuse disease. LAD: The proximal LAD is narrowed 80 % - severe diffuse disease. Additional Comment: Large-caliber vessel. The proximal to mid vessel has severe diffuse disease up to 80% luminal narrowing in multiple areas. LCX: The 1st obtuse marginal circumflex is narrowed 90 % - focal disease. Additional Comment: Large-caliber nondominant vessel. There is a large first obtuse marginal branch which has a focal proximal 90% stenosis. RAMUS: Ramus Status: Not Applicable. RCA: The proximal RCA is narrowed 90 % - focal disease. Additional Comment: Large-caliber dominant vessel. There is an eccentric 90% stenosis in the proximal vessel. The mid and distal vessel has mild diffuse disease. + + IMPRESSION/PLAN + + Severe multivessel coronary artery disease with right coronary dominant system. Normal LVEDP Recommended Treatment: Medical Therapy and CABG. Plan: Consultation with cardiothoracic surgery for consideration of coronary bypass grafting Recent Labs: Creatinine Date Value Ref Range Status 09/10/2024 1.05 0.73 - 1.22 mg/dL Final 09/09/2024 1.07 0.73 - 1.22 mg/dL Final 09/08/2024 1.08 0.73 - 1.22 mg/dL Final 08/25/2024 0.95 0.73 - 1.22 mg/dL Final Comment: Corrected result: Previously reported as 0.92 mg/dL on 08/25/2024 at 9:34 AM EDT. Potassium Date Value Ref Range Status 09/10/2024 3.6 (L) 3.7 - 5.1 mmol/L Final 09/09/2024 4.5 3.7 - 5.1 mmol/L Final 09/08/2024 4.0 3.7 - 5.1 mmol/L Final Assessment & Plan: ASSESSMENT/PLAN: 1. Chronic heart failure with preserved ejection fraction (HCC) - ICD9: 428.9, ICD10: I50.32 - BASIC METABOLIC PANEL NYHA: Class I: No limitations of physical activity Continue Medications: BB: Metoprolol tartrate 12.5 mg twice daily MORE/ ARB/ ARNI: No, HFpEF and lower blood pressures at home MRA:Discussed possibly adding if continues to have fluid volume overload issues. SGLT2i:Discussed possibly adding if continues to have fluid volume overload issues. Diuretic: Lasix 20mg as needed Decrease KCl 20 mEq as needed, to take with lasix, formerly 20meq BID BMP in 1 week for further evaluation of K level Hydralazine: Not at this time Isosorbide: Not at this time Educated/discussed with patient: Sodium(2000g) and water restriction (64oz) per day, to be evenly divided throughout the day, and how this affects their heart failure. Heart failure symptoms and physiology GDMT/medication regimen, what the medications are used for and why it is important to take as directed Follow-up Planning: Continue to follow with the heart failure clinic: 6 months No follow-ups on file. Medical Decision Making: Problems: Low: Stable chronic illness Data: Unique test result(s) reviewed: 3+ Unique test(s) ordered: 1 Risk: Moderate: Drug management Medical Decision Making Level: 4 - Moderate The above note was partially created using a dictation recognition software. A reasonable attempt has been made to correct any errors. I have confirmed and edited as necessary the [facility] and information obtained by others. Reviewed with patient to call with any routine questions arise, however patient developed increasing symptoms or symptoms became worse in severity made to call 911 and presented to the closest emergency department from urgent treatment. Nickie Ahumada APRN.POLISHING MACHINE TENDER documented in this encounter [facility] 09-18-2024 Note [facility] K[facility] 09-16-2024 Instructions Lenin Chaudhary MD - 09/16/2024 10:49 AM EDT - Stop taking Eliquis and continue your baby aspirin as before. - Continue metoprolol (half tablet) twice daily for your heart health. - Hold your Lasix for the next few days. After your heart failure clinic visit, only restart Lasix if you develop new leg swelling or gain more than 2-3 pounds in one day or over 5 pounds total. - Take your iron supplement once daily with your morning medications. If you become constipated, use Miralax or a stool softener as needed. - Aim to drink about 60 ounces of fluids each day and continue eating three balanced meals daily. - Repeat blood work in about one week to check your hemoglobin and iron levels. - Use the stool test kit provided to collect a sample at home and return it as instructed to check for any blood in your stool. - Have your caregivers check your blood pressure and weight daily. Call us if your blood pressure is below 100/60 mmHg or above 160/100 mmHg. - Watch for increased fatigue, shortness of breath, lightheadedness, dizziness, bright red or black stools, blood in urine, or coughing up blood. If any of these occur, contact us right away or seek medical care. - Attend your heart failure clinic appointment on September 18. Have your blood pressure and weight checked there and discuss diuretic (Lasix) management. - Ask your registration representative at that visit if you are cleared to proceed with hip surgery; if they clear you, we will recheck blood work and kidney function before scheduling. - Schedule and keep your routine primary care follow-up in October. - Take the prescription for a permanent handicap placard to your local [facility] to obtain your parking permit. - If you experience rib pain, apply ice, rest, and use [id number] pain relievers as needed. documented in this encounter [facility] 09-16-2024 Telephone encounter Note Nadia from [facility] called in. She reports son received a message form Dr. Gill to stop Eliquis. Routed 09/11/[address] Gill to [phone]. Josette Jensen RN [facility] 09-16-2024 Miscellaneous Notes Nadia from [facility] called in. She reports son received a message form Dr. Gill to stop Eliquis. Routed 09/11/[address] Gill to [phone]. Josette Jensen RN documented in this encounter [facility] 09-16-2024 Note [facility] 09-16-2024 History of Presen t illness Narrative Chief Complaint Patient presents with: ER F/U: [facility]. Missed chair when trying to sit and fell backwards and hit his head. Recording using [employer] software for draft documentation of the visit was discussed with the patient/authorized public relations representative; all questions welcomed and answered. Patient/authorized public relations representative agreed to proceed HPI Homero Mei is a 78 year old male who presents here today for Hospital Discharge Follow up.. GI Bleed: - Hospitalized from September 08 to September 10 for hematochezia and hypotension. - Hematochezia began on September 08; described as dark red blood. - Recent colonoscopy on September 01 with polypectomy. - Eliquis was held during hospitalization; bleeding resolved, and Eliquis was resumed upon discharge. - Discharge hemoglobin was 7.9 g/dL. - Currently taking iron supplements either daily or TID; experiencing constipation with daily dosage. He was supposed to be taking iron supplement daily, but son states that the shelter had him on it TID. Unsure who made this change as it was listed as daily dosage on his discharge from [facility]. Prior to GI bleed his hemoglobin and iron levels had normalized. - No further hematochezia since discharge. - Denies melena, hematuria, hemoptysis, or abdominal pain. - Dr. Gill spoke left voicemail for patient requesting he stop the Eliquis. Has been taking up to today. Will place order to discontinue as I agree with recent GI bleed and fall he is high risk to be on anticoagulation. Fall: - Fell on September 11 while attempting to sit in a chair, hitting his back. - Denies head trauma or LOC. - CT head and cervical spine negative for acute injury. - X-ray showed possible non-displaced left 8th rib fracture; no tenderness reported. - Denies rib pain, chest pain, or dyspnea. - No recurrent falls. Hypotension: - Reports lightheadedness, especially when transitioning from sitting to standing. - Blood pressure as low as 70/40 mmHg on September 11. - Current medications include metoprolol 1/2 tablet BID and Lasix daily. - No recent nausea, emesis, or diarrhea. - Drinking approximately 60 oz of water daily. Dementia: - Resides in a shelter. - Exhibiting increased confusion and irritability, particularly at night. - Similar symptoms noted during a previous gastric bleed in 2023. - No recent fevers or chills. PATIENT NAME: Homero Mei ADMISSION DATE: 09/08/2024 DISCHARGE DATE: 09/10/2024 HOSPITAL COURSE: Homero Mei is a 78-year-old male with a past medical history of hyperlipidemia, dermatitis, IBS, hypertension, degenerative disc disease, CHRISTIANO, iron deficiency anemia, Alzheimer's dementia, BPH, CAD, history of CHF, history of A-fib presented to the emergency department with complaints of bright red blood per rectum. Of note patient had a colonoscopy with Dr. Andino on 09/01 where polyps were removed. Patient has been taking his Eliquis. He was monitored with no further bleeding and stable for discharge. He may resume eliquis on Sunday. Past medical history, appointments, medications, allergies reviewed. Previous Medical History PAST MEDICAL HISTORY Diagnosis Date Alzheimer's dementia without behavioral disturbance, psychotic disturbance, mood disturbance, or anxiety, unspecified dementia severity, unspecified timing of dementia onset (HCC) Ascending aorta dilatation borderline Atrial fibrillation (HCC) Benign prostatic hyperplasia with urinary frequency Bilateral carpal tunnel syndrome s/p release on right Bilateral inguinal hernia s/p mesh BPH (benign prostatic hyperplasia) CAD (coronary artery disease) 12/21/2023 abnormal stress test. moderate ischemia in RCA Current use of correction anticoagulation DDD (degenerative disc disease), lumbar resolved after discectomy Depression Deviated septum s/p septoplasty Glaucoma Hyperlipidemia Insomnia Iron deficiency anemia Irritable bowel syndrome 08/1997 improved Lipoma of neck left posterior neck CHRISTIANO (obstructive sleep apnea) [address] 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 Iqbal on 02/28/24 Scalp psoriasis Unspecified essential hypertension Upper GI bleed 05/2023 Vitamin D insufficiency Previous Surgical History PAST SURGICAL HISTORY Procedure Laterality Date BACK SURGERY HX CABG (3) VEIN GRAFTS & ARTERIAL GRAFT(S) 02/28/2024 CABG x 3 (Scales-LAD, SVG- PDA, SVG- OM1) with Dr. Iqbal on 02/28/24 COLON SURGERY HX COLONOSCOPY FLX DX W/COLLJ SPEC WHEN PFRMD , 11/19, 01/24, 01/29 COLONOSCOPY FLX DX W/COLLJ SPEC WHEN PFRMD 03/22/2015 Colonoscopy-repeat 5 years COLONOSCOPY FLX DX W/COLLJ SPEC WHEN PFRMD 11/23/2020 COLONOSCOPY GEN ANES 04/12/2020 Repeat in 1 year COLONOSCOPY GEN ANES 04/26/2020 3 polyps removed. 40 mm, 5 mm, 5mm. repeat in 6 months. DISKECTOMY, LUMBAR, SINGLE SP 2005 HERNIA REPAIR HX mesh INGUINAL HERNIA REPAIR HX 07/19/2010 bilateral inguinal hernia repair with mesh NEUROPLASTY &/TRANSPOS MEDIAN NRV CARPAL TUNNE Right 03/26/2015 Carpal tunnel decomp right PAST SURGICAL HISTORY OF Left 04/10/2019 arthroscopic knee for torn meniscus RHINP PRIM LAT&ALAR CRTLGS&/ELVTN NASAL TI 2009 Rhinoplasty SKIN BIOPSY HX Family History FAMILY HISTORY Problem Relation Age of Onset Heart Mother CHF Hypertension Mother Stroke Father Hypertension Father Patient Allergies ALLERGIES No Known Allergies Current Medications Current Outpatient Medications on File Prior to Visit Medication Sig brimonidine (ALPHAGAN) 0.2 % ophthalmic solution Use 1 drop in both eyes two times a day. potassium chloride ER (KLOR-CON) 20 mEq tablet Take 20 mEq by mouth two times a day. ELIQUIS 5 mg tab(s) Take 1 tablet by mouth two times a day. Patient should start on September 12, 2024. furosemide (LASIX) 20 mg tablet Take 1 tablet by mouth once daily. metoprolol tartrate, short acting, (LOPRESSOR) 25 mg tablet Take 0.5 tablets by mouth two times a day. Hold for HR <60 and/or SBP <100 atorvastatin (LIPITOR) 40 mg tablet Take 1 tablet by mouth once daily. donepezil (ARICEPT) 10 mg tablet Take 1 tablet by mouth daily with breakfast. cyanocobalamin (VITAMIN B-12) 1,000 mcg tab Take 1 tablet by mouth once daily. memantine (NAMENDA) 5 mg tablet Take 1 tablet by mouth once daily. ferrous sulfate 325 mg (65 mg iron) tablet Take 325 mg by mouth three times a day. senna-docusate (SENNA WITH DOCUSATE SODIUM) 8.6-50 mg per tablet Take 1 tablet by mouth once daily. (Scheduled medication, with additional plain docusate prn) aspirin, enteric coated (ASPIRIN, ENTERIC COATED) 81 mg EC tablet Take 1 tablet by mouth once daily. lactobacillus combination no.4 (PROBIOTIC) 3 billion cell cap Take 1 capsule by mouth once daily. (Patient taking differently: Take 1 capsule by mouth once daily. Only when on antibiotics) docusate sodium (COLACE) 100 mg capsule Take 1 capsule by mouth two times a day as needed for constipation. melatonin 3 mg capsules Take 1 capsule by mouth at bedtime as needed for insomnia. tamsulosin (FLOMAX) 0.4 mg Take 1 capsule by mouth two times a day. ascorbic acid, vitamin C, (VITAMIN C) 500 mg tablet Take 1 tablet by mouth once daily. folic acid 1 mg tablet Take 1 tablet by mouth once daily. magnesium oxide (MAG-OX) 400 mg (241.3 mg magnesium) tablet Take 1 tablet by mouth once daily. polyethylene glycol 3350 17 gram packet Take 1 Packet by mouth once daily. Dissolve dose in 4 - 8 ounces of liquid and take as directed. fluticasone (FLONASE) 50 mcg/actuation nasal spray Use 2 Sprays in each nostril once daily as needed. cholecalciferol (VITAMIN D3) 1,000 unit tab tablet Take by mouth once daily. Taking 25 MCG daily vit C/E/Zn/coppr/lutein/zeaxan (PRESERVISION AREDS-2 ORAL) Take 1 capsule by mouth two times a day. latanoprost (XALATAN) 0.005 % ophthalmic solution Use 1 Drop in both eyes daily at bedtime. pantoprazole DR (PROTONIX) 40 mg tablet Take 40 mg by mouth once daily. No current facility-administered medications on file prior to visit. Social History Social History Tobacco Use Smoking status: Never Passive exposure: Never Smokeless tobacco: Never Vaping Use Vaping status: Never Used Substance Use Topics Alcohol use: Not Currently Drug use: Never Review of Symptoms REVIEW OF SYSTEMS GENERAL: No weight loss, malaise or fevers RESPIRATORY: Negative for cough, hemoptysis, wheezing, COPD, dyspnea or shortness of breath CARDIOVASCULAR: Negative for chest pain, leg swelling, hypertension, CHF or palpitations GI: No nausea, vomiting, or diarrhea SKIN: Negative for lesions, rash, and itching EXAM: BP 94/60 Pulse 67 Ht 185.4 cm (6' 1) Wt 85.6 kg (188 lb 12.8 oz) SpO2 98% BMI 24.91 kg/m General Appearance: Well appearing, alert, in no acute distress, well-hydrated, well nourished.. Skin: Skin color, texture, turgor normal, no suspicious rashes or lesions. Head: Normocephalic, no masses, lesions, tenderness or abnormalities. Lungs: Lungs clear to auscultation. No wheezing, rhonchi, rales.. Heart: RRR without murmur, gallop, or rubs. No ectopy. Abdomen: Normal abdominal exam, Abdomen soft, non-tender. Bowel sounds normal. No masses, organomegaly. Extremities: No deformities, edema, skin discoloration, clubbing or cyanosis. Good capillary refill. Musculoskeletal: No TTP over left lateral ribs. No bruising, swelling, deformity or crepitus. Health Maintenance List RSV Vaccine(1 - 1-dose 75+ series) Never done Advance Directive Discussion due on 02/20/2024 Medicare Advantage Annual Wellness Visit Never done Influenza Vaccine(1) due on 10/20/2024 LDL Cholesterol due on 08/25/2025 Annual PCP Team Chronic Disease Visit due on 09/16/2025 DTaP,Tdap,Td Vaccine(3 - Td or Tdap) due on 09/06/2026 Diabetes Screening due on 09/10/2027 Hepatitis C Screening Completed Shingrix Vaccine Completed Pneumococcal Vaccine: 50+ Completed Colorectal Cancer Screening Discontinued Data reviewed Latest Ref Rng 09/08/2024 09/09/2024 09/10/2024 WBC 3.70 - 11.00 k/uL 6.70 5.41 4.38 WBC 5.24 WBC 6.46 RBC 4.20 - 6.00 m/uL 2.79 (L) 2.48 (L) 2.64 (L) RBC 2.54 (L) RBC 2.55 (L) Hemoglobin 13.0 - 17.0 g/dL 8.4 (L) 7.3 (L) 7.9 (L) Hemoglobin 8.3 (L) Hemoglobin 7.7 (L) Hemoglobin 7.6 (L) Hematocrit 39.0 - 51.0 % 24.9 (L) 22.3 (L) 23.4 (L) Hematocrit 23.0 (L) Hematocrit 22.6 (L) MCV 80.0 - 100.0 fL 89.2 89.9 88.6 MCV 90.6 MCV 88.6 MCH 26.0 - 34.0 pg 30.1 29.4 29.9 MCH 30.3 MCH 29.8 MCHC 30.5 - 36.0 g/dL 33.7 32.7 33.8 MCHC 33.5 MCHC 33.6 RDW-CV 11.5 - 15.0 % 14.9 14.9 14.9 RDW-CV 15.0 RDW-CV 14.9 Platelet Count 150 - 400 k/uL 176 152 167 Platelet Count 148 (L) Platelet Count 149 (L) MPV 9.0 - 12.7 fL 10.8 10.7 10.8 MPV 11.4 MPV 10.8 Neut% % 53.2 60.5 Abs Neut (ANC) 1.45 - 7.50 k/uL 2.79 2.65 Lymph% % 33.4 26.9 Abs Lymph 1.00 - 4.00 k/uL 1.75 1.18 Buchanan% % 8.6 7.5 Abs Buchanan <0.87 k/uL 0.45 0.33 Eosin% % 4.0 3.9 Abs Eosin <0.46 k/uL 0.21 0.17 Baso% % 0.6 0.7 Abs Baso <0.11 k/uL 0.03 0.03 Immature Gran % % 0.2 0.5 IMMATURE GRANS (ABS) <0.10 k/uL <0.03 <0.03 NRBC /100 WBC 0.0 0.0 Absolute nRBC <0.01 k/uL <0.01 <0.01 <0.01 Absolute nRBC <0.01 Absolute nRBC <0.01 DTYPE Auto Auto Protein, Total 6.3 - 8.0 g/dL 5.8 (L) 5.5 (L) Albumin 3.9 - 4.9 g/dL 3.9 3.5 (L) 3.7 (L) Calcium 8.5 - 10.2 mg/dL 8.4 (L) 8.4 (L) 8.5 Bilirubin, Total 0.2 - 1.3 mg/dL 0.4 0.3 Alkaline Phosphatase 38 - 113 U/L 76 69 AST 14 - 40 U/L 9 (L) 6 (L) ALT 10 - 54 U/L 13 11 Glucose 74 - 99 mg/dL 108 (H) 101 (H) 106 (H) BUN 9 - 24 mg/dL 34 (H) 29 (H) 19 Creatinine 0.73 - 1.22 mg/dL 1.08 1.07 1.05 Sodium 136 - 144 mmol/L 141 142 142 Potassium 3.7 - 5.1 mmol/L 4.0 4.5 3.6 (L) Chloride 98 - 107 mmol/L 108 (H) 111 (H) 110 (H) CO2 22 - 30 mmol/L 21 (L) 22 21 (L) Anion Gap 8 - 15 mmol/L 12 9 11 eGFR >=60 mL/min/1.73m 71 72 74 Phosphorus 2.7 - 4.8 mg/dL 3.4 3.6 Iron 41 - 186 ug/dL 89 TIBC 232 - 386 ug/dL 236 Transferrin Saturation 15.0 - 57.0 % 37.7 Magnesium 1.7 - 2.3 mg/dL 2.5 (H) Lactate 0.5 - 2.2 mmol/L 1.5 Ferritin 30.3 - 565.7 ng/mL 70.5 Legend: (L) Low (H) High 1. Gastrointestinal hemorrhage, unspecified gastrointestinal hemorrhage type (K92.2) 2. BRBPR (bright red blood per rectum) (K62.5) - Recent hospitalization (September 08) for GI bleed with BRBPR, likely related to recent colonoscopy with polypectomy on September 01. - No further bleeding during hospitalization; stable for discharge. - No evidence of ongoing bleeding; no bright red blood per rectum since hospitalization. - Provided stool kit to monitor for occult blood. - Educated on signs of recurrent bleeding (BRBPR, melena, hematemesis) and advised to seek immediate medical attention if these occur. 3. Anemia, unspecified type (D64.9) - Recent hemoglobin drop to 7.9 g/dL at discharge following GI bleed; prior hemoglobin and iron levels were normal. - Continue iron supplementation once daily; reduce from TID due to constipation. - Discussed risks of iron infusion (anaphylaxis); not recommended unless oral iron fails or anemia worsens. - Recheck CBC in one week to monitor hemoglobin recovery. Sent home [facility] FOBT kit to rule out persistent GI bleed. 4. Fall in home, subsequent encounter (W19.XXXD) 5. Rib contusion, left, subsequent encounter (S21.899D) - Fall on September 11 with back impact; no head trauma or LOC. - CT head and cervical spine negative for acute injury. - X-ray showed possible non-displaced left 8th lateral rib fracture; no tenderness on exam. - Continue supportive care for rib injury; no further intervention needed. 6. Altered mental status, unspecified altered mental status type (R41.82) - Recent episodes of confusion and sundowning, similar to prior GI bleed. - Urinalysis and urine culture negative for infection. - Educated on potential causes (anemia, hospitalization, underlying dementia). - Monitor for improvement as hemoglobin recovers. 7. Hypotension, unspecified hypotension type (I95.9) - Recent BP as low as 70/40 mmHg; likely multifactorial (recent blood loss, diuretic use, weight loss). - Hold Lasix until cardiology follow-up; consider PRN use if edema or weight gain occurs. - Continue metoprolol 1/2 tablet BID. - Maintain fluid intake up to 60 oz/day. - Instructed shelter to monitor BP daily; call if <100/60 mmHg or >160/100 mmHg. 8. Alzheimer's disease (HCC) (G30.9) Stable on current regimen. Recent UA negative for infection. 9. Coronary artery disease involving [place]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[place] heart without angina pectoris (I25.10) Asymptomatic on current regimen. Keep scheduled appointments with cardiology. Will hold lasix for the next 2 days and have BP rechecked at with cardiology and daily at [facility]. Change lasix dose to PRN for weight gain more than 2-3 lbs in 24 hours or new edema or Shortness of breath. 10. Chronic heart failure with preserved ejection fraction (HCC) (I50.32) 11. Chronic diastolic congestive heart failure (HCC) (I50.32) 12. senior care current use of diuretic (Z79.899) - Recent improvement in heart failure markers; no current signs of fluid overload. - Continue daily weights and monitor for edema or rapid weight gain. - Cardiology follow-up in 2 days (September 18) at heart failure clinic. - Discussed potential for hip surgery pending cardiology risk assessment and hematologic recovery. 13. Hospital discharge follow-up (Z09) - Reviewed recent hospitalizations and ER visits. - Provided handicap placard prescription. - Routine follow-up in October. I spent a total of 56 minutes on the date of the service which included preparing to see the patient, [id number] patient care, completing clinical documentation, obtaining and/or reviewing separately obtained history, performing a medically appropriate examination, counseling and educating the patient/family/caregiver, ordering medications, tests, or procedures, independently interpreting results (not separately reported), communicating results to the patient/family/caregiver, and care coordination (not separately reported). Lenin Chaudhary MD documented in this encounter [facility] 09-15-2024 Note . MICRO - Microbiology PROCEDURE: Urine Culture [*1] SOURCE: Urine BODY SITE: COLLECTED DATE/TIME: 09/13/2024 09:22 EDT RECEIVED DATE/TIME: 09/13/2024 15:18 EDT START DATE/TIME: 09/13/2024 15:19 EDT FREE TEXT SOURCE: FINAL REPORTS Final Report [] Verified Date/Time/Personnel: 09/15/2024 07:26 EDT No growth at 48 hours. PRELIMINARY REPORTS Preliminary Report [] Verified Date/Time/Personnel: 09/14/2024 08:30 EDT No growth to date Preliminary Report [] Verified Date/Time/Personnel: 09/13/2024 15:59 EDT Specimen received in lab. Performing Locations *1: This test was performed at: [address], [address] [place] [address] 09-12-2024 Note [facility] 09-12-2024 Telephone encounter Note Faxed to number below as requested Amelia Velazquez MA [facility] 09-12-2024 Miscellaneous Notes Faxed to number below as requested Amelia Velazquez MA Orders placed for UA, C&S. Please fax. Dana- at [facility] - asking pcp fax urine order to [facility]- fax # [phone] Called and spoke with nurse Dana regarding below fax. Dana states that she reviewed pt's ER records as well and noted they did not mention that he was also sent in for mental status change in addition to dizziness and low BP. Yesterday after his fall, they asked pt to sit in a chair and he couldn't process how to do that. She states he has been more unsteady on his feet and today, he is asking to eat his meals in his room. Normally he goes upstairs and eats in the meal room. Dana states pt is alert and oriented to day but a little forgetful but she states he is back to his baseline for them. Pt does have a hx of dementia and is on Aricept and Memantine. When Dana spoke with pt's son, he states that his dad does have a history of UTIs with mental changes. Dana notes that ER did not do any bloodwork on pt either. Asking if Dr. Chaudhary would like them to draw any? She states they are keeping a very close eye on pt. ER follow up appt made for next Sunday. Per Dr. Chaudhary hold off on labs until urine results back. Dana notified to proceed with urinalysis and culture. Records were received and reviewed by Dr. Chaudhary. A fax was sent to Dr. Chaudhary this morning stating the following: On return from hospital, pt is restless and confused especially in the evening. One on one merchandising assistant assigned 09/11. Reported pt had visual hallucinations, seeing boy greige goods inspector across the street and shoes on the railing that were not there. Any orders you can suggest? Dr. Chaudhary asks for pt to be triaged for confusion. Per my original note yesterday, Dana had said that was one of the reasons that they sent him to the ER but no documentation of that found in the ER records-per Dr. Chaudhary. Records requested Cristina Mitchell MA Ok, thanks for the update. Please obtain records from [facility]. Dana nurse at [facility] calling in to update Dr. Chaudhary. She states pt was discharged from [facility] yesterday (TCM already completed) back to [facility]. This morning pt's BP was 70/40, pt had a fall and a change in mental status and is currently at [facility]. She just wanted to update provider. documented in this encounter [facility] 09-12-2024 Telephone encounter Note Orders placed for UA, C&S. Please fax. [facility] 09-12-2024 Telephone encounter Note Dana- at [facility] - asking pcp fax urine order to [facility] lab- fax # [phone] [facility] 09-12-2024 Telephone encounter Note Called and spoke with nurse Dana regarding below fax. Dana states that she reviewed pt's ER records as well and noted they did not mention that he was also sent in for mental status change in addition to dizziness and low BP. Yesterday after his fall, they asked pt to sit in a chair and he couldn't process how to do that. She states he has been more unsteady on his feet and today, he is asking to eat his meals in his room. Normally he goes upstairs and eats in the meal room. Dana states pt is alert and oriented to day but a little forgetful but she states he is back to his baseline for them. Pt does have a hx of dementia and is on Aricept and Memantine. When Dana spoke with pt's son, he states that his dad does have a history of UTIs with mental changes. Dana notes that ER did not do any bloodwork on pt either. Asking if Dr. Chaudhary would like them to draw any? She states they are keeping a very close eye on pt. ER follow up appt made for next Sunday. Per Dr. Chaudhary hold off on labs until urine results back. Dana notified to proceed with urinalysis and culture. [facility] 09-12-2024 Telephone encounter Note Records were received and reviewed by Dr. Chaudhary. A fax was sent to Dr. Chaudhary this morning stating the following: On return from hospital, pt is restless and confused especially in the evening. One on one merchandising assistant assigned 09/11. Reported pt had visual hallucinations, seeing boy greige goods inspector across the street and shoes on the railing that were not there. Any orders you can suggest? Dr. Chaudhary asks for pt to be triaged for confusion. Per my original note yesterday, Dana had said that was one of the reasons that they sent him to the ER but no documentation of that found in the ER records-per Dr. Chaudhary. [facility] 09-11-2024 Telephone encounter Note Records requested Cristina Mitchell MA [facility] 09-11-2024 Hospital Discharg e instructions Patient Education 09/11/2024 11:13:02 Chest Wall Contusion Chest Contusion A contusion is a bruise to the skin, muscle, or ribs. It may cause pain, tenderness, and swelling. It may turn the skin purple until it heals. Contusions take a few days to a few weeks to heal. Home care Follow these guidelines when caring for yourself at home: Rest. Don t do any heavy lifting or strenuous activity. Don t do any activity that causes pain. Put an ice pack on the injured area. Do this for 20 minutes every 1 to 2 hours the first day. You can make an ice pack by wrapping a plastic bag of ice cubes in a thin towel. Continue to use the ice pack 3 to 4 times a day for the next 2 days. Then use the ice pack as needed to ease pain and swelling. After 1 to 2 days you may put a warm compress on the area. Do this for 10 minutes several times a day. A warm compress is a clean cloth that s damp with warm water. Hold a pillow to the affected area when you cough. This will help ease pain. You may use mafm-lkg-nqbwqst pain medicine such as acetaminophen or ibuprofen to control pain, unless another pain medicine was prescribed. If you have chronic liver or kidney disease, talk with your healthcare provider before using these medicines. Also talk with your provider if you ve had a stomach ulcer or gastrointestinal bleeding. Follow-up care Follow up with your healthcare provider, or as advised. When to seek medical advice Call your healthcare provider right away if any of these occur: New abdominal pain or abdominal pain that gets worse Fever of 100.4 F (38 C) or higher, or as directed by your healthcare provider Call 911 Call 911 if any of these occur: Dizziness, weakness, or fainting Shortness of breath, trouble breathing, or breathing fast Chest pain gets worse when you breathe Severe pain that comes on suddenly or lasts more than an hour [id number] [employer]. [address] [facility], [place] [address]. All rights reserved. This information is not intended as a substitute for professional medical care. Always follow your healthcare professional's instructions. Follow Up Care 09/11/2024 09:41:10 With:LENIN CHAUDHARY MD Address: [address] [place] [id number]- When:2-4 days [facility] 09-11-2024 Note HNO ID: [id number] Author: LENIN CHAUDHARY MD Service: ? Author Type: Physician Type: Progress Notes Filed: 09/11/2024 12:24 Note Text: Reviewed. Patient to [facility] today for evaluation of hypotension. [facility] 09-11-2024 History of Presen t illness Narrative Reviewed. Patient to [facility] today for evaluation of hypotension. Images from the original note were not included. TRANSITION CARE MANAGEMENT (TCM) PHARMACY CONTACT Provider Action/FYI: TCM Medication Reconciliation completed for patient. See medication list table below for details. This TCM [facility] spoke with assisted living facility nurse for med review. Upon review, many discrepancies noted requiring clarification. This TCM [facility] contacted inpatient provider for clarifications. Nurse at [facility] was updated on clarifications and med list in [facility] subsequently updated. - - route to PCP to review/FYI, no further action required at this time, clarifications obtained listed below Patient OK to STOP Lisinopril after discharge (Patient wasn't taking Lisinopril TALENT DEVELOPMENT MANAGER as another provider had stopped, did not receive while inpatient) Patient OK to start taking potassium supplement 20mEq BID (wasn't on med list at discharge) Patient OK to start taking brimonidine eye drops again (wasn't on med list at discharge) Patient OK to go back to TID dosing for Iron (med list only at once daily at discharge) Initial contact with patient post discharge, spoke to family member, son, and caregiver, nurse at [facility] ([phone]),, and verified that any applicable caregiver is active in patient's medical care. Patient identified by name and . Summary: -Pt discharged from [facility] on 09/10/24. -Medication review done: Full medication review completed Patient Concerns: Review and discussion of medications with caregiver, nurse at [facility], as outlined in medication table below. Source of medication information obtained from Medication list. Dispense records from pharmacy also utilized to obtain additional medication fill history. Nurse at [facility] reports patient is back in ER but has many clarifications needed. This [facility] notified TCM RN Neftaly Atkinson of patient being back in ER per [facility] nurse. Advised nurse will clarify medications and call back. See med table regarding clarifications obtained for iron, lisinopril, potassium and brimonidine. No additional reported medication questions or concerns at this time. History of Present Illness: The following content has been copied and pasted from patient's discharge summary. If discharge summary unavailable, After Visit Summary or last pertinent inpatient notes are copied and pasted. REASON FOR HOSPITALIZATION: Bright red blood per rectum FINAL DIAGNOSIS: Post-Polypectomy Bleed Active Hospital Problems Diagnosis POA GI bleed Yes Hyperlipidemia Yes Essential hypertension Yes Postoperative atrial fibrillation (HCC) Yes Chronic heart failure with preserved ejection fraction (HCC) Yes Coronary artery disease involving [place]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[place] heart without angina pectoris Yes BPH (benign prostatic hyperplasia) Yes Alzheimer's dementia without behavioral disturbance, psychotic disturbance, mood disturbance, or anxiety, unspecified dementia severity, unspecified timing of dementia onset (HCC) Yes Iron deficiency anemia secondary to inadequate dietary iron intake Yes CHRISTIANO (obstructive sleep apnea) Yes Resolved Hospital Problems No resolved problems to display. HOSPITAL COURSE: Homero Mei is a 78-year-old male with a past medical history of hyperlipidemia, dermatitis, IBS, hypertension, degenerative disc disease, CHRISTIANO, iron deficiency anemia, Alzheimer's dementia, BPH, CAD, history of CHF, history of A-fib presented to the emergency department with complaints of bright red blood per rectum. Of note patient had a colonoscopy with Dr. Adnino on 09/01 where polyps were removed. Patient has been taking his Eliquis. He was monitored with no further bleeding and stable for discharge. He may resume eliquis on Sunday. Transitions of Care Critical Issues: SPECIALIST FOLLOW-UP: Surgery LABS AND PROCEDURES PENDING AT DISCHARGE: No pending results. PATIENT CONDITION AT DISCHARGE: Stable DISCHARGE DISPOSITION: Assisted Living Facility Medication Reconciliation: Legend: Stopped, New, Changed, Paused, Added to list Medication List Medication Directions Comments Action/Plan Potassium chloride 20mEq 1bid Not on med list- was taking TALENT DEVELOPMENT MANAGER Ok to add back? YES EPIC CHAT SENT TO DR. KHANG MAR TO CLARIFY See bottom of note for documentation of conversation and clarification obtained. CALLED BACK NURSE DANA TO GIVE CLARIFICATION Patient's nurse verbalized understanding, agreeable to plan Added back to active meds ascorbic acid, vitamin C, (VITAMIN C) 500 mg tablet Take 1 tablet by mouth once daily. aspirin, enteric coated (ASPIRIN, ENTERIC COATED) 81 mg EC tablet Take 1 tablet by mouth once daily. atorvastatin (LIPITOR) 40 mg tablet Take 1 tablet by mouth once daily. on pharmacy dispense records with recent fill hx Brimonidine eye drop 0.2% 1 gtt ou bid Not on med list- was taking TALENT DEVELOPMENT MANAGER Ok to add back ? YES EPIC CHAT SENT TO DR. KHANG MAR TO CLARIFY See bottom of note for documentation of conversation and clarification obtained. CALLED BACK NURSE DANA TO GIVE CLARIFICATION Patient's nurse verbalized understanding, agreeable to plan Added back to active meds cholecalciferol (VITAMIN D3) 1,000 unit tab tablet Take by mouth once daily. Taking 25 MCG daily cyanocobalamin (VITAMIN B-12) 1,000 mcg tab Take 1 tablet by mouth once daily. docusate sodium (COLACE) 100 mg capsule Take 1 capsule by mouth two times a day as needed for constipation. Senna/doc also on med list - uses senna/doc scheduled and then docusate prn only donepezil (ARICEPT) 10 mg tablet Take 1 tablet by mouth daily with breakfast. on pharmacy dispense records with recent fill hx Taking ELIQUIS 5 mg tab(s) Take 1 tablet by mouth two times a day. Patient should start on September 12, 2024. on pharmacy dispense records with recent fill hx Start taking on: September 12, 2024 78 year old Lab Results Component Value Date CREAT 1.05 09/10/2024 Last Wt 09/08/24 84.9 kg (187 lb 2.7 oz) Start tomorrow - reviewed start take ferrous sulfate 325 mg (65 mg iron) tablet Take 325 mg by mouth every 24 hours. Was taking TID TALENT DEVELOPMENT MANAGER- ok to go back to TID? Change med? YES EPIC CHAT SENT TO DR. KHANG MAR TO CLARIFY See bottom of note for documentation of conversation and clarification obtained. CALLED BACK NURSE DANA TO GIVE CLARIFICATION Patient's nurse verbalized understanding, agreeable to plan Updated med list to TID as clarified fluticasone (FLONASE) 50 mcg/actuation nasal spray Use 2 Sprays in each nostril once daily as needed. folic acid 1 mg tablet Take 1 tablet by mouth once daily. furosemide (LASIX) 20 mg tablet Take 1 tablet by mouth once daily. on pharmacy dispense records with recent fill hx lactobacillus combination no.4 (PROBIOTIC) 3 billion cell cap Take 1 capsule by mouth once daily. Order was for 'while on antibiotics' latanoprost (XALATAN) 0.005 % ophthalmic solution Use 1 Drop in both eyes daily at bedtime. on pharmacy dispense records with recent fill hx lisinopril (ZESTRIL) 40 mg tablet Take 40 mg by mouth once daily. on pharmacy dispense records with recent fill hx 09/10/24926 Resume at Discharge Khang Mar MD Didn't get while inpatient Hadnt been on TALENT DEVELOPMENT MANAGER Ok to stop taking? YES EPIC CHAT SENT TO DR. KHANG MAR TO CLARIFY See bottom of note for documentation of conversation and clarification obtained. CALLED BACK NURSE DANA TO GIVE CLARIFICATION Patient's nurse verbalized understanding, agreeable to plan D/c from active med list magnesium oxide (MAG-OX) 400 mg (241.3 mg magnesium) tablet Take 1 tablet by mouth once daily. melatonin 3 mg capsules Take 1 capsule by mouth at bedtime as needed for insomnia. memantine (NAMENDA) 5 mg tablet Take 1 tablet by mouth once daily. on pharmacy dispense records with recent fill hx metoprolol tartrate, short acting, (LOPRESSOR) 25 mg tablet Take 0.5 tablets by mouth two times a day. Hold for HR <60 and/or SBP <100 on pharmacy dispense records with recent fill hx pantoprazole DR (PROTONIX) 40 mg tablet Take 40 mg by mouth once daily. on pharmacy dispense records with recent fill hx polyethylene glycol 3350 17 gram packet Take 1 Packet by mouth once daily. Dissolve dose in 4 - 8 ounces of liquid and take as directed. senna-docusate (SENNA WITH DOCUSATE SODIUM) 8.6-50 mg per tablet Take 1 tablet by mouth once daily. 1qd Takes scheduled per nurse at [facility] Plain docusate also on med list - uses the plain doc prn only senna-docusate (SENNA WITH DOCUSATE SODIUM) 8.6-50 mg per tablet Take 1 tablet by mouth once daily as needed for constipation. Duplicate - erroneous D/c erroneous duplicate from med list tamsulosin (FLOMAX) 0.4 mg Take 1 capsule by mouth two times a day. on pharmacy dispense records with recent fill hx vit C/E/Zn/coppr/lutein/zeaxan (PRESERVISION AREDS-2 ORAL) Take 1 capsule by mouth two times a day. Preferred pharmacy: [facility] [place] [address] - [address] [facility] - [phone] [id number] [facility] [address] e- [id number] [place] [address] - [address] [facility] - [phone] [place] [address] Is patient active on HF registry? Yes Quality Measure workup: Quality Measure workup has an emphasis on new and changed medications related to most recent discharge Poly-[place] Medications - NO Poly-ACH Medications - NO COB Medications (Opioids) - NO COB Medications (Benzodiazepine)- NO Measure definitions: Poly-[place] HARVESTER (Polypharmacy: Use of multiple SEAWEED HARVESTER-ACTIVE medications in older adults) Measure: Individuals >=65 years of age with concurrent use of >= 3 unique central-nervous system (SEAWEED HARVESTER)-active medications Exclude from recommendations: patient has new dx of seizure disorder within the last year Poly-ACH (Polypharmacy; Use of multiple anticholinergic medications in older adults) Measure: Individuals >=65 years of age with concurrent use of >= 2 unique anticholinergic medications COB (Concurrent use of Opioids and Benzodiazepines) Measure: individuals >= 18 years of age on >= 2 keno terminal operator (15+ day supply) opioid medications and >=2 benzodiazepines Exclude from recommendations: patients with sickle cell or cancer dx, or on palliative care Did patient meet any of the measure definitions? No Estimated Creatinine Clearance: 67.6 mL/min (based on SCr of 1.05 mg/dL). Estimated Glomerular Filtration Rate (mL/min/1.73m ) Date Value 09/10/2024 74 eGFR- (no units) Date Value 02/28/2021 >60 Additional follow up: Next 5 Appointments Date and Time Provider Department Dept Phone 09/18/2024 1:15 PM 3, Nurse Card Chf; Nickie Ahumada [facility] [phone] 11/03/2024 9:20 AM Lenin Chaudhary [facility] [phone] 11/24/2024 9:20 AM Dhara Gill [facility] [phone] 12/29/2024 1:00 PM Sheng Pacheco [facility] [phone] Interventions Made: Drugs discontinued, Drugs added, and Drugs modified Pharmacist Recommendations Made Therapeutic interchange/Drug therapy regimen optimization recommendation Care Coordination: Medication clarification obtained from provider and Consulted with TCM Arbitrator / academic support specialist Time spent on patient: 60-75 minutes EVERETT ARTEAGA, PHARMACIST, [facility] Transitional Care Management (R-C 4g-8d) September 11, 2024 12:09 PM documented in this encounter [facility] 09-11-2024 Note Discharge Instructions Thank you for allowing [facility] to assist you with your healthcare needs. The following is important discharge information regarding your hospital visit. Diagnosis from Today's Visit Fall Rib contusion What to Do Next Instructions from Your Care Team No qualifying data available. Post Acute Orders No qualifying data available. You Need to Schedule the Following Appointments Follow Up with LENIN CHAUDHARY MD When:Within 2-4 days Where:[facility] [address] [address]- Allergies NKA Medications Please ask your primary doctor or pharmacist before taking any other medication not listed, including over the counter drugs, herbal medications, vitamins and or supplements as they may interact with your home medications. Please take this list to your next doctor s visit. Bring all medications you take, including over the counter medications, herbals and other supplements with you to your doctor s visit. Patients and families are reminded to discard old lists and to update any records with all medication providers or retail pharmacies. Education Materials Chest Contusion A contusion is a bruise to the skin, muscle, or ribs. It may cause pain, tenderness, and swelling. It may turn the skin purple until it heals. Contusions take a few days to a few weeks to heal. Home care Follow these guidelines when caring for yourself at home: Rest. Don t do any heavy lifting or strenuous activity. Don t do any activity that causes pain. Put an ice pack on the injured area. Do this for 20 minutes every 1 to 2 hours the first day. You can make an ice pack by wrapping a plastic bag of ice cubes in a thin towel. Continue to use the ice pack 3 to 4 times a day for the next 2 days. Then use the ice pack as needed to ease pain and swelling. After 1 to 2 days you may put a warm compress on the area. Do this for 10 minutes several times a day. A warm compress is a clean cloth that s damp with warm water. Hold a pillow to the affected area when you cough. This will help ease pain. You may use grvc-cag-nlwjbgl pain medicine such as acetaminophen or ibuprofen to control pain, unless another pain medicine was prescribed. If you have chronic liver or kidney disease, talk with your healthcare provider before using these medicines. Also talk with your provider if you ve had a stomach ulcer or gastrointestinal bleeding. Follow-up care Follow up with your healthcare provider, or as advised. When to seek medical advice Call your healthcare provider right away if any of these occur: New abdominal pain or abdominal pain that gets worse Fever of 100.4 F (38 C) or higher, or as directed by your healthcare provider Call 911 Call 911 if any of these occur: Dizziness, weakness, or fainting Shortness of breath, trouble breathing, or breathing fast Chest pain gets worse when you breathe Severe pain that comes on suddenly or lasts more than an hour [phone] [employer]. [address] [place] [address]. All rights reserved. This information is not intended as a substitute for professional medical care. Always follow your healthcare professional's instructions. Additional Information VACCINATE! IT SAVES LIVES! Members of the community who have not yet received the COVID-19 vaccine and would like to receive it can visit one of [facility] vaccine clinics. There are many vaccine clinic locations within the [facility]. For locations and available times, please visit [email or web address].[email or web address] [email or web address] It is important to note that some COVID mobile vaccine clinics are held outdoors and may be canceled in rainy or stormy conditions. To learn more about pediatric vaccinations (ages 5-11), we invite you to visit the [facility] webpage. https://www.[email or web address].org/p ages/7734-Tkwbl-Zcerphjnjpj-Freq drykhj-Wmnvx-Bcoswajbm.html To learn more about the COVID-19 vaccine, we invite you to visit the CDC website for a list of frequently asked questions. https://www.cdc.gov/coronavirus/ 2019-ncov/vaccines/faq.html [facility] Patient Portal Access Instructions: Stay connected with your healthcare team and access your personal medical information anytime with the [facility] Patient Portal. If you would like a full copy of your medical records please contact the [facility] Medical Records Department Sunday through Sunday between 8a.m. and 4:30p.m. Please follow the directions below to access the portal: 1.Access the email account you provided upon registration to the [facility].2.Look for an invitation email from [facility].3.Open the email and access the invitation link: Accept Invitation to [facility]4.Fill in the required larson to create your account. Sign into [email or web address] with your username and password that you created in the above steps to stay up to date. You can then view a summary of results, a summary of your visits, and the ability to download your summaries to your computer or send the information securely to a physician. Remember that your healthcare information is confidential, so carefully consider who you will allow to register on the [facility] Patient Portal for access to your information. You can also access the [facility] Patient Portal on the [employer]. Simply click on Health Records under Health Data and then click on the [employer] logo. HOW TO SAFELY DISPOSE OF PRESCRIPTION MEDICATIONS Please use one of the following methods to safely dispose of your unused medications. 1.Use a drug disposal kit: the drug disposal pouch allows you to safely discard your old and unused drugs. Ask your nurse to give you one when you are discharged.2.Visit a local take-back location: Many local pharmacies and police departments have programs that collect old and unwanted prescription drugs. Call your local pharmacy or go to http://[employer]/8R6Ii0r to find one close to you.3.Make use of household items: Use cat litter or old coffee grounds to dispose medications if other options are not available. Mix your drugs with these household products, seal them in an airtight container and throw it into the garbage. Call [facility]: [phone] to be sure your drugs can be disposed of in this way. Some medicines may require a different approach.4.Never flush your medications down the toilet. IF YOU HAVE BEEN PRESCRIBED AN OPIOIDS FOR PAIN If you have been prescribed an opioid (such as hydrocodone, oxycodone or morphine), it is critical to understand the possible side effects and risks of opioid pain medications. Even when taken as directed, opioids can have several side effects including: Tolerance, meaning you might need to take more of a medication for the same pain relief. Nausea, vomiting and/or constipation. Sleepiness, dizziness, dry mouth, confusion, depression or itching. Physical dependence, meaning you have withdrawal symptoms when a medication is stopped ? this can develop within a few days. KNOW YOUR RESPONSIBILITIES It is important to know exactly how much and how often to take the opioid pain medications you are prescribed. Never take opioids in higher amounts or more often than prescribed. Do not combine opioids with alcohol or other drugs that cause drowsiness, such as benzodiazepines, also known as benzos, including diazepam and alprazolam, muscle relaxants or sleep aids. Never sell or share prescription opioids. This is illegal. Store opioids in a secure place and out of reach of others (including children, family, friends and visitors). The last page(s) of this document has been signed and retained as a CHART COPY Signatures Patient Education Materials Chest Wall Contusion Medication Leaflets My discharge plan and instructions have been reviewed and explained to me and I,HOMERO MEI understand my current condition and have read and understand these discharge instructions. I have received a written copy of the plan/instructions. If I have questions, I am aware that I should contact my doctor. Patient/Primary Substance Abuse Counselor Signature: Date/Time: Relationship to Patient: Witness Name/Signature: Date/Time: [facility] 09-11-2024 Telephone encounter Note Ok, thanks for the update. Please obtain records from [facility]. [facility] 09-11-2024 Telephone encounter Note Dana nurse at [facility] calling in to update Dr. Chaudhary. She states pt was discharged from [facility] yesterday (TCM already completed) back to [facility]. This morning pt's BP was 70/40, pt had a fall and a change in mental status and is currently at [facility]. She just wanted to update provider. [facility] 09-11-2024 Note Exam Date Time Procedure Performing Provider Status 09/11/24 10:43 AM XR Ribs 2 Views Left ISADORA MARTINO; Auth (Verified) [id number] ORIGINAL EXAMINATION: 4 XRAY VIEWS OF THE LEFT RIBS 09/11/2024 10:45 am COMPARISON: None. HISTORY: ORDERING SYSTEM PROVIDED HISTORY: Reason for Exam: lt lateral rib pain s/p fall today fall FINDINGS: Median sternotomy wires and bracket. Query a nondisplaced left 8th lateral rib fracture. No pneumothorax. Lung zone aerated. IMPRESSION: Query a nondisplaced left 8th lateral rib fracture. Interpreted by: Isadora Martino Preliminary Report By: Isadora Martino Electronically signed By Isadora Martino Dictated Date: 09/11/2024 10:54:04 AM Prelim Date: 09/11/2024 10:55:51 AM Sign Date: 09/11/2024 10:55:51 AM Ordering Provider: CAROLYN SCOTT [facility]07-24-2025 Note* Exam Date Time Procedure Performing Provider Status 09/11/24 10:[address] Spine Cervical w/o Contrast MONIQUE CHAUDHARY MD; Auth (Verified) [id number] ORIGINAL EXAMINATION: CT OF THE CERVICAL SPINE WITHOUT CONTRAST TECHNIQUE: Multiple-row detector helical CT examination of the cervical spine without IV contrast. Axial, sagittal, and coronal reconstructed images. This exam was performed according to our departmental dose optimization program, and includes the following measures where applicable: automated exposure control, adjustment of the mAs and/or kVp according to patient size and/or exam, and an iterative reconstruction algorithm. COMPARISON: None. HISTORY: ORDERING SYSTEM PROVIDED HISTORY: Reason for Exam: Pt fell as he was sitting into a chair today. hit back of head. pain; trauma patient FINDINGS: No fracture or traumatic malalignment. Vertebral body heights are maintained. The craniocervical junction is preserved. No aggressive osseous lesions are identified. Multilevel degenerative changes with disc height loss and endplate osteophyte formation most prominent at C5-C6 and C6-C7. Moderate right-sided facet arthropathy at C3 and C4 resulting in at least moderate right-sided neural foraminal stenosis. The prevertebral and paraspinal soft tissues demonstrate no acute abnormality. The lung apices are unremarkable. IMPRESSION: No acute fracture or traumatic malalignment. I have personally reviewed the images of this examination and agree with the resident's findings and interpretation. Interpreted by: Monique Chaudhary MD Preliminary Report By: Dhara Edgar MD Electronically signed By Monique Chaudhary MD Dictated Date: 09/11/2024 10:40:01 AM Prelim Date: 09/11/2024 10:52:30 AM Sign Date: 09/11/2024 10:52:30 AM Ordering Provider: CAROLYN SCOTT [facility]07-24-2025 Note* Exam Date Time Procedure Performing Provider Status 09/11/24 10:[address] Head or Brain w/o Contrast MONIQUE CHAUDHARY MD; Auth (Verified) [id number] ORIGINAL EXAMINATION: CT OF THE HEAD WITHOUT CONTRAST 09/11/2024 10:33 am TECHNIQUE: CT of the head was performed without the administration of intravenous contrast. Automated exposure control, iterative reconstruction, and/or weight based adjustment of the mA/kV was utilized to reduce the radiation dose to as low as reasonably achievable. COMPARISON: None. HISTORY: ORDERING SYSTEM PROVIDED HISTORY: Reason for Exam: Pt fell as he was sitting into a chair today. hit back of head. pain; trauma patient FINDINGS: BRAIN/VENTRICLES: There is no acute intracranial hemorrhage, mass effect or midline shift. No abnormal extra-axial fluid collection. The avendano-white differentiation is maintained without evidence of an acute infarct. There is no evidence of hydrocephalus. Scattered white matter hypodensities are nonspecific but statistically most consistent with moderate chronic microvascular angiopathy. The ventricles are moderately enlarged with commensurate enlargement of the sulci most consistent with parenchymal volume loss. ORBITS: The visualized portion of the orbits demonstrate no acute abnormality. SINUSES: The visualized paranasal sinuses and mastoid air cells demonstrate no acute abnormality. SOFT TISSUES/SKULL: No acute abnormality of the visualized skull or soft tissues. IMPRESSION: No acute intracranial abnormality. I have personally reviewed the images of this examination and agree with the resident's findings and interpretation. Interpreted by: Monique Chaudhary MD Preliminary Report By: Dhara Edgar MD Electronically signed By Monique Chaudhary MD Dictated Date: 09/11/2024 10:36:53 AM Prelim Date: 09/11/2024 11:04:11 AM Sign Date: 09/11/2024 11:04:11 AM [facility]ing [facility] History of Present illness Narrative* Rebecca Atkinson RN - 09/11/2024 9:23 AM EDT Transition Care Management (TCM) Initial Outreach PCP Update / Actionable Items Dr Gill: (Cardiology) Pt discharged from hospital on 09/10/24 with GI bleed. Indy Griffith would like to know if pt should resume Eliquis. Due to restart 09/12/24. Indy stated pt recently wore heart monitor but unsure results. Please reach out to nacho Moon to advise.PH. [phone] Thank you HRTIC TCM Home Visit Referral Source of Stratification: [facility] Admission Status: Discharged Readmission Risk Score: 18 Patient meets program referral criteria: No Patient does not qualify for High Risk TCM Home Visit program due to: Readmission Risk Score does not meet criteria Disposition: Patient does not qualify for HRTIC, will provide TCM outreach follow-up for 30-days Patient Source: In-Network Discharge Initial outreach: TCM discharge report Outreach Summary: TCM INITIAL OUTREACH Reached Indy griffith. Pt lives at [facility]. Facility takes care of medications and meals. Indy reports pt doing ok and happy to be discharged. States pt is a little weak from hospital stay.Has walker but not needed prior to admission. Advised Indy if he/they feel pt in need of PT to reach out to PCP office to get order. Reviewed medications. Pt to restart Eliquis on 09/12/24. Indy stated pt had heart monitoring to see if he had further A.Fib. awaiting results. Indy stated Radar Engineering Teacher stated pt may no longer need Eliquis. This RN sent message to Cardiology to advise. Reviewed social determinants. Indy denies concerns/needs pertaining to BH/SW, transportation, financial strain, and food insecurities at this time.Indy states pt has H/O depression and is managed. Indy manages appointments and transportation. States pt does have H/O Dementia. Still appropriate and able to answer questions if needed. Denies any further needs or concerns. 3:27 PM Facility reached out to PCP to make aware pt back to ED. pt's BP was 70/40, pt had a fall and a change in mental status and is currently at [facility]. She just wanted to update provider. Patient discharged from [facility] Discharge date: 09/10/24 Admitted for: GI Bleed Readmission Risk: 18 [facility] Contact: Contact made with patient: Yes Hi, my name is Rebecca Atkinson RN and I am calling from the [facility] on behalf of your Primary Care Provider, Lenin Chaudhary MD. I understand you were recently in the hospital, so I am calling to check in with you to ensure you are feeling well now that you are home. May I ask you a few questions related to your hospital stay and well-being? Yes Spoke to: Indy Griffith Validation: Validated the person spoken to is actively involved in the patient's care. The patient was identified by Name and Date of . Symptoms: Are you feeling about the same, better or worse since leaving the hospital? Better Medications: Do you have any questions about taking your medications, including which medications you should be on, or do you need refills on your medications? Yes Discussed the patient's questions and/or concerns. If applicable, the appropriate team/provider updated. Medication Review: Partial mediation review completed, per patient preference Discharge Instructions: Your Discharge Instructions / After Visit Summary (AVS) are important in guiding you through the recovery process. Do you have any questions related to your discharge instructions? No Home Care: Were you discharged with home care? No Equipment: Do you have all the necessary equipment and supplies needed at your home? Not applicable Social: Your mental health is as important to us as your physical health. Would you mind answering a few questions on this topic? Yes On the Storyboard review: Food Insecurity, Transportation, Depression, Housing, and Financial Strain: Complete any SDOHs, listed above, if not addressed in the past 3 months. If all SDOHs, listed above, have been addressed within the last 3 months, confirm responses and update any SDOHs that have changed. Action Taken: No needs verbalized. No action required. Follow-Up Appointment: [Appointment / TCM Follow-up within 14 days] I would like to help you schedule a hospital follow-up virtual or telephone visit with your PCP. This is a great way for you to connect with your provider to ensure you have safely transitioned home.If you are agreeable, I will send your request to a supervisor metal hanging who will contact and assist you with that appointment. This will give you an opportunity to ask any questions or address any concerns youmay have with your PCP. Inform the patient that if they have any questions or concerns prior to that appointment, to call their PCP's office right away. Appointment Action: No action required, patient declines appointment. Education details: Patient and family educated on issues/questions related to reason for admission,transition of care topics, and follow-up needed upon discharge. Rebecca Atkinson RN September 11, 2024 9:34 AM documented in this encounterAcmc Healthcare System07-24-2025 [facility]07-[facility]-2025 NoteHNO ID: [id number] Author: FARNCISCA VAZQUEZ MD Service: General Surgery Author Type: Physician Type: Progress Notes Filed: 09/15/2024 07:02 Note Text: Documentation Query Please clarify the relationship, if any, between Post-Polypectomy Bleed and Anticoagulant - Eliquis Post-Polypectomy Bleed is enhanced by anticoagulant - Eliquis This document will become part of the patient's medical record.[facility] 09-10-2024 NoteHNO ID: [id number] Author: JOVANA NUNO RN Service: Care Management Author Type: Registered Nurse Type: Care Mgt Progress Note Filed: 09/10/2024 12:15 Note Text: CARE MANAGEMENT DISCHARGE NOTE SERVICE DATE: September 10, 2024 SERVICE TIME: 12:13 PM Admission Date: 09/08/2024 LOS: 2 days Discharge Arrangement Discharge Arrangement: Assisted Living Facility Provider Name: [facility] Caregiver Assessment Caregiver is ready, willing and able to meet the patient's needs as recommended by the inter-professional team: Other: See Comment (Discharging to [facility]) Transportation Arrangements Transportation Arrangements: Car- Friend to transport Handoff Communication: Handoff to: Primary Care Physician Primary Care Physician Name/Phone: Dr. Lenin Chaudhary- [phone] Additional Information: Discharge order written for today. Met with the patient regarding his discharge today returning to [facility]. The patient stated his friend will transport. Spoke with the patients son Indy and her confirmed the patient friend will be transporting the patient today. Spoke with Prachi at [facility], updated her on the patient returning to them today. SIGNATURE: Jovana Nuno RN PATIENT NAME: Homero Mei DATE: September 10, 2024 TIME: 12:13 PMEast [facility] [id number] NoteHNO ID: [id number] Author: FRANCISCA VAZQUEZ MD Service: General Surgery Author Type: Physician Type: Progress Notes Filed: 09/10/2024 09:58 Note Text: INPATIENT PROGRESS NOTE SERVICE DATE: 09/10/2024 SERVICE TIME: 9:57 AM PRIMARY SERVICE: Medicine Subjective CHIEF COMPLAINT: Post polypectomy GI bleed INTERVAL HPI: Patient with stable hemoglobin and no bowel movements for the last 24 hours. Denies abdominal complaints Current Facility-Administered Medications Medication Dose Route Frequency NaCl 0.9% iv flush bag 20 mL INTRAVENOUS PRN atorvastatin 40 mg tab(s) (LIPITOR) 40 mg ORAL DAILY metoprolol tartrate (short acting) 12.5 mg tab(s) (LOPRESSOR) 12.5 mg ORAL BID donepezil 10 mg tab(s) (ARICEPT) 10 mg ORAL DAILY WITH BREAKFAST latanoprost 0.005 % 1 drop (XALATAN) 1 drop BOTH EYES AT BEDTIME memantine 5 mg tab(s) (NAMENDA) 5 mg ORAL DAILY pantoprazole DR 40 mg tab(s) (PROTONIX) 40 mg ORAL DAILY (6 AM) haloperidol lactate 2 mg short-acting injection (HALDOL) 2 mg INTRAVENOUS ONCE Objective PHYSICAL EXAM: BP 118/72 Pulse 61 Temp (Src) 98.4 (Oral) Resp 17 Ht 6' 1 (1.85m) Wt 187 lb 2.7 oz (84.9kg) SpO2 98% BMI 24.70 kg/(m2). O2 Therapy: Room Air Physical Exam Performed GENERAL: Alert, no distress, cooperative LUNGS: Lungs clear to auscultation, Good diaphragmatic excursion CARDIAC: Normal S1 and S2; no rubs, murmurs, or gallops ABDOMEN: Abdomen soft, non-tender, BS normal, No masses or organomegaly DATA: Diagnostic tests reviewed for today's visit: Most recent labs and imaging results. Assessment/Plan Principal Problem: GI bleed (POA: Yes) Assessment AND Plan: Patient with likely post polypectomy bleed. Hemoglobin stable. No further bloody bowel movements. I am comfortable with patient being discharged home today. Will restart oral anticoagulation 2 days. Have patient follow-up in my office in 1 week. Active Problems: Hyperlipidemia (POA: Yes) Assessment AND Plan: per medicine Essential hypertension (POA: Yes) Assessment AND Plan: per medicine CHRISTIANO (obstructive sleep apnea) (POA: Yes) Assessment AND Plan: per medicine Iron deficiency anemia secondary to inadequate dietary iron intake (POA: Yes) Assessment AND Plan: per medicine Alzheimer's dementia without behavioral disturbance, psychotic disturbance, mood disturbance, or anxiety, unspecified dementia severity, unspecified timing of dementia onset (HCC) (POA: Yes) Assessment AND Plan: per medicine BPH (benign prostatic hyperplasia) (POA: Yes) Assessment AND Plan: per medicine Coronary artery disease involving [place]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[place] heart without angina pectoris (POA: Yes) Assessment AND Plan: per medicine Chronic heart failure with preserved ejection fraction (HCC) (POA: Yes) Assessment AND Plan: per medicine Postoperative atrial fibrillation (HCC) (POA: Yes) Assessment AND Plan: per medicine Resolved Problems: * No resolved hospital problems. * Medication and Non-Pharmacologic VTE Prophylaxis/Anticoagulants VTE Prophylaxis: Contraindicated GI bleed -would restart in 2 days SIGNATURE: Francisca Vazquez MD PATIENT NAME: Homero Mei DATE: September 10, 2024 TIME: 9:57 AMEast [facility] [id number] NoteParkwood Hospital07-22-2025 History of Present illness Narrative* Randi Mckeon RN - 09/09/2024 2:00 PM EDT Transitional Care Management (TCM) Inpatient Outreach N/A - No specialty updates needed Summary: Patient admitted to: [facility] Patient admitted on: (Not on file) Admitted for: GI Bleed Contact made with patient: No Outreach ended. Radni Mckeon RN September 09, 2024 documented in this encounterAcmc Healthcare System07-22-2025 NoteHNO ID: [id number] Author: JOVANA NUNO RN Service: Care Management Author Type: Registered Nurse Type: Care Mgt Initial Assessment Filed: 09/09/2024 09:00 Note Text: CARE MANAGEMENT: ASSESSMENT AND DISCHARGE PLAN SERVICE DATE: September 09, 2024 SERVICE TIME: 8:59 AM PCP: Lenin Chaudhary MD Primary Contact: Extended Emergency Contact Information Primary Emergency Contact: Indy Mei Address: [address] [place] [address] OF PRECIOUS Mobile Relation: Son Secondary Emergency Contact: William Mei Mobile Relation: Son Admission Status: Inpatient Insurance Provider: [employer] Discharge Planning requested by: Per Department Practice Potential Transition Plans Other: See Comment (Return to [facility]) Advance Directives Current Advance Directive: Health Care Power of Commercial Horticulture Instructor In Chart: Yes Up To Date and Valid: Yes Current Living Arrangements and Support Lives with: Alone Type of Residence: Assisted Living Facility Does the patient have to climb stairs at home?: No Care Facility Name: [facility] Support: Children How do you manage to accomplish the following: Independent: Ambulation, Bathe/Shower, Dress, Going to the bathroom Dependent: Meals/Meal Prep, Medication Management, Transportation to appointments/community Current Services/Equipment Current Post-Acute Service(s): None Discharge Planning Patient Goal(s): Be able to go home [place] Explained: [place] Given: Yes Level of Care Discussed: Other: See Comment ([facility]) Are you interested in bedside delivery of your medications? No - [facility] Discharge Planning Participant(s): Patient Patient/Family Comments: Caregiver Assessment: Caregiver is ready, willing and able to meet the patient's needs as recommended by the inter-professional team: Other: See Comment (From [facility]) Transport at Discharge: Transportation Arrangements: To Be Determined Needs Prior to Discharge: Needs Prior to Discharge: To Be Determined Post-Acute Discharge Plan: Review of the chart and and met with the patient. The patient states he is from 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 [facility] takes care of his medication and meals. The patient stated he is unsure if he will have transportation at discharge. CM department will continue to follow for DC needs. SIGNATURE: Jovana Nuno RN PATIENT NAME: Homero Mei DATE: September 09, 2024 TIME: 8:59 AMEast [facility] [id number] NoteHNO ID: [id number] Author: KHANG MAR MD Service: Hospital Medicine Author Type: Physician Type: Progress Notes Filed: 09/09/2024 08:43 Note Text: DEPARTMENT OF HOSPITAL MEDICINE PROGRESS NOTE SERVICE DATE: 09/09/2024 SERVICE TIME: 8:40 AM Hospital Medicine/Primary Attending: Khang Mar MD NIGHT AND WEEKEND COVERAGE: [place] COVERAGE: Days: [phone], please page attending physician. Nights: [phone], please page [place] Hospital[facility] Night coverage pager [phone]. Subjective INTERVAL HPI: - No further bleeding at this time - Trending hemoglobin - Hopeful for d/c tomorrow Current Facility-Administered Medications Medication Dose Route Frequency NaCl 0.9% iv flush bag 20 mL INTRAVENOUS PRN atorvastatin 40 mg tab(s) (LIPITOR) 40 mg ORAL DAILY metoprolol tartrate (short acting) 12.5 mg tab(s) (LOPRESSOR) 12.5 mg ORAL BID donepezil 10 mg tab(s) (ARICEPT) 10 mg ORAL DAILY WITH BREAKFAST latanoprost 0.005 % 1 drop (XALATAN) 1 drop BOTH EYES AT BEDTIME memantine 5 mg tab(s) (NAMENDA) 5 mg ORAL DAILY NaCl 0.9% iv infusion 75 mL/hr INTRAVENOUS CONTINUOUS pantoprazole 40 mg injection (PROTONIX) 40 mg INTRAVENOUS BID AC (0600/1600) Objective PHYSICAL EXAM: BP 146/89 Pulse 46 Temp (Src) 97.7 (Oral) Resp 17 Ht 6' 1 (1.85m) Wt 187 lb 2.7 oz (84.9kg) SpO2 97% BMI 24.70 kg/(m2). O2 Therapy: Room Air Physical Exam Performed GENERAL: Alert, no distress, cooperative SKIN: Skin color, texture, turgor normal. No rashes or lesions. HEAD/SINUSES: No significant findings EYES: EOMI LUNGS: Lungs clear to auscultation, Good diaphragmatic excursion CARDIAC: Normal S1 and S2; no rubs, murmurs, or gallops ABDOMEN: Abdomen soft, non-tender, BS normal, No masses or organomegaly EXTREMITIES: Normal exam of the extremities NEURO: Grossly normal cognition, motor function, and cranial nerves III-XII Lines, Drains, and Airways Line Duration Peripheral 09/08/24 Right Antecubital 20 Gauge 1 day Reviewed lines and needs to be continued: REASONS: Telemetry DATA: Diagnostic tests reviewed for today's visit: Most recent labs Most recent imaging Most recent EKG Assessment/Plan Problem List HOSPITAL COURSE: Homero Mei is a 78-year-old male with a past medical history of hyperlipidemia, dermatitis, IBS, hypertension, degenerative disc disease, CHRISTIANO, iron deficiency anemia, Alzheimer's dementia, BPH, CAD, history of CHF, history of A-fib presented to the emergency department with complaints of bright red blood per rectum. Of note patient had a colonoscopy with Dr. Andino on 09/01 where polyps were removed. Patient has been taking his Eliquis. GI bleed Bright red blood per rectum History of recent colonoscopy History of Iron deficiency anemia secondary to inadequate dietary iron intake - Oral ppi - N.p.o. except medications - IV fluids as needed - CBC every 6 hourly - Transfuse if hemoglobin less than 7 - Surgery Consult - Recent Scope outpt with Dr. Vazquez - Hold anticoagulation Coronary artery disease involving [place]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[place] heart without angina pectoris Chronic heart failure with preserved ejection fraction (HCC) Postoperative atrial fibrillation (HCC) Essential hypertension Hyperlipidemia - Hold antihypertensive medications due to labile blood pressure, restart as appropriate - Hold anticoagulation until appropriate per Surgery - Hold Eliquis and Aspirin Alzheimer's dementia without behavioral disturbance, psychotic disturbance, mood disturbance, or anxiety, unspecified dementia severity, unspecified timing of dementia onset (HCC) Plan- - Continue home medications PH (benign prostatic hyperplasia) - Hold tamsulosin given orthostatic hypotension Medication Reconciliation: Completed Medication and Non-Pharmacologic VTE Prophylaxis/Anticoagulants VTE Prophylaxis: VTE prophylaxis appropriate Disposition: To be determined Plan of care discussed with Provider, RN, Patient POA SON - Would Like Updates on Father's Condition SIGNATURE: Khang Mar MD PATIENT NAME: Homero Mei DATE: September 09, 2024 TIME: 8:40 [facility] [id number] Telephone encounter Note* Telephone Encounter - Skylar Campoverde MD - 09/08/2024 2:20 PM EDT Hospital Medicine Transfer Received page for transfer request from [facility] to [facility]: Homero Mei is 78 year old male with CAD s/p CABG 03/15, A-fib on Eliquis presented to [facility] with rectal bleeding. Had a colonoscopy with Dr. Jones on 09/01/2024 where polyps were removed. Patient has been taking his Eliquis. As per the ER current vitals are stable with SBP in 130s, heart rate in 80s, hemoglobin was 9.1. Reason for transfer: GI bleed Accepted to hospital medicine service at [facility] Skylar Campoverde MD 2:20 PM [facility] Work Phone: [phone] 954-662507-21-2025 Miscellaneous Notes* Telephone Encounter - Skylar Campoverde MD - 09/08/2024 2:20 PM EDT Hospital Medicine Transfer Received page for transfer request from [facility] to [facility]: Homero Mei is 78 year old male with CAD s/p CABG 03/15, A-fib on Eliquis presented to [facility] with rectal bleeding. Had a colonoscopy with Dr. Jones on 09/01/2024 where polyps were removed. Patient has been taking his Eliquis. As per the ER current vitals are stable with SBP in 130s, heart rate in 80s, hemoglobin was 9.1. Reason for transfer: GI bleed Accepted to hospital medicine service at [facility] Skylar Campoverde MD 2:20 PM documented in this encounterAcmc Healthcare System07-21-2025 Note* Exam Date Time Procedure Performing Provider Status 09/08/24 10:[address] Abd/Pelvis w/ IV Contrast Only AMALIA DYE MD; Auth (Verified) [id number] ORIGINAL EXAMINATION: CT OF THE ABDOMEN AND PELVIS WITH CONTRAST 09/08/2024 10:54 am TECHNIQUE: CT of the abdomen and pelvis was performed with the administration of intravenous contrast. Multiplanar reformatted images are provided for review. Automated exposure control, iterative reconstruction, and/or weight based adjustment of the mA/kV was utilized to reduce the radiation dose to as low as reasonably achievable. COMPARISON: None. HISTORY: ORDERING SYSTEM PROVIDED HISTORY: Reason for Exam: GI bleeding FINDINGS: Mild degenerative changes are noted in the spine. There are marked degenerative changes at the right hip and mild similar changes at the left hip. No acute osseous abnormality identified. The lung bases are unremarkable. Small scattered liver cysts are present. No other liver finding. The gallbladder is grossly normal. The spleen, adrenal glands and pancreas are unremarkable. Small scattered renal cysts are present. No other kidney finding. No adenopathy, free air or free fluid is visible. The urinary bladder is grossly normal. Moderate to marked diverticulosis is present at the sigmoid and left colon, without evidence for diverticulitis. No other GI tract abnormality is visible. No additional contributory finding with the exception of a small fat containing right inguinal hernia. IMPRESSION: No acute abnormality identified. Diverticulosis without diverticulitis. Interpreted by: Amalia Dye MD Preliminary Report By: Amalia Dye MD Electronically signed By Amalia Dye MD Dictated Date: 09/08/2024 11:02:23 AM Prelim Date: 09/08/2024 11:07:12 AM Sign Date: 09/08/2024 11:07:12 AM Ordering Provider: HERSON MONCADA [facility]07-21-2025 Note* Exam Date Time Procedure Performing Provider Status 09/08/24 10:19 AM XR Chest 1 View KOBE PIKE DO; Auth (Verified) [id number] ORIGINAL EXAMINATION: ONE XRAY VIEW OF THE CHEST09/08/2024 10:20 am COMPARISON: None available at time of dictation. HISTORY: ORDERING SYSTEM PROVIDED HISTORY: Reason for Exam: hypotension FINDINGS: There is slight cardiomegaly present on exam. Sternotomy wires and sternal hardware are visualized. There is an electronic device overlying the left thorax. No focal consolidation or pulmonary edema. No pneumothorax or pleural effusion. No acute osseous abnormalities. IMPRESSION: No acute radiographic findings. I have personally reviewed the images of this examination and agree with the resident's findings and interpretation. Interpreted by: Kobe Pike Preliminary Report By: Dhara Barrow Electronically signed By Kobe Pike Dictated Date: 09/08/2024 10:28:53 AM Prelim Date: 09/08/2024 10:36:22 AM Sign Date: 09/08/2024 10:36:22 AM Ordering Provider: HERSON MONCADA [facility]07-21-2025 Note* Exam Date Time Procedure Performing Provider Status 09/08/24 9:26 AM EKG [ED AO] - CV HERSON MONCADA DO; Au th (Verified) ECG Final Report Sinus rhythm Ventricular premature complex Inferior infarct, old Anterior infarct, old Electronic Signature: HERSON MONCADA DO 09/08/2024 09:48:29 [facility]07-14-2025 Telephone encounter Note* Telephone Encounter - Angi Montana RN - 09/01/2024 12:49 PM EDT Called and left a voicemail for the Salome Chase to call back and ask for a nurse to receivethe providers message. Angi Montana RN [facility]07-14-2025 Miscellaneous Notes* Telephone Encounter - Angi Montana RN - 09/01/2024 12:49 PM EDT Called and left a voicemail for the Salome with [facility] to call back and ask for a nurse to receivethe providers message. Angi Montana RN * Telephone Encounter - Lenin Chaudhary MD - 09/01/2024 12:28 PM EDT With his history of CAD, he would definitely benefit from being on an MORE inhibitor like lisinopril. We were worried about his BP being too low, which is why I was cutting back on his dosage of lasix. Has his BP been checked over the weekend? If so, what were the readings? * Telephone Encounter - Marissa Black RN - 09/01/2024 11:11 AM EDT Salome from [facility] calls to let provider know that when patient returned from rehab at [facility] March 22, 2024 it was not on his medication list from [facility]. She reports lisinopril was stopped while in rehab but she is not certain which provider stopped the lisinopril. Per OV notes 03/24/2024 imelda Caroline Barryelif with Cardiothoracic Surgery: HTN - SBP controlled at Assisted Living facility with most SBP 90-140 mmHg over past 48 horus - Labile BP initially with BB at 25mg TID --> decreased 03/07 to 12.5mg TID - Home regimen includes 40mg of lisinopril, 25mg toprolol XL daily Marissa Black RN * Telephone Encounter - Angi Montana RN - 09/01/2024 10:30 AM EDT Eden from [facility] called and is notified of providers message and instructions. She voices understanding. She is going to call back once she finds out who discontinued the Lisinopril. She states she remembers that it was around the time of his Cardiac procedure. Called Libra with [facility] [place] with the updated instructions on the Lasix. Angi Montana RN * Telephone Encounter - Lenin Chaudhary MD - 09/01/2024 8:03 AM EDT I have no record at all of his lisinopril being discontinued. Who ordered it to be stopped in February? If he has been taking lasix 40 mg daily, then I would reduce his dose to 20 mg daily. I will update his med list. * Telephone Encounter - Alyssa Valentin LPN - 08/29/2024 2:18 PM EDT Rufina from [facility] calling patient returned from his appt today and on his after visit notes saysto continue current Lisinopril dose. Rufina said patient has been off Lisinopril since February. Next question says Furosemide 40 mg twice daily to 20 mg twice daily. Rufina said patient has been on Furosemide 40 mg once daily since end of April. Asking what does PCP want to do with these medications? Please advise [facility] Telephone encounter Note * Telephone Encounter - Lenin Chaudhary MD - 09/01/2024 12:28 PM EDT With his history of CAD, he would definitely benefit from being on an MORE inhibitor like lisinopril. We were worried about his BP being too low, which is why I was cutting back on his dosage of lasix. Has his BP been checked over the weekend? If so, what were the readings? [facility]07-14-2025 Telephone encounter Note* Telephone Encounter - Marissa Black RN - 09/01/2024 11:11 AM EDT Salome from [facility] calls to let provider know that when patient returned from rehab at [facility] March 22, 2024 it was not on his medication list from [facility]. She reports lisinopril was stopped while in rehab but she is not certain which provider stopped the lisinopril. Per OV notes 03/24/2024 fro Caroline Orlando with Cardiothoracic Surgery: HTN - SBP controlled at Assisted Living facility with most SBP 90-140 mmHg over past 48 horus - Labile BP initially with BB at 25mg TID --> decreased 03/07 to 12.5mg TID - Home regimen includes 40mg of lisinopril, 25mg toprolol XL daily Marissa Black RN [facility]07-14-2025 Telephone encounter Note* Telephone Encounter - Angi Montana RN - 09/01/2024 10:30 AM EDT Eden from [facility] called and is notified of providers message and instructions. She voices understanding. She is going to call back once she finds out who discontinued the Lisinopril. She states she remembers that it was around the time of his Cardiac procedure. Called Libra with [facility] with the updated instructions on the Lasix. Angi Montana RN [facility]07-14-2025 Attending History and physical note* Francisca Vazquez MD - 09/01/2024 8:15 AM EDT UPDATED PROCEDURAL SEDATION HISTORY AND PHYSICAL EXAMINATION SERVICE DATE: 09/01/2024 SERVICE TIME: 9:03 AM PHYSICAL EXAM MUST BE COMPLETED ON ADMISSION PROCEDURE: Procedure Indications: The History and Physical (completed in the past 30 days) has been reviewed and the patient has beenexamined. The contents accurately reflect the patient's condition with the following additions or revisions since the H&P was completed. ASA Class: ASA Class: Patient with mild systemic disease Examination indicates no changes. AIRWAY: Mouth opening greater than 3 fingerbreadths: Yes Neck Full Range of Motion: Yes LUNGS: Lungs clear to auscultation CARDIAC: Regular rhythm,Regular rate Provisional Diagnosis/Treatment Plan: history of polyps - colonoscopy Sedation Goal: Moderate This H&P can be found in the attached. SIGNATURE: Francisca Vazquez MD PATIENT NAME: Homero Mei DATE: September 01, 2024 TIME: 9:03 AM Source Note - Francisca Vazquez MD - 09/01/2024 8:15 AM EDT HISTORY AND PHYSICAL Homero Mei : 1945 REFERRING PHYSICIAN: No referring provider defined for this encounter. CHIEF COMPLAINT: Patient presents with: Consult: colonoscopy HPI: Homero is a 78 year old male referred for endoscopy. Homero notes due for colon cancer screening- hx of polyps (2020). Homero denies abdominal pain. Homero denies diarrhea. Homero notes occasional constipation. -relieved with stool softeners Homero denies a change in bowel habits. Homero denies melena. -notes dark stools from iron Homero denies bright red blood per rectum. Homero denies hemorrhoids. Homero denies family history of colon issues. Homero denies heartburn. Homero denies dysphagia. Homero notes a history of ulcers/ peptic ulcer disease. -currently following with Dr. Diaz Homero underwent CABG x 3 02/[address] Iqbal- [facility] cardiology S/P procedure he was noted to have A.Fib & bilateral edema. Edema has improved with lasix, unsure if patient is still taking eliquis?? Other medical history is significant for CHRISTIANO, alzheimer's, PAM and DDD. Homero has undergone prior endoscopy. Last colonoscopy was 04/[address] Stock at [facility]. Sedation:Midazolam 6 mg IV, Fentanyl 125 micrograms IV Impression: - One 40 mm polyp in the cecum, removed with mucosal resection. Resected and retrieved. Clip was placed. - Two 5 mm polyps in the transverse colon and in the ascending colon, removed with a cold snare. Resected and retrieved. - Mucosal resection was performed. Resection and retrieval were complete. CONVERTED FINAL DIAGNOSIS 1. Hepatic flexure, polypectomy x2 (A) - Single piece of colonic mucosa with focal hyperplastic changes. - No evidence of adenoma. 2. Cecum, polypectomy (B) - Fragments of tubular adenoma. TP/valeri 04/28/2020 Homero underwent EGD for anemia with Dr. Diaz 03/31/24. Sedation: MAC Impressions : - Normal esophagus. - Non-bleeding gastric ulcer with no stigmata of bleeding. Biopsied. - Normal first portion of the duodenum. CURRENT MEDICATIONS Current Outpatient Medications Medication Sig ELIQUIS 5 mg tab(s) Take 5 mg by mouth two times a day. lisinopril (ZESTRIL) 40 mg tablet Take 40 mg by mouth once daily. ferrous sulfate 325 mg (65 mg iron) tablet Take 325 mg by mouth every 24 hours. potassium chloride ER (KLOR-CON) 20 mEq tablet Take 1 tablet by mouth two times a day. furosemide (LASIX) 40 mg tablet Take 1 tablet by mouth two times a day. senna-docusate (SENNA WITH DOCUSATE SODIUM) 8.6-50 mg per tablet Take 1 tablet by mouth once daily. senna-docusate (SENNA WITH DOCUSATE SODIUM) 8.6-50 mg per tablet Take 1 tablet by mouth once daily as needed for constipation. acetaminophen (TYLENOL) 500 mg tablet Take 2 tablets by mouth every 8 hours as needed for pain. aspirin, enteric coated (ASPIRIN, ENTERIC COATED) 81 mg EC tablet Take 1 tablet by mouth once daily. metoprolol tartrate, short acting, (LOPRESSOR) 25 mg tablet Take 0.5 tablets by mouth two times a day. Hold for HR <60 and/or SBP <100 lactobacillus combination no.4 (PROBIOTIC) 3 billion cell cap Take 1 capsule by mouth once daily. docusate sodium (COLACE) 100 mg capsule Take 1 capsule by mouth two times a day as needed for constipation. melatonin 3 mg capsules Take 1 capsule by mouth at bedtime as needed for insomnia. tamsulosin (FLOMAX) 0.4 mg Take 1 capsule by mouth two times a day. ascorbic acid, vitamin C, (VITAMIN C) 500 mg tablet Take 1 tablet by mouth once daily. folic acid 1 mg tablet Take 1 tablet by mouth once daily. magnesium oxide (MAG-OX) 400 mg (241.3 mg magnesium) tablet Take 1 tablet by mouth once daily. polyethylene glycol 3350 17 gram packet Take 1 Packet by mouth once daily. Dissolve dose in 4 - 8 ounces of liquid and take as directed. fluticasone (FLONASE) 50 mcg/actuation nasal spray Use 2 Sprays in each nostril once daily as needed. cholecalciferol (VITAMIN D3) 1,000 unit tab tablet Take by mouth once daily. Taking 25 MCG daily donepezil (ARICEPT) 10 mg tablet Take 1 tablet by mouth daily with breakfast. atorvastatin (LIPITOR) 40 mg tablet Take 1 tablet by mouth once daily. vit C/E/Zn/coppr/lutein/zeaxan (PRESERVISION AREDS-2 ORAL) Take 1 capsule by mouth two times a day. latanoprost (XALATAN) 0.005 % ophthalmic solution Use 1 Drop in both eyes daily at bedtime. cyanocobalamin (VITAMIN B-12) 1,000 mcg tab Take 1 tablet by mouth once daily. pantoprazole DR (PROTONIX) 40 mg tablet Take 40 mg by mouth once daily. No current facility-administered medications for this visit. ALLERGIES: Patient has no known allergies. PAST MEDICAL HISTORY PAST MEDICAL HISTORY Diagnosis Date Alzheimer's dementia without behavioral disturbance, psychotic disturbance, mood disturbance, or anxiety, unspecified dementia severity, unspecified timing of dementia onset (HCC) Ascending aorta dilatation (HCC) borderline Benign prostatic hyperplasia with urinary frequency Bilateral carpal tunnel syndrome s/p release on right Bilateral inguinal hernia s/p mesh BPH (benign prostatic hyperplasia) CAD (coronary artery disease) 12/21/2023 abnormal stress test. moderate ischemia in RCA Current use of correction anticoagulation DDD (degenerative disc disease), lumbar resolved after discectomy Depression Deviated septum s/p septoplasty Glaucoma Hyperlipidemia Insomnia Iron deficiency anemia Irritable bowel syndrome 08/1997 improved Lipoma of neck left posterior neck CHRISTIANO (obstructive sleep apnea) [address] 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 Iqbal on 02/28/24 Scalp psoriasis Unspecified essential hypertension Upper GI bleed 05/2023 Vitamin D insufficiency PAST SURGICAL HISTORY PAST SURGICAL HISTORY Procedure Laterality Date BACK SURGERY HX CABG (3) VEIN GRAFTS & ARTERIAL GRAFT(S) 02/28/2024 CABG x 3 (Scales-LAD, SVG- PDA, SVG- OM1) with Dr. Iqbal on 02/28/24 COLON SURGERY HX COLONOSCOPY FLX DX W/COLLJ SPEC WHEN PFRMD , 11/19, 01/24, 01/29 COLONOSCOPY FLX DX W/COLLJ SPEC WHEN PFRMD 03/22/2015 Colonoscopy-repeat 5 years COLONOSCOPY FLX DX W/COLLJ SPEC WHEN PFRMD 11/23/2020 COLONOSCOPY GEN ANES 04/12/2020 Repeat in 1 year COLONOSCOPY GEN ANES 04/26/2020 3 polyps removed. 40 mm, 5 mm, 5mm. repeat in 6 months. DISKECTOMY, LUMBAR, SINGLE SP 2006 HERNIA REPAIR HX mesh INGUINAL HERNIA REPAIR HX 07/19/2010 bilateral inguinal hernia repair with mesh NEUROPLASTY &/TRANSPOS MEDIAN NRV CARPAL TUNNE Right 03/26/2015 Carpal tunnel decomp right PAST SURGICAL HISTORY OF Left 04/10/2019 arthroscopic knee for torn meniscus RHINP PRIM LAT&ALAR CRTLGS&/ELVTN NASAL TI 2009 Rhinoplasty SKIN BIOPSY HX FAMILY HISTORY FAMILY HISTORY Problem Relation Age of Onset Heart Mother CHF Hypertension Mother Stroke Father Hypertension Father SOCIAL HISTORY Social History Tobacco Use Smoking status: Never Smokeless tobacco: Never Vaping Use Vaping status: Never Used Substance Use Topics Alcohol use: Not Currently Drug use: Never REVIEW OF SYMPTOMS: The review of systems data was entered by the nurse and reviewed by me SEE NURSING NOTE PHYSICAL EXAMINATION: General: The patient is 78 year old, male well nourished, well hydrated in no acute distress. The patient is oriented to time, place, and person. VITALS: Blood pressure 108/69, pulse 65, weight 87.4 kg (192 lb 9.6 oz), SpO2 96%. Body mass index is 26.31 kg/m . HEENT: Normal cephalic, ataumatic, pupils are equally round, sclera are anicteric, mucous membranesare moist, oropharynx is clear. Neck has no masses, asymmetry or lymphadenopathy. Respiratory: Clear to auscultation and percussion. Normal respiratory excursion and pattern. Cardiac: Examination is regular rate and rhythm. Normal S1/S2 Abdominal exam: Soft, nontender, with no palpable masses. No hepatosplenomegaly. No palpable hernias. Extremities: no clubbing, cyanosis or edema. No adenopathy. LABORATORY VALUES: As Noted RADIOLOGIC STUDIES: As Noted Assessment IMPRESSION: screen for colon cancer, history of colon polyps PLAN: I have reviewed my findings with the surgeon. Will plan for lower endoscopy. We discussed therisks and benefits of the planned endoscopy. I have informed the patient that complications can occur including failure to complete the endoscopy and perforation. Homero had the opportunity to ask questions concerning the planned endoscopy. My staff has also explained the procedure to the patient in understandable terms and has given the patient printed material concerning the procedure. Homero freely consents to surgery. I plan to use MiraLAX bowel preparation I have explained to the patient the difference between IV conscious sedation and MAC anesthesia - and I have offered either, according to the patient's wishes. I have explained that with IV conscioussedation there is no anesthesia provider available and therefore there is a limitation of the amount of IV medications that can be given and that the patient may wake up in the middle of the procedure and/or experience pain/discomfort during the procedure. Further discussion was done and the patient was given the opportunity to ask questions and all questions were answered. MAC anesthesia d/t recent CABG. At this time Homero is on Eliquis s/p CABG. 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 If Eliquis is d/c'd I instructed patient/family to let me know and he would move his endoscopy up since at this time Dr. Vazquez is scheduling into July. Homero was counseled that if there are changes in his/her medical condition, to let the office knowif surgery should proceed. If there are changes in patient's medical condition from time of this encounter to the day of the procedure that preclude anesthesia, patient may have procedure cancelled for patient's safety. Diagnoses: (Z12.11) Screen for colon cancer (primary encounter diagnosis) (Z86.0100) History of colonic polyps Portions of this documentation were copied and pasted from previous office visit notes in order to provide a cohesive continuity of the history. The note has been reviewed and edited and updated as necessary. Melani Curtis APRN.POLISHING MACHINE TENDER Note Details Progress Notes Genesis Cao LPN (LICENSED NURSE) REVIEW OF SYSTEMS: General: The patient denies fatigue, denies weight loss, denies weight gain, denies feeling hot, and denies feelings of cold. Eyes: The patient NOTES glaucoma, denies eye injury/surgery, wears glasses or contacts. Ear/Nose/Throat: The patient denies allergies, denies hayfever, denies ear infections, and denies bloody noses. Cardiovascular: The patient denies chest pain, NOTES heart disease, NOTES high blood pressure,denies cardiac stent, denies prior heart attack, NOTES irregular heart beat, NOTES high cholesterol, denies poor circulation, NOTES heart failure, other cardiac issues, denies claudication, denies cold feet, denies peripheral arterial stent. Respiratory: The patient denies tuberculosis, denies pneumonia, denies frequent cough, denies pulmonary embolism, denies shortness of breath, and denies coughing up blood. Gastrointestinal: The patient denies difficulty swallowing, denies acid reflux, NOTES ulcers, denies vomiting, denies jaundice/hepatitis, denies gallbladder problems, denies black or tarry stools, denies hemorrhoids, denies bleeding from rectum, denies diverticulitis, denies constipation, denies diarrhea, denies loss of stool control, and denies hernias. Kidney/Bladder: The patient denies kidney stones, denies urine infections, and denies bloody urine. Skin: The patient denies a history of skin cancer, denies bleeding/changing moles, and denies a history of skin rash. Neurologic: The patient denies a history of epilepsy/convulsions, denies headaches, denies head/spinal injuries, and denies stroke/TIA. Psychiatric: The patient denies psychiatric medications, NOTES depression, and denies voices, denies substance abuse. Endocrine: The patient denies thyroid disorders, denies diabetes, and denies hormonal problems. Hematologic: The patient denies a history of bruising, denies bleeding, and NOTES anemia, denies blood clots. Infections: The patient denies a history of measles and mumps, denies rheumatic fever, and denies sexually transmitted diseases. Musculoskeletal: The patient denies back pain/injury, denies back problems, denies sciatica, deniesknee/foot trouble, denies arthritis, or denies gout. When was patient's last Mammogram screening? N/A Last Colonoscopy: 04/26/2020 Genesis Cao LPN [facility] Work Phone: [phone] History and physical note* Francisca Vazquez MD - 09/01/2024 8:15 AM EDT HISTORY AND PHYSICAL Homero Ruiz Hamida : 1945 REFERRING PHYSICIAN: No referring provider defined for this encounter. CHIEF COMPLAINT: Patient presents with: Consult: colonoscopy HPI: Homero is a 78 year old male referred for endoscopy. Homero notes due for colon cancer screening- hx of polyps (2020). Homero denies abdominal pain. Homero denies diarrhea. Homero notes occasional constipation. -relieved with stool softeners Homero denies a change in bowel habits. Homero denies melena. -notes dark stools from iron Homero denies bright red blood per rectum. Homero denies hemorrhoids. Homero denies family history of colon issues. Homero denies heartburn. Homero denies dysphagia. Homero notes a history of ulcers/ peptic ulcer disease. -currently following with Dr. Diaz Homero underwent CABG x 3 02/[address] Iqbal- [facility] cardiology S/P procedure he was noted to have A.Fib & bilateral edema. Edema has improved with lasix, unsure if patient is still taking eliquis?? Other medical history is significant for CHRISTIANO, alzheimer's, PAM and DDD. Homero has undergone prior endoscopy. Last colonoscopy was 04/[address] Gorgun at [facility]. Sedation:Midazolam 6 mg IV, Fentanyl 125 micrograms IV Impression: - One 40 mm polyp in the cecum, removed with mucosal resection. Resected and retrieved. Clip was placed. - Two 5 mm polyps in the transverse colon and in the ascending colon, removed with a cold snare. Resected and retrieved. - Mucosal resection was performed. Resection and retrieval were complete. CONVERTED FINAL DIAGNOSIS 1. Hepatic flexure, polypectomy x2 (A) - Single piece of colonic mucosa with focal hyperplastic changes. - No evidence of adenoma. 2. Cecum, polypectomy (B) - Fragments of tubular adenoma. TP/ka 04/28/2020 Homero underwent EGD for anemia with Dr. Diaz 03/31/24. Sedation: MAC Impressions : - Normal esophagus. - Non-bleeding gastric ulcer with no stigmata of bleeding. Biopsied. - Normal first portion of the duodenum. CURRENT MEDICATIONS Current Outpatient Medications Medication Sig ELIQUIS 5 mg tab(s) Take 5 mg by mouth two times a day. lisinopril (ZESTRIL) 40 mg tablet Take 40 mg by mouth once daily. ferrous sulfate 325 mg (65 mg iron) tablet Take 325 mg by mouth every 24 hours. potassium chloride ER (KLOR-CON) 20 mEq tablet Take 1 tablet by mouth two times a day. furosemide (LASIX) 40 mg tablet Take 1 tablet by mouth two times a day. senna-docusate (SENNA WITH DOCUSATE SODIUM) 8.6-50 mg per tablet Take 1 tablet by mouth once daily. senna-docusate (SENNA WITH DOCUSATE SODIUM) 8.6-50 mg per tablet Take 1 tablet by mouth once daily as needed for constipation. acetaminophen (TYLENOL) 500 mg tablet Take 2 tablets by mouth every 8 hours as needed for pain. aspirin, enteric coated (ASPIRIN, ENTERIC COATED) 81 mg EC tablet Take 1 tablet by mouth once daily. metoprolol tartrate, short acting, (LOPRESSOR) 25 mg tablet Take 0.5 tablets by mouth two times a day. Hold for HR <60 and/or SBP <100 lactobacillus combination no.4 (PROBIOTIC) 3 billion cell cap Take 1 capsule by mouth once daily. docusate sodium (COLACE) 100 mg capsule Take 1 capsule by mouth two times a day as needed for constipation. melatonin 3 mg capsules Take 1 capsule by mouth at bedtime as needed for insomnia. tamsulosin (FLOMAX) 0.4 mg Take 1 capsule by mouth two times a day. ascorbic acid, vitamin C, (VITAMIN C) 500 mg tablet Take 1 tablet by mouth once daily. folic acid 1 mg tablet Take 1 tablet by mouth once daily. magnesium oxide (MAG-OX) 400 mg (241.3 mg magnesium) tablet Take 1 tablet by mouth once daily. polyethylene glycol 3350 17 gram packet Take 1 Packet by mouth once daily. Dissolve dose in 4 - 8 ounces of liquid and take as directed. fluticasone (FLONASE) 50 mcg/actuation nasal spray Use 2 Sprays in each nostril once daily as needed. cholecalciferol (VITAMIN D3) 1,000 unit tab tablet Take by mouth once daily. Taking 25 MCG daily donepezil (ARICEPT) 10 mg tablet Take 1 tablet by mouth daily with breakfast. atorvastatin (LIPITOR) 40 mg tablet Take 1 tablet by mouth once daily. vit C/E/Zn/coppr/lutein/zeaxan (PRESERVISION AREDS-2 ORAL) Take 1 capsule by mouth two times a day. latanoprost (XALATAN) 0.005 % ophthalmic solution Use 1 Drop in both eyes daily at bedtime. cyanocobalamin (VITAMIN B-12) 1,000 mcg tab Take 1 tablet by mouth once daily. pantoprazole DR (PROTONIX) 40 mg tablet Take 40 mg by mouth once daily. No current facility-administered medications for this visit. ALLERGIES: Patient has no known allergies. PAST MEDICAL HISTORY PAST MEDICAL HISTORY Diagnosis Date Alzheimer's dementia without behavioral disturbance, psychotic disturbance, mood disturbance, or anxiety, unspecified dementia severity, unspecified timing of dementia onset (HCC) Ascending aorta dilatation (HCC) borderline Benign prostatic hyperplasia with urinary frequency Bilateral carpal tunnel syndrome s/p release on right Bilateral inguinal hernia s/p mesh BPH (benign prostatic hyperplasia) CAD (coronary artery disease) 12/21/2023 abnormal stress test. moderate ischemia in RCA Current use of correction anticoagulation DDD (degenerative disc disease), lumbar resolved after discectomy Depression Deviated septum s/p septoplasty Glaucoma Hyperlipidemia Insomnia Iron deficiency anemia Irritable bowel syndrome 08/1997 improved Lipoma of neck left posterior neck CHRISTIANO (obstructive sleep apnea) [address] 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 Iqbal on 02/28/24 Scalp psoriasis Unspecified essential hypertension Upper GI bleed 05/2023 Vitamin D insufficiency PAST SURGICAL HISTORY PAST SURGICAL HISTORY Procedure Laterality Date BACK SURGERY HX CABG (3) VEIN GRAFTS & ARTERIAL GRAFT(S) 02/28/2024 CABG x 3 (Scales-LAD, SVG- PDA, SVG- OM1) with Dr. Iqbal on 02/28/24 COLON SURGERY HX COLONOSCOPY FLX DX W/COLLJ SPEC WHEN PFRMD , 11/19, 01/24, 01/29 COLONOSCOPY FLX DX W/COLLJ SPEC WHEN PFRMD 03/22/2015 Colonoscopy-repeat 5 years COLONOSCOPY FLX DX W/COLLJ SPEC WHEN PFRMD 11/23/2020 COLONOSCOPY GEN ANES 04/12/2020 Repeat in 1 year COLONOSCOPY GEN ANES 04/26/2020 3 polyps removed. 40 mm, 5 mm, 5mm. repeat in 6 months. DISKECTOMY, LUMBAR, SINGLE SP 2005 HERNIA REPAIR HX mesh INGUINAL HERNIA REPAIR HX 07/19/2010 bilateral inguinal hernia repair with mesh NEUROPLASTY &/TRANSPOS MEDIAN NRV CARPAL TUNNE Right 03/26/2015 Carpal tunnel decomp right PAST SURGICAL HISTORY OF Left 04/10/2019 arthroscopic knee for torn meniscus RHINP PRIM LAT&ALAR CRTLGS&/ELVTN NASAL TI 2009 Rhinoplasty SKIN BIOPSY HX FAMILY HISTORY FAMILY HISTORY Problem Relation Age of Onset Heart Mother CHF Hypertension Mother Stroke Father Hypertension Father SOCIAL HISTORY Social History Tobacco Use Smoking status: Never Smokeless tobacco: Never Vaping Use Vaping status: Never Used Substance Use Topics Alcohol use: Not Currently Drug use: Never REVIEW OF SYMPTOMS: The review of systems data was entered by the nurse and reviewed by me SEE NURSING NOTE PHYSICAL EXAMINATION: General: The patient is 78 year old, male well nourished, well hydrated in no acute distress. The patient is oriented to time, place, and person. VITALS: Blood pressure 108/69, pulse 65, weight 87.4 kg (192 lb 9.6 oz), SpO2 96%. Body mass index is 26.31 kg/m . HEENT: Normal cephalic, ataumatic, pupils are equally round, sclera are anicteric, mucous membranesare moist, oropharynx is clear. Neck has no masses, asymmetry or lymphadenopathy. Respiratory: Clear to auscultation and percussion. Normal respiratory excursion and pattern. Cardiac: Examination is regular rate and rhythm. Normal S1/S2 Abdominal exam: Soft, nontender, with no palpable masses. No hepatosplenomegaly. No palpable hernias. Extremities: no clubbing, cyanosis or edema. No adenopathy. LABORATORY VALUES: As Noted RADIOLOGIC STUDIES: As Noted Assessment IMPRESSION: screen for colon cancer, history of colon polyps PLAN: I have reviewed my findings with the surgeon. Will plan for lower endoscopy. We discussed therisks and benefits of the planned endoscopy. I have informed the patient that complications can occur including failure to complete the endoscopy and perforation. Homero had the opportunity to ask questions concerning the planned endoscopy. My staff has also explained the procedure to the patient in understandable terms and has given the patient printed material concerning the procedure. Homero freely consents to surgery. I plan to use MiraLAX bowel preparation I have explained to the patient the difference between IV conscious sedation and MAC anesthesia - and I have offered either, according to the patient's wishes. I have explained that with IV conscioussedation there is no anesthesia provider available and therefore there is a limitation of the amount of IV medications that can be given and that the patient may wake up in the middle of the procedure and/or experience pain/discomfort during the procedure. Further discussion was done and the patient was given the opportunity to ask questions and all questions were answered. MAC anesthesia d/t recent CABG. At this time Homero is on Eliquis s/p CABG. 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 If Eliquis is d/c'd I instructed patient/family to let me know and he would move his endoscopy up since at this time Dr. Vazquez is scheduling into July. Homero was counseled that if there are changes in his/her medical condition, to let the office knowif surgery should proceed. If there are changes in patient's medical condition from time of this encounter to the day of the procedure that preclude anesthesia, patient may have procedure cancelled for patient's safety. Diagnoses: (Z12.11) Screen for colon cancer (primary encounter diagnosis) (Z86.0100) History of colonic polyps Portions of this documentation were copied and pasted from previous office visit notes in order to provide a cohesive continuity of the history. The note has been reviewed and edited and updated as necessary. Melani Curtis APRN.POLISHING MACHINE TENDER Note Details Progress Notes Genesis Cao LPN (LICENSED NURSE) REVIEW OF SYSTEMS: General: The patient denies fatigue, denies weight loss, denies weight gain, denies feeling hot, and denies feelings of cold. Eyes: The patient NOTES glaucoma, denies eye injury/surgery, wears glasses or contacts. Ear/Nose/Throat: The patient denies allergies, denies hayfever, denies ear infections, and denies bloody noses. Cardiovascular: The patient denies chest pain, NOTES heart disease, NOTES high blood pressure,denies cardiac stent, denies prior heart attack, NOTES irregular heart beat, NOTES high cholesterol, denies poor circulation, NOTES heart failure, other cardiac issues, denies claudication, denies cold feet, denies peripheral arterial stent. Respiratory: The patient denies tuberculosis, denies pneumonia, denies frequent cough, denies pulmonary embolism, denies shortness of breath, and denies coughing up blood. Gastrointestinal: The patient denies difficulty swallowing, denies acid reflux, NOTES ulcers, denies vomiting, denies jaundice/hepatitis, denies gallbladder problems, denies black or tarry stools, denies hemorrhoids, denies bleeding from rectum, denies diverticulitis, denies constipation, denies diarrhea, denies loss of stool control, and denies hernias. Kidney/Bladder: The patient denies kidney stones, denies urine infections, and denies bloody urine. Skin: The patient denies a history of skin cancer, denies bleeding/changing moles, and denies a history of skin rash. Neurologic: The patient denies a history of epilepsy/convulsions, denies headaches, denies head/spinal injuries, and denies stroke/TIA. Psychiatric: The patient denies psychiatric medications, NOTES depression, and denies voices, denies substance abuse. Endocrine: The patient denies thyroid disorders, denies diabetes, and denies hormonal problems. Hematologic: The patient denies a history of bruising, denies bleeding, and NOTES anemia, denies blood clots. Infections: The patient denies a history of measles and mumps, denies rheumatic fever, and denies sexually transmitted diseases. Musculoskeletal: The patient denies back pain/injury, denies back problems, denies sciatica, deniesknee/foot trouble, denies arthritis, or denies gout. When was patient's last Mammogram screening? N/A Last Colonoscopy: 04/26/2020 Genesis Cao LPN [facility]07-14-2025 History and physical note* Francisca Vazquez MD - 09/01/2024 8:15 AM EDT UPDATED PROCEDURAL SEDATION HISTORY AND PHYSICAL EXAMINATION SERVICE DATE: 09/01/2024 SERVICE TIME: 9:03 AM PHYSICAL EXAM MUST BE COMPLETED ON ADMISSION PROCEDURE: Procedure Indications: The History and Physical (completed in the past 30 days) has been reviewed and the patient has beenexamined. The contents accurately reflect the patient's condition with the following additions or revisions since the H&P was completed. ASA Class: ASA Class: Patient with mild systemic disease Examination indicates no changes. AIRWAY: Mouth opening greater than 3 fingerbreadths: Yes Neck Full Range of Motion: Yes LUNGS: Lungs clear to auscultation CARDIAC: Regular rhythm,Regular rate Provisional Diagnosis/Treatment Plan: history of polyps - colonoscopy Sedation Goal: Moderate This H&P can be found in the attached. SIGNATURE: Francisca Vazquez MD PATIENT NAME: Homero Mei DATE: September 01, 2024 TIME: 9:03 AM Source Note - Francisca Vazquez MD - 09/01/2024 8:15 AM EDT HISTORY AND PHYSICAL Homero Mei : 1945 REFERRING PHYSICIAN: No referring provider defined for this encounter. CHIEF COMPLAINT: Patient presents with: Consult: colonoscopy HPI: Homero is a 78 year old male referred for endoscopy. Homero notes due for colon cancer screening- hx of polyps (2020). Homero denies abdominal pain. Homero denies diarrhea. Homero notes occasional constipation. -relieved with stool softeners Homero denies a change in bowel habits. Homero denies melena. -notes dark stools from iron Homero denies bright red blood per rectum. Homero denies hemorrhoids. Homero denies family history of colon issues. Homero denies heartburn. Homero denies dysphagia. Homero notes a history of ulcers/ peptic ulcer disease. -currently following with Dr. Diaz Homero underwent CABG x 3 02/[address] Iqbal- [facility] S/P procedure he was noted to have A.Fib & bilateral edema. Edema has improved with lasix, unsure if patient is still taking eliquis?? Other medical history is significant for CHRISTIANO, alzheimer's, PAM and DDD. Homero has undergone prior endoscopy. Last colonoscopy was 04/[address] Stock [facility]. Sedation:Midazolam 6 mg IV, Fentanyl 125 micrograms IV Impression: - One 40 mm polyp in the cecum, removed with mucosal resection. Resected and retrieved. Clip was placed. - Two 5 mm polyps in the transverse colon and in the ascending colon, removed with a cold snare. Resected and retrieved. - Mucosal resection was performed. Resection and retrieval were complete. CONVERTED FINAL DIAGNOSIS 1. Hepatic flexure, polypectomy x2 (A) - Single piece of colonic mucosa with focal hyperplastic changes. - No evidence of adenoma. 2. Cecum, polypectomy (B) - Fragments of tubular adenoma. TP/ka 04/28/2020 Homero underwent EGD for anemia with Dr. Diaz 03/31/24. Sedation: MAC Impressions : - Normal esophagus. - Non-bleeding gastric ulcer with no stigmata of bleeding. Biopsied. - Normal first portion of the duodenum. CURRENT MEDICATIONS Current Outpatient Medications Medication Sig ELIQUIS 5 mg tab(s) Take 5 mg by mouth two times a day. lisinopril (ZESTRIL) 40 mg tablet Take 40 mg by mouth once daily. ferrous sulfate 325 mg (65 mg iron) tablet Take 325 mg by mouth every 24 hours. potassium chloride ER (KLOR-CON) 20 mEq tablet Take 1 tablet by mouth two times a day. furosemide (LASIX) 40 mg tablet Take 1 tablet by mouth two times a day. senna-docusate (SENNA WITH DOCUSATE SODIUM) 8.6-50 mg per tablet Take 1 tablet by mouth once daily. senna-docusate (SENNA WITH DOCUSATE SODIUM) 8.6-50 mg per tablet Take 1 tablet by mouth once daily as needed for constipation. acetaminophen (TYLENOL) 500 mg tablet Take 2 tablets by mouth every 8 hours as needed for pain. aspirin, enteric coated (ASPIRIN, ENTERIC COATED) 81 mg EC tablet Take 1 tablet by mouth once daily. metoprolol tartrate, short acting, (LOPRESSOR) 25 mg tablet Take 0.5 tablets by mouth two times a day. Hold for HR <60 and/or SBP <100 lactobacillus combination no.4 (PROBIOTIC) 3 billion cell cap Take 1 capsule by mouth once daily. docusate sodium (COLACE) 100 mg capsule Take 1 capsule by mouth two times a day as needed for constipation. melatonin 3 mg capsules Take 1 capsule by mouth at bedtime as needed for insomnia. tamsulosin (FLOMAX) 0.4 mg Take 1 capsule by mouth two times a day. ascorbic acid, vitamin C, (VITAMIN C) 500 mg tablet Take 1 tablet by mouth once daily. folic acid 1 mg tablet Take 1 tablet by mouth once daily. magnesium oxide (MAG-OX) 400 mg (241.3 mg magnesium) tablet Take 1 tablet by mouth once daily. polyethylene glycol 3350 17 gram packet Take 1 Packet by mouth once daily. Dissolve dose in 4 - 8 ounces of liquid and take as directed. fluticasone (FLONASE) 50 mcg/actuation nasal spray Use 2 Sprays in each nostril once daily as needed. cholecalciferol (VITAMIN D3) 1,000 unit tab tablet Take by mouth once daily. Taking 25 MCG daily donepezil (ARICEPT) 10 mg tablet Take 1 tablet by mouth daily with breakfast. atorvastatin (LIPITOR) 40 mg tablet Take 1 tablet by mouth once daily. vit C/E/Zn/coppr/lutein/zeaxan (PRESERVISION AREDS-2 ORAL) Take 1 capsule by mouth two times a day. latanoprost (XALATAN) 0.005 % ophthalmic solution Use 1 Drop in both eyes daily at bedtime. cyanocobalamin (VITAMIN B-12) 1,000 mcg tab Take 1 tablet by mouth once daily. pantoprazole DR (PROTONIX) 40 mg tablet Take 40 mg by mouth once daily. No current facility-administered medications for this visit. ALLERGIES: Patient has no known allergies. PAST MEDICAL HISTORY PAST MEDICAL HISTORY Diagnosis Date Alzheimer's dementia without behavioral disturbance, psychotic disturbance, mood disturbance, or anxiety, unspecified dementia severity, unspecified timing of dementia onset (HCC) Ascending aorta dilatation (HCC) borderline Benign prostatic hyperplasia with urinary frequency Bilateral carpal tunnel syndrome s/p release on right Bilateral inguinal hernia s/p mesh BPH (benign prostatic hyperplasia) CAD (coronary artery disease) 12/21/2023 abnormal stress test. 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 Iqbal on 02/28/24 Scalp psoriasis Unspecified essential hypertension Upper GI bleed 05/2023 Vitamin D insufficiency PAST SURGICAL HISTORY PAST SURGICAL HISTORY Procedure Laterality Date BACK SURGERY HX CABG (3) VEIN GRAFTS & ARTERIAL GRAFT(S) 02/28/2024 CABG x 3 (Scales-LAD, SVG- PDA, SVG- OM1) with Dr. Iqbal on 02/28/24 COLON SURGERY HX COLONOSCOPY FLX DX W/COLLJ SPEC WHEN PFRMD , 11/19, 01/24, 01/29 COLONOSCOPY FLX DX W/COLLJ SPEC WHEN PFRMD 03/22/2015 Colonoscopy-repeat 5 years COLONOSCOPY FLX DX W/COLLJ SPEC WHEN PFRMD 11/23/2020 COLONOSCOPY GEN ANES 04/12/2020 Repeat in 1 year COLONOSCOPY GEN ANES 04/26/2020 3 polyps removed. 40 mm, 5 mm, 5mm. repeat in 6 months. DISKECTOMY, LUMBAR, SINGLE SP 2006 HERNIA REPAIR HX mesh INGUINAL HERNIA REPAIR HX 07/19/2010 bilateral inguinal hernia repair with mesh NEUROPLASTY &/TRANSPOS MEDIAN NRV CARPAL TUNNE Right 03/26/2015 Carpal tunnel decomp right PAST SURGICAL HISTORY OF Left 04/10/2019 arthroscopic knee for torn meniscus RHINP PRIM LAT&ALAR CRTLGS&/ELVTN NASAL TI 2009 Rhinoplasty SKIN BIOPSY HX FAMILY HISTORY FAMILY HISTORY Problem Relation Age of Onset Heart Mother CHF Hypertension Mother Stroke Father Hypertension Father SOCIAL HISTORY Social History Tobacco Use Smoking status: Never Smokeless tobacco: Never Vaping Use Vaping status: Never Used Substance Use Topics Alcohol use: Not Currently Drug use: Never REVIEW OF SYMPTOMS: The review of systems data was entered by the nurse and reviewed by me SEE NURSING NOTE PHYSICAL EXAMINATION: General: The patient is 78 year old, male well nourished, well hydrated in no acute distress. The patient is oriented to time, place, and person. VITALS: Blood pressure 108/69, pulse 65, weight 87.4 kg (192 lb 9.6 oz), SpO2 96%. Body mass index is 26.31 kg/m . HEENT: Normal cephalic, ataumatic, pupils are equally round, sclera are anicteric, mucous membranesare moist, oropharynx is clear. Neck has no masses, asymmetry or lymphadenopathy. Respiratory: Clear to auscultation and percussion. Normal respiratory excursion and pattern. Cardiac: Examination is regular rate and rhythm. Normal S1/S2 Abdominal exam: Soft, nontender, with no palpable masses. No hepatosplenomegaly. No palpable hernias. Extremities: no clubbing, cyanosis or edema. No adenopathy. LABORATORY VALUES: As Noted RADIOLOGIC STUDIES: As Noted Assessment IMPRESSION: screen for colon cancer, history of colon polyps PLAN: I have reviewed my findings with the surgeon. Will plan for lower endoscopy. We discussed therisks and benefits of the planned endoscopy. I have informed the patient that complications can occur including failure to complete the endoscopy and perforation. Homero had the opportunity to ask questions concerning the planned endoscopy. My staff has also explained the procedure to the patient in understandable terms and has given the patient printed material concerning the procedure. Homero freely consents to surgery. I plan to use MiraLAX bowel preparation I have explained to the patient the difference between IV conscious sedation and MAC anesthesia - and I have offered either, according to the patient's wishes. I have explained that with IV conscioussedation there is no anesthesia provider available and therefore there is a limitation of the amount of IV medications that can be given and that the patient may wake up in the middle of the procedure and/or experience pain/discomfort during the procedure. Further discussion was done and the patient was given the opportunity to ask questions and all questions were answered. MAC anesthesia d/t recent CABG. At this time Homero is on Eliquis s/p CABG. 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 If Eliquis is d/c'd I instructed patient/family to let me know and he would move his endoscopy up since at this time Dr. Vazquez is scheduling into July. Homero was counseled that if there are changes in his/her medical condition, to let the office knowif surgery should proceed. If there are changes in patient's medical condition from time of this encounter to the day of the procedure that preclude anesthesia, patient may have procedure cancelled for patient's safety. Diagnoses: (Z12.11) Screen for colon cancer (primary encounter diagnosis) (Z86.0100) History of colonic polyps Portions of this documentation were copied and pasted from previous office visit notes in order to provide a cohesive continuity of the history. The note has been reviewed and edited and updated as necessary. Melani Curtis APRN.POLISHING MACHINE TENDER Note Details Progress Notes Genesis Cao LPN (LICENSED NURSE) REVIEW OF SYSTEMS: General: The patient denies fatigue, denies weight loss, denies weight gain, denies feeling hot, and denies feelings of cold. Eyes: The patient NOTES glaucoma, denies eye injury/surgery, wears glasses or contacts. Ear/Nose/Throat: The patient denies allergies, denies hayfever, denies ear infections, and denies bloody noses. Cardiovascular: The patient denies chest pain, NOTES heart disease, NOTES high blood pressure,denies cardiac stent, denies prior heart attack, NOTES irregular heart beat, NOTES high cholesterol, denies poor circulation, NOTES heart failure, other cardiac issues, denies claudication, denies cold feet, denies peripheral arterial stent. Respiratory: The patient denies tuberculosis, denies pneumonia, denies frequent cough, denies pulmonary embolism, denies shortness of breath, and denies coughing up blood. Gastrointestinal: The patient denies difficulty swallowing, denies acid reflux, NOTES ulcers, denies vomiting, denies jaundice/hepatitis, denies gallbladder problems, denies black or tarry stools, denies hemorrhoids, denies bleeding from rectum, denies diverticulitis, denies constipation, denies diarrhea, denies loss of stool control, and denies hernias. Kidney/Bladder: The patient denies kidney stones, denies urine infections, and denies bloody urine. Skin: The patient denies a history of skin cancer, denies bleeding/changing moles, and denies a history of skin rash. Neurologic: The patient denies a history of epilepsy/convulsions, denies headaches, denies head/spinal injuries, and denies stroke/TIA. Psychiatric: The patient denies psychiatric medications, NOTES depression, and denies voices, denies substance abuse. Endocrine: The patient denies thyroid disorders, denies diabetes, and denies hormonal problems. Hematologic: The patient denies a history of bruising, denies bleeding, and NOTES anemia, denies blood clots. Infections: The patient denies a history of measles and mumps, denies rheumatic fever, and denies sexually transmitted diseases. Musculoskeletal: The patient denies back pain/injury, denies back problems, denies sciatica, deniesknee/foot trouble, denies arthritis, or denies gout. When was patient's last Mammogram screening? N/A Last Colonoscopy: 04/26/2020 Genesis Cao LPN * Francisca Vazquez MD - 09/01/2024 8:15 AM EDT HISTORY AND PHYSICAL Homero Mei : 1945 REFERRING PHYSICIAN: No referring provider defined for this encounter. CHIEF COMPLAINT: Patient presents with: Consult: colonoscopy HPI: Homero is a 78 year old male referred for endoscopy. Homero notes due for colon cancer screening- hx of polyps (2020). Homero denies abdominal pain. Homero denies diarrhea. Homero notes occasional constipation. -relieved with stool softeners Homero denies a change in bowel habits. Homero denies melena. -notes dark stools from iron Homero denies bright red blood per rectum. Homero denies hemorrhoids. Homero denies family history of colon issues. Homero denies heartburn. Homero denies dysphagia. Homero notes a history of ulcers/ peptic ulcer disease. -currently following with Dr. Diaz Homero underwent CABG x 3 02/[address] Iqbal- [facility] cardiology S/P procedure he was noted to have A.Fib & bilateral edema. Edema has improved with lasix, unsure if patient is still taking eliquis?? Other medical history is significant for CHRISTIANO, alzheimer's, PAM and DDD. Homero has undergone prior endoscopy. Last colonoscopy was 04/[address] Stock [facility]. Sedation:Midazolam 6 mg IV, Fentanyl 125 micrograms IV Impression: - One 40 mm polyp in the cecum, removed with mucosal resection. Resected and retrieved. Clip was placed. - Two 5 mm polyps in the transverse colon and in the ascending colon, removed with a cold snare. Resected and retrieved. - Mucosal resection was performed. Resection and retrieval were complete. CONVERTED FINAL DIAGNOSIS 1. Hepatic flexure, polypectomy x2 (A) - Single piece of colonic mucosa with focal hyperplastic changes. - No evidence of adenoma. 2. Cecum, polypectomy (B) - Fragments of tubular adenoma. TP/ka 04/28/2020 Homero underwent EGD for anemia with Dr. Diaz 03/31/24. Sedation: MAC Impressions : - Normal esophagus. - Non-bleeding gastric ulcer with no stigmata of bleeding. Biopsied. - Normal first portion of the duodenum. CURRENT MEDICATIONS Current Outpatient Medications Medication Sig ELIQUIS 5 mg tab(s) Take 5 mg by mouth two times a day. lisinopril (ZESTRIL) 40 mg tablet Take 40 mg by mouth once daily. ferrous sulfate 325 mg (65 mg iron) tablet Take 325 mg by mouth every 24 hours. potassium chloride ER (KLOR-CON) 20 mEq tablet Take 1 tablet by mouth two times a day. furosemide (LASIX) 40 mg tablet Take 1 tablet by mouth two times a day. senna-docusate (SENNA WITH DOCUSATE SODIUM) 8.6-50 mg per tablet Take 1 tablet by mouth once daily. senna-docusate (SENNA WITH DOCUSATE SODIUM) 8.6-50 mg per tablet Take 1 tablet by mouth once daily as needed for constipation. acetaminophen (TYLENOL) 500 mg tablet Take 2 tablets by mouth every 8 hours as needed for pain. aspirin, enteric coated (ASPIRIN, ENTERIC COATED) 81 mg EC tablet Take 1 tablet by mouth once daily. metoprolol tartrate, short acting, (LOPRESSOR) 25 mg tablet Take 0.5 tablets by mouth two times a day. Hold for HR <60 and/or SBP <100 lactobacillus combination no.4 (PROBIOTIC) 3 billion cell cap Take 1 capsule by mouth once daily. docusate sodium (COLACE) 100 mg capsule Take 1 capsule by mouth two times a day as needed for constipation. melatonin 3 mg capsules Take 1 capsule by mouth at bedtime as needed for insomnia. tamsulosin (FLOMAX) 0.4 mg Take 1 capsule by mouth two times a day. ascorbic acid, vitamin C, (VITAMIN C) 500 mg tablet Take 1 tablet by mouth once daily. folic acid 1 mg tablet Take 1 tablet by mouth once daily. magnesium oxide (MAG-OX) 400 mg (241.3 mg magnesium) tablet Take 1 tablet by mouth once daily. polyethylene glycol 3350 17 gram packet Take 1 Packet by mouth once daily. Dissolve dose in 4 - 8 ounces of liquid and take as directed. fluticasone (FLONASE) 50 mcg/actuation nasal spray Use 2 Sprays in each nostril once daily as needed. cholecalciferol (VITAMIN D3) 1,000 unit tab tablet Take by mouth once daily. Taking 25 MCG daily donepezil (ARICEPT) 10 mg tablet Take 1 tablet by mouth daily with breakfast. atorvastatin (LIPITOR) 40 mg tablet Take 1 tablet by mouth once daily. vit C/E/Zn/coppr/lutein/zeaxan (PRESERVISION AREDS-2 ORAL) Take 1 capsule by mouth two times a day. latanoprost (XALATAN) 0.005 % ophthalmic solution Use 1 Drop in both eyes daily at bedtime. cyanocobalamin (VITAMIN B-12) 1,000 mcg tab Take 1 tablet by mouth once daily. pantoprazole DR (PROTONIX) 40 mg tablet Take 40 mg by mouth once daily. No current facility-administered medications for this visit. ALLERGIES: Patient has no known allergies. PAST MEDICAL HISTORY PAST MEDICAL HISTORY Diagnosis Date Alzheimer's dementia without behavioral disturbance, psychotic disturbance, mood disturbance, or anxiety, unspecified dementia severity, unspecified timing of dementia onset (HCC) Ascending aorta dilatation (HCC) borderline Benign prostatic hyperplasia with urinary frequency Bilateral carpal tunnel syndrome s/p release on right Bilateral inguinal hernia s/p mesh BPH (benign prostatic hyperplasia) CAD (coronary artery disease) 12/21/2023 abnormal stress test. 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 Iqbal on 02/28/24 Scalp psoriasis Unspecified essential hypertension Upper GI bleed 05/2023 Vitamin D insufficiency PAST SURGICAL HISTORY PAST SURGICAL HISTORY Procedure Laterality Date BACK SURGERY HX CABG (3) VEIN GRAFTS & ARTERIAL GRAFT(S) 02/28/2024 CABG x 3 (Scales-LAD, SVG- PDA, SVG- OM1) with Dr. Iqbal on 02/28/24 COLON SURGERY HX COLONOSCOPY FLX DX W/COLLJ SPEC WHEN PFRMD , 11/19, 01/24, 01/29 COLONOSCOPY FLX DX W/COLLJ SPEC WHEN PFRMD 03/22/2015 Colonoscopy-repeat 5 years COLONOSCOPY FLX DX W/COLLJ SPEC WHEN PFRMD 11/23/2020 COLONOSCOPY GEN ANES 04/12/2020 Repeat in 1 year COLONOSCOPY GEN ANES 04/26/2020 3 polyps removed. 40 mm, 5 mm, 5mm. repeat in 6 months. DISKECTOMY, LUMBAR, SINGLE SP 2006 HERNIA REPAIR HX mesh INGUINAL HERNIA REPAIR HX 07/19/2010 bilateral inguinal hernia repair with mesh NEUROPLASTY &/TRANSPOS MEDIAN NRV CARPAL TUNNE Right 03/26/2015 Carpal tunnel decomp right PAST SURGICAL HISTORY OF Left 04/10/2019 arthroscopic knee for torn meniscus RHINP PRIM LAT&ALAR CRTLGS&/ELVTN NASAL TI 2009 Rhinoplasty SKIN BIOPSY HX FAMILY HISTORY FAMILY HISTORY Problem Relation Age of Onset Heart Mother CHF Hypertension Mother Stroke Father Hypertension Father SOCIAL HISTORY Social History Tobacco Use Smoking status: Never Smokeless tobacco: Never Vaping Use Vaping status: Never Used Substance Use Topics Alcohol use: Not Currently Drug use: Never REVIEW OF SYMPTOMS: The review of systems data was entered by the nurse and reviewed by me SEE NURSING NOTE PHYSICAL EXAMINATION: General: The patient is 78 year old, male well nourished, well hydrated in no acute distress. The patient is oriented to time, place, and person. VITALS: Blood pressure 108/69, pulse 65, weight 87.4 kg (192 lb 9.6 oz), SpO2 96%. Body mass index is 26.31 kg/m . HEENT: Normal cephalic, ataumatic, pupils are equally round, sclera are anicteric, mucous membranesare moist, oropharynx is clear. Neck has no masses, asymmetry or lymphadenopathy. Respiratory: Clear to auscultation and percussion. Normal respiratory excursion and pattern. Cardiac: Examination is regular rate and rhythm. Normal S1/S2 Abdominal exam: Soft, nontender, with no palpable masses. No hepatosplenomegaly. No palpable hernias. Extremities: no clubbing, cyanosis or edema. No adenopathy. LABORATORY VALUES: As Noted RADIOLOGIC STUDIES: As Noted Assessment IMPRESSION: screen for colon cancer, history of colon polyps PLAN: I have reviewed my findings with the surgeon. Will plan for lower endoscopy. We discussed therisks and benefits of the planned endoscopy. I have informed the patient that complications can occur including failure to complete the endoscopy and perforation. Homero had the opportunity to ask questions concerning the planned endoscopy. My staff has also explained the procedure to the patient in understandable terms and has given the patient printed material concerning the procedure. Homero freely consents to surgery. I plan to use MiraLAX bowel preparation I have explained to the patient the difference between IV conscious sedation and MAC anesthesia - and I have offered either, according to the patient's wishes. I have explained that with IV conscioussedation there is no anesthesia provider available and therefore there is a limitation of the amount of IV medications that can be given and that the patient may wake up in the middle of the procedure and/or experience pain/discomfort during the procedure. Further discussion was done and the patient was given the opportunity to ask questions and all questions were answered. MAC anesthesia d/t recent CABG. At this time Homero is on Eliquis s/p CABG. 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 If Eliquis is d/c'd I instructed patient/family to let me know and he would move his endoscopy up since at this time Dr. Vazquez is scheduling into July. Homero was counseled that if there are changes in his/her medical condition, to let the office knowif surgery should proceed. If there are changes in patient's medical condition from time of this encounter to the day of the procedure that preclude anesthesia, patient may have procedure cancelled for patient's safety. Diagnoses: (Z12.11) Screen for colon cancer (primary encounter diagnosis) (Z86.0100) History of colonic polyps Portions of this documentation were copied and pasted from previous office visit notes in order to provide a cohesive continuity of the history. The note has been reviewed and edited and updated as necessary. Melani Curtis APRN.POLISHING MACHINE TENDER Note Details Progress Notes Genesis Cao LPN (LICENSED NURSE) REVIEW OF SYSTEMS: General: The patient denies fatigue, denies weight loss, denies weight gain, denies feeling hot, and denies feelings of cold. Eyes: The patient NOTES glaucoma, denies eye injury/surgery, wears glasses or contacts. Ear/Nose/Throat: The patient denies allergies, denies hayfever, denies ear infections, and denies bloody noses. Cardiovascular: The patient denies chest pain, NOTES heart disease, NOTES high blood pressure,denies cardiac stent, denies prior heart attack, NOTES irregular heart beat, NOTES high cholesterol, denies poor circulation, NOTES heart failure, other cardiac issues, denies claudication, denies cold feet, denies peripheral arterial stent. Respiratory: The patient denies tuberculosis, denies pneumonia, denies frequent cough, denies pulmonary embolism, denies shortness of breath, and denies coughing up blood. Gastrointestinal: The patient denies difficulty swallowing, denies acid reflux, NOTES ulcers, denies vomiting, denies jaundice/hepatitis, denies gallbladder problems, denies black or tarry stools, denies hemorrhoids, denies bleeding from rectum, denies diverticulitis, denies constipation, denies diarrhea, denies loss of stool control, and denies hernias. Kidney/Bladder: The patient denies kidney stones, denies urine infections, and denies bloody urine. Skin: The patient denies a history of skin cancer, denies bleeding/changing moles, and denies a history of skin rash. Neurologic: The patient denies a history of epilepsy/convulsions, denies headaches, denies head/spinal injuries, and denies stroke/TIA. Psychiatric: The patient denies psychiatric medications, NOTES depression, and denies voices, denies substance abuse. Endocrine: The patient denies thyroid disorders, denies diabetes, and denies hormonal problems. Hematologic: The patient denies a history of bruising, denies bleeding, and NOTES anemia, denies blood clots. Infections: The patient denies a history of measles and mumps, denies rheumatic fever, and denies sexually transmitted diseases. Musculoskeletal: The patient denies back pain/injury, denies back problems, denies sciatica, deniesknee/foot trouble, denies arthritis, or denies gout. When was patient's last Mammogram screening? N/A Last Colonoscopy: 04/26/2020 Genesis Cao LPN [facility] Tele[facility] encounter Note * Telephone Encounter - Lenin Chaudhary MD - 09/01/2024 8:03 AM EDT I have no record at all of his lisinopril being discontinued. Who ordered it to be stopped in February? If he has been taking lasix 40 mg daily, then I would reduce his dose to 20 mg daily. I will update his med list. [facility]07-11-20[facility] Telephone encounter Note* Telephone Encounter - Alyssa Valentin LPN - 08/29/2024 2:18 PM EDT Rufina from [facility] calling patient returned from his appt today and on his after visit notes saysto continue current Lisinopril dose. Rufina said patient has been off Lisinopril since February. Next question says Furosemide 40 mg twice daily to 20 mg twice daily. Rufina said patient has been on Furosemide 40 mg once daily since end of April. Asking what does PCP want to do with these medications? Please advise [facility]07-11-[facility] Telephone encounter Note* Telephone Encounter - JAMILAH PALUMBO - 08/29/2024 10:17 AM EDT Patient was in for a follow up appt with Dr Chaudhary 08/29/24. Jamilah Palumbo LPN [facility]07-11-2025 Miscellaneous Notes* Telephone Encounter - JAMILAH PALUMBO - 08/29/2024 10:17 AM EDT Patient was in for a follow up appt with Dr Chaudhary 08/29/24. Jamilah Palumbo LPN * Telephone Encounter - July Richards APRN.CNP - 08/27/2024 4:56 PM EDT The bottom part was supposed to be deleted. July Richards APRN.CNP * Telephone Encounter - July Richards APRN.CNP - 08/27/2024 3:58 PM EDT Looks like he has parameters in place to hold his Metoprolol for SBP less than 100 or pulse less than 60. July Richards APRN.CNP when his metoprolol is to be held * Telephone Encounter - Angi Montana RN - 08/27/2024 3:51 PM EDT Rufina with [facility] called in with a repeat BP of 80/60 HR 62. She states Pt is asymptomatic Pt denies visual changes, headache, dizziness, lightheadedness, weakness, and N/T. She states she hasn't seen any, slurred speech or facial drooping. I let her know if he did experience these things he needed to go to the ER. She verbalized understanding. Angi Montana, RN * Telephone Encounter - Isaura Haji LPN - 08/27/2024 1:47 PM EDT Called and spoke with Rufina at [facility]. Message given from provider below. Voices understanding. Call placed to son Indy to get patient scheduled for Hospital follow up. Indy currently out of state and asking for brother William to be called as he is available for transportation for patient. Call placed to patients son William, message left to call office back to get patient scheduled for Hospital follow up. Isaura Haji LPN * Telephone Encounter - July Richards APRN.CNP - 08/27/2024 12:43 PM EDT Patient should have been scheduled for hospital follow-up. Yes they should recheck and let us know what his BP is. If he develops visual changes, headache, dizziness, lightheadedness, slurred speech,facial drooping, extremity numbness/tingling/weakness needs to go to ER July Richards APRN.TADEO * Telephone Encounter - Marissa Black RN - 08/27/2024 12:23 PM EDT Salome with [facility] calls to report that this morning prior to medication, patient's BP was 182/100HR 88 irregular. Asymptomatic. No lower extremity edema. No current BP reading. Will recheck BP this evening when second dose of metoprolol 12.5 mg is due. Patient also takes lisinopril 40 mg daily and Furosemide 40 mg daily. Salome reports that she is not able to get in touch with Dr. Gill or the CHF clinic but wanted someone to be aware that his BP is elevated as he was having hypotension (70/40 while at ER 08/12) andnow hypertension. Normal range is 120's-130's/70's-80's. Marissa Black RN documented in this encounterA[facility]07-11-2025 Instructions* Patient Instructions* Lenin Chaudhary MD - 08/29/2024 9:54 AM EDT - Reduce your Lasix dose from 40 mg twice daily to 20 mg twice daily to help prevent your blood pressure from dropping too low. - Continue metoprolol tablet twice daily; hold each dose if your heart rate is under 60 bpm or yoursystolic blood pressure is under 100 mmHg (do not use the ER s 120 mmHg cutoff). - Continue your current lisinopril dose as prescribed. - Keep taking your potassium chloride as directed; plan to check your potassium level and kidney function in about 2 weeks with a CMP as ordered. - Have blood drawn for those lab tests at [facility]'s lab (or our clinic lab if necessary) and ensurethe results are sent to our office. - Monitor your blood pressur daily (morning) at [facility]; [facility] staff will report readings to us in 1-2 weeks. - Weigh yourself daily at [facility] and have them record it; contact our office if you gain more than 2-3 pounds in 24 hours, more than 5 pounds total, develop new leg swelling, or notice increased shortness of breath. - If your blood pressures improve and you have no new swelling or fluid-overload symptoms, continuethis regimen; we will decide on any further adjustments once we review your labs and monitoring results. documented in this encounterAcm[facility]07-11-2025 NoteHNO ID: [id number] Author: GUSTAVO SHETTY MA Service: ? Author Type: Donation Worker Type: Progress Notes Filed: 08/29/2024 09:56 Note Text: TruBP 81/54 88/50 79/53 83/50 76/56 80/55 Avg 81/53[facility]07-11-20[facility] History of Present illness Narrative* Gustavo Shetty MA - 08/29/2024 9:41 AM EDT TruBP 81/54 88/50 79/53 83/50 76/56 80/55 Avg 81/53 * Lenin Chaudhary MD - 08/29/2024 9:37 AM EDT Chief Complaint Patient presents with: Blood Pressure Recording using [employer] software for draft documentation of the visit was discussed with the patient/authorized public relations representative; all questions welcomed and answered. Patient/authorized public relations representative agreed to proceed HPI Homero Mei is a 78 year old male who presents here today for Above Complaints. Daughter in law Billy accompanying patient today. Hypotension: - Recent episodes of hypotension, with the lowest recorded BP at 80/60 mmHg and HR in the 60s. - No associated symptoms of lightheadedness or dizziness, nausea, vomiting, diarrhea. - Most recent BP reading this morning was 127/xx mmHg. - Recent ER visit in [place] for BP management; BP was 106/69 mmHg at that time. - Currently wearing a heart monitor since Sunday or Sunday this week; no pain or symptoms recorded. - Eating and drinking normally. - Medications administered at [facility], including metoprolol 1/2 tablet BID, with instructions to hold for HR <60 or systolic BP <100. - Recent ER visit advised holding metoprolol for systolic BP <120. - Taking Lasix 40 mg BID; experiencing frequent urination. - Ankle swelling monitored, with no edema noted up to yesterday. - Recent prescription for potassium chloride; last potassium level was 4.8. Past medical history, appointments, medications, allergies reviewed. Previous Medical History PAST MEDICAL HISTORY Diagnosis Date Alzheimer's dementia without behavioral disturbance, psychotic disturbance, mood disturbance, or anxiety, unspecified dementia severity, unspecified timing of dementia onset (HCC) Ascending aorta dilatation borderline Atrial fibrillation (HCC) Benign prostatic hyperplasia with urinary frequency Bilateral carpal tunnel syndrome s/p release on right Bilateral inguinal hernia s/p mesh BPH (benign prostatic hyperplasia) CAD (coronary artery disease) 12/21/2023 abnormal stress test. moderate ischemia in RCA Current use of correction anticoagulation DDD (degenerative disc disease), lumbar resolved after discectomy Depression Deviated septum s/p septoplasty Glaucoma Hyperlipidemia Insomnia Iron deficiency anemia Irritable bowel syndrome 08/1997 improved Lipoma of neck left posterior neck CHRISTIANO (obstructive sleep apnea) [address] 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 Iqbal on 02/28/24 Scalp psoriasis Unspecified essential hypertension Upper GI bleed 05/2023 Vitamin D insufficiency Previous Surgical History PAST SURGICAL HISTORY Procedure Laterality Date BACK SURGERY HX CABG (3) VEIN GRAFTS & ARTERIAL GRAFT(S) 02/28/2024 CABG x 3 (Scales-LAD, SVG- PDA, SVG- OM1) with Dr. Iqbal on 02/28/24 COLON SURGERY HX COLONOSCOPY FLX DX W/COLLJ SPEC WHEN PFRMD , 11/19, 01/24, 01/29 COLONOSCOPY FLX DX W/COLLJ SPEC WHEN PFRMD 03/22/2015 Colonoscopy-repeat 5 years COLONOSCOPY FLX DX W/COLLJ SPEC WHEN PFRMD 11/23/2020 COLONOSCOPY GEN ANES 04/12/2020 Repeat in 1 year COLONOSCOPY GEN ANES 04/26/2020 3 polyps removed. 40 mm, 5 mm, 5mm. repeat in 6 months. DISKECTOMY, LUMBAR, SINGLE SP 2006 HERNIA REPAIR HX mesh INGUINAL HERNIA REPAIR HX 07/19/2010 bilateral inguinal hernia repair with mesh NEUROPLASTY &/TRANSPOS MEDIAN NRV CARPAL TUNNE Right 03/26/2015 Carpal tunnel decomp right PAST SURGICAL HISTORY OF Left 04/10/2019 arthroscopic knee for torn meniscus RHINP PRIM LAT&ALAR CRTLGS&/ELVTN NASAL TI 2009 Rhinoplasty SKIN BIOPSY HX Family History FAMILY HISTORY Problem Relation Age of Onset Heart Mother CHF Hypertension Mother Stroke Father Hypertension Father Patient Allergies ALLERGIES No Known Allergies Current Medications Current Outpatient Medications on File Prior to Visit Medication Sig atorvastatin (LIPITOR) 40 mg tablet Take 1 tablet by mouth once daily. donepezil (ARICEPT) 10 mg tablet Take 1 tablet by mouth daily with breakfast. cyanocobalamin (VITAMIN B-12) 1,000 mcg tab Take 1 tablet by mouth once daily. memantine (NAMENDA) 5 mg tablet Take 1 tablet by mouth once daily. ELIQUIS 5 mg tab(s) Take 5 mg by mouth two times a day. lisinopril (ZESTRIL) 40 mg tablet Take 40 mg by mouth once daily. ferrous sulfate 325 mg (65 mg iron) tablet Take 325 mg by mouth every 24 hours. furosemide (LASIX) 40 mg tablet Take 1 tablet by mouth two times a day. senna-docusate (SENNA WITH DOCUSATE SODIUM) 8.6-50 mg per tablet Take 1 tablet by mouth once daily. senna-docusate (SENNA WITH DOCUSATE SODIUM) 8.6-50 mg per tablet Take 1 tablet by mouth once daily as needed for constipation. aspirin, enteric coated (ASPIRIN, ENTERIC COATED) 81 mg EC tablet Take 1 tablet by mouth once daily. metoprolol tartrate, short acting, (LOPRESSOR) 25 mg tablet Take 0.5 tablets by mouth two times a day. Hold for HR <60 and/or SBP <100 lactobacillus combination no.4 (PROBIOTIC) 3 billion cell cap Take 1 capsule by mouth once daily. docusate sodium (COLACE) 100 mg capsule Take 1 capsule by mouth two times a day as needed for constipation. melatonin 3 mg capsules Take 1 capsule by mouth at bedtime as needed for insomnia. tamsulosin (FLOMAX) 0.4 mg Take 1 capsule by mouth two times a day. ascorbic acid, vitamin C, (VITAMIN C) 500 mg tablet Take 1 tablet by mouth once daily. folic acid 1 mg tablet Take 1 tablet by mouth once daily. magnesium oxide (MAG-OX) 400 mg (241.3 mg magnesium) tablet Take 1 tablet by mouth once daily. polyethylene glycol 3350 17 gram packet Take 1 Packet by mouth once daily. Dissolve dose in 4 - 8 ounces of liquid and take as directed. fluticasone (FLONASE) 50 mcg/actuation nasal spray Use 2 Sprays in each nostril once daily as needed. cholecalciferol (VITAMIN D3) 1,000 unit tab tablet Take by mouth once daily. Taking 25 MCG daily vit C/E/Zn/coppr/lutein/zeaxan (PRESERVISION AREDS-2 ORAL) Take 1 capsule by mouth two times a day. latanoprost (XALATAN) 0.005 % ophthalmic solution Use 1 Drop in both eyes daily at bedtime. pantoprazole DR (PROTONIX) 40 mg tablet Take 40 mg by mouth once daily. No current facility-administered medications on file prior to visit. Social History Social History Tobacco Use Smoking status: Never Passive exposure: Never Smokeless tobacco: Never Vaping Use Vaping status: Never Used Substance Use Topics Alcohol use: Not Currently Drug use: Never Review of Symptoms REVIEW OF SYSTEMS GENERAL: No weight loss, malaise or fevers RESPIRATORY: Negative for cough, hemoptysis, wheezing, COPD, dyspnea or shortness of breath CARDIOVASCULAR: Negative for chest pain, leg swelling, hypertension, CHF or palpitations EXAM: BP 81/53 Pulse 72 Ht 185.4 cm (6' 1) Wt 86.5 kg (190 lb 9.6 oz) SpO2 97% BMI 25.15 kg/m General Appearance: Well appearing, alert, in no acute distress, well-hydrated, well nourished.. Skin: Skin color, texture, turgor normal, no suspicious rashes or lesions. Lungs: Lungs clear to auscultation. No wheezing, rhonchi, rales.. Heart: RRR without murmur, gallop, or rubs. No ectopy. Abdomen: Normal abdominal exam, Abdomen soft, non-tender. Bowel sounds normal. No masses, organomegaly. Extremities: No deformities, edema, skin discoloration, clubbing or cyanosis. Good capillary refill. . Health Maintenance List RSV Vaccine(1 - 1-dose 75+ series) Never done Advance Directive Discussion due on 02/20/2024 Medicare Advantage Annual Wellness Visit Never done Covid-19 Vaccine( season) due on 02/05/2025 Influenza Vaccine(1) due on 10/20/2024 LDL Cholesterol due on 08/25/2025 Annual PCP Team Chronic Disease Visit due on 08/29/2025 DTaP,Tdap,Td Vaccine(3 - Td or Tdap) due on 09/06/2026 Diabetes Screening due on 08/26/2027 Hepatitis C Screening Completed Shingrix Vaccine Completed Pneumococcal Vaccine: 50+ Completed Colorectal Cancer Screening Discontinued 1. Hypotension, unspecified hypotension type (I95.9) - Recent episodes of hypotension with BP readings as low as 80/60 mmHg; no associated symptoms of lightheadedness, dizziness, nausea, vomiting, or diarrhea. - Current medications include metoprolol and Lasix, which may contribute to low BP. - Reduced Lasix dosage from 40 mg BID to 20 mg BID to prevent further hypotension. - Continue metoprolol with hold parameters for HR <60 bpm or SBP <100 mmHg. - Monitor BP daily; [facility] staff to report if SBP consistently <100 mmHg. - Re-evaluate BP in two weeks. 2. Coronary artery disease involving [place]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[place] heart without angina pectoris(I25.10) - Asymptomatic on medical management. 3. Chronic heart failure with preserved ejection fraction (HCC) (I50.32) 4. Chronic diastolic congestive heart failure (HCC) (I50.32) - No current symptoms of fluid overload; no new leg swelling or shortness of breath. - Reduced Lasix dosage to 20 mg BID; monitor for signs of fluid retention. - [facility] staff to check daily weights; report if weight gain >2-3 lbs in 24 hours or >5 lbs total. - Follow-up in two weeks to assess for any signs of fluid overload. 5. senior care current use of diuretic (Z79.899) - Currently on Lasix 40 mg BID; reduced to 20 mg BID due to hypotension. - Potassium chloride supplementation continued; recent potassium level was 4.8 mmol/L. - Ordered recheck of kidney function and potassium levels in two weeks. - Patient to have labs drawn at [facility] or return to clinic for lab work. Lenin Chaudhary MD documented in this encounterA[facility]-11-[facility] Tele[facility] encounter Note* Telephone Encounter - Gustavo Shetty MA - 08/28/2024 3:13 PM EDT Rufina Shetty MA [facility]07-10-2025 Miscellaneous Notes* Telephone Encounter - Gustavo Shetty MA - 08/28/2024 3:13 PM EDT Rufina informed. Gustavo Shetty MA * Telephone Encounter - Lenin Chaudhary MD - 08/28/2024 3:03 PM EDT Aspirin is typically held 7 days prior to a procedure. I would have him stop it today. His eliquis he should hold 24 hours prior to the procedure. * Telephone Encounter - Alyssa Valentin LPN - 08/28/2024 2:31 PM EDT Rufina Ward calling patient is scheduled for an colonoscopy on Friday 09/[address] Vazquez.Told to call PCP about his daily 81 Aspirin and his Eliquis 5 mg one tablet twice daily? When does these medications needs to be stopped prior to his colonoscopy? They have held his Iron since 08/27/2024. Please advise documented in this encounterAcmc Healthcare System07-10-2025 Telephone encounter Note * Telephone Encounter - Lenin Chaudhary MD - 08/28/2024 3:03 PM EDT Aspirin is typically held 7 days prior to a procedure. I would have him stop it today. His eliquis he should hold 24 hours prior to the procedure. [facility]07-10[facility] Telephone encounter Note* Telephone Encounter - Alyssa Valentin LPN - 08/28/2024 2:31 PM EDT Rufina Ward calling patient is scheduled for an colonoscopy on Friday 09/[address] Vazquez.Told to call PCP about his daily 81 Aspirin and his Eliquis 5 mg one tablet twice daily? When does these medications needs to be stopped prior to his colonoscopy? They have held his Iron since 08/27/2024. Please advise [facility]07-09-2025 Telephone encounter Note* Telephone Encounter - July Richards APRN.CNP - 08/27/2024 4:56 PM EDT The bottom part was supposed to be deleted. July Richards APRN.CNP [facility]07-09-2025 Telephone encounter Note* Telephone Encounter - July Richards APRN.CNP - 08/27/2024 3:58 PM EDT Looks like he has parameters in place to hold his Metoprolol for SBP less than 100 or pulse less than 60. July Richards APRN.CNP when his metoprolol is to be held [facility]07-09-2025 Telephone encounter Note* Telephone Encounter - Angi Montana RN - 08/27/2024 3:51 PM EDT Rufina with [facility] called in with a repeat BP of 80/60 HR 62. She states Pt is asymptomatic Pt denies visual changes, headache, dizziness, lightheadedness, weakness, and N/T. She states she hasn't seen any, slurred speech or facial drooping. I let her know if he did experience these things he needed to go to the ER. She verbalized understanding. Angi Montana, RN [facility]07-09-2025 Telephone encounter Note* Telephone Encounter - Isaura Haji LPN - 08/27/2024 1:47 PM EDT Called and spoke with Rufina at [facility]. Message given from provider below. Voices understanding. Call placed to son Indy to get patient scheduled for Hospital follow up. Indy currently out of state and asking for brother William to be called as he is available for transportation for patient. Call placed to patients nacho Mary, message left to call office back to get patient scheduled for Hospital follow up. Isaura Haji LPN [facility]07-09-2025 Telephone encounter Note* Telephone Encounter - July Richards APRN.CNP - 08/27/2024 12:43 PM EDT Patient should have been scheduled for hospital follow-up. Yes they should recheck and let us know what his BP is. If he develops visual changes, headache, dizziness, lightheadedness, slurred speech,facial drooping, extremity numbness/tingling/weakness needs to go to LISANDRO Richards APRN.POLISHING MACHINE TENDER [facility]07-09-2025 Telephone encounter Note* Telephone Encounter - Marissa Black RN - 08/27/2024 12:23 PM EDT Salome with [facility] calls to report that this morning prior to medication, patient's BP was 182/100HR 88 irregular. Asymptomatic. No lower extremity edema. No current BP reading. Will recheck BP this evening when second dose of metoprolol 12.5 mg is due. Patient also takes lisinopril 40 mg daily and Furosemide 40 mg daily. Salome reports that she is not able to get in touch with Dr. Gill or the CHF clinic but wanted someone to be aware that his BP is elevated as he was having hypotension (70/40 while at ER 08/12) andnow hypertension. Normal range is 120's-130's/70's-80's. Marissa Black RN [facility]07-08-2025 Telephone encounter Note* Telephone Encounter - Melani Curtis APRN.CNP - 08/26/2024 11:11 AM EDT Can you please call Homero and let him know that I received a call from the HIDE HOUSE SUPERVISOR he saw for pre-anesthesia testing that he would like Golytely prep. I sent this to [facility] in [place] because the only pharmacies on file were mail order. If he would like a different pharmacy please let me know & I will send it there. Thank you, Melani Curtis APRN.CNP [facility]07-08-2025 Miscellaneous Notes* Telephone Encounter - Mleani Curtis APRN.CNP - 08/26/2024 11:11 AM EDT Can you please call Homero and let him know that I received a call from the HIDE HOUSE SUPERVISOR he saw for pre-anesthesia testing that he would like Golytely prep. I sent this to [facility] in [place] because the only pharmacies on file were mail order. If he would like a different pharmacy please let me know & I will send it there. Thank you, Melani Curtis APRN.CNP documented in this encounterAcmc Healthcare System07-08-2025 Instructions* Patient Instructions* Cata Bonilla APRN.CNP - 08/26/2024 10:47 AM EDT Images from the original note were not included. [facility] PATIENT PREOPERATIVE INSTRUCTIONS Francisca Vazquez MD has scheduled you for your procedure at this surgery center: [facility]: [phone] -- [address] [address]. Please read below carefully for your personalized instructions. Dietary Restrictions: - Follow bowel prep instructions: clear liquids need to be stopped 2 hours prior to schedule arrival at facility Medications: Unless instructed differently below, stay on all of your medications until your surgery. If you start any new medications after today's visit, please contact your surgeon. Pre-Surgery Med Instructions Medication Instructions atorvastatin (LIPITOR) 40 mg tablet If you normally take this medication in the morning, take the morning of surgery. donepezil (ARICEPT) 10 mg tablet If you normally take this medication in the morning, take the morning of surgery. cyanocobalamin (VITAMIN B-12) 1,000 mcg tab Hold 7 days before surgery. Last dose 08/25/24. memantine (NAMENDA) 5 mg tablet If you normally take this medication in the morning, take the morning of surgery. ELIQUIS 5 mg tab(s) If you normally take this medication in the morning, take the morning of surgery. lisinopril (ZESTRIL) 40 mg tablet If you normally take this medication in the morning, take the morning of surgery. ferrous sulfate 325 mg (65 mg iron) tablet Hold 7 days before surgery. Last dose 08/25/24. furosemide (LASIX) 40 mg tablet Do not take the day of surgery senna-docusate (SENNA WITH DOCUSATE SODIUM) 8.6-50 mg per tablet Do not take the day of surgery senna-docusate (SENNA WITH DOCUSATE SODIUM) 8.6-50 mg per tablet Do not take the day of surgery aspirin, enteric coated (ASPIRIN, ENTERIC COATED) 81 mg EC tablet If you normally take this medication in the morning, take the morning of surgery. metoprolol tartrate, short acting, (LOPRESSOR) 25 mg tablet If you normally take this medication inthe morning, take the morning of surgery. lactobacillus combination no.4 (PROBIOTIC) 3 billion cell cap Hold 7 days before surgery. Last dose08/25/24. docusate sodium (COLACE) 100 mg capsule Do not take the day of surgery melatonin 3 mg capsules Hold 7 days before surgery. Last dose . tamsulosin (FLOMAX) 0.4 mg If you normally take this medication in the morning, take the morning ofsurgery. ascorbic acid, vitamin C, (VITAMIN C) 500 mg tablet Hold 7 days before surgery. Last dose 08/25/24. folic acid 1 mg tablet Hold 7 days before surgery. Last dose 08/25/24. magnesium oxide (MAG-OX) 400 mg (241.3 mg magnesium) tablet Hold 7 days before surgery. Last dose 08/25/24. polyethylene glycol 3350 17 gram packet Do not take the day of surgery fluticasone (FLONASE) 50 mcg/actuation nasal spray Continue as needed cholecalciferol (VITAMIN D3) 1,000 unit tab tablet Hold 7 days before surgery. Last dose 08/25/24. vit C/E/Zn/coppr/lutein/zeaxan (PRESERVISION AREDS-2 ORAL) Hold 7 days before surgery. Last dose 08/25/24. latanoprost (XALATAN) 0.005 % ophthalmic solution If you normally take this medication in the morning, take the morning of surgery. pantoprazole DR (PROTONIX) 40 mg tablet If you normally take this medication in the morning, take the morning of surgery. If you take any medications for erectile dysfunction-Cialis (Tadalafil), Levitra, Staxyn (Vardenafil) Viagra (Sildenenafil please do not take these for 48 hours before surgery. If you start any new medications after today's visit, please contact the surgeon's office. If you are currently using a ooel-xdt-kane injectable or oral medication for diabetes or weight loss such as Dulaglutide (Trulicity), Exenatide (Byetta, Bydureon), Liraglutide (Victoza, Saxenda), Semaglutide (Ozempic, Wegovy, Rybelsus), or Tirzepatide (Mounjaro), the medicine should be stopped at least 7 days before surgery. These medicines can cause food to remain in your stomach for a very longtime and increase the risks from surgery and anesthesia. Not stopping the medication for a long enough time may result in your surgery being rescheduled. Blood Thinning Medications: - Stop ALL herbal and dietary supplements 7 days before surgery. - You may take Tylenol (Acetaminophen) or any of your pain medications that do not contain aspirin or NSAIDS as needed. Important Reminders: - Candy, mints, and tobacco products are NOT permitted the morning of surgery. - Hearing aids, dentures and glasses may be worn the morning of surgery. - NO jewelry, body piercings, makeup, hairpins or contacts are to be worn the day of surgery. If you develop symptoms such as a fever, cold, or flu, or have other changes to your health within TWO DAYS of scheduled surgery or the morning of surgery, please contact the surgery center above. Personal Belongings: -Please have photo ID and insurance cards. -If you do not have a copy of advance directives on file with us, please bring a copy with you on the day of surgery. - Leave ALL valuables and money at home or with family members. - Please bring high-quality footwear, such as sneakers, to the hospital for ambulating post-surgery. For Outpatient Procedures: - YOU MUST HAVE A RESPONSIBLE HOME ENERGY INSPECTOR TAKE YOU HOME. A DISTRIBUTION CENTER ASSISTANT OR MARKETING PROJECT COORDINATOR CANNOT BE MADE A RESPONSIBLE HOME ENERGY INSPECTOR. - We recommend that a responsible person stays with you overnight to take care of you. - You cannot stay in a hotel alone after outpatient surgery. You will not be permitted to have yoursurgery, if you do not have someone to take care of you. Arrival Time for Surgery: - The Surgery Center or hospital where you are having surgery will call the afternoon before surgery (or Sunday for Sunday surgery) with a scheduled arrival time. - If you have not heard by 4 pm, please contact the surgery center above. Please be aware that emergency situations arise, which may delay or change your surgical time. If this happens, we will notify you as soon as possible and regret any inconvenience. If you already have an Advance Directive, please fax a copy to [phone] or email to for it to be added to your chart. If you do not have an Advance Directive, you can find the appropriate form and more information at [email or web address]. We recommend that youcomplete the Advance Directive form found on the website and bring it with you the day of your surgery. It can be witnessed and scanned into your chart that day. Cata Bonilla APRN.CNP documented in this encounterAcmc Healthcare System07-07-2025 History and physical note * Cata Bonilla APRN.CNP - 08/25/2024 4:38 PM EDT Images from the original note were not included. [facility] HISTORY AND PHYSICAL EXAMINATION SERVICE DATE: 08/25/2024 SERVICE TIME: 10:53 AM PRIMARY CARE PHYSICIAN: Lenin Chaudhary MD Assessment Patient has the following medical conditions which may affect maranda-operative course: Coronary artery disease involving [place]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[place] heart without angina pectoris Assessment: S/p CABG 02/2024 -Stable on medication -Follows with Cardiology; last seen 05/26/2024 Essential hypertension Assessment: Currently managed on Lisinopril and Metoprolol Last 14 BP Last 14 Encounter BP Readings: Date: BP: 08/04/2024 138/80 06/25/2024 100/63 05/26/2024 94/57 05/05/2024 104/60 05/05/2024 132/84 05/05/2024 108/69 04/24/2024 124/68 04/15/2024 132/84 04/14/2024 100/64 04/07/2024 134/70 03/24/2024 142/90 02/28/2024 107/67 02/11/2024 142/90 02/07/2024 150/90 Hyperlipidemia Assessment: Currently managed on Atorvastatin Postoperative atrial fibrillation (HCC) Assessment: Currently managed on Eliquis and Metoprolol -Follows with Cardiology; last seen 05/26/2024 Chronic heart failure with preserved ejection fraction (HCC) Assessment: ECHO from 04/2024 demonstrates EF of 61% -Follows with Cardiology; last seen 05/26/2024 CHRISTIANO (obstructive sleep apnea) Assessment: Mild; does not need CPAP Alzheimer's dementia without behavioral disturbance, psychotic disturbance, mood disturbance, or anxiety, unspecified dementia severity, unspecified timing of dementia onset (HCC) Assessment: Currently managed on Aricept and Namenda - Diagnosed in spring 2023 at the neuro clinic - Recent MMSE score of 24/30, indicating mild cognitive impairment BPH (benign prostatic hyperplasia) Assessment: controlled on rx ANESTHESIA FINDINGS: Intubation History: No history of difficult intubation Significant Anesthesia Considerations: +hallucinations following CABG Airway History: No history of difficult airway Mendez Activity Status Index: METS: Climb a flight of stairs or walk up a hill (5.50 METs) DASI Score: 5.5 Patient denies any chest pain or undue shortness of breath with the above physical activity. Clinical Frailty Scale: 4. Apparently vulnerable STOP-Bang Score: Has or is being treated for high blood pressure Patient over 50 years old Male patient Denies snoring loudly Denies feeling tired, fatigued, or sleepy during the daytime Has not been observed to stop breathing or choking/gasping during sleep BMI less than or equal to 35 kg/m^2 Does not have a large neck STOP-Bang Score: 3 [id number] Score: Age: >=75 Sex: male CHF history: Yes Hypertension history: Yes Stroke/TIA/thromboembolism history: No Vascular disease history: Yes Diabetes history: No [id number] Score: 5 I - PHYSICAL EVALUATION AIRWAY Patient intubated: No. Tracheostomy tube not present Mallampati: II. TM distance: >3 FB. Neck ROM: full ROM without neurological symptoms. Mouth opening: adequate. Short neck: no. Thick neck: no Kim present: no Lip Bite Test: I Microretrognathia/Micronagthia/Recessed Chin: No DENTAL Dental findings: teeth intact. II - ANESTHESIA PLAN Anesthetic Plan: other Beta Darcy Monitoring Plan Post Procedure Analgesic Plan Prepared for Surgery: optimally prepared for surgery. CONSULTS: Patient does not require consults for optimization at this time Planned Anesthetic: other anesthesia choice The Following Tests/Procedures Have Been Initiated: No orders of the defined types were placed in this encounter. This is a virtual visit using At[employer] video visit. It required patient-provider interaction for themedical decision making as documented below. REASON FOR VISIT: Homero Mei is a 78 year old male who is scheduled for colonoscopy at the request of Dr. Francisca Vazquez for consultation. My final recommendation will be communicated back to the requesting physician by way of shared medical record or letter. Subjective The patient has the following: COVID-19 Immunization Status Upcoming Covid-19 Vaccine ( season) Postponed until 02/05/2025 02/06/2024 Postponed until 02/05/2025 by Lenin Chaudhary MD (Declined at this time) 12/05/2023 Imm Admin: COVID-19 original vaccine, full dose, monovalent (MODERNA) 01/15/2023 Imm Admin: COVID-19 vaccine, age 12+ yr ([employer] [facility]) Only the first 3 history entries have been loaded, but more history exists. CHIEF COMPLAINT: Pre-Op Evaluation HPI: Homero Mei is a 78 year old male presenting for pre-anesthesia consultation. Pt scheduled for routine colonoscopy. Patient denies fevers, chills, abdominal pain, nausea, vomiting, SOB,or CP. Above procedure recommended to manage symptoms. Procedure scheduled on 09/01/2024 at [place]. This is a virtual visit. The visit was conducted using Atreaon video visit. It required patient-provider interaction for the medical decision making as documented below. I have communicated my name and active licensure. The patient's identity and physical location wereverified at the time of this visit. Either the patient or their legal public relations representative has been informed of the risks and benefits of and alternatives to treatment through a remote evaluation and consents to proceed with the evaluation remotely. REVIEW OF SYSTEMS: General: No weight loss, malaise or fevers. Neurological: +Alzheimer's on rx. No history of TIA's, stroke, [place]VE[place] tumor, impaired sensorium, hemiplegia, paraplegia or quadraplegia. No neurological symptoms or problems. Respiratory: Positive for: obstructive sleep apnea and CPAP/BiPAP noncompliant. Negative for: asthma, COPD, current cough, dyspnea, home oxygen, pneumonia within 6 weeks, tobacco use and URI < 2 weeks. Cardiovascular: Positive for: anticoagulation therapy (Eliquis), atrial fibrillation, CAD, CHF, hyperlipidemia and hypertension Negative for: abdominal aortic aneurysm, angina, chest pain, congenital heart defect, DVT/PE, recent WI, murmur/valvular heart disease, PVD, open heart surgery and valve surgery. GI: No history of GI symptoms or problems. No history of esophageal varices, recent ascites, or ETOH greater than 2 drinks per day. : Positive for: BPH (on rx). Endocrine: No history of diabetes. Has not taken steroids within the past 30 days. No history of endocrinological symptoms or problems. Hematology: Positive for: chronic anti-coagulation/platelet meds. Patient is on anti- coagulation/platelet medication(s): DOAC. Negative for: anemia, bruises/bleeds easily and transfusion of at least 4 units within 72 hours prior to surgery. Oncology: No history of CA metastasis, chemo within 30 days, or radiotherapy within 90 days. No history of oncological symptoms or problems. Psych: No history of psychiatric symptoms or problems. Musculoskeletal: Positive for: joint pain (hip). Skin: Negative for lesions, rash and itching. Implanted Devices: No implanted devices. PAST MEDICAL HISTORY Diagnosis Date Alzheimer's dementia without behavioral disturbance, psychotic disturbance, mood disturbance, or anxiety, unspecified dementia severity, unspecified timing of dementia onset (HCC) Ascending aorta dilatation borderline Atrial fibrillation (HCC) Benign prostatic hyperplasia with urinary frequency Bilateral carpal tunnel syndrome s/p release on right Bilateral inguinal hernia s/p mesh BPH (benign prostatic hyperplasia) CAD (coronary artery disease) 12/21/2023 abnormal stress test. 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 Iqbal on 02/28/24 Scalp psoriasis Unspecified essential hypertension Upper GI bleed 05/2023 Vitamin D insufficiency PAST SURGICAL HISTORY Procedure Laterality Date BACK SURGERY HX CABG (3) VEIN GRAFTS & ARTERIAL GRAFT(S) 02/28/2024 CABG x 3 (Scales-LAD, SVG- PDA, SVG- OM1) with Dr. Iqbal on 02/28/24 COLON SURGERY HX COLONOSCOPY FLX DX W/COLLJ SPEC WHEN PFRMD , 11/19, 01/24, 01/29 COLONOSCOPY FLX DX W/COLLJ SPEC WHEN PFRMD 03/22/2015 Colonoscopy-repeat 5 years COLONOSCOPY FLX DX W/COLLJ SPEC WHEN PFRMD 11/23/2020 COLONOSCOPY GEN ANES 04/12/2020 Repeat in 1 year COLONOSCOPY GEN ANES 04/26/2020 3 polyps removed. 40 mm, 5 mm, 5mm. repeat in 6 months. DISKECTOMY, LUMBAR, SINGLE SP 2006 HERNIA REPAIR HX mesh INGUINAL HERNIA REPAIR HX 07/19/2010 bilateral inguinal hernia repair with mesh NEUROPLASTY &/TRANSPOS MEDIAN NRV CARPAL TUNNE Right 03/26/2015 Carpal tunnel decomp right PAST SURGICAL HISTORY OF Left 04/10/2019 arthroscopic knee for torn meniscus RHINP PRIM LAT&ALAR CRTLGS&/ELVTN NASAL TI 2009 Rhinoplasty SKIN BIOPSY HX FAMILY HISTORY Problem Relation Age of Onset Heart Mother CHF Hypertension Mother Stroke Father Hypertension Father Social History Tobacco Use Smoking status: Never Passive exposure: Never Smokeless tobacco: Never Vaping Use Vaping status: Never Used Substance Use Topics Alcohol use: Not Currently Drug use: Never Prior to Admission medications as of 08/26/24 1047 Medication Sig Last Dose Taking atorvastatin (LIPITOR) 40 mg tablet Take 1 tablet by mouth once daily. Yes donepezil (ARICEPT) 10 mg tablet Take 1 tablet by mouth daily with breakfast. Yes cyanocobalamin (VITAMIN B-12) 1,000 mcg tab Take 1 tablet by mouth once daily. Yes memantine (NAMENDA) 5 mg tablet Take 1 tablet by mouth once daily. Yes ELIQUIS 5 mg tab(s) Take 5 mg by mouth two times a day. Yes lisinopril (ZESTRIL) 40 mg tablet Take 40 mg by mouth once daily. Yes ferrous sulfate 325 mg (65 mg iron) tablet Take 325 mg by mouth every 24 hours. Yes furosemide (LASIX) 40 mg tablet Take 1 tablet by mouth two times a day. Yes senna-docusate (SENNA WITH DOCUSATE SODIUM) 8.6-50 mg per tablet Take 1 tablet by mouth once daily.Yes senna-docusate (SENNA WITH DOCUSATE SODIUM) 8.6-50 mg per tablet Take 1 tablet by mouth once daily as needed for constipation. Yes aspirin, enteric coated (ASPIRIN, ENTERIC COATED) 81 mg EC tablet Take 1 tablet by mouth once daily. Yes metoprolol tartrate, short acting, (LOPRESSOR) 25 mg tablet Take 0.5 tablets by mouth two times a day. Hold for HR <60 and/or SBP <100 Yes lactobacillus combination no.4 (PROBIOTIC) 3 billion cell cap Take 1 capsule by mouth once daily. Yes docusate sodium (COLACE) 100 mg capsule Take 1 capsule by mouth two times a day as needed for constipation. Yes melatonin 3 mg capsules Take 1 capsule by mouth at bedtime as needed for insomnia. Yes tamsulosin (FLOMAX) 0.4 mg Take 1 capsule by mouth two times a day. Yes ascorbic acid, vitamin C, (VITAMIN C) 500 mg tablet Take 1 tablet by mouth once daily. Yes folic acid 1 mg tablet Take 1 tablet by mouth once daily. Yes magnesium oxide (MAG-OX) 400 mg (241.3 mg magnesium) tablet Take 1 tablet by mouth once daily. Yes polyethylene glycol 3350 17 gram packet Take 1 Packet by mouth once daily. Dissolve dose in 4 - 8 ounces of liquid and take as directed. Yes fluticasone (FLONASE) 50 mcg/actuation nasal spray Use 2 Sprays in each nostril once daily as needed. Yes cholecalciferol (VITAMIN D3) 1,000 unit tab tablet Take by mouth once daily. Taking 25 MCG daily Yes vit C/E/Zn/coppr/lutein/zeaxan (PRESERVISION AREDS-2 ORAL) Take 1 capsule by mouth two times a day.Yes latanoprost (XALATAN) 0.005 % ophthalmic solution Use 1 Drop in both eyes daily at bedtime. Yes pantoprazole DR (PROTONIX) 40 mg tablet Take 40 mg by mouth once daily. Yes Medication Comments documented by Kang (Copy Writer)Talat on 03/03/2024 at 1356. [employer] [facility] Medication Record on 03/03/2024 ALLERGIES No Known Allergies Objective PHYSICAL EXAM: (if completed, exam performed via video enabled technology) General: alert and oriented (x3) and healthy appearance. Skin: normal color, no rash or lesions. HEENT: EOM intact and pupils equal round. Cardiovascular: Self palpated radial pulse regular. Respiratory: Non-labored breathing. Abdomen: soft. Pertinent negatives noted - not tender. Extremities: no deformity, no edema or tenderness, no joint swelling or clubbing. Neurological: normal cognition and motor skills. Gait normal. No weakness or sensory deficit. PAIN ASSESSMENT: VITALS: Ht 6' 1 (1.85m) Wt 195 lb (88.5kg) BMI 25.73 kg/(m^2). Diagnostic tests reviewed for today's visit: Lab Value Units Date High Low HB 13.2 g/dL 08/25/2024 17.0 13.0 HCT 39.6 % 08/25/2024 51.0 39.0 WBC 6.88 k/uL 08/25/2024 11.00 3.70 PLT 173 k/uL 08/25/2024 400 150 NA 142 mmol/L 08/25/2024 144 136 K 4.8 mmol/L 08/25/2024 5.1 3.7 GLUC 96 mg/dL 08/25/2024 99 74 BUN 18 mg/dL 08/25/2024 24 9 CREAT 0.95 mg/dL 08/25/2024 1.22 0.73 PTSEC 12.4 sec 02/29/2024 13.0 9.7 INR 1.1 no uni* 02/29/2024 1.3 0.9 APTT 31.6 sec 02/29/2024 32.4 23.0 ALT 20 U/L 08/25/2024 54 10 AST 12 U/L 08/25/2024 40 14 TBILI 0.5 mg/dL 08/25/2024 1.3 0.2 TSH No results within date range. Lab Value Units Date High Low HCGQT No results within date range. UHCG No results within date range. HCG, BODY* No results within date range. Lab Value Units Date High Low ABORHD No results within date range. ABSCREEN No results within date range. Hemoglobin A1C (%) Date Value 02/07/2024 5.5 Recent Results (from the past 8760 hours) ECG COMPLETE Collection Time: 02/29/24 5:02 AM Result Value Ventricular Rate 80 Atrial Rate 80 P-R Interval 156 QRS Duration 84 QT Interval 380 QTC Calculation (Bazett) 438 Calculated P [place] 29 Calculated R Westland -48 Calculated T [place] 13 Impression NORMAL SINUS RHYTHM LEFT AXIS DEVIATION LOW VOLTAGE QRS INFERIOR INFARCT , AGE UNDETERMINED POSSIBLE ANTEROLATERAL INFARCT (CITED ON OR BEFORE 28-Feb-2024) ABNORMAL ECG WHEN COMPARED WITH ECG OF 28-Feb-2024 14:16, AR INTERVAL HAS DECREASED QRS DURATION HAS DECREASED Confirmed by MD BEAR, REAL ([id number]) on 02/29/2024 11:01:00 AM Recent Results (from the past 44171 hours) ECHO Collection Time: 04/22/24 11:16 AM Impression CONCLUSIONS: - Exam indication: s/p CABG - The left ventricle is normal in size. Left ventricular systolic function is normal. EF = 61 5% (2D biplane) Indeterminate left ventricular diastolic function. - The right ventricle is normal in size. Right ventricular systolic function is normal. - The left atrial cavity is severely dilated. - The right atrial cavity is mildly dilated. - There are no significant valvular abnormalities. - The visualized aorta is borderline dilated with a maximal dimension of 4.0 cm. - The patient has not had a prior CC echocardiographic exam for comparison. * * * Final * * * Instructions Given to Patient: Instructions located in the after visit summary. Patient given verbal and written preop instructions and voices comprehension and compliance. SIGNATURE: Cata Bonilla APRN.CNP PATIENT NAME: Homero Mei DATE: August 25, 2024 TIME: 4:38 PM PAGER/CONTACT #: [facility]07-07-2025 History and physical note* Cata Bonilla APRN.CNP - 08/25/2024 4:38 PM EDT Images from the original note were not included. [facility] HISTORY AND PHYSICAL EXAMINATION SERVICE DATE: 08/25/2024 SERVICE TIME: 10:53 AM PRIMARY CARE PHYSICIAN: Lenin Chaudhary MD Assessment Patient has the following medical conditions which may affect maranda-operative course: Coronary artery disease involving [place]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[place] heart without angina pectoris Assessment: S/p CABG 02/2024 -Stable on medication -Follows with Cardiology; last seen 05/26/2024 Essential hypertension Assessment: Currently managed on Lisinopril and Metoprolol Last 14 BP Last 14 Encounter BP Readings: Date: BP: 08/04/2024 138/80 06/25/2024 100/63 05/26/2024 94/57 05/05/2024 104/60 05/05/2024 132/84 05/05/2024 108/69 04/24/2024 124/68 04/15/2024 132/84 04/14/2024 100/64 04/07/2024 134/70 03/24/2024 142/90 02/28/2024 107/67 02/11/2024 142/90 02/07/2024 150/90 Hyperlipidemia Assessment: Currently managed on Atorvastatin Postoperative atrial fibrillation (HCC) Assessment: Currently managed on Eliquis and Metoprolol -Follows with Cardiology; last seen 05/26/2024 Chronic heart failure with preserved ejection fraction (HCC) Assessment: ECHO from 04/2024 demonstrates EF of 61% -Follows with Cardiology; last seen 05/26/2024 CHRISTIANO (obstructive sleep apnea) Assessment: Mild; does not need CPAP Alzheimer's dementia without behavioral disturbance, psychotic disturbance, mood disturbance, or anxiety, unspecified dementia severity, unspecified timing of dementia onset (HCC) Assessment: Currently managed on Aricept and Namenda - Diagnosed in spring 2023 at the neuro clinic - Recent MMSE score of 24/30, indicating mild cognitive impairment BPH (benign prostatic hyperplasia) Assessment: controlled on rx ANESTHESIA FINDINGS: Intubation History: No history of difficult intubation Significant Anesthesia Considerations: +hallucinations following CABG Airway History: No history of difficult airway Mendez Activity Status Index: METS: Climb a flight of stairs or walk up a hill (5.50 METs) DASI Score: 5.5 Patient denies any chest pain or undue shortness of breath with the above physical activity. Clinical Frailty Scale: 4. Apparently vulnerable STOP-Bang Score: Has or is being treated for high blood pressure Patient over 50 years old Male patient Denies snoring loudly Denies feeling tired, fatigued, or sleepy during the daytime Has not been observed to stop breathing or choking/gasping during sleep BMI less than or equal to 35 kg/m^2 Does not have a large neck STOP-Bang Score: 3 [id number] Score: Age: >=75 Sex: male CHF history: Yes Hypertension history: Yes Stroke/TIA/thromboembolism history: No Vascular disease history: Yes Diabetes history: No [id number] Score: 5 I - PHYSICAL EVALUATION AIRWAY Patient intubated: No. Tracheostomy tube not present Mallampati: II. TM distance: >3 FB. Neck ROM: full ROM without neurological symptoms. Mouth opening: adequate. Short neck: no. Thick neck: no Kim present: no Lip Bite Test: I Microretrognathia/Micronagthia/Recessed Chin: No DENTAL Dental findings: teeth intact. II - ANESTHESIA PLAN Anesthetic Plan: other Beta Darcy Monitoring Plan Post Procedure Analgesic Plan Prepared for Surgery: optimally prepared for surgery. CONSULTS: Patient does not require consults for optimization at this time Planned Anesthetic: other anesthesia choice The Following Tests/Procedures Have Been Initiated: No orders of the defined types were placed in this encounter. This is a virtual visit using [employer] video visit. It required patient-provider interaction for themedical decision making as documented below. REASON FOR VISIT: Homero Mei is a 78 year old male who is scheduled for colonoscopy at the request of Dr. Francisca Vazquez for consultation. My final recommendation will be communicated back to the requesting physician by way of shared medical record or letter. Subjective The patient has the following: COVID-19 Immunization Status Upcoming Covid-19 Vaccine () Postponed until 02/05/2025 02/06/2024 Postponed until 02/05/2025 by Lenin Chaudhary MD (Declined at this time) 12/05/2023 Imm Admin: COVID-19 original vaccine, full dose, monovalent (MODERNA) 01/15/2023 Imm Admin: COVID-19 vaccine, age 12+ yr ([employer] [facility]) Only the first 3 history entries have been loaded, but more history exists. CHIEF COMPLAINT: Pre-Op Evaluation HPI: Homero Mei is a 78 year old male presenting for pre-anesthesia consultation. Pt scheduled for routine colonoscopy. Patient denies fevers, chills, abdominal pain, nausea, vomiting, SOB,or CP. Above procedure recommended to manage symptoms. Procedure scheduled on 09/01/2024 at [place]. This is a virtual visit. The visit was conducted using [employer] video visit. It required patient-provider interaction for the medical decision making as documented below. I have communicated my name and active licensure. The patient's identity and physical location wereverified at the time of this visit. Either the patient or their legal public relations representative has been informed of the risks and benefits of and alternatives to treatment through a remote evaluation and consents to proceed with the evaluation remotely. REVIEW OF SYSTEMS: General: No weight loss, malaise or fevers. Neurological: +Alzheimer's on rx. No history of TIA's, stroke, [place] tumor, impaired sensorium, hemiplegia, paraplegia or quadraplegia. No neurological symptoms or problems. Respiratory: Positive for: obstructive sleep apnea and CPAP/BiPAP noncompliant. Negative for: asthma, COPD, current cough, dyspnea, home oxygen, pneumonia within 6 weeks, tobacco use and URI < 2 weeks. Cardiovascular: Positive for: anticoagulation therapy (Eliquis), atrial fibrillation, CAD, CHF, hyperlipidemia and hypertension Negative for: abdominal aortic aneurysm, angina, chest pain, congenital heart defect, DVT/PE, recent WI, murmur/valvular heart disease, PVD, open heart surgery and valve surgery. GI: No history of GI symptoms or problems. No history of esophageal varices, recent ascites, or ETOH greater than 2 drinks per day. : Positive for: BPH (on rx). Endocrine: No history of diabetes. Has not taken steroids within the past 30 days. No history of endocrinological symptoms or problems. Hematology: Positive for: chronic anti-coagulation/platelet meds. Patient is on anti- coagulation/platelet medication(s): DOAC. Negative for: anemia, bruises/bleeds easily and transfusion of at least 4 units within 72 hours prior to surgery. Oncology: No history of CA metastasis, chemo within 30 days, or radiotherapy within 90 days. No history of oncological symptoms or problems. Psych: No history of psychiatric symptoms or problems. Musculoskeletal: Positive for: joint pain (hip). Skin: Negative for lesions, rash and itching. Implanted Devices: No implanted devices. PAST MEDICAL HISTORY Diagnosis Date Alzheimer's dementia without behavioral disturbance, psychotic disturbance, mood disturbance, or anxiety, unspecified dementia severity, unspecified timing of dementia onset (HCC) Ascending aorta dilatation borderline Atrial fibrillation (HCC) Benign prostatic hyperplasia with urinary frequency Bilateral carpal tunnel syndrome s/p release on right Bilateral inguinal hernia s/p mesh BPH (benign prostatic hyperplasia) CAD (coronary artery disease) 12/21/2023 abnormal stress test. 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 Iqbal on 02/28/24 Scalp psoriasis Unspecified essential hypertension Upper GI bleed 05/2023 Vitamin D insufficiency PAST SURGICAL HISTORY Procedure Laterality Date BACK SURGERY HX CABG (3) VEIN GRAFTS & ARTERIAL GRAFT(S) 02/28/2024 CABG x 3 (Scales-LAD, SVG- PDA, SVG- OM1) with Dr. Iqbal on 02/28/24 COLON SURGERY HX COLONOSCOPY FLX DX W/COLLJ SPEC WHEN PFRMD , 11/19, 01/24, 01/29 COLONOSCOPY FLX DX W/COLLJ SPEC WHEN PFRMD 03/22/2015 Colonoscopy-repeat 5 years COLONOSCOPY FLX DX W/COLLJ SPEC WHEN PFRMD 11/23/2020 COLONOSCOPY GEN ANES 04/12/2020 Repeat in 1 year COLONOSCOPY GEN ANES 04/26/2020 3 polyps removed. 40 mm, 5 mm, 5mm. repeat in 6 months. DISKECTOMY, LUMBAR, SINGLE SP 2005 HERNIA REPAIR HX mesh INGUINAL HERNIA REPAIR HX 07/19/2010 bilateral inguinal hernia repair with mesh NEUROPLASTY &/TRANSPOS MEDIAN NRV CARPAL TUNNE Right 03/26/2015 Carpal tunnel decomp right PAST SURGICAL HISTORY OF Left 04/10/2019 arthroscopic knee for torn meniscus RHINP PRIM LAT&ALAR CRTLGS&/ELVTN NASAL TI 2008 Rhinoplasty SKIN BIOPSY HX FAMILY HISTORY Problem Relation Age of Onset Heart Mother CHF Hypertension Mother Stroke Father Hypertension Father Social History Tobacco Use Smoking status: Never Passive exposure: Never Smokeless tobacco: Never Vaping Use Vaping status: Never Used Substance Use Topics Alcohol use: Not Currently Drug use: Never Prior to Admission medications as of 08/26/24 1047 Medication Sig Last Dose Taking atorvastatin (LIPITOR) 40 mg tablet Take 1 tablet by mouth once daily. Yes donepezil (ARICEPT) 10 mg tablet Take 1 tablet by mouth daily with breakfast. Yes cyanocobalamin (VITAMIN B-12) 1,000 mcg tab Take 1 tablet by mouth once daily. Yes memantine (NAMENDA) 5 mg tablet Take 1 tablet by mouth once daily. Yes ELIQUIS 5 mg tab(s) Take 5 mg by mouth two times a day. Yes lisinopril (ZESTRIL) 40 mg tablet Take 40 mg by mouth once daily. Yes ferrous sulfate 325 mg (65 mg iron) tablet Take 325 mg by mouth every 24 hours. Yes furosemide (LASIX) 40 mg tablet Take 1 tablet by mouth two times a day. Yes senna-docusate (SENNA WITH DOCUSATE SODIUM) 8.6-50 mg per tablet Take 1 tablet by mouth once daily.Yes senna-docusate (SENNA WITH DOCUSATE SODIUM) 8.6-50 mg per tablet Take 1 tablet by mouth once daily as needed for constipation. Yes aspirin, enteric coated (ASPIRIN, ENTERIC COATED) 81 mg EC tablet Take 1 tablet by mouth once daily. Yes metoprolol tartrate, short acting, (LOPRESSOR) 25 mg tablet Take 0.5 tablets by mouth two times a day. Hold for HR <60 and/or SBP <100 Yes lactobacillus combination no.4 (PROBIOTIC) 3 billion cell cap Take 1 capsule by mouth once daily. Yes docusate sodium (COLACE) 100 mg capsule Take 1 capsule by mouth two times a day as needed for constipation. Yes melatonin 3 mg capsules Take 1 capsule by mouth at bedtime as needed for insomnia. Yes tamsulosin (FLOMAX) 0.4 mg Take 1 capsule by mouth two times a day. Yes ascorbic acid, vitamin C, (VITAMIN C) 500 mg tablet Take 1 tablet by mouth once daily. Yes folic acid 1 mg tablet Take 1 tablet by mouth once daily. Yes magnesium oxide (MAG-OX) 400 mg (241.3 mg magnesium) tablet Take 1 tablet by mouth once daily. Yes polyethylene glycol 3350 17 gram packet Take 1 Packet by mouth once daily. Dissolve dose in 4 - 8 ounces of liquid and take as directed. Yes fluticasone (FLONASE) 50 mcg/actuation nasal spray Use 2 Sprays in each nostril once daily as needed. Yes cholecalciferol (VITAMIN D3) 1,000 unit tab tablet Take by mouth once daily. Taking 25 MCG daily Yes vit C/E/Zn/coppr/lutein/zeaxan (PRESERVISION AREDS-2 ORAL) Take 1 capsule by mouth two times a day.Yes latanoprost (XALATAN) 0.005 % ophthalmic solution Use 1 Drop in both eyes daily at bedtime. Yes pantoprazole DR (PROTONIX) 40 mg tablet Take 40 mg by mouth once daily. Yes Medication Comments documented by Kang (Copy Writer)Talat on 03/03/2024 at 1356. [employer]. [facility] Medication Record on 03/03/2024 ALLERGIES No Known Allergies Objective PHYSICAL EXAM: (if completed, exam performed via video enabled technology) General: alert and oriented (x3) and healthy appearance. Skin: normal color, no rash or lesions. HEENT: EOM intact and pupils equal round. Cardiovascular: Self palpated radial pulse regular. Respiratory: Non-labored breathing. Abdomen: soft. Pertinent negatives noted - not tender. Extremities: no deformity, no edema or tenderness, no joint swelling or clubbing. Neurological: normal cognition and motor skills. Gait normal. No weakness or sensory deficit. PAIN ASSESSMENT: VITALS: Ht 6' 1 (1.85m) Wt 195 lb (88.5kg) BMI 25.73 kg/(m^2). Diagnostic tests reviewed for today's visit: Lab Value Units Date High Low HB 13.2 g/dL 08/25/2024 17.0 13.0 HCT 39.6 % 08/25/2024 51.0 39.0 WBC 6.88 k/uL 08/25/2024 11.00 3.70 PLT 173 k/uL 08/25/2024 400 150 NA 142 mmol/L 08/25/2024 144 136 K 4.8 mmol/L 08/25/2024 5.1 3.7 GLUC 96 mg/dL 08/25/2024 99 74 BUN 18 mg/dL 08/25/2024 24 9 CREAT 0.95 mg/dL 08/25/2024 1.22 0.73 PTSEC 12.4 sec 02/29/2024 13.0 9.7 INR 1.1 no uni* 02/29/2024 1.3 0.9 APTT 31.6 sec 02/29/2024 32.4 23.0 ALT 20 U/L 08/25/2024 54 10 AST 12 U/L 08/25/2024 40 14 TBILI 0.5 mg/dL 08/25/2024 1.3 0.2 TSH No results within date range. Lab Value Units Date High Low HCGQT No results within date range. UHCG No results within date range. HCG, BODY* No results within date range. Lab Value Units Date High Low ABORHD No results within date range. ABSCREEN No results within date range. Hemoglobin A1C (%) Date Value 02/07/2024 5.5 Recent Results (from the past 8760 hours) ECG COMPLETE Collection Time: 02/29/24 5:02 AM Result Value Ventricular Rate 80 Atrial Rate 80 P-R Interval 156 QRS Duration 84 QT Interval 380 QTC Calculation (Bazett) 438 Calculated P [place] 29 Calculated R West[place] -48 Calculated T [place] 13 Impression NORMAL SINUS RHYTHM LEFT AXIS DEVIATION LOW VOLTAGE QRS INFERIOR INFARCT , AGE UNDETERMINED POSSIBLE ANTEROLATERAL INFARCT (CITED ON OR BEFORE 28-Feb-2024) ABNORMAL ECG WHEN COMPARED WITH ECG OF 28-Feb-2024 14:16, AR INTERVAL HAS DECREASED QRS DURATION HAS DECREASED Confirmed by MD SIFUENTES VINAY ([id number]) on 02/29/2024 11:01:00 AM Recent Results (from the past 91905 hours) ECHO Collection Time: 04/22/24 11:16 AM Impression CONCLUSIONS: - Exam indication: s/p CABG - The left ventricle is normal in size. Left ventricular systolic function is normal. EF = 61 5% (2D biplane) Indeterminate left ventricular diastolic function. - The right ventricle is normal in size. Right ventricular systolic function is normal. - The left atrial cavity is severely dilated. - The right atrial cavity is mildly dilated. - There are no significant valvular abnormalities. - The visualized aorta is borderline dilated with a maximal dimension of 4.0 cm. - The patient has not had a prior [facility] echocardiographic exam for comparison. * * * Final * * * Instructions Given to Patient: Instructions located in the after visit summary. Patient given verbal and written preop instructions and voices comprehension and compliance. SIGNATURE: Cata Bonilla APRN.CNP PATIENT NAME: Homero Mei DATE: August 25, 2024 TIME: 4:38 PM PAGER/CONTACT #: documented in this encounterA[facility] Telephone encounter Note * Telephone Encounter - Isadora Marrero RN - 08/25/2024 3:41 PM EDT General Surgery responded and faxed, closing. [facility]07-07-2025 Miscellaneous Notes* Telephone Encounter - Isadora Marrero RN - 08/25/2024 3:41 PM EDT General Surgery responded and faxed, closing. * Telephone Encounter - Isadora Marrero RN - 08/25/2024 2:[address] Vazquez doing Colonscopy, please advise on prep to this location. documented in this encounterAcmc [facility] System07-[facility]-2025 Telephone encounter Note * Telephone Encounter - Isadora Marrero RN - 08/25/2024 2:[address] Vazquez doing Colonscopy, please advise on prep to this location. [facility] of Present illness Narrative* Lesly Ferris RN - 08/25/2024 10:08 AM EDT EVENT MONITOR DISPOSABLE PATCH INSTRUCTIONS Patient Name: Homero Ruiz [facility] Number: [id number] Skin prepped and cleansed with alcohol Patch secured to prepped area Monitor Activated Serial #: [id number] Patient Instructed: Prescribed order timeframe Bathing guidelines Usage of event button and diary documentation Return of monitor at the end of prescribed order Call with problems [phone] or [phone]. [phone] Patient expresses a good understanding of instructions Lesly Ferris RN documented in this encounterAcmc [facility] System06-30-2025 Telephone encounter Note * Telephone Encounter - Lyubov Rucker RN - 08/18/2024 8:49 AM EDT Note sent from [facility]. Please advise on metoprolol parameters. This is a Daniel pt. Please send recommendations to appropriate staff. Lyubov Rucker RN [facility]06-30-[facility]25 Miscellaneous Notes* Telephone Encounter - Lyubov Rucker RN - 08/18/2024 8:49 AM EDT Note sent from [facility]. Please advise on metoprolol parameters. This is a Glady pt. Please send recommendations to appropriate staff. Lyubov Rucker RN documented in this encounterAcmc Healthcare System06-25-2025 Telephone encounter Note * Telephone Encounter - Alyssa Valentin LPN - 08/13/2024 1:37 PM EDT The patient has been identified by name and date of : Yes, nurse from [facility] Caregiver verified no other encounters exist for this prescription request: Yes Caregiver confirmed with patient/requestor that no other refills are due, in the near future, with this provider at this time: Yes The last office visit in the department: 08/04/2024 Does the patient have a future office visit with this provider/department: Yes 11/03/2024 Requested Prescriptions Pending Prescriptions Disp Refills atorvastatin (LIPITOR) 40 mg tablet 90 tablet 1 Sig: Take 1 tablet by mouth once daily. donepezil (ARICEPT) 10 mg tablet 90 tablet 1 Sig: Take 1 tablet by mouth daily with breakfast. Alyssa Valentin LPN August 13, 2024 1:38 PM [facility] Miscellaneous Notes* Telephone Encounter - Alyssa Valentin LPN - 08/13/2024 1:37 PM EDT The patient has been identified by name and date of : Yes, nurse from [facility] Caregiver verified no other encounters exist for this prescription request: Yes Caregiver confirmed with patient/requestor that no other refills are due, in the near future, with this provider at this time: Yes The last office visit in the department: 08/04/2024 Does the patient have a future office visit with this provider/department: Yes 11/03/2024 Requested Prescriptions Pending Prescriptions Disp Refills atorvastatin (LIPITOR) 40 mg tablet 90 tablet 1 Sig: Take 1 tablet by mouth once daily. donepezil (ARICEPT) 10 mg tablet 90 tablet 1 Sig: Take 1 tablet by mouth daily with breakfast. Alyssa Valentin LPN August 13, 2024 1:38 PM documented in this encounterAcmc [facility] System06-19-2025 Telephone encounter Note * Telephone Encounter - Lenin Chaudhary MD - 08/07/2024 7:08 AM EDT Agree. If they have concerns, they need to speak with the family, not our office. We have already discussed this with them and they would like to proceed with trip as planned. Ultimately, it is theirdecision. [facility] Miscellaneous Notes* Telephone Encounter - Lenin Chaudhary MD - 08/07/2024 7:08 AM EDT Agree. If they have concerns, they need to speak with the family, not our office. We have already discussed this with them and they would like to proceed with trip as planned. Ultimately, it is theirdecision. * Telephone Encounter - Isaura Haji LPN - 08/06/2024 2:33 PM EDT Called and spoke with nurse Prachi, states concern that medication list from here([facility]) doesn't match with their medication list. States cardiology changed it. Checked cardiology visits, no medications changed. Prachi states that the heart failure clinic has been changing this and she thought that was Dr. Gill. Dr. Gill is not the heart failure clinic. Ben current medication for fluid retention and HTN: Furosemide 40mg one tab by mouth daily. Furosemide 40mg one tab by mouth PRN for wieght gain over 3-4lbs in 24 hour period. Metoprolol tartrate 25mg give 0.5 tablet by mouth twice daily for HTN. Hold if systolic <100 andor HR <60. [facility] #[phone]. Patient leaves for [place] 08/09 and Rena would like these reconciled before he leaves for his trip. Called and spoke with Felicia at the hear failure clinic. The only reason the Furosemide order is written at twice daily is because insurance won't fill for PRN. Please refer to 05/13/2024 Follow up note. There are NO discrepancies in his medication list. Called and made nurse Prachi aware. She voices understanding. Continues to voice concern with patient going to [place] and how she is uncomfortable with sending patient with medication. Prachi advised to give medication to son Indy upon vegetable picker andthat son in [place] would be handling patients mediations, blood pressures and weight checks. Prachi states son would not be doing this. Prachi instructed to reach out to sons regarding these concerns at this time. Isaura Haji LPN * Telephone Encounter - July Richards APRN.CNP - 08/06/2024 11:57 AM EDT Yes this was all discussed at his office visit. Son said they would have him take his BP cuff and son also said he would be walking father to the gate. MMSE score did not show change in mild cognitive impairment. July Richards APRN.TADEO * Telephone Encounter - Lenin Chaudhary MD - 08/06/2024 11:52 AM EDT His upcoming flight was discussed at a recent office visit and family was made aware of concerns regarding his memory, but they felt comfortable with him travelling. Parameters for his medications should not change on his trip. Please have them send his parameters with him so family is aware of his medication regimen. * Telephone Encounter - Tawana Hopkins RN - 08/06/2024 10:58 AM EDT Prachi Nurse from [facility] calls with concerns about patient traveling to [place]. Prachi reports that son is dropping patient off at the gate at [facility] and then patient has someone picking himup at gate in [place]. Prachi states that patient cannot find his room at the assisted living and is unsure how patient is going to travel by himself. Prachi also reports that patient can be really short and snippy with people. Prachi is also concerned with patient medications since patient is a daily weight and there are directions that if patient has a 3 pound weigh gain patient is supposed to get extra water pill. Also patient has parameters on metoprolol that patient needs to hold it for heart rate of less than 60 andsystolic less than 100. Prachi reports that this medication is held at least 2-3 times a week. Please review and advise, Tawana Hopkins RN documented in this encounterAcmc Healthcare System06-18-2025 Telephone encounter Note * Telephone Encounter - Isaura Haji LPN - 08/06/2024 2:33 PM EDT Called and spoke with nurse Prachi, states concern that medication list from here([facility]) doesn't match with their medication list. States cardiology changed it. Checked cardiology visits, no medications changed. Prachi states that the heart failure clinic has been changing this and she thought that was Dr. Gill. Dr. Gill is not the heart failure clinic. Ben current medication for fluid retention and HTN: Furosemide 40mg one tab by mouth daily. Furosemide 40mg one tab by mouth PRN for wieght gain over 3-4lbs in 24 hour period. Metoprolol tartrate 25mg give 0.5 tablet by mouth twice daily for HTN. Hold if systolic <100 andor HR <60. [facility] Failure [facility] #[phone]. Patient leaves for [place] 08/09 and Rena would like these reconciled before he leaves for his trip. Called and spoke with Felicia at the hear failure clinic. The only reason the Furosemide order is written at twice daily is because insurance won't fill for PRN. Please refer to 05/13/2024 Follow up note. There are NO discrepancies in his medication list. Called and made nurse Prachi aware. She voices understanding. Continues to voice concern with patient going to [place] and how she is uncomfortable with sending patient with medication. Prachi advised to give medication to son Indy upon vegetable picker andthat son in [place] would be handling patients mediations, blood pressures and weight checks. Prachi states son would not be doing this. Prachi instructed to reach out to sons regarding these concerns at this time. Isaura Haji LPN [facility]06-18-[facility] Telephone encounter Note* Telephone Encounter - July Richards APRN.CNP - 08/06/2024 11:57 AM EDT Yes this was all discussed at his office visit. Son said they would have him take his BP cuff and son also said he would be walking father to the gate. MMSE score did not show change in mild cognitive impairment. July Richards APRN.TADEO [facility]06-18-[facility] Telephone encounter Note* Telephone Encounter - Lenin Chaudhary MD - 08/06/2024 11:52 AM EDT His upcoming flight was discussed at a recent office visit and family was made aware of concerns regarding his memory, but they felt comfortable with him travelling. Parameters for his medications should not change on his trip. Please have them send his parameters with him so family is aware of his medication regimen. [facility] Telephone encounter Note* Telephone Encounter - Tawana Hopkins RN - 08/06/2024 10:58 AM EDT Prachi Nurse from [facility] calls with concerns about patient traveling to [place]. Prachi reports that son is dropping patient off at the gate at [facility] and then patient has someone picking himup at gate in [place]. Prachi states that patient cannot find his room at the assisted living and is unsure how patient is going to travel by himself. Prachi also reports that patient can be really short and snippy with people. Prachi is also concerned with patient medications since patient is a daily weight and there are directions that if patient has a 3 pound weigh gain patient is supposed to get extra water pill. Also patient has parameters on metoprolol that patient needs to hold it for heart rate of less than 60 andsystolic less than 100. Prachi reports that this medication is held at least 2-3 times a week. Please review and advise, Tawana Hopkins RN [facility]06-16-[facility] History of Present illness Narrative* July Richards APRN.TADEO - 08/04/2024 1:20 PM EDT 08/04/2024 Patient presents with: F/U 3 Month: Memory changes within the last month Recording using [employer] software for draft documentation of the visit was discussed with the patient/authorized public relations representative; all questions welcomed and answered. Patient/authorized public relations representative agreed to proceed SUBJECTIVE: This is a 78 year old, accompanied by son, that is here today for Above Complaints. Alzheimer's Disease: - Diagnosed in spring 2023 at the neuro clinic. - Currently taking Namenda and Aricept. - Homero reports no significant memory issues; son notes some decline post heart surgery. - No episodes of wandering or behavioral disturbances reported. - Homero expresses frustration with living in a nursing facility, feeling better than a lot of thepeople I see in there. - No recent neurocognitive exam performed. - son concerned as nursing staff at his assisted living facility told him Aly was observed to betalking on phone but didn't have a phone in his hand Coronary Artery Disease: - Underwent CABG in February. - Currently participating in cardiac rehab. - Scheduled to wear a heart monitor for 14 days in August to assess for AFib. - Taking a statin for cholesterol management. - taking Eliquis as ordered, denies bleeding symptoms Hematuria: - Microscopic hematuria noted; urologist attributes it to an enlarged prostate and blood thinner use. - No other bleeding symptoms reported. PAST MEDICAL HISTORY Diagnosis Date Alzheimer's dementia without behavioral disturbance, psychotic disturbance, mood disturbance, or anxiety, unspecified dementia severity, unspecified timing of dementia onset (HCC) Ascending aorta dilatation borderline Atrial fibrillation (HCC) Benign prostatic hyperplasia with urinary frequency Bilateral carpal tunnel syndrome s/p release on right Bilateral inguinal hernia s/p mesh BPH (benign prostatic hyperplasia) CAD (coronary artery disease) 12/21/2023 abnormal stress test. moderate ischemia in RCA Current use of correction anticoagulation DDD (degenerative disc disease), lumbar resolved after discectomy Depression Deviated septum s/p septoplasty Glaucoma Hyperlipidemia Insomnia Iron deficiency anemia Irritable bowel syndrome 08/1997 improved Lipoma of neck left posterior neck CHRISTIANO (obstructive sleep apnea) [address] 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 Iqbal on 02/28/24 Scalp psoriasis Unspecified essential hypertension Upper GI bleed 05/2023 Vitamin D insufficiency ALLERGIES Patient has no known allergies. MEDICATIONS Current Outpatient Medications Medication Sig cyanocobalamin (VITAMIN B-12) 1,000 mcg tab Take 1 tablet by mouth once daily. memantine (NAMENDA) 5 mg tablet Take 1 tablet by mouth once daily. ELIQUIS 5 mg tab(s) Take 5 mg by mouth two times a day. lisinopril (ZESTRIL) 40 mg tablet Take 40 mg by mouth once daily. ferrous sulfate 325 mg (65 mg iron) tablet Take 325 mg by mouth every 24 hours. furosemide (LASIX) 40 mg tablet Take 1 tablet by mouth two times a day. senna-docusate (SENNA WITH DOCUSATE SODIUM) 8.6-50 mg per tablet Take 1 tablet by mouth once daily. senna-docusate (SENNA WITH DOCUSATE SODIUM) 8.6-50 mg per tablet Take 1 tablet by mouth once daily as needed for constipation. aspirin, enteric coated (ASPIRIN, ENTERIC COATED) 81 mg EC tablet Take 1 tablet by mouth once daily. metoprolol tartrate, short acting, (LOPRESSOR) 25 mg tablet Take 0.5 tablets by mouth two times a day. Hold for HR <60 and/or SBP <100 lactobacillus combination no.4 (PROBIOTIC) 3 billion cell cap Take 1 capsule by mouth once daily. docusate sodium (COLACE) 100 mg capsule Take 1 capsule by mouth two times a day as needed for constipation. melatonin 3 mg capsules Take 1 capsule by mouth at bedtime as needed for insomnia. tamsulosin (FLOMAX) 0.4 mg Take 1 capsule by mouth two times a day. ascorbic acid, vitamin C, (VITAMIN C) 500 mg tablet Take 1 tablet by mouth once daily. folic acid 1 mg tablet Take 1 tablet by mouth once daily. magnesium oxide (MAG-OX) 400 mg (241.3 mg magnesium) tablet Take 1 tablet by mouth once daily. polyethylene glycol 3350 17 gram packet Take 1 Packet by mouth once daily. Dissolve dose in 4 - 8 ounces of liquid and take as directed. fluticasone (FLONASE) 50 mcg/actuation nasal spray Use 2 Sprays in each nostril once daily as needed. cholecalciferol (VITAMIN D3) 1,000 unit tab tablet Take by mouth once daily. Taking 25 MCG daily donepezil (ARICEPT) 10 mg tablet Take 1 tablet by mouth daily with breakfast. atorvastatin (LIPITOR) 40 mg tablet Take 1 tablet by mouth once daily. vit C/E/Zn/coppr/lutein/zeaxan (PRESERVISION AREDS-2 ORAL) Take 1 capsule by mouth two times a day. latanoprost (XALATAN) 0.005 % ophthalmic solution Use 1 Drop in both eyes daily at bedtime. pantoprazole DR (PROTONIX) 40 mg tablet Take 40 mg by mouth once daily. No current facility-administered medications for this visit. Medications and allergies reviewed by this provider. SOCIAL HISTORY Social History Tobacco Use Smoking status: Never Passive exposure: Never Smokeless tobacco: Never Vaping Use Vaping status: Never Used Substance Use Topics Alcohol use: Not Currently Drug use: Never REVIEW OF SYSTEMS All other reviewed and negative other than HPI. OBJECTIVE: BP 138/80 Pulse 63 Resp 16 Wt 88.5 kg (195 lb 3.2 oz) SpO2 97% BMI 25.75 kg/m . Vital signs reviewed by this provider. APPEARANCE Well appearing, alert, in no acute distress, well-hydrated, well nourished. EYES PERRLA, conjunctiva and sclera normal. HEART RRR with normal S1 and S2, no murmurs, no gallops, no JVD appreciated LUNG clear to auscultation. No wheezes, rhonchi or rales RSV Vaccine(1 - 1-dose 75+ series) Never done Advance Directive Discussion due on 02/20/2024 Medicare Advantage Annual Wellness Visit Never done Covid-19 Vaccine( season) due on 02/05/2025 LDL Cholesterol due on 02/05/2025 Annual PCP Team Chronic Disease Visit due on 08/04/2025 DTaP,Tdap,Td Vaccine(3 - Td or Tdap) due on 09/06/2026 Diabetes Screening due on 05/10/2027 Influenza Vaccine Completed Hepatitis C Screening Completed Shingrix Vaccine Completed Pneumococcal Vaccine: 50+ Completed Colorectal Cancer Screening Discontinued 1. Alzheimer's disease (HCC) (G30.9) - Diagnosed in spring 2023 at the neuro clinic; currently on Namenda and Aricept. - Recent MMSE score of 24/30, indicating mild cognitive impairment - Discussed the progressive nature of Alzheimer's and the importance of medication adherence. - Scheduled follow-up in 3 months to monitor cognitive status. 2. 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 - No other bleeding symptoms reported. - Cardiology follow-up with Dr. Gill; scheduled for a 14-day heart monitor in August to evaluate for AFib. - Potential to discontinue Eliquis if no AFib is detected. 3. Essential (primary) hypertension (I10) - Blood pressure readings generally well-controlled, with occasional outliers. - Current medications include metoprolol and lisinopril. - Advised to monitor for symptoms of hypotension, such as dizziness or lightheadedness, especially during upcoming travel. - Patient to bring home blood pressure monitor on trip to [place]. 4. Benign prostatic hyperplasia without lower urinary tract symptoms (N40.0) - Likely contributing to microscopic hematuria. - No lower urinary tract symptoms reported. 5. Microscopic hematuria (R31.29) - Evaluated by urology; determined to be related to BPH and anticoagulation therapy. - No further intervention required at this time. 6. Presence of coronary angioplasty implant and graft (Z95.5) - Underwent bypass surgery in February; currently participating in cardiac rehabilitation. - Follow-up with cardiology scheduled; heart monitor to be worn post-rehab to assess for AFib. July Richards APRN.POLISHING MACHINE TENDER Prescription instructions reviewed with patient as applicable. Patient advised if symptoms do not improve or if symptoms worsen sooner, to contact their primary care physician. Potential red flag symptoms discussed with the patient. Reviewed appropriate action plan to take if red flag symptoms occur. Patient agreeable to treatment plan. Medical Decision Making: Problems: Moderate: 2+ stable chronic illnesses Data: Assessment requiring an independent historian(s) Risk: Moderate: Moderate risk from testing/treatment Medical Decision Making Level: 4 - Moderate documented in this encounterAcmc Healthcare System06-16-2025 NoteParkwood [facility]06-16-2025 Telephone encounter Note* Telephone Encounter - Camila Pathak LPN - 08/04/2024 12:[address]Hedrick rousseau for travel and ok to ride his bike. Camila Pathak LPN Patient notified of recommendations. Camila Pathak LPN [facility]06-16-2025 Miscellaneous Notes* Telephone Encounter - Camila Pathak LPN - 08/04/2024 12:[address]Hedrick rousseau for travel and ok to ride his bike. Camila Pathak LPN Patient notified of recommendations. Camila Pathak LPN * Telephone Encounter - Nela Krishnamurthy - 07/15/2024 4:07 PM EDT Patient calling in regard to his triple bypass surgery he had this spring. Patient states he is feeling good, other than he sometimes feels light headed when he stands up. He wants to make sure this is normal. He is also asking if he is now able to ride his bike now that he is a couple month out from surgery. Patient also states he might be leaving the country around October-November and wants to make sure this is okay for him to do. Please review and advise patient. Nela Krishnamurthy July 15, 2024 4:14 PM documented in this encounterAcmc Healthcare System06-12-2025 Telephone encounter Note * Telephone Encounter - Lenin Chaudhary MD - 07/31/2024 3:04 PM EDT Reviewed. Will discuss at OV tomorrow. [facility]06-12-2025 Miscellaneous Notes* Telephone Encounter - Lenin Chaudhary MD - 07/31/2024 3:04 PM EDT Reviewed. Will discuss at OV tomorrow. * Telephone Encounter - Roopa Montiel RN - 07/31/2024 2:12 PM EDT Nadia, a nurse at [facility] calling regarding patient. States patienthas been more irritable over the past couple of weeks and was also noted today to be pretending that he was on the phone with someone but had no phone in his hand. Nurse states a urine dip was completed today was normal. Pt has diagnosis of Alzheimer's dementia without behavioral disturbance. Nurseexpresses concern that pt may need medication changes or other tx. Pt had 3 month follow up visit scheduled for 08/08. This was moved to a sooner appt (40 min) to address 3 month follow up and new concern, if provider agreeable. Son to attend visit, per nurse. Call nurse at [facility], for any further appt changes that need to be made regarding this matter. Roopa Montiel RN documented in this encounterAcmc Healthcare System06-12-2025 Telephone encounter Note * Telephone Encounter - Roopa Montiel RN - 07/31/2024 2:12 PM EDT Nadia, a nurse at [facility] calling regarding patient. States patienthas been more irritable over the past couple of weeks and was also noted today to be pretending that he was on the phone with someone but had no phone in his hand. Nurse states a urine dip was completed today was normal. Pt has diagnosis of Alzheimer's dementia without behavioral disturbance. Nurseexpresses concern that pt may need medication changes or other tx. Pt had 3 month follow up visit scheduled for 08/08. This was moved to a sooner appt (40 min) to address 3 month follow up and new concern, if provider agreeable. Son to attend visit, per nurse. Call nurse at [facility], for any further appt changes that need to be made regarding this matter. Roopa Montiel RN [facility]06-06-2025 NoteParkwood [facility]06-06-2025 History of Present illness Narrative* Sharonda Hoskins - 07/25/2024 12:44 PM EDT Patient is identified through a medication adherence outreach initiative based on pharmacy claims data from: [email or web address] Medication Adherence Category: Statins First Review Attribution Status: Correctly attributed, Pt in hospital/SNF/rehab/LTC Medication(s) Atorvastatin 40 mg Medication Status per portal/Epic Reconcile Dispense: Filled on time - On or before next fill date Date Filled (MM/DD): 07/22 Day Supply: 14 Medication Status per Profile Review: No issues per profile review Patient/provider appropriate for outreach? No Reason patient/provider not appropriate for outreach:Patient currently in [facility] Sharonda Hoskins [facility] Team documented in this encounterAcmc Healthcare System06-05-2025 Telephone encounter Note * Telephone Encounter - Alyssa Valentin LPN - 07/24/2024 2:20 PM EDT The patient has been identified by name and date of : Yes Caregiver verified no other encounters exist for this prescription request: Yes Caregiver confirmed with patient/requestor that no other refills are due, in the near future, with this provider at this time: Yes The last office visit in the department-02/06/2024 Does the patient have a future office visit with this provider/department: Yes 08/06/2024 Requested Prescriptions Pending Prescriptions Disp Refills cyanocobalamin (VITAMIN B-12) 1,000 mcg tab 30 tablet 2 Sig: Take 1 tablet by mouth once daily. Alyssa Valentin LPN July 24, 2024 2:21 PM [facility]-05-2025 Miscellaneous Notes* Telephone Encounter - Alyssa Valentin LPN - 07/24/2024 2:20 PM EDT The patient has been identified by name and date of : Yes Caregiver verified no other encounters exist for this prescription request: Yes Caregiver confirmed with patient/requestor that no other refills are due, in the near future, with this provider at this time: Yes The last office visit in the department-02/06/2024 Does the patient have a future office visit with this provider/department: Yes 08/06/2024 Requested Prescriptions Pending Prescriptions Disp Refills cyanocobalamin (VITAMIN B-12) 1,000 mcg tab 30 tablet 2 Sig: Take 1 tablet by mouth once daily. Alyssa Valentin LPN July 24, 2024 2:21 PM documented in this encounterAcmc Healthcare System06-03-2025 NoteParkwood [facility]06-03-2025 History of Present illness Narrative* Maren Melo - 07/22/2024 1:04 PM EDT POPULATION HEALTH NAVIGATION OUTREACH Action/ Patient outreach for HCC gaps; AWV. Lvm and sent mychart to close gaps. Updated appointment notes. Reason for Outreach Care Gap/HCC or Scheduling Wellness Visits Care Gaps due: Medicare Annual Wellness Visit Patient Contacted: Unable or unnecessary to reach patient: Left message MyChart message sent Updated appointment notes Navigation Signature: Maren Braswell July 22, 2024 1:04 PM documented in this encounterAcmc Healthcare System05-27-2025 Telephone encounter Note * Telephone Encounter - Nela Krishnamurthy - 07/15/2024 4:07 PM EDT Patient calling in regard to his triple bypass surgery he had this spring. Patient states he is feeling good, other than he sometimes feels light headed when he stands up. He wants to make sure this is normal. He is also asking if he is now able to ride his bike now that he is a couple month out from surgery. Patient also states he might be leaving the country around October-November and wants to make sure this is okay for him to do. Please review and advise patient. Nela Krishnamurthy July 15, 2024 4:14 PM [facility]05-07-2025 NoteParkwood [facility]05-07-2025 History of Present illness Narrative* Sheng Pacheco MD - 06/25/2024 6:08 PM EDT Images from the original note were not included. [facility] UROLOGY PROCEDURE NOTE UROL [facility] CYSTOSCOPY PROCEDURE NOTE: Homero Mei is a 78 year old male who presents for a cystoscopy. Indication: hematuria micro Pt ID verified with patient: Yes Procedure verified with patient: Yes Procedure confirmed with physician and academic support specialist: Yes UNIVERSAL PROTOCOL / SAFETY CHECKLIST Procedure to be Performed: Cystoscopy Sign In: A Moment of CARE was completed. Appropriate PPE (Personal Protective Equipment) worn by all providers involved with the procedure. Special equipment not required. Patient/Surrogate Stated/Verified: Patient name, Date of , Relevant allergies, and The intended procedure Time Out: Relevant labs, photos, and/or imaging studies have been reviewed. Intended patient and procedure match the source document(s) (e.g. consent, H&P, associated studies [imaging, pathology]) match the intended patient and procedure. Consent obtained and matches the intended procedure. Yes. Correct side/site has been marked and visible. Medications required for this procedure are verified. Fire risk assessed and is not applicable. Implants: are not applicable. Sign Out: Specimens are all correctly labeled and sent. All instruments, equipment, possible retained foreign bodies are accounted for. Yes. The post-procedure plan of care has been communicated to the patient or surrogate. Physician: Sheng Pacheco MD A urinalysis was performed revealing no evidence of infection. The benefits, risks, alternatives of the cystoscopy procedure and personnel were discussed with thepatient. The verbal consent was obtained and the patient agrees to proceed. Procedure: The patient was placed on the procedure table in the supine position and prepped and draped in the usual sterile fashion. 2% Lidocaine Jelly was placed per urethra as an anesthetic in the standard fashion. Once adequate local anesthesia was achieved, the tip of the flexible cystoscope was carefully placed into the urethra under direct visual guidance. The scope was negotiated through the pendulous urethra to the level of the bulbar urethra with no evidence of stricture. The verumontanum came into view and the scope was negotiated through the prostatic urethra which showed evidence of tri lobar occlusive disease. The bladder was entered and careful lopez endoscopy was carried out. The posterior, superior and lateral browne and dome of the bladder were all well visualized and the scope was retroflexed upon itself. The findings were consistent with no evidence of bladder mucosal pathology. FINDINGS Urethra: Normal Sphincter: Normal / Coapted Prostate: Enlarged Lateral Lobes / Mildly enlarged Median Lobe Bladder Neck: Patent Urothelium: normal appearing, no evidence of tumor, no erythema, no foreign body Trabeculation: Yes Inflammation: No Diverticulum: Yes Ureteral Orifices: normal appearing, orthotopic position, clear efflux bilaterally Trigone: normal appearing At the conclusion of the procedure, the flexible cystoscope was removed atraumatically. The patienttolerated the procedure without complications. Patient was given standard post-procedure instructions, and was directed to complete the course of oral antibiotics and increase oral fluid intake as directed. Complications: None Estimated Blood Loss: None Preoperative diagnosis: Microscopic hematuria Postoperative diagnosis: Same ASSESSMENT/PLAN: - Likely secondary to BPH, in combination with chronic anticoagulant, also has bilateral renal calculi - Patient may see me in follow up in [place] office in 6 months Sheng Pacheco MD, MS Associate Staff [facility] [place] [facility] * Juarez Hopkins MA - 06/25/2024 12:49 PM EDT CYSTOSCOPY PROCEDURE NOTE: Homero Mei is a 78 year old male who presents with hematuria micro. Pt ID verified with patient: Yes Primary Diagnosis: Hematuria Informed Consent Discussed: Yes Sign in Communication: Completed Time Out: Team Confirms the Correct Patient, Correct Procedure; Cystoscopy, Correct Site and Site Marking, Correct Position (if applicable). Sign Out: Sign Out Discussion: Completed Physician: Dr. Sheng Pacheco A urinalysis was performed revealing no evidence of infection. Prophylaxis with Keflex 500 mg was given to the patient prior to the procedure. Procedure: The scope was negotiated through the pendulous urethra to the level of the bulbar urethra with no evidence of stricture. The verumontanum came into view and the scope was negotiated through the prostatic urethra which showed evidence of a patent prostatic urethra. The bladder was enteredand careful lopez endoscopy was carried out. The posterior, superior and lateral browne and dome of the bladder were all well visualized and the scope was retroflexed upon itself. The findings were consistent with no evidence of bladder mucosal pathology. At the conclusion of the procedure, the flexible cystoscope was removed atraumatically. The patient tolerated the procedure without complications. The patient has been instructed to return to the office in approximately 6 months for follow-up. Juarez Hopkins MA documented in this encounterAcmc Healthcare System05-07-2025 [facility] Telephone encounter Note* Telephone Encounter - Lenin Chaudhary MD - 06/24/2024 10:40 AM EDT Total of 5 minutes spent reviewing chart, ordering new rx, and communicating with patient/family. [facility]05-06-2025 Miscellaneous Notes* Telephone Encounter - Lenin Chaudhary MD - 06/24/2024 10:40 AM EDT Total of 5 minutes spent reviewing chart, ordering new rx, and communicating with patient/family. documented in this encounterAcmc Healthcare System04-18-2025 Telephone encounter Note * Telephone Encounter - Shruthi Cortés RN - 06/06/2024 1:48 PM EDT Network Navigation SBAR Situation call received from Rufina jamison from [facility]. Background reported patient is up 3 pounds overnight. Weight today 189.2 pounds. Denies any concerns regarding shortness of breath or swelling at this time. Assessment review shows that patient is on Lasix 40 mg daily and may take and as needed dose of 40 mg for weight gain of 3 pounds overnight. Recommendation nurse reports that she will give him his extra dose of Lasix and continue to follow.Recommendation made by [facility], should the patient exceed the as needed dose more than 3 times in 1 week to contact the heart failure clinic. [facility]04-18-2025 Miscellaneous Notes* Telephone Encounter - Shruthi Cortés RN - 06/06/2024 1:48 PM EDT Network Navigation SBAR Situation call received from Rufina jamison from [facility]. Background reported patient is up 3 pounds overnight. Weight today 189.2 pounds. Denies any concerns regarding shortness of breath or swelling at this time. Assessment review shows that patient is on Lasix 40 mg daily and may take and as needed dose of 40 mg for weight gain of 3 pounds overnight. Recommendation nurse reports that she will give him his extra dose of Lasix and continue to follow.Recommendation made by [facility], should the patient exceed the as needed dose more than 3 times in 1 week to contact the heart failure clinic. documented in this encounterAcmc Healthcare System04-07-2025 [facility]04-07-2025 History of Present illness Narrative* Catherine Marino CPhT - 05/26/2024 2:11 PM EDT Patient is identified through a medication adherence outreach initiative based on pharmacy claims data from: [email or web address] Medication Adherence Category: Statins First Review Attribution Status: Correctly Attributed but Patient in SNF Atorvastatin 40mg 1 tab daily Due 05/29/24 last filled 05/13/24 for 14 ds Catherine Marino CPhT [facility] Team documented in this encounterAcmc Healthcare System04-07-2025 Instructions* Patient Instructions* Dhara Gill MD - 05/26/2024 11:23 AM EDT We will order a monitor in August and fasting blood work documented in this encounterAcmc Healthcare System04-07-2025 History of Present illness Narrative* Dhara Gill MD - 05/26/2024 11:00 AM EDT Images from the original note were not included. State I will be here thank you [facility] Cardiology ([address]) [address] [facility] [id number] OUTPATIENT VISIT DATE 05/26/2024 PRIMARY CARE PHYSICIAN: Lenin Chaudhary [address] [place] [address] REFERRING PHYSICIAN: CHIEF COMPLAINT: HISTORY OF PRESENT ILLNESS: Mr. Mei is a 78 year old gentleman with coronary artery disease prior coronary bypass grafting February 2024 (SCALES-LAD, SVG-PDA, SVG-OM), hypertension, and dyslipidemia who presents for follow-up after his coronary bypass grafting in February. Patient is currently living in assisted living. His son brought him to the office visit. He has been participating in cardiac rehab and doing very well. He denies chest pain or pressure. According to the son his functional capacity has markedly improved since that bypass surgery. He has not had symptoms concerning for congestive heart failure including PND, orthopnea, or lower extremity edema. PAST MEDICAL HISTORY Diagnosis Date Alzheimer's dementia without behavioral disturbance, psychotic disturbance, mood disturbance, or anxiety, unspecified dementia severity, unspecified timing of dementia onset (HCC) Ascending aorta dilatation borderline Atrial fibrillation (HCC) Benign prostatic hyperplasia with urinary frequency Bilateral carpal tunnel syndrome s/p release on right Bilateral inguinal hernia s/p mesh BPH (benign prostatic hyperplasia) CAD (coronary artery disease) 12/21/2023 abnormal stress test. 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 Iqbal on 02/28/24 Scalp psoriasis Unspecified essential hypertension Upper GI bleed 05/2023 Vitamin D insufficiency PAST SURGICAL HISTORY Procedure Laterality Date BACK SURGERY HX CABG (3) VEIN GRAFTS & ARTERIAL GRAFT(S) 02/28/2024 CABG x 3 (Scales-LAD, SVG- PDA, SVG- OM1) with Dr. Iqbal on 02/28/24 COLON SURGERY HX COLONOSCOPY FLX DX W/COLLJ SPEC WHEN PFRMD , 11/19, 01/24, 12/11 COLONOSCOPY FLX DX W/COLLJ SPEC WHEN PFRMD 03/22/2015 Colonoscopy-repeat 5 years COLONOSCOPY FLX DX W/COLLJ SPEC WHEN PFRMD 11/23/2020 COLONOSCOPY GEN ANES 04/12/2020 Repeat in 1 year COLONOSCOPY GEN ANES 04/26/2020 3 polyps removed. 40 mm, 5 mm, 5mm. repeat in 6 months. DISKECTOMY, LUMBAR, SINGLE SP 2006 HERNIA REPAIR HX mesh INGUINAL HERNIA REPAIR HX 07/19/2010 bilateral inguinal hernia repair with mesh NEUROPLASTY &/TRANSPOS MEDIAN NRV CARPAL TUNNE Right 03/26/2015 Carpal tunnel decomp right PAST SURGICAL HISTORY OF Left 04/10/2019 arthroscopic knee for torn meniscus RHINP PRIM LAT&ALAR CRTLGS&/ELVTN NASAL TI 2009 Rhinoplasty SKIN BIOPSY HX SOCIAL HISTORY Social History Tobacco Use Smoking status: Never Smokeless tobacco: Never Vaping Use Vaping status: Never Used Substance Use Topics Alcohol use: Not Currently Drug use: Never FAMILY HISTORY Problem Relation Age of Onset Heart Mother CHF Hypertension Mother Stroke Father Hypertension Father ALLERGIES: ALLERGIES No Known Allergies MEDICATIONS: ELIQUIS 5 mg tab(s) Take 5 mg by mouth two times a day. lisinopril (ZESTRIL) 40 mg tablet Take 40 mg by mouth once daily. ferrous sulfate 325 mg (65 mg iron) tablet Take 325 mg by mouth every 24 hours. potassium chloride ER (KLOR-CON) 20 mEq tablet Take 1 tablet by mouth two times a day. furosemide (LASIX) 40 mg tablet Take 1 tablet by mouth two times a day. (Patient taking differently: Take 40 mg by mouth two times a day. 05/21/24-Decreased to [address] Gill) senna-docusate (SENNA WITH DOCUSATE SODIUM) 8.6-50 mg per tablet Take 1 tablet by mouth once daily. senna-docusate (SENNA WITH DOCUSATE SODIUM) 8.6-50 mg per tablet Take 1 tablet by mouth once daily as needed for constipation. aspirin, enteric coated (ASPIRIN, ENTERIC COATED) 81 mg EC tablet Take 1 tablet by mouth once daily. metoprolol tartrate, short acting, (LOPRESSOR) 25 mg tablet Take 0.5 tablets by mouth two times a day. Hold for HR <60 and/or SBP <100 docusate sodium (COLACE) 100 mg capsule Take 1 capsule by mouth two times a day as needed for constipation. melatonin 3 mg capsules Take 1 capsule by mouth at bedtime as needed for insomnia. tamsulosin (FLOMAX) 0.4 mg Take 1 capsule by mouth two times a day. ascorbic acid, vitamin C, (VITAMIN C) 500 mg tablet Take 1 tablet by mouth once daily. folic acid 1 mg tablet Take 1 tablet by mouth once daily. magnesium oxide (MAG-OX) 400 mg (241.3 mg magnesium) tablet Take 1 tablet by mouth once daily. polyethylene glycol 3350 17 gram packet Take 1 Packet by mouth once daily. Dissolve dose in 4 - 8 ounces of liquid and take as directed. fluticasone (FLONASE) 50 mcg/actuation nasal spray Use 2 Sprays in each nostril once daily as needed. cholecalciferol (VITAMIN D3) 1,000 unit tab tablet Take by mouth once daily. Taking 25 MCG daily donepezil (ARICEPT) 10 mg tablet Take 1 tablet by mouth daily with breakfast. atorvastatin (LIPITOR) 40 mg tablet Take 1 tablet by mouth once daily. vit C/E/Zn/coppr/lutein/zeaxan (PRESERVISION AREDS-2 ORAL) Take 1 capsule by mouth two times a day. latanoprost (XALATAN) 0.005 % ophthalmic solution Use 1 Drop in both eyes daily at bedtime. cyanocobalamin (VITAMIN B-12) 1,000 mcg tab Take 1 tablet by mouth once daily. pantoprazole DR (PROTONIX) 40 mg tablet Take 40 mg by mouth once daily. lactobacillus combination no.4 (PROBIOTIC) 3 billion cell cap Take 1 capsule by mouth once daily. REVIEW OF SYSTEMS: Review of Systems Constitutional: Negative for chills, fever, malaise/fatigue and weight loss. HENT: Negative for hearing loss and sore throat. Eyes: Negative for blurred vision and double vision. Respiratory: Negative. Cardiovascular: Negative. Genitourinary: Negative for dysuria, frequency, hematuria and urgency. Musculoskeletal: Negative. Skin: Negative. Neurological: Negative for dizziness, seizures, loss of consciousness, weakness and headaches. Endo/Heme/Allergies: Negative for environmental allergies. Does not bruise/bleed easily. Psychiatric/Behavioral: Negative for depression. PHYSICAL EXAMINATION: BP 94/57 Pulse 69 Wt 192 lb (87.1kg) SpO2 96% General: Pleasant gentleman sitting appears comfortable no apparent distress. He is alert and oriented x2 HEENT: Carotid upstrokes are brisk without bruits no JVD appreciated. There is no corneal arcus senilis or xanthelasma noted. Pulmonary: Lungs are clear no rales, wheezes, rhonchi Cardiovascular: Normal S1, S2 with regular rate and rhythm. No murmur, rubs, or gallops Extremities: Warm, well-perfused, no lower extremity edema. 2+ distal pulses CARDIOVASCULAR MEDICINE TESTING: Cardiac Catheterization 01/14/2024: Post- Procedure Diagnosis: Severe multivessel coronary artery disease with right coronary dominant system. Normal LVEDP Hemodynamics: LVEDP: 14 mmHg LV - AORTA: No gradient. Coronary Angiography: Left Main: Large-caliber vessel mild diffuse disease Left Anterior Descending: Large-caliber vessel. The proximal to mid vessel has severe diffuse disease up to 80% luminal narrowing in multiple areas. Circumflex: Large-caliber nondominant vessel. There is a large first obtuse marginal branch which has a focal proximal 90% stenosis Right Coronary Artery: Large-caliber dominant vessel. There is an eccentric 90% stenosis in the proximal vessel. The mid and distal vessel has mild diffuse disease Regadenoson Myoview Stress 12/21/2023: CONCLUSIONS: 1. SPECT Perfusion Study: Abnormal. 2. No evidence of scarred myocardium. 3. There is moderate (10-20%) ischemia in the territory of the RCA. 4. Left ventricle is normal in size. The left ventricle systolic function is normal. 5. Right ventricle is normal in size. 6. This is an intermediate risk scan. Gated Stress IR:3D LVEF % 62 Echocardiogram 04/22/2024: - Exam indication: s/p CABG - The left ventricle is normal in size. Left ventricular systolic function is normal. EF = 61 5% (2D biplane) Indeterminate left ventricular diastolic function. - The right ventricle is normal in size. Right ventricular systolic function is normal. - The left atrial cavity is severely dilated. - The right atrial cavity is mildly dilated. - There are no significant valvular abnormalities. - The visualized aorta is borderline dilated with a maximal dimension of 4.0 cm. - The patient has not had a prior CC echocardiographic exam for comparison. Echocardiogram 12/13/2023: - The left ventricle is normal in size. Left ventricular systolic function is normal. EF = 64 5% (2D biplane) Normal left ventricular diastolic function. - The right ventricle is dilated. Right ventricular systolic function is normal. - The right atrial cavity is dilated. - There are no significant valvular abnormalities. - The visualized aorta is borderline dilated with a maximal dimension of 3.9 cm. - There is mild (1+) tricuspid regurgitation. - Estimated right ventricular systolic pressure is 42 mmHg consistent with mild pulmonary hypertension. Estimated right atrial pressure is 15 mmHg based on IVC assessment. - The patient has not had a prior CC echocardiographic exam for comparison. Carotid Ultrasound 01/28/2024: IMPRESSION RIGHT SIDE Internal carotid artery: <50% stenosis consistent with mild carotid artery disease. External carotid artery: Patent. Vertebral artery: Patent and antegrade flow noted. Innominate artery: Patent. Subclavian artery: Patent. LEFT SIDE Internal carotid artery: <50% stenosis consistent with mild carotid artery disease. External carotid artery: Patent. Vertebral artery: Patent and antegrade flow noted. Subclavian artery: Patent. CABG SURGERY/PROCEDURE DATE: 02/28/2024 SURGEON(S)/PROCEDURALIST(S) AND CUSTOMER CONTACT SPECIALIST(S): Surgeons and Role: * Kodak Iqbal MD - Primary GRAFTS: SCALES end to side mid LAD Vein graft ascending aorta end to side posterior descending (PDA) Vein graft ascending aorta obtuse marginal 1 Left PETER: Skeletonized I have personally reviewed the Electrocardiogram, Laboratory Testing, Echocardiogram, and Stress Test: Nuclear (Non-PET). IMPRESSION: Mr. Mei is a 78 year old gentleman with coronary artery disease found on recent catheterization and subsequent coronary bypass grafting February 2024 (SCALES-LAD, SVG-PDA, SVG-OM1), hypertension, dyslipidemia, and postoperative atrial fibrillation who presents for routine follow-up PLAN AND RECOMMENDATIONS: 1. Coronary artery disease involving [place]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[place] heart without angina pectoris- ICD9: 414.01, ICD10: I25.10 (primary diagnosis) Patient doing well with good functional capacity. He is currently participating cardiac rehab. - COMPREHENSIVE METABOLIC PANEL - COMPLETE BLOOD COUNT 2. Postoperative atrial fibrillation (HCC) - ICD9: 997.1, 427.31, ICD10: I97.89, I48.91 No symptoms concerning for recurrent atrial fibrillation. However he did have a number of events during his hospital course. He is currently participating cardiac rehab and being monitored. I recommended we repeat a 14-day event monitor once he finishes cardiac rehab. If no recurrence of atrial fibrillation may consider discontinuation of Eliquis - OUTSIDE VENDOR CARDIAC OUTPATIENT EXTENDED RHYTHM RECORDING (WITHOUT TELEMETRY) 3. Chronic heart failure with preserved ejection fraction (HCC) - ICD9: 428.9, ICD10: I50.32 - NT PRO BNP 4. Essential hypertension - ICD9: 401.9, ICD10: I10 Well-controlled on current regimen. 5. Mixed hyperlipidemia - ICD9: 272.2, ICD10: E78.2 Maintained on atorvastatin 40 mg daily. Repeat fasting blood work these - COMPREHENSIVE METABOLIC PANEL - LIPID PANEL, FASTING Dhara Gill MD documented in this encounterAcmc Healthcare System04-07-2025 [facility]04-04-[facility] History of Present illness Narrative* Libby Reynolds CPhT - 05/23/2024 3:28 PM EDT Patient is identified through a medication adherence outreach initiative based on pharmacy claims data from: [email or web address] Medication Adherence Category: Hypertension First Review Attribution Status: Questionable Attribution - sees a [facility] specialist but not PCP or utilizes [facility] services but unengaged with [facility] Primary Care Medication(s) Lisinopril 40 mg Medication Status per portal/Epic Reconcile Dispense: Not filled - Outreach patient Medication Status per Profile Review: Provider discontinued Is medication on PT PAL med list? No, Call pharmacy to discontinue prescription. Patient appropriate for outreach? No Reason patient not appropriate for outreach: pt resides in assisted living where they handle his medications Libby Reynolds CPhT [facility] Based Care Pharmacy Team documented in this encounterAcmc Healthcare System04-02-2025 [facility]04-02-2025 History of Present illness Narrative* Carla Wign RN - 05/21/2024 11:50 AM EDT Patient scheduled for a follow up phone visit with the heart failure clinic nurse for review of heart failure symptoms. Spoke with patient's nurse, Dana, from [facility]. Weight gain: No Weight: 186.8 lbs Edema: Yes-Improved SOB with activity: No SOB at rest: No SOB when lying flat: No # of pillows: 1 pillow Abdominal distention: No Changed in appetite: No Cough: No Heart Failure specific medications: (list current, note updates, changes, prior intolerance) BB: Metoprolol Tartrate MORE/ARB/ARNI: NONE-Low BP MRA: NONE-Age SGLT2: NONE-Age DIURETIC: Lasix-Decreased to 40 mg daily per cardiology OTHER: Eliquis, Potassium Per nurse, patient is doing well with decreased Lasix. BP stable at 112/78. Weight stable. Swellinggreatly improved. No complaints of SOB/PND. Follow up appointment scheduled with ED on 08/20/24 or as needed. Carla Wing RN documented in this encounterAcmc Healthcare System03-28-2025 Telephone encounter Note * Telephone Encounter - Jason Sutton - 05/16/2024 11:46 AM EDT Patient has been scheduled for CT and Cysto Thank you Jason Sutton [facility]03-28-2025 Miscellaneous Notes* Telephone Encounter - Jason Sutton - 05/16/2024 11:46 AM EDT Patient has been scheduled for CT and Cysto Thank you Jason Sutton * Telephone Encounter - Isadora Marrero RN - 05/16/2024 11:27 AM EDT On called back and is aware of the plan and will schedule. Transferred back to [facility] to get scheduled. Aware of message. * Telephone Encounter - Isadora Marrero RN - 05/15/2024 1:30 PM EDT Patient gave verbal permission in chart to leave a detailed message on designated line previously in demographics. Gave complete Detailed message to patient on voicemail, and instructed if any questions or concernswith message to call the office back at [phone] and ask for a Nurse. Advised to call back to get scheduled. * Telephone Encounter - Kobe Rodriguez APRN.NAHUM PIEDRA - 05/11/2024 6:15 PM EDT Team - Inform patient he still has blood in his urine. I recommend a CT Urogram and Cystoscopy to identify the cause of the blood in the urine. Also he needs to hydrate more with water as his kidney function was a little decreased compare to his last kidney function test. Orders signed Orders Placed This Encounter CYSTO DIAGNOSTIC Order Comments: 78y/o male with blood in urine Scheduling Instructions: CT first then schedule Cysto [address] UROGRAM WO/W IVCON Order Comments: 78y/o male with blood in urine. 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 Discontinue saline lock post exam. If Pt. has a central line or IVAD, may access for administration according to line specific nursing protocol. Once exam is complete flush line and de-access according to line specific nursing protoco l in the CT contrast administration guidelines link. Dispense: 1 Each Refill: 0 0.9 % sodium chloride (NACL 0.9%) infusion Sig: Administer at rate defined per CT contrast administration specifications. To be provided with radiology test. Dispense: 150 mL Refill: 0 Kobe Rodriguez DNP, TADEO Department of Urology [facility] documented in this encounterAcmc Healthcare System03-28-2025 Telephone encounter Note * Telephone Encounter - Isadora Marrero RN - 05/16/2024 11:27 AM EDT On called back and is aware of the plan and will schedule. Transferred back to [facility] to get scheduled. Aware of message. [facility]03-27-2025 Telephone encounter Note* Telephone Encounter - Lesly Ferris RN - 05/15/2024 1:52 PM EDT Héctora called and given new instructions. New Lasix instructions called into [facility] per their request. Patient has appointment scheduled for 05/26/24. Lesly Ferris RN [facility]03-27-2025 Telephone encounter Note* Telephone Encounter - Lesly Ferris RN - 05/15/2024 1:52 PM EDT Images from the original note were not included. Dhara Gill MD You1 hour ago (12:28 PM) It looks like they took him off lisinopril. Holding the metoprolol is going to be of no benefit in controlling his hypotension. He likely is on too much diuretics. However, I have not seen the patient since he underwent bypass surgery. If he has no volume overload, then he should be on a reduced dose of Lasix i.e. 40 mg once per day with increases to twice a day as needed for weight gain greater than 3 to 4 pounds in 24 hours Jose [facility]03-27-2025 Miscellaneous Notes* Telephone Encounter - Lesly Ferris RN - 05/15/2024 1:52 PM EDT Denis called and given new instructions. New Lasix instructions called into [facility] per their request. Patient has appointment scheduled for 05/26/24. Lesly Ferris RN * Telephone Encounter - Lesly Ferris RN - 05/15/2024 1:52 PM EDT Images from the original note were not included. Dhara Gill MD You1 hour ago (12:28 PM) It looks like they took him off lisinopril. Holding the metoprolol is going to be of no benefit in controlling his hypotension. He likely is on too much diuretics. However, I have not seen the patient since he underwent bypass surgery. If he has no volume overload, then he should be on a reduced dose of Lasix i.e. 40 mg once per day with increases to twice a day as needed for weight gain greater than 3 to 4 pounds in 24 hours Jose * Telephone Encounter - Lesly Ferris RN - 05/15/2024 11:05 AM EDT Received fax from [facility] where the patient is a resident. They are asking for the patient's med list and vital signs be reviewed. BP has been frequently low leading to the holding of his metoprolol. They also say bp may be elevated with activity but they are unable to get information from [facility]. Next office visit 08/18/24 BP readings Date AM PM 05/02 98/58 132/82 05/03 90/64 112/64 05/04 90/60 102/74 05/05 118/72 99/78 05/06 96/58 130/72 05/07 118/70 05/08 84/64 99/74 05/09 88/58 153/96 05/10 142/90 132/92 05/11 112/72 132/72 05/12 100/58 138/88 05/13 90/50 Metoprolol 12.5 mg BID Hold for BP <100 or HR <60 Lasix 40 mg BID Please review and advise Lesly Ferris RN documented in this encounterAcmc Healthcare System03-27-2025 Telephone encounter Note * Telephone Encounter - Isadora Marrero RN - 05/15/2024 1:30 PM EDT Patient gave verbal permission in chart to leave a detailed message on designated line previously in demographics. Gave complete Detailed message to patient on [employer], and instructed if any questions or concernswith message to call the office back at [phone] and ask for a Nurse. Advised to call back to get scheduled. [facility]03-27-2025 Telephone encounter Note* Telephone Encounter - Lesly Ferris RN - 05/15/2024 11:05 AM EDT Received fax from [facility] where the patient is a resident. They are asking for the patient's med list and vital signs be reviewed. BP has been frequently low leading to the holding of his metoprolol. They also say bp may be elevated with activity but they are unable to get information from [facility] Card[facility]. Next office visit 08/18/24 BP readings Date AM PM 05/02 98/58 132/82 05/03 90/64 112/64 05/04 90/60 102/74 05/05 118/72 99/78 05/06 96/58 130/72 05/07 118/70 05/08 84/64 99/74 05/09 88/58 153/96 05/10 142/90 132/92 05/11 112/72 132/72 05/12 100/58 138/88 05/13 90/50 Metoprolol 12.5 mg BID Hold for BP <100 or HR <60 Lasix 40 mg BID Please review and advise Lesly Ferris RN [facility]03-25-2025 Miscellaneous Notes* Telephone Encounter - Nickie Ahumada APRN.CNP - 05/13/2024 1:12 PM EDT Adding Sole as a FYI. Please call patient to verify how much lasix he is taking. If he is taking Lasix 40mg BID, decrease to 40mg daily. BMP in 1-2 week to further evaluate kidney status. Nickie Crook APRN.CNP documented in this encounterAcmc Healthcare System03-25-2025 Telephone encounter Note * Telephone Encounter - Nickie Ahumada APRN.CNP - 05/13/2024 1:12 PM EDT Adding Sole as a FYI. Please call patient to verify how much lasix he is taking. If he is taking Lasix 40mg BID, decrease to 40mg daily. BMP in 1-2 week to further evaluate kidney status. Nickie Crook APRN.CNP [facility]03-23-2025 Telephone encounter Note* Telephone Encounter - Kobe Rodriguez APRN.CNP, NAHUM - 05/11/2024 6:15 PM EDT Team - Inform patient he still has blood in his urine. I recommend a CT Urogram and Cystoscopy to identify the cause of the blood in the urine. Also he needs to hydrate more with water as his kidney function was a little decreased compare to his last kidney function test. Orders signed Orders Placed This Encounter [facility] Order Comments: 78y/o male with blood in urine Scheduling Instructions: CT first then schedule Cysto [address] UROGRAM WO/W IVCON Order Comments: 78y/o male with blood in urine. 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 Discontinue saline lock post exam. If Pt. has a central line or IVAD, may access for administration according to line specific nursing protocol. Once exam is complete flush line and de-access according to line specific nursing protoco l in the CT contrast administration guidelines link. Dispense: 1 Each Refill: 0 0.9 % sodium chloride (NACL 0.9%) infusion Sig: Administer at rate defined per CT contrast administration specifications. To be provided with radiology test. Dispense: 150 mL Refill: 0 Kobe Rodriguez DNP, TADEO Department of Urology [facility]03-[facility] Telephone encounter Note* Telephone Encounter - Carla Wing RN - 05/07/2024 4:31 PM EDT Call placed to patient's son, Indy. Explained that patient does not need to see [facility] and Dr. Irving same week. Will change appointment to phone visit with Rena to check on weight and swelling. Indy to call after Dr. Gill's visit to schedule a follow up with [facility]. Idny verbalized understanding. 05/21/24 appointment changed to phone visit. [facility]03-19-2025 Miscellaneous Notes* Telephone Encounter - Carla Wing RN - 05/07/2024 4:31 PM EDT Call placed to patient's son, Indy. Explained that patient does not need to see [facility] and Dr. Irving same week. Will change appointment to phone visit with [facility] to check on weight and swelling. Indy to call after Dr. Gill's visit to schedule a follow up with [facility]. Indy verbalized understanding. 05/21/24 appointment changed to phone visit. * Telephone Encounter - Derek Russ APRN.CNP - 05/07/2024 4:10 PM EDT Thanks for the update I see where he is coming in soon for and Dr Gill --we could ask the familyif they want to reschedule us since we are both that same week and his swelling is better... we could do another phone visit in May to review his swelling. Camila * Telephone Encounter - Carla Wing RN - 05/07/2024 12:23 PM EDT Phone visit completed for update on patient's edema. Spoke with patient's caregiver, Prachi. Memetates that the edema has improved but still noted to thighs. Weight slowly decreasing (down 3 lbs). Lungs clear no cough/PND noted. States Dr. Iqbal increased Lsix to 40 mg BID and patient has been improving with this change. Patient has been having lower SBP in am (90's/50's) and the facility has had to hold patient's morning Metoprolol every day this week. Patient has been getting evening dose. Will forward these findings to Cirilo Russ CNP for review/update. Patient scheduled with her on 05/21/24 documented in this encounterAcmc Healthcare System03-19-2025 Telephone encounter Note * Telephone Encounter - Derek Russ APRN.CNP - 05/07/2024 4:10 PM EDT Thanks for the update I see where he is coming in soon for and Dr Gill --we could ask the familyif they want to reschedule us since we are both that same week and his swelling is better... we could do another phone visit in May to review his swelling. Camila [facility]03-19-2025 Telephone encounter Note* Telephone Encounter - Arlyn Scott LPN - 05/07/2024 3:10 PM EDT Phoned Rhona and updated. Arlyn Scott LPN [facility]03-19-2025 Miscellaneous Notes* Telephone Encounter - Arlyn Scott LPN - 05/07/2024 3:10 PM EDT Phoned Rhona and updated. Arlyn Scott LPN * Telephone Encounter - Lenin Chaudhary MD - 05/07/2024 2:14 PM EDT Reviewed and agree. * Telephone Encounter - Gege Rodriges, RN - 05/07/2024 2:01 PM EDT Rhona- [facility], reports patient is going to start cardiac rehab on Sunday, and requested discharge from [facility]. Rhona discharged pt today via phone. documented in this encounterAcmc Healthcare System03-19-2025 Telephone encounter Note * Telephone Encounter - Lenin Chaudhary MD - 05/07/2024 2:14 PM EDT Reviewed and agree. [facility]03-19-2025 Telephone encounter Note* Telephone Encounter - Gege Rodriges RN - 05/07/2024 2:01 PM EDT Rhona- [facility], reports patient is going to start cardiac rehab on Sunday, and requested discharge from [facility]. Rhona discharged pt today via phone. [facility]03-19-2025 Telephone encounter Note* Telephone Encounter - Carla Wing RN - 05/07/2024 12:23 PM EDT Phone visit completed for update on patient's edema. Spoke with patient's caregiver, Prachi. Memetates that the edema has improved but still noted to thighs. Weight slowly decreasing (down 3 lbs). Lungs clear no cough/PND noted. States Dr. Iqbal increased Lsix to 40 mg BID and patient has been improving with this change. Patient has been having lower SBP in am (90's/50's) and the facility has had to hold patient's morning Metoprolol every day this week. Patient has been getting evening dose. Will forward these findings to Cirilo Russ CNP for review/update. Patient scheduled with her on 05/21/24 [facility]03-19-2025 [facility]03-19-2025 History of Present illness Narrative* Carla Wing RN - 05/07/2024 12:10 PM EDT Patient scheduled for a follow up phone visit with the heart failure clinic nurse for review of heart failure symptoms after increased diuretic. This visit was completed with patient's caregiver, Prachi. Weight gain: No down 3 lbs (187.2 lbs) Edema: Yes-to thighs SOB with activity: Yes SOB at rest: No SOB when lying flat: No # of pillows: 1-2 pillows Abdominal distention: No Changed in appetite: No Cough: No Phone visit completed for update on patient's edema. Spoke with patient's caregiver, Prachi. Memetates that the edema has improved but still noted to thighs. Weight slowly decreasing (down 3 lbs). Lungs clear no cough/PND noted. States Dr. Iqbal increased Lsix to 40 mg BID and patient has been improving with this change. Patient has been having lower SBP in am (90's/50's) and the facility has had to hold patient's morning Metoprolol every day this week. Patient has been getting evening dose. Will forward these findings to Cirilo Russ CNP for review/update. Patient scheduled with her on 05/21/24 Heart Failure specific medications: (list current, note updates, changes, prior intolerance) BB: Metoprolol Tartrate MORE/ARB/ARNI: NONE-DC'd MRA: NONE SGLT2: NONE DIURETIC: Lasix OTHER: Potassium, Eliquis Next visit scheduled on 05/21/24 with ED or as needed. documented in this encounterAcmc Healthcare System03-18-2025 [facility]03-18-2025 History of Present illness Narrative* Nickie Medina CPhT - 05/06/2024 1:43 PM EDT Patient is identified through a medication adherence outreach initiative based on pharmacy claims data from: [email or web address] Medication Adherence Category: Statins First Review Attribution Status: Correct Attribution Medication(s) Atorvastatin 40 mg Medication Status per portal/PT PAL Reconcile Dispense: Filled on time - On or before next fill date Date Filled (MM/DD): 04/29 Day Supply: 14 Medication Status per Profile Review: No issues per profile review Patient appropriate for outreach? No Reason patient not appropriate for outreach:Patient filled on time / no adherence concerns to be addressed Nickie Medina CPhT [facility] Team documented in this encounterAcmc Healthcare System03-17-2025 [facility]03-17-2025 History of Present illness Narrative* Nickie Ozuna CPhT - 05/05/2024 2:37 PM EDT Patient is identified through a medication adherence outreach initiative based on pharmacy claims data from: [email or web address] Medication Adherence Category: Hypertension First Review Attribution Status: Correct Attribution Medication(s) Lisinopril 40 mg Medication Status per portal/Epic Reconcile Dispense: Not filled - Outreach patient Medication Status per Profile Review: No issues per profile review Patient appropriate for outreach? No Reason patient not appropriate for outreach: PT in [place] facility meds ordered thru [facility] pharmacy Nickie Ozuna CPhT [facility] Team documented in this encounterAcmc Healthcare System03-17-2025 [facility] History of Present illness Narrative* Lenin Chaudhary MD - 05/05/2024 12:59 PM EDT Chief Complaint Patient presents with: Follow Up: 3 month HPI Homero Mei is a 78 year old male who presents here today for Above Complaints. Accompanied today by his son Indy. S/p CABG x3 on 02/[address] Iqbal. Scheduled for cardiac rehab on Sunday. Doing PT 2 days per week. Developed a fib after his surgery on metoprolol and Eliquis. Has had darker stools, but this startedwhen he started on iron supplement for anemia. Has been seeing wound care for wound on left medial calf which finishes this week. Admits to LE edema which is improving with lasix and compression stockings. Denies hematochezia, chest pain, SOB, palpitations, lightheadedness/dizziness, syncope. BP well controlled on current regimen. Monitored at [place] [facility], but did not bring readings today. No concerns expressed to family. Taking Aricept for alzheimer's dementia. Son notes that patient has forgotten which apartment is his on occasion, so memory may be worsening. Overall, medication is still helping without side effects. BPH: Getting up 2-3 times per night with Flomax. Denies weak stream, straining, dysuria, hematuria. Past medical history, appointments, medications, allergies reviewed. Previous Medical History PAST MEDICAL HISTORY Diagnosis Date Alzheimer's dementia without behavioral disturbance, psychotic disturbance, mood disturbance, or anxiety, unspecified dementia severity, unspecified timing of dementia onset (HCC) Ascending aorta dilatation (HCC) borderline Benign prostatic hyperplasia with urinary frequency Bilateral carpal tunnel syndrome s/p release on right Bilateral inguinal hernia s/p mesh BPH (benign prostatic hyperplasia) CAD (coronary artery disease) 12/21/2023 abnormal stress test. 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 Iqbal on 02/28/24 Scalp psoriasis Unspecified essential hypertension Upper GI bleed 05/2023 Vitamin D insufficiency Previous Surgical History PAST SURGICAL HISTORY Procedure Laterality Date BACK SURGERY HX CABG (3) VEIN GRAFTS & ARTERIAL GRAFT(S) 02/28/2024 CABG x 3 (Scales-LAD, SVG- PDA, SVG- OM1) with Dr. Iqbal on 02/28/24 COLON SURGERY HX COLONOSCOPY FLX DX W/COLLJ SPEC WHEN PFRMD , 11/19, 01/24, 01/29 COLONOSCOPY FLX DX W/COLLJ SPEC WHEN PFRMD 03/22/2015 Colonoscopy-repeat 5 years COLONOSCOPY FLX DX W/COLLJ SPEC WHEN PFRMD 11/23/2020 COLONOSCOPY GEN ANES 04/12/2020 Repeat in 1 year COLONOSCOPY GEN ANES 04/26/2020 3 polyps removed. 40 mm, 5 mm, 5mm. repeat in 6 months. DISKECTOMY, LUMBAR, SINGLE SP 2006 HERNIA REPAIR HX mesh INGUINAL HERNIA REPAIR HX 07/19/2010 bilateral inguinal hernia repair with mesh NEUROPLASTY &/TRANSPOS MEDIAN NRV CARPAL TUNNE Right 03/26/2015 Carpal tunnel decomp right PAST SURGICAL HISTORY OF Left 04/10/2019 arthroscopic knee for torn meniscus RHINP PRIM LAT&ALAR CRTLGS&/ELVTN NASAL TI 2009 Rhinoplasty SKIN BIOPSY HX Family History FAMILY HISTORY Problem Relation Age of Onset Heart Mother CHF Hypertension Mother Stroke Father Hypertension Father Patient Allergies ALLERGIES No Known Allergies Current Medications Current Outpatient Medications on File Prior to Visit Medication Sig ELIQUIS 5 mg tab(s) Take 5 mg by mouth two times a day. lisinopril (ZESTRIL) 40 mg tablet Take 40 mg by mouth once daily. ferrous sulfate 325 mg (65 mg iron) tablet Take 325 mg by mouth every 24 hours. potassium chloride ER (KLOR-CON) 20 mEq tablet Take 1 tablet by mouth two times a day. furosemide (LASIX) 40 mg tablet Take 1 tablet by mouth two times a day. senna-docusate (SENNA WITH DOCUSATE SODIUM) 8.6-50 mg per tablet Take 1 tablet by mouth once daily. senna-docusate (SENNA WITH DOCUSATE SODIUM) 8.6-50 mg per tablet Take 1 tablet by mouth once daily as needed for constipation. acetaminophen (TYLENOL) 500 mg tablet Take 2 tablets by mouth every 8 hours as needed for pain. aspirin, enteric coated (ASPIRIN, ENTERIC COATED) 81 mg EC tablet Take 1 tablet by mouth once daily. metoprolol tartrate, short acting, (LOPRESSOR) 25 mg tablet Take 0.5 tablets by mouth two times a day. Hold for HR <60 and/or SBP <100 lactobacillus combination no.4 (PROBIOTIC) 3 billion cell cap Take 1 capsule by mouth once daily. docusate sodium (COLACE) 100 mg capsule Take 1 capsule by mouth two times a day as needed for constipation. melatonin 3 mg capsules Take 1 capsule by mouth at bedtime as needed for insomnia. tamsulosin (FLOMAX) 0.4 mg Take 1 capsule by mouth two times a day. ascorbic acid, vitamin C, (VITAMIN C) 500 mg tablet Take 1 tablet by mouth once daily. folic acid 1 mg tablet Take 1 tablet by mouth once daily. magnesium oxide (MAG-OX) 400 mg (241.3 mg magnesium) tablet Take 1 tablet by mouth once daily. polyethylene glycol 3350 17 gram packet Take 1 Packet by mouth once daily. Dissolve dose in 4 - 8 ounces of liquid and take as directed. fluticasone (FLONASE) 50 mcg/actuation nasal spray Use 2 Sprays in each nostril once daily as needed. cholecalciferol (VITAMIN D3) 1,000 unit tab tablet Take by mouth once daily. Taking 25 MCG daily donepezil (ARICEPT) 10 mg tablet Take 1 tablet by mouth daily with breakfast. atorvastatin (LIPITOR) 40 mg tablet Take 1 tablet by mouth once daily. vit C/E/Zn/coppr/lutein/zeaxan (PRESERVISION AREDS-2 ORAL) Take 1 capsule by mouth two times a day. latanoprost (XALATAN) 0.005 % ophthalmic solution Use 1 Drop in both eyes daily at bedtime. cyanocobalamin (VITAMIN B-12) 1,000 mcg tab Take 1 tablet by mouth once daily. pantoprazole DR (PROTONIX) 40 mg tablet Take 40 mg by mouth once daily. No current facility-administered medications on file prior to visit. Social History Social History Tobacco Use Smoking status: Never Smokeless tobacco: Never Vaping Use Vaping status: Never Used Substance Use Topics Alcohol use: Not Currently Drug use: Never Review of Symptoms REVIEW OF SYSTEMS GENERAL: No weight loss, malaise or fevers RESPIRATORY: Negative for cough, hemoptysis, wheezing, COPD, dyspnea or shortness of breath CARDIOVASCULAR: Negative for chest pain, leg swelling, hypertension, CHF or palpitations GI: No nausea, vomiting, or diarrhea SKIN: Negative for lesions, rash, and itching EXAM: BP 104/60 Pulse 73 Resp 16 Wt 88 kg (194 lb) SpO2 99% BMI 26.50 kg/m General Appearance: Well appearing, AOx2 (Person, place), in no acute distress, well-hydrated, wellnourished.. Skin: Skin color, texture, turgor normal, no suspicious rashes or lesions. Lungs: Lungs clear to auscultation. No wheezing, rhonchi, rales.. Heart: RRR, no RGM. Abdomen: Normal abdominal exam, Abdomen soft, non-tender. Bowel sounds normal. No masses, organomegaly. Extremities: No deformities, edema, skin discoloration, clubbing or cyanosis. Good capillary refill. . Health Maintenance List RSV Vaccine(1 - 1-dose 75+ series) Never done Advance Directive Discussion due on 02/20/2024 Covid-19 Vaccine( season) due on 02/05/2025 LDL Cholesterol due on 02/05/2025 Annual PCP Team Chronic Disease Visit due on 02/05/2025 BP Controlled (<130/80) due on 05/05/2025 DTaP,Tdap,Td Vaccine(3 - Td or Tdap) due on 09/06/2026 Diabetes Screening due on 04/15/2027 Influenza Vaccine Completed Hepatitis C Screening Completed Shingrix Vaccine Completed Pneumococcal Vaccine: 50+ Completed Colorectal Cancer Screening Discontinued Data reviewed Latest Ref Rng 03/26/2024 04/15/2024 WBC 3.70 - 11.00 k/uL 7.72 6.37 RBC 4.20 - 6.00 m/uL 3.28 (L) 3.51 (L) Hemoglobin 13.0 - 17.0 g/dL 9.3 (L) 9.6 (L) Hematocrit 39.0 - 51.0 % 29.4 (L) 30.6 (L) MCV 80.0 - 100.0 fL 89.6 87.2 MCH 26.0 - 34.0 pg 28.4 27.4 MCHC 30.5 - 36.0 g/dL 31.6 31.4 RDW-CV 11.5 - 15.0 % 15.8 (H) 14.9 Platelet Count 150 - 400 k/uL 253 229 MPV 9.0 - 12.7 fL 10.6 10.9 Neut% % 71.5 Abs Neut (ANC) 1.45 - 7.50 k/uL 5.53 Lymph% % 16.5 Abs Lymph 1.00 - 4.00 k/uL 1.27 Buchanan% % 8.3 Abs Buchanan <0.87 k/uL 0.64 Eosin% % 3.0 Abs Eosin <0.46 k/uL 0.23 Baso% % 0.4 Abs Baso <0.11 k/uL 0.03 Immature Gran % % 0.3 IMMATURE GRANS (ABS) <0.10 k/uL <0.03 NRBC /100 WBC 0.0 Absolute nRBC <0.01 k/uL <0.01 <0.01 DTYPE Auto Glucose 74 - 99 mg/dL 112 (H) 103 (H) BUN 9 - 24 mg/dL 17 17 Creatinine 0.73 - 1.22 mg/dL 0.96 0.97 Sodium 136 - 144 mmol/L 141 141 Potassium 3.7 - 5.1 mmol/L 4.1 4.3 Chloride 98 - 107 mmol/L 107 105 CO2 22 - 30 mmol/L 25 26 Anion Gap 8 - 15 mmol/L 9 10 Calcium 8.5 - 10.2 mg/dL 9.3 9.1 eGFR >=60 mL/min/1.73m 82 81 NT Pro BNP <450 pg/mL 899 (H) Legend: (L) Low (H) High ASSESSMENT/PLAN: 1. Coronary artery disease involving [place]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[place] heart without angina pectoris- ICD9: 414.01, ICD10: I25.10 (primary diagnosis) Asymptomatic on medical management. F/u with cardiology as scheduled. No changes to regimen. 2. Atrial fibrillation, unspecified type (HCC) - ICD9: 427.31, ICD10: I48.91 RRR today on exam. Continue anticoagulation and beta darcy. Asymptomatic on medical management. F/u with cardiology as scheduled. No changes to regimen. 3. Essential hypertension - ICD9: 401.9, ICD10: I10 - Controlled - Continue current medications - Recommend home blood pressure monitoring, to bring results to next visit - Encouraged sodium restriction, DASH or Mediterranean diet - Recommend regular aerobic exercise 4. Mixed hyperlipidemia - ICD9: 272.2, ICD10: E78.2 - Continue current medications - Counseled on healthy diet and regular exercise 5. Bilateral lower extremity edema - ICD9: 782.3, ICD10: R60.0 Resolved on current regimen. 6. Alzheimer's dementia without behavioral disturbance, psychotic disturbance, mood disturbance, oranxiety, unspecified dementia severity, unspecified timing of dementia onset (HCC) - ICD9: 331.0, 294.10, ICD10: G30.9, F02.80 Gradually worsening. Patient and family not interested in new rx such as Namenda. Recheck at [facility]. 7. Benign prostatic hyperplasia with nocturia - ICD9: 600.01, 788.43, ICD10: N40.1, R35.1 Improved on current regimen. Refusing rx for finasteride. Will monitor. Lenin Chaudhary MD documented in this encounterAcmc Healthcare System03-17-2025 Telephone encounter Note * Telephone Encounter - Montez Lopez - 05/05/2024 11:03 AM EDT [facility]03-17-2025 Miscellaneous Notes* Telephone Encounter - Montez Lopez - 05/05/2024 11:03 AM EDT 09-01-[address] Vazquez documented in this encounterAcmc [facility] System03-17-2025 Instructions* Patient Instructions* Melani Curtis APRN.TADEO - 05/05/2024 10:47 AM EDT Images from the original note were not included. Miralax/Dulcolax Bowel Prep For this bowel preparation you will need to vegetable picker the following medications at any pharmacy. Four (4) Dulcolax tablets (generic name Bisacodyl) 238 Gram (or 8.3 oz.) Bottle of Miralax (Generic name Polyethylene Glycol) A responsible family member or friend MUST be available to drive you home after your procedure. Youare NOT ALLOWED to drive, take a taxi, or leave the [facility] ALONE. If you do NOT have a responsible motorcycle delivery driver (family member or friend) to take you home, your exam cannot be done with sedation and WILL BE cancelled. Please remove all jewelry if possible. The [facility] or [facility] (depending on where your procedure is scheduled) will call you THE DAY BEFORE YOUR PROCEDURE with your arrival time. The time in My Chart is just an estimate. Please arriveat the time you are told the day before. Medication BLOOD THINNERS - Blood thinner medication may need to be stopped or adjusted before your colonoscopy, such as Coumadin, Plavix, Paradaxa and Eliquis. - Contact prescribing physician regarding holdingany blood thinner medication. If you were seen in the general surgery office, please follow their instructions as to if and when to hold any blood thinners. If you are having this procedure done by the request of any other providers and were NOT seen in our office, please contact your physician's office to see if you need to hold any medication prior to your procedure. INSULIN and/or DIABETIC MEDICATION -Please call the doctor that monitors your glucose levels. Your insulin dosage needs to be adjusted due to the diet restrictions required with this bowl preparation(please bring your diabetic medication with you on the day of your procedure). If you are on any of the listed medications below, please follow the instructions as to when to stop your medications. If you have any questions or concerns regarding your diabetic medication, pleasecontact your ordering providers office. Failure to hold the medications below could lead to the canc ellation of your procedure. Diabetic Medication Day Prior to Surgery Day of Surgery Communication Oral hypoglycemics (except SGLT2 inhibitors) Continue Hold all on DOS Nurse verifies patient did not take oral medications. Blood glucose checked in preoperative area SGLT2 inhibitors Canagliflozin (Invokana) Dapagliflozin (Farxiga) Empaglifozin (Jardiance) Hold 3 days preoperatively Hold Nurse verifies patient has not taken the medication 3 days preoperatively and has held DOS. Blood glucose check on arrival. SGLT2 inhibitor Ertugliflozin (Steglatro) Hold 4 days preoperatively Hold Nurse verifies patient has not taken the medication 4 days preoperatively and has held DOS. Blood glucose check on arrival. Non-insulin injectables (Except GLP-1 agonists) Take normal dose Hold all Nurse verifies patient has held. Blood glucose check on arrival GLP-1 Agonists (Injected) Semaglutide (Ozempic/Wegovy) Lixisenatide (Adlyxin) Tirzepatide (Mounjaro/Zepbound) Dulaglutide (Trulicity) Hold the week prior to surgery Hold Nurse verifies time of last dose and documents. Assess for symptoms of satiety or nausea. If patient took the week prior to surgery or on DOS, contact the anesthesiologist. GLP-1 Agonists (Daily Injected) Exenatide (Bydureon/ Byetta) Liraglutide (Victoza/Saxenda) Insulin glargine / lixisenatide (Soliqua) Continue Hold on DOS GLP-1 Agonists (oral) Semaglutide (Reybelsus) Continue Hold on DOS Nurse verifies time of last dose and documents. Assessfor symptoms of satiety or nausea. If patient took DOS, contact the anesthesiologist. Insulin pump Follow protocol Follow protocol Nurse verifies settings. Blood glucose check on arrival Long- or intermediate-acting insulin (Levemir, Lantus, NPH etc.) Take 75% of normal dose the night before surgery if possible Check fasting AM glucose. If 200 or greater, take half the prescribed dose. If under 200, hold AM dose. Nurse verifies dose and time. Blood glucose check on arrival. If you take GLP-1 agonists such as semaglutide (Ozempic, Wegovy, Rybelsus), dulaglutide (Trulicity), liraglutide (Victoza, Saxenda), exenatide (Byetta, Bydureon), or lixisenatide (Adylyxin), tirzepatide (MOUNJARO). if you take medication once or twice daily, do not take your medication for 1 day prior to your procedure if you take these medications weekly, do not take your medication the week ( hold the prior week's dose) before your procedure If you take aspirin, take it and ALL other medication prescribed by your doctor unless told otherwise by either the physician's office or Pre-Admission testing if having procedure done in a hospital setting (PACC) with a small sip of water only. You may take over the counter medications if you havea headache. TAKE ALL BLOOD PRESSURE MEDICATION THE MORNING OF THE PROCEDURE. Failure to take usual morning blood pressure meds may result in cancellation of the procedure if hypertensive. Hold erectile dysfunction medications for 48 hrs. prior to the procedure. Five (5) days before your colonoscopy Do not take medications that stop Diarrhea - Imodium, Kaopectate, or Pepto Bismol Do NOT take fiber supplements - Metamucil, Citrucel, FiberCon Do NOT take products that contain iron (check vitamin label) Two (2) to three (3) days before your colonoscopy DO NOT EAT HIGH FIBER FOODS No beans, seeds (flax, sunflower, quinoa), nuts, popcorn, multigrain bread salad/vegetables, or fresh and dried fruit. Do not eat red meat 3 days before your procedure. YOU MAY EAT Lean Chicken breast, fish, eggs, and soup YOU MUST BE ON CLEAR LIQUIDS FOR 2 FULL DAYS PRIOR TO PROCEDURE Two (2) Days before your colonoscopy ONLY DRINK CLEAR LIQUIDS for 2 DAYs BEFORE YOUR COLONOSCOPY. DO NOT EAT ANY SOLID FOODS. Drink at least eight (8) ounces of clear liquids every hour after waking up. Clear fluids include: Water, apple juice, white grape juice, broth (beef, chicken or vegetable), coffee and/or tea (NO DAIRY, MILK OR CREAMER) clear carbonated beverages (sprite, 7-up, alina-silvia), Gatorade, or other sport drinks, Femi-Aid, Jell-O, Gummy Bears and popsicles. NOTHING RED IN COLOR. DO NOT DRINK ALCOHOL the day before or the day of your procedure. DAY 1 (2 days before your colonoscopy) Clear Liquids all day, you may have water, coffee or tea- NO DAIRY, Clear broth (Beef, Chicken or vegetable) Clear carbonated beverages, apple juice, white grape juice , Gatorade, Jell-O, Femi-Aid, and popsicles. NO DAIRY, TOMATO, OR ORANGE JUICE. NO RED OR PURPLE! DAY 2 - (day before your colonoscopy) SAME DAY 1, Continue clear fluids and then follow the instructions below~ 8:00 AM - May Mix the Miralax prep with 64 oz. of Gatorade or any of the clear fluids listed above and place in fridge. 1:00 PM - Take 2 Dulcolax Tablets with 8oz of water 3:00 PM - Start to drink the Miralax mixture. - Finish by midnight 4:00 PM - Take 2 Dulcolax tablets with 8oz of water. You may continue to drink clear liquids while you are taking your prep and after you finish as longas it is before midnight. Drink lots of fluids so you don't become dehydrated. Nothing to drink after midnight unless instructed otherwise by nursing staff and/or physician. Please remember to take your normal medications the morning of your procedure with a small sip of water especially your blood pressure medications. If you are diabetic, you need to contact your physiciansregarding how to take your diabetic medications and/or insulin during the prepping period and the day of the procedure. The times above are a general guide. You may change the times if needed to accommodate your schedule. Example, instead of taking your first step at 1 PM you may take your first step at 6 PM. Your time frames would be: 6 PM take 2 Dulcolax tablets, at 8 PM you would start drinking the Miralax mixture and at 9 PM you would take two more Dulcolax tablets. Any questions please call [phone] or [phone] and ask for the general surgery nurses. What is a colonoscopy? A colonoscopy is an outpatient procedure in which the inside of the large intestine (colon and rectum) is examined. A colonoscopy is commonly used to evaluate gastrointestinal symptoms, such as rectal and intestinal bleeding, abdominal pain, or change in bowel habits. Colonoscopies are also performed in individuals without symptoms to check for colorectal polyps or cancer. A screening colonoscopyis recommended for anyone 50 years of age or older, and for anyone with parents, siblings, or children with a history of colorectal cancer or polyps. What happens before a colonoscopy? To have a successful colonoscopy, your bowel must be empty so that your physician can clearly view the colon. To do this, it is very important to read and follow all of the instructions given to you at least 2 weeks BEFORE your exam. If your bowel is not empty, your colonoscopy will not be successful and may have to be repeated. If you feel nauseated or vomit while taking the bowel preparation, wait 30 minutes before drinking more fluid and start with small sips of solution. Some activity (such as walking) may help decrease the nausea you are feeling. If the nausea persist, please contact the office at [phone] and askfor the provider's office that scheduled your colonoscopy or nurse electronic page makeup system operator at [phone]. You may experience skin irritation around the anus due to the passage of liquid stool. To prevent and treat skin irritation you should: Apply Vaseline or Desitin ointment to the skin around the anus before drinking the bowel preparation medications. These products can be purchased at any drugstore. Wipe the skin after each bowel movement with disposable wet wipes instead of toilet paper. These are found in the toilet paper area of the store. Sit in a bathtub filled with warm water for 10-15 minutes after you finish passing a stool; after soaking blot the skin dry with a soft cloth, apply Vaseline or Desitin ointment to the anal area, andplace a cotton ball just outside your anus to absorb any leaking fluid. What happens during a Colonoscopy? During a colonoscopy, an experienced physician uses a colonoscope (a long, flexible instrument about inch in diameter) to view the lining of the colon, the colonscope is inserted into the rectum and advanced through the large intestine. If necessary during a colonoscopy, small amounts of tissue canbe removed for analysis (biopsy) and polyps can be identifies and entirely removed. In many cases, a colonoscopy allows accurate diagnosis and treatment of colorectal problems without the need for a major operation. You are asked to wear a hospital gown and an IV will be started You are given a pain reliever and sedative intravenously (in your vein). You will feel relaxed and somewhat drowsy You will lie on your left side, with your knees drawn up towards your chest A small amount of air is used to expand the colon so the physicians can see the colon browne. You may feel mild cramping during the procedure. Cramping can be reduced by taking slow, deep breaths. The colonoscope is slowly withdrawn while the lining of your bowel is carefully examined. The procedure last from approximately 30-60 min. What happens after a Colonoscopy? You will stay in a recovery room for observation until you are ready for discharge You may feel some cramping and/or a sensation of having gas, but this quickly passes If sedation has been given, a responsible family member or friend MUST drive you home. Avoid alcohol, driving and operating machinery for 24 hrs. following the procedure. Unless otherwise instructed, you may immediately return to your normal diet. We recommend you wait until the day after your procedure to resume normal activities. If Polyps were removed or a biopsy was taken, the physicians performing the colonoscopy will tell you when it is safe to resume taking your blood thinners. If a biopsy was taken or if a polyp was removed, you will notice a little amount of rectal bleedingfor 1-2 days after the procedure. If you have a large amount of rectal bleeding, high or persistentfever, or severe abdominal pain within the next 2 weeks, please go to your local emergency room andcall the physician who performed your exam. documented in this encounterAcmc Healthcare System03-17-2025 History of Present illness Narrative* Melani Curtis APRN.CNP - 05/05/2024 10:30 AM EDT HISTORY AND PHYSICAL Homero Mei : 1945 REFERRING PHYSICIAN: No referring provider defined for this encounter. CHIEF COMPLAINT: Patient presents with: Consult: colonoscopy HPI: Homero is a 78 year old male referred for endoscopy. Homero notes due for colon cancer screening- hx of polyps (2020). Homero denies abdominal pain. Homero denies diarrhea. Homero notes occasional constipation. -relieved with stool softeners Homero denies a change in bowel habits. Homero denies melena. -notes dark stools from iron Homero denies bright red blood per rectum. Homero denies hemorrhoids. Homero denies family history of colon issues. Homero denies heartburn. Homero denies dysphagia. Homero notes a history of ulcers/ peptic ulcer disease. -currently following with Dr. Diaz Homero underwent CABG x 3 02/[address] Iqbal- F cardiology S/P procedure he was noted to have A.Fib & bilateral edema. Edema has improved with lasix, unsure if patient is still taking eliquis?? Other medical history is significant for CHRISTIANO, alzheimer's, PAM and DDD. Homero has undergone prior endoscopy. Last colonoscopy was 04/[address] Stock at [facility]. Sedation:Midazolam 6 mg IV, Fentanyl 125 micrograms IV Impression: - One 40 mm polyp in the cecum, removed with mucosal resection. Resected and retrieved. Clip was placed. - Two 5 mm polyps in the transverse colon and in the ascending colon, removed with a cold snare. Resected and retrieved. - Mucosal resection was performed. Resection and retrieval were complete. CONVERTED FINAL DIAGNOSIS 1. Hepatic flexure, polypectomy x2 (A) - Single piece of colonic mucosa with focal hyperplastic changes. - No evidence of adenoma. 2. Cecum, polypectomy (B) - Fragments of tubular adenoma. TP/ka 04/28/2020 Homero underwent EGD for anemia with Dr. Diaz 03/31/24. Sedation: MAC Impressions : - Normal esophagus. - Non-bleeding gastric ulcer with no stigmata of bleeding. Biopsied. - Normal first portion of the duodenum. Current Outpatient Medications Medication Sig ELIQUIS 5 mg tab(s) Take 5 mg by mouth two times a day. lisinopril (ZESTRIL) 40 mg tablet Take 40 mg by mouth once daily. ferrous sulfate 325 mg (65 mg iron) tablet Take 325 mg by mouth every 24 hours. potassium chloride ER (KLOR-CON) 20 mEq tablet Take 1 tablet by mouth two times a day. furosemide (LASIX) 40 mg tablet Take 1 tablet by mouth two times a day. senna-docusate (SENNA WITH DOCUSATE SODIUM) 8.6-50 mg per tablet Take 1 tablet by mouth once daily. senna-docusate (SENNA WITH DOCUSATE SODIUM) 8.6-50 mg per tablet Take 1 tablet by mouth once daily as needed for constipation. acetaminophen (TYLENOL) 500 mg tablet Take 2 tablets by mouth every 8 hours as needed for pain. aspirin, enteric coated (ASPIRIN, ENTERIC COATED) 81 mg EC tablet Take 1 tablet by mouth once daily. metoprolol tartrate, short acting, (LOPRESSOR) 25 mg tablet Take 0.5 tablets by mouth two times a day. Hold for HR <60 and/or SBP <100 lactobacillus combination no.4 (PROBIOTIC) 3 billion cell cap Take 1 capsule by mouth once daily. docusate sodium (COLACE) 100 mg capsule Take 1 capsule by mouth two times a day as needed for constipation. melatonin 3 mg capsules Take 1 capsule by mouth at bedtime as needed for insomnia. tamsulosin (FLOMAX) 0.4 mg Take 1 capsule by mouth two times a day. ascorbic acid, vitamin C, (VITAMIN C) 500 mg tablet Take 1 tablet by mouth once daily. folic acid 1 mg tablet Take 1 tablet by mouth once daily. magnesium oxide (MAG-OX) 400 mg (241.3 mg magnesium) tablet Take 1 tablet by mouth once daily. polyethylene glycol 3350 17 gram packet Take 1 Packet by mouth once daily. Dissolve dose in 4 - 8 ounces of liquid and take as directed. fluticasone (FLONASE) 50 mcg/actuation nasal spray Use 2 Sprays in each nostril once daily as needed. cholecalciferol (VITAMIN D3) 1,000 unit tab tablet Take by mouth once daily. Taking 25 MCG daily donepezil (ARICEPT) 10 mg tablet Take 1 tablet by mouth daily with breakfast. atorvastatin (LIPITOR) 40 mg tablet Take 1 tablet by mouth once daily. vit C/E/Zn/coppr/lutein/zeaxan (PRESERVISION AREDS-2 ORAL) Take 1 capsule by mouth two times a day. latanoprost (XALATAN) 0.005 % ophthalmic solution Use 1 Drop in both eyes daily at bedtime. cyanocobalamin (VITAMIN B-12) 1,000 mcg tab Take 1 tablet by mouth once daily. pantoprazole DR (PROTONIX) 40 mg tablet Take 40 mg by mouth once daily. No current facility-administered medications for this visit. ALLERGIES: Patient has no known allergies. PAST MEDICAL HISTORY Diagnosis Date Alzheimer's dementia without behavioral disturbance, psychotic disturbance, mood disturbance, or anxiety, unspecified dementia severity, unspecified timing of dementia onset (HCC) Ascending aorta dilatation (HCC) borderline Benign prostatic hyperplasia with urinary frequency Bilateral carpal tunnel syndrome s/p release on right Bilateral inguinal hernia s/p mesh BPH (benign prostatic hyperplasia) CAD (coronary artery disease) 12/21/2023 abnormal stress test. 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 Iqbal on 02/28/24 Scalp psoriasis Unspecified essential hypertension Upper GI bleed 05/2023 Vitamin D insufficiency PAST SURGICAL HISTORY Procedure Laterality Date BACK SURGERY HX CABG (3) VEIN GRAFTS & ARTERIAL GRAFT(S) 02/28/2024 CABG x 3 (Scales-LAD, SVG- PDA, SVG- OM1) with Dr. Iqbal on 02/28/24 COLON SURGERY HX COLONOSCOPY FLX DX W/COLLJ SPEC WHEN PFRMD , 11/19, 01/24, 01/29 COLONOSCOPY FLX DX W/COLLJ SPEC WHEN PFRMD 03/22/2015 Colonoscopy-repeat 5 years COLONOSCOPY FLX DX W/COLLJ SPEC WHEN PFRMD 11/23/2020 COLONOSCOPY GEN ANES 04/12/2020 Repeat in 1 year COLONOSCOPY GEN ANES 04/26/2020 3 polyps removed. 40 mm, 5 mm, 5mm. repeat in 6 months. DISKECTOMY, LUMBAR, SINGLE SP 2006 HERNIA REPAIR HX mesh INGUINAL HERNIA REPAIR HX 07/19/2010 bilateral inguinal hernia repair with mesh NEUROPLASTY &/TRANSPOS MEDIAN NRV CARPAL TUNNE Right 03/26/2015 Carpal tunnel decomp right PAST SURGICAL HISTORY OF Left 04/10/2019 arthroscopic knee for torn meniscus RHINP PRIM LAT&ALAR CRTLGS&/ELVTN NASAL TI 2009 Rhinoplasty SKIN BIOPSY HX FAMILY HISTORY Problem Relation Age of Onset Heart Mother CHF Hypertension Mother Stroke Father Hypertension Father Social History Tobacco Use Smoking status: Never Smokeless tobacco: Never Vaping Use Vaping status: Never Used Substance Use Topics Alcohol use: Not Currently Drug use: Never REVIEW OF SYMPTOMS: The review of systems data was entered by the nurse and reviewed by me SEE NURSING NOTE PHYSICAL EXAMINATION: General: The patient is 78 year old, male well nourished, well hydrated in no acute distress. The patient is oriented to time, place, and person. VITALS: Blood pressure 108/69, pulse 65, weight 87.4 kg (192 lb 9.6 oz), SpO2 96%. Body mass index is 26.31 kg/m . HEENT: Normal cephalic, ataumatic, pupils are equally round, sclera are anicteric, mucous membranesare moist, oropharynx is clear. Neck has no masses, asymmetry or lymphadenopathy. Respiratory: Clear to auscultation and percussion. Normal respiratory excursion and pattern. Cardiac: Examination is regular rate and rhythm. Normal S1/S2 Abdominal exam: Soft, nontender, with no palpable masses. No hepatosplenomegaly. No palpable hernias. Extremities: no clubbing, cyanosis or edema. No adenopathy. LABORATORY VALUES: As Noted RADIOLOGIC STUDIES: As Noted Assessment IMPRESSION: screen for colon cancer, history of colon polyps PLAN: I have reviewed my findings with the surgeon. Will plan for lower endoscopy. We discussed therisks and benefits of the planned endoscopy. I have informed the patient that complications can occur including failure to complete the endoscopy and perforation. Homero had the opportunity to ask questions concerning the planned endoscopy. My staff has also explained the procedure to the patient in understandable terms and has given the patient printed material concerning the procedure. Homero freely consents to surgery. I plan to use MiraLAX bowel preparation I have explained to the patient the difference between IV conscious sedation and MAC anesthesia - and I have offered either, according to the patient's wishes. I have explained that with IV conscioussedation there is no anesthesia provider available and therefore there is a limitation of the amount of IV medications that can be given and that the patient may wake up in the middle of the procedure and/or experience pain/discomfort during the procedure. Further discussion was done and the patient was given the opportunity to ask questions and all questions were answered. MAC anesthesia d/t recent CABG. At this time Homero is on Eliquis s/p CABG. 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 If Eliquis is d/c'd I instructed patient/family to let me know and he would move his endoscopy up since at this time Dr. Vazquez is scheduling into July. Homero was counseled that if there are changes in his/her medical condition, to let the office knowif surgery should proceed. If there are changes in patient's medical condition from time of this encounter to the day of the procedure that preclude anesthesia, patient may have procedure cancelled for patient's safety. Diagnoses: (Z12.11) Screen for colon cancer (primary encounter diagnosis) (Z86.0100) History of colonic polyps Portions of this documentation were copied and pasted from previous office visit notes in order to provide a cohesive continuity of the history. The note has been reviewed and edited and updated as necessary. Melani Curtis APRN.POLISHING MACHINE TENDER * Genesis Cao LPN - 05/05/2024 10:25 AM EDT REVIEW OF SYSTEMS: General: The patient denies fatigue, denies weight loss, denies weight gain, denies feeling hot, and denies feelings of cold. Eyes: The patient NOTES glaucoma, denies eye injury/surgery, wears glasses or contacts. Ear/Nose/Throat: The patient denies allergies, denies hayfever, denies ear infections, and denies bloody noses. Cardiovascular: The patient denies chest pain, NOTES heart disease, NOTES high blood pressure,denies cardiac stent, denies prior heart attack, NOTES irregular heart beat, NOTES high cholesterol, denies poor circulation, NOTES heart failure, other cardiac issues, denies claudication, denies cold feet, denies peripheral arterial stent. Respiratory: The patient denies tuberculosis, denies pneumonia, denies frequent cough, denies pulmonary embolism, denies shortness of breath, and denies coughing up blood. Gastrointestinal: The patient denies difficulty swallowing, denies acid reflux, NOTES ulcers, denies vomiting, denies jaundice/hepatitis, denies gallbladder problems, denies black or tarry stools, denies hemorrhoids, denies bleeding from rectum, denies diverticulitis, denies constipation, denies diarrhea, denies loss of stool control, and denies hernias. Kidney/Bladder: The patient denies kidney stones, denies urine infections, and denies bloody urine. Skin: The patient denies a history of skin cancer, denies bleeding/changing moles, and denies a history of skin rash. Neurologic: The patient denies a history of epilepsy/convulsions, denies headaches, denies head/spinal injuries, and denies stroke/TIA. Psychiatric: The patient denies psychiatric medications, NOTES depression, and denies voices, denies substance abuse. Endocrine: The patient denies thyroid disorders, denies diabetes, and denies hormonal problems. Hematologic: The patient denies a history of bruising, denies bleeding, and NOTES anemia, denies blood clots. Infections: The patient denies a history of measles and mumps, denies rheumatic fever, and denies sexually transmitted diseases. Musculoskeletal: The patient denies back pain/injury, denies back problems, denies sciatica, deniesknee/foot trouble, denies arthritis, or denies gout. When was patient's last Mammogram screening? N/A Last Colonoscopy: 04/26/2020 Genesis Cao LPN documented in this encounterA[facility] Instructions* Patient Instructions* Andrew Clifford APRN.POLISHING MACHINE TENDER - 05/05/2024 9:55 AM EDT Images from the original note were not included. Plan for follow-up: Repeat imaging at 12 months from recent scan. Contact your clinician if you: Have a change or increase in cough, shortness of breath, wheezing or cough up blood. Have a CT scan before your next follow up with our team. Experience unintended weight loss of 10 pounds or more. Frequently Asked Questions: How common are lung nodules? Nodules are found in up to half of adults who get a chest x-ray or CT scan. Do nodules cause any symptoms? In general, small nodules don t cause any noticeable problems. They re too small to cause pain or breathing problems. Should I worry that I have a nodule? Most nodules are not cancer, but for a small number of people the nodule may channel turner to be an early cancer. Your doctor can tell if your nodule is lung cancer by: Seeing how it looks on the CT scan. Seeing whether it grows over time. A nodule that grows larger over time is a sign that it could be a cancer. Taking a sample of the nodule with a needle or surgery. Most people with a nodule will NOT need to have this test. What is the chance that the nodule is an early lung cancer? Fewer than 5% of all nodules channel turner to be cancer What if my nodule is lung cancer? Even if a nodule turns out to be lung cancer, it is likely to be an early stage lung cancer. Peoplewith early stage lung cancer that is treated are less likely to than people who are diagnosed at a later stage when the cancer has started to cause symptoms. What will happen next? Your healthcare team will probably recommend getting more CT scans to keep a close eye on the nodule to see if it changes. We call this active surveillance. ? If a nodule is not cancer, it usually won t grow. If the nodule doesn t grow over a 2-year period, it is very unlikely to be cancer. Most of the time, it is safe to stop watching nodules if there is no growth over a 2-year period. ? On the other hand, if the nodule is getting bigger, it should be looked at more closely to see ifit is lung cancer. Nodules can be viewed more closely using different radiology studies or by biopsy (using a needle or surgery to take a sample of the nodule to look at under a microscope). Your healthcare team will determine which is best for you. Why shouldn t I get a biopsy now? ? A biopsy means removing a piece of your lung in order to look at it under a microscope. Biopsies are usually not recommended when nodules are small because it is very difficult to biopsy them safely. ? Doing a biopsy when a nodule is small can cause harm such as collapse of the lung, bleeding, or infection. Is it really safe to wait for the next CT scan? Most cancers grow fairly slowly, and it takes several months for them to get bigger. So even if thenodule is lung cancer, it will likely still be small in a few months. Even if the nodule is lung cancer that is growing, there is a very good chance that surgery or radiation will cure you. Waiting a few months for the next CT scan is very safe and should not affect the treatment you receive or your chances for cure if the nodule turns out to be cancer. How does my clinician decide when to do the next CT scan? There are several guidelines for how to decide when to get the next CT scan. These guidelines are based on the chance the nodule is lung cancer and how big the nodule might be at the time of the next scan. Your healthcare provider will determine the best time for your next CT scan based on these guidelines. Your healthcare provider may choose to discuss the CT results with other specialists to determine the best plan for you. What if I m a smoker? Quitting now will decrease your chance of getting lung cancer in the future, as well as many other serious health problems like emphysema and heart disease. Some people think that if they already have lung cancer, they might as well keep smoking. THAT IS WRONG. documented in this encounterAcmc Healthcare System03-17-2025 Note[facility]03-[facility] History of Present illness Narrative* Andrew Clifford APRN.TADEO - 05/05/2024 9:31 AM EDT Images from the original note were not included. [facility] INCIDENTAL LUNG NODULE PROGRAM Impression / Recommendations 1. Lung nodule (Primary) Nature and etiology of lung nodules discussed with patient and son. This is a low risk nodule/patient. Recommendation for 12 month follow up [address] Chest. They agree with the plan of care. All questions were answered. - CONSULT TO LUNG NODULE CLINIC -CT CHEST ELVIN ARVIZUON Requesting Provider: Maren Ruiz Reason for the Consult Homero Mei presents today for consultation / opinion regarding lung nodule(s). My impression and final recommendations will be communicated back to the requesting physician by way of sharedmedical record or letter via US mail. History of Present Illness Homero Mei is a 78 year old male with a pertinent past medical history significant for Nohistory of tobacco abuse who is being seen as a new consultation for evaluation of a lung nodule(s). Accompanied by his son. Homero Mei had a CTA Chest on 01/29/2024 for the indication of cardiac evaluation. 1 nodule were detected Incidentally. The nodule of greatest concern is a Solid 9 x 5 mm nodule with a Smooth border in the Left lower lobe of the lung. Prior imaging: (No) Pt had open heart surgery 02/28/2024 for CABG x 3. Respiratory symptoms include: SOB: No Chest tightness: No Coughing: No Hemoptysis: No Wheezing: No Fever/Chills: No Recent Respiratory Infection: No Unintentional weight loss: No Last 6 Encounter Wt Readings: Date: Wt: 05/05/2024 87.5 kg (193 lb) 04/24/2024 89.9 kg (198 lb 3.2 oz) 04/15/2024 90.7 kg (200 lb) 04/14/2024 89.4 kg (197 lb) 04/07/2024 90.9 kg (200 lb 6.4 oz) 03/24/2024 100.6 kg (221 lb 12.8 oz) Modified Medical Research [place] Dyspnea Scale (MMRC) I only get breathless with strenous exercise 0 Other Pertinent Clinical Risk Factors: Significant exposures (1 year or more of exposure): Work environment with second hand smoke, [place], but does not have animals . Recent travel history: none Animal exposure: NA Second hand smoke exposure: As an adult at work Does the patient have a prior history malignancy? No Does the patient have a family history of lung cancer? No Malignancy Risk ([facility] model) Lung Nodule Calculator: (if applicable) 4.9% (Low) risk of malignancy. Problem List, History, Medications and allergies have been reviewed from the [facility] electronic medical record and any appropriate up-dates have been made. Physical Exam BP 132/84 Pulse 66 Resp 14 Wt 87.5 kg (193 lb) SpO2 98% BMI 26.37 kg/m General Appearance: Well appearing, alert, in no acute distress, well-hydrated, well nourished.. Neck: Supple, no adenopathy; thyroid symmetric, normal size Lungs: Lungs clear to auscultation. No wheezing, rhonchi, rales.. Heart: RRR without murmur, gallop, or rubs. No ectopy. Neurologic: Oriented X 3. Diagnostic Data I have personally visualized, reviewed and analyzed the findings on pulmonary function testing and radiographs. Last CT/CTA Chest/Lungs CT CHEST WO IVCON Exam End: 01/29/2024 10:22 AM (Final result) Narrative: * * *Final Report* * * DATE OF EXAM: Jan 29 2024 10:22AM [facility] 0541 - CT CHEST WO IVCON / PROCEDURE REASON: multiple diagnoses * * * * Physician Interpretation * * * * EXAMINATION: CHEST CT WITHOUT CONTRAST CLINICAL HISTORY: Coronary artery disease. Obstructive sleep apnea. Technique: Spiral CT acquisition of the chest from the thoracic inlet to the upper abdomen without contrast. MQ: [id number] CT Radiation dose: Integrated Dose-length product (DLP) for this visit = 217 mGy*cm CT Dose Reduction Employed: Automated exposure control(AEC) and iterative recon Comparison: No prior CT chest is available for comparison. RESULT: Limitations: None. Lines, tubes, and devices: None. Lung parenchyma and airways: No consolidation. 9 x 5 mm subpleural nodule posterior left lower lobe (6:122). The central airways are patent. Pleural space: No pleural effusion. No pleural thickening. Lower neck, lymph nodes, and mediastinum: The imaged thyroid gland is normal. No lymphadenopathy in the supraclavicular, axillary, mediastinal, or hilar regions. Heart, pericardium, and thoracic vessels: The thoracic aorta and main pulmonary artery are normal in caliber. The cardiac chambers are normal in size. Coronary artery atherosclerotic calcifications are noted, although the study is not optimized for coronary assessment. No pericardial effusion or thickening. Bones and soft tissues: No destructive bone lesion. Degenerative disease of the thoracic spine. Chest wall is unremarkable. Upper abdomen: No acute abnormality in the imaged upper abdomen. Small hepatic cysts. Localizer images: No additional findings. Impression: IMPRESSION: 1. Nodular density along the pleural surface in the posterior left lower lobe measures 9 x 5 mm 2. No pleural effusion or consolidation 3. No thoracic lymphadenopathy Incidental Finding: Follow-up Acuity: Incidental Finding: Solid: >8 but <15 mm Routing Code: RI_1 Recommendation: Consult to Lung Nodule Clinic - [id number] Time Frame: at the discretion of the clinical team. Comments: Follow-up for this incidentally detected lung nodule with PET/CT or Biopsy within 4 weeks, or Chest CT exam in 3 months is recommended. --END OF FINDING-- Motor Winder: ELIUD Transcribe Date/Time: Jan 31 2024 1:41P Dictated by : JAMILAH GUILLEN MD This examination was interpreted and the report reviewed and electronically signed by: JAMILAH GUILLEN MD on Jan 31 2024 2:03PM EST Latest Ref Rng & Units 01/29/2024 Lung Volumes FRC Box (L) L 4.06 RV Box (L) L 3.60 ERV BOX (L) L 0.46 VC (L) BOX L 4.04 IC BOX (L) L 3.48 TLC Box (L) L 7.55 RV/TLC Box (%) % 48 Latest Ref Rng & Units 01/29/2024 Spirometry Data FVC PRE (L) L 3.96 FEV1 PRE (L) L 2.74 FEV1/FVC PRE (%) % 69 [id number]% PRE (L/S) L/S 1.69 PEF PRE (L/S) L/S 7.04 VC (L) BOX L 4.04 IC BOX (L) L 3.48 ERV BOX (L) L 0.46 DLCO (ml/min/mmHg) ml/min/mmHg 29.30 FRC Box (L) L 4.06 RV Box (L) L 3.60 TLC Box (L) L 7.55 RV/TLC Box (%) % 48 VA (L) L 6.61 DLCO/VA (ml/min/mmHg/L) ml/min/mmHg/L 4.43 DLCOcor (ml/min/mmHg) ml/min/mmHg 30.38 Latest Ref Rng & Units 01/29/2024 Lung Diffusion DLCO (ml/min/mmHg) ml/min/mmHg 29.30 DLCO/VA (ml/min/mmHg/L) ml/min/mmHg/L 4.43 VA (L) L 6.61 Impression / Recommendations To optimize physician communication via the electronic health record, the Impression & Recommendations section has been placed at the beginning of this note. Andrew Clifford APRN.CNP Pulmonary & Critical Care Medicine May 05, 2024 9:34 AM Follow Up Diagnosis: Lung Nodule Recommendation: CT Scan Follow up Date: 01/29/2025 Follow-Up Scheduled: Yes Pulmonary Follow-Up Type: Lung Nodule Surveillance Lung Nodule Program [facility]: [facility] documented in this encounterAcmc [facility]03-07-2025 Telephone encounter Note * Telephone Encounter - Maren Ruiz APRN.CNP - 04/25/2024 11:28 AM EST Returned Dana's (from [facility]) phone call regarding iron tabs and dosing. Per Dana, Patient had seen GI, Dr. Diaz, and had scope on 03/31/24. At that time Dr. Diaz had restarted the iron tabto TID dosing. Instructed that to follow the GI's recommendations. As we have signed off on his case at this point. She verbalized understanding. Informed her to reach out to us with any issues or concerns regarding patient incisions. Further care should be directed to specialist and PCP. Maren Ruiz APRN.CNP [facility]03-07-[facility] Miscellaneous Notes* Telephone Encounter - Maren Ruiz APRN.CNP - 04/25/2024 11:28 AM EST Returned Dana's (from [facility]) phone call regarding iron tabs and dosing. Per Dana, Patient had seen GI, Dr. Diaz, and had scope on 03/31/24. At that time Dr. Diza had restarted the iron tabto TID dosing. Instructed that to follow the GI's recommendations. As we have signed off on his case at this point. She verbalized understanding. Informed her to reach out to us with any issues or concerns regarding patient incisions. Further care should be directed to specialist and PCP. Maren Ruiz APRN.TADEO * Telephone Encounter - Maren Ruiz APRN.CNP - 04/24/2024 4:20 PM EST Returned Dana's call, no answer, left message stating would like return call back to discuss Mr. Mei. Maren Ruiz APRN.CNP * Telephone Encounter - Saranya Heredia LPN - 04/24/2024 3:53 PM EST Dana from [facility] called stating they received an order to decrease Homero's iron tab to once a day as the had done in March as requested but since then Homero was scoped by GI Dr. Diaz & he increased his iron to 3 times per day. She wanted to know if there is a cardiac reason for theiron to be decreased or should they follow Dr. Diaz's order. Dana would like a call back @ [phone] ext [phone].Saranya Heredia LPN documented in this encounterAcmc Healthcare System03-06-2025 Telephone encounter Note * Telephone Encounter - Maren Ruiz APRN.CNP - 04/24/2024 4:20 PM EST Returned Dana's call, no answer, left message stating would like return call back to discuss Mr. Mei. Maren Ruiz APRN.TADEO [facility]03-[facility] Telephone encounter Note* Telephone Encounter - Saranya Heredia LPN - 04/24/2024 3:53 PM EST Dana from [facility] called stating they received an order to decrease Homero's iron tab to once a day as the had done in March as requested but since then Homero was scoped by Dr. Diaz & he increased his iron to 3 times per day. She wanted to know if there is a cardiac reason for theiron to be decreased or should they follow Dr. Diaz's order. Dana would like a call back @ [phone] ext [phone].Saranya Heredia LPN [facility]03-06-[facility]25 Instructions* Patient Instructions* Caroline Orlando APRN.TADEO - 04/24/2024 11:39 AM EST You have done a great job recovering from you surgery, moving forward, here are the recommendations: Medications: please continue taking Aspirin 81 mg daily, eliquis, beta darcy (metoprolol tartrate) and atorvastatin (lipitor) for coronary artery disease. Please avoid taking NSAIDs (Aleve, Ibuprofen, Motrin, Advil, Mobic etc) Vest: ok to stop using Cardiac Rehab: Please call to schedule to start [phone] ([facility], floor 1) You will have a EKG stress test before and after the cardiac rehab, which [facility]. Restrictions: slowly increase weight bearing in a gradual fashion (5-10 lbs increment each month) over the next 2-3 months to allow further healing, then gradually resume your normal activities depending on how you feel. Left leg wound care: wash daily with mild soap and water, pat dry, continue follow up and management with wound care. Leg swelling: increase lasix to 40 mg twice daily and repeat BMP lab in 2 weeks. Continue watching daily weight and call heart failure clinic if you gain more than 3# in one day or more than 5# in one week. Resume potassium 20 mEq twice daily. Follow-ups: It is crucial to establish future appointments with your main providers, they are you registration representative (08/18/24), primary care doctor (05/05/24), GI for colonoscopy (05/05/24), Heart failure phone call 05/08/23, heart failure appointment 05/21/24, urology (10/13/24), and pulmonology (05/05/24) formedications refills/questions and future health management. You can follow up with cardiac surgery team on as needed basis. Please don't hesitate to contact us if you have any concerns/questions: [phone] Thanks for coming in to see me today. Caroline Orlando APRN.POLISHING MACHINE TENDER documented in this encounterAcmc Healthcare System03-06-2025 History of Present illness Narrative* Caroline Orlando APRN.TADEO - 04/24/2024 11:00 AM EST HPI: This is a 78 year old man with hx of mild-moderate dementia, HTN, HLD who was previously referred to Dr. Iqbal for evaluation of an abnormal stress test and multivessel coronary artery diseaseand for consideration of bypass surgery. He is being prepared for hip replacement surgery and a stress test was requested. This was abnormal. The SPECT perfusion study was performed on December 21, 2023 and showed moderate 10 to 20% area of ischemia in the territory of the RCA normal left ventricle function EF 62%. On this basis left heart catheterization was performed showing severe multivessel coronary disease. Patient denies chest heaviness, pressure, burning, exertional dyspnea, edema etc. However, he recently moved into an assisted living community so has not been as physically active as previously. Patient underwent CABG x 3 (Scales-LAD, SVG- PDA, SVG- OM1) with Dr. Iqbal on 02/28/24. Surgery went as planned. Patient was transferred to CVICU in stable condition and was extubated under early parameters. Post op course complicated by agitation/delirium, and atrial fibrillation requiring eliquis initiation. Dcd to [facility] on POD#11 (03/10/24) on room air and in controlled rate afib. DC summary states plan to dc with diuresis but appears none was ordered. 03/14/24 three day post dc phone call, patient's son reported patient sounded SOB on the phone and SNF nurse reported weight 214# when day prior weight was 209# (as well as reports of constipation), at which time lasix 20 mg daily x 5 days was ordered with 10 mEq K daily x 5 days and Senna S daily prn x 14 days ordered. 03/20/24 called SNF to check on patient. RN reported leg swelling is better, no SOB, pulse ox 95-97%on room air, weight stable for days ~ 214# and patient had BM 3 days prior. At this time asked RN to fax us lab results from 03/13/24 and to obtain new CBC & BMP and CXR to reflect completion of lasix and fax to our office. No lab results were received however CXR scanned into our system from [facility] at 10:36 PM that day and not brought to any provider's attention showed bilateral pleural effusions. Dcd from [facility] to his [facility]. 03/23/23 RN from patient's assisted living called reporting weight gain and pitting edema. 03/24/24 Seen in [facility] office for post op visit. Had worsening volume overload, non pitting BLE edema,and 17# above pre op weight. Was provided lasix 40 mg bid x 5 days then 40 mg daily x 5 days then 20 mg daily thereafter with potassium 20 mEq daily x 10 days then 10 mEq daily thereafter. CBC and BMP requested. SVG sites dehisced., no appearing infected- was advised on wound care and betadine wipes. 03/28/24- notified by [facility] left SVG site puffy, trace serous drainge. Requested [facility] to see pt. Imagesreceived. 03/31/24- notified by [facility] nurse of concern of infection at SVG site. Wound culture ordered. Antibiotics ordered (Doxycycline). (Measuring 2.1 cm length x 1.1 cm width x 0.2 depth ). Advised to continuewashing L SVG wound daily with soap/water, patting dry, painting with betadine bid, and asked that they start wet-to-dry dressing changes bid to which she stated they ARE able to do 03/31/24 upper endoscopy (preivoulsy planned prior to CABG. Had some irregular beats under anesthesia. 04/01/24- CXR report received. Small right pleural effusion and basilar atelectasis. 04/04/24- notified by [facility] of worsening BLE edema feet to thighs. Per nurse, pt has been receiving lasix order as prescribed. States has had a 10# wt gain from 03/30-04/04. Denies increased sob, dyspnea. Pt has been wearing doug hose and no change in activity or diet. Wound culture and CBC results scannedinto chart. Wound + E.coli, stopped doxy and started on augmentin with probiotic. H/H stable, no increase in WBC. Continue to paint wound with betadine and wet to dry dressing changes BID. Increased lasix to 40mg BID x 5 days the decrease to 40mg daily, requested new BMP and BNP, last Cr. was normal. 04/04/24 BMP Creat/K+ 1.05/4.2, BNP 2345. CBC ( WBC 5.3, H/H 9.6/30.0, pltl [id number]). Results scannedinto chart. 04/07/24 seen in [facility] office for follow up of SVG wound and worsening BLE edema. He continued on lasix 40 mg bid for last 3 days and on day 4/10 of Augmentin. 2+ BLE edema and L SVG wound assessed by Dr. Iqbal with granular base, debrided exposed suture and some eschar around inside perimeter of wound, measuring 2.5 cm x 0.5 cm x 1 cm deep, not appearing infected. Instructed to wash daily with mild soap and water, daily W2D NS/mesalt/bandaid or gauze, continue with aggressive diuresis and follow up with [facility] in 2 weeks for wound check/volume status. 04/15/24 seen at HF clinic for HFpEF with 3+ BLE edema and rales. Gave 40 mg IV lasix once and continued lasix 40 mg po bid with K replacement. Also this day eval'd by wound care nurse at his facility, started packing L SVG with denzel. 04/18/24 HF phone call with desirable weight loss of 7# from 04/15 to 04/17 following IV lasix, LE much improved, at which time lasix decreased from 40 mg po bid to every day. INTERVAL EVENTS: Patient presents to the office today for wound check and fluid volume status. On encounter, pt accompanied by his son, Indy, and reports the following: Fever/chills: denies Dizziness/lightheadedness/syncope: dizzy if standing too quickly Chest pain/palpitations: denies MSI incisional pain/drainage/concerns: none L SVG site: no pain, wound nurse coming every few days to facility and stating looking good/healing SOB/cough: no SOB, very little nonproductive cough, little rhinitis Activity/Ambulation/Stairs: tolerating without angina or SOB Appetite: too good N/V/D/C/abdominal pain: constipation Leg swelling: significantly improved, not yet back to baseline Sleep: like a rock Energy: pretty good Weights: prior to surgery 197#, yesterday weight 196.5# quite near baseline but still with leg swelling; BP & HR log reviewed: SBP 90s - 140, HR 70 today, no log to review Subjective: Current Outpatient Medications Medication Sig furosemide (LASIX) 40 mg tablet Take 1 tablet by mouth once daily. senna-docusate (SENNA WITH DOCUSATE SODIUM) 8.6-50 mg per tablet Take 1 tablet by mouth once daily. senna-docusate (SENNA WITH DOCUSATE SODIUM) 8.6-50 mg per tablet Take 1 tablet by mouth once daily as needed for constipation. lidocaine (LIDODERM) 5 % Apply 1 Patch as directed once daily. to affected area. Remove patch after12 hours. (Patient not taking: Reported on 04/18/2024) furosemide (LASIX) 40 mg tablet Take 1 tablet by mouth two times a day for 14 days. acetaminophen (TYLENOL) 500 mg tablet Take 2 tablets by mouth every 8 hours as needed for pain. aspirin, enteric coated (ASPIRIN, ENTERIC COATED) 81 mg EC tablet Take 1 tablet by mouth once daily. metoprolol tartrate, short acting, (LOPRESSOR) 25 mg tablet Take 0.5 tablets by mouth two times a day. Hold for HR <60 and/or SBP <100 lactobacillus combination no.4 (PROBIOTIC) 3 billion cell cap Take 1 capsule by mouth once daily. docusate sodium (COLACE) 100 mg capsule Take 1 capsule by mouth two times a day as needed for constipation. melatonin 3 mg capsules Take 1 capsule by mouth at bedtime as needed for insomnia. ferrous sulfate 325 mg (65 mg iron) tablet Take 1 tablet by mouth once daily. tamsulosin (FLOMAX) 0.4 mg Take 1 capsule by mouth two times a day. apixaban (ELIQUIS) 5 mg tab(s) Take 1 tablet by mouth two times a day. ascorbic acid, vitamin C, (VITAMIN C) 500 mg tablet Take 1 tablet by mouth once daily. folic acid 1 mg tablet Take 1 tablet by mouth once daily. magnesium oxide (MAG-OX) 400 mg (241.3 mg magnesium) tablet Take 1 tablet by mouth once daily. polyethylene glycol 3350 17 gram packet Take 1 Packet by mouth once daily. Dissolve dose in 4 - 8 ounces of liquid and take as directed. fluticasone (FLONASE) 50 mcg/actuation nasal spray Use 2 Sprays in each nostril once daily as needed. cholecalciferol (VITAMIN D3) 1,000 unit tab tablet Take by mouth once daily. Taking 25 MCG daily donepezil (ARICEPT) 10 mg tablet Take 1 tablet by mouth daily with breakfast. atorvastatin (LIPITOR) 40 mg tablet Take 1 tablet by mouth once daily. vit C/E/Zn/coppr/lutein/zeaxan (PRESERVISION AREDS-2 ORAL) Take 1 capsule by mouth two times a day. latanoprost (XALATAN) 0.005 % ophthalmic solution Use 1 Drop in both eyes daily at bedtime. cyanocobalamin (VITAMIN B-12) 1,000 mcg tab Take 1 tablet by mouth once daily. pantoprazole DR (PROTONIX) 40 mg tablet Take 40 mg by mouth once daily. No current facility-administered medications for this visit. Patient has no known allergies. PAST MEDICAL HISTORY Diagnosis Date Alzheimer's dementia without behavioral disturbance, psychotic disturbance, mood disturbance, or anxiety, unspecified dementia severity, unspecified timing of dementia onset (HCC) Ascending aorta dilatation (HCC) borderline Benign prostatic hyperplasia with urinary frequency Bilateral carpal tunnel syndrome s/p release on right Bilateral inguinal hernia s/p mesh BPH (benign prostatic hyperplasia) CAD (coronary artery disease) 12/21/2023 abnormal stress test. moderate ischemia in RCA Current use of correction anticoagulation DDD (degenerative disc disease), lumbar resolved after discectomy Depression Deviated septum s/p septoplasty Glaucoma Hyperlipidemia Insomnia Iron deficiency anemia Irritable bowel syndrome 08/1997 improved Lipoma of neck left posterior neck CHRISTIANO (obstructive sleep apnea) [address] 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 Iqbal on 02/28/24 Scalp psoriasis Unspecified essential hypertension Upper GI bleed 05/2023 Vitamin D insufficiency PAST SURGICAL HISTORY Procedure Laterality Date BACK SURGERY HX CABG (3) VEIN GRAFTS & ARTERIAL GRAFT(S) 02/28/2024 CABG x 3 (Scales-LAD, SVG- PDA, SVG- OM1) with Dr. Iqbal on 02/28/24 COLON SURGERY HX COLONOSCOPY FLX DX W/COLLJ SPEC WHEN PFRMD , 11/19, 01/24, 01/29 COLONOSCOPY FLX DX W/COLLJ SPEC WHEN PFRMD 03/22/2015 Colonoscopy-repeat 5 years COLONOSCOPY FLX DX W/COLLJ SPEC WHEN PFRMD 11/23/2020 COLONOSCOPY GEN ANES 04/12/2020 Repeat in 1 year COLONOSCOPY GEN ANES 04/26/2020 3 polyps removed. 40 mm, 5 mm, 5mm. repeat in 6 months. DISKECTOMY, LUMBAR, SINGLE SP 2006 HERNIA REPAIR HX mesh INGUINAL HERNIA REPAIR HX 07/19/2010 bilateral inguinal hernia repair with mesh NEUROPLASTY &/TRANSPOS MEDIAN NRV CARPAL TUNNE Right 03/26/2015 Carpal tunnel decomp right PAST SURGICAL HISTORY OF Left 04/10/2019 arthroscopic knee for torn meniscus RHINP PRIM LAT&ALAR CRTLGS&/ELVTN NASAL TI 2009 Rhinoplasty SKIN BIOPSY HX FAMILY HISTORY Problem Relation Age of Onset Heart Mother CHF Hypertension Mother Stroke Father Hypertension Father Social History Tobacco Use Smoking status: Never Smokeless tobacco: Never Vaping Use Vaping status: Never Used Substance Use Topics Alcohol use: Not Currently Drug use: Never ROS - see HPI Objective: One month post- op Chest X-ray is done and reviewed today. 04/01/24- CXR report received. Small right pleural effusion and basilar atelectasis. Echo 04/22/24: CONCLUSIONS: - Exam indication: s/p CABG - The left ventricle is normal in size. Left ventricular systolic function is normal. EF = 61 5% (2D biplane) Indeterminate left ventricular diastolic function. - The right ventricle is normal in size. Right ventricular systolic function is normal. - The left atrial cavity is severely dilated. - The right atrial cavity is mildly dilated. - There are no significant valvular abnormalities. - The visualized aorta is borderline dilated with a maximal dimension of 4.0 cm. - The patient has not had a prior CC echocardiographic exam for comparison. 12/13/23 echo: CONCLUSIONS: - Exam indication: Abnormal ECG - The left ventricle is normal in size. Left ventricular systolic function is normal. EF = 64 5% (2D biplane) Normal left ventricular diastolic function. - The right ventricle is dilated. Right ventricular systolic function is normal. - The right atrial cavity is dilated. - There are no significant valvular abnormalities. - The visualized aorta is borderline dilated with a maximal dimension of 3.9 cm. - There is mild (1+) tricuspid regurgitation. - Estimated right ventricular systolic pressure is 42 mmHg consistent with mild pulmonary hypertension. Estimated right atrial pressure is 15 mmHg based on IVC assessment. - The patient has not had a prior CC echocardiographic exam for comparison. Physical Examination: Vitals:There were no vitals taken for this visit. Last 2 Encounter Wt Readings: Date: Wt: 03/24/2024 221 lb 12.8 oz (100.6 kg) 02/11/2024 207 lb (93.9 kg) Physical Exam Vitals reviewed. Constitutional: General: He is not in acute distress. Appearance: Normal appearance. He is not ill-appearing or toxic-appearing. HENT: Mouth/Throat: Mouth: Mucous membranes are moist. Eyes: Conjunctiva/sclera: Conjunctivae normal. Cardiovascular: Rate and Rhythm: Normal rate and regular rhythm. Pulses: Normal pulses. Heart sounds: Normal heart sounds. No murmur heard. No friction rub. No gallop. Pulmonary: Effort: Pulmonary effort is normal. No respiratory distress. Breath sounds: Normal breath sounds. No stridor. No wheezing, rhonchi or rales. Abdominal: General: Bowel sounds are normal. There is no distension. Palpations: Abdomen is soft. There is no mass. Tenderness: There is no abdominal tenderness. Musculoskeletal: Right lower leg: Edema (1-2+ doug hose not on) present. Left lower leg: Edema (1+ doug hose on) present. Skin: General: Skin is warm and dry. Comments: MSI and CT sites healed, + sternal stability L SVG bandaid removed revealing wound measuring 2 cm x 0.5 cm x 0.4cm (previously 2.5 cm x 0.5 cm x1 cm on 04/07/24), see uploaded photo. Wound cleansed with NS, wound bed with small amt slough, minimally debrided with moistened gauze revealing granular tissue and covered with bandaid. No s/sx of infection. Neurological: General: No focal deficit present. Mental Status: He is alert and oriented to person, place, and time. Psychiatric: Mood and Affect: Mood normal. Behavior: Behavior normal. Assessment and Plan: MV CAD - S/p CABG x 3 (scales-lad, svg-OM1, svg-PDA;evh) with Dr. Iqbal on 02/28/24 - EF 64% preoperatively - Discharged POD #11 (03/10/24) to [facility] then to [facility] on 03/22/24 - Currently POD#56 - Pain controlled with PRN acetaminophen - Continue medical management with ASA 81 mg daily, metoprolol 12.5 mg bid, and atorvastatin - Continue Diet - Continue Bowel regimen, see below - Encouraged ambulation and mobilization, IS use - Maintain sternal precautions of no pushing/pulling/lifting more than 15-20# until 04/27 then add 5-10# every month thereafter as tolerated - Phase II cardiac rehab previously ordered. Encouraged family to call to schedule orientation at [facility], phone number provided again. - Follow up with [facility] PRN - Follow up with cardiology 08/18/24, again encouraged family to move sooner than July for further cardiac care Delayed surgical wound healing - 04/04/24, L SVG harvest site wound + E.coli, stopped doxy and started on augmentin with probiotic. - Completed 10 day course of doxycycline 04/13/24 - Afebrile, no leukocytosis on labs 04/15/24 - L SVG site today with no s/sx of infection, measuring smaller than last visit on 04/07 with half the depth - Continue management with wound care at [place] facility, no longer packing as too shallow - Patient hasn't showered in days/not been washing wound as he was told from facility/wound care tokeep wound dry -- let him know he needs to shower daily for hygiene and wash wound with mild soap/water and pat dry - Increase diuretic therapy as below to reduce BLE edema/aid in wound healing/encouraged doug hose/BLE elevation Atrial Fibrillation - Rate controlled, originally converted spontaneously but back to atrial fibrillation AM of POD#5 - Metoprolol 12.5 mg bid with hold parameters (previously decreased from tid for dizziness with ongoing diuresis) - Occasionally dizzy with quick position changes - encouraged changing positions slowly - Eliquis started evening of 03/04, CHADs > 2, tolerating without s/sx of bleeding - Heart rate and rhythm regular on exam - H/H stable on most recent labs 04/15/24 Anticipated Post-Op Respiratory Insufficiency - resolved Pleural effusion - CXR on 03/20/24 showing bilateral pleural effusions - CXR on 04/01/24 showing small right pleural effusion and basilar atelectasis - Received lasix 40 mg IV x 1 on 04/15/24 and continued lasix 40 mg po bid until 04/18/24 when lasix po decreased to once daily - 04/24/24 lungs CTA on exam, currently saturating well on room air 99%; will increase lasix again though given weight gain and leg swelling, see below - Encouraged mobilization, IS, cough, and deep breathing Volume Overload HFpEF - Admission weight: 92.6 kg, weight on 03/08 prior to discharge was 97.1 kg, weight on 04/07 was 90.9kg, weight today 89.9 kg - Echo 04/22/24 showing EF 61%, stable compared to that done 11/2023 - Follows with HF clinic - Received 40 mg iv lasix x 1 on 04/15/24 at which time lasix po 40 mg bid continued however was decreased to once daily on 04/18/24 following desirable 7# weight loss from 04/15 to 04/17 - Seen today below pre op weight though still with 1-2+ pitting BLE edema, not at baseline - Reviewed facility weights showing 6# gain from 04/17 to today - Will resume previous lasix dose of 40 mg po bid and resume potassium 20 mEq K bid which seems to have fallen off facility list/ - BMP from 04/15/24 unremarkable, Na 141, K 4.3, BUN 17, creat 0.97 - BMP in 2 weeks with results to HF clinic - Reviewed Heart healthy, 2g low sodium diet, 2L fluid restriction - Reviewed daily weight monitoring with parameters when to call HF clinic - TEDs, BLE elevation - HF nurse call 05/07/24 followed by HIDE HOUSE SUPERVISOR office visit 05/21/24 Acute Blood Loss Anemia - stable - H/H 9.6/30.6 on 04/15/24 (9.3/29.4) - Received one unit on POD 2 - Further monitoring per PCP - Ferrous sulfate (previously decreased to every day from tid however appears facility still givingtid - resent new order for their clarification), folic acid, and Vit C supplementation - Denies bleeding concerns HTN - Reviewed facility log, SBP 90s-140 mmHg, no HR log to review but in 70s on exam - Continue metoprolol tartrate 12.5 mg BID - Home regimen includes 40mg of lisinopril, 25mg toprolol XL daily HLD - Continue home atorvastatin Mild-Moderate Dementia - Appears orienting at baseline during visit; likely multifactorial - anesthesia, multiple transitions of care settings - Continue home Aricept - Management per PCP Constipation - Patient reports having regular BMs - Previously decreased iron to every day from tid however doesn't appear facility has been doing this - resent order to facility for their clarification - Continue senna S daily PRN and senna S scheduled qhs -Follow up with [facility] as needed -Continue management of L SVG wound by wound care at facility -CHF nurse phone visit 05/07/24 with HIDE HOUSE SUPERVISOR office visit 05/21/24 -Follow-up with Radar Engineering Teacher: Dr. Gill scheduled 08/18/24 - again encouraged family to move up sooner for further cardiac care -Cardiac rehab order previously placed, again encouraged family call to schedule, again phone number provided to Daniel -Follow up with PCP 05/05/24 -Follow up with urology last seen 04/14/24 next visit 10/13/24 -Follow up with pulmonology 05/05/24 -Follow up with GI for colonoscopy 05/05/24 Electronically signed by Caroline Orlando APRN.POLISHING MACHINE TENDER on April 24, 2024 at 12:40 PM documented in this encounterAcmc Healthcare System03-06-2025 [facility]02-28-2025 Telephone encounter Note* Telephone Encounter - Saranya Heredia LPN - 04/18/2024 3:08 PM EST July with [facility] called stating she spoke with staff member taking care of Homero @ [place] [facility] & they were requesting her to D/C Homero's Lidocaine patch order. D/C order wasfaxed to [facility] as requested on 04/11/24. July stated they were also requesting a verbal order be called to [facility]. Discussed with Caroline Orlando NP. I called & spoke with Pharmacist @ [facility], Verbal order given to discontinue Lidocaine patch. Saranya Heredia LPN [facility]02-28-2025 Miscellaneous Notes* Telephone Encounter - Saranya Heredia LPN - 04/18/2024 3:08 PM EST July with [facility] called stating she spoke with staff member taking care of Homero @ [place] & they were requesting her to D/C Homero's Lidocaine patch order. D/C order wasfaxed to [place] as requested on 04/11/24. July stated they were also requesting a verbal order be called to [facility] Pharm[facility]. Discussed with Caroline Orlando NP. I called & spoke with Pharmacist @ [facility], Verbal order given to discontinue Lidocaine patch. Saranya Heredia LPN documented in this encounterAcmc Healthcare System02-28-2025 Telephone encounter Note * Telephone Encounter - Shruthi Cortés RN - 04/18/2024 10:56 AM EST Call placed to or [facility]. Spoke with Prachi. Instructed to have patient take Lasix 40 mg daily. He will be reevaluated by phone on May 07, 2024. As per the request of Prachi, a prescription for Lasix 40 mg daily has been sent to pharmacy of choice. [facility]02-28-20[facility] Miscellaneous Notes* Telephone Encounter - Shruthi Cortés RN - 04/18/2024 10:56 AM EST Call placed to [facility]. Spoke with Prachi. Instructed to have patient take Lasix 40 mg daily. He will be reevaluated by phone on May 07, 2024. As per the request of Prachi, a prescription for Lasix 40 mg daily has been sent to pharmacy of choice. * Telephone Encounter - Derek Russ APRN.CNP - 04/18/2024 9:49 AM EST Thank you for the update. He does have follow-up next week with CTS to review fluid volume overloadand wound check. Concern he will have 1 month in between appointments with CTS and heart failure clinic. During this timeframe he will go back down to Lasix 40 mg daily. I would like to set up another phone visit for the heart failure clinic to reach out to him during this 1 month timeframe to see if he is starting to swell/gain weight and we can intervene with increasing Lasix back to twice daily if needed before his May follow-up. Can you please set up a nurse visit for sometime in between the dates of 04/24 and 05/21. Thank you Derek Russ APRN.POLISHING MACHINE TENDER * Telephone Encounter - Shruthi Cortés RN - 04/18/2024 9:37 AM EST Patient resides at [facility]. The heart failure clinic was also instructed to contact nurse merchandising assistant at this facility. Spoke with Prachi. Weight gain: Reported weight loss down to 190.4 pounds as of 04/17/2024. This is a 7 pound weight loss since being seen in the heart failure clinic on 04/15/2024 Edema: Reported decreased swelling to bilateral lower extremities. Prachi reported that legs appearmuch improved since being seen in the heart failure clinic on 04/15/2024. She states the leg swelling in the upper thighs has decreased to none. She did report that he has softer swelling to his lower extremities however she is able to place his compression stockings on. SOB with activity: Reported shortness of breath has improved significantly. He is able to ambulate without concern. SOB at rest: Reported none SOB when lying flat: Reported none Abdominal distention: reported softly distended. Changed in appetite: Reported no concerns Cough: Reported none Heart Failure specific medications: (list current, note updates, changes, prior intolerance) BB: Lopressor 12.5 twice a day. Hold for heart rate less than 60 bpm and/or systolic blood pressureless than 100 mmHg. MORE/ARB/ARNI: None at this time per Camila Russ CNP MRA: Possible addition per Camila Russ CNP SGLT2: Possible addition per Camila Russ CNP DIURETIC: Lasix 40 mg twice daily for 14 days. This will end approximately April 20, 2024. OTHER: Eliquis, potassium chloride Recent blood pressures per facility 04/17/2024 AM check 92/58 -83 (Lopressor held) 04/17/2024 PM check 146/88 -80 04/18/2024 AM check 110/60 -74 Although he is down in weight, Prachi reported continued swelling to lower extremities. She reported to this nurse that when his Lasix is decreased to daily he will become fluid volume overloaded. She reported that she cannot control his fluid intake. Patient is very forgetful and although in the dining yates they do limit his fluid, he gets up, goes to his room and drinks what ever he wants . She also stated that they have been attempting to minimize sodium intake to help combat the increased overload. Will forward the above to [place] for review and any further recommendation. documented in this encounterAcmc Healthcare System02-28-2025 Telephone encounter Note * Telephone Encounter - Shurthi Cortés RN - 04/18/2024 10:48 AM EST Please review as discussed [facility]02-28-2025 Miscellaneous Notes* Telephone Encounter - Shruthi Cortés RN - 04/18/2024 10:48 AM EST Please review as discussed documented in this encounterAcmc Healthcare System02-28-2025 Telephone encounter Note * Telephone Encounter - Tawana Hopkins RN - 04/18/2024 10:30 AM EST Alycia from [facility] calls to report that patient has taken Melatonin 3 times since being prescribed medication and it has been effective. Tawana Hopkins RN [facility]02-28-2025 Miscellaneous Notes* Telephone Encounter - Tawana Hopkins RN - 04/18/2024 10:30 AM EST Alycia from [facility] calls to report that patient has taken Melatonin 3 times since being prescribed medication and it has been effective. Tawana Hopkins RN documented in this encounterAcmc Healthcare System02-28-2025 Telephone encounter Note * Telephone Encounter - Derek Russ APRN.TADEO - 04/18/2024 9:49 AM EST Thank you for the update. He does have follow-up next week with CTS to review fluid volume overloadand wound check. Concern he will have 1 month in between appointments with CTS and heart failure clinic. During this timeframe he will go back down to Lasix 40 mg daily. I would like to set up another phone visit for the heart failure clinic to reach out to him during this 1 month timeframe to see if he is starting to swell/gain weight and we can intervene with increasing Lasix back to twice daily if needed before his May follow-up. Can you please set up a nurse visit for sometime in between the dates of 04/24 and 05/21. Thank you Derek Russ APRN.POLISHING MACHINE TENDER [facility]02-28-20[facility] Telephone encounter Note* Telephone Encounter - Shruthi Cortés RN - 04/18/2024 9:37 AM EST Patient resides at [facility]. The heart failure clinic was also instructed to contact nurse merchandising assistant at this facility. Spoke with Prachi. Weight gain: Reported weight loss down to 190.4 pounds as of 04/17/2024. This is a 7 pound weight loss since being seen in the heart failure clinic on 04/15/2024 Edema: Reported decreased swelling to bilateral lower extremities. Prachi reported that legs appearmuch improved since being seen in the heart failure clinic on 04/15/2024. She states the leg swelling in the upper thighs has decreased to none. She did report that he has softer swelling to his lower extremities however she is able to place his compression stockings on. SOB with activity: Reported shortness of breath has improved significantly. He is able to ambulate without concern. SOB at rest: Reported none SOB when lying flat: Reported none Abdominal distention: reported softly distended. Changed in appetite: Reported no concerns Cough: Reported none Heart Failure specific medications: (list current, note updates, changes, prior intolerance) BB: Lopressor 12.5 twice a day. Hold for heart rate less than 60 bpm and/or systolic blood pressureless than 100 mmHg. MORE/ARB/ARNI: None at this time per Camila Russ CNP MRA: Possible addition per Camila Russ CNP SGLT2: Possible addition per Camila Russ CNP DIURETIC: Lasix 40 mg twice daily for 14 days. This will end approximately April 20, 2024. OTHER: Eliquis, potassium chloride Recent blood pressures per facility 04/17/2024 AM check 92/58 -83 (Lopressor held) 04/17/2024 PM check 146/88 -80 04/18/2024 AM check 110/60 -74 Although he is down in weight, Prachi reported continued swelling to lower extremities. She reported to this nurse that when his Lasix is decreased to daily he will become fluid volume overloaded. She reported that she cannot control his fluid intake. Patient is very forgetful and although in the dining yates they do limit his fluid, he gets up, goes to his room and drinks what ever he wants . She also stated that they have been attempting to minimize sodium intake to help combat the increased overload. Will forward the above to Ms. Russ for review and any further recommendation. [facility]02-28-2025 [facility]02-28-2025 History of Present illness Narrative* Shruthi Cortés, KATELYN - 04/18/2024 9:21 AM EST Patient scheduled for a follow up phone visit with the heart failure clinic nurse for review of heart failure symptoms. [facility] phone #[phone] extension 4 [facility] fax #[phone] [facility] pharmacy [phone] Call placed to patient at agreed-upon scheduled time. Voicemail left requesting return call. Patient resides at [facility]. The heart failure clinic was also instructed to contact nurse merchandising assistant at this facility. Spoke with Prachi. Please note, Prachi had requested the heart failure clinic to cancel lidocaine patch that was ordered by [facility]. Instructed her to contact this office for this cancellation. Prachi did state that she has requested this from the office and has not heard or received a return call. The heart failure clinic did reach out to [facility] notifying them of this request. Weight gain: Reported weight loss down to 190.4 pounds as of 04/17/2024. This is a 7 pound weight loss since being seen in the heart failure clinic on 04/15/2024 Edema: Reported decreased swelling to bilateral lower extremities. Prachi reported that legs appearmuch improved since being seen in the heart failure clinic on 04/15/2024. She states the leg swelling in the upper thighs has decreased to none. She did report that he has softer swelling to his lower extremities however she is able to place his compression stockings on. SOB with activity: Reported shortness of breath has improved significantly. He is able to ambulate without concern. SOB at rest: Reported none SOB when lying flat: Reported none Abdominal distention: reported softly distended. Changed in appetite: Reported no concerns Cough: Reported none Heart Failure specific medications: (list current, note updates, changes, prior intolerance) BB: Lopressor 12.5 twice a day. Hold for heart rate less than 60 bpm and/or systolic blood pressureless than 100 mmHg. MORE/ARB/ARNI: None at this time per Camila Russ CNP MRA: Possible addition per Camila Russ CNP SGLT2: Possible addition per Camila Russ CNP DIURETIC: Lasix 40 mg twice daily for 14 days. This will end approximately April 20, 2024. OTHER: Eliquis, potassium chloride Recent blood pressures per facility 04/17/2024 AM check 92/58 -83 (Lopressor held) 04/17/2024 PM check 146/88 -80 04/18/2024 AM check 110/60 -74 Although he is down in weight, Ariella reported continued swelling to lower extremities. She reported to this nurse that when his Lasix is decreased to daily he will become fluid volume overloaded. She reported that she cannot control his fluid intake. Patient is very forgetful and although in the dining yates they do limit his fluid, he gets up, goes to his room and drinks what ever he wants . She also stated that they have been attempting to minimize sodium intake to help combat the increased overload. Upcoming appointments have been reviewed with Prachi. Next visit scheduled as previously scheduled with Camila Russ CNP on May 21, 2024 documented in this encounterAcmc [facility]02-26-2025 Telephone encounter Note * Telephone Encounter - Sylwia Nguyen LPN - 04/16/2024 11:08 AM EST Spoke with pt and information listed below given. Pt verbalizes understanding. Sylwia Nguyen LPN [facility]02-26-[facility]25 Miscellaneous Notes* Telephone Encounter - Sylwia Nguyen LPN - 04/16/2024 11:08 AM EST Spoke with pt and information listed below given. Pt verbalizes understanding. Sylwia Nguyen LPN * Telephone Encounter - Marissa Black RN - 04/16/2024 8:39 AM EST Call placed to [place] with [facility] and message left to return call to triage nurse to receive message below. Marissa Black RN * Telephone Encounter - Lenin Chaudhary MD - 04/16/2024 7:01 AM EST Agree with recommendations. * Telephone Encounter - Marissa Black RN - 04/15/2024 5:03 PM EST [place] with [facility] calls to let provider know that that they will be taking over his wound care at [facility] and requesting orders for twice weekly dressing changes. Orders are for cleanse left harmon surgical wound with normal saline, pat dry, pack with denzel, and cover with dry clean dressing. Indy requests call back at [phone]. Marissa Black RN documented in this encounterAcmc Healthcare System02-26-2025 Telephone encounter Note * Telephone Encounter - Marissa Black RN - 04/16/2024 8:39 AM EST Call placed to [place] with [facility] and message left to return call to triage nurse to receive message below. Marissa Black RN [facility]02-26-2025 Telephone encounter Note* Telephone Encounter - Lenin Chaudhary MD - 04/16/2024 7:01 AM EST Agree with recommendations. [facility]02-25-2025 Telephone encounter Note* Telephone Encounter - Marissa Black RN - 04/15/2024 5:03 PM EST Indy with [facility] calls to let provider know that that they will be taking over his wound care at [facility] and requesting orders for twice weekly dressing changes. Orders are for cleanse left harmon surgical wound with normal saline, pat dry, pack with denzel, and cover with dry clean dressing. Indy requests call back at [phone]. Marissa Black RN [facility]02-25-2025 Telephone encounter Note* Telephone Encounter - Carla Wing RN - 04/15/2024 1:26 PM EST Call returned to [facility]. The [facility] will now be point of contact for any weight gain or increase in symptoms. The [facility] will call patient and caregiver on Sunday to review patient's response to IV diuretic and update weight/symptoms. Nadia appreciative of return call and verbalized understanding. [facility]02-25-2025 Miscellaneous Notes* Telephone Encounter - Carla Wing RN - 04/15/2024 1:26 PM EST Call returned to [facility]. The [facility] will now be point of contact for any weight gain or increase in symptoms. The [facility] will call patient and caregiver on Sunday to review patient's response to IV diuretic and update weight/symptoms. Nadia appreciative of return call and verbalized understanding. * Telephone Encounter - Sylwia Whyte - 04/15/2024 1:11 PM EST Patient's caregiver, Nadia, at independent living reached out to the [facility]. She is questioning the the orders of monitoring, weight, fluid intake and edema and contacting the [facility]. She stated that they already had an order to contact Dr Iqbal's office with the same information. She is asking if both need to be be notified of changes or is the [facility] replacing the call to [facility]. Also, she stated that she would like to speak about the TeleHealth appointment scheduled on 04-18-24. [phone] Ext [phone] documented in this encounterAcmc Healthcare System02-25-2025 Miscellaneous Notes* Telephone Encounter - Maren Ruiz APRN.CNP - 04/15/2024 1:15 PM EST Images from the original note were not included. [facility] Phone Note Surgeon: Dr. Iqbal Surgery: S/p CABG Date of the surgery: 02/28/24 Origin of the call: surgeon's office Date of the call: 04/15/24 Reason for call: Spoke with son, who is primary contact for patient. Updated son on recent labs that were done today. Explained that they are all improving nicely. Explained that kidney function is normal and this is good given that he has been on higher doses of lasix recently. Discussed that we will continue to monitor labs from time to time. Informed if he has any questions to please call us or Heart Failure clinic. All questions were answered and son verbalized understanding. Contact information: [phone] How call resolved: Updated on blood work Required follow up: has f/u appt on 04/24/24 SIGNATURE: Maren Ruiz APRN.CNP DATE of SERVICE: 04/15/2024 TIME of SERVICE: 1:15 PM documented in this encounterAcmc Healthcare System02-25-2025 Telephone encounter Note * Telephone Encounter - Maren Ruiz APRN.CNP - 04/15/2024 1:15 PM EST Images from the original note were not included. [facility] Phone Note Surgeon: Dr. Iqbal Surgery: S/p CABG Date of the surgery: 02/28/24 Origin of the call: surgeon's office Date of the call: 04/15/24 Reason for call: Spoke with son, who is primary contact for patient. Updated son on recent labs that were done today. Explained that they are all improving nicely. Explained that kidney function is normal and this is good given that he has been on higher doses of lasix recently. Discussed that we will continue to monitor labs from time to time. Informed if he has any questions to please call us or Heart Failure clinic. All questions were answered and son verbalized understanding. Contact information: [phone] How call resolved: Updated on blood work Required follow up: has f/u appt on 04/24/24 SIGNATURE: Maren Ruiz APRN.CNP DATE of SERVICE: 04/15/2024 TIME of SERVICE: 1:15 PM [facility] Telephone encounter Note* Telephone Encounter - Sylwia Whyte - 04/15/2024 1:11 PM EST Patient's caregiver, Nadia, at independent living reached out to the [facility]. She is questioning the the orders of monitoring, weight, fluid intake and edema and contacting the [facility]. She stated that they already had an order to contact Dr Iqbal's office with the same information. She is asking if both need to be be notified of changes or is the [facility] replacing the call to [facility]. Also, she stated that she would like to speak about the TeleHealth appointment scheduled on 04-18-24. [phone] Ext 4 [facility]02-[facility]25 [facility]02-25-2025 History of Present illness Narrative* Carla Wing RN - 04/15/2024 8:31 AM EST [id number] and his son presented to the [facility] for an initial visit with ED. Patient arrived 30 minutes late but [facility] was able to adjust schedule to see patient. Patient is active with Dr. Gill with an EF of 64% per echo on 12/13/23. Patient came to the [facility] ambulating without assistance. Patient with some complaints of SOB/fatigue with exertion. Medication updates noted in MAR: Yes Adherence with medications: Yes Dietary Adherence: Unsure-Never educated. Patient lives in an assisted living facility. He does notadd salt to foods but is unsure what is in his food. Not sure if he is balancing sodium throughout the day. Will provide education packet at this visit. [id number] further evaluated by Cirilo Russ CNP. Recommendations received at this time and placed on the after visit summary. Reviewed with patient and son. Verbalized understanding. Pt ID Confirmed: Yes Medications given: Lasix Hepwell Placed at (time): 0930 After standard prep, peripheral Hepwell started in left antecubital, x 1 attempt(s) with 22g angiocath. Flushed: 10ccs normal saline Hepwell capped & taped DSD(s) applied. Complications: no Monitored: no Urine Output: n/a Hepwell DC'd at (time): 0950 Complications: no Follow up for a follow up phone visit on 04/18/24 and in 1 month with RN or as needed per POLISHING MACHINE TENDER recommendation. Carla Wing RN IFER * Derek Russ APRN.POLISHING MACHINE TENDER - 04/15/2024 7:45 AM EST PRIMARY CARE PHYSICIAN: Lenin Chaudhary [address] [place] [address] Chief Complaint Patient presents with: CHF HISTORY OF PRESENT ILLNESS: Mr. Mei is a 78 year old male who is known to Dr Gill Pt lives at [facility] Patient has a significant medical hx of CAD s/p CABG X 3 (Scales-LAD, SVG- PDA, SVG- OM1) 02/2024, mild-moderate dementia, HTN, HLD, CHRISTIANO, Left heart cath 2023 now s/p cabg NM Stress 12/2023 ischemia rca now s/p cabg Ejection fraction 11/2023 was 64% Patient home weight -- Patient current weight 200 was 220's before starting Lasix 04/07 Patient seen today as a new patient consult from CTS. patient is accompanied today with his son. Both are very pleasant alert and oriented. Both very willing and eager to learn. Spent time reviewing fluid and salt restrictions. Unfortunately patient eats 3 meals a day at his assisted living place and is very limited on what he can do as far as the amount of salt in his food so we talked about trying to eat different portions that will still fit within the salt restriction. Patient can however follow the fluid restriction. And feels he will do well with this. Patient states he has lost approximately 20 pounds since 04/07. Patient states he feels much better legs are much less swollen. Today was the first day he was able to put shoes on as well as blue jeans. His bilateral lower legs are still engorged and hard with swelling some fluid retention remainingin his abdomen very light crackles bilateral lower lungs and slight JVD remaining. Patient states his breathing is better denies orthopnea at this time. Patient states he still continues to have some fatigue the leg swelling and at times lightheadedness when he goes to stand up but is very brief in nature. He is getting up slower to make sure he doesnot fall. Patient continues to have a healing wound from his SVG site. CTS is following this. Patient completed his antibiotics for this yesterday 03/2023. CBC was drawn per CTS request to help follow his whiteblood cell count excetra. He does have follow-up with CTS next week to reevaluate the wound. With medication review patient is compliant with current medication list. We did discuss spironolactone and SGLT2 inhibitors as options out there to help with fluid volume overload however I feel at this time Lasix has thus far worked we will continue with this at this time for preserved ejection fraction heart failure. Patient has been taking Lasix 40 mg twice daily at home we will continue this at this time. Patient was agreeable to IV Lasix in the office today. IV Lasix 40 mg x 1 given BMP drawn as a baseline as well as because he has been on increased Lasix. Spent time discussing postoperative complications including fluid volume overload atrial fibrillation today. Patient expressed his frustration of the overall healing process emotional support given today. Pt denies chest pain, shortness of breath, heart palpitations, orthopnea, cough, fever, dizziness, near syncope or syncope, nausea, vomiting diaphoresis, or falls Reviewed with patient and adjusted as needed : PMH, PSH, Fam hx, Social hx, Allergies. Medications: Current Outpatient Medications Medication Sig Dispense Refill senna-docusate (SENNA WITH DOCUSATE SODIUM) 8.6-50 mg per tablet Take 1 tablet by mouth once daily. senna-docusate (SENNA WITH DOCUSATE SODIUM) 8.6-50 mg per tablet Take 1 tablet by mouth once daily as needed for constipation. lidocaine (LIDODERM) 5 % Apply 1 Patch as directed once daily. to affected area. Remove patch after12 hours. 30 Patch 2 furosemide (LASIX) 40 mg tablet Take 1 tablet by mouth two times a day for 14 days. 28 tablet 0 potassium chloride ER (KLOR-CON) 20 mEq tablet Take 1 tablet by mouth two times a day for 14 days. 28 tablet 0 acetaminophen (TYLENOL) 500 mg tablet Take 2 tablets by mouth every 8 hours as needed for pain. aspirin, enteric coated (ASPIRIN, ENTERIC COATED) 81 mg EC tablet Take 1 tablet by mouth once daily. 360 tablet 0 metoprolol tartrate, short acting, (LOPRESSOR) 25 mg tablet Take 0.5 tablets by mouth two times a day. Hold for HR <60 and/or SBP <100 90 tablet 0 lactobacillus combination no.4 (PROBIOTIC) 3 billion cell cap Take 1 capsule by mouth once daily. 30 capsule 0 docusate sodium (COLACE) 100 mg capsule Take 1 capsule by mouth two times a day as needed for constipation. 90 capsule 1 melatonin 3 mg capsules Take 1 capsule by mouth at bedtime as needed for insomnia. 30 capsule 2 ferrous sulfate 325 mg (65 mg iron) tablet Take 1 tablet by mouth once daily. tamsulosin (FLOMAX) 0.4 mg Take 1 capsule by mouth two times a day. apixaban (ELIQUIS) 5 mg tab(s) Take 1 tablet by mouth two times a day. ascorbic acid, vitamin C, (VITAMIN C) 500 mg tablet Take 1 tablet by mouth once daily. folic acid 1 mg tablet Take 1 tablet by mouth once daily. magnesium oxide (MAG-OX) 400 mg (241.3 mg magnesium) tablet Take 1 tablet by mouth once daily. polyethylene glycol 3350 17 gram packet Take 1 Packet by mouth once daily. Dissolve dose in 4 - 8 ounces of liquid and take as directed. fluticasone (FLONASE) 50 mcg/actuation nasal spray Use 2 Sprays in each nostril once daily as needed. cholecalciferol (VITAMIN D3) 1,000 unit tab tablet Take by mouth once daily. Taking 25 MCG daily donepezil (ARICEPT) 10 mg tablet Take 1 tablet by mouth daily with breakfast. 90 tablet 1 atorvastatin (LIPITOR) 40 mg tablet Take 1 tablet by mouth once daily. 90 tablet 1 vit C/E/Zn/coppr/lutein/zeaxan (PRESERVISION AREDS-2 ORAL) Take 1 capsule by mouth two times a day. latanoprost (XALATAN) 0.005 % ophthalmic solution Use 1 Drop in both eyes daily at bedtime. cyanocobalamin (VITAMIN B-12) 1,000 mcg tab Take 1 tablet by mouth once daily. [address] (PROTONIX) 40 mg tablet Take 40 mg by mouth once daily. bt-yzh-SS-vit J-rouomn-tzuyrqu (PRESERVISION AREDS 2 PLUS MV) 200 mcg-15 mcg- 5 mg-1 mg cap Take 1 tablet by mouth two times a day. No current facility-administered medications for this visit. Review of Systems Constitutional: Positive for fatigue. Negative for activity change, appetite change, chills and fever. HENT: Negative for ear discharge, nosebleeds and sinus pain. Eyes: Negative for discharge. Respiratory: Negative for apnea, cough, chest tightness, shortness of breath and wheezing. Cardiovascular: Positive for leg swelling. Negative for chest pain and palpitations. Gastrointestinal: Negative for abdominal distention, abdominal pain, anal bleeding, blood in stool,nausea and vomiting. Genitourinary: Negative for difficulty urinating. Musculoskeletal: Negative for gait problem. Skin: Negative. Neurological: Positive for light-headedness. Negative for dizziness, syncope and weakness. Hematological: Does not bruise/bleed easily. Psychiatric/Behavioral: Negative for confusion and sleep disturbance. Physical Examination: Vitals:BP 132/84 Pulse 72[regular[ Resp 18 Ht 6' 1 (1.85m) Wt 200 lb (90.7kg) SpO2 97[onRA]% BMI 26.39 kg/(m^2). Last 2 Encounter Wt Readings: Date: Wt: 04/07/2024 90.9 kg (200 lb 6.4 oz) 03/24/2024 100.6 kg (221 lb 12.8 oz) Physical Exam Vitals and nursing note reviewed. Constitutional: General: He is not in acute distress. Appearance: Normal appearance. He is not ill-appearing, toxic-appearing or diaphoretic. HENT: Head: Normocephalic. Nose: Nose normal. Eyes: General: Vision grossly intact. Extraocular Movements: Extraocular movements intact. Neck: Vascular: JVD present. No carotid bruit or hepatojugular reflux. Trachea: No tracheal deviation. Comments: Slight JVD Cardiovascular: Rate and Rhythm: Normal rate and regular rhythm. Chest Wall: PMI is not displaced. Pulses: Normal pulses. Heart sounds: Normal heart sounds. No murmur heard. Comments: 3-4+ engorged hard edema gregorio lower legs Pulmonary: Effort: Pulmonary effort is normal. No respiratory distress. Breath sounds: Examination of the right-lower field reveals decreased breath sounds. Examination ofthe left-lower field reveals decreased breath sounds. Decreased breath sounds present. Comments: Light crackles gregorio lower lobes Abdominal: General: Bowel sounds are normal. There is distension. Palpations: Abdomen is soft. Tenderness: There is no abdominal tenderness. Comments: Slightly tight distended abd +fluid retention Musculoskeletal: General: Normal range of motion. Cervical back: Normal range of motion and neck supple. Right lower le+ Edema present. Left lower le+ Edema present. Skin: General: Skin is warm and dry. Capillary Refill: Capillary refill takes less than 2 seconds. Coloration: Skin is not pale. Nails: There is no clubbing. Neurological: Mental Status: He is alert and oriented to person, place, and time. Cranial Nerves: No facial asymmetry. Motor: No weakness. Coordination: Coordination normal. Gait: Gait normal. Psychiatric: Attention and Perception: Attention normal. Mood and Affect: Mood normal. Behavior: Behavior normal. Thought Content: Thought content normal. Cognition and Memory: Memory normal. Judgment: Judgment normal. Prior Cardiac Testing Echocardiogram 11/2023 Impression CONCLUSIONS: - Exam indication: Abnormal ECG - The left ventricle is normal in size. Left ventricular systolic function is normal. EF = 64 5% (2D biplane) Normal left ventricular diastolic function. - The right ventricle is dilated. Right ventricular systolic function is normal. - The right atrial cavity is dilated. - There are no significant valvular abnormalities. - The visualized aorta is borderline dilated with a maximal dimension of 3.9 cm. - There is mild (1+) tricuspid regurgitation. - Estimated right ventricular systolic pressure is 42 mmHg consistent with mild pulmonary hypertension. Estimated right atrial pressure is 15 mmHg based on IVC assessment. - The patient has not had a prior CC echocardiographic exam for comparison. Left heart cath 12/2023 DIAGNOSTIC FINDINGS + + Coronary Anatomy: Right Dominant Injection Site(s): Coronary Artery LMT: The LMT has mild diffuse disease. LAD: The proximal LAD is narrowed 80 % - severe diffuse disease. Additional Comment: Large-caliber vessel. The proximal to mid vessel has severe diffuse disease up to 80% luminal narrowing in multiple areas. LCX: The 1st obtuse marginal circumflex is narrowed 90 % - focal disease. Additional Comment: Large-caliber nondominant vessel. There is a large first obtuse marginal branch which has a focal proximal 90% stenosis. RAMUS: Ramus Status: Not Applicable. RCA: The proximal RCA is narrowed 90 % - focal disease. Additional Comment: Large-caliber dominant vessel. There is an eccentric 90% stenosis in the proximal vessel. The mid and distal vessel has mild diffuse disease. + + IMPRESSION/PLAN + + Impression:Severe multivessel coronary artery disease with right coronary dominant system. Normal LVEDP Recommended Treatment: Medical Therapy and CABG. Plan: Consultation with cardiothoracic surgery for consideration of coronary bypass grafting Assessment and Plan: ASSESSMENT/PLAN: 1. Chronic heart failure with preserved ejection fraction (HCC) - ICD9: 428.9, ICD10: I50.32 NYHA II Patient is endorsing at this time increased fatigue status post heart surgery, lightheadedness at times when standing which is very brief in nature Shortness of breath has overall improved but still there with longer walks Bilateral lower legs are still hard and engorged swelling a 3-4+ Fluid remaining in his abdomen which is tight slightly distended Patient is denying orthopnea fluid retention in his thighs or hips --Reviewed diet 2mg sodium, 64oz fluid restriction< monitoring wts and calling the office if noticing a 3 pound weight gain in 2 days --Discussed foods to avoid such as canned foods, lunch meats, frozen meals, webster, sausage, and restaurant meals. --cont to follow with the heart failure clinic phone call in a few days to review fluid volume status and weights in person visit we plan at this time in a few weeks. If however with phone visit patient is still having issues we shall bring patient in next week he is in [place] for CTS appointment . -Continue : BB : Lopressor 12.5mg bid MORE/ARB/ARNI : Preserved ejection fraction patient has been having lower blood pressures today as systolic 132. Did not necessarily need to add at this time MRA : Discussed possibly adding if continues to have fluid volume overload issues. Patient does have preserved ejection fraction SGLT2i : Discussed we could possibly add if continue to have fluid volume overload issues patient does have normal EF Diuretic : Lasix 40mg twice daily/potassium --his current home dose Plan: Lasix IV 40 mg x 1 BMP today Phone visit if okay will see patient in a few weeks in person if patient not doing well at home canbring patient in possibly Sunday when he is already here for CTS appointment Hydralazine : no Isosorbide : no Derek Russ APRN.CNP Plan: see chf plan above Follow up planning: Return in about 4 weeks (around 05/13/2024) for Follow up with Camila Russ APRN, CNP RN phone visit this week . Medical Decision Making: Problems: High: Chronic illness with severe change Data: Unique source(s) for external note(s) reviewed: 2 Unique test result(s) reviewed: 2 Unique test(s) ordered: 1 Assessment requiring an independent historian(s) Risk: Moderate: Drug management High: Drug therapy requiring intensive monitoring Medical Decision Making Level: 5 - High The above note was partially created using a dictation recognition software. A reasonable attempt has been made to correct any errors. I have confirmed and edited as necessary the [facility] and information obtained by others. Reviewed with patient to call with any routine questions arise, however patient developed increasing symptoms or symptoms became worse in severity made to call 911 and presented to the closest emergency department from urgent treatment. documented in this encounterAcmc Healthcare System02-25-2025 Instructions* Patient Instructions* Derek Russ APRN.CNP - 04/15/2024 8:31 AM EST Thank you for visiting the Heart Failure Clinic today. Today you received IV Lasix 40 mg x 1 Continue Lasix 40 mg twice a day at this time Plan phone visit later this week to review fluid volume status/swelling and weights. We may be ableto decrease Lasix at this time we may need to bring you in for another appointment depending Please weigh daily and record. Read your food labels and watch for hidden sodium. Keep your sodium intake between 3045-8737 mg daily. 500-650 mg per meal. Continue to eat small, frequent meals. Try to include a form of protein with every meal. Keep your fluid intake at 48-64 ounces /day. Increase your activity as tolerated. Call the [facility] ([phone]) for AN APPOINTMENT (NO WALK-IN VISITS) if you have changes in symptoms or increase in weight of 3 lbs in one day or 5 lbs in a week. Thank you, Carla Wing, KATELYN documented in this encounterAcmc Healthcare System02-25-2025 [facility]02-24-2025 Instructions* Patient Instructions* Kobe Rodriguez APRN.CNP, DNP - 04/14/2024 10:56 AM EST Follow up with Kobe Rodriguez APRN.CNP, DNP in 6 months Cont Flomax twice a day for urinary symptoms. Please contact our office if Rx needs renewed. Avoid bladder irritants - coffee, tea, cola drinks, chocolate, alcohol, artificial sweeteners and cigarettes I discussed treatment options at length including r/b/a of each: To include Medication therapy and the role of further evaluation with UDS, TRUS and cysto if indicated. Discussed the role of pharmacotherapy, including risks, benefits and alternatives: Alpha-darcy therapy [e.g. Tamsulosin] - potential risks of dizziness, asthenia, orthostasis, and retrograde ejaculation. Return to the clinic or seek care at [facility] for any worsening signs or symptoms: such as fevers, chills, worsening pain, gross blood in urine or worsening urinary symptoms. For severe symptoms seek care at the closest ER. Plan of care, medicaiton side effects and management reviewed with patient. Healthy Habits: Recommend regular physical activity, nutrition and healthy eating habits. Consume a variety of foods every day focusing on fruits, vegetables and lean meats). Eat foods low in fat, saturated fat and cholesterol. Eat a limited amount of salt and sodium. Drink adequate amounts of water and limit sugary drinks. Exercise portion control in meal selection. Establish a mindset of a wellness approach to health. Thank you for allowing me to provide your care today. I look forward to seeing you again and maintaining your health. Kobe Rodriguez APRN.NAHUM PIEDRA documented in this encounterAcmc Healthcare System02-24-2025 History of Present illness Narrative* Kobe Rodriguez APRN.NAHUM PIEDRA - 04/14/2024 10:30 AM EST Images from the original note were not included. [facility] MALE PATIENT - HISTORY AND PHYSICAL EXAMINATION PATIENT: Homero Mei PCP: Lenin Chaudhary MD CHIEF COMPLAINT: BPH/LUTS follow up HISTORY OF PRESENT ILLNESS: 78 year old year old male with BPH/LUTS follow up Past med Hx: BPH, CTS, CHRISTIANO, HLD, HTN, PAM, VIT D def. Son present today for appt. Seen Dr. Laurent in June 2023 for BPH, UTI and UR. BPH: Started on Flomax. Had dizziness. Stopped Flomax. Here for follow up. Unsure how long he did take Flomax or the severity of the dizziness. At last appt we restarted Flomax and son was going to evaluate for any side effects. Denies any sig dizziness. Adjusted to bid dosing (AM and bedtime). Recently had a CABG x 3 (Scales-LAD, SVG- PDA, SVG- OM1) with Dr. Iqbal on 02/28/24. Surgery went as planned. Patient was transferred to CVICU in stable condition and was extubated under early parameters. Post op course complicated by agitation/delirium, and atrial fibrillation requiring eliquis initiation. Was started on AC s/p surgery - Eliquis 5mg. Not wearing pads. PRESENTING HISTORY: Hematuria: none Obstructive voiding symptoms: weak stream. Irritative voiding symptoms: frequency and nocturia Urinary retention: no Urinary incontinence: no Urinary tract infection: no PSA PSA Screening Latest Ref Rng 0.00 - 2.59 ng/mL 0.00 - 2.59 ng/mL 05/16/2013 1.41 05/20/2014 1.27 06/05/2018 1.77 12/08/2019 0.95 06/30/2020 1.06 Patient Entered Questionnaires: INTERNATIONAL PROSTATE SYMPTOM SCORE (I-PSS) PREVIOUS TOTAL IPSS SCORE: 12 QOL = 2 1. Incomplete emptying 1 2. Frequency 2 3. Intermittency 0 4. Urgency 3 5. Weak stream 0 6. Straining 0 7. Nocturia 3 TOTAL IPSS SCORE 13 QOL = 2 PROMIS Global Health 12/16/2019 12/12/2021 12/17/2023 PROMIS Global Health Scale Physical Health Percentile 78 66 Mental Health Percentile 82 26 Patient-reported Percentiles provide an indication of how the patient's score ranks in relation to the general population. Higher percentile rankings indicate better function/quality of life. 50th percentile is the average of the general population and indicates half of respondents had a worse score. HISTORY: PAST MEDICAL HISTORY Diagnosis Date Alzheimer's dementia without behavioral disturbance, psychotic disturbance, mood disturbance, or anxiety, unspecified dementia severity, unspecified timing of dementia onset (HCC) Ascending aorta dilatation (HCC) borderline Benign prostatic hyperplasia with urinary frequency Bilateral carpal tunnel syndrome s/p release on right Bilateral inguinal hernia s/p mesh BPH (benign prostatic hyperplasia) CAD (coronary artery disease) 12/21/2023 abnormal stress test. moderate ischemia in RCA DDD (degenerative disc disease), lumbar resolved after discectomy Depression Deviated septum s/p septoplasty Hyperlipidemia Iron deficiency anemia Irritable bowel syndrome 08/1997 improved Lipoma of neck left posterior neck CHRISTIANO (obstructive sleep apnea) [address] 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 Iqbal on 02/28/24 Scalp psoriasis Unspecified essential hypertension Upper GI bleed 05/2023 Vitamin D insufficiency PAST SURGICAL HISTORY Procedure Laterality Date BACK SURGERY HX CABG (3) VEIN GRAFTS & ARTERIAL GRAFT(S) 02/28/2024 CABG x 3 (Scales-LAD, SVG- PDA, SVG- OM1) with Dr. Iqbal on 02/28/24 COLON SURGERY HX COLONOSCOPY FLX DX W/COLLJ SPEC WHEN PFRMD , 11/19, 01/24, 01/29 COLONOSCOPY FLX DX W/COLLJ SPEC WHEN PFRMD 03/22/2015 Colonoscopy-repeat 5 years COLONOSCOPY FLX DX W/COLLJ SPEC WHEN PFRMD 11/23/2020 COLONOSCOPY GEN ANES 04/12/2020 Repeat in 1 year COLONOSCOPY GEN ANES 04/26/2020 3 polyps removed. 40 mm, 5 mm, 5mm. repeat in 6 months. DISKECTOMY, LUMBAR, SINGLE SP 2006 HERNIA REPAIR HX mesh INGUINAL HERNIA REPAIR HX 07/19/2010 bilateral inguinal hernia repair with mesh NEUROPLASTY &/TRANSPOS MEDIAN NRV CARPAL TUNNE Right 03/26/2015 Carpal tunnel decomp right PAST SURGICAL HISTORY OF Left 04/10/2019 arthroscopic knee for torn meniscus RHINP PRIM LAT&ALAR CRTLGS&/ELVTN NASAL TI 2009 Rhinoplasty SKIN BIOPSY HX Social History Tobacco Use Smoking status: Never Smokeless tobacco: Never Vaping Use Vaping status: Never Used Substance Use Topics Alcohol use: No Drug use: No FAMILY HISTORY Problem Relation Age of Onset Heart Mother CHF Hypertension Mother Stroke Father Hypertension Father MEDICATIONS: Current Outpatient Medications Medication Sig lidocaine (LIDODERM) 5 % Apply 1 Patch as directed once daily. to affected area. Remove patch after12 hours. furosemide (LASIX) 40 mg tablet Take 1 tablet by mouth two times a day for 14 days. potassium chloride ER (KLOR-CON) 20 mEq tablet Take 1 tablet by mouth two times a day for 14 days. acetaminophen (TYLENOL) 500 mg tablet Take 2 tablets by mouth every 8 hours as needed for pain. aspirin, enteric coated (ASPIRIN, ENTERIC COATED) 81 mg EC tablet Take 1 tablet by mouth once daily. metoprolol tartrate, short acting, (LOPRESSOR) 25 mg tablet Take 0.5 tablets by mouth two times a day. Hold for HR <60 and/or SBP <100 amoxicillin-clavulanate potassium (AUGMENTIN) 875-125 mg per tablet Take 1 tablet by mouth every 12hours for 10 days. lactobacillus combination no.4 (PROBIOTIC) 3 billion cell cap Take 1 capsule by mouth once daily. docusate sodium (COLACE) 100 mg capsule Take 1 capsule by mouth two times a day as needed for constipation. (Patient taking differently: Take 100 mg by mouth once daily.) melatonin 3 mg capsules Take 1 capsule by mouth at bedtime as needed for insomnia. ferrous sulfate 325 mg (65 mg iron) tablet Take 1 tablet by mouth once daily. jw-jhv-RD-vit N-deamgl-cgfflqg (PRESERVISION AREDS 2 PLUS MV) 200 mcg-15 mcg- 5 mg-1 mg cap Take 1 tablet by mouth two times a day. tamsulosin (FLOMAX) 0.4 mg Take 1 capsule by mouth two times a day. apixaban (ELIQUIS) 5 mg tab(s) Take 1 tablet by mouth two times a day. ascorbic acid, vitamin C, (VITAMIN C) 500 mg tablet Take 1 tablet by mouth once daily. folic acid 1 mg tablet Take 1 tablet by mouth once daily. magnesium oxide (MAG-OX) 400 mg (241.3 mg magnesium) tablet Take 1 tablet by mouth once daily. polyethylene glycol 3350 17 gram packet Take 1 Packet by mouth once daily. Dissolve dose in 4 - 8 ounces of liquid and take as directed. fluticasone (FLONASE) 50 mcg/actuation nasal spray Use 2 Sprays in each nostril once daily as needed. cholecalciferol (VITAMIN D3) 1,000 unit tab tablet Take by mouth once daily. Taking 25 MCG daily donepezil (ARICEPT) 10 mg tablet Take 1 tablet by mouth daily with breakfast. atorvastatin (LIPITOR) 40 mg tablet Take 1 tablet by mouth once daily. vit C/E/Zn/coppr/lutein/zeaxan (PRESERVISION AREDS-2 ORAL) Take 1 capsule by mouth two times a day. latanoprost (XALATAN) 0.005 % ophthalmic solution Use 1 Drop in both eyes daily at bedtime. cyanocobalamin (VITAMIN B-12) 1,000 mcg tab Take 1 tablet by mouth once daily. pantoprazole DR (PROTONIX) 40 mg tablet Take 40 mg by mouth once daily. No current facility-administered medications for this visit. LABS: Latest Ref Rng 04/14/2024 GLUCOSE UA (POCT) Negative mg/dL Negative BILIRUBIN UA (POCT) Negative Negative KETONE UA (POCT) Negative mg/dL Negative SPECIFIC GRAVITY UA (POCT) 1.005 - 1.030 1.020 HEMOGLOBIN/BLOOD UA (POCT) Negative Large ! PH UA (POCT) 4.5 - 8.0 7.0 PROTEIN UA (POCT) Negative mg/dL 30 ! UROBILINOGEN UA (POCT) Normal E.U./dL 0.2 NITRITE UA (POCT) Negative Negative LEUKOCYTES UA (POCT) Negative Negative COLOR UA (POCT) Yellow CLARITY UA (POCT) Clear Legend: ! Abnormal Creatinine Creatinine Date Value Ref Range Status 03/26/2024 0.96 0.73 - 1.22 mg/dL Final 03/10/2024 0.93 0.73 - 1.22 mg/dL Final 03/09/2024 0.92 0.73 - 1.22 mg/dL Final 03/08/2024 1.00 0.73 - 1.22 mg/dL Final PSA PSA (ng/mL) Date Value 06/05/2018 1.77 05/20/2014 1.27 05/16/2013 1.41 PSA Screening (ng/mL) Date Value 06/30/2020 1.06 12/08/2019 0.95 OFFICE DATA: POST-VOID RESIDUAL BLADDER VOLUME: YES, 0 cc IMAGING: No results found. Review of Systems: PAIN ASSESSMENT: CURRENTLY HAVING NO PAIN GENERAL: No weight loss, malaise or fevers GI: No nausea, vomiting MUSCULOSKELETAL: Negative for generalized joint pain SKIN: Negative for rash HEMATOLOGY/LYMPHOLOGY: Negative for swollen nodes All other systems reviewed and noncontributory PHYSICAL EXAMINATION: VITALS: There were no vitals taken for this visit. GENERAL: alert, no distress, normal affect RESPIRATORY: normal effort EXTREMITIES: normal SKIN: normal NEUROLOGIC: normal ASSESSMENT and PLAN 1. Benign prostatic hyperplasia with urinary frequency - ICD9: 600.01, 788.41, ICD10: N40.1, R35.0 (primary diagnosis) 78y/o male with dementia and BPH. Here for follow up appointment, NTF and frequency noted. Tolerating the Flomax. No dizziness. Recent Open Heart Surgery. Doing well post op. Is on AC with Eliquis. Resides in assisted living. No worsening of urinary symptoms. I discussed treatment options at lengthincluding r/b/a of each. I also discussed the role of further evaluation with UDS, TRUS and cysto if indicated. PVR = 0 ml UA = prot, + bld - send for ua micro Plan: Continue with Flomax - bid dosing (AM and bedtime) - ua micro pending Avoid bladder irritants - coffee, tea, cola drinks, chocolate, alcohol, artificial sweeteners and cigarettes follow up in 6 months - BLADDER SCAN - UA DIP back office - UA MICRO 2. Benign prostatic hyperplasia with nocturia - ICD9: 600.01, 788.43, ICD10: N40.1, R35.1 Plan as above. - UA DIP, URINE (POC) - POST VOID RESIDUAL 3. Alzheimer's dementia without behavioral disturbance, psychotic disturbance, mood disturbance, oranxiety, unspecified dementia severity, unspecified timing of dementia onset (HCC) - ICD9: 331.0, 294.10, ICD10: G30.9, F02.80 Cont follow up with Lenin Chaudhary MD Stable. His MCI complicates the picture of his urinary symptoms. This note was copied from previous note and exam dated 02/11/24. Author is Kobe Rodriguez APRN.POLISHING MACHINE TENDER, DNP note reviewed and changes have been made or updates noted in the copy & paste portion of an encounter. I spent a total of 30 minutes on the date of the service which included preparing to see the patient, jivd-pl-evhq patient care, completing clinical documentation, performing a medically appropriate examination, counseling and educating the patient/family/caregiver and ordering medications, tests, or procedures. Kobe Rodriguez DNP, CNP Department of Urology [facility] * Derek Robbins LPN - 04/14/2024 10:30 AM EST Verified name and date of . CC Post Void Residual HPI: Kan mindykristan is here now for an appointment with Michael Rosas APRN, DNP Procedure: Explained procedure to patient and verbalizes understanding. Performed a PVR. Patient urinated and instructed to empty bladder as much as possible just prior to having PVR done using bladder ultrasound scanner. Results of scan: x mL The patient tolerated the procedure well. Plan: Appointment with Kobe. documented in this encounterAcmc Healthcare System02-24-2025 [facility] Telephone encounter Note* Telephone Encounter - Saranya Heredia LPN - 04/10/2024 1:47 PM EST Opened in error. [facility]02-20-2025 Miscellaneous Notes* Telephone Encounter - Saranya Heredia LPN - 04/10/2024 1:47 PM EST Opened in error. documented in this encounterAcmc Healthcare System02-20-2025 Telephone encounter Note * Telephone Encounter - Sole Burrows APRN.CNP - 04/10/2024 8:54 AM EST Prescriptions provided, and faxed to facility. Also placed in scan box to be scanned into our records. Sole Burrows APRN.CNP [facility]02-20-2025 Miscellaneous Notes* Telephone Encounter - Sole Burrows APRN.CNP - 04/10/2024 8:54 AM EST Prescriptions provided, and faxed to facility. Also placed in scan box to be scanned into our records. Sole Burrows APRN.CNP * Telephone Encounter - Abril Poon LPN - 04/09/2024 3:49 PM EST [facility] [place] calling in leaving message on Nurse's Line stating that she has been in contact with the office and was expecting a fax so patient could see a Wound Nurse and to discontinue lidocaine patches. Please fax to: [phone]. [facility] states that their fax is acting up a bit so please if you sent it once to resend. Abril Poon LPN April 09, 2024 4:20 PM documented in this encounterAcmc Healthcare System02-19-2025 Telephone encounter Note * Telephone Encounter - Abril Poon LPN - 04/09/2024 3:49 PM EST [facility] calling in leaving message on Nurse's Line stating that she has been in contact with the office and was expecting a fax so patient could see a Wound Nurse and to discontinue lidocaine patches. Please fax to: [phone]. [facility] states that their fax is acting up a bit so please if you sent it once to resend. Abril Poon LPN April 09, 2024 4:20 PM [facility]02-18-2025 [facility]02-18-2025 Plan of care note* Plan of Care - Maren Ruiz APRN.TADEO - 04/08/2024 11:17 AM EST Received [facility] request for lido patches and referral to [facility] wound care. Faxed overnew scripts for both requests today. Asked that staff update office with full set of vitals, weight and how edema is doing on 04/10/24. Maren Ruiz APRN.TADEO [facility]02-18-2025 Miscellaneous Notes* Plan of Care - Maren Ruiz APRN.TADEO - 04/08/2024 11:17 AM EST Received [facility] request for lido patches and referral to [facility] wound care. Faxed overnew scripts for both requests today. Asked that staff update office with full set of vitals, weight and how edema is doing on 04/10/24. Maren Ruiz APRN.POLISHING MACHINE TENDER * Telephone Encounter - Saranya Heredia LPN - 04/08/2024 9:41 AM EST Salome, nurse from [facility] called & left voice message stating they need orders faxed forHarold for [facility] wound care to see him & per Homero his Lidocaine patches were D/C'd so also need order for that. They would like orders faxed to [phone]. They can be reached @[phone]. Saranya Heredia LPN documented in this encounterAcmc Healthcare System02-18-2025 Telephone encounter Note * Telephone Encounter - Rodolfo Jameson MA - 04/08/2024 10:24 AM EST Echocardiogram 04/22/24 11:20am arrival time 11:05am at [facility] [phone]. Appointment reminder faxed to [facility] on 04/08/24. Their fax number is [phone], and phone number [phone]. [facility]02-18-2025 Miscellaneous Notes* Telephone Encounter - Rodolfo Jameson MA - 04/08/2024 10:24 AM EST Echocardiogram 04/22/24 11:20am arrival time 11:05am at [facility] [phone]. Appointment reminder faxed to [facility] on 04/08/24. Their fax number is [phone], and phone number [phone]. documented in this encounterAcmc Healthcare System02-18-2025 Telephone encounter Note * Telephone Encounter - Saranya Heredia LPN - 04/08/2024 9:41 AM EST Salome, nurse from [facility] called & left voice message stating [facility] him & per Homero his Lidocaine patches were D/C'd so also need order for that. They would like orders faxed to [phone]. They can be reached @[phone]. Saranya Heredia LPN [facility]02-17-2025 Telephone encounter Note* Telephone Encounter - Sole Burrows APRN.CNP - 04/07/2024 5:02 PM EST Called number provided. No answer, left VM to please call back our office. Sole Burrows APRN.TADEO [facility]02-17-2025 Miscellaneous Notes* Telephone Encounter - Sole Burrows APRN.CNP - 04/07/2024 5:02 PM EST Called number provided. No answer, left VM to please call back our office. Sole Burrows APRN.TADEO * Telephone Encounter - Saranya Heredia LPN - 04/07/2024 4:34 PM EST [facility] & left voice message stating they got the notes from today's office visit stating Homero could have home nursing for wound care. She said they need an order faxed to [phone]. Caro can be reached @ [phone]. Saranya Heredia LPN documented in this encounterAcmc Healthcare System02-17-2025 Telephone encounter Note * Telephone Encounter - Saranya Heredia LPN - 04/07/2024 4:34 PM EST Caro Nurse @ [facility] called & left voice message stating they got the notes from today's office visit stating Homero could have home nursing for wound care. She said they need an order faxed to [phone]. Caro can be reached @ [phone]. Saranya Heredia LPN [facility]02-17-2025 Instructions* Patient Instructions* Sole Burrows APRN.CNP - 04/07/2024 2:02 PM EST You have done a great job recovering from you surgery, moving forward, here are the recommendations: Medications: please continue taking Aspirin (we decreased this to 81 mg once daily), beta darcy (we decreased this to 12.5 mg metoprolol twice a day), and statin for coronary artery disease. Pleaseavoid taking NSAIDs (Aleve, Ibuprofen, Motrin, Advil, Mobic etc) Vest: ok to stop using Cardiac Rehab: [phone] ([facility]) or [phone] ([facility]) [phone] ([facility], floor 1)- YOU CAN CALL TO SCHEDULE NOW You will have a EKG stress test before and after the cardiac rehab, which will be arranged by rehabcenter. Restrictions: slowly increase weight bearing in a gradual fashion (5-10 lbs increment each month) over the next 2-3 months to allow further healing, then gradually resume your normal activities depending on how you feel. Follow-ups: It is crucial to establish future appointments with your main providers, they are you registration representative , primary care doctor for medications refills/questions and future health management. FOR LEG SWELLING: -Make sure to wear your compression stockings during the day, elevate your legs when you can several times during the day, place a pillow under your legs at night if you can tolerate. - I placed a new order for lasix 40 mg TWICE daily with potassium supplementation as well - try to limit your extra salt intake, LOW SODIUM DIET -Heart healthy, 2g low sodium diet -Daily weights- call us if you gain over 3 pounds in a day or over 5 pounds over a week - please have labwork drawn in next 10 days ( BMP/CBC) -CHF clinic referral placed today ECHOCARDIOGRAM- ordered today, we will call you with that time. SVG site wound care- shower daily with soap and water, pack with normal saline wet to dry dressing once daily using mesalt/NS/cover with gauze or bandaid. Continue antibiotics through completion. You can follow up with cardiac surgery team in two weeks for wound and swelling assessment and echoreview Please don't hesitate to contact us if you have any concerns/questions: [phone] Thanks for coming in to see me today. Sole Burrows APRN.CNP documented in this encounterAcmc Healthcare System02-17-2025 History of Present illness Narrative* Sole Burrows APRN.CNP - 04/07/2024 1:00 PM EST HPI: This is a 78 year old man with hx of mild-moderate dementia, HTN, HLD who was previously referred to Dr. Iqbal for evaluation of an abnormal stress test and multivessel coronary artery diseaseand for consideration of bypass surgery. He is being prepared for hip replacement surgery and a stress test was requested. This was abnormal. The SPECT perfusion study was performed on December 21, 2023 and showed moderate 10 to 20% area of ischemia in the territory of the RCA normal left ventricle function EF 62%. On this basis left heart catheterization was performed showing severe multivessel coronary disease. Patient denies chest heaviness, pressure, burning, exertional dyspnea, edema etc. However, he recently moved into an assisted living community so has not been as physically active as previously. Patient underwent CABG x 3 (Scales-LAD, SVG- PDA, SVG- OM1) with Dr. Iqbal on 02/28/24. Surgery went as planned. Patient was transferred to CVICU in stable condition and was extubated under early parameters. Post op course complicated by agitation/delirium, and atrial fibrillation requiring eliquis initiation. Dcd to [facility] on POD#11 (03/10/24) on room air and in controlled rate afib. DC summary states plan to dc with diuresis but appears none was ordered. 03/14/24 three day post dc phone call, patient's son reported patient sounded SOB on the phone and SNF nurse reported weight 214# when day prior weight was 209# (as well as reports of constipation), at which time lasix 20 mg daily x 5 days was ordered with 10 mEq K daily x 5 days and Senna S daily prn x 14 days ordered. 03/20/24 called SNF to check on patient. RN reported leg swelling is better, no SOB, pulse ox 95-97%on room air, weight stable for days ~ 214# and patient had BM 3 days prior. At this time asked RN to fax us lab results from 03/13/24 and to obtain new CBC & BMP and CXR to reflect completion of lasix and fax to our office. No lab results were received however CXR scanned into our system from [facility] at 10:36 PM that day and not brought to any provider's attention showed bilateral pleural effusions. Dcd from [facility] to his AL. 03/23/23 RN from patient's assisted living called reporting weight gain and pitting edema. 03/24/24 Seen in [facility] office for post op visit. Had worsening volume overload, non pitting BLE edema,and 17# above pre op weight. Was provided lasix 40 mg bid x 5 days then 40 mg daily x 5 days then 20 mg daily thereafter with potassium 20 mEq daily x 10 days then 10 mEq daily thereafter. CBC and BMP requested. SVG sites dehisced., no appearing infected- was advised on wound care and betadine wipes. INTERVAL EVENTS: 03/28/24- notified by AL left SVG site puffy, trace serous drainge. Requested [facility] to see pt. Imagesreceived. 03/31/24- notified by [place] nurse of concern of infection at SVG site. Wound culture ordered. Antibiotics ordered (Doxycycline). (Measuring 2.1 cm length x 1.1 cm width x 0.2 depth ). Advised to continuewashing L SVG wound daily with soap/water, patting dry, painting with betadine bid, and asked that they start wet-to-dry dressing changes bid to which she stated they ARE able to do 03/31/24 upper endoscopy (preivoulsy planned prior to CABG. Had some irregular beats under anesthesia. 04/01/24- CXR report received. Small right pleural effusion and basilar atelectasis. 04/04/24- notified by AL of worsening BLE edema feet to thighs. Per nurse, pt has been receiving lasix order as prescribed. States has had a 10# wt gain from 03/30- 04/04. Denies increased sob, dyspnea. Pt has been wearing doug hose and no change in activity or diet. Wound culture and CBC results scannedinto chart. Wound + E.coli, stopped doxy and started on augmentin with probiotic. H/H stable, no inc rease in WBC. Continue to paint wound with betadine and wet to dry dressing changes BID. Increased lasix to 40mg BID x 5 days the decrease to 40mg daily, requested new BMP and BNP, last Cr. was normal. 04/04/24 BMP Creat/K+ 1.05/4.2, BNP 2345. CBC ( WBC 5.3, H/H 9.6/30.0, pltl [id number]). Results scannedinto chart Patient returns to the office today for post-discharge follow up now approx 6 weeks post op. Here for follow up of SVG wound and worsening BLE edema.. Accompanied by Daughter in law. Son Indy is on the phone. Has continued on lasix 40 mg BID for last 3 days. Now on day 10 of augmentin. Reports hehas been feeling a little better lately. Still with significant BLE edema, thinks breathing is improved. Some lh/dizziness with ambulation to the appt today, no near syncope. Has noted some clear/bloody drainge to SVG site. Homero Mei reports home recovery as listed below: Episodes of dizziness or syncope: as above Chest pain: no Palpitations: no BP: reviewed per home log: not available Tolerating diet well without changing bowel habits: yes Fever, chills: no Activities at home with/without SOB or GLASS: walks - reports he feels his mobility is limited at theAL because they require him to use his walker which he thinks he does not need. Post surgical pain without pain medications - denies pain. Leg edema: significant BLE edema Sleep: finally good Energy: stable, improving Subjective: Current Outpatient Medications Medication Sig amoxicillin-clavulanate potassium (AUGMENTIN) 875-125 mg per tablet Take 1 tablet by mouth every 12hours for 10 days. lactobacillus combination no.4 (PROBIOTIC) 3 billion cell cap Take 1 capsule by mouth once daily. furosemide (LASIX) 40 mg tablet Take 1 tablet by mouth two times a day for 5 days, THEN 1 tablet once daily. docusate sodium (COLACE) 100 mg capsule Take 1 capsule by mouth two times a day as needed for constipation. melatonin 3 mg capsules Take 1 capsule by mouth at bedtime as needed for insomnia. acetaminophen (TYLENOL) 500 mg tablet Take 2 tablets by mouth four times daily. potassium chloride ER (KLOR-CON) 20 mEq tablet Take 1 tablet by mouth once daily for 10 days, THEN 0.5 tablets once daily. ferrous sulfate 325 mg (65 mg iron) tablet Take 1 tablet by mouth once daily. mr-teu-YQ-vit R-fjvrrh-uuwsnhw (PRESERVISION AREDS 2 PLUS MV) 200 mcg-15 mcg- 5 mg-1 mg cap Take 1 tablet by mouth two times a day. aspirin, enteric coated (ASPIRIN, ENTERIC COATED) 81 mg EC tablet Take 2 tablets by mouth once daily for 30 days, THEN 1 tablet once daily. tamsulosin (FLOMAX) 0.4 mg Take 1 capsule by mouth two times a day. apixaban (ELIQUIS) 5 mg tab(s) Take 1 tablet by mouth two times a day. ascorbic acid, vitamin C, (VITAMIN C) 500 mg tablet Take 1 tablet by mouth once daily. folic acid 1 mg tablet Take 1 tablet by mouth once daily. lidocaine (SALONPAS) 4 % patch Apply 1 Patch as directed once daily. Cut patch in half lengthwise and place one half on each side of sternal incision magnesium oxide (MAG-OX) 400 mg (241.3 mg magnesium) tablet Take 1 tablet by mouth once daily. metoprolol tartrate, short acting, (LOPRESSOR) 25 mg tablet Take 0.5 tablets by mouth every 8 hours. Hold for HR <60 and/or SBP <100 polyethylene glycol 3350 17 gram packet Take 1 Packet by mouth once daily. Dissolve dose in 4 - 8 ounces of liquid and take as directed. fluticasone (FLONASE) 50 mcg/actuation nasal spray Use 2 Sprays in each nostril once daily as needed. cholecalciferol (VITAMIN D3) 1,000 unit tab tablet Take by mouth once daily. donepezil (ARICEPT) 10 mg tablet Take 1 tablet by mouth daily with breakfast. atorvastatin (LIPITOR) 40 mg tablet Take 1 tablet by mouth once daily. vit C/E/Zn/coppr/lutein/zeaxan (PRESERVISION AREDS-2 ORAL) Take 1 capsule by mouth two times a day. latanoprost (XALATAN) 0.005 % ophthalmic solution Use 1 Drop in both eyes daily at bedtime. cyanocobalamin (VITAMIN B-12) 1,000 mcg tab Take 1 tablet by mouth once daily. pantoprazole DR (PROTONIX) 40 mg tablet Take 40 mg by mouth once daily. No current facility-administered medications for this visit. Patient has no known allergies. PAST MEDICAL HISTORY Diagnosis Date Alzheimer's dementia without behavioral disturbance, psychotic disturbance, mood disturbance, or anxiety, unspecified dementia severity, unspecified timing of dementia onset (HCC) Ascending aorta dilatation (HCC) borderline Benign prostatic hyperplasia with urinary frequency Bilateral carpal tunnel syndrome s/p release on right Bilateral inguinal hernia s/p mesh BPH (benign prostatic hyperplasia) CAD (coronary artery disease) 12/21/2023 abnormal stress test. moderate ischemia in RCA DDD (degenerative disc disease), lumbar resolved after discectomy Depression Deviated septum s/p septoplasty Hyperlipidemia Iron deficiency anemia Irritable bowel syndrome 08/1997 improved Lipoma of neck left posterior neck CHRISTIANO (obstructive sleep apnea) [address] 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 Iqbal on 02/28/24 Scalp psoriasis Unspecified essential hypertension Upper GI bleed 05/2023 Vitamin D insufficiency PAST SURGICAL HISTORY Procedure Laterality Date BACK SURGERY HX CABG (3) VEIN GRAFTS & ARTERIAL GRAFT(S) 02/28/2024 CABG x 3 (Scales-LAD, SVG- PDA, SVG- OM1) with Dr. Iqbal on 02/28/24 COLON SURGERY HX COLONOSCOPY FLX DX W/COLLJ SPEC WHEN PFRMD , 11/19, 01/24, 01/29 COLONOSCOPY FLX DX W/COLLJ SPEC WHEN PFRMD 03/22/2015 Colonoscopy-repeat 5 years COLONOSCOPY FLX DX W/COLLJ SPEC WHEN PFRMD 11/23/2020 COLONOSCOPY GEN ANES 04/12/2020 Repeat in 1 year COLONOSCOPY GEN ANES 04/26/2020 3 polyps removed. 40 mm, 5 mm, 5mm. repeat in 6 months. DISKECTOMY, LUMBAR, SINGLE SP 2006 HERNIA REPAIR HX mesh INGUINAL HERNIA REPAIR HX 07/19/2010 bilateral inguinal hernia repair with mesh NEUROPLASTY &/TRANSPOS MEDIAN NRV CARPAL TUNNE Right 03/26/2015 Carpal tunnel decomp right PAST SURGICAL HISTORY OF Left 04/10/2019 arthroscopic knee for torn meniscus RHINP PRIM LAT&ALAR CRTLGS&/ELVTN NASAL TI 2009 Rhinoplasty SKIN BIOPSY HX FAMILY HISTORY Problem Relation Age of Onset Heart Mother CHF Hypertension Mother Stroke Father Hypertension Father Social History Tobacco Use Smoking status: Never Smokeless tobacco: Never Vaping Use Vaping status: Never Used Substance Use Topics Alcohol use: No Drug use: No Review of Systems Constitutional: Negative for chills, diaphoresis, fever, malaise/fatigue and weight loss. HENT: Negative for nosebleeds and tinnitus. Respiratory: Negative for cough, hemoptysis, sputum production, shortness of breath and wheezing. Cardiovascular: Positive for leg swelling. Negative for chest pain, palpitations, orthopnea, claudication and PND. Gastrointestinal: Negative for abdominal pain, blood in stool, constipation, diarrhea, nausea and vomiting. Genitourinary: Positive for frequency and urgency. Negative for hematuria. Since increase of lasix. No dysuria or foul odor Musculoskeletal: Negative for falls. Skin: Negative for itching and rash. Neurological: Positive for dizziness. Negative for tingling, sensory change, speech change, focal weakness, weakness and headaches. Psychiatric/Behavioral: Positive for memory loss. Objective: One month post- op Chest X-ray is done and reviewed today. 04/01/24- CXR report received. Small right pleural effusion and basilar atelectasis. Physical Examination: Vitals:BP 134/70 Pulse 78 Resp 16 Ht 6' 1 (1.85m) Wt 200 lb 6.4 oz (90.9kg) SpO2 99% BMI 26.45 kg/(m^2). Last 2 Encounter Wt Readings: Date: Wt: 03/24/2024 221 lb 12.8 oz (100.6 kg) 02/11/2024 207 lb (93.9 kg) Physical Exam Vitals reviewed. HENT: Head: Normocephalic and atraumatic. Right Ear: External ear normal. Left Ear: External ear normal. Eyes: General: No scleral icterus. Extraocular Movements: Extraocular movements intact. Conjunctiva/sclera: Conjunctivae normal. Pupils: Pupils are equal, round, and reactive to light. Cardiovascular: Rate and Rhythm: Normal rate and regular rhythm. Pulses: Normal pulses. Heart sounds: Normal heart sounds. Pulmonary: Effort: Pulmonary effort is normal. Breath sounds: Normal breath sounds. Abdominal: General: Bowel sounds are normal. Palpations: Abdomen is soft. Musculoskeletal: Right lower leg: Edema present. Left lower leg: Edema present. Comments: 2+ pitting edema to knees. DOUG hose on Skin: General: Skin is warm and dry. Comments: Healed MSI without s/sx of infection, + sternal stability, CT sites healed L SVG site with dressing removed revealing open wound with notable red/pink granulation tissue 2.5 cm x 0.5 cm x 1 cm deep. Mild maranda wound erythema and edema. Cleaned with NS, debrided exposed suture as well as some eschar around inside perimeter of wound. Dr. Iqbal in to assess. Packed with garcia lt/NS/secured with bandaid. No odor/purulence/tenderness/ excessive warmth appreciated. Neurological: General: No focal deficit present. Mental Status: He is alert. Mental status is at baseline. Psychiatric: Mood and Affect: Mood normal. Assessment and Plan: MV CAD - S/p CABG x 3 (scales-lad, svg-OM1, svg-PDA;evh) with Dr. Iqbal on 02/28/24 - EF 64% preoperatively - Discharged POD #11 (03/10/24) to [facility] then to [facility] on 03/22/24 - pain controlled, ok to DC lidocaine patches. - Continue medical management with ASA 81 mg daily, and atorvastatin - Metoprolol 12.5mg TID- decrease to BID - Continue HH Diet - Continue Bowel regimen, see below - Encouraged ambulation and mobilization, IS use - DC post thorax vest - maintain sternal precautions of no pushing/pulling/lifting more than 15-20# until 04/27 then add 5-10# every month thereafter - Phase II cardiac rehab previously ordered. Reviewed with pt and family- ok to start now. Number provided for [facility] location. They will call to arrange. Delayed surgical wound healing - 04/04/24, Wound + E.coli, stopped doxy and started on augmentin with probiotic. H/H stable, no increase in WBC. - L SVG site with 2.5 cm x 0.5 cm x 1 cm deep dehiscence, not appearing infected, good tissue granulation, well approximated. See attached picture - Gave instructions to wash daily with mild soap and water, daily W2D NS/mesalt/bandaid or gauze - continue 10 day course of augmentin (day 05/29 now) - continue aggressive diuretic therapy to reduce BLE edema/DOUG hose/elevation- reviewed at length with pt/family Atrial Fibrillation - Rate controlled, originally converted spontaneously but back to atrial fibrillation AM of POD#5 - Metoprolol 12.5 mg tid with hold parameters decreased 03/07 from 25 mg tid due to labile BP, will further decrease to 12.5 mg oral BID given reports of lh/dizziness and ongoing diureses. - Eliquis started evening of 03/04, CHADs > 2, tolerating without s/sx of bleeding - Heart rate and rhythm regular on exam Anticipated Post-Op Respiratory Insufficiency Trace apical pneumothorax on post pull CXR 03/04, resolved on CXR 03/05 - Saturating well on room air, 99% - Encouraged mobilization, IS, cough, and deep breathing - CXR on 03/20/24 showing bilateral pleural effusions, diuresis as below with repeat CXR next week with results to our office - 04/01/24- CXR report received. Small right pleural effusion and basilar atelectasis. Volume Overload - worse - Admission weight: 92.6 kg, weight on 03/08 prior to discharge was 97.1 kg, current weight 90.9 kg - Completed lasix 20 mg daily x 5 days with 10 mEq daily x 5 days from 03/14/24-03/18/24 - Completed lasix 40 mg bid x 5 days then 40 mg daily x 5 days then 20 mg daily thereafter with potassium 20 mEq daily x 10 days then 10 mEq daily thereafter (03/24/24-04/04/24) - Had notable BLE edema and weight gain reported per nursing (States has had a 10# wt gain from 03/30-04/04) - was restarted on lasix 40 mg oral BID 04/04 to present - stable BMP on recent draw (04/04/24 BMP Creat/K+ 1.05/4.2, BNP 2345. CBC ( WBC 5.3, H/H 9.6/30.0, pltl [id number]) - Continue lasix 40 mg TWICE daily with potassium supplementation x 2 weeks - try to limit your extra salt intake, LOW SODIUM DIET -Heart healthy, 2g low sodium diet -Daily weights- call us if you gain over 3 pounds in a day or over 5 pounds over a week - TEDs, BLE elevation -CHF clinic referral placed today- discussed with Camila Powell who offered visit to patient/familynext SUN/ (), but son declined and does not want to come in until 04/18. She will make sure to draw BMP/CBC at that visit, and send wound pic with us as well - Our service will call patient 04/14 to follow up on lasix therapy/tolerance/BLE edema/wound care - ECHO (will be done 04/22/24) Acute Blood Loss Anemia - Hgb (9.6/30.0) 8.4/26.4 - Received one unit on POD 2 - Continue to monitor, CBC next week - Ferrous sulfate (decrease to every day from tid, see below), folic acid, and Vit C supplementation - Denies bleeding concerns HTN -stable at today' visit, no BP log received from AL - decrease metoprolol 12.5 mg oral TID to BID - Home regimen includes 40mg of lisinopril, 25mg toprolol XL daily HLD - Continue home atorvastatin Mild-Moderate Dementia ICU Delirium - resolved - Appears orienting at baseline during visit; likely multifactorial - anesthesia, multiple transitions of care settings - Continue home Aricept - reports improved sleep schedule Constipation - Patient reports having regular BMs - decreased iron to every day from tid previously - Continue senna S daily PRN and senna S scheduled qhs -Return in 2 weeks for wound check/fluid assessment - CHF clinic visit 04/18 -Follow-up with [employer]: Dr. Gill scheduled 08/18/24 - encouraged family to move up sooner for further cardiac care -Cardiac rehab order placed, to start now -Follow up with PCP 05/06/24 -Follow up with urology 05/12/24 -Follow up with pulmonology 05/05/24 Sole Burrows APRN.CNP Electronically signed by Sole Burrows APRN.CNP on April 07, 2024, 12:50 PM documented in this encounterAcmc Healthcare System02-17-2025 [facility]02-14-2025 Telephone encounter Note* Telephone Encounter - Maren Ruiz APRN.CNP - 04/04/2024 2:59 PM EST Images from the original note were not included. [facility] Phone Note Surgeon: Dr. Iqbal Surgery: CABG x 3 (Scales-LAD, SVG- PDA, SVG- OM1) on 02/28/24. Origin of the call: Assisted Living Facility Date of the call: 04/04/24 Reason for call: Concern for increased edema from feet to thighs. Per nurse, pt has been receiving lasix order as prescribed. States has had a 10# wt gain from 03/30-04/04. Denies increased sob, dyspnea. Pt has been wearing doug hose and no change in activity or diet. Wound culture and CBC results scanned into chart. Wound + E.coli, stopped doxy and started on augmentin with probiotic. H/H stable, no increase in WBC. Continue to paint wound with betadine and wet to dry dressing changes BID. Increased lasix to 40mg BID x 5 days the decrease to 40mg daily, requested new BMP and BNP, last Cr. was normal. Instructed to call office for an increase in wt of 1# in a day or 3 # in 3 days. Contact information: [phone]; Ninoska (nurse) Faxed new ordered over to [facility] at [phone] Required follow up: F/U scheduled for 04/07/24 SIGNATURE: Maren Ruiz APRN.CNP DATE of SERVICE: 04/04/2024 TIME of SERVICE: 2:59 PM [facility]02-14-2025 Miscellaneous Notes* Telephone Encounter - Maren Ruiz APRN.CNP - 04/04/2024 2:59 PM EST Images from the original note were not included. [facility] Phone Note Surgeon: Dr. Iqbal Surgery: CABG x 3 (Scales-LAD, SVG- PDA, SVG- OM1) on 02/28/24. Origin of the call: Assisted Living Facility Date of the call: 04/04/24 Reason for call: Concern for increased edema from feet to thighs. Per nurse, pt has been receiving lasix order as prescribed. States has had a 10# wt gain from 03/30-04/04. Denies increased sob, dyspnea. Pt has been wearing doug hose and no change in activity or diet. Wound culture and CBC results scanned into chart. Wound + E.coli, stopped doxy and started on augmentin with probiotic. H/H stable, no increase in WBC. Continue to paint wound with betadine and wet to dry dressing changes BID. Increased lasix to 40mg BID x 5 days the decrease to 40mg daily, requested new BMP and BNP, last Cr. was normal. Instructed to call office for an increase in wt of 1# in a day or 3 # in 3 days. Contact information: [phone]; Ninoska (nurse) Faxed new ordered over to [facility] at [phone] Required follow up: F/U scheduled for 04/07/24 SIGNATURE: Maren Ruiz APRN.TADEO DATE of SERVICE: 04/04/2024 TIME of SERVICE: 2:59 PM * Telephone Encounter - Saranya Heredia LPN - 04/04/2024 1:29 PM EST Ninoskanurse @ [facility] called & left voice message asking if a wound nurse is coming to see Homero. She said they are doing the wet to dry dressings on his left lower leg & the area isstill open. She said he is still edematous up into his thighs. They are doing the lasix regimen as ordered. She said they lester labs this am but no results yet.Ninoska can be reached @ [phone] & ask for [facility]'s Nurse. Saranya Heredia LPN documented in this encounterJulie Ville [address]-14-2025 Telephone encounter Note * Telephone Encounter - Saranya Heredia LPN - 04/04/2024 2:37 PM EST Ninoska from [facility] called stating she faxed over the lab results. Maren Ruiz NP aware. Saranya Heredia LPN [facility]02-14-2025 Miscellaneous Notes* Telephone Encounter - Saranya Heredia LPN - 04/04/2024 2:37 PM EST Ninoska from [facility] called stating she faxed over the lab results. Maren Ruiz NP aware. Saranya Heredia LPN documented in this encounterAcmc Healthcare System02-14-2025 Telephone encounter Note * Telephone Encounter - Saranya Heredia LPN - 04/04/2024 1:29 PM EST Ninoska,nurse @ [facility] called & left voice message asking if a wound nurse is coming to see Homero. She said they are doing the wet to dry dressings on his left lower leg & the area isstill open. She said he is still edematous up into his thighs. They are doing the lasix regimen as ordered. She said they lester labs this am but no results yet.Ninoska can be reached @ [phone] & ask for Gladis's Nurse. Saranya Heredia LPN [facility]02-13-2025 Telephone encounter Note* Telephone Encounter - Lenin Chaudhary MD - 04/03/2024 3:06 PM EST Rx sent as requested. [facility]02-13-2025 Miscellaneous Notes* Telephone Encounter - Lenin Chaudhary MD - 04/03/2024 3:06 PM EST Rx sent as requested. * Telephone Encounter - Sabiha Owen RN - 04/03/2024 2:23 PM EST [facility] nurse calling from [employer] calling to request a prn medication for pt.Salome states pt previously had on his med list a prn order for Docusate Sodium for constipation. Pt had open heart surgery in early February and then he was transferred to skilled care facility so his previous orders had been discontinued. Pt was telling the nurse that he has having issues with his stools being very hard. Salome is requesting the prn script for Docusate sodium 1 capsule twice a day as needed for constipation. No need to return call if can just send script to [facility]. Order pended. documented in this encounterAcmc Healthcare System02-13-2025 Telephone encounter Note * Telephone Encounter - Sabiha Owen RN - 04/03/2024 2:23 PM EST Salome nurse calling from [employer] calling to request a prn medication for pt.Salome states pt previously had on his med list a prn order for Docusate Sodium for constipation. Pt had open heart surgery in early February and then he was transferred to skilled care facility so his previous orders had been discontinued. Pt was telling the nurse that he has having issues with his stools being very hard. Salome is requesting the prn script for Docusate sodium 1 capsule twice a day as needed for constipation. No need to return call if can just send script to [facility]. Order pended. [facility]02-12-2025 Note. MICRO - Microbiology PROCEDURE: Culture Wound Aerobic with Gram Stain [*1] SOURCE: Incision BODY SITE: Leg L COLLECTED DATE/TIME: 03/31/2024 14:23 EST RECEIVED DATE/TIME: 03/31/2024 19:01 EST START DATE/TIME: 03/31/2024 19:02 EST FREE TEXT SOURCE: FINAL REPORTS Final Report [] Verified Date/Time/Personnel: 04/02/2024 08:24 EST Few Escherichia coli Few normal skin wyatt present. Sensitivity testing not indicated. PRELIMINARY REPORTS Preliminary Report [] Verified Date/Time/Personnel: 04/01/2024 12:20 EST Few Escherichia coli ARUN to follow STAINS GS [] Verified Date/Time/Personnel: 03/31/2024 21:12 EST Rare Gram Negative Rods SUSCEPTIBILITY RESULTS Escherichia coli Antibiotic ARUN Dilut ARUN Inter Amikacin <=16 Susceptible Amoxicillin/ <=8/4 Susceptible Clavulanate Ampicillin <=8 Susceptible Ampicillin/ <=4/2 Susceptible Sulbactam Aztreonam <=4 Susceptible Cefazolin <=2 Susceptible Ceftazidime/ <=4 Susceptible Avibactam Ceftolozane/ <=2 Susceptible Tazobactam Ceftriaxone <=1 Susceptible Ciprofloxacin <=0.25 Susceptible Ertapenem <=0.5 Susceptible Gentamicin <=2 Susceptible ID Panel Not Not Applicable Applicable Imipenem <=1 Susceptible Levofloxacin <=0.5 Susceptible Meropenem <=1 Susceptible Minocycline <=4 Susceptible Moxifloxacin <=2 Susceptible Piperacillin/ <=8 Susceptible Tazobactam Tetracycline <=4 Susceptible Trimethoprim/ <=0.5/9.5 Susceptible Sulfa Performing Locations *1: This test was performed at: [facility], [address] [place] [address], [facility] , [facility]02-11-2025 Telephone encounter Note* Telephone Encounter - Sole Burrows APRN.CNP - 04/01/2024 2:04 PM EST CXR report reviewed. Notable for small right pleural effusion and basilar atelectasis. Sole Burrows APRN.CNP [facility] Work Phone: 1(800) 380-256602-11-2025 Miscellaneous Notes* Telephone Encounter - Sole Burrows APRN.CNP - 04/01/2024 2:04 PM EST CXR report reviewed. Notable for small right pleural effusion and basilar atelectasis. Sole Burrows APRN.TADEO * Telephone Encounter - Rodolfo Jameson MA - 04/01/2024 11:41 AM EST 03/31/24 CXR report received from [facility] portable x-ray service and scanned into Epic documented in this encounterAcmc Healthcare System02-11-2025 Telephone encounter Note * Telephone Encounter - Rodolfo Jameson MA - 04/01/2024 11:41 AM EST 03/31/24 CXR report received from [facility] portable x-ray service and scanned into Epic [facility]02-11-2025 Telephone encounter Note* Telephone Encounter - Elaine Marie MA - 04/01/2024 11:14 AM EST Nadia, nurse at [facility] notified and verbalized understanding. Elaine Marie MA [facility]02-11-2025 Miscellaneous Notes* Telephone Encounter - Elaine Marie MA - 04/01/2024 11:14 AM EST Nadia, nurse at [facility] notified and verbalized understanding. Elaine Marie MA * Telephone Encounter - Lenin Chaudhary MD - 04/01/2024 10:57 AM EST Rx sent for 3 mg melatonin to be used PRN for insomnia. Call if not helping in 2-3 weeks and would increase dosage. * Telephone Encounter - Francie Quiles LPN - 04/01/2024 10:47 AM EST Last OV: 02/06/24 - Next scheduled appt: 05/05/24 Nadia, a nurse with [facility], calls to report pt is having trouble sleeping. Nadia reports pt will fall asleep but wakes up around 3 am and is unable to get back to sleep. Nadia is asking if provider would be willing to prescribe pt something for sleep. Nadia reports the pt mentioned he has taken melatonin in the past. Please review and advise. Call Nadia with provider message. Francie Quiles LPN documented in this encounterAcmc Healthcare System02-11-2025 Telephone encounter Note * Telephone Encounter - Lenin Chaudhary MD - 04/01/2024 10:57 AM EST Rx sent for 3 mg melatonin to be used PRN for insomnia. Call if not helping in 2-3 weeks and would increase dosage. [facility]02-11-[facility] Telephone encounter Note* Telephone Encounter - Francie Quiles LPN - 04/01/2024 10:47 AM EST Last OV: 02/06/24 - Next scheduled appt: 05/05/24 Nadia, a nurse with [facility], calls to report pt is having trouble sleeping. Nadia reports pt will fall asleep but wakes up around 3 am and is unable to get back to sleep. Nadia is asking if provider would be willing to prescribe pt something for sleep. Nadia reports the pt mentioned he has taken melatonin in the past. Please review and advise. Call Nadia with provider message. Francie Qulies LPN [facility]02-10-2025 Telephone encounter Note* Telephone Encounter - Caroline Orlando APRN.CNP - 03/31/2024 4:50 PM EST See previous response to MC message from earlier today for further details at which time L SVG siteculture was ordered as well as doxycycline 100 mg bid x 10 days. Called patient's AL facility and spoke with nurseKathy - asked that they continue washing L SVG wound daily with soap/water, patting dry, painting with betadine bid, and asked that they start wet-to-dry dressing changes bid to which she stated they ARE able to do. No further questions/concerns. Patient scheduled to see us in the office 04/07/24 for follow up. [facility]02-10[facility] Miscellaneous Notes* Telephone Encounter - Caroline Orlando APRN.CNP - 03/31/2024 4:50 PM EST See previous response to MC message from earlier today for further details at which time L SVG siteculture was ordered as well as doxycycline 100 mg bid x 10 days. Called patient's AL facility and spoke with Kathy jamison - asked that they continue washing L SVG wound daily with soap/water, patting dry, painting with betadine bid, and asked that they start wet-to-dry dressing changes bid to which she stated they ARE able to do. No further questions/concerns. Patient scheduled to see us in the office 04/07/24 for follow up. documented in this encounterAcmc Healthcare System02-10-2025 Telephone encounter Note * Telephone Encounter - Maren Ruiz APRN.CNP - 03/31/2024 12:16 PM EST Images from the original note were not included. [facility] Phone Note Surgeon: Dr. Iqbal Surgery: CABG x3 Date of the surgery: 02/28/24 Origin of the call: Assisted Living Nurse Date of the call: March 31, 2024 Reason for call: Nurse (Nadia) called regarding LLE incision site is red, warm to the touch and draining small amount of clear to white fluid. Believes incision is worse then it was on Sunday when Measuring 2.1 cm length x 1.1 cm width x 0.2 depth. Denies fevers, chills, SOB, n/v/c/d, AMS, changesin eating habits. Contact information: [phone] (opt 4) How call resolved: Ordered wound culture and antibiotics (doxy x 10 days) and asked nurse to have family upload an image of the wound into [facility]. Call script into pharmacy. Required follow up: has office visit on 04/07 jodi/ Sole Burrows CNP SIGNATURE: Maren Ruiz APRN.CNP DATE of SERVICE: 03/31/2024 TIME of SERVICE: 12:16 PM [facility]02-10-[facility] Miscellaneous Notes* Telephone Encounter - Maren Ruiz APRN.CNP - 03/31/2024 12:16 PM EST Images from the original note were not included. [facility] [place] O[facility] Phone Note Surgeon: Dr. Iqbal Surgery: CABG x3 Date of the surgery: 02/28/24 Origin of the call: Assisted Living Nurse Date of the call: March 31, 2024 Reason for call: Nurse (Nadia) called regarding LLE incision site is red, warm to the touch and draining small amount of clear to white fluid. Believes incision is worse then it was on Sunday when Measuring 2.1 cm length x 1.1 cm width x 0.2 depth. Denies fevers, chills, SOB, n/v/c/d, AMS, changesin eating habits. Contact information: [phone] (opt 4) How call resolved: Ordered wound culture and antibiotics (doxy x 10 days) and asked nurse to have family upload an image of the wound into [facility]. Call script into pharmacy. Required follow up: has office visit on 04/07 w/ Sole Burrows CNP SIGNATURE: Maren Ruiz APRN.TADEO DATE of SERVICE: 03/31/2024 TIME of SERVICE: 12:16 PM * Telephone Encounter - Rodolfo Jameson MA - 03/31/2024 10:35 AM EST Assisted Living Nurse [phone] opt 4 to speak with nurse Mr. Hamida BERUMEN [place] [place] about 1/2 inch around the incision is red, warm to the touch. These are new symptoms since 03/28/24 phone call. No fever, no allergies to antibiotics. Home Wound Care was suggested 03/28/24, but has not taken place yet. documented in this encounterAcmc Healthcare System02-10-2025 Telephone encounter Note * Telephone Encounter - Rodolfo Jameson MA - 03/31/2024 10:35 AM EST Assisted Living Nurse [phone] opt 4 to speak with nurse Mr. Hamida BERUMEN [place] [place] about 1/2 inch around the incision is red, warm to the touch. These are new symptoms since 03/28/24 phone call. No fever, no allergies to antibiotics. Home Wound Care was suggested 03/28/24, but has not taken place yet. [facility]-10[facility] Evaluation note* Diagnosis Onset Date Resolution Status Admit Date Anemia acute March 31, 2024 5:34am GI bleed acute March 31, 2024 5:34am [facility] Work Phone: [phone]) 835-587202-10-2025 [facility] Medical Records Department [address] [place] [address] History Physical Exam 03/31/24 0652 MR#: [id number] Acct: [id number] Name: HOMERO MEI Rep #: [id number] : 1945 78 From: Cami Diaz DO PCP: Dr. Moiz Chaudhary MD [place] [facility] [place] [address] HPI - General General Date of Admission: 03/31/24 Date of Service: 03/31/24 Chief Complaint: Gastric ulcer HPI Narrative HOMERO MEI, is a 78 M who presents for surviallence of gastric ulcer. [facility] hospitalization 06.04.23 - 06.08.23 presents with his friend and his son because of increased confusion, near syncope, nausea, and jaundice. CT abd/pelvis 06.04.23 Nonspecific ileus. Diverticular disease of the descending colon without evidence for acute diverticulitis No evidence for small bowel obstruction or acute appendicitis EGD 06.05.23 Normal esophagus. Oozing gastric ulcer with a visible vessel. Injected. Treated with a heater probe. Non-bleeding gastric ulcer with no stigmata of bleeding. Biopsied. No gross lesions in the duodenal bulb. *BGI established 09.07.23 pt reports that he is feeling well overall, noting some fatigue, and denies GI symptoms of concern at this time. Pt reports normal bm; denies blood in the stool. Pt continues with pantoprazole and iron. [facility] Medical History History of echocardiogram History of stress test Cardiology follow-up encounter Open wound Lives in assisted living facility Wears glasses Anxiety Alcohol use History of renal disease Arthritis Anemia Syncope History of ulceration Non-smoker History of pain when walking Dementia Colon polyps Macular degeneration Hypertension Hyperlipidemia BPH (benign prostatic hyperplasia) Elevated BP without diagnosis of hypertension Hypoxia Severe sepsis Pneumonia due to COVID-19 virus Home Medications ???Medication ???Instructions ???Recorded ???Last Taken ???Type donepezil 5 mg tablet 10 mg PO DAILY 06/04/23 03/30/24 H istory pantoprazole 40 mg tablet,delayed 40 mg PO DAILY #30 tabs 09/11/23 03/30/24 Rx release (Protonix) fluticasone propionate 50 2 spray intranasal DAILY PRN PRN 0 09/28/23 Unknown History mcg/actuation nasal nasal congestion spray,suspension acetaminophen 500 mg capsule 1,000 mg PO Q6H PRN pain 03/27/24 03/30/24 History apixaban 5 mg tablet (Eliquis) 5 mg PO BID 03/27/24 03/30/24 Hist ory ascorbic acid (vitamin C) 500 mg 500 mg PO DAILY 03/27/24 03/30/24 History tablet (Vitamin C) aspirin 81 mg capsule 162 mg PO DAILY 03/27/24 03/30/24 History atorvastatin 40 mg tablet 40 mg PO DAILY 03/27/24 03/30/24 H istory cholecalciferol (vitamin D3) 25 25 mcg PO DAILY 03/27/24 03/30/24 History mcg (1,000 unit) capsule (Vitamin D3) cyanocobalamin (vitamin B-12) 1,000 mcg PO DAILY 03/27/24 History 1,000 mcg tablet ferrous sulfate 325 mg (65 mg 325 mg PO DAILY 03/27/24 03/30/24 History iron) tablet (FeroSul) folic acid 0.8 mg capsule 800 mcg PO DAILY 03/27/24 Unknown History furosemide 40 mg tablet (Lasix) 40 mg PO BID 03/27/24 03/30/24 His tory magnesium 200 mg tablet 400 mg PO DAILY 03/27/24 03/30/24 History metoprolol succinate 25 mg 12.5 mg PO TID 03/27/24 03/30/24 H istory tablet,extended release 24 hr potassium chloride 20 mEq oral 20 meq PO DAILY 03/27/24 03/30/24 History packet (Klor-Con) sennosides 8.6 mg-docusate sodium 1 tab-cap PO QHS 03/27/24 5 History 50 mg tablet (Senna Plus) tamsulosin 0.4 mg capsule 0.4 mg PO BID 03/27/24 03/30/24 Hi story vitamins A,C,C-fitk-nmktoe 2,148 2 tab PO DAILY 03/27/24 03/30/24 H istory mcg-113 mg-45 mg-17.4 mg tablet (Eye Multivitamin) Allergy/AdvReac Type Severity Reaction Status Date / Time No Known Allergies Allergy Verified 03/31/24 05:56 Family History Other CVA (cerebral vascular accident) Surgical History History of heart surgery History of lumbar spinal fusion Hx of inguinal hernia repair Hx of sinus surgery Hx of esophagogastroduodenoscopy Social History Smoking Status: Never smoker ROS Constitutional Constitutional: Denies fatigue, fever(s), poor appetite, weight gain or weight loss Gastrointestinal Gastrointestinal: Denies belching, bloating, change in bowel habits, change in stool character, chewing difficulty, coffee ground emesis, constipation, cramping, diarrhea, dyspepsia, dysphagia, early satiety, excessive flatus, fecal incontinence, heartburn, hematemesis, hematochezia, hemorrhoids, loose stools, melena, nausea, odynophagi (more content not included)...[facility]02-07-2025 Telephone encounter Note* Telephone Encounter - Maren Ruiz APRN.POLISHING MACHINE TENDER - 03/28/2024 2:26 PM EST Images from the original note were not included. [facility] Phone Note Surgeon: Dr. Iqbal Surgery: CABG x 3 (Scales-LAD, SVG- PDA, SVG- OM1) with Dr. Iqbal on 02/28/24. Date of the surgery: 02/28/24 Origin of the call: Assisted Living Nurse Date of the call: March 28, 2024 Diagnosis: Delayed Wound Healing of SVG site Reason for call: RN concerned about left SVG site. Describing puffy, not warm/tender, trace amount of scant serous drainage, No real depth to wound, redness around site. 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 D enies f/c/n/v/d/sob/c. Nurse asking for wound care to come out and visit to assist and help management wound. Contact information:[phone] option 4 to speak w/Nadia . How call resolved: Instructed to continue to wash daily and paint w/betadine, ordered HHC to come out and visit Required follow up: has visit set up in 2 weeks. SIGNATURE: Maren Ruiz APRN.CNP DATE of SERVICE: 03/28/2024 TIME of SERVICE: 2:26 PM [facility]02-07-[facility] Miscellaneous Notes* Telephone Encounter - Maren Ruiz APRN.TADEO - 03/28/2024 2:26 PM EST Images from the original note were not included. [facility] Phone Note Surgeon: Dr. Iqbal Surgery: CABG x 3 (Scales-LAD, SVG- PDA, SVG- OM1) with Dr. Iqbal on 02/28/24. Date of the surgery: 02/28/24 Origin of the call: Assisted Living Nurse Date of the call: March 28, 2024 Diagnosis: Delayed Wound Healing of SVG site Reason for call: RN concerned about left SVG site. Describing puffy, not warm/tender, trace amount of scant serous drainage, No real depth to wound, redness around site. 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 D enies f/c/n/v/d/sob/c. Nurse asking for wound care to come out and visit to assist and help management wound. Contact information:[phone] option 4 to speak w/Nadia . How call resolved: Instructed to continue to wash daily and paint w/betadine, ordered HHC to come out and visit Required follow up: has visit set up in 2 weeks. SIGNATURE: Maren Ruiz APRN.CNP DATE of SERVICE: 03/28/2024 TIME of SERVICE: 2:26 PM * Telephone Encounter - Saranya Heredia LPN - 03/28/2024 10:51 AM EST nurse Nadia @ [facility] & left voice message stating she has concerns about Homero's Left Leg incision & wanted to know if Dr. Iqbal would send an order for a wound nurse to see Homero. Nadia can be reached @ [phone] option 4 to speak with a Nurse. Saranya Heredia LPN documented in this encounterAcmc Healthcare System02-07-2025 Telephone encounter Note * Telephone Encounter - Saranya Heredia LPN - 03/28/2024 10:51 AM EST [facility] & left voice message stating she has concerns about Homero's Left Leg incision & wanted to know if Dr. Iqbal would send an order for a wound nurse to see Homero. Nadia can be reached @ [phone] option 4 to speak with a Nurse. Saranya Heredia LPN [facility]02-05-2025 Telephone encounter Note* Telephone Encounter - Arlyn Scott LPN - 03/26/2024 1:47 PM EST Phoned [facility] back and spoke with Libby since Lashawn was unavailable. Advised ofprovider's message. She voiced understanding. Arlyn Scott LPN [facility]02-05-2025 Miscellaneous Notes* Telephone Encounter - Arlyn Scott LPN - 03/26/2024 1:47 PM EST Phoned [facility] back and spoke with Libby since Lashawn was unavailable. Advised ofprovider's message. She voiced understanding. Arlyn Scott LPN * Telephone Encounter - Lenin Chaudhary MD - 03/26/2024 1:03 PM EST Yes, will follow. * Telephone Encounter - Marissa Black RN - 03/26/2024 11:56 AM EST Lashawn with [facility] calls to see if provider will follow their home healthorders for PT/OT. Patient discharged from long term care following rehab back to Assisted Living. Lashawn requests call back at [phone]. Marissa Black RN documented in this encounterAcmc Healthcare System02-05-2025 Telephone encounter Note * Telephone Encounter - Lenin Chaudhary MD - 03/26/2024 1:03 PM EST Yes, will follow. [facility] Telephone encounter Note* Telephone Encounter - Marissa Black RN - 03/26/2024 11:56 AM EST Lashawn with [facility] calls to see if provider will follow their home healthorders for PT/OT. Patient discharged from long term care following rehab back to Assisted Living. Lashawn requests call back at [phone]. Marissa Black RN [facility]02-05-20[facility] History of Present illness Narrative* Sole Franco, (R) - 03/26/2024 11:40 AM EST Radiology Service Progress Note PATIENT NAME: Homero Mei DATE OF SERVICE: March 26, 2024 TIME: 12:29 PM PATIENT IDENTITY VERIFICATION COMPLETED USING TWO (2) IDENTIFIERS: Name and Date of confirmedby patient verbally. FALL SCREENING: Has the patient had 2 falls in the last year or 1 fall with injury or currently using an Ambulatory Assistive Device (Walker, Cane, Wheelchair, Crutches, etc.)? No PATIENT GENDER DATA: Assigned male at PATIENT RELEVANT IMPLANT DATA REVIEWED: Not Applicable PATIENT PRESENTS WITH AN IMPLANTABLE OR ATTACHED RECEIVING SPECIALIST: No RADIOLOGY DEPARTMENT: General X-ray: Exam(s) Completed: Chest X-Ray PERIPHERAL IV DATA: Not applicable SIGNED BY: RT Harper(R) March 26, 2024 12:29 PM documented in this encounterAcmc Healthcare System02-05-2025 [facility] Tele[facility] encounter Note* Telephone Encounter - Sole Segura - 03/26/2024 9:23 AM EST Pt prefers [place] location. Orders sent by cardiology. [facility]02-05-[facility] Miscellaneous Notes* Telephone Encounter - Sole Segura - 03/26/2024 9:23 AM EST Pt prefers [place] location. Orders sent by cardiology. documented in this encounterAcmc Healthcare System02-04-2025 Telephone encounter Note * Telephone Encounter - Rodolfo Jameson MA - 03/25/2024 9:59 AM EST [facility] phone [phone] fax [phone] Faxed orders, 03/24/24 office visit, 02/28/24 operative report & 02/29/24 EKG on 03/25/24 [facility] Miscellaneous Notes* Telephone Encounter - Rodolfo Jameson MA - 03/25/2024 9:59 AM EST [facility] phone [phone] fax [phone] Faxed orders, 03/24/24 office visit, 02/28/24 operative report & 02/29/24 EKG on 03/25/24 documented in this encounterAcmc Healthcare System02-03-2025 Instructions* Patient Instructions* Caroline Orlando APRN.CNP - 03/24/2024 9:51 AM EST Weight: Please continue monitoring daily weight; Call us at [phone] if you gain more than 3# in one day or more than 5# in one week Activity:Continue gradual increase in activities as tolerated; Diet: Heart healthy diet with good protein intake; green leafy vegetable, low salt, and 2 L fluid daily Devices: Wear supportive stockings until leg swelling improved; posthorax vest (up to 1 month until03/30/24) during daytime and off at nighttime; Restrictions: Continue the weight limit to less than 10 lbs (for one month until 03/30/24 then no more than 15-20# until 04/27/24), and no driving until cleared by your providers; Advice: please change position slowly to prevent fall due to dizziness; Upcoming appointments: Please follow up back here in 2 weeks. Please move cardiology appointment sooner than 08/18/24 Please keep pulmonology appointment 05/05/24 Please keep primary care appointment 05/06/24 Please keep urology appointment 05/12/24 Wound care: to left leg wash daily with soap and water, pat dry, leave open to the air as often as possible. Pain with betadine twice daily. Please have chest x-ray done next week. Please start taking lasix 40 mg twice daily x 5 days with potassium 20 mEq daily x 5 days then lasix 40 mg daily x 5 days with 20 mEq daily x 5 days then lasix 20 mg daily thereafter with 10 mEq potassium daily thereafter. Please have CBC and BMP done 03/25/24 and fax results to [phone] Thanks for coming in to see me today. Please call us if you have any concerns/questions: [phone] Caroline Orlando APRN.TADEO documented in this encounterAcmc Healthcare System02-03-2025 History of Present illness Narrative* Caroline Orlando APRN.POLISHING MACHINE TENDER - 03/24/2024 9:00 AM EST Images from the original note were not included. HPI: This is a 78 year old man with hx of mild-moderate dementia, HTN, HLD who was previously referred to Dr. Iqbal for evaluation of an abnormal stress test and multivessel coronary artery diseaseand for consideration of bypass surgery. He is being prepared for hip replacement surgery and a stress test was requested. This was abnormal. The SPECT perfusion study was performed on December 21, 2023 and showed moderate 10 to 20% area of ischemia in the territory of the RCA normal left ventricle function EF 62%. On this basis left heart catheterization was performed showing severe multivessel coronary disease. Patient denies chest heaviness, pressure, burning, exertional dyspnea, edema etc. However, he recently moved into an assisted living community so has not been as physically active as previously. Patient underwent CABG x 3 (Scales-LAD, SVG- PDA, SVG- OM1) with Dr. Iqbal on 02/28/24. Surgery went as planned. Patient was transferred to CVICU in stable condition and was extubated under early parameters. Overnight on POD 0, the patient was confused and intermittently combative. He received haldoland was able to rest. In the evening of POD 1, the patient exhibited signs of sundowning, but was redirectable and intermittently got rest with repositioning and pain control. Early that AM, the patient did require haldol for agitation. Did go into atrial fibrillation overnight POD#3-POD#4, has been intermittent. POD#4 PT eval'd and rec SNF. POD#5 pacing wires removed, started eliquis that evening and transferred to stepdown unit. POD#7 showered with assistance. He continued to recover, receivediuresis, and discharged to [facility] on POD#11 (03/10/24) on room air and in controlled rateafib. DC summary states plan to dc with diuresis but appears none was ordered. 03/14/24 three day post dc phone call, patient's son reported patient sounded SOB on the phone and SNF nurse reported weight 214# when day prior weight was 209# (as well as reports of constipation), at which time jakeix 20 mg daily x 5 days was ordered with 10 mEq K daily x 5 days and Senna S daily prn x 14 days ordered. 03/20/24 called SNF to check on patient. RN reported leg swelling is better, no SOB, pulse ox 95-97%on room air, weight stable for days ~ 214# and patient had BM 3 days prior. At this time asked RN to fax us lab results from 03/13/24 and to obtain new CBC & BMP and CXR to reflect completion of lasix and fax to our office. No lab results were received however CXR scanned into our system from [facility] at 10:36 PM that day and not brought to any provider's attention showed bilateral pleural effusions. 03/23/23 RN from patient's assisted living called reporting weight gain and pitting edema. Was discharged from [facility] to his AL. Patient returns to the office today for post-discharge follow up. INTERVAL EVENTS / PERTINENT ROS: On encounter, pt accompanied by his son, William, and reports the following: Fever/chills: denies Dizziness/lightheadedness/syncope: occasional when changing positions Chest pain/palpitations: denies Incisional pain: sore and achy on left side occasionally 2/10, maybe a little bit from the vest Any drainage from site: denies SOB/cough: SOB with exertion, very little nonproductive cough Activity/Ambulation/Stairs: tolerating Appetite: improving N/V/D/C/abdominal pain: no n/v/abdominal pain, having 2-3 x per week Leg swelling: yes, up 17# from pre surgical weight Sleep: didn't sleep well at [facility], improved since being back at [place] in recliner Energy: improving Denies hematuria or BRB per rectum on eliquis; Reports tarry stool and constipation on iron tid Weights: up 17# from baseline over past week BP & HR log reviewed: SBP 90-140 mmHg, no HR log to review Paresthesias: none Subjective: Current Outpatient Medications Medication Sig senna-docusate (SENNA-S) 8.6-50 mg per tablet Take 2 tablets by mouth once daily as needed for constipation for up to 14 days. furosemide (LASIX) 20 mg tablet Take 1 tablet by mouth two times a day for 5 days. acetaminophen (TYLENOL) 500 mg tablet Take 2 tablets by mouth four times daily. aspirin, enteric coated (ASPIRIN, ENTERIC COATED) 81 mg EC tablet Take 2 tablets by mouth once daily for 30 days, THEN 1 tablet once daily. tamsulosin (FLOMAX) 0.4 mg Take 1 capsule by mouth two times a day. apixaban (ELIQUIS) 5 mg tab(s) Take 1 tablet by mouth two times a day. ascorbic acid, vitamin C, (VITAMIN C) 500 mg tablet Take 1 tablet by mouth once daily. folic acid 1 mg tablet Take 1 tablet by mouth once daily. lidocaine (SALONPAS) 4 % patch Apply 1 Patch as directed once daily. Cut patch in half lengthwise and place one half on each side of sternal incision magnesium oxide (MAG-OX) 400 mg (241.3 mg magnesium) tablet Take 1 tablet by mouth once daily. metoprolol tartrate, short acting, (LOPRESSOR) 25 mg tablet Take 0.5 tablets by mouth every 8 hours. Hold for HR <60 and/or SBP <100 polyethylene glycol 3350 17 gram packet Take 1 Packet by mouth once daily. Dissolve dose in 4 - 8 ounces of liquid and take as directed. fluticasone (FLONASE) 50 mcg/actuation nasal spray Use 2 Sprays in each nostril once daily as needed. senna-docusate (SENNA WITH DOCUSATE SODIUM) 8.6-50 mg per tablet Take 1 tablet by mouth daily at bedtime. cholecalciferol (VITAMIN D3) 1,000 unit tab tablet Take by mouth once daily. donepezil (ARICEPT) 10 mg tablet Take 1 tablet by mouth daily with breakfast. atorvastatin (LIPITOR) 40 mg tablet Take 1 tablet by mouth once daily. vit C/E/Zn/coppr/lutein/zeaxan (PRESERVISION AREDS-2 ORAL) Take 1 capsule by mouth two times a day. latanoprost (XALATAN) 0.005 % ophthalmic solution Use 1 Drop in both eyes daily at bedtime. ferrous sulfate 325 mg (65 mg iron) tablet Take 325 mg by mouth three times a day. cyanocobalamin (VITAMIN B-12) 1,000 mcg tab Take 1 tablet by mouth once daily. pantoprazole DR (PROTONIX) 40 mg tablet Take 40 mg by mouth once daily. No current facility-administered medications for this visit. Patient has no known allergies. PAST MEDICAL HISTORY Diagnosis Date Alzheimer's dementia without behavioral disturbance, psychotic disturbance, mood disturbance, or anxiety, unspecified dementia severity, unspecified timing of dementia onset (HCC) Ascending aorta dilatation (HCC) borderline Benign prostatic hyperplasia with urinary frequency Bilateral carpal tunnel syndrome s/p release on right Bilateral inguinal hernia s/p mesh BPH (benign prostatic hyperplasia) CAD (coronary artery disease) 12/21/2023 abnormal stress test. moderate ischemia in RCA DDD (degenerative disc disease), lumbar resolved after discectomy Depression Deviated septum s/p septoplasty Hyperlipidemia Iron deficiency anemia Irritable bowel syndrome 08/1997 improved Lipoma of neck left posterior neck CHRISTIANO (obstructive sleep apnea) [address] 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 Iqbal on 02/28/24 Scalp psoriasis Unspecified essential hypertension Upper GI bleed 05/2023 Vitamin D insufficiency PAST SURGICAL HISTORY Procedure Laterality Date BACK SURGERY HX CABG (3) VEIN GRAFTS & ARTERIAL GRAFT(S) 02/28/2024 CABG x 3 (Scales-LAD, SVG- PDA, SVG- OM1) with Dr. Iqbal on 02/28/24 COLON SURGERY HX COLONOSCOPY FLX DX W/COLLJ SPEC WHEN PFRMD , 11/19, 01/24, 01/29 COLONOSCOPY FLX DX W/COLLJ SPEC WHEN PFRMD 03/22/2015 Colonoscopy-repeat 5 years COLONOSCOPY FLX DX W/COLLJ SPEC WHEN PFRMD 11/23/2020 COLONOSCOPY GEN ANES 04/12/2020 Repeat in 1 year COLONOSCOPY GEN ANES 04/26/2020 3 polyps removed. 40 mm, 5 mm, 5mm. repeat in 6 months. DISKECTOMY, LUMBAR, SINGLE SP 2006 HERNIA REPAIR HX mesh INGUINAL HERNIA REPAIR HX 07/19/2010 bilateral inguinal hernia repair with mesh NEUROPLASTY &/TRANSPOS MEDIAN NRV CARPAL TUNNE Right 03/26/2015 Carpal tunnel decomp right PAST SURGICAL HISTORY OF Left 04/10/2019 arthroscopic knee for torn meniscus RHINP PRIM LAT&ALAR CRTLGS&/ELVTN NASAL TI 2009 Rhinoplasty SKIN BIOPSY HX FAMILY HISTORY Problem Relation Age of Onset Heart Mother CHF Hypertension Mother Stroke Father Hypertension Father Social History Tobacco Use Smoking status: Never Smokeless tobacco: Never Vaping Use Vaping status: Never Used Substance Use Topics Alcohol use: No Drug use: No ROS - see HPI Objective: Physical Examination: Vitals:BP 142/90 Pulse 81 Ht 5' 10.5[patient reports[ (1.79m) Wt 221 lb 12.8 oz (100.6kg) SpO2 98% BMI 31.36 kg/(m^2).2j CXR 03/20/24: Last 2 Encounter Wt Readings: Date: Wt: 02/11/2024 207 lb (93.9 kg) 02/07/2024 204 lb 3.2 oz (92.6 kg) Physical Exam Vitals reviewed. Constitutional: General: He is not in acute distress. Appearance: Normal appearance. He is not ill-appearing, toxic-appearing or diaphoretic. HENT: Mouth/Throat: Mouth: Mucous membranes are moist. Eyes: Extraocular Movements: Extraocular movements intact. Conjunctiva/sclera: Conjunctivae normal. Cardiovascular: Rate and Rhythm: Normal rate and regular rhythm. Pulses: Normal pulses. Heart sounds: Normal heart sounds. No murmur heard. No friction rub. No gallop. Pulmonary: Effort: Pulmonary effort is normal. No respiratory distress. Breath sounds: Normal breath sounds. No stridor. No wheezing, rhonchi or rales. Abdominal: General: Abdomen is flat. There is no distension. Palpations: Abdomen is soft. There is no mass. Tenderness: There is no abdominal tenderness. Musculoskeletal: Right lower leg: Edema present. Left lower leg: Edema present. Comments: BLE tight nonpitting edema BLE doug hose on Skin: General: Skin is warm and dry. Comments: Peeling glue removed from MSI revealing healed MSI without s/sx of infection, + sternal stability, CT sites healed L SVG site with dressing removed revealing shallow (not deep enough to pack) slightly dehisced wound without s/sx of infection, granular wound bed - painted with betadine and covered with bandaid Neurological: General: No focal deficit present. Mental Status: He is alert and oriented to person, place, and time. Psychiatric: Mood and Affect: Mood normal. Behavior: Behavior normal. Assessment and Plan: MV CAD - S/p CABG x 3 (scales-lad, svg-OM1, svg-PDA;evh) with Dr. Iqbal on 02/28/24 - EF 64% preoperatively - Discharged POD #11 (03/10/24) to [facility] then to [facility] on 03/22/24 - Continue medical management with ASA 162 mg daily, and atorvastatin - Metoprolol 12.5mg TID d/t hypotension POD 8 (will stay at this dose for now) - Continue HH Diet - Continue Bowel regimen, see below - Encouraged ambulation and mobilization, IS use (provided IS today) - Post-thorax vest until 03/30/24, maintain sternal precautions of no pushing/pulling/lifting more than 10# until 03/30/24 then add 5-10# every month thereafter - No driving until 03/30/24 - son reports patient no longer drives anyway - Phase II cardiac rehab ordered today to start in 1-2 weeks at [facility] Delayed surgical wound healing - L SVG site with slight dehiscence, not appearing infected, too shallow to pack - AL has been applying triple antibiotic ointment - discontinued - Gave instructions to wash daily with mild soap and water, pat dry, apply betadine bid and leave SO as often as possible Atrial Fibrillation - Rate controlled, originally converted spontaneously but back to atrial fibrillation AM of POD#5 - Metoprolol 12.5 mg tid with hold parameters decreased 03/07 from 25 mg tid due to labile BP - Eliquis started evening of 03/04, CHADs > 2, tolerating without s/sx of bleeding - Heart rate and rhythm regular on exam Anticipated Post-Op Respiratory Insufficiency Trace apical pneumothorax on post pull CXR 03/04, resolved on CXR 03/05 - Saturating well on room air, 98% - Encouraged mobilization, IS, cough, and deep breathing - CXR on 03/20/24 showing bilateral pleural effusions, diuresis as below with repeat CXR next week with results to our office Volume Overload - worse - Admission weight: 92.6 kg, weight on 03/08 prior to discharge was 97.1 kg, current weight 100.6 kg - Completed lasix 20 mg daily x 5 days with 10 mEq daily x 5 days from 03/14/24-03/18/24 - Still with tight nonpitting BLE edema and 17# above pr op weight - Will give lasix 40 mg bid x 5 days then 40 mg daily x 5 days then 20 mg daily thereafter with potassium 20 mEq daily x 10 days then 10 mEq daily thereafter - BMP tomorrow with results to our office - Reviewed daily weights with parameters when to call Post Op Pain - improved Continue ERAS with: -1000mg Tylenol q 6 -400mg Magnesium daily -Lidocaine patches Acute Blood Loss Anemia - Hgb 8.4/26.4 at discharge (8.8/27.8) - Received one unit on POD 2 - Continue to monitor, no labs received from SNF - Ferrous sulfate (decrease to every day from tid, see below), folic acid, and Vit C supplementation - Denies bleeding concerns - CBC tomorrow with results to our office HTN - SBP controlled at Assisted Living facility with most SBP 90-140 mmHg over past 48 horus - Labile BP initially with BB at 25mg TID --> decreased 03/07 to 12.5mg TID - Home regimen includes 40mg of lisinopril, 25mg toprolol XL daily HLD - Continue home atorvastatin Mild-Moderate Dementia ICU Delirium - resolved - Appears orienting at baseline during visit but per AL facility RN, patient more confused than prior to surgery, see our conversation below; likely multifactorial - anesthesia, multiple transitions of care settings - Continue home Aricept Constipation - Patient reports having 2-3 bowel movements per week - Assisted Living RN questions patient's accuracy reporting bowel movements - Will decrease iron to every day from tid - Continue senna S daily PRN and senna S scheduled qhs Called patient's AL nurse, Salome, following OV to review medication changes, wound care, follow upappointment with us, and need for labs & CXR. Salome states concerns he's more confused than prior to surgery, let her know that may take time to resolve vs may be his new baseline. Salome also concerned about his leg swelling and weight gain and acted shocked we were sending him back to AL - re assured her he needs aggressive diuresis and I'm ordering lasix with close follow up. -Continue aspirin 162 mg for 1 month then taper down to 81 mg daily, metoprolol 12.5 mg q8h, atorvastatin 40 mg -Continue ambulation, IS use and RN assistance at Assisted Living -Return in 2 weeks with chest x-ray week prior -Follow-up with Radar Engineering Teacher: Dr. Gill scheduled 08/18/24 - encouraged family to move up sooner for further cardiac care -Cardiac rehab order placed today, to start in 1-2 weeks at [facility] -Follow up with PCP 05/06/24 -Follow up with urology 05/12/24 -Follow up with pulmonology 05/05/24 Electronically signed by Caroline Orlando APRN.CNP on March 24, 2024, 11 AM documented in this encounterAcmc [facility] System02-03-2025 [facility]02-02-2025 Telephone encounter Note* Telephone Encounter - Angi Tubbs RN - 03/23/2024 2:26 PM EST KATELYN Zuniga from patient's assisted living facility calling regarding concerns post cardiothoracic surgery (weight gain and pitting edema). Conferenced to Dr. Iqbal's Answering Service [ ] to speak with provider electronic page makeup system operator for Dr. Iqbal. [facility] Work Phone: 1(643) 364-566602-02-2025 Miscellaneous Notes* Telephone Encounter - Angi Tubbs RN - 03/23/2024 2:26 PM EST KATELYN Zuniga from patient's assisted living facility calling regarding concerns post cardiothoracic surgery (weight gain and pitting edema). Conferenced to Dr. Iqbal's Answering Service [ ] to speak with provider electronic page makeup system operator for Dr. Iqbal. documented in this encounterAcmc Healthcare System01-30-2025 Telephone encounter Note * Telephone Encounter - Caroline Orlando APRN.TADEO - 03/20/2024 2:44 PM EST Images from the original note were not included. [facility] Phone Note Surgeon: Dr. Iqbal Surgery: CABG x 3 (Scales-LAD, SVG- PDA, SVG- OM1) Date of the surgery: 02/28/24 Date of the call: 03/20/24 Patient has past medical history of mild-moderate dementia, HTN, was being worked up for hip surgery, had + stress test, cathed->MVCAD. EF 62%. Recently moved into assisted living community. He underwent above surgery which he tolerated well and was extubated on time. Post op course complicated by delirium and atrial fibrillation for which he was started on eliquis. He discharged to [facility] POD#11 (03/10/24). With instructions to follow up with [facility] in 2 weeks. Patient/son/SNF was called by [facility] HIDE HOUSE SUPERVISOR for 3 day post dc phone call on 03/14/24 (see that telephone encounter for details). At that time ordered lasix 20 mg bid x 5 days with 10 mEq K daily x 5 days and added two tabs Senna S every day prn x 14 days for reports of constipation, and sounding slightly SOB on the phone per son. Nursing reported worsening BLE edema, weight 03/13/24 supposedly 209.1# and weight 214# on 03/14/24 (pre op weight 203.7#, discharge weight 213.62#). Called patient's son, Indy, this afternoon ([phone]) with no answer so left VM. Called patient's cell phone ([phone]) with no answer nor able to leave VM. Called [facility] ([phone]) and talked to nurse, Mary Anne, who states patient has been wearing his post thoracic vest and his incision is looking great. She reports patient completed lasix yesterday and weight has been stable ~215# for the past several days. She states patient's leg swelling is better, and that he doesn't appear to be SOB. States his pulse ox has been 95- 97% on room air. Mary Anne states labs were done 03/13/24- asked these please be faxed to our office, as well as new labs need drawn (BMP & CBC) as wellas CXR faxed to our office to reflect post-lasix and was ordered during phone call 03/14/24. In regards to constipation, Mary Anne checked with the aides who state patient toilets himself. Mary Anne asked patientabout constipation and patient stated last bm was 2-3 days ago. Asked Mary Anne if their facility has standing bowel regimen orders to which call was disconnected. Upon calling SNF back, no answer. Required follow up: [facility] office visit 03/24/24 SIGNATURE: Caroline Orlando APRN.CNP DATE of SERVICE: 03/20/2024 TIME of SERVICE: 2:44 PM [facility] Work Phone: 1(932) 621-774301-30-2025 Miscellaneous Notes* Telephone Encounter - Caroline Orlando APRN.CNP - 03/20/2024 2:44 PM EST Images from the original note were not included. [facility] Phone Note Surgeon: Dr. Ibqal Surgery: CABG x 3 (Scales-LAD, SVG- PDA, SVG- OM1) Date of the surgery: 02/28/24 Date of the call: 03/20/24 Patient has past medical history of mild-moderate dementia, HTN, was being worked up for hip surgery, had + stress test, cathed->MVCAD. EF 62%. Recently moved into assisted living community. He underwent above surgery which he tolerated well and was extubated on time. Post op course complicated by delirium and atrial fibrillation for which he was started on eliquis. He discharged to [facility] POD#11 (03/10/24). With instructions to follow up with [facility] in 2 weeks. Patient/son/SNF was called by [facility] HIDE HOUSE SUPERVISOR for 3 day post dc phone call on 03/14/24 (see that telephone encounter for details). At that time ordered lasix 20 mg bid x 5 days with 10 mEq K daily x 5 days and added two tabs Senna S every day prn x 14 days for reports of constipation, and sounding slightly SOB on the phone per son. Nursing reported worsening BLE edema, weight 03/13/24 supposedly 209.1# and weight 214# on 03/14/24 (pre op weight 203.7#, discharge weight 213.62#). Called patient's son, Indy, this afternoon ([phone]) with no answer so left VM. Called patient's cell phone ([phone]) with no answer nor able to leave . Called [facility] ([phone]) and talked to nurse, Mary Anne, who states patient has been wearing his post thoracic vest and his incision is looking great. She reports patient completed lasix yesterday and weight has been stable ~215# for the past several days. She states patient's leg swelling is better, and that he doesn't appear to be SOB. States his pulse ox has been 95- 97% on room air. Mary Anne states labs were done 03/13/24- asked these please be faxed to our office, as well as new labs need drawn (BMP & CBC) as wellas CXR faxed to our office to reflect post-lasix and was ordered during phone call 03/14/24. In regards to constipation, Mary Anne checked with the aides who state patient toilets himself. Mary Anne asked patientabout constipation and patient stated last bm was 2-3 days ago. Asked Mary Anne if their facility has standing bowel regimen orders to which call was disconnected. Upon calling SNF back, no answer. Required follow up: [facility] office visit 03/24/24 SIGNATURE: Caroline Orlando APRN.CNP DATE of SERVICE: 03/20/2024 TIME of SERVICE: 2:44 PM documented in this encounterAcmc Healthcare System01-24-2025 Telephone encounter Note * Telephone Encounter - Sole Burrows APRN.CNP - 03/14/2024 12:03 PM EST Images from the original note were not included. [facility] Phone Note Surgeon: Farida Surgery: CABG x 3 (Scales-LAD, SVG- PDA, SVG- OM1) with Dr. Iqbal on 02/28/24 Date of the surgery: 02/28/24, Dcd to [facility] ([facility]) on 03/10/24 Origin of the call: Post op phone call Date of the call: 03/14/24 Diagnosis: MVCAD Reason for call: symptoms: close DC follow up. See below. Contact information: [phone] (INDY- son's cell), (Homero's Cell). [facility] [phone] BRIEF PMHX: mild-moderate dementia, HTN, was being worked up for hip surgery, had + stress test, cathed->MVCAD. EF 62%. Recently moved into assisted living community. BRIEF DC SUMMARY REVIEW: Patient underwent CABG x 3 (Scales-LAD, SVG- PDA, SVG- OM1) with Dr. Graham 02/28/24. Surgery went as planned. Patient was transferred to CVICU in stable condition and was extubated under early parameters. Overnight on POD 0, the patient was confused and intermittently combative. He received haldol and was able to rest. In the evening of POD 1, the patient exhibited signsof sundowning, but was redirectable and intermittently got rest with repositioning and pain control. Early that AM, the patient did require haldol for agitation. Did go into atrial fibrillation overnight POD#3-POD#4, has been intermittent. POD#4 PT eval'd and rec SNF. POD#5 pacing wires removed, started eliquis that evening and transferred to stepdown unit. POD#7 showered with assistance. Patientcontinued to recover. Confusing continued to improve gradually By POD 11, patient was medically ready for transfer to SNF. Plan for phone update in a 3-5 days and an outpt follow up in 2 weeks. will need repeat labs and CXR prior to 2 wk visit Pre Op Weight: 92.6 kg (203.7 lbs) DC weight:97.1 kg (213.62 lbs) Diuretics DC plan: summary states plan to DC with diuresis, but appears none was ordered Diabetic DC plan: NA HTN DC plan:SBP improved to 100-120 mmH. Labile BP initially with BB at 25mg TID --> decreased 03/07 to 12.5mg TID upon dc - previous home regimen includes 40mg of lisinopril, 25mg toprolol XL daily ASA/DAPT/OAC plan:ASA 162 mg LABWORK FOLLOW UP: BMP and CBC prior to 2 week visit IMAGING FOLLOW UP: CXR prior to 2 week visit Post discharge phone call placed to patient. Patient did not answer phone, but I spoke with his sonand also his nurse, Ray, at the facility How have your heart rates and blood pressures been? 134/82, HR 66 Fevers or chills?no Any questions about medications? Holding any medications? Not having to hold any bp/hr meds per nursing and son Are you missing any doses of medications? no How is your pain? Son reports he has not complained of sternal pain, but does c/o constipation fromthe iron and needed MOM recently, with good relief. Only on Senna S. prn Any shortness of breath or cough or trouble breathing? No per nursing. Son states he seemed a little sob on phone after PT the other day. Any palpations/ lightheadedness or dizziness? no Have you been up walking? Per nursing, yes pt is up and about walking around facility frequently throughout the day. Still confused at times What have your weights been, still losing weight? Any swelling? Son and nursing state that his leg swelling has worsened bilaterally. Yesterday weights 209.1 lbs, todays weight 214 lbs. Not on any diuretics at present Are you washing your incisions daily? yes Any incisional concerns? no Any other questions or concerns? Spoke with son, Indy, as well, who just feels dad has a bit of withdrawal/creeping depression. He notes increased swelling in his dads feet. He could barely get his shoes on yesterday. Decreased appetite. Seems that the confusion has improved. Son reports he is taking meds as ordered. Not missing any doses. Son noticed pt to be more noticeably sob with activity/PT. How call resolved: will fax orders ([phone]) for lasix 20 mg oral bid starting today x 5 days,with potassium replacement, senna S daily. CBC and BMP to be drawn 03/17/24 and faxed to our facility Required follow up: 03/24/24 with Caroline Orlando HIDE HOUSE SUPERVISOR Reiterated to sonIndy, the necessity to please call our office with any future questions or concerns, sob, chest pain, palpitations, weight gain, worsening edema. He verbalized understanding. SIGNATURE: Sole Burrows APRN.CNP DATE of SERVICE: 03/14/2024 TIME of SERVICE: 12:04 PM [facility]01-24-2025 Miscellaneous Notes* Telephone Encounter - Sole BurrowsLUTHER.POLISHING MACHINE TENDER - 03/14/2024 12:03 PM EST Images from the original note were not included. [facility] Phone Note Surgeon: Farida Surgery: CABG x 3 (Scales-LAD, SVG- PDA, SVG- OM1) with Dr. Iqbal on 02/28/24 Date of the surgery: 02/28/24, Dcd to SNF ([facility]) on 03/10/24 Origin of the call: Post op phone call Date of the call: 03/14/24 Diagnosis: MVCAD Reason for call: symptoms: close DC follow up. See below. Contact information: [phone] (INDY- son's cell), (Homero's Cell). [facility] [phone] BRIEF PMHX: mild-moderate dementia, HTN, was being worked up for hip surgery, had + stress test, cathed->MVCAD. EF 62%. Recently moved into assisted living community. BRIEF DC SUMMARY REVIEW: Patient underwent CABG x 3 (Scales-LAD, SVG- PDA, SVG- OM1) with Dr. Graham 02/28/24. Surgery went as planned. Patient was transferred to CVICU in stable condition and was extubated under early parameters. Overnight on POD 0, the patient was confused and intermittently combative. He received haldol and was able to rest. In the evening of POD 1, the patient exhibited signsof sundowning, but was redirectable and intermittently got rest with repositioning and pain control. Early that AM, the patient did require haldol for agitation. Did go into atrial fibrillation overnight POD#3-POD#4, has been intermittent. POD#4 PT eval'd and rec SNF. POD#5 pacing wires removed, started eliquis that evening and transferred to stepdown unit. POD#7 showered with assistance. Patientcontinued to recover. Confusing continued to improve gradually By POD 11, patient was medically ready for transfer to SNF. Plan for phone update in a 3-5 days and an outpt follow up in 2 weeks. will need repeat labs and CXR prior to 2 wk visit Pre Op Weight: 92.6 kg (203.7 lbs) DC weight:97.1 kg (213.62 lbs) Diuretics DC plan: summary states plan to DC with diuresis, but appears none was ordered Diabetic DC plan: NA HTN DC plan:SBP improved to 100-120 mmH. Labile BP initially with BB at 25mg TID --> decreased 03/07 to 12.5mg TID upon dc - previous home regimen includes 40mg of lisinopril, 25mg toprolol XL daily ASA/DAPT/OAC plan:ASA 162 mg LABWORK FOLLOW UP: BMP and CBC prior to 2 week visit IMAGING FOLLOW UP: CXR prior to 2 week visit Post discharge phone call placed to patient. Patient did not answer phone, but I spoke with his sonand also his nurse, Ray, at the facility How have your heart rates and blood pressures been? 134/82, HR 66 Fevers or chills?no Any questions about medications? Holding any medications? Not having to hold any bp/hr meds per nursing and son Are you missing any doses of medications? no How is your pain? Son reports he has not complained of sternal pain, but does c/o constipation fromthe iron and needed MOM recently, with good relief. Only on Senna S. prn Any shortness of breath or cough or trouble breathing? No per nursing. Son states he seemed a little sob on phone after PT the other day. Any palpations/ lightheadedness or dizziness? no Have you been up walking? Per nursing, yes pt is up and about walking around facility frequently throughout the day. Still confused at times What have your weights been, still losing weight? Any swelling? Son and nursing state that his leg swelling has worsened bilaterally. Yesterday weights 209.1 lbs, todays weight 214 lbs. Not on any diuretics at present Are you washing your incisions daily? yes Any incisional concerns? no Any other questions or concerns? Spoke with son, Indy, as well, who just feels dad has a bit of withdrawal/creeping depression. He notes increased swelling in his dads feet. He could barely get his shoes on yesterday. Decreased appetite. Seems that the confusion has improved. Son reports he is taking meds as ordered. Not missing any doses. Son noticed pt to be more noticeably sob with activity/PT. How call resolved: will fax orders ([phone]) for lasix 20 mg oral bid starting today x 5 days,with potassium replacement, senna S daily. CBC and BMP to be drawn 03/17/24 and faxed to our facility Required follow up: 03/24/24 with Caroline Orlando NP Reiterated to sonIndy, the necessity to please call our office with any future questions or concerns, sob, chest pain, palpitations, weight gain, worsening edema. He verbalized understanding. SIGNATURE: Sole Burrows APRN.CNP DATE of SERVICE: 03/14/2024 TIME of SERVICE: 12:04 PM documented in this encounterA[facility]01[facility]20-2025 [facility]01-20-2025 [facility]01-19-2025 [facility]01-18-2025 [facility]01-17-2025 [facility]01-16-2025 [facility]01-15-2025 Note [facility]01-14-2025 [facility] 03-04-2024 [facility]01-14-2025 [facility]01-13-2025 [facility]01-13-2025 [facility]01-12-2025 [facility]01-12-2025 [facility]01-11-2025 [facility]01-11-2025 Note [facility]01-10-2025 [facility] 02-29-2024 Telephone encounter Note* Telephone Encounter - Maren Logan LPN - 02/29/2024 4:46 PM EST Please disregard request we are not agency of choice. Thank you [facility] Work Phone: [phone] Miscellaneous Notes* Telephone Encounter - Maren Logan LPN - 02/29/2024 4:46 PM EST Please disregard request we are not agency of choice. Thank you * Telephone Encounter - Maren Logan LPN - 02/29/2024 3:11 PM EST Lenin Chaudhary MD Please advise if you are agreeable to signing and following for HHC services? Our Clinicians will be sending the Plan of Care to you for review and approval. They will reach out for any appropriate orders required to provide home care services for the patient. We are not able to initiate HHC services without a following provider. Home care clinicians may also obtain orders from [facility] Virtualist Providers Thank you and we would be happy to answer any questions. Maren Logan LPN 02/29/2024 3:11 PM documented in this encounterAcmc Healthcare System01-10-2025 Telephone encounter Note * Telephone Encounter - Maren Logan LPN - 02/29/2024 3:11 PM EST Lenin Chaudhary MD Please advise if you are agreeable to signing and following for HHC services? Our Clinicians will be sending the Plan of Care to you for review and approval. They will reach out for any appropriate orders required to provide home care services for the patient. We are not able to initiate HHC services without a following provider. Home care clinicians may also obtain orders from [facility] Thank you and we would be happy to answer any questions. Maren Logan LPN 02/29/2024 3:11 PM [facility]01-10-2025 [facility]01[facility]10-20[facility]01-09-2025 Note [facility]01-09-2025 [facility] 02-27-2024 [facility]01-02-2025 Telephone encounter Note* Telephone Encounter - Diane Purvis APRN.CNP - 02/21/2024 10:59 AM EST No further orders at this time. [facility]01-02-2025 Miscellaneous Notes* Telephone Encounter - Diane Purvis APRN.CNP - 02/21/2024 10:59 AM EST No further orders at this time. * Telephone Encounter - Sabiha Owen, KATELYN - 02/21/2024 10:46 AM EST Called and spoke with Salome jamison at [facility]. She states that pt is doing okay. He was c/o another headache this morning and she gave him his Extra Strength Tylenol. She states pt complains off andon of congestion but they do not notice any. The nurses are starting to wonder if maybe this is anxiety due to pt's upcoming open heart surgery. Salome states he appears to be healthy at this time. * Telephone Encounter - Diane Purvis APRN.CNP - 02/21/2024 8:42 AM EST Can we find out how patient is feeling? * Telephone Encounter - Mir Begum LPN - 02/19/2024 9:28 AM EST Nadia nurse from [facility] calling stating pt was complaining yesterday of all overpain and stomach was rumbling. Bowel movements were normal. She gave pt Tylenol. Blood pressure ocw696/60. States today pt is complaining of a headache and states he has had it since yesterday. (pt did not mention this yesterday). Bp is elevated today at 172/78. Temp is 99.0 She did do a rapid COVI D test which was negative. She has given pt Tylenol. Pt is scheduled for open heart surgery 02/25/24.Questions if provider has any recommendations. Please call back [phone] option #4 for a nurse.Mir Begum LPN documented in this encounterAcmc Healthcare System01-02-2025 Telephone encounter Note * Telephone Encounter - Sabiha Owen RN - 02/21/2024 10:46 AM EST Called and spoke with Salome nurse at [facility]. She states that pt is doing okay. He was c/o another headache this morning and she gave him his Extra Strength Tylenol. She states pt complains off andon of congestion but they do not notice any. The nurses are starting to wonder if maybe this is anxiety due to pt's upcoming open heart surgery. Salome states he appears to be healthy at this time. [facility]01-02-2025 Telephone encounter Note* Telephone Encounter - Diane Purvis APRN.TADEO - 02/21/2024 8:42 AM EST Can we find out how patient is feeling? [facility]12-31-2024 Telephone encounter Note* Telephone Encounter - Mir Begum LPN - 02/19/2024 9:28 AM EST Nadia nurse from [facility] calling stating pt was complaining yesterday of all overpain and stomach was rumbling. Bowel movements were normal. She gave pt Tylenol. Blood pressure jts452/60. States today pt is complaining of a headache and states he has had it since yesterday. (pt did not mention this yesterday). Bp is elevated today at 172/78. Temp is 99.0 She did do a rapid COVI D test which was negative. She has given pt Tylenol. Pt is scheduled for open heart surgery 02/25/24.Questions if provider has any recommendations. Please call back [phone] option #4 for a nurse.Mir Begum LPN [facility]12-30-2024 NoteHNO ID: [id number] Author: MOHSEN OROZCO HUC Service: ? Author Type: Pearl Maker Type: Progress Notes Filed: 02/18/2024 14:51 Note Text: [facility]12-[facility] History of Present illness Narrative* Mohsen Orozco HUC - 02/18/2024 2:51 PM EST Sent to Scheduling documented in this encounterAcmc Healthcare System12-30-2024 Telephone encounter Note * Telephone Encounter - Rodolfo Jameson MA - 02/18/2024 11:27 AM EST Spoke with pt's son William [phone] informing him 02/25/24 CABG has been cancelled and reschedule to 02/28/24 arrival time 6am procedure time 8am. 02/25/24 surgery cancelled due to a scheduling conflict for Dr. Iqbal. [facility]12-30-2024 Miscellaneous Notes* Telephone Encounter - Rodolfo Jameson MA - 02/18/2024 11:27 AM EST Spoke with pt's son William [phone] informing him 02/25/24 CABG has been cancelled and reschedule to 02/28/24 arrival time 6am procedure time 8am. 02/25/24 surgery cancelled due to a scheduling conflict for Dr. Iqbal. documented in this encounterAcmc Healthcare System12-24-2024 NoteParkwood [facility]12-24-2024 History of Present illness Narrative* Andrew Clifford APRN.CNP - 02/12/2024 12:42 PM EST Incidental Lung Nodule Enrollment Outreach attempt: 1st Attempt Outreach status: Complete Enrolled in Lung Nodule program: Yes Lung Nodule outreach: Enrolled Lung Nodule Program Location: [place] Order placed. Needs scheduled. Pt is aware. documented in this encounterAcmc Healthcare System12-23-2024 Instructions* Patient Instructions* Kobe Rodriguez APRN.CNP, DNP - 02/11/2024 10:04 AM EST Follow up with Kobe Rodriguez APRN.CNP, DNP in 3 months Continue with Flomax - change to AM and bedtime dosing - once capsule at each time. Avoid bladder irritants - coffee, tea, cola drinks, chocolate, alcohol, artificial sweeteners and cigarettes I discussed treatment options at length including r/b/a of each: To include Medication therapy and the role of further evaluation with UDS, TRUS and cysto if indicated. Discussed the role of pharmacotherapy, including risks, benefits and alternatives: Alpha-darcy therapy [e.g. Tamsulosin] - potential risks of dizziness, asthenia, orthostasis, and retrograde ejaculation. Return to the clinic or seek care at Express[facility]Urgent Care for any worsening signs or symptoms: such as fevers, chills, worsening pain, gross blood in urine or worsening urinary symptoms. For severe symptoms seek care at the closest ER. Plan of care, medicaiton side effects and management reviewed with patient. Healthy Habits: Recommend regular physical activity, nutrition and healthy eating habits. Consume a variety of foods every day focusing on fruits, vegetables and lean meats). Eat foods low in fat, saturated fat and cholesterol. Eat a limited amount of salt and sodium. Drink adequate amounts of water and limit sugary drinks. Exercise portion control in meal selection. Establish a mindset of a wellness approach to health. Thank you for allowing me to provide your care today. I look forward to seeing you again and maintaining your health. Kobe Rodriguez APRN.NAHUM PIEDRA documented in this encounterAcmc Healthcare System12-23-2024 NoteParkwood [facility]12-23-2024 History of Present illness Narrative* Elaine Marie MA - 02/11/2024 9:47 AM EST Post Void Residual completed on patient. 9 mL residual volume remaining. Provider notified. Elaine Marie MA * Kobe Rodriguez APRN.NAHUM PIEDRA - 02/11/2024 9:30 AM EST [facility] MALE PATIENT - HISTORY AND PHYSICAL EXAMINATION PATIENT: Homero Mei PCP: Lenin Chaudhary MD CHIEF COMPLAINT: BPH/LUTS follow up HISTORY OF PRESENT ILLNESS: 78 year old year old male with BPH/LUTS follow up Past med Hx: BPH, CTS, CHRISTIANO, HLD, HTN, PAM, VIT D def. Son present today for appt. Seen Dr. Laurent in June 2023 for BPH, UTI and UR. Started on Flomax. Had dizziness. Stopped Flomax. Here for follow up. Unsure how long he did take Flomax or the severity of the dizziness. At last appt we restarted Flomax and son was going to evaluate for any side effects. Denies any sig dizziness. Seen by PCP last week. He increased Flomax to 2 caps at bedtime. No change in symptoms. Not wearing pads. PRESENTING HISTORY: Hematuria: none Obstructive voiding symptoms: weak stream. Irritative voiding symptoms: frequency and nocturia Urinary retention: no Urinary incontinence: no Urinary tract infection: no PSA PSA Screening Latest Ref Rng 0.00 - 2.59 ng/mL 0.00 - 2.59 ng/mL 05/16/2013 1.41 05/20/2014 1.27 06/05/2018 1.77 12/08/2019 0.95 06/30/2020 1.06 Patient Entered Questionnaires: INTERNATIONAL PROSTATE SYMPTOM SCORE (I-PSS) PREVIOUS TOTAL IPSS SCORE: 11 QOL = 4 1. Incomplete emptying 3 2. Frequency 2 3. Intermittency 1 4. Urgency 2 5. Weak stream 1 6. Straining 1 7. Nocturia 2 TOTAL IPSS SCORE 12 QOL = 2 PROMIS Global Health 12/16/2019 12/12/2021 12/17/2023 PROMIS Global Health Scale Physical Health Percentile 78 66 Mental Health Percentile 82 26 Percentiles provide an indication of how the patient's score ranks in relation to the general population. Higher percentile rankings indicate better function/quality of life. 50th percentile is the average of the general population and indicates half of respondents had a worse score. HISTORY: PAST MEDICAL HISTORY Diagnosis Date Alzheimer's dementia without behavioral disturbance, psychotic disturbance, mood disturbance, or anxiety, unspecified dementia severity, unspecified timing of dementia onset (HCC) Ascending aorta dilatation (HCC) borderline Benign prostatic hyperplasia with urinary frequency Bilateral carpal tunnel syndrome s/p release on right Bilateral inguinal hernia s/p mesh BPH (benign prostatic hyperplasia) CAD (coronary artery disease) 12/21/2023 abnormal stress test. moderate ischemia in RCA DDD (degenerative disc disease), lumbar resolved after discectomy Depression Deviated septum s/p septoplasty Hyperlipidemia Iron deficiency anemia Irritable bowel syndrome 08/1997 improved Lipoma of neck left posterior neck CHRISTIANO (obstructive sleep apnea) [address] Bustamante Personal history of colonic polyps Pulmonary hypertension (HCC) Scalp psoriasis Unspecified essential hypertension Upper GI bleed 05/2023 Vitamin D insufficiency PAST SURGICAL HISTORY Procedure Laterality Date BACK SURGERY HX COLON SURGERY HX COLONOSCOPY FLX DX W/COLLJ SPEC WHEN PFRMD , 11/19, 01/24, 01/29 COLONOSCOPY FLX DX W/COLLJ SPEC WHEN PFRMD 03/22/2015 Colonoscopy-repeat 5 years COLONOSCOPY FLX DX W/COLLJ SPEC WHEN PFRMD 11/23/2020 COLONOSCOPY GEN ANES 04/12/2020 Repeat in 1 year COLONOSCOPY GEN ANES 04/26/2020 3 polyps removed. 40 mm, 5 mm, 5mm. repeat in 6 months. DISKECTOMY, LUMBAR, SINGLE SP 2006 HERNIA REPAIR HX INGUINAL HERNIA REPAIR HX 07/19/2010 bilateral inguinal hernia repair with mesh NEUROPLASTY &/TRANSPOS MEDIAN NRV CARPAL TUNNE Right 03/26/2015 Carpal tunnel decomp right PAST SURGICAL HISTORY OF Left 04/10/2019 arthroscopic knee for torn meniscus RHINP PRIM LAT&ALAR CRTLGS&/ELVTN NASAL TI 2009 Rhinoplasty SKIN BIOPSY HX Social History Tobacco Use Smoking status: Never Smokeless tobacco: Never Vaping Use Vaping status: Never Used Substance Use Topics Alcohol use: No Drug use: No FAMILY HISTORY Problem Relation Age of Onset Heart Mother CHF Hypertension Mother Stroke Father Hypertension Father MEDICATIONS: Current Outpatient Medications Medication Sig tamsulosin (FLOMAX) 0.4 mg Take 1 capsule by mouth two times a day. (Take one capsule in the morning and one at bedtime) metoprolol tartrate, short acting, (LOPRESSOR) 25 mg tablet Take 0.5 tablets by mouth one time onlyfor 1 dose. Take morning of surgery. mupirocin (BACTROBAN) 2 % ointment Apply to affected area two times a day for 5 days. Please apply small amount to each nostril twice daily using Q-tip, starting 5 days prior to surgery and morning of surgery. Chlorhexidine Gluconate (PERIDEX) 0.12 % solution Use 15 mL as instructed two times a day for 5 days. Rinse around mouth for 30 seconds then expectorate twice daily starting 5 days prior to surgery and morning of surgery. donepezil (ARICEPT) 10 mg tablet Take 1 tablet by mouth daily with breakfast. aspirin, enteric coated (ASPIRIN, ENTERIC COATED) 81 mg EC tablet Take 1 tablet by mouth once daily. atorvastatin (LIPITOR) 40 mg tablet Take 1 tablet by mouth once daily. metoprolol succinate ER (TOPROL XL) 25 mg 24 hr tablet Take 1 tablet by mouth once daily. Cholecalciferol, Vitamin D3, 25 mcg (1,000 unit) cap Take 1 capsule by mouth once daily. vit C/E/Zn/coppr/lutein/zeaxan (PRESERVISION AREDS-2 ORAL) Take by mouth. latanoprost (XALATAN) 0.005 % ophthalmic solution 1 Drop daily at bedtime. acetaminophen (TYLENOL EXTRA STRENGTH) 500 mg tablet Take 500 mg by mouth every 8 hours as needed. ferrous sulfate 325 mg (65 mg iron) tablet Take 325 mg by mouth three times a day. senna-docusate (SENNA-S) 8.6-50 mg per tablet Take 1 tablet by mouth once daily as needed for constipation. docusate sodium (COLACE) 100 mg capsule Take 1 capsule by mouth two times a day as needed for constipation. lisinopril (ZESTRIL) 40 mg tablet Take 1 tablet by mouth once daily. cyanocobalamin (VITAMIN B-12) 1,000 mcg tab Take 1 tablet by mouth once daily. pantoprazole DR (PROTONIX) 40 mg tablet Take 40 mg by mouth two times a day. No current facility-administered medications for this visit. LABS: Latest Ref Rng 02/11/2024 GLUCOSE UA (POCT) Negative mg/dL Negative BILIRUBIN UA (POCT) Negative Negative KETONE UA (POCT) Negative mg/dL Negative SPECIFIC GRAVITY UA (POCT) 1.005 - 1.030 >=1.030 HEMOGLOBIN/BLOOD UA (POCT) Negative Negative PH UA (POCT) 4.5 - 8.0 5.5 PROTEIN UA (POCT) Negative mg/dL 30 ! UROBILINOGEN UA (POCT) Normal E.U./dL 0.2 NITRITE UA (POCT) Negative Negative LEUKOCYTES UA (POCT) Negative Negative COLOR UA (POCT) Yellow CLARITY UA (POCT) Clear Legend: ! Abnormal Latest Ref Rng 11/05/2023 GLUCOSE UA (POCT) Negative mg/dL Negative BILIRUBIN UA (POCT) Negative Negative KETONE UA (POCT) Negative mg/dL Trace SPECIFIC GRAVITY UA (POCT) 1.005 - 1.030 1.020 HEMOGLOBIN/BLOOD UA (POCT) Negative Negative PH UA (POCT) 4.5 - 8.0 6.0 PROTEIN UA (POCT) Negative mg/dL Negative UROBILINOGEN UA (POCT) Normal E.U./dL 0.2 NITRITE UA (POCT) Negative Negative LEUKOCYTES UA (POCT) Negative Negative COLOR UA (POCT) Yellow CLARITY UA (POCT) Clear Creatinine Creatinine Date Value Ref Range Status 02/07/2024 1.14 0.73 - 1.22 mg/dL Final 01/14/2024 0.97 0.73 - 1.22 mg/dL Final 12/07/2023 1.06 0.73 - 1.22 mg/dL Final 07/17/2023 1.55 (H) 0.73 - 1.22 mg/dL Final PSA PSA (ng/mL) Date Value 06/05/2018 1.77 05/20/2014 1.27 05/16/2013 1.41 PSA Screening (ng/mL) Date Value 06/30/2020 1.06 12/08/2019 0.95 OFFICE DATA: POST-VOID RESIDUAL BLADDER VOLUME: YES, 9 cc IMAGING: No results found. Review of Systems: PAIN ASSESSMENT: CURRENTLY HAVING NO PAIN GENERAL: No weight loss, malaise or fevers GI: No nausea, vomiting MUSCULOSKELETAL: Negative for generalized joint pain SKIN: Negative for rash HEMATOLOGY/LYMPHOLOGY: Negative for swollen nodes All other systems reviewed and noncontributory PHYSICAL EXAMINATION: VITALS: BP 142/90 Pulse 67 Resp 16 Wt 93.9 kg (207 lb) BMI 29.28 kg/m GENERAL: alert, no distress, normal affect RESPIRATORY: normal effort EXTREMITIES: normal SKIN: normal NEUROLOGIC: normal ASSESSMENT and PLAN 1. Benign prostatic hyperplasia with urinary frequency - ICD9: 600.01, 788.41, ICD10: N40.1, R35.0 (primary diagnosis) 78y/o male with dementia and BPH. Here for follow up appointment, NTF and frequency noted. Tolerating the Flomax. No dizziness. Scheduled for Open Heart Surgery. Did not notice any change in symptomswith bedtime dosing at 2 caps. Recommend to change to bid dosing. Would consider finasteride or setup for Cysto TRUS. Son was agreeable to plan. Resides in assisted living. PVR = 9 ml UA = prot, otherwise neg. I discussed treatment options at length including r/b/a of each. I also discussed the role of further evaluation with UDS, TRUS and cysto if indicated. Plan: Continue with Flomax - adjusted to bid dosing (AM and bedtime) Avoid bladder irritants - coffee, tea, cola drinks, chocolate, alcohol, artificial sweeteners and cigarettes follow up in 3 months - BLADDER SCAN - UA DIP back office 2. Alzheimer's dementia without behavioral disturbance, psychotic disturbance, mood disturbance, oranxiety, unspecified dementia severity, unspecified timing of dementia onset (HCC) - ICD9: 331.0, 294.10, ICD10: G30.9, F02.80 Cont follow up with Lenin Chaudhary MD Stable. His MCI complicates the picture of his urinary symptoms. 3. Benign prostatic hyperplasia with nocturia - ICD9: 600.01, 788.43, ICD10: N40.1, R35.1 Plan as above. - UA DIP, URINE (POC) - TAMSULOSIN 0.4 MG CAPSULE - POST VOID RESIDUAL This note was copied from previous note and exam dated 11/05/23. Author is Kobe Rodriguez APRN.NAHUM PIEDRA note reviewed and changes have been made or updates noted in the copy & paste portion of an encounter. Kobe Rodriguez DNP, TADEO Department of Urology [facility] documented in this encounterAcmc Healthcare System12-23-2024 NotePark[facility]12-19-2024 Telephone encounter Note* Telephone Encounter - Caroline Orlando APRN.CNP - 02/07/2024 4:35 PM EST Returned call to pharmacistMontez, who states their mupirocin and peridex come in larger sizes which I approved the dispensing of. Montez states no changes need to be made on our end. [facility]12-19-2024 Miscellaneous Notes* Telephone Encounter - Caroline Orlando APRN.CNP - 02/07/2024 4:35 PM EST Returned call to Montez burks, who states their mupirocin and peridex come in larger sizes which I approved the dispensing of. Montez states no changes need to be made on our end. * Telephone Encounter - Saranya Heredia LPN - 02/07/2024 4:16 PM EST Montez from [facility] called & left voice message asking to speak with Caroline Orlando Stating she has some questions about the prescriptions sent over for Homero. She can be reached @ [phone]. Saranya Heredia LPN documented in this encounterAcmc Healthcare System12-19-2024 Telephone encounter Note * Telephone Encounter - Saranya Heredia LPN - 02/07/2024 4:16 PM EST Montez from [facility] called & left voice message asking to speak with Caroline Darion Stating she has some questions about the prescriptions sent over for Homero. She can be reached @ [phone]. Saranya Heredia LPN [facility]12-19-2024 Instructions* Patient Instructions* Caroline Orlando APRN.POLISHING MACHINE TENDER - 02/07/2024 3:38 PM EST [facility] Pre-Admission Patient Instruction You are scheduled for surgery (inpatient) located on the 2nd Floor on: 02/24/23 (your surgery date is subject to change should there be emergencies prior to your scheduled OR time). Come in the Front Doors / Main Entrance of the hospital. No need to stop at front entrance registration. Please check in to the [facility] (2nd Floor) at: 5:15 AM Nothing by mouth after midnight: Do not eat or drink anything, including water and coffee, after 12AM on the morning of your surgery. This is important because if you do, your surgery may have to becancelled. Eat a light supper the evening before surgery or follow specific doctor's instructions. Oral hygiene and a shower or bath is required the evening before or the morning of surgery. Use theprescribed mouth water and Hibiclens body wash supplied to you along with the instruction. Do not chew gum/mints, or use oral spray the morning of surgery. Notify your doctor if you develop a cold, sore throat, fever or other changes in your physical condition. No alcohol 24 hours before or after surgery and refrain from smoking the morning of surgery and immediately following surgery. Leave valuables such as rings, watches and money at home. Remove all make-up and nail croatian beforeadmission. We need to check your circulation. Remove jewelry from all piercings, tongue included, as no metal can go into surgery. Wear loose, comfortable clothing that will accommodate bandages. You will be asked to remove glasses or contacts, and/or your denture prior to surgery. Please bringa case. Your belongings will be kept in an assigned locker until we know your new room after procedure. Please bring your CPAP or BIPAP or any necessary medical equipments, we will keep them in an assigned locker until you are assigned a post-op room. Your length of stay will be determined by your surgeon/surgery team, the anesthesiologist as well as your post of progress. On the morning of surgery, your point of contact will be instructed on communication regarding surgery updates. Please bring a list of any medication you are taking including dose and the condition for which youare being treated. Medications to stop in preparing surgery: Stop your lisinopril 24 hours prior to surgery, last dose 02/23/24 Infection control and prevention: For nose- Mupirocin ointment: Please get a pea sized amount on a q-tip to apply inside your nose twice daily for five days prior to surgery. 5-7 days total if you are tested positive for MRSA. For mouth- Peridex therapy should be initiated for surgery prophylaxis 3-5 days prior surgery. Recommended use is twice daily oral rinsing for 30 seconds, morning and evening after toothbrushing. Usual dosage is 15ml (marked in cap) of undiluted Peridex. Please do not rinse with water or other mouthwashes, brush teeth or eat immediately after using Peridex. Peridex is not intended for ingestion and should be expectorated after rinsing. For body- Hibiclens body wash the night before and morning of surgery. If you are positive of MRSA,you would need shower daily with the Hibiclens body solution for 5 days total (you can get additional amount from any local drug store). Nutritional support/Ensure Drinks Instruction (Please continue eating your usual heart healthy diet): 2 protein shakes daily for 5 days before surgery 2 presurgical clear drinks the night before surgery 1 presurgical clear drink 2 hrs before surgery Medications to take with small amount of fluid in the morning of surgery: Aspirin 81 mg Beta Darcy (Metoprolol tartrate 12.5 mg) Tylenol 1000 mg If you have respiratory inhaler, please give yourself a treatment prior to come in If you are diabetic, please check you blood sugar prior to come in PLEASE COMPLETE THE SHOWER, MOUTH WASH, NASAL OINTMENT, FINISH YOUR DRINK AND PRE-OP MEDICATIONS NO LATER THAN 5:15 AM, THANKS. Please call office at [phone] or Kreditst message me if you have additional questions, Thanks. Caroline Orlando APRN.CNP 02/07/24 documented in this encounterAcmc Healthcare System12-19-2024 History of Present illness Narrative* Caroline Orlando APRN.CNP - 02/07/2024 3:00 PM EST CARDIOTHORACIC SURGERY CONSULT / H&P SERVICE DATE: 02/07/2024 SERVICE TIME: 3:53 PM Subjective PRIMARY SERVICE: Cardiothoracic Surgery CHIEF COMPLAINT: MV CAD HPI:This is a 78 year old man referred to Dr. Iqbal for evaluation of an abnormal stress test andmultivessel coronary artery disease and for consideration of bypass surgery. He is being prepared for hip replacement surgery and a stress test was requested. This was abnormal. The SPECT perfusion study was performed on December 21, 2023 and showed moderate 10 to 20% area of ischemia in the territory of the RCA normal left ventricle function EF 62%. On this basis left heart catheterization was performed showing severe multivessel coronary disease. Patient denies chest heaviness, pressure, burning, exertional dyspnea, edema etc. However, he recently moved into an assisted living situation so has not been as physically active as previously. He does have risk factors for coronary disease including age, male sex, hyperlipidemia, hypertension. He is not diabetic. He is not a smoker. He has no history of previous angina, [place], stroke, renal insufficiency, lower extremity vascular disease. He had an episode of gastrointestinal bleeding from a gastric ulcer in May which, according to his son, was treated endoscopically at [facility]. Current hemoglobin is 13. He has no bleeding issues at this time. No cancer was identified. He was recently diagnosed with mild to moderate dementia. He has moved into an assisted living situation which is working very well for him. He is still driving. Patient is scheduled for CABG with Dr. Iqbal on 02/25/24 and he presents to the office today for PAT. On encounter, pt accompanied by his son and reports since being seen by Dr. Iqbal on 01/22/24, there have been no hospitalizations/ED visits or significant changes to past medical or surgical history. Patient reports the following: Fever/chills: denies Dizziness/lightheadedness/syncope: denies Chest pain/palpitations: denies SOB/cough: none Sore throat/nasal congestion/rhinitis: chronic rhinitis N/V/D/C/abdominal pain: none : none Leg swelling: little Paresthesias: none Hand dominance: left Accept blood products: yes Implantable devices: none Issues with intubation or anesthesia in the past: none PAST MEDICAL HISTORY Diagnosis Date Alzheimer's dementia without behavioral disturbance, psychotic disturbance, mood disturbance, or anxiety, unspecified dementia severity, unspecified timing of dementia onset (HCC) Ascending aorta dilatation (HCC) borderline Benign prostatic hyperplasia with urinary frequency Bilateral carpal tunnel syndrome s/p release on right Bilateral inguinal hernia s/p mesh BPH (benign prostatic hyperplasia) CAD (coronary artery disease) 12/21/2023 abnormal stress test. moderate ischemia in RCA DDD (degenerative disc disease), lumbar resolved after discectomy Depression Deviated septum s/p septoplasty Hyperlipidemia Iron deficiency anemia Irritable bowel syndrome 08/1997 improved Lipoma of neck left posterior neck CHRISTIANO (obstructive sleep apnea) [address] Bustamante Personal history of colonic polyps Pulmonary hypertension (HCC) Scalp psoriasis Unspecified essential hypertension Upper GI bleed 05/2023 Vitamin D insufficiency PAST SURGICAL HISTORY Procedure Laterality Date BACK SURGERY HX COLON SURGERY HX COLONOSCOPY FLX DX W/COLLJ SPEC WHEN PFRMD , 11/19, 01/24, 01/29 COLONOSCOPY FLX DX W/COLLJ SPEC WHEN PFRMD 03/22/2015 Colonoscopy-repeat 5 years COLONOSCOPY FLX DX W/COLLJ SPEC WHEN PFRMD 11/23/2020 COLONOSCOPY GEN ANES 04/12/2020 Repeat in 1 year COLONOSCOPY GEN ANES 04/26/2020 3 polyps removed. 40 mm, 5 mm, 5mm. repeat in 6 months. DISKECTOMY, LUMBAR, SINGLE SP 2006 HERNIA REPAIR HX INGUINAL HERNIA REPAIR HX 07/19/2010 bilateral inguinal hernia repair with mesh NEUROPLASTY &/TRANSPOS MEDIAN NRV CARPAL TUNNE Right 03/26/2015 Carpal tunnel decomp right PAST SURGICAL HISTORY OF Left 04/10/2019 arthroscopic knee for torn meniscus RHINP PRIM LAT&ALAR CRTLGS&/ELVTN NASAL TI 2009 Rhinoplasty SKIN BIOPSY HX FAMILY HISTORY Problem Relation Age of Onset Heart Mother CHF Hypertension Mother Stroke Father Hypertension Father Social History Tobacco Use Smoking status: Never Smokeless tobacco: Never Vaping Use Vaping status: Never Used Substance Use Topics Alcohol use: No Drug use: No (Not in a hospital admission) donepezil (ARICEPT) 10 mg tablet Take 1 tablet by mouth daily with breakfast. tamsulosin (FLOMAX) 0.4 mg Take 2 capsules by mouth daily at bedtime. aspirin, enteric coated (ASPIRIN, ENTERIC COATED) 81 mg EC tablet Take 1 tablet by mouth once daily. atorvastatin (LIPITOR) 40 mg tablet Take 1 tablet by mouth once daily. metoprolol succinate ER (TOPROL XL) 25 mg 24 hr tablet Take 1 tablet by mouth once daily. Cholecalciferol, Vitamin D3, 25 mcg (1,000 unit) cap Take 1 capsule by mouth once daily. vit C/E/Zn/coppr/lutein/zeaxan (PRESERVISION AREDS-2 ORAL) Take by mouth. latanoprost (XALATAN) 0.005 % ophthalmic solution 1 Drop daily at bedtime. acetaminophen (TYLENOL EXTRA STRENGTH) 500 mg tablet Take 500 mg by mouth every 8 hours as needed. ferrous sulfate 325 mg (65 mg iron) tablet Take 325 mg by mouth three times a day. senna-docusate (SENNA-S) 8.6-50 mg per tablet Take 1 tablet by mouth once daily as needed for constipation. docusate sodium (COLACE) 100 mg capsule Take 1 capsule by mouth two times a day as needed for constipation. lisinopril (ZESTRIL) 40 mg tablet Take 1 tablet by mouth once daily. cyanocobalamin (VITAMIN B-12) 1,000 mcg tab Take 1 tablet by mouth once daily. fluticasone (FLONASE) 50 mcg/actuation nasal spray Use 2 Sprays in each nostril as needed. Rinse mouth after use. pantoprazole DR (PROTONIX) 40 mg tablet Take 40 mg by mouth two times a day. ALLERGIES No Known Allergies REVIEW OF SYSTEMS: See HPI Objective PHYSICAL EXAM: BP 150/90 (BP Site: Left Arm, BP Position: Sitting, BP Cuff Size: Large Adult) Pulse (!) 59 Ht 5' 10.5 (1.791 m) Wt 204 lb 3.2 oz (92.6 kg) SpO2 99% BMI 28.89 kg/m Body surface area is 2.15 meters squared. STS for Isolated CABG Perioperative Outcome Estimate % Operative Mortality 0.81% Morbidity & Mortality 4% Stroke0.56% Renal Failure 0.595% Reoperation 1.79% Prolonged Ventilation1.85% Deep Sternal Wound Infection 0.069% Long Hospital Stay (>14 days) 2.32% Short Hospital Stay (<6 days)* 55% *higher values reflect a better outcome Clinical Summary Planned Surgery: Isolated CABG, Elective, First cardiovascular surgery Demographics: 78 year old, male, 91.6kg, 185.4cm, BMI: 26.6 kg/m Lab Values: Creatinine: 1.04 mg/dL, Hematocrit: 38.8%, WBC Count: 6 10 /?L, Platelet Count: 588152 cells/?L Substance Abuse: Never smoker Risk Factors / Comorbidities:Hypertension Pulmonary RF: Sleep Apnea Cardiac Status: Ejection Fraction = 64% Coronary Artery Disease: 3 vessels diseased, Proximal LAD Stenosis >= 70%, No coronary symptoms Valve Disease: Trivial/Trace AR, Trivial/Trace MR, Trivial/Trace TR General: Well developed and well nourished appearance. No acute distress. Skin: No rash on chest, arms or legs. Warm, dry. Head/Eyes: Sclera clear, normal conjunctiva. EOMI. Mouth/Pharynx: Teeth: Fair dentition. No lesions. Mucous membranes moist Neck: No JVD. Supple. Lungs: Normal respiratory effort. Clear lungs without rhonchi, rales, wheezing. Breasts: Deferred Heart: Normal PMI. No lifts or thrills. Regular rate and rhythm. Normal S1, S2. No S3. No S4. No murmurs. No rubs. Peripheral Vascular/Arteries: DP/Radial pulses normal. Abdomen: Soft abdomen, nontender, nondistended without mass. Normal bowel sounds. Musculoskeletal: No kyphoscoliosis. No joint deformities. Extremities: No clubbing or cyanosis. Trace BLE edema (L > R). Warm digits. Neurologic/Psychiatric: Oriented to person, place, time. Normal affect. No gross focal neurologic deficits. Lines, Drains, and Airways None DATA: Diagnostic tests reviewed for today's visit: Bilateral carotid US 01/28/24: RIGHT SIDE Internal carotid artery: <50% stenosis consistent with mild carotid artery disease. External carotid artery: Patent. Vertebral artery: Patent and antegrade flow noted. Innominate artery: Patent. Subclavian artery: Patent. LEFT SIDE Internal carotid artery: <50% stenosis consistent with mild carotid artery disease. External carotid artery: Patent. Vertebral artery: Patent and antegrade flow noted. Subclavian artery: Patent. Cardiac cath 01/14/24: Coronary Anatomy: Right Dominant Injection Site(s): Coronary Artery LMT: The LMT has mild diffuse disease. LAD: The proximal LAD is narrowed 80 % - severe diffuse disease. Additional Comment: Large-caliber vessel. The proximal to mid vessel has severe diffuse disease up to 80% luminal narrowing in multiple areas. LCX: The 1st obtuse marginal circumflex is narrowed 90 % - focal disease. Additional Comment: Large-caliber nondominant vessel. There is a large first obtuse marginal branch which has a focal proximal 90% stenosis. RAMUS: Ramus Status: Not Applicable. RCA: The proximal RCA is narrowed 90 % - focal disease. Additional Comment: Large-caliber dominant vessel. There is an eccentric 90% stenosis in the proximal vessel. The mid and distal vessel has mild diffuse disease. Echo 12/13/23: CONCLUSIONS: - Exam indication: Abnormal ECG - The left ventricle is normal in size. Left ventricular systolic function is normal. EF = 64 5% (2D biplane) Normal left ventricular diastolic function. - The right ventricle is dilated. Right ventricular systolic function is normal. - The right atrial cavity is dilated. - There are no significant valvular abnormalities. - The visualized aorta is borderline dilated with a maximal dimension of 3.9 cm. - There is mild (1+) tricuspid regurgitation. - Estimated right ventricular systolic pressure is 42 mmHg consistent with mild pulmonary hypertension. Estimated right atrial pressure is 15 mmHg based on IVC assessment. - The patient has not had a prior CC echocardiographic exam for comparison. NM Stress test 12/21/23: CONCLUSIONS: 1. SPECT Perfusion Study: Abnormal. 2. No evidence of scarred myocardium. 3. There is moderate (10-20%) ischemia in the territory of the RCA. 4. Left ventricle is normal in size. The left ventricle systolic function is normal. 5. Right ventricle is normal in size. 6. This is an intermediate risk scan. Gated Stress IR:3D LVEF % 62 CT chest 01/29/24: IMPRESSION: 1. Nodular density along the pleural surface in the posterior left lower lobe measures 9 x 5 mm 2. No pleural effusion or consolidation 3. No thoracic lymphadenopathy PFTs 01/29/24: FEV1 = 93 DLCO = 117 5 meter walk 01/22/24: 5.65 sec 5.43 sec 5.68 sec Recent Labs 02/06/24 0814 UPH 6.5 SPGR 1.022 UGLUC Negative UBILI Negative UKET Negative UHB Negative UPROT Trace* UROBILINOGEN 1.0 EU/dL NITRITES Negative UWBC 0-5 /HPF Assessment/Plan MV CAD Procedure: CABG scheduled on 02/25/[address] Iqbal The risks, benefits and anticipated outcomes of the procedure, the risks and benefits of the alternatives to the procedure, and the roles and tasks of the personnel to be involved, were discussed with the patient by Dr. Iqbal. Consent to be obtained by Dr. Iqbal - Reviewed all pre-op labs, images and reports - MRSA screen completed today - Still needs pre op labs drawn - asked patient to complete today - Pre-op teaching and consultation provided - CHG 4% solution provided to patient along with instructions - Pre-op nutritional drinks were provided - ERAS protocol educated: patient to take Tylenol on DOS - Patient also to take BB and ASA on DOS - Hold lisinopril 24 hours prior to surgery, last dose 02/23/24 - MUPIROCIN and peridex scripts provided - Patient and family have no questions at this time, contact offered for further concerns/questions LLL pulmonary nodule - Incidentally found on pre op CT chest 01/29/24 - Referral previously placed to lung nodule clinic - Reviewed with patient today Dementia - Lives in assisted living facility - Takes donepezil These findings will be communicated back to the requesting provider electronically. SIGNATURE: Caroline Orlando APRN.CNP PATIENT NAME: Homero Mei DATE: February 07, 2024 TIME: 3:52 PM PAGER/CONTACT #: [phone] documented in this encounterAcmc Healthcare System12-19-2024 [facility]12-19-[facility]24 Telephone encounter Note* Telephone Encounter - Camila Pathak LPN - 02/07/2024 9:16 AM EST Patient 's son Indy notified of results and recommendations. Camila Pathak LPN [facility]12-19-2024 Miscellaneous Notes* Telephone Encounter - Camila Pathak LPN - 02/07/2024 9:16 AM EST Patient 's son Indy notified of results and recommendations. Camila Savita NORBERTO Pathak * Telephone Encounter - Camila Pathak LPN - 02/07/2024 9:14 AM EST ----- Message from Lenin Chaudhary MD sent at 02/07/2024 7:12 AM EST ----- UA negative for infection. Iron levels improving. Iron stores still low normal. With recently resolved anemia, would recommend stopping iron supplement at this time and increase iron in diet. Recheckat future OV. documented in this encounterAcmc Healthcare System12-19-2024 Telephone encounter Note * Telephone Encounter - Camila Pathak LPN - 02/07/2024 9:14 AM EST ----- Message from Lenin Chaudhary MD sent at 02/07/2024 7:12 AM EST ----- UA negative for infection. Iron levels improving. Iron stores still low normal. With recently resolved anemia, would recommend stopping iron supplement at this time and increase iron in diet. Recheckat future OV. [facility] History of Present illness Narrative* Lenin Chaudhary MD - 02/06/2024 7:24 AM EST Chief Complaint Patient presents with: Follow Up: questions about upcoming heart surgery Feb 24 at [facility], med refills needed, accompanied by son William Mei is a 78 year old male who presents here today for Above Complaints. Accompanied today by his son William. Patient seen in November for pre op clearance for right hip replacement and was found to have abnormal EKG with subsequent abnormal stress test. Heart cath showing multivessel disease and patient is scheduled for multivessel CABG in February with Dr. Iqbal.Patient remains asymptomatic on current regimen. Patient requesting repeat iron level. No anemia on last set of labs. Taking iron supplement daily as prescribed. HTN: Mr. Mei indicates that he is feeling well and denies any symptoms referable to elevated blood pressure. Specifically denies headache, chest pain, palpitations, dyspnea, and peripheral edema. Patient denies any side effects of his medication(s) and is compliant with their regimen. He does get BP checked at [facility], but cannot recall the readings. Homero denies regular aerobic exercise. He watches his diet for sodium, low fat and low cholesterol generally not very much. Last 3 Encounter BP Readings: Date: BP: 02/06/2024 140/88 01/22/2024 140/80 01/07/2024 165/91 Denies symptoms of depression. Son and patient agree that he has had some improvement in his memorywith the Aricept. No new concerns today. BPH: patient requesting refill on Flomax. Getting up 2-3 times per night. Denies weak stream, straining, dysuria, hematuria. Past medical history, appointments, medications, allergies reviewed. Previous Medical History PAST MEDICAL HISTORY Diagnosis Date Alzheimer's dementia without behavioral disturbance, psychotic disturbance, mood disturbance, or anxiety, unspecified dementia severity, unspecified timing of dementia onset (HCC) Ascending aorta dilatation (HCC) borderline Benign prostatic hyperplasia with urinary frequency Bilateral carpal tunnel syndrome s/p release on right Bilateral inguinal hernia s/p mesh BPH (benign prostatic hyperplasia) CAD (coronary artery disease) 12/21/2023 abnormal stress test. moderate ischemia in RCA DDD (degenerative disc disease), lumbar resolved after discectomy Dementia (HCC) Depression Deviated septum s/p septoplasty Hyperlipidemia Iron deficiency anemia Irritable bowel syndrome 08/1997 improved Lipoma of neck left posterior neck CHRISTIANO (obstructive sleep apnea) [address] Bustamante Personal history of colonic polyps Pulmonary hypertension (HCC) Scalp psoriasis Unspecified essential hypertension Upper GI bleed 05/2023 Vitamin D insufficiency Previous Surgical History PAST SURGICAL HISTORY Procedure Laterality Date BACK SURGERY HX COLON SURGERY HX COLONOSCOPY FLX DX W/COLLJ SPEC WHEN PFRMD , 11/19, 01/24, 01/29 COLONOSCOPY FLX DX W/COLLJ SPEC WHEN PFRMD 03/22/2015 Colonoscopy-repeat 5 years COLONOSCOPY FLX DX W/COLLJ SPEC WHEN PFRMD 11/23/2020 COLONOSCOPY GEN ANES 04/12/2020 Repeat in 1 year COLONOSCOPY GEN ANES 04/26/2020 3 polyps removed. 40 mm, 5 mm, 5mm. repeat in 6 months. DISKECTOMY, LUMBAR, SINGLE SP 2005 HERNIA REPAIR HX INGUINAL HERNIA REPAIR HX 07/19/2010 bilateral inguinal hernia repair with mesh NEUROPLASTY &/TRANSPOS MEDIAN NRV CARPAL TUNNE Right 03/26/2015 Carpal tunnel decomp right PAST SURGICAL HISTORY OF Left 04/10/2019 arthroscopic knee for torn meniscus RHINP PRIM LAT&ALAR CRTLGS&/ELVTN NASAL TI 2008 Rhinoplasty SKIN BIOPSY HX Family History FAMILY HISTORY Problem Relation Age of Onset Heart Mother CHF Hypertension Mother Stroke Father Hypertension Father Patient Allergies ALLERGIES No Known Allergies Current Medications Current Outpatient Medications on File Prior to Visit Medication Sig aspirin, enteric coated (ASPIRIN, ENTERIC COATED) 81 mg EC tablet Take 1 tablet by mouth once daily. atorvastatin (LIPITOR) 40 mg tablet Take 1 tablet by mouth once daily. metoprolol succinate ER (TOPROL XL) 25 mg 24 hr tablet Take 1 tablet by mouth once daily. Cholecalciferol, Vitamin D3, 25 mcg (1,000 unit) cap Take 1 capsule by mouth once daily. vit C/E/Zn/coppr/lutein/zeaxan (PRESERVISION AREDS-2 ORAL) Take by mouth. latanoprost (XALATAN) 0.005 % ophthalmic solution 1 Drop daily at bedtime. acetaminophen (TYLENOL EXTRA STRENGTH) 500 mg tablet Take 500 mg by mouth every 8 hours as needed. tamsulosin (FLOMAX) 0.4 mg Take 1 capsule by mouth daily at bedtime. ferrous sulfate 325 mg (65 mg iron) tablet Take 325 mg by mouth three times a day. senna-docusate (SENNA-S) 8.6-50 mg per tablet Take 1 tablet by mouth once daily as needed for constipation. docusate sodium (COLACE) 100 mg capsule Take 1 capsule by mouth two times a day as needed for constipation. lisinopril (ZESTRIL) 40 mg tablet Take 1 tablet by mouth once daily. cyanocobalamin (VITAMIN B-12) 1,000 mcg tab Take 1 tablet by mouth once daily. donepezil (ARICEPT) 10 mg tablet Take 1 tablet by mouth daily with breakfast. fluticasone (FLONASE) 50 mcg/actuation nasal spray Use 2 Sprays in each nostril as needed. Rinse mouth after use. pantoprazole DR (PROTONIX) 40 mg tablet Take 40 mg by mouth two times a day. No current facility-administered medications on file prior to visit. Social History Social History Tobacco Use Smoking status: Never Smokeless tobacco: Never Vaping Use Vaping status: Never Used Substance Use Topics Alcohol use: No Drug use: No Review of Symptoms REVIEW OF SYSTEMS GENERAL: No weight loss, malaise or fevers RESPIRATORY: Negative for cough, hemoptysis, wheezing, COPD, dyspnea or shortness of breath CARDIOVASCULAR: Negative for chest pain, leg swelling, hypertension, CHF or palpitations GI: No nausea, vomiting, or diarrhea SKIN: Negative for lesions, rash, and itching EXAM: BP 126/80 (BP Site: Right Arm, BP Position: Sitting, BP Cuff Size: Large Adult) Pulse 64 Resp 12 Ht 177.8 cm (5' 10) Wt 92.2 kg (203 lb 3.2 oz) SpO2 96% BMI 29.16 kg/m General Appearance: Well appearing, alert, in no acute distress, well-hydrated, well nourished.. Skin: Skin color, texture, turgor normal, no suspicious rashes or lesions. Lungs: Lungs clear to auscultation. No wheezing, rhonchi, rales.. Heart: RRR without murmur, gallop, or rubs. No ectopy. Abdomen: Normal abdominal exam, Abdomen soft, non-tender. Bowel sounds normal. No masses, organomegaly. Extremities: Edema: 1+ edema to mid harmon bilaterally. Health Maintenance List BP Controlled (<130/80) due on 09/06/2022 LDL Cholesterol due on 09/29/2022 RSV Vaccine(1 - 1-dose 75+ series) Never done Advance Directive Discussion due on 02/19/2023 Covid-19 Vaccine( season) due on 01/30/2024 Annual PCP Team Chronic Disease Visit due on 12/06/2024 DTaP,Tdap,Td Vaccine(3 - Td or Tdap) due on 09/06/2026 Diabetes Screening due on 01/13/2027 Influenza Vaccine Completed Hepatitis C Screening Completed Shingrix Vaccine Completed Pneumococcal Vaccine: 50+ Completed Colorectal Cancer Screening Discontinued Data reviewed Latest Ref Rng 12/07/2023 01/14/2024 WBC 3.70 - 11.00 k/uL 5.85 8.28 RBC 4.20 - 6.00 m/uL 4.41 4.58 Hemoglobin 13.0 - 17.0 g/dL 12.5 (L) 13.4 Hematocrit 39.0 - 51.0 % 38.5 (L) 40.4 MCV 80.0 - 100.0 fL 87.3 88.2 MCH 26.0 - 34.0 pg 28.3 29.3 MCHC 30.5 - 36.0 g/dL 32.5 33.2 RDW-CV 11.5 - 15.0 % 15.6 (H) 13.7 Platelet Count 150 - 400 k/uL 197 181 MPV 9.0 - 12.7 fL 10.7 10.7 Neut% % 57.9 Abs Neut (ANC) 1.45 - 7.50 k/uL 3.38 Lymph% % 24.4 Abs Lymph 1.00 - 4.00 k/uL 1.43 Buchanan% % 13.8 Abs Buchanan <0.87 k/uL 0.81 Eosin% % 3.1 Abs Eosin <0.46 k/uL 0.18 Baso% % 0.5 Abs Baso <0.11 k/uL 0.03 Immature Gran % % 0.3 IMMATURE GRANS (ABS) <0.10 k/uL <0.03 NRBC /100 WBC 0.0 Absolute nRBC <0.01 k/uL <0.01 <0.01 DTYPE Auto Protein, Total 6.3 - 8.0 g/dL 6.7 Albumin 3.9 - 4.9 g/dL 4.1 Calcium 8.5 - 10.2 mg/dL 9.2 9.4 Bilirubin, Total 0.2 - 1.3 mg/dL 0.3 Alkaline Phosphatase 38 - 113 U/L 79 AST 14 - 40 U/L 9 (L) ALT 10 - 54 U/L 13 Glucose 74 - 99 mg/dL 103 (H) 102 (H) BUN 9 - 24 mg/dL 14 10 Creatinine 0.73 - 1.22 mg/dL 1.06 0.97 Sodium 136 - 144 mmol/L 140 142 Potassium 3.7 - 5.1 mmol/L 4.3 4.0 Chloride 98 - 107 mmol/L 104 106 CO2 22 - 30 mmol/L 25 24 Anion Gap 8 - 15 mmol/L 11 12 eGFR >=60 mL/min/1.73m 73 81 Iron 41 - 186 ug/dL 37 (L) TIBC 232 - 386 ug/dL 269 Transferrin Saturation 15.0 - 57.0 % 13.8 (L) Ferritin 30.3 - 565.7 ng/mL 84.6 Legend: (L) Low (H) High ASSESSMENT/PLAN: 1. Coronary artery disease involving [place]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[place] heart without angina pectoris- ICD9: 414.01, ICD10: I25.10 (primary diagnosis) Multivessel disease. Scheduled for CABG on 02/24. Continue ASA and statin and will work on improving BP control. Recommend low sodium diet <2,000 mg per day. - LIPID PANEL, NONFASTING 2. Bilateral lower extremity edema - ICD9: 782.3, ICD10: R60.0 Recommend low sodium diet, leg elevation. Call if worsening and would call in Lasix. 3. Alzheimer's dementia without behavioral disturbance, psychotic disturbance, mood disturbance, oranxiety, unspecified dementia severity, unspecified timing of dementia onset (HCC) - ICD9: 331.0, 294.10, ICD10: G30.9, F02.80 Improved with Aricept. No change in regimen. Recheck in 3 months. - DONEPEZIL 10 MG TABLET 4. Essential hypertension - ICD9: 401.9, ICD10: I10 - Controlled - Continue current medications - Recommend home blood pressure monitoring, to bring results to next visit - Encouraged sodium restriction, DASH or Mediterranean diet - Recommend regular aerobic exercise 5. Mixed hyperlipidemia - ICD9: 272.2, ICD10: E78.2 - Control undetermined, due for labs - Continue current medications - Counseled on healthy diet and regular exercise 6. Benign prostatic hyperplasia with nocturia - ICD9: 600.01, 788.43, ICD10: N40.1, R35.1 Complaining of nocturia 2-3 times per night. Increase flomax to 0.8 mg qhs. Recheck in 3 months. - TAMSULOSIN 0.4 MG CAPSULE - URINALYSIS, WITH MICROSCOPIC 7. Iron deficiency anemia, unspecified iron deficiency anemia type - ICD9: 280.9, ICD10: D50.9 Anemia resolved on recent labs. Recheck iron levels as ordered. Continue supplement for now. - IRON AND TIBC - FERRITIN Lenin Chaudhary MD documented in this encounterAcmc Healthcare System12-10-[facility] History of Present illness Narrative* Gisell Purvis RPFT - 01/29/2024 9:50 AM EST PULM FUNCTION: Provider: Caroline Orlando APRN.POLISHING MACHINE TENDER Assisting Tech: Gisell Purvis RPFT Spirometry: 1 DLCO: 1 LV - Box: 1 documented in this encounterAcmc Healthcare System12-09-2024 Telephone encounter Note * Telephone Encounter - Laura Davidson - 01/28/2024 1:48 PM EST Clearance scanned in from denis vila placed in Dr. Jairo newby to be reviewed. Laura Davidson January 28, 2024 1:48 PM [facility]12-09-2024 Miscellaneous Notes* Telephone Encounter - Laura Davidson - 01/28/2024 1:48 PM EST Clearance scanned in from denis vila placed in Dr. Jairo newby to be reviewed. Laura Davidson January 28, 2024 1:48 PM documented in this encounterAcmc Healthcare System12-06-2024 Telephone encounter Note * Telephone Encounter - Rodolfo Jameson MA - 01/25/2024 3:50 PM EST pt's son William Magaña [phone] call back to schedule his father's surgery for 02/25/24 Presurgical labs will be drawn 01/29/24 at [facility] since he will be there for CT Chest. No fasting required. . Office visit for presurgical instructions 02/07/24 3pm. CABG 02/24/23 arrival time 5:15am procedure time 7:15am [facility]. [facility]12-06-2024 Miscellaneous Notes* Telephone Encounter - Rodolfo Jameson MA - 01/25/2024 3:50 PM EST pt's son William [phone] call back to schedule his father's surgery for 02/25/24 Presurgical labs will be drawn 01/29/24 at [facility] since he will be there for CT Chest. No fasting required. . Office visit for presurgical instructions 02/07/24 3pm. CABG 02/24/23 arrival time 5:15am procedure time 7:15am [facility]. * Telephone Encounter - Rodolfo Jameson MA - 01/24/2024 3:18 PM EST Spoke to pt's son William Richards [phone] to offer surgery date of 02/25/24, 02/27/24 or after. There are no available dates for January 2024. William asked if Mr. Mccarthy could be placed on acancellation list. I explained that if a surgery is cancelled its due to a emergent admitted pt needing surgery. Also since pt is schedule for carotid US on 01/28/24 & PFT, & CT Chest 01/29/24 at [facility]. He will also need presurgical labs drawn and an office visit for presurgical. Pt's son was understanding and will speak with his siblings and call back to schedule. documented in this encounterAcmc Healthcare System12-05-2024 Telephone encounter Note * Telephone Encounter - Rodolfo Jameson MA - 01/24/2024 3:18 PM EST Spoke to pt's son William [phone] to offer surgery date of 02/25/24, 02/27/24 or after. There are no available dates for January 2024. William asked if Mr. Mccarthy could be placed on acancellation list. I explained that if a surgery is cancelled its due to a emergent admitted pt needing surgery. Also since pt is schedule for carotid US on 01/28/24 & PFT, & CT Chest 01/29/24 at [facility]. He will also need presurgical labs drawn and an office visit for presurgical. Pt's son was understanding and will speak with his siblings and call back to schedule. [facility]12-03-2024 Telephone encounter Note* Telephone Encounter - Rodolfo Jameson MA - 01/22/2024 2:06 PM EST Left detailed voicemail regarding future appts PFT 01/23/24 9:30am [facility] [place] CT Chest 01/29/24 10:40am [facility]12-03-2024 Miscellaneous Notes* Telephone Encounter - Rodolfo Jameson MA - 01/22/2024 2:06 PM EST Left detailed voicemail regarding future appts PFT 01/23/[address] 9:[address] [facility] [place] CT Chest 01/29/24 10:40am [facility] documented in this encounterAcmc Healthcare System12-03-2024 Note* Addendum Note - Caroline Orlando APRN.CNP - 01/22/2024 12:48 PM ESTAddended by: CAROLINE ORLANDO on: 01/22/2024 12:48 PM Modules accepted: Orders [facility]12-03-2024 Miscellaneous Notes* Addendum Note - Caroline Orlando APRN.CNP - 01/22/2024 12:48 PM ESTAddended by: CAROLINE ORLANDO on: 01/22/2024 12:48 PM Modules accepted: Orders documented in this encounterAcmc Healthcare System12-03-2024 [facility]12-03-2024 History of Present illness Narrative* Kodka Iqbal MD - 01/22/2024 10:55 AM EST CARDIOTHORACIC SURGERY CONSULT / H&P SERVICE DATE: 01/22/2024 SERVICE TIME: 10:56 AM Subjective PRIMARY SERVICE: Cardiothoracic Surgery CHIEF COMPLAINT: Abnormal stress test and multivessel coronary disease HPI: This is a 78 year old man referred for evaluation of an abnormal stress test and multivessel coronary artery disease and for consideration of bypass surgery. He is being prepared for hip replacement surgery and a stress test was requested. This was abnormal. The SPECT perfusion study was performed on December 21, 2023 and showed moderate 10 to 20% area of ischemia in the territory of the RCA normal left ventricle function EF 62%. On this basis left heart catheterization was not performed showing severe multivessel coronary disease including: LMT: The LMT has mild diffuse disease. LAD: The proximal LAD is narrowed 80 % - severe diffuse disease. Additional Comment: Large-caliber vessel. The proximal to mid vessel has severe diffuse disease up to 80% luminal narrowing in multiple areas. LCX: The 1st obtuse marginal circumflex is narrowed 90 % - focal disease. Additional Comment: Large-caliber nondominant vessel. There is a large first obtuse marginal branch which has a focal proximal 90% stenosis. RAMUS: Ramus Status: Not Applicable. RCA: The proximal RCA is narrowed 90 % - focal disease. Additional Comment: Large-caliber dominant vessel. There is an eccentric 90% stenosis in the proximal vessel. The mid and distal vessel has mild diffuse disease. 2D echo shows: - Exam indication: Abnormal ECG - The left ventricle is normal in size. Left ventricular systolic function is normal. EF = 64 5% (2D biplane) Normal left ventricular diastolic function. - The right ventricle is dilated. Right ventricular systolic function is normal. - The right atrial cavity is dilated. - There are no significant valvular abnormalities. - The visualized aorta is borderline dilated with a maximal dimension of 3.9 cm. - There is mild (1+) tricuspid regurgitation. - Estimated right ventricular systolic pressure is 42 mmHg consistent with mild pulmonary hypertension. Estimated right atrial pressure is 15 mmHg based on IVC assessment. Despite these findings, he denies chest heaviness, pressure, burning, exertional dyspnea, edema etc. However, he recently moved into an assisted living situation so has not as physically active as previously. He does have risk factors for coronary disease including age, male sex, hyperlipidemia, hypertension. He is not diabetic. He is not a smoker. He has no history of previous angina, [place], stroke, renal insufficiency, lower extremity vascular disease. He had an episode of gastrointestinal bleeding from a gastric ulcer in May which, according to his son who accompanies him today, was treated endoscopically at [facility].. Current hemoglobinis 13. He has no bleeding issues at this time. Cancer was identified. He was recently diagnosed with mild to moderate dementia. He has moved into an assisted living situation which is working very well for him. He is still driving. PAST MEDICAL HISTORY Diagnosis Date Alzheimer's dementia without behavioral disturbance, psychotic disturbance, mood disturbance, or anxiety, unspecified dementia severity, unspecified timing of dementia onset (HCC) Ascending aorta dilatation (HCC) borderline Benign prostatic hyperplasia with urinary frequency Bilateral carpal tunnel syndrome s/p release on right Bilateral inguinal hernia s/p mesh BPH (benign prostatic hyperplasia) CAD (coronary artery disease) 12/21/2023 abnormal stress test. moderate ischemia in RCA DDD (degenerative disc disease), lumbar resolved after discectomy Dementia (HCC) Depression Deviated septum s/p septoplasty Hyperlipidemia Iron deficiency anemia Irritable bowel syndrome 08/1997 improved Lipoma of neck left posterior neck CHRISTIANO (obstructive sleep apnea) [address] Bustamante Personal history of colonic polyps Pulmonary hypertension (HCC) Scalp psoriasis Unspecified essential hypertension Upper GI bleed 05/2023 Vitamin D insufficiency PAST SURGICAL HISTORY Procedure Laterality Date BACK SURGERY HX COLON SURGERY HX COLONOSCOPY FLX DX W/COLLJ SPEC WHEN PFRMD , 11/19, 01/24, 01/29 COLONOSCOPY FLX DX W/COLLJ SPEC WHEN PFRMD 03/22/2015 Colonoscopy-repeat 5 years COLONOSCOPY FLX DX W/COLLJ SPEC WHEN PFRMD 11/23/2020 COLONOSCOPY GEN ANES 04/12/2020 Repeat in 1 year COLONOSCOPY GEN ANES 04/26/2020 3 polyps removed. 40 mm, 5 mm, 5mm. repeat in 6 months. DISKECTOMY, LUMBAR, SINGLE SP 2005 HERNIA REPAIR HX INGUINAL HERNIA REPAIR HX 07/19/2010 bilateral inguinal hernia repair with mesh NEUROPLASTY &/TRANSPOS MEDIAN NRV CARPAL TUNNE Right 03/26/2015 Carpal tunnel decomp right PAST SURGICAL HISTORY OF Left 04/10/2019 arthroscopic knee for torn meniscus RHINP PRIM LAT&ALAR CRTLGS&/ELVTN NASAL TI 2009 Rhinoplasty SKIN BIOPSY HX FAMILY HISTORY Problem Relation Age of Onset Heart Mother CHF Hypertension Mother Stroke Father Hypertension Father Social History Tobacco Use Smoking status: Never Smokeless tobacco: Never Vaping Use Vaping status: Never Used Substance Use Topics Alcohol use: No Drug use: No (Not in a hospital admission) aspirin, enteric coated (ASPIRIN, ENTERIC COATED) 81 mg EC tablet Take 1 tablet by mouth once daily. atorvastatin (LIPITOR) 40 mg tablet Take 1 tablet by mouth once daily. metoprolol succinate ER (TOPROL XL) 25 mg 24 hr tablet Take 1 tablet by mouth once daily. Cholecalciferol, Vitamin D3, 25 mcg (1,000 unit) cap Take 1 capsule by mouth once daily. vit C/E/Zn/coppr/lutein/zeaxan (PRESERVISION AREDS-2 ORAL) Take by mouth. latanoprost (XALATAN) 0.005 % ophthalmic solution 1 Drop daily at bedtime. acetaminophen (TYLENOL EXTRA STRENGTH) 500 mg tablet Take 500 mg by mouth every 8 hours as needed. tamsulosin (FLOMAX) 0.4 mg Take 1 capsule by mouth daily at bedtime. ferrous sulfate 325 mg (65 mg iron) tablet Take 325 mg by mouth three times a day. senna-docusate (SENNA-S) 8.6-50 mg per tablet Take 1 tablet by mouth once daily as needed for constipation. docusate sodium (COLACE) 100 mg capsule Take 1 capsule by mouth two times a day as needed for constipation. lisinopril (ZESTRIL) 40 mg tablet Take 1 tablet by mouth once daily. cyanocobalamin (VITAMIN B-12) 1,000 mcg tab Take 1 tablet by mouth once daily. donepezil (ARICEPT) 10 mg tablet Take 1 tablet by mouth daily with breakfast. fluticasone (FLONASE) 50 mcg/actuation nasal spray Use 2 Sprays in each nostril as needed. Rinse mouth after use. pantoprazole DR (PROTONIX) 40 mg tablet Take 40 mg by mouth two times a day. ALLERGIES No Known Allergies REVIEW OF SYSTEMS: Denies fever, chills, cough, stroke, COPD, hepatic disease, renal disease, cancer, bleeding,. He does have DJD and is scheduled to have a Resperate recommended to have a hip replacement. He has sleepapnea but does not like to use positive pressure. Objective PHYSICAL EXAM: BP 140/80 (BP Site: Left Arm, BP Position: Sitting) Pulse 62 Resp 16 Ht 6' 1 (1.854 m) Wt 201 lb (91.2 kg) SpO2 98% BMI 26.52 kg/m Body surface area is 2.17 meters squared. On examination, he appears well and is breathing comfortably. Vitals signs are BP 140/80 (BP Site: Left Arm, BP Position: Sitting) Pulse 62 Resp 16 Ht 6' 1 (1.854 m) Wt 201 lb (91.2 kg) SpO2 98% BMI 26.52 kg/m . There is no JVD. No cervical or supraclavicular adenopathy is palpated. The chest is symmetrical without deformity. Breath sounds are clear bilaterally. The cardiac rhythm isregular. There are no rubs, gallops, or murmurs. The carotid, subclavian, and radial pulses are 2+ and equal bilaterally. The abdomen is soft and non-tender. There are no abdominal masses. There is no hepatojugular reflux. There is no pretibial edema. There is no clubbing or cyanosis. STS RISK CALCULATOR: 0.8 STS Calculator DATA: Diagnostic tests reviewed for today's visit: left heart cath, echo Assessment/Plan Homero Mei is a 78-year-old man found to have inducible ischemia and severe multivessel coronary disease with well preserved left function in the setting of recent diagnosis of mild to moderate Denny. I do agree with recommendation multivessel coronary bypass grafting. I do not think that this dementia add significant risk to his postoperative course.The risks, benefits, and anticipated outcomes of the procedure; the risks and benefits of the alternatives to the procedure; and the roles and tasks of the personnel to be involved were discussed with the patient and he consents to theprocedure and agrees to proceed. In preparation for surgery requesting CT of the chest, carotid duplex scan, PFT. Surgery will be scheduled for near future. The risks, benefits, and anticipated outcomes of the procedure; the risks and benefits of the alternatives to the procedure; and the roles and tasks of the personnel to be involved were discussed with the patient and he consents to the procedure and agrees to proceed. These findings will be communicated back to the requesting provider electronically. SIGNATURE: Kodak Iqbal MD PATIENT NAME: Homero Mei DATE: January 22, 2024 TIME: 10:55 AM PAGER/CONTACT #: [phone] * Caroline Orlando APRN.POLISHING MACHINE TENDER - 01/22/2024 9:30 AM EST STS for Isolated CABG Perioperative Outcome Estimate % Operative Mortality 0.81% Morbidity & Mortality 4% Stroke 0.56% Renal Failure 0.595% Reoperation 1.79% Prolonged Ventilation 1.85% Deep Sternal Wound Infection 0.069% Long Hospital Stay (>14 days) 2.32% Short Hospital Stay (<6 days)* 55% *higher values reflect a better outcome Clinical Summary Planned Surgery: Isolated CABG, Elective, First cardiovascular surgery Demographics: 78 year old, male, 91.6kg, 185.4cm, BMI: 26.6 kg/m Lab Values: Creatinine: 1.04 mg/dL, Hematocrit: 38.8%, WBC Count: 6 10 /?L, Platelet Count: 030815 cells/?L Substance Abuse: Never smoker Risk Factors / Comorbidities: Hypertension Pulmonary RF: Sleep Apnea Cardiac Status: Ejection Fraction = 64% Coronary Artery Disease: 3 vessels diseased, Proximal LAD Stenosis >= 70%, No coronary symptoms Valve Disease: Trivial/Trace AR, Trivial/Trace MR, Trivial/Trace TR documented in this encounterAcmc Healthcare System12-03-2024 Instructions* Patient Instructions* Caroline Orlando APRN.CNP - 01/22/2024 10:13 AM EST You came in to see Dr. Iqbal today for surgical evaluation of severe multi- vessel coronary arterydisease. By reviewing your images/clinical data, Dr. Iqbal recommends proceeding with coronary artery bypass graft surgery. In preparation for surgery, we recommend obtaining the following tests (which will be ordered and scheduled by our office): Carotid ultrasound Lung function test CT chest Once the above tests are resulted, we will get you a date for surgery. You will be seen in the office one week prior to surgery with one of our nurse practitioners to review pre surgical instructions. Thanks for coming in to see us today. Please call us if you have any concerns/questions: [phone] Caroline Orlando APRN.CNP Cardiothoracic surgery HIDE HOUSE SUPERVISOR documented in this encounterAcmc Healthcare System12-03-2024 Nurse Note* Saranya Heredia LPN - 01/22/2024 9:59 AM EST CARDIAC REHAB 5 METER WALK TEST SERVICE DATE: 01/22/2024 SERVICE TIME: 939 ASSESSMENT: 5.65 sec 5.43 sec 5.68 sec SIGNATURE: Saranya Heredia LPN PATIENT NAME: Homero Mei DATE: January 22, 2024 TIME: 9:59 AM PAGER/CONTACT #: [phone] [facility]12-03-20[facility] Nurse Note* Saranya Heredia LPN - 01/22/2024 9:59 AM EST CARDIAC REHAB 5 METER WALK TEST SERVICE DATE: 01/22/2024 SERVICE TIME: 939 ASSESSMENT: 5.65 sec 5.43 sec 5.68 sec SIGNATURE: Saranya Heredia LPN PATIENT NAME: Homero Mei DATE: January 22, 2024 TIME: 9:59 AM PAGER/CONTACT #: [phone] documented in this encounterAcmc Healthcare System12-03-2024 [facility]11-25-2024 NoteHNO ID: [id number] Author: SMITA FIELDS RN Service: ? Author Type: Registered Nurse Type: Nursing Progress Note Filed: 01/14/2024 08:45 Note Text: [id number] patient admitted to POD, pre procedure teaching at bedside, review of medications with patient.[facility]11-19-2024 Telephone encounter Note* Telephone Encounter - Laura Davidson - 01/08/2024 3:22 PM EST Clearance scanned in from denis vila placed in Dr. Jairo newby to be reviewed. Laura Davidson January 08, 2024 3:22 PM [facility]11-19-2024 Miscellaneous Notes* Telephone Encounter - Laura Davidson - 01/08/2024 3:22 PM EST Clearance scanned in from denis vila placed in Dr. Jairo newby to be reviewed. Laura Davidson January 08, 2024 3:22 PM documented in this encounterAcmc Healthcare System11-18-2024 Telephone encounter Note * Telephone Encounter - Arlyn Scott LPN - 01/07/2024 12:29 PM EST Detailed message left on [employer]'s secure VM and advised form [facility] Arlyn Scott LPN [facility]11-18-2024 Miscellaneous Notes* Telephone Encounter - Arlyn Scott LPN - 01/07/2024 12:29 PM EST Detailed message left on [employer]'s secure VM and advised form [facility] Arlyn Scott LPN * Telephone Encounter - Lenin Chaudhary MD - 01/07/2024 12:09 PM EST Form completed with my information and placed in outbox. Patient will need to complete his portion and sign off on it before they take to [facility]. * Telephone Encounter - Aleyda Hatch LPN - 01/05/2024 8:59 AM EST [facility], patient's son called to request a letter\order from the doctor documenting need for driving evaluation due to patient mild dementia. Homero will be having this completed at [facility] and once letter/order is completed please phone [facility] to notifying him that it is ready for vegetable picker. documented in this encounterAcmc Healthcare System11-18-2024 Telephone encounter Note * Telephone Encounter - Lenin Chaudhary MD - 01/07/2024 12:09 PM EST Form completed with my information and placed in outbox. Patient will need to complete his portion and sign off on it before they take to [facility]. [facility]11-18-2024 Instructions* Patient Instructions* Dhara Gill MD - 01/07/2024 10:47 AM EST We are scheduling you for a heart catheterization No eating for 3 hours prior to the cath You can drink water until you arrive at the hospital documented in this encounterAcmc Healthcare System11-18-2024 History of Present illness Narrative* Dhara Gill MD - 01/07/2024 10:20 AM EST Images from the original note were not included. [facility] SE[facility] CARDIOLOGY Cardiology ([facility]) [address] [facility] [id number] OUTPATIENT VISIT DATE 01/03/2024 PRIMARY CARE PHYSICIAN: Lenin Chaudhary [address] [place] [address] REFERRING PHYSICIAN: No referring provider defined for this encounter. CHIEF COMPLAINT: Stress test HISTORY OF PRESENT ILLNESS: Mr. Mei is a 78 year old gentleman who is seen today for evaluation of abnormal stress test. He is a lifelong non-smoker but has strong family history of coronary artery disease in both parents and a sister. He has a history of dyslipidemia and has been maintained on statin therapy. He has had some worsening dementia over the last few years. His son companied to the office visit. He was moved into assisted living in September of this year. The son reports that he has had marked improvementin his memory since going to assisted living. He thinks he was having difficulties managing his ADLs at home alone. Patient denies symptoms of chest pain or chest pressure. He does not have shortnessof breath or dyspnea on exertion. However, his functional capacity has been limited over the last 2to 3 years. He was admitted in May with an upper GI bleed and the son reports he had a slow recovery from that hospital admission. He has not had symptoms concerning for congestive heart failure including PND, orthopnea, or lower extremity edema. PAST MEDICAL HISTORY Diagnosis Date Alzheimer's dementia without behavioral disturbance, psychotic disturbance, mood disturbance, or anxiety, unspecified dementia severity, unspecified timing of dementia onset (HCC) Ascending aorta dilatation (HCC) borderline Benign prostatic hyperplasia with urinary frequency Bilateral carpal tunnel syndrome s/p release on right Bilateral inguinal hernia s/p mesh BPH (benign prostatic hyperplasia) CAD (coronary artery disease) 12/21/2023 abnormal stress test. moderate ischemia in RCA DDD (degenerative disc disease), lumbar resolved after discectomy Dementia (HCC) Depression Deviated septum s/p septoplasty Hyperlipidemia Iron deficiency anemia Irritable bowel syndrome 08/1997 improved Lipoma of neck left posterior neck CHRISTIANO (obstructive sleep apnea) [address] Bustamante Personal history of colonic polyps Pulmonary hypertension (HCC) Scalp psoriasis Unspecified essential hypertension Upper GI bleed 05/2023 Vitamin D insufficiency PAST SURGICAL HISTORY Procedure Laterality Date BACK SURGERY HX COLON SURGERY HX COLONOSCOPY FLX DX W/COLLJ SPEC WHEN PFRMD , 11/19, 01/24, 01/29 COLONOSCOPY FLX DX W/COLLJ SPEC WHEN PFRMD 03/22/2015 Colonoscopy-repeat 5 years COLONOSCOPY FLX DX W/COLLJ SPEC WHEN PFRMD 11/23/2020 COLONOSCOPY GEN ANES 04/12/2020 Repeat in 1 year COLONOSCOPY GEN ANES 04/26/2020 3 polyps removed. 40 mm, 5 mm, 5mm. repeat in 6 months. DISKECTOMY, LUMBAR, SINGLE SP 2006 HERNIA REPAIR HX INGUINAL HERNIA REPAIR HX 07/19/2010 bilateral inguinal hernia repair with mesh NEUROPLASTY &/TRANSPOS MEDIAN NRV CARPAL TUNNE Right 03/26/2015 Carpal tunnel decomp right PAST SURGICAL HISTORY OF Left 04/10/2019 arthroscopic knee for torn meniscus RHINP PRIM LAT&ALAR CRTLGS&/ELVTN NASAL TI 2009 Rhinoplasty SKIN BIOPSY HX SOCIAL HISTORY Social History Tobacco Use Smoking status: Never Smokeless tobacco: Never Vaping Use Vaping status: Never Used Substance Use Topics Alcohol use: No Drug use: No FAMILY HISTORY Problem Relation Age of Onset Heart Mother CHF Hypertension Mother Stroke Father Hypertension Father ALLERGIES: ALLERGIES No Known Allergies MEDICATIONS: aspirin, enteric coated (ASPIRIN, ENTERIC COATED) 81 mg EC tablet Take 1 tablet by mouth once daily. atorvastatin (LIPITOR) 40 mg tablet Take 1 tablet by mouth once daily. metoprolol succinate ER (TOPROL XL) 25 mg 24 hr tablet Take 1 tablet by mouth once daily. Cholecalciferol, Vitamin D3, 25 mcg (1,000 unit) cap Take 1 capsule by mouth once daily. vit C/E/Zn/coppr/lutein/zeaxan (PRESERVISION AREDS-2 ORAL) Take by mouth. latanoprost (XALATAN) 0.005 % ophthalmic solution 1 Drop daily at bedtime. acetaminophen (TYLENOL EXTRA STRENGTH) 500 mg tablet Take 500 mg by mouth every 8 hours as needed. tamsulosin (FLOMAX) 0.4 mg Take 1 capsule by mouth daily at bedtime. ferrous sulfate 325 mg (65 mg iron) tablet Take 325 mg by mouth three times a day. senna-docusate (SENNA-S) 8.6-50 mg per tablet Take 1 tablet by mouth once daily as needed for constipation. docusate sodium (COLACE) 100 mg capsule Take 1 capsule by mouth two times a day as needed for constipation. lisinopril (ZESTRIL) 40 mg tablet Take 1 tablet by mouth once daily. cyanocobalamin (VITAMIN B-12) 1,000 mcg tab Take 1 tablet by mouth once daily. donepezil (ARICEPT) 10 mg tablet Take 1 tablet by mouth daily with breakfast. fluticasone (FLONASE) 50 mcg/actuation nasal spray Use 2 Sprays in each nostril as needed. Rinse mouth after use. pantoprazole DR (PROTONIX) 40 mg tablet Take 40 mg by mouth two times a day. REVIEW OF SYSTEMS: Review of Systems Constitutional: Negative for chills, fever, malaise/fatigue and weight loss. HENT: Negative for hearing loss and sore throat. Eyes: Negative for blurred vision and double vision. Respiratory: Negative. Cardiovascular: Negative. Genitourinary: Negative for dysuria, frequency, hematuria and urgency. Musculoskeletal: Negative. Skin: Negative. Neurological: Negative for dizziness, seizures, loss of consciousness, weakness and headaches. Endo/Heme/Allergies: Negative for environmental allergies. Does not bruise/bleed easily. Psychiatric/Behavioral: Negative for depression. PHYSICAL EXAMINATION: BP 147/85 Pulse 59 Wt 202 lb (91.6kg) SpO2 97% Gentleman sitting appears comfortable no apparent distress. He is alert and oriented HEENT: Carotid upstrokes are brisk without bruits no JVD appreciated. There is no corneal arcus senilis or xanthelasma noted. Pulmonary: Lungs are clear no rales, wheezes, rhonchi Cardiovascular: Normal S1, S2 with regular rate and rhythm. No murmur, rubs, or gallops Extremities: Warm, well-perfused, no lower extremity edema. 2+ distal pulses CARDIOVASCULAR MEDICINE TESTING: Regadenoson Myoview Stress 12/21/2023: CONCLUSIONS: 1. SPECT Perfusion Study: Abnormal. 2. No evidence of scarred myocardium. 3. There is moderate (10-20%) ischemia in the territory of the RCA. 4. Left ventricle is normal in size. The left ventricle systolic function is normal. 5. Right ventricle is normal in size. 6. This is an intermediate risk scan. Gated Stress IR:3D LVEF % 62 Echocardiogram 12/13/2023: - The left ventricle is normal in size. Left ventricular systolic function is normal. EF = 64 5% (2D biplane) Normal left ventricular diastolic function. - The right ventricle is dilated. Right ventricular systolic function is normal. - The right atrial cavity is dilated. - There are no significant valvular abnormalities. - The visualized aorta is borderline dilated with a maximal dimension of 3.9 cm. - There is mild (1+) tricuspid regurgitation. - Estimated right ventricular systolic pressure is 42 mmHg consistent with mild pulmonary hypertension. Estimated right atrial pressure is 15 mmHg based on IVC assessment. - The patient has not had a prior CC echocardiographic exam for comparison. I have personally reviewed the Electrocardiogram, Laboratory Testing, Echocardiogram, and Stress Test: Nuclear (Non-PET). IMPRESSION: Mr. Mei is a 78 year old gentleman with risk factors coronary disease including family history of coronary artery disease, borderline hypertension, dyslipidemia who is referred for evaluationdue to abnormal stress test. PLAN AND RECOMMENDATIONS: 1. Abnormal nuclear stress test - ICD9: 794.39, ICD10: R94.39 (primary diagnosis) Not sure why the patient was scheduled for stress test preoperatively. Based on his functional capacity and risk factors he did not need restratification prior to hip replacement surgery. I discussedthis in detail with the patient and his son. Unfortunately, now he has significant abnormal stress test and will need further evaluation prior to clearance for surgery. I recommended proceeding with diagnostic angiography. The risk, benefits, and alternatives were discussed with the patient in detail. He understands the risks and is willing to proceed. - CARDIAC BYPRODUCTS OPERATOR ORDER 2. Essential hypertension - ICD9: 401.9, ICD10: I10 - CARDIAC BYPRODUCTS OPERATOR ORDER 3. Mixed hyperlipidemia - ICD9: 272.2, ICD10: E78.2 Patient maintained on atorvastatin 40 mg daily Dhara Gill MD documented in this encounterAcmc [facility]11-18-[facility] Tele[facility] encounter Note* Telephone Encounter - Aleyda Hatch LPN - 01/05/2024 8:59 AM EST Indy, patient's son called to request a letter\order from the doctor documenting need for driving evaluation due to patient mild dementia. Homero will be having this completed at [facility] and once letter/order is completed please phone Indy to notifying him that it is ready for vegetable picker. [facility]11-04-2024 Telephone encounter Note* Telephone Encounter - Lenin Chaudhary MD - 12/24/2023 2:49 PM EST Thank you. [facility]11-04-2024 Miscellaneous Notes* Telephone Encounter - Lenin Chaudhary MD - 12/24/2023 2:49 PM EST Thank you. * Telephone Encounter - Lesly Ferris RN - 12/24/2023 1:07 PM EST Called and spoke with Patient's son, Indy. Patient scheduled with Dr. Gill 01/07/24. Other scheduled cardiology appointments cancelled per request. Lesly Ferris RN * Telephone Encounter - Saranya Vaca - 12/24/2023 1:03 PM EST [facility] does not have any sooner appt * Telephone Encounter - Lenin Chaudhary MD - 12/24/2023 11:05 AM EST He has an abnormal stress test with signs of blockage in his right coronary artery and we can't gethim in anywhere sooner than FEBRUARY? * Telephone Encounter - Angi Montana RN - 12/24/2023 10:28 AM EST Nadia floor nurse at [facility] called and let know provider send medication. She wanted to let provider know that she talked with Pts son and they had canceled Pts surgery for now. She states Pt has a cardiology f/u at [facility] on 02/29/24 for the abnormal stress test, and a Cardiology appointment in [place] on 03/28/24. * Telephone Encounter - Lenin Chaudhary MD - 12/24/2023 9:46 AM EST Rx sent. * Telephone Encounter - Isaura Haji LPN - 12/24/2023 9:09 AM EST Called and spoke with floor nurse Deedee. Gave providers response. Voices understanding. Will ask.Asking if aspirin can be sent to [facility] pharmacy. Isaura Haji LPN * Telephone Encounter - Lenin Chaudhary MD - 12/24/2023 7:33 AM EST I dont have an NSAID allergy listed for this patient. I would check with him, and unless he can give a specific allergy, I would have him start the ASA. * Telephone Encounter - Cata Guzman LPN - 12/21/2023 2:43 PM EDT Rufina roz, states she put new medications in patients list and it flagged Aspirin as a possible allergy. Patient has an NSAID allgery. Want to make sure the Aspirin is ok. Please advise. * Telephone Encounter - Lenin Chaudhary MD - 12/21/2023 1:59 PM EDT Reviewed. New rx sent. Please call with side effects of myalgias, lightheadedness/dizziness, HR <60 or BP <100/60. F/u with cardiology CURLY. * Telephone Encounter - Arlyn Scott LPN - 12/21/2023 1:56 PM EDT Contacted Rufina floor nurse on duty at [facility] and reviewed information/orders with her. She readN.O.s back and aware Indy and patient have been updated as well. Arlyn Scott LPN * Telephone Encounter - Arlyn Scott LPN - 12/21/2023 1:48 PM EDT Phoned patient and reviewed everything with him. Patient ultimately agreeable to recommendations. Requested message be sent to him in so he can review everything if he has any questions. [employer] requested. Advised him I would also update [facility]. Arlyn Scott LPN * Telephone Encounter - Arlyn Scott LPN - 12/21/2023 1:20 PM EDT Reviewed results with patient's son, Indy and he voiced understanding. Indy gave me Homero's numberso that I could contact him and review with him as well. I advised Indy if Homero is agreeable witheverything will update [place] as well. Indy voiced understanding about getting patient in with cardiology sooner/CURLY. * Telephone Encounter - Lenin Chaudhary MD - 12/21/2023 12:12 PM EDT Patient's stress test is abnormal. 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 Recommend patient have earlier appointment with cardiology. Needs to be seen CURLY to evaluate need for heart cath. Recommend patient also start 81 mg ASA OTC on a daily basis. Will increase lipitor from 20 to 40 mgdaily and may increase to 80 if tolerated. I would also recommend starting him on a beta darcy call metoprolol at a low dosage to help lower HR and BP and reduce work load of his heart. If agreeable to these changes, will send rx to requested pharmacy. If patient were to develop new chest pain, SOB, palpitations would recommend ER evaluation. documented in this encounterAcmc Healthcare System11-04-2024 Telephone encounter Note * Telephone Encounter - Lesly Ferris, RN - 12/24/2023 1:07 PM EST Called and spoke with Patient's son, Indy. Patient scheduled with Dr. Gill 01/07/24. Other scheduled cardiology appointments cancelled per request. Lesly Ferris, RN [facility]11-04-2024 Telephone encounter Note* Telephone Encounter - Saranya Vaca - 12/24/2023 1:03 PM EST [facility] does not have any sooner appt [facility]11-04-[facility] Telephone encounter Note* Telephone Encounter - Lenin Chaudhary MD - 12/24/2023 11:05 AM EST He has an abnormal stress test with signs of blockage in his right coronary artery and we can't gethim in anywhere sooner than FEBRUARY? [place] [address]-04-2024 Telephone encounter Note* Telephone Encounter - Angi Montana RN - 12/24/2023 10:28 AM EST Nadia floor nurse at [facility] called and let know provider send medication. She wanted to let provider know that she talked with Pts son and they had canceled Pts surgery for now. She states Pt has a cardiology f/u at [facility] on 02/29/24 for the abnormal stress test, and a Cardiology appointment in [place] on 03/28/24. [place] [address]-04-2024 Telephone encounter Note* Telephone Encounter - Lenin Chaudhary MD - 12/24/2023 9:46 AM EST Rx sent. [facility]11-04-2024 Telephone encounter Note* Telephone Encounter - Isaura Haji LPN - 12/24/2023 9:09 AM EST Called and spoke with floor nurse Deedee. Gave providers response. Voices understanding. Will ask.Asking if aspirin can be sent to [facility] pharmacy. Isaura Haji LPN [place] [address]-04-2024 Telephone encounter Note* Telephone Encounter - Lenin Chaudhary MD - 12/24/2023 7:33 AM EST I dont have an NSAID allergy listed for this patient. I would check with him, and unless he can give a specific allergy, I would have him start the ASA. [facility]11-01-[facility] Telephone encounter Note* Telephone Encounter - Cata Guzman LPN - 12/21/2023 2:43 PM EDT Rufina [facility], states she put new medications in patients list and it flagged Aspirin as a possible allergy. Patient has an NSAID allgery. Want to make sure the Aspirin is ok. Please advise. [facility]11-01-[facility] Telephone encounter Note* Telephone Encounter - Lenin Chaudhary MD - 12/21/2023 1:59 PM EDT Reviewed. New rx sent. Please call with side effects of myalgias, lightheadedness/dizziness, HR <60 or BP <100/60. F/u with cardiology CURLY. [facility]11-01-2024 Telephone encounter Note* Telephone Encounter - Arlyn Scott LPN - 12/21/2023 1:56 PM EDT Contacted [facility] nurse on duty at [facility] and reviewed information/orders with her. She readN.O.s back and aware Indy and patient have been updated as well. Arlyn Scott LPN [facility]11-01-2024 Telephone encounter Note* Telephone Encounter - Arlyn Scott LPN - 12/21/2023 1:48 PM EDT Phoned patient and reviewed everything with him. Patient ultimately agreeable to recommendations. Requested message be sent to him in so he can review everything if he has any questions. [employer] requested. Advised him I would also update [place]. Arlyn Scott LPN [facility]11-01-2024 Telephone encounter Note* Telephone Encounter - Arlyn Scott LPN - 12/21/2023 1:20 PM EDT Reviewed results with patient's son, Indy and he voiced understanding. Indy gave me Homero's numberso that I could contact him and review with him as well. I advised Indy if Homero is agreeable witheverything will update [place] as well. Indy voiced understanding about getting patient in with cardiology sooner/CURLY. [facility]11-01-[facility] Telephone encounter Note* Telephone Encounter - Lenin Chaudhary MD - 12/21/2023 12:12 PM EDT Patient's stress test is abnormal. 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 Recommend patient have earlier appointment with cardiology. Needs to be seen CURLY to evaluate need for heart cath. Recommend patient also start 81 mg ASA OTC on a daily basis. Will increase lipitor from 20 to 40 mgdaily and may increase to 80 if tolerated. I would also recommend starting him on a beta darcy call metoprolol at a low dosage to help lower HR and BP and reduce work load of his heart. If agreeable to these changes, will send rx to requested pharmacy. If patient were to develop new chest pain, SOB, palpitations would recommend ER evaluation. [facility]11-01-[facility]24 History of Present illness Narrative* Rodolfo Beltran CNMT - 12/21/2023 8:00 AM EDT RADIOLOGY SERVICE PROGRESS NOTE SERVICE DATE: 12/21/2023 SERVICE TIME: 8:02 AM PATIENT IDENTITY VERIFICATION COMPLETED USING TWO (2) STANDARD IDENTIFIERS: Name and Date of confirmed by patient verbally and Name and Date of confirmed by identification band FALL SCREENING: Has the patient had 2 falls in the last year or 1 fall with injury or currently using an Ambulatory Assistive Device (Walker, Cane, Wheelchair, Crutches, etc.)? No PATIENT GENDER DATA: .male ALLERGIES: Reviewed and unchanged MEDICATIONS REVIEWED: Not applicable PATIENT RELEVANT IMPLANT DATA REVIEWED: Not Applicable PATIENT PRESENTS WITH AN IMPLANTABLE OR ATTACHED RECEIVING SPECIALIST: No CREATININE: Creatinine Date Value Ref Range Status 12/07/2023 1.06 0.73 - 1.22 mg/dL Final 07/17/2023 1.55 (H) 0.73 - 1.22 mg/dL Final 06/20/2023 1.05 0.73 - 1.22 mg/dL Final Estimated Glomerular Filtration Rate Date Value Ref Range Status 12/07/2023 73 >=60 mL/min/1.73m Final Comment: Estimated Glomerular Filtration Rate (eGFR) is calculated using the 2020 CKD-EPI creatinine equation. This equation utilizes serum creatinine, sex, and age as parameters. The creatinine assay has traceable calibration to isotope dilution- mass spectrometry. Refer to KDIGO guidelines for clinical interpretation. In patients with unstable renal function, e.g. those with acute kidney injury, the eGFRmay not accurately reflect actual GFR. eGFR- Date Value Ref Range Status 02/28/2021 >60 Final P.O.C.T. RESULTS: N/A December 21, [address] PERFORMED: No IV SITE: Ambulatory: A peripheral IV was started in the Right antecubital site with a Angio cath: 22 gauge. POST EXAM PIV STATUS: Discontinued PROCEDURE TYPE: NM Stress: 9.2 mCi [id number] was administered IV for Rest Imaging at 7:54 by mm. 28.2 mCi [id number] was administered IV for Stress Imaging at 9:17 by mm. PATIENT DISCHARGED TO: Ambulatory patient, left [place] department area. A Diagnostic radioactive procedure has taken place, with no further precautions necessary other than routine body substance precautions. More information regarding radiation safety can be found usingthis link: [email or web address]%20Nuclear%20Medicine%[email or web address] SIGNATURE: JJ Rodgers PATIENT NAME: Homero Mei DATE: December 21, 2023 TIME: 8:02 AM PAGER/CONTACT #: documented in this encounterAcmc Healthcare System11-01-2024 NoteHNO ID: [id number] Author: RODOLFO BELTRAN CNMT Service: Radiology Author Type: Technologist Type: Progress Notes Filed: 12/21/2023 09:21 Note Text: RADIOLOGY SERVICE PROGRESS NOTE SERVICE DATE: 12/21/2023 SERVICE TIME: 8:02 AM PATIENT IDENTITY VERIFICATION COMPLETED USING TWO (2) STANDARD IDENTIFIERS: Name and Date of confirmed by patient verbally and Name and Date of confirmed by identification band FALL SCREENING: Has the patient had 2 falls in the last year or 1 fall with injury or currently using an Ambulatory Assistive Device (Walker, Cane, Wheelchair, Crutches, etc.)? No PATIENT GENDER DATA: .male ALLERGIES: Reviewed and unchanged MEDICATIONS REVIEWED: Not applicable PATIENT RELEVANT IMPLANT DATA REVIEWED: Not Applicable PATIENT PRESENTS WITH AN IMPLANTABLE OR ATTACHED RECEIVING SPECIALIST: No CREATININE: Creatinine Date Value Ref Range Status 12/07/2023 1.06 0.73 - 1.22 mg/dL Final 07/17/2023 1.55 (H) 0.73 - 1.22 mg/dL Final 06/20/2023 1.05 0.73 - 1.22 mg/dL Final Estimated Glomerular Filtration Rate Date Value Ref Range Status 12/07/2023 73 >=60 mL/min/1.73m? Final Comment: Estimated Glomerular Filtration Rate (eGFR) is calculated using the 2020 CKD-EPI creatinine equation. This equation utilizes serum creatinine, sex, and age as parameters. The creatinine assay has traceable calibration to isotope dilution-mass spectrometry. Refer to KDIGO guidelines for clinical interpretation. In patients with unstable renal function, e.g. those with acute kidney injury, the eGFR may not accurately reflect actual GFR. eGFR- Date Value Ref Range Status 02/28/2021 >60 Final P.O.C.T. RESULTS: N/A December 21, [address] PERFORMED: No IV SITE: Ambulatory: A peripheral IV was started in the Right antecubital site with a Angio cath: 22 gauge. POST EXAM PIV STATUS: Discontinued PROCEDURE TYPE: [place] Stress: 9.2 mCi [id number] was administered IV for Rest Imaging at 7:54 by mm. 28.2 mCi As81q-Thuqxso was administered IV for Stress Imaging at 9:17 by mm. PATIENT DISCHARGED TO: Ambulatory patient, left [place] department area. A Diagnostic radioactive procedure has taken place, with no further precautions necessary other than routine body substance precautions. More information regarding radiation safety can be found using this link: [email or web address]%20Nuclear%20Medicine%[email or web address] SIGNATURE: JJ Rodgers PATIENT NAME: Homero Mei DATE: December 21, 2023 TIME: 8:02 AM [phone] Telephone encounter Note * Telephone Encounter - Jason Stewart RN - 12/20/2023 1:19 PM EDT Left message for patient with all instructions. [facility]10-[facility] Miscellaneous Notes* Telephone Encounter - Jason Stewart RN - 12/20/2023 1:19 PM EDT Left message for patient with all instructions. documented in this encounterAcmc Healthcare System10-30-2024 Telephone encounter Note * Telephone Encounter - Gege Rodrigse RN - 12/19/2023 11:05 AM EDT Faxed ov notes, lab results, ECG results, ECHO results to [facility], per Janie request. . [facility]10-30-2024 Miscellaneous Notes* Telephone Encounter - Gege Rodriges RN - 12/19/2023 11:05 AM EDT Faxed ov notes, lab results, ECG results, ECHO results to [facility], per Janie request. . documented in this encounterAcmc Healthcare System10-28-2024 Miscellaneous Notes* Telephone Encounter - Josette Pearson MA - 12/17/2023 4:18 PM EDT Son Indy returned called. Given message below and next appointment time scheduled with Kobe and verbalized understanding. * Telephone Encounter - Derek Robbins LPN - 12/17/2023 4:11 PM EDT Called Indy. No answer- did leave message. Requested that family accompany patient on next visit. Derek Robbins LPN * Telephone Encounter - Derek Robbins LPN - 12/17/2023 4:04 PM EDT Called patient. Verified name and date of . Patient reports being lost. States he went to [facility] and no urology providers located at that location. Patient informed urology appointment is at [facility]. Rescheduled his appointment. Reminder printed and mailed to patient.Derek Robbins LPN documented in this encounterAcmc Healthcare System10-28-2024 Telephone encounter Note * Telephone Encounter - Josette Pearson MA - 12/17/2023 4:18 PM EDT Nacho Moon returned called. Given message below and next appointment time scheduled with Kobe and verbalized understanding. [facility] Telephone encounter Note* Telephone Encounter - Derek Robbins LPN - 12/17/2023 4:11 PM EDT Called Indy. No answer- did leave message. Requested that family accompany patient on next visit. Derek Robbins LPN [facility]10-28-[facility] Telephone encounter Note* Telephone Encounter - Derek Robbins LPN - 12/17/2023 4:04 PM EDT Called patient. Verified name and date of . Patient reports being lost. States he went to [facility] and no urology providers located at that location. Patient informed urology appointment is at [facility]. Rescheduled his appointment. Reminder printed and mailed to patient.Derek Robbins LPN [facility]10-28-[facility] Telephone encounter Note* Telephone Encounter - Gege Rodriges RN - 12/17/2023 12:22 PM EDT Faxed recent ECG results to [facility] pre admission testing, per Janice request. [facility]-28-[facility] Miscellaneous Notes* Telephone Encounter - Gege Rodriges RN - 12/17/2023 12:22 PM EDT Faxed recent ECG results to [facility] pre admission testing, per Janice request. documented in this encounterAcmc Healthcare System10-25-2024 Telephone encounter Note * Telephone Encounter - Cata Guzman LPN - 12/14/2023 4:42 PM EDT Patients son notified and voiced understanding. Transferred to scheduling. [facility]10-25-[facility] Miscellaneous Notes* Telephone Encounter - Cata Guzman LPN - 12/14/2023 4:42 PM EDT Patients son notified and voiced understanding. Transferred to scheduling. * Telephone Encounter - Sylwia Nguyen LPN - 12/14/2023 9:58 AM EDT Left a message for son to call the office for results. Sylwia Nguyen LPN * Telephone Encounter - Lenin Chaudhary MD - 12/14/2023 8:39 AM EDT Patient's echo shows normal pumping function, no valve abnormalities. Aorta is borderline dilated which will need monitored with repeat CT or echo in 1 year. Noted mild pulmonary hypertension on this study as well. Recommend referral to cardiology for further evaluation and treatment discussion. documented in this encounterAcmc Healthcare System10-25-2024 Telephone encounter Note * Telephone Encounter - Sylwia Nguyen LPN - 12/14/2023 9:58 AM EDT Left a message for son to call the office for results. Sylwia Nguyen LPN [facility]10-25-2024 Telephone encounter Note* Telephone Encounter - Lenin Chaudhary MD - 12/14/2023 8:39 AM EDT Patient's echo shows normal pumping function, no valve abnormalities. Aorta is borderline dilated which will need monitored with repeat CT or echo in 1 year. Noted mild pulmonary hypertension on this study as well. Recommend referral to cardiology for further evaluation and treatment discussion. [facility] Miscellaneous Notes* Telephone Encounter - Sylwia Nguyen LPN - 12/13/2023 4:27 PM EDT Son called in to have the referral for Stress Test faxed over to [facility] [phone] to have done there. Orders were faxed to [facility] and referral placed. Sylwia Nguyen LPN documented in this encounterAcmc Healthcare System10-24-2024 Telephone encounter Note * Telephone Encounter - Sylwia Nguyen LPN - 12/13/2023 4:27 PM EDT Son called in to have the referral for Stress Test faxed over to [facility] [phone] to have done there. Orders were faxed to [facility] and referral placed. Sylwia Nguyen LPN [facility]10-23-2024 Telephone encounter Note* Telephone Encounter - Summer Fletcher RN - 12/12/2023 1:31 PM EDT Spoke to pt's son and nurse [facility] at shelter regarding reminder and instructions for stress test tomorrow. This included where to check in, length of test and no caffeine for 12 hours prior to test. [facility]10-23-[facility] Miscellaneous Notes* Telephone Encounter - Summer Fletcher RN - 12/12/2023 1:31 PM EDT Spoke to pt's son and nurse [facility] at shelter regarding reminder and instructions for stress test tomorrow. This included where to check in, length of test and no caffeine for 12 hours prior to test. documented in this encounterAcmc Healthcare System10-21-2024 Telephone encounter Note * Telephone Encounter - Nickie Hernández - 12/10/2023 2:26 PM EDT Patient has been scheduled for pharm stress test at [facility] on 12/13/23 (soonest available appointment within [facility]). Son will review NPO and medications to be held prior to test with nursing facility. Advised son to have nursing facility call [facility] to thoroughly discuss prep instructions so they can accommodate the patient's needs. Son reports that at this time, the echo is being set up at nursing facility. [facility] Miscellaneous Notes* Telephone Encounter - Nickie Hernández - 12/10/2023 2:26 PM EDT Patient has been scheduled for pharm stress test at [facility] on 12/13/23 (soonest available appointment within [facility]). Son will review NPO and medications to be held prior to test with nursing facility. Advised son to have nursing facility call [facility] to thoroughly discuss prep instructions so they can accommodate the patient's needs. Son reports that at this time, the echo is being set up at nursing facility. * Telephone Encounter - Arlyn Scott LPN - 12/10/2023 12:48 PM EDT Contacted patient's son Indy and reviewed results and recommendations. Also advised him patient didnot schedule stress test or echo following appointment due to him needing to coordinate transportation. Advised Indy that patient was to inform him of this but due to his memory was following up withjeff to make sure things got scheduled. He voiced understanding and will call scheduling desk. Arlyn Scott LPN * Telephone Encounter - Arlyn Scott LPN - 12/10/2023 12:44 PM EDT ----- Message from Lenin Chaudhary MD sent at 12/10/2023 11:29 AM EDT ----- Iron deficiency anemia and iron levels slowly improving. Continue iron supplement. Labs unremarkable otherwise. Awaiting stress test and echo results to clear for his surgery. documented in this encounterAcmc Healthcare System10-21-2024 Telephone encounter Note * Telephone Encounter - Arlyn Scott LPN - 12/10/2023 12:48 PM EDT Contacted patient's son Indy and reviewed results and recommendations. Also advised him patient didnot schedule stress test or echo following appointment due to him needing to coordinate transportation. Advised Indy that patient was to inform him of this but due to his memory was following up withjeff to make sure things got scheduled. He voiced understanding and will call scheduling desk. Arlyn Scott LPN [facility] Telephone encounter Note* Telephone Encounter - Arlyn Scott LPN - 12/10/2023 12:44 PM EDT ----- Message from Lenin Chaudhary MD sent at 12/10/2023 11:29 AM EDT ----- Iron deficiency anemia and iron levels slowly improving. Continue iron supplement. Labs unremarkable otherwise. Awaiting stress test and echo results to clear for his surgery. [facility] Telephone encounter Note* Telephone Encounter - Arlyn Scott LPN - 12/10/2023 11:31 AM EDT No call back received. OV completed 12/10/23. Arlyn Scott LPN [facility] Miscellaneous Notes* Telephone Encounter - Arlyn Scott LPN - 12/10/2023 11:31 AM EDT No call back received. OV completed 12/10/23. Arlyn Scott LPN * Telephone Encounter - Arlyn Scott LPN - 12/07/2023 12:12 PM EDT Patient here for Pre-op exam today and patient unsure of testing that Dr Sweeney may have ordered. Attempted to contact [facility] improvement coordinator, received VM and message left that EKG and labs would be completed today at visit since unable to verify if Patient has orders to complete this or if he has completed (patient has memory issues). Arlyn Scott LPN documented in this encounterAcmc Healthcare System10-18-2024 Telephone encounter Note * Telephone Encounter - Arlyn Scott LPN - 12/07/2023 12:12 PM EDT Patient here for Pre-op exam today and patient unsure of testing that Dr Sweeney may have ordered. Attempted to contact [facility] improvement coordinator, received VM and message left that EKG and labs would be completed today at visit since unable to verify if Patient has orders to complete this or if he has completed (patient has memory issues). Arlyn Scott LPN [facility]10-[facility] History of Present illness Narrative* Lenin Chaudhary MD - 12/07/2023 12:03 PM EDT Chief Complaint Patient presents with: Pre-Op Exam HPI Homero Mei is a 77 year old male who presents here today for Above Complaints.. Patient has been in good health without recent hospitalizations, ER visits, or falls. Patient residing at [facility]. Here today by himself despite history of alzheimer's dementia. Patient is scheduled to have right total hip replacement through Dr. Sweeney's office on 12/30 for osteoarthritis and pain. Patient is unsure, but procedure for this is typically completed under general anesthesia. He has not had any complications with anesthesia in the past. Pre op evaluation on 12/[address] Murray office. Denies fever/chills, weight loss, chest pain, SOB, palpitations, LE edema, claudication. Patient able to climb flight of stairs without chest pain or SOB (METS 5.5). compliant with regimen. BP well controlled today on current regimen. States that his readings at [facility] are similar to today's reading or lower. Past medical history, appointments, medications, allergies reviewed. Previous Medical History PAST MEDICAL HISTORY Diagnosis Date Alzheimer's dementia without behavioral disturbance, psychotic disturbance, mood disturbance, or anxiety, unspecified dementia severity, unspecified timing of dementia onset (HCC) Benign prostatic hyperplasia with urinary frequency Bilateral carpal tunnel syndrome s/p release on right Bilateral inguinal hernia s/p mesh BPH (benign prostatic hyperplasia) DDD (degenerative disc disease), lumbar resolved after discectomy Dementia (HCC) Depression Deviated septum s/p septoplasty Hyperlipidemia Iron deficiency anemia Irritable bowel syndrome 08/1997 improved Lipoma of neck left posterior neck CHRISTIANO (obstructive sleep apnea) [address] Bustamante Personal history of colonic polyps Scalp psoriasis Unspecified essential hypertension Upper GI bleed 05/2023 Vitamin D insufficiency Previous Surgical History PAST SURGICAL HISTORY Procedure Laterality Date BACK SURGERY HX COLON SURGERY HX COLONOSCOPY FLX DX W/COLLJ SPEC WHEN PFRMD , 11/19, 01/24, 01/29 COLONOSCOPY FLX DX W/COLLJ SPEC WHEN PFRMD 03/22/2015 Colonoscopy-repeat 5 years COLONOSCOPY FLX DX W/COLLJ SPEC WHEN PFRMD 11/23/2020 COLONOSCOPY GEN ANES 04/12/2020 Repeat in 1 year COLONOSCOPY GEN ANES 04/26/2020 3 polyps removed. 40 mm, 5 mm, 5mm. repeat in 6 months. DISKECTOMY, LUMBAR, SINGLE SP 2005 HERNIA REPAIR HX INGUINAL HERNIA REPAIR HX 07/19/2010 bilateral inguinal hernia repair with mesh NEUROPLASTY &/TRANSPOS MEDIAN NRV CARPAL TUNNE Right 03/26/2015 Carpal tunnel decomp right PAST SURGICAL HISTORY OF Left 04/10/2019 arthroscopic knee for torn meniscus RHINP PRIM LAT&ALAR CRTLGS&/ELVTN NASAL TI 2009 Rhinoplasty SKIN BIOPSY HX Family History FAMILY HISTORY Problem Relation Age of Onset Heart Mother CHF Hypertension Mother Stroke Father Hypertension Father Patient Allergies ALLERGIES No Active Allergies Current Medications Current Outpatient Medications on File Prior to Visit Medication Sig Cholecalciferol, Vitamin D3, 25 mcg (1,000 unit) cap Take 1 capsule by mouth once daily. vit C/E/Zn/coppr/lutein/zeaxan (PRESERVISION AREDS-2 ORAL) Take by mouth. latanoprost (XALATAN) 0.005 % ophthalmic solution 1 Drop daily at bedtime. acetaminophen (TYLENOL EXTRA STRENGTH) 500 mg tablet Take 500 mg by mouth every 8 hours as needed. tamsulosin (FLOMAX) 0.4 mg Take 1 capsule by mouth daily at bedtime. ferrous sulfate 325 mg (65 mg iron) tablet Take 325 mg by mouth three times a day. senna-docusate (SENNA-S) 8.6-50 mg per tablet Take 1 tablet by mouth once daily as needed for constipation. docusate sodium (COLACE) 100 mg capsule Take 1 capsule by mouth two times a day as needed for constipation. atorvastatin (LIPITOR) 20 mg tablet Take 1 tablet by mouth once daily. lisinopril (ZESTRIL) 40 mg tablet Take 1 tablet by mouth once daily. cyanocobalamin (VITAMIN B-12) 1,000 mcg tab Take 1 tablet by mouth once daily. donepezil (ARICEPT) 10 mg tablet Take 1 tablet by mouth daily with breakfast. fluticasone (FLONASE) 50 mcg/actuation nasal spray Use 2 Sprays in each nostril as needed. Rinse mouth after use. pantoprazole DR (PROTONIX) 40 mg tablet Take 40 mg by mouth two times a day. No current facility-administered medications on file prior to visit. Social History Social History Tobacco Use Smoking status: Never Smokeless tobacco: Never Vaping Use Vaping status: Never Used Substance Use Topics Alcohol use: No Drug use: No Review of Symptoms REVIEW OF SYSTEMS GENERAL: No weight loss, malaise or fevers RESPIRATORY: Negative for cough, hemoptysis, wheezing, COPD, dyspnea or shortness of breath CARDIOVASCULAR: Negative for chest pain, leg swelling, hypertension, CHF or palpitations GI: No nausea, vomiting, or diarrhea SKIN: Negative for lesions, rash, and itching EXAM: BP 132/84 Pulse 63 Temp 36.2 C (97.2 F) Resp 16 Wt 90 kg (198 lb 6.4 oz) SpO2 98% BMI 26.18 kg/m General Appearance: Well appearing, alert, in no acute distress, well-hydrated, well nourished.. Skin: Skin color, texture, turgor normal, no suspicious rashes or lesions. Lungs: Lungs clear to auscultation. No wheezing, rhonchi, rales.. Heart: RRR without murmur, gallop, or rubs. No ectopy. Abdomen: Normal abdominal exam, Abdomen soft, non-tender. Bowel sounds normal. No masses, organomegaly. Extremities: No deformities, edema, skin discoloration, clubbing or cyanosis. Good capillary refill. . Health Maintenance List BP Controlled (<130/80) due on 09/06/2022 RSV Vaccine(1 - 1-dose 75+ series) Never done Advance Directive Discussion due on 02/19/2023 Influenza Vaccine(1) due on 10/21/2023 Covid-19 Vaccine( season) due on 10/21/2023 Colorectal Cancer Screening due on 11/24/2023 Annual PCP Team Chronic Disease Visit due on 10/22/2024 Diabetes Screening due on 07/16/2026 DTaP,Tdap,Td Vaccine(3 - Td or Tdap) due on 09/06/2026 Lipid Screening due on 09/29/2026 Hepatitis C Screening Completed Shingrix Vaccine Completed Pneumococcal Vaccine: 65+ Completed Data reviewed EKG: NSR at 63 bpm, LAFB, Cannot rule out inferior infarct (Masked by fascicular block?); age undetermined; Poor-R wave progression, consider anterior infarct, lead placement, or normal variant. Abnormal EKG. ASSESSMENT/PLAN: 1. Pre-op evaluation - ICD9: V72.84, ICD10: Z01.818 (primary diagnosis) Patient with abnormal EKG today. Has risk factors for CAD including HTN, hyperlipidemia, CHRISTIANO. Will obtain echo and stress test prior to clearing for surgery. Will call with results. Continue current regimen. If labs and cardiac workup negative/normal, would clear for procedure. - ECG COMPLETE - COMPLETE BLOOD COUNT AND DIFFERENTIAL - COMPREHENSIVE METABOLIC PANEL 2. Primary osteoarthritis of right hip - ICD9: 715.15, ICD10: M16.11 See above. 3. Iron deficiency anemia secondary to inadequate dietary iron intake - ICD9: 280.1, ICD10: D50.8 Recheck levels. Continue daily supplement. - IRON AND TIBC - FERRITIN 4. Abnormal electrocardiogram - ICD9: 794.31, ICD10: R94.31 See above. - ECHO - NM CARDIAC PERF STRESS/PHARM Lenin Chaudhary MD documented in this encounterAcmc Healthcare System09-24-2024 Telephone encounter Note * Telephone Encounter - Angi Montana RN - 11/13/2023 9:08 AM EDT Rufina with [facility] called and is notified of providers message. She voices understanding. Angi Montana RN [facility]09-[facility]24 Miscellaneous Notes* Telephone Encounter - Angi Montana RN - 11/13/2023 9:08 AM EDT Rufina with [facility] called and is notified of providers message. She voices understanding. Angi Montana RN * Telephone Encounter - Lenin Chaudhary MD - 11/13/2023 9:02 AM EDT Rx sent. * Telephone Encounter - Marissa Black RN - 11/12/2023 2:59 PM EDT Nadia with [facility] calls to report that patient is scheduled to have total hip replacement on 12/18/2023 with [facility]. Nadia is requesting an order for Vitamin D, 1000 units be sent to [facility] per their recommendation from now until atleast 6 weeks post op if provider agrees. Patient scheduled for pre-op clearance 12/07/2023. Marissa Black RN documented in this encounterAcmc Healthcare System09-24-2024 Telephone encounter Note * Telephone Encounter - Lenin Chaudhary MD - 11/13/2023 9:02 AM EDT Rx sent. [facility] Telephone encounter Note* Telephone Encounter - Marissa Black RN - 11/12/2023 2:59 PM EDT Nadia with [facility] calls to report that patient is scheduled to have total hip replacement on 12/18/2023 with [facility]. Nadia is requesting an order for Vitamin D, 1000 units be sent to [facility] per their recommendation from now until atleast 6 weeks post op if provider agrees. Patient scheduled for pre-op clearance 12/07/2023. Marissa Black RN [facility]09-17-[facility] Telephone encounter Note* Telephone Encounter - Arlyn Scott LPN - 11/06/2023 3:52 PM EDT Phoned Rufina at [facility] and advised her that BP readings had been received and reviewed by provider and sent to scanning. Advised her if PCP had wanted any changes we would have notified them. Advised her if in the future they would like response back to request it. This were readings provider had requested so we expected them. She voiced understanding. Arlyn Scott LPN [facility]09-17-2024 Miscellaneous Notes* Telephone Encounter - Arlyn Scott LPN - 11/06/2023 3:52 PM EDT Phoned Rufina at [facility] and advised her that BP readings had been received and reviewed by provider and sent to scanning. Advised her if PCP had wanted any changes we would have notified them. Advised her if in the future they would like response back to request it. This were readings provider had requested so we expected them. She voiced understanding. Arlyn Scott LPN * Telephone Encounter - Angi Montana RN - 11/06/2023 3:41 PM EDT Rufina from [facility] called and was asking if providers office had received the BPs they had sent over last week and if provider had any new orders. I told her I didn't see anything in the computer. She is going to refax those to Dr Chaudhary's office. Please review and advise when office receives. documented in this encounterAcmc Healthcare System09-17-2024 Telephone encounter Note * Telephone Encounter - Angi Montana RN - 11/06/2023 3:41 PM EDT Rufina from [facility] called and was asking if providers office had received the BPs they had sent over last week and if provider had any new orders. I told her I didn't see anything in the computer. She is going to refax those to Dr Chaudhary's office. Please review and advise when office receives. [facility]09-16-2024 Instructions* Patient Instructions* Blaz, Kobe, CHEMICAL RESEARCH ENGINEER.POLISHING MACHINE TENDER, DNP - 11/05/2023 2:21 PM EDT Follow up with Kobe Rodriguez APRN.CNP, DNP in 4- 6 weeks at [facility]. Start a trial of Flomax Avoid bladder irritants - coffee, tea, cola drinks, chocolate, alcohol, artificial sweeteners and cigarettes Lower urinary tract symptoms suggestive of benign prostatic enlargement. I discussed treatment options at length including r/b/a of each: To include Medication therapy and the role of further evaluation with UDS, TRUS and cysto if indicated. Discussed the role of pharmacotherapy, including risks, benefits and alternatives: Alpha-darcy therapy [e.g. Tamsulosin] - potential risks of dizziness, asthenia, orthostasis, and retrograde ejaculation. Return to the clinic or seek care at [facility] for any worsening signs or symptoms: such as fevers, chills, worsening pain, gross blood in urine or worsening urinary symptoms. For severe symptoms seek care at the closest ER. Plan of care, medicaiton side effects and management reviewed with patient. Healthy Habits: Recommend regular physical activity, nutrition and healthy eating habits. Consume a variety of foods every day focusing on fruits, vegetables and lean meats). Eat foods low in fat, saturated fat and cholesterol. Eat a limited amount of salt and sodium. Drink adequate amounts of water and limit sugary drinks. Exercise portion control in meal selection. Establish a mindset of a wellness approach to health. Thank you for allowing me to provide your care today. I look forward to seeing you again and maintaining your health. Kobe Rodriguez APRN.CNP, DNP documented in this encounterAcmc Healthcare System09-16-2024 History of Present illness Narrative* Kobe Rodriguez APRN.CNP, DNP - 11/05/2023 1:52 PM EDT [facility] MALE PATIENT - HISTORY AND PHYSICAL EXAMINATION PATIENT: Homero Mei (77 year old) PCP: Lenin Chaudhary MD CHIEF COMPLAINT: BPH/LUTS follow up HISTORY OF PRESENT ILLNESS: 77 year old year old male with BPH/LUTS follow up Past med Hx: BPH, CTS, CHRITSIANO, HLD, HTN, PAM, VIT D def. Son present today for appt. Seen Dr. Laurent in June 2023 for BPH, UTI and UR. Started on Flomax. Had dizziness. Stopped Flomax. Here for follow up. Unsure how long he did take Flomax or the severity of the dizziness. Not wearing pads. PRESENTING HISTORY: Hematuria: gross Obstructive voiding symptoms: weak stream. Irritative voiding symptoms: frequency and nocturia Urinary retention: no Urinary incontinence: no Urinary tract infection: no PSA PSA Screening Latest Ref Rng 0.00 - 2.59 ng/mL 0.00 - 2.59 ng/mL 05/16/2013 1.41 05/20/2014 1.27 06/05/2018 1.77 12/08/2019 0.95 06/30/2020 1.06 Patient Entered Questionnaires: INTERNATIONAL PROSTATE SYMPTOM SCORE (I-PSS) 1)INCOMPLETE EMPTYING Over the past month, how often have you had a sensation of not emptying your bladder completely after you finished urinating? SCORE: 1- Less than 1 time in 5 2)FREQUENCY Over the past month, how often have you had to urinate again less than two hours after you finishedurinating? SCORE: 2- less than half the time 3)INTERMITTENCY Over the past month, how often have you found you stopped and started again several times when you urinated? SCORE: 2- less than half the time 4)URGENCY Over the past month, how often have you found it difficult to postpone urination? SCORE: 1- Less than 1 time in 5 5)WEAK STREAM Over the past month, how often have you had a weak stream? SCORE: 2- less than half the time 6)STRAINING Over the past month, how often have you had to push or strain to begin urination SCORE: 0- Not at all 7)NOCTURIA Over the past month, how many times did you most typically get up to urinate from the time you wentto bed at night until the time you get up in the morning? SCORE:3 TOTAL I-PSS SCORE: 11 QUALITY OF LIFE DUE TO URINARY SYMPTOMS If you were to spend the rest of yur life with your urinary condition just the way it is now, how would you feel about that? 4- Mostly dissatisfied PROMIS Global Health 12/16/2019 12/12/2021 PROMIS Global Health Scale Physical Health Percentile 78 66 Mental Health Percentile 82 Percentiles provide an indication of how the patient's score ranks in relation to the general population. Higher percentile rankings indicate better function/quality of life. 50th percentile is the average of the general population and indicates half of respondents had a worse score. HISTORY: PAST MEDICAL HISTORY Diagnosis Date Bilateral carpal tunnel syndrome s/p release on right Bilateral inguinal hernia s/p mesh BPH (benign prostatic hyperplasia) DDD (degenerative disc disease), lumbar resolved after discectomy Dementia (HCC) Depression Deviated septum s/p septoplasty Hyperlipidemia Iron deficiency anemia Irritable bowel syndrome 08/1997 improved Lipoma of neck left posterior neck CHRISTIANO (obstructive sleep apnea) [address] Bustamante Personal history of colonic polyps Scalp psoriasis Unspecified essential hypertension Upper GI bleed 05/2023 Vitamin D insufficiency PAST SURGICAL HISTORY Procedure Laterality Date BACK SURGERY HX COLON SURGERY HX COLONOSCOPY FLX DX W/COLLJ SPEC WHEN PFRMD , 11/19, 01/24, 01/29 COLONOSCOPY FLX DX W/COLLJ SPEC WHEN PFRMD 03/22/2015 Colonoscopy-repeat 5 years COLONOSCOPY FLX DX W/COLLJ SPEC WHEN PFRMD 11/23/2020 COLONOSCOPY GEN ANES 04/12/2020 Repeat in 1 year COLONOSCOPY GEN ANES 04/26/2020 3 polyps removed. 40 mm, 5 mm, 5mm. repeat in 6 months. DISKECTOMY, LUMBAR, SINGLE SP 2006 HERNIA REPAIR HX INGUINAL HERNIA REPAIR HX 07/19/2010 bilateral inguinal hernia repair with mesh NEUROPLASTY &/TRANSPOS MEDIAN NRV CARPAL TUNNE Right 03/26/2015 Carpal tunnel decomp right PAST SURGICAL HISTORY OF Left 04/10/2019 arthroscopic knee for torn meniscus RHINP PRIM LAT&ALAR CRTLGS&/ELVTN NASAL TI 2009 Rhinoplasty SKIN BIOPSY HX Social History Tobacco Use Smoking status: Never Smokeless tobacco: Never Vaping Use Vaping status: Never Used Substance Use Topics Alcohol use: No Drug use: No FAMILY HISTORY Problem Relation Age of Onset Heart Mother CHF Hypertension Mother Stroke Father Hypertension Father MEDICATIONS: Current Outpatient Medications Medication Sig vit C/E/Zn/coppr/lutein/zeaxan (PRESERVISION AREDS-2 ORAL) Take by mouth. latanoprost (XALATAN) 0.005 % ophthalmic solution 1 Drop daily at bedtime. acetaminophen (TYLENOL EXTRA STRENGTH) 500 mg tablet Take 500 mg by mouth every 8 hours as needed. ferrous sulfate 325 mg (65 mg iron) tablet Take 325 mg by mouth three times a day. senna-docusate (SENNA-S) 8.6-50 mg per tablet Take 1 tablet by mouth once daily as needed for constipation. docusate sodium (COLACE) 100 mg capsule Take 1 capsule by mouth two times a day as needed for constipation. atorvastatin (LIPITOR) 20 mg tablet Take 1 tablet by mouth once daily. lisinopril (ZESTRIL) 40 mg tablet Take 1 tablet by mouth once daily. cyanocobalamin (VITAMIN B-12) 1,000 mcg tab Take 1 tablet by mouth once daily. donepezil (ARICEPT) 10 mg tablet Take 1 tablet by mouth daily with breakfast. fluticasone (FLONASE) 50 mcg/actuation nasal spray Use 2 Sprays in each nostril as needed. Rinse mouth after use. pantoprazole DR (PROTONIX) 40 mg tablet Take 40 mg by mouth two times a day. tamsulosin (FLOMAX) 0.4 mg Take 1 capsule by mouth daily at bedtime. No current facility-administered medications for this visit. LABS: Latest Ref Rng 11/05/2023 GLUCOSE UA (POCT) Negative mg/dL Negative BILIRUBIN UA (POCT) Negative Negative KETONE UA (POCT) Negative mg/dL Trace SPECIFIC GRAVITY UA (POCT) 1.005 - 1.030 1.020 HEMOGLOBIN/BLOOD UA (POCT) Negative Negative PH UA (POCT) 4.5 - 8.0 6.0 PROTEIN UA (POCT) Negative mg/dL Negative UROBILINOGEN UA (POCT) Normal E.U./dL 0.2 NITRITE UA (POCT) Negative Negative LEUKOCYTES UA (POCT) Negative Negative COLOR UA (POCT) Yellow CLARITY UA (POCT) Clear GLUCOSE UA (POCT) Negative 08/02/2023 BILIRUBIN UA (POCT) Negative 08/02/2023 KETONE UA (POCT) Negative 08/02/2023 SPECIFIC GRAVITY UA (POCT) 1.020 08/02/2023 HEMOGLOBIN/BLOOD UA (POCT) Negative 08/02/2023 PH UA (POCT) 7.0 08/02/2023 PROTEIN UA (POCT) Negative 08/02/2023 UROBILINOGEN UA (POCT) 0.2 08/02/2023 NITRITE UA (POCT) Negative 08/02/2023 LEUKOCYTES UA (POCT) Negative 08/02/2023 COLOR UA (POCT) Yellow 08/02/2023 CLARITY UA (POCT) Clear 08/02/2023 Creatinine Creatinine Date Value Ref Range Status 07/17/2023 1.55 (H) 0.73 - 1.22 mg/dL Final 06/20/2023 1.05 0.73 - 1.22 mg/dL Final 01/15/2023 1.12 0.73 - 1.22 mg/dL Final 06/21/2022 0.95 0.73 - 1.22 mg/dL Final PSA PSA (ng/mL) Date Value 06/05/2018 1.77 05/20/2014 1.27 05/16/2013 1.41 PSA Screening (ng/mL) Date Value 06/30/2020 1.06 12/08/2019 0.95 OFFICE DATA: POST-VOID RESIDUAL BLADDER VOLUME: YES, 0 cc IMAGING: No results found. Review of Systems: PAIN ASSESSMENT: CURRENTLY HAVING NO PAIN GENERAL: No weight loss, malaise or fevers GI: No nausea, vomiting MUSCULOSKELETAL: Negative for generalized joint pain SKIN: Negative for rash HEMATOLOGY/LYMPHOLOGY: Negative for swollen nodes All other systems reviewed and noncontributory PHYSICAL EXAMINATION: VITALS: Ht 185.4 cm (6' 1) Wt 88.8 kg (195 lb 11.2 oz) BMI 25.82 kg/m GENERAL: alert, no distress, normal affect RESPIRATORY: normal effort EXTREMITIES: normal SKIN: normal NEUROLOGIC: normal ASSESSMENT and PLAN 1. Benign prostatic hyperplasia with urinary frequency - ICD9: 600.01, 788.41, ICD10: N40.1, R35.0 (primary diagnosis) 77y/o male with dementia and BPH. Here for follow up appointment, NTF and frequency noted. Previously on Flomax unclear for how long, possible SE from Flomax in dizziness. The patient has lower urinary tract symptoms suggestive of benign prostatic hyperplasia. To call urology if has SE from Flomax. Would consider Uroxatral or finasteride. Or set up for Cysto TRUS. Son was agreeable to plan. Resides in assisted living. PVR = 0 ml UA = neg I discussed treatment options at length including r/b/a of each. I also discussed the role of further evaluation with UDS, TRUS and cysto if indicated. Discussed the role of pharmacotherapy, including risks, benefits and alternatives: Alpha-darcy therapy [e.g. Tamsulosin] - potential risks of dizziness, asthenia, orthostasis, and retrograde ejaculation. Plan: Restart a trial of Flomax Avoid bladder irritants - coffee, tea, cola drinks, chocolate, alcohol, artificial sweeteners and cigarettes - BLADDER SCAN - TAMSULOSIN 0.4 MG CAPSULE - UA DIP back office 2. Alzheimer's dementia without behavioral disturbance, psychotic disturbance, mood disturbance, oranxiety, unspecified dementia severity, unspecified timing of dementia onset (HCC) - ICD9: 331.0, 294.10, ICD10: G30.9, F02.80 Cont follow up with Lenin Chaudhary MD Stable. His MCI complicates the picture of his urinary symptoms. Kobe Rodriguez DNP, TADEO Department of Urology [facility] documented in this encounterAcmc [facility] System09-16-2024 Nurse Note* Jamilah Bonner MA - 11/05/2023 1:51 PM EDT After voiding, patient had 0 ml remaining on the bladder scan. [facility]09-16-2024 Nurse Note* Jamilah Bonner MA - 11/05/2023 1:51 PM EDT After voiding, patient had 0 ml remaining on the bladder scan. documented in this encounterAcmc Healthcare System09-03-2024 Telephone encounter Note * Telephone Encounter - Arlyn Scott LPN - 10/23/2023 1:27 PM EDT Patient in today for 3 month follow up with PCP orders clarified. Arlyn Scott LPN [facility]09-03-2024 Miscellaneous Notes* Telephone Encounter - Arlyn Scott LPN - 10/23/2023 1:27 PM EDT Patient in today for 3 month follow up with PCP orders clarified. Arlny Scott LPN * Telephone Encounter - Isaura Haji LPN - 10/19/2023 3:44 PM EDT Spoke with July Richards and order is to read as one tablet by mouth once daily as needed for constipation. Called [facility] pharmacy and spoke to pharmacist Lyric. Given verbal order. Lyric read back order. Isaura Haji LPN * Telephone Encounter - Gege Rodriges, KATELYN - 10/19/2023 2:35 PM EDT [facility] pharmacy asking for clarification on the Rx: Senna-S 8.6-50 mg. The Rx has 2 different instructions. Asking office to phone them to let them know which instructions to use. [phone] * Telephone Encounter - July Richards APRN.CNP - 10/19/2023 1:53 PM EDT I will send over prescription. If not improving will need to come into office. Encourage patient todrink at least 64 ounces of water daily. July Richards APRN.CNP * Telephone Encounter - Alyssa Valentin LPN - 10/19/2023 1:09 PM EDT Prachi from [facility] calling patient is taking Ferrous Sulfate 325 mg one tablet three times daily ordered from Dr Diaz [facility]. Patient is taking docusate sodium twice daily and not helping. He has not had a bowel movement for few days. Asking if could add Senna-S and if rx could be sent to [facility] pharmacy so could be started tonight? Please advise documented in this encounterAcmc Healthcare System09-03-2024 History of Present illness Narrative* Lenin Chaudhary MD - 10/23/2023 10:15 AM EDT Chief Complaint Patient presents with: Follow Up: 3 month HPI Homero Mei is a 77 year old male who presents here today for Above Complaints. Accompanied today by his Daughter in law Billy. History provided by patient and DIL due to patient's history of dementia. Billy is not his legal guardian and this will need updated in his chart. Residing at [facility] in assisted living. Daughter states that his memory seems to be improved since he has transitioned to assisted living. Taking Aricept without side effects. Notes he has also been eating meals more regularly. Patient notes that he had a steroid injection in his right knee on 10/[address] Arteaga for arthritis. Pain is improved from the injection, but still up to 6/10 pain with ambulation. Referred to PT which he is attending as recommended. Has f/u appointment scheduled. Patient is on ferrous sulfate BID instead of TID due to constipation. Taking this for iron deficiency anemia after GI bleed as ordered by Dr. Diaz's office. Has rx for Senna on a PRN basis which works well for symptoms of constipation. Is not needing this daily. BP elevated here today on current regimen. Patient reports that his BP has not been running high atthe assisted living and they check it daily. Readings sent on 10/19 showed typically 110-138/60-70's. BPH: Patient getting up 2-3 times per night to urinate since we stopped his flomax due to dizziness. Denies UTI symptoms. Not interested in new rx at this time. Past medical history, appointments, medications, allergies reviewed. Previous Medical History PAST MEDICAL HISTORY No date: Bilateral carpal tunnel syndrome Comment: s/p release on right No date: Bilateral inguinal hernia Comment: s/p mesh No date: BPH (benign prostatic hyperplasia) No date: DDD (degenerative disc disease), lumbar Comment: resolved after discectomy No date: Dementia (HCC) No date: Depression No date: Deviated septum Comment: s/p septoplasty No date: Hyperlipidemia No date: Iron deficiency anemia 08/1997: Irritable bowel syndrome Comment: improved No date: Lipoma of neck Comment: left posterior neck 2012: CHRISTIANO (obstructive sleep apnea) Comment: mild. Dr. Bustamante No date: Personal history of colonic polyps No date: Scalp psoriasis No date: Unspecified essential hypertension 05/2023: Upper GI bleed No date: Vitamin D insufficiency Previous Surgical History PAST SURGICAL HISTORY No date: BACK SURGERY HX No date: COLON SURGERY HX , 11/19, 01/24, 01/29: COLONOSCOPY FLX DX W/COLLJ SPEC WHEN PFRMD 03/22/2015: COLONOSCOPY FLX DX W/COLLJ SPEC WHEN PFRMD Comment: Colonoscopy-repeat 5 years 11/23/2020: COLONOSCOPY FLX DX W/COLLJ SPEC WHEN PFRMD 04/12/2020: COLONOSCOPY GEN ANES Comment: Repeat in 1 year 04/26/2020: COLONOSCOPY GEN ANES Comment: 3 polyps removed. 40 mm, 5 mm, 5mm. repeat in 6 months. 2006: DISKECTOMY, LUMBAR, SINGLE SP No date: HERNIA REPAIR HX 07/19/2010: INGUINAL HERNIA REPAIR HX Comment: bilateral inguinal hernia repair with mesh 03/26/2015: NEUROPLASTY &/TRANSPOS MEDIAN NRV CARPAL TUNNE; Right Comment: Carpal tunnel decomp right 04/10/2019: PAST SURGICAL HISTORY OF; Left Comment: arthroscopic knee for torn meniscus 2009: RHINP PRIM LAT&ALAR CRTLGS&/ELVTN NASAL TI Comment: Rhinoplasty No date: SKIN BIOPSY HX Family History FAMILY HISTORY Problem Relation Age of Onset Heart Mother CHF Hypertension Mother Stroke Father Hypertension Father Patient Allergies ALLERGIES No Known Allergies Current Medications Current Outpatient Medications on File Prior to Visit Medication Sig ferrous sulfate 325 mg (65 mg iron) tablet Take 325 mg by mouth three times a day. senna-docusate (SENNA-S) 8.6-50 mg per tablet Take 1 tablet by mouth once daily. Take on tablet daily as needed for constipation docusate sodium (COLACE) 100 mg capsule Take 1 capsule by mouth two times a day as needed for constipation. atorvastatin (LIPITOR) 20 mg tablet Take 1 tablet by mouth once daily. lisinopril (ZESTRIL) 40 mg tablet Take 1 tablet by mouth once daily. cyanocobalamin (VITAMIN B-12) 1,000 mcg tab Take 1 tablet by mouth once daily. donepezil (ARICEPT) 10 mg tablet Take 1 tablet by mouth daily with breakfast. fluticasone (FLONASE) 50 mcg/actuation nasal spray Use 2 Sprays in each nostril as needed. Rinse mouth after use. pantoprazole DR (PROTONIX) 40 mg tablet Take 40 mg by mouth two times a day. sertraline (ZOLOFT) 25 mg tablet Take 1 tablet every other day for 2 weeks, then every 3rd day for 2 weeks, then stop No current facility-administered medications on file prior to visit. Social History Social History Tobacco Use Smoking status: Never Smokeless tobacco: Never Substance Use Topics Alcohol use: No Drug use: No Review of Symptoms REVIEW OF SYSTEMS GENERAL: No weight loss, malaise or fevers RESPIRATORY: Negative for cough, hemoptysis, wheezing, COPD, dyspnea or shortness of breath CARDIOVASCULAR: Negative for chest pain, leg swelling, hypertension, CHF or palpitations GI: No nausea, vomiting, or diarrhea SKIN: Negative for lesions, rash, and itching EXAM: BP 148/96 Pulse 63 Resp 16 Wt 90.3 kg (199 lb) SpO2 97% BMI 26.25 kg/m General Appearance: Well appearing, alert, in no acute distress, well-hydrated, well nourished.. Skin: Skin color, texture, turgor normal, no suspicious rashes or lesions. Lungs: Lungs clear to auscultation. No wheezing, rhonchi, rales.. Heart: RRR without murmur, gallop, or rubs. No ectopy. Abdomen: Normal abdominal exam, Abdomen soft, non-tender. Bowel sounds normal. No masses, organomegaly. Extremities: No deformities, edema, skin discoloration, clubbing or cyanosis. Good capillary refill. . Health Maintenance List RSV Vaccine(1 - 1-dose 60+ series) Never done Advance Directive Discussion due on 02/19/2023 Covid-19 Vaccine( season) due on 10/21/2023 Influenza Vaccine(1) due on 10/21/2023 Colorectal Cancer Screening due on 11/24/2023 Annual PCP Team Chronic Disease Visit due on 08/16/2024 BP Controlled (<130/80) due on 08/16/2024 Diabetes Screening due on 07/16/2026 DTaP,Tdap,Td Vaccine(3 - Td or Tdap) due on 09/06/2026 Lipid Screening due on 09/29/2026 Hepatitis C Screening Completed Shingrix Vaccine Completed Pneumococcal Vaccine: 65+ Completed Data reviewed Latest Ref Rng 07/17/2023 08/02/2023 Protein, Total 6.3 - 8.0 g/dL 6.9 Albumin 3.9 - 4.9 g/dL 4.2 Calcium 8.5 - 10.2 mg/dL 9.4 Bilirubin, Total 0.2 - 1.3 mg/dL 0.3 Alkaline Phosphatase 38 - 113 U/L 85 AST 14 - 40 U/L 9 (L) ALT 10 - 54 U/L 12 Glucose 74 - 99 mg/dL 102 (H) BUN 9 - 24 mg/dL 33 (H) Creatinine 0.73 - 1.22 mg/dL 1.55 (H) Sodium 136 - 144 mmol/L 136 Potassium 3.7 - 5.1 mmol/L 4.7 Chloride 97 - 105 mmol/L 100 CO2 22 - 30 mmol/L 23 Anion Gap 9 - 18 mmol/L 13 eGFR >=60 mL/min/1.73m 46 (L) GLUCOSE UA (POCT) Negative mg/dL Negative BILIRUBIN UA (POCT) Negative Negative KETONE UA (POCT) Negative mg/dL Negative SPECIFIC GRAVITY UA (POCT) 1.005 - 1.030 1.020 HEMOGLOBIN/BLOOD UA (POCT) Negative Negative PH UA (POCT) 4.5 - 8.0 7.0 PROTEIN UA (POCT) Negative mg/dL Negative UROBILINOGEN UA (POCT) Normal E.U./dL 0.2 NITRITE UA (POCT) Negative Negative LEUKOCYTES UA (POCT) Negative Negative COLOR UA (POCT) Yellow CLARITY UA (POCT) Clear Iron 41 - 186 ug/dL 29 (L) TIBC 232 - 386 ug/dL 351 Transferrin Saturation 15.0 - 57.0 % 8.3 (L) Ferritin 30.3 - 565.7 ng/mL 32.7 Legend: (L) Low (H) High ASSESSMENT/PLAN: 1. Alzheimer's dementia without behavioral disturbance, psychotic disturbance, mood disturbance, oranxiety, unspecified dementia severity, unspecified timing of dementia onset (HCC) - ICD9: 331.0, 294.10, ICD10: G30.9, F02.80 (primary diagnosis) Improved with Aricept and switch to assisted living. No changes in regimen. Recheck in 3 months. 2. Essential hypertension - ICD9: 401.9, ICD10: I10 - Home blood pressure readings controlled - Continue current medications - Recommend home blood pressure monitoring, to bring results to next visit - Encouraged sodium restriction, DASH or Mediterranean diet - Recommend regular aerobic exercise 3. Mixed hyperlipidemia - ICD9: 272.2, ICD10: E78.2 - Continue current medications - Counseled on healthy diet and regular exercise 4. CHRISTIANO on CPAP - ICD9: 327.23, ICD10: G47.33 Referred to sleep medicine at previous OV as he could not tolerate CPAP. Recommend f/u as ordered. 5. Iron deficiency anemia secondary to inadequate dietary iron intake - ICD9: 280.1, ICD10: D50.8 Continue BID iron supplement. Labs from August showed persistently low iron. Denies bleeding symptoms. Will f/u GI recommendations. 6. Benign prostatic hyperplasia, unspecified whether lower urinary tract symptoms present - ICD9: 600.00, ICD10: N40.0 Has nocturia 2-3 times per night without rx. Not interested in new medication today. Discussed stopping fluids 2-3 hours before bed. 7. Arthritis of knee - ICD9: 716.96, ICD10: M17.10 Improved with steroid injection. F/u with ortho as scheduled. Lenin Chaudhary MD documented in this encounterAcmc Healthcare System08-30-2024 Telephone encounter Note * Telephone Encounter - Isaura Haji LPN - 10/19/2023 3:44 PM EDT Spoke with July Richards and order is to read as one tablet by mouth once daily as needed for constipation. Called [facility] pharmacy and spoke to pharmacist Lyric. Given verbal order. Lyric read back order. Isaura Haji LPN [facility]08-30-2024 Telephone encounter Note* Telephone Encounter - Gege Rodriges RN - 10/19/2023 2:35 PM EDT [facility] pharmacy asking for clarification on the Rx: Senna-S 8.6-50 mg. The Rx has 2 different instructions. Asking office to phone them to let them know which instructions to use. [phone] [facility]08-30-2024 Telephone encounter Note* Telephone Encounter - July Richards APRN.CNP - 10/19/2023 1:53 PM EDT I will send over prescription. If not improving will need to come into office. Encourage patient todrink at least 64 ounces of water daily. July Richards APRN.TADEO [facility]08-30-2024 Telephone encounter Note* Telephone Encounter - Alyssa Valentin LPN - 10/19/2023 1:09 PM EDT Prachi from [facility] calling patient is taking Ferrous Sulfate 325 mg one tablet three times daily ordered from Dr Marianne Kearney. Patient is taking docusate sodium twice daily and not helping. He has not had a bowel movement for few days. Asking if could add Senna-S and if rx could be sent to [facility] pharmacy so could be started tonight? Please advise [facility]08-23-2024 Telephone encounter Note* Telephone Encounter - Isaura Haji LPN - 10/12/2023 11:54 AM EDT Fax signed by provider and faxed back to [facility] at [phone]. Isaura Haji LPN [facility]08-23-2024 Miscellaneous Notes* Telephone Encounter - Isaura Haji LPN - 10/12/2023 11:54 AM EDT Fax signed by provider and faxed back to [facility] at [phone]. Isaura Haji LPN * Telephone Encounter - Lenin Chaudhary MD - 10/11/2023 12:18 PM EDT [facility] requesting rx for PRN stool softener for patient. documented in this encounterAcmc Healthcare System08-22-2024 Telephone encounter Note * Telephone Encounter - Lenin Chaudhary MD - 10/11/2023 12:18 PM EDT [facility] requesting rx for PRN stool softener for patient. [facility]08-16-2024 Telephone encounter Note* Telephone Encounter - Arlyn Scott LPN - 10/05/2023 12:16 PM EDT No. This is complete. Arlyn Scott LPN [facility]08-16-2024 Miscellaneous Notes* Telephone Encounter - Arlyn Scott LPN - 10/05/2023 12:16 PM EDT No. This is complete. Arlyn Scott LPN * Telephone Encounter - Lenin Chaudhary MD - 10/05/2023 9:58 AM EDT Anything else you need for this? * Telephone Encounter - Arlyn Scott LPN - 10/04/2023 4:28 PM EDT Noted fax was received regarding med error and was reviewed by PCP and faxed back 10/04/23 at 3:17pm. Arlyn Scott LPN * Telephone Encounter - Arlyn Scott LPN - 10/04/2023 4:00 PM EDT Was given DON's cell number d/t having difficulty getting floor nurse to answer. Contacted her and advised of correct order. She stated no one changed order she stated patient was admitted last week and possibly those were hospital orders that were incorrect. She then asked if we received med errorreport that was sent yesterday? Patient apparently was given all 6 tabs from his medrol pack. I advi sed I wasn't aware of this but would look for report. She reports patient is doing well and has no c/o. Advised would forward info to PCP. Arlyn Scott LPN * Telephone Encounter - Lenin Chaudhary MD - 10/04/2023 1:35 PM EDT I have him taking ferrous sulfate every 48 hours, not 3 times per day. Did another physician changethis order? I would order labs at f/u in a couple weeks. * Telephone Encounter - Alyssa Valentin LPN - 10/04/2023 1:06 PM EDT Prachi from [facility] calling she has order for patient to get ferrous sulfate 325 mg one tablet three times daily, patient keeps questioning nurse that it is too much. Patient will need new rx sent to [facility] pharmacy. She is also asking if PCP wants any labs done? They have a lab that comes on Sunday to draw if needed. Would need to fax order to [phone]. Please advise documented in this encounterAcmc Healthcare System08-16-2024 Telephone encounter Note * Telephone Encounter - Lenin Chaudhary MD - 10/05/2023 9:58 AM EDT Anything else you need for this? [facility]08-15-2024 Telephone encounter Note* Telephone Encounter - Arlyn Scott LPN - 10/04/2023 4:28 PM EDT Noted fax was received regarding med error and was reviewed by PCP and faxed back 10/04/23 at 3:17pm. Arlyn Scott LPN [facility]08-15-2024 Telephone encounter Note* Telephone Encounter - Arlyn Scott LPN - 10/04/2023 4:00 PM EDT Was given DON's cell number d/t having difficulty getting floor nurse to answer. Contacted her and advised of correct order. She stated no one changed order she stated patient was admitted last week and possibly those were hospital orders that were incorrect. She then asked if we received med errorreport that was sent yesterday? Patient apparently was given all 6 tabs from his medrol pack. I advi sed I wasn't aware of this but would look for report. She reports patient is doing well and has no c/o. Advised would forward info to PCP. Arlyn Scott LPN [facility]08-15-2024 Telephone encounter Note* Telephone Encounter - Lenin Chaudhary MD - 10/04/2023 1:35 PM EDT I have him taking ferrous sulfate every 48 hours, not 3 times per day. Did another physician changethis order? I would order labs at f/u in a couple weeks. [facility]08-15-2024 Telephone encounter Note* Telephone Encounter - Alyssa Valentin LPN - 10/04/2023 1:06 PM EDT Prachi from [facility] calling she has order for patient to get ferrous sulfate 325 mg one tablet three times daily, patient keeps questioning nurse that it is too much. Patient will need new rx sent to [facility] pharmacy. She is also asking if PCP wants any labs done? They have a lab that comes on Sunday to draw if needed. Would need to fax order to [phone]. Please advise [facility]08-06-2024 Telephone encounter Note* Telephone Encounter - Sylwia Nguyen LPN - 09/25/2023 2:28 PM EDT Rufina with [facility] called to get a med list and verify meds. Pt just moved in there today 09-25-23. Identified pt with name and date of . FAX: [phone] Done. Sylwia Nguyen LPN [facility]08-06-2024 Miscellaneous Notes* Telephone Encounter - Sylwia Nguyen LPN - 09/25/2023 2:28 PM EDT Rufina with [facility] called to get a med list and verify meds. Pt just moved in there today 09-25-23. Identified pt with name and date of . FAX: [phone] Done. Sylwia Nguyen LPN documented in this encounterAcmc Healthcare System08-06-2024 Telephone encounter Note * Telephone Encounter - Marissa Black RN - 09/25/2023 10:02 AM EDT The patient has been identified by name and date of : Yes Caregiver verified no other encounters exist for this prescription request: Yes Caregiver confirmed with patient/requestor that no other refills are due, in the near future, with this provider at this time: Yes The last office visit in the department: 08/17/2023 Does the patient have a future office visit with this provider/department: Yes 10/23/2023 Requested Prescriptions Pending Prescriptions Disp Refills atorvastatin (LIPITOR) 20 mg tablet 90 tablet 1 Sig: Take 1 tablet by mouth once daily. lisinopril (ZESTRIL) 40 mg tablet 90 tablet 1 Sig: Take 1 tablet by mouth once daily. [facility] reports there refills are a month ahead for pill packaging. Marissa Black RN September 25, 2023 10:07 AM [facility]-06-2024 Miscellaneous Notes* Telephone Encounter - Marissa Black RN - 09/25/2023 10:02 AM EDT The patient has been identified by name and date of : Yes Caregiver verified no other encounters exist for this prescription request: Yes Caregiver confirmed with patient/requestor that no other refills are due, in the near future, with this provider at this time: Yes The last office visit in the department: 08/17/2023 Does the patient have a future office visit with this provider/department: Yes 10/23/2023 Requested Prescriptions Pending Prescriptions Disp Refills atorvastatin (LIPITOR) 20 mg tablet 90 tablet 1 Sig: Take 1 tablet by mouth once daily. lisinopril (ZESTRIL) 40 mg tablet 90 tablet 1 Sig: Take 1 tablet by mouth once daily. [facility] reports there refills are a month ahead for pill packaging. Marissa Black RN September 25, 2023 10:07 AM documented in this encounterAcmc Healthcare System08-02-2024 Telephone encounter Note * Telephone Encounter - Saranya Kaur LPN - 09/21/2023 2:50 PM EDT Patient has been identified by name and date of : Pharmacy phones for refill(s): Requested Prescriptions Pending Prescriptions Disp Refills cyanocobalamin (VITAMIN B-12) 1,000 mcg tab 30 tablet 2 Sig: Take 1 tablet by mouth once daily. Date of last office visit in primary care: 08/17/2023 Date of next office visit in primary care: 10/23/2023 Please advise. Thank you. Saranya Kaur LPN. [facility] Work Phone: 1(676) 643-484908-02-2024 Miscellaneous Notes* Telephone Encounter - Saranya Kaur LPN - 09/21/2023 2:50 PM EDT Patient has been identified by name and date of : Pharmacy phones for refill(s): Requested Prescriptions Pending Prescriptions Disp Refills cyanocobalamin (VITAMIN B-12) 1,000 mcg tab 30 tablet 2 Sig: Take 1 tablet by mouth once daily. Date of last office visit in primary care: 08/17/2023 Date of next office visit in primary care: 10/23/2023 Please advise. Thank you. Saranya Kaur LPN. documented in this encounterAcmc Healthcare System07-26-2024 Telephone encounter Note * Telephone Encounter - Tawana Hopkins RN - 09/14/2023 9:59 AM EDT Billy called and notified of below. Billy voices understanding. Tawana Hopkins RN [facility]07-26-2024 Miscellaneous Notes* Telephone Encounter - Tawana Hopkins RN - 09/14/2023 9:59 AM EDT Billy called and notified of below. Billy voices understanding. Tawana Hopkins RN * Telephone Encounter - Lenin Chaudhary MD - 09/14/2023 9:50 AM EDT BP low this morning. I would recheck it now and if still less than 100/60 I would have him hold hislisinopril today and recheck tomorrow morning. * Telephone Encounter - Tawana Hopkins RN - 09/14/2023 9:22 AM EDT Billy, patient's daughter in law, calls with updated blood pressure readings. For the last past couple of days patient's blood pressures have been 113/64, 125/73, 111/66, and 130/58. Billy states that patient's current blood pressure is 95/57. Billy has not given patient's lisinopril this morning. Billy wanting to make sure that medication is ok to give. Family has been pushing fluids as instructed. Please review and advise, Tawana Hopkins RN documented in this encounterAcmc Healthcare System07-26-2024 Telephone encounter Note * Telephone Encounter - Lenin Chaudhary MD - 09/14/2023 9:50 AM EDT BP low this morning. I would recheck it now and if still less than 100/60 I would have him hold hislisinopril today and recheck tomorrow morning. [facility] Telephone encounter Note* Telephone Encounter - Tawana Hopkins RN - 09/14/2023 9:22 AM EDT Billy, patient's daughter in law, calls with updated blood pressure readings. For the last past couple of days patient's blood pressures have been 113/64, 125/73, 111/66, and 130/58. Billy states that patient's current blood pressure is 95/57. Billy has not given patient's lisinopril this morning. Billy wanting to make sure that medication is ok to give. Family has been pushing fluids as instructed. Please review and advise, Tawana Hopkins RN [facility]07-24-2024 Telephone encounter Note* Telephone Encounter - Sabiha Boudreaux LPN - 09/12/2023 2:01 PM EDT Billy notified of recommendations for Pt , verbalizes understanding of instructions. Sabiha Boudreaux LPN [facility]07-24-2024 Miscellaneous Notes* Telephone Encounter - Sabiha Boudreaux LPN - 09/12/2023 2:01 PM EDT Billy notified of recommendations for Pt , verbalizes understanding of instructions. Sabiha Boudreaux LPN * Telephone Encounter - Lenin Chaudhary MD - 09/12/2023 12:59 PM EDT Stop his HCTZ and increase water intake. Continue to monitor BP at home and call in 3-5 days with updated readings. * Telephone Encounter - Gege Rodriges, RN - 09/12/2023 12:21 PM EDT Billy- of son, William, reports she is with patient today, and reporting patient is having low BPreadings, this morning 88/57, but has had low BP readings for about 5 days. Reports yesterday his BP was 67/38, they got him up moving around and the BP came back up. One day patient stood up and felt lightheaded and had to sit back down. Reports most of the time patient tells family, he feels fine, when his BP is low. Asking if pcp wants to change patient's BP medications? Billy asking office to phone her back, but she is not listed on patient's contacts. Billy states that is fine, office can call her , William. documented in this encounterA[facility]07-[facility]24 Telephone encounter Note * Telephone Encounter - Lenin Chaudhary MD - 09/12/2023 12:59 PM EDT Stop his HCTZ and increase water intake. Continue to monitor BP at home and call in 3-5 days with updated readings. [facility]07-24-2024 Telephone encounter Note* Telephone Encounter - Gege Rodriges RN - 09/12/2023 12:21 PM EDT Billy- of son, William, reports she is with patient today, and reporting patient is having low BPreadings, this morning 88/57, but has had low BP readings for about 5 days. Reports yesterday his BP was 67/38, they got him up moving around and the BP came back up. One day patient stood up and felt lightheaded and had to sit back down. Reports most of the time patient tells family, he feels fine, when his BP is low. Asking if pcp wants to change patient's BP medications? Billy asking office to phone her back, but she is not listed on patient's contacts. Billy states that is fine, office can call her , William. [facility]07-08-2024 Telephone encounter Note* Telephone Encounter - Gege Rodriges RN - 08/27/2023 11:09 AM EDT Returned call to [facility]'s pharmacy, and spoke with Bharati. Given provider's message below with verbalized understanding. [facility]07-08-2024 Miscellaneous Notes* Telephone Encounter - Gege Rodriges RN - 08/27/2023 11:09 AM EDT Returned call to [facility]'s pharmacy, and spoke with Bharati. Given provider's message below with verbalized understanding. * Telephone Encounter - Lenin Chaudhary MD - 08/27/2023 6:59 AM EDT Patient is to discontinue his amlodipine and tamsulosin. Please notify pharmacy. * Telephone Encounter - Sylwia Nguyen LPN - 08/24/2023 2:35 PM EDT 1)Pharmacy calling for a refill on Amlodipine. Pharmacy reports the Amlodipine was never stopped out of his packets on 08-07-23. Pharmacy calling for refills. Please review and advise pharmacy and pt. 2) Pharmacy reports Tamsulosin was never stopped in pt's packet and they are calling for refills. Sylwia Nguyen LPN documented in this encounterAcmc [facility] System07-08-2024 Telephone encounter Note * Telephone Encounter - Lenin Chaudhary MD - 08/27/2023 6:59 AM EDT Patient is to discontinue his amlodipine and tamsulosin. Please notify pharmacy. [facility]07-05-2024 Telephone encounter Note* Telephone Encounter - Sylwia Nguyen LPN - 08/24/2023 2:35 PM EDT 1)Pharmacy calling for a refill on Amlodipine. Pharmacy reports the Amlodipine was never stopped out of his packets on 08-07-23. Pharmacy calling for refills. Please review and advise pharmacy and pt. 2) Pharmacy reports Tamsulosin was never stopped in pt's packet and they are calling for refills. Sylwia Nguyen LPN [facility]06-28-2024 Instructions* Patient Instructions* July Richards APRN.TADEO - 08/17/2023 1:11 PM EDT Change Hydrochlorothiazide to one pill daily instead of two a day Take blood pressure daily and up date us in one month with readings documented in this encounterAcmc Healthcare System06-28-2024 History of Present illness Narrative* July Richards APRN.TADEO - 08/17/2023 1:00 PM EDT 08/13/2023 Patient presents with: Blood Pressure Check: Stopped amlodipine SUBJECTIVE: This is a 77 year old, accompanied by son, that is here today for Above Complaints. Amlodipine discontinued at last office visit due to low home BP readings. Per son he gets pills packs and they have not changed dose yet so he may have still took some days as he has alzheimer's and they are not always available to take it out of packet and son is unsure if his dad remembers to take it out. Has two days left of his pill packs and his new ones do not have the amlodipine in them. Patient admits to dizziness if he ends over or gets up to quickly otherwise does not feel dizzy or lightheaded. Admits to some fatigue PAST MEDICAL HISTORY Diagnosis Date Bilateral carpal tunnel syndrome s/p release on right Bilateral inguinal hernia s/p mesh BPH (benign prostatic hyperplasia) DDD (degenerative disc disease), lumbar resolved after discectomy Dementia (HCC) Depression Deviated septum s/p septoplasty Hyperlipidemia Iron deficiency anemia Irritable bowel syndrome 08/1997 improved Lipoma of neck left posterior neck CHRISTIANO (obstructive sleep apnea) [address] Bustamante Personal history of colonic polyps Scalp psoriasis Unspecified essential hypertension Vitamin D insufficiency ALLERGIES Patient has no known allergies. MEDICATIONS Current Outpatient Medications Medication Sig donepezil (ARICEPT) 10 mg tablet Take 1 tablet by mouth daily with breakfast. atorvastatin (LIPITOR) 20 mg tablet Take 1 tablet by mouth once daily. ferrous sulfate 325 mg (65 mg iron) tablet Take 1 tablet by mouth every 48 hours. fluticasone (FLONASE) 50 mcg/actuation nasal spray Use 2 Sprays in each nostril as needed. Rinse mouth after use. cyanocobalamin (VITAMIN B-12) 1,000 mcg tab Take 1 tablet by mouth once daily. pantoprazole DR (PROTONIX) 40 mg tablet Take 40 mg by mouth two times a day. hydroCHLOROthiazide 12.5 mg capsule Take 2 capsules by mouth once daily. lisinopril (ZESTRIL) 40 mg tablet Take 1 tablet by mouth once daily. sertraline (ZOLOFT) 25 mg tablet Take 1 tablet every other day for 2 weeks, then every 3rd day for 2 weeks, then stop No current facility-administered medications for this visit. Medications and allergies reviewed by this provider. SOCIAL HISTORY Social History Tobacco Use Smoking status: Never Smokeless tobacco: Never Substance Use Topics Alcohol use: No Drug use: No REVIEW OF SYSTEMS All other reviewed and negative other than HPI. OBJECTIVE: BP 96/64 Pulse 60 Resp 18 Wt 88.4 kg (194 lb 12.8 oz) SpO2 98% BMI 25.70 kg/m . Vital signs reviewed by this provider. APPEARANCE Well appearing, alert, in no acute distress, well-hydrated, well nourished. RSV Vaccine(1 - 1-dose 60+ series) Never done Advance Directive Discussion due on 02/19/2023 Covid-19 Vaccine( season) due on 05/16/2023 Colorectal Cancer Screening due on 11/24/2023 Annual PCP Team Chronic Disease Visit due on 08/16/2024 BP Controlled (<130/80) due on 08/16/2024 Diabetes Screening due on 07/16/2026 DTaP,Tdap,Td Vaccine(3 - Td or Tdap) due on 09/06/2026 Lipid Screening due on 09/29/2026 Influenza Vaccine Completed Hepatitis C Screening Completed Shingrix Vaccine Completed Pneumococcal Vaccine: 65+ Completed ASSESSMENT/PLAN: 1. Hypotension, unspecified hypotension type - ICD9: 458.9, ICD10: I95.9 - will decrease his HCTZ to one tablet daily - he will monitor BP at home daily and update me in one month with readings, sooner if having symptoms of dizziness, lightheadedness or consistent BP readings of 140/90 or greater - HYDROCHLOROTHIAZIDE 12.5 MG CAPSULE July Richards APRN.CNP Prescription instructions reviewed with patient as applicable. Patient advised if symptoms do not improve or if symptoms worsen sooner, to contact their primary care physician. Potential red flag symptoms discussed with the patient. Reviewed appropriate action plan to take if red flag symptoms occur. Patient agreeable to treatment plan. Medical Decision Making: Problems: Moderate: 1+ chronic illnesses with change Risk: Moderate: Drug management Medical Decision Making Level: 4 - Moderate documented in this encounterAcmc [facility] System06-19-2024 Telephone encounter Note * Telephone Encounter - Carmen Rios APRN.CNP - 08/08/2023 2:04 PM EDT The following approved medication requests have been transmitted electronically. Requested Prescriptions Signed Prescriptions Disp Refills donepezil (ARICEPT) 10 mg tablet 90 tablet 1 Sig: Take 1 tablet by mouth daily with breakfast. Authorizing Provider: KATTY RODRIGUEZ Ordering User: CARMEN RIOS APRN.CNP [facility]06-19-2024 Miscellaneous Notes* Telephone Encounter - Carmen Rios APRN.CNP - 08/08/2023 2:04 PM EDT The following approved medication requests have been transmitted electronically. Requested Prescriptions Signed Prescriptions Disp Refills donepezil (ARICEPT) 10 mg tablet 90 tablet 1 Sig: Take 1 tablet by mouth daily with breakfast. Authorizing Provider: KATTY RODRIGUEZ User: CARMEN RIOS APRN.CNP * Telephone Encounter - Fabiola Causey RN - 08/07/2023 3:55 PM EDT RN called [facility]'s pharmacy back, spoke to pharmacist Estephania, she needs clarification on the Donepezil, the last script for the patient was for 10 mg daily, one of our provider's sent in a refill todayfor 5 mg. RN will send the message to the provider. Fabiola Causey RN * Telephone Encounter - Emily Doty - 08/07/2023 3:36 PM EDT [facility] Pharm[facility] called to confirm correct dosage of donepezil. Please call [phone] documented in this encounterAcmc [facility] System06-18-2024 Telephone encounter Note * Telephone Encounter - Fabiola Causey RN - 08/07/2023 3:55 PM EDT RN called [facility]'s pharmacy back, spoke to pharmacist Estephania, she needs clarification on the Donepezil, the last script for the patient was for 10 mg daily, one of our provider's sent in a refill todayfor 5 mg. RN will send the message to the provider. Fabiola Causey RN [facility]06-18[facility] Telephone encounter Note* Telephone Encounter - Emily Doty - 08/07/2023 3:36 PM EDT [facility] Pharm[facility] called to confirm correct dosage of donepezil. Please call [phone] [facility]06-18[facility] Telephone encounter Note* Telephone Encounter - Carmen Rios APRN.CNP - 08/07/2023 2:51 PM EDT The following approved medication requests have been transmitted electronically. Requested Prescriptions Signed Prescriptions Disp Refills donepezil (ARICEPT) 5 mg tablet 30 tablet 3 Sig: take one tablet by mouth every day with breakfast Authorizing Provider: KATTY RODRIGUEZ Ordering User: CARMEN RIOS APRN.CNP [facility]06-18[facility]24 Miscellaneous Notes* Telephone Encounter - Carmen Rios APRN.CNP - 08/07/2023 2:51 PM EDT The following approved medication requests have been transmitted electronically. Requested Prescriptions Signed Prescriptions Disp Refills donepezil (ARICEPT) 5 mg tablet 30 tablet 3 Sig: take one tablet by mouth every day with breakfast Authorizing Provider: KATTY RODRIGUEZ Ordering User: CARMEN RIOS APRN.CNP documented in this encounterAcmc Healthcare System06-17-2024 Telephone encounter Note * Telephone Encounter - Tawana Hopkins RN - 08/06/2023 10:31 AM EDT Dennis PT from [facility] calls to report that patient is being discharged from home health physical therapy. Patient is doing well and has met all goals. Tawana Hopkins RN [facility]06-17-2024 Miscellaneous Notes* Telephone Encounter - Tawana Hopkins RN - 08/06/2023 10:31 AM EDT Dennis PT from [facility] calls to report that patient is being discharged from home health physical therapy. Patient is doing well and has met all goals. Tawana Hopkins RN documented in this encounterAcmc [facility] System06-14-2024 Telephone encounter Note * Telephone Encounter - Angi Montana RN - 08/03/2023 11:09 AM EDT Pts nacho Moon called and is notified of providers message and instructions. He voices understanding,scheduled 2 week BP check on 08/17/23. Angi Montana RN [facility]06-14-2024 Miscellaneous Notes* Telephone Encounter - Angi Montana RN - 08/03/2023 11:09 AM EDT Pts nacho Moon called and is notified of providers message and instructions. He voices understanding,scheduled 2 week BP check on 08/17/23. Angi Montana RN * Telephone Encounter - Lenin Chaudhary MD - 08/03/2023 10:38 AM EDT With his recent reported low BP, I would recommend stopping his amlodipine and rechecking BP in office in 2 weeks. * Telephone Encounter - Camila Cortes LPN - 08/02/2023 3:24 PM EDT Patient's daughter in law checked patient's meds and she stated that it appears that patient is taking meds and at the correct times. Please review Camila Cortes LPN documented in this encounterAcmc [facility] System06-14-2024 Telephone encounter Note * Telephone Encounter - Lenin Chaudhary MD - 08/03/2023 10:38 AM EDT With his recent reported low BP, I would recommend stopping his amlodipine and rechecking BP in office in 2 weeks. [facility]06-13-2024 Telephone encounter Note* Telephone Encounter - Camila Cortes LPN - 08/02/2023 3:24 PM EDT Patient's daughter in law checked patient's meds and she stated that it appears that patient is taking meds and at the correct times. Please review Camila Cortes LPN [facility] Work Phone: [phone]) 699-784106-13-2024 History of Present illness Narrative* Lenin Chaudhary MD - 08/02/2023 1:59 PM EDT Chief Complaint Patient presents with: UTI: C/o flank pain bilaterally x couple month patient reports HPI Homero Mei is a 77 year old male who presents here today for Above Complaints. Accompanied today by his daughter in law Nery. Patient complaining of intermittent bilateral flank pain for the last 1 month. Unable to describe his pain. Currently 0/10. Exacerbated with rotation, lifting. Treating with tylenol PRN which does help with pain. Denies urinary symptoms, fever/chills, fall/injury, loss of bowel/bladder control, saddle anesthesia, LE weakness. Daughter in law notes that the patient was scheduled to have PT today and when the physical therapist showed up his BP was 76/43 and they did not feel comfortable working with him and postponed his session. [facility] reportedly came out and rechecked his BP, but they are not sure what their readings were. They did not notify us of low BP in their message about his flank pain. DIL is not sure if he could have taken extra medication, but notes he has pill pack and administers them himself. Eating 3 meals per day and states that he is drinking enough water during the day. Denies nausea, vomiting, diarrhea, lightheadedness/dizziness, syncope. Past medical history, appointments, medications, allergies reviewed. Previous Medical History PAST MEDICAL HISTORY Diagnosis Date Bilateral carpal tunnel syndrome s/p release on right Bilateral inguinal hernia s/p mesh BPH (benign prostatic hyperplasia) DDD (degenerative disc disease), lumbar resolved after discectomy Dementia (HCC) Depression Deviated septum s/p septoplasty Hyperlipidemia Iron deficiency anemia Irritable bowel syndrome 08/1997 improved Lipoma of neck left posterior neck CHRISTIANO (obstructive sleep apnea) [address] Bustamante Personal history of colonic polyps Scalp psoriasis Unspecified essential hypertension Vitamin D insufficiency Previous Surgical History PAST SURGICAL HISTORY Procedure Laterality Date BACK SURGERY HX COLON SURGERY HX COLONOSCOPY FLX DX W/COLLJ SPEC WHEN PFRMD , 11/19, 01/24, 01/29 COLONOSCOPY FLX DX W/COLLJ SPEC WHEN PFRMD 03/22/2015 Colonoscopy-repeat 5 years COLONOSCOPY FLX DX W/COLLJ SPEC WHEN PFRMD 11/23/2020 COLONOSCOPY GEN ANES 04/12/2020 Repeat in 1 year COLONOSCOPY GEN ANES 04/26/2020 3 polyps removed. 40 mm, 5 mm, 5mm. repeat in 6 months. DISKECTOMY, LUMBAR, SINGLE SP 2006 HERNIA REPAIR HX INGUINAL HERNIA REPAIR HX 07/19/2010 bilateral inguinal hernia repair with mesh NEUROPLASTY &/TRANSPOS MEDIAN NRV CARPAL TUNNE Right 03/26/2015 Carpal tunnel decomp right PAST SURGICAL HISTORY OF Left 04/10/2019 arthroscopic knee for torn meniscus RHINP PRIM LAT&ALAR CRTLGS&/ELVTN NASAL TI 2009 Rhinoplasty SKIN BIOPSY HX Family History FAMILY HISTORY Problem Relation Age of Onset Heart Mother CHF Hypertension Mother Stroke Father Hypertension Father Patient Allergies ALLERGIES No Known Allergies Current Medications Current Outpatient Medications on File Prior to Visit Medication Sig donepezil (ARICEPT) 10 mg tablet Take 1 tablet by mouth daily with breakfast. amLODIPine (NORVASC) 2.5 mg tablet Take 1 tablet by mouth once daily. atorvastatin (LIPITOR) 20 mg tablet Take 1 tablet by mouth once daily. ferrous sulfate 325 mg (65 mg iron) tablet Take 1 tablet by mouth every 48 hours. fluticasone (FLONASE) 50 mcg/actuation nasal spray Use 2 Sprays in each nostril as needed. Rinse mouth after use. cyanocobalamin (VITAMIN B-12) 1,000 mcg tab Take 1 tablet by mouth once daily. pantoprazole DR (PROTONIX) 40 mg tablet Take 40 mg by mouth two times a day. hydroCHLOROthiazide 12.5 mg capsule Take 2 capsules by mouth once daily. lisinopril (ZESTRIL) 40 mg tablet Take 1 tablet by mouth once daily. sertraline (ZOLOFT) 25 mg tablet Take 1 tablet every other day for 2 weeks, then every 3rd day for 2 weeks, then stop No current facility-administered medications on file prior to visit. Social History Social History Tobacco Use Smoking status: Never Smokeless tobacco: Never Substance Use Topics Alcohol use: No Drug use: No Review of Symptoms REVIEW OF SYSTEMS See HPI EXAM: BP 110/64 Pulse 71 Temp 36.5 C (97.7 F) Resp 16 Wt 88.3 kg (194 lb 9.6 oz) SpO2 97% BMI25.67 kg/m General Appearance: Well appearing, alert, in no acute distress, well-hydrated, well nourished.. Skin: Skin color, texture, turgor normal, no suspicious rashes or lesions. Back:no pain to palpation of vertebrae, good flexion and extension, good range of motion, no muscletenderness, reflexes are 2+ and symmetric, motor and sensory appear to be normal, negative SLR test, no evidence of scoliosis Lungs: Lungs clear to auscultation. No wheezing, rhonchi, rales.. Heart: RRR without murmur, gallop, or rubs. No ectopy. Abdomen: Normal abdominal exam, Abdomen soft, non-tender. Bowel sounds normal. No masses, organomegaly. Health Maintenance List RSV Vaccine(1 - 1-dose 60+ series) Never done Advance Directive Discussion due on 02/19/2023 Covid-19 Vaccine(2022- season) due on 05/16/2023 Colorectal Cancer Screening due on 11/24/2023 BP Controlled (<130/80) due on 07/16/2024 Annual PCP Team Chronic Disease Visit due on 08/01/2024 Diabetes Screening due on 07/16/2026 DTaP,Tdap,Td Vaccine(3 - Td or Tdap) due on 09/06/2026 Lipid Screening due on 09/29/2026 Influenza Vaccine Completed Hepatitis C Screening Completed Shingrix Vaccine Completed Pneumococcal Vaccine: 65+ Completed Latest Ref Rng 08/02/2023 GLUCOSE UA (POCT) Negative mg/dL Negative BILIRUBIN UA (POCT) Negative Negative KETONE UA (POCT) Negative mg/dL Negative SPECIFIC GRAVITY UA (POCT) 1.005 - 1.030 1.020 HEMOGLOBIN/BLOOD UA (POCT) Negative Negative PH UA (POCT) 4.5 - 8.0 7.0 PROTEIN UA (POCT) Negative mg/dL Negative UROBILINOGEN UA (POCT) Normal E.U./dL 0.2 NITRITE UA (POCT) Negative Negative LEUKOCYTES UA (POCT) Negative Negative COLOR UA (POCT) Yellow CLARITY UA (POCT) Clear ASSESSMENT/PLAN: 1. Acute bilateral low back pain without sciatica - ICD9: 724.2, 338.19, ICD10: M54.50 (primary diagnosis) Normal exam today without pain. Discussed likely lumbar strain. Discussed rest, ice/heat, OTC analgesics, and home exercises. Red flags for re-assessment reviewed with patient in detail. 2. Flank pain - ICD9: 789.09, ICD10: R10.9 UA negative for infection. Doubt kidney stone. See above recommendations. - UA DIP, URINE (POC) 3. Hypotension, unspecified hypotension type - ICD9: 458.9, ICD10: I95.9 BP low at home. Will have family check to make sure he did not take extra medications. If not, willdiscontinue his amlodipine and monitor. 4. Alzheimer's dementia without behavioral disturbance, psychotic disturbance, mood disturbance, oranxiety, unspecified dementia severity, unspecified timing of dementia onset ([facility]) - ICD9: 331.0, 294.10, ICD10: G30.9, F02.80 Long discussion today about patient's progressive dementia. His story about his pain today changed several times before he left. Again, advised he should not be driving. I did order a driving evaluation and sent letter to the [facility] regarding my concerns with his dementia. Patient wanted a copy of this paperwork today which we provided. Discussed concerns with him living by himself with family living 40 minutes away. Offered referral to social work if they would like help with shelter placement. I spent a total of 45 minutes on the date of the service which included preparing to see the patient, [id number] patient care, completing clinical documentation, obtaining and/or reviewing separately obtained history, performing a medically appropriate examination, counseling and educating the pat ient/family/caregiver, ordering medications, tests, or procedures, independently interpreting results (not separately reported), and communicating results to the patient/family/caregiver. Lenin Chaudhary MD documented in this encounterAcmc Healthcare System06-13-2024 Telephone encounter Note * Telephone Encounter - Maribel Ruiz MA - 08/02/2023 1:10 PM EDT Spoke to and they will discard culture since patient aware will need sample in office and we will process Maribel Ruiz MA [facility]06[facility] Miscellaneous Notes* Telephone Encounter - Maribel Ruiz MA - 08/02/2023 1:10 PM EDT Spoke to and they will discard culture since patient aware will need sample in office and we will process Maribel Ruiz MA * Telephone Encounter - Isaura Collins - 08/02/2023 1:05 PM EDT Spoke with patient son and scheduled today to see Dr. Chaudhary at 1:40 * Telephone Encounter - Maribel Ruiz MA - 08/02/2023 11:46 AM EDT Spoke to sunita who advised already collected urine but aware to not give to lab till I contact patient regarding appointment. Patient is going to call family member to see if he can be brought in and see pcp today. Will call back to schedule. Will keep TE open so I can call nurse back Maribel Ruiz MA * Telephone Encounter - Lenin Chaudhary MD - 08/02/2023 11:26 AM EDT I would not recommend he take ibuprofen due to acute kidney injury on recent labs. It sounds like he needs to be seen in the office for this. We could do a UA and get results back today and check for signs of muscle pain. * Telephone Encounter - Alyssa Valentin LPN - 08/02/2023 11:18 AM EDT Sunita from [facility] calling patient is complaining of gregorio flank pain. Urine sample is being collected and will be taken to [facility]. Nurse asking for orders for ibuprofen or Biofreeze for patient to use as needed? Patient not sure if muscle strain or UTI, does not have normal UTI symptoms. Please advise documented in this encounterAcmc Healthcare System06-13-2024 Telephone encounter Note * Telephone Encounter - Isaura Collins - 08/02/2023 1:05 PM EDT Spoke with patient son and scheduled today to see Dr. Chaudhary at 1:40 [facility] Telephone encounter Note* Telephone Encounter - Maribel Ruiz MA - 08/02/2023 11:46 AM EDT Spoke to sunita who advised already collected urine but aware to not give to lab till I contact patient regarding appointment. Patient is going to call family member to see if he can be brought in and see pcp today. Will call back to schedule. Will keep TE open so I can call nurse back Maribel Ruiz MA [facility]06-[facility] Telephone encounter Note* Telephone Encounter - Lenin Chaudhary MD - 08/02/2023 11:26 AM EDT I would not recommend he take ibuprofen due to acute kidney injury on recent labs. It sounds like he needs to be seen in the office for this. We could do a UA and get results back today and check for signs of muscle pain. [facility] Telephone encounter Note* Telephone Encounter - Alyssa Valentin LPN - 08/02/2023 11:18 AM EDT Sunita from [facility] calling patient is complaining of gregorio flank pain. Urine sample is being collected and will be taken to [facility]. Nurse asking for orders for ibuprofen or Biofreeze for patient to use as needed? Patient not sure if muscle strain or UTI, does not have normal UTI symptoms. Please advise [facility] Telephone encounter Note* Telephone Encounter - Elaine Garcia - 07/27/2023 1:51 PM EDT Prescription Refill Information The patient has been identified by name and date of : Yes Caregiver verified no other encounters exist for this prescription request: Yes Caregiver confirmed with patient/requestor that no other refills are due, in the near future, with this provider at this time: Yes The last office visit in the department: 04/23/23 Does the patient have a future office visit with this provider/department: Yes 10/23/23 Requested Prescriptions Pending Prescriptions Disp Refills donepezil (ARICEPT) 5 mg tablet 30 tablet 2 Sig: Take 1 tablet by mouth daily with breakfast. Elaine Braswell July 27, 2023 1:51 PM [facility] Miscellaneous Notes* Telephone Encounter - Elaine Garcia - 07/27/2023 1:51 PM EDT Prescription Refill Information The patient has been identified by name and date of : Yes Caregiver verified no other encounters exist for this prescription request: Yes Caregiver confirmed with patient/requestor that no other refills are due, in the near future, with this provider at this time: Yes The last office visit in the department: 04/23/23 Does the patient have a future office visit with this provider/department: Yes 10/23/23 Requested Prescriptions Pending Prescriptions Disp Refills donepezil (ARICEPT) 5 mg tablet 30 tablet 2 Sig: Take 1 tablet by mouth daily with breakfast. Elaine Connell Pss July 27, 2023 1:51 PM documented in this encounterAcmc Healthcare System05-30-2024 Telephone encounter Note * Telephone Encounter - Lenin Chaudhary MD - 07/19/2023 2:13 PM EDT Reviewed. [facility] Miscellaneous Notes* Telephone Encounter - Lenin Chaudhary MD - 07/19/2023 2:13 PM EDT Reviewed. * Telephone Encounter - Tawana Hopkins RN - 07/19/2023 11:07 AM EDT Dennis PT from [facility] calls to report that he had seen patient today for re-assessment. Patient is doing very well and has met all goals. Dennis is planning on following up with patient in 2 weeks to make sure that patient is maintaining at home due to patient cognitive issues. If patient isdoing ok at this time plan is to discharge patient from PT services. No call back need unless there are questions. Tawana Hopkins RN documented in this encounterAcmc Healthcare System05-30-2024 Telephone encounter Note * Telephone Encounter - Tawana Hopkins RN - 07/19/2023 11:07 AM EDT Dennis PT from [facility] calls to report that he had seen patient today for re-assessment. Patient is doing very well and has met all goals. Dennis is planning on following up with patient in 2 weeks to make sure that patient is maintaining at home due to patient cognitive issues. If patient isdoing ok at this time plan is to discharge patient from PT services. No call back need unless there are questions. Tawana Hopkins RN [facility]05-29-[facility] Telephone encounter Note* Telephone Encounter - Lenin Chaudhary MD - 07/18/2023 4:01 PM EDT Reviewed. [facility] Miscellaneous Notes* Telephone Encounter - Lenin Chaudhary MD - 07/18/2023 4:01 PM EDT Reviewed. * Telephone Encounter - Flores Benton RN - 07/18/2023 3:59 PM EDT Arlyn, OT @ [facility] calling to let provider know patient has been discharged from Occupational Therapy. Has met goals. Flores Benton RN documented in this encounterAcmc Healthcare System05-29-2024 Telephone encounter Note * Telephone Encounter - Flores Benton RN - 07/18/2023 3:59 PM EDT Arlyn, OT @ [facility] calling to let provider know patient has been discharged from Occupational Therapy. Has met goals. Flores Benton RN [facility]05-29-[facility]24 Miscellaneous Notes* Telephone Encounter - Sabiha Owen RN - 07/18/2023 2:15 PM EDT Called and spoke with pt. Received permission from pt to speak with all of his sons-Indy, William, Carmen & Edin. Pt with hx of dementia. Pt states someone had talked with him about changing to [facility] but pt does not want to do that. Pt states his sons help him with his medications. Explained to him that perhaps they initiated the change to [facility] because they send the pres criptions to the patient's house and do pre packaging. Pt states he wasn't aware of that and he states that he guesses if his sons want to use [facility] then he is okay with it. Pt was seen yesterday and per note, was to schedule a f/u for 3 mons. No appt scheduled. Scheduled one with pt for10/[address] Chaudhary. Pt also asking about an appt Dr. Chaudhary said he should follow up with. Pt unsure if it was urology or gastroenterology. Per Dr. Chaudhary's OV note, pt is to follow up with Dr. Diaz. Per pt's EGD report, he is supposed to have a repeat EGD. Also per the note, pt is to be on Omeprazole 40 mg BID until repeat EGD. Called and spoke with son Indy to update him on the appt on 10/[address] Chaudhary and to confirm the change to [facility]. Indy confirms. Also notified Indy,that per Dr. Chaudhary's office note, Dr. Chaudhary feels a family member should be at all of pt's appts. Also spoke with Idny about the follow up with Dr. Diaz, pt's clay temperer. Indy confirms that pt has another appt with Dr. Diaz on 09/06. Pt is currently on Pantoprazole twice a day for 30days then Indy states pt is to cut it down to once a day. Per Dr. Diaz's EGD note, pt was to be on Omeprazole 40 mg for 3 months or until repeat EGD. Instructed Indy to call Dr. Diaz to confirm which medication he wants pt to be on. Notified Indy that his father also wanted to go ahead and makehis 1 yr f/u with the urologist. Indy also asked if I could check to see when he is supposed to seehis other providers. Pt is to follow up with his neuro provider in July. Son told that he could probably schedule most of those appts through pt's [employer]. * Telephone Encounter - Arlyn Scott LPN - 07/13/2023 1:09 PM EDT [facility] message to patient to advise we don't accept outside med refill requests. Requesting he call to advise on what medications need filled. Arlyn Scott LPN * Telephone Encounter - Saranya Castrejon - 07/13/2023 12:39 PM EDT [facility] said they are patient's new pharmacy and need new scripts for these medications. * Telephone Encounter - Saranya Castrejon - 07/13/2023 12:36 PM EDT Patient has been identified by name and date of : Yes, Provider [facility] phones for refill(s): Requested Prescriptions Pending Prescriptions Disp Refills amLODIPine (NORVASC) 2.5 mg tablet 90 tablet 1 Sig: Take 1 tablet by mouth once daily. atorvastatin (LIPITOR) 20 mg tablet 90 tablet 1 Sig: Take 1 tablet by mouth once daily. cyanocobalamin (VITAMIN B-12) 1,000 mcg tab Sig: Take 1 tablet by mouth once daily. ferrous sulfate 325 mg (65 mg iron) tablet 45 tablet 0 Sig: Take 1 tablet by mouth every [address] (PROTONIX) 40 mg tablet Sig: Take 1 tablet by mouth two times a day. fluticasone (FLONASE) 50 mcg/actuation nasal spray 1 Each 2 Sig: Use 2 Sprays in each nostril as needed. Rinse mouth after use. Date of last office visit in primary care: 06/20/2023 Date of next office visit in primary care: 07/17/2023 Please advise. Thank you. Saranya Braswell. documented in this encounterAcmc Healthcare System05-29-2024 Telephone encounter Note * Telephone Encounter - Sabiha Owen RN - 07/18/2023 2:15 PM EDT Called and spoke with pt. Received permission from pt to speak with all of his sons-Indy, William, Carmen & Edin. Pt with hx of dementia. Pt states someone had talked with him about changing to [facility] but pt does not want to do that. Pt states his sons help him with his medications. Explained to him that perhaps they initiated the change to [facility] because they send the pres criptions to the patient's house and do pre packaging. Pt states he wasn't aware of that and he states that he guesses if his sons want to use [facility] then he is okay with it. Pt was seen yesterday and per note, was to schedule a f/u for 3 mons. No appt scheduled. Scheduled one with pt for10/[address] Chaudhary. Pt also asking about an appt Dr. Chaudhary said he should follow up with. Pt unsure if it was urology or gastroenterology. Per Dr. Chaudhary's OV note, pt is to follow up with Dr. Diaz. Per pt's EGD report, he is supposed to have a repeat EGD. Also per the note, pt is to be on Omeprazole 40 mg BID until repeat EGD. Called and spoke with son Indy to update him on the appt on 10/[address] Chaudhary and to confirm the change to [facility]. Indy confirms. Also notified Indy,that per Dr. Chaudhary's office note, Dr. Chaudhary feels a family member should be at all of pt's appts. Also spoke with Indy about the follow up with Dr. Diaz, pt's clay temperer. Indy confirms that pt has another appt with Dr. Diaz on 09/06. Pt is currently on Pantoprazole twice a day for 30days then Indy states pt is to cut it down to once a day. Per Dr. Diaz's EGD note, pt was to be on Omeprazole 40 mg for 3 months or until repeat EGD. Instructed Indy to call Dr. Diaz to confirm which medication he wants pt to be on. Notified Indy that his father also wanted to go ahead and makehis 1 yr f/u with the urologist. Indy also asked if I could check to see when he is supposed to seehis other providers. Pt is to follow up with his neuro provider in July. Son told that he could probably schedule most of those appts through pt's MyChart. [facility] Telephone encounter Note* Telephone Encounter - Elaine Marie MA - 07/18/2023 1:53 PM EDT Indy notified and verbalized understanding. Unable to add vit b12 onto yesterday's labs. Will have drawn in 2 weeks. Elaine Marie MA [facility]05-29-[facility]24 Miscellaneous Notes* Telephone Encounter - Elaine Marie MA - 07/18/2023 1:53 PM EDT Indy notified and verbalized understanding. Unable to add vit b12 onto yesterday's labs. Will have drawn in 2 weeks. Elaine Marie MA * Telephone Encounter - Lenin Chaudhary MD - 07/18/2023 1:19 PM EDT Continue iron every other day. His hemoglobin and hematocrit was just checked on 07/09 and was improving. I would not repeat it in 2 weeks. Continue protonix as ordered. Will add on b12 level. * Telephone Encounter - Elaine Marie MA - 07/18/2023 1:10 PM EDT Spoke with patient's son, Indy and informed of the below and verbalized understanding. He does ask the followin) should ferrous sulfate 325 mg be increased to daily instead of every other day? 2) Can CBC be rechecked in 2 weeks as well? Concerns for RBC count on 06/13/23 labs 3) Does patient need to continue protonix? On daily dose now. 4) Would like to have B12 checked again and if patient needs to continue to take B12, will need a refill. Please advise. Elaine Marie MA * Telephone Encounter - Lenin Chaudhary MD - 07/18/2023 9:02 AM EDT Iron levels improving, but still low. Continue iron supplement as ordered. CMP shows acute kidney injury with high creatinine and low GFR. Recommend low sodium diet <2,000mg per day, avoidance of NSAIDs, and increased water intake. If he is having burning with urination, blood in urine, urinary frequency/urgency, weak stream, or straining would add on UA to rule out infection. Recheck level in 2 weeks. documented in this encounterAcmc Healthcare System05-29-2024 Telephone encounter Note * Telephone Encounter - Lenin Chaudhary MD - 07/18/2023 1:19 PM EDT Continue iron every other day. His hemoglobin and hematocrit was just checked on 07/09 and was improving. I would not repeat it in 2 weeks. Continue protonix as ordered. Will add on b12 level. [facility] Telephone encounter Note* Telephone Encounter - Elaine Marie MA - 07/18/2023 1:10 PM EDT Spoke with patient's son, Indy and informed of the below and verbalized understanding. He does ask the followin) should ferrous sulfate 325 mg be increased to daily instead of every other day? 2) Can CBC be rechecked in 2 weeks as well? Concerns for RBC count on 06/13/23 labs 3) Does patient need to continue protonix? On daily dose now. 4) Would like to have B12 checked again and if patient needs to continue to take B12, will need a refill. Please advise. Elaine Marie MA [facility]-29-[facility] Telephone encounter Note* Telephone Encounter - Lenin Chaudhary MD - 07/18/2023 9:02 AM EDT Iron levels improving, but still low. Continue iron supplement as ordered. CMP shows acute kidney injury with high creatinine and low GFR. Recommend low sodium diet <2,000mg per day, avoidance of NSAIDs, and increased water intake. If he is having burning with urination, blood in urine, urinary frequency/urgency, weak stream, or straining would add on UA to rule out infection. Recheck level in 2 weeks. [facility]05-[facility] Instructions* Patient Instructions* Lenin Chaudhary MD - 07/17/2023 10:05 AM EDT Please schedule your follow up appointment with gastroenterology for your history of GI bleed as wepreviously discussed. I would recommend bringing a family member with you to all future appointments with known history of dementia. documented in this encounterAcmc Healthcare System05-28-2024 History of Present illness Narrative* Lenin Chaudhary MD - 07/17/2023 9:52 AM EDT Chief Complaint Patient presents with: Follow Up: 3 month and BP follow up HPI Homero Mei is a 77 year old male who presents here today for Above Complaints.. Patient with PMH of possible alzheimer's dementia who is unaccompanied. Patient living by himself, but children come over to help with his medications. Patient admitted for GI bleed back in May and he denies new GI bleeding symptoms since his OV 1 month ago. Patient cannot remember if he has scheduled an appointment with GI at this point. Dr. Diaz checked H&H last week which did show improvement of hemoglobin to 9.7. Taking iron supplementevery other day. Denies fever/chills, abdominal pain, hematochezia, melena, SOB, lightheadedness, syncope. BP improved today from last check 1 month ago. States that he is taking his HCTZ and lisinopril as ordered without side effects. Cannot recall home BP readings. Noted his urologist recommended he stop his Flomax on 06/28 due to dizziness. Symptoms have resolved. Denies changes in urinary symptoms. Past medical history, appointments, medications, allergies reviewed. Previous Medical History PAST MEDICAL HISTORY Diagnosis Date Bilateral carpal tunnel syndrome s/p release on right Bilateral inguinal hernia s/p mesh BPH (benign prostatic hyperplasia) DDD (degenerative disc disease), lumbar resolved after discectomy Dementia (HCC) Depression Deviated septum s/p septoplasty Hyperlipidemia Iron deficiency anemia Irritable bowel syndrome 08/1997 improved Lipoma of neck left posterior neck CHRISTIANO (obstructive sleep apnea) [address] Bustamante Personal history of colonic polyps Scalp psoriasis Unspecified essential hypertension Vitamin D insufficiency Previous Surgical History PAST SURGICAL HISTORY Procedure Laterality Date BACK SURGERY HX COLON SURGERY HX COLONOSCOPY FLX DX W/COLLJ SPEC WHEN PFRMD , 11/19, 01/24, 01/29 COLONOSCOPY FLX DX W/COLLJ SPEC WHEN PFRMD 03/22/2015 Colonoscopy-repeat 5 years COLONOSCOPY FLX DX W/COLLJ SPEC WHEN PFRMD 11/23/2020 COLONOSCOPY GEN ANES 04/12/2020 Repeat in 1 year COLONOSCOPY GEN ANES 04/26/2020 3 polyps removed. 40 mm, 5 mm, 5mm. repeat in 6 months. DISKECTOMY, LUMBAR, SINGLE SP 2005 HERNIA REPAIR HX INGUINAL HERNIA REPAIR HX 07/19/2010 bilateral inguinal hernia repair with mesh NEUROPLASTY &/TRANSPOS MEDIAN NRV CARPAL TUNNE Right 03/26/2015 Carpal tunnel decomp right PAST SURGICAL HISTORY OF Left 04/10/2019 arthroscopic knee for torn meniscus RHINP PRIM LAT&ALAR CRTLGS&/ELVTN NASAL TI 2009 Rhinoplasty SKIN BIOPSY HX Family History FAMILY HISTORY Problem Relation Age of Onset Heart Mother CHF Hypertension Mother Stroke Father Hypertension Father Patient Allergies ALLERGIES No Known Allergies Current Medications Current Outpatient Medications on File Prior to Visit Medication Sig donepezil (ARICEPT) 5 mg tablet Take 1 tablet by mouth daily with breakfast. pantoprazole DR (PROTONIX) 40 mg tablet Take 40 mg by mouth two times a day. cyanocobalamin (VITAMIN B-12) 1,000 mcg tab Take 1,000 mcg by mouth once daily. tamsulosin (FLOMAX) 0.4 mg Take 1 capsule by mouth once daily. ferrous sulfate 325 mg (65 mg iron) tablet Take 1 tablet by mouth every 48 hours. hydroCHLOROthiazide 12.5 mg capsule Take 2 capsules by mouth once daily. lisinopril (ZESTRIL) 40 mg tablet Take 1 tablet by mouth once daily. sertraline (ZOLOFT) 25 mg tablet Take 1 tablet every other day for 2 weeks, then every 3rd day for 2 weeks, then stop atorvastatin (LIPITOR) 20 mg tablet Take 1 tablet by mouth once daily. fluticasone (FLONASE) 50 mcg/actuation nasal spray Use 2 Sprays in each nostril as needed. Rinse mouth after use. amLODIPine (NORVASC) 2.5 mg tablet Take 1 tablet by mouth once daily. docusate sodium (COLACE) 100 mg capsule Take 1 capsule by mouth twice daily as needed for constipation. No current facility-administered medications on file prior to visit. Social History Social History Tobacco Use Smoking status: Never Smokeless tobacco: Never Substance Use Topics Alcohol use: No Drug use: No Review of Symptoms REVIEW OF SYSTEMS GENERAL: No weight loss, malaise or fevers RESPIRATORY: Negative for cough, hemoptysis, wheezing, COPD, dyspnea or shortness of breath CARDIOVASCULAR: Negative for chest pain, leg swelling, hypertension, CHF or palpitations GI: No nausea, vomiting, or diarrhea : No history of dysuria, frequency or incontinence, No difficulty urinating, hematuria. Admits tostable nocturia 2-3 times per night. SKIN: Negative for lesions, rash, and itching EXAM: BP 144/70 Pulse 78 Resp 16 Wt 88.9 kg (196 lb) SpO2 98% BMI 25.86 kg/m General Appearance: Well appearing, alert, AOx3, in no acute distress, well- hydrated, well nourished.. Skin: Skin color, texture, turgor normal, no suspicious rashes or lesions. Lungs: Lungs clear to auscultation. No wheezing, rhonchi, rales.. Heart: RRR without murmur, gallop, or rubs. No ectopy. Abdomen: Normal abdominal exam, Abdomen soft, non-tender. Bowel sounds normal. No masses, organomegaly. Extremities: No deformities, edema, skin discoloration, clubbing or cyanosis. Good capillary refill. . Health Maintenance List RSV Vaccine(1 - 1-dose 60+ series) Never done BP Controlled (<130/80) due on 09/06/2022 Advance Directive Discussion due on 02/19/2023 Covid-19 Vaccine(2022- season) due on 05/16/2023 Colorectal Cancer Screening due on 11/24/2023 Annual PCP Team Chronic Disease Visit due on 06/19/2024 Diabetes Screening due on 06/19/2026 DTaP,Tdap,Td Vaccine(3 - Td or Tdap) due on 09/06/2026 Lipid Screening due on 09/29/2026 Influenza Vaccine Completed Hepatitis C Screening Completed Shingrix Vaccine Completed Pneumococcal Vaccine: 65+ Completed Data reviewed Latest Ref Rng 06/20/2023 WBC 3.70 - 11.00 k/uL 8.96 RBC 4.20 - 6.00 m/uL 2.97 (L) Hemoglobin 13.0 - 17.0 g/dL 8.3 (L) Hematocrit 39.0 - 51.0 % 27.1 (L) MCV 80.0 - 100.0 fL 91.2 MCH 26.0 - 34.0 pg 27.9 MCHC 30.5 - 36.0 g/dL 30.6 RDW-CV 11.5 - 15.0 % 13.7 Platelet Count 150 - 400 k/uL 353 MPV 9.0 - 12.7 fL 11.6 Neut% % 72.7 Abs Neut (ANC) 1.45 - 7.50 k/uL 6.51 Lymph% % 16.5 Abs Lymph 1.00 - 4.00 k/uL 1.48 Buchanan% % 7.5 Abs Buchanan <0.87 k/uL 0.67 Eosin% % 2.3 Abs Eosin <0.46 k/uL 0.21 Baso% % 0.4 Abs Baso <0.11 k/uL 0.04 Immature Gran % % 0.6 IMMATURE GRANS (ABS) <0.10 k/uL 0.05 NRBC /100 WBC 0.0 Absolute nRBC <0.01 k/uL <0.01 DTYPE Auto Protein, Total 6.3 - 8.0 g/dL 6.8 Albumin 3.9 - 4.9 g/dL 3.8 (L) Calcium 8.5 - 10.2 mg/dL 9.4 Bilirubin, Total 0.2 - 1.3 mg/dL <0.2 (L) Alkaline Phosphatase 38 - 113 U/L 73 AST 14 - 40 U/L 8 (L) ALT 10 - 54 U/L 10 Glucose 74 - 99 mg/dL 105 (H) BUN 9 - 24 mg/dL 18 Creatinine 0.73 - 1.22 mg/dL 1.05 Sodium 136 - 144 mmol/L 138 Potassium 3.7 - 5.1 mmol/L 4.5 Chloride 97 - 105 mmol/L 104 CO2 22 - 30 mmol/L 23 Anion Gap 9 - 18 mmol/L 11 eGFR >=60 mL/min/1.73m 74 Iron 41 - 186 ug/dL 21 (L) TIBC 232 - 386 ug/dL 272 Transferrin Saturation 15.0 - 57.0 % 7.7 (L) Ferritin 30.3 - 565.7 ng/mL 29.8 (L) Legend: (L) Low (H) High ASSESSMENT/PLAN: 1. Gastrointestinal hemorrhage, unspecified gastrointestinal hemorrhage type - ICD9: 578.9, ICD10: K92.2 (primary diagnosis) Patient denies recurrent bleeding symptoms. H&H improving. Due for repeat iron levels as ordered. Recommended he schedule f/u with GI as previously ordered. - IRON AND TIBC - FERRITIN 2. Anemia, unspecified type - ICD9: 285.9, ICD10: D64.9 Improving. See above. - COMPLETE BLOOD COUNT AND DIFFERENTIAL - IRON AND TIBC - FERRITIN 3. Essential hypertension - ICD9: 401.9, ICD10: I10 - Controlled - Continue current medications - Recommend home blood pressure monitoring, to bring results to next visit - Encouraged sodium restriction, DASH or Mediterranean diet - Recommend regular aerobic exercise - COMPREHENSIVE METABOLIC PANEL 4. Benign prostatic hyperplasia with nocturia - ICD9: 600.01, 788.43, ICD10: N40.1, R35.1 Stable without flomax. Stopped due to dizziness which has resolved. Will monitor and f/u with urology. 5. Alzheimer's dementia without behavioral disturbance, psychotic disturbance, mood disturbance, oranxiety, unspecified dementia severity, unspecified timing of dementia onset (HCC) - ICD9: 331.0, 294.10, ICD10: G30.9, F02.80 Stable. Continue Aricept. Advised to bring family with him to future appointments. Lenin Chaudhary MD documented in this encounterAcmc Healthcare System05-24-2024 Telephone encounter Note * Telephone Encounter - Arlyn Scott LPN - 07/13/2023 1:09 PM EDT [facility] message to patient to advise we don't accept outside med refill requests. Requesting he call to advise on what medications need filled. Arlyn Scott LPN [facility]05-[facility] Telephone encounter Note* Telephone Encounter - Saranya Casrtejon - 07/13/2023 12:39 PM EDT [facility] said they are patient's new pharmacy and need new scripts for these medications. [facility] Telephone encounter Note* Telephone Encounter - Saranya Castrejon - 07/13/2023 12:36 PM EDT Patient has been identified by name and date of : Yes, Provider [facility] phones for refill(s): Requested Prescriptions Pending Prescriptions Disp Refills amLODIPine (NORVASC) 2.5 mg tablet 90 tablet 1 Sig: Take 1 tablet by mouth once daily. atorvastatin (LIPITOR) 20 mg tablet 90 tablet 1 Sig: Take 1 tablet by mouth once daily. cyanocobalamin (VITAMIN B-12) 1,000 mcg tab Sig: Take 1 tablet by mouth once daily. ferrous sulfate 325 mg (65 mg iron) tablet 45 tablet 0 Sig: Take 1 tablet by mouth every [address] (PROTONIX) 40 mg tablet Sig: Take 1 tablet by mouth two times a day. fluticasone (FLONASE) 50 mcg/actuation nasal spray 1 Each 2 Sig: Use 2 Sprays in each nostril as needed. Rinse mouth after use. Date of last office visit in primary care: 06/20/2023 Date of next office visit in primary care: 07/17/2023 Please advise. Thank you. Saranya Braswell. [facility]05-23-2024 Telephone encounter Note* Telephone Encounter - Arlyn Scott LPN - 07/12/2023 4:16 PM EDT Medication list forwarded as requested. Arlyn Scott LPN [facility]05-23-2024 Miscellaneous Notes* Telephone Encounter - Arlyn Scott LPN - 07/12/2023 4:16 PM EDT Medication list forwarded as requested. Arlyn Scott LPN * Telephone Encounter - Nickie Hernández - 07/12/2023 4:03 PM EDT POA (patient's son) returned call and authorized the patient's medication list to be faxed to [facility] at [phone]. * Telephone Encounter - Isaura Haji LPN - 07/11/2023 4:23 PM EDT Upon chart review it looks like all recent medications have been sent to [facility]. I just want to verify with patient and POA that they're ok with [facility] pharmacy receiving a medication list. Telephone call placed to POA son Indy, message left with detailed message on verified VM to call office back with decision. Isaura Haji LPN * Telephone Encounter - Arlyn Oswald - 07/11/2023 11:57 AM EDT [facility] called requesting to fax patient medication list to them at [phone] Thank you documented in this encounterAcmc Healthcare System05-23-2024 Telephone encounter Note * Telephone Encounter - Nickie Hernández - 07/12/2023 4:03 PM EDT PONilda (patient's son) returned call and authorized the patient's medication list to be faxed to [facility] at [phone]. [facility]05-22-2024 Telephone encounter Note* Telephone Encounter - Isaura Haji LPN - 07/11/2023 4:23 PM EDT Upon chart review it looks like all recent medications have been sent to [facility]. I just want to verify with patient and POA that they're ok with [facility] pharmacy receiving a medication list. Telephone call placed to POA son Indy, message left with detailed message on verified VM to call office back with decision. Isaura Haji LPN [facility]05-22-2024 Telephone encounter Note* Telephone Encounter - Arlyn Oswald - 07/11/2023 11:57 AM EDT [facility] called requesting to fax patient medication list to them at [phone] Thank you T [facility] Work Phone: 1(858) 372-301005-22-2024 Telephone encounter Note* Telephone Encounter - Barry Christian APRN.CNP - 07/11/2023 11:03 AM EDT The following approved medication requests have been transmitted electronically. Requested Prescriptions Signed Prescriptions Disp Refills donepezil (ARICEPT) 5 mg tablet 30 tablet 2 Sig: Take 1 tablet by mouth daily with breakfast. Authorizing Provider: BARRY CHRISTIAN APRN.CNP T [facility]05-22-2024 Miscellaneous Notes* Telephone Encounter - Barry Christian APRN.CNP - 07/11/2023 11:03 AM EDT The following approved medication requests have been transmitted electronically. Requested Prescriptions Signed Prescriptions Disp Refills donepezil (ARICEPT) 5 mg tablet 30 tablet 2 Sig: Take 1 tablet by mouth daily with breakfast. Authorizing Provider: BARRY CHRISTIAN APRN.POLISHING MACHINE TENDER documented in this encounterAcmc Healthcare System05-17-2024 Telephone encounter Note * Telephone Encounter - Isaura Haji LPN - 07/06/2023 9:12 AM EDT Maren rivera, detailed message left on [employer]. Instructed to call office back if has any further questions. Isaura Haji LPN [facility]05-17-2024 Miscellaneous Notes* Telephone Encounter - Isaura Haji LPN - 07/06/2023 9:12 AM EDT Maren rivera, detailed message left on secure [employer]. Instructed to call office back if has any further questions. Isaura Haji LPN * Telephone Encounter - Lenin Chaudhary MD - 07/05/2023 4:52 PM EDT Agree. * Telephone Encounter - Tawana Hopkins RN - 07/05/2023 3:56 PM EDT Maren GIORDANO calling from [facility] to report plan of care for patient and speech therapy will visit patient 1 time a week for 2 weeks. Speech therapy will work with patient on cognitive intervention (provide education for family due to dementia). Please review and Advise, and give call back Tawana Hopkins RN documented in this encounterAcmc Healthcare System05-16-2024 Telephone encounter Note * Telephone Encounter - Lenin Chaudhary MD - 07/05/2023 4:52 PM EDT Agree. [facility]05-16-2024 Telephone encounter Note* Telephone Encounter - Tawana Hopkins RN - 07/05/2023 3:56 PM EDT Maren GIORDANO calling from [facility] to report plan of care for patient and speech therapy will visit patient 1 time a week for 2 weeks. Speech therapy will work with patient on cognitive intervention (provide education for family due to dementia). Please review and Advise, and give call back Tawana Hopkins RN [facility]05-13-2024 Telephone encounter Note* Telephone Encounter - Angi Montana RN - 07/02/2023 8:08 AM EDT Called and left a detailed voicemail notifying Nickie with [facility] of providers message. Clinic phone number was left in case she had any questions. Angi Montana RN [facility]05-13-2024 Miscellaneous Notes* Telephone Encounter - Angi Montana RN - 07/02/2023 8:08 AM EDT Called and left a detailed voicemail notifying Nickie with [facility] of providers message. Clinic phone number was left in case she had any questions. Angi Montana RN * Telephone Encounter - Lenin Chaudhary MD - 06/30/2023 8:07 AM EDT OK for verbal order. * Telephone Encounter - Angi Montana RN - 06/29/2023 4:04 PM EDT Nickie with [facility] called in and was requesting a verbal order for one more additional OT visit. She was also asking for ST for dementia and cognition. documented in this encounterAcmc Healthcare System05-11-2024 Telephone encounter Note * Telephone Encounter - Lenin Chaudhary MD - 06/30/2023 8:07 AM EDT OK for verbal order. [facility]05-10-2024 Telephone encounter Note* Telephone Encounter - Angi Montana RN - 06/29/2023 4:04 PM EDT Nickie with [facility] called in and was requesting a verbal order for one more additional OT visit. She was also asking for ST for dementia and cognition. [facility]05-10-2024 Nurse Note* Divya Alberto MA - 06/29/2023 8:39 AM EDT Post void bladder scan completed. 30 ml residual remaining. Results reported to Dr. Laurent [facility]05-10-2024 Nurse Note* Divya Alberto MA - 06/29/2023 8:39 AM EDT Post void bladder scan completed. 30 ml residual remaining. Results reported to Dr. Laurent documented in this encounterAcmc Healthcare System05-10-2024 History of Present illness Narrative* Rahat Laurent MD - 06/29/2023 8:34 AM EDT Images from the original note were not included. [facility] NOTE Patient: Homero Mei Provider: Rahat Laurent MD : 1945 Date of Service: 06/29/2023 PCP: Lenin Chaudhary MD Chief complaint/Identification: Homero Mei is a 77 year old male patient who presents forevaluation of urinary retention. ASSESSMENT: 1. Benign prostatic hyperplasia with urinary frequency - ICD9: 600.01, 788.41, ICD10: N40.1, R35.0 (primary diagnosis) 2. Retention of urine - ICD9: 788.20, ICD10: R33.9 3. Urinary tract infection without hematuria, site unspecified - ICD9: 599.0, ICD10: N39.0 Unclear hx of urinary retention during recent admission Unclear hx of UTI, unsure if related to catheter colonization or symptomatic episode Minimal LUTS, low PVR Has noted some dizziness, possible side effect of Flomax PLAN: Given dizziness, can stop Flomax and see if he notices difference off of it Follow up in 1 year with ED for AUSYLVESTER, PVR Rahat Laurent MD HPI: Homero Mei is a 77 year old year old male who is being seen for urinary retention. Last month, was admitted with GI bleed. Sanz was reportedly placed for urinary retention, and was left in for ~2 weeks. Catheter was removed about 2 weeks ago. Had MSSA UCx, but unclear if it was before or after catheter placement. Now having no issues with urinating. Started on Flomax Good stream. Usually empties well. Less then half the time, notes some frequency. No significant urgency. Usually no nocturia. Fam hx CaP: None PSA: 1.06 (06/2020) Prostate size: Unknown Current meds: Flomax Prior/failed meds: None PVR 30 mL OTHER UROLOGIC HISTORY: - Kidney/Bladder/Prostate/Testis cancer: No REVIEW OF SYSTEMS: A ROS was performed and pertinent negatives and positives can be found in the HPI. RELEVANT IMAGING STUDIES (most recent): RBUS: 06/15/2023 Right Kidney: -Renal length: 10.4 cm -Parenchyma: Normal parenchymal echogenicity. Normal parenchymal thickness. -Collecting system: No hydronephrosis. -Calculus: No echogenic, shadowing calculus. -Lesion: 0.8 cm anechoic cyst of the superior pole without significant posterior acoustic changes. Left Kidney: -Renal length: 10.2 cm -Parenchyma: Normal parenchymal echogenicity. Normal parenchymal thickness. -Collecting system: No hydronephrosis. -Calculus: No echogenic, shadowing calculus. -Lesion: None. Bladder: Decompressed by Sanz catheter and poorly assessed. LABS/INVESTIGATIONS: Urine Chemstrip: NA Creatinine Date Value Ref Range Status 06/20/2023 1.05 0.73 - 1.22 mg/dL Final 01/15/2023 1.12 0.73 - 1.22 mg/dL Final 06/21/2022 0.95 0.73 - 1.22 mg/dL Final 05/29/2022 1.00 0.73 - 1.22 mg/dL Final Hemoglobin (g/dL) Date Value 06/20/2023 8.3 02/28/2021 13.7 Hematocrit (%) Date Value 06/20/2023 27.1 02/28/2021 42.4 WBC (k/uL) Date Value 06/20/2023 8.96 02/28/2021 9.64 PSA (ng/mL) Date Value 06/05/2018 1.77 05/20/2014 1.27 05/16/2013 1.41 PSA Screening (ng/mL) Date Value 06/30/2020 1.06 12/08/2019 0.95 HISTORIES FAMILY HISTORY Problem Relation Age of Onset Heart Mother CHF Hypertension Mother Stroke Father Hypertension Father PAST MEDICAL HISTORY Diagnosis Date Bilateral carpal tunnel syndrome s/p release on right Bilateral inguinal hernia s/p mesh BPH (benign prostatic hyperplasia) DDD (degenerative disc disease), lumbar resolved after discectomy Dementia (HCC) Depression Deviated septum s/p septoplasty Hyperlipidemia Iron deficiency anemia Irritable bowel syndrome 08/1997 improved Lipoma of neck left posterior neck CHRISTIANO (obstructive sleep apnea) [address] Bustamante Personal history of colonic polyps Scalp psoriasis Unspecified essential hypertension Vitamin D insufficiency PAST SURGICAL HISTORY Procedure Laterality Date BACK SURGERY HX COLON SURGERY HX COLONOSCOPY FLX DX W/COLLJ SPEC WHEN PFRMD , 11/19, 01/24, 01/29 COLONOSCOPY FLX DX W/COLLJ SPEC WHEN PFRMD 03/22/2015 Colonoscopy-repeat 5 years COLONOSCOPY FLX DX W/COLLJ SPEC WHEN PFRMD 11/23/2020 COLONOSCOPY GEN ANES 04/12/2020 Repeat in 1 year COLONOSCOPY GEN ANES 04/26/2020 3 polyps removed. 40 mm, 5 mm, 5mm. repeat in 6 months. DISKECTOMY, LUMBAR, SINGLE SP 2005 HERNIA REPAIR HX INGUINAL HERNIA REPAIR HX 07/19/2010 bilateral inguinal hernia repair with mesh NEUROPLASTY &/TRANSPOS MEDIAN NRV CARPAL TUNNE Right 03/26/2015 Carpal tunnel decomp right PAST SURGICAL HISTORY OF Left 04/10/2019 arthroscopic knee for torn meniscus RHINP PRIM LAT&ALAR CRTLGS&/ELVTN NASAL TI 2008 Rhinoplasty SKIN BIOPSY HX Social History Tobacco Use Smoking status: Never Smokeless tobacco: Never Substance Use Topics Alcohol use: No Drug use: No ALLERGIES No Known Allergies Current Outpatient Medications Medication Sig Dispense Refill pantoprazole DR (PROTONIX) 40 mg tablet Take 40 mg by mouth two times a day. cyanocobalamin (VITAMIN B-12) 1,000 mcg tab Take 1,000 mcg by mouth once daily. tamsulosin (FLOMAX) 0.4 mg Take 1 capsule by mouth once daily. 90 capsule 0 ferrous sulfate 325 mg (65 mg iron) tablet Take 1 tablet by mouth every 48 hours. 45 tablet 0 hydroCHLOROthiazide 12.5 mg capsule Take 2 capsules by mouth once daily. 180 capsule 1 lisinopril (ZESTRIL) 40 mg tablet Take 1 tablet by mouth once daily. 90 tablet 1 donepezil (ARICEPT) 5 mg tablet Take 1 tablet by mouth daily with breakfast. 30 tablet 2 sertraline (ZOLOFT) 25 mg tablet Take 1 tablet every other day for 2 weeks, then every 3rd day for 2 weeks, then stop amLODIPine (NORVASC) 2.5 mg tablet Take 1 tablet by mouth once daily. 90 tablet 1 atorvastatin (LIPITOR) 20 mg tablet Take 1 tablet by mouth once daily. 90 tablet 1 fluticasone (FLONASE) 50 mcg/actuation nasal spray Use 2 Sprays in each nostril as needed. Rinse mouth after use. 1 Each 2 docusate sodium (COLACE) 100 mg capsule Take 1 capsule by mouth twice daily as needed for constipation. 60 capsule 5 No current facility-administered medications for this visit. PHYSICAL EXAMINATION: Vitals: Ht 185.4 cm (6' 1) Wt 91.2 kg (201 lb) BMI 26.52 kg/m BMI: Body mass index is 26.52 kg/m . Constitutional: Apparent distress -No Psych: Alert & oriented - Yes; : Deferred documented in this encounterAcmc [facility] System05-03-2024 Telephone encounter Note * Telephone Encounter - Lenin Chaudhary MD - 06/22/2023 11:02 AM EDT Reviewed. [facility]05-03-2024 Miscellaneous Notes* Telephone Encounter - Lenin Chaudhary MD - 06/22/2023 11:02 AM EDT Reviewed. * Telephone Encounter - Alyssa Valentin LPN - 06/22/2023 10:14 AM EDT Dennis from [facility] calling with PT plan of care, did evaluation today and plan to complete5 visits with the patient. No need for any return call. documented in this encounterAcmc Healthcare System05-03-2024 Telephone encounter Note * Telephone Encounter - Alyssa Valentin LPN - 06/22/2023 10:14 AM EDT Dennis from [facility] calling with PT plan of care, did evaluation today and plan to complete5 visits with the patient. No need for any return call. [facility]05-02-2024 Telephone encounter Note* Telephone Encounter - Arlyn Scott LPN - 06/21/2023 4:50 PM EDT Phoned [facility] and VM left on [employer] secure VM that PCP gave verbal order as requested. [facility]05-02-2024 Miscellaneous Notes* Telephone Encounter - Arlyn Scott LPN - 06/21/2023 4:50 PM EDT Phoned [facility] and VM left on [employer] secure VM that PCP gave verbal order as requested. * Telephone Encounter - Lenin Chaudhary MD - 06/21/2023 4:38 PM EDT Reviewed and agree. Verbal order given as requested. * Telephone Encounter - Sylwia Nguyen LPN - 06/21/2023 4:25 PM EDT [facility] calling to let you know they opened pt with home care Plan of care will be seeingpt 1 time a week for 6 weeks for education related to UTI. Requesting verbal order approval on planof care Please advise [facility] back at PH: [phone] Requested to 2 office visits faxed to them. FAX: [phone]. Done. Sylwia Nguyen LPN documented in this encounterAcmc Healthcare System05-02-2024 Telephone encounter Note * Telephone Encounter - Lenin Chaudhary MD - 06/21/2023 4:38 PM EDT Reviewed and agree. Verbal order given as requested. [facility]05-02-2024 Telephone encounter Note* Telephone Encounter - Sylwia Nguyen LPN - 06/21/2023 4:25 PM EDT [facility] calling to let you know they opened pt with home care Plan of care will be seeingpt 1 time a week for 6 weeks for education related to UTI. Requesting verbal order approval on planof care Please advise [facility] back at PH: [phone] Requested to 2 office visits faxed to them. FAX: [phone]. Done. Sylwia Nguyen LPN [facility]05-02-2024 Telephone encounter Note* Telephone Encounter - Camila Cortes LPN - 06/21/2023 10:54 AM EDT Patient's son Indy Mei called in with requesting results. Notified of results. Camila Cortes LPN [facility] Work Phone: 1(189) 170-839805-02-2024 Miscellaneous Notes* Telephone Encounter - Camila Cortes LPN - 06/21/2023 10:54 AM EDT Patient's son Indy Mei called in with requesting results. Notified of results. Camila Cortes LPN * Telephone Encounter - Arlyn Scott LPN - 06/21/2023 9:25 AM EDT Phoned primary contact number and message left for return call to review results and recommendations. Arlny Scott LPN * Telephone Encounter - July Richards APRN.CNP - 06/21/2023 7:48 AM EDT Anemia improving. Stores of iron and iron levels low- continue iron supplement. Follow-up with Dr. Chaudhary as scheduled and make appointment to follow-up with MARIE. July Richards APRN.TADEO documented in this encounterAcmc Healthcare System05-02-2024 Telephone encounter Note * Telephone Encounter - Briseida Marte - 06/21/2023 10:42 AM EDT Spoke to Indy. States that patient now lives in [facility]. I offered Nath[facility], [facility], or [facility] for appointments. Indy said that he wanted to try to get something closer to where patient lives, as transporting him can be challenging. He said that if he can't find someone closer, that he would call back and schedule in [place]. [facility] [id number] Miscellaneous Notes* Telephone Encounter - Briseida Marte - 06/21/2023 10:42 AM EDT Spoke to Indy. States that patient now lives in [place]. I offered [place], [place], or [place] for appointments. Indy said that he wanted to try to get something closer to where patient lives, as transporting him can be challenging. He said that if he can't find someone closer, that he would call back and schedule in [place]. * Telephone Encounter - Gabriel Snider - 06/20/2023 1:39 PM EDT Name of caller: Indy Contact phone number: [phone] Relationship to Patient: Son Provider: NEW PATIENT Practice: [facility] Chief Complaint/Reason for Call: Pt discharged 06/18/23 for low hemoglobin and was advised to schedule with [facility] as a new patient to be seen within a week. Please advise. Best time of day caller can be reached: ANy Patient advised that office/PCP has 24-48 business hours to return their call: Yes documented in this encounterSRegency Hospital Cleveland [id number] Telephone encounter Note* Telephone Encounter - Arlyn Scott LPN - 06/21/2023 9:25 AM EDT Phoned primary contact number and message left for return call to review results and recommendations. Arlyn Scott LPN [facility]05-02-2024 Telephone encounter Note* Telephone Encounter - Maren Pinto LPN - 06/21/2023 9:03 AM EDT Unable to contact patient X2 [id number] Miscellaneous Notes* Telephone Encounter - Maren Pinto LPN - 06/21/2023 9:03 AM EDT Unable to contact patient X2 * Telephone Encounter - Maren Pinto LPN - 06/19/2023 9:31 AM EDT S: Patient admitted to: [facility] 06/12/23 B: Discharged on : 06/18/23 A: Hospital follow up call initiated to discuss any medication changes, follow up appointments and discharge instructions: Encephalopathy R: No contact x 1 at : [phone] documented in this encounterSRegency Hospital Cleveland [id number] Telephone encounter Note* Telephone Encounter - July Richards APRN.CNP - 06/21/2023 7:48 AM EDT Anemia improving. Stores of iron and iron levels low- continue iron supplement. Follow-up with Dr. Chaudhary as scheduled and make appointment to follow-up with MARIE. July Richards APRN.CNP [facility]05-01-2024 Telephone encounter Note* Telephone Encounter - Gabriel Snider - 06/20/2023 1:39 PM EDT Name of caller: Indy Contact phone number: [phone] Relationship to Patient: Son Provider: NEW PATIENT Practice: [facility] Chief Complaint/Reason for Call: Pt discharged 06/18/23 for low hemoglobin and was advised to schedule with [facility] as a new patient to be seen within a week. Please advise. Best time of day caller can be reached: ANy Patient advised that office/PCP has 24-48 business hours to return their call: Yes [facility] [id number] Telephone encounter Note* Telephone Encounter - Elaine Marie MA - 06/20/2023 10:45 AM EDT Pt showed for his 0940 OV at 0957 today. Detailed VM left for Laure. Elaine Marie MA [facility]05-01-2024 Miscellaneous Notes* Telephone Encounter - Elaine Marie MA - 06/20/2023 10:45 AM EDT Pt showed for his 0940 OV at 0957 today. Detailed VM left for Laure. Elaine Marie MA * Telephone Encounter - Lenin Chaudhary MD - 06/20/2023 9:52 AM EDT Ok to delay start of care. He has missed his appointment today. OV was scheduled for 9:40 am. * Telephone Encounter - Alyssa Valentin LPN - 06/20/2023 9:21 AM EDT Laure from [facility] calling asking for a delay of care verbal order to start care tomorrow. Patient has appt with PCP today. Please advise documented in this encounterAcmc Healthcare System05-01-2024 History of Present illness Narrative* Lenin Chaudahry MD - 06/20/2023 10:14 AM EDT Chief Complaint Patient presents with: [facility] F/U [facility] Homero Mei is a 77 year old male who presents here today for Hospital Discharge Follow up. Accompanied today by son. Patient was admitted to [facility] from 06/03 to 06/07 for GI bleed and acute blood loss anemia. Initially presented to the ER with confusion and was found to be anemic. Transfused 2 units of PRBCs. Admitted for EGD which showed bleeding gastric ulcer with visible vessel that was injected with heater probe.Required additional 1 unit of PRBCs after the procedure. Stay complicated by dementia and delrium while inpatient. Started on Protonix 40 mg BID and ferrous sulfate every other day. Given tamsulosin for urinary retention while inpatient as well. Discharged to SNF at [facility] for dementia until 06/10 when he was readmitted to [facility] until 06/17 for acute metabolic encephalopathy with melena and anemia with following hospital course: patient with acute metabolic encephalopathy with anemia and recent admission to [facility] for bleeding gastric ulcer. Hgb of 7.7 when discharged from [facility]. Continued to have black and bloody stool. Transfused 1 unit PRBC on 06/13/23 due to hgb in the 6 range. Worsening mentation off baseline dementia on presentation, found to have UTI, on broad coverage abx, mentation improved. Urine cultures found to be positive for MSSA. Repeat BC negative after starting abx. Renal US BL negative for acute lesions. Discussed with IDabx stewardship committee, recommended PO Keflex through 06/23/23. Patient Hgb stable after PRBC. Found to be B12 deficient started on PO B12 supplementation. Patient was evaluated by PT/OT recommendedreturn to SNF for further therapy. Geriatrics on consult. Patient ambulation improved, insurance denied SNF placement due to improving ambulation. Patient cleared by GI for discharge. Patient discharged to home in improved and stable condition on 06/18/23. Patient to follow up with PCP and [facility] outpatient in 1-2 weeks. Son reports that the patient did not meet criteria for SNF, so was discharged with [facility] for SN and PT. Memory impairment seems to be back to his baseline, though he has had some more confusion in the evenings. Compliant with Keflex 1,000 mg TID. Admits to occasional dysuria. Denies hematuria, frequency, urgency, fever/chills, abdominal pain, flank pain, nausea/vomiting. Tolerating PPI BID as prescribed. Patient denies hematochezia, melena, SOB, lightheadedness/dizziness. Has been out of his iron supplement since 06/17. Patient has appointment with urology on 06/28 for urinary retention. He has not scheduled with GI. Needs referral order. [facility] to come out tomorrow. Patient still living independently. Son is looking into meals on wheels. BP elevated today. Patient has not been on his HCTZ and lisinopril since discharge because it was not listed on his med rec on discharge. Past medical history, appointments, medications, allergies reviewed. Previous Medical History PAST MEDICAL HISTORY Diagnosis Date Bilateral carpal tunnel syndrome s/p release on right Bilateral inguinal hernia s/p mesh BPH (benign prostatic hyperplasia) DDD (degenerative disc disease), lumbar resolved after discectomy Dementia (HCC) Depression Deviated septum s/p septoplasty Hyperlipidemia Iron deficiency anemia Irritable bowel syndrome 08/1997 improved Lipoma of neck left posterior neck CHRISTIANO (obstructive sleep apnea) [address] Bustamante Personal history of colonic polyps Scalp psoriasis Unspecified essential hypertension Vitamin D insufficiency Previous Surgical History PAST SURGICAL HISTORY Procedure Laterality Date BACK SURGERY HX COLON SURGERY HX COLONOSCOPY FLX DX W/COLLJ SPEC WHEN PFRMD , 11/19, 01/24, 01/29 COLONOSCOPY FLX DX W/COLLJ SPEC WHEN PFRMD 03/22/2015 Colonoscopy-repeat 5 years COLONOSCOPY FLX DX W/COLLJ SPEC WHEN PFRMD 11/23/2020 COLONOSCOPY GEN ANES 04/12/2020 Repeat in 1 year COLONOSCOPY GEN ANES 04/26/2020 3 polyps removed. 40 mm, 5 mm, 5mm. repeat in 6 months. DISKECTOMY, LUMBAR, SINGLE SP 2005 HERNIA REPAIR HX INGUINAL HERNIA REPAIR HX 07/19/2010 bilateral inguinal hernia repair with mesh NEUROPLASTY &/TRANSPOS MEDIAN NRV CARPAL TUNNE Right 03/26/2015 Carpal tunnel decomp right PAST SURGICAL HISTORY OF Left 04/10/2019 arthroscopic knee for torn meniscus RHINP PRIM LAT&ALAR CRTLGS&/ELVTN NASAL TI 2009 Rhinoplasty SKIN BIOPSY HX Family History FAMILY HISTORY Problem Relation Age of Onset Heart Mother CHF Hypertension Mother Stroke Father Hypertension Father Patient Allergies ALLERGIES No Known Allergies Current Medications Current Outpatient Medications on File Prior to Visit Medication Sig cephALEXin (KEFLEX) 250 mg capsule Take 1,000 mg by mouth three times a day. pantoprazole DR (PROTONIX) 40 mg tablet Take 40 mg by mouth two times a day. tamsulosin (FLOMAX) 0.4 mg Take 0.4 mg by mouth once daily. ferrous sulfate 325 mg (65 mg iron) tablet Take 325 mg by mouth every 48 hours. cyanocobalamin (VITAMIN B-12) 1,000 mcg tab Take 1,000 mcg by mouth once daily. amLODIPine (NORVASC) 2.5 mg tablet Take 1 tablet by mouth once daily. atorvastatin (LIPITOR) 20 mg tablet Take 1 tablet by mouth once daily. fluticasone (FLONASE) 50 mcg/actuation nasal spray Use 2 Sprays in each nostril as needed. Rinse mouth after use. docusate sodium (COLACE) 100 mg capsule Take 1 capsule by mouth twice daily as needed for constipation. donepezil (ARICEPT) 5 mg tablet Take 1 tablet by mouth daily with breakfast. sertraline (ZOLOFT) 25 mg tablet Take 1 tablet every other day for 2 weeks, then every 3rd day for 2 weeks, then stop meloxicam (MOBIC) 15 mg tablet Take 1 tablet by mouth once daily. lisinopril (ZESTRIL) 40 mg tablet Take 1 tablet by mouth once daily. hydroCHLOROthiazide 12.5 mg capsule Take 2 capsules by mouth once daily. No current facility-administered medications on file prior to visit. Social History Social History Tobacco Use Smoking status: Never Smokeless tobacco: Never Substance Use Topics Alcohol use: No Drug use: No Review of Symptoms REVIEW OF SYSTEMS GENERAL: No weight loss, malaise or fevers HEENT: Negative for frequent or significant headaches, No changes in hearing or vision, no nose bleeds or other nasal problems NECK: Negative for lumps, goiter, pain and significant neck swelling RESPIRATORY: Negative for cough, hemoptysis, wheezing, COPD, dyspnea or shortness of breath CARDIOVASCULAR: Negative for chest pain, leg swelling, hypertension, CHF or palpitations GI: No nausea, vomiting, or diarrhea EXAM: BP 180/98 Pulse 67 Resp 16 Wt 90.7 kg (200 lb) BMI 26.39 kg/m General Appearance: Well appearing, alert, in no acute distress, well-hydrated, well nourished.. Skin: Skin color, texture, turgor normal, no suspicious rashes or lesions. Lungs: Lungs clear to auscultation. No wheezing, rhonchi, rales.. Heart: RRR without murmur, gallop, or rubs. No ectopy. Abdomen: Normal abdominal exam, Abdomen soft, non-tender. Bowel sounds normal. No masses, organomegaly. Extremities: No deformities, edema, skin discoloration, clubbing or cyanosis. Good capillary refill. Health Maintenance List RSV Vaccine(1 - 1-dose 60+ series) Never done BP Controlled (<130/80) due on 09/06/2022 Advance Directive Discussion due on 02/19/2023 Covid-19 Vaccine(2022- season) due on 05/16/2023 Colorectal Cancer Screening due on 11/24/2023 Annual PCP Team Chronic Disease Visit due on 06/19/2024 Diabetes Screening due on 06/17/2026 DTaP,Tdap,Td Vaccine(3 - Td or Tdap) due on 09/06/2026 Lipid Screening due on 09/29/2026 Influenza Vaccine Completed Hepatitis C Screening Completed Shingrix Vaccine Completed Pneumococcal Vaccine: 65+ Completed ASSESSMENT/PLAN: 1. Gastrointestinal hemorrhage, unspecified gastrointestinal hemorrhage type - ICD9: 578.9, ICD10: K92.2 (primary diagnosis) No recurrent bleeding symptoms per patient and son. Continue protonix BID. Will refill iron supplement. Check labs today as ordered and will call with results. Needs to schedule f/u with GI. - COMPLETE BLOOD COUNT AND DIFFERENTIAL - IRON AND TIBC - FERRITIN - FERROUS SULFATE 325 MG (65 MG IRON) TABLET - CONSULT TO GASTROENTEROLOGY 2. Acute gastric ulcer with hemorrhage - ICD9: 531.00, ICD10: K25.0 See above. - COMPLETE BLOOD COUNT AND DIFFERENTIAL - IRON AND TIBC - FERRITIN - FERROUS SULFATE 325 MG (65 MG IRON) TABLET - CONSULT TO GASTROENTEROLOGY 3. Anemia, unspecified type - ICD9: 285.9, ICD10: D64.9 See above. - COMPLETE BLOOD COUNT AND DIFFERENTIAL - IRON AND TIBC - FERRITIN - FERROUS SULFATE 325 MG (65 MG IRON) TABLET - CONSULT TO GASTROENTEROLOGY 4. Acute cystitis without hematuria - ICD9: 595.0, ICD10: N30.00 Symptoms improved. Continue Keflex as prescribed. Recheck in 2 weeks. Push PO fluids. Red flags forre-assessment reviewed with patient in detail. - COMPREHENSIVE METABOLIC PANEL 5. Urinary retention - ICD9: 788.20, ICD10: R33.9 Improved with flomax. Refill sent. F/u with urology as scheduled. - TAMSULOSIN 0.4 MG CAPSULE - COMPREHENSIVE METABOLIC PANEL 6. Alzheimer's dementia without behavioral disturbance, psychotic disturbance, mood disturbance, oranxiety, unspecified dementia severity, unspecified timing of dementia onset (HCC) - ICD9: 331.0, 294.10, ICD10: G30.9, F02.80 Back to baseline. Discussed concerns with patient living alone. Advised son to start looking into shelter for progressive dementia. Recheck in 2 weeks. Red flags for re-assessment reviewed with patient in detail. 7. Age-related physical debility - ICD9: 797, ICD10: R54 F/u with SN and PT at home. 8. Essential hypertension - ICD9: 401.9, ICD10: I10 - Uncontrolled Restart Lisinopril and HCTZ - Recommend home blood pressure monitoring, to bring results to next visit - Encouraged sodium restriction, DASH or Mediterranean diet - Recommend regular aerobic exercise - Follow up in 2 weeks for hypertension visit - HYDROCHLOROTHIAZIDE 12.5 MG CAPSULE - LISINOPRIL 40 MG TABLET I spent a total of 40 minutes on the date of the service which included preparing to see the patient, [id number] patient care, completing clinical documentation, obtaining and/or reviewing separately obtained history, performing a medically appropriate examination, counseling and educating the pat ient/family/caregiver, and ordering medications, tests, or procedures. Lenin Chaudhary MD documented [facility] this encounter[facility] Telephone encounter Note * Telephone Encounter - Lenin Chaudhary MD - 06/20/2023 9:52 AM EDT Ok to delay start of care. He has missed his appointment today. OV was scheduled for 9:40 am. [facility]05-01-[facility] Telephone encounter Note* Telephone Encounter - Alyssa Valentin LPN - 06/20/2023 9:21 AM EDT Laure from [facility] calling asking for a delay of care verbal order to start care tomorrow. Patient has appt with PCP today. Please advise [facility]04-30-2024 Telephone encounter Note* Telephone Encounter - Maren Pinto LPN - 06/19/2023 9:31 AM EDT S: Patient admitted to: [facility] 06/12/23 B: Discharged on : 06/18/23 A: Hospital follow up call initiated to discuss any medication changes, follow up appointments and discharge instructions: Encephalopathy R: No contact x 1 at : [phone] [id number] NoteCare Management Progress Note Spoke with Fanta at [facility], insurance is denying re-admit to [facility]. Patient is ambulating 90 ft with WW and SBA, does not qualify for SNF. Spoke with son Indy, he is fine with patient going home alone. [facility] notified of DC, set up with [facility]. DC order written and signed by Dr. Aponte. Indy is arranging for someone to come pick him up and transport patient home. DC to home with [facility] in stable condition. Discharge Milestones and Delays Expected Date/Time: 06/18/2023 Disposition: Home or Self Care Transport status: No current request Discharge Milestones Completed Place discharge order Complete med reconciliation Case mgmt discharge readiness Clinical Stability Diagnsotic Workup Expected Discharge History Expected Date/Time Set By Reviewed At 06/18/2023 Alphonse Aponte DO 06/18/2023 11:03 AM Auth started today 06/18/2023 Laure Prabhakar RN 06/18/2023 9:04 AM 06/18/2023 Laure Prabhakar RN 06/15/2023 8:37 AM SNF Admin wants to wait until Mon See how pt does off Seroquel Will start Auth 06/15/2023 Laure Prabhakar RN 06/14/2023 8:34 AM GI and Geriatrics saw GI:[facility]: Added Melatonin 06/14/2023 BETZAIDA Ledesma 06/13/2023 10:25 AM From [facility] 06/14/2023 Kodak Tejeda DO 06/13/2023 1:16 AM 06/14/2023 Kodak Tejeda, 06/12/2023 9:43 PM Length of Stay (Days): 6 LOS: [address] [place], [place] [id number] Telephone encounter Note* Telephone Encounter - Quattrocchi, Alyssa, BUILDING ANALYST/SUPERVISOR - 06/18/2023 3:06 PM EDT Yoselin from [facility] calling they will be doing long term and PT/OT for the patient, orders were sent from [facility] to their service. Went over notes below from Dr Chaudhary with understanding. [facility]04-29-2024 Miscellaneous Notes* Telephone Encounter - Alyssa Valentin LPN - 06/18/2023 3:06 PM EDT Yoselin from [facility] calling they will be doing long term and PT/OT for the patient, orders were sent from [facility] to their service. Went over notes below from Dr Chaudhary with understanding. * Telephone Encounter - Lenin Chaudhary MD - 06/18/2023 11:26 AM EDT Yes, will sign and accept. Please schedule f/u in 1 week and obtain records. * Telephone Encounter - Alyssa Valentin LPN - 06/18/2023 11:14 AM EDT Teresa Nursing Care Attendant [facility] calling patient is being discharged today, was therefor encephalopathy. Patient will have long term and physical therapy, asking if PCP would follow patient and sign orders? Please advise documented in this encounterAcmc [facility]04-29-2024 [facility] accepted referral. SonIndy, called and informed. Home care set up. [facility]04-29-2024 History of Present illness Narrative* Jamilah Elmore, TALENT DEVELOPMENT MANAGER - 06/18/2023 2:07 PM EDT Images from the original note were not included. PHYSICAL THERAPY [facility] Treatment Note Name/MRN: Homero Mei ([id number]) Date of : 1945 Age: 77 y.o. Room[facility]Bed: [facility] A Visit #: 2 out of 7 visits Discharge Recommendation: Nursing Home Facility Other: TBD at next level of care Prior Level of Function ADL Assistance: Independent Ambulation Assistance: Independent Device(s) used: none - FWW PRN Transfer Assistance: Independent Assessment Pt demos good participation in session and is progressing toward PT goals. Pt completed sit to stands with CGA/SBA, ambulation with FWW with CGA, and ambulation with no device with CGA/Darell. Pt is limited by decreased safety awareness and impaired balance. Pt will benefit from continued skilled PT to improve overall independence and safety with mobility. Recommend SNF. Subjective Patient pleasant and agreeable to therapy. Pain: Pt denies any current pain. Medical Precautions: No active isolations Proper PPE donned/doffed in accordance with facility standards. Fall Risk: Gomez Fall Risk Score: 60 (High Risk) Precautions/Restrictions: N/A Overall Cognitive Status: Exceptions - Safety judgement: decreased awareness of need for assistance and decreased awareness of need for safety - Insights: decreased awareness of deficits - Sequencing: requires cues for some Family/Caregiver Present: none Objective Ambulation Ambulation 1 Assistive device(s) used: none Assist level: Contact Guard, Min Assist Distance (ft): 85' x1 Quality of gait: Pt required CGA/Darell for balance. Pt observed reaching for environmental supports during ambulation. Pt demos decreased stride length and slow liang. Ambulation 2 Assistive device(s) used: front wheeled walker Assist level: Contact Guard Distance (ft): 125' x1 Quality of gait: Improved stability noted with use of FWW compared to no device. Pt required cues for safe use and appropriate proximity to FWW. No LOB however CGA required d/t decreased safety awareness. Transfers/Mobility Sit to stand: Contact Guard Stand to sit: Contact Guard From EOB and from recliner with and without use of FWW. Pt demos slight instability upon standing but no acute LOB. Pt completed x10 total reps to improve recall of proper technique and independence with functional transfers. Device(s) used: none and front wheeled walker Stairs Stairs 1 Assistive device(s) used: none Assist level: Contact Guard # of steps: 11 Rails: bilateral Pt initially demonstrates reciprocal pattern with unsafe technique (Increased speed with only ball of foot on step.) Pt required frequent cues for step-to pattern and to slow down to decrease risk for falls. Pt demos decreased safety awareness. CGA provided to monitor stability. Plan Continue acute PT per plan of care. Safety/Education Safety Safety Devices in place: All fall risk precautions in place, call light within reach, left in chair, gait belt, patient at risk for falls, and no alarms engaged upon entry Restraints: No Education Education Given To: patient Education Provided: PT Role, PT Goals, Gait Training, Plan of Care, Transfer Training, and Fall Prevention Education Education Method: Verbal Barriers to Learning: Cognition Education Outcome: Verbalized Understanding and Continued Education Needed Outcome Measures AM-PAC AM-PAC Inpatient Mobility Raw Score : 18 AM-PAC Inpatient Mobility Raw Score (No Stairs) : 15 Goals Patient Stated Goal: Patient states he wants to get out of bed and walk. Encounter Problems Encounter Problems (Active) Balance Patient will maintain dynamic standing balance for 5 minutes with modified independence in order todemonstrate decreased risk of falling. (Progressing) Start: 06/15/23 Expected End: 06/22/23 Exercise Patient will complete lower extremity exercises for 1-2 sets / 10 reps in order to improve strengthand activity tolerance for mobility. (Not Addressed) Start: 06/15/23 Expected End: 06/22/23 Mobility Patient will ambulate 100 feet with modified independence and least restrictive device in order to improve safety and independence with mobility. (Progressing) Start: 06/15/23 Expected End: 06/22/23 Patient will ascend and descend 12 stairs with one railing and supervision in order to safely negotiate home. (Not Addressed) Start: 06/15/23 Expected End: 06/22/23 Transfers Patient will perform bed mobility with modified independence in order to improve independence and prepare for out of bed mobility. (Progressing) Start: 06/15/23 Expected End: 06/22/23 Patient will complete functional transfers with least restrictive device with modified independencein order to prepare for ambulation. (Progressing) Start: 06/15/23 Expected End: 06/22/23 Therapy Time Individual Co-treatment Time In 1348 Time Out 1405 Minutes 17 Timed Code Treatment Minutes: 17 Minutes (x1 gait) Jamilah Elmore PTA * CARMITA Gee - 06/18/2023 11:50 AM EDT Images from the original note were not included. OCCUPATIONAL THERAPY [facility] Treatment Note Name/MRN: Homero Mei ([id number]) Date of : 1945 Age: 77 y.o. Room[facility]Bed: [facility] A Visit #: 1 out of 7 visits Discharge Recommendation: Nursing Home Facility Prior Level of Function ADL Assistance: Independent Ambulation Assistance: Independent, pt reports utilizing fww PRN Transfer Assistance: Independent Assessment Pt tolerated session fair, continues to improve with OT POC. Pt completed STS, functional mobility,and standing grooming with Min-CGA. Pt with poor FWW management, sequencing, and safety awareness. Pt unable to answer basic safety questions correctly. Pt not safe for homegoing. Pt is progressing with POC but is still below baseline and is a high fall risk. Pt would benefit from continued OT to improve activity tolerance, balance, and strength needed for improved occupational performance. Pt isrecommended for SNF at D/C Subjective Pt supine in bed, pleasant and agreeable. Pain: Pt denies any current pain. Medical Precautions: No active isolations Proper PPE donned/doffed in accordance with facility standards. Fall Risk: Gomez Fall Risk Score: 60 (High Risk) Precautions/Restrictions: N/A Family/Caregiver Present: none Objective ADLs Grooming: Contact Guard Pt completed standing oral hygiene at sink with CGA for stability. Pt able to manage caps without hands on assist Bed Mobility Supine to sit: SBA Scooting: SBA Pt completed supine to sit and scooting with SBA. Pt required no physical assist needed. Transfers/Mobility Sit to stand: Contact Guard Stand to sit: Contact Guard, Pt completed STS from EOB and recliner with FWW and CGA. Pt required max VC for BUE placement, with poor carryover. Sitting balance: Modified Independent Standing balance: Contact Guard Functional mobility: Contact Guard, Min Assist Pt completed functional mobility with FWW and Min-CGA. Pt with poor FWW management and proper BUE placement, required frequent hands on assist to place BUE on proper spot. Pt intermittently walking with one foot inside the walker and one foot on the outside. Device(s) used: front wheeled walker and hospital bed Cognition - Safety judgement: decreased awareness of need for assistance and decreased awareness of need for safety - Insights: decreased awareness of deficits - Sequencing: requires cues for some Exceptions, significant decreased safety awareness Plan Continue acute OT per plan of care. Safety/Education Safety Safety Devices in place: All fall risk precautions in place, call light within reach, left in chair, gait belt, patient at risk for falls, nurse notified, and no alarms engaged upon entry Restraints: No Education Education Given To: patient Education Provided: OT Role, Plan of Care, Precautions, ADL Adaptive Strategies, Transfer Training,Equipment, Fall Prevention Education, and Discharge Recommendations Education Method: Verbal, Demonstration, and Teach Back Barriers to Learning: Cognition Education Outcome: Verbalized Understanding, Demonstrated Understanding, and Continued Education Needed AM-PAC AM-PAC Inpatient Daily Activity Raw Score: 20 ADL Inpatient CMS G-Code Modifier: CJ Goals Patient Stated Goal: to go home. Encounter Problems Encounter Problems (Active) Balance Patient will tolerate standing for 3 minutes with LRD to allow for increased independence in ADLs. (Progressing) Start: 06/15/23 Expected End: 06/29/23 Dressings Lower Extremities Patient will complete lower body ADLs with Mod I. (Not Addressed) Start: 06/15/23 Expected End: 06/29/23 Mobility Patient will demonstrate functional ambulation with LRD with Mod I. (Progressing) Start: 06/15/23 Expected End: 06/29/23 Toileting Patient will complete toileting tasks at standard toilet with modified independence. (Not Addressed) Start: 06/15/23 Expected End: 06/29/23 Transfers Patient will complete functional transfer with rolling walker with modified independence in order to prepare for ambulation. (Progressing) Start: 06/15/23 Expected End: 06/29/23 Therapy Time Individual Co-treatment Time In 1050 Time Out 1108 Minutes 18 Timed Code Treatment Minutes: 18 Minutes (1 ADL) CARMITA Gee * Alyssa Baileyragini, CHEMICAL RESEARCH ENGINEER - POLISHING MACHINE TENDER - 06/18/2023 9:22 AM EDT [facility] Geriatric Medicine Inpatient Consult Service Admission Date: 06/12/2023 Assessment Principal Problem: Encephalopathy Plan Acute Metabolic Encephalopathy --Improving. No use of Seroquel - only on PRN - will DC. --Etiology likely acute illness, anemia, hospital environment, UTI --Encourage PO intake, time up in chair, family visits, supervised ambulation, and sleep hygiene --If agitated, assess for and consider treating for pain --QTc= 439 --[facility] PRN Seroquel for ONLY if danger to self/others/treatment --SNF MAR reviewed - had received Hydroxyzine 06/11 and was to start Seroquel 25mg BID 06/12 and per son received at 3 pm pm 06/12. --Recommend Seroquel 12.5mg BID PRN for agitation. Would avoid Haldol at this time based on previous concern for possible Lewy Body Dementia (hx of hallucinations). - Will DC Seroquel PRN - has not used since admission. --Continue PRN melatonin at HS --avoid anticholinergic/benzodiazepine medications --Monitor for constipation/urinary retention - last BM 06/16 per patient --Possible medication contributions: none identified Cognitive Impairment --follows with [facility]. Recent Neuropsychological testing. --concern for mild Dementia --Plans for driving evaluation when returns home -- TSH 2.899 and B12 237 --CT head 06/12/23 - Atrophy and chronic ischemic change. --MRI brain 07/24/22 - Moderate cortical, central, and hippocampal formation volume loss. --Lives alone, Sons assist with IADLs --Recommend another trial of Donepezil outpatient. Patient had tried for short time and stopped dueto hip pain. Son felt he responded well to Donepezil. Debility --contributing factors include recent hospitalization, likely arthritis, UTI --PT/OT - decreased safety awareness, risk for falls. Ambulating 90 feet with CGA-min assist. Recommend SNF. --Recently at SNF --Plan for SNF at discharge Chronic pain --denies pain --was taking Meloxicam in addition to Aleve at home - discussed with patient to avoid due to GI bleeding --Recommend continuing Tylenol, can consider scheduling BPH Retention of urine --started on Flomax and Sanz placed during [facility] hospitalization --Sanz has been removed, monitor PVR B12 deficiency --continue B12 daily Follow-up: prn, please page with any questions/issues Subjective Chief Complaint: need to get stronger Geriatrics consulted for h/o dementia, now with catheter and confusion HPI- The patient is known to me. 77 y.o. year-old male with PMH of anemia, hyperlipidemia, BPH, lumbar DDD, Depression, CHRISTIANO, HTN, Vit D deficiency presented to [facility] on 06/12/23 with complaints of altered mental status. Recent hospital admission 1 week ago at [facility] for bleeding gastric ulcer. Required transfusion - 3 units of blood per family. Treated for SERAFIN, urinary retention - sanz placed. He was transferred to SNF. Became increasingly confused. Family reported history of Dementia but current behaviors not normal for him. On this admission, Hgb 6.9. Received transfusion. UA positive, sanz changed. Started treatment for catheter associated UTI. Found to have MSSA in urine. GI followed for anemia. EGD canceled. No signs of active bleed. GI Signed off. Reviewed primary notes- blood cultures negative. Renal ultrasound negative. Anemia work up showing iron deficiency and chronic disease. Continued on iron supplement. Hgb stable. Reviewed case management notes Reviewed therapy notes Interval History: Remains on general medical/surgical floor . -patient reports feeling well. Reports he is sleeping ok, appetite is good. States he would benefitfrom more therapy and agrees with returning to SNF. -nursing reports no concerns, patient doing well. Review of Systems HENT: Negative for congestion and trouble swallowing. Respiratory: Negative for cough and shortness of breath. Cardiovascular: Negative for chest pain and leg swelling. Gastrointestinal: Negative for abdominal pain, constipation (yesterday), diarrhea and nausea. Genitourinary: Negative for difficulty urinating and dysuria. Musculoskeletal: Negative for arthralgias and gait problem. Neurological: Negative for dizziness, weakness and headaches. Psychiatric/Behavioral: Negative for dysphoric mood and sleep disturbance. The patient is not nervous/anxious. Objective BP 118/70 (BP Location: Right arm, Patient Position: Sitting) Pulse 77 Temp (!) 35.9 C (96.6 F)(Temporal) Resp 17 Ht 6' 1 (1.854 m) Wt 195 lb (88.5 kg) SpO2 98% BMI 25.73 kg/m No intake or output data in the 24 hours ending 06/18/23 0922 Wt Readings from Last 3 Encounters: 06/13/23 195 lb (88.5 kg) Current Facility-Administered Medications: acetaminophen (Tylenol) tablet 650 mg, 650 mg, Oral, q6h PRN OR acetaminophen (Tylenol) suppository 650 mg, 650 mg, Rectal, q6h PRN, Kobe Charles MD amLODIPine (Norvasc) tablet 2.5 mg, 2.5 mg, Oral, Daily, Kobe Charles MD, 2.5 mg at 06/18/23 0859 atorvastatin (Lipitor) tablet 20 mg, 20 mg, Oral, Nightly, Kobe Charles MD, 20 mg at 06/17/232011 ceFAZolin (Ancef) 1,000 mg in sodium chloride 0.9 % 50 mL IVPB, 1,000 mg, IntraVENous, q8h, Alphonse Aponte DO, Stopped at 06/18/23 0638 cyanocobalamin (Vitamin B-12) tablet 1,000 mcg, 1,000 mcg, Oral, Daily, Alyssa Ulrich APRN - POLISHING MACHINE TENDER, 1,000 mcg at 06/18/23 0859 ferrous sulfate tablet 325 mg, 325 mg, Oral, Daily with breakfast, Kobe Charles MD, 325 mg at 06/18/23 0859 latanoprost (Xalatan) 0.005 % ophthalmic solution 1 drop, 1 drop, Both Eyes, Nightly, Alphonse Aponte DO, 1 drop at 06/17/232011 melatonin tablet 3 mg, 3 mg, Oral, Nightly PRN, Alyssa Ulrich APRN - POLISHING MACHINE TENDER, 3 mg at 06/15/232137 ondansetron ODT (Zofran-ODT) disintegrating tablet 4 mg, 4 mg, Oral, q8h PRN OR ondansetron (Zofran) injection 4 mg, 4 mg, IntraVENous, q6h PRN, Kobe Charles MD pantoprazole (ProtoNix) EC tablet 40 mg, 40 mg, Oral, BID AC, Alphonse Aponte DO, 40 mg at 06/18/23 0608 polyethylene glycol (PEG) 3350 (Miralax) packet 17 g, 17 g, Oral, Daily PRN, Kobe Charles MD, 17 g at 06/17/23 0844 QUEtiapine (SEROquel) tablet 12.5 mg, 12.5 mg, Oral, BID PRN, Alyssa Ulrich APRN - TADEO senna-docusate sodium (Senokot-S) 8.6-50 MG tablet 2 tablet, 2 tablet, Oral, BID, Alphonse Aponte DO, 2 tablet at 06/18/23 0859 sodium chloride 0.9 % infusion, 250 mL/hr, IntraVENous, PRN, Kodak Tejeda DO tamsulosin (Flomax) 24 hr capsule 0.4 mg, 0.4 mg, Oral, Daily, Kobe Charles MD, 0.4 mg at 06/18/23 0859 Physical Exam Constitutional: General: He is not in acute distress. Appearance: Normal appearance. HENT: Mouth/Throat: Mouth: Mucous membranes are moist. Cardiovascular: Rate and Rhythm: Normal rate and regular rhythm. Pulmonary: Effort: Pulmonary effort is normal. Breath sounds: Normal breath sounds. No wheezing, rhonchi or rales. Abdominal: General: Bowel sounds are normal. There is no distension. Palpations: Abdomen is soft. Tenderness: There is no abdominal tenderness. There is no guarding or rebound. Musculoskeletal: Right lower leg: No edema. Left lower leg: No edema. Comments: Sitting on radiator. Transfers self to bed. Neurological: Mental Status: He is alert. Comments: Oriented to person, month, date. Knows he is in hospital, not [place]. States year is 2023 after first saying 1924, then 1024. He corrected himself. Psychiatric: Attention and Perception: Attention normal. Mood and Affect: Mood normal. Speech: Speech normal. Behavior: Behavior normal. Behavior is cooperative. Cognition and Memory: Memory is impaired. Labs and Imaging: Recent Results (from the past 24 hour(s)) CBC auto differential Collection Time: 06/18/23 1:50 AM Result Value Ref Range Auto WBC 7.9 3.6 - 10.7 10*3/uL RBC 2.89 (L) 4.40 - 5.90 10*6/uL Hemoglobin 8.4 (L) 13.0 - 18.0 g/dL Hematocrit 25.8 (L) 40.0 - 52.0 % MCV 89.3 77.0 - 99.0 fL MCH 29.1 26.0 - 34.0 pg MCHC 32.6 30.5 - 36.0 % RDW 13.7 11.5 - 15.0 % Platelets 304 140 - 440 10*3/uL MPV 10.9 9.0 - 12.7 fL nRBC 0.0 0.0 - 2.0 /100 WBCs Neutrophils Relative 65.4 38.0 - 82.0 % Lymphocytes Relative 23.9 15.0 - 45.0 % Monocytes Relative 6.2 5.0 - 13.0 % Eosinophils Relative 3.8 0.0 - 6.0 % Basophils Relative 0.4 0.0 - 2.0 % Immature Grans % 0.3 0.0 - 2.0 % Neutrophils Absolute 5.2 1.8 - 7.5 10*3/uL Lymphocytes Absolute 1.9 1.0 - 4.3 10*3/uL Monocytes Absolute 0.5 0.0 - 0.9 10*3/uL Eosinophils Absolute 0.3 0.0 - 0.5 10*3/uL Basophils Absolute 0.0 0.0 - 0.2 10*3/uL Immature Grans Absolute 0.0 <0.1 10*3/uL Basic metabolic panel Collection Time: 06/18/23 1:50 AM Result Value Ref Range SODIUM 139 135 - 145 mmol/L POTASSIUM 4.0 3.5 - 5.1 mmol/L CHLORIDE 109 (H) 98 - 107 mmol/L CARBON DIOXIDE 24 22 - 30 mmol/L UREA NITROGEN 13 9 - 20 mg/dL CREATININE 0.92 0.66 - 1.25 mg/dL GLUCOSE 108 (H) 70 - 100 mg/dL CALCIUM 9.0 8.4 - 10.4 mg/dL ANION GAP 6 3 - 13 mmol/L eGFR 86.7 >60.0 mL/min/1.73m*2 Lab Results Component Value Date TSH 2.899 06/13/2023 Lab Results Component Value Date [id number] 237 (L) 06/13/2023 No results found for: VITD25 Reviewed: allergies, previous encounters, imaging, active problem lists, medications, and labs * Racquel Stormy, PT - 06/17/2023 1:08 PM EDT Images from the original note were not included. PHYSICAL THERAPY [facility] Treatment Note Name/MRN: Homero Mei ([id number]) Date of : 1945 Age: 77 y.o. Room[facility]Bed: [facility] A Visit #: 1 out of 7 visits Discharge Recommendation: Nursing Home Facility Other: TBD at next level of care Prior Level of Function ADL Assistance: Independent Ambulation Assistance: Independent Device(s) used: none - FWW PRN Transfer Assistance: Independent Assessment Pt demos progress toward therapy goals. Pt is currently requiring SBA for bed mobility, CGA for functional transfers, CGA-min A for ambulation with no device, CGA for ambulation with FWW. Pt demos decreased safety awareness with FWW management and is at an increased risk for falls. Pt will continueto benefit from acute skilled PT to address current deficits. Recommendation for SNF remains appropriate as pt lives alone and is at an increased risk for falls. Subjective Pt pleasant and agreeable to therapy session Per RN okay for therapy Pain: Pt denies any current pain. Medical Precautions: No active isolations Proper PPE donned/doffed in accordance with facility standards. Fall Risk: Gomez Fall Risk Score: 60 (High Risk) Precautions/Restrictions: N/A Overall Cognitive Status: Exceptions - Memory: decreased short term memory - Safety judgement: decreased awareness of need for assistance and decreased awareness of need for safety - Problem solving: assistance required to generate solutions, assistance required to implement solutions, assistance required to identify errors made, assistance required to correct errors made, and decreased awareness of errors - Insights: decreased awareness of deficits - Initiation: requires cues for some - Sequencing: requires cues for some Overall Orientation Status: Oriented to Person Family/Caregiver Present: child(wendi) Objective Ambulation Ambulation 1 Assistive device(s) used: none Assist level: Contact Guard, Min Assist Distance (ft): ~90 feet Quality of gait: reciprocal stepping, shuffling, narrow SURINDER, postural sway, path deviations Pt demos short, reciprocal gait pattern, narrowed SURINDER with frequent path deviations and instabilityrequiring min A to CGA throughout. Ambulation 2 Assistive device(s) used: front wheeled walker Assist level: Contact Guard Distance (ft): ~90 feet Quality of gait: reciprocal stepping, slow liang Pt demos short, reciprocal gait pattern, improvement in stability with FWW compared to no device. Pt requires cues for FWW management as pt leans walker forward onto wheels only and then back onto posts and attempts to negotiate. Cues provided for upright posture, maintain SURINDER within FWW with fair carryover. Transfers/Mobility Sit to stand: Contact Guard Stand to sit: Contact Guard Pt completes sit->stand from EOB to no device requiring CGA. Pt completes stand- >sit to recliner at CGA. Pt completes additional x2 sit<->stand from EOB to FWW requiring hand over hand and verbal cues for safe hand placement for safe FWW management with limited carryover. Device(s) used: front wheeled walker Bed Mobility Supine to sit: SBA Pt completes at SBA with HOB elevated. Slightly increased time to complete. Plan Continue acute PT per plan of care. Safety/Education Safety Safety Devices in place: All fall risk precautions in place, call light within reach, left in chair, chair alarm in place, gait belt, patient at risk for falls, and nurse notified Restraints: N/A Education Education Given To: patient and son Education Provided: PT Role, PT Goals, Gait Training, Plan of Care, Transfer Training, Equipment, Discharge Recommendations, and Benefits of Increasing Activity Education Method: Verbal and Demonstration Barriers to Learning: Cognition Education Outcome: Verbalized Understanding, Demonstrated Understanding, and Continued Education Needed Outcome Measures AM-PAC AM-PAC Inpatient Mobility Raw Score (No Stairs) : 15 Goals Patient Stated Goal: Patient states he wants to get out of bed and walk. Encounter Problems Encounter Problems (Active) Balance Patient will maintain dynamic standing balance for 5 minutes with modified independence in order todemonstrate decreased risk of falling. (Progressing) Start: 06/15/23 Expected End: 06/22/23 Exercise Patient will complete lower extremity exercises for 1-2 sets / 10 reps in order to improve strengthand activity tolerance for mobility. (Not Addressed) Start: 06/15/23 Expected End: 06/22/23 Mobility Patient will ambulate 100 feet with modified independence and least restrictive device in order to improve safety and independence with mobility. (Progressing) Start: 06/15/23 Expected End: 06/22/23 Patient will ascend and descend 12 stairs with one railing and supervision in order to safely negotiate home. (Not Addressed) Start: 06/15/23 Expected End: 06/22/23 Transfers Patient will perform bed mobility with modified independence in order to improve independence and prepare for out of bed mobility. (Progressing) Start: 06/15/23 Expected End: 06/22/23 Patient will complete functional transfers with least restrictive device with modified independencein order to prepare for ambulation. (Progressing) Start: 06/15/23 Expected End: 06/22/23 Therapy Time Individual Co-treatment Time In 1142 Time Out 1153 Minutes 11 Timed Code Treatment Minutes: 9 Minutes (gait x1) Racquel Burrows PT * Alphonse Aponte, - 06/17/2023 12:49 PM EDT Images from the original note were not included. Hospitalist Progress Note 06/17/[phone]: Please page me ([phone]) for patient care issues. [phone]: Please page [facility] Hospitalist for any issues. Subjective: Admit Date: 06/12/2023 PCP: Lenin Chaudhary MD Room#: B4-425/B4-980 A Interval History: No overnight issues. Denies chest pain, sob, abdominal pain, nausea, vomiting, diarrhea, constipation, fevers, or chills. Reports feeling ok. Adult diet Regular 24HR INTAKE/OUTPUT: Intake/Output Summary (Last 24 hours) at 06/17/2023 1249 Last data filed at 06/17/2023 0830 Gross per 24 hour Intake -- Output 1900 ml Net -1900 ml Past Medical History: Past Medical History: Diagnosis Date Anemia Gastric ulcer HLD (hyperlipidemia) htn Urinary retention LABS: CBC: Recent Labs 06/15/23 0025 06/15/23 0540 06/16/23 0622 06/17/23 0418 WBC 8.4 -- 6.5 7.5 RBC 2.57* -- 2.46* 2.54* HGB 7.7* 7.8* 7.2* 7.4* HCT 22.9* 23.4* 22.0* 22.6* MCV 89.1 -- 89.4 89.0 RDW 13.8 -- 13.8 13.7 PLT 257 -- 245 270 BMP: Recent Labs 06/15/23 0025 06/16/23 0622 06/17/23 0418 NA 136 138 138 K 3.7 4.1 3.6 CL 107 109* 108* CO2 22 24 25 BUN 15 12 15 CREATININE 1.22 0.92 0.95 GLUCOSE 116* 117* 107* CALCIUM 8.4 8.3* 8.5 ANIONGAP 6 6 5 LIVER PROFILE: No results for input(s): AST, ALT, BILITOT, ALKPHOS, PROT in the last 72 hours. No lab exists for component: LABALBU PT/INR: No results for input(s): PROTIME, INR in the last 72 hours. CARDIAC ENZYMES: No results for input(s): TROPONINI in the last 72 hours. Procalcitonin: No results found for: PROCAL COVID-19 PCR: No results for input(s): COVID19 in the last 72 hours. Objective: Vitals: BP 147/82 (BP Location: Right arm, Patient Position: Sitting) Pulse 73 Temp 36.9 C (98.4 F) (Temporal) Resp 17 Ht 6' 1 (1.854 m) Wt 195 lb (88.5 kg) SpO2 97% BMI 25.73 kg/m Pulse Ox: SpO2 Av.5 % Min: 97 % Max: 98 % Supplemental O2: General appearance: No apparent distress, appears stated age and cooperative with exam, elderly male in NAD, AAOx2 Respiratory: CTA BL Cardiovascular: Regular rate and rhythm with no murmur Abdomen: Soft, non-tender, non-distended Skin: Skin color, texture, turgor normal. No rashes or lesions. Distal pulses intact in BL LE, no edema in BL LE. Neurologic: grossly non-focal. Medications: amLODIPine, 2.5 mg, Oral, Daily atorvastatin, 20 mg, Oral, Nightly ceFAZolin, 1,000 mg, IntraVENous, q8h cyanocobalamin, 1,000 mcg, Oral, Daily ferrous sulfate, 325 mg, Oral, Daily with breakfast latanoprost, 1 drop, Both Eyes, Nightly pantoprazole, 40 mg, Oral, BID AC senna-docusate sodium, 2 tablet, Oral, BID tamsulosin, 0.4 mg, Oral, Daily Assessment Acute metabolic encephalopathy Acute UTI UTI likely related to sanz Urinary retention Sanz placed UA positive, UC MSSA Broad coverage abx Will follow up with urology outpatient Flomax BL renal US negative for obstruction Anemia Hx of upper GIB and PUD S/p 1 unit PRBC on 06/13/23 IV PPI GI on consult, no indication for EGD currently. Hgb Stable following PRBC , CBC in the AM Anemia workup pending Hx of dementia seroquel PRN only HTN Amlodipine Hypovitaminosis B12 Daily PO B12 supplementation HLD Statin Medical Decision Makin06/13/23: patient with acute metabolic encephalopathy with anemia and recent admission to [facility] for bleeding gastric ulcer. Hgb of 7.7 when discharged from [facility]. Continued to have black and bloody stool. Transfused 1 unit PRBC today due to hgb in the 6 range. Worsening mentation off baseline dementia on presentation, found to have UTI, on broad coverage abx, mentation improved now AAOx2. Discussed with GI, plan for repeat EGD on 06/14/23 if hgb continues to drop. Trend h/h.BMP in the AM. 06/14/23: patient diet advanced per GI recs today. Hgb stable in the 7 range today. No further episodes of bleeding or black stool. Continue on broad coverage abx. Labs and vitals otherwise reviewed and stable. Mentation improved and stable. Awaiting for auth to return [facility]. Addendum 06/14/23 13:14: discussed with ID abx stewardship, urine cultures are positive for MSSA, BCx2 pending, abx changed to cefazolin. 06/15/23: patient found to have urine cultures positive for MSSA. BC pending. Discussed with ID abx stewardship today, obtain BL renal US to assess for outflow obstruction. BC to be negative x48 hours, patient to be transitioned to Cephalexin 1g TID, through 06/23/23. H/h stable. Patient off seroquel currently. Mentation stable. Discussed with CM, facility not willing to accept until 06/17 due to agitation and requiring seroquel at facility, wants to see how he does in the hospital while not on seroquel before willing to accept back at SNF. Cbc and BMP in the AM. 06/16/23: patient BC negative so far. Renal US negative. Hgb stable in the mid to low 7 range. Continue on current abx, await finalized BC. Monitor blood counts, transfuse as indicated. No indication for active bleeding currently. On B12 for low B12 levels. Further anemia workup pending. Continue tomonitor closely. CBC and BMP in the AM. 06/17/23: BC negative, continued abx. Has not required PRN seroquel during admission. Anemia workup showing some iron deficiency, with chronic disease as well. Already on PO iron supplementation. B12 supplemented. Hgb stable in the 7 range. Likely discharge back to SNF tomorrow. -am labs, replace lytes prn -increase activity -resume home medications as indicated -DVT prophylaxis: [] Lovenox [] Heparin [] SCDs [x] Encourage ambulation [] Already on Anticoagulation Anticipated Discharge - Date - 06/17 - Location - [facility] - Pending the following - auth Toxic drug monitoring/narrow therapeutic index drug monitoring : # Drug name : # Route administered : # Method of monitoring : Extended Emergency Contact Information Primary Emergency Contact: indy mei Mobile Relation: Son Band Singer needed? No Secondary Emergency Contact: william mei Mobile Relation: Son Band Singer needed? No Alphonse Aponte DO Division of Hospitalist Medicine Inpatient Medical Services/[facility] [place] PAGER: Epic chat * Alphonse Aponte DO - 06/16/2023 11:46 AM EDT Images from the original note were not included. Hospitalist Progress Note 06/16/[phone]: Please page me ([phone]) for patient care issues. [phone]: Please page [facility] Hospitalist for any issues. Subjective: Admit Date: 06/12/2023 PCP: Lenin Chaudhary MD Room#: W3-292/K4-401 A Interval History: No overnight issues. Denies chest pain, sob, abdominal pain, nausea, vomiting, diarrhea, constipation, fevers, or chills. Reports feeling ok. Adult diet Regular 24HR INTAKE/OUTPUT: Intake/Output Summary (Last 24 hours) at 06/16/2023 1146 Last data filed at 06/16/2023 0923 Gross per 24 hour Intake 500 ml Output 2200 ml Net -1700 ml Past Medical History: Past Medical History: Diagnosis Date Anemia Gastric ulcer HLD (hyperlipidemia) htn Urinary retention LABS: CBC: Recent Labs 06/14/23 0025 06/14/23 0545 06/15/23 0025 06/15/23 0540 06/16/23 0622 WBC 6.4 -- 8.4 -- 6.5 RBC 2.48* -- 2.57* -- 2.46* HGB 7.4* < > 7.7* 7.8* 7.2* HCT 22.2* < > 22.9* 23.4* 22.0* MCV 89.5 -- 89.1 -- 89.4 RDW 13.9 -- 13.8 -- 13.8 PLT 216 -- 257 -- 245 < > = values in this interval not displayed. BMP: Recent Labs 06/14/23 0025 06/15/23 0025 06/16/23 0622 NA 136 136 138 K 4.2 3.7 4.1 CL 108* 107 109* CO2 25 22 24 BUN 17 15 12 CREATININE 0.84 1.22 0.92 GLUCOSE 103* 116* 117* CALCIUM 8.4 8.4 8.3* ANIONGAP 4 6 6 LIVER PROFILE: No results for input(s): AST, ALT, BILITOT, ALKPHOS, PROT in the last 72 hours. No lab exists for component: LABALBU PT/INR: No results for input(s): PROTIME, INR in the last 72 hours. CARDIAC ENZYMES: No results for input(s): TROPONINI in the last 72 hours. Procalcitonin: No results found for: PROCAL COVID-19 PCR: No results for input(s): COVID19 in the last 72 hours. Objective: Vitals: BP 104/58 (BP Location: Left arm, Patient Position: Lying) Pulse 67 Temp 36.9 C (98.5 F) (Temporal) Resp 17 Ht 6' 1 (1.854 m) Wt 195 lb (88.5 kg) SpO2 97% BMI 25.73 kg/m Pulse Ox: SpO2 Av.5 % Min: 97 % Max: 100 % Supplemental O2: General appearance: No apparent distress, appears stated age and cooperative with exam, elderly male in NAD, AAOx2 Respiratory: CTA BL Cardiovascular: Regular rate and rhythm with no murmur Abdomen: Soft, non-tender, non-distended Skin: Skin color, texture, turgor normal. No rashes or lesions. Distal pulses intact in BL LE, no edema in BL LE. Neurologic: grossly non-focal. Medications: amLODIPine, 2.5 mg, Oral, Daily atorvastatin, 20 mg, Oral, Nightly ceFAZolin, 1,000 mg, IntraVENous, q8h cyanocobalamin, 1,000 mcg, Oral, Daily ferrous sulfate, 325 mg, Oral, Daily with breakfast pantoprazole, 40 mg, Oral, BID AC senna-docusate sodium, 2 tablet, Oral, BID tamsulosin, 0.4 mg, Oral, Daily Assessment Acute metabolic encephalopathy Acute UTI UTI likely related to sanz Urinary retention Sanz placed UA positive, UC MSSA Broad coverage abx Will follow up with urology outpatient Flomax BL renal US negative for obstruction Anemia Hx of upper GIB and PUD S/p 1 unit PRBC on 06/13/23 IV PPI GI on consult, no indication for EGD currently. Hgb Stable following PRBC , CBC in the AM Anemia workup pending Hx of dementia seroquel PRN only HTN Amlodipine Hypovitaminosis B12 Daily PO B12 supplementation HLD Statin Medical Decision Makin06/13/23: patient with acute metabolic encephalopathy with anemia and recent admission to [facility] for bleeding gastric ulcer. Hgb of 7.7 when discharged from [facility]. Continued to have black and bloody stool. Transfused 1 unit PRBC today due to hgb in the 6 range. Worsening mentation off baseline dementia on presentation, found to have UTI, on broad coverage abx, mentation improved now AAOx2. Discussed with GI, plan for repeat EGD on 06/14/23 if hgb continues to drop. Trend h/h.BMP in the AM. 06/14/23: patient diet advanced per GI recs today. Hgb stable in the 7 range today. No further episodes of bleeding or black stool. Continue on broad coverage abx. Labs and vitals otherwise reviewed and stable. Mentation improved and stable. Awaiting for auth to return to SNF, [facility]. Addendum 06/14/23 13:14: discussed with ID abx stewardship, urine cultures are positive for MSSA, BCx2 pending, abx changed to cefazolin. 06/15/23: patient found to have urine cultures positive for MSSA. BC pending. Discussed with ID abx stewardship today, obtain BL renal US to assess for outflow obstruction. BC to be negative x48 hours, patient to be transitioned to Cephalexin 1g TID, through 06/23/23. H/h stable. Patient off seroquel currently. Mentation stable. Discussed with CM, facility not willing to accept until 06/17 due to agitation and requiring seroquel at facility, wants to see how he does in the hospital while not on seroquel before willing to accept back at SNF. Cbc and BMP in the AM. 06/16/23: patient BC negative so far. Renal US negative. Hgb stable in the mid to low 7 range. Continue on current abx, await finalized BC. Monitor blood counts, transfuse as indicated. No indication for active bleeding currently. On B12 for low B12 levels. Further anemia workup pending. Continue tomonitor closely. CBC and BMP in the AM. -am labs, replace lytes prn -increase activity -resume home medications as indicated -DVT prophylaxis: [] Lovenox [] Heparin [] SCDs [x] Encourage ambulation [] Already on Anticoagulation Anticipated Discharge - Date - 06/17 - Location - [facility] - Pending the following - auth Toxic drug monitoring/narrow therapeutic index drug monitoring : # Drug name : # Route administered : # Method of monitoring : Extended Emergency Contact Information Primary Emergency Contact: indy mei Mobile Relation: Son Band Singer needed? No Secondary Emergency Contact: william mei Mobile Relation: Son Band Singer needed? No Alphonse Aponte DO Division of Hospitalist Medicine Inpatient Medical Services/[facility] [place] PAGER: Epic chat * Alphonse Aponte DO - 06/15/2023 11:39 AM EDT Images from the original note were not included. Hospitalist Progress Note 06/15/[id number]: Please page [place] ([phone]) for patient care issues. [phone]: Please page [facility] night Hospitalist for any issues. Subjective: Admit Date: 06/12/2023 PCP: Lenin Chaudhary MD Room#: B4-459/B4-430 A Interval History: No overnight issues. Denies chest pain, sob, abdominal pain, nausea, vomiting, diarrhea, constipation, fevers, or chills. Reports feeling ok. And getting around well. Adult diet Regular 24HR INTAKE/OUTPUT: Intake/Output Summary (Last 24 hours) at 06/15/2023 1139 Last data filed at 06/14/2023 2300 Gross per 24 hour Intake 50 ml Output 1000 ml Net -950 ml Past Medical History: Past Medical History: Diagnosis Date Anemia Gastric ulcer HLD (hyperlipidemia) htn Urinary retention LABS: CBC: Recent Labs 06/13/23 0314 06/13/23 1741 06/14/23 0025 06/14/23 0545 06/14/23 1736 06/15/23 0025 06/15/23 0540 WBC 7.8 -- 6.4 -- -- 8.4 -- RBC 2.43* -- 2.48* -- -- 2.57* -- HGB 7.2* < > 7.4* < > 8.7* 7.7* 7.8* HCT 21.7* < > 22.2* < > 26.3* 22.9* 23.4* MCV 89.3 -- 89.5 -- -- 89.1 -- RDW 13.7 -- 13.9 -- -- 13.8 -- PLT 212 -- 216 -- -- 257 -- < > = values in this interval not displayed. BMP: Recent Labs 06/13/23 0314 06/14/23 0025 06/15/23 0025 NA 137 136 136 K 3.8 4.2 3.7 CL 108* 108* 107 CO2 26 25 22 BUN 21* 17 15 CREATININE 1.07 0.84 1.22 GLUCOSE 107* 103* 116* CALCIUM 8.3* 8.4 8.4 ANIONGAP 4 4 6 LIVER PROFILE: Recent Labs 06/13/23313 AST 13* ALT 18 BILITOT 0.4 ALKPHOS 47 PROT 5.3* PT/INR: No results for input(s): PROTIME, INR in the last 72 hours. CARDIAC ENZYMES: Recent Labs 06/12/232015 TROPONINI <0.012 Procalcitonin: No results found for: PROCAL COVID-19 PCR: No results for input(s): COVID19 in the last 72 hours. Objective: Vitals: BP 126/75 (BP Location: Left arm, Patient Position: Lying) Pulse 62 Temp 36.8 C (98.2 F) (Temporal) Resp 18 Ht 6' 1 (1.854 m) Wt 195 lb (88.5 kg) SpO2 97% BMI 25.73 kg/m Pulse Ox: SpO2 Av.5 % Min: 97 % Max: 100 % Supplemental O2: General appearance: No apparent distress, appears stated age and cooperative with exam, elderly male in NAD, AAOx2 Respiratory: Normal respiratory effort. CTA BL, no wheezing Cardiovascular: Regular rate and rhythm with no murmur Abdomen: Soft, non-tender, non-distended Skin: Skin color, texture, turgor normal. No rashes or lesions. Distal pulses intact in BL LE, no edema in BL LE. Neurologic: grossly non-focal. Medications: amLODIPine, 2.5 mg, Oral, Daily atorvastatin, 20 mg, Oral, Nightly ceFAZolin, 1,000 mg, IntraVENous, q8h cyanocobalamin, 1,000 mcg, Oral, Daily docusate sodium, 100 mg, Oral, BID ferrous sulfate, 325 mg, Oral, Daily with breakfast pantoprazole, 40 mg, Oral, BID AC tamsulosin, 0.4 mg, Oral, Daily Assessment Acute metabolic encephalopathy Acute UTI UTI likely related to sanz Urinary retention Sanz placed UA positive, UC MSSA Broad coverage abx Will follow up with urology outpatient Flomax BL renal US pending Anemia Hx of upper GIB and PUD S/p 1 unit PRBC on 06/13/23 IV PPI GI on consult, EGD planned for 06/14/23 if hgb continues to drop. , CBC in the AM Hx of dementia seroquel PRN only HTN Amlodipine HLD statin Medical Decision Makin06/13/23: patient with acute metabolic encephalopathy with anemia and recent admission to [facility] for bleeding gastric ulcer. Hgb of 7.7 when discharged from [facility]. Continued to have black and bloody stool. Transfused 1 unit PRBC today due to hgb in the 6 range. Worsening mentation off baseline dementia on presentation, found to have UTI, on broad coverage abx, mentation improved now AAOx2. Discussed with GI, plan for repeat EGD on 06/14/23 if hgb continues to drop. Trend h/h.BMP in the AM. 06/14/23: patient diet advanced per GI recs today. Hgb stable in the 7 range today. No further episodes of bleeding or black stool. Continue on broad coverage abx. Labs and vitals otherwise reviewed and stable. Mentation improved and stable. Awaiting for auth to return to SNF, [facility]. Addendum 06/14/23 13:14: discussed with ID abx stewardship, urine cultures are positive for MSSA, BCx2 pending, abx changed to cefazolin. 06/15/23: patient found to have urine cultures positive for MSSA. BC pending. Discussed with ID abx stewardship today, obtain BL renal US to assess for outflow obstruction. BC to be negative x48 hours, patient to be transitioned to Cephalexin 1g TID, through 06/23/23. H/h stable. Patient off seroquel currently. Mentation stable. Discussed with CM, facility not willing to accept until 06/17 due to agitation and requiring seroquel at facility, wants to see how he does in the hospital while not on seroquel before willing to accept back at SNF. Cbc and BMP in the AM. -am labs, replace lytes prn -increase activity -resume home medications as indicated -DVT prophylaxis: [] Lovenox [] Heparin [] SCDs [x] Encourage ambulation [] Already on Anticoagulation Anticipated Discharge - Date - 06/17 - Location - SNF - Pending the following - auth Toxic drug monitoring/narrow therapeutic index drug monitoring : # Drug name : # Route administered : # Method of monitoring : Extended Emergency Contact Information Primary Emergency Contact: indy mei Mobile Relation: Son Band Singer needed? No Secondary Emergency Contact: hamidawilliam irby Mobile Relation: Son Band Singer needed? No Alphonse Aponte DO [facility] [place] PAGER: Epic chat * Reyna Lin, PT - 06/15/2023 10:23 AM EDT Images from the original note were not included. PHYSICAL THERAPY [facility] Initial Evaluation Name/MRN: Homero Mei ([id number]) Evaluation Date: 06/15/2023 Date of : 1945 Admission Date: 06/12/2023 7:48 PM Age: 77 y.o. Room[facility]Bed: [facility] A Discharge Recommendation: Nursing Home Facility Other: TBD at next level of care Assessment IMPRESSION: Pt presents with decreased functional mobility, decreased strength, decreased safety awareness, decreased endurance and impaired balance. Pt has decreased standing balance, poor activity tolerance, decreased safety awareness and weakness requiring physical assist of 1 person in order tosafely complete OOB mobility placing him at a high risk of falling. Pt could benefit from skilled PT in order to address his decreased functional mobility, strength, balance and safety. Pt has medical history as listed below that that contributes to his clinical presentation. At baseline patient isfunctionally independent with no device. Currently patient is unsafe to return home secondary to his increased need for assist and fall risks with mobility. Diagnosis: Pt admitted for altered mental status found to have UTI and encephalopathy with Hx of dementia, recent hospitalization for bleeding ulcer, and anemia. Pt was discharged to SNF for rehabilitation 1 week ago. Prognosis: good Performance Deficits /Impairments: Decreased Functional Mobility, Decreased Strength, Decreased Safety Awareness, Decreased Cognition, Decreased Endurance, and Decreased Balance Decision Making: Medium Complexity Subjective Patient pleasant and agreeable to therapy session this date. Per RN patient okay for therapy. Co-eval with OT. Observation: PIV and sanz intact Pain: Pt denies any current pain. Past Medical History: Past Medical History: Diagnosis Date Anemia Gastric ulcer HLD (hyperlipidemia) htn Urinary retention Past Surgical History: History reviewed. No pertinent surgical history. Admission Diagnosis: Patient Active Problem List Diagnosis Date Noted Encephalopathy 06/12/2023 Medical Precautions: No active isolations Proper PPE donned/doffed in accordance with facility standards. Fall Risk: Gomez Fall Risk Score: 35 (Medium Risk) Precautions/Restrictions: N/A Family/Caregiver Present: none Overall Cognitive Status: Exceptions - Attention span: attends with cues to redirect - Safety judgement: decreased awareness of need for assistance and decreased awareness of need for safety - Problem solving: assistance required to generate solutions, assistance required to implement solutions, and decreased awareness of errors - Insights: decreased awareness of deficits - Sequencing: requires cues for some - h/o dementia Overall Orientation Status: Oriented to Time, Oriented to Situation, and Oriented to Person Vision: wears glasses at all times and and are being used during the eval Hearing: normal Social/Functional History Patient admitted from home. 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 Transfers Sit to stand: Contact Guard, to no device from EOB Stand to sit: Contact Guard Denies dizziness on initial stance. Pt reaching for environmental supports on initial stance. Ambulation Ambulation 1 Assistive device(s) used: none Assist level: Contact Guard, Min Assist Distance (ft): 50 ft x 1, 25 ft x 1 Quality of gait: antalgic, reciprocal stepping, B foot clearance, uneven step length, slow liang,postural sway, path deviations Pt reaching out for environmental supports initially with ambulation requiring Darell, progressing toCGA for part of distance. Antalgic stepping on L LE noted, occasional narrow SURINDER with near scissoring leading to increased instability. Pt with decreased insight into limitations at this time. Outcome Measures AM-PAC How much HELP from another person do you currently need Turning from your back to your side while in a flat bed without using bedrails?: A Little Moving from lying on your back to sitting on the side of a flat bed without using bedrails?: A Little Moving to and from a bed to a chair (including a wheelchair)?: A Little Standing up from a chair using your arms (wheelchair or bedside chair)?: A Little Walking in a hospital room?: A Little Stair climbing assessed?: No AM-PAC Inpatient Mobility Raw Score (No Stairs) : 15 Plan Pt would benefit from skilled acute PT services to address Strengthening, Balance Training, Functional Mobility Training, Endurance Training, Gait Training, Stair Training, Neuromuscular Re-EducationTraining, Cognitive Reorientation, Pain Management, Safety Education and Training, Patient/Caregiver Training, Equipment Evaluation/Education, Positioning, and Cognitive/Perceptual Training. Frequency: 7 visits Barriers: Cognitive deficit and Decreased endurance Safety/Education Safety Safety Devices in place: All fall risk precautions in place, call light within reach, left in chair, chair alarm in place, gait belt, patient at risk for falls, and nurse notified Restraints: N/A Education Education Given To: patient Education Provided: PT Role, PT Goals, Gait Training, Plan of Care, Transfer Training, Fall Prevention Education, Discharge Recommendations, and Benefits of Increasing Activity Education Method: Verbal and Demonstration Barriers to Learning: Cognition Education Outcome: Verbalized Understanding, Demonstrated Understanding, and Continued Education Needed Goals Patient Stated Goal: Patient states he wants to get out of bed and walk. Encounter Problems Encounter Problems (Active) Balance Patient will maintain dynamic standing balance for 5 minutes with modified independence in order todemonstrate decreased risk of falling. Start: 06/15/23 Expected End: 06/22/23 Exercise Patient will complete lower extremity exercises for 1-2 sets / 10 reps in order to improve strengthand activity tolerance for mobility. Start: 06/15/23 Expected End: 06/22/23 Mobility Patient will ambulate 100 feet with modified independence and least restrictive device in order to improve safety and independence with mobility. Start: 06/15/23 Expected End: 06/22/23 Patient will ascend and descend 12 stairs with one railing and supervision in order to safely negotiate home. Start: 06/15/23 Expected End: 06/22/23 Transfers Patient will perform bed mobility with modified independence in order to improve independence and prepare for out of bed mobility. Start: 06/15/23 Expected End: 06/22/23 Patient will complete functional transfers with least restrictive device with modified independencein order to prepare for ambulation. Start: 06/15/23 Expected End: 06/22/23 Therapy Time Individual Co-treatment Time In 0913 Time Out 0932 Minutes 19 Reyna Lin PT Patient's Physical Therapy Plan of Care supervision is transferred to a [facility] Therapy Services Physical Therapist. Goals and/or treatment plan was established in collaboration with patient/family/other representatives. * Cata Aguiar - 06/15/2023 9:47 AM EDT Images from the original note were not included. OCCUPATIONAL THERAPY [facility] Initial Evaluation Name/MRN: Homero Mei ([id number]) Evaluation Date: 06/15/2023 Date of : 1945 Admission Date: 06/12/2023 7:48 PM Age: 77 y.o. Room[facility]Bed: [facility] A Discharge Recommendation: Nursing Home Facility Assessment IMPRESSION: Pt admitted for altered mental status found to have UTI and encephalopathy with Hx of dementia, recent hospitalization for bleeding ulcer, and anemia. Pt was discharged to SNF for rehabilitation 1 week ago. Prior to recent admission, pt was independent in transfers and mobility with no device, and ADLs. Pt currently requires SBA for bed mobility, CGA for transfers with no device, CGA-Darell for mobility with no device, and Mod I-Min A for ADLs. Pt is limited by decreased endurance, mobility, transfers, and increased confusion. Pt should benefit from skilled OT services to increase independence and safety in ADLs. Performance Deficits /Impairments: Decreased Functional Mobility, Decreased ADL status, Decreased Safety Awareness, Decreased Endurance, Decreased Balance, and Decreased High Level IADLs Prognosis: Good Decision Making: Medium Complexity Subjective Pt is pleasant and cooperative. Per RN, marija for pt to participate in OT eval. Co-eval with PT for safety. Catheter and IV intact. Pain: Pt denies any current pain. Past Medical History: Past Medical History: Diagnosis Date Anemia Gastric ulcer HLD (hyperlipidemia) htn Urinary retention Past Surgical History: History reviewed. No pertinent surgical history. Admission Diagnosis: Patient Active Problem List Diagnosis Date Noted Encephalopathy 06/12/2023 Medical Precautions: No active isolations Proper PPE donned/doffed in accordance with facility standards. Fall Risk: Gomez Fall Risk Score: 35 (Medium Risk) Precautions/Restrictions: Fall precautions Family/Caregiver Present: none Overall Cognitive Status: Exceptions - Attention span: attends with cues to redirect - Safety judgement: decreased awareness of need for assistance and decreased awareness of need for safety - Problem solving: assistance required to generate solutions, assistance required to implement solutions, and decreased awareness of errors - Insights: decreased awareness of deficits - Sequencing: requires cues for some Overall Orientation Status: Oriented to Time, Oriented to Situation, and Oriented to Person Social/Functional History Patient admitted from home. 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 Pt reports dressing himself this morning with no assistance from nursing staff. Pt deferred completing ADLs during this session. Upper Extremity Assessment AROM: WFL PROM: WFL Strength: WFL Vision: wears glasses at all times and and are being used during the eval Hearing: normal Bed Mobility Supine to sit: SBA Scooting: SBA HOB elevated with use of bed features and increased time. Pt completed supine to EOB and scooting to EOB with SBA and verbal cues for attention to task and sequencing of task. Pt left in recliner at the end of session with chair alarm in place. Pt denies dizziness with changes in positions. Transfers/Functional Mobility Sit to stand: Contact Guard Stand to sit: Contact Guard Standing balance: Contact Guard Functional mobility: Contact Guard, Min Assist Pt completed STS transfer from EOB with no device with CGA, and to recliner with no device with CGAand verbal cues for safe hand placement. Pt completed standing balance ~ 1 minute at no device withCGA and verbal cues for maintaining balance and safety techniques. Pt completed functional mobilitywith no device with Darell during obstacle negotiation, however progressing to CGA with no device with no obstacles. Pt balance improved during mobility task when pt not utilizing furniture to ambulate. Device(s) used: front wheeled walker AM-PAC AM-PAC Inpatient Daily Activity Raw Score: 20 ADL Inpatient CMS G-Code Modifier: CJ Plan Pt would benefit from skilled acute OT services to address Balance Training, Functional Mobility Training, Endurance Training, Safety Education and Training, Patient/Caregiver Training, Equipment Evaluation/Education, Self-Care/ADL Training, and Home Management Training. Frequency: 7 visits during current hospital admission or until additional recommendations are made Barriers: Confusion, Cognitive deficit, Limited safety awareness, and Decreased endurance Prognosis: good Safety/Education Safety Safety Devices in place: All fall risk precautions in place, call light within reach, bed alarm in place, left in chair, chair alarm in place, gait belt, patient at risk for falls, and nurse notified Restraints: No Education Education Given To: patient Education Provided: OT Role, Plan of Care, ADL Adaptive Strategies, Transfer Training, IADL Safety,Family Education, Equipment, Fall Prevention Education, Discharge Recommendations, and Benefits of Increasing Activity Education Method: Verbal Barriers to Learning: Cognition Education Outcome: Verbalized Understanding, Demonstrated Understanding, and Continued Education Needed Goals Patient Stated Goal: to go home. Encounter Problems Encounter Problems (Active) Balance Patient will tolerate standing for 3 minutes with LRD to allow for increased independence in ADLs. Start: 06/15/23 Expected End: 06/29/23 Dressings Lower Extremities Patient will complete lower body ADLs with Mod I. Start: 06/15/23 Expected End: 06/29/23 Mobility Patient will demonstrate functional ambulation with LRD with Mod I. Start: 06/15/23 Expected End: 06/29/23 Toileting Patient will complete toileting tasks at standard toilet with modified independence. Start: 06/15/23 Expected End: 06/29/23 Transfers Patient will complete functional transfer with rolling walker with modified independence in order to prepare for ambulation. Start: 06/15/23 Expected End: 06/29/23 Therapy Time Individual Co-treatment Time In 0913 Time Out 0932 Minutes 19 Cata Aguiar Patient's Occupational Therapy Plan of Care supervision is transferred to a [facility] Therapy Services Occupational Therapist. Goals and/or treatment plan was established in collaboration with patient/family/other representatives. * Alyssa Ulrich APRN - TADEO - 06/14/2023 2:50 PM EDT [facility] Geriatric Medicine Inpatient Consult Service Admission Date: 06/12/2023 Assessment Principal Problem: Encephalopathy Plan Acute Metabolic Encephalopathy --Improving. No use of Seroquel. --Etiology likely acute illness, anemia, hospital environment, UTI --Encourage PO intake, time up in chair, family visits, supervised ambulation, and sleep hygiene --If agitated, assess for and consider treating for pain --QTc= 439 --Grant PRN Seroquel for ONLY if danger to self/others/treatment --SNF MAR reviewed - had received Hydroxyzine 06/11 and was to start Seroquel 25mg BID 06/12 and per son received at 3 pm pm 06/12. --Continue Seroquel 12.5mg BID PRN for agitation. Would avoid Haldol at this time based on previousconcern for possible Lewy Body Dementia (hx of hallucinations). --Continue PRN melatonin at HS --avoid anticholinergic/benzodiazepine medications --Monitor for constipation/urinary retention - last BM 06/10 per patient --Possible medication contributions: none identified Cognitive Impairment --follows with [facility]rology. Recent Neuropsychological testing. --concern for mild Dementia --Plans for driving evaluation when returns home -- TSH 2.899 and B12 237 --CT head 06/12/23 - Atrophy and chronic ischemic change. --MRI brain 07/24/22 - Moderate cortical, central, and hippocampal formation volume loss. --Lives alone, Sons assist with IADLs --Recommend another trial of Donepezil outpatient. Patient had tried for short time and stopped duehip pain. Son felt he responded well to Donepezil. Debility --contributing factors include recent hospitalization, likely arthritis, UTI --Recommend consult PT and OT --Recently at [facility] Chronic pain --denies pain although not currently active --was taking Meloxicam in addition to Aleve at home - discussed with patient to avoid due to GI bleeding --Recommend continuing Tylenol, can consider scheduling BPH Retention of urine --started on Flomax and Sanz placed during [facility] hospitalization --Recommend consult to Urology for possible voiding trial B12 deficiency --continue B12 daily Follow-up: will follow with you Subjective Chief Complaint: confusion Geriatrics consulted for h/o dementia, now with catheter and confusion HPI- The patient is known to me. 77 y.o. year-old male with PMH of anemia, hyperlipidemia, BPH, lumbar DDD, Depression, CHRISTIANO, HTN, Vit D deficiency presented to [facility] on 06/12/23 with complaints of altered mental status. Recent hospital admission 1 week ago at [facility] for bleeding gastric ulcer. Required transfusion - 3 units of blood per family. Treated for SERAFIN, urinary retention - sanz placed. He was transferred to SNF. Became increasingly confused. Family reported history of Dementia but current behaviors not normal for him. On this admission, Hgb 6.9. Received transfusion. UA positive, sanz changed. Started treatment for catheter associated UTI. Reviewed GI - no signs of active bleed. EGD canceled today. Signed off. Reviewed Primary notes - urine culture positive for MSSA, antibiotics changed. Blood cultures pending. Reviewed social service note - plan for discharge back to SNF when ready Interval History: Remains on general medical/surgical floor . -patient reports doing well, slept well last night. Eating well. -nursing reports no concerns, patient has been pleasant. No agitation reported. He is forgetful at times. EGD canceled and he asked a few times if he was having it. Review of Systems HENT: Negative for congestion and trouble swallowing. Respiratory: Negative for cough and shortness of breath. Cardiovascular: Negative for chest pain and leg swelling. Gastrointestinal: Negative for abdominal pain, constipation (last BM 2 days ago), diarrhea and nausea. Genitourinary: Sanz Musculoskeletal: Negative for arthralgias and gait problem. Neurological: Negative for dizziness, weakness and headaches. Psychiatric/Behavioral: Negative for dysphoric mood and sleep disturbance. The patient is not nervous/anxious. Objective BP 111/64 (BP Location: Left arm, Patient Position: Lying) Pulse 61 Temp 36.6 C (97.9 F) (Temporal) Resp 18 Ht 6' 1 (1.854 m) Wt 195 lb (88.5 kg) SpO2 96% BMI 25.73 kg/m Intake/Output Summary (Last 24 hours) at 06/14/2023 1451 Last data filed at 06/14/2023 1032 Gross per 24 hour Intake 100 ml Output 1700 ml Net -1600 ml Wt Readings from Last 3 Encounters: 06/13/23 195 lb (88.5 kg) Current Facility-Administered Medications: acetaminophen (Tylenol) tablet 650 mg, 650 mg, Oral, q6h PRN OR acetaminophen (Tylenol) suppository 650 mg, 650 mg, Rectal, q6h PRN, Kobe Charles MD amLODIPine (Norvasc) tablet 2.5 mg, 2.5 mg, Oral, Daily, Kobe Charles MD, 2.5 mg at 06/14/23 1032 atorvastatin (Lipitor) tablet 20 mg, 20 mg, Oral, Nightly, Kobe Charles MD, 20 mg at 06/13/23 2131 ceFAZolin (Ancef) 1,000 mg in sodium chloride 0.9 % 50 mL IVPB, 1,000 mg, IntraVENous, q8h, Alphonse Aponte DO cyanocobalamin (Vitamin B-12) tablet 1,000 mcg, 1,000 mcg, Oral, Daily, Alyssa Ulrich APRN - POLISHING MACHINE TENDER, 1,000 mcg at 06/14/23 1033 docusate sodium (Colace) capsule 100 mg, 100 mg, Oral, BID, Kobe Charles MD, 100 mg at 06/14/23 1032 ferrous sulfate tablet 325 mg, 325 mg, Oral, Daily with breakfast, Kobe Charles MD, 325 mg at 06/14/23 1033 melatonin tablet 3 mg, 3 mg, Oral, Nightly PRN, Alyssa Coronadoe, CHEMICAL RESEARCH ENGINEER - POLISHING MACHINE TENDER ondansetron ODT (Zofran-ODT) disintegrating tablet 4 mg, 4 mg, Oral, q8h PRN OR ondansetron (Zofran) injection 4 mg, 4 mg, IntraVENous, q6h PRN, Kobe Charles MD pantoprazole in NS (Protonix) 80 mg in 100 mL (0.8 mg/mL) infusion, 8 mg/hr, IntraVENous, Continuous, Kobe Charles MD, Last Rate: 10 mL/hr at 06/14/23 1032, 8 mg/hr at 06/14/23 1032 polyethylene glycol (PEG) 3350 (Miralax) packet 17 g, 17 g, Oral, Daily PRN, Kobe Charles MD QUEtiapine (SEROquel) tablet 12.5 mg, 12.5 mg, Oral, BID PRN, Alyssa Ulrich CHEMICAL RESEARCH ENGINEER - POLISHING MACHINE TENDER sodium chloride 0.9 % infusion, 250 mL/hr, IntraVENous, PRN, Kodak Tejeda DO tamsulosin (Flomax) 24 hr capsule 0.4 mg, 0.4 mg, Oral, Daily, Kobe Charles MD, 0.4 mg at 06/14/23 1032 Physical Exam Constitutional: General: He is not in acute distress. Appearance: Normal appearance. HENT: Mouth/Throat: Mouth: Mucous membranes are moist. Cardiovascular: Rate and Rhythm: Normal rate and regular rhythm. Pulmonary: Effort: Pulmonary effort is normal. Breath sounds: Normal breath sounds. No wheezing, rhonchi or rales. Abdominal: General: Bowel sounds are normal. There is no distension. Palpations: Abdomen is soft. Tenderness: There is no abdominal tenderness. There is no guarding or rebound. Musculoskeletal: Right lower leg: No edema. Left lower leg: No edema. Neurological: Mental Status: He is alert. Motor: No weakness. Comments: Oriented to person, place, month, year, date (off one day) Psychiatric: Attention and Perception: Attention normal. Mood and Affect: Mood normal. Speech: Speech normal. Behavior: Behavior normal. Behavior is cooperative. Cognition and Memory: Memory is impaired. Labs and Imaging: Recent Results (from the past 24 hour(s)) Hemoglobin and hematocrit, blood Collection Time: 06/13/23 5:41 PM Result Value Ref Range Hemoglobin 9.0 (L) 13.0 - 18.0 g/dL Hematocrit 27.3 (L) 40.0 - 52.0 % CBC auto differential Collection Time: 06/14/23 12:25 AM Result Value Ref Range Auto WBC 6.4 3.6 - 10.7 10*3/uL RBC 2.48 (L) 4.40 - 5.90 10*6/uL Hemoglobin 7.4 (L) 13.0 - 18.0 g/dL Hematocrit 22.2 (L) 40.0 - 52.0 % MCV 89.5 77.0 - 99.0 fL MCH 29.8 26.0 - 34.0 pg MCHC 33.3 30.5 - 36.0 % RDW 13.9 11.5 - 15.0 % Platelets 216 140 - 440 10*3/uL MPV 11.2 9.0 - 12.7 fL nRBC 0.0 0.0 - 2.0 /100 WBCs Neutrophils Relative 66.5 38.0 - 82.0 % Lymphocytes Relative 21.1 15.0 - 45.0 % Monocytes Relative 7.3 5.0 - 13.0 % Eosinophils Relative 4.5 0.0 - 6.0 % Basophils Relative 0.3 0.0 - 2.0 % Immature Grans % 0.3 0.0 - 2.0 % Neutrophils Absolute 4.3 1.8 - 7.5 10*3/uL Lymphocytes Absolute 1.4 1.0 - 4.3 10*3/uL Monocytes Absolute 0.5 0.0 - 0.9 10*3/uL Eosinophils Absolute 0.3 0.0 - 0.5 10*3/uL Basophils Absolute 0.0 0.0 - 0.2 10*3/uL Immature Grans Absolute 0.0 <0.1 10*3/uL Basic metabolic panel Collection Time: 06/14/23 12:25 AM Result Value Ref Range SODIUM 136 135 - 145 mmol/L POTASSIUM 4.2 3.5 - 5.1 mmol/L CHLORIDE 108 (H) 98 - 107 mmol/L CARBON DIOXIDE 25 22 - 30 mmol/L UREA NITROGEN 17 9 - 20 mg/dL CREATININE 0.84 0.66 - 1.25 mg/dL GLUCOSE 103 (H) 70 - 100 mg/dL CALCIUM 8.4 8.4 - 10.4 mg/dL ANION GAP 4 3 - 13 mmol/L eGFR >90.0 >60.0 mL/min/1.73m*2 Hemoglobin and hematocrit, blood Collection Time: 06/14/23 5:45 AM Result Value Ref Range Hemoglobin 7.5 (L) 13.0 - 18.0 g/dL Hematocrit 23.0 (L) 40.0 - 52.0 % Hemoglobin and hematocrit, blood Collection Time: 06/14/23 12:20 PM Result Value Ref Range Hemoglobin 7.8 (L) 13.0 - 18.0 g/dL Hematocrit 23.5 (L) 40.0 - 52.0 % Lab Results Component Value Date TSH 2.899 06/13/2023 Lab Results Component Value Date [id number] 237 (L) 06/13/2023 No results found for: VITD25 Reviewed: allergies, previous encounters, imaging, active problem lists, medications, and labs * Danilo Cody, DO - 06/14/2023 2:14 PM EDT Images from the original note were not included. GASTROENTEROLOGY PROGRESS NOTE Patient: Homero Mei : 1945 Primary Care Physician: Lenin Chaudhary MD History: Stable, no complaints. Hemoglobin remained stable overnight. No evidence of GI bleeding. Has not had a BM. Denies abdominal pain, F/C/S Physical Exam: Gen: AAOx3 in NAD BP 111/64 (BP Location: Left arm, Patient Position: Lying) Pulse 61 Temp 36.6 C (97.9 F) (Temporal) Resp 18 Ht 6' 1 (1.854 m) Wt 195 lb (88.5 kg) SpO2 96% BMI 25.73 kg/m HEENT: MMM, sclera anicteric CVS: RRR, s1, s2, no mrg Lungs: CTA B/L, no RRW Abd: Soft, NT/ND, +BS, No guarding/rebound, Laboratory Data: CBC: Results from last 7 days Lab Units 06/14/23 1220 06/14/23 0545 06/14/23 0025 06/13/23 1741 06/13/23 0314 06/12/232015 WBC AUTO 10*3/uL -- -- 6.4 -- 7.8 7.7 HEMOGLOBIN g/dL 7.8* 7.5* 7.4* < > 7.2* 6.9* HEMATOCRIT % 23.5* 23.0* 22.2* < > 21.7* 20.8* PLATELETS AUTO 10*3/uL -- -- 216 -- 212 228 < > = values in this interval not displayed. CMP: Recent Labs 06/13/234 06/14/23 0025 NA 137 136 K 3.8 4.2 CL 108* 108* CO2 26 25 BUN 21* 17 CREATININE 1.07 0.84 GLUCOSE 107* 103* CALCIUM 8.3* 8.4 HEPATIC: Results from last 7 days Lab Units 06/13/23313 ALK PHOS U/L 47 BILIRUBIN TOTAL mg/dL 0.4 PROTEIN TOTAL g/dL 5.3* ALT U/L 18 AST U/L 13* Assessment: History of bleeding gastric ulcer with visible vessel: S/p endoscopic hemostasis at [facility]. Remains anemic, but no signs of active GI bleeding. Rule out slow bleed vs. equilibration of hemoglobin. Acute versus subacute blood loss anemia: Hemoglobin stable s/p 1 unit PRBC Plan: Hold off on EGD today. Continue PPI twice daily and recommend repeat EGD in 8 weeks Continue iron therapy Diet as tolerated Will sign off for now. Please call if can be of further assistance. (Comment: Please note this report has been produced using speech recognition software and may contain errors related to that system including errors in grammar, punctuation, and spelling, as well as words and phrases that may be inappropriate. If there are any questions or concerns please feel freeto contact the dictating provider for clarification.) Electronically signed by Danilo Cody DO 06/14/2023 2:15 PM * Alphonse Aponte DO - 06/14/2023 11:40 AM EDT Images from the original note were not included. Hospitalist Progress Note 06/14/2023 [phone]: Please page ny ([phone]) for patient care issues. [phone]: Please page [facility] Hospitalist for any issues. Subjective: Admit Date: 06/12/2023 PCP: Lenin Chaudhary MD Room#: -[phone] A Interval History: No overnight issues. Denies chest pain, sob, abdominal pain, nausea, vomiting, diarrhea, constipation, fevers, or chills. Reports feeling ok. Adult diet Regular 24HR INTAKE/OUTPUT: Intake/Output Summary (Last 24 hours) at 06/14/2023 1140 Last data filed at 06/14/2023 1032 Gross per 24 hour Intake 100 ml Output 2900 ml Net -2800 ml Past Medical History: Past Medical History: Diagnosis Date Anemia Gastric ulcer HLD (hyperlipidemia) htn Urinary retention LABS: CBC: Recent Labs 06/12/23201506/13/23 0314 06/13/23 1741 06/14/23 0025 06/14/23 0545 WBC 7.7 7.8 -- 6.4 -- RBC 2.30* 2.43* -- 2.48* -- HGB 6.9* 7.2* 9.0* 7.4* 7.5* HCT 20.8* 21.7* 27.3* 22.2* 23.0* MCV 90.4 89.3 -- 89.5 -- RDW 13.8 13.7 -- 13.9 -- PLT 228 212 -- 216 -- BMP: Recent Labs 06/12/23201506/13/23 0314 06/14/23 0025 NA 136 137 136 K 3.9 3.8 4.2 CL 105 108* 108* CO2 24 26 25 BUN 20 21* 17 CREATININE 1.21 1.07 0.84 GLUCOSE 117* 107* 103* CALCIUM 8.5 8.3* 8.4 ANIONGAP 7 4 4 LIVER PROFILE: Recent Labs 06/13/23 0314 AST 13* ALT 18 BILITOT 0.4 ALKPHOS 47 PROT 5.3* PT/INR: No results for input(s): PROTIME, INR in the last 72 hours. CARDIAC ENZYMES: Recent Labs 06/12/232015 TROPONINI <0.012 Procalcitonin: No results found for: PROCAL COVID-19 PCR: No results for input(s): COVID19 in the last 72 hours. Objective: Vitals: BP 111/64 (BP Location: Left arm, Patient Position: Lying) Pulse 61 Temp 36.6 C (97.9 F) (Temporal) Resp 18 Ht 6' 1 (1.854 m) Wt 195 lb (88.5 kg) SpO2 96% BMI 25.73 kg/m Pulse Ox: SpO2 Av.5 % Min: 96 % Max: 97 % Supplemental O2: General appearance: No apparent distress, appears stated age and cooperative with exam, elderly male in NAD, AAOx2 Respiratory: Normal respiratory effort. CTA BL, no wheezing Cardiovascular: Regular rate and rhythm with no murmur Abdomen: Soft, non-tender, non-distended Skin: Skin color, texture, turgor normal. No rashes or lesions. Distal pulses intact in BL LE, no edema in BL LE. Neurologic: grossly non-focal. Medications: pantoprazole in NS (Protonix) 80 mg in 100 mL (0.8 mg/mL) infusion, 8 mg/hr, Last Rate: 8 mg/hr (06/14/23 1032) amLODIPine, 2.5 mg, Oral, Daily atorvastatin, 20 mg, Oral, Nightly cefTRIAXone, 1,000 mg, IntraVENous, q24h cyanocobalamin, 1,000 mcg, Oral, Daily docusate sodium, 100 mg, Oral, BID ferrous sulfate, 325 mg, Oral, Daily with breakfast tamsulosin, 0.4 mg, Oral, Daily Assessment Acute metabolic encephalopathy Acute UTI UTI likely related to sanz Urinary retention Sanz placed UA positive, UC pending Broad coverage abx Will follow up with urology outpatient Flomax Anemia Hx of upper GIB and PUD S/p 1 unit PRBC on 06/13/23 IV PPI GI on consult, EGD planned for 06/14/23 if hgb continues to drop. Trend h/h, CBC in the AM NPO after midnight Hx of dementia Seroquel at night resumed HTN Amlodipine HLD statin Medical Decision Makin06/13/23: patient with acute metabolic encephalopathy with anemia and recent admission to [facility] for bleeding gastric ulcer. Hgb of 7.7 when discharged from [facility]. Continued to have black and bloody stool. Transfused 1 unit PRBC today due to hgb in the 6 range. Worsening mentation off baseline dementia on presentation, found to have UTI, on broad coverage abx, mentation improved now AAOx2. Discussed with GI, plan for repeat EGD on 06/14/23 if hgb continues to drop. Trend h/h.BMP in the AM. 06/14/23: patient diet advanced per GI recs today. Hgb stable in the 7 range today. No further episodes of bleeding or black stool. Continue on broad coverage abx. Labs and vitals otherwise reviewed and stable. Mentation improved and stable. Awaiting for auth to return to SNF, [facility]. Addendum 06/14/23 13:14: discussed with ID abx stewardship, urine cultures are positive for MSSA, BCx2 pending, abx changed to cefazolin. -am labs, replace lytes prn -increase activity -resume home medications as indicated -DVT prophylaxis: [] Lovenox [] Heparin [] SCDs [x] Encourage ambulation [] Already on Anticoagulation Anticipated Discharge - Date - 06/14 - Location - [facility] - Pending the following - improvement in mentation, stable h/h, clearance by GI. Toxic drug monitoring/narrow therapeutic index drug monitoring : # Drug name : # Route administered : # Method of monitoring : Extended Emergency Contact Information Primary Emergency Contact: indy mie Mobile Relation: Son Band Singer needed? No Secondary Emergency Contact: william mei Mobile Relation: Son Band Singer needed? No Alphonse Aponte DO Division of Hospitalist Medicine Inpatient Medical Services/[facility] PAGER: Epic chat * Deondre Lopez - 06/14/2023 8:27 AM EDT Nutrition rescreen complete. Pt assigned a level one for nutrition care. * Alphonse Aponte DO - 06/13/2023 11:54 AM EDT Images from the original note were not included. Hospitalist Progress Note 06/13/2023 [phone]: Please page ny ([phone]) for patient care issues. [phone]: Please page [facility] night Hospitalist for any issues. Subjective: Admit Date: 06/12/2023 PCP: Lenin Chaudhary MD Room#: [id number]/[id number] A Interval History: No overnight issues. Denies chest pain, sob, abdominal pain, nausea, vomiting, diarrhea, constipation, fevers, or chills. Reports feeling ok. Adult diet Full Liquid NPO diet 24HR INTAKE/OUTPUT: Intake/Output Summary (Last 24 hours) at 06/13/2023 1201 Last data filed at 06/13/2023 1129 Gross per 24 hour Intake 658.66 ml Output 1850 ml Net -1191.34 ml Past Medical History: Past Medical History: Diagnosis Date Anemia Gastric ulcer HLD (hyperlipidemia) htn Urinary retention LABS: CBC: Recent Labs 06/12/23201506/13/23313 WBC 7.7 7.8 RBC 2.30* 2.43* HGB 6.9* 7.2* HCT 20.8* 21.7* MCV 90.4 89.3 RDW 13.8 13.7 PLT 228 212 BMP: Recent Labs 06/12/23201506/13/23313 NA 136 137 K 3.9 3.8 CL 105 108* CO2 24 26 BUN 20 21* CREATININE 1.21 1.07 GLUCOSE 117* 107* CALCIUM 8.5 8.3* ANIONGAP 7 4 LIVER PROFILE: Recent Labs 06/13/23313 AST 13* ALT 18 BILITOT 0.4 ALKPHOS 47 PROT 5.3* PT/INR: No results for input(s): PROTIME, INR in the last 72 hours. CARDIAC ENZYMES: Recent Labs 06/12/232015 TROPONINI <0.012 Procalcitonin: No results found for: PROCAL COVID-19 PCR: No results for input(s): COVID19 in the last 72 hours. Objective: Vitals: BP 130/79 (BP Location: Left arm, Patient Position: Lying) Pulse 64 Temp 37.1 C (98.8 F) (Temporal) Resp 16 Ht 6' 1 (1.854 m) Wt 195 lb (88.5 kg) SpO2 98% BMI 25.73 kg/m Pulse Ox: SpO2 Av.8 % Min: 95 % Max: 100 % Supplemental O2: General appearance: No apparent distress, appears stated age and cooperative with exam, elderly male in NAD, AAOx2 Respiratory: Normal respiratory effort. CTA BL, no wheezing Cardiovascular: Regular rate and rhythm with no murmur Abdomen: Soft, non-tender, non-distended Skin: Skin color, texture, turgor normal. No rashes or lesions. Distal pulses intact in BL LE, no edema in BL LE. Neurologic: grossly non-focal. Medications: pantoprazole in NS (Protonix) 80 mg in 100 mL (0.8 mg/mL) infusion, 8 mg/hr, Last Rate: 8 mg/hr (06/13/23 1127) amLODIPine, 2.5 mg, Oral, Daily atorvastatin, 20 mg, Oral, Nightly cefTRIAXone, 1,000 mg, IntraVENous, q24h docusate sodium, 100 mg, Oral, BID [START ON 06/14/2023] ferrous sulfate, 325 mg, Oral, Daily with breakfast QUEtiapine, 25 mg, Oral, Nightly tamsulosin, 0.4 mg, Oral, Daily Assessment Acute metabolic encephalopathy Acute UTI Urinary retention Sanz placed UA positive, UC pending Broad coverage abx Will follow up with urology outpatient Flomax Anemia Hx of upper GIB and PUD S/p 1 unit PRBC on 06/13/23 IV PPI GI on consult, EGD planned for 06/14/23 if hgb continues to drop. Trend h/h, CBC in the AM NPO after midnight Hx of dementia Seroquel at night resumed HTN Amlodipine HLD statin Medical Decision Makin06/13/23: patient with acute metabolic encephalopathy with anemia and recent admission to [facility] for bleeding gastric ulcer. Hgb of 7.7 when discharged from [facility]. Continued to have black and bloody stool. Transfused 1 unit PRBC today due to hgb in the 6 range. Worsening mentation off baseline dementia on presentation, found to have UTI, on broad coverage abx, mentation improved now AAOx2. Discussed with GI, plan for repeat EGD on 06/14/23 if hgb continues to drop. Trend h/h.BMP in the AM. -am labs, replace lytes prn -increase activity -resume home medications as indicated -DVT prophylaxis: [] Lovenox [] Heparin [] SCDs [x] Encourage ambulation [] Already on Anticoagulation Anticipated Discharge - Date - 06/13 vs 06/14 - Location - Home - Pending the following - improvement in mentation, stable h/h, clearance by GI. Toxic drug monitoring/narrow therapeutic index drug monitoring : # Drug name : # Route administered : # Method of monitoring : Extended Emergency Contact Information Primary Emergency Contact: indy mei Mobile Relation: Son Band Singer needed? No Secondary Emergency Contact: william mei Mobile Relation: Son Band Singer needed? No Alphonse Aponte DO Division of Hospitalist Medicine Inpatient Medical Services/[facility] PAGER: Epic chat documented in this [facility]04-29-2024 Miscellaneous Notes* Care Coordination - Unknown Case Management - 06/18/2023 1:08 PM EDT Patient Choice Patient Name: HOMERO MEI Date of : 1945 All Providers Sent Referral Name: [facility] Phone: [phone] Address: [address] [place] [address] * Care Coordination - Laure Prabhakar RN - 06/18/2023 1:07 PM EDT Images from the original note were not included. Care Management Progress Note Spoke with Fanta at [facility], insurance is denying re-admit to [facility]. Patient is ambulating 90 ft with WW and SBA, does not qualify for SNF. Spoke with son Indy, he is fine with patient going homealone. PACC notified of DC, set up with [facility]. DC order written and signed by Dr. Aponte. Indy is arranging for someone to come pick him up and transport patient home. DC to home with [facility] in stable condition. Discharge Milestones and Delays Expected Date/Time: 06/18/2023 Disposition: Home or Self Care Transport status: No current request Discharge Milestones Completed Place discharge order Complete med reconciliation Case mgmt discharge readiness Clinical Stability Diagnsotic Workup Expected Discharge History Expected Date/Time Set By Reviewed At 06/18/2023 Alphonse Aponte DO 06/18/2023 11:03 AM Auth started today 06/18/2023 Laure Prabhakar RN 06/18/2023 9:04 AM 06/18/2023 Laure Prabhakar RN 06/15/2023 8:37 AM SNF Admin wants to wait until Mon See how pt does off Seroquel Will start Auth 06/15/2023 Laure Prabhakar RN 06/14/2023 8:34 AM GI and Geriatrics saw GI:Monitor [facility]: Added Melatonin 06/14/2023 BETZAIDA Ledesma 06/13/2023 10:25 AM From [facility] 06/14/2023 Kodak Tejeda DO 06/13/2023 1:16 AM 06/14/2023 Kodak Tejeda, 06/12/2023 9:43 PM Length of Stay (Days): 6 GMLOS: 4.9 * Home Care - Teresa Campa RN - 06/18/2023 12:23 PM EDT [facility] accepted referral. SonIndy, called and informed. Home care set up. * Home Care - Teresa Campa RN - 06/18/2023 11:18 AM EDT Spoke to pt's son, Indy, regarding home care services. Indy agreeable, AOC offered. !st choice is [facility], second choice is [facility]. Referrals placed in care port and this PACC will notify son with accepting agency. * Care Coordination - Laure Prabhakar RN - 06/18/2023 9:04 AM EDT Tasked SWITCHBOARD OPERATOR HELPER in [facility] to submit for [employer] return auth to [facility]. TCC will continue to follow. * Care Coordination - Laure Prabhakar RN - 06/15/2023 8:36 AM EDT Images from the original note were not included. Care Management Progress Note Patient remains on 4S for encephalopathy Clinical updates: TCC requested PT and OT Evals for return to SNF, orders placed by Dr. Aponte. Spokewith Yoselin at [facility], Admin is requesting Sunday return so we can see how he does off of the Seroquel. We really thought he was going to be a Jan[facility]-psych admission somewhere. We need to see how his behaviors are before we can take him back. Will submit auth on Sunday per [facility] request Discharge plan: Return to [facility] Discharge obstacles: Awaiting PT/OT Evals, awaiting mentation off of Seroquel per SNF request TCC will continue to follow. Discharge Milestones and Delays Expected Date/Time: 06/18/[address] discharge order Complete med reconciliation Case mgmt discharge readiness Clinical Stability Diagnsotic Workup Expected Discharge History Expected Date/Time Set By Reviewed At 06/18/2023 Laure Prabhakar RN 06/15/2023 8:37 AM SNF Admin wants to wait until Mon See how pt does off Seroquel Will start Auth 06/15/2023 Laure Prabhakar RN 06/14/2023 8:34 AM GI and Geriatrics saw GI:Monitor [facility] Geriatrics: Added Melatonin 06/14/2023 BETZAIDA Ledesma 06/13/2023 10:25 AM From [facility] 06/14/2023 Kodak Tejeda DO 06/13/2023 1:16 AM 06/14/2023 Kodak Tejeda, 06/12/2023 9:43 PM Length of Stay (Days): 3 GMLOS: 3.9 * Care Coordination - Laure Prabhakar RN - 06/14/2023 11:36 AM EDT Care Managment Initial Assessment Date: 06/14/2023 Patient Name: Homero Mei : 1945 Patient Information Source of Information: Patient Primary Substance Abuse Counselor Name/Contact Information: Son/LIN Moon via telephone Cognition/Language: Confused at baseline Permission given to speak with patient public relations representative/caregiver as indicated: Yes Confirmation of Payer with patient/family: Yes Payer Name: [facility] [place]: No Confirmation of Primary Care Physician: Confirmed PCP Name: Dr Lenin Chaudhary Seen in last 2 years?: Yes Primary Caregiver: ([facility] staff) If assistance needed, confirmed caregiver ready, willing and able to care for patient at discharge:Yes Confirmed with: Yoselin from [facility] via telephone Living Arrangements Current Residence: Number of Floors Number of Entry Steps: Bed/Bath Levels: Facility: Nursing Facility Skilled Facility Name: [facility] Plan to Return: Yes Lives with: (SNF staff and residents) Support Systems: Children, Family members, Friends/neighbors (SNF staff and residents) Activities of Daily Living Ambulation: Assistance (Uses WW) Bathing/Dressing: Assistance Elimination/Continence/Toileting: Assistance Feeding: Independent Who Assists with Activities of Daily Living: [facility] staff Instrumental Activities of Daily Living Prescription Coverage: Yes [facility] Medication Management: ([facility] nurses manage meds) Transportation/Shopping: Assistance Provider Transportation/Shopping Assistance Provider Name: William Transportation Mode: Car Needs Assistance with Transportation at Discharge: Yes ([employer] to set up return transport) Meal Preparation: Assistance Provider Meal Prep Assistance Provider Name: [facility] staff Laundry/Cleaning: Assistance Provider Laundry/Cleaning Assistance Provider Name: [facility] staff Finances/Bill Paying: Assistance Provider Finances/Bill Payer Assistance Provider Name: Indy Communication: Independent Types of Care Services/Equipment Utilized Care Services: Dialysis Type: Durable Medical Equipment: Walker, Cane, Raised Toilet Seat, Shower Seat, Other (Comment) (Grab bars) DME Provider: [facility] Patient's Goal/Discharge Plan Patient expects to be discharged to: Return to [facility] Discharge Planning Actions: Continue to follow, Nursing Home Facility referral indicated [place] of choice: [place] of choice discussed, Choice list provided Patient's Choice Rights and [employer] and Collaborative Relationships Disclosed as Indicated for Post-Acute Care: Yes Interdisciplinary Team Engagement: PT/OT Social Work Referral for: Additional Information: IA completed over the phone with son/LIN Moon. Patient is confused this admission due to UTI and Anemia. Introduced self and role. Patient is admitted to for encephalopathy. Anemic with UTI on admission, Hgb 7.5 this AM. Currently NPO in case EGD needs done. Possible IV iron transfusions. On IV Rocephin for UTI, chronic Sanz Cath in place. From [facility], plan to return per Indy. [facility] tasked to send return referral in [facility]. [employer] to set up return transport. Sees Dr Lenin Chaudhary (PCP) routinely. Has insurance and prescription coverage, [facility] Indy denies any financial difficulties. Plan to DC back to SNF when medically stable. Son/PONilda verbalizes understanding and is in agreement with POC. Laure Prabhakar RN * Care Coordination - Franck Bullock - 06/14/2023 11:28 AM EDT Referral placed to return back to [facility] via Careport per TCC request. Await review and response regarding ability to accept. TCC notified. [id number]* Care Coordination - Unknown Case Management - 06/18/2023 1:08 PM EDT Patient Choice Patient Name: HOMERO MEI Date of : 1945 All Providers Sent Referral Name: [facility] Phone: [phone] Address: [address] [place] [place] [id number] [facility] [id number] Note* Care Coordination - Unknown Case Management - 06/18/2023 1:08 PM EDT Patient Choice Patient Name: HOMERO MEI Date of : 1945 All Providers Sent Referral Name: [facility] Phone: [phone] Address: [address] [place] [id number] [facility] [id number] Note* Care Coordination - Laure Prabhakar RN - 06/18/2023 1:07 PM EDT Images from the original note were not included. Care Management Progress Note Spoke with Fanta at [facility], insurance is denying re-admit to [facility]. Patient is ambulating 90 ft with WW and SBA, does not qualify for SNF. Spoke with son Indy, he is fine with patient going homealone. PACC notified of DC, set up with [facility]. DC order written and signed by Dr. Aponte. Indy is arranging for someone to come pick him up and transport patient home. DC to home with [facility] in stable condition. Discharge Milestones and Delays Expected Date/Time: 06/18/2023 Disposition: Home or Self Care Transport status: No current request Discharge Milestones Completed Place discharge order Complete med reconciliation Case mgmt discharge readiness Clinical Stability Diagnsotic Workup Expected Discharge History Expected Date/Time Set By Reviewed At 06/18/2023 Alphonse Aponte DO 06/18/2023 11:03 AM Auth started today 06/18/2023 Laure Prabhakar RN 06/18/2023 9:04 AM 06/18/2023 Laure Prabhakar RN 06/15/2023 8:37 AM SNF Admin wants to wait until Mon See how pt does off Seroquel Will start Auth 06/15/2023 Laure Prabhakar RN 06/14/2023 8:34 AM GI and Geriatrics saw GI:Monitor [facility]: Added Melatonin 06/14/2023 BETZAIDA Ledesma 06/13/2023 10:25 AM From [facility] 06/14/2023 Kodak Tejeda, 06/13/2023 1:16 AM 06/14/2023 Kodak Tejeda, DO 06/12/2023 9:43 PM Length of Stay (Days): 6 GMLOS: 4.9 [facility] [id number] Note* Care Coordination - Laure Prabhakar RN - 06/18/2023 1:07 PM EDT Images from the original note were not included. Care Management Progress Note Spoke with Fanta at [facility], insurance is denying re-admit to [facility]. Patient is ambulating 90 ft with WW and SBA, does not qualify for SNF. Spoke with son Indy, he is fine with patient going homealone. PACC notified of DC, set up with [facility]. DC order written and signed by Dr. Aponte. Indy is arranging for someone to come pick him up and transport patient home. DC to home with [facility] in stable condition. Discharge Milestones and Delays Expected Date/Time: 06/18/2023 Disposition: Home or Self Care Transport status: No current request Discharge Milestones Completed Place discharge order Complete med reconciliation Case mgmt discharge readiness Clinical Stability Diagnsotic Workup Expected Discharge History Expected Date/Time Set By Reviewed At 06/18/2023 Alphonse Aponte DO 06/18/2023 11:03 AM Auth started today 06/18/2023 Laure Prabhakar RN 06/18/2023 9:04 AM 06/18/2023 Laure Prabhakar RN 06/15/2023 8:37 AM SNF Admin wants to wait until Mon See how pt does off Seroquel Will start Auth 06/15/2023 Laure Prabhakar RN 06/14/2023 8:34 AM GI and Geriatrics saw GI:Monitor [facility] Ger[facility]: Added Melatonin 06/14/2023 BETZAIDA Ledesma 06/13/2023 10:25 [facility] 06/14/2023 Kodak Tejeda, 06/13/2023 1:16 AM 06/14/2023 Kodak Tejeda, DO 06/12/2023 9:43 PM Length of Stay (Days): 6 GMLOS: 4.9 [facility] [id number] NoteHospitalist Discharge Summary Homero Mei : 1945 Admit date: 06/12/2023 Discharge date: 06/18/2023 Admitting Physician: Kobe Charles MD Primary Care Physician: Lenin Chaudhary MD Visit Status: admission Code Status: DNR-CCA Discharge Diagnoses: Acute UTI, MSSA UTI related to sanz Urinary retention Anemia Hx of upper GIB and PUD Hx of Dementia HTN Hypovitaminosis B12 HLD Dementia only, metabolic encephalopathy ruled out Hospital Course: patient with acute metabolic encephalopathy with anemia and recent admission to [facility] for bleeding gastric ulcer. Hgb of 7.7 when discharged from [facility]. Continued to have black and bloody stool. Transfused 1 unit PRBC on 06/13/23 due to hgb in the 6 range. Worsening mentation off baseline dementia on presentation, found to have UTI, on broad coverage abx, mentation improved. Urine cultures found to be positive for MSSA. Repeat BC negative after starting abx. Renal US BL negative for acute lesions. Discussed with ID abx stewardship committee, recommended PO Keflex through 06/23/23. Patient Hgb stable after PRBC. Found to be B12 deficient started on PO B12 supplementation. Patient was evaluated by PT/OT recommended return to SNF for further therapy. Geriatrics on consult. Patient ambulation improved, insurance denied SNF placement due to improving ambulation. Patient cleared by GI for discharge. Patient discharged to home in improved and stable condition on 06/18/23. Patient to follow up with PCP and [facility] outpatient in 1-2 weeks. Consults: IP CONSULT TO GI IP CONSULT TO GERIATRICS Discharge Instructions: Diet: Adult diet Regular Activity: as tolerated Recommended Outpatient Tests: Disposition: Patient discharged in stable condition to home with [facility] LABS: CBC: Recent Labs 06/16/23 0606/17/238 06/18/23 0150 WBC 6.5 7.5 7.9 RBC 2.46* 2.54* 2.89* HGB 7.2* 7.4* 8.4* HCT 22.0* 22.6* 25.8* MCV 89.4 89.0 89.3 RDW 13.8 13.7 13.7 PLT 245 270 304 BMP: Recent Labs 06/16/23 0622 06/17/23 0418 06/18/23 0150 NA 138 138 139 K 4.1 3.6 4.0 CL 109* 108* 109* CO2 BUN 12 15 13 CREATININE 0.92 0.95 0.92 GLUCOSE 117* 107* 108* CALCIUM 8.3* 8.5 9.0 ANIONGAP 6 5 6 LIVER PROFILE:No results for input(s): AST, ALT, BILITOT, ALKPHOS, PROT in the last 72 hours. No lab exists for component: LABALBU PT/INR: No results for input(s): PROTIME, INR in the last 72 hours. CARDIAC ENZYMES: No results for input(s): TROPONINI in the last 72 hours. Procalcitonin: No results found for: PROCAL COVID-19 PCR: No results for input(s): COVID19 in the last 72 hours. Vitals: BP 118/70 (BP Location: Right arm, Patient Position: Sitting) Pulse 77 Temp (!) 35.9 ?C (96.6 ?F) (Temporal) Resp 17 Ht 6' 1 (1.854 m) Wt 195 lb (88.5 kg) SpO2 98% BMI 25.73 kg/m? Pulse Ox: SpO2 Av.5 % Min: 97 % Max: 98 % Supplemental O2: General appearance: No apparent distress, appears stated age and cooperative with exam, male in NAD Respiratory: CTA BL Cardiovascular: Regular rate and rhythm with no murmur Abdomen: Soft, non-tender, non-distended Skin: Skin color, texture, turgor normal. No rashes or lesions. Distal pulses intact in BL LE, no edema in BL LE. Neurologic: grossly non-focal. Discharge Medications: Medication List START taking these medications cephalexin 500 MG capsule Commonly known as: Keflex Take 2 capsules (1,000 mg) by mouth 3 times daily for 5 days. cyanocobalamin 1000 MCG tablet Commonly known as: Vitamin B-12 Take 1 tablet (1,000 mcg) by mouth daily. Start taking on: June 19, 2023 CHANGE how you take these medications pantoprazole 40 MG EC tablet Commonly known as: ProtoNix Take 1 tablet (40 mg) by mouth 2 times daily (before meals) for 30 days, THEN 1 tablet (40 mg) every morning (before breakfast). Do not crush, chew, or split.. Start taking on: June 18, 2023 What changed: See the new instructions. CONTINUE taking these medications acetaminophen 325 MG suppository Commonly known as: Tylenol amLODIPine 2.5 MG tablet Commonly known as: Norvasc ascorbic acid 500 MG tablet Commonly known as: Vitamin C atorvastatin 20 MG tablet Commonly known as: Lipitor bisacodyl 5 MG EC tablet Commonly known as: Dulcolax ferrous sulfate 325 (65 Fe) MG tablet magnesium hydroxide 400 MG/5ML suspension Commonly known as: Milk of Magnesia melatonin 5 MG tablet senna-docusate sodium 8.6-50 MG tablet Commonly known as: Senokot-S tamsulosin 0.4 MG 24 hr capsule Commonly known as: Flomax Vyzulta 0.024 % solution Generic drug: Latanoprostene Bunod STOP taking these medications QUEtiapine 25 MG tablet Commonly known as: SEROquel Where to Get Your Medications These medications were sent to [facility] [address] [facility] [address] Hours: Sunday to (more content not included)...[facility] 06-18-2023 Hospital Discharge instructions* Discharge Instr - BISI* Teresa Campa RN - 06/18/2023 12:27 PM EDT Continuity of Care Form Patient Name: Homero Mei : 1945 Admit date: 06/12/2023 Discharge date: Code Status Order: DNR-CCA Advance Directives: N Admitting Physician: Kobe Charles MD PCP: Lenin Chaudhary MD Discharging Nurse: Discharging Hospital Unit/Room#: B4-459/B4-459 A Discharging Unit Phone Number: Emergency Contact: Extended Emergency Contact Information Primary Emergency Contact: indy mei Mobile Relation: Son Band Singer needed? No Secondary Emergency Contact: hamidawilliam Mobile Relation: Son Band Singer needed? No Past Surgical History: History reviewed. No pertinent surgical history. Immunization History: Immunization History Administered Date(s) Administered Pfizer SARS-CoV-2 Vaccination 06/17/2020, 07/08/2020, 01/10/2021 Active Problems: Medical Problems Problem List * (Principal) Encephalopathy Isolation/Infection: No active isolations No active infections Nurse Assessment: Last Vital Signs: BP 118/70 (BP Location: Right arm, Patient Position: Sitting) Pulse 77 Temp (!) 35.9 C (96.6 F) (Temporal) Resp 17 Ht 1.854 m (6' 1) Wt 88.5 kg (195 lb) SpO2 98% BMI 25.73 kg/m Last documented pain score (0-10 scale): Last Weight: Wt Readings from Last 1 Encounters: 06/13/23 88.5 kg (195 lb) Mental Status: {BISI Patient Mental Status:80403} IV Access: {BISI IV Access:12388} Nursing Mobility/ADLs: Walking {SUE ADL:::Independent} Transfer {SUE ADL:::Independent} Bathing {SUE ADL:::Independent} Dressing {SUE ADL:::Independent} Toileting {SUE ADL:::Independent} Feeding {SUE ADL:::Independent} Banking Pin Adjuster {SUE ADL:::Independent} Med Delivery {yes/no:78702} Wound Care Documentation and Therapy: Elimination: Continence: Bowel: {yes/no:77697} Bladder: {yes/no:} Urinary Catheter: {BISI Urinary Catheter:80312} Colostomy/Ileostomy/Ileal Conduit: {YES / NO:} Date of Last BM: No intake or output data in the 24 hours ending 06/18/23 1227 I/O last 3 completed shifts: In: - (0 mL/kg) Out: 1900 (21.5 mL/kg) [Urine:1900 (0.6 mL/kg/hr)] Weight: 88.5 kg Safety Concerns: {BISI Safety Concerns:84420} Impairments/Disabilities: {BISI Impairments/Disabilities:08446} Nutrition Therapy: Current Nutrition Therapy: {BISI Diet List:91988} Routes of Feeding: {routes of feedin} Liquids: {liquid consistency:43805} Daily Fluid Restriction: {daily fluid restriction:40009} Last Modified Barium Swallow with Video (Video Swallowing Test): {done not done:88779} Treatments at the Time of Hospital Discharge: Respiratory Treatments: Oxygen Therapy: {Therapy; copd oxygen:48778} Ventilator: {BISI Ventilator:39478} Rehab Therapies: {GEN THERAPY DISCIPLINE SCAL:4323265} Weight Bearing Status/Restrictions: {POD WEIGHT BEARIN} Other Medical Equipment (for information only, NOT a DME order): {Assistive Devices DME:66303} Other Treatments: Patient's personal belongings (please select all that are sent with patient): {BISI Patient Belongings:63793} RN SIGNATURE: {E-signature:96512} CASE MANAGEMENT/SOCIAL WORK SECTION Inpatient Status Date: Readmission Risk Assessment Score: @READMISSIONRISKDETAILS@ Discharging to Facility/ Agency Name: [facility] (if applicable) Name: Address: Dialysis Schedule: Phone: Fax: Research Animal Attendant/Pusher Operator signature: {E-signature:81137} PHYSICIAN SECTION Prognosis: {Rehab Prognosis:05278} Condition at Discharge: {Patient Condition:03435} Rehab Potential (if transferring to Rehab): {Rehab Prognosis:65644} Recommended Labs or Other Treatments After Discharge: Physician Certification: I certify the above information and transfer of Homero Mei is necessary for the continuing treatment of the diagnosis listed and that he requires {BISI Level of Care:40809} for {greater less than:39186} 30 days. Update Admission H&P: {BISI Changes in H&P:31375} PHYSICIAN SIGNATURE: {E-signature:90585} documented in this [facility]04-29-2024 Note* Home Care - Teresa Campa RN - 06/18/2023 12:23 PM EDT [facility] accepted referral. Indy Griffith, called and informed. Home care set up. [id number] Note* Home Care - Teresa Campa RN - 06/18/2023 12:23 PM EDT [facility] accepted referral. Indy Griffith, called and informed. Home care set up. [id number] Telephone encounter Note* Telephone Encounter - Lenin Chaudhary MD - 06/18/2023 11:26 AM EDT Yes, will sign and accept. Please schedule f/u in 1 week and obtain records. [facility]04-29-2024 Note* Home Care - Teresa Campa RN - 06/18/2023 11:18 AM EDT Spoke to pt's son, Indy, regarding home care services. Indy agreeable, AOC offered. [facility]. Referrals placed in care port and this PACC will notify son with accepting agency. [id number] Note* Home Care - Teresa Campa RN - 06/18/2023 11:18 AM EDT Spoke to pt's son, Indy, regarding home care services. Indy agreecarley, AOC offered. [facility], second choice is [facility]. Referrals placed in care port and this PACC will notify son with accepting agency. [facility] [id number] Telephone encounter Note* Telephone Encounter - Alyssa Valentin LPN - 06/18/2023 11:14 AM EDT [facility] Nursing Care Attendant [facility] calling patient is being discharged today, was therefor encephalopathy. Patient will have long term and physical therapy, asking if PCP would follow patient and sign orders? Please advise [facility]04-29-2024 Hospital course Narrative* Alphonse Aponte, DO - 06/18/2023 11:03 AM EDT Images from the original note were not included. Hospitalist Discharge Summary Homero Mei : 1945 Admit date: 06/12/2023 Discharge date: 06/18/2023 Admitting Physician: Kobe Charles MD Primary Care Physician: Lenin Chaudhary MD Visit Status: admission Code Status: DNR-CCA Discharge Diagnoses: Acute metabolic encephalopathy Acute UTI, MSSA UTI related to sanz Urinary retention Anemia Hx of upper GIB and PUD Hx of Dementia HTN Hypovitaminosis B12 HLD Hospital Course: patient with acute metabolic encephalopathy with anemia and recent admission to [facility] for bleeding gastric ulcer. Hgb of 7.7 when discharged from [facility]. Continued to have black and bloody stool. Transfused 1 unit PRBC on 06/13/23 due to hgb in the 6 range. Worsening mentation off baseline dementia on presentation, found to have UTI, on broad coverage abx, mentation improved. Urine cultures found to be positive for MSSA. Repeat BC negative after starting abx. Renal US BL negative for acute lesions. Discussed with ID abx stewardship committee, recommended PO Keflex through 06/23/23. Patient Hgb stable after PRBC. Found to be B12 deficient started on PO B12 s upplementation. Patient was evaluated by PT/OT recommended return to SNF for further therapy. Geriatrics on consult. Patient ambulation improved, insurance denied SNF placement due to improving ambulation. Patient cleared by GI for discharge. Patient discharged to home in improved and stable condition on 06/18/23. Patient to follow up with PCP and [facility] outpatient in 1- 2 weeks. Consults: IP CONSULT TO GI IP CONSULT TO GERIATRICS Discharge Instructions: Diet: Adult diet Regular Activity: as tolerated Recommended Outpatient Tests: Disposition: Patient discharged in stable condition to home with [facility] LABS: CBC: Recent Labs 06/16/23 0622 06/17/23 0418 06/18/23 0150 WBC 6.5 7.5 7.9 RBC 2.46* 2.54* 2.89* HGB 7.2* 7.4* 8.4* HCT 22.0* 22.6* 25.8* MCV 89.4 89.0 89.3 RDW 13.8 13.7 13.7 PLT 245 270 304 BMP: Recent Labs 06/16/23 0622 06/17/23 0418 06/18/23 0150 NA 138 138 139 K 4.1 3.6 4.0 CL 109* 108* 109* CO2 BUN 12 15 13 CREATININE 0.92 0.95 0.92 GLUCOSE 117* 107* 108* CALCIUM 8.3* 8.5 9.0 ANIONGAP 6 5 6 LIVER PROFILE:No results for input(s): AST, ALT, BILITOT, ALKPHOS, PROT in the last 72 hours. No lab exists for component: LABALBU PT/INR: No results for input(s): PROTIME, INR in the last 72 hours. CARDIAC ENZYMES: No results for input(s): TROPONINI in the last 72 hours. Procalcitonin: No results found for: PROCAL COVID-19 PCR: No results for input(s): COVID19 in the last 72 hours. Vitals: BP 118/70 (BP Location: Right arm, Patient Position: Sitting) Pulse 77 Temp (!) 35.9 C (96.6 F) (Temporal) Resp 17 Ht 6' 1 (1.854 m) Wt 195 lb (88.5 kg) SpO2 98% BMI 25.73 kg/m Pulse Ox: SpO2 Av.5 % Min: 97 % Max: 98 % Supplemental O2: General appearance: No apparent distress, appears stated age and cooperative with exam, male in NAD Respiratory: CTA BL Cardiovascular: Regular rate and rhythm with no murmur Abdomen: Soft, non-tender, non-distended Skin: Skin color, texture, turgor normal. No rashes or lesions. Distal pulses intact in BL LE, no edema in BL LE. Neurologic: grossly non-focal. Discharge Medications: Medication List START taking these medications cephalexin 500 MG capsule Commonly known as: Keflex Take 2 capsules (1,000 mg) by mouth 3 times daily for 5 days. cyanocobalamin 1000 MCG tablet Commonly known as: Vitamin B-12 Take 1 tablet (1,000 mcg) by mouth daily. Start taking on: June 19, 2023 CHANGE how you take these medications pantoprazole 40 MG EC tablet Commonly known as: ProtoNix Take 1 tablet (40 mg) by mouth 2 times daily (before meals) for 30 days, THEN 1 tablet (40 mg) every morning (before breakfast). Do not crush, chew, or split.. Start taking on: June 18, 2023 What changed: See the new instructions. CONTINUE taking these medications acetaminophen 325 MG suppository Commonly known as: Tylenol amLODIPine 2.5 MG tablet Commonly known as: Norvasc ascorbic acid 500 MG tablet Commonly known as: Vitamin C atorvastatin 20 MG tablet Commonly known as: Lipitor bisacodyl 5 MG EC tablet Commonly known as: Dulcolax ferrous sulfate 325 (65 Fe) MG tablet magnesium hydroxide 400 MG/5ML suspension Commonly known as: Milk of Magnesia melatonin 5 MG tablet senna-docusate sodium 8.6-50 MG tablet Commonly known as: Senokot-S tamsulosin 0.4 MG 24 hr capsule Commonly known as: Flomax Vyzulta 0.024 % solution Generic drug: Latanoprostene Bunod STOP taking these medications QUEtiapine 25 MG tablet Commonly known as: SEROquel Where to Get Your Medications These medications were sent to [facility] [address] [facility] [id number] Hours: Sunday to Sunday 10 am to 6 pm cephalexin 500 MG capsule cyanocobalamin 1000 MCG tablet pantoprazole 40 MG EC tablet Recommended Follow-up: PCP, [facility] outpatient in 1-2 weeks @READMISSIONRISK@ Complexity of Follow up: [] Moderate Complexity: follow up within 7-14 calendar days (65365) [x] Severe Complexity: follow up within 7 calendar days (29662) Follow up Testing, Pending results or Referrals at Transitional Care Visit: [x] yes [] no Instructions to MA: Please call patient on day after discharge (must document patient contacted within 2 business days of discharge). Follow up questions for MA: 1. Did you get medications filled and taking them as instructed from discharge? 2. Are you following your discharge instructions from your hospital stay? 3. Please confirm patient is scheduled for a follow up appointment within the above time frame. Signed: Alphonse Aponte DO Division of Hospitalist Medicine Inpatient Medical Services/[facility] 06/18/2023, 11:04 AM Total time Spent on Discharge: 32 minutes documented in this encounterSRegency Hospital [facility] WestCrnidi42-20-7394 Note* Care Coordination - Laure Prabhakar RN - 06/18/2023 9:04 AM EDT Tasked URI in Careport to submit for [employer] return auth to [facility]. TCC will continue to follow. [facility] HospitalMpvoqu90-27-5790 Note* Care Coordination - Laure Prabhakar RN - 06/18/2023 9:04 AM EDT Tasked URI in Careport to submit for [employer] return auth to [facility]. TCC will continue to follow. [facility] HospitalIjbkqz77-41-6359 NoteHospitalist Progress Note 06/17/2023 [phone]: Please page ny ([phone]) for patient care issues. [phone]: Please page [facility] Hospitalist for any issues. Subjective: Admit Date: 06/12/2023 PCP: Lenin Chaudhary MD Room#: H3-766/S5-234 A Interval History: No overnight issues. Denies chest pain, sob, abdominal pain, nausea, vomiting, diarrhea, constipation, fevers, or chills. Reports feeling ok. Adult diet Regular 24HR INTAKE/OUTPUT: Intake/Output Summary (Last 24 hours) at 06/17/2023 1249 Last data filed at 06/17/2023 0830 Gross per 24 hour Intake -- Output 1900 ml Net -1900 ml Past Medical History: Past Medical History: Diagnosis Date Anemia Gastric ulcer HLD (hyperlipidemia) htn Urinary retention LABS: CBC: Recent Labs 06/15/23 0025 06/15/23 0540 06/16/23 0622 06/17/23 0418 WBC 8.4 -- 6.5 7.5 RBC 2.57* -- 2.46* 2.54* HGB 7.7* 7.8* 7.2* 7.4* HCT 22.9* 23.4* 22.0* 22.6* MCV 89.1 -- 89.4 89.0 RDW 13.8 -- 13.8 13.7 PLT 257 -- 245 270 BMP: Recent Labs 06/15/23 0025 06/16/23 0622 06/17/23 0418 NA 136 138 138 K 3.7 4.1 3.6 CL 107 109* 108* CO2 22 24 25 BUN 15 12 15 CREATININE 1.22 0.92 0.95 GLUCOSE 116* 117* 107* CALCIUM 8.4 8.3* 8.5 ANIONGAP 6 6 5 LIVER PROFILE: No results for input(s): AST, ALT, BILITOT, ALKPHOS, PROT in the last 72 hours. No lab exists for component: LABALBU PT/INR: No results for input(s): PROTIME, INR in the last 72 hours. CARDIAC ENZYMES: No results for input(s): TROPONINI in the last 72 hours. Procalcitonin: No results found for: PROCAL COVID-19 PCR: No results for input(s): COVID19 in the last 72 hours. Objective: Vitals: BP 147/82 (BP Location: Right arm, Patient Position: Sitting) Pulse 73 Temp 36.9 ?C (98.4 ?F) (Temporal) Resp 17 Ht 6' 1 (1.854 m) Wt 195 lb (88.5 kg) SpO2 97% BMI 25.73 kg/m? Pulse Ox: SpO2 Av.5 % Min: 97 % Max: 98 % Supplemental O2: General appearance: No apparent distress, appears stated age and cooperative with exam, elderly male in NAD, AAOx2 Respiratory: CTA BL Cardiovascular: Regular rate and rhythm with no murmur Abdomen: Soft, non-tender, non-distended Skin: Skin color, texture, turgor normal. No rashes or lesions. Distal pulses intact in BL LE, no edema in BL LE. Neurologic: grossly non-focal. Medications: amLODIPine, 2.5 mg, Oral, Daily atorvastatin, 20 mg, Oral, Nightly ceFAZolin, 1,000 mg, IntraVENous, q8h cyanocobalamin, 1,000 mcg, Oral, Daily ferrous sulfate, 325 mg, Oral, Daily with breakfast latanoprost, 1 drop, Both Eyes, Nightly pantoprazole, 40 mg, Oral, BID AC senna-docusate sodium, 2 tablet, Oral, BID tamsulosin, 0.4 mg, Oral, Daily Assessment Acute metabolic encephalopathy Acute UTI UTI likely related to sanz Urinary retention Sanz placed UA positive, UC MSSA Broad coverage abx [facility] for [facility] Anemia Hx of upper GIB and PUD S/p 1 unit PRBC on 06/13/23 IV PPI GI on consult, no indication for EGD currently. Hgb Stable following PRBC , CBC in the AM Anemia workup pending Hx of dementia seroquel PRN only HTN Amlodipine Hypovitaminosis B12 Daily PO B12 supplementation HLD Statin Medical Decision Makin06/13/23: patient with acute metabolic encephalopathy with anemia and recent admission to [facility] for bleeding gastric ulcer. Hgb of 7.7 when discharged from [facility]. Continued to have black and bloody stool. Transfused 1 unit PRBC today due to hgb in the 6 range. Worsening mentation off baseline dementia on presentation, found to have UTI, on broad coverage abx, mentation improved now AAOx2. Discussed with GI, plan for repeat EGD on 06/14/23 if hgb continues to drop. Trend h/h. BMP in the AM. 06/14/23: patient diet advanced per GI recs today. Hgb stable in the 7 range today. No further episodes of bleeding or black stool. Continue on broad coverage abx. Labs and vitals otherwise reviewed and stable. Mentation improved and stable. Awaiting for auth to return to SNF, [facility]. Addendum 06/14/23 13:14: discussed with ID abx stewardship, urine cultures are positive for MSSA, BC x2 pending, abx changed to cefazolin. 06/15/23: patient found to have urine cultures positive for MSSA. BC pending. Discussed with ID abx stewardship today, obtain BL renal US to assess for outflow obstruction. BC to be negative x48 hours, patient to be transitioned to Cephalexin 1g TID, through 06/23/23. H/h stable. Patient off seroquel currently. Mentation stable. Discussed with CM, facility not willing to accept until 06/17 due to agitation and requiring seroquel at facility, wants to see how he does in the hospital while not on seroquel before willing to accept back at SNF. Cbc and BMP in the AM. 06/16/23: patient BC negative so far. Renal US negative. Hgb stable in the mid to low 7 range. (more content not included)...[facility]04-27-2024 NoteHospitalist Progress Note 06/16/[id number]: Please page me ([phone]) for patient care issues. [phone]: Please page [facility] Hospitalist for any issues. Subjective: Admit Date: 06/12/2023 PCP: Lenin Chaudhary MD Room#: K7-199/P4-871 A Interval History: No overnight issues. Denies chest pain, sob, abdominal pain, nausea, vomiting, diarrhea, constipation, fevers, or chills. Reports feeling ok. Adult diet Regular 24HR INTAKE/OUTPUT: Intake/Output Summary (Last 24 hours) at 06/16/2023 1146 Last data filed at 06/16/2023 0923 Gross per 24 hour Intake 500 ml Output 2200 ml Net -1700 ml Past Medical History: Past Medical History: Diagnosis Date Anemia Gastric ulcer HLD (hyperlipidemia) htn Urinary retention LABS: CBC: Recent Labs 06/14/23 0025 06/14/23 0545 06/15/23 0025 06/15/23 0540 06/16/23 0622 WBC 6.4 -- 8.4 -- 6.5 RBC 2.48* -- 2.57* -- 2.46* HGB 7.4* < > 7.7* 7.8* 7.2* HCT 22.2* < > 22.9* 23.4* 22.0* MCV 89.5 -- 89.1 -- 89.4 RDW 13.9 -- 13.8 -- 13.8 PLT 216 -- 257 -- 245 < > = values in this interval not displayed. BMP: Recent Labs 06/14/23 0025 06/15/23 0025 06/16/23 0622 NA 136 136 138 K 4.2 3.7 4.1 CL 108* 107 109* CO2 22 24 BUN 17 15 12 CREATININE 0.84 1.22 0.92 GLUCOSE 103* 116* 117* CALCIUM 8.4 8.4 8.3* ANIONGAP 4 6 6 LIVER PROFILE: No results for input(s): AST, ALT, BILITOT, ALKPHOS, PROT in the last 72 hours. No lab exists for component: LABALBU PT/INR: No results for input(s): PROTIME, INR in the last 72 hours. CARDIAC ENZYMES: No results for input(s): TROPONINI in the last 72 hours. Procalcitonin: No results found for: PROCAL COVID-19 PCR: No results for input(s): COVID19 in the last 72 hours. Objective: Vitals: BP 104/58 (BP Location: Left arm, Patient Position: Lying) Pulse 67 Temp 36.9 ?C (98.5 ?F) (Temporal) Resp 17 Ht 6' 1 (1.854 m) Wt 195 lb (88.5 kg) SpO2 97% BMI 25.73 kg/m? Pulse Ox: SpO2 Av.5 % Min: 97 % Max: 100 % Supplemental O2: General appearance: No apparent distress, appears stated age and cooperative with exam, elderly male in NAD, AAOx2 Respiratory: CTA BL Cardiovascular: Regular rate and rhythm with no murmur Abdomen: Soft, non-tender, non-distended Skin: Skin color, texture, turgor normal. No rashes or lesions. Distal pulses intact in BL LE, no edema in BL LE. Neurologic: grossly non-focal. Medications: amLODIPine, 2.5 mg, Oral, Daily atorvastatin, 20 mg, Oral, Nightly ceFAZolin, 1,000 mg, IntraVENous, q8h cyanocobalamin, 1,000 mcg, Oral, Daily ferrous sulfate, 325 mg, Oral, Daily with breakfast pantoprazole, 40 mg, Oral, BID AC senna-docusate sodium, 2 tablet, Oral, BID tamsulosin, 0.4 mg, Oral, Daily Assessment Acute metabolic encephalopathy Acute UTI UTI likely related to sanz Urinary retention Sanz placed UA positive, UC MSSA Broad coverage abx Will follow up with urology outpatient Flomax BL renal US negative for obstruction Anemia Hx of upper GIB and PUD S/p 1 unit PRBC on 06/13/23 IV PPI GI on consult, no indication for EGD currently. Hgb Stable following PRBC , CBC in the AM Anemia workup pending Hx of dementia seroquel PRN only HTN Amlodipine Hypovitaminosis B12 Daily PO B12 supplementation HLD Statin Medical Decision Makin06/13/23: patient with acute metabolic encephalopathy with anemia and recent admission to [facility] for bleeding gastric ulcer. Hgb of 7.7 when discharged from [facility]. Continued to have black and bloody stool. Transfused 1 unit PRBC today due to hgb in the 6 range. Worsening mentation off baseline dementia on presentation, found to have UTI, on broad coverage abx, mentation improved now AAOx2. Discussed with GI, plan for repeat EGD on 06/14/23 if hgb continues to drop. Trend h/h. BMP in the AM. 06/14/23: patient diet advanced per GI recs today. Hgb stable in the 7 range today. No further episodes of bleeding or black stool. Continue on broad coverage abx. Labs and vitals otherwise reviewed and stable. Mentation improved and stable. Awaiting for auth to return to SNF, [facility]. Addendum 06/14/23 13:14: discussed with ID abx stewardship, urine cultures are positive for MSSA, BC x2 pending, abx changed to cefazolin. 06/15/23: patient found to have urine cultures positive for MSSA. BC pending. Discussed with ID abx stewardship today, obtain BL renal US to assess for outflow obstruction. BC to be negative x48 hours, patient to be transitioned to Cephalexin 1g TID, through 06/23/23. H/h stable. Patient off seroquel currently. Mentation stable. Discussed with CM, facility not willing to accept until 06/17 due to agitation and requiring seroquel at facility, wants to see how he does in the hospital while not on seroquel before willing to accept back at SNF. Cbc and BMP in the AM. 06/16/23: patient BC negative so far. Renal US neg (more content not included)... [facility]04-26-2024 NoteHospitalist Progress Note 06/15/2023 [id number]: Please page me ([phone]) for patient care issues. [phone]: Please page [facility] Hospitalist for any issues. Subjective: Admit Date: 06/12/2023 PCP: Lenin Chaudhary MD Room#: D1-330/J6-043 A Interval History: No overnight issues. Denies chest pain, sob, abdominal pain, nausea, vomiting, diarrhea, constipation, fevers, or chills. Reports feeling ok. And getting around well. Adult diet Regular 24HR INTAKE/OUTPUT: Intake/Output Summary (Last 24 hours) at 06/15/2023 1139 Last data filed at 06/14/2023 2300 Gross per 24 hour Intake 50 ml Output 1000 ml Net -950 ml Past Medical History: Past Medical History: Diagnosis Date Anemia Gastric ulcer HLD (hyperlipidemia) htn Urinary retention LABS: CBC: Recent Labs 06/13/23 0314 06/13/23 1741 06/14/23 0025 06/14/23 0545 06/14/23 1736 06/15/23 0025 06/15/23 0540 WBC 7.8 -- 6.4 -- -- 8.4 -- RBC 2.43* -- 2.48* -- -- 2.57* -- HGB 7.2* < > 7.4* < > 8.7* 7.7* 7.8* HCT 21.7* < > 22.2* < > 26.3* 22.9* 23.4* MCV 89.3 -- 89.5 -- -- 89.1 -- RDW 13.7 -- 13.9 -- -- 13.8 -- PLT 212 -- 216 -- -- 257 -- < > = values in this interval not displayed. BMP: Recent Labs 06/13/23 0314 06/14/23 0025 06/15/23 0025 NA 137 136 136 K 3.8 4.2 3.7 CL 108* 108* 107 CO2 26 25 22 BUN 21* 17 15 CREATININE 1.07 0.84 1.22 GLUCOSE 107* 103* 116* CALCIUM 8.3* 8.4 8.4 ANIONGAP 4 4 6 LIVER PROFILE: Recent Labs 06/13/23 0314 AST 13* ALT 18 BILITOT 0.4 ALKPHOS 47 PROT 5.3* PT/INR: No results for input(s): PROTIME, INR in the last 72 hours. CARDIAC ENZYMES: Recent Labs 06/12/232015 TROPONINI <0.012 Procalcitonin: No results found for: PROCAL COVID-19 PCR: No results for input(s): COVID19 in the last 72 hours. Objective: Vitals: BP 126/75 (BP Location: Left arm, Patient Position: Lying) Pulse 62 Temp 36.8 ?C (98.2 ?F) (Temporal) Resp 18 Ht 6' 1 (1.854 m) Wt 195 lb (88.5 kg) SpO2 97% BMI 25.73 kg/m? Pulse Ox: SpO2 Av.5 % Min: 97 % Max: 100 % Supplemental O2: General appearance: No apparent distress, appears stated age and cooperative with exam, elderly male in NAD, AAOx2 Respiratory: Normal respiratory effort. CTA BL, no wheezing Cardiovascular: Regular rate and rhythm with no murmur Abdomen: Soft, non-tender, non-distended Skin: Skin color, texture, turgor normal. No rashes or lesions. Distal pulses intact in BL LE, no edema in BL LE. Neurologic: grossly non-focal. Medications: amLODIPine, 2.5 mg, Oral, Daily atorvastatin, 20 mg, Oral, Nightly ceFAZolin, 1,000 mg, IntraVENous, q8h cyanocobalamin, 1,000 mcg, Oral, Daily docusate sodium, 100 mg, Oral, BID ferrous sulfate, 325 mg, Oral, Daily with breakfast pantoprazole, 40 mg, Oral, BID AC tamsulosin, 0.4 mg, Oral, Daily Assessment Acute metabolic encephalopathy Acute UTI UTI likely related to sanz Urinary retention Sanz placed UA positive, UC MSSA Broad coverage abx Will follow up with urology outpatient Flomax BL renal US pending Anemia Hx of upper GIB and PUD S/p 1 unit PRBC on 06/13/23 IV PPI GI on consult, EGD planned for 06/14/23 if hgb continues to drop. , CBC in the AM Hx of dementia seroquel PRN only HTN Amlodipine HLD statin Medical Decision Makin06/13/23: patient with acute metabolic encephalopathy with anemia and recent admission to [facility] for bleeding gastric ulcer. Hgb of 7.7 when discharged from [facility]. Continued to have black and bloody stool. Transfused 1 unit PRBC today due to hgb in the 6 range. Worsening mentation off baseline dementia on presentation, found to have UTI, on broad coverage abx, mentation improved now AAOx2. Discussed with GI, plan for repeat EGD on 06/14/23 if hgb continues to drop. Trend h/h. BMP in the AM. 06/14/23: patient diet advanced per GI recs today. Hgb stable in the 7 range today. No further episodes of bleeding or black stool. Continue on broad coverage abx. Labs and vitals otherwise reviewed and stable. Mentation improved and stable. Awaiting for auth to return to SNF, [facility]. Addendum 06/14/23 13:14: discussed with ID abx stewardship, urine cultures are positive for MSSA, BC x2 pending, abx changed to cefazolin. 06/15/23: patient found to have urine cultures positive for MSSA. BC pending. Discussed with ID abx stewardship today, obtain BL renal US to assess for outflow obstruction. BC to be negative x48 hours, patient to be transitioned to Cephalexin 1g TID, through 06/23/23. H/h stable. Patient off seroquel currently. Mentation stable. Discussed with CM, facility not willing to accept until 06/17 due to agitation and requiring seroquel at facility, wants to see how he does in the hospital while not on seroquel before willing to accept back at SNF. Cbc and BMP in the AM. -am labs, replace lytes prn -increase activity -resume home medi (more content not included)...[facility] 06-15-2023 NotePHYSICAL THERAPY [facility] Initial Evaluation Name/MRN: Homero Mei ([id number]) Evaluation Date: 06/15/2023 Date of : 1945 Admission Date: 06/12/2023 7:48 PM Age: 77 y.o. Room/Bed: [facility]9/[facility] A Discharge Recommendation: Nursing Home Facility Other: TBD at next level of care Assessment IMPRESSION: Pt presents with decreased functional mobility, decreased strength, decreased safety awareness, decreased endurance and impaired balance. Pt has decreased standing balance, poor activity tolerance, decreased safety awareness and weakness requiring physical assist of 1 person in order to safely complete OOB mobility placing him at a high risk of falling. Pt could benefit from skilled PT in order to address his decreased functional mobility, strength, balance and safety. Pt has medical history as listed below that that contributes to his clinical presentation. At baseline patient is functionally independent with no device. Currently patient is unsafe to return home secondary to his increased need for assist and fall risks with mobility. Diagnosis: Pt admitted for altered mental status found to have UTI and encephalopathy with Hx of dementia, recent hospitalization for bleeding ulcer, and anemia. Pt was discharged to SNF for rehabilitation 1 week ago. Prognosis: good Performance Deficits /Impairments: Decreased Functional Mobility, Decreased Strength, Decreased Safety Awareness, Decreased Cognition, Decreased Endurance, and Decreased Balance Decision Making: Medium Complexity Subjective Patient pleasant and agreeable to therapy session this date. Per RN patient okay for therapy. Co-eval with OT. Observation: PIV and sanz intact Pain: Pt denies any current pain. Past Medical History: Past Medical History: Diagnosis Date Anemia Gastric ulcer HLD (hyperlipidemia) htn Urinary retention Past Surgical History: History reviewed. No pertinent surgical history. Admission Diagnosis: Patient Active Problem List Diagnosis Date Noted Encephalopathy 06/12/2023 Medical Precautions: No active isolations Proper PPE donned/doffed in accordance with facility standards. Fall Risk: Gomez Fall Risk Score: 35 (Medium Risk) Precautions/Restrictions: N/A Family/Caregiver Present: none Overall Cognitive Status: Exceptions - Attention span: attends with cues to redirect - Safety judgement: decreased awareness of need for assistance and decreased awareness of need for safety - Problem solving: assistance required to generate solutions, assistance required to implement solutions, and decreased awareness of errors - Insights: decreased awareness of deficits - Sequencing: requires cues for some - h/o dementia Overall Orientation Status: Oriented to Time, Oriented to Situation, and Oriented to Person Vision: wears glasses at all times and and are being used during the eval Hearing: normal Social/Functional History Patient admitted from home. 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 Transfers Sit to stand: Contact Guard, to no device from EOB Stand to sit: Contact Guard Denies dizziness on initial stance. Pt reaching for environmental supports on initial stance. Ambulation Ambulation 1 Assistive device(s) used: none Assist level: Contact Guard, Min Assist Distance (ft): 50 ft x 1, 25 ft x 1 Quality of gait: antalgic, reciprocal stepping, B foot clearance, uneven step length, slow liang, postural sway, path deviations Pt reaching out for environmental supports initially with ambulation requiring Darell, progressing to CGA for part of distance. Antalgic stepping on L LE noted, occasional narrow SURINDER with near scissoring leading to increased instability. Pt with decreased insight into limitations at this time. Outcome Measures AM-PAC How much HELP from another person do you currently need Turning from your back to your side while in a flat bed without using bedrails?: A Little Moving from lying on your back to sitting on the side of a flat bed without using b (more content not included)...[facility] [id number] Note OCCUPATIONAL THERAPY [facility] Initial Evaluation Name/MRN: Homero Mei ([id number]) Evaluation Date: 06/15/2023 Date of : 1945 Admission Date: 06/12/2023 7:48 PM Age: 77 y.o. Room/Bed: B4459/B4459 A Discharge Recommendation: Nursing Home Facility Assessment IMPRESSION: Pt admitted for altered mental status found to have UTI and encephalopathy with Hx of dementia, recent hospitalization for bleeding ulcer, and anemia. Pt was discharged to SNF for rehabilitation 1 week ago. Prior to recent admission, pt was independent in transfers and mobility with no device, and ADLs. Pt currently requires SBA for bed mobility, CGA for transfers with no device, CGA-Darell for mobility with no device, and Mod I-Min A for ADLs. Pt is limited by decreased endurance, mobility, transfers, and increased confusion. Pt should benefit from skilled OT services to increase independence and safety in ADLs. Performance Deficits /Impairments: Decreased Functional Mobility, Decreased ADL status, Decreased Safety Awareness, Decreased Endurance, Decreased Balance, and Decreased High Level IADLs Prognosis: Good Decision Making: Medium Complexity Subjective Pt is pleasant and cooperative. Per RN, okay for pt to participate in OT eval. Co-eval with PT for safety. Catheter and IV intact. Pain: Pt denies any current pain. Past Medical History: Past Medical History: Diagnosis Date Anemia Gastric ulcer HLD (hyperlipidemia) htn Urinary retention Past Surgical History: History reviewed. No pertinent surgical history. Admission Diagnosis: Patient Active Problem List Diagnosis Date Noted Encephalopathy 06/12/2023 Medical Precautions: No active isolations Proper PPE donned/doffed in accordance with facility standards. Fall Risk: Gomez Fall Risk Score: 35 (Medium Risk) Precautions/Restrictions: Fall precautions Family/Caregiver Present: none Overall Cognitive Status: Exceptions - Attention span: attends with cues to redirect - Safety judgement: decreased awareness of need for assistance and decreased awareness of need for safety - Problem solving: assistance required to generate solutions, assistance required to implement solutions, and decreased awareness of errors - Insights: decreased awareness of deficits - Sequencing: requires cues for some Overall Orientation Status: Oriented to Time, Oriented to Situation, and Oriented to Person Social/Functional History Patient admitted from home. 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 Pt reports dressing himself this morning with no assistance from nursing staff. Pt deferred completing ADLs during this session. Upper Extremity Assessment AROM: WFL PROM: WFL Strength: WFL Vision: wears glasses at all times and and are being used during the eval Hearing: normal Bed Mobility Supine to sit: SBA Scooting: SBA HOB elevated with use of bed features and increased time. Pt completed supine to EOB and scooting to EOB with SBA and verbal cues for attention to task and sequencing of task. Pt left in recliner at the end of session with chair alarm in place. Pt denies dizziness with changes in positions. Transfers/Functional Mobility Sit to stand: Contact Guard Stand to sit: Contact Guard Standing balance: Contact Guard Functional mobility: Contact Guard, Min Assist Pt completed STS transfer from EOB with no device with CGA, and to recliner with no device with CGA and verbal cues for safe hand placement. Pt completed standing balance ~ 1 minute at no device with CGA and verbal cues for maintaining balance and safety techniques. Pt completed functional mobility with no device with Darell during obstacle negotiation, however progressing to CGA with no device with no obstacles. Pt balance improved during mobility task when pt not utilizing furniture to ambulate. Device(s) used: front wheeled walker AM-PAC AM-PAC Inpatient Daily Activity Raw Score: 20 ADL Inpatient CMS G-Code Modifier: CJ Plan Pt would benefit from skilled acute OT services to address Balance Training, Functional Mobility Training, Endurance Training, Safety Education and Training, Patient/Caregiver Training, Equipment Evaluation/Education, Self-Care/ADL Training, and Home Management (more content not included)...[facility] [id number] NoteCare Management Progress Note Patient remains on 4S for encephalopathy Clinical updates: [facility]CC requested PT and OT Evals for return to SNF, orders placed by Dr. Aponte. Spoke with Yoselin at [facility], Admin is requesting Sunday return so we can see how he does off of the Seroquel. We really thought he was going to be a [facility] admission somewhere. We need to see how his behaviors are before we can take him back. Will submit auth on Sunday per SNF request Discharge plan: Return to [facility] Discharge obstacles: Awaiting PT/OT Evals, awaiting mentation off of Seroquel per SNF request TCC will continue to follow. Discharge Milestones and Delays Expected Date/Time: 06/18/[address] discharge order Complete med reconciliation Case mgmt discharge readiness Clinical Stability Diagnsotic Workup Expected Discharge History Expected Date/Time Set By Reviewed At 06/18/2023 Laure Prabhakar RN 06/15/2023 8:37 AM SNF Admin wants to wait until Mon See how pt does off Seroquel Will start Auth 06/15/2023 Laure Prabhakar RN 06/14/2023 8:34 AM [facility] saw GI:Monitor [facility]: Added Melatonin 06/14/2023 BETZAIDA Ledesma 06/13/2023 10:25 AM From [facility] 06/14/2023 Kodak Tejeda, DO 06/13/2023 1:16 AM 06/14/2023 Kodak Tejeda, DO 06/12/2023 9:43 PM Length of Stay (Days): 3 GMLOS: [address] [place], [place] [id number] Note* Care Coordination - Laure Prabhakar RN - 06/15/2023 8:36 AM EDT Images from the original note were not included. Care Management Progress Note Patient remains on 4S for encephalopathy Clinical updates: TCC requested PT and OT Evals for return to SNF, orders placed by Dr. Aponte. Spokewith Yoselin at [facility], Admin is requesting Sunday return so we can see how he does off of the Seroquel. We really thought he was going to be a [facility]psych admission somewhere. We need to see how his behaviors are before we can take him back. Will submit auth on Sunday per SNF request Discharge plan: Return to [facility] Discharge obstacles: Awaiting PT/OT Evals, awaiting mentation off of Seroquel per SNF request TCC will continue to follow. Discharge Milestones and Delays Expected Date/Time: 06/18/[address] discharge order Complete med reconciliation Case mgmt discharge readiness Clinical Stability Diagnsotic Workup Expected Discharge History Expected Date/Time Set By Reviewed At 06/18/2023 Laure Prabhakar RN 06/15/2023 8:37 AM SNF Admin wants to wait until Sun See how pt does off Seroquel Will start Auth 06/15/2023 Laure Prabhakar RN 06/14/2023 8:34 AM [facility] saw GI:Monitor [facility]: Added Melatonin 06/14/2023 Gia Cisneros, [facility] 06/13/2023 10:25 AM From [facility] 06/14/2023 Kodak Tejeda, DO 06/13/2023 1:16 AM 06/14/2023 Kodak Tejeda, DO 06/12/2023 9:43 PM Length of Stay (Days): 3 [id number] Care Coordination - Laure Prabhakar RN - 06/15/2023 8:36 AM EDT Images from the original note were not included. Care Management Progress Note Patient remains on 4S for encephalopathy Clinical updates: TCC requested PT and OT Evals for return to SNF, orders placed by Dr. Aponte. Spokewith Yoselin at [facility], Admin is requesting Sunday return so we can see how he does off of the Seroquel. We really thought he was going to be a [facility] admission somewhere. We need to see how his behaviors are before we can take him back. Will submit auth on Sunday per SNF request Discharge plan: Return to [facility] Discharge obstacles: Awaiting PT/OT Evals, awaiting mentation off of Seroquel per SNF request TCC will continue to follow. Discharge Milestones and Delays Expected Date/Time: 06/18/[address] discharge order Complete med reconciliation Case mgmt discharge readiness Clinical Stability Diagnsotic Workup Expected Discharge History Expected Date/Time Set By Reviewed At 06/18/2023 Laure Prabhakar RN 06/15/2023 8:37 AM SNF Admin wants to wait until Mon See how pt does off Seroquel Will start Auth 06/15/2023 Laure Prabhakar RN 06/14/2023 8:34 AM GI and Geriatrics saw GI:Monitor [facility] Geriatrics: Added Melatonin 06/14/2023 BETZAIDA Ledesma 06/13/2023 10:25 AM From [facility] 06/14/2023 Kodak Tejeda, DO 06/13/2023 1:16 AM 06/14/2023 Kodak Tejeda, DO 06/12/2023 9:43 PM Length of Stay (Days): 3 GMLOS: 3.[address] [id number] NoteGASTROENTEROLOGY PROGRESS NOTE Patient: Homero Mei : 1945 Primary Care Physician: Lenin Chaudhary MD History: Stable, no complaints. Hemoglobin remained stable overnight. No evidence of GI bleeding. Has not had a BM. Denies abdominal pain, F/C/S Physical Exam: Gen: AAOx3 in NAD BP 111/64 (BP Location: Left arm, Patient Position: Lying) Pulse 61 Temp 36.6 ?C (97.9 ?F) (Temporal) Resp 18 Ht 6' 1 (1.854 m) Wt 195 lb (88.5 kg) SpO2 96% BMI 25.73 kg/m? HEENT: MMM, sclera anicteric CVS: RRR, s1, s2, no mrg Lungs: CTA B/L, no RRW Abd: Soft, NT/ND, +BS, No guarding/rebound, Laboratory Data: CBC: Results from last 7 days Lab Units 06/14/23 1220 06/14/23 0545 06/14/23 0025 06/13/23 1741 06/13/23 0314 06/12/232015 WBC AUTO 10*3/uL -- -- 6.4 -- 7.8 7.7 HEMOGLOBIN g/dL 7.8* 7.5* 7.4* < > 7.2* 6.9* HEMATOCRIT % 23.5* 23.0* 22.2* < > 21.7* 20.8* PLATELETS AUTO 10*3/uL -- -- 216 -- 212 228 < > = values in this interval not displayed. CMP: Recent Labs 06/13/23 0314 06/14/23 0025 NA 137 136 K 3.8 4.2 CL 108* 108* CO2 26 25 BUN 21* 17 CREATININE 1.07 0.84 GLUCOSE 107* 103* CALCIUM 8.3* 8.4 HEPATIC: Results from last 7 days Lab Units 06/13/23313 ALK PHOS U/L 47 BILIRUBIN TOTAL mg/dL 0.4 PROTEIN TOTAL g/dL 5.3* ALT U/L 18 AST U/L 13* Assessment: History of bleeding gastric ulcer with visible vessel: S/p endoscopic hemostasis at [facility]. Remains anemic, but no signs of active GI bleeding. Rule out slow bleed vs. equilibration of hemoglobin. Acute versus subacute blood loss anemia: Hemoglobin stable s/p 1 unit PRBC Plan: Hold off on EGD today. Continue PPI twice daily and recommend repeat EGD in 8 weeks Continue iron therapy Diet as tolerated Will sign off for now. Please call if can be of further assistance. (Comment: Please note this report has been produced using speech recognition software and may contain errors related to that system including errors in grammar, punctuation, and spelling, as well as words and phrases that may be inappropriate. If there are any questions or concerns please feel free to contact the dictating provider for clarification.) Electronically signed by Danilo Cody DO 06/14/2023 2:15 [facility]04-25-2024 NoteHospitalist Progress Note 06/14/[id number]: Please page me ([phone]) for patient care issues. [phone]: Please page [facility] Hospitalist for any issues. Subjective: Admit Date: 06/12/2023 PCP: Lenin Chaudhary MD Room#: G6-567/S2-617 A Interval History: No overnight issues. Denies chest pain, sob, abdominal pain, nausea, vomiting, diarrhea, constipation, fevers, or chills. Reports feeling ok. Adult diet Regular 24HR INTAKE/OUTPUT: Intake/Output Summary (Last 24 hours) at 06/14/2023 1140 Last data filed at 06/14/2023 1032 Gross per 24 hour Intake 100 ml Output 2900 ml Net -2800 ml Past Medical History: Past Medical History: Diagnosis Date Anemia Gastric ulcer HLD (hyperlipidemia) htn Urinary retention LABS: CBC: Recent Labs 06/12/23201506/13/23 0314 06/13/23 1741 06/14/23 0025 06/14/23 0545 WBC 7.7 7.8 -- 6.4 -- RBC 2.30* 2.43* -- 2.48* -- HGB 6.9* 7.2* 9.0* 7.4* 7.5* HCT 20.8* 21.7* 27.3* 22.2* 23.0* MCV 90.4 89.3 -- 89.5 -- RDW 13.8 13.7 -- 13.9 -- PLT 228 212 -- 216 -- BMP: Recent Labs 06/12/23201506/13/234 06/14/23 0025 NA 136 137 136 K 3.9 3.8 4.2 CL 105 108* 108* CO2 24 26 25 BUN 20 21* 17 CREATININE 1.21 1.07 0.84 GLUCOSE 117* 107* 103* CALCIUM 8.5 8.3* 8.4 ANIONGAP 7 4 4 LIVER PROFILE: Recent Labs 06/13/23313 AST 13* ALT 18 BILITOT 0.4 ALKPHOS 47 PROT 5.3* PT/INR: No results for input(s): PROTIME, INR in the last 72 hours. CARDIAC ENZYMES: Recent Labs 06/12/232015 TROPONINI <0.012 Procalcitonin: No results found for: PROCAL COVID-19 PCR: No results for input(s): COVID19 in the last 72 hours. Objective: Vitals: BP 111/64 (BP Location: Left arm, Patient Position: Lying) Pulse 61 Temp 36.6 ?C (97.9 ?F) (Temporal) Resp 18 Ht 6' 1 (1.854 m) Wt 195 lb (88.5 kg) SpO2 96% BMI 25.73 kg/m? Pulse Ox: SpO2 Av.5 % Min: 96 % Max: 97 % Supplemental O2: General appearance: No apparent distress, appears stated age and cooperative with exam, elderly male in NAD, AAOx2 Respiratory: Normal respiratory effort. CTA BL, no wheezing Cardiovascular: Regular rate and rhythm with no murmur Abdomen: Soft, non-tender, non-distended Skin: Skin color, texture, turgor normal. No rashes or lesions. Distal pulses intact in BL LE, no edema in BL LE. Neurologic: grossly non-focal. Medications: pantoprazole in NS (Protonix) 80 mg in 100 mL (0.8 mg/mL) infusion, 8 mg/hr, Last Rate: 8 mg/hr (06/14/23 1032) amLODIPine, 2.5 mg, Oral, Daily atorvastatin, 20 mg, Oral, Nightly cefTRIAXone, 1,000 mg, IntraVENous, q24h cyanocobalamin, 1,000 mcg, Oral, Daily docusate sodium, 100 mg, Oral, BID ferrous sulfate, 325 mg, Oral, Daily with breakfast tamsulosin, 0.4 mg, Oral, Daily Assessment Acute metabolic encephalopathy Acute UTI UTI likely related to sanz Urinary retention Sanz placed UA positive, UC pending Broad coverage abx Will follow up with urology outpatient Flomax Anemia Hx of upper GIB and PUD S/p 1 unit PRBC on 06/13/23 IV PPI GI on consult, EGD planned for 06/14/23 if hgb continues to drop. Trend h/h, CBC in the AM NPO after midnight Hx of dementia Seroquel at night resumed HTN Amlodipine HLD statin Medical Decision Makin06/13/23: patient with acute metabolic encephalopathy with anemia and recent admission to [facility] for bleeding gastric ulcer. Hgb of 7.7 when discharged from [facility]. Continued to have black and bloody stool. Transfused 1 unit PRBC today due to hgb in the 6 range. Worsening mentation off baseline dementia on presentation, found to have UTI, on broad coverage abx, mentation improved now AAOx2. Discussed with GI, plan for repeat EGD on 06/14/23 if hgb continues to drop. Trend h/h. BMP in the AM. 06/14/23: patient diet advanced per GI recs today. Hgb stable in the 7 range today. No further episodes of bleeding or black stool. Continue on broad coverage abx. Labs and vitals otherwise reviewed and stable. Mentation improved and stable. Awaiting for auth to return to [facility], [facility]. Addendum 06/14/23 13:14: discussed with ID abx stewardship, urine cultures are positive for MSSA, BC x2 pending, abx changed to cefazolin. -am labs, replace lytes prn -increase activity -resume home medications as indicated -DVT prophylaxis: [] Lovenox [] Heparin [] SCDs [x] Encourage ambulation [] Already on Anticoagulation Anticipated Discharge - Date - 06/14 - Location - [facility] - Pending the following - improvement in mentation, stable h/h, clearance by GI. Toxic drug monitoring/narrow therapeutic index drug monitoring : # Drug name : # Route administered : # Method of monitoring : Extended Emergency Contact Information Primary Emergency Contact: indy mei Mobile Relation: Son Band Singer needed? No Secondary Emergency Contact: william mei Mobile Phone: (more content not included)...[facility]04-25-2024 NoteReferral placed to return back to [facility]- [facility] via [facility] per TCC request. Await review and response regarding ability to accept. TCC notified. [facility]04-25-2024 Note* Care Coordination - Laure Prabhakar RN - 06/14/2023 11:36 AM EDT Care Managment Initial Assessment Date: 06/14/2023 Patient Name: Homero Mei : 1945 Patient Information Source of Information: Patient Primary Substance Abuse Counselor Name/Contact Information: Son/POA Indy via telephone Cognition/Language: Confused at baseline Permission given to speak with patient public relations representative/caregiver as indicated: Yes Confirmation of Payer with patient/family: Yes Payer Name: Gracie CORONA [place]: No Confirmation of Primary Care Physician: Confirmed PCP Name: Dr Lenin Chaudhary Seen in last 2 years?: Yes Primary Caregiver: ([facility] staff) If assistance needed, confirmed caregiver ready, willing and able to care for patient at discharge:Yes Confirmed with: Yoselin from [facility] via telephone Living Arrangements Current Residence: Number of Floors Number of Entry Steps: Bed/Bath Levels: Facility: Nursing Facility Skilled Facility Name: [facility] Plan to Return: Yes Lives with: (SNF staff and residents) Support Systems: Children, Family members, Friends/neighbors (SNF staff and residents) Activities of Daily Living Ambulation: Assistance (Uses WW) Bathing/Dressing: Assistance Elimination/Continence/Toileting: Assistance Feeding: Independent Who Assists with Activities of Daily Living: [facility] staff Instrumental Activities of Daily Living Prescription Coverage: Yes Pharmacy Used: [facility] Medication Management: ([facility] nurses manage meds) Transportation/Shopping: Assistance Provider Transportation/Shopping Assistance Provider Name: William Transportation Mode: Car Needs Assistance with Transportation at Discharge: Yes ([employer] to set up return transport) Meal Preparation: Assistance Provider Meal Prep Assistance Provider Name: [facility] staff Laundry/Cleaning: Assistance Provider Laundry/Cleaning Assistance Provider Name: [facility] staff Finances/Bill Paying: Assistance Provider Finances/Bill Payer Assistance Provider Name: Indy Communication: Independent Types of Care Services/Equipment Utilized Care Services: Dialysis Type: Durable Medical Equipment: Walker, Cane, Raised Toilet Seat, Shower Seat, Other (Comment) (Grab bars) DME Provider: [facility] Patient's Goal/Discharge Plan Patient expects to be discharged to: Return to [facility] Discharge Planning Actions: Continue to follow, Nursing Home Facility referral indicated [facility] choice: [facility] of [place] discussed, Choice list provided Patient's Choice Rights and [employer] and Collaborative Relationships Disclosed as Indicated for Post-Acute Care: Yes Interdisciplinary Team Engagement: PT/OT Social Work Referral for: Additional Information: IA completed over the phone with son/POA Indy. Patient is confused this admission due to UTI and Anemia. Introduced self and role. Patient is admitted to for encephalopathy. Anemic with UTI on admission, Hgb 7.5 this AM. Currently NPO in case EGD needs done. Possible IV iron transfusions. On IV Rocephin for UTI, chronic Sanz Cath in place. From [facility], plan to return per Indy. [facility] tasked to send return referral [facility]. [employer] to set up return transport. Sees Dr Lenin Chaudhary (PCP) routinely. Has insurance and prescription coverage, currently using [facility] Pharmacy. Indy denies any financial difficulties. Plan to DC back to SNF when medically stable. Kamilah verbalizes understanding and is in agreement with POC. Laure Prabhakar RN [id number] Note* Care Coordination - Laure Prabhakar RN - 06/14/2023 11:36 AM EDT Care Managment Initial Assessment Date: 06/14/2023 Patient Name: Homero Mei : 1945 Patient Information Source of Information: Patient Primary Substance Abuse Counselor Name/Contact Information: Kamilah Moon via telephone Cognition/Language: Confused at baseline Permission given to speak with patient public relations representative/caregiver as indicated: Yes Confirmation of Payer with patient/family: Yes Payer Name: [facility] : No Confirmation of Primary Care Physician: Confirmed PCP Name: Dr Lenin Chaudhary Seen in last 2 years?: Yes Primary Caregiver: ([facility] staff) If assistance needed, confirmed caregiver ready, willing and able to care for patient at discharge:Yes Confirmed with: Yoselin from [facility] via telephone Living Arrangements Current Residence: Number of Floors Number of Entry Steps: Bed/Bath Levels: Facility: Nursing Facility Skilled Facility Name: [facility] Plan to Return: Yes Lives with: (SNF staff and residents) Support Systems: Children, Family members, Friends/neighbors (SNF staff and residents) Activities of Daily Living Ambulation: Assistance (Uses WW) Bathing/Dressing: Assistance Elimination/Continence/Toileting: Assistance Feeding: Independent Who Assists with Activities of Daily Living: [facility] staff Instrumental Activities of Daily Living Prescription Coverage: Yes [facility] Medication Management: ([facility] nurses manage meds) Transportation/Shopping: Assistance Provider Transportation/Shopping Assistance Provider Name: William Transportation Mode: Car Needs Assistance with Transportation at Discharge: Yes ([employer] to set up return transport) Meal Preparation: Assistance Provider Meal Prep Assistance Provider Name: [facility] staff Laundry/Cleaning: Assistance Provider Laundry/Cleaning Assistance Provider Name: [facility] staff Finances/Bill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 Nightly PRN pantoprazole (PROTONIX) 40 mg, Oral, Daily before breakfast, Do not crush, chew, or split. QUEtiapine (SEROQUEL) 25 mg, Oral, 2 times daily senna-docusate sodium (Senokot-S) 8.6-50 MG tablet 1 tablet, Oral, Daily tamsulosin (FLOMAX) 0.4 mg, Oral, Daily CURRENT MEDICATIONS: Current Facility-Administered Medications: acetaminophen (Tylenol) tablet 650 mg, 650 mg, Oral, q6h PRN OR acetaminophen (Tylenol) suppository 650 mg, 650 mg, Rectal, q6h PRN, Kobe Charles MD cefTRIAXone (Rocephin) 1,000 mg in sodium chloride 0.9 % 50 mL IVPB Mini-Bag Plus, 1,000 mg, IntraVENous, q24h, Kobe Charles MD ondansetron ODT (Zofran-ODT) disintegrating tablet 4 mg, 4 mg, Oral, q8h PRN OR ondansetron (Zofran) injection 4 mg, 4 mg, IntraVENous, q6h PRN, Kobe Charles MD pantoprazole in NS (Protonix) 80 mg in 100 mL (0.8 mg/mL) infusion, 8 mg/hr, IntraVENous, Continuous, Kobe Charles MD, Last Rate: 10 mL/hr at 06/13/23 0737, 8 mg/hr at 06/13/23 0737 polyethylene glycol (PEG) 3350 (Miralax) packet 17 g, 17 g, Oral, Daily PRN, Kobe Charles MD sodium chloride 0.9 % infusion, 250 mL/hr, IntraVENous, PRN, Kodak Tejeda DO ALLERGIES: No Known Allergies REVIEW OF SYMPTOMS: Ten-point review of symptoms was noted and reviewed in the chart. PHYSICAL EXAM VS:vBP 130/79 (BP Location: Left arm, Patient Position: Lying) Pulse 64 Temp 37.1C (98.8 F) (Temporal) Resp 16 Ht 6' 1 (1.854 m) Wt 195 lb (88.5 kg) SpO2 98% BMI 25.73 kg/m Body mass index is 25.73 kg/m . GENERAL: Pleasant and NAD, mildly confused. HEENT: Scleral anicteric. Oropharhynx clear with no erythema or exudate. CV: RRR, NL S1/S2, no murmurs. LUNGS: CTA b/l. No W/R/R. ABDOMEN: ,soft, non-tender and non-distended, + BS. No hepatosplenomegaly. No mass felt. No reboundor guarding. No hernia. EXT: No C/C/E. SKIN: No obvious skin lesions or rashes MUSCULOSKELETALl: Strength 5/5 in all exts. NEURO: A&O x 3, No obvious focal deficits. PSYCH: Normal affect and speech. LABS AND IMAGING: Recent blood work and relevant radiologic and endoscopic studies were reviewed and discussed with the patient. Results from last 7 days Lab Units 06/13/23 03106/12/232015 WBC AUTO 10*3/uL 7.8 7.7 HEMOGLOBIN g/dL 7.2* 6.9* HEMATOCRIT % 21.7* 20.8* PLATELETS AUTO 10*3/uL 212 228 Results from last 7 days Lab Units 06/13/23 03106/12/232015 SODIUM mmol/L 137 136 POTASSIUM mmol/L 3.8 3.9 CHLORIDE mmol/L 108* 105 CO2 mmol/L 26 24 BUN mg/dL 21* 20 CREATININE mg/dL 1.07 1.21 CALCIUM mg/dL 8.3* 8.5 PROTEIN TOTAL g/dL 5.3* -- BILIRUBIN TOTAL mg/dL 0.4 -- ALK PHOS U/L 47 -- ALT U/L 18 -- AST U/L 13* -- GLUCOSE mg/dL 107* 117* ASSESSMENT: History of bleeding gastric ulcer with visible vessel: S/p endoscopic hemostasis at [facility]. Remains anemic, but no signs of active GI bleeding. Rule out slow bleed vs. equilibration of hemoglobin. Acute versus subacute blood loss anemia: Hemoglobin stable s/p 1 unit PRBC PLAN: Monitor hemoglobin closely. If continues to drift downward then we will proceed with repeat EGD to further evaluate the gastric ulcer. If no further signs of active bleeding continue PPI twice daily for at least the next 3 weeks. Recommend repeat EGD in 8 to 12 weeks Agree with iron therapy. May benefit from iron infusions while in the hospital Okay with a liquid diet today. Will make n.p.o. after midnight in the event an EGD needs to be done. (Comment: Please note this report has been produced using speech recognition software and may contain errors related to that system including errors in grammar, punctuation, and spelling, as well as words and phrases that may be inappropriate. If there are any questions or concerns please feel freeto contact the dictating provider for clarification.) Electronically signed by Danilo Cody DO 06/13/2023 10:[address] [id number] NoteHistory and Physical [facility] 1945 AGE 77 y.o. YEARS Note Date 06/12/2023 Primary Care Physician:Lenin Chaudhary MD Current Providers as of 06/12/2023 PCP: Lenin Chaudhary MD Referring Provider: not found, starting on SunJun 12, 2023 12:00 AM Attending Provider: Kodak Tejeda DO, starting on SunJun 12, 2023 7:51 PM (Active) Chief Complaint: Altered Mental Status (Patient with recent hospital admission for bleeding ulcer that was repaired then transferred to nursing facility. Hx dementia with increasing confusion. New catheter placed while at hospital (family states due to enlarged prostate). Patient was also started on a new medication. ) HPI: He was recently admitted at [facility] 1 week ago He had egd and wast transfused for a bleeding ulcer per family in the room giving history He had 3 units of blood And he had serafin due to urinary retention and left with a new foleyu He left there on Sunday, and went to [facility] He was receiving therapy at [facility] He was confused and wanted to leave the facility and got up at night wanting to leave the facility He was up going into other residents rooms He does have a history of dementia and recived a workup for this in the past per family, but this behavior was worse than normal for him He provide some history He states he is having dark stools, sometimes he is able to answer questions but does not have a good memory He denies pain He is able to state he has dark stools but he is also taking iron Review of Systems: General: Skin: HEENT: Cardiovascular Fever n Rashes n Difficulty chewing n Chest Pain n Chills n Sores n Appetite Loss n Chest Pressure n Fatigue y Epistaxis n Orthopnea Sweats n Hearing loss Palpitations GI: Tinnitus GERD n Vision quality RESP: Abdominal Pain n : Has sanz in, changed in the ed SOB/GLASS n Nausea n Hematuria n Cough n Vomiting n Dysuria Unknown, but he was pulling at the catheter Productive/Sputum n Hematemesis n NEURO: Has dementia at baseline but is more confused recently Urgency Hemoptysis n Diarrhea n Headaches n Frequency Wheezing n Constipation n Seizures Times at night urinating Heamatochezia n Neuropathy n catheter present MSK: Melena Focal weakness n Hesitancy Focal Numbness n Incontinence Acute joint pain n Dizzy/Vertigo n Redness n Difficulty speaking n Heme/Lymph Swelling n Difficulty walking Lymphadenopathy Myalgia n Ataxia Chronic joint pain n Past Medical History: Diagnosis Date Anemia HLD (hyperlipidemia) htn No past surgical history on file. Recent egd No Known Allergies Medications Prior to Admission: Theses were taken from [facility] sheet Amlodipine 2.5 Atorvastatin 20mg Protonix 40mg daily Quetiapine 25mg mg at night Flomax 0.4mg Iron He was on donepezil but this was stopped as he thought it was causing him to have a hip pain Social History Social History Tobacco Use Smoking status: Unknown Smokeless tobacco: Not on file Substance Use Topics Alcohol use: Not Currently Family History No family history on file. Physical Exam Temp (24hrs), Av.3 ?C (99.2 ?F), Min:37.3 ?C (99.2 ?F), Max:37.3 ?C (99.2 ?F) Body mass index is 25.73 kg/m?.BMI Classification: Overweight (BMI 25.0-29.9) BP 115/64 Pulse 70 Temp 37.3 ?C (99.2 ?F) (Oral) Resp 18 Ht 6' 1 (1.854 m) Wt 195 lb (88.5 kg) SpO2 95% BMI 25.73 kg/m? Pulse Ox: SpO2 Av % Min: 95 % Max: 95 % Supplemental O2: General appearance: He is seen in the ed, with family He is alert to name, he is able to answer a few basic questions HEENT: Normal cephalic, atraumatic without obvious deformity. Pupils equal, round, and reactive to light. Extra ocular muscles intact. Conjunctivae/corneas clear. Neck: Supple, with full range of motion. No jugular venous distention. Trachea midline. No lymphadenopathy. Respiratory: Normal respiratory effort. Clear to auscultation, bilaterally without Rales/Wheezes/Rhonchi. Cardiovascular: Regular rate and rhythm with normal S1/S2 without murmurs, rubs or gallops. Abdomen: Abdomen soft nontender nondistended A new Sanz catheter has been placed with clear urine present Skin: Skin color, texture, turgor normal. No rashes or lesions. He is only alert to himself. But he follows commands well there is no sign of facial droop speech is clear his sensation and strength in his extremities is intact Labs Admission on 06/12/2023 Component Date Value Heart Rate 06/12/2023 72 QRSD Interval 06/12/2023 99 QT Interval 06/12/2023 400 QTC Interval 06/12/2023 439 P [place] 06/12/2023 46 QRS [place] 06/12/2023 -50 T Wave [place] 06/12/2023 -2 AR Interval 06/12/2023 180 SODIUM 06/12/2023 136 POTASSIUM 06/12/2023 3.9 CHLORIDE 06/12/2023 105 CARBON DIOXIDE 06/12/2023 24 UREA NITROGEN 06/12/2023 20 CREATININE 04 (more content not included)...[facility]04-23-2024 Emergency department Note* Rima Reynoso RN - 06/12/2023 11:22 PM EDT Sanz was changed prior to obtaining urine specimen. Rima Reynoso RN 06/12/232321 [id number] Emergency department Note* Rima Reynoso RN - 06/12/2023 11:22 PM EDT Sanz was changed prior to obtaining urine specimen. Rima Reynoso RN 06/12/232321 * Rima Reynoso RN - 06/12/2023 10:[address] Charles at bedside. Rima Reynoso RN 06/12/232206 * Candice Manley RN - 06/12/2023 8:[address] Tejeda notified of hemoglobin 6.9 Candice Manley RN 06/12/232031 * Rima Reynoso RN - 06/12/2023 8:26 PM EDT Patient to CT. Rima Reynoso RN 06/12/232025 * Rima Reynoso RN - 06/12/2023 8:07 PM EDT X ray at bedside. Rima Reynoso RN 06/12/232006 * Rima Reynoso RN - 06/12/2023 7:[address] Bell at bedside. Rima Reynoso RN 06/12/231956 * Kodak Tejeda DO - 06/12/2023 7:48 PM EDT EMERGENCY DEPARTMENT ENCOUNTER Pt Name: Homero Mei Birthdate 1945 Date of evaluation: 06/12/2023 ED Provider: Kodak Tejeda DO CHIEF COMPLAINT Chief Complaint Patient presents with Altered Mental Status Patient with recent hospital admission for bleeding ulcer that was repaired then transferred to nursing facility. Hx dementia with increasing confusion. New catheter placed while at hospital (family states due to enlarged prostate). Patient was also started on a new medication. HISTORY OF PRESENT ILLNESS (Location/Symptom, Timing/Onset, Context/Setting, Quality, Duration, Modifying Factors, Severity) Note limiting factors. I wore appropriate PPE for the entirety of this encounter. HPI Homero Mei is a 77 y.o. who presents to the emergency department with altered mental status. The patient's son is at the bedside helping to provide history. The patient is currently alert andoriented x 4 and about historian. According to the patient's son he saw him this afternoon and noticed the patient was more confused than usual. The patient was last seen by the son about 3 days ago.The patient denies any chest pain, shortness of breath, abdominal pain, headache, vision changes, or focal numbness or weakness. Nursing Notes were reviewed. Limitations to history: Outside historians: REVIEW OF SYSTEMS Review of Systems Respiratory: Negative for shortness of breath. Cardiovascular: Negative for chest pain. Gastrointestinal: Negative for abdominal pain. Pertinent positives and negatives as per HPI PAST MEDICAL HISTORY Past Medical History: Diagnosis Date Anemia HLD (hyperlipidemia) htn SURGICAL HISTORY No past surgical history on file. CURRENT MEDICATIONS Previous Medications No medications on file ALLERGIES Patient has no known allergies. FAMILY HISTORY No family history on file. SOCIAL HISTORY Social History Socioeconomic History Marital status: Single Tobacco Use Smoking status: Unknown Vaping Use Vaping Use: Never used Substance and Sexual Activity Alcohol use: Not Currently Drug use: Never PHYSICAL EXAM ED Triage Vitals Temp Pulse Resp BP -- -- -- -- SpO2 Temp src Heart Rate Source Patient Position -- -- -- -- BP Location FiO2 (%) -- -- Physical Exam Constitutional: General: He is not in acute distress. HENT: Head: Normocephalic and atraumatic. Eyes: Conjunctiva/sclera: Conjunctivae normal. Cardiovascular: Rate and Rhythm: Normal rate and regular rhythm. Pulmonary: Effort: Pulmonary effort is normal. Abdominal: General: Abdomen is flat. Tenderness: There is no abdominal tenderness. Musculoskeletal: General: No deformity. Skin: General: Skin is warm and dry. Neurological: Comments: NIH stroke scale is 0 Psychiatric: Mood and Affect: Mood normal. DIAGNOSTIC RESULTS RADIOLOGY (Per Emergency Physician): Interpretation per the Radiologist below, if available at the time of this note: CT head wo IV contrast Final Result Atrophy and chronic ischemic change. No acute intracranial process. Report Dictated on Electronically Signed By: Shaquille Cox DO Electronically Signed Date/Time: 06/12/2023 8:42 PM EDT XR chest 1 view Final Result 1. Rounded, retrocardiac opacity, with possibilities noted above. Correlation with lateral chest x-ray and/or noncontrast CT chest may help in further evaluation, as indicated. 2. No other acute findings. Report Dictated on Electronically Signed By: Breezy Obrien MD Electronically Signed Date/Time: 06/12/2023 8:16 PM EDT LABS: Labs Reviewed BASIC METABOLIC PANEL - Abnormal Result Value SODIUM 136 POTASSIUM 3.9 CHLORIDE 105 CARBON DIOXIDE 24 UREA NITROGEN 20 CREATININE 1.21 GLUCOSE 117 (*) CALCIUM 8.5 ANION GAP 7 eGFR 62.4 CBC (HEMOGRAM) - Abnormal Auto WBC 7.7 RBC 2.30 (*) Hemoglobin 6.9 (*) Hematocrit 20.8 (*) MCV 90.4 MCH 30.0 MCHC 33.2 RDW 13.8 Platelets 228 MPV 11.0 COMPLETE URINALYSIS - Abnormal Color, Urine Yellow Clarity, Urine Turbid (*) pH, Urine 6.5 Leukocytes, Urine 500 (*) Nitrite, Urine Negative Protein, Urine 100 (*) Glucose, Urine Normal Bilirubin, Urine Negative Ketones, Urine Negative Urobilinogen, Urine Normal Blood, Urine >1.0 (*) RBC, Urine >100 (*) WBC, Urine >100 (*) Squamous Epithelial, Urine 0-2 Bacteria, Urine Few (*) Mucus, Urine Moderate (*) WBC Clumps, Urine Many (*) SPECIFIC GRAVITY OF URINE (NUMERIC) 1.012 TROPONIN I - Normal TROPONIN I <0.012 Narrative: Patients with high levels of Biotin oral intake (ie >5 mg/day) may have falsely decreased Troponin levels. URINE CULTURE COMPLETE URINALYSIS WITH REFLEX TO CULTURE Narrative: The following orders were created for panel order Urinalysis complete with reflex to Culture. Procedure Abnormality Status --------- ------ Complete Urinalysis[[id number]] Abnormal Final result Please view results for these tests on the individual orders. BLOOD TYPE AND SCREEN GEL ABO Grouping A Antibody Screen NEG Rh Type NEG CONFIRMATORY ABO/RH ABO Grouping A Rh Type NEG PREPARE RBC PRODUCT CODE [id number] Unit Number [id number] Unit ABO A Unit RH NEG Crossmatch interpretation COMP Dispense Status Crossmatch Blood Expiration Date [id number] Product Blood Type 0600 Unit Volume 300 All other labs were within normal range or not returned as of this dictation. EMERGENCY DEPARTMENT COURSE and DIFFERENTIAL DIAGNOSIS/MDM: Vitals: Vitals: 06/12/231958 BP: 115/64 Pulse: 70 Resp: 18 Temp: 37.3 C (99.2 F) TempSrc: Oral SpO2: 95% Weight: 88.5 kg (195 lb) Height: 1.854 m (6' 1) Medications sodium chloride 0.9 % infusion (has no administration in time range) cefTRIAXone (Rocephin) 1,000 mg in sodium chloride 0.9 % 50 mL IVPB Mini-Bag Plus (has no administration in time range) pantoprazole (ProtoNix) 80 mg in sodium chloride (PF) 0.9 % 20 mL injection (80 mg IntraVENous Given 06/12/232056) SCREENINGS 8:00 PM - The patient presented with chief complaint of altered mental status. See history and physical exam above. The patient is currently alert and oriented x 3 and in no acute distress. Accordingto the son the last time he was seen normal was 3 days ago. NIH was given 0 neurologic exam is grossly normal. Differential diagnose includes but is not limited to intracranial hemorrhage, intracranial mass, anemia, electrolyte abnormality, arrhythmia, pneumonia, UTI. To aid in management, I performed an independent interpretation of all laboratory tests, EKG, imaging, and other diagnostics ordered. CT head and chest x-ray are unremarkable. Blood counts reveal hemoglobin of 6.9. The patient was recently admitted for upper GI bleed, suspicion that low hemoglobin is contributing to encephalopathy and related to upper GI bleed. The patient was given pantoprazole 80 mg IV. Ordered 1 unit of packedred blood cells. Urinalysis is also grossly positive, Sanz catheter was exchanged for sample collection. The patient admits to increased discomfort with his Sanz catheter therefore he will be treated for catheter associated UTI. He was given Rocephin 1 g IV. The patient will be admitted for further monitoring and evaluation. I discussed with Dr. Charles, who is agreeable. PROCEDURES: Unless otherwise noted below, none Procedures CRITICAL CARE TIME None FINAL IMPRESSION 1. Encephalopathy 2. Upper GI bleed 3. Blood loss anemia 4. Urinary tract infection associated with indwelling urethral catheter, initial encounter ([facility]) DISPOSITION Admit 06/12/2023 09:43:43 PM PATIENT REFERRED TO: No follow-up provider specified. DISCHARGE MEDICATIONS: New Prescriptions No medications on file (Comment: Please note this report has been produced using speech recognition software and may contain errors related to that system including errors in grammar, punctuation, and spelling, as well as words and phrases that may be inappropriate. If there are any questions or concerns please feel freeto contact the dictating provider for clarification.) Kodak Tejeda DO (electronically signed) Emergency Medicine Provider Kodak Tejeda DO 06/12/232209 documented in this [facility]SReg[facility] [id number] Emergency department Note* Rima Reynoso RN - 06/12/2023 10:[address] Charles at bedside. Rima Reynoso RN 06/12/232206 [id number] History and physical note* Kobe Charles MD - 06/12/2023 9:36 PM EDT Images from the original note were not included. History and Physical [facility] Homero Mei : 1945 AGE 77 y.o. YEARS Note Date 06/12/2023 Primary Care Physician:Lenin Chaudhary MD Current Providers as of 06/12/2023 PCP: Lenin Chaudhary MD Referring Provider: not found, starting on SunJun 12, 2023 12:00 AM Attending Provider: Kodak Tejeda DO, starting on SunJun 12, 2023 7:51 PM (Active) Chief Complaint: Altered Mental Status (Patient with recent hospital admission for bleeding ulcer that was repaired then transferred to nursing facility. Hx dementia with increasing confusion. New catheter placed while at hospital (family states due to enlarged prostate). Patient was also started on a new medication. ) HPI: He was recently admitted at [facility] 1 week ago He had egd and wast transfused for a bleeding ulcer per family in the room giving history He had 3 units of blood And he had serafin due to urinary retention and left with a new foleyu He left there on Sunday, and went to [facility] He was receiving therapy at [facility] He was confused and wanted to leave the facility and got up at night wanting to leave the facility He was up going into other residents rooms He does have a history of dementia and recived a workup for this in the past per family, but this behavior was worse than normal for him He provide some history He states he is having dark stools, sometimes he is able to answer questions but does not have a good memory He denies pain He is able to state he has dark stools but he is also taking iron Review of Systems: General: Skin: HEENT: Cardiovascular Fever n Rashes n Difficulty chewing n Chest Pain n Chills n Sores n Appetite Loss n Chest Pressure n Fatigue y Epistaxis n Orthopnea Sweats n Hearing loss Palpitations GI: Tinnitus GERD n Vision quality RESP: Abdominal Pain n : Has sanz in, changed in the ed SOB/GLASS n Nausea n Hematuria n Cough n Vomiting n Dysuria Unknown, but he was pulling at the catheter Productive/Sputum n Hematemesis n NEURO: Has dementia at baseline but is more confused recently Urgency Hemoptysis n Diarrhea n Headaches n Frequency Wheezing n Constipation n Seizures Times at night urinating Heamatochezia n Neuropathy n catheter present MSK: Melena Focal weakness n Hesitancy Focal Numbness n Incontinence Acute joint pain n Dizzy/Vertigo n Redness n Difficulty speaking n Heme/Lymph Swelling n Difficulty walking Lymphadenopathy Myalgia n Ataxia Chronic joint pain n Past Medical History: Diagnosis Date Anemia HLD (hyperlipidemia) htn No past surgical history on file. Recent egd No Known Allergies Medications Prior to Admission: Theses were taken from ecf sheet Amlodipine 2.5 Atorvastatin 20mg Protonix 40mg daily Quetiapine 25mg mg at night Flomax 0.4mg Iron He was on donepezil but this was stopped as he thought it was causing him to have a hip pain Social History Social History Tobacco Use Smoking status: Unknown Smokeless tobacco: Not on file Substance Use Topics Alcohol use: Not Currently Family History No family history on file. Physical Exam Temp (24hrs), Av.3 C (99.2 F), Min:37.3 C (99.2 F), Max:37.3 C (99.2 F) Body mass index is 25.73 kg/m .BMI Classification: Overweight (BMI 25.0-29.9) BP 115/64 Pulse 70 Temp 37.3 C (99.2 F) (Oral) Resp 18 Ht 6' 1 (1.854 m) Wt 195 lb (88.5kg) SpO2 95% BMI 25.73 kg/m Pulse Ox: SpO2 Av % Min: 95 % Max: 95 % Supplemental O2: General appearance: He is seen in the ed, with family He is alert to name, he is able to answer a few basic questions HEENT: Normal cephalic, atraumatic without obvious deformity. Pupils equal, round, and reactive to light. Extra ocular muscles intact. Conjunctivae/corneas clear. Neck: Supple, with full range of motion. No jugular venous distention. Trachea midline. No lymphadenopathy. Respiratory: Normal respiratory effort. Clear to auscultation, bilaterally without Rales/Wheezes/Rhonchi. Cardiovascular: Regular rate and rhythm with normal S1/S2 without murmurs, rubs or gallops. Abdomen: Abdomen soft nontender nondistended A new Sanz catheter has been placed with clear urine present Skin: Skin color, texture, turgor normal. No rashes or lesions. He is only alert to himself. But he follows commands well there is no sign of facial droop speech is clear his sensation and strength in his extremities is intact Labs Admission on 06/12/2023 Component Date Value Heart Rate 06/12/2023 72 QRSD Interval 06/12/2023 99 QT Interval 06/12/2023 400 QTC Interval 06/12/2023 439 P [place] 06/12/2023 46 QRS [place] 06/12/2023 -50 T Wave [place] 06/12/2023 -2 AR Interval 06/12/2023 180 SODIUM 06/12/2023 136 POTASSIUM 06/12/2023 3.9 CHLORIDE 06/12/2023 105 CARBON DIOXIDE 06/12/2023 24 UREA NITROGEN 06/12/2023 20 CREATININE 06/12/2023 1.21 GLUCOSE 06/12/2023 117 (H) CALCIUM 06/12/2023 8.5 ANION GAP 06/12/2023 7 eGFR 06/12/2023 62.4 Auto WBC 06/12/2023 7.7 RBC 06/12/2023 2.30 (L) Hemoglobin 06/12/2023 6.9 (LL) Hematocrit 06/12/2023 20.8 (L) MCV 06/12/2023 90.4 MCH 06/12/2023 30.0 MCHC 06/12/2023 33.2 RDW 06/12/2023 13.8 Platelets 06/12/2023 228 MPV 06/12/2023 11.0 TROPONIN I 06/12/2023 <0.012 EKG Encounter Date: 06/12/23 ECG 12 lead Result Value Heart Rate 72 QRSD Interval 99 QT Interval 400 QTC Interval 439 P [place] 46 QRS [place] -50 T Wave [place] -2 AR Interval 180 Impression Sinus rhythm Left anterior fascicular block Borderline T abnormalities, inferior leads Assessment/Plan and Medical Decision Making 77-year-old presents with confusion from ECF Likely combination of underlying dementia plus urinary tract infection and anemia see below Urinary retention Now with sanz catheter He was reportedly pulling on the catheter in the shelter Urinalysis here was taken after catheter change It does have many white blood cells positive leukocyte Estrace I will currently treat with Rocephin which was started in the emergency room He may have had symptoms of pulling at the catheter From my understanding this is his first placement of a Sanz catheter. Was placed in [facility] He does have follow-up for urology planned Appears to been started on Flomax Could consider removing the catheter altogether when he is in the hospital and trying a voiding trial Anemia He was recently at [facility] was reported to have an EGD an ulcer that may be was repaired according to family's verbal information. [facility] his hemoglobin is 6.9 which is lower He is having dark stools. He denies any abdominal pain he is on iron He did have anemia workup at [facility] these records are not available Right now he is being transfused since he is below 7 he has been placed on IV PPI Will trend his H&H and follow-up with GI I will avoid all anticoagulation Dementia He was on denepizil But he stopped taking it due to pain in hip He now is on seroquel at night Reportedly had workup for dementia by neurology at outside hospital Hypertension I resumed his amlodipine 2.5 mg at home Hyperlipidemia I will continue his atorvastatin 20 mg daily Reduce diet for now Geriatrics consult at family's request I discussed the need for admission with the emergency provider. -DVT prophylaxis: [] Lovenox [] Heparin [] SCDs [x] Encourage ambulation [] Already on Anticoagulation [x] Pharmocologic prophylaxis on hold to due risk bleed/procedure [] Low risk, ambulatory [] Both pharmacologic and mechanical contraindicated 06/12/2023 Homero Mei [id number] Any scheduled follow up appointments No future appointments. Extended Emergency Contact Information Primary Emergency Contact: indy mei Mobile Relation: Son Band Singer needed? No Secondary Emergency Contact: william mei Mobile Relation: Son Band Singer needed? No Portions of this note may be electronically transcribed. Please forward a copy of this H&P to the primary care physician. Her last was tell me about that what is I cannot really see the records that good so just cannot tell me about that admission I am Dr. [facility] just cannot tell me about that admission well [facility] [employer] Work Phone: [phone] History and physical note* Kobe Charles MD - 06/12/2023 9:36 PM EDT Images from the original note were not included. History and Physical [facility] Homero Mei : 1945 AGE 77 y.o. YEARS Note Date 06/12/2023 Primary Care Physician:Lenin Chaudhary MD Current Providers as of 06/12/2023 PCP: Lenin Chaudhary MD Referring Provider: not found, starting on SunJun 12, 2023 12:00 AM Attending Provider: Kodak Tejeda DO, starting on SunJun 12, 2023 7:51 PM (Active) Chief Complaint: Altered Mental Status (Patient with recent hospital admission for bleeding ulcer that was repaired then transferred to nursing facility. Hx dementia with increasing confusion. New catheter placed while at hospital (family states due to enlarged prostate). Patient was also started on a new medication. ) HPI: He was recently admitted at [facility] 1 week ago He had egd and wast transfused for a bleeding ulcer per family in the room giving history He had 3 units of blood And he had serafin due to urinary retention and left with a new foleyu He left there on Sunday, and went to [facility] He was receiving therapy at [facility] He was confused and wanted to leave the facility and got up at night wanting to leave the facility He was up going into other residents rooms He does have a history of dementia and recived a workup for this in the past per family, but this behavior was worse than normal for him He provide some history He states he is having dark stools, sometimes he is able to answer questions but does not have a good memory He denies pain He is able to state he has dark stools but he is also taking iron Review of Systems: General: Skin: HEENT: Cardiovascular Fever n Rashes n Difficulty chewing n Chest Pain n Chills n Sores n Appetite Loss n Chest Pressure n Fatigue y Epistaxis n Orthopnea Sweats n Hearing loss Palpitations GI: Tinnitus GERD n Vision quality RESP: Abdominal Pain n : Has sanz in, changed in the ed SOB/GLASS n Nausea n Hematuria n Cough n Vomiting n Dysuria Unknown, but he was pulling at the catheter Productive/Sputum n Hematemesis n NEURO: Has dementia at baseline but is more confused recently Urgency Hemoptysis n Diarrhea n Headaches n Frequency Wheezing n Constipation n Seizures Times at night urinating Heamatochezia n Neuropathy n catheter present MSK: Melena Focal weakness n Hesitancy Focal Numbness n Incontinence Acute joint pain n Dizzy/Vertigo n Redness n Difficulty speaking n Heme/Lymph Swelling n Difficulty walking Lymphadenopathy Myalgia n Ataxia Chronic joint pain n Past Medical History: Diagnosis Date Anemia HLD (hyperlipidemia) htn No past surgical history on file. Recent egd No Known Allergies Medications Prior to Admission: Theses were taken from ecf sheet Amlodipine 2.5 Atorvastatin 20mg Protonix 40mg daily Quetiapine 25mg mg at night Flomax 0.4mg Iron He was on donepezil but this was stopped as he thought it was causing him to have a hip pain Social History Social History Tobacco Use Smoking status: Unknown Smokeless tobacco: Not on file Substance Use Topics Alcohol use: Not Currently Family History No family history on file. Physical Exam Temp (24hrs), Av.3 C (99.2 F), Min:37.3 C (99.2 F), Max:37.3 C (99.2 F) Body mass index is 25.73 kg/m .BMI Classification: Overweight (BMI 25.0-29.9) BP 115/64 Pulse 70 Temp 37.3 C (99.2 F) (Oral) Resp 18 Ht 6' 1 (1.854 m) Wt 195 lb (88.5kg) SpO2 95% BMI 25.73 kg/m Pulse Ox: SpO2 Av % Min: 95 % Max: 95 % Supplemental O2: General appearance: He is seen in the ed, with family He is alert to name, he is able to answer a few basic questions HEENT: Normal cephalic, atraumatic without obvious deformity. Pupils equal, round, and reactive to light. Extra ocular muscles intact. Conjunctivae/corneas clear. Neck: Supple, with full range of motion. No jugular venous distention. Trachea midline. No lymphadenopathy. Respiratory: Normal respiratory effort. Clear to auscultation, bilaterally without Rales/Wheezes/Rhonchi. Cardiovascular: Regular rate and rhythm with normal S1/S2 without murmurs, rubs or gallops. Abdomen: Abdomen soft nontender nondistended A new Sanz catheter has been placed with clear urine present Skin: Skin color, texture, turgor normal. No rashes or lesions. He is only alert to himself. But he follows commands well there is no sign of facial droop speech is clear his sensation and strength in his extremities is intact Labs Admission on 06/12/2023 Component Date Value Heart Rate 06/12/2023 72 QRSD Interval 06/12/2023 99 QT Interval 06/12/2023 400 QTC Interval 06/12/2023 439 P [place] 06/12/2023 46 QRS [place] 06/12/2023 -50 T Wave [place] 06/12/2023 -2 AR Interval 06/12/2023 180 SODIUM 06/12/2023 136 POTASSIUM 06/12/2023 3.9 CHLORIDE 06/12/2023 105 CARBON DIOXIDE 06/12/2023 24 UREA NITROGEN 06/12/2023 20 CREATININE 06/12/2023 1.21 GLUCOSE 06/12/2023 117 (H) CALCIUM 06/12/2023 8.5 ANION GAP 06/12/2023 7 eGFR 06/12/2023 62.4 Auto WBC 06/12/2023 7.7 RBC 06/12/2023 2.30 (L) Hemoglobin 06/12/2023 6.9 (LL) Hematocrit 06/12/2023 20.8 (L) MCV 06/12/2023 90.4 MCH 06/12/2023 30.0 MCHC 06/12/2023 33.2 RDW 06/12/2023 13.8 Platelets 06/12/2023 228 MPV 06/12/2023 11.0 TROPONIN I 06/12/2023 <0.012 EKG Encounter Date: 06/12/23 ECG 12 lead Result Value Heart Rate 72 QRSD Interval 99 QT Interval 400 QTC Interval 439 P [place] 46 QRS [place] -50 T Wave [place] -2 AR Interval 180 Impression Sinus rhythm Left anterior fascicular block Borderline T abnormalities, inferior leads Assessment/Plan and Medical Decision Making 77-year-old presents with confusion from ECF Likely combination of underlying dementia plus urinary tract infection and anemia see below Urinary retention Now with sanz catheter He was reportedly pulling on the catheter in the shelter Urinalysis here was taken after catheter change It does have many white blood cells positive leukocyte Estrace I will currently treat with Rocephin which was started in the emergency room He may have had symptoms of pulling at the catheter From my understanding this is his first placement of a Sanz catheter. Was placed in [facility] He does have follow-up for urology planned Appears to been started on Flomax Could consider removing the catheter altogether when he is in the hospital and trying a voiding trial Anemia He was recently at [facility] was reported to have an EGD an ulcer that may be was repaired according to family's verbal information. Family states hemoglobin 7.7 at [facility] his hemoglobin is 6.9 which is lower He is having dark stools. He denies any abdominal pain he is on iron He did have anemia workup at [facility] these records are not available Right now he is being transfused since he is below 7 he has been placed on IV PPI Will trend his H&H and follow-up with GI I will avoid all anticoagulation Dementia He was on denepizil But he stopped taking it due to pain in hip He now is on seroquel at night Reportedly had workup for dementia by neurology at outside hospital Hypertension I resumed his amlodipine 2.5 mg at home Hyperlipidemia I will continue his atorvastatin 20 mg daily Reduce diet for now Geriatrics consult at family's request I discussed the need for admission with the emergency provider. -DVT prophylaxis: [] Lovenox [] Heparin [] SCDs [x] Encourage ambulation [] Already on Anticoagulation [x] Pharmocologic prophylaxis on hold to due risk bleed/procedure [] Low risk, ambulatory [] Both pharmacologic and mechanical contraindicated 06/12/2023 Homero Mei [id number] Any scheduled follow up appointments No future appointments. Extended Emergency Contact Information Primary Emergency Contact: indy mei Mobile Relation: Son Band Singer needed? No Secondary Emergency Contact: william mei Mobile Relation: Son Band Singer needed? No Portions of this note may be electronically transcribed. Please forward a copy of this H&P to the primary care physician. Her last was tell me about that what is I cannot really see the records that good so just cannot tell me about that admission I am Dr. Gómez [facility] just cannot tell me about that admission well documented in this [address]23-2024 Emergency department Note* Candice Manley RN - 06/12/2023 8:[address] Tejeda notified of hemoglobin 6.9 Candice Manley RN 06/12/232031 [id number] Emergency department Note* Rima Reynoso RN - 06/12/2023 8:26 PM EDT Patient to CT. Rima Reynoso RN 06/12/232025 [address]Fwgxai81-74-2478 Emergency department Note* Rima Reynoso RN - 06/12/2023 8:07 PM EDT X ray at bedside. Rima Reynoso RN 06/12/232006 [id number] Emergency department Note* Rima Reynoso RN - 06/12/2023 7:[address] Bell at bedside. Rima Reynoso RN 06/12/231956 [id number] Physician Emergency department Note* Kodak Tejeda DO - 06/12/2023 7:48 PM EDT EMERGENCY DEPARTMENT ENCOUNTER Pt Name: Homero Mei Birthdate 1945 Date of evaluation: 06/12/2023 ED Provider: Kodak Tejeda DO CHIEF COMPLAINT Chief Complaint Patient presents with Altered Mental Status Patient with recent hospital admission for bleeding ulcer that was repaired then transferred to nursing facility. Hx dementia with increasing confusion. New catheter placed while at hospital (family states due to enlarged prostate). Patient was also started on a new medication. HISTORY OF PRESENT ILLNESS (Location/Symptom, Timing/Onset, Context/Setting, Quality, Duration, Modifying Factors, Severity) Note limiting factors. I wore appropriate PPE for the entirety of this encounter. HPI Homero Mei is a 77 y.o. who presents to the emergency department with altered mental status. The patient's son is at the bedside helping to provide history. The patient is currently alert andoriented x 4 and about historian. According to the patient's son he saw him this afternoon and noticed the patient was more confused than usual. The patient was last seen by the son about 3 days ago.The patient denies any chest pain, shortness of breath, abdominal pain, headache, vision changes, or focal numbness or weakness. Nursing Notes were reviewed. Limitations to history: Outside historians: REVIEW OF SYSTEMS Review of Systems Respiratory: Negative for shortness of breath. Cardiovascular: Negative for chest pain. Gastrointestinal: Negative for abdominal pain. Pertinent positives and negatives as per HPI PAST MEDICAL HISTORY Past Medical History: Diagnosis Date Anemia HLD (hyperlipidemia) htn SURGICAL HISTORY No past surgical history on file. CURRENT MEDICATIONS Previous Medications No medications on file ALLERGIES Patient has no known allergies. FAMILY HISTORY No family history on file. SOCIAL HISTORY Social History Socioeconomic History Marital status: Single Tobacco Use Smoking status: Unknown Vaping Use Vaping Use: Never used Substance and Sexual Activity Alcohol use: Not Currently Drug use: Never PHYSICAL EXAM ED Triage Vitals Temp Pulse Resp BP -- -- -- -- SpO2 Temp src Heart Rate Source Patient Position -- -- -- -- BP Location FiO2 (%) -- -- Physical Exam Constitutional: General: He is not in acute distress. HENT: Head: Normocephalic and atraumatic. Eyes: Conjunctiva/sclera: Conjunctivae normal. Cardiovascular: Rate and Rhythm: Normal rate and regular rhythm. Pulmonary: Effort: Pulmonary effort is normal. Abdominal: General: Abdomen is flat. Tenderness: There is no abdominal tenderness. Musculoskeletal: General: No deformity. Skin: General: Skin is warm and dry. Neurological: Comments: NIH stroke scale is 0 Psychiatric: Mood and Affect: Mood normal. DIAGNOSTIC RESULTS RADIOLOGY (Per Emergency Physician): Interpretation per the Radiologist below, if available at the time of this note: CT head wo IV contrast Final Result Atrophy and chronic ischemic change. No acute intracranial process. Report Dictated on Electronically Signed By: Shaquille Cox DO Electronically Signed Date/Time: 06/12/2023 8:42 PM EDT XR chest 1 view Final Result 1. Rounded, retrocardiac opacity, with possibilities noted above. Correlation with lateral chest x-ray and/or noncontrast CT chest may help in further evaluation, as indicated. 2. No other acute findings. Report Dictated on Electronically Signed By: Breezy Obrien MD Electronically Signed Date/Time: 06/12/2023 8:16 PM EDT LABS: Labs Reviewed BASIC METABOLIC PANEL - Abnormal Result Value SODIUM 136 POTASSIUM 3.9 CHLORIDE 105 CARBON DIOXIDE 24 UREA NITROGEN 20 CREATININE 1.21 GLUCOSE 117 (*) CALCIUM 8.5 ANION GAP 7 eGFR 62.4 CBC (HEMOGRAM) - Abnormal Auto WBC 7.7 RBC 2.30 (*) Hemoglobin 6.9 (*) Hematocrit 20.8 (*) MCV 90.4 MCH 30.0 MCHC 33.2 RDW 13.8 Platelets 228 MPV 11.0 COMPLETE URINALYSIS - Abnormal Color, Urine Yellow Clarity, Urine Turbid (*) pH, Urine 6.5 Leukocytes, Urine 500 (*) Nitrite, Urine Negative Protein, Urine 100 (*) Glucose, Urine Normal Bilirubin, Urine Negative Ketones, Urine Negative Urobilinogen, Urine Normal Blood, Urine >1.0 (*) RBC, Urine >100 (*) WBC, Urine >100 (*) Squamous Epithelial, Urine 0-2 Bacteria, Urine Few (*) Mucus, Urine Moderate (*) WBC Clumps, Urine Many (*) SPECIFIC GRAVITY OF URINE (NUMERIC) 1.012 TROPONIN I - Normal TROPONIN I <0.012 Narrative: Patients with high levels of Biotin oral intake (ie >5 mg/day) may have falsely decreased Troponin levels. URINE CULTURE COMPLETE URINALYSIS WITH REFLEX TO CULTURE Narrative: The following orders were created for panel order Urinalysis complete with reflex to Culture. Procedure Abnormality Status --------- ------ Complete Urinalysis[[id number]] Abnormal Final result Please view results for these tests on the individual orders. BLOOD TYPE AND SCREEN GEL ABO Grouping A Antibody Screen NEG Rh Type NEG CONFIRMATORY ABO/RH ABO Grouping A Rh Type NEG PREPARE RBC PRODUCT CODE [id number] Unit Number [id number] Unit ABO A Unit RH NEG Crossmatch interpretation COMP Dispense Status Crossmatch Blood Expiration Date [id number] Product Blood Type 0600 Unit Volume 300 All other labs were within normal range or not returned as of this dictation. EMERGENCY DEPARTMENT COURSE and DIFFERENTIAL DIAGNOSIS/MDM: Vitals: Vitals: 06/12/231958 BP: 115/64 Pulse: 70 Resp: 18 Temp: 37.3 C (99.2 F) TempSrc: Oral SpO2: 95% Weight: 88.5 kg (195 lb) Height: 1.854 m (6' 1) Medications sodium chloride 0.9 % infusion (has no administration in time range) cefTRIAXone (Rocephin) 1,000 mg in sodium chloride 0.9 % 50 mL IVPB Mini-Bag Plus (has no administration in time range) pantoprazole (ProtoNix) 80 mg in sodium chloride (PF) 0.9 % 20 mL injection (80 mg IntraVENous Given 06/12/232056) SCREENINGS 8:00 PM - The patient presented with chief complaint of altered mental status. See history and physical exam above. The patient is currently alert and oriented x 3 and in no acute distress. Accordingto the son the last time he was seen normal was 3 days ago. NIH was given 0 neurologic exam is grossly normal. Differential diagnose includes but is not limited to intracranial hemorrhage, intracranial mass, anemia, electrolyte abnormality, arrhythmia, pneumonia, UTI. To aid in management, I performed an independent interpretation of all laboratory tests, EKG, imaging, and other diagnostics ordered. CT head and chest x-ray are unremarkable. Blood counts reveal hemoglobin of 6.9. The patient was recently admitted for upper GI bleed, suspicion that low hemoglobin is contributing to encephalopathy and related to upper GI bleed. The patient was given pantoprazole 80 mg IV. Ordered 1 unit of packedred blood cells. Urinalysis is also grossly positive, Sanz catheter was exchanged for sample collection. The patient admits to increased discomfort with his Sanz catheter therefore he will be treated for catheter associated UTI. He was given Rocephin 1 g IV. The patient will be admitted for further monitoring and evaluation. I discussed with Dr. Charles, who is agreeable. PROCEDURES: Unless otherwise noted below, none Procedures CRITICAL CARE TIME None FINAL IMPRESSION 1. Encephalopathy 2. Upper GI bleed 3. Blood loss anemia 4. Urinary tract infection associated with indwelling urethral catheter, initial encounter ([facility]) DISPOSITION Admit 06/12/2023 09:43:43 PM PATIENT REFERRED TO: No follow-up provider specified. DISCHARGE MEDICATIONS: New Prescriptions No medications on file (Comment: Please note this report has been produced using speech recognition software and may contain errors related to that system including errors in grammar, punctuation, and spelling, as well as words and phrases that may be inappropriate. If there are any questions or concerns please feel freeto contact the dictating provider for clarification.) Kodak Tejeda DO (electronically signed) Emergency Medicine Provider Kodak Tejeda DO 06/12/[address] [id number] Discharge summary Author William Romeo [facility] June 08, 2023 3:50pm Note Date/Time June 08, 2023 3:3 1pm [facility] Medical Records Department [address] [place] [address] Discharge Summary 06/08/23 1530 MR#: [id number] Acct: [id number] Name: HOMERO MEI Rep #:[id number] : 1945 77 From: William Romeo DO PCP: Dr. Moiz Chaudhary MD Status :ADM IN Location: [facility] BG624-2 Providers Date of Admission: 06/04/23 Primary Care Physician: Dr. Moiz Chaudhary MD Consultations 06/04/23 23:29 Consult: Gastroenterology Routine Consulting Provider: [facility] Reason for Consult: UGIB EMERGENT Consult: No MD Notified: Yes Date Notified: 06/04/23 Time Notified: 22:36 Method of Notification: ED Physician Initiated Reason For Visit: UGIB Diagnosis Discharge Diagnosis (1) Upper GI bleed: Status: Acute Code(s): K92.2 - Gastrointestinal hemorrhage, unspecified Plan Acute blood loss anemia * currently stable * secondary to upper GI bleed * Hemoglobin 6.3 improved to 7.4 after 2 units of blood ordered in the ER. Currently stable. * Transfused 1 unit PRBC on 06/05. Hg improved. * Started every other day ferrous sulfate GI bleed * Change pantoprazole to 40 BID. * EGD on 06/04: oozing gastric ulcer with visible vessel that was jected and heater probe. * Does not take chronic anticoagulants or antiplatelets and according to family he only took Aleve/ibuprofen yesterday for the first time for his hip pain SERAFIN * resolved * Monitor * May be post obstructive. Urinary retention * catheter dc'd 06/04, however, today, pt only had scant urine output. Bladder scanned for +1200 cc urine. * replace sanz. Start tamsulosin * Follow up with as outpt. * Pt at high-risk of self-discontinuation of sanz, however, with his pronounced urinary retention, would pose a greater risk with potential of SERAFIN, hydronephrosis and agitation. Chronic conditions: * Essential HTN/HLD: Blood pressure stable, Can resume his home blood pressure medications, will hold his lisinopril and hydrochlorothiazide secondary to his SERAFIN, Continue with Lipitor * Dementia? Diagnosed about 1 year ago. Reorientation as able. Family interested to see if he could go to SNF before going home. DVT: SCDs Disposition: TBD. For discharge. Waiting on authorization for long term facility. Medications at Discharge Home Medications atorvastatin 10 mg tablet 20 mg PO DAILY 03/17/20 amlodipine 2.5 mg tablet 2.5 mg PO DAILY 06/04/23 donepezil 5 mg tablet 5 mg PO DAILY 06/04/23 ferrous sulfate 325 mg (65 mg iron) tablet (FeroSul) 325 mg PO Q48 #0 tabs 06/08/23 melatonin 3 mg tablet 3 mg PO QHS PRN Insomnia #0 tabs 06/08/23 pantoprazole 40 mg tablet,delayed release (Protonix) 40 mg PO BID 10 days #20 tabs 06/08/23 quetiapine 25 mg tablet 25 mg PO DINNER #0 tabs 06/08/23 tamsulosin 0.4 mg capsule 0.4 mg PO DAILY@1730 #0 caps 06/08/23 Hospital Course Operations None Procedures EGD Summary of Care Provided Hospital Course: Patient presents with increased confusion and was found to be anemic. Patient was transfused 2 units of packed red blood cells. Patient was noted to have bleeding gastric ulcer with visible vessel that was injected and treated with heater probe. Patient's hemoglobin did dip down again which he required anotherunit so he is has remained stable since then. Complicating his situation is he despite his appearance has very pronounced dementia. He appears well at times but then and at times becomes delirious and does require some reorientation. Family with his son's been very involved but they are not adequately able to care for him at home. Patient was unstable. Patient was approved and will be going to a long term facility. Weight / BMI Weight Weight: 90 kg Body Mass Index (BMI) 26.2 ABG / Lab / Microbiology Data 06/08/23 07:00 06/08/23 07:00 Laboratory: Laboratory Results - last 24 hr 06/08/23 07:00: WBC 6.7, RBC 2.54 L, Hgb 7.7 L, Hct 22.9 L, MCV 90.2, MCH 30.3, MCHC 33.6, RDW Std Deviation 44.5 H, RDW Coeff of Eugene 13.8, Plt Count 155, MPV 11.5, Immature Gran % (Auto) 0.400, Neut % (Auto) 71.1 H, Lymph % (Auto) 17.4 L,Buchanan % (Auto) 7.3, Eos % (Auto) 3.7, Baso % (Auto) 0.1, Absolute Neuts (auto) 4.7, Absolute Lymphs (auto) 1.16, Nucleated RBC % 0, Sodium 142, Potassium 3.7, Chloride 109 H, Carbon Dioxide 28.0, Anion Gap 5, BUN 15, Creatinine 0.88, EstimCreat Clear Calc 81.97, Est GFR (MDRD) Af Amer 109, Est GFR (MDRD) Non-Af 90, BUN/Creatinine Ratio 17.1, Glucose 119 H, Calcium 8.3 L Microbiology: Microbiology 06/04/23 21:30 Stool Stool Occult Blood (ARUN) - Final Occult Blood Positive Meaningful Use Info Meaningful Use Meaningful Use Diagnoses (Choose all that apply): None applicable Ischemic Stroke Statin Dosing Therapy Reference: STATIN DOSE THERAPY REFERENCE: * Patients > 75 years receive moderate or high dose statin therapy. * Patients 75 years or YOUNGER should receive HIGH intensity statin dose unless contraindicated. You will be required to document reason for non-treatment if statin daily dose does not meet guidelines. HIGH DOSE STATIN THERAPY DAILY Atorvastatin > than or = to 40 mg Rosuvastatin > than or = to 20 mg Amlodipine + Atorvastatin > than or = to 2.5/40 mg Ezetimibe + Simvastatin 10/80 mg Simvastatin 80mg Discharge Plan Admission Admit Date/Time: 06/04/23 22:34 Primary Reason for Your Visit: GI bleed. Attending Provider: William Romeo Primary Care Provider: Moiz Chaudhary Consulting Providers: Matthew Snow Discharge Orders/Prescriptions Prescriptions: New ferrous sulfate [FeroSul] 325 mg (65 mg iron) Tablet 325 mg PO Q48 Qty: 0 0RF quetiapine 25 mg Tablet 25 mg PO DINNER Qty: 0 0RF melatonin 3 mg Tablet 3 mg PO QHS PRN (Reason: Insomnia) Qty: 0 0RF tamsulosin 0.4 mg Capsule 0.4 mg PO DAILY@1730 Qty: 0 0RF pantoprazole [Protonix] 40 mg tablet,delayed release (DR/EC) 40 mg PO BID 10 Days Qty: 20 0RF Continued atorvastatin 10 mg tablet 20 mg PO DAILY donepezil 5 mg tablet 5 mg PO DAILY amlodipine 2.5 mg tablet 2.5 mg PO DAILY Discontinued hydrochlorothiazide 12.5 mg capsule 25 mg PO DAILY lisinopril 40 mg tablet 40 mg PO DAILY Referrals / Follow Up: [facility] [Provider Group] - Within 3 Months Moiz Chaudhary MD [Primary Care Provider] - Within 2 Weeks Ector Eric MD [Med Staff - Active Staff] - Within 1 Month Disposition Disposition (needs filled in before D/C Order can be placed): Nursing Home Facility Charges/Coding Visit Charges Inpatient E&M: 56534 Disch Hosp 06/08/23 8668 <Electronically signed by William Romeo DO> Cosigner Signature (if applicable): CC: Dr. Moiz Chaudhary MD; Dr. William Romeo DO~ Signed [facility] Work Phone: 1(445) 144-563004-19-2024 Miscellaneous Notes* Telephone Encounter - Arlyn Scott LPN - 06/08/2023 3:33 PM EDT Noted patient had recently been admitted to [facility] on 06/04/23 for GI bleed and was being discharged today to SNF. Patient has had an appt scheduled for 06/11/23 for hip pain. Contacted patient's son, Indy, and asked if patient would be coming in for 06/11/23 appt. He Asked if we could cancel the apptfor now. Advised that we could and advised him that we recommend a Hosp/SNF discharge follow up for40 min and likely can address hip pain at that visit as well if still an issue. Indy agreeable and will call back to schedule appt when they know more. Arlyn Scott LPN [facility] Discharge summary Author William Romeo [facility] June 08, 2023 12:07pm Note Date/Time June 08, 2023 11: 59am [facility] Medical Records Department [address] [place] [address] Transfer to Extended Care MR#: [id number] Acct: [id number] Name: HOMERO MEI Rep #:[id number] : 1945 77 From: William Romeo DO PCP: Dr. Moiz Chaudhary MD Status :ADM IN Certification of patient admission REQUIRED AT TIME OF ADMISSION. I CERTIFY THAT POST-HOSPITAL ECF SERVICES ARE REQUIRED TO BE GIVEN ON AN IN-PATIENT BASIS BECAUSE OF THE ABOVE NAMED PATIENT'S NEED FOR SKILLED NURSING CARE ON A CONTINUING BASIS FOR THE CONDITION(S) FOR WHICH HE/SHE WAS RECEIVING IN-PATIENT HOSPITAL SERVICES PRIOR TO HIS/HER TRANSFER TO THE ECF. 06/08/23 1207<Electronically signed by William Romeo DO> Diet Diet Order/Speech Therapy: 06/07/23 10:55 Diet: Regular - General Is pt able to select menu?: Yes Routine Orders/Code Status Change Sanz Catheter: PRN Problem/Diagnosis (1) Upper GI bleed: Status: Acute Code(s): K92.2 - Gastrointestinal hemorrhage, unspecified Plan Acute blood loss anemia * currently stable * secondary to upper GI bleed * Hemoglobin 6.3 improved to 7.4 after 2 units of blood ordered in the ER. Currently stable. * Transfused 1 unit PRBC on 06/05. Hg improved. * Started every other day ferrous sulfate GI bleed * Change pantoprazole to 40 BID. * EGD on 06/04: oozing gastric ulcer with visible vessel that was jected and heater probe. * Does not take chronic anticoagulants or antiplatelets and according to family he only took Aleve/ibuprofen yesterday for the first time for his hip pain SERAFIN * resolved * Monitor * May be post obstructive. Urinary retention * catheter dc'd 06/04, however, today, pt only had scant urine output. Bladder scanned for +1200 cc urine. * replace sanz. Start tamsulosin * Follow up with as outpt. * Pt at high-risk of self-discontinuation of sanz, however, with his pronounced urinary retention, would pose a greater risk with potential of SERAFIN, hydronephrosis and agitation. Chronic conditions: * Essential HTN/HLD: Blood pressure stable, Can resume his home blood pressure medications, will hold his lisinopril and hydrochlorothiazide secondary to his SERAFIN, Continue with Lipitor * Dementia? Diagnosed about 1 year ago. Reorientation as able. Family interested to see if he could go to SNF before going home. DVT: SCDs Disposition: TBD. For discharge. Waiting on authorization for long term facility. Allergies/Procedures Done in Hospital Allergies No Known Allergies Allergy (Verified 06/04/23 19:04) Type of Care/Length of Stay Estimated LOS: Convalescent Care Less Than 30 days Type of Care Needed: Skilled Rehab Potential: Fair Prognosis: Fair Additional Orders/Day of Discharge Day of Discharge: 06/08/23 Dietary and Speech Recommendations Dietitian Recommendations/Changes: ADAT to Regular diet when medically able to optimize oral intakes. Discharge Plan Admission Admit Date/Time: 06/04/23 22:34 Primary Reason for Your Visit: GI bleed. Attending Provider: William Romeo Primary Care Provider: Moiz Chaudhary Consulting Providers: Matthew Snow Discharge Orders/Prescriptions Prescriptions: New ferrous sulfate [FeroSul] 325 mg (65 mg iron) Tablet 325 mg PO Q48 Qty: 0 0RF quetiapine 25 mg Tablet 25 mg PO DINNER Qty: 0 0RF melatonin 3 mg Tablet 3 mg PO QHS PRN (Reason: Insomnia) Qty: 0 0RF tamsulosin 0.4 mg Capsule 0.4 mg PO DAILY@1730 Qty: 0 0RF pantoprazole [Protonix] 40 mg tablet,delayed release (DR/EC) 40 mg PO BID 10 Days Qty: 20 0RF Continued atorvastatin 10 mg tablet 20 mg PO DAILY donepezil 5 mg tablet 5 mg PO DAILY amlodipine 2.5 mg tablet 2.5 mg PO DAILY Discontinued hydrochlorothiazide 12.5 mg capsule 25 mg PO DAILY lisinopril 40 mg tablet 40 mg PO DAILY Referrals / Follow Up: Moiz Chaudhary MD [Primary Care Provider] - Within 2 Weeks [facility] [Provider Group] - Within 3 Months Ector Eric MD [Med Staff - Active Staff] - Within 1 Month Disposition Disposition (needs filled in before D/C Order can be placed): Nursing Home Facility 06/08/23 1207 <Electronically signed by William Romeo DO> Cosigner Signature (if applicable): CC: Dr. Moiz Chaudhary MD; Dr. Matthew Snow MD ~ [facility] Work Phone: 1(123) 953-542604-19-2024 Progress note Author William Romeo [facility] June 08, 2023 11:57am Note Date/Time June 08, 2023 7:0 0am [facility] Medical Records Department [address] [place] [address] Progress Note - Hospitalist 06/08/23 0659 MR#: [id number] Acct: [id number] Name: HOMERO MEI Rep #:[id number] : 1945 77 From: William Romeo DO PCP: Dr. Moiz Chaudhary MD Status :ADM IN Location: [facility] KD107-1 Reason for Visit Reason for Visit: Diagnoses Gastrointestinal hemorrhage, unspecified (06/04/23) Subjective Subjective Feels well. Denies complaints. Objective Data Objective Data Vital Signs: Vital Signs Temp Pulse Resp BP Pulse Ox O2 Del Method 36.6 C 67 16 124/75 H 98 Room Air 06/08/23 03:30 06/08/23 03:30 06/08/23 03:30 06/08/23 03:30 06/08/23 03:30 06/08/23 03:30 Oxygen Delivery Method Room Air Weight: 90 kg Body Mass Index (BMI) 26.2 Intake & Output: Intake and Output for Last 24 Hours 06/06/23 06/07/23 06/08/23 23:59 23:59 23:59 Intake Total 221 / 221 220 / 220 Output Total 1475 / 2675 2400 / 3500 1949 / 1949 Balance -1254 / -2454 -2180 / -3280 -1949 / -1950 Lab / Micro Data 06/08/23 07:00 06/08/23 07:00 Labs: Laboratory Results - last 24 hr 06/07/23 06:26: WBC 6.1, RBC 2.50 L, Hgb 7.6 L, Hct 22.5 L, MCV 90.0, MCH 30.4, MCHC 33.8, RDW Std Deviation 45.8 H, RDW Coeff of Eugene 14.0, Plt Count 132 L, MPV11.2, Immature Gran % (Auto) 0.300, Neut % (Auto) 60.9, Lymph % (Auto) 27.0, Buchanan % (Auto) 7.4, Eos % (Auto) 4.1, Baso % (Auto) 0.3, Absolute Neuts (auto) 3.7, Absolute Lymphs (auto) 1.65, Nucleated RBC % 0 Micro: Microbiology 06/04/23 21:30 Stool Stool Occult Blood (ARUN) - Final Occult Blood Positive Physical Exam Const alert and no apparent distress HEENT head/scalp atraumatic Resp normal respiratory effort, no retractions, no use of accessory muscles and clearto auscultation bilaterally Cardio regular rate, regular rhythm, S1 normal heart sound and S2 normal heart sound GI normal to inspection, nondistended, normoactive bowel sounds and soft to palpation Neuro Sensorium / Orientation: awake and alert Assessment & Plan Assessment/Plan (1) Upper GI bleed: PLAN: Plan Acute blood loss anemia * currently stable * secondary to upper GI bleed * Hemoglobin 6.3 improved to 7.4 after 2 units of blood ordered in the ER. Currently stable. * Transfused 1 unit PRBC on 06/05. Hg improved. * Started every other day ferrous sulfate GI bleed * Change pantoprazole to 40 BID. * EGD on 06/04: oozing gastric ulcer with visible vessel that was jected and heater probe. * Does not take chronic anticoagulants or antiplatelets and according to family he only took Aleve/ibuprofen yesterday for the first time for his hip pain SERAFIN * resolved * Monitor * May be post obstructive. Urinary retention * catheter dc'd 06/04, however, today, pt only had scant urine output. Bladder scanned for +1200 cc urine. * replace sanz. Start tamsulosin * Follow up with as outpt. * Pt at high-risk of self-discontinuation of sanz, however, with his pronounced urinary retention, would pose a greater risk with potential of SERAFIN, hydrone phrosis and agitation. Chronic conditions: * Essential HTN/HLD: Blood pressure stable, Can resume his home blood pressure medications, will hold his lisinopril and hydrochlorothiazide secondary to his SERAFIN, Continue with Lipitor * Dementia? Diagnosed about 1 year ago. Reorientation as able. Family interested to see if he could go to SNF before going home. DVT: SCDs Disposition: TBD. For discharge. Waiting on authorization for long term facility. Charges/Coding Visit Charges Inpatient E&M: 19683 Subs Hosp L2 06/08/23 1157 <Electronically signed by William Romoe DO> Cosigner Signature (if applicable): CC: ~ Signed [facility] Work Phone: [phone]) [phone] Progress note Author William Romeo [facility] June 07, 2023 3:27pm Note Date/Time June 07, 2023 7:3 0am [facility] Medical Records Department [address] [place] [address] Progress Note - Hospitalist 06/07/23 0727 MR#: [id number] Acct: [id number] Name: HOMERO MEI Rep #:[id number] : 1945 77 From: William Romeo DO PCP: Dr. Moiz Chaudhary MD Status :ADM IN Location: MS3 [id number] Reason for Visit Reason for Visit: Diagnoses Gastrointestinal hemorrhage, unspecified (06/04/23) Subjective Subjective No further melena since 06/05. Sanz catheter was replaced on 06/05. Objective Data Objective Data Vital Signs: Vital Signs Temp Pulse Resp BP Pulse Ox O2 Del Method 36.7 C 66 18 130/79 H 100 Room Air 06/06/23 20:30 06/06/23 20:30 06/06/23 20:30 06/06/23 20:30 06/06/23 20:30 06/06/23 21:00 Oxygen Delivery Method Room Air Weight: 90 kg Body Mass Index (BMI) 26.2 Intake & Output: Intake and Output for Last 24 Hours 06/05/23 06/06/23 06/07/23 23:59 23:59 23:59 Intake Total 332 / 332 221 / 221 Output Total 1850 / 1850 1475 / 1475 Balance -1518 / -1518 -1254 / -1254 Lab / Micro Data 06/07/23 06:26 06/06/23 06:05 Labs: Laboratory Results - last 24 hr 06/04/23 20:29: Crossmatch See Detail 06/04/23 20:29: Crossmatch See Detail 06/06/23 06:05: WBC 8.8, RBC 2.47 L, Hgb 7.4 L, Hct 22.5 L, MCV 91.1, MCH 30.0, MCHC 32.9, RDW Std Deviation 48.4 H, RDW Coeff of Eugene 14.7 H, Plt Count 180, MPV11.6, Immature Gran % (Auto) 0.600, Neut % (Auto) 69.6, Lymph % (Auto) 22.4, Buchanan % (Auto) 6.1, Eos % (Auto) 1.1, Baso % (Auto) 0.2, Absolute Neuts (auto) 6.1,Absolute Lymphs (auto) 1.96, Nucleated RBC % 0, Sodium 143, Potassium 3.8, Chloride 114 H, Carbon Dioxide 27.0, Anion Gap 2 L, BUN 42 H, Creatinine 0.95, Estim Creat Clear Calc 75.93, Est GFR (MDRD) Af Amer 100, Est GFR (MDRD) Non-Af 82, BUN/Creatinine Ratio 44.3 H, Glucose 132 H, Calcium 8.7 06/06/23 13:40: WBC 7.2, RBC 2.21 L, Hgb 6.5 L, Hct 19.7 L, MCV 89.1, MCH 29.4, MCHC 33.0, RDW Std Deviation 46.5 H, RDW Coeff of Eugene 14.6, Plt Count 146 L, MPV11.2, Immature Gran % (Auto) 0.800, Neut % (Auto) 71.1 H, Lymph % (Auto) 19.0, Buchanan % (Auto) 8.0, Eos % (Auto) 0.8, Baso % (Auto) 0.3, Absolute Neuts (auto) 5.1, Absolute Lymphs (auto) 1.36, Nucleated RBC % 0 06/06/23 22:28: Hgb 7.1 L, Hct 21.4 L 06/07/23 06:26: WBC 6.1, RBC 2.50 L, Hgb 7.6 L, Hct 22.5 L, MCV 90.0, MCH 30.4, MCHC 33.8, RDW Std Deviation 45.8 H, RDW Coeff of Eugene 14.0, Plt Count 132 L, MPV11.2, Immature Gran % (Auto) 0.300, Neut % (Auto) 60.9, Lymph % (Auto) 27.0, Buchanan % (Auto) 7.4, Eos % (Auto) 4.1, Baso % (Auto) 0.3, Absolute Neuts (auto) 3.7, Absolute Lymphs (auto) 1.65, Nucleated RBC % 0 Micro: Microbiology 06/04/23 21:30 Stool Stool Occult Blood (ARUN) - Final Occult Blood Positive Physical Exam Const alert and no apparent distress Cardio regular rate, regular rhythm, S1 normal heart sound and S2 normal heart sound GI normal to inspection, nondistended, normoactive bowel sounds, soft to palpation,non-tender and non-distended Extremity normal to inspection Assessment & Plan Assessment/Plan (1) Upper GI bleed: PLAN: Plan Acute blood loss anemia * currently stable * secondary to upper GI bleed * Hemoglobin 6.3 improved to 7.4 after 2 units of blood ordered in the ER. Currently stable. * Transfused 1 unit PRBC on 06/05. Hg improved. GI bleed * Change pantoprazole to 40 BID. * EGD on 06/04: oozing gastric ulcer with visible vessel that was jected and heater probe. * Does not take chronic anticoagulants or antiplatelets and according to family he only took Aleve/ibuprofen yesterday for the first time for his hip pain SERAFIN * resolved * Monitor Urinary retention * catheter dc'd 06/04, however, today, pt only had scant urine output. Bladder scanned for +1200 cc urine. * replace sanz. Start tamsulosin * Follow up with as outpt. * Pt at high-risk of self-discontinuation of sanz, however, with his pronounced urinary retention, would pose a greater risk with potential of SERAFIN, hydronephrosis and agitation. Chronic conditions: * Essential HTN/HLD: Blood pressure stable, Can resume his home blood pressure medications, will hold his lisinopril and hydrochlorothiazide secondary to his SERAFIN, Continue with Lipitor * Dementia? Diagnosed about 1 year ago. Reorientation as able. Family interested to see if he could go to SNF before going home. DVT: SCDs Disposition: TBD. Once verified patient is medically stable he should be ready for discharge hopefully in the next 24 to 48 hours. Looking at [facility] versus [facility] pending insurance acceptance and precertification. Discussed with the one of the patient's sons today. Charges/Coding Visit Charges Inpatient E&M: 36652 Subs Hosp L2 06/07/23 1527 <Electronically signed by William Romeo DO> Cosigner Signature (if applicable): CC: ~ Signed [facility] Work Phone: [phone] Progress note Author Cami Friend [facility] June 06, 2023 6:15pm Note Date/Time June 06, 2023 6:1 5pm [facility] Medical Records Department [address] [place] [place] [address] Progress Note - GI 06/06/23 181 MR#: [id number] Acct: [id number] Name: HOMERO MEI Rep #:[id number] : 1945 77 From: Cami Friend PCP: Dr. Moiz Chaudhary MD Status :ADM IN Location: MS3 [id number] Subjective Subjective Patient underwent an upper endoscopy yesterday for acute blood loss anemia. He does not have any abdominal pain this morning. His diet has been progressed from a full liquid diet.. Objective Data Objective Data Vital Signs: Vital Signs Temp Pulse Resp BP Pulse Ox O2 Del Method 98 F 68 16 93/56 L 97 Room Air 06/06/23 18:07 06/06/23 18:07 06/06/23 18:07 06/06/23 18:07 06/06/23 18:07 06/06/23 18:07 Oxygen Delivery Method Room Air Weight: 198 lb 6.656 oz Body Mass Index (BMI) 26.2 Intake & Output: Intake and Output for Last 24 Hours 06/04/23 06/05/23 06/06/23 23:59 23:59 23:59 Intake Total 1000 / 1000 332 / 332 110 / 110 Output Total 1850 / 1850 1475 / 1475 Balance 1000 / 200 -1518 / -1518 -1365 / -1365 Lab / Micro Data 06/06/23 13:40 06/06/23 06:05 Labs: Laboratory Results - last 24 hr 06/04/23 20:29: Crossmatch See Detail 06/04/23 20:29: Crossmatch See Detail 06/06/23 06:05: WBC 8.8, RBC 2.47 L, Hgb 7.4 L, Hct 22.5 L, MCV 91.1, MCH 30.0, MCHC 32.9, RDW Std Deviation 48.4 H, RDW Coeff of Eugene 14.7 H, Plt Count 180, MPV11.6, Immature Gran % (Auto) 0.600, Neut % (Auto) 69.6, Lymph % (Auto) 22.4, Buchanan % (Auto) 6.1, Eos % (Auto) 1.1, Baso % (Auto) 0.2, Absolute Neuts (auto) 6.1, Absolute Lymphs (auto) 1.96, Nucleated RBC % 0, Sodium 143, Potassium 3.8, Chloride 114 H, Carbon Dioxide 27.0, Anion Gap 2 L, BUN 42 H, Creatinine 0.95, Estim Creat Clear Calc 75.93, Est GFR (MDRD) Af Amer 100, Est GFR (MDRD) Non-Af 82, BUN/Creatinine Ratio 44.3 H, Glucose 132 H, Calcium 8.7 06/06/23 13:40: WBC 7.2, RBC 2.21 L, Hgb 6.5 L, Hct 19.7 L, MCV 89.1, MCH 29.4, MCHC 33.0, RDW Std Deviation 46.5 H, RDW Coeff of Eugene 14.6, Plt Count 146 L, MPV11.2, Immature Gran % (Auto) 0.800, Neut % (Auto) 71.1 H, Lymph % (Auto) 19.0, Buchanan % (Auto) 8.0, Eos % (Auto) 0.8, Baso % (Auto) 0.3, Absolute Neuts (auto) 5.1, Absolute Lymphs (auto) 1.36, Nucleated RBC % 0 Micro: Microbiology 06/04/23 21:30 Stool Stool Occult Blood (ARUN) - Final Occult Blood Positive Physical Exam Const alert and no apparent distress Constitutional Narrative: in nursing station in [facility]. Orientation / Consciousness: confused HEENT head/scalp atraumatic and moist oral mucous membranes Resp normal respiratory effort, no retractions, no use of accessory muscles and clearto auscultation bilaterally Cardio regular rate, regular rhythm, S1 normal heart sound and S2 normal heart sound GI normal to inspection, nondistended, normoactive bowel sounds, soft to palpation,non-tender and non-distended Extremity normal to inspection Neuro Sensorium / Orientation: awake and alert Assessment & Plan Assessment/Plan (1) Upper GI bleed: PLAN: Plan Acute blood loss anemia secondary to upper GI bleed/SERAFIN. His hemoglobin seems to be stable at this time. ? Findings: The examined esophagus was normal. One oozing cratered gastric ulcer with a visible vessel was found in the gastric body. The lesion was 6 mm in largest dimension. Area was successfully injected with 5 mL of a 0.1 mg/mL solution of epinephrine for drug delivery. Coagulation for hemostasis using heater probe was successful. One non-bleeding cratered gastric ulcer with no stigmata of bleeding was found in the cardia. The lesion was 4 mm in largest dimension. Biopsies were taken with a cold forceps for histology. Verification of patient identification for the specimen was done. Estimated blood loss was minimal. Biopsies were taken with a cold forceps for Helicobacter pylori testing. Verification of patient identification for the specimen was done. Estimated blood loss was minimal. No gross lesions were noted in the duodenal bulb. Impression: - Normal esophagus. - Oozing gastric ulcer with a visible vessel. Injected. Treated with a heater probe. - Non-bleeding gastric ulcer with no stigmata of bleeding. Biopsied. - No gross lesions in the duodenal bulb. Recommendation: - Return patient to [facility] for [facility] care. - Full liquid diet today. Advance diet as tolerated - Use Prilosec (omeprazole) 40 mg PO BID for 3 months. - Repeat upper endoscopy in 3 months for surveillance. Charges/Coding Visit Charges Inpatient E&M: 36785 [facility] Hosp 06/06/231814 <Electronically signed by Cami Diaz DO> Cosigner Signature (if applicable): CC: ~ Signed [facility] Work Phone: [phone] Progress note Author William Romeo [facility] June 06, 2023 11:37am Note Date/Time June 06, 2023 7:1 4am [facility] Medical Records Department [address] [place] [address] Progress Note - Hospitalist 06/06/23 0711 MR#: [id number] Acct: [id number] Name: HOMERO MEI Rep #:[id number] : 1945 77 From: William Romeo DO PCP: Dr. Moiz Chaudhary MD Status :ADM IN [id number] Reason for Visit Reason for Visit: Diagnoses Gastrointestinal hemorrhage, unspecified (06/04/23) Subjective Subjective Agitated. Recalling staff member whom he had not seen in years correctly, but interacting with his cellphone when it was not on. Objective Data Objective Data Vital Signs: Vital Signs Temp Pulse Resp BP Pulse Ox O2 Del Method 36.7 C 106 H 18 130/99 H 96 Room Air 06/06/23 06:03 06/06/23 06:03 06/06/23 06:03 06/05/23 19:06 06/06/23 06:03 06/06/23 06:03 Oxygen Delivery Method Room Air Weight: 90 kg Body Mass Index (BMI) 26.2 Intake & Output: Intake and Output for Last 24 Hours 06/04/23 06/05/23 06/06/23 23:59 23:59 23:59 Intake Total 1000 / 1000 332 / 332 Output Total 1850 / 1850 Balance 1000 / 200 -1518 / -1518 Lab / Micro Data 06/06/23 06:05 06/06/23 06:05 Labs: Laboratory Results - last 24 hr 06/05/23 06:20: Sodium 144, Potassium 3.8, Chloride 115 H, Carbon Dioxide 26.0, Anion Gap 3 L, BUN 76 H, Creatinine 1.15, Estim Creat Clear Calc 62.72, Est GFR (MDRD) Af Amer 80, Est GFR (MDRD) Non-Af 66, BUN/Creatinine Ratio 66.1 H, Glucose 131 H, Calcium 8.4 L Micro: Microbiology 06/04/23 21:30 Stool Stool Occult Blood (ARUN) - Final Occult Blood Positive Physical Exam Const alert and no apparent distress Constitutional Narrative: in nursing station in [facility]. Orientation / Consciousness: confused HEENT head/scalp atraumatic and moist oral mucous membranes Resp normal respiratory effort, no retractions, no use of accessory muscles and clearto auscultation bilaterally Cardio regular rate, regular rhythm, S1 normal heart sound and S2 normal heart sound GI normal to inspection, nondistended, normoactive bowel sounds, soft to palpation,non-tender and non-distended Extremity normal to inspection Neuro Sensorium / Orientation: awake and alert Assessment & Plan Assessment/Plan (1) Upper GI bleed: PLAN: Plan Acute blood loss anemia * currently stable * secondary to upper GI bleed * Hemoglobin 6.3 improved to 7.4 after 2 units of blood ordered in the ER. Currently stable. GI bleed * Change pantoprazole to 40 BID. * EGD on 06/04: oozing gastric ulcer with visible vessel that was jected and heater probe. * Does not take chronic anticoagulants or antiplatelets and according to family he only took Aleve/ibuprofen yesterday for the first time for his hip pain Possible SERAFIN * no baseline Creatinine from Feb. * Monitor Urinary retention * catheter dc'd 06/04, however, today, pt only had scant urine output. Bladder scanned for +1200 cc urine. * replace sanz. Start tamsulosin * Follow up with as outpt. * Pt at high-risk of self-discontinuation of sanz, however, with his pronounced urinary retention, would pose a greater risk with potential of SERAFIN, hydronephrosis and agitation. Chronic conditions: * Essential HTN/HLD: Blood pressure stable, Can resume his home blood pressure medications, will hold his lisinopril and hydrochlorothiazide secondary to his SERAFIN, Continue with Lipitor * Dementia? Diagnosed about 1 year ago. Reorientation as able. Family interested to see if he could go to SNF before going home. DVT: SCDs Disposition: TBD. Pt medically stable for discharge, but he is unsafe to return home by himself independently. Case management to assist on proper placement for him upon discharge. Charges/Coding Visit Charges Inpatient E&M: 14827 Subs Hosp L2 06/06/23 1137 <Electronically signed by William Romeo DO> Cosigner Signature (if applicable): CC: ~ Signed [facility] Work Phone: [phone] Consult note Author Cami Diaz [facility] June 05, 2023 6:22pm Note Date/Time June 05, 2023 6:2 2pm [facility] Medical Records Department [address] [place] [address] Consultation - GI 06/04/23 2320 MR#: [id number] Acct: [id number] Name: HOMERO MEI Rep #:[id number] : 1945 77 From: Cami Diaz DO PCP: Dr. Moiz Chaudhary MD Status :ADM IN Location: [facility] [id number] HPI Consult Data Date of Consult: 06/05/23 HPI Narrative Reason for Consultation: GI bleed HPI Narrative: HOMERO MEI, is a 77 M who presents to the hospital concerning initially for increased confusion. He was recently diagnosed with dementia and is currently in the stage of being worked up though he is on donepezil. His only medical history is hypertension and hyperlipidemia. He lives alone and family is attempted to get a hold of him and they could not get a hold of them so they went over to the house and had to knock on the window in order to get his attention. He appeared more pale and confused than normal and when he presented to the hospital he was found to have a hemoglobin of 6.3. He denies any vomiting or real abdominal pain until today. He did state that he had a darker stool a day or 2 ago but otherwise does not take any blood thinners or aspirin. He does have some hip pain but only started taking NSAIDs yesterday per history from himand family at bedside. In the ER he was found to have a leukocytosis of 13 with a hemoglobin of 6.3 and a new SERAFIN to 1.49 with a BUN of 105 consistent with an upper GI bleed. No infectious etiology is noted and his elevated white blood cell count was felt lanie due to an reaction to his anemia. He was started his transfusion in the ER and will receive a total of 2 units this evening. [facility] Medical History (Updated 06/05/23 @ 00:[address] Matthew Snow MD) Colon polyps Dementia Herniated disc Hyperlipidemia Hypertension Inguinal hernia Macular degeneration Home Medications atorvastatin 10 mg tablet 20 mg PO DAILY 03/17/20 [History Last Taken 06/04/23] amlodipine 2.5 mg tablet 2.5 mg PO DAILY 06/04/23 [History Last Taken 06/04/23] donepezil 5 mg tablet 5 mg PO DAILY 06/04/23 [History Last Taken 06/04/23] hydrochlorothiazide 12.5 mg capsule 25 mg PO DAILY 06/04/23 [History Last Taken 06/04/23] lisinopril 40 mg tablet 40 mg PO DAILY 06/04/23 [History Last Taken 06/04/23] Allergy/AdvReac Type Severity Reaction Status Date / Time No Known Allergies Allergy Verified 06/04/23 19:04 Family History (Updated 06/04/23 @ 22:[address] Matthew Snow MD) Other CVA (cerebral vascular accident) Surgical History (Updated 06/04/23 @ 22:[address] Matthew Snow MD) Status post inguinal hernia repair Social History Smoking Status: Never smoker ROS Constitutional Constitutional: Denies chills, fatigue, fever(s) or malaise Eyes Eyes: Denies blurry vision ENT HEENT: Denies headache(s) or nasal discharge Cardiovascular Cardiovascular: Denies chest pain, dyspnea on exertion or syncope Respiratory/Chest Respiratory/Chest: Denies cough, shortness of breath at rest or shortness of breath with exertion Gastrointestinal Gastrointestinal: Reports abdominal pain and nausea; Denies constipation, diarrhea, hematemesis or vomiting Genitourinary Genitourinary: Denies dysuria Neurologic Neurologic: Denies focal weakness, numbness or tremor(s) Psychiatric Psychiatric: Denies anxiety or depression Physical Exam Const Constitutional Narrative: seen at nursing station in [facility]. Pleasant. Afebrile. Resp normal respiratory effort, no retractions, no use of accessory muscles and clearto auscultation bilaterally Cardio regular rate, regular rhythm, S1 normal heart sound and S2 normal heart sound GI normal to inspection, nondistended, normoactive bowel sounds, soft to palpation,non-tender and non-distended Extremity normal to inspection Lab / Micro Data 06/05/23 06:20 06/05/23 06:20 Labs: Laboratory Results - last 24 hr 06/04/23 19:25: WBC 13.0 H, RBC 2.09 L, Hgb 6.3 L, Hct 18.9 L, MCV 90.4, MCH 30.1, MCHC 33.3, RDW Std Deviation 43.8, RDW Coeff of Eugene 13.2, Plt Count 202, MPV 11.6, Immature Gran % (Auto) 0.500, Neut % (Auto) 83.9 H, Lymph % (Auto) 10.5 L, Buchanan % (Auto) 4.8, Eos % (Auto) 0.1, Baso % (Auto) 0.2, Absolute Neuts (auto) 10.9 H, Absolute Lymphs (auto) 1.37, Nucleated RBC % 0, Sodium 142, Potassium 4.1, Chloride 111 H, Carbon Dioxide 22.0, Anion Gap 9, BUN 105 H*, Creatinine 1.49 H, Estim Creat Clear Calc 48.41, Est GFR (MDRD) Af Amer 59 L, Est GFR (MDRD) Non-Af 49 L, BUN/Creatinine Ratio 70.5 H, Glucose 115 H, Calcium 8.6, Total Bilirubin 0.30, AST 7 L, ALT 23, Alkaline Phosphatase 46, Troponin I High Sens 33, Total Protein 5.4 L, Albumin 3.1 L, Globulin 2.3, Albumin/GlobulinRatio 1.3 06/04/23 20:00: Ammonia 11.0 06/04/23 20:29: Blood Type A NEGATIVE, Antibody Screen NEGATIVE, Crossmatch See Detail 06/04/23 21:00: Urine Color Yellow, Urine Clarity Clear, Urine pH 6.0, Ur Specific [place] 1.015, Urine Protein Negative, Urine Glucose (UA) Normal, UrineKetones Negative, Urine Occult Blood Negative, Urine Nitrite Negative, Urine Bilirubin Negative, Urine Urobilinogen Normal, Ur Leukocyte Esterase Negative, Urine RBC 0 SEEN, Urine WBC 0 SEEN, Ur Squamous Epith Cells 0-5 SEEN, Urine Bacteria 0 SEEN, Urine Mucus 0 SEEN 06/05/23 06:20: WBC 11.9 H, RBC 2.49 L, Hgb 7.4 L, Hct 21.9 L, MCV 88.0, MCH 29.7, MCHC 33.8, RDW Std Deviation 44.5 H, RDW Coeff of Eugene 14.0, Plt Count 188,MPV 11.3, Immature Gran % (Auto) 0.400, Neut % (Auto) 77.3 H, Lymph % (Auto) 15.7 L, Buchanan % (Auto) 6.2, Eos % (Auto) 0.2, Baso % (Auto) 0.2, Absolute Neuts (auto) 9.2 H, Absolute Lymphs (auto) 1.87, Nucleated RBC % 0, Sodium 144, Potassium 3.8, Chloride 115 H, Carbon Dioxide 26.0, Anion Gap 3 L, BUN 76 H, Creatinine 1.15, Estim Creat Clear Calc 62.72, Est GFR (MDRD) Af Amer 80, Est GFR (MDRD) Non-Af 66, BUN/Creatinine Ratio 66.1 H, Glucose 131 H, Calcium 8.4 L Micro: Microbiology 06/04/23 21:30 Stool Stool Occult Blood (ARUN) - Final Occult Blood Positive Imaging Radiology Impression Brain CT 06/04/23 19:45 IMPRESSION: Atrophy and mild periventricular white matter ischemic change. No acute bleed. If concern for acute infarct MRI recommended. Electronically Signed: Danilo Abarca MD at 20:59 EDT , Abdomen/Pelvis CT 06/04/23 19:46 IMPRESSION: Nonspecific ileus. Diverticular disease of the descending colon without evidence for acute diverticulitis No evidence for small bowel obstruction or acute appendicitis Electronically Signed: Danilo Abarca MD at 21:09 EDT , Chest X-Ray 06/04/23 20:28 IMPRESSION: No acute cardiopulmonary pathology. Electronically Signed: Danilo Abarca MD at 21:48 EDT , Assessment & Plan Assessment/Plan (1) Upper GI bleed: PLAN: Plan 77-year-old with past medical history of hypertension, BPH, dementia who comes in with shortness of breath and melanotic stools. He discovered to have a hemoglobin of 6.3 and previously was 14. BUN/creatinine ratio was 105 or 1.4 consistent with : Acute blood loss anemia secondary to upper GI bleed/SERAFIN ? Hemoglobin 6.3, receiving 2 units of blood ordered in the ER ? Continue with Protonix -He will undergo an upper endoscopy to evaluate his upper GI tract. The patientand his family were explained alternatives, risk, benefits include not withstanding bleeding, infection, sepsis, perforation, need for discharge and . He will have an ASA of 3. Charges/Coding Visit Charges Inpatient E&M: 98837 Init Hosp L3 06/05/23 1822 <Electronically signed by Cami Friend DO> Cosigner Signature (if applicable): CC: Dr. Moiz Chaudhary MD~ Signed [facility] Work Phone: 1(206) 606-254504-16-2024 Procedure [facility] 06-05-2023 Procedure [facility]04-16-2024 Progress note Author William Romeo [facility] June 05, 2023 10:40am Note Date/Time June 05, 2023 7:1 2am [facility] Medical Records Department [address] [place] [address] Progress Note - Hospitalist 06/05/2308 MR#: [id number] Acct: [id number] Name: HOMERO MEI Rep #:[id number] : 1945 77 From: William Romeo DO PCP: Dr. Moiz Chaudhary MD Status :ADM IN Location: MS3 [id number] Reason for Visit Reason for Visit: Diagnoses Gastrointestinal hemorrhage, unspecified (06/04/23) Subjective Subjective No bleeding. Objective Data Objective Data Vital Signs: Vital Signs Temp Pulse Resp BP Pulse Ox O2 Del Method 37.3 C 78 18 123/59 H 100 Room Air 06/05/23 05:05 06/05/23 05:05 06/05/23 05:05 06/05/23 05:05 06/05/23 05:05 06/05/23 05:05 Oxygen Delivery Method Room Air Weight: 90 kg Body Mass Index (BMI) 26.2 Intake & Output: Intake and Output for Last 24 Hours 06/03/23 06/04/23 06/05/23 23:59 23:59 23:59 Intake Total 1000 / 1000 112 / 112 Output Total 1600 / 1600 Balance 1000 / 200 -1488 / -1488 Lab / Micro Data 06/05/23 06:20 06/05/23 06:20 Labs: Laboratory Results - last 24 hr 06/04/23 19:25: WBC 13.0 H, RBC 2.09 L, Hgb 6.3 L, Hct 18.9 L, MCV 90.4, MCH 30.1, MCHC 33.3, RDW Std Deviation 43.8, RDW Coeff of Eugene 13.2, Plt Count 202, MPV 11.6, Immature Gran % (Auto) 0.500, Neut % (Auto) 83.9 H, Lymph % (Auto) 10.5 L, Buchanan % (Auto) 4.8, Eos % (Auto) 0.1, Baso % (Auto) 0.2, Absolute Neuts (auto) 10.9 H, Absolute Lymphs (auto) 1.37, Nucleated RBC % 0, Sodium 142, Potassium 4.1, Chloride 111 H, Carbon Dioxide 22.0, Anion Gap 9, BUN 105 H*, Creatinine 1.49 H, Estim Creat Clear Calc 48.41, Est GFR (MDRD) Af Amer 59 L, Est GFR (MDRD) Non-Af 49 L, BUN/Creatinine Ratio 70.5 H, Glucose 115 H, Calcium 8.6, Total Bilirubin 0.30, AST 7 L, ALT 23, Alkaline Phosphatase 46, Troponin I High Sens 33, Total Protein 5.4 L, Albumin 3.1 L, Globulin 2.3, Albumin/GlobulinRatio 1.3 06/04/23 20:00: Ammonia 11.0 06/04/23 20:29: Blood Type A NEGATIVE, Antibody Screen NEGATIVE, Crossmatch See Detail 06/04/23 21:00: Urine Color Yellow, Urine Clarity Clear, Urine pH 6.0, Ur Specific [place] 1.015, Urine Protein Negative, Urine Glucose (UA) Normal, UrineKetones Negative, Urine Occult Blood Negative, Urine Nitrite Negative, Urine Bilirubin Negative, Urine Urobilinogen Normal, Ur Leukocyte Esterase Negative, Urine RBC 0 SEEN, Urine WBC 0 SEEN, Ur Squamous Epith Cells 0-5 SEEN, Urine Bacteria 0 SEEN, Urine Mucus 0 SEEN 06/05/23 06:20: WBC 11.9 H, RBC 2.49 L, Hgb 7.4 L, Hct 21.9 L, MCV 88.0, MCH 29.7, MCHC 33.8, RDW Std Deviation 44.5 H, RDW Coeff of [place] 14.0, Plt Count 188,MPV 11.3, Immature Gran % (Auto) 0.400, Neut % (Auto) 77.3 H, Lymph % (Auto) 15.7 L, Buchanan % (Auto) 6.2, Eos % (Auto) 0.2, Baso % (Auto) 0.2, Absolute Neuts (auto) 9.2 H, Absolute Lymphs (auto) 1.87, Nucleated RBC % 0 Micro: Microbiology 06/04/23 21:30 Stool Stool Occult Blood (ARUN) - Final Occult Blood Positive Radiography Diagnostic Testing: Radiology Impression Brain CT 06/04/23 19:45 IMPRESSION: Atrophy and mild periventricular white matter ischemic change. No acute bleed. If concern for acute infarct MRI recommended. Electronically Signed: Danilo Abarca MD at 20:59 EDT , Abdomen/Pelvis CT 06/04/23 19:46 IMPRESSION: Nonspecific ileus. Diverticular disease of the descending colon without evidence for acute diverticulitis No evidence for small bowel obstruction or acute appendicitis Electronically Signed: Danilo Abarca MD at 21:09 EDT , Chest X-Ray 06/04/23 20:28 IMPRESSION: No acute cardiopulmonary pathology. Electronically Signed: Danilo Abarca MD at 21:48 EDT , Physical Exam Const Constitutional Narrative: seen at nursing station in [facility]. [facility]. Afebrile. Resp normal respiratory effort, no retractions, no use of accessory muscles and clearto auscultation bilaterally Cardio regular rate, regular rhythm, S1 normal heart sound and S2 normal heart sound GI normal to inspection, nondistended, normoactive bowel sounds, soft to palpation,non-tender and non-distended Extremity normal to inspection Assessment & Plan Assessment/Plan (1) Upper GI bleed: PLAN: Plan Acute blood loss anemia * secondary to upper GI bleed * Hemoglobin 6.3 improved to 7.4 after 2 units of blood ordered in the ER GI bleed * Continue with Protonix * consult gastroenterology * Does not take chronic anticoagulants or antiplatelets and according to family he only took Aleve/ibuprofen yesterday for the first time for his hip pain Possible SERAFIN * no baseline Creatinine from Feb. * Monitor Chronic conditions: * Essential HTN/HLD: Blood pressure stable, Can resume his home blood pressure medications, will hold his lisinopril and hydrochlorothiazide secondary to his SERAFIN, Continue with Lipitor * Dementia? Fairly new onset? Currently in the workup stages? Continue with donepezil DVT: SCDs Charges/Coding Visit Charges Inpatient E&M: 45028 Subs Hosp L2 06/05/23 1040 <Electronically signed by William Romeo DO> Cosigner Signature (if applicable): CC: ~ Signed [facility] Work Phone: [phone] History and physical note Author Matthew Snow [facility] June 05, 2023 12:10am Note Date/Time June 04, 2023 10: 41pm [facility] Medical Records Department [address] [place] [address] H&P Exam - Hospitalist 06/04/232236 MR#: [id number] Acct: [id number] Name: HOMERO MEI Rep #:[id number] : 1945 77 From: Matthew echevarria MD PCP: Dr. Moiz Chaudhary MD Status :ADM IN Location: [facility] [id number] HPI - General General Date of Admission: 06/04/23 HPI Narrative HOMERO MEI, is a 77 M who presents to the hospital concerning initially for increased confusion. He was recently diagnosed with dementia and is currently in the stage of being worked up though he is on donepezil. His only medical history is hypertension and hyperlipidemia. He lives alone and family is attempted to get a hold of him and they could not get a hold of them so they went over to the house and had to knock on the window in order to get his attention. He appeared more pale and confused than normal and when he presentedto the hospital he was found to have a hemoglobin of 6.3. He denies any vomiting or real abdominal pain until today. He did state that he had a darker stool a day or 2 ago but otherwise does not take any blood thinners or aspirin. He does have some hip pain but only started taking NSAIDs yesterday per history from him and family at bedside. In the ER he was found to have a leukocytosis of 13 with a hemoglobin of 6.3 and a new SERAFIN to 1.49 with a BUN of 105 consistent with an upper GI bleed. No infectious etiology is noted and his elevated white blood cell count was felt to be due to an reaction to his anemia. He was started his transfusion in the ER and will receive a total of 2 units this evening. The case was discussed with GI. [facility] Medical History (Updated 06/05/23 @ 00:[address] Matthew Snow MD) Colon polyps Dementia Herniated disc Hyperlipidemia Hypertension Inguinal hernia Macular degeneration Home Medications atorvastatin 10 mg tablet 20 mg PO DAILY 03/17/20 [History Last Taken 06/04/23] amlodipine 2.5 mg tablet 2.5 mg PO DAILY 06/04/23 [History Last Taken 06/04/23] donepezil 5 mg tablet 5 mg PO DAILY 06/04/23 [History Last Taken 06/04/23] hydrochlorothiazide 12.5 mg capsule 25 mg PO DAILY 06/04/23 [History Last Taken 06/04/23] lisinopril 40 mg tablet 40 mg PO DAILY 06/04/23 [History Last Taken 06/04/23] Allergy/AdvReac Type Severity Reaction Status Date / Time No Known Allergies Allergy Verified 06/04/23 19:04 Family History (Updated 06/04/23 @ 22:[address] Matthew Snow MD) Other CVA (cerebral vascular accident) Surgical History (Updated 06/04/23 @ 22:[address] Matthew Snow MD) Status post inguinal hernia repair Social History Smoking Status: Never smoker ROS Constitutional Constitutional: Denies chills, fatigue, fever(s) or malaise Eyes Eyes: Denies blurry vision ENT HEENT: Denies headache(s) or nasal discharge Cardiovascular Cardiovascular: Denies chest pain, dyspnea on exertion or syncope Respiratory/Chest Respiratory/Chest: Denies cough, shortness of breath at rest or shortness of breath with exertion Gastrointestinal Gastrointestinal: Reports abdominal pain and nausea; Denies constipation, diarrhea, hematemesis or vomiting Genitourinary Genitourinary: Denies dysuria Neurologic Neurologic: Denies focal weakness, numbness or tremor(s) Psychiatric Psychiatric: Denies anxiety or depression Vital Signs Vital Signs Vital Signs: 06/04/23 19:04 06/04/23 19:06 06/04/23 19:37 Temperature 97 F L Temperature Source Temporal Pulse Rate 84 79 Pulse Rate [Lying] Pulse Rate [Sitting (for 1 minute prior to obtaining)] Pulse Rate [Standing (for 1 minute prior to obtaining)] Respiratory Rate 18 12 Respiratory Effort Normal Respiratory Pattern Normal Blood Pressure 100/47 L 104/59 L Blood Pressure [Lying] Blood Pressure [Sitting (for 1 minute prior to obtaining)] Blood Pressure [Standing (for 1 minute prior to obtaining)] Blood Pressure Mean 64 74 Blood Pressure Mean [Lying] Blood Pressure Mean [Sitting (for 1 minute prior to obtaining)] Blood Pressure Mean [Standing (for 1 minute prior to obtaining)] Blood Pressure Source Blood Pressure Position Blood Pressure Location Pulse Ox 100 93 Oxygen Delivery Method Room Air Room Air 06/04/23 20:02 06/04/23 21:15 06/04/23 22:19 Temperature 98.4 F 98.5 F Temperature Source Oral Pulse Rate 86 82 Pulse Rate [Lying] 85 Pulse Rate [Sitting (for 1 minute prior to obtaining)] 77 Pulse Rate [Standing (for 1 minute prior to obtaining)] 87 Respiratory Rate 15 14 Respiratory Effort Respiratory Pattern Blood Pressure 123/76 H 122/62 H Blood Pressure [Lying] 101/60 Blood Pressure [Sitting (for 1 minute prior to obtaining)] 86/54 L Blood Pressure [Standing (for 1 minute prior to obtaining)] 79/67 L Blood Pressure Mean 91 82 Blood Pressure Mean [Lying] 73 Blood Pressure Mean [Sitting (for 1 minute prior to obtaining)] 64 Blood Pressure Mean [Standing (for 1 minute prior to obtaining)] 71 Blood Pressure Source Monitor Blood Pressure Position Semi-Fowlers Blood Pressure Location Right Arm Pulse Ox 95 98 Oxygen Delivery Method Room Air 06/04/23 22:33 06/04/23 22:35 06/04/23 19:39 Temperature 98.4 F 98.4 F Temperature Source Oral Oral Pulse Rate 85 83 79 Pulse Rate [Lying] Pulse Rate [Sitting (for 1 minute prior to obtaining)] Pulse Rate [Standing (for 1 minute prior to obtaining)] Respiratory Rate 16 16 14 Respiratory Effort Respiratory Pattern Blood Pressure 138/75 H 135/70 H Blood Pressure [Lying] Blood Pressure [Sitting (for 1 minute prior to obtaining)] Blood Pressure [Standing (for 1 minute prior to obtaining)] Blood Pressure Mean 96 91 Blood Pressure Mean [Lying] Blood Pressure Mean [Sitting (for 1 minute prior to obtaining)] Blood Pressure Mean [Standing (for 1 minute prior to obtaining)] Blood Pressure Source Monitor Monitor Blood Pressure Position Semi-Fowlers Semi-Fowlers Blood Pressure Location Right Arm Right Arm Pulse Ox 98 100 98 Oxygen Delivery Method Room Air 06/04/23 19:45 06/04/23 20:00 06/04/23 20:06 Temperature Temperature Source Pulse Rate 81 80 78 Pulse Rate [Lying] Pulse Rate [Sitting (for 1 minute prior to obtaining)] Pulse Rate [Standing (for 1 minute prior to obtaining)] Respiratory Rate 18 20 H 16 Respiratory Effort Respiratory Pattern Blood Pressure 89/64 L 79/67 L 101/60 Blood Pressure [Lying] Blood Pressure [Sitting (for 1 minute prior to obtaining)] Blood Pressure [Standing (for 1 minute prior to obtaining)] Blood Pressure Mean 70 73 74 Blood Pressure Mean [Lying] Blood Pressure Mean [Sitting (for 1 minute prior to obtaining)] Blood Pressure Mean [Standing (for 1 minute prior to obtaining)] Blood Pressure Source Blood Pressure Position Blood Pressure Location Pulse Ox 98 Oxygen Delivery Method Room Air 06/04/23 20:15 06/04/23 20:30 06/04/23 20:45 Temperature Temperature Source Pulse Rate 75 77 Pulse Rate [Lying] Pulse Rate [Sitting (for 1 minute prior to obtaining)] Pulse Rate [Standing (for 1 minute prior to obtaining)] Respiratory Rate 15 16 Respiratory Effort Respiratory Pattern Blood Pressure 117/64 104/55 L 125/75 H Blood Pressure [Lying] Blood Pressure [Sitting (for 1 minute prior to obtaining)] Blood Pressure [Standing (for 1 minute prior to obtaining)] Blood Pressure Mean 79 69 91 Blood Pressure Mean [Lying] Blood Pressure Mean [Sitting (for 1 minute prior to obtaining)] Blood Pressure Mean [Standing (for 1 minute prior to obtaining)] Blood Pressure Source Blood Pressure Position Blood Pressure Location Pulse Ox 100 Oxygen Delivery Method Room Air 06/04/23 21:04 06/04/23 21:15 Temperature Temperature Source Pulse Rate 88 Pulse Rate [Lying] Pulse Rate [Sitting (for 1 minute prior to obtaining)] Pulse Rate [Standing (for 1 minute prior to obtaining)] Respiratory Rate 18 Respiratory Effort Respiratory Pattern Blood Pressure 123/76 H Blood Pressure [Lying] Blood Pressure [Sitting (for 1 minute prior to obtaining)] Blood Pressure [Standing (for 1 minute prior to obtaining)] Blood Pressure Mean 92 Blood Pressure Mean [Lying] Blood Pressure Mean [Sitting (for 1 minute prior to obtaining)] Blood Pressure Mean [Standing (for 1 minute prior to obtaining)] Blood Pressure Source Blood Pressure Position Blood Pressure Location Pulse Ox 100 97 Oxygen Delivery Method Room Air Weight Weight: 203 lb 0.732 oz Body Mass Index (BMI) 26.8 Physical Exam Narrative general: Alert, Oriented x3, Cooperative, No apparent distress HEENT: Atraumatic, PERRLA, EOMI, Normocephalic Oral: Moist Mucosa Neck: Supple, No JVD Lungs: Diminished, Normal air movement, No rhonchi, No wheeze, No rales Cardiovascular: Regular rate, Regular Rhythm, Normal S1, Normal S2, No murmurs Abdomen: Soft, Non Tender, Non-Distended, No Hepato-splenomegaly Extremities: No edema, Capillary Refill Less than 3 Seconds Skin: No rashes, No breakdown, pale Musculoskeletal: No Tenderness to Palpation of Joints or Extremities Neurological: No focal neurological deficits, Motor Exam 5/5 strength throughout, Sensory exam intact to light touch and pain Psych/Mental Status: Normal Affect, Appropriate Results Lab / Micro Data 06/04/23 19:25 06/04/23 19:25 Labs: Laboratory Results - last 24 hr 06/04/23 19:25: WBC 13.0 H, RBC 2.09 L, Hgb 6.3 L, Hct 18.9 L, MCV 90.4, MCH 30.1, MCHC 33.3, RDW Std Deviation 43.8, RDW Coeff of [place] 13.2, Plt Count 202, MPV 11.6, Immature Gran % (Auto) 0.500, Neut % (Auto) 83.9 H, Lymph % (Auto) 10.5 L, [place]anan % (Auto) 4.8, Eos % (Auto) 0.1, Baso % (Auto) 0.2, Absolute Neuts (auto) 10.9 H, Absolute Lymphs (auto) 1.37, Nucleated RBC % 0, Sodium 142, Potassium 4.1, Chloride 111 H, Carbon Dioxide 22.0, Anion Gap 9, BUN 105 H*, Creatinine 1.49 H, Estim Creat Clear Calc 48.41, Est GFR (MDRD) Af Amer 59 L, Est GFR (MDRD) Non-Af 49 L, BUN/Creatinine Ratio 70.5 H, Glucose 115 H, Calcium 8.6, Total Bilirubin 0.30, AST 7 L, ALT 23, Alkaline Phosphatase 46, Troponin I High Sens 33, Total Protein 5.4 L, Albumin 3.1 L, Globulin 2.3, Albumin/GlobulinRatio 1.3 06/04/23 20:00: Ammonia 11.0 06/04/23 20:29: Blood Type A NEGATIVE, Antibody Screen NEGATIVE, Crossmatch See Detail 06/04/23 21:00: Urine Color Yellow, Urine Clarity Clear, Urine pH 6.0, Ur Specific [place] 1.015, Urine Protein Negative, Urine Glucose (UA) Normal, UrineKetones Negative, Urine Occult Blood Negative, Urine Nitrite Negative, Urine Bilirubin Negative, Urine Urobilinogen Normal, Ur Leukocyte Esterase Negative, Urine RBC 0 SEEN, Urine WBC 0 SEEN, Ur Squamous Epith Cells 0-5 SEEN, Urine Bacteria 0 SEEN, Urine Mucus 0 SEEN Micro: Microbiology 06/04/23 21:30 Stool Stool Occult Blood (ARUN) - Final Occult Blood Positive Imaging Radiology Impression Brain CT 06/04/23 19:45 IMPRESSION: Atrophy and mild periventricular white matter ischemic change. No acute bleed. If concern for acute infarct MRI recommended. Electronically Signed: Danilo Abarca MD at 20:59 EDT , Abdomen/Pelvis CT 06/04/23 19:46 IMPRESSION: Nonspecific ileus. Diverticular disease of the descending colon without evidence for acute diverticulitis No evidence for small bowel obstruction or acute appendicitis Electronically Signed: Danilo Abarca MD at 21:09 EDT , Chest X-Ray 06/04/23 20:28 IMPRESSION: No acute cardiopulmonary pathology. Electronically Signed: Danilo Abarca MD at 21:48 EDT , Assessment & Plan Assessment/Plan (1) Upper GI bleed: PLAN: Plan 1. Acute blood loss anemia secondary to upper GI bleed/SERAFIN ? Hemoglobin 6.3, receiving 2 units of blood ordered in the ER ? Continue with Protonix ? Will consult gastroenterology for EGD ? Will recheck hemoglobin in the morning ? Does not take chronic anticoagulants or antiplatelets and according to family he only took Aleve/ibuprofen yesterday for the first time for his hip pain ? Will recheck his BMP in the morning after his 2 units of blood and if creatinine is still elevated can start IV fluids at that time 2. Essential HTN/HLD ? Blood pressure stable ? Can resume his home blood pressure medications, will hold his lisinopril and hydrochlorothiazide secondary to his SERAFIN ? Continue with Lipitor 3. Dementia ? Fairly new onset ? Currently in the workup stages ? Continue with donepezil DVT: SCDs 76 minutes was spent on direct patient care, including documentation as well as chart review and collaboration with colleagues Charges/Coding Visit Charges Inpatient E&M: 51730 Init Hosp L3 06/05/23 0010 <Electronically signed by Matthew Snow MD> Cosigner Signature (if applicable): CC: Dr. Moiz Chaudhary MD; Dr. Matthew Snow MD~ Signed [facility] Work Phone: [phone] Discharge summary Author Ronak Gauthier [facility] June 04, 2023 11:01pm Note Date/Time June 04, 2023 7:5 1pm [facility] Medical Records Department [address] [place] [address] Emergency Department Summary 06/04/23 MR#: [id number] Acct: [id number] Name: HOMERO MEI Rep #:[id number] : 1945 77 From: Ronak Gauthier MD PCP: Dr. Moiz Chaudhary MD Status :ADM IN [id number] History of Present Illness Chief Complaint: Syncope Narrative Narrative: 77-year-old male past medical history of hyperlipidemia, high blood pressure, and early dementia presents with his friend and his son because of increased confusion, near syncope, nausea, and jaundice. His friend states that patient was not answering any text recalls this morning. He went over to check on him and had to knock on the window. He thought maybe that the patient had been taking a nap. To the patient's friend, patient appeared yellow to grayish in color, and seems more confused than usual. Patient relates history that over the last few days he has been nauseated and felt off. He denies any chest pain or shortness of breath. His son states that while he has early dementia, he hasnever been like this where he is confused. [facility] Medical History (Updated 06/04/23 @ 20:36 by Ronak Gauthier MD) Colon polyps Herniated disc Hyperlipidemia Hypertension Inguinal hernia Macular degeneration Home Medications atorvastatin 10 mg tablet 20 mg PO DAILY 03/17/20 [History Last Taken 06/04/23] amlodipine 2.5 mg tablet 2.5 mg PO DAILY 06/04/23 [History Last Taken 06/04/23] donepezil 5 mg tablet 5 mg PO DAILY 06/04/23 [History Last Taken 06/04/23] hydrochlorothiazide 12.5 mg capsule 25 mg PO DAILY 06/04/23 [History Last Taken 06/04/23] lisinopril 40 mg tablet 40 mg PO DAILY 06/04/23 [History Last Taken 06/04/23] Allergy/AdvReac Type Severity Reaction Status Date / Time No Known Allergies Allergy Verified 06/04/23 19:04 Family History (Updated 06/04/23 @ 22:[address] Matthew Snow MD) Other CVA (cerebral vascular accident) Surgical History (Updated 06/04/23 @ 22:[address] Matthew Snow MD) Status post inguinal hernia repair Social History Smoking Status: Never smoker ROS ROS ED ROS Narrative Constitutional: No fever, no chills. HEENT: No sore throat. No neck pain. No loss of vision. No rhinorrhea. Cardiovascular: No chest pain. No palpitations. No pedal edema. Respiratory: No cough, no shortness of breath. Abdominal: Intermittent diffuse abdominal pain. Positive nausea. No vomiting. No diarrhea. Genitourinary: No dysuria. No hematuria. Musculoskeletal: No myalgias. No arthralgias. Neurologic: No headaches. No dizziness. Positive lightheadedness and near syncope. Skin: No rash. Appears jaundiced to friend and son. Psychiatric: No depression. No anxiety. EXAM Physical Exam Narrative Exam Narrative: Afebrile. Vital signs noted. HEENT: Normocephalic. Atraumatic. PERRL, EOMI. Neck soft and supple. No pointtenderness or step off. Mild jaundice, with scleral icterus present. Cardiovascular: Regular rate and rhythm. No murmurs, rubs, or gallops appreciated. Respiratory: No tachypnea. Lungs clear to auscultation bilaterally. Gastrointestinal: Abdomen soft, nontender, with normoactive bowel sounds. No rebound or guarding. Neurological: Awake. Alert. Oriented to person, place, year, and month. Mildlyconfused when asked age. Nonfocal, nonlateralizing. Skin: No rash. Normal color. No pallor. Musculoskeletal: No pedal edema. Full range of motion extremities. Const Vital Signs: 06/04/23 19:04 06/04/23 19:06 06/04/23 19:37 Temperature 97 F L Temperature Source Temporal Pulse Rate 84 79 Pulse Rate [Lying] Pulse Rate [Sitting (for 1 minute prior to obtaining)] Pulse Rate [Standing (for 1 minute prior to obtaining)] Respiratory Rate 18 12 Respiratory Effort Normal Respiratory Pattern Normal Blood Pressure 100/47 L 104/59 L Blood Pressure [Lying] Blood Pressure [Sitting (for 1 minute prior to obtaining)] Blood Pressure [Standing (for 1 minute prior to obtaining)] Blood Pressure Mean 64 74 Blood Pressure Mean [Lying] Blood Pressure Mean [Sitting (for 1 minute prior to obtaining)] Blood Pressure Mean [Standing (for 1 minute prior to obtaining)] Blood Pressure Source Blood Pressure Position Blood Pressure Location Pulse Ox 100 93 Oxygen Delivery Method Room Air Room Air 06/04/23 20:02 06/04/23 21:15 06/04/23 22:19 Temperature 98.4 F 98.5 F Temperature Source Oral Pulse Rate 86 82 Pulse Rate [Lying] 85 Pulse Rate [Sitting (for 1 minute prior to obtaining)] 77 Pulse Rate [Standing (for 1 minute prior to obtaining)] 87 Respiratory Rate 15 14 Respiratory Effort Respiratory Pattern Blood Pressure 123/76 H 122/62 H Blood Pressure [Lying] 101/60 Blood Pressure [Sitting (for 1 minute prior to obtaining)] 86/54 L Blood Pressure [Standing (for 1 minute prior to obtaining)] 79/67 L Blood Pressure Mean 91 82 Blood Pressure Mean [Lying] 73 Blood Pressure Mean [Sitting (for 1 minute prior to obtaining)] 64 Blood Pressure Mean [Standing (for 1 minute prior to obtaining)] 71 Blood Pressure Source Monitor Blood Pressure Position Semi-Fowlers Blood Pressure Location Right Arm Pulse Ox 95 98 Oxygen Delivery Method Room Air 06/04/23 22:33 06/04/23 19:39 06/04/23 19:45 Temperature 98.4 F Temperature Source Oral Pulse Rate 85 79 81 Pulse Rate [Lying] Pulse Rate [Sitting (for 1 minute prior to obtaining)] Pulse Rate [Standing (for 1 minute prior to obtaining)] Respiratory Rate 16 14 18 Respiratory Effort Respiratory Pattern Blood Pressure 138/75 H 89/64 L Blood Pressure [Lying] Blood Pressure [Sitting (for 1 minute prior to obtaining)] Blood Pressure [Standing (for 1 minute prior to obtaining)] Blood Pressure Mean 96 70 Blood Pressure Mean [Lying] Blood Pressure Mean [Sitting (for 1 minute prior to obtaining)] Blood Pressure Mean [Standing (for 1 minute prior to obtaining)] Blood Pressure Source Monitor Blood Pressure Position Semi-Fowlers Blood Pressure Location Right Arm Pulse Ox 98 98 Oxygen Delivery Method Room Air 06/04/23 20:00 06/04/23 20:06 06/04/23 20:15 Temperature Temperature Source Pulse Rate 80 78 75 Pulse Rate [Lying] Pulse Rate [Sitting (for 1 minute prior to obtaining)] Pulse Rate [Standing (for 1 minute prior to obtaining)] Respiratory Rate 20 H 16 15 Respiratory Effort Respiratory Pattern Blood Pressure 79/67 L 101/60 117/64 Blood Pressure [Lying] Blood Pressure [Sitting (for 1 minute prior to obtaining)] Blood Pressure [Standing (for 1 minute prior to obtaining)] Blood Pressure Mean 73 74 79 Blood Pressure Mean [Lying] Blood Pressure Mean [Sitting (for 1 minute prior to obtaining)] Blood Pressure Mean [Standing (for 1 minute prior to obtaining)] Blood Pressure Source Blood Pressure Position Blood Pressure Location Pulse Ox 98 Oxygen Delivery Method Room Air 06/04/23 20:30 06/04/23 20:45 06/04/23 21:04 Temperature Temperature Source Pulse Rate 77 Pulse Rate [Lying] Pulse Rate [Sitting (for 1 minute prior to obtaining)] Pulse Rate [Standing (for 1 minute prior to obtaining)] Respiratory Rate 16 Respiratory Effort Respiratory Pattern Blood Pressure 104/55 L 125/75 H Blood Pressure [Lying] Blood Pressure [Sitting (for 1 minute prior to obtaining)] Blood Pressure [Standing (for 1 minute prior to obtaining)] Blood Pressure Mean 69 91 Blood Pressure Mean [Lying] Blood Pressure Mean [Sitting (for 1 minute prior to obtaining)] Blood Pressure Mean [Standing (for 1 minute prior to obtaining)] Blood Pressure Source Blood Pressure Position Blood Pressure Location Pulse Ox 100 100 Oxygen Delivery Method Room Air 06/04/23 21:15 Temperature Temperature Source Pulse Rate 88 Pulse Rate [Lying] Pulse Rate [Sitting (for 1 minute prior to obtaining)] Pulse Rate [Standing (for 1 minute prior to obtaining)] Respiratory Rate 18 Respiratory Effort Respiratory Pattern Blood Pressure 123/76 H Blood Pressure [Lying] Blood Pressure [Sitting (for 1 minute prior to obtaining)] Blood Pressure [Standing (for 1 minute prior to obtaining)] Blood Pressure Mean 92 Blood Pressure Mean [Lying] Blood Pressure Mean [Sitting (for 1 minute prior to obtaining)] Blood Pressure Mean [Standing (for 1 minute prior to obtaining)] Blood Pressure Source Blood Pressure Position Blood Pressure Location Pulse Ox 97 Oxygen Delivery Method Room Air MDM MDM MDM Narrative Medical decision making narrative: In the differential diagnosis is dementia versus hepatic encephalopathy. First time he has been jaundiced. I will obtain CBC and CMP. Also check for signs ofinfection with a chest x-ray to rule out pneumonia, and obtain a urinalysis to rule out urinalysis. He could be dehydrated or have intravascular volume depletion as he has borderline hypotension with systolic blood pressure of 100 and 104. He will be bolused normal saline. Given his new onset jaundice as well, do feel CT imaging of the abdomen should be obtained because he states that sometimes he is nauseated and gets abdominal pain in different areas. EKG was obtained and interpreted by myself independently as normal sinus rhythm at 79 bpm without ectopy or acute ST changes. No STEMI. Initially, the first thing that returned and I reviewed as part of his laboratory workup was his CBC which shows elevated white count of 13.0 which I think is nonspecific but of most significance is a hemoglobin of 6.3, [id number] with platelet count normal at 202. He has a normal MCV of 90. When requestioned, patient states that he had black stool a few days ago. He was consented for transfusion as concern is now for GI bleed. His discoloration could be more pallor from his low hemoglobin. I reviewed his CMP which shows sodium normal at 142, potassium 4.1, chloride of 111 which I think is nonspecific, BUN is elevated at 105 consistent with GI bleeding and creatinine elevated at 1.49 consistent with acute kidney injury. AST is low, and ALT normal. Ammonia level is normal at 11 so I do not think he has a hepatic encephalopathy. Urinalysis is negative for infection. I do not feel antibiotics are indicated. I reviewed the radiology report of the CT of the brain which shows no evidence of acute hemorrhage. Additionally I reviewed the radiology report of the CT of the abdomen pelvis which shows an ileus type pattern but no evidence of obstruction. No diverticulitis or acute appendicitis. Chaperoned rectal examination was performed which showed maroon-colored old blood, but no active brisk hemorrhage. Given that he is now GI bleed with anemia, I discussed patient with Dr. Diaz who is aware the patient. Of note, while he was here, when he went to stand he did have a syncopal episode. His orthostatics were positive. He was typed and crossmatched for blood. I discussed the patient with the hospitalist, Dr. Snow for admission. History & Record Review Discussion w/independent historian: Patient Lab Data Attestation: I reviewed the patient's lab results. Labs: Laboratory Results - last 24 hr 06/04/23 06/04/23 06/04/23 19:25 20:00 20:29 WBC 13.0 H RBC 2.09 L Hgb 6.3 L Hct 18.9 L MCV 90.4 MCH 30.1 MCHC 33.3 RDW Std Deviation 43.8 RDW Coeff of [place] 13.2 Plt Count 202 MPV 11.6 Immature Gran % (Auto) 0.500 Neut % (Auto) 83.9 H Lymph % (Auto) 10.5 L [place] % (Auto) 4.8 Eos % (Auto) 0.1 Baso % (Auto) 0.2 Absolute Neuts (auto) 10.9 H Absolute Lymphs (auto) 1.37 Nucleated RBC % 0 Sodium 142 Potassium 4.1 Chloride 111 H Carbon Dioxide 22.0 Anion Gap 9 BUN 105 H* Creatinine 1.49 H Estim Creat Clear Calc 48.41 Est GFR (MDRD) Af Amer 59 L Est GFR (MDRD) Non-Af 49 L BUN/Creatinine Ratio 70.5 H Glucose 115 H Calcium 8.6 Total Bilirubin 0.30 AST 7 L ALT 23 Alkaline Phosphatase 46 Ammonia 11.0 Troponin I High Sens 33 Total Protein 5.4 L Albumin 3.1 L Globulin 2.3 Albumin/Globulin Ratio 1.3 Urine Color Urine Clarity Urine pH Ur Specific [place] Urine Protein Urine Glucose (UA) Urine Ketones Urine Occult Blood Urine Nitrite Urine Bilirubin Urine Urobilinogen Ur Leukocyte Esterase Urine RBC Urine WBC Ur Squamous Epith Cells Urine Bacteria Urine Mucus Blood Type A NEGATIVE Antibody Screen NEGATIVE Crossmatch See Detail 06/04/23 21:00 WBC RBC Hgb Hct MCV MCH MCHC RDW Std Deviation RDW Coeff of [place] Plt Count MPV Immature Gran % (Auto) Neut % (Auto) Lymph % (Auto) [place] % (Auto) Eos % (Auto) Baso % (Auto) Absolute Neuts (auto) Absolute Lymphs (auto) Nucleated RBC % Sodium Potassium Chloride Carbon Dioxide Anion Gap BUN Creatinine Estim Creat Clear Calc Est GFR (MDRD) Af Amer Est GFR (MDRD) Non-Af BUN/Creatinine Ratio Glucose Calcium Total Bilirubin AST ALT Alkaline Phosphatase Ammonia Troponin I High Sens Total Protein Albumin Globulin Albumin/Globulin Ratio Urine Color Yellow Urine Clarity Clear Urine pH 6.0 Ur Specific [place] 1.015 Urine Protein Negative Urine Glucose (UA) Normal Urine Ketones Negative Urine Occult Blood Negative Urine Nitrite Negative Urine Bilirubin Negative Urine Urobilinogen Normal Ur Leukocyte Esterase Negative Urine RBC 0 SEEN Urine WBC 0 SEEN Ur Squamous Epith Cells 0-5 SEEN Urine Bacteria 0 SEEN Urine Mucus 0 SEEN Blood Type Antibody Screen Crossmatch Radiography Diagnostic Testing: Clinical Impression(s) from Imaging Studies Brain CT 06/04/23 19:45 IMPRESSION: Atrophy and mild periventricular white matter ischemic change. No acute bleed. If concern for acute infarct MRI recommended. Electronically Signed: Danilo Abarca MD at 20:59 EDT Reading Location ID and State: [email or web address] / [place] Tel [phone], Service support , Abdomen/Pelvis CT 06/04/23 19:46 IMPRESSION: Nonspecific ileus. Diverticular disease of the descending colon without evidence for acute diverticulitis No evidence for small bowel obstruction or acute appendicitis Electronically Signed: Danilo Abarca MD at 21:09 EDT , Chest X-Ray 06/04/23 20:28 IMPRESSION: No acute cardiopulmonary pathology. Electronically Signed: Danilo Abarca MD at 21:48 EDT , Discharge Plan Dx/Rx/DC Orders Clinical Impression: Acute kidney injury, Anemia requiring transfusions, Syncope and collapse, Orthostatic hypotension Disposition Disposition: Acute Care [facility] What to do if you have Problems For any increased pain, shortness of breath, bleeding, nausea or vomiting, chestpain, or any unexpected problems, contact your Primary Care Provider. Call [facility] ([phone]) or report to the closest Emergency Room. Call 911 if necessary. 06/04/23 230 <Electronically signed by Ronak Gauthier MD> Cosigner Signature (if applicable): CC: Dr. Moiz Chaudhary MD ~ Signed [facility] Work Phone: [phone] Discharge summary [facility] June 04, 2023 11:01pm Note Date/Time June 04, 2023 7:5 1pm [facility] Medical Records Department [address] [place] [address] Emergency Department Summary 06/04/23 MR#: [id number] Acct: [id number] Name: HOMERO MEI Rep #:[id number] : 1945 77 From: Ronak Gauthier MD PCP: Dr. Moiz Chaudhary MD Status :ADM IN Location: [address] HPI History of Present Illness Chief Complaint: Syncope Narrative Narrative: 77-year-old male past medical history of hyperlipidemia, high blood pressure, and early dementia presents with his friend and his son because of increased confusion, near syncope, nausea, and jaundice. His friend states that patient was not answering any text recalls this morning. He went over to check on him and had to knock on the window. He thought maybe that the patient had been taking a nap. To the patient's friend, patient appeared yellow to grayish in color, and seems more confused than usual. Patient relates history that over the last few days he has been nauseated and felt off. He denies any chest pain or shortness of breath. His son states that while he has early dementia, he hasnever been like this where he is confused. [facility] Medical History (Updated 06/04/23 @ 20:36 by Ronak Gauthier MD) Colon polyps Herniated disc Hyperlipidemia Hypertension Inguinal hernia Macular degeneration Home Medications atorvastatin 10 mg tablet 20 mg PO DAILY 03/17/20 [History Last Taken 06/04/23] amlodipine 2.5 mg tablet 2.5 mg PO DAILY 06/04/23 [History Last Taken 06/04/23] donepezil 5 mg tablet 5 mg PO DAILY 06/04/23 [History Last Taken 06/04/23] hydrochlorothiazide 12.5 mg capsule 25 mg PO DAILY 06/04/23 [History Last Taken 06/04/23] lisinopril 40 mg tablet 40 mg PO DAILY 06/04/23 [History Last Taken 06/04/23] Allergy/AdvReac Type Severity Reaction Status Date / Time No Known Allergies Allergy Verified 06/04/23 19:04 Family History (Updated 06/04/23 @ 22:[address] Matthew Snow MD) Other CVA (cerebral vascular accident) Surgical History (Updated 06/04/23 @ 22:[address] Matthew Snow MD) Status post inguinal hernia repair Social History Smoking Status: Never smoker ROS ROS ED ROS Narrative Constitutional: No fever, no chills. HEENT: No sore throat. No neck pain. No loss of vision. No rhinorrhea. Cardiovascular: No chest pain. No palpitations. No pedal edema. Respiratory: No cough, no shortness of breath. Abdominal: Intermittent diffuse abdominal pain. Positive nausea. No vomiting. No diarrhea. Genitourinary: No dysuria. No hematuria. Musculoskeletal: No myalgias. No arthralgias. Neurologic: No headaches. No dizziness. Positive lightheadedness and near syncope. Skin: No rash. Appears jaundiced to friend and son. Psychiatric: No depression. No anxiety. EXAM Physical Exam Narrative Exam Narrative: Afebrile. Vital signs noted. HEENT: Normocephalic. Atraumatic. PERRL, EOMI. Neck soft and supple. No pointtenderness or step off. Mild jaundice, with scleral icterus present. Cardiovascular: Regular rate and rhythm. No murmurs, rubs, or gallops appreciated. Respiratory: No tachypnea. Lungs clear to auscultation bilaterally. Gastrointestinal: Abdomen soft, nontender, with normoactive bowel sounds. No rebound or guarding. Neurological: Awake. Alert. Oriented to person, place, year, and month. Mildlyconfused when asked age. Nonfocal, nonlateralizing. Skin: No rash. Normal color. No pallor. Musculoskeletal: No pedal edema. Full range of motion extremities. Const Vital Signs: 06/04/23 19:04 06/04/23 19:06 06/04/23 19:37 Temperature 97 F L Temperature Source Temporal Pulse Rate 84 79 Pulse Rate [Lying] Pulse Rate [Sitting (for 1 minute prior to obtaining)] Pulse Rate [Standing (for 1 minute prior to obtaining)] Respiratory Rate 18 12 Respiratory Effort Normal Respiratory Pattern Normal Blood Pressure 100/47 L 104/59 L Blood Pressure [Lying] Blood Pressure [Sitting (for 1 minute prior to obtaining)] Blood Pressure [Standing (for 1 minute prior to obtaining)] Blood Pressure Mean 64 74 Blood Pressure Mean [Lying] Blood Pressure Mean [Sitting (for 1 minute prior to obtaining)] Blood Pressure Mean [Standing (for 1 minute prior to obtaining)] Blood Pressure Source Blood Pressure Position Blood Pressure Location Pulse Ox 100 93 Oxygen Delivery Method Room Air Room Air 06/04/23 20:02 06/04/23 21:15 06/04/23 22:19 Temperature 98.4 F 98.5 F Temperature Source Oral Pulse Rate 86 82 Pulse Rate [Lying] 85 Pulse Rate [Sitting (for 1 minute prior to obtaining)] 77 Pulse Rate [Standing (for 1 minute prior to obtaining)] 87 Respiratory Rate 15 14 Respiratory Effort Respiratory Pattern Blood Pressure 123/76 H 122/62 H Blood Pressure [Lying] 101/60 Blood Pressure [Sitting (for 1 minute prior to obtaining)] 86/54 L Blood Pressure [Standing (for 1 minute prior to obtaining)] 79/67 L Blood Pressure Mean 91 82 Blood Pressure Mean [Lying] 73 Blood Pressure Mean [Sitting (for 1 minute prior to obtaining)] 64 Blood Pressure Mean [Standing (for 1 minute prior to obtaining)] 71 Blood Pressure Source Monitor Blood Pressure Position Semi-Fowlers Blood Pressure Location Right Arm Pulse Ox 95 98 Oxygen Delivery Method Room Air 06/04/23 22:33 06/04/23 19:39 06/04/23 19:45 Temperature 98.4 F Temperature Source Oral Pulse Rate 85 79 81 Pulse Rate [Lying] Pulse Rate [Sitting (for 1 minute prior to obtaining)] Pulse Rate [Standing (for 1 minute prior to obtaining)] Respiratory Rate 16 14 18 Respiratory Effort Respiratory Pattern Blood Pressure 138/75 H 89/64 L Blood Pressure [Lying] Blood Pressure [Sitting (for 1 minute prior to obtaining)] Blood Pressure [Standing (for 1 minute prior to obtaining)] Blood Pressure Mean 96 70 Blood Pressure Mean [Lying] Blood Pressure Mean [Sitting (for 1 minute prior to obtaining)] Blood Pressure Mean [Standing (for 1 minute prior to obtaining)] Blood Pressure Source Monitor Blood Pressure Position Semi-Fowlers Blood Pressure Location Right Arm Pulse Ox 98 98 Oxygen Delivery Method Room Air 06/04/23 20:00 06/04/23 20:06 06/04/23 20:15 Temperature Temperature Source Pulse Rate 80 78 75 Pulse Rate [Lying] Pulse Rate [Sitting (for 1 minute prior to obtaining)] Pulse Rate [Standing (for 1 minute prior to obtaining)] Respiratory Rate 20 H 16 15 Respiratory Effort Respiratory Pattern Blood Pressure 79/67 L 101/60 117/64 Blood Pressure [Lying] Blood Pressure [Sitting (for 1 minute prior to obtaining)] Blood Pressure [Standing (for 1 minute prior to obtaining)] Blood Pressure Mean 73 74 79 Blood Pressure Mean [Lying] Blood Pressure Mean [Sitting (for 1 minute prior to obtaining)] Blood Pressure Mean [Standing (for 1 minute prior to obtaining)] Blood Pressure Source Blood Pressure Position Blood Pressure Location Pulse Ox 98 Oxygen Delivery Method Room Air 06/04/23 20:30 06/04/23 20:45 06/04/23 21:04 Temperature Temperature Source Pulse Rate 77 Pulse Rate [Lying] Pulse Rate [Sitting (for 1 minute prior to obtaining)] Pulse Rate [Standing (for 1 minute prior to obtaining)] Respiratory Rate 16 Respiratory Effort Respiratory Pattern Blood Pressure 104/55 L 125/75 H Blood Pressure [Lying] Blood Pressure [Sitting (for 1 minute prior to obtaining)] Blood Pressure [Standing (for 1 minute prior to obtaining)] Blood Pressure Mean 69 91 Blood Pressure Mean [Lying] Blood Pressure Mean [Sitting (for 1 minute prior to obtaining)] Blood Pressure Mean [Standing (for 1 minute prior to obtaining)] Blood Pressure Source Blood Pressure Position Blood Pressure Location Pulse Ox 100 100 Oxygen Delivery Method Room Air 06/04/23 21:15 Temperature Temperature Source Pulse Rate 88 Pulse Rate [Lying] Pulse Rate [Sitting (for 1 minute prior to obtaining)] Pulse Rate [Standing (for 1 minute prior to obtaining)] Respiratory Rate 18 Respiratory Effort Respiratory Pattern Blood Pressure 123/76 H Blood Pressure [Lying] Blood Pressure [Sitting (for 1 minute prior to obtaining)] Blood Pressure [Standing (for 1 minute prior to obtaining)] Blood Pressure Mean 92 Blood Pressure Mean [Lying] Blood Pressure Mean [Sitting (for 1 minute prior to obtaining)] Blood Pressure Mean [Standing (for 1 minute prior to obtaining)] Blood Pressure Source Blood Pressure Position Blood Pressure Location Pulse Ox 97 Oxygen Delivery Method Room Air MDM MDM MDM Narrative Medical decision making narrative: In the differential diagnosis is dementia versus hepatic encephalopathy. First time he has been jaundiced. I will obtain CBC and CMP. Also check for signs ofinfection with a chest x-ray to rule out pneumonia, and obtain a urinalysis to rule out urinalysis. He could be dehydrated or have intravascular volume depletion as he has borderline hypotension with systolic blood pressure of 100 and 104. He will be bolused normal saline. Given his new onset jaundice as well, do feel CT imaging of the abdomen should be obtained because he states that sometimes he is nauseated and gets abdominal pain in different areas. EKG was obtained and interpreted by myself independently as normal sinus rhythm at 79 bpm without ectopy or acute ST changes. No STEMI. Initially, the first thing that returned and I reviewed as part of his laboratory workup was his CBC which shows elevated white count of 13.0 which I think is nonspecific but of most significance is a hemoglobin of 6.3, [id number] with platelet count normal at 202. He has a normal MCV of 90. When requestioned, patient states that he had black stool a few days ago. He was consented for transfusion as concern is now for GI bleed. His discoloration could be more pallor from his low hemoglobin. I reviewed his CMP which shows sodium normal at 142, potassium 4.1, chloride of 111 which I think is nonspecific, BUN is elevated at 105 consistent with GI bleeding and creatinine elevated at 1.49 consistent with acute kidney injury. AST is low, and ALT normal. Ammonia level is normal at 11 so I do not think he has a hepatic encephalopathy. Urinalysis is negative for infection. I do not feel antibiotics are indicated. I reviewed the radiology report of the CT of the brain which shows no evidence of acute hemorrhage. Additionally I reviewed the radiology report of the CT of the abdomen pelvis which shows an ileus type pattern but no evidence of obstruction. No diverticulitis or acute appendicitis. Chaperoned rectal examination was performed which showed maroon-colored old blood, but no active brisk hemorrhage. Given that he is now GI bleed with anemia, I discussed patient with Dr. Diaz who is aware the patient. Of note, while he was here, when he went to stand he did have a syncopal episode. His orthostatics were positive. He was typed and crossmatched for blood. I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 resources that may support independence in the present and assist with needs in the future. Pt has four sons; 2 live approximately 40 minutes away from him and 2 are out of state. Per son, the home has become increasingly cluttered in recent years and pt may not be eating balanced meals (raw fruits/vegetables most commonly). Pt had a successful career and remains heavily involved in the community making the resource utilization difficult to engage in. INTERVENTION/PLAN: -Discussed RESIDENT ASSISTANT CNA supportive role/availability as member of [facility] care team. -Supportive counseling offered to address caregiver stress, adjustment to caregiver role, caregiverguilt. Discussed the process of identifying a new normal since dementia diagnosis. -Reviewed supportive services offered through The Alzheimer's Association, Family Careg[facility] [place] and Alzheimers.gov -Discussed in-home support for cleaning/organization and provided information for [place] [facility]. -Discussed home delivered meals to prioritize balanced nutrition. -Recommended medical alert for safety reasons as pt lives alone. IMPRESSION: Pleasant 77 year old year old patient. Pt and family appear able and motivated to follow up on recommendations as discussed. RESIDENT ASSISTANT CNA will remain available to address any questions/concerns. Contact information was provided. I spent a total of 40 minutes with the patient. GRISELDA [facility] documented in this encounterAcmc Healthcare System01-31-2024 Miscellaneous Notes* Telephone Encounter - Lenin Chaudhary MD - 03/21/2023 4:26 PM EST Reviewed. * Telephone Encounter - Maren Washington RPh - 03/21/2023 3:23 PM EST Pharmacy-Reviewed Medication History Patient Name:Marley Mei : 1945 Patient Contact Attempt: First attempt Adherence Packing Program Accepted? Other: The patient wants to think about it . We will follow up in a week or 2. Maren Washington RPh March 21, 2023 3:23 PM [facility] [phone] documented in this encounterAcmc Healthcare System11-27-2023 History of Present illness Narrative* Lenin Chaudhary MD - 01/15/2023 8:44 AM EST Chief Complaint Patient presents with: Follow Up: 3 month HPI Homero Mei is a 77 year old male who presents here today for Above Complaints. Accompanied today by son Indy. Previous HPI: At last OV we discussed family's concern for memory impairment and patient was found to have mild cognitive impairment based on MMSE. MRI obtained which showed moderate diffuse volume loss but was unremarkable. Labs reviewed below. Since last OV, patient has not noticed any change in memory, but son has noted patient has confusion keeping names of his kids straight and confusing them when talking to sons on the phone. Also had confusion with exit when on a long drive recently. Patient still living alone with family checking in on him. Noticed his house has become more cluttered. Still able tomanage his medications. Worried about tax season and family is helping with tax preparation. Son Indy has not noticed much change in memory over the last 3 months, but other family members have said they have. Patient not taking vitamin D supplement as recommended for vitamin D insufficiency. Does not remember talking to our nurse. BP elevated on initial check today. Did take meds today. Not checking BP at home. Depression symptoms well controlled on Zoloft. Compliant with statin. Weight down 20 lbs in the last 10 months. Not trying to lose weight. States he does not consistently eat 3 meals per day. Will be faxing his living will and healthcare power of real estate associate attorney to office. FULL CODE Interim: BP in good range to day with change to amlodipine. Not checking BP at home. Denies HTN symptoms. Weight stable over the last 3 months. Doing better eating 3 meals per day. Family coming over to have dinner with him on a regular basis. Depression symptoms controlled on Zoloft. Mild cognitive impairment: has appointment with neurology in February. Had to be rescheduled becauseappointment was originally scheduled with wrong provider. Son has noted worsening memory and gives example that when they were going through the airport he handed security [employer] advantage card instead of ID. Forgets phone and ID on a regular basis. Comes early or late to appointments. Patient still does drive and drove himself here today. Son thinks he got lost on way to his house recently. Son interested in pill packs through pharmacy. Does not have guardianship or DPOA. Past medical history, appointments, medications, allergies reviewed. Previous Medical History PAST MEDICAL HISTORY Diagnosis Date Bilateral carpal tunnel syndrome s/p release on right Bilateral inguinal hernia s/p mesh BPH (benign prostatic hyperplasia) DDD (degenerative disc disease), lumbar resolved after discectomy Depression Deviated septum s/p septoplasty Hyperlipidemia Iron deficiency anemia Irritable bowel syndrome 08/1997 improved Lipoma of neck left posterior neck CHRISTIANO (obstructive sleep apnea) [address]. [address] Crowe Personal history of colonic polyps Scalp psoriasis Unspecified essential hypertension Vitamin D insufficiency Previous Surgical History PAST SURGICAL HISTORY Procedure Laterality Date BACK SURGERY HX COLON SURGERY HX COLONOSCOPY FLX DX W/COLLJ SPEC WHEN PFRMD , 11/19, 01/24, 01/29 COLONOSCOPY FLX DX W/COLLJ SPEC WHEN PFRMD 03/22/2015 Colonoscopy-repeat 5 years COLONOSCOPY FLX DX W/COLLJ SPEC WHEN PFRMD 11/23/2020 COLONOSCOPY GEN ANES 04/12/2020 Repeat in 1 year COLONOSCOPY GEN ANES 04/26/2020 3 polyps removed. 40 mm, 5 mm, 5mm. repeat in 6 months. DISKECTOMY, LUMBAR, SINGLE SP 2006 HERNIA REPAIR HX INGUINAL HERNIA REPAIR HX 07/19/2010 bilateral inguinal hernia repair with mesh NEUROPLASTY &/TRANSPOS MEDIAN NRV CARPAL TUNNE Right 03/26/2015 Carpal tunnel decomp right PAST SURGICAL HISTORY OF Left 04/10/2019 arthroscopic knee for torn meniscus RHINP PRIM LAT&ALAR CRTLGS&/ELVTN NASAL TI 2009 Rhinoplasty SKIN BIOPSY HX Family History FAMILY HISTORY Problem Relation Age of Onset Heart Mother CHF Hypertension Mother Stroke Father Hypertension Father Patient Allergies ALLERGIES No Known Allergies Current Medications Current Outpatient Medications on File Prior to Visit Medication Sig atorvastatin (LIPITOR) 20 mg tablet Take 1 tablet by mouth once daily. sertraline (ZOLOFT) 25 mg tablet Take 1 tablet by mouth once daily. meloxicam (MOBIC) 15 mg tablet Take 1 tablet by mouth once daily. lisinopril (ZESTRIL) 40 mg tablet Take 1 tablet by mouth once daily. hydroCHLOROthiazide 12.5 mg capsule Take 2 capsules by mouth once daily. amLODIPine (NORVASC) 2.5 mg tablet Take 1 tablet by mouth once daily. fluticasone (FLONASE) 50 mcg/actuation nasal spray Use 2 Sprays in each nostril as needed. Rinse mouth after use. docusate sodium (COLACE) 100 mg capsule Take 1 capsule by mouth twice daily as needed for constipation. No current facility-administered medications on file prior to visit. Social History Social History Tobacco Use Smoking status: Never Smokeless tobacco: Never Substance Use Topics Alcohol use: No Drug use: No Review of Symptoms REVIEW OF SYSTEMS GENERAL: No weight loss, malaise or fevers RESPIRATORY: Negative for cough, hemoptysis, wheezing, COPD, dyspnea or shortness of breath CARDIOVASCULAR: Negative for chest pain, leg swelling, hypertension, CHF or palpitations GI: No nausea, vomiting, or diarrhea SKIN: Negative for lesions, rash, and itching EXAM: BP 136/74 Pulse 74 Resp 16 Wt 91.6 kg (202 lb) SpO2 99% BMI 26.65 kg/m General Appearance: Well appearing, AOx 2, (person, place) in no acute distress, well-hydrated, well nourished.. Skin: Skin color, texture, turgor normal, no suspicious rashes or lesions. Lungs: Lungs clear to auscultation. No wheezing, rhonchi, rales.. Heart: RRR without murmur, gallop, or rubs. No ectopy. Abdomen: Normal abdominal exam, Abdomen soft, non-tender. Bowel sounds normal. No masses, organomegaly. Extremities: No deformities, edema, skin discoloration, clubbing or cyanosis. Good capillary refill. . Health Maintenance List RSV Vaccine(1 - 1-dose 60+ series) Never done BP Controlled (<130/80) due on 09/06/2022 Covid-19 Vaccine(2022- season) due on 11/16/2022 Colorectal Cancer Screening due on 11/24/2023 Annual PCP Team Chronic Disease Visit due on 11/29/2023 Diabetes Screening due on 06/21/2025 DTaP,Tdap,Td Vaccine(3 - Td or Tdap) due on 09/06/2026 Lipid Screening due on 09/29/2026 Influenza Vaccine Completed Advance Directive Discussion Completed Hepatitis C Screening Completed Shingrix Vaccine Completed Pneumococcal Vaccine: 65+ Completed Data reviewed Component Latest Ref Rng & Units 05/29/2022 06/21/2022 11/28/2022 WBC 3.70 - 11.00 k/uL 8.51 RBC 4.20 - 6.00 m/uL 4.69 Hemoglobin 13.0 - 17.0 g/dL 14.1 Hematocrit 39.0 - 51.0 % 41.9 MCV 80.0 - 100.0 fL 89.3 MCH 26.0 - 34.0 pg 30.1 MCHC 30.5 - 36.0 g/dL 33.7 RDW-CV 11.5 - 15.0 % 13.3 Platelet Count 150 - 400 k/uL 225 MPV 9.0 - 12.7 fL 11.3 Neut% % 65.8 Abs Neut (ANC) 1.45 - 7.50 k/uL 5.59 Lymph% % 25.0 Abs Lymph 1.00 - 4.00 k/uL 2.13 Buchanan% % 6.3 Abs Buchanan <0.87 k/uL 0.54 Eosin% % 2.6 Abs Eosin <0.46 k/uL 0.22 Baso% % 0.2 Abs Baso <0.11 k/uL <0.03 Immature Gran % % 0.1 IMMATURE GRANS (ABS) <0.10 k/uL <0.03 NRBC /100 WBC 0.0 Absolute nRBC <0.01 k/uL <0.01 DTYPE Auto Protein, Total 6.3 - 8.0 g/dL 6.7 7.0 Albumin 3.9 - 4.9 g/dL 4.3 4.5 Calcium 8.5 - 10.2 mg/dL 9.6 9.6 Bilirubin, Total 0.2 - 1.3 mg/dL 0.4 0.4 Alkaline Phosphatase 38 - 113 U/L 70 70 AST 14 - 40 U/L 11 (L) 11 (L) ALT 10 - 54 U/L 21 17 Glucose 74 - 99 mg/dL 95 101 (H) BUN 9 - 24 mg/dL 17 14 Creatinine 0.73 - 1.22 mg/dL 1.00 0.95 Sodium 136 - 144 mmol/L 142 141 Potassium 3.7 - 5.1 mmol/L 4.1 4.1 Chloride 97 - 105 mmol/L 106 (H) 104 CO2 22 - 30 mmol/L 24 26 Anion Gap 9 - 18 mmol/L 12 11 eGFR >=60 mL/min/1.73m 79 84 Color Yellow Light Yellow Clarity Clear Clear Glucose, Urine Trace, Negative Negative Bilirubin, Urine Negative Negative Ketones, Urine Trace, Negative Negative Specific [place], Ur 1.005 - 1.030 1.015 Hemoglobin/Blood,Ur Negative, Trace Negative pH, Urine 5.0 - 8.0 6.5 Protein, Urine Trace, Negative Negative Urobilinogen Negative Negative Nitrites Negative Negative Leukest Negative, 25 Melida/uL Negative WBC, Urine 0-5 /HPF 0-5 /HPF RBC, Urine 0-3 /HPF 0-3 /HPF TSH 0.270 - 4.200 mIU/L 1.950 Vitamin D 25 Hydroxy 31.0 - 80.0 ng/mL 27.3 (L) 64.5 Vitamin B12 232 - 1,245 pg/mL 425 Component Latest Ref Rng & Units 09/29/2021 Cholesterol, Total <200 mg/dL 184 Triglyceride <150 mg/dL 80 HDL Cholesterol >39 mg/dL 41 Non HDL Cholesterol <130 mg/dL 143 (H) Fasting Time hrs 12 VLDL Cholesterol <30 mg/dL 16 TC:HDL Ratio <5.10 4.49 LDL Cholesterol <100 mg/dL 127 (H) LDL:HDL Ratio <2.54 3.10 (H) ASSESSMENT/PLAN: 1. Essential hypertension - ICD9: 401.9, ICD10: I10 (primary diagnosis) - Controlled - Continue current medications - Recommend home blood pressure monitoring, to bring results to next visit - Encouraged sodium restriction, DASH or Mediterranean diet - Recommend regular aerobic exercise - COMP METABOLIC PANEL 2. Mixed hyperlipidemia - ICD9: 272.2, ICD10: E78.2 - Controlled - Continue current medications - Counseled on healthy diet and regular exercise 3. 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rder (HCC) - ICD9: 296.31, ICD10: F33.0 Controlled on SSRI. 4. Mild cognitive impairment - ICD9: 331.83, ICD10: G31.84 Worsening memory per family. Discussed possible alzheimer's dementia. Offered Aricept for memory which they will consider. Recommended he stop driving with concerns for dementia. F/u with neurology as scheduled. Discussed getting DPOA paperwork completed through administrative technician. 5. Vitamin D insufficiency - ICD9: 268.9, ICD10: E55.9 Improved on recent labs. 6. Encounter for immunization - ICD9: V03.89, ICD10: Z23 - [employer] COVID-19 VACCINE ( SEASON) AGE 12+ YR I spent a total of 30 minutes on the date of the service which included preparing to see the patient, [id number] patient care, completing clinical documentation, obtaining and/or reviewing separately obtained history, performing a medically appropriate examination, counseling and educating the pat ient/family/caregiver, ordering medications, tests, or procedures, and communicating with other HCPs (not separately reported). Lenin Chaudhary MD documented in this encounterA[facility] System11-03-2023 Miscellaneous Notes* Telephone Encounter - Gege Rodriges RN - 12/22/2022 4:34 PM EDT Extended appt to 40 min. * Telephone Encounter - Lenin Chaudhary MD - 12/22/2022 1:01 PM EDT Reviewed. Please extend OV to 40 minutes for new concern if possible. * Telephone Encounter - Sylwia Nguyen LPN - 12/22/2022 10:26 AM EDT FYI: Inyd, son called and wanted to make you aware of the following: Pt has an apt at the of December. Family has noticed in the past couple months especially in November they are seeing a decline in pt's memory. Pt has gotten lost driving to a couple places and the confusion has increased in the evenings. Sylwia Nguyen LPN documented in this encounterAcmc Healthcare System10-25-2023 Miscellaneous Notes* Telephone Encounter - Mir Begum LPN - 12/13/2022 2:37 PM EDT [facility] Should have refills at pharm. Called and notified pt of same. He will check with pharm. Mir Begum LPN * Telephone Encounter - Divya Riley - 12/13/2022 2:01 PM EDT Patient has been identified by name and date of : Yes Requested Prescriptions Pending Prescriptions Disp Refills atorvastatin (LIPITOR) 20 mg tablet 90 tablet 1 Sig: Take 1 tablet by mouth once daily. sertraline (ZOLOFT) 25 mg tablet 90 tablet 1 Sig: Take 1 tablet by mouth once daily. meloxicam (MOBIC) 15 mg tablet 90 tablet 0 Sig: Take 1 tablet by mouth once daily. lisinopril (ZESTRIL) 40 mg tablet 90 tablet 1 Sig: Take 1 tablet by mouth once daily. RX INSTRUCTIONS: Patient aware RX will be sent to pharmacy. No need to notify patient. Divya Braswell * Telephone Encounter - Divya Riley - 12/13/2022 1:58 PM EDT Homero Mei is calling Lenin Chaudhary MD today with concern regarding Refill Request patient states that he is out of the medication and leaving for a vacation on Sunday. If you can please get these sent to pharmacy. Patient has been identified by name and birthdate. Duration of symptoms: N/A Person calling: self Call patient at: at home [phone] (home) [phone] (cell) Was an appointment scheduled: No Closing statement: Results or non-symptom based questions: Thank you for calling [facility], your call will be returned within the next business day. Divya Braswell documented in this encounterAcmc [facility] System10-16-2023 Miscellaneous Notes* Telephone Encounter - July Choi - 12/04/2022 9:58 AM EDT Patient has been identified by name and date of : Yes Requested Prescriptions Pending Prescriptions Disp Refills lisinopril (ZESTRIL) 40 mg tablet 90 tablet 1 Sig: Take 1 tablet by mouth once daily. hydroCHLOROthiazide 12.5 mg capsule 180 capsule 1 Sig: Take 2 capsules by mouth once daily. atorvastatin (LIPITOR) 20 mg tablet 90 tablet 1 Sig: Take 1 tablet by mouth once daily. meloxicam (MOBIC) 15 mg tablet 90 tablet 0 Sig: Take 1 tablet by mouth once daily. sertraline (ZOLOFT) 25 mg tablet 90 tablet 1 Sig: Take 1 tablet by mouth once daily. RX INSTRUCTIONS: Patient aware RX will be sent to [facility] pharmacy. No need to notify patient. July Choi documented in this [facility]09-25-2023 Miscellaneous Notes* Telephone Encounter - Tawana Hopkins RN - 11/13/2022 4:29 PM EDT Opened IN Error documented in this [facility]08-18-2023 Instructions* Patient Instructions* July Richards APRN.CNP - 10/06/2022 8:48 AM EDT Take 2 tablets of hydrochlorothiazide once daily documented in this [facility]08-18-2023 History of Present illness Narrative* July Richards APRN.CNP - 10/06/2022 8:42 AM EDT 10/06/2022 Patient presents with: Follow Up: 2 week blood pressure check SUBJECTIVE: This is a 76 year old that is here today for Above Complaints.. Reports he has only been taking one HCTZ daily. He reports he told pharmacy he was only taking one and they reviewed the prescription and agreed with him so that is what they put on the bottle? Not checking BP at home. Denies visual changes, lightheadedness, dizziness, facial drooping, slurred speech, extremity numbness, tingling, weakness, SOB, dyspnea or chest pain. PAST MEDICAL HISTORY Diagnosis Date Bilateral carpal tunnel syndrome s/p release on right Bilateral inguinal hernia s/p mesh BPH (benign prostatic hyperplasia) DDD (degenerative disc disease), lumbar resolved after discectomy Depression Deviated septum s/p septoplasty Hyperlipidemia Iron deficiency anemia Irritable bowel syndrome 08/1997 improved Lipoma of neck left posterior neck CHRISTIANO (obstructive sleep apnea) [address] Crowe Personal history of colonic polyps Scalp psoriasis Unspecified essential hypertension Vitamin D insufficiency ALLERGIES Patient has no known allergies. MEDICATIONS Current Outpatient Medications Medication Sig atorvastatin (LIPITOR) 20 mg tablet Take 1 tablet by mouth once daily. hydroCHLOROthiazide 12.5 mg capsule Take 2 capsules by mouth once daily. (Patient taking differently: Take 25 mg by mouth once daily. Pt taking once daily) lisinopril (ZESTRIL) 40 mg tablet Take 1 tablet by mouth once daily. meloxicam (MOBIC) 15 mg tablet Take 1 tablet by mouth once daily. sertraline (ZOLOFT) 25 mg tablet Take 1 tablet by mouth once daily. fluticasone (FLONASE) 50 mcg/actuation nasal spray Use 2 Sprays in each nostril as needed. Rinse mouth after use. docusate sodium (COLACE) 100 mg capsule Take 1 capsule by mouth twice daily as needed for constipation. lutein-zeaxanthin 25-5 mg cap Take by mouth. (Patient not taking: Reported on 06/21/2022) No current facility-administered medications for this visit. Medications and allergies reviewed by this provider. SOCIAL HISTORY Social History Tobacco Use Smoking status: Never Smokeless tobacco: Never Substance Use Topics Alcohol use: No Drug use: No REVIEW OF SYSTEMS All other reviewed and negative other than HPI. OBJECTIVE: BP 150/98 Pulse 68 Resp 16 Wt 90.3 kg (199 lb) SpO2 98% BMI 26.25 kg/m . Vital signs reviewed by this provider. APPEARANCE Well appearing, alert, in no acute distress, well-hydrated, well nourished. BP CONTROLLED (<130/80) due on 09/06/2022 INFLUENZA(1) due on 10/20/2022 ANNUAL PCP TEAM CHRONIC DISEASE VISIT due on 09/22/2023 COLORECTAL CANCER SCREENING due on 11/24/2023 DIABETES SCREEN due on 06/21/2025 DTAP,TDAP,TD(3 - Td or Tdap) due on 09/06/2026 LIPID SCREEN due on 09/29/2026 ADVANCE DIRECTIVE DISCUSSION Completed HEPATITIS C SCREENING Completed SHINGRIX VACCINE Completed COVID-19 VACCINE Completed PNEUMOCOCCAL: 65+ Completed ASSESSMENT/PLAN: 1. Essential hypertension - ICD9: 401.9, ICD10: I10 - Uncontrolled - he will increase his HCTZ to 25 mg daily - Continue current medications - Recommend home blood pressure monitoring, to bring results to next visit - Encouraged sodium restriction, DASH or Mediterranean diet - Recommend regular aerobic exercise - Follow up in 4 weeks for hypertension visit - HYDROCHLOROTHIAZIDE 12.5 MG CAPSULE July Richards APRN.CNP Prescription instructions reviewed with patient as applicable. Patient advised if symptoms do not improve or if symptoms worsen sooner, to contact their primary care physician. Potential red flag symptoms discussed with the patient. Reviewed appropriate action plan to take if red flag symptoms occur. Patient agreeable to treatment plan. I spent a total of 20 minutes on the date of the service which included preparing to see the patient, [id number] patient care, completing clinical documentation, obtaining and/or reviewing separately obtained history, and performing a medically appropriate examination. documented in this encounterAcmc Healthcare System08-03-2023 Miscellaneous Notes* Telephone Encounter - Lenin Chaudhary MD - 09/21/2022 9:26 AM EDT Reviewed. Please update chart to show we have permission to talk to his sons about his health if not completed already. . * Telephone Encounter - Arlyn Scott LPN - 09/21/2022 8:51 AM EDT Authorization paperwork received from law office will forward to Medical records to scan into chart. * Telephone Encounter - Marissa Black RN - 09/20/2022 4:24 PM EDT Son (Indy) calls to request results of memory testing/MRI results. Idny not listed on demographics/chart. No information given. Indy reports that they have paperwork that gives all 4 of patient's children authorization to patient's health records. Indy to fax copy to provider's office. Marissa Black RN documented in this encounterAcmc [facility] System08-03-2023 Instructions* Patient Instructions* Lenin Chaudhary MD - 09/21/2022 9:03 AM EDT Please take 2,000 units of vitamin D daily over the counter for vitamin d insufficiency. documented in this encounterAcmc Healthcare System08-03-2023 History of Present illness Narrative* Lenin Chaudhary MD - 09/21/2022 8:42 AM EDT Chief Complaint Patient presents with: Follow Up HPI Homero Mei is a 76 year old male who presents here today for Above Complaints. Accompanied today by son Indy. No recent falls, ER visits or hospitalizations. At last OV we discussed family's concern for memory impairment and patient was found to have mild cognitive impairment based on MMSE. MRI obtained which showed moderate diffuse volume loss but was unremarkable. Labs reviewed below. Since last OV, patient has not noticed any change in memory, but son has noted patient has confusion keeping names of his kids straight and confusing them when talking to sons on the phone. Also had confusion with exit when on a long drive recently. Patient still living alone with family checking in on him. Noticed his house has become more cluttered. Still able tomanage his medications. Worried about tax season and family is helping with tax preparation. Son Indy has not noticed much change in memory over the last 3 months, but other family members have said they have. Patient not taking vitamin D supplement as recommended for vitamin D insufficiency. Does not remember talking to our nurse. BP elevated on initial check today. Did take meds today. Not checking BP at home. Depression symptoms well controlled on Zoloft. Compliant with statin. Weight down 20 lbs in the last 10 months. Not trying to lose weight. States he does not consistently eat 3 meals per day. Will be faxing his living will and healthcare power of real estate associate attorney to office. FULL CODE. Past medical history, appointments, medications, allergies reviewed. Previous Medical History PAST MEDICAL HISTORY Diagnosis Date Bilateral carpal tunnel syndrome s/p release on right Bilateral inguinal hernia s/p mesh BPH (benign prostatic hyperplasia) DDD (degenerative disc disease), lumbar resolved after discectomy Depression Deviated septum s/p septoplasty Hyperlipidemia Iron deficiency anemia Irritable bowel syndrome 08/1997 improved CHRISTIANO (obstructive sleep apnea) [address]. [address] Crowe Personal history of colonic polyps Scalp psoriasis Unspecified essential hypertension Vitamin D insufficiency Previous Surgical History PAST SURGICAL HISTORY Procedure Laterality Date BACK SURGERY HX COLON SURGERY HX COLONOSCOPY FLX DX W/COLLJ SPEC WHEN PFRMD , 11/19, 01/24, 01/29 COLONOSCOPY FLX DX W/COLLJ SPEC WHEN PFRMD 03/22/2015 Colonoscopy-repeat 5 years COLONOSCOPY FLX DX W/COLLJ SPEC WHEN PFRMD 11/23/2020 COLONOSCOPY GEN ANES 04/12/2020 Repeat in 1 year COLONOSCOPY GEN ANES 04/26/2020 3 polyps removed. 40 mm, 5 mm, 5mm. repeat in 6 months. DISKECTOMY, LUMBAR, SINGLE SP 2006 HERNIA REPAIR HX INGUINAL HERNIA REPAIR HX 07/19/2010 bilateral inguinal hernia repair with mesh NEUROPLASTY &/TRANSPOS MEDIAN NRV CARPAL TUNNE Right 03/26/2015 Carpal tunnel decomp right PAST SURGICAL HISTORY OF Left 04/10/2019 arthroscopic knee for torn meniscus RHINP PRIM LAT&ALAR CRTLGS&/ELVTN NASAL TI 2009 Rhinoplasty SKIN BIOPSY HX Family History FAMILY HISTORY Problem Relation Age of Onset Heart Mother CHF Hypertension Mother Stroke Father Hypertension Father Patient Allergies ALLERGIES No Known Allergies Current Medications Current Outpatient Medications on File Prior to Visit Medication Sig atorvastatin (LIPITOR) 20 mg tablet Take 1 tablet by mouth once daily. hydroCHLOROthiazide 12.5 mg capsule Take 2 capsules by mouth once daily. lisinopril (ZESTRIL) 40 mg tablet Take 1 tablet by mouth once daily. meloxicam (MOBIC) 15 mg tablet Take 1 tablet by mouth once daily. sertraline (ZOLOFT) 25 mg tablet Take 1 tablet by mouth once daily. fluticasone (FLONASE) 50 mcg/actuation nasal spray Use 2 Sprays in each nostril as needed. Rinse mouth after use. docusate sodium (COLACE) 100 mg capsule Take 1 capsule by mouth twice daily as needed for constipation. lutein-zeaxanthin 25-5 mg cap Take by mouth. (Patient not taking: Reported on 06/21/2022) No current facility-administered medications on file prior to visit. Social History Social History Tobacco Use Smoking status: Never Smokeless tobacco: Never Substance Use Topics Alcohol use: No Drug use: No Review of Symptoms REVIEW OF SYSTEMS GENERAL: No weight loss, malaise or fevers RESPIRATORY: Negative for cough, hemoptysis, wheezing, COPD, dyspnea or shortness of breath CARDIOVASCULAR: Negative for chest pain, leg swelling, hypertension, CHF or palpitations GI: No nausea, vomiting, or diarrhea : No history of dysuria, frequency or incontinence, No difficulty urinating, nocturia > 1 timeper night or hematuria SKIN: Negative for lesions, rash, and itching EXAM: BP 146/84 Pulse 69 Resp 16 Wt 91 kg (200 lb 9.6 oz) SpO2 96% BMI 26.47 kg/m General Appearance: Well appearing, alert, in no acute distress, well-hydrated, well nourished.. AOx3 Skin: Skin color, texture, turgor normal, no suspicious rashes or lesions. Lungs: Lungs clear to auscultation. No wheezing, rhonchi, rales.. Heart: RRR without murmur, gallop, or rubs. No ectopy. Abdomen: Normal abdominal exam, Abdomen soft, non-tender. Bowel sounds normal. No masses, organomegaly. Extremities: No deformities, edema, skin discoloration, clubbing or cyanosis. Good capillary refill. . Health Maintenance List ADVANCE DIRECTIVE DISCUSSION Never done COVID-19 VACCINE(5 - Pfizer series) due on 04/01/2022 BP CONTROLLED (<130/80) due on 09/06/2022 INFLUENZA(1) due on 10/20/2022 ANNUAL PCP TEAM CHRONIC DISEASE VISIT due on 06/22/2023 COLORECTAL CANCER SCREENING due on 11/24/2023 DIABETES SCREEN due on 06/21/2025 DTAP,TDAP,TD(3 - Td or Tdap) due on 09/06/2026 LIPID SCREEN due on 09/29/2026 HEPATITIS C SCREENING Completed SHINGRIX VACCINE Completed PNEUMOCOCCAL: 65+ Completed Data reviewed Component Latest Ref Rng & Units 05/29/2022 06/21/2022 WBC 3.70 - 11.00 k/uL 8.51 RBC 4.20 - 6.00 m/uL 4.69 Hemoglobin 13.0 - 17.0 g/dL 14.1 Hematocrit 39.0 - 51.0 % 41.9 MCV 80.0 - 100.0 fL 89.3 MCH 26.0 - 34.0 pg 30.1 MCHC 30.5 - 36.0 g/dL 33.7 RDW-CV 11.5 - 15.0 % 13.3 Platelet Count 150 - 400 k/uL 225 MPV 9.0 - 12.7 fL 11.3 Neut% % 65.8 Abs Neut (ANC) 1.45 - 7.50 k/uL 5.59 Lymph% % 25.0 Abs Lymph 1.00 - 4.00 k/uL 2.13 Buchanan% % 6.3 Abs [place] <0.87 k/uL 0.54 Eosin% % 2.6 Abs Eosin <0.46 k/uL 0.22 Baso% % 0.2 Abs Baso <0.11 k/uL <0.03 Immature Gran % % 0.1 IMMATURE GRANS (ABS) <0.10 k/uL <0.03 NRBC /100 WBC 0.0 Absolute nRBC <0.01 k/uL <0.01 DTYPE Auto Protein, Total 6.3 - 8.0 g/dL 6.7 7.0 Albumin 3.9 - 4.9 g/dL 4.3 4.5 Calcium 8.5 - 10.2 mg/dL 9.6 9.6 Bilirubin, Total 0.2 - 1.3 mg/dL 0.4 0.4 Alkaline Phosphatase 38 - 113 U/L 70 70 AST 14 - 40 U/L 11 (L) 11 (L) ALT 10 - 54 U/L 21 17 Glucose 74 - 99 mg/dL 95 101 (H) BUN 9 - 24 mg/dL 17 14 Creatinine 0.73 - 1.22 mg/dL 1.00 0.95 Sodium 136 - 144 mmol/L 142 141 Potassium 3.7 - 5.1 mmol/L 4.1 4.1 Chloride 97 - 105 mmol/L 106 (H) 104 CO2 22 - 30 mmol/L 24 26 Anion Gap 9 - 18 mmol/L 12 11 eGFR >=60 mL/min/1.73m 79 84 Color Yellow Light Yellow Clarity Clear Clear Glucose, Urine Trace, Negative Negative Bilirubin, Urine Negative Negative Ketones, Urine Trace, Negative Negative Specific [place], Ur 1.005 - 1.030 1.015 Hemoglobin/Blood,Ur Negative, Trace Negative pH, Urine 5.0 - 8.0 6.5 Protein, Urine Trace, Negative Negative Urobilinogen Negative Negative Nitrites Negative Negative Leukest Negative, 25 Melida/uL Negative WBC, Urine 0-5 /HPF 0-5 /HPF RBC, Urine 0-3 /HPF 0-3 /HPF TSH 0.270 - 4.200 mIU/L 1.950 Vitamin D 25 Hydroxy 31.0 - 80.0 ng/mL 27.3 (L) Vitamin B12 232 - 1,245 pg/mL 425 ASSESSMENT/PLAN: 1. Mild cognitive impairment - ICD9: 331.83, ICD10: G31.84 (primary diagnosis) Symptoms stable. Patient seems more withdrawn to me at this visit. Will refer to neurology for further testing. Would not start on Namenda or Aricept at this point. Discussed with son importance of making sure patient is eating regularly, safe at home, and taking meds as directed. Call if symptoms worsening. - CONSULT TO NEUROLOGY 2. Unintentional weight loss - ICD9: 783.21, ICD10: R63.4 Discussed further workup with HIV, Hep C screening, inflammatory markers, and CXR, but they are refusing. Will work on eating 3 meals per day and discussed supplementing with boost/ensure. Recheck in3 months. 3. Essential hypertension - ICD9: 401.9, ICD10: I10 - Uncontrolled - Continue current medications - Recommend home blood pressure monitoring, to bring results to next visit - Encouraged sodium restriction, DASH or Mediterranean diet - Recommend regular aerobic exercise - Follow up in 2 weeks for hypertension visit 4. Mixed hyperlipidemia - ICD9: 272.2, ICD10: E78.2 - Controlled - Continue current medications - Counseled on healthy diet and regular exercise 5. 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rder (HCC) - ICD9: 296.31, ICD10: F33.0 Improved on zoloft. 6. CHRISTIANO (obstructive sleep apnea) - ICD9: 327.23, ICD10: G47.33 Asymptomatic without CPAP. Will monitor 7. Vitamin D insufficiency - ICD9: 268.9, ICD10: E55.9 Start 2,000 units of vitamin D daily OTC. Recheck in 3 months. 8. Encounter for immunization - ICD9: V03.89, ICD10: Z23 - [employer] COVID-19 BIVALENT VACCINE, AGE 12+ YR I spent a total of 40 minutes on the date of the service which included preparing to see the patient, [id number] patient care, completing clinical documentation, obtaining and/or reviewing separately obtained history, performing a medically appropriate examination, counseling and educating the pat ient/family/caregiver, and ordering medications, tests, or procedures. Lenin Chaudhary MD documented in this encounterAcmc Healthcare System06-06-2023 Miscellaneous Notes* Telephone Encounter - Marissa Black RN - 07/25/2022 9:20 AM EDT Patient calls and notified of results and providers instructions. Patient verbalizes understanding. Marissa Black RN * Telephone Encounter - Arlyn Scott LPN - 07/25/2022 8:34 AM EDT Phoned patient and unable to leave message due to voicemail being full. Attempt call back at later time. * Telephone Encounter - Arlyn Scott LPN - 07/25/2022 8:33 AM EDT ----- Message from Lenin Chaudhary MD sent at 07/24/2022 4:49 PM EDT ----- Brain MRI shows moderate volume loss diffusely, otherwise normal. This is consistent with aging andmild cognitive impairment and does not suggest other underlying cause which would need further workup. documented in this encounterAcmc Healthcare System05-16-2023 Miscellaneous Notes* Telephone Encounter - Elaine Marie MA - 07/04/2022 8:38 AM EDT UMM 06/21/22 NOV 09/21/22 Elaine Marie MA * Telephone Encounter - Saranya Braswell - 07/03/2022 12:43 PM EDT Patient needs all of these scripts switched from mail order pharmacy to [facility] in [place]. * Telephone Encounter - Saranya Braswell - 07/03/2022 12:43 PM EDT Patient has been identified by name and date of : Yes Requested Prescriptions Pending Prescriptions Disp Refills atorvastatin (LIPITOR) 20 mg tablet 90 tablet 1 Sig: Take 1 tablet by mouth once daily. hydroCHLOROthiazide 12.5 mg capsule 90 capsule 1 Sig: Take 2 capsules by mouth once daily. lisinopril (ZESTRIL) 40 mg tablet 90 tablet 1 Sig: Take 1 tablet by mouth once daily. meloxicam (MOBIC) 15 mg tablet 90 tablet 1 Sig: Take 1 tablet by mouth once daily. sertraline (ZOLOFT) 25 mg tablet 90 tablet 1 Sig: Take 1 tablet by mouth once daily. RX INSTRUCTIONS: Patient aware RX will be sent to pharmacy. No need to notify patient. Saranya Braswell documented in this encounterAcmc Healthcare System05-05-2023 Miscellaneous Notes* Telephone Encounter - Josette Ball LPN - 06/23/2022 10:28 AM EDT Pt returns call was given information provided. Pt voices understanding. * Telephone Encounter - Isaura Haji LPN - 06/23/2022 10:26 AM EDT Message left for patient to call office back and ask for triage nurse for update. Isaura Haji LPN * Telephone Encounter - Isaura Haji LPN - 06/23/2022 10:26 AM EDT ----- Message from Lenin Chaudhary MD sent at 06/23/2022 8:20 AM EDT ----- Normal labs aside from vitamin d insufficiency. Recommend taking 2,000 units of vitamin D daily OTCand will recheck at future OV. documented in this encounterAcmc Healthcare System05-03-2023 History of Present illness Narrative* Lenin Chaudhary MD - 06/21/2022 2:33 PM EDT Chief Complaint Patient presents with: Acute Visit: memory test. Test TSH, B12, MRI HPI Homero Mei is a 76 year old male who presents here today for Above Complaints. Accompanied today by his son Indy. Family has concerns with patient's memory. Since COVID in 2020 they have noticed some cognitive decline and brought in typed out paper with examples. Notes that he has gotten lost on a [address] to [place] which he used to be able to do on his own. Also was confused about where his hotel room was on vacation about a year ago. Having difficulty remembering numbers during tax season. Living by himself and is able to prepare meals and perform ADLs. PHQ-2 / Depression screen He in the past two weeks denies having felt down, depressed, hopeless or with little interest or pleasure in doing things. Past medical history, appointments, medications, allergies reviewed. Previous Medical History PAST MEDICAL HISTORY Diagnosis Date Bilateral carpal tunnel syndrome s/p release on right Bilateral inguinal hernia s/p mesh BPH (benign prostatic hyperplasia) DDD (degenerative disc disease), lumbar resolved after discectomy Depression Deviated septum s/p septoplasty Hyperlipidemia Iron deficiency anemia Irritable bowel syndrome 08/1997 improved CHRISTIANO (obstructive sleep apnea) [address]. [address] Crowe Personal history of colonic polyps Scalp psoriasis Unspecified essential hypertension Previous Surgical History PAST SURGICAL HISTORY Procedure Laterality Date BACK SURGERY HX COLON SURGERY HX COLONOSCOPY FLX DX W/COLLJ SPEC WHEN PFRMD , 11/19, 01/24, 01/29 COLONOSCOPY FLX DX W/COLLJ SPEC WHEN PFRMD 03/22/2015 Colonoscopy-repeat 5 years COLONOSCOPY FLX DX W/COLLJ SPEC WHEN PFRMD 11/23/2020 COLONOSCOPY GEN ANES 04/12/2020 Repeat in 1 year COLONOSCOPY GEN ANES 04/26/2020 3 polyps removed. 40 mm, 5 mm, 5mm. repeat in 6 months. DISKECTOMY, LUMBAR, SINGLE SP 2005 HERNIA REPAIR HX INGUINAL HERNIA REPAIR HX 07/19/2010 bilateral inguinal hernia repair with mesh NEUROPLASTY &/TRANSPOS MEDIAN NRV CARPAL TUNNE Right 03/26/2015 Carpal tunnel decomp right PAST SURGICAL HISTORY OF Left 04/10/2019 arthroscopic knee for torn meniscus RHINP PRIM LAT&ALAR CRTLGS&/ELVTN NASAL TI 2009 Rhinoplasty SKIN BIOPSY HX Family History FAMILY HISTORY Problem Relation Age of Onset Heart Mother CHF Hypertension Mother Stroke Father Hypertension Father Patient Allergies ALLERGIES No Known Allergies Current Medications Current Outpatient Medications on File Prior to Visit Medication Sig atorvastatin (LIPITOR) 20 mg tablet Take 1 tablet by mouth once daily. lisinopril (ZESTRIL) 40 mg tablet Take 1 tablet by mouth once daily. fluticasone (FLONASE) 50 mcg/actuation nasal spray Use 2 Sprays in each nostril as needed. Rinse mouth after use. sertraline (ZOLOFT) 25 mg tablet Take 1 tablet by mouth once daily. docusate sodium (COLACE) 100 mg capsule Take 1 capsule by mouth twice daily as needed for constipation. lisinopril (ZESTRIL) 40 mg tablet Take 1 tablet by mouth once daily. (Patient not taking: Reported on 06/21/2022) sertraline (ZOLOFT) 25 mg tablet Take 1 tablet by mouth once daily. (Patient not taking: Reported on 06/21/2022) meloxicam (MOBIC) 15 mg tablet Take 1 tablet by mouth once daily. hydroCHLOROthiazide 12.5 mg capsule Take 2 capsules by mouth once daily. hydroCHLOROthiazide (HYDRODIURIL, ESIDRIX) 12.5 mg capsule Take 2 capsules by mouth once daily. olopatadine (PATANOL) 0.1 % ophthalmic solution Use 1 Drop in both eyes twice daily. (Patient not taking: Reported on 06/21/2022) Biotin 10,000 mcg cap Take by mouth once daily. (Patient not taking: Reported on 06/21/2022) lutein-zeaxanthin 25-5 mg cap Take by mouth. (Patient not taking: Reported on 06/21/2022) No current facility-administered medications on file prior to visit. Social History Social History Tobacco Use Smoking status: Never Smokeless tobacco: Never Substance Use Topics Alcohol use: No Drug use: No Review of Symptoms REVIEW OF SYSTEMS GENERAL: No weight loss, malaise or fevers RESPIRATORY: Negative for cough, hemoptysis, wheezing, COPD, dyspnea or shortness of breath CARDIOVASCULAR: Negative for chest pain, leg swelling, hypertension, CHF or palpitations GI: No nausea, vomiting, or diarrhea : No history of dysuria, frequency or incontinence NEURO: No history of headaches, syncope, paralysis, seizures or tremors EXAM: BP 130/80 Pulse 75 Resp 16 Wt 93 kg (205 lb) SpO2 96% BMI 27.05 kg/m General Appearance: Well appearing, alert, in no acute distress, well-hydrated, well nourished.. Skin: Skin color, texture, turgor normal, no suspicious rashes or lesions. Lungs: Lungs clear to auscultation. No wheezing, rhonchi, rales.. Heart: RRR without murmur, gallop, or rubs. No ectopy. Neurologic: Negative findings: speech normal, mental status intact, cranial nerves 2-12 intact, gait, including heel, toe, and tandem walking normal, muscle tone normal, muscle strength normal, sensation to light touch and pinprick normal, reflexes normal and symmetric. Health Maintenance List ADVANCE DIRECTIVE DISCUSSION Never done ANNUAL PCP TEAM CHRONIC DISEASE VISIT due on 05/30/2023 BP CONTROLLED (<130/80) due on 05/30/2023 COLORECTAL CANCER SCREENING due on 11/24/2023 DIABETES SCREEN due on 05/29/2025 DTAP,TDAP,TD(3 - Td or Tdap) due on 09/06/2026 LIPID SCREEN due on 09/29/2026 INFLUENZA Completed HEPATITIS C SCREENING Completed SHINGRIX VACCINE Completed COVID-19 VACCINE Completed PNEUMOCOCCAL: 65+ Completed Data reviewed Component Latest Ref Rng & Units 09/29/2021 05/29/2022 Protein, Total 6.3 - 8.0 g/dL 6.8 6.7 Albumin 3.9 - 4.9 g/dL 4.6 4.3 Calcium 8.5 - 10.2 mg/dL 9.8 9.6 Bilirubin, Total 0.2 - 1.3 mg/dL 0.6 0.4 Alkaline Phosphatase 38 - 113 U/L 75 70 AST 14 - 40 U/L 12 (L) 11 (L) ALT 10 - 54 U/L 20 21 Glucose 74 - 99 mg/dL 92 95 BUN 9 - 24 mg/dL 16 17 Creatinine 0.73 - 1.22 mg/dL 1.01 1.00 Sodium 136 - 144 mmol/L 140 142 Potassium 3.7 - 5.1 mmol/L 4.2 4.1 Chloride 97 - 105 mmol/L 103 106 (H) CO2 22 - 30 mmol/L 24 24 Anion Gap 9 - 18 mmol/L 13 12 eGFR >=60 mL/min/1.73m 79 79 Cholesterol, Total <200 mg/dL 184 Triglyceride <150 mg/dL 80 HDL Cholesterol >39 mg/dL 41 Non HDL Cholesterol <130 mg/dL 143 (H) Fasting Time hrs 12 VLDL Cholesterol <30 mg/dL 16 TC:HDL Ratio <5.10 4.49 LDL Cholesterol <100 mg/dL 127 (H) LDL:HDL Ratio <2.54 3.10 (H) MiniCo/5 MMSE: ASSESSMENT/PLAN: 1. Mild cognitive impairment - ICD9: 331.83, ICD10: G31.84 (primary diagnosis) MMSE shows mild cognitive impairment. Symptoms gradually worsening per patient and family. Will initiate workup with imaging and labs. At this time he is safe at home, but family will keep close eye on him and may be accompanying him to appointments in the future. Will call with results and recommendations. - CBC + DIFF - COMP METABOLIC PANEL - TSH BLD - VITAMIN D 25 HYDROXY - VITAMIN B12 BLOOD - URINALYSIS WITH MICROSCOPIC, REFLEX CULTURE 2. Cognitive impairment, mild, so stated - ICD9: 331.83, ICD10: G31.84 - MRI BRAIN WO IVCON - URINALYSIS WITH MICROSCOPIC, REFLEX CULTURE I spent a total of 40 minutes on the date of the service which included preparing to see the patient, [id number] patient care, completing clinical documentation, obtaining and/or reviewing separately obtained history, performing a medically appropriate examination, counseling and educating the pat ient/family/caregiver, ordering medications, tests, or procedures, communicating with other HCPs (not separately reported), and communicating results to the patient/family/caregiver. Lenin Chaudhary MD documented in this encounterAcmc Healthcare System05-03-2023 Miscellaneous Notes* Telephone Encounter - Lenin Chaudhary MD - 06/21/2022 1:17 PM EDT Reviewed. * Telephone Encounter - Josette Ball LPN - 06/21/2022 10:56 AM EDT Pt's son Indy corbin has appointment with provider today at 2:05 . He and his siblings are concerned about pts cognitive state. He lives alone and they have been seeing some changes. One of hissiblings lives in [place] and they have made the trip for years pt got lost several times on trip there and back last visit. He will bring a list with him to give nurse so he does not have to bring up in front of pt. So doctor can view before going in room. documented in this encounterAcmc Healthcare System05-01-2023 Miscellaneous Notes* Telephone Encounter - Alyssa Barbie THORNTON - 06/19/2022 1:05 PM EDT Patient calling asking for refills and he said has Meloxicam 7.5 mg one tablet once daily, rx [facility]. And HCTZ 12.5 mg one capsule daily, computer shows 2 daily. Computer shows different for both rx. Pending rx to file to mail away pharmacy. Please advise Patient has been identified by name and date of : Patient phones for refill(s): Requested Prescriptions Pending Prescriptions Disp Refills lisinopril (ZESTRIL) 40 mg tablet 90 tablet 1 Sig: Take 1 tablet by mouth once daily. atorvastatin (LIPITOR) 20 mg tablet 90 tablet 1 Sig: Take 1 tablet by mouth once daily. sertraline (ZOLOFT) 25 mg tablet 90 tablet 1 Sig: Take 1 tablet by mouth once daily. meloxicam (MOBIC) 15 mg tablet 90 tablet 1 Sig: Take 1 tablet by mouth once daily. hydroCHLOROthiazide 12.5 mg capsule 90 capsule 1 Sig: Take 2 capsules by mouth once daily. Date of last office visit in primary care: 05/29/2022, has appt 06/21/2022 Last 2 Encounter Wt Readings: Date: Wt: 04/04/2022 96.4 kg (212 lb 9.6 oz) 02/23/2022 95.9 kg (211 lb 6.4 oz) Previous labs/tests for medication: Cholesterol: HDL Cholesterol (mg/dL) Date Value 09/29/2021 41 06/05/2018 51 HDL Cholesterol, Nonfasting (mg/dL) Date Value 06/30/2020 44 LDL Cholesterol (mg/dL) Date Value 09/29/2021 127 06/05/2018 108 LDL Cholesterol, Nonfasting (mg/dL) Date Value 06/30/2020 106 ALT (U/L) Date Value 05/29/2022 21 02/28/2021 17 Non HDL Cholesterol, Nonfasting (mg/dL) Date Value 06/30/2020 126 Non HDL Cholesterol (mg/dL) Date Value 09/29/2021 143 Blood Pressure: BUN (mg/dL) Date Value 05/29/2022 17 02/28/2021 13 Sodium (mmol/L) Date Value 05/29/2022 142 02/28/2021 139 Last 1 Encounter BP Readings: Date: BP: 05/29/2022 128/76[manual cuff[ Please advise. Thank you. Alyssa Valentin LPN documented in this encounterCorey Ville [id number] Miscellaneous Notes* Telephone Encounter - Paige Nam - 06/12/2022 10:48 AM EDT Patient has been identified by name and date of : Yes Requested Prescriptions Pending Prescriptions Disp Refills lisinopril (ZESTRIL) 40 mg tablet 90 tablet 1 Sig: Take 1 tablet by mouth once daily. RX INSTRUCTIONS: Patient aware RX will be sent to pharmacy. No need to notify patient. Paige Nam documented in this encounterAcmc Healthcare System04-10-2023 History of Present illness Narrative* Lenin Chaudhary MD - 05/29/2022 4:20 PM EDT Chief Complaint Patient presents with: Hypertension HPI Homero Mei is a 76 year old male who presents here today for Above Complaints.. HTN: Mr. Mei indicates that he is feeling well and denies any symptoms referable to elevated blood pressure. BP at home improving after increasing his lisinopril to 40 mg daily. Specifically denies headache, chest pain, palpitations, dyspnea, and peripheral edema. Patient denies any side effects of his medication(s) and is compliant with their regimen. He does check BP's away from this office with average BP's in the 110-120/60-70's range. He watches his diet for sodium, low fat and lowcholesterol most of the time. Last 3 Encounter BP Readings: Date: BP: 05/29/2022 124/66[home BP cuff[ 04/04/2022 152/89[YING BP[ 02/23/2022 152/84 Past medical history, appointments, medications, allergies reviewed. Previous Medical History PAST MEDICAL HISTORY Diagnosis Date Bilateral carpal tunnel syndrome s/p release on right Bilateral inguinal hernia s/p mesh BPH (benign prostatic hyperplasia) DDD (degenerative disc disease), lumbar resolved after discectomy Depression Deviated septum s/p septoplasty Hyperlipidemia Iron deficiency anemia Irritable bowel syndrome 08/1997 improved CHRISTIANO (obstructive sleep apnea) [address]. [address] Crowe Personal history of colonic polyps Scalp psoriasis Unspecified essential hypertension Previous Surgical History PAST SURGICAL HISTORY Procedure Laterality Date BACK SURGERY HX COLON SURGERY HX COLONOSCOPY FLX DX W/COLLJ SPEC WHEN PFRMD , 11/19, 01/24, 01/29 COLONOSCOPY FLX DX W/COLLJ SPEC WHEN PFRMD 03/22/2015 Colonoscopy-repeat 5 years COLONOSCOPY FLX DX W/COLLJ SPEC WHEN PFRMD 11/23/2020 COLONOSCOPY GEN ANES 04/12/2020 Repeat in 1 year COLONOSCOPY GEN ANES 04/26/2020 3 polyps removed. 40 mm, 5 mm, 5mm. repeat in 6 months. DISKECTOMY, LUMBAR, SINGLE SP 2005 HERNIA REPAIR HX INGUINAL HERNIA REPAIR HX 07/19/2010 bilateral inguinal hernia repair with mesh NEUROPLASTY &/TRANSPOS MEDIAN NRV CARPAL TUNNE Right 03/26/2015 Carpal tunnel decomp right PAST SURGICAL HISTORY OF Left 04/10/2019 arthroscopic knee for torn meniscus RHINP PRIM LAT&ALAR CRTLGS&/ELVTN NASAL TI 2009 Rhinoplasty SKIN BIOPSY HX Family History FAMILY HISTORY Problem Relation Age of Onset Heart Mother CHF Hypertension Mother Stroke Father Hypertension Father Patient Allergies ALLERGIES No Known Allergies Current Medications Current Outpatient Medications on File Prior to Visit Medication Sig lisinopril (ZESTRIL) 40 mg tablet Take 1 tablet by mouth once daily. fluticasone (FLONASE) 50 mcg/actuation nasal spray Use 2 Sprays in each nostril as needed. Rinse mouth after use. hydroCHLOROthiazide (HYDRODIURIL, ESIDRIX) 12.5 mg capsule Take 2 capsules by mouth once daily. hydroCHLOROthiazide (HYDRODIURIL, ESIDRIX) 12.5 mg capsule Take 2 capsules by mouth once daily. sertraline (ZOLOFT) 25 mg tablet Take 1 tablet by mouth once daily. atorvastatin (LIPITOR) 20 mg tablet Take 1 tablet by mouth once daily. sertraline (ZOLOFT) 25 mg tablet Take 1 tablet by mouth once daily. olopatadine (PATANOL) 0.1 % ophthalmic solution Use 1 Drop in both eyes twice daily. meloxicam (MOBIC) 15 mg tablet Take 1 tablet by mouth once daily. docusate sodium (COLACE) 100 mg capsule Take 1 capsule by mouth twice daily as needed for constipation. Biotin 10,000 mcg cap Take by mouth once daily. lutein-zeaxanthin 25-5 mg cap Take by mouth. No current facility-administered medications on file prior to visit. Social History Social History Tobacco Use Smoking status: Never Smokeless tobacco: Never Substance Use Topics Alcohol use: No Drug use: No Review of Symptoms REVIEW OF SYSTEMS GENERAL: No weight loss, malaise or fevers RESPIRATORY: Negative for cough, hemoptysis, wheezing, COPD, dyspnea or shortness of breath CARDIOVASCULAR: Negative for chest pain, leg swelling, hypertension, CHF or palpitations GI: No nausea, vomiting, or diarrhea : No history of dysuria, frequency or incontinence, No difficulty urinating, nocturia > 1 timeper night or hematuria SKIN: Negative for lesions, rash, and itching EXAM: BP 128/76 Pulse 75 Resp 16 SpO2 94% Home Cuff: 124/66 General Appearance: Well appearing, alert, in no acute distress, well-hydrated, well nourished.. Skin: Skin color, texture, turgor normal, no suspicious rashes or lesions. Lungs: Lungs clear to auscultation. No wheezing, rhonchi, rales.. Heart: RRR without murmur, gallop, or rubs. No ectopy. Extremities: No deformities, edema, skin discoloration, clubbing or cyanosis. Good capillary refill. . Health Maintenance List ADVANCE DIRECTIVE DISCUSSION Never done BP CONTROLLED (<130/80) due on 09/06/2022 ANNUAL PCP TEAM CHRONIC DISEASE VISIT due on 04/04/2023 COLORECTAL CANCER SCREENING due on 11/24/2023 DIABETES SCREEN due on 09/29/2024 DTAP,TDAP,TD(3 - Td or Tdap) due on 09/06/2026 LIPID SCREEN due on 09/29/2026 INFLUENZA Completed HEPATITIS C SCREENING Completed SHINGRIX VACCINE Completed COVID-19 VACCINE Completed PNEUMOCOCCAL: 65+ Completed Data reviewed Component Latest Ref Rng & Units 09/29/2021 Protein, Total 6.3 - 8.0 g/dL 6.8 Albumin 3.9 - 4.9 g/dL 4.6 Calcium 8.5 - 10.2 mg/dL 9.8 Bilirubin, Total 0.2 - 1.3 mg/dL 0.6 Alkaline Phosphatase 38 - 113 U/L 75 AST 14 - 40 U/L 12 (L) ALT 10 - 54 U/L 20 Glucose 74 - 99 mg/dL 92 BUN 9 - 24 mg/dL 16 Creatinine 0.73 - 1.22 mg/dL 1.01 Sodium 136 - 144 mmol/L 140 Potassium 3.7 - 5.1 mmol/L 4.2 Chloride 97 - 105 mmol/L 103 CO2 22 - 30 mmol/L 24 Anion Gap 9 - 18 mmol/L 13 eGFR >=60 mL/min/1.73m 79 Cholesterol, Total <200 mg/dL 184 Triglyceride <150 mg/dL 80 HDL Cholesterol >39 mg/dL 41 Non HDL Cholesterol <130 mg/dL 143 (H) Fasting Time hrs 12 VLDL Cholesterol <30 mg/dL 16 TC:HDL Ratio <5.10 4.49 LDL Cholesterol <100 mg/dL 127 (H) LDL:HDL Ratio <2.54 3.10 (H) ASSESSMENT/PLAN: 1. Essential hypertension - ICD9: 401.9, ICD10: I10 (primary diagnosis) - good control - Continue current medication(s) - Encouraged dietary sodium restriction/DASH diet - Recommended regular aerobic exercise. - Reviewed risks of HTN and principles of treatment - Goal of BP <140/90 - COMP METABOLIC PANEL Lenin Chaudhary MD documented in this encounterAcmc Healthcare System04-07-2023 Miscellaneous Notes* Telephone Encounter - Elaine Connell Pss - 05/26/2022 12:56 PM EDT Patient has been identified by name and date of : Yes Requested Prescriptions Pending Prescriptions Disp Refills lisinopril (ZESTRIL) 40 mg tablet 30 tablet 2 Sig: Take 1 tablet by mouth once daily. UMM-04/04/22 Labs-09/29/21 NOV-05/29/22 RX INSTRUCTIONS: Patient aware RX will be sent to pharmacy. No need to notify patient. Elaine Connell Pss documented in this encounterAcmc Healthcare System03-10-2023 Miscellaneous Notes* Telephone Encounter - Arlyn Scott LPN - 04/28/2022 2:18 PM EST UMM 04/04/22 NOV 05/02/22 * Telephone Encounter - Serena Hernandez Pss - 04/28/2022 11:54 AM EST Patient has been identified by name and date of : Yes Requested Prescriptions Pending Prescriptions Disp Refills fluticasone (FLONASE) 50 mcg/actuation nasal spray 18 g 1 Sig: Use 2 Sprays in each nostril once daily. Rinse mouth after use. RX INSTRUCTIONS: please send today. Patient aware RX will be sent to pharmacy. No need to notify patient. Serena Braswell documented in this encounterAcmc Healthcare System03-07-2023 Miscellaneous Notes* Telephone Encounter - Divya Braswell - 04/25/2022 4:45 PM EST Patient has been identified by name and date of : Yes Requested Prescriptions Pending Prescriptions Disp Refills hydroCHLOROthiazide (HYDRODIURIL, ESIDRIX) 12.5 mg capsule 90 capsule 1 Sig: Take 2 capsules by mouth once daily. hydroCHLOROthiazide (HYDRODIURIL, ESIDRIX) 12.5 mg capsule 14 capsule 0 Sig: Take 2 capsules by mouth once daily. RX INSTRUCTIONS: Patient aware RX will be sent to pharmacy. No need to notify patient. Divya Braswell documented in this encounterAcmc Healthcare System02-14-2023 Instructions* Patient Instructions* July Richards APRN.CNP - 04/04/2022 8:52 AM EST Bring BP cuff to next appointment to check against ours documented in this encounterAcmc Healthcare System02-14-2023 History of Present illness Narrative* July Richards APRN.CNP - 04/04/2022 8:19 AM EST 04/04/2022 Patient presents with: Blood Pressure: 4 week follow up SUBJECTIVE: This is a 76 year old that is here today for Above Complaints. BP uncontrolled at last office visit. Lisinopril increased. Taking and tolerating increased dose without side effects. Checked at home for 2-3 weeks after does increase and ranges 127-145/80's. Denies visual changes, headaches, lightheadedness, dizziness, slurred speech, facial drooping, SOB, dyspnea, chest pain, palpitations, extremity, numbness, tingling or weakness. PAST MEDICAL HISTORY Diagnosis Date Bilateral carpal tunnel syndrome s/p release on right Bilateral inguinal hernia s/p mesh BPH (benign prostatic hyperplasia) DDD (degenerative disc disease), lumbar resolved after discectomy Depression Deviated septum s/p septoplasty Hyperlipidemia Iron deficiency anemia Irritable bowel syndrome 08/1997 improved CHRISTIANO (obstructive sleep apnea) [address] Crowe Personal history of colonic polyps Scalp psoriasis Unspecified essential hypertension ALLERGIES Patient has no known allergies. MEDICATIONS Current Outpatient Medications Medication Sig lisinopril (ZESTRIL, PRINIVIL) 20 mg tablet Take 1 tablet by mouth once daily. sertraline (ZOLOFT) 25 mg tablet Take 1 tablet by mouth once daily. atorvastatin (LIPITOR) 20 mg tablet Take 1 tablet by mouth once daily. sertraline (ZOLOFT) 25 mg tablet Take 1 tablet by mouth once daily. olopatadine (PATANOL) 0.1 % ophthalmic solution Use 1 Drop in both eyes twice daily. hydroCHLOROthiazide (HYDRODIURIL, ESIDRIX) 12.5 mg capsule Take 2 capsules by mouth once daily. meloxicam (MOBIC) 15 mg tablet Take 1 tablet by mouth once daily. fluticasone (FLONASE) 50 mcg/actuation nasal spray Use 2 Sprays in each nostril once daily. Rinse mouth after use. (Patient taking differently: Use 2 Sprays in each nostril as needed. Rinse mouth after use.) docusate sodium (COLACE) 100 mg capsule Take 1 capsule by mouth twice daily as needed for constipation. Biotin 10,000 mcg cap Take by mouth once daily. lutein-zeaxanthin 25-5 mg cap Take by mouth. No current facility-administered medications for this visit. Medications and allergies reviewed by this provider. SOCIAL HISTORY Social History Tobacco Use Smoking status: Never Smokeless tobacco: Never Substance Use Topics Alcohol use: No Drug use: No REVIEW OF SYSTEMS All other reviewed and negative other than HPI. OBJECTIVE: BP 160/98 Pulse 71 Resp 16 Wt 96.4 kg (212 lb 9.6 oz) SpO2 98% BMI 28.05 kg/m . Vital signs reviewed by this provider. APPEARANCE Well appearing, alert, in no acute distress, well-hydrated, well nourished. ADVANCE DIRECTIVE DISCUSSION Never done BP CONTROLLED (<130/80) due on 09/06/2022 ANNUAL PCP TEAM CHRONIC DISEASE VISIT due on 02/23/2023 COLORECTAL CANCER SCREENING due on 11/24/2023 DIABETES SCREEN due on 09/29/2024 DTAP,TDAP,TD(3 - Td or Tdap) due on 09/06/2026 LIPID SCREEN due on 09/29/2026 INFLUENZA Completed HEPATITIS C SCREENING Completed SHINGRIX VACCINE Completed COVID-19 VACCINE Completed PNEUMOCOCCAL: 65+ Completed ASSESSMENT/PLAN: 1. Hypertension, unspecified type - ICD9: 401.9, ICD10: I10 - suboptimal control - Increase lisinopril (Zestril/Prinivil) - Encouraged dietary sodium restriction/DASH diet - Recommended regular aerobic exercise. - Recommend home blood pressure monitoring, to bring results in on next visit - Follow up in 1 month for BP recheck. - Goal of BP <140/90 - Recommend home or pharmacy blood pressure monitoring - Recommended no refined sugar, low refined starch, healthy oil intake (olive oil), healthy protein(fish) along the lines of the Mediterranean diet. - LISINOPRIL 40 MG TABLET July Richards APRN.CNP Prescription instructions reviewed with patient as applicable. Patient advised if symptoms do not improve or if symptoms worsen sooner, to contact their primary care physician. Potential red flag symptoms discussed with the patient. Reviewed appropriate action plan to take if red flag symptoms occur. Patient agreeable to treatment plan. I spent a total of 20 minutes on the date of the service which included preparing to see the patient, [id number] patient care, completing clinical documentation, obtaining and/or reviewing separately obtained history, performing a medically appropriate examination, counseling and educating the pat ient/family/caregiver, and ordering medications, tests, or procedures. documented in this encounterAcmc Healthcare System01-05-2023 Instructions* Patient Instructions* Lenin Chaudhary MD - 02/23/2022 8:19 AM EST Stick to low sodium diet, less than 2,000 mg per day to help control your blood pressure. documented in this encounterAcmc Healthcare System01-05-2023 History of Present illness Narrative* Lenin Chaudhary MD - 02/23/2022 8:08 AM EST Chief Complaint Patient presents with: Follow Up: 4 week-BP recheck HPI Homero Mei is a 76 year old male who presents here today for Above Complaints.. HTN: Mr. Mei indicates that he is feeling well and denies any symptoms referable to elevated blood pressure. Specifically denies headache, chest pain, palpitations, dyspnea, and peripheral edema. Patient denies any side effects of his medication(s) and is compliant with their regimen. He does check BP's away from this office with average BP's in similar range to today. Homero gets minimalexercise. He watches his diet for sodium, low fat and low cholesterol generally not very much. Last 3 Encounter BP Readings: Date: BP: 02/23/2022 152/84 01/25/2022 163/88[YING BP[ 12/13/2021 166/93[BP YING[ Past medical history, appointments, medications, allergies reviewed. Previous Medical History PAST MEDICAL HISTORY Diagnosis Date Bilateral carpal tunnel syndrome s/p release on right Bilateral inguinal hernia s/p mesh BPH (benign prostatic hyperplasia) DDD (degenerative disc disease), lumbar resolved after discectomy Depression Deviated septum s/p septoplasty Hyperlipidemia Iron deficiency anemia Irritable bowel syndrome 08/1997 improved CHRISTIANO (obstructive sleep apnea) [address]. [address] Crowe Personal history of colonic polyps Scalp psoriasis Unspecified essential hypertension Previous Surgical History PAST SURGICAL HISTORY Procedure Laterality Date BACK SURGERY HX COLON SURGERY HX COLONOSCOPY FLX DX W/COLLJ SPEC WHEN PFRMD , 11/19, 01/24, 01/29 COLONOSCOPY FLX DX W/COLLJ SPEC WHEN PFRMD 03/22/2015 Colonoscopy-repeat 5 years COLONOSCOPY FLX DX W/COLLJ SPEC WHEN PFRMD 11/23/2020 COLONOSCOPY GEN ANES 04/12/2020 Repeat in 1 year COLONOSCOPY GEN ANES 04/26/2020 3 polyps removed. 40 mm, 5 mm, 5mm. repeat in 6 months. DISKECTOMY, LUMBAR, SINGLE SP 2006 HERNIA REPAIR HX INGUINAL HERNIA REPAIR HX 07/19/2010 bilateral inguinal hernia repair with mesh NEUROPLASTY &/TRANSPOS MEDIAN NRV CARPAL TUNNE Right 03/26/2015 Carpal tunnel decomp right PAST SURGICAL HISTORY OF Left 04/10/2019 arthroscopic knee for torn meniscus RHINP PRIM LAT&ALAR CRTLGS&/ELVTN NASAL TI 2009 Rhinoplasty SKIN BIOPSY HX Family History FAMILY HISTORY Problem Relation Age of Onset Heart Mother CHF Hypertension Mother Stroke Father Hypertension Father Patient Allergies ALLERGIES No Known Allergies Current Medications Current Outpatient Medications on File Prior to Visit Medication Sig lisinopril (ZESTRIL, PRINIVIL) 10 mg tablet Take 1 tablet by mouth once daily. sertraline (ZOLOFT) 25 mg tablet Take 1 tablet by mouth once daily. atorvastatin (LIPITOR) 20 mg tablet Take 1 tablet by mouth once daily. atorvastatin (LIPITOR) 20 mg tablet Take 1 tablet by mouth daily at bedtime. For cholesterol. sertraline (ZOLOFT) 25 mg tablet Take 1 tablet by mouth once daily. olopatadine (PATANOL) 0.1 % ophthalmic solution Use 1 Drop in both eyes twice daily. hydroCHLOROthiazide (HYDRODIURIL, ESIDRIX) 12.5 mg capsule Take 2 capsules by mouth once daily. meloxicam (MOBIC) 15 mg tablet Take 1 tablet by mouth once daily. fluticasone (FLONASE) 50 mcg/actuation nasal spray Use 2 Sprays in each nostril once daily. Rinse mouth after use. (Patient taking differently: Use 2 Sprays in each nostril as needed. Rinse mouth after use.) docusate sodium (COLACE) 100 mg capsule Take 1 capsule by mouth twice daily as needed for constipation. Biotin 10,000 mcg cap Take by mouth once daily. lutein-zeaxanthin 25-5 mg cap Take by mouth. No current facility-administered medications on file prior to visit. Social History Social History Tobacco Use Smoking status: Never Smokeless tobacco: Never Substance Use Topics Alcohol use: No Drug use: No Review of Symptoms REVIEW OF SYSTEMS GENERAL: No weight loss, malaise or fevers RESPIRATORY: Negative for cough, hemoptysis, wheezing, COPD, dyspnea or shortness of breath CARDIOVASCULAR: Negative for chest pain, leg swelling, hypertension, CHF or palpitations GI: No nausea, vomiting, or diarrhea SKIN: Negative for lesions, rash, and itching EXAM: BP 152/84 Pulse 75 Resp 16 Wt 95.9 kg (211 lb 6.4 oz) SpO2 98% BMI 27.89 kg/m General Appearance: Well appearing, alert, in no acute distress, well-hydrated, well nourished.. Skin: Skin color, texture, turgor normal, no suspicious rashes or lesions. Lungs: Lungs clear to auscultation. No wheezing, rhonchi, rales.. Heart: RRR without murmur, gallop, or rubs. No ectopy. Abdomen: Normal abdominal exam, Abdomen soft, non-tender. Bowel sounds normal. No masses, organomegaly. Extremities: No deformities, edema, skin discoloration, clubbing or cyanosis. Good capillary refill. . Health Maintenance List ADVANCE DIRECTIVE DISCUSSION Never done BP CONTROLLED (<130/80) due on 09/06/2022 ANNUAL PCP TEAM CHRONIC DISEASE VISIT due on 01/25/2023 COLORECTAL CANCER SCREENING due on 11/24/2023 DIABETES SCREEN due on 09/29/2024 DTAP,TDAP,TD(3 - Td or Tdap) due on 09/06/2026 LIPID SCREEN due on 09/29/2026 INFLUENZA Completed HEPATITIS C SCREENING Completed SHINGRIX VACCINE Completed COVID-19 VACCINE Completed PNEUMOCOCCAL: 65+ Completed ASSESSMENT/PLAN: 1. Essential hypertension - ICD9: 401.9, ICD10: I10 - poor control - Increase lisinopril (Zestril/Prinivil) - Encouraged dietary sodium restriction/DASH diet - Recommended regular aerobic exercise. - Recommend home blood pressure monitoring, to bring results in on next visit - Call in 2 weeks for updated BP readings - Reviewed risks of HTN and principles of treatment - Goal of BP <140/90 - LISINOPRIL 20 MG TABLET Lenin Chaudhary MD documented in this encounterAcmc Healthcare System01-04-2023 Miscellaneous Notes* Telephone Encounter - Marissa Black RN - 02/22/2022 3:42 PM EST Patient has been identified by name and date of : Yes, Provider Marissa Black RN Date 02/22/2022 Time 3:42 pm Pharmacy phones for refill(s): Requested Prescriptions Pending Prescriptions Disp Refills lisinopril (ZESTRIL, PRINIVIL) 10 mg tablet 90 tablet Sig: Take 1 tablet by mouth once daily. [facility] calls to request 90 day prescription. Pended. Refill needs filled in. Date of last office visit with pcp: 01/25/2022 Future appt: 02/23/2022 Last 2 Encounter Wt Readings: Date: Wt: 01/25/2022 97.2 kg (214 lb 3.2 oz) 12/13/2021 99 kg (218 lb 3.2 oz) Previous labs/tests for medication: Blood Pressure: BUN (mg/dL) Date Value 09/29/2021 16 02/28/2021 13 Sodium (mmol/L) Date Value 09/29/2021 140 02/28/2021 139 Last 1 Encounter BP Readings: Date: BP: 01/25/2022 163/88[YING BP[ Liver Function: ALT (U/L) Date Value 09/29/2021 20 02/28/2021 17 AST (U/L) Date Value 09/29/2021 12 02/28/2021 10 Please advise. Thank you. Marissa Black RN documented in this encounterAcmc Healthcare System12-21-2022 Miscellaneous Notes* Telephone Encounter - Sylwia Miriam Nguyen LPN - 02/08/2022 11:21 AM EST [facility] pharmacy called and requested 3 month supply with refills to be sent to their pharmacy and pt will need short term prescription sent to local pharmacy. Patient has been identified by name and date of : Yes Pharmacy phones for refill(s): Requested Prescriptions Pending Prescriptions Disp Refills sertraline (ZOLOFT) 25 mg tablet 90 tablet 1 Sig: Take 1 tablet by mouth once daily. atorvastatin (LIPITOR) 20 mg tablet 90 tablet 1 Sig: Take 1 tablet by mouth once daily. atorvastatin (LIPITOR) 20 mg tablet 15 tablet 0 Sig: Take 1 tablet by mouth daily at bedtime. For cholesterol. sertraline (ZOLOFT) 25 mg tablet 15 tablet 0 Sig: Take 1 tablet by mouth once daily. Date of last office visit in primary care: 01/25/22 next apt 02/22/22 Last 2 Encounter Wt Readings: Date: Wt: 01/25/2022 97.2 kg (214 lb 3.2 oz) 12/13/2021 99 kg (218 lb 3.2 oz) Previous labs/tests for medication: Cholesterol: HDL Cholesterol (mg/dL) Date Value 09/29/2021 41 06/05/2018 51 HDL Cholesterol, Nonfasting (mg/dL) Date Value 06/30/2020 44 LDL Cholesterol (mg/dL) Date Value 09/29/2021 127 06/05/2018 108 LDL Cholesterol, Nonfasting (mg/dL) Date Value 06/30/2020 106 ALT (U/L) Date Value 09/29/2021 20 02/28/2021 17 Non HDL Cholesterol, Nonfasting (mg/dL) Date Value 06/30/2020 126 Non HDL Cholesterol (mg/dL) Date Value 09/29/2021 143 Thank you. Sylwia Nguyen LPN documented in this encounterAcmc Healthcare System12-07-2022 History of Present illness Narrative* July Richards, LUTHER.POLISHING MACHINE TENDER - 01/25/2022 8:41 AM EST 01/25/2022 Patient presents with: Eye Problem: Bilateral eyes x1 week with redness, clear drainage SUBJECTIVE: This is a 76 year old that is here today for Above Complaints. BP elevated on intial check. Reports he has been monitoring at home some and getting readings around 140-150/80-90's. Denies visual changes, headaches, slurred speech, confusion, extremity numbness, tingling or weakness For the last week has had some redness to bilateral eyes. Today redness seems better. Some drainageand crusting when wakes up. Using OTC homeopathic drops which has helped some. Admits he did have some sinus drainage recently but seems to be getting better. [facility] Denies eyes itching, visual changes, or eye pain PAST MEDICAL HISTORY Diagnosis Date Bilateral carpal tunnel syndrome s/p release on right Bilateral inguinal hernia s/p mesh BPH (benign prostatic hyperplasia) DDD (degenerative disc disease), lumbar resolved after discectomy Depression Deviated septum s/p septoplasty Hyperlipidemia Iron deficiency anemia Irritable bowel syndrome 08/1997 improved CHRISTIANO (obstructive sleep apnea) [address] Crowe Personal history of colonic polyps Scalp psoriasis Unspecified essential hypertension ALLERGIES Patient has no known allergies. MEDICATIONS Current Outpatient Medications Medication Sig hydroCHLOROthiazide (HYDRODIURIL, ESIDRIX) 12.5 mg capsule Take 2 capsules by mouth once daily. meloxicam (MOBIC) 15 mg tablet Take 1 tablet by mouth once daily. sertraline (ZOLOFT) 25 mg tablet Take 1 tablet by mouth once daily. atorvastatin (LIPITOR) 20 mg tablet Take 1 tablet by mouth once daily. fluticasone (FLONASE) 50 mcg/actuation nasal spray Use 2 Sprays in each nostril once daily. Rinse mouth after use. (Patient taking differently: Use 2 Sprays in each nostril as needed. Rinse mouth after use.) docusate sodium (COLACE) 100 mg capsule Take 1 capsule by mouth twice daily as needed for constipation. Biotin 10,000 mcg cap Take by mouth once daily. lutein-zeaxanthin 25-5 mg cap Take by mouth. No current facility-administered medications for this visit. Medications and allergies reviewed by this provider. SOCIAL HISTORY Social History Tobacco Use Smoking status: Never Smokeless tobacco: Never Substance Use Topics Alcohol use: No Drug use: No REVIEW OF SYSTEMS All other reviewed and negative other than HPI. OBJECTIVE: BP 163/88 Pulse 69 Temp 36.4 C (97.5 F) Resp 16 Wt 97.2 kg (214 lb 3.2 oz) SpO2 98% BMI28.26 kg/m . Vital signs reviewed by this provider. APPEARANCE Well appearing, alert, in no acute distress, well-hydrated, well nourished. EYES PERRLA, mild conjunctiva redness bilaterally. Watery drainage observed. EARS External ears normal, canals clear HEART RRR with normal S1 and S2, no murmurs, no gallops, no JVD appreciated LUNG clear to auscultation. No wheezes, rhonchi, or rales EXTREMITIES Extremities normal, No deformities, No skin discoloration, and No edema SKIN Skin color, texture, turgor normal, no suspicious rashes or lesions to exposed skin ADVANCE DIRECTIVE DISCUSSION Never done BP CONTROLLED (<130/80) due on 09/06/2022 ANNUAL PCP TEAM CHRONIC DISEASE VISIT due on 01/25/2023 COLORECTAL CANCER SCREENING due on 11/24/2023 DIABETES SCREEN due on 09/29/2024 DTAP,TDAP,TD(3 - Td or Tdap) due on 09/06/2026 LIPID SCREEN due on 09/29/2026 INFLUENZA Completed HEPATITIS C SCREENING Completed SHINGRIX VACCINE Completed COVID-19 VACCINE Completed PNEUMOCOCCAL: 65+ Completed ASSESSMENT/PLAN: 1. Allergic conjunctivitis of both eyes - ICD9: 372.14, ICD10: H10.13 (primary diagnosis) - see medication orders - Instructed to call if high fever, development of periorbital redness or swelling, eye pain, visual changes, concerns or if symptoms persist. - OLOPATADINE 0.1 % EYE DROPS 2. Hypertension, unspecified type - ICD9: 401.9, ICD10: I10 - poor control - Continue current medication(s) - Add lisinopril (Zestril/Prinivil) - Encouraged dietary sodium restriction/DASH diet - Recommended regular aerobic exercise. - Recommend home blood pressure monitoring, to bring results in on next visit - Recheck in one month sooner should new symptoms or problems arise. - Goal of BP <140/90 - Recommend home or pharmacy blood pressure monitoring - Recommended no refined sugar, low refined starch, healthy oil intake (olive oil), healthy protein(fish) along the lines of the Mediterranean diet. - LISINOPRIL 10 MG TABLET July Richards APRN.CNP Prescription instructions reviewed with patient as applicable. Patient advised if symptoms do not improve or if symptoms worsen sooner, to contact their primary care physician. Potential red flag symptoms discussed with the patient. Reviewed appropriate action plan to take if red flag symptoms occur. Patient agreeable to treatment plan. I spent a total of 30 minutes on the date of the service which included preparing to see the patient, [id number] patient care, completing clinical documentation, obtaining and/or reviewing separately obtained history, performing a medically appropriate examination, counseling and educating the pat ient/family/caregiver, and ordering medications, tests, or procedures. documented in this encounterAcmc Healthcare System12-04-2022 Miscellaneous Notes* Telephone Encounter - Rodolfo Ellis RN - 01/22/2022 12:28 PM EST Reason for call: [place] eyes Outcome: Patient confirmed he will call PCP office when open, declined offer to schedule appointment, and was advised that he may [facility] to [facility], if needed. Reason for Disposition [1] Eye with yellow or green discharge, or eyelashes stick together AND [2] NO PCP standing order to call in antibiotic eye drops (Exception: [place]; continue triage.) Nurse discretion: Answer Assessment - Initial Assessment Questions 1. EYE DISCHARGE: yes, woke up with crusty eyes and clear liquid drainage from eyes when he bendsover 2. REDNESS OF SCLERA: yes 3. EYELIDS: redness and a little swollen 4. VISION: normal 5. PAIN: no 6. CONTACT LENS: yes, not wearing now 7. OTHER SYMPTOMS: no Protocols used: Eye - Pus or [id number] documented in this encounterAcmc Healthcare System10-25-2022 History of Present illness Narrative* July Richards, LUTHER.POLISHING MACHINE TENDER - 12/13/2021 7:55 AM EDT 12/13/2021 Patient presents with: Blood Pressure: Recheck SUBJECTIVE: This is a 75 year old that is here today for Above Complaints. BP elevated at last office check. No medication changes at that time. Taking medications as prescribed. Was checking BP at home once in the morning and not really sure what his readings were, thinks 180-190's/ ?. Denies visual changes, headaches, extremity numbness, tingling, weakness, slurred speech, facial drooping, confusion, SOB, dyspnea, chest pain, palpitations or leg edema PAST MEDICAL HISTORY Diagnosis Date Bilateral carpal tunnel syndrome s/p release on right Bilateral inguinal hernia s/p mesh BPH (benign prostatic hyperplasia) DDD (degenerative disc disease), lumbar resolved after discectomy Depression Deviated septum s/p septoplasty Hyperlipidemia Iron deficiency anemia Irritable bowel syndrome 08/1997 improved CHRISTIANO (obstructive sleep apnea) [address] Crowe Personal history of colonic polyps Scalp psoriasis Unspecified essential hypertension ALLERGIES Patient has no known allergies. MEDICATIONS Current Outpatient Medications Medication Sig meloxicam (MOBIC) 15 mg tablet Take 1 tablet by mouth once daily. sertraline (ZOLOFT) 25 mg tablet Take 1 tablet by mouth once daily. atorvastatin (LIPITOR) 20 mg tablet Take 1 tablet by mouth once daily. hydroCHLOROthiazide (HYDRODIURIL, ESIDRIX) 12.5 mg capsule Take 1 capsule by mouth once daily. fluticasone (FLONASE) 50 mcg/actuation nasal spray Use 2 Sprays in each nostril once daily. Rinse mouth after use. (Patient taking differently: Use 2 Sprays in each nostril as needed. Rinse mouth after use.) docusate sodium (COLACE) 100 mg capsule Take 1 capsule by mouth twice daily as needed for constipation. Biotin 10,000 mcg cap Take by mouth once daily. lutein-zeaxanthin 25-5 mg cap Take by mouth. No current facility-administered medications for this visit. Medications and allergies reviewed by this provider. SOCIAL HISTORY Social History Tobacco Use Smoking status: Never Smokeless tobacco: Never Substance Use Topics Alcohol use: No Drug use: No REVIEW OF SYSTEMS All other reviewed and negative other than HPI. OBJECTIVE: BP 166/93 Pulse 62 Resp 16 Wt 99 kg (218 lb 3.2 oz) SpO2 97% BMI 28.79 kg/m . Vital signsreviewed by this provider. APPEARANCE Well appearing, alert, in no acute distress, well-hydrated, well nourished. EYES conjunctiva and sclera normal. HEART RRR with normal S1 and S2, no murmurs, no gallops, no JVD appreciated LUNG clear to auscultation. No wheezes, rhonchi, or rales SKIN Skin color, texture, turgor normal, no suspicious rashes or lesions ADVANCE DIRECTIVE DISCUSSION Never done BP CONTROLLED (<130/80) due on 09/06/2022 ANNUAL PCP TEAM CHRONIC DISEASE VISIT due on 12/13/2022 COLORECTAL CANCER SCREENING due on 11/24/2023 DIABETES SCREEN due on 09/29/2024 DTAP,TDAP,TD(3 - Td or Tdap) due on 09/06/2026 LIPID SCREEN due on 09/29/2026 INFLUENZA Completed HEPATITIS C SCREENING Completed SHINGRIX VACCINE Completed COVID-19 VACCINE Completed PNEUMOCOCCAL: 65+ Completed ASSESSMENT/PLAN: 1. Essential hypertension - ICD9: 401.9, ICD10: I10 - suboptimal control - Increase HCTZ - Encouraged dietary sodium restriction/DASH diet - Recommended regular aerobic exercise. - Goal of BP <140/90 - Recommend home or pharmacy blood pressure monitoring - Recommended no refined sugar, low refined starch, healthy oil intake (olive oil), healthy protein(fish) along the lines of the Mediterranean diet. - HYDROCHLOROTHIAZIDE 12.5 MG CAPSULE - monitor BP at home for next two weeks, update me with BP readings via my chart, sooner if having side effects from medication July Richards APRN.CNP Prescription instructions reviewed with patient as applicable. Patient advised if symptoms do not improve or if symptoms worsen sooner, to contact their primary care physician. Potential red flag symptoms discussed with the patient. Reviewed appropriate action plan to take if red flag symptoms occur. Patient agreeable to treatment plan. I spent a total of 25 minutes on the date of the service which included preparing to see the patient, [id number] patient care, completing clinical documentation, obtaining and/or reviewing separately obtained history, performing a medically appropriate examination, counseling and educating the pat ient/family/caregiver, and ordering medications, tests, or procedures. documented in this encounterAcmc Healthcare System10-14-2022 Miscellaneous Notes* Telephone Encounter - July Richards APRN.CNP - 12/02/2021 3:25 PM EDT Prescription for 90 day supply sent. July Richards APRN.CNP * Telephone Encounter - Gege Rodriges RN - 12/02/2021 2:51 PM EDT [facility] reports patient is requesting a 90 day supply of meloxicam. Pended. Last ov w/pcp: 11-29-21 documented in this encounterAcmc Healthcare System10-11-2022 History of Present illness Narrative* Lenin Chaudhary MD - 11/29/2021 11:49 AM EDT Chief Complaint Patient presents with: Follow Up: Wanting to discuss medicatons. And discuss the right knee. HPI Homero Mei is a 75 year old male who presents here today for Above Complaints.. Recommended patient come in because he was requesting rx for higher dose of his Meloxicam and had not been seen recently for pain complaint. Today, he states that has been taking this medication for a couple years now and thinks was started around when he had COVID. Also [facility] and found to have pain over his IT Band of his right kneeand had been treated with injection for right hip pain which worked wonders. Recommended PT and injection in 5 weeks for IT band, but has not followed up. No scheduled f/u with ortho since. Has not had any other falls/injuries. Admits to feeling like knee is going to give out, but has notactually given out. Denies catching or locking up. Past medical history, appointments, medications, allergies reviewed. Previous Medical History PAST MEDICAL HISTORY Diagnosis Date Bilateral carpal tunnel syndrome s/p release on right Bilateral inguinal hernia s/p mesh BPH (benign prostatic hyperplasia) DDD (degenerative disc disease), lumbar resolved after discectomy Depression Deviated septum s/p septoplasty Hyperlipidemia Iron deficiency anemia Irritable bowel syndrome 08/1997 improved CHRISTIANO (obstructive sleep apnea) [address]. [address] Crowe Personal history of colonic polyps Scalp psoriasis Unspecified essential hypertension Previous Surgical History PAST SURGICAL HISTORY Procedure Laterality Date BACK SURGERY HX COLON SURGERY HX COLONOSCOPY FLX DX W/COLLJ SPEC WHEN PFRMD , 11/19, 01/24, 01/29 COLONOSCOPY FLX DX W/COLLJ SPEC WHEN PFRMD 03/22/2015 Colonoscopy-repeat 5 years COLONOSCOPY FLX DX W/COLLJ SPEC WHEN PFRMD 11/23/2020 COLONOSCOPY GEN ANES 04/12/2020 Repeat in 1 year COLONOSCOPY GEN ANES 04/26/2020 3 polyps removed. 40 mm, 5 mm, 5mm. repeat in 6 months. DISKECTOMY, LUMBAR, SINGLE SP 2006 HERNIA REPAIR HX INGUINAL HERNIA REPAIR HX 07/19/2010 bilateral inguinal hernia repair with mesh NEUROPLASTY &/TRANSPOS MEDIAN NRV CARPAL TUNNE Right 03/26/2015 Carpal tunnel decomp right PAST SURGICAL HISTORY OF Left 04/10/2019 arthroscopic knee for torn meniscus RHINP PRIM LAT&ALAR CRTLGS&/ELVTN NASAL TI 2009 Rhinoplasty SKIN BIOPSY HX Family History FAMILY HISTORY Problem Relation Age of Onset Heart Mother CHF Hypertension Mother Stroke Father Hypertension Father Patient Allergies ALLERGIES No Known Allergies Current Medications Current Outpatient Medications on File Prior to Visit Medication Sig meloxicam (MOBIC) 7.5 mg tablet Take 1 tablet by mouth once daily. sertraline (ZOLOFT) 25 mg tablet Take 1 tablet by mouth once daily. atorvastatin (LIPITOR) 20 mg tablet Take 1 tablet by mouth once daily. hydroCHLOROthiazide (HYDRODIURIL, ESIDRIX) 12.5 mg capsule Take 1 capsule by mouth once daily. fluticasone (FLONASE) 50 mcg/actuation nasal spray Use 2 Sprays in each nostril once daily. Rinse mouth after use. (Patient taking differently: Use 2 Sprays in each nostril as needed. Rinse mouth after use.) docusate sodium (COLACE) 100 mg capsule Take 1 capsule by mouth twice daily as needed for constipation. Biotin 10,000 mcg cap Take by mouth once daily. lutein-zeaxanthin 25-5 mg cap Take by mouth. No current facility-administered medications on file prior to visit. Social History Social History Tobacco Use Smoking status: Never Smokeless tobacco: Never Substance Use Topics Alcohol use: No Drug use: No Review of Symptoms REVIEW OF SYSTEMS See HPI EXAM: BP 199/106 Pulse 65 Wt 99.9 kg (220 lb 3.2 oz) SpO2 96% BMI 29.05 kg/m General Appearance: Well appearing, alert, in no acute distress, well-hydrated, well nourished.. Skin: Skin color, texture, turgor normal, no suspicious rashes or lesions. KNEE:Location: Right Redness: No. Warmth: No. Crepitus: Yes. Effusion: No. Joint line tenderness: Yes. Lateral tenderness: Yes. Medial tenderness: No. Drawer sign negative: Yes. Medial or lateral laxity: No. [place]'s sign: No. Health Maintenance List ADVANCE DIRECTIVE DISCUSSION Never done COVID-19 VACCINE(4 - Booster for Pfizer series) due on 03/07/2021 INFLUENZA(1) due on 10/20/2021 ANNUAL PCP TEAM CHRONIC DISEASE VISIT due on 09/06/2022 BP CONTROLLED (<130/80) due on 09/06/2022 COLORECTAL CANCER SCREENING due on 11/24/2023 DIABETES SCREEN due on 09/29/2024 DTAP,TDAP,TD(3 - Td or Tdap) due on 09/06/2026 LIPID SCREEN due on 09/29/2026 HEPATITIS C SCREENING Completed SHINGRIX VACCINE Completed PNEUMOCOCCAL: 65+ Completed Data reviewed Component Latest Ref Rng & Units 09/29/2021 Protein, Total 6.3 - 8.0 g/dL 6.8 Albumin 3.9 - 4.9 g/dL 4.6 Calcium 8.5 - 10.2 mg/dL 9.8 Bilirubin, Total 0.2 - 1.3 mg/dL 0.6 Alkaline Phosphatase 38 - 113 U/L 75 AST 14 - 40 U/L 12 (L) ALT 10 - 54 U/L 20 Glucose 74 - 99 mg/dL 92 BUN 9 - 24 mg/dL 16 Creatinine 0.73 - 1.22 mg/dL 1.01 Sodium 136 - 144 mmol/L 140 Potassium 3.7 - 5.1 mmol/L 4.2 Chloride 97 - 105 mmol/L 103 CO2 22 - 30 mmol/L 24 Anion Gap 9 - 18 mmol/L 13 eGFR >=60 mL/min/1.73m 79 Cholesterol, Total <200 mg/dL 184 Triglyceride <150 mg/dL 80 HDL Cholesterol >39 mg/dL 41 Non HDL Cholesterol <130 mg/dL 143 (H) Fasting Time hrs 12 VLDL Cholesterol <30 mg/dL 16 TC:HDL Ratio <5.10 4.49 LDL Cholesterol <100 mg/dL 127 (H) LDL:HDL Ratio <2.54 3.10 (H) ASSESSMENT/PLAN: 1. It band syndrome, right - ICD9: 728.89, ICD10: M76.31 (primary diagnosis) Discussed need to follow up with PT and with ortho for injection if pain is persisting. 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 - MELOXICAM 15 MG TABLET - CONSULT TO ORTHOPAEDICS 2. Essential hypertension - ICD9: 401.9, ICD10: I10 - poor control BP more elevated on 2nd reading today. Patient is asymptomatic and this has not been typical for him. Compliant with regimen. Recommend checking BP at home over the next couple days and call if readings are persistently elevated >140/90 and would adjust regimen. 3. Need for influenza vaccination - ICD9: V04.81, ICD10: Z23 - INFLUENZA SEASONAL QUADRIVALENT HIGH DOSE AGE 65+ 4. Need for COVID-19 vaccine - ICD9: V04.89, ICD10: Z23 - PFIZER-BIONTECH COVID-19 BIVALENT BOOSTER VACCINE, AGE 12+ YR Lenin Chaudhary MD documented in this encounterAcm[facility] System10-11-2022 Miscellaneous Notes* Telephone Encounter - Tawana Hopkins RN - 11/29/2021 8:42 AM EDT Patient calls and sets up appointment with provider for 1140 today. Tawana Hopkins RN * Telephone Encounter - Isaura Haji LPN - 11/28/2021 3:25 PM EDT Patient telephoned. Message left to call back. Isaura Haji LPN * Telephone Encounter - Lenin Chaudhary MD - 11/28/2021 11:12 AM EDT Recommend OV to discuss higher dose of NSAID and alternative treatment options. I have openings this afternoon. * Telephone Encounter - Maren Hidalgo Pss - 11/28/2021 10:15 AM EDT Homero is asking if his meloxicam can be bumped up to 15mg. He would like it sent to the [facility] pharmacy. Homero - [phone] documented in this encounterAcmc Healthcare System08-16-2022 Miscellaneous Notes* Telephone Encounter - Roopa Montiel RN - 10/04/2021 1:10 PM EDT Patient has been identified by name and date of : Yes Pharmacy phones for refill(s): Requested Prescriptions Pending Prescriptions Disp Refills meloxicam (MOBIC) 7.5 mg tablet Sig: Take 1 tablet by mouth once daily. Date of last office visit in primary care: 09/06/21, NOV: 03/08/22 Last 2 Encounter Wt Readings: Date: Wt: 09/06/2021 98 kg (216 lb) 02/28/2021 96.6 kg (213 lb) Please advise. Thank you. Roopa Montiel RN documented in this encounterAcmc Healthcare System08-12-2022 Miscellaneous Notes* Telephone Encounter - Aleyda Hatch LPN - 09/30/2021 12:38 PM EDT PATIENT NOTIFIED OF SAME. * Telephone Encounter - Arlyn Scott LPN - 09/30/2021 12:30 PM EDT Phoned patient and VM left for him to return call and speak with a nurse for lab results. * Telephone Encounter - Arlyn Scott LPN - 09/30/2021 12:30 PM EDT ----- Message from Lenin Chaudhary MD sent at 09/30/2021 8:20 AM EDT ----- Patient's cholesterol is up slightly from 3 years ago, but total cholesterol and good cholesterol are in normal range. LDL (bad cholesterol) up slightly. Recommend he continue statin and work on low cholesterol diet. Other labs normal. documented in this encounterAcmc Healthcare System07-19-2022 History of Present illness Narrative* July Richards, LUTHER.POLISHING MACHINE TENDER - 09/06/2021 8:34 AM EDT 09/06/2021 Patient presents with: 6 Month Exam SUBJECTIVE: This is a 75 year old that is here today for Above Complaints. Since lat appointment has been in good health without ER visits or hospitalizations. Had COVID-19 in February in 2020. Recently switched insurance and had Nurse Practitioner to the house. He reports she wanted him to mention brain fog since his COVID-19 infection. [place] goes [place] and made a couple of wrong turns trying to get there, howeverhe reports he made the same mistake last year. Had to call family for them to help with directions.Denies getting lost driving to local familiar areas, forgetting names of people he sees regularly, forgetting appointments, or forgetting how to perform tasks he normally does such as tying shoes or balancing a check book. He is questioning if brain fog after COVID-19 is a true thing. HTN: Patient is compliant with meds Yes Monitors bp at home: No. Denies side effects: No. Chest pain: No. Dyspnea: No. Edema: No. Palpitations: No. Syncope: No. Headache: No. Dizziness: No. Depression: taking Zoloft as prescribed. Denies depressive symptoms. Sleeping well HYPERLIPIDEMIA: Patient is taking medications: Yes. Patient is watching diet: somewhat. Patient denies myalgias: Yes. Patient denies gi upset: Yes CHRISTIANO: not on CPAP for CHRISTIANO hx. Denies daytime somnolence, loud snoring or headaches PAST MEDICAL HISTORY Diagnosis Date Bilateral carpal tunnel syndrome s/p release on right Bilateral inguinal hernia s/p mesh BPH (benign prostatic hyperplasia) DDD (degenerative disc disease), lumbar resolved after discectomy Depression Deviated septum s/p septoplasty Hyperlipidemia Iron deficiency anemia Irritable bowel syndrome 08/1997 improved CHRISTIANO (obstructive sleep apnea) [address] Crowe Personal history of colonic polyps Scalp psoriasis Unspecified essential hypertension ALLERGIES Patient has no known allergies. MEDICATIONS Current Outpatient Medications Medication Sig meloxicam (MOBIC) 7.5 mg tablet Take 7.5 mg by mouth once daily. sertraline (ZOLOFT) 25 mg tablet Take 1 tablet by mouth once daily. atorvastatin (LIPITOR) 20 mg tablet Take 1 tablet by mouth once daily. hydroCHLOROthiazide (HYDRODIURIL, ESIDRIX) 12.5 mg capsule Take 1 capsule by mouth once daily. fluticasone (FLONASE) 50 mcg/actuation nasal spray Use 2 Sprays in each nostril once daily. Rinse mouth after use. docusate sodium (COLACE) 100 mg capsule Take 1 capsule by mouth twice daily as needed for constipation. Biotin 10,000 mcg cap Take by mouth once daily. lutein-zeaxanthin 25-5 mg cap Take by mouth. No current facility-administered medications for this visit. Medications and allergies reviewed by this provider. SOCIAL HISTORY Social History Tobacco Use Smoking status: Never Smoker Smokeless tobacco: Never Used Substance Use Topics Alcohol use: No Drug use: No REVIEW OF SYSTEMS All other reviewed and negative other than HPI. OBJECTIVE: BP 124/80 Pulse 81 Wt 98 kg (216 lb) SpO2 96% BMI 28.50 kg/m . Vital signs reviewed by thisprovider. APPEARANCE Well appearing, alert, in no acute distress, well-hydrated, well nourished. EYES conjunctiva and sclera normal. EARS External ears normal, canals clear HEART RRR with normal S1 and S2, no murmurs, no gallops, no JVD appreciated LUNG clear to auscultation. No wheezes, rhonchi, or rales EXTREMITIES Extremities normal, No deformities, No skin discoloration and No edema SKIN Skin color, texture, turgor normal, no suspicious rashes or lesions to exposed skin Component Latest Ref Rng & Units 06/30/2020 02/28/2021 WBC 3.70 - 11.00 k/uL 9.64 RBC 4.20 - 6.00 m/uL 4.92 Hemoglobin 13.0 - 17.0 g/dL 13.7 Hematocrit 39.0 - 51.0 % 42.4 MCV 80.0 - 100.0 fL 86.2 MCH 26.0 - 34.0 pG 27.8 MCHC 30.5 - 36.0 g/dL 32.3 RDW-CV 11.5 - 15.0 % 13.1 Platelet Count 150 - 400 k/uL 311 MPV 9.0 - 12.7 fL 10.8 Neut% % 66.4 Abs Neut (ANC) 1.45 - 7.50 k/uL 6.40 Lymph% % 25.0 Abs Lymph 1.00 - 4.00 k/uL 2.41 Buchanan% % 6.1 Abs Buchanan <0.87 k/uL 0.59 Eosin% % 2.2 Abs Eosin <0.46 k/uL 0.21 Baso% % 0.3 Abs Baso <0.11 k/uL 0.03 Nucleated Reds 0 /100 WBC 0.0 Absolute nRBC <0.01 k/uL <0.01 Diff Type Auto Diff Protein, Total 6.3 - 8.0 g/dL 7.0 Albumin 3.9 - 4.9 g/dL 4.3 Calcium 8.5 - 10.2 mg/dL 9.7 Bilirubin, Total 0.2 - 1.3 mg/dL 0.3 Alkaline Phosphatase 38 - 113 U/L 93 AST 14 - 40 U/L 10 (L) Glucose 74 - 99 mg/dL 101 (H) BUN 9 - 24 mg/dL 13 Creatinine 0.73 - 1.22 mg/dL 0.87 Sodium 136 - 144 mmol/L 139 Potassium 3.7 - 5.1 mmol/L 4.2 Chloride 97 - 105 mmol/L 103 CO2 22 - 30 mmol/L 26 Anion Gap 9 - 18 mmol/L 10 ALT 10 - 54 U/L 17 eGFR- >60 eGFR-All Other Races . >60 Total Cholesterol, Nonfasting <200 mg/dL 170 Triglycerides, Nonfasting <150 mg/dL 101 HDL Cholesterol, Nonfasting >39 mg/dL 44 LDL Cholesterol, Nonfasting <100 mg/dL 106 (H) Non HDL Cholesterol, Nonfasting <130 mg/dL 126 VLDL Cholesterol, Nonfasting <30 mg/dL 20 Total Chol/HDL Ratio, Nonfasting <5.10 mg/dL 3.86 LDL/HDL Ratio, Nonfasting <2.54 mg/dL 2.41 PSA Screening 0.00 - 2.59 ng/mL 1.06 ADVANCE DIRECTIVE DISCUSSION Never done COVID-19 VACCINE(4 - Booster for Pfizer series) due on 05/10/2021 INFLUENZA(1) due on 10/20/2021 ANNUAL PCP TEAM CHRONIC DISEASE VISIT due on 02/28/2022 BP CONTROLLED (<130/80) due on 09/06/2022 COLORECTAL CANCER SCREENING due on 11/24/2023 DIABETES SCREEN due on 02/29/2024 LIPID SCREEN due on 06/30/2025 DTAP,TDAP,TD(3 - Td or Tdap) due on 09/06/2026 HEPATITIS C SCREENING Completed SHINGRIX VACCINE Completed PNEUMOCOCCAL: 65+ Completed ASSESSMENT/PLAN: 1. Essential hypertension - ICD9: 401.9, ICD10: I10 (primary diagnosis) - good control - Continue current medication(s) - Encouraged dietary sodium restriction/DASH diet - Recommended regular aerobic exercise. - Recommend home blood pressure monitoring, to bring results in on next visit - Discussed need and benefit for weight loss. - Recheck in 6 months, sooner should new symptoms or problems arise. - Goal of BP <130/80 - Recommended no refined sugar, low refined starch, healthy oil intake (olive oil), healthy protein(fish) along the lines of the Mediterranean diet. - COMP METABOLIC PANEL 2. Mixed hyperlipidemia - ICD9: 272.2, ICD10: E78.2 - to be determined upon return of lab results - Continue current medication. - Encouraged following a low fat, low cholesterol diet. - Discussed the benefits of regular aerobic exercise and weight loss. - Follow up in 6 months. - Encouraged following a low carbohydrate, healthy oil intake diet. - LIPID PANEL BASIC 3. CHRISTIANO (obstructive sleep apnea) - ICD9: 327.23, ICD10: G47.33 - asymptomatic without CPAP - will monitor and watch weight 4. Brain fog - ICD9: 799.59, ICD10: R41.89 - discussed with patient some people do experience brain fog after COVID-19, however with only one incident when he was driving to a place he only goes to yearly I am not concerned - we did discuss concerning symptoms to watch for and if he develops these to return to office, verbalizes understanding 5. 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rder (HCC) - ICD9: 296.31, ICD10: F33.0 - stable on current regime - follow-up as needed July Richards APRN.CNP Prescription instructions reviewed with patient as applicable. Patient advised if symptoms do not improve or if symptoms worsen sooner, to contact their primary care physician. Potential red flag symptoms discussed with the patient. Reviewed appropriate action plan to take if red flag symptoms occur. Patient agreeable to treatment plan. 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 Rinse mouth after use. STARLA: No SERTRALINE 25 MG TABLET 90 tablet 1 Sig: Take 1 tablet by mouth once daily. STARLA: No ATORVASTATIN 20 MG TABLET 90 tablet 1 Sig: Take 1 tablet by mouth once daily. STARLA: No HYDROCHLOROTHIAZIDE 12.5 MG CAPSULE 30 capsule 5 Sig: Take 1 capsule by mouth once daily. STARLA: No Duyen career developer with with [employer] calls to report she works with patient on a medication adherence program and is working to reduce the number of trips patient makes to the pharmacy and is requesting a 100 day supply of all current prescriptions. She verified that prescriptions would be filledlike this through [employer]. Orders pended. Date of last office visit with pcp: 02/28/2021 Future visit: 08/29/2021 Last 2 Encounter Wt Readings: Date: Wt: 02/28/2021 96.6 kg (213 lb) 10/13/2020 99.3 kg (218 lb 14.7 oz) Previous labs/tests for medication: Cholesterol: HDL Cholesterol (mg/dL) Date Value 06/05/2018 51 HDL Cholesterol, Nonfasting (mg/dL) Date Value 06/30/2020 44 LDL Cholesterol (mg/dL) Date Value 06/05/2018 108 LDL Cholesterol, Nonfasting (mg/dL) Date Value 06/30/2020 106 ALT (U/L) Date Value 02/28/2021 17 Non HDL Cholesterol, Nonfasting (mg/dL) Date Value 06/30/2020 126 Blood Pressure: BUN (mg/dL) Date Value 02/28/2021 13 Sodium (mmol/L) Date Value 02/28/2021 139 Last 1 Encounter BP Readings: Date: BP: 02/28/2021 128/86 Blood Counts: WBC (k/uL) Date Value 02/28/2021 9.64 RBC (m/uL) Date Value 02/28/2021 4.92 Hematocrit (%) Date Value 02/28/2021 42.4 Hemoglobin (g/dL) Date Value 02/28/2021 13.7 Platelet Count (k/uL) Date Value 02/28/2021 311 Please advise. Thank you. Marissa Black RN documented in this encounterAcmc Healthcare System05-12-2021 History of Present illness Narrative* Carla Sanford RT(R) - 06/30/2020 10:30 AM EDT Radiology Service Progress Note PATIENT NAME: Homero Mei DATE OF SERVICE: June 30, 2020 TIME: 10:41 AM PATIENT IDENTITY VERIFICATION COMPLETED USING TWO (2) IDENTIFIERS: Name and Date of confirmedby patient verbally. FALL SCREENING: Has the patient had 2 falls in the last year or 1 fall with injury or currently using an Ambulatory Assistive Device (Walker, Cane, Wheelchair, Crutches, etc.)? No PATIENT GENDER DATA: Male PATIENT RELEVANT IMPLANT DATA REVIEWED: Not Applicable RADIOLOGY DEPARTMENT: General X-ray: Exam(s) Completed: Pelvis X-Ray: Pelvis with Hip Right PERIPHERAL IV DATA: Not applicable SIGNED BY: RT Iris(R) June 30, 2020 10:41 AM documented in this encounterAcmc Healthcare System10-15-2013 History of Past illness Narrative* Problem Noted Date Resolved Date Abdominal pain, left lower quadrant 12/03/2012 06/05/2016 Bilateral inguinal hernia (BIH) 07/04/2010 11/01/2011 Viral warts, unspecified 02/03/2010 017 Irritant dermatitis 02/03/2010 06/05/2016 Other seborrheic keratosis 02/03/201006/05 Xerosis cutis 04/09/2009 04/09/2009 Eczematous Dermatitis: ?Contact type vs other 10/13/2009 Xerosis cutis 04/09/2009 10/13/2009 Contact dermatitis and other eczema, due to unspecified cause 08/18/2008 04/09/2009 Contact dermatitis and other eczema due to other specified agent 08/18/2008 04/09/2009 Other atopic dermatitis and related conditions 0 08/18/2008 04/09/2009 XEROSIS///SEBACEOUS GLAND DIS NEC 08/18/2008 04/09/2009 Rosacea 08/18/2008 10/13/2009 TELANGIECTASIAS///CAPILLARY DIS NEC/NOS 08/19/19 09 10/13/2009 Irritable bowel syndrome 08/19/1997 010 Lumbago 10/13/2009 Sprain of neck 10/13/2009 Enlargement of lymph nodes 10/13 Anal and rectal polyp 10/13/2009 Unspecified hemorrhoids without mention of compl ication 10/13/2009 Benign neoplasm of colon 010 documented as of this encounter (statuses as of 05/03/2021) [facility] History of Past illness Narrative* Problem Noted Date Resolved Date Abdominal pain, left lower quadrant 12/03/2012 06/05/2016 Bilateral inguinal hernia (BIH) 07/04/2010 11/01/2011 Viral warts, unspecified 02/03/2010 017 Irritant dermatitis 02/03/2010 06/05/2016 Other seborrheic keratosis 02/03/201006/05 Xerosis cutis 04/09/2009 04/09/2009 Eczematous Dermatitis: ?Contact type vs other 10/13/2009 Xerosis cutis 04/09/2009 10/13/2009 Contact dermatitis and other eczema, due to unspecified cause 08/18/2008 04/09/2009 Contact dermatitis and other eczema due to other specified agent 08/18/2008 04/09/2009 Other atopic dermatitis and related conditions 0 08/18/2008 04/09/2009 XEROSIS///SEBACEOUS GLAND DIS NEC 08/18/2008 04/09/2009 Rosacea 08/18/2008 10/13/2009 TELANGIECTASIAS///CAPILLARY DIS NEC/NOS 08/19/19 09 10/13/2009 Irritable bowel syndrome 08/19/1997 010 Lumbago 10/13/2009 Sprain of neck 10/13/2009 Enlargement of lymph nodes 10/13 Anal and rectal polyp 10/13/2009 Unspecified hemorrhoids without mention of compl ication 10/13/2009 Benign neoplasm of colon 010 documented as of this encounter (statuses as of 09/06/2021) [facility] of Past illness Narrative* Problem Noted Date Resolved Date Abdominal pain, left lower quadrant 12/03/2012 06/05/2016 Bilateral inguinal hernia (BIH) 07/04/2010 11/01/2011 Viral warts, unspecified 02/03/2010 017 Irritant dermatitis 02/03/2010 06/05/2016 Other seborrheic keratosis 02/03/201006/05 Xerosis cutis 04/09/2009 04/09/2009 Eczematous Dermatitis: ?Contact type vs other 10/13/2009 Xerosis cutis 04/09/2009 10/13/2009 Contact dermatitis and other eczema, due to unspecified cause 08/18/2008 04/09/2009 Contact dermatitis and other eczema due to other specified agent 08/18/2008 04/09/2009 Other atopic dermatitis and related conditions 0 08/18/2008 04/09/2009 XEROSIS///SEBACEOUS GLAND DIS NEC 08/18/2008 04/09/2009 Rosacea 08/18/2008 10/13/2009 TELANGIECTASIAS///CAPILLARY DIS NEC/NOS 08/19/19 09 10/13/2009 Irritable bowel syndrome 08/19/1997 010 Lumbago 10/13/2009 Sprain of neck 10/13/2009 Enlargement of lymph nodes 10/13 Anal and rectal polyp 10/13/2009 Unspecified hemorrhoids without mention of compl ication 10/13/2009 Benign neoplasm of colon 010 documented as of this encounter (statuses as of 09/30/2021) [facility] of Past illness Narrative* Problem Noted Date Resolved Date Abdominal pain, left lower quadrant 12/03/2012 06/05/2016 Bilateral inguinal hernia (BIH) 07/04/2010 11/01/2011 Viral warts, unspecified 02/03/2010 017 Irritant dermatitis 02/03/2010 06/05/2016 Other seborrheic keratosis 02/03/201006/05 Xerosis cutis 04/09/2009 04/09/2009 Eczematous Dermatitis: ?Contact type vs other 10/13/2009 Xerosis cutis 04/09/2009 10/13/2009 Contact dermatitis and other eczema, due to unspecified cause 08/18/2008 04/09/2009 Contact dermatitis and other eczema due to other specified agent 08/18/2008 04/09/2009 Other atopic dermatitis and related conditions 0 08/18/2008 04/09/2009 XEROSIS///SEBACEOUS GLAND DIS NEC 08/18/2008 04/09/2009 Rosacea 08/18/2008 10/13/2009 TELANGIECTASIAS///CAPILLARY DIS NEC/NOS 08/19/19 09 10/13/2009 Irritable bowel syndrome 08/19/1997 010 Lumbago 10/13/2009 Sprain of neck 10/13/2009 Enlargement of lymph nodes 10/13 Anal and rectal polyp 10/13/2009 Unspecified hemorrhoids without mention of compl ication 10/13/2009 Benign neoplasm of colon 010 documented as of this encounter (statuses as of 10/04/2021) [facility] of Past illness Narrative* Problem Noted Date Resolved Date Abdominal pain, left lower quadrant 12/03/2012 06/05/2016 Bilateral inguinal hernia (BIH) 07/04/2010 11/01/2011 Viral warts, unspecified 02/03/2010 017 Irritant dermatitis 02/03/2010 06/05/2016 Other seborrheic keratosis 02/03/201006/05 Xerosis cutis 04/09/2009 04/09/2009 Eczematous Dermatitis: ?Contact type vs other 10/13/2009 Xerosis cutis 04/09/2009 10/13/2009 Contact dermatitis and other eczema, due to unspecified cause 08/18/2008 04/09/2009 Contact dermatitis and other eczema due to other specified agent 08/18/2008 04/09/2009 Other atopic dermatitis and related conditions 0 08/18/2008 04/09/2009 XEROSIS///SEBACEOUS GLAND DIS NEC 08/18/2008 04/09/2009 Rosacea 08/18/2008 10/13/2009 TELANGIECTASIAS///CAPILLARY DIS NEC/NOS 08/19/19 09 10/13/2009 Irritable bowel syndrome 08/19/1997 010 Lumbago 10/13/2009 Sprain of neck 10/13/2009 Enlargement of lymph nodes 10/13 Anal and rectal polyp 10/13/2009 Unspecified hemorrhoids without mention of compl ication 10/13/2009 Benign neoplasm of colon 010 documented as of this encounter (statuses as of 11/29/2021) [facility] of Past illness Narrative* Problem Noted Date Resolved Date Abdominal pain, left lower quadrant 12/03/2012 06/05/2016 Bilateral inguinal hernia (BIH) 07/04/2010 11/01/2011 Viral warts, unspecified 02/03/2010 017 Irritant dermatitis 02/03/2010 06/05/2016 Other seborrheic keratosis 02/03/201006/05 Xerosis cutis 04/09/2009 04/09/2009 Eczematous Dermatitis: ?Contact type vs other 10/13/2009 Xerosis cutis 04/09/2009 10/13/2009 Contact dermatitis and other eczema, due to unspecified cause 08/18/2008 04/09/2009 Contact dermatitis and other eczema due to other specified agent 08/18/2008 04/09/2009 Other atopic dermatitis and related conditions 0 08/18/2008 04/09/2009 XEROSIS///SEBACEOUS GLAND DIS NEC 08/18/2008 04/09/2009 Rosacea 08/18/2008 10/13/2009 TELANGIECTASIAS///CAPILLARY DIS NEC/NOS 08/19/19 09 10/13/2009 Irritable bowel syndrome 08/19/1997 010 Lumbago 10/13/2009 Sprain of neck 10/13/2009 Enlargement of lymph nodes 10/13 Anal and rectal polyp 10/13/2009 Unspecified hemorrhoids without mention of compl ication 10/13/2009 Benign neoplasm of colon 010 documented as of this encounter (statuses as of 11/29/2021) [facility] Past illness Narrative* Problem Noted Date Resolved Date Abdominal pain, left lower quadrant 12/03/2012 06/05/2016 Bilateral inguinal hernia (BIH) 07/04/2010 11/01/2011 Viral warts, unspecified 02/03/2010 017 Irritant dermatitis 02/03/2010 06/05/2016 Other seborrheic keratosis 02/03/201006/05 Xerosis cutis 04/09/2009 04/09/2009 Eczematous Dermatitis: ?Contact type vs other 10/13/2009 Xerosis cutis 04/09/2009 10/13/2009 Contact dermatitis and other eczema, due to unspecified cause 08/18/2008 04/09/2009 Contact dermatitis and other eczema due to other specified agent 08/18/2008 04/09/2009 Other atopic dermatitis and related conditions 0 08/18/2008 04/09/2009 XEROSIS///SEBACEOUS GLAND DIS NEC 08/18/2008 04/09/2009 Rosacea 08/18/2008 10/13/2009 TELANGIECTASIAS///CAPILLARY DIS NEC/NOS 08/19/19 09 10/13/2009 Irritable bowel syndrome 08/19/1997 010 Lumbago 10/13/2009 Sprain of neck 10/13/2009 Enlargement of lymph nodes 10/13 Anal and rectal polyp 10/13/2009 Unspecified hemorrhoids without mention of compl ication 10/13/2009 Benign neoplasm of colon 010 documented as of this encounter (statuses as of 12/13/2021) [facility] History of Past illness Narrative* Problem Noted Date Resolved Date Abdominal pain, left lower quadrant 12/03/2012 06/05/2016 Bilateral inguinal hernia (BIH) 07/04/2010 11/01/2011 Viral warts, unspecified 02/03/2010 017 Irritant dermatitis 02/03/2010 06/05/2016 Other seborrheic keratosis 02/03/201006/05 Xerosis cutis 04/09/2009 04/09/2009 Eczematous Dermatitis: ?Contact type vs other 10/13/2009 Xerosis cutis 04/09/2009 10/13/2009 Contact dermatitis and other eczema, due to unspecified cause 08/18/2008 04/09/2009 Contact dermatitis and other eczema due to other specified agent 08/18/2008 04/09/2009 Other atopic dermatitis and related conditions 0 08/18/2008 04/09/2009 XEROSIS///SEBACEOUS GLAND DIS NEC 08/18/2008 04/09/2009 Rosacea 08/18/2008 10/13/2009 TELANGIECTASIAS///CAPILLARY DIS NEC/NOS 08/19/19 09 10/13/2009 Irritable bowel syndrome 08/19/1997 010 Lumbago 10/13/2009 Sprain of neck 10/13/2009 Enlargement of lymph nodes 10/13 Anal and rectal polyp 10/13/2009 Unspecified hemorrhoids without mention of compl ication 10/13/2009 Benign neoplasm of colon 010 documented as of this encounter (statuses as of 01/22/2022) [facility] History of Past illness Narrative* Problem Noted Date Resolved Date Abdominal pain, left lower quadrant 12/03/2012 06/05/2016 Bilateral inguinal hernia (BIH) 07/04/2010 11/01/2011 Viral warts, unspecified 02/03/2010 017 Irritant dermatitis 02/03/2010 06/05/2016 Other seborrheic keratosis 02/03/201006/05 Xerosis cutis 04/09/2009 04/09/2009 Eczematous Dermatitis: ?Contact type vs other 10/13/2009 Xerosis cutis 04/09/2009 10/13/2009 Contact dermatitis and other eczema, due to unspecified cause 08/18/2008 04/09/2009 Contact dermatitis and other eczema due to other specified agent 08/18/2008 04/09/2009 Other atopic dermatitis and related conditions 0 08/18/2008 04/09/2009 XEROSIS///SEBACEOUS GLAND DIS NEC 08/18/2008 04/09/2009 Rosacea 08/18/2008 10/13/2009 TELANGIECTASIAS///CAPILLARY DIS NEC/NOS 08/19/19 09 10/13/2009 Irritable bowel syndrome 08/19/1997 010 Lumbago 10/13/2009 Sprain of neck 10/13/2009 Enlargement of lymph nodes 10/13 Anal and rectal polyp 10/13/2009 Unspecified hemorrhoids without mention of compl ication 10/13/2009 Benign neoplasm of colon 010 documented as of this encounter (statuses as of 01/25/2022) [facility] History of Past illness Narrative* Problem Noted Date Resolved Date Abdominal pain, left lower quadrant 12/03/2012 06/05/2016 Bilateral inguinal hernia (BIH) 07/04/2010 11/01/2011 Viral warts, unspecified 02/03/2010 017 Irritant dermatitis 02/03/2010 06/05/2016 Other seborrheic keratosis 02/03/201006/05 Xerosis cutis 04/09/2009 04/09/2009 Eczematous Dermatitis: ?Contact type vs other 10/13/2009 Xerosis cutis 04/09/2009 10/13/2009 Contact dermatitis and other eczema, due to unspecified cause 08/18/2008 04/09/2009 Contact dermatitis and other eczema due to other specified agent 08/18/2008 04/09/2009 Other atopic dermatitis and related conditions 0 08/18/2008 04/09/2009 XEROSIS///SEBACEOUS GLAND DIS NEC 08/18/2008 04/09/2009 Rosacea 08/18/2008 10/13/2009 TELANGIECTASIAS///CAPILLARY DIS NEC/NOS 08/19/19 09 10/13/2009 Irritable bowel syndrome 08/19/1997 010 Lumbago 10/13/2009 Sprain of neck 10/13/2009 Enlargement of lymph nodes 10/13 Anal and rectal polyp 10/13/2009 Unspecified hemorrhoids without mention of compl ication 10/13/2009 Benign neoplasm of colon 010 documented as of this encounter (statuses as of 02/08/2022) [facility] History of Past illness Narrative* Problem Noted Date Resolved Date Abdominal pain, left lower quadrant 12/03/2012 06/05/2016 Bilateral inguinal hernia (BIH) 07/04/2010 11/01/2011 Viral warts, unspecified 02/03/2010 017 Irritant dermatitis 02/03/2010 06/05/2016 Other seborrheic keratosis 02/03/201006/05 Xerosis cutis 04/09/2009 04/09/2009 Eczematous Dermatitis: ?Contact type vs other 10/13/2009 Xerosis cutis 04/09/2009 10/13/2009 Contact dermatitis and other eczema, due to unspecified cause 08/18/2008 04/09/2009 Contact dermatitis and other eczema due to other specified agent 08/18/2008 04/09/2009 Other atopic dermatitis and related conditions 0 08/18/2008 04/09/2009 XEROSIS///SEBACEOUS GLAND DIS NEC 08/18/2008 04/09/2009 Rosacea 08/18/2008 10/13/2009 TELANGIECTASIAS///CAPILLARY DIS NEC/NOS 08/19/19 09 10/13/2009 Irritable bowel syndrome 08/19/1997 010 Lumbago 10/13/2009 Sprain of neck 10/13/2009 Enlargement of lymph nodes 10/13 Anal and rectal polyp 10/13/2009 Unspecified hemorrhoids without mention of compl ication 10/13/2009 Benign neoplasm of colon 010 documented as of this encounter (statuses as of 02/24/2022) [facility] History of Past illness Narrative* Problem Noted Date Resolved Date Abdominal pain, left lower quadrant 12/03/2012 06/05/2016 Bilateral inguinal hernia (BIH) 07/04/2010 11/01/2011 Viral warts, unspecified 02/03/2010 017 Irritant dermatitis 02/03/2010 06/05/2016 Other seborrheic keratosis 02/03/201006/05 Xerosis cutis 04/09/2009 04/09/2009 Eczematous Dermatitis: ?Contact type vs other 10/13/2009 Xerosis cutis 04/09/2009 10/13/2009 Contact dermatitis and other eczema, due to unspecified cause 08/18/2008 04/09/2009 Contact dermatitis and other eczema due to other specified agent 08/18/2008 04/09/2009 Other atopic dermatitis and related conditions 0 08/18/2008 04/09/2009 XEROSIS///SEBACEOUS GLAND DIS NEC 08/18/2008 04/09/2009 Rosacea 08/18/2008 10/13/2009 TELANGIECTASIAS///CAPILLARY DIS NEC/NOS 08/19/19 09 10/13/2009 Irritable bowel syndrome 08/19/1997 010 Lumbago 10/13/2009 Sprain of neck 10/13/2009 Enlargement of lymph nodes 10/13 Anal and rectal polyp 10/13/2009 Unspecified hemorrhoids without mention of compl ication 10/13/2009 Benign neoplasm of colon 010 documented as of this encounter (statuses as of 04/04/2022) [facility] History of Past illness Narrative* Problem Noted Date Resolved Date Abdominal pain, left lower quadrant 12/03/2012 06/05/2016 Bilateral inguinal hernia (BIH) 07/04/2010 11/01/2011 Viral warts, unspecified 02/03/2010 017 Irritant dermatitis 02/03/2010 06/05/2016 Other seborrheic keratosis 02/03/201006/05 Xerosis cutis 04/09/2009 04/09/2009 Eczematous Dermatitis: ?Contact type vs other 10/13/2009 Xerosis cutis 04/09/2009 10/13/2009 Contact dermatitis and other eczema, due to unspecified cause 08/18/2008 04/09/2009 Contact dermatitis and other eczema due to other specified agent 08/18/2008 04/09/2009 Other atopic dermatitis and related conditions 0 08/18/2008 04/09/2009 XEROSIS///SEBACEOUS GLAND DIS NEC 08/18/2008 04/09/2009 Rosacea 08/18/2008 10/13/2009 TELANGIECTASIAS///CAPILLARY DIS NEC/NOS 08/19/19 09 10/13/2009 Irritable bowel syndrome 08/19/1997 010 Lumbago 10/13/2009 Sprain of neck 10/13/2009 Enlargement of lymph nodes 10/13 Anal and rectal polyp 10/13/2009 Unspecified hemorrhoids without mention of compl ication 10/13/2009 Benign neoplasm of colon 010 documented as of this encounter (statuses as of 04/26/2022) [facility] History of Past illness Narrative* Problem Noted Date Resolved Date Abdominal pain, left lower quadrant 12/03/2012 06/05/2016 Bilateral inguinal hernia (BIH) 07/04/2010 11/01/2011 Viral warts, unspecified 02/03/2010 017 Irritant dermatitis 02/03/2010 06/05/2016 Other seborrheic keratosis 02/03/201006/05 Xerosis cutis 04/09/2009 04/09/2009 Eczematous Dermatitis: ?Contact type vs other 10/13/2009 Xerosis cutis 04/09/2009 10/13/2009 Contact dermatitis and other eczema, due to unspecified cause 08/18/2008 04/09/2009 Contact dermatitis and other eczema due to other specified agent 08/18/2008 04/09/2009 Other atopic dermatitis and related conditions 0 08/18/2008 04/09/2009 XEROSIS///SEBACEOUS GLAND DIS NEC 08/18/2008 04/09/2009 Rosacea 08/18/2008 10/13/2009 TELANGIECTASIAS///CAPILLARY DIS NEC/NOS 08/19/19 09 10/13/2009 Irritable bowel syndrome 08/19/1997 010 Lumbago 10/13/2009 Sprain of neck 10/13/2009 Enlargement of lymph nodes 10/13 Anal and rectal polyp 10/13/2009 Unspecified hemorrhoids without mention of compl ication 10/13/2009 Benign neoplasm of colon 010 documented as of this encounter (statuses as of 04/28/2022) [facility] History of Past illness Narrative* Problem Noted Date Resolved Date Abdominal pain, left lower quadrant 12/03/2012 06/05/2016 Bilateral inguinal hernia (BIH) 07/04/2010 11/01/2011 Viral warts, unspecified 02/03/2010 017 Irritant dermatitis 02/03/2010 06/05/2016 Other seborrheic keratosis 02/03/201006/05 Xerosis cutis 04/09/2009 04/09/2009 Eczematous Dermatitis: ?Contact type vs other 10/13/2009 Xerosis cutis 04/09/2009 10/13/2009 Contact dermatitis and other eczema, due to unspecified cause 08/18/2008 04/09/2009 Contact dermatitis and other eczema due to other specified agent 08/18/2008 04/09/2009 Other atopic dermatitis and related conditions 0 08/18/2008 04/09/2009 XEROSIS///SEBACEOUS GLAND DIS NEC 08/18/2008 04/09/2009 Rosacea 08/18/2008 10/13/2009 TELANGIECTASIAS///CAPILLARY DIS NEC/NOS 08/19/19 09 10/13/2009 Irritable bowel syndrome 08/19/1997 010 Lumbago 10/13/2009 Sprain of neck 10/13/2009 Enlargement of lymph nodes 10/13 Anal and rectal polyp 10/13/2009 Unspecified hemorrhoids without mention of compl ication 10/13/2009 Benign neoplasm of colon 010 documented as of this encounter (statuses as of 05/26/2022) [facility] History of Past illness Narrative* Problem Noted Date Resolved Date Abdominal pain, left lower quadrant 12/03/2012 06/05/2016 Bilateral inguinal hernia (BIH) 07/04/2010 11/01/2011 Viral warts, unspecified 02/03/2010 017 Irritant dermatitis 02/03/2010 06/05/2016 Other seborrheic keratosis 02/03/201006/05 Xerosis cutis 04/09/2009 04/09/2009 Eczematous Dermatitis: ?Contact type vs other 10/13/2009 Xerosis cutis 04/09/2009 10/13/2009 Contact dermatitis and other eczema, due to unspecified cause 08/18/2008 04/09/2009 Contact dermatitis and other eczema due to other specified agent 08/18/2008 04/09/2009 Other atopic dermatitis and related conditions 0 08/18/2008 04/09/2009 XEROSIS///SEBACEOUS GLAND DIS NEC 08/18/2008 04/09/2009 Rosacea 08/18/2008 10/13/2009 TELANGIECTASIAS///CAPILLARY DIS NEC/NOS 08/19/19 09 10/13/2009 Irritable bowel syndrome 08/19/1997 010 Lumbago 10/13/2009 Sprain of neck 10/13/2009 Enlargement of lymph nodes 10/13 Anal and rectal polyp 10/13/2009 Unspecified hemorrhoids without mention of compl ication 10/13/2009 Benign neoplasm of colon 010 documented as of this encounter (statuses as of 05/31/2022) [facility] History of Past illness Narrative* Problem Noted Date Resolved Date Abdominal pain, left lower quadrant 12/03/2012 06/05/2016 Bilateral inguinal hernia (BIH) 07/04/2010 11/01/2011 Viral warts, unspecified 02/03/2010 017 Irritant dermatitis 02/03/2010 06/05/2016 Other seborrheic keratosis 02/03/201006/05 Xerosis cutis 04/09/2009 04/09/2009 Eczematous Dermatitis: ?Contact type vs other 10/13/2009 Xerosis cutis 04/09/2009 10/13/2009 Contact dermatitis and other eczema, due to unspecified cause 08/18/2008 04/09/2009 Contact dermatitis and other eczema due to other specified agent 08/18/2008 04/09/2009 Other atopic dermatitis and related conditions 0 08/18/2008 04/09/2009 XEROSIS///SEBACEOUS GLAND DIS NEC 08/18/2008 04/09/2009 Rosacea 08/18/2008 10/13/2009 TELANGIECTASIAS///CAPILLARY DIS NEC/NOS 08/19/19 09 10/13/2009 Irritable bowel syndrome 08/19/1997 010 Lumbago 10/13/2009 Sprain of neck 10/13/2009 Enlargement of lymph nodes 10/13 Anal and rectal polyp 10/13/2009 Unspecified hemorrhoids without mention of compl ication 10/13/2009 Benign neoplasm of colon 010 documented as of this encounter (statuses as of 06/12/2022) [facility] History of Past illness Narrative* Problem Noted Date Resolved Date Abdominal pain, left lower quadrant 12/03/2012 06/05/2016 Bilateral inguinal hernia (BIH) 07/04/2010 11/01/2011 Viral warts, unspecified 02/03/2010 017 Irritant dermatitis 02/03/2010 06/05/2016 Other seborrheic keratosis 02/03/201006/05 Xerosis cutis 04/09/2009 04/09/2009 Eczematous Dermatitis: ?Contact type vs other 10/13/2009 Xerosis cutis 04/09/2009 10/13/2009 Contact dermatitis and other eczema, due to unspecified cause 08/18/2008 04/09/2009 Contact dermatitis and other eczema due to other specified agent 08/18/2008 04/09/2009 Other atopic dermatitis and related conditions 0 08/18/2008 04/09/2009 XEROSIS///SEBACEOUS GLAND DIS NEC 08/18/2008 04/09/2009 Rosacea 08/18/2008 10/13/2009 TELANGIECTASIAS///CAPILLARY DIS NEC/NOS 08/19/19 09 10/13/2009 Irritable bowel syndrome 08/19/1997 010 Lumbago 10/13/2009 Sprain of neck 10/13/2009 Enlargement of lymph nodes 10/13 Anal and rectal polyp 10/13/2009 Unspecified hemorrhoids without mention of compl ication 10/13/2009 Benign neoplasm of colon 010 documented as of this encounter (statuses as of 06/15/2022) [facility] History of Past illness Narrative* Problem Noted Date Resolved Date Abdominal pain, left lower quadrant 12/03/2012 06/05/2016 Bilateral inguinal hernia (BIH) 07/04/2010 11/01/2011 Viral warts, unspecified 02/03/2010 017 Irritant dermatitis 02/03/2010 06/05/2016 Other seborrheic keratosis 02/03/201006/05 Xerosis cutis 04/09/2009 04/09/2009 Eczematous Dermatitis: ?Contact type vs other 10/13/2009 Xerosis cutis 04/09/2009 10/13/2009 Contact dermatitis and other eczema, due to unspecified cause 08/18/2008 04/09/2009 Contact dermatitis and other eczema due to other specified agent 08/18/2008 04/09/2009 Other atopic dermatitis and related conditions 0 08/18/2008 04/09/2009 XEROSIS///SEBACEOUS GLAND DIS NEC 08/18/2008 04/09/2009 Rosacea 08/18/2008 10/13/2009 TELANGIECTASIAS///CAPILLARY DIS NEC/NOS 08/19/19 09 10/13/2009 Irritable bowel syndrome 08/19/1997 010 Lumbago 10/13/2009 Sprain of neck 10/13/2009 Enlargement of lymph nodes 10/13 Anal and rectal polyp 10/13/2009 Unspecified hemorrhoids without mention of compl ication 10/13/2009 Benign neoplasm of colon 010 documented as of this encounter (statuses as of 06/19/2022) [facility] History of Past illness Narrative* Problem Noted Date Resolved Date Abdominal pain, left lower quadrant 12/03/2012 06/05/2016 Bilateral inguinal hernia (BIH) 07/04/2010 11/01/2011 Viral warts, unspecified 02/03/2010 017 Irritant dermatitis 02/03/2010 06/05/2016 Other seborrheic keratosis 02/03/201006/05 Xerosis cutis 04/09/2009 04/09/2009 Eczematous Dermatitis: ?Contact type vs other 10/13/2009 Xerosis cutis 04/09/2009 10/13/2009 Contact dermatitis and other eczema, due to unspecified cause 08/18/2008 04/09/2009 Contact dermatitis and other eczema due to other specified agent 08/18/2008 04/09/2009 Other atopic dermatitis and related conditions 0 08/18/2008 04/09/2009 XEROSIS///SEBACEOUS GLAND DIS NEC 08/18/2008 04/09/2009 Rosacea 08/18/2008 10/13/2009 TELANGIECTASIAS///CAPILLARY DIS NEC/NOS 08/19/19 09 10/13/2009 Irritable bowel syndrome 08/19/1997 010 Lumbago 10/13/2009 Sprain of neck 10/13/2009 Enlargement of lymph nodes 10/13 Anal and rectal polyp 10/13/2009 Unspecified hemorrhoids without mention of compl ication 10/13/2009 Benign neoplasm of colon 010 documented as of this encounter (statuses as of 06/22/2022) [facility] History of Past illness Narrative* Problem Noted Date Resolved Date Abdominal pain, left lower quadrant 12/03/2012 06/05/2016 Bilateral inguinal hernia (BIH) 07/04/2010 11/01/2011 Viral warts, unspecified 02/03/2010 017 Irritant dermatitis 02/03/2010 06/05/2016 Other seborrheic keratosis 02/03/201006/05 Xerosis cutis 04/09/2009 04/09/2009 Eczematous Dermatitis: ?Contact type vs other 10/13/2009 Xerosis cutis 04/09/2009 10/13/2009 Contact dermatitis and other eczema, due to unspecified cause 08/18/2008 04/09/2009 Contact dermatitis and other eczema due to other specified agent 08/18/2008 04/09/2009 Other atopic dermatitis and related conditions 0 08/18/2008 04/09/2009 XEROSIS///SEBACEOUS GLAND DIS NEC 08/18/2008 04/09/2009 Rosacea 08/18/2008 10/13/2009 TELANGIECTASIAS///CAPILLARY DIS NEC/NOS 08/19/19 09 10/13/2009 Irritable bowel syndrome 08/19/1997 010 Lumbago 10/13/2009 Sprain of neck 10/13/2009 Enlargement of lymph nodes 10/13 Anal and rectal polyp 10/13/2009 Unspecified hemorrhoids without mention of compl ication 10/13/2009 Benign neoplasm of colon 010 documented as of this encounter (statuses as of 06/23/2022) [facility] History of Past illness Narrative* Problem Noted Date Resolved Date Abdominal pain, left lower quadrant 12/03/2012 06/05/2016 Bilateral inguinal hernia (BIH) 07/04/2010 11/01/2011 Viral warts, unspecified 02/03/2010 017 Irritant dermatitis 02/03/2010 06/05/2016 Other seborrheic keratosis 02/03/201006/05 Xerosis cutis 04/09/2009 04/09/2009 Eczematous Dermatitis: ?Contact type vs other 10/13/2009 Xerosis cutis 04/09/2009 10/13/2009 Contact dermatitis and other eczema, due to unspecified cause 08/18/2008 04/09/2009 Contact dermatitis and other eczema due to other specified agent 08/18/2008 04/09/2009 Other atopic dermatitis and related conditions 0 08/18/2008 04/09/2009 XEROSIS///SEBACEOUS GLAND DIS NEC 08/18/2008 04/09/2009 Rosacea 08/18/2008 10/13/2009 TELANGIECTASIAS///CAPILLARY DIS NEC/NOS 08/19/19 09 10/13/2009 Irritable bowel syndrome 08/19/1997 010 Lumbago 10/13/2009 Sprain of neck 10/13/2009 Enlargement of lymph nodes 10/13 Anal and rectal polyp 10/13/2009 Unspecified hemorrhoids without mention of compl ication 10/13/2009 Benign neoplasm of colon 010 documented as of this encounter (statuses as of 07/04/2022) [facility] History of Past illness Narrative* Problem Noted Date Resolved Date Abdominal pain, left lower quadrant 12/03/2012 06/05/2016 Bilateral inguinal hernia (BIH) 07/04/2010 11/01/2011 Viral warts, unspecified 02/03/2010 017 Irritant dermatitis 02/03/2010 06/05/2016 Other seborrheic keratosis 02/03/201006/05 Xerosis cutis 04/09/2009 04/09/2009 Eczematous Dermatitis: ?Contact type vs other 10/13/2009 Xerosis cutis 04/09/2009 10/13/2009 Contact dermatitis and other eczema, due to unspecified cause 08/18/2008 04/09/2009 Contact dermatitis and other eczema due to other specified agent 08/18/2008 04/09/2009 Other atopic dermatitis and related conditions 0 08/18/2008 04/09/2009 XEROSIS///SEBACEOUS GLAND DIS NEC 08/18/2008 04/09/2009 Rosacea 08/18/2008 10/13/2009 TELANGIECTASIAS///CAPILLARY DIS NEC/NOS 08/19/19 09 10/13/2009 Irritable bowel syndrome 08/19/1997 010 Lumbago 10/13/2009 Sprain of neck 10/13/2009 Enlargement of lymph nodes 10/13 Anal and rectal polyp 10/13/2009 Unspecified hemorrhoids without mention of compl ication 10/13/2009 Benign neoplasm of colon 010 documented as of this encounter (statuses as of 07/25/2022) [facility] History of Past illness Narrative* Problem Noted Date Diagnosed Date Resolved Date Abdominal pain, left lower quadrant 12/03/2012 06/05/2016 Bilateral inguinal hernia (BIH) 07/04/2010 11/01/2011 Viral warts, unspecified 02/03/2010 Irritant dermatitis 02/03/2010 06/06/19 17 Other seborrheic keratosis 02/03/2010 0 06/05/2016 Xerosis cutis 04/09/2009 04/09/2009 Eczematous Dermatitis: ?Contact type vs other 04/09/19 10 10/13/2009 Xerosis cutis 04/09/2009 10/13/2009 Contact dermatitis and other eczema, due to unspecified cause 08/18/2008 04/09/2009 Contact dermatitis and other eczema due to other specified agent 08/18/2008 04/09/2009 Other atopic dermatitis and related conditions 08/18/2008 04/09/2009 XEROSIS///SEBACEOUS GLAND DIS NEC 08/18/2008 04/09/2009 Rosacea 08/18/2008 10/13/2009 TELANGIECTASIAS///CAPILLARY DIS NEC/NOS 08/18/2008 10/13/2009 Irritable bowel syndrome 08/19/1997 Lumbago 10/13/2009 Sprain of neck 10/13/2009 Enlargement of lymph nodes 0 10/13/2009 Anal and rectal polyp 2009 Unspecified hemorrhoids with out mention of complication 10/13/2009 Benign neoplasm of colon documented as of this encounter (statuses as of 09/21/2022) [facility] History of Past illness Narrative* Problem Noted Date Diagnosed Date Resolved Date Abdominal pain, left lower quadrant 12/03/2012 06/05/2016 Bilateral inguinal hernia (BIH) 07/04/2010 11/01/2011 Viral warts, unspecified 02/03/2010 Irritant dermatitis 02/03/2010 06/06/19 17 Other seborrheic keratosis 02/03/2010 0 06/05/2016 Xerosis cutis 04/09/2009 04/09/2009 Eczematous Dermatitis: ?Contact type vs other 04/09/19 10 10/13/2009 Xerosis cutis 04/09/2009 10/13/2009 Contact dermatitis and other eczema, due to unspecified cause 08/18/2008 04/09/2009 Contact dermatitis and other eczema due to other specified agent 08/18/2008 04/09/2009 Other atopic dermatitis and related conditions 08/18/2008 04/09/2009 XEROSIS///SEBACEOUS GLAND DIS NEC 08/18/2008 04/09/2009 Rosacea 08/18/2008 10/13/2009 TELANGIECTASIAS///CAPILLARY DIS NEC/NOS 08/18/2008 10/13/2009 Irritable bowel syndrome 08/19/1997 Lumbago 10/13/2009 Sprain of neck 10/13/2009 Enlargement of lymph nodes 0 10/13/2009 Anal and rectal polyp 2009 Unspecified hemorrhoids with out mention of complication 10/13/2009 Benign neoplasm of colon documented as of this encounter (statuses as of 09/21/2022) [facility] History of Past illness Narrative* Problem Noted Date Diagnosed Date Resolved Date Abdominal pain, left lower quadrant 12/03/2012 06/05/2016 Bilateral inguinal hernia (BIH) 07/04/2010 11/01/2011 Viral warts, unspecified 02/03/2010 Irritant dermatitis 02/03/2010 06/06/19 17 Other seborrheic keratosis 02/03/2010 0 06/05/2016 Xerosis cutis 04/09/2009 04/09/2009 Eczematous Dermatitis: ?Contact type vs other 04/09/19 10 10/13/2009 Xerosis cutis 04/09/2009 10/13/2009 Contact dermatitis and other eczema, due to unspecified cause 08/18/2008 04/09/2009 Contact dermatitis and other eczema due to other specified agent 08/18/2008 04/09/2009 Other atopic dermatitis and related conditions 08/18/2008 04/09/2009 XEROSIS///SEBACEOUS GLAND DIS NEC 08/18/2008 04/09/2009 Rosacea 08/18/2008 10/13/2009 TELANGIECTASIAS///CAPILLARY DIS NEC/NOS 08/18/2008 10/13/2009 Irritable bowel syndrome 08/19/1997 Lumbago 10/13/2009 Sprain of neck 10/13/2009 Enlargement of lymph nodes 0 10/13/2009 Anal and rectal polyp 2009 Unspecified hemorrhoids with out mention of complication 10/13/2009 Benign neoplasm of colon documented as of this encounter (statuses as of 10/06/2022) [facility] History of Past illness Narrative* Problem Noted Date Diagnosed Date Resolved Date Abdominal pain, left lower quadrant 12/03/2012 06/05/2016 Bilateral inguinal hernia (BIH) 07/04/2010 11/01/2011 Viral warts, unspecified 02/03/2010 Irritant dermatitis 02/03/2010 06/06/19 17 Other seborrheic keratosis 02/03/2010 0 06/05/2016 Xerosis cutis 04/09/2009 04/09/2009 Eczematous Dermatitis: ?Contact type vs other 04/09/19 10 10/13/2009 Xerosis cutis 04/09/2009 10/13/2009 Contact dermatitis and other eczema, due to unspecified cause 08/18/2008 04/09/2009 Contact dermatitis and other eczema due to other specified agent 08/18/2008 04/09/2009 Other atopic dermatitis and related conditions 08/18/2008 04/09/2009 XEROSIS///SEBACEOUS GLAND DIS NEC 08/18/2008 04/09/2009 Rosacea 08/18/2008 10/13/2009 TELANGIECTASIAS///CAPILLARY DIS NEC/NOS 08/18/2008 10/13/2009 Irritable bowel syndrome 08/19/1997 Lumbago 10/13/2009 Sprain of neck 10/13/2009 Enlargement of lymph nodes 0 10/13/2009 Anal and rectal polyp 2009 Unspecified hemorrhoids with out mention of complication 10/13/2009 Benign neoplasm of colon documented as of this encounter (statuses as of 11/14/2022) [facility] [facility] History of Past illness Narrative* Problem Noted Date Diagnosed Date Resolved Date Abdominal pain, left lower quadrant 12/03/2012 06/05/2016 Bilateral inguinal hernia (BIH) 07/04/2010 11/01/2011 Viral warts, unspecified 02/03/2010 Irritant dermatitis 02/03/2010 06/06/19 17 Other seborrheic keratosis 02/03/2010 0 06/05/2016 Xerosis cutis 04/09/2009 04/09/2009 Eczematous Dermatitis: ?Contact type vs other 04/09/19 10 10/13/2009 Xerosis cutis 04/09/2009 10/13/2009 Contact dermatitis and other eczema, due to unspecified cause 08/18/2008 04/09/2009 Contact dermatitis and other eczema due to other specified agent 08/18/2008 04/09/2009 Other atopic dermatitis and related conditions 08/18/2008 04/09/2009 XEROSIS///SEBACEOUS GLAND DIS NEC 08/18/2008 04/09/2009 Rosacea 08/18/2008 10/13/2009 TELANGIECTASIAS///CAPILLARY DIS NEC/NOS 08/18/2008 10/13/2009 Irritable bowel syndrome 08/19/1997 Lumbago 10/13/2009 Sprain of neck 10/13/2009 Enlargement of lymph nodes 0 10/13/2009 Anal and rectal polyp 2009 Unspecified hemorrhoids with out mention of complication 10/13/2009 Benign neoplasm of colon documented as of this encounter (statuses as of 12/04/2022) [facility] History of Past illness Narrative* Problem Noted Date Diagnosed Date Resolved Date Abdominal pain, left lower quadrant 12/03/2012 06/05/2016 Bilateral inguinal hernia (BIH) 07/04/2010 11/01/2011 Viral warts, unspecified 02/03/2010 Irritant dermatitis 02/03/2010 06/06/19 17 Other seborrheic keratosis 02/03/2010 0 06/05/2016 Xerosis cutis 04/09/2009 04/09/2009 Eczematous Dermatitis: ?Contact type vs other 04/09/19 10 10/13/2009 Xerosis cutis 04/09/2009 10/13/2009 Contact dermatitis and other eczema, due to unspecified cause 08/18/2008 04/09/2009 Contact dermatitis and other eczema due to other specified agent 08/18/2008 04/09/2009 Other atopic dermatitis and related conditions 08/18/2008 04/09/2009 XEROSIS///SEBACEOUS GLAND DIS NEC 08/18/2008 04/09/2009 Rosacea 08/18/2008 10/13/2009 TELANGIECTASIAS///CAPILLARY DIS NEC/NOS 08/18/2008 10/13/2009 Irritable bowel syndrome 08/19/1997 Lumbago 10/13/2009 Sprain of neck 10/13/2009 Enlargement of lymph nodes 0 10/13/2009 Anal and rectal polyp 2009 Unspecified hemorrhoids with out mention of complication 10/13/2009 Benign neoplasm of colon documented as of this encounter (statuses as of 12/14/2022) [facility] History of Past illness Narrative* Problem Noted Date Diagnosed Date Resolved Date Abdominal pain, left lower quadrant 12/03/2012 06/05/2016 Bilateral inguinal hernia (BIH) 07/04/2010 11/01/2011 Viral warts, unspecified 02/03/2010 Irritant dermatitis 02/03/2010 06/06/19 17 Other seborrheic keratosis 02/03/2010 0 06/05/2016 Xerosis cutis 04/09/2009 04/09/2009 Eczematous Dermatitis: ?Contact type vs other 04/09/19 10 10/13/2009 Xerosis cutis 04/09/2009 10/13/2009 Contact dermatitis and other eczema, due to unspecified cause 08/18/2008 04/09/2009 Contact dermatitis and other eczema due to other specified agent 08/18/2008 04/09/2009 Other atopic dermatitis and related conditions 08/18/2008 04/09/2009 XEROSIS///SEBACEOUS GLAND DIS NEC 08/18/2008 04/09/2009 Rosacea 08/18/2008 10/13/2009 TELANGIECTASIAS///CAPILLARY DIS NEC/NOS 08/18/2008 10/13/2009 Irritable bowel syndrome 08/19/1997 Lumbago 10/13/2009 Sprain of neck 10/13/2009 Enlargement of lymph nodes 0 10/13/2009 Anal and rectal polyp 2009 Unspecified hemorrhoids with out mention of complication 10/13/2009 Benign neoplasm of colon documented as of this encounter (statuses as of 12/23/2022) [facility] History of Past illness Narrative* Problem Noted Date Diagnosed Date Resolved Date Abdominal pain, left lower quadrant 12/03/2012 06/05/2016 Bilateral inguinal hernia (BIH) 07/04/2010 11/01/2011 Viral warts, unspecified 02/03/2010 Irritant dermatitis 02/03/2010 06/06/19 17 Other seborrheic keratosis 02/03/2010 0 06/05/2016 Xerosis cutis 04/09/2009 04/09/2009 Eczematous Dermatitis: ?Contact type vs other 04/09/19 10 10/13/2009 Xerosis cutis 04/09/2009 10/13/2009 Contact dermatitis and other eczema, due to unspecified cause 08/18/2008 04/09/2009 Contact dermatitis and other eczema due to other specified agent 08/18/2008 04/09/2009 Other atopic dermatitis and related conditions 08/18/2008 04/09/2009 XEROSIS///SEBACEOUS GLAND DIS NEC 08/18/2008 04/09/2009 Rosacea 08/18/2008 10/13/2009 TELANGIECTASIAS///CAPILLARY DIS NEC/NOS 08/18/2008 10/13/2009 Irritable bowel syndrome 08/19/1997 Lumbago 10/13/2009 Sprain of neck 10/13/2009 Enlargement of lymph nodes 0 10/13/2009 Anal and rectal polyp 2009 Unspecified hemorrhoids with out mention of complication 10/13/2009 Benign neoplasm of colon documented as of this encounter (statuses as of 12/29/2022) [facility] History of Past illness Narrative* Problem Noted Date Diagnosed Date Resolved Date Abdominal pain, left lower quadrant 12/03/2012 06/05/2016 Bilateral inguinal hernia (BIH) 07/04/2010 11/01/2011 Viral warts, unspecified 02/03/2010 Irritant dermatitis 02/03/2010 06/06/19 17 Other seborrheic keratosis 02/03/2010 0 06/05/2016 Xerosis cutis 04/09/2009 04/09/2009 Eczematous Dermatitis: ?Contact type vs other 04/09/19 10 10/13/2009 Xerosis cutis 04/09/2009 10/13/2009 Contact dermatitis and other eczema, due to unspecified cause 08/18/2008 04/09/2009 Contact dermatitis and other eczema due to other specified agent 08/18/2008 04/09/2009 Other atopic dermatitis and related conditions 08/18/2008 04/09/2009 XEROSIS///SEBACEOUS GLAND DIS NEC 08/18/2008 04/09/2009 Rosacea 08/18/2008 10/13/2009 TELANGIECTASIAS///CAPILLARY DIS NEC/NOS 08/18/2008 10/13/2009 Irritable bowel syndrome 08/19/1997 Lumbago 10/13/2009 Sprain of neck 10/13/2009 Enlargement of lymph nodes 0 10/13/2009 Anal and rectal polyp 2009 Unspecified hemorrhoids with out mention of complication 10/13/2009 Benign neoplasm of colon documented as of this encounter (statuses as of 01/16/2023) [facility] History of Past illness Narrative* Problem Noted Date Diagnosed Date Resolved Date Abdominal pain, left lower quadrant 12/03/2012 06/05/2016 Bilateral inguinal hernia (BIH) 07/04/2010 11/01/2011 Viral warts, unspecified 02/03/2010 Irritant dermatitis 02/03/2010 06/06/19 17 Other seborrheic keratosis 02/03/2010 0 06/05/2016 Xerosis cutis 04/09/2009 04/09/2009 Eczematous Dermatitis: ?Contact type vs other 04/09/19 10 10/13/2009 Xerosis cutis 04/09/2009 10/13/2009 Contact dermatitis and other eczema, due to unspecified cause 08/18/2008 04/09/2009 Contact dermatitis and other eczema due to other specified agent 08/18/2008 04/09/2009 Other atopic dermatitis and related conditions 08/18/2008 04/09/2009 XEROSIS///SEBACEOUS GLAND DIS NEC 08/18/2008 04/09/2009 Rosacea 08/18/2008 10/13/2009 TELANGIECTASIAS///CAPILLARY DIS NEC/NOS 08/18/2008 10/13/2009 Irritable bowel syndrome 08/19/1997 Lumbago 10/13/2009 Sprain of neck 10/13/2009 Enlargement of lymph nodes 0 10/13/2009 Anal and rectal polyp 2009 Unspecified hemorrhoids with out mention of complication 10/13/2009 Benign neoplasm of colon documented as of this encounter (statuses as of 04/02/2023) [facility] History of Past illness Narrative* Problem Noted Date Diagnosed Date Resolved Date Abdominal pain, left lower quadrant 12/03/2012 06/05/2016 Bilateral inguinal hernia (BIH) 07/04/2010 11/01/2011 Viral warts, unspecified 02/03/2010 Irritant dermatitis 02/03/2010 06/06/19 17 Other seborrheic keratosis 02/03/2010 0 06/05/2016 Xerosis cutis 04/09/2009 04/09/2009 Eczematous Dermatitis: ?Contact type vs other 04/09/19 10 10/13/2009 Xerosis cutis 04/09/2009 10/13/2009 Contact dermatitis and other eczema, due to unspecified cause 08/18/2008 04/09/2009 Contact dermatitis and other eczema due to other specified agent 08/18/2008 04/09/2009 Other atopic dermatitis and related conditions 08/18/2008 04/09/2009 XEROSIS///SEBACEOUS GLAND DIS NEC 08/18/2008 04/09/2009 Rosacea 08/18/2008 10/13/2009 TELANGIECTASIAS///CAPILLARY DIS NEC/NOS 08/18/2008 10/13/2009 Irritable bowel syndrome 08/19/1997 Lumbago 10/13/2009 Sprain of neck 10/13/2009 Enlargement of lymph nodes 0 10/13/2009 Anal and rectal polyp 2009 Unspecified hemorrhoids with out mention of complication 10/13/2009 Benign neoplasm of colon documented as of this encounter (statuses as of 04/13/2023) [facility] History of Past illness Narrative* Problem Noted Date Diagnosed Date Resolved Date Abdominal pain, left lower quadrant 12/03/2012 06/05/2016 Bilateral inguinal hernia (BIH) 07/04/2010 11/01/2011 Viral warts, unspecified 02/03/2010 Irritant dermatitis 02/03/2010 06/06/19 17 Other seborrheic keratosis 02/03/2010 0 06/05/2016 Xerosis cutis 04/09/2009 04/09/2009 Eczematous Dermatitis: ?Contact type vs other 04/09/19 10 10/13/2009 Xerosis cutis 04/09/2009 10/13/2009 Contact dermatitis and other eczema, due to unspecified cause 08/18/2008 04/09/2009 Contact dermatitis and other eczema due to other specified agent 08/18/2008 04/09/2009 Other atopic dermatitis and related conditions 08/18/2008 04/09/2009 XEROSIS///SEBACEOUS GLAND DIS NEC 08/18/2008 04/09/2009 Rosacea 08/18/2008 10/13/2009 TELANGIECTASIAS///CAPILLARY DIS NEC/NOS 08/18/2008 10/13/2009 Irritable bowel syndrome 08/19/1997 Lumbago 10/13/2009 Sprain of neck 10/13/2009 Enlargement of lymph nodes 0 10/13/2009 Anal and rectal polyp 2009 Unspecified hemorrhoids with out mention of complication 10/13/2009 Benign neoplasm of colon documented as of this encounter (statuses as of 04/22/2023) [facility] History of Past illness Narrative* Problem Noted Date Diagnosed Date Resolved Date Abdominal pain, left lower quadrant 12/03/2012 06/05/2016 Bilateral inguinal hernia (BIH) 07/04/2010 11/01/2011 Viral warts, unspecified 02/03/2010 Irritant dermatitis 02/03/2010 06/06/19 17 Other seborrheic keratosis 02/03/2010 0 06/05/2016 Xerosis cutis 04/09/2009 04/09/2009 Eczematous Dermatitis: ?Contact type vs other 04/09/19 10 10/13/2009 Xerosis cutis 04/09/2009 10/13/2009 Contact dermatitis and other eczema, due to unspecified cause 08/18/2008 04/09/2009 Contact dermatitis and other eczema due to other specified agent 08/18/2008 04/09/2009 Other atopic dermatitis and related conditions 08/18/2008 04/09/2009 XEROSIS///SEBACEOUS GLAND DIS NEC 08/18/2008 04/09/2009 Rosacea 08/18/2008 10/13/2009 TELANGIECTASIAS///CAPILLARY DIS NEC/NOS 08/18/2008 10/13/2009 Irritable bowel syndrome 08/19/1997 Lumbago 10/13/2009 Sprain of neck 10/13/2009 Enlargement of lymph nodes 0 10/13/2009 Anal and rectal polyp 2009 Unspecified hemorrhoids with out mention of complication 10/13/2009 Benign neoplasm of colon documented as of this encounter (statuses as of 04/27/2023) [facility] History of Past illness Narrative* Problem Noted Date Diagnosed Date Resolved Date Abdominal pain, left lower quadrant 12/03/2012 06/05/2016 Bilateral inguinal hernia (BIH) 07/04/2010 11/01/2011 Viral warts, unspecified 02/03/2010 Irritant dermatitis 02/03/2010 06/06/19 17 Other seborrheic keratosis 02/03/2010 0 06/05/2016 Xerosis cutis 04/09/2009 04/09/2009 Eczematous Dermatitis: ?Contact type vs other 04/09/19 10 10/13/2009 Xerosis cutis 04/09/2009 10/13/2009 Contact dermatitis and other eczema, due to unspecified cause 08/18/2008 04/09/2009 Contact dermatitis and other eczema due to other specified agent 08/18/2008 04/09/2009 Other atopic dermatitis and related conditions 08/18/2008 04/09/2009 XEROSIS///SEBACEOUS GLAND DIS NEC 08/18/2008 04/09/2009 Rosacea 08/18/2008 10/13/2009 TELANGIECTASIAS///CAPILLARY DIS NEC/NOS 08/18/2008 10/13/2009 Irritable bowel syndrome 08/19/1997 Lumbago 10/13/2009 Sprain of neck 10/13/2009 Enlargement of lymph nodes 0 10/13/2009 Anal and rectal polyp 2009 Unspecified hemorrhoids with out mention of complication 10/13/2009 Benign neoplasm of colon documented as of this encounter (statuses as of 05/01/2023) [facility] History of Past illness Narrative* Problem Noted Date Diagnosed Date Resolved Date Abdominal pain, left lower quadrant 12/03/2012 06/05/2016 Bilateral inguinal hernia (BIH) 07/04/2010 11/01/2011 Viral warts, unspecified 02/03/2010 Irritant dermatitis 02/03/2010 06/06/19 17 Other seborrheic keratosis 02/03/2010 0 06/05/2016 Xerosis cutis 04/09/2009 04/09/2009 Eczematous Dermatitis: ?Contact type vs other 04/09/19 10 10/13/2009 Xerosis cutis 04/09/2009 10/13/2009 Contact dermatitis and other eczema, due to unspecified cause 08/18/2008 04/09/2009 Contact dermatitis and other eczema due to other specified agent 08/18/2008 04/09/2009 Other atopic dermatitis and related conditions 08/18/2008 04/09/2009 XEROSIS///SEBACEOUS GLAND DIS NEC 08/18/2008 04/09/2009 Rosacea 08/18/2008 10/13/2009 TELANGIECTASIAS///CAPILLARY DIS NEC/NOS 08/18/2008 10/13/2009 Irritable bowel syndrome 08/19/1997 Lumbago 10/13/2009 Sprain of neck 10/13/2009 Enlargement of lymph nodes 0 10/13/2009 Anal and rectal polyp 2009 Unspecified hemorrhoids with out mention of complication 10/13/2009 Benign neoplasm of colon documented as of this encounter (statuses as of 05/02/2023) [facility] History of Past illness Narrative* Problem Noted Date Diagnosed Date Resolved Date Abdominal pain, left lower quadrant 12/03/2012 06/05/2016 Bilateral inguinal hernia (BIH) 07/04/2010 11/01/2011 Viral warts, unspecified 02/03/2010 Irritant dermatitis 02/03/2010 06/06/19 17 Other seborrheic keratosis 02/03/2010 0 06/05/2016 Xerosis cutis 04/09/2009 04/09/2009 Eczematous Dermatitis: ?Contact type vs other 04/09/19 10 10/13/2009 Xerosis cutis 04/09/2009 10/13/2009 Contact dermatitis and other eczema, due to unspecified cause 08/18/2008 04/09/2009 Contact dermatitis and other eczema due to other specified agent 08/18/2008 04/09/2009 Other atopic dermatitis and related conditions 08/18/2008 04/09/2009 XEROSIS///SEBACEOUS GLAND DIS NEC 08/18/2008 04/09/2009 Rosacea 08/18/2008 10/13/2009 TELANGIECTASIAS///CAPILLARY DIS NEC/NOS 08/18/2008 10/13/2009 Irritable bowel syndrome 08/19/1997 Lumbago 10/13/2009 Sprain of neck 10/13/2009 Enlargement of lymph nodes 0 10/13/2009 Anal and rectal polyp 2009 Unspecified hemorrhoids with out mention of complication 10/13/2009 Benign neoplasm of colon documented as of this encounter (statuses as of 05/02/2023) [facility] History of Past illness Narrative* Problem Noted Date Diagnosed Date Resolved Date Abdominal pain, left lower quadrant 12/03/2012 06/05/2016 Bilateral inguinal hernia (BIH) 07/04/2010 11/01/2011 Viral warts, unspecified 02/03/2010 Irritant dermatitis 02/03/2010 06/06/19 17 Other seborrheic keratosis 02/03/2010 0 06/05/2016 Xerosis cutis 04/09/2009 04/09/2009 Eczematous Dermatitis: ?Contact type vs other 04/09/19 10 10/13/2009 Xerosis cutis 04/09/2009 10/13/2009 Contact dermatitis and other eczema, due to unspecified cause 08/18/2008 04/09/2009 Contact dermatitis and other eczema due to other specified agent 08/18/2008 04/09/2009 Other atopic dermatitis and related conditions 08/18/2008 04/09/2009 XEROSIS///SEBACEOUS GLAND DIS NEC 08/18/2008 04/09/2009 Rosacea 08/18/2008 10/13/2009 TELANGIECTASIAS///CAPILLARY DIS NEC/NOS 08/18/2008 10/13/2009 Irritable bowel syndrome 08/19/1997 Lumbago 10/13/2009 Sprain of neck 10/13/2009 Enlargement of lymph nodes 0 10/13/2009 Anal and rectal polyp 2009 Unspecified hemorrhoids with out mention of complication 10/13/2009 Benign neoplasm of colon documented as of this encounter (statuses as of 05/08/2023) [facility] History of Past illness Narrative* Problem Noted Date Diagnosed Date Resolved Date Abdominal pain, left lower quadrant 12/03/2012 06/05/2016 Bilateral inguinal hernia (BIH) 07/04/2010 11/01/2011 Viral warts, unspecified 02/03/2010 Irritant dermatitis 02/03/2010 06/06/19 17 Other seborrheic keratosis 02/03/2010 0 06/05/2016 Xerosis cutis 04/09/2009 04/09/2009 Eczematous Dermatitis: ?Contact type vs other 04/09/19 10 10/13/2009 Xerosis cutis 04/09/2009 10/13/2009 Contact dermatitis and other eczema, due to unspecified cause 08/18/2008 04/09/2009 Contact dermatitis and other eczema due to other specified agent 08/18/2008 04/09/2009 Other atopic dermatitis and related conditions 08/18/2008 04/09/2009 XEROSIS///SEBACEOUS GLAND DIS NEC 08/18/2008 04/09/2009 Rosacea 08/18/2008 10/13/2009 TELANGIECTASIAS///CAPILLARY DIS NEC/NOS 08/18/2008 10/13/2009 Irritable bowel syndrome 08/19/1997 Lumbago 10/13/2009 Sprain of neck 10/13/2009 Enlargement of lymph nodes 0 10/13/2009 Anal and rectal polyp 2009 Unspecified hemorrhoids with out mention of complication 10/13/2009 Benign neoplasm of colon documented as of this encounter (statuses as of 06/08/2023) [facility] Selma Sage [facility] June 08, 2023 3:55pm Note Date/Time June 08, 2023 3:[address] [facility] Medical Records Department [address] [place] [address] Counseling Note - Pharmacy 06/08/23 1555 MR#: [id number] Acct: [id number] Name: HOMERO MEI Rep #:[id number] : 1945 77 From: Selma Sage PCP: Dr. Moiz Chaudhary MD Status :ADM IN Y Location: [place] [address] [place] Med Reconciliation Pharmacy Service has performed discharge medication reconciliation for this patient. The patient's discharge medication list was reviewed for discrepancies and discrepancies were resolved. Medications at Discharge Home Medications atorvastatin 10 mg tablet 20 mg PO DAILY 03/17/20 amlodipine 2.5 mg tablet 2.5 mg PO DAILY 06/04/23 donepezil 5 mg tablet 5 mg PO DAILY 06/04/23 ferrous sulfate 325 mg (65 mg iron) tablet (FeroSul) 325 mg PO Q48 #0 tabs 06/08/23 melatonin 3 mg tablet 3 mg PO QHS PRN Insomnia #0 tabs 06/08/23 pantoprazole 40 mg tablet,delayed release (Protonix) 40 mg PO BID 10 days #20 tabs 06/08/23 quetiapine 25 mg tablet 25 mg PO DINNER #0 tabs 06/08/23 tamsulosin 0.4 mg capsule 0.4 mg PO DAILY@1730 #0 caps 06/08/23 06/08/23 1555 <Electronically signed by Selma Sage> Date _ Selma Sage Cosigner Signature (if applicable): Date CC: ~ Signed [facility] Work Phone: Evaluation + Plan note No data available for this section [facility] Evaluation note* Diagnosis 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rder (HCC) Mixed hyperlipidemia Essential hypertension Unspecified essential hypertension documented [facility] this encounter [facility] Essential hypertension- Primary Unspecified essential hypertension Mixed hyperlipidemia CHRISTIANO (obstructive sleep apnea) Obstructive sleep apnea (adult) (pediatric) Brain fog 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rder (HCC) documented [facility] Diagnosis It band syndrome, right- Primary Essential hypertension Unspecified essential hypertension Need for influenza vaccination Need for prophylactic vaccination and inoculation against influenza Need for COVID-19 vaccine [facility] Diagnosis Essential hypertension Unspecified essential hypertension [facility] Diagnosis Allergic conjunctivitis of both eyes- Primary Other chronic allergic conjunctivitis Hypertension, unspecified type [facility] Diagnosis 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rder (HCC) Mixed hyperlipidemia [facility] Diagnosis Hypertension, unspecified type documented in this encounter [facility] note* Diagnosis Essential hypertension- Primary Unspecified essential hypertension 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 disturbance, mood disturbance, or anxiety, unspecified dementia severity, unspecified timing of dementia onset (HCC) Benign prostatic hyperplasia, unspecified whether lower urinary tract symptoms present Hypotension, unspecified hypotension type- Primary Coronary artery disease involving [place]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[place] heart without angina pectoris Chronic heart failure with preserved ejection fraction (HCC) Chronic diastolic congestive heart failure (HCC) Chronic diastolic heart failure senior care current use of diuretic Chronic heart failure with preserved ejection fraction (HCC)- [facility] Diagnosis Pre-operative examination- Primary Preoperative examination, unspecified Coronary artery disease involving [place]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[place] heart without angina pectoris Essential hypertension Unspecified essential hypertension Mixed hyperlipidemia Postoperative atrial fibrillation (HCC) Cardiac complications Chronic heart failure with preserved ejection fraction (HCC) CHRISTIANO (obstructive sleep apnea) Obstructive sleep apnea (adult) (pediatric) Alzheimer's dementia without behavioral disturbance, psychotic disturbance, mood disturbance, or anxiety, unspecified dementia severity, unspecified timing of dementia onset (HCC) Benign prostatic hyperplasia, unspecified whether lower urinary tract symptoms present Chronic diastolic congestive heart failure (HCC) Chronic diastolic heart failure documented in this encounter [facility] note* Diagnosis Pre-operative examination- Primary Preoperative examination, unspecified Coronary artery disease involving [place]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[place] heart without angina pectoris Essential hypertension Unspecified essential hypertension Mixed hyperlipidemia Postoperative atrial fibrillation (HCC) Cardiac complications Chronic heart failure with preserved ejection fraction (HCC) CHRISTIANO (obstructive sleep apnea) Obstructive sleep apnea (adult) (pediatric) Alzheimer's dementia without behavioral disturbance, psychotic disturbance, mood disturbance, or anxiety, unspecified dementia severity, unspecified timing of dementia onset (HCC) Benign prostatic hyperplasia, unspecified whether lower urinary tract symptoms present Irritable bowel syndrome, unspecified type- Primary Screen for colon cancer Special screening for malignant neoplasms, colon History of colonic polyps Personal history of colonic polyps documented in this encounter [facility] note* Diagnosis Pre-operative examination- Primary Preoperative examination, unspecified Coronary artery disease involving [place]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[place] heart without angina pectoris Essential hypertension Unspecified essential hypertension Mixed hyperlipidemia Postoperative atrial fibrillation (HCC) Cardiac complications Chronic heart failure with preserved ejection fraction (HCC) CHRISTIANO (obstructive sleep apnea) Obstructive sleep apnea (adult) (pediatric) Alzheimer's dementia without behavioral disturbance, psychotic disturbance, mood disturbance, or anxiety, unspecified dementia severity, unspecified timing of dementia onset (HCC) Benign prostatic hyperplasia, unspecified whether lower urinary tract symptoms present Altered mental status, unspecified altered mental status type- Primary Chronic heart failure with preserved ejection fraction (HCC)- Primary documented in this encounter [facility] note* Diagnosis Pre-operative examination- Primary Preoperative examination, unspecified Coronary artery disease involving [place]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[place] heart without angina pectoris Essential hypertension Unspecified essential hypertension Mixed hyperlipidemia Postoperative atrial fibrillation (HCC) Cardiac complications Chronic heart failure with preserved ejection fraction (HCC) CHRISTIANO (obstructive sleep apnea) Obstructive sleep apnea (adult) (pediatric) Alzheimer's dementia without behavioral disturbance, psychotic disturbance, mood disturbance, or anxiety, unspecified dementia severity, unspecified timing of dementia onset (HCC) Benign prostatic hyperplasia, unspecified whether lower urinary tract symptoms present Gastrointestinal hemorrhage, unspecified gastrointestinal hemorrhage type- Primary Anemia, unspecified type Fall in home, subsequent encounter Altered mental status, unspecified altered mental status type Rib contusion, left, subsequent encounter Hypotension, unspecified hypotension type Alzheimer's disease (HCC) Alzheimer's disease Coronary artery disease involving [place]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[place] heart without angina pectoris Chronic heart failure with preserved ejection fraction (HCC) senior care current use of diuretic Hospital discharge follow-up Other follow-up examination Chronic diastolic congestive heart failure (HCC) Chronic diastolic heart failure Chronic heart failure with preserved ejection fraction (HCC)- Primary documented in this encounter [facility] note* Diagnosis Pre-operative examination- Primary Preoperative examination, unspecified Coronary artery disease involving [place]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[place] heart without angina pectoris Essential hypertension Unspecified essential hypertension Mixed hyperlipidemia Postoperative atrial fibrillation (HCC) Cardiac complications Chronic heart failure with preserved ejection fraction (HCC) CHRISTIANO (obstructive sleep apnea) Obstructive sleep apnea (adult) (pediatric) Alzheimer's dementia without behavioral disturbance, psychotic disturbance, mood disturbance, or anxiety, unspecified dementia severity, unspecified timing of dementia onset (HCC) Benign prostatic hyperplasia, unspecified whether lower urinary tract symptoms present Chronic heart failure with preserved ejection fraction (HCC)- Primary documented in this encounter [facility] note* Diagnosis Pre-operative examination- Primary Preoperative examination, unspecified Coronary artery disease involving [place]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[place] heart without angina pectoris Essential hypertension Unspecified essential hypertension Mixed hyperlipidemia Postoperative atrial fibrillation (HCC) Cardiac complications Chronic heart failure with preserved ejection fraction (HCC) CHRISTIANO (obstructive sleep apnea) Obstructive sleep apnea (adult) (pediatric) Alzheimer's dementia without behavioral disturbance, psychotic disturbance, mood disturbance, or anxiety, unspecified dementia severity, unspecified timing of dementia onset (HCC) Benign prostatic hyperplasia, unspecified whether lower urinary tract symptoms present Tubular adenoma of colon- Primary Benign neoplasm of colon [facility] Diagnosis Pre-operative examination- Primary Preoperative examination, unspecified Coronary artery disease involving [place]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[place] heart without angina pectoris Essential hypertension Unspecified essential hypertension Mixed hyperlipidemia Postoperative atrial fibrillation (HCC) Cardiac complications Chronic heart failure with preserved ejection fraction (HCC) CHRISTIANO (obstructive sleep apnea) Obstructive sleep apnea (adult) (pediatric) Alzheimer's dementia without behavioral disturbance, psychotic disturbance, mood disturbance, or anxiety, unspecified dementia severity, unspecified timing of dementia onset (HCC) Benign prostatic hyperplasia, unspecified whether lower urinary tract symptoms present Essential (primary) hypertension- Primary Unspecified essential hypertension Mixed hyperlipidemia Alzheimer's disease (HCC) Alzheimer's disease Coronary artery disease involving [place]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[place] heart without angina pectoris Chronic diastolic congestive heart failure (HCC) Chronic diastolic heart failure Benign prostatic hyperplasia with nocturia Normocytic anemia due to blood loss Iron deficiency anemia secondary to blood loss (chronic) Gastrointestinal hemorrhage, unspecified gastrointestinal hemorrhage type Encounter for immunization Need for other specified prophylactic vaccination against single bacterial disease History of fall Personal history of fall documented in this encounter [facility] Discharge instructions No data available for this section [facility] Progress note No data available for this section [facility] Reason for referral (narrative)* Diagnostic Procedure Only (Urgent) - New Request Specialty Diagnoses / Procedures Referred By Contac t Referred To Contact [facility]LECULAR [facility] FUNCTIONAL [facility]AGING Diagnoses Abnormal electrocardiogram Procedures NM CARDIAC PERF STRESS/PHARM MYOCARDIAL SPECT MULTIPLE STUDIES Lenin Chaudhary MD [address] [place] [address] [facility] [address] [place] [address] Referral ID Status Reason Start Date Expiration Date Visits Requested Visits Authorized [id number] New Request Auto-Generat ed Referral 4 01/05/2025 1 1 * Outpatient Procedure (Urgent) - New Request Specialty Diagnoses / Procedures Referred By Contac t Referred To Contact [facility] Diagnoses Abnormal electrocardiogram Procedures ECHO ECHO TTHRC R-T 2D W/WOM-MODE COMPL SPEC&COLR D Lenin Chaudhary MD [address] [place] [address] [facility] [address] [place] [address] Referral ID Status Reason Start Date Expiration Date Visits Requested Visits Authorized [id number] New Request Auto-Generat ed Referral 4 12/06/2024 1 1 * Outpatient Procedure (Routine) - New Request Specialty Diagnoses / Procedures Referred By Contac t Referred To Contact [facility] Diagnoses Pre-op evaluation Procedures ECG COMPLETE ECG ROUTINE ECG W/LEAST 12 LDS W/I&R Lenin Chaudhary MD [address] [place] [address] [place] [address] [place] [address] Referral ID Status Reason Start Date Expiration Date Visits Requested Visits Authorized [id number] New Request Auto-Generat ed Referral 4 12/06/2024 1 1 [facility] (narrative)* Outpatient Procedure (Urgent) - Closed Specialty Diagnoses / Procedures Referred By Contac t Referred To Contact [facility] Diagnoses Abnormal electrocardiogram Procedures ECHO ECHO TTHRC R-T 2D W/WOM-MODE COMPL SPEC&COLR Lenin Scanlon MD [address] [place] [address] [facility] [address] [place] [address] Referral ID Status Reason Start Date Expiration Date V isits Requested Visits Authorized [id number] Closed Auto-Generate d Referral 12/12/2023 02/11/2024 1 1 [facility] for [facility] (narrative)* Outpatient Procedure (Routine) - New Request Specialty Diagnoses / Procedures Referred By Contac t Referred To [facility] Diagnoses Multiple vessel coronary artery disease CHRISTIANO (obstructive sleep apnea) Preoperative testing Procedures US CAROTID ARTERIES GREGORIO VAS LAB DUPLEX SCAN EXTRACRANIAL ART COMPL BI STUDY Caroline Orlando APRN.POLISHING MACHINE TENDER [address] [place] [address] [facility] [place] [address] [place] [address] Referral ID Status Reason Start Date Expiration Date Visits Requested Visits Authorized [id number] New Request Auto-Generat ed Referral 01/22/2024 01/21/2025 1 1 * MRI/CT (Routine) - Authorized Specialty Diagnoses / Procedures Referred By Contac t Referred To Contact CT IMAGING Diagnoses Multiple vessel coronary artery disease CHRISTIANO (obstructive sleep apnea) Preoperative testing Procedures CT CHEST WO IVCON DIAGNOSTIC COMPUTED TOMOGRAPHY THORAX W/O CNTRST Caroline Orlando APRN.POLISHING MACHINE TENDER [address] [place] [address] Ct [facility] Referral ID Status Reason Start Date Expiration Date Visits Requested Visits Authorized [id number] Authorized Auto-Generat ed Referral 01/22/2024 02/20/2025 1 1 * Outpatient Procedure (Routine) - Authorized Specialty Diagnoses / Procedures Referred By Contac t Referred To Contact [facility] Diagnoses Multiple vessel coronary artery disease CHRISTIANO (obstructive sleep apnea) Preoperative testing Procedures LUNG VOLUMES Caroline Orlando APRN.POLISHING MACHINE TENDER [address] [place] [address] [facility] [place] [address] [place] [address] Referral ID Status Reason Start Date Expiration Date Visits Requested Visits Authorized [id number] Authorized Auto-Generat ed Referral 01/22/2024 02/20/2025 1 1 * Outpatient Procedure (Routine) - Authorized Specialty Diagnoses / Procedures Referred By Contac t Referred To Contact [facility] Diagnoses Multiple vessel coronary artery disease CHRISTIANO (obstructive sleep apnea) Preoperative testing Procedures LUNG DIFFUSION CAPACITY (DLCO) DIFFUSING CAPACITY Caroline Orlando APRN.POLISHING MACHINE TENDER [address] [place] [address] [facility] [place] [address] Referral ID Status Reason Start Date Expiration Date Visits Requested Visits Authorized [id number] Authorized Auto-Generat ed Referral 01/22/2024 02/20/2025 1 1 * Outpatient Procedure (Routine) - Authorized Specialty Diagnoses / Procedures Referred By Contac t Referred To Contact [facility] Diagnoses Multiple vessel coronary artery disease CHRISTIANO (obstructive sleep apnea) Preoperative testing Procedures SPIROMETRY BASELINE ONLY SPMTRY W/VC EXPIRATORY MO W/WO MXML VOL VNTJ Caroline Orlando APRN.POLISHING MACHINE TENDER [address] [place] [address] [facility] [address] [place] [address] Referral ID Status Reason Start Date Expiration Date Visits Requested Visits Authorized [id number] Authorized Auto-Generat ed Referral 01/22/2024 02/20/2025 1 1 [facility] for referral (narrative)* Outpatient Procedure (Routine) - Closed Specialty Diagnoses / Procedures Referred By Contac t Referred To Contact [facility] Diagnoses Multiple vessel coronary artery disease CHRISTIANO (obstructive sleep apnea) Preoperative testing Procedures US CAROTID ARTERIES GREGORIO VAS LAB DUPLEX SCAN EXTRACRANIAL ART COMPL BI STUDY Caroline Orlando APRN.POLISHING MACHINE TENDER [address] [place] [address] [facility] [place] [address] [place] [address] Referral ID Status Reason Start Date Expiration Date V isits Requested Visits Authorized [id number] Closed Auto-Generate d Referral 01/22/2024 01/21/2025 1 1 [facility] for referral (narrative)* Outpatient Procedure (Routine) - New Request Specialty Diagnoses / Procedures Referred By Contac t Referred To Contact [facility] [place] Diagnoses S/P CABG (coronary artery bypass graft) Procedures EXERCISE STRESS ECG (WITHOUT IMAGING) CV STRS TST XERS&/OR RX CONT ECG TRCG ONLY Caroline Orlando APRN.POLISHING MACHINE TENDER [address] [place] [address] [facility] [address] [address] Referral ID Status Reason Start Date Expiration Date Visits Requested Visits Authorized [id number] New Request Auto-Generat ed Referral 03/24/2024 03/24/2025 1 1 * Outpatient Procedure (Routine) - New Request Specialty Diagnoses / Procedures Referred By Contac t Referred To Contact [facility] [place] Diagnoses S/P CABG (coronary artery bypass graft) Procedures EXERCISE STRESS ECG (WITHOUT IMAGING) CV STRS TST XERS&/OR RX CONT ECG TRCG ONLY Caroline Orlando APRN.POLISHING MACHINE TENDER [address] [place] [address] [facility] [place] [address] [place] [address] Referral ID Status Reason Start Date Expiration Date Visits Requested Visits Authorized [id number] New Request Auto-Generat ed Referral 03/24/2024 03/24/2025 1 1 [facility] (narrative)No reason for referral information availableWSelect [facility] Phone: Reason for visit Narrative* Outpatient Procedure (Urgent) - Closed Specialty Diagnoses / Procedures Referred By Contac t Referred To Contact [facility] [place] Diagnoses Abnormal electrocardiogram Procedures ECHO ECHO TTHRC R-T 2D W/WOM-MODE COMPL SPEC&COLR D Lenin Chaudhary MD [address] [place] [address] [facility] [place] [address] [place] [address] Referral ID Status Reason Start Date Expiration Date V isits Requested Visits Authorized [id number] Closed Auto-Generate d Referral 12/12/2023 02/11/2024 1 1 [facility] visit Narrative* Diagnostic Procedure Only (Urgent) - Closed Specialty Diagnoses / Procedures Referred By Contac t Referred To Contact [facility] Diagnoses Abnormal electrocardiogram Procedures NM CARDIAC PERF STRESS/PHARM MYOCARDIAL SPECT MULTIPLE STUDIES Lenin Chaudhary MD [address] [place] [place] [id number] [facility] [address] [id number] Referral ID Status Reason Start Date Expiration Date V isits Requested Visits Authorized [id number] Closed Auto-Generate d Referral 12/13/2023 02/19/2024 2 2 [facility] visit Narrative* Outpatient Procedure (Routine) - Closed Specialty Diagnoses / Procedures Referred By Contac t Referred To Contact [facility] [place] Diagnoses Multiple vessel coronary artery disease CHRISTIANO (obstructive sleep apnea) Preoperative testing Procedures US CAROTID ARTERIES GREGORIO VAS LAB DUPLEX SCAN EXTRACRANIAL ART COMPL BI STUDY Caroline Orlando, CHEMICAL RESEARCH ENGINEER.POLISHING MACHINE TENDER [address] [place] [address] [facility] [place] [id number] Referral ID Status Reason Start Date Expiration Date V isits Requested Visits Authorized [id number] Closed Auto-Generate d Referral 01/22/2024 01/21/2025 1 1 [facility] for visit Narrative* MRI/CT (Routine) - Closed Specialty Diagnoses / Procedures Referred By Contac t Referred To Contact CT IMAGING Diagnoses Microscopic hematuria Procedures CT UROGRAM WO/W IVCON CT ABD & PELVIS W/WO CONTRST 1+ BODY Kobe Robertson, CHEMICAL RESEARCH ENGINEER.POLISHING MACHINE TENDER, DNP [address] [place] [address] Phone: tel: fax: CT IMAGING [facility] Referral ID Status Reason Start Date Expiration Date V isits Requested Visits Authorized [id number] Closed Auto-Generate d Referral 05/25/2024 06/10/2025 1 1 [facility] visit Narrative* Consult, Test, Treat (Routine) - Closed Specialty Diagnoses / Procedures Referred By Contac t Referred To Contact Cardiology Diagnoses Pulmonary hypertension (HCC) Procedures CONSULT TO CARDIOLOGY OFFICE/OUTPATIENT NEW HIGH MDM 60 MINUTES Lenin Chaudhary MD [address] [place] [address] Phone: tel: fax: Referral ID Status Reason Start Date Expiration Date V isits Requested Visits Authorized [id number] Closed PCP Requested Referral 12/14/2023 12/13/2024 1 1 [facility] for visit Narrative* Outpatient Procedure (Routine) - Closed Specialty Diagnoses / Procedures Referred By Contac t Referred To [facility] Diagnoses Screen for colon cancer History of colonic polyps Procedures COLONOSCOPY SCREENING COLONOSCOPY FLX DX W/COLLJ SPEC WHEN PFRMD Melani Curtis APRN.POLISHING MACHINE TENDER [address] [place] [address] Phone: tel: fax: Francisca Vazquez MD [address] [address] Phone: tel: fax: Referral ID Status Reason Start Date Expiration Date V isits Requested Visits Authorized [id number] Closed Auto-Generate d Referral 08/19/2024 02/18/2025 1 1 [facility] Advance Directives No Advanced Directives Records FoundDocuments on File Type Date Recorded Patient Primary Substance Abuse Counselor Expl anation Advance Directive(s) 11/23/2020 10:17 AM Advance Directive(s) 11/01/2020 3:27 PM Advance Directive(s) 04/12/2020 12:43 PM Advance Directive(s) 03/24/2020 10:00 AM Documents on File Type Date Recorded Patient Primary Substance Abuse Counselor Expl anation Advance Directive(s) 09/29/2022 3:43 PM Documents on File Type Date Recorded Patient Primary Substance Abuse Counselor Expl anation Advance Directive(s) 01/17/2023 9:11 AM Advance Directive(s) 09/29/2022 3:43 PM Documents on File Type Date Recorded Patient Primary Substance Abuse Counselor Expl anation Advance Directive(s) 01/17/2023 9:11 AM Advance Directive(s) 09/29/2022 3:43 PM Advance Directive Response Recorded Date/ Time Living Will Yes June 04, 2023 7:06pm Power of Commercial Horticulture Instructor Yes June 03 7:06pm Name of Medical Power of Commercial Horticulture Instructor INDY VICENTE ER June 04, 2023 7:06pm Advance Directive Response Recorded Date/ Time Name of Medical Power of Commercial Horticulture Instructor indy vicente er June 04, 2023 11:39pm Living Will Yes June 04, 2023 11:39pm Power of Commercial Horticulture Instructor Yes June 03 11:39pm Latest Code Status on File Code Status Date Activated Date Inactivated Comments DNR-CCA 06/12/2023 10:23 PM 06/18/2023 7:39 PM Question Answer Comments ICU transfer: Yes Intubation: No Documents on File Type Date Recorded Patient Primary Substance Abuse Counselor Expl anation Living Will Documentation 06/19/2023 2:02 PM Advance Directives and Livin g Will 06/19/2023 1:07 PM Advance Directive Response Recorded Date/ Time Living Will Yes March 27 12:03pm Power of Commercial Horticulture Instructor Yes March 27, 2024 12:03pm Name of Medical Power of Commercial Horticulture Instructor INDY GRIFFITH March 27, 2024 12:03pm Advance Directives on File No April 30, 2024 2:11pm Living Will Yes April 30, 2024 2:11pm Power of Commercial Horticulture Instructor Yes April 30 2:11pm Advance Directive Response Recorded Date/ Time Living Will Yes March 27 12:03pm Do you have a Healthcare Power of Commercial Horticulture Instructor? Yes March 27, 2024 12:03pm Name of Medical Power of Commercial Horticulture Instructor INDY GRIFFITH March 27, 2024 12:03pm Advance Directives on File No April 30, 2024 2:11pm Living Will Yes April 30, 2024 2:11pm Do you have a Healthcare Power of Commercial Horticulture Instructor? Yes April 30, 2024 2:11pm Advance Directive Response Recorded Date/ Time Advance Directives on File No April 30, 2024 2:11pm Living Will Yes April 30, 2024 2:11pm Do you have a Healthcare Power of Commercial Horticulture Instructor? Yes April 30, 2024 2:11pm Date Activated Date Inactivated Comments 09/08/2024 5:54 PM Question Answer Comments Full Code Order Discussed With: Patient Date Activated Date Inactivated Comments 09/08/2024 5:54 PM 09/10/2024 3:59 PM Date Activated Date Inactivated Comments 09/08/2024 5:54 PM 09/10/2024 3:59 PM Question Answer Comments Full Code Order Discussed With: Patient Reason for Referral Specialty Diagnoses / Procedures Referred By Contac t Referred To Contact Orthopedics Diagnoses It band syndrome, right Procedures CONSULT TO ORTHOPAEDICS OFFICE/OUTPATIENT [facility] 60-[place] [address] [place] [id number] Referral ID Status Reason Start Date Expiration Date Visits Requested Visits Authorized [id number] Pending Review PCP Requested Referral 11/29/2022 1 1 Specialty Diagnoses / Procedures Referred By Contac t Referred To Contact MR IMAGING Diagnoses Cognitive impairment, mild, so stated Procedures MRI BRAIN WO IVCON MRI BRAIN BRAIN STEM W/O CONTRAST MATERIAL Lenin Chaudhary MD [address] [place] [id number] [facility] Referral ID Status Reason Start Date Expiration Date Visits Requested Visits Authorized [id number] Pending Review Auto-Generat ed Referral 06/21/2022 07/21/2023 1 1 Specialty Diagnoses / Procedures Referred By Contac t Referred To Contact Neurology Diagnoses Mild cognitive impairment Procedures CONSULT TO NEUROLOGY OFFICE/OUTPATIENT [facility] 60-74 MINUTES Lenin Chaudhary MD [address] [place] [address] Referral ID Status Reason Start Date Expiration Date Visits Requested Visits Authorized [id number] Pending Review PCP Requested Referral 09/21/2022 09/21/2023 1 1 Specialty Diagnoses / Procedures Referred By Contac t Referred To Contact Diagnoses CHRISTIANO on CPAP Procedures CONSULT TO SLEEP MEDICINE - ADULT OFFICE/OUTPATIENT [facility] 60 MINUTES Lenin Chaudhary MD [address] [place] [id number] Referral ID Status Reason Start Date Expiration Date Visits Requested Visits Authorized [id number] Authorized PCP Requested Referral 04/17/2023 04/16/2024 1 1 Specialty Diagnoses / Procedures Referred By Contac t Referred To Contact Diagnoses Hearing loss of right ear, unspecified hearing loss type Procedures HEARING TEST/AUDIOGRAM COMPRE AUDIOMETRY THRESHOLD EVAL SP RECOGNIJ Lenin Chaudhary MD [address] [place] [address] [facility] [address] [place] [address] Referral ID Status Reason Start Date Expiration Date Visits Requested Visits Authorized [id number] Pending Review Auto-Generat ed Referral 05/02/2023 07/31/2023 1 1 Specialty Diagnoses / Procedures Referred By Contac t Referred To Contact CT IMAGING Diagnoses Bone lesion Procedures CT BRAIN WO IVCON CT HEAD/BRAIN W/O CONTRAST MATERIAL Katty Rodriguez MD [id number] [address] [address] [facility] Referral ID Status Reason Start Date Expiration Date Visits Requested Visits Authorized [id number] Pending Review Auto-Generat ed Referral 05/07/2023 06/05/2024 1 1 Specialty Diagnoses / Procedures Referred By Contac t Referred To Contact [facility] Diagnoses Driving safety issue Procedures CONSULT TO DRAW [facility] Katty Rodriguez MD [address] [facility] [address] [address] [facility] [place] [address] [place] [address] Referral ID Status Reason Start Date Expiration Date Visits Requested Visits Authorized [id number] Pending Review Auto-Generat ed Referral 05/07/2023 05/06/2024 1 1 Specialty Diagnoses / Procedures Referred By Contac t Referred To Contact Gastroenterology Diagnoses Gastrointestinal hemorrhage, unspecified gastrointestinal hemorrhage type Acute gastric ulcer with hemorrhage Anemia, unspecified type Procedures CONSULT TO GASTROENTEROLOGY OFFICE/OUTPATIENT [facility] 60 MINUTES Lenin Chaudhary MD [address] [place] [address] Referral ID Status Reason Start Date Expiration Date Visits Requested Visits Authorized [id number] Authorized PCP Requested Referral 06/20/2023 06/19/2024 1 1 Specialty Diagnoses / Procedures Referred By Contac t Referred To Contact Cardiology Diagnoses Pulmonary hypertension (HCC) Procedures CONSULT TO CARDIOLOGY OFFICE/OUTPATIENT [facility] 60 MINUTES Lenin Chaudhary MD [address] [place] [address] Referral ID Status Reason Start Date Expiration Date Visits Requested Visits Authorized [id number] Authorized PCP Requested Referral 12/13/2024 1 1 Specialty Diagnoses / Procedures Referred By Contac t Referred To Contact Pulmonary Disease Diagnoses Lung nodule Procedures CONSULT TO LUNG NODULE CLINIC OFFICE/OUTPATIENT [facility] 60 MINUTES Maren Ruiz, [employer] [address] [place] [address] Referral ID Status Reason Start Date Expiration Date Visits Requested Visits Authorized [id number] Authorized PCP Requested Referral 01/31/2025 1 1 Chief Complaint and Reason for Visit Chief Complaint UGIB Reason for Visit Acute kidney injury Anemia requiring transfusions Orthostatic hypotension Syncope and collapse Chief Complaint UGIB UGIB UGIB UGIB UGIB UGIB UGIB UGIB Reason for Visit Acute kidney injury Anemia requiring transfusions Orthostatic hypotension Syncope and collapse Upper GI bleed Chief Complaint Admit Date POST OP March 31, 2024 7:32am CABG April 30, 2024 1:5 9pm Reason for Visit Admit Date Anemia March 31, 2024 5:34am GI bleed March 31, 2024 5:34am Chief Complaint Admit Date POST OP March 31, 2024 7:32am CABG April 30, 2024 1:5 9pm CABG May 19, 2024 10: 15am Chief Complaint Admit Date POST OP March 31, 2024 7:32am CABG April 30, 2024 1:5 9pm CABG May 19, 2024 10: 15am CABG June 18, 2024 10: 15am CABG July 18, 2024 10:15 am Chief Complaint Admit Date CABG April 30, 2024 1:5 9pm CABG May 19, 2024 10: 15am CABG June 18, 2024 10: 15am CABG July 18, 2024 10:15 am CABG August 06, 2024 10:1 5am Summary Purpose Family History No Family History Records Found Additional Source Comments Source Comments (unrecognize d section and content) In the event this informatio n is protected by the Federal Confidentiality of Alcohol and Drug Abuse Patient Records regulations: The Federal rules restrict any use of the information to criminally investigate or prosecute any alcohol or drug abuse patient.[facility] the event this information is protected by the Federal Confidentiality of Alcohol and Drug Abuse Patient Records regulations: The Federal rules restrict any use of the information to criminally investigate or prosecute any alcohol or drug abuse patient.[facility] SystemIn the event this information is protected by the Federal Confidentiality of Alcohol and Drug Abuse Patient Records regulations: The Federal rules restrict any use of the information to criminally investigate or prosecute any alcohol or drug abuse patient.[facility] SystemIn the event this information is protected by the Federal Confidentiality of Alcohol and Drug Abuse Patient Records regulations: The Federal rules restrict any use of the information to criminally investigate or prosecute any alcohol or drug abuse patient.[facility] SystemIn the event this information is protected by the Federal Confidentiality of Alcohol and Drug Abuse Patient Records regulations: The Federal rules restrict any use of the information to criminally investigate or prosecute any alcohol or drug abuse patient.[facility] SystemIn the event this information is protected by the Federal Confidentiality of Alcohol and Drug Abuse Patient Records regulations: The Federal rules restrict any use of the information to criminally investigate or prosecute any alcohol or drug abuse patient.[facility] SystemIn the event this information is protected by the Federal Confidentiality of Alcohol and Drug Abuse Patient Records regulations: The Federal rules restrict any use of the information to criminally investigate or prosecute any alcohol or drug abuse patient.[facility] SystemIn the event this information is protected by the Federal Confidentiality of Alcohol and Drug Abuse Patient Records regulations: The Federal rules restrict any use of the information to criminally investigate or prosecute any alcohol or drug abuse patient.[facility] SystemIn the event this information is protected by the Federal Confidentiality of Alcohol and Drug Abuse Patient Records regulations: The Federal rules restrict any use of the information to criminally investigate or prosecute any alcohol or drug abuse patient.[facility] SystemIn the event this information is protected by the Federal Confidentiality of Alcohol and Drug Abuse Patient Records regulations: The Federal rules restrict any use of the information to criminally investigate or prosecute any alcohol or drug abuse patient.[facility] SystemIn the event this information is protected by the Federal Confidentiality of Alcohol and Drug Abuse Patient Records regulations: The Federal rules restrict any use of the information to criminally investigate or prosecute any alcohol or drug abuse patient.[facility] SystemIn the event this information is protected by the Federal Confidentiality of Alcohol and Drug Abuse Patient Records regulations: The Federal rules restrict any use of the information to criminally investigate or prosecute any alcohol or drug abuse patient.[facility] SystemIn the event this information is protected by the Federal Confidentiality of Alcohol and Drug Abuse Patient Records regulations: The Federal rules restrict any use of the information to criminally investigate or prosecute any alcohol or drug abuse patient.[facility] SystemIn the event this information is protected by the Federal Confidentiality of Alcohol and Drug Abuse Patient Records regulations: The Federal rules restrict any use of the information to criminally investigate or prosecute any alcohol or drug abuse patient.[facility] SystemIn the event this information is protected by the Federal Confidentiality of Alcohol and Drug Abuse Patient Records regulations: The Federal rules restrict any use of the information to criminally investigate or prosecute any alcohol or drug abuse patient.[facility] SystemIn the event this information is protected by the Federal Confidentiality of Alcohol and Drug Abuse Patient Records regulations: The Federal rules restrict any use of the information to criminally investigate or prosecute any alcohol or drug abuse patient.[facility] SystemIn the event this information is protected by the Federal Confidentiality of Alcohol and Drug Abuse Patient Records regulations: The Federal rules restrict any use of the information to criminally investigate or prosecute any alcohol or drug abuse patient.[facility] SystemIn the event this information is protected by the Federal Confidentiality of Alcohol and Drug Abuse Patient Records regulations: The Federal rules restrict any use of the information to criminally investigate or prosecute any alcohol or drug abuse patient.[facility] SystemIn the event this information is protected by the Federal Confidentiality of Alcohol and Drug Abuse Patient Records regulations: The Federal rules restrict any use of the information to criminally investigate or prosecute any alcohol or drug abuse patient.[facility] SystemIn the event this information is protected by the Federal Confidentiality of Alcohol and Drug Abuse Patient Records regulations: The Federal rules restrict any use of the information to criminally investigate or prosecute any alcohol or drug abuse patient.[facility] SystemIn the event this information is protected by the Federal Confidentiality of Alcohol and Drug Abuse Patient Records regulations: The Federal rules restrict any use of the information to criminally investigate or prosecute any alcohol or drug abuse patient.[facility] SystemIn the event this information is protected by the Federal Confidentiality of Alcohol and Drug Abuse Patient Records regulations: The Federal rules restrict any use of the information to criminally investigate or prosecute any alcohol or drug abuse patient.[facility] SystemIn the event this information is protected by the Federal Confidentiality of Alcohol and Drug Abuse Patient Records regulations: The Federal rules restrict any use of the information to criminally investigate or prosecute any alcohol or drug abuse patient.[facility] SystemIn the event this information is protected by the Federal Confidentiality of Alcohol and Drug Abuse Patient Records regulations: The Federal rules restrict any use of the information to criminally investigate or prosecute any alcohol or drug abuse patient.[facility] SystemIn the event this information is protected by the Federal Confidentiality of Alcohol and Drug Abuse Patient Records regulations: The Federal rules restrict any use of the information to criminally investigate or prosecute any alcohol or drug abuse patient.[facility] SystemIn the event this information is protected by the Federal Confidentiality of Alcohol and Drug Abuse Patient Records regulations: The Federal rules restrict any use of the information to criminally investigate or prosecute any alcohol or drug abuse patient.[facility] SystemIn the event this information is protected by the Federal Confidentiality of Alcohol and Drug Abuse Patient Records regulations: The Federal rules restrict any use of the information to criminally investigate or prosecute any alcohol or drug abuse patient.[facility] SystemIn the event this information is protected by the Federal Confidentiality of Alcohol and Drug Abuse Patient Records regulations: The Federal rules restrict any use of the information to criminally investigate or prosecute any alcohol or drug abuse patient.[facility] SystemIn the event this information is protected by the Federal Confidentiality of Alcohol and Drug Abuse Patient Records regulations: The Federal rules restrict any use of the information to criminally investigate or prosecute any alcohol or drug abuse patient.[facility] SystemIn the event this information is protected by the Federal Confidentiality of Alcohol and Drug Abuse Patient Records regulations: The Federal rules restrict any use of the information to criminally investigate or prosecute any alcohol or drug abuse patient.[facility] SystemIn the event this information is protected by the Federal Confidentiality of Alcohol and Drug Abuse Patient Records regulations: The Federal rules restrict any use of the information to criminally investigate or prosecute any alcohol or drug abuse patient.[facility] SystemIn the event this information is protected by the Federal Confidentiality of Alcohol and Drug Abuse Patient Records regulations: The Federal rules restrict any use of the information to criminally investigate or prosecute any alcohol or drug abuse patient.[facility] SystemIn the event this information is protected by the Federal Confidentiality of Alcohol and Drug Abuse Patient Records regulations: The Federal rules restrict any use of the information to criminally investigate or prosecute any alcohol or drug abuse patient.[facility] SystemIn the event this information is protected by the Federal Confidentiality of Alcohol and Drug Abuse Patient Records regulations: The Federal rules restrict any use of the information to criminally investigate or prosecute any alcohol or drug abuse patient.[facility] SystemIn the event this information is protected by the Federal Confidentiality of Alcohol and Drug Abuse Patient Records regulations: The Federal rules restrict any use of the information to criminally investigate or prosecute any alcohol or drug abuse patient.[facility] SystemIn the event this information is protected by the Federal Confidentiality of Alcohol and Drug Abuse Patient Records regulations: The Federal rules restrict any use of the information to criminally investigate or prosecute any alcohol or drug abuse patient.[facility] SystemIn the event this information is protected by the Federal Confidentiality of Alcohol and Drug Abuse Patient Records regulations: The Federal rules restrict any use of the information to criminally investigate or prosecute any alcohol or drug abuse patient.[facility] SystemIn the event this information is protected by the Federal Confidentiality of Alcohol and Drug Abuse Patient Records regulations: The Federal rules restrict any use of the information to criminally investigate or prosecute any alcohol or drug abuse patient.[facility] SystemIn the event this information is protected by the Federal Confidentiality of Alcohol and Drug Abuse Patient Records regulations: The Federal rules restrict any use of the information to criminally investigate or prosecute any alcohol or drug abuse patient.[facility] SystemIn the event this information is protected by the Federal Confidentiality of Alcohol and Drug Abuse Patient Records regulations: The Federal rules restrict any use of the information to criminally investigate or prosecute any alcohol or drug abuse patient.[facility] SystemIn the event this information is protected by the Federal Confidentiality of Alcohol and Drug Abuse Patient Records regulations: The Federal rules restrict any use of the information to criminally investigate or prosecute any alcohol or drug abuse patient.[facility] SystemIn the event this information is protected by the Federal Confidentiality of Alcohol and Drug Abuse Patient Records regulations: The Federal rules restrict any use of the information to criminally investigate or prosecute any alcohol or drug abuse patient.[facility] SystemIn the event this information is protected by the Federal Confidentiality of Alcohol and Drug Abuse Patient Records regulations: The Federal rules restrict any use of the information to criminally investigate or prosecute any alcohol or drug abuse patient.[facility] SystemIn the event this information is protected by the Federal Confidentiality of Alcohol and Drug Abuse Patient Records regulations: The Federal rules restrict any use of the information to criminally investigate or prosecute any alcohol or drug abuse patient.[facility] SystemIn the event this information is protected by the Federal Confidentiality of Alcohol and Drug Abuse Patient Records regulations: The Federal rules restrict any use of the information to criminally investigate or prosecute any alcohol or drug abuse patient.[facility] SystemIn the event this information is protected by the Federal Confidentiality of Alcohol and Drug Abuse Patient Records regulations: The Federal rules restrict any use of the information to criminally investigate or prosecute any alcohol or drug abuse patient.[facility] SystemIn the event this information is protected by the Federal Confidentiality of Alcohol and Drug Abuse Patient Records regulations: The Federal rules restrict any use of the information to criminally investigate or prosecute any alcohol or drug abuse patient.[facility] SystemIn the event this information is protected by the Federal Confidentiality of Alcohol and Drug Abuse Patient Records regulations: The Federal rules restrict any use of the information to criminally investigate or prosecute any alcohol or drug abuse patient.[facility] SystemIn the event this information is protected by the Federal Confidentiality of Alcohol and Drug Abuse Patient Records regulations: The Federal rules restrict any use of the information to criminally investigate or prosecute any alcohol or drug abuse patient.[facility] SystemIn the event this information is protected by the Federal Confidentiality of Alcohol and Drug Abuse Patient Records regulations: The Federal rules restrict any use of the information to criminally investigate or prosecute any alcohol or drug abuse patient.[facility] SystemIn the event this information is protected by the Federal Confidentiality of Alcohol and Drug Abuse Patient Records regulations: The Federal rules restrict any use of the information to criminally investigate or prosecute any alcohol or drug abuse patient.[facility] SystemIn the event this information is protected by the Federal Confidentiality of Alcohol and Drug Abuse Patient Records regulations: The Federal rules restrict any use of the information to criminally investigate or prosecute any alcohol or drug abuse patient.[facility] SystemIn the event this information is protected by the Federal Confidentiality of Alcohol and Drug Abuse Patient Records regulations: The Federal rules restrict any use of the information to criminally investigate or prosecute any alcohol or drug abuse patient.[facility] SystemIn the event this information is protected by the Federal Confidentiality of Alcohol and Drug Abuse Patient Records regulations: The Federal rules restrict any use of the information to criminally investigate or prosecute any alcohol or drug abuse patient.[facility] SystemIn the event this information is protected by the Federal Confidentiality of Alcohol and Drug Abuse Patient Records regulations: The Federal rules restrict any use of the information to criminally investigate or prosecute any alcohol or drug abuse patient.[facility] SystemIn the event this information is protected by the Federal Confidentiality of Alcohol and Drug Abuse Patient Records regulations: The Federal rules restrict any use of the information to criminally investigate or prosecute any alcohol or drug abuse patient.[facility] SystemIn the event this information is protected by the Federal Confidentiality of Alcohol and Drug Abuse Patient Records regulations: The Federal rules restrict any use of the information to criminally investigate or prosecute any alcohol or drug abuse patient.[facility] SystemIn the event this information is protected by the Federal Confidentiality of Alcohol and Drug Abuse Patient Records regulations: The Federal rules restrict any use of the information to criminally investigate or prosecute any alcohol or drug abuse patient.[facility] SystemIn the event this information is protected by the Federal Confidentiality of Alcohol and Drug Abuse Patient Records regulations: The Federal rules restrict any use of the information to criminally investigate or prosecute any alcohol or drug abuse patient.[facility] SystemIn the event this information is protected by the Federal Confidentiality of Alcohol and Drug Abuse Patient Records regulations: The Federal rules restrict any use of the information to criminally investigate or prosecute any alcohol or drug abuse patient.[facility] SystemIn the event this information is protected by the Federal Confidentiality of Alcohol and Drug Abuse Patient Records regulations: The Federal rules restrict any use of the information to criminally investigate or prosecute any alcohol or drug abuse patient.[facility] SystemIn the event this information is protected by the Federal Confidentiality of Alcohol and Drug Abuse Patient Records regulations: The Federal rules restrict any use of the information to criminally investigate or prosecute any alcohol or drug abuse patient.[facility] SystemIn the event this information is protected by the Federal Confidentiality of Alcohol and Drug Abuse Patient Records regulations: The Federal rules restrict any use of the information to criminally investigate or prosecute any alcohol or drug abuse patient.[facility] SystemIn the event this information is protected by the Federal Confidentiality of Alcohol and Drug Abuse Patient Records regulations: The Federal rules restrict any use of the information to criminally investigate or prosecute any alcohol or drug abuse patient.[facility] SystemIn the event this information is protected by the Federal Confidentiality of Alcohol and Drug Abuse Patient Records regulations: The Federal rules restrict any use of the information to criminally investigate or prosecute any alcohol or drug abuse patient.[facility] SystemIn the event this information is protected by the Federal Confidentiality of Alcohol and Drug Abuse Patient Records regulations: The Federal rules restrict any use of the information to criminally investigate or prosecute any alcohol or drug abuse patient.[facility] SystemIn the event this information is protected by the Federal Confidentiality of Alcohol and Drug Abuse Patient Records regulations: The Federal rules restrict any use of the information to criminally investigate or prosecute any alcohol or drug abuse patient.[facility] SystemIn the event this information is protected by the Federal Confidentiality of Alcohol and Drug Abuse Patient Records regulations: The Federal rules restrict any use of the information to criminally investigate or prosecute any alcohol or drug abuse patient.[facility] SystemIn the event this information is protected by the Federal Confidentiality of Alcohol and Drug Abuse Patient Records regulations: The Federal rules restrict any use of the information to criminally investigate or prosecute any alcohol or drug abuse patient.[facility] SystemIn the event this information is protected by the Federal Confidentiality of Alcohol and Drug Abuse Patient Records regulations: The Federal rules restrict any use of the information to criminally investigate or prosecute any alcohol or drug abuse patient.[facility] SystemIn the event this information is protected by the Federal Confidentiality of Alcohol and Drug Abuse Patient Records regulations: The Federal rules restrict any use of the information to criminally investigate or prosecute any alcohol or drug abuse patient.[facility] SystemIn the event this information is protected by the Federal Confidentiality of Alcohol and Drug Abuse Patient Records regulations: The Federal rules restrict any use of the information to criminally investigate or prosecute any alcohol or drug abuse patient.[facility] SystemIn the event this information is protected by the Federal Confidentiality of Alcohol and Drug Abuse Patient Records regulations: The Federal rules restrict any use of the information to criminally investigate or prosecute any alcohol or drug abuse patient.[facility] SystemIn the event this information is protected by the Federal Confidentiality of Alcohol and Drug Abuse Patient Records regulations: The Federal rules restrict any use of the information to criminally investigate or prosecute any alcohol or drug abuse patient.[facility] SystemIn the event this information is protected by the Federal Confidentiality of Alcohol and Drug Abuse Patient Records regulations: The Federal rules restrict any use of the information to criminally investigate or prosecute any alcohol or drug abuse patient.[facility] SystemIn the event this information is protected by the Federal Confidentiality of Alcohol and Drug Abuse Patient Records regulations: The Federal rules restrict any use of the information to criminally investigate or prosecute any alcohol or drug abuse patient.[facility] SystemIn the event this information is protected by the Federal Confidentiality of Alcohol and Drug Abuse Patient Records regulations: The Federal rules restrict any use of the information to criminally investigate or prosecute any alcohol or drug abuse patient.[facility] SystemIn the event this information is protected by the Federal Confidentiality of Alcohol and Drug Abuse Patient Records regulations: The Federal rules restrict any use of the information to criminally investigate or prosecute any alcohol or drug abuse patient.[facility] SystemIn the event this information is protected by the Federal Confidentiality of Alcohol and Drug Abuse Patient Records regulations: The Federal rules restrict any use of the information to criminally investigate or prosecute any alcohol or drug abuse patient.[facility] SystemIn the event this information is protected by the Federal Confidentiality of Alcohol and Drug Abuse Patient Records regulations: The Federal rules restrict any use of the information to criminally investigate or prosecute any alcohol or drug abuse patient.[facility] SystemIn the event this information is protected by the Federal Confidentiality of Alcohol and Drug Abuse Patient Records regulations: The Federal rules restrict any use of the information to criminally investigate or prosecute any alcohol or drug abuse patient.[facility] SystemIn the event this information is protected by the Federal Confidentiality of Alcohol and Drug Abuse Patient Records regulations: The Federal rules restrict any use of the information to criminally investigate or prosecute any alcohol or drug abuse patient.[facility] SystemIn the event this information is protected by the Federal Confidentiality of Alcohol and Drug Abuse Patient Records regulations: The Federal rules restrict any use of the information to criminally investigate or prosecute any alcohol or drug abuse patient.[facility] SystemIn the event this information is protected by the Federal Confidentiality of Alcohol and Drug Abuse Patient Records regulations: The Federal rules restrict any use of the information to criminally investigate or prosecute any alcohol or drug abuse patient.[facility] SystemIn the event this information is protected by the Federal Confidentiality of Alcohol and Drug Abuse Patient Records regulations: The Federal rules restrict any use of the information to criminally investigate or prosecute any alcohol or drug abuse patient.[facility] SystemIn the event this information is protected by the Federal Confidentiality of Alcohol and Drug Abuse Patient Records regulations: The Federal rules restrict any use of the information to criminally investigate or prosecute any alcohol or drug abuse patient.[facility] SystemIn the event this information is protected by the Federal Confidentiality of Alcohol and Drug Abuse Patient Records regulations: The Federal rules restrict any use of the information to criminally investigate or prosecute any alcohol or drug abuse patient.[facility] SystemIn the event this information is protected by the Federal Confidentiality of Alcohol and Drug Abuse Patient Records regulations: The Federal rules restrict any use of the information to criminally investigate or prosecute any alcohol or drug abuse patient.[facility] SystemIn the event this information is protected by the Federal Confidentiality of Alcohol and Drug Abuse Patient Records regulations: The Federal rules restrict any use of the information to criminally investigate or prosecute any alcohol or drug abuse patient.[facility] SystemIn the event this information is protected by the Federal Confidentiality of Alcohol and Drug Abuse Patient Records regulations: The Federal rules restrict any use of the information to criminally investigate or prosecute any alcohol or drug abuse patient.[facility] SystemIn the event this information is protected by the Federal Confidentiality of Alcohol and Drug Abuse Patient Records regulations: The Federal rules restrict any use of the information to criminally investigate or prosecute any alcohol or drug abuse patient.[facility] SystemIn the event this information is protected by the Federal Confidentiality of Alcohol and Drug Abuse Patient Records regulations: The Federal rules restrict any use of the information to criminally investigate or prosecute any alcohol or drug abuse patient.[facility] SystemIn the event this information is protected by the Federal Confidentiality of Alcohol and Drug Abuse Patient Records regulations: The Federal rules restrict any use of the information to criminally investigate or prosecute any alcohol or drug abuse patient.[facility] SystemIn the event this information is protected by the Federal Confidentiality of Alcohol and Drug Abuse Patient Records regulations: The Federal rules restrict any use of the information to criminally investigate or prosecute any alcohol or drug abuse patient.[facility] SystemIn the event this information is protected by the Federal Confidentiality of Alcohol and Drug Abuse Patient Records regulations: The Federal rules restrict any use of the information to criminally investigate or prosecute any alcohol or drug abuse patient.[facility] SystemIn the event this information is protected by the Federal Confidentiality of Alcohol and Drug Abuse Patient Records regulations: The Federal rules restrict any use of the information to criminally investigate or prosecute any alcohol or drug abuse patient.[facility] SystemIn the event this information is protected by the Federal Confidentiality of Alcohol and Drug Abuse Patient Records regulations: The Federal rules restrict any use of the information to criminally investigate or prosecute any alcohol or drug abuse patient.[facility] SystemIn the event this information is protected by the Federal Confidentiality of Alcohol and Drug Abuse Patient Records regulations: The Federal rules restrict any use of the information to criminally investigate or prosecute any alcohol or drug abuse patient.[facility] SystemIn the event this information is protected by the Federal Confidentiality of Alcohol and Drug Abuse Patient Records regulations: The Federal rules restrict any use of the information to criminally investigate or prosecute any alcohol or drug abuse patient.[facility] SystemIn the event this information is protected by the Federal Confidentiality of Alcohol and Drug Abuse Patient Records regulations: The Federal rules restrict any use of the information to criminally investigate or prosecute any alcohol or drug abuse patient.[facility] SystemIn the event this information is protected by the Federal Confidentiality of Alcohol and Drug Abuse Patient Records regulations: The Federal rules restrict any use of the information to criminally investigate or prosecute any alcohol or drug abuse patient.[facility] SystemIn the event this information is protected by the Federal Confidentiality of Alcohol and Drug Abuse Patient Records regulations: The Federal rules restrict any use of the information to criminally investigate or prosecute any alcohol or drug abuse patient.[facility] SystemIn the event this information is protected by the Federal Confidentiality of Alcohol and Drug Abuse Patient Records regulations: The Federal rules restrict any use of the information to criminally investigate or prosecute any alcohol or drug abuse patient.[facility] SystemIn the event this information is protected by the Federal Confidentiality of Alcohol and Drug Abuse Patient Records regulations: The Federal rules restrict any use of the information to criminally investigate or prosecute any alcohol or drug abuse patient.[facility] SystemIn the event this information is protected by the Federal Confidentiality of Alcohol and Drug Abuse Patient Records regulations: The Federal rules restrict any use of the information to criminally investigate or prosecute any alcohol or drug abuse patient.[facility] SystemIn the event this information is protected by the Federal Confidentiality of Alcohol and Drug Abuse Patient Records regulations: The Federal rules restrict any use of the information to criminally investigate or prosecute any alcohol or drug abuse patient.[facility] SystemIn the event this information is protected by the Federal Confidentiality of Alcohol and Drug Abuse Patient Records regulations: The Federal rules restrict any use of the information to criminally investigate or prosecute any alcohol or drug abuse patient.[facility] SystemIn the event this information is protected by the Federal Confidentiality of Alcohol and Drug Abuse Patient Records regulations: The Federal rules restrict any use of the information to criminally investigate or prosecute any alcohol or drug abuse patient.[facility] SystemIn the event this information is protected by the Federal Confidentiality of Alcohol and Drug Abuse Patient Records regulations: The Federal rules restrict any use of the information to criminally investigate or prosecute any alcohol or drug abuse patient.[facility] SystemIn the event this information is protected by the Federal Confidentiality of Alcohol and Drug Abuse Patient Records regulations: The Federal rules restrict any use of the information to criminally investigate or prosecute any alcohol or drug abuse patient.[facility] SystemIn the event this information is protected by the Federal Confidentiality of Alcohol and Drug Abuse Patient Records regulations: The Federal rules restrict any use of the information to criminally investigate or prosecute any alcohol or drug abuse patient.[facility] SystemIn the event this information is protected by the Federal Confidentiality of Alcohol and Drug Abuse Patient Records regulations: The Federal rules restrict any use of the information to criminally investigate or prosecute any alcohol or drug abuse patient.[facility] SystemIn the event this information is protected by the Federal Confidentiality of Alcohol and Drug Abuse Patient Records regulations: The Federal rules restrict any use of the information to criminally investigate or prosecute any alcohol or drug abuse patient.[facility] SystemIn the event this information is protected by the Federal Confidentiality of Alcohol and Drug Abuse Patient Records regulations: The Federal rules restrict any use of the information to criminally investigate or prosecute any alcohol or drug abuse patient.[facility] SystemIn the event this information is protected by the Federal Confidentiality of Alcohol and Drug Abuse Patient Records regulations: The Federal rules restrict any use of the information to criminally investigate or prosecute any alcohol or drug abuse patient.[facility] SystemIn the event this information is protected by the Federal Confidentiality of Alcohol and Drug Abuse Patient Records regulations: The Federal rules restrict any use of the information to criminally investigate or prosecute any alcohol or drug abuse patient.[facility] SystemIn the event this information is protected by the Federal Confidentiality of Alcohol and Drug Abuse Patient Records regulations: The Federal rules restrict any use of the information to criminally investigate or prosecute any alcohol or drug abuse patient.[facility] SystemIn the event this information is protected by the Federal Confidentiality of Alcohol and Drug Abuse Patient Records regulations: The Federal rules restrict any use of the information to criminally investigate or prosecute any alcohol or drug abuse patient.[facility] SystemIn the event this information is protected by the Federal Confidentiality of Alcohol and Drug Abuse Patient Records regulations: The Federal rules restrict any use of the information to criminally investigate or prosecute any alcohol or drug abuse patient.[facility] SystemIn the event this information is protected by the Federal Confidentiality of Alcohol and Drug Abuse Patient Records regulations: The Federal rules restrict any use of the information to criminally investigate or prosecute any alcohol or drug abuse patient.[facility] SystemIn the event this information is protected by the Federal Confidentiality of Alcohol and Drug Abuse Patient Records regulations: The Federal rules restrict any use of the information to criminally investigate or prosecute any alcohol or drug abuse patient.[facility] SystemIn the event this information is protected by the Federal Confidentiality of Alcohol and Drug Abuse Patient Records regulations: The Federal rules restrict any use of the information to criminally investigate or prosecute any alcohol or drug abuse patient.[facility] SystemIn the event this information is protected by the Federal Confidentiality of Alcohol and Drug Abuse Patient Records regulations: The Federal rules restrict any use of the information to criminally investigate or prosecute any alcohol or drug abuse patient.[facility] SystemIn the event this information is protected by the Federal Confidentiality of Alcohol and Drug Abuse Patient Records regulations: The Federal rules restrict any use of the information to criminally investigate or prosecute any alcohol or drug abuse patient.[facility] SystemIn the event this information is protected by the Federal Confidentiality of Alcohol and Drug Abuse Patient Records regulations: The Federal rules restrict any use of the information to criminally investigate or prosecute any alcohol or drug abuse patient.[facility] SystemIn the event this information is protected by the Federal Confidentiality of Alcohol and Drug Abuse Patient Records regulations: The Federal rules restrict any use of the information to criminally investigate or prosecute any alcohol or drug abuse patient.[facility] SystemIn the event this information is protected by the Federal Confidentiality of Alcohol and Drug Abuse Patient Records regulations: The Federal rules restrict any use of the information to criminally investigate or prosecute any alcohol or drug abuse patient.[facility] SystemIn the event this information is protected by the Federal Confidentiality of Alcohol and Drug Abuse Patient Records regulations: The Federal rules restrict any use of the information to criminally investigate or prosecute any alcohol or drug abuse patient.[facility] SystemIn the event this information is protected by the Federal Confidentiality of Alcohol and Drug Abuse Patient Records regulations: The Federal rules restrict any use of the information to criminally investigate or prosecute any alcohol or drug abuse patient.[facility] SystemIn the event this information is protected by the Federal Confidentiality of Alcohol and Drug Abuse Patient Records regulations: The Federal rules restrict any use of the information to criminally investigate or prosecute any alcohol or drug abuse patient.[facility] SystemIn the event this information is protected by the Federal Confidentiality of Alcohol and Drug Abuse Patient Records regulations: The Federal rules restrict any use of the information to criminally investigate or prosecute any alcohol or drug abuse patient.[facility] SystemIn the event this information is protected by the Federal Confidentiality of Alcohol and Drug Abuse Patient Records regulations: The Federal rules restrict any use of the information to criminally investigate or prosecute any alcohol or drug abuse patient.[facility] SystemIn the event this information is protected by the Federal Confidentiality of Alcohol and Drug Abuse Patient Records regulations: The Federal rules restrict any use of the information to criminally investigate or prosecute any alcohol or drug abuse patient.[facility] SystemIn the event this information is protected by the Federal Confidentiality of Alcohol and Drug Abuse Patient Records regulations: The Federal rules restrict any use of the information to criminally investigate or prosecute any alcohol or drug abuse patient.[facility] SystemIn the event this information is protected by the Federal Confidentiality of Alcohol and Drug Abuse Patient Records regulations: The Federal rules restrict any use of the information to criminally investigate or prosecute any alcohol or drug abuse patient.[facility]In the event this information is protected by the Federal Confidentiality of Alcohol and Drug Abuse Patient Records regulations: The Federal rules restrict any use of the information to criminally investigate or prosecute any alcohol or drug abuse patient.[facility] SystemIn the event this information is protected by the Federal Confidentiality of Alcohol and Drug Abuse Patient Records regulations: The Federal rules restrict any use of the information to criminally investigate or prosecute any alcohol or drug abuse patient.[facility] SystemIn the event this information is protected by the Federal Confidentiality of Alcohol and Drug Abuse Patient Records regulations: The Federal rules restrict any use of the information to criminally investigate or prosecute any alcohol or drug abuse patient.[facility] SystemIn the event this information is protected by the Federal Confidentiality of Alcohol and Drug Abuse Patient Records regulations: The Federal rules restrict any use of the information to criminally investigate or prosecute any alcohol or drug abuse patient.[facility]In the event this information is protected by the Federal Confidentiality of Alcohol and Drug Abuse Patient Records regulations: The Federal rules restrict any use of the information to criminally investigate or prosecute any alcohol or drug abuse patient.[facility] SystemIn the event this information is protected by the Federal Confidentiality of Alcohol and Drug Abuse Patient Records regulations: The Federal rules restrict any use of the information to criminally investigate or prosecute any alcohol or drug abuse patient.[facility] SystemIn the event this information is protected by the Federal Confidentiality of Alcohol and Drug Abuse Patient Records regulations: The Federal rules restrict any use of the information to criminally investigate or prosecute any alcohol or drug abuse patient.[facility]In the event this information is protected by the Federal Confidentiality of Alcohol and Drug Abuse Patient Records regulations: The Federal rules restrict any use of the information to criminally investigate or prosecute any alcohol or drug abuse patient.[facility]In the event this information is protected by the Federal Confidentiality of Alcohol and Drug Abuse Patient Records regulations: The Federal rules restrict any use of the information to criminally investigate or prosecute any alcohol or drug abuse patient.[facility]In the event this information is protected by the Federal Confidentiality of Alcohol and Drug Abuse Patient Records regulations: The Federal rules restrict any use of the information to criminally investigate or prosecute any alcohol or drug abuse patient.[facility] SystemIn the event this information is protected by the Federal Confidentiality of Alcohol and Drug Abuse Patient Records regulations: The Federal rules restrict any use of the information to criminally investigate or prosecute any alcohol or drug abuse patient.[facility]In the event this information is protected by the Federal Confidentiality of Alcohol and Drug Abuse Patient Records regulations: The Federal rules restrict any use of the information to criminally investigate or prosecute any alcohol or drug abuse patient.[facility]In the event this information is protected by the Federal Confidentiality of Alcohol and Drug Abuse Patient Records regulations: The Federal rules restrict any use of the information to criminally investigate or prosecute any alcohol or drug abuse patient.[facility]In the event this information is protected by the Federal Confidentiality of Alcohol and Drug Abuse Patient Records regulations: The Federal rules restrict any use of the information to criminally investigate or prosecute any alcohol or drug abuse patient.[facility] SystemIn the event this information is protected by the Federal Confidentiality of Alcohol and Drug Abuse Patient Records regulations: The Federal rules restrict any use of the information to criminally investigate or prosecute any alcohol or drug abuse patient.[facility] SystemIn the event this information is protected by the Federal Confidentiality of Alcohol and Drug Abuse Patient Records regulations: The Federal rules restrict any use of the information to criminally investigate or prosecute any alcohol or drug abuse patient.[facility] SystemIn the event this information is protected by the Federal Confidentiality of Alcohol and Drug Abuse Patient Records regulations: The Federal rules restrict any use of the information to criminally investigate or prosecute any alcohol or drug abuse patient.[facility]In the event this information is protected by the Federal Confidentiality of Alcohol and Drug Abuse Patient Records regulations: The Federal rules restrict any use of the information to criminally investigate or prosecute any alcohol or drug abuse patient.[facility] SystemIn the event this information is protected by the Federal Confidentiality of Alcohol and Drug Abuse Patient Records regulations: The Federal rules restrict any use of the information to criminally investigate or prosecute any alcohol or drug abuse patient.[facility] SystemIn the event this information is protected by the Federal Confidentiality of Alcohol and Drug Abuse Patient Records regulations: The Federal rules restrict any use of the information to criminally investigate or prosecute any alcohol or drug abuse patient.[facility] SystemIn the event this information is protected by the Federal Confidentiality of Alcohol and Drug Abuse Patient Records regulations: The Federal rules restrict any use of the information to criminally investigate or prosecute any alcohol or drug abuse patient.[facility] SystemIn the event this information is protected by the Federal Confidentiality of Alcohol and Drug Abuse Patient Records regulations: The Federal rules restrict any use of the information to criminally investigate or prosecute any alcohol or drug abuse patient.[facility] SystemIn the event this information is protected by the Federal Confidentiality of Alcohol and Drug Abuse Patient Records regulations: The Federal rules restrict any use of the information to criminally investigate or prosecute any alcohol or drug abuse patient.[facility] SystemIn the event this information is protected by the Federal Confidentiality of Alcohol and Drug Abuse Patient Records regulations: The Federal rules restrict any use of the information to criminally investigate or prosecute any alcohol or drug abuse patient.[facility] SystemIn the event this information is protected by the Federal Confidentiality of Alcohol and Drug Abuse Patient Records regulations: The Federal rules restrict any use of the information to criminally investigate or prosecute any alcohol or drug abuse patient.[facility] SystemIn the event this information is protected by the Federal Confidentiality of Alcohol and Drug Abuse Patient Records regulations: The Federal rules restrict any use of the information to criminally investigate or prosecute any alcohol or drug abuse patient.[facility] SystemIn the event this information is protected by the Federal Confidentiality of Alcohol and Drug Abuse Patient Records regulations: The Federal rules restrict any use of the information to criminally investigate or prosecute any alcohol or drug abuse patient.[facility] SystemIn the event this information is protected by the Federal Confidentiality of Alcohol and Drug Abuse Patient Records regulations: The Federal rules restrict any use of the information to criminally investigate or prosecute any alcohol or drug abuse patient.[facility] SystemIn the event this information is protected by the Federal Confidentiality of Alcohol and Drug Abuse Patient Records regulations: The Federal rules restrict any use of the information to criminally investigate or prosecute any alcohol or drug abuse patient.[facility] SystemIn the event this information is protected by the Federal Confidentiality of Alcohol and Drug Abuse Patient Records regulations: The Federal rules restrict any use of the information to criminally investigate or prosecute any alcohol or drug abuse patient.[facility] SystemIn the event this information is protected by the Federal Confidentiality of Alcohol and Drug Abuse Patient Records regulations: The Federal rules restrict any use of the information to criminally investigate or prosecute any alcohol or drug abuse patient.[facility] SystemIn the event this information is protected by the Federal Confidentiality of Alcohol and Drug Abuse Patient Records regulations: The Federal rules restrict any use of the information to criminally investigate or prosecute any alcohol or drug abuse patient.[facility] SystemIn the event this information is protected by the Federal Confidentiality of Alcohol and Drug Abuse Patient Records regulations: The Federal rules restrict any use of the information to criminally investigate or prosecute any alcohol or drug abuse patient.[facility] SystemIn the event this information is protected by the Federal Confidentiality of Alcohol and Drug Abuse Patient Records regulations: The Federal rules restrict any use of the information to criminally investigate or prosecute any alcohol or drug abuse patient.[facility] SystemIn the event this information is protected by the Federal Confidentiality of Alcohol and Drug Abuse Patient Records regulations: The Federal rules restrict any use of the information to criminally investigate or prosecute any alcohol or drug abuse patient.[facility] SystemIn the event this information is protected by the Federal Confidentiality of Alcohol and Drug Abuse Patient Records regulations: The Federal rules restrict any use of the information to criminally investigate or prosecute any alcohol or drug abuse patient.[facility] SystemIn the event this information is protected by the Federal Confidentiality of Alcohol and Drug Abuse Patient Records regulations: The Federal rules restrict any use of the information to criminally investigate or prosecute any alcohol or drug abuse patient.[facility] SystemIn the event this information is protected by the Federal Confidentiality of Alcohol and Drug Abuse Patient Records regulations: The Federal rules restrict any use of the information to criminally investigate or prosecute any alcohol or drug abuse patient.[facility] SystemIn the event this information is protected by the Federal Confidentiality of Alcohol and Drug Abuse Patient Records regulations: The Federal rules restrict any use of the information to criminally investigate or prosecute any alcohol or drug abuse patient.[facility] SystemIn the event this information is protected by the Federal Confidentiality of Alcohol and Drug Abuse Patient Records regulations: The Federal rules restrict any use of the information to criminally investigate or prosecute any alcohol or drug abuse patient.[facility] SystemIn the event this information is protected by the Federal Confidentiality of Alcohol and Drug Abuse Patient Records regulations: The Federal rules restrict any use of the information to criminally investigate or prosecute any alcohol or drug abuse patient.[facility] SystemIn the event this information is protected by the Federal Confidentiality of Alcohol and Drug Abuse Patient Records regulations: The Federal rules restrict any use of the information to criminally investigate or prosecute any alcohol or drug abuse patient.[facility] SystemIn the event this information is protected by the Federal Confidentiality of Alcohol and Drug Abuse Patient Records regulations: The Federal rules restrict any use of the information to criminally investigate or prosecute any alcohol or drug abuse patient.[facility] SystemIn the event this information is protected by the Federal Confidentiality of Alcohol and Drug Abuse Patient Records regulations: The Federal rules restrict any use of the information to criminally investigate or prosecute any alcohol or drug abuse patient.[facility] SystemIn the event this information is protected by the Federal Confidentiality of Alcohol and Drug Abuse Patient Records regulations: The Federal rules restrict any use of the information to criminally investigate or prosecute any alcohol or drug abuse patient.[facility] SystemIn the event this information is protected by the Federal Confidentiality of Alcohol and Drug Abuse Patient Records regulations: The Federal rules restrict any use of the information to criminally investigate or prosecute any alcohol or drug abuse patient.[facility] SystemIn the event this information is protected by the Federal Confidentiality of Alcohol and Drug Abuse Patient Records regulations: The Federal rules restrict any use of the information to criminally investigate or prosecute any alcohol or drug abuse patient.[facility] SystemIn the event this information is protected by the Federal Confidentiality of Alcohol and Drug Abuse Patient Records regulations: The Federal rules restrict any use of the information to criminally investigate or prosecute any alcohol or drug abuse patient.[facility] SystemIn the event this information is protected by the Federal Confidentiality of Alcohol and Drug Abuse Patient Records regulations: The Federal rules restrict any use of the information to criminally investigate or prosecute any alcohol or drug abuse patient.[facility] SystemIn the event this information is protected by the Federal Confidentiality of Alcohol and Drug Abuse Patient Records regulations: The Federal rules restrict any use of the information to criminally investigate or prosecute any alcohol or drug abuse patient.[facility] SystemIn the event this information is protected by the Federal Confidentiality of Alcohol and Drug Abuse Patient Records regulations: The Federal rules restrict any use of the information to criminally investigate or prosecute any alcohol or drug abuse patient.[facility] SystemIn the event this information is protected by the Federal Confidentiality of Alcohol and Drug Abuse Patient Records regulations: The Federal rules restrict any use of the information to criminally investigate or prosecute any alcohol or drug abuse patient.[facility] SystemIn the event this information is protected by the Federal Confidentiality of Alcohol and Drug Abuse Patient Records regulations: The Federal rules restrict any use of the information to criminally investigate or prosecute any alcohol or drug abuse patient.[facility] SystemIn the event this information is protected by the Federal Confidentiality of Alcohol and Drug Abuse Patient Records regulations: The Federal rules restrict any use of the information to criminally investigate or prosecute any alcohol or drug abuse patient.[facility] SystemIn the event this information is protected by the Federal Confidentiality of Alcohol and Drug Abuse Patient Records regulations: The Federal rules restrict any use of the information to criminally investigate or prosecute any alcohol or drug abuse patient.[facility] SystemIn the event this information is protected by the Federal Confidentiality of Alcohol and Drug Abuse Patient Records regulations: The Federal rules restrict any use of the information to criminally investigate or prosecute any alcohol or drug abuse patient.[facility] SystemIn the event this information is protected by the Federal Confidentiality of Alcohol and Drug Abuse Patient Records regulations: The Federal rules restrict any use of the information to criminally investigate or prosecute any alcohol or drug abuse patient.[facility] SystemIn the event this information is protected by the Federal Confidentiality of Alcohol and Drug Abuse Patient Records regulations: The Federal rules restrict any use of the information to criminally investigate or prosecute any alcohol or drug abuse patient.[facility] SystemIn the event this information is protected by the Federal Confidentiality of Alcohol and Drug Abuse Patient Records regulations: The Federal rules restrict any use of the information to criminally investigate or prosecute any alcohol or drug abuse patient.[facility] SystemIn the event this information is protected by the Federal Confidentiality of Alcohol and Drug Abuse Patient Records regulations: The Federal rules restrict any use of the information to criminally investigate or prosecute any alcohol or drug abuse patient.[facility] SystemIn the event this information is protected by the Federal Confidentiality of Alcohol and Drug Abuse Patient Records regulations: The Federal rules restrict any use of the information to criminally investigate or prosecute any alcohol or drug abuse patient.[facility] SystemIn the event this information is protected by the Federal Confidentiality of Alcohol and Drug Abuse Patient Records regulations: The Federal rules restrict any use of the information to criminally investigate or prosecute any alcohol or drug abuse patient.[facility] SystemIn the event this information is protected by the Federal Confidentiality of Alcohol and Drug Abuse Patient Records regulations: The Federal rules restrict any use of the information to criminally investigate or prosecute any alcohol or drug abuse patient.[facility] SystemIn the event this information is protected by the Federal Confidentiality of Alcohol and Drug Abuse Patient Records regulations: The Federal rules restrict any use of the information to criminally investigate or prosecute any alcohol or drug abuse patient.[facility] SystemIn the event this information is protected by the Federal Confidentiality of Alcohol and Drug Abuse Patient Records regulations: The Federal rules restrict any use of the information to criminally investigate or prosecute any alcohol or drug abuse patient.[facility] SystemIn the event this information is protected by the Federal Confidentiality of Alcohol and Drug Abuse Patient Records regulations: The Federal rules restrict any use of the information to criminally investigate or prosecute any alcohol or drug abuse patient.[facility] SystemIn the event this information is protected by the Federal Confidentiality of Alcohol and Drug Abuse Patient Records regulations: The Federal rules restrict any use of the information to criminally investigate or prosecute any alcohol or drug abuse patient.[facility] SystemIn the event this information is protected by the Federal Confidentiality of Alcohol and Drug Abuse Patient Records regulations: The Federal rules restrict any use of the information to criminally investigate or prosecute any alcohol or drug abuse patient.[facility] SystemIn the event this information is protected by the Federal Confidentiality of Alcohol and Drug Abuse Patient Records regulations: The Federal rules restrict any use of the information to criminally investigate or prosecute any alcohol or drug abuse patient.[facility] SystemIn the event this information is protected by the Federal Confidentiality of Alcohol and Drug Abuse Patient Records regulations: The Federal rules restrict any use of the information to criminally investigate or prosecute any alcohol or drug abuse patient.[facility] SystemIn the event this information is protected by the Federal Confidentiality of Alcohol and Drug Abuse Patient Records regulations: The Federal rules restrict any use of the information to criminally investigate or prosecute any alcohol or drug abuse patient.[facility] SystemIn the event this information is protected by the Federal Confidentiality of Alcohol and Drug Abuse Patient Records regulations: The Federal rules restrict any use of the information to criminally investigate or prosecute any alcohol or drug abuse patient.[facility] SystemIn the event this information is protected by the Federal Confidentiality of Alcohol and Drug Abuse Patient Records regulations: The Federal rules restrict any use of the information to criminally investigate or prosecute any alcohol or drug abuse patient.[facility] SystemIn the event this information is protected by the Federal Confidentiality of Alcohol and Drug Abuse Patient Records regulations: The Federal rules restrict any use of the information to criminally investigate or prosecute any alcohol or drug abuse patient.[facility] SystemIn the event this information is protected by the Federal Confidentiality of Alcohol and Drug Abuse Patient Records regulations: The Federal rules restrict any use of the information to criminally investigate or prosecute any alcohol or drug abuse patient.[facility] SystemIn the event this information is protected by the Federal Confidentiality of Alcohol and Drug Abuse Patient Records regulations: The Federal rules restrict any use of the information to criminally investigate or prosecute any alcohol or drug abuse patient.[facility] SystemIn the event this information is protected by the Federal Confidentiality of Alcohol and Drug Abuse Patient Records regulations: The Federal rules restrict any use of the information to criminally investigate or prosecute any alcohol or drug abuse patient.[facility] SystemIn the event this information is protected by the Federal Confidentiality of Alcohol and Drug Abuse Patient Records regulations: The Federal rules restrict any use of the information to criminally investigate or prosecute any alcohol or drug abuse patient.[facility] SystemIn the event this information is protected by the Federal Confidentiality of Alcohol and Drug Abuse Patient Records regulations: The Federal rules restrict any use of the information to criminally investigate or prosecute any alcohol or drug abuse patient.[facility] SystemIn the event this information is protected by the Federal Confidentiality of Alcohol and Drug Abuse Patient Records regulations: The Federal rules restrict any use of the information to criminally investigate or prosecute any alcohol or drug abuse patient.[facility] SystemIn the event this information is protected by the Federal Confidentiality of Alcohol and Drug Abuse Patient Records regulations: The Federal rules restrict any use of the information to criminally investigate or prosecute any alcohol or drug abuse patient.[facility] SystemIn the event this information is protected by the Federal Confidentiality of Alcohol and Drug Abuse Patient Records regulations: The Federal rules restrict any use of the information to criminally investigate or prosecute any alcohol or drug abuse patient.[facility] SystemIn the event this information is protected by the Federal Confidentiality of Alcohol and Drug Abuse Patient Records regulations: The Federal rules restrict any use of the information to criminally investigate or prosecute any alcohol or drug abuse patient.[facility] SystemIn the event this information is protected by the Federal Confidentiality of Alcohol and Drug Abuse Patient Records regulations: The Federal rules restrict any use of the information to criminally investigate or prosecute any alcohol or drug abuse patient.[facility] SystemIn the event this information is protected by the Federal Confidentiality of Alcohol and Drug Abuse Patient Records regulations: The Federal rules restrict any use of the information to criminally investigate or prosecute any alcohol or drug abuse patient.[facility] SystemIn the event this information is protected by the Federal Confidentiality of Alcohol and Drug Abuse Patient Records regulations: The Federal rules restrict any use of the information to criminally investigate or prosecute any alcohol or drug abuse patient.[facility] SystemIn the event this information is protected by the Federal Confidentiality of Alcohol and Drug Abuse Patient Records regulations: The Federal rules restrict any use of the information to criminally investigate or prosecute any alcohol or drug abuse patient.[facility] SystemIn the event this information is protected by the Federal Confidentiality of Alcohol and Drug Abuse Patient Records regulations: The Federal rules restrict any use of the information to criminally investigate or prosecute any alcohol or drug abuse patient.[facility] SystemIn the event this information is protected by the Federal Confidentiality of Alcohol and Drug Abuse Patient Records regulations: The Federal rules restrict any use of the information to criminally investigate or prosecute any alcohol or drug abuse patient.[facility] Reason for Visit (unrecogniz ed section and content) Reason Onset Date Comments Refill Request 05/03/2021 Reason Comments 6 Month Exam Reason Comments Results Reason Onset Date Comments Refill Request 10/04/2021 Reason Onset Date Comments Refill Request 11/28/2021 Reason Onset Date Comments Follow Up Wanting to discu ss medicatons. And discuss the right knee. Immunizations 11/29/2021 Flu vaccination Reason Comments Blood Pressure Recheck Reason Comments [place] [facility] Reason Comments Eye Problem Bilateral eyes x1 we ek with redness, clear drainage Reason Onset Date Comments Refill Request 02/08/2022 Reason Onset Date Comments Refill Request 02/22/2022 Reason Comments Follow Up 4 week-BP recheck Reason Comments Blood Pressure 4 week follow up Reason Comments Refill Request Reason Onset Date Comments Refill Request 04/28/2022 Reason Onset Date Comments Refill Request 05/26/2022 Reason Comments Hypertension Reason Onset Date Comments Refill Request 06/12/2022 Reason Comments Medication question Reason Onset Date Comments Refill Request 06/19/2022 Reason Comments Acute Visit memory test. Test TS H, B12, MRI Reason Onset Date Comments Refill Request 07/03/2022 Reason Comments Follow Up Reason Comments Follow Up 2 week blood pressur e check Reason Onset Date Comments Opened In Error 11/13/2022 Reason Onset Date Comments Refill Request 12/04/2022 Reason Comments FYI: patient update Reason Comments cognitive changes Reason Comments Follow Up 3 month Reason Comments Reason Comments Follow Up 3 month Reason Comments Insurance Form Specialty Diagnoses / Procedures Referred By Contac t Referred To Contact Diagnoses Mild cognitive impairment Hypertension, unspecified type Procedures NEUROPSYCHOLOGICAL TESTING CONSULT NEUROBEHAVIORAL STATUS XM PHYS/QHP 1ST HOUR NEUROPSYCHOLOGICAL TST EVAL PHYS/QHP 1ST HOUR NEUROPSYCHOLOGICAL TST EVAL PHYS/QHP EA ADDL HR PSYCL/NRPSYCL TST TECH 2+ TST 1ST 30 MIN PSYCL/NRPSYCL TST TECH 2+ TST EA ADDL 30 MIN Katty Rodriguez MD [address] [facility] [address] [place] [address] Referral ID Status Reason Start Date Expiration Date Visits Requested Visits Authorized [id number] Ref Not Required PCP Requested Referral 03/20/2023 06/18/2023 1 3 Reason Comments screening for forms Reason Comments Results Reason Comments Appointment Reason Comments Altered Mental Status Patient with recen t hospital admission for bleeding ulcer that was repaired then transferred to nursing facility. Hx dementia with increasing confusion. New catheter placed while at hospital (family states due to enlarged prostate). Patient was also started on a new medication. Specialty Diagnoses / Procedures Referred By Contac t Referred To Contact Diagnoses Blood loss anemia Upper GI bleed Encephalopathy Urinary tract infection associated with indwelling urethral catheter, initial encounter ([facility]) Procedures . Kobe Charles MD [address] [place] [address] [place] [address] Referral ID Status Reason Start Date Expiration Date Visits Re quested Visits Authorized [id number] 1 1 Reason Comments home health asking for verbal order Reason Comments Hospital F/U Reason Onset Date Comments Hospital Follow-up 06/19/2023 Reason Onset Date Comments Appointment Request 06/20/2023 Reason Comments home health coordinator calling Reason Comments [facility],verbal orders requeste d Reason Comments New Patient Lower urinary tract symptoms Reason Comments Orders Reason Comments PT plan of care Reason Comments ST Plan of Care Reason Onset Date Comments Refill Request 06/29/2023 Reason Comments Follow Up 3 month and BP follo w up Reason Onset Date Comments Refill Request 07/13/2023 Future Appointment 07/13/2023 pharmacy change 07/13/2023 Reason Comments FYI-OT follow up Reason Comments Physical Therapy Update Reason Onset Date Comments Refill Request 07/27/2023 Reason Comments Patient Update meds are being taken Reason Comments UTI C/o flank pain bilat erally x couple month patient reports Reason Comments Medication Problem Reason Comments Blood Pressure Check Stopped amlodipine Reason Onset Date Comments Refill Request 08/24/2023 Reason Comments Low BP readings. Reason Comments Patient Update Blood Pressure Readi ngs Reason Onset Date Comments Refill Request 09/21/2023 Reason Onset Date Comments Refill Request 09/25/2023 Reason Comments Aaliyah Vila/verify medication s Reason Comments Patient Question Medication Question Reason Comments Constipation Reason Comments Follow Up Reason Comments Patient Update Orders Reason Comments Patient Question Reason Comments Pre-Op Exam Reason Comments Results Appointment Stress Test, Echo Reason Comments Reminder Call Reason Comments orders faxed to [facility] - stress test Specialty Diagnoses / Procedures Referred By Sudhir phipps Referred To Contact Radiology / [facility] Diagnoses STAT Abnormal electrocardiogram [R94.31] Procedures NUCLEAR STRESS TEST PHARM ME Lenin Chaudhary MD [address] [place] [address] [facility] [address] [place] [address] Referral ID Status Reason Start Date Expiration Date Visits Re quested Visits Authorized [id number] Closed 12/13/2023 03/12/2024 1 1 Reason Comments Faxed to [facility] pre admission testing Reason Comments New Patient Reason Comments Driving test Reason Comments Cardiac Clearance Reason Comments Results Reason Comments New Patient Evaluation Rfd by Dr. Jennifer resendiz for CABG evaluation Reason Comments Future Appointment Reason Comments Schedule Surgery Reason Comments Lab Orders Reason Comments Spirometry Specialty Diagnoses / Procedures Referred By Sudhir phipps [facility] Diagnoses Multiple vessel coronary artery disease CHRISTIANO (obstructive sleep apnea) Preoperative testing Procedures SPIROMETRY BASELINE ONLY SPMTRY W/VC EXPIRATORY MO W/WO MXML VOL VNTJ Caroline Orlando, CHEMICAL RESEARCH ENGINEER.POLISHING MACHINE TENDER 1 [place] [address] Respiratory [place] [address] [place] [address] Referral ID Status Reason Start Date Expiration Date V isits Requested Visits Authorized [id number] Closed Auto-Generate d Referral 01/22/2024 02/20/2025 1 1 Specialty Diagnoses / Procedures Referred By Contac t Ref[facility] Diagnoses Multiple vessel coronary artery disease CHRISTIANO (obstructive sleep apnea) Preoperative testing Procedures LUNG DIFFUSION CAPACITY (DLCO) DIFFUSING CAPACITY Caroline Orlando APRN.POLISHING MACHINE TENDER 1 [place] [address] [facility] [place] [address] [place] [id number] Referral ID Status Reason Start Date Expiration Date V isits Requested Visits Authorized [id number] Closed Auto-Generate d Referral 01/22/2024 02/20/2025 1 1 Specialty Diagnoses / Procedures Referred By Contac t Referred [facility] Diagnoses Multiple vessel coronary artery disease CHRISTIANO (obstructive sleep apnea) Preoperative testing Procedures LUNG VOLUMES Caroline Orlando APRN.POLISHING MACHINE TENDER 1 [place] [address] [address] Referral ID Status Reason Start Date Expiration Date V isits Requested Visits Authorized [id number] Closed Auto-Generate d Referral 01/22/2024 02/20/2025 1 1 Specialty Diagnoses / Procedures Referred By Contac t Referred To Contact CT IMAGING Diagnoses Multiple vessel coronary artery disease CHRISTIANO (obstructive sleep apnea) Preoperative testing Procedures CT CHEST WO IVCON DIAGNOSTIC COMPUTED TOMOGRAPHY THORAX W/O CNTRST Caroline Orlando APRN.POLISHING MACHINE TENDER [address] [place] [address] [place] [address] Referral ID Status Reason Start Date Expiration Date V isits Requested Visits Authorized [id number] Closed Auto-Generate d Referral 01/22/2024 02/20/2025 1 1 Reason Comments Follow Up questions about upco constantino heart surgery Feb 24 at [facility], med refills needed, accompanied by son William Reason Comments Established Patient PAT - CABG Reason Comments Surgery Cancelled New Surgery Info Reason Comments Home Care MD to Follow Reason Comments Patient Update Reason Comments Post Op Post-op CABG Reason Comments Cardiac Rehab Referral info Reason Comments Patient Update Patient Question Reason Comments Sleep Problem Reason Comments Received Outside Medical Records Reason Comments Medication Request Reason Comments Patient Update Lab results Reason Comments Post Op 02/28/24 CABG Reason Comments Question Fax not received Reason Comments Follow Up Benign Prostatic Hypertrophy Nocturia Reason Comments CHF Reason Comments Patient Question AG HFC Reason Comments Remote HF Follow Up Reason Comments Other Lidocaine patch Reason Comments Post Op 02/28/24 CABG Reason Comments New Patient Lung nodule on CT Specialty Diagnoses / Procedures Referred By Sudhir phipps Referred To Contact Pulmonary Disease Diagnoses Lung nodule Procedures CONSULT TO LUNG NODULE CLINIC OFFICE/OUTPATIENT NEW HIGH MDM 60 MINUTES Maren Ruiz APRN.POLISHING MACHINE TENDER [address] [place] [address] Phone: tel: fax: Referral ID Status Reason Start Date Expiration Date V isits Requested Visits Authorized [id number] Closed PCP Requested Referral 02/01/2024 01/31/2025 1 1 Reason Comments Consult colonoscopy Reason Onset Date Comments Allied Health Visit 05/05/2024 Medication A dherence Outreach Reason Onset Date Comments Allied Health Visit 05/06/2024 Medication A dherence Outreach Reason Comments CHF Follow Up Remote HF Follow Up Reason Comments ak HFC follow up/phone visit Reason Comments [facility] update Reason Onset Date Comments Allied Health Visit 05/23/2024 Medication A dherence Outreach Reason Onset Date Comments Allied Health Visit 05/26/2024 Medication A dherence Outreach Reason Comments Blood In Urine Reason Onset Date Comments Refill Request 07/24/2024 Reason Onset Date Comments Allied Health Visit 07/25/2024 Medication A dherence Outreach Reason Onset Date Comments Population Health Navigation Outreach 07/22/2024 [employer] Daniel Reason Comments F/U 3 Month Memory changes withi n the last month Reason Onset Date Comments Refill Request 08/13/2024 Reason Comments Colonoscopy Instructions Reason Comments medication questions Reason Comments Blood Pressure Reason Onset Date Comments Transition Of Care 09/09/2024 Reach In Reason Onset Date Comments Transition Of Care 09/11/2024 TCM INITIAL O UTREACH Reason Comments Patient Update Delirium possible UTI Reason Comments ER F/U Rachelle Fischer hos p f/u 09/11/24. Missed chair when trying to sit and fell backwards and hit his head. Reason Comments CHF Follow Up Reason Onset Date Comments Transition Of Care 09/19/2024 TCM FU call d ay 9 Reason Onset Date Comments Allied Health Visit 09/22/2024 Medication A dherence Outreach Reason Onset Date Comments Transition Of Care 09/11/2024 TCM Pharmacy- Hospital discharge 09/10/24 Reason Onset Date Comments Results 09/25/2024 Reason Onset Date Comments Allied Health Visit 10/02/2024 Medication A dherence Outreach Reason Comments Arbitrator - Other Reason Comments 09-01-[address] Vazquez Reason Onset Date Comments Refill Request 10/15/2024 Reason Onset Date Comments Refill Request 10/17/2024 Reason Comments report low blood pressure Reason Onset Date Comments Allied Health Visit 10/28/2024 Medication a dherence outreach Reason Onset Date Comments Allied Health Visit 10/31/2024 Medication a dherence outreach Reason Onset Date Comments Results 11/04/2024 Care Teams (unrecognized sec tion and content) Casing Operator Relationship Specialty Start Date End Date Lenin Chaudhary MD [address] [place] [address] PCP - General Family Practice 06/05/16 Casing Operator Relationship Specialty Start Date End Date Lenin Chaudhary MD [address] [place] [address] PCP - General Family Practice 06/05/16 Casing Operator Relationship Specialty Start Date End Date Lenin Chaudhary MD [address] [place] [address] PCP - General Family Practice 06/05/16 Casing Operator Relationship Specialty Start Date End Date Lenin Chaudhary MD [address] [place] [address] PCP - General Family Practice 06/05/16 Casing Operator Relationship Specialty Start Date End Date Lenin Chaudhary MD [address] [place] [address] PCP - General Family Medicine 06/05/16 Casing Operator Relationship Specialty Start Date End Date Lenin Chaudhary MD [address] [place] [address] PCP - General Family Medicine 06/05/16 Casing Operator Relationship Specialty Start Date End Date Lenin Chaudhary MD [address] [place] [address] PCP - General Family Medicine 06/05/16 Casing Operator Relationship Specialty Start Date End Date Lenin Chaudhary MD [address] [place] [address] PCP - General Family Medicine 06/05/16 Casing Operator Relationship Specialty Start Date End Date Lenin Chaudhary MD [address] [place] [address] PCP - General Family Medicine 06/05/16 Casing Operator Relationship Specialty Start Date End Date Lenin Chaudhary MD [address] [place] [address] PCP - General Family Medicine 06/05/16 Casing Operator Relationship Specialty Start Date End Date Lenin Chaudhary MD [address] [place] [address] PCP - General Family Medicine 06/05/16 Casing Operator Relationship Specialty Start Date End Date Lenin Chaudhary MD [address] [place] [address] PCP - General Family Medicine 06/05/16 Casing Operator Relationship Specialty Start Date End Date Lenin Chaudhary MD [address] [place] [address] PCP - General Family Medicine 06/05/16 Casing Operator Relationship Specialty Start Date End Date Lenin Chaudhary MD [address] [place] [address] PCP - General Family Medicine 06/05/16 Casing Operator Relationship Specialty Start Date End Date Lenin Chaudhary MD [address] [place] [address] PCP - General Family Medicine 06/05/16 Casing Operator Relationship Specialty Start Date End Date Lenin Chaudhary MD [address] [place] [address] PCP - General Family Medicine 06/05/16 Casing Operator Relationship Specialty Start Date End Date Lenin Chaudhary MD [address] [place] [address] PCP - General Family Medicine 06/05/16 Casing Operator Relationship Specialty Start Date End Date Lenin Chaudhary MD [address] [place] [address] PCP - General Family Medicine 06/05/16 Casing Operator Relationship Specialty Start Date End Date Lenin Chaudhary MD [address] [place] [address] PCP - General Family Medicine 06/05/16 Casing Operator Relationship Specialty Start Date End Date Lenin Chaudhary MD [address] [place] [address] PCP - General Family Medicine 06/05/16 Casing Operator Relationship Specialty Start Date End Date Lenin Chaudhary MD [address] [place] [address] PCP - General Family Medicine 06/05/16 Casing Operator Relationship Specialty Start Date End Date Lenin Chaudhary MD [address] [place] [address] PCP - General Family Medicine 06/05/16 Casing Operator Relationship Specialty Start Date End Date Lenin Chaudhary MD [address] [place] [address] PCP - General Family Medicine 06/05/16 Casing Operator Relationship Specialty Start Date End Date Lenin Chaudhary MD [address] [place] [address] PCP - General Family Medicine 06/05/16 Casing Operator Relationship Specialty Start Date End Date Lenin Chaudhary MD [address] [place] [address] PCP - General Family Medicine 06/05/16 Casing Operator Relationship Specialty Start Date End Date Lenin Chaudhary MD [address] [place] [address] PCP - General Family Medicine 06/05/16 Casing Operator Relationship Specialty Start Date End Date Lenin Chaudhary MD [address] [place] [address] PCP - General Family Medicine 06/05/16 Casing Operator Relationship Specialty Start Date End Date Lenin Chaudhary MD [address] [place] [address] PCP - General Family Medicine 06/05/16 Team Status: Active Member Role Status Dates Dr. Dhara Jeter MD Family Provider Active Dr. Moiz Chaudhary MD Primary Care Provider Acti ve Team Status: Active Member Role Status Dates Dr. Moiz Chaudhary MD Primary Care Provider Acti ve Ronak Gauthier MD Emergency Provider Active Dr. Matthew Snow MD Admit Provider, Attending Provider Active Team Status: Active Member Role Status Dates Dr. Moiz Chaudhary MD Primary Care Provider Acti quintin Gauthier MD Emergency Provider Active Dr. Matthew Snow MD Admit Provi sawyer, Attending Provider, Other Provider Active Team Status: Active Member Role Status Dates Dr. Moiz Chaudhary MD Primary Care Provider Acti ve Ronak Gauthier MD Emergency Provider Active Dr. Matthew Snow MD Admit Provider, Other Pro vider Active Dr. William Romeo DO Attending Provider, Other Provid er Active Team Status: Active Member Role Status Dates Dr. Moiz Chaudhary MD Primary Care Provider Acti ve Ronak Gauthier MD Emergency Provider Active Dr. Matthew Snow MD Admit Provider, Other Pro vider Active Dr. William Romeo DO Other Provider Active Dr. Cami Diaz DO Attending Provider Active Team Status: Active Member Role Status Dates Dr. Moiz Chaudhary MD Primary Care Provider Acti ve Dr. Cami Diaz , Attending Provider Active Team Status: Inactive Member Role Status Dates Dr. Moiz Chaudhary MD Primary Care Provider Acti ve Ronak Gauthier MD Emergency Provider Active Dr. Matthew Snow MD Admit Provider, Other Pro vider Active Dr. William Romeo DO Attending Provider Active Casing Operator Relationship Specialty Start Date End Date Lenin Chaudhary MD [address] [place] [address] PCP - General Family Medicine 06/12/23 Casing Operator Relationship Specialty Start Date End Date Lenin Chaudhary MD [address] [place] [address] PCP - General Family Medicine 06/05/16 Casing Operator Relationship Specialty Start Date End Date Lenin Chaudhary MD [address] [place] [address] PCP - General Family Medicine 06/05/16 Casing Operator Relationship Specialty Start Date End Date Lenin Chaudhary MD [address] [place] [address] PCP - General Family Medicine 06/12/23 Casing Operator Relationship Specialty Start Date End Date Lenin Chaudhary MD [address] [place] [address] PCP - General Family Medicine 06/05/16 Casing Operator Relationship Specialty Start Date End Date Lenin Chaudhary MD [address] [place] [address] PCP - General Family Medicine 06/05/16 Casing Operator Relationship Specialty Start Date End Date Lenin Chaudhary MD [address] [place] [address] PCP - General Family Medicine 06/05/16 Casing Operator Relationship Specialty Start Date End Date Lenin Chaudhary MD [address] [place] [address] PCP - General Family Medicine 06/05/16 Casing Operator Relationship Specialty Start Date End Date Lenin Chaudhary MD [address] [place] [address] PCP - General Family Medicine 06/05/16 Casing Operator Relationship Specialty Start Date End Date Lenin Chaudhary MD [address] [place] [address] PCP - General Family Medicine 06/05/16 Casing Operator Relationship Specialty Start Date End Date Lenin Chaudhary MD [address] [place] [address] PCP - General Family Medicine 06/05/16 Casing Operator Relationship Specialty Start Date End Date Lenin Chaudhary MD [address] [place] [address] PCP - General Family Medicine 06/05/16 Casing Operator Relationship Specialty Start Date End Date Lenin Chaudhary MD [address] [place] [address] PCP - General Family Medicine 06/05/16 Casing Operator Relationship Specialty Start Date End Date Lenin Chaudhary MD [address] [place] [address] PCP - General Family Medicine 06/05/16 Casing Operator Relationship Specialty Start Date End Date Lenin Chaudhary MD [address] [place] [address] PCP - General Family Medicine 06/05/16 Casing Operator Relationship Specialty Start Date End Date Lenin Chaudhary MD [address] [place] [address] PCP - General Family Medicine 06/05/16 Casing Operator Relationship Specialty Start Date End Date Lenin Chaudhary MD [address] [place] [address] PCP - General Family Medicine 06/05/16 Casing Operator Relationship Specialty Start Date End Date Lenin Chaudhary MD [address] [place] [address] PCP - General Family Medicine 06/05/16 Casing Operator Relationship Specialty Start Date End Date Lenin Chaudhary MD [address] [place] [address] PCP - General Family Medicine 06/05/16 Casing Operator Relationship Specialty Start Date End Date Lenin Chaudhary MD [address] [place] [address] PCP - General Family Medicine 06/05/16 Casing Operator Relationship Specialty Start Date End Date Lenin Chaudhary MD [address] [place] [address] PCP - General Family Medicine 06/05/16 Casing Operator Relationship Specialty Start Date End Date Lenin Chaudhary MD [address] [place] [address] PCP - General Family Medicine 06/05/16 Casing Operator Relationship Specialty Start Date End Date Lenin Chaudhary MD [address] [place] [address] PCP - General Family Medicine 06/05/16 Casing Operator Relationship Specialty Start Date End Date Lenin Chaudhary MD [address] [place] [address] PCP - General Family Medicine 06/05/16 Casing Operator Relationship Specialty Start Date End Date Lenin Chaudhary MD [address] [place] [address] PCP - General Family Medicine 06/05/16 Casing Operator Relationship Specialty Start Date End Date Lenin Chaudhary MD [address] [place] [address] PCP - General Family Medicine 06/05/16 Casing Operator Relationship Specialty Start Date End Date Lenin Chaudhary MD [address] [facility] [place] [address] PCP - General Family Medicine 06/05/16 Casing Operator Relationship Specialty Start Date End Date Lenin Chaudhary MD [address] [place] [address] PCP - General Family Medicine 06/05/16 Podlogar, July, CHEMICAL RESEARCH ENGINEER.POLISHING MACHINE TENDER [address] [place] [address] [facility] 01/26/24 Casing Operator Relationship Specialty Start Date End Date Lenin Chaudhary MD [address] [place] [address] PCP - General Family Medicine 06/05/16 Podlogar, July, CHEMICAL RESEARCH ENGINEER.POLISHING MACHINE TENDER [address] [place] [address] [facility] 01/26/24 Casing Operator Relationship Specialty Start Date End Date Lenin Chaudhary MD [address] [place] [address] PCP - General Family Medicine 06/05/16 Podlogar, July, CHEMICAL RESEARCH ENGINEER.POLISHING MACHINE TENDER [address] [place] [address] [facility] Casing Operator Relationship Specialty Start Date End Date Lenin Chaudhary MD [address] [place] [address] PCP - General Family Medicine 06/05/16 Podlogar, July, CHEMICAL RESEARCH ENGINEER.POLISHING MACHINE TENDER [address] [place] [address] [facility] 01/26/24 Casing Operator Relationship Specialty Start Date End Date Lenin Chaudhary MD [address] [place] [address] PCP - General Family Medicine 06/05/16 Podlogar, July, CHEMICAL RESEARCH ENGINEER.POLISHING MACHINE TENDER [address] [facility] [place] [address] [facility] 01/26/24 Casing Operator Relationship Specialty Start Date End Date Lenin Chaudhary MD [address] [place] [address] PCP - General Family Medicine 06/05/16 Podlogar, July, CHEMICAL RESEARCH ENGINEER.POLISHING MACHINE TENDER [address] [place] [address] [facility] 01/26/24 Casing Operator Relationship Specialty Start Date End Date Lenin Chaudhary MD [address] [place] [address] PCP - General Family Medicine 06/05/16 Podlogar, July, CHEMICAL RESEARCH ENGINEER.POLISHING MACHINE TENDER [address] [place] [address] [facility] 01/26/24 Casing Operator Relationship Specialty Start Date End Date Lenin Chaudhary MD [address] [facility] [place] [address] PCP - General Family Medicine 06/05/16 Podlogar, July, CHEMICAL RESEARCH ENGINEER.POLISHING MACHINE TENDER [address] [facility] [place] [address] [facility] 01/26/24 Casing Operator Relationship Specialty Start Date End Date Lenin Chaudhary MD [address] [place] [address] PCP - General Family Medicine 06/05/16 Podlogar, July, CHEMICAL RESEARCH ENGINEER.POLISHING MACHINE TENDER [address] [facility] [place] [address] [facility] 01/26/24 Casing Operator Relationship Specialty Start Date End Date Lenin Chaudhary MD [address] [facility] [place] [address] PCP - General Family Medicine 06/05/16 Podlogar, July, CHEMICAL RESEARCH ENGINEER.POLISHING MACHINE TENDER [address] [facility] [place] [address] [facility] 01/26/24 Casing Operator Relationship Specialty Start Date End Date Lenin Chaudhary MD [address] [place] [address] PCP - General Family Medicine 06/05/16 Podlogar, July, CHEMICAL RESEARCH ENGINEER.POLISHING MACHINE TENDER [address] [facility] [place] [address] [facility] 01/26/24 Casing Operator Relationship Specialty Start Date End Date Lenin Chaudhary MD [address] [facility] [place] [address] PCP - General Family Medicine 06/05/16 Podlogar, July, CHEMICAL RESEARCH ENGINEER.POLISHING MACHINE TENDER [address] [place] [address] [facility] 01/26/24 Casing Operator Relationship Specialty Start Date End Date Lenin Chaudhary MD [address] [place] [address] PCP - General Family Medicine 06/05/16 Podlogar, July CHEMICAL RESEARCH ENGINEER.POLISHING MACHINE TENDER [address] [place] [address] [facility] 01/26/24 Casing Operator Relationship Specialty Start Date End Date Lenin Chaudhary MD [address] [place] [address] PCP - General Family Medicine 06/05/16 Podlogar, July, CHEMICAL RESEARCH ENGINEER.POLISHING MACHINE TENDER [address] [place] [address] [facility] 01/26/24 Casing Operator Relationship Specialty Start Date End Date Lenin Chaudhary MD [address] [place] [address] PCP - General Family Medicine 06/05/16 Podlogar, July, CHEMICAL RESEARCH ENGINEER.POLISHING MACHINE TENDER [address] [place] [address] [facility] 01/26/24 Casing Operator Relationship Specialty Start Date End Date Lenin Chaudhary MD [address] [place] [address] PCP - General Family Medicine 06/05/16 Podlogar, July, CHEMICAL RESEARCH ENGINEER.POLISHING MACHINE TENDER [address] [place] [address] [facility] 01/26/24 Casing Operator Relationship Specialty Start Date End Date Lenin Chaudhary MD [address] [place], [place] [address] PCP - General Family Medicine 06/05/16 Podlogar, LUTHER Mcdowell.POLISHING MACHINE TENDER [address] [place] [address] [facility] 01/26/24 Casing Operator Relationship Specialty Start Date End Date Lenin Chaudhary MD [address] [place] [address] PCP - General Family Medicine 06/05/16 Podlogar, LUTHER Mcdowell.POLISHING MACHINE TENDER [address] [place] [address] [facility] 01/26/24 Casing Operator Relationship Specialty Start Date End Date Lenin Chaudhary MD [address] [place] [address] PCP - General Family Medicine 06/05/16 Podlogar, LUTHER Mcdowell.POLISHING MACHINE TENDER [address] [place] [address] [facility] 01/26/24 Dhara Gill MD [address] [address] Cardiology 04/07/24 Casing Operator Relationship Specialty Start Date End Date Lenin Chaudhary MD [address] [place] [address] PCP - General Family Medicine 06/05/16 Podlogar, July, CHEMICAL RESEARCH ENGINEER.POLISHING MACHINE TENDER [address] [place] [address] [facility] 01/26/24 Dhara Gill MD [address] [place] [address] Cardiology 04/07/24 Casing Operator Relationship Specialty Start Date End Date Lenin Chaudhary MD [address] [place] [address] PCP - General Family Medicine 06/05/16 Podlogar, July, CHEMICAL RESEARCH ENGINEER.POLISHING MACHINE TENDER [address] [place] [address] [facility] 01/26/24 Dhara Gill MD [address] [place] [address] Cardiology 04/07/24 Casing Operator Relationship Specialty Start Date End Date Lenin Chaudhary MD [address] [place] [address] PCP - General Family Medicine 06/05/16 Podlogar, July, CHEMICAL RESEARCH ENGINEER.POLISHING MACHINE TENDER [address] [place] [address] [facility] 01/26/24 Dhara Gill MD [address] [place] [address] Cardiology 04/07/24 Casing Operator Relationship Specialty Start Date End Date Lenin Chaudhary MD [address] [facility] [place] [address] PCP - General Family Medicine 06/05/16 Podlogar, July, CHEMICAL RESEARCH ENGINEER.POLISHING MACHINE TENDER [address] [place] [address] [facility] 01/26/24 Dhara Gill MD [address] [place] [address] Cardiology 04/07/24 Casing Operator Relationship Specialty Start Date End Date Lenin Cahudhary MD [address] [place] [address] PCP - General Family Medicine 06/05/16 Podlogar, July, CHEMICAL RESEARCH ENGINEER.POLISHING MACHINE TENDER [address] [place] [address] Tack [facility] 01/26/24 Dhara Gill MD [address] [place] [address] Cardiology 04/07/24 Casing Operator Relationship Specialty Start Date End Date Lenin Chaudhary MD [address] [place] [address] PCP - General Family Medicine 06/05/16 Podlogar, July, CHEMICAL RESEARCH ENGINEER.POLISHING MACHINE TENDER [address] [place] [address] [facility] 01/26/24 Dhara Gill MD [address] [place] [address] Cardiology 04/07/24 Casing Operator Relationship Specialty Start Date End Date Lenin Chaudhary MD [address] [place] [address] PCP - General Family Medicine 06/05/16 PodlogarJuly APRN.POLISHING MACHINE TENDER [address] [place] [address] [facility] 01/26/24 Dhara Gill MD [address] [place] [address] Cardiology 04/07/24 Casing Operator Relationship Specialty Start Date End Date Lenin Chaudhary MD [address] [place] [address] PCP - General Family Medicine 06/05/16 PodlogarJuly APRN.POLISHING MACHINE TENDER [address] [place] [address] [facility] 01/26/24 Dhara Gill MD [address] [place] [address] Cardiology 04/07/24 Casing Operator Relationship Specialty Start Date End Date Lenin Chaudhary MD [address] [place] [address] PCP - General Family Medicine 06/05/16 PodlogarJuly APRN.POLISHING MACHINE TENDER [address] [place] [address] [facility] 01/26/24 Dhara Gill MD [address] [place] [address] Cardiology 04/07/24 Casing Operator Relationship Specialty Start Date End Date Lenin Chaudhary MD [address] [place] [address] PCP - General Family Medicine 06/05/16 Podlogar, July, CHEMICAL RESEARCH ENGINEER.POLISHING MACHINE TENDER [address] [place] [address] [facility] 01/26/24 Dhara Gill MD [address] [place] [address] Cardiology 04/07/24 Casing Operator Relationship Specialty Start Date End Date Lenin Chaudhary MD [address] [place] [address] PCP - General Family Medicine 06/05/16 Podlogar, July, CHEMICAL RESEARCH ENGINEER.POLISHING MACHINE TENDER [address] [place] [address] [facility] 01/26/24 Dhara Gill MD [address] [place] [address] Cardiology 04/07/24 Diane Purvis CHEMICAL RESEARCH ENGINEER.POLISHING MACHINE TENDER [address] [place] [address] [facility] 05/02/24 Casing Operator Relationship Specialty Start Date End Date Lenin Chaudhary MD [address] [place] [address] PCP - General Family Medicine 06/05/16 Podlogar, July, CHEMICAL RESEARCH ENGINEER.POLISHING MACHINE TENDER [address] [place] [address] [facility] 01/26/24 Dhara Gill MD [address] [place] [address] Cardiology 04/07/24 Diane Purvis, CHEMICAL RESEARCH ENGINEER.POLISHING MACHINE TENDER [address] [place] [address] [facility] 05/02/24 Casing Operator Relationship Specialty Start Date End Date Lenin Chaudhary MD [address] [place] [address] PCP - General Family Medicine 06/05/16 PodlogarJuly, CHEMICAL RESEARCH ENGINEER.POLISHING MACHINE TENDER [address] [place] [address] [facility] 01/26/24 Dhara Gill MD [address] [place] [address] Cardiology 04/07/24 Diane Purvis, CHEMICAL RESEARCH ENGINEER.POLISHING MACHINE TENDER [address] [place] [address] [facility] 05/02/24 Casing Operator Relationship Specialty Start Date End Date Lenin Chaudhary MD [address] [place] [address] PCP - General Family Medicine 06/05/16 Podlogar, July, CHEMICAL RESEARCH ENGINEER.POLISHING MACHINE TENDER [address] [place] [address] [facility] 01/26/24 Dhara Gill MD [address] [place] [address] Cardiology 04/07/24 Diane Purvis, LUTHER.POLISHING MACHINE TENDER [address] [place] [address] [facility] 05/02/24 Casing Operator Relationship Specialty Start Date End Date Lenin Chaudhary MD [address] [place] [address] PCP - General Family Medicine 06/05/16 PodlogarJuly, CHEMICAL RESEARCH ENGINEER.POLISHING MACHINE TENDER [address] [place] [address] [facility] 01/26/24 Dhara Gill MD [address] [place] [address] Cardiology 04/07/24 Diane Purvis, CHEMICAL RESEARCH ENGINEER.POLISHING MACHINE TENDER [address] [place] [address] [facility] 05/02/24 Casing Operator Relationship Specialty Start Date End Date Lenin Chaudhary MD [address] [place] [address] PCP - General Family Medicine 06/05/16 Podlogar, July, CHEMICAL RESEARCH ENGINEER.POLISHING MACHINE TENDER [address] [place] [address] [facility] 01/26/24 Dhara Gill MD [address] [place] [address] Cardiology 04/07/24 Diane Purvis APRN.POLISHING MACHINE TENDER [address] [place] [address] [facility] Casing Operator Relationship Specialty Start Date End Date Lenin Chaudhary MD [address] [place] [address] PCP - General Family Medicine 06/05/16 Podlogar, LUTHER Mcdowell.POLISHING MACHINE TENDER [address] [place] [address] [facility] 01/26/24 Dhara Gill MD [address] [place] [address] Cardiology 04/07/24 Diane Purvis CHEMICAL RESEARCH ENGINEER.POLISHING MACHINE TENDER [address] [place] [address] [facility] 05/12[facility] Casing Operator Relationship Specialty Start Date End Date Lenin Chaudhary MD [address] [place] [address] PCP - General Family Medicine 06/05/16 Podlogar, July, CHEMICAL RESEARCH ENGINEER.POLISHING MACHINE TENDER [address] [place] [address] [facility] 01/26/24 Dhara Gill MD [address] [place] [address] Cardiology 04/07/24 Diane Purvis APRN.POLISHING MACHINE TENDER [address] [place] [address] [facility] 05/02/24 05/11/24 Diane Purvis APRN.POLISHING MACHINE TENDER [address] [place] [address] [facility] Team Status: Active Member Role Status Dates Dr. Moiz Chaudhary MD Primary Care Provider Acti ve Team Status: Inactive Member Role Status Dates Dr. Moiz Chaudhary MD Primary Care Provider Acti ve Start: March 31, 2024 End: March 31, 2024 Dr. Moiz Chaudhary MD Referring Provider Active Start: March 31, 2024 End: March 31, 2024 Dr. Cami Diaz DO Attending Provider Active Start: March 31, 2024 End: March 31, 2024 Team Status: Active Member Role Status Dates Dr. Moiz Chaudhary MD Primary Care Provider Acti ve Start: March 31, 2024 Dr. Moiz Chaudhary MD Referring Provider Active Start: March 31, 2024 Dr. Cami Diaz DO Attending Provider Active Start: March 31, 2024 Dr. Cami Diaz DO Other Provider Active St art: March 31, 2024 Team Status: Active Member Role Status Dates Dr. Moiz Chaudhary MD Primary Care Provider Acti ve Start: March 31, 2024 End: March 31, 2024 Dr. Amalia Reynoso MD Attending Provider Active Start: March 31, 2024 End: March 31, 2024 Dr. Cami Diaz DO Referring Provider Active Start: March 31, 2024 End: March 31, 2024 Team Status: Inactive Member Role Status Dates Dr. Moiz Chaudhary MD Primary Care Provider Acti ve Start: April 30, 2024 End: April 30, 2024 Dr. Kodak Iqbal MD Attending Provider Active Start: April 30, 2024 End: April 30, 2024 Dr. Kodak Iqbal MD Referring Provider Active Start: April 30, 2024 End: April 30, 2024 Team Status: Inactive Member Role Status Dates Dr. Moiz Chaudhary MD Primary Care Provider Acti ve Start: May 19, 2024 End: May 19, 2024 Dr. Kodak Iqbal MD Attending Provider Active Start: May 19, 2024 End: May 19, 2024 Dr. Kodak Iqbal MD Referring Provider Active Start: May 19, 2024 End: May 19, 2024 Casing Operator Relationship Specialty Start Date End Date Lenin Chaudhary MD [address] [place] [address] PCP - General Family Medicine 06/05/16 PodlogarJuly APRN.POLISHING MACHINE TENDER [address] [place] [address] [facility] 01/26/24 Dhara Gill MD [address] [place] [id number] Cardiology 04/07/24 Diane Purvis APRN.POLISHING MACHINE TENDER [address] [place] [address] [facility] 05/12/24 Casing Operator Relationship Specialty Start Date End Date Lenin Chaudhary MD [address] [place] [address] PCP - General Family Medicine 06/05/16 PodlogarJuly APRN.POLISHING MACHINE TENDER [address] [place] [address] [facility] Medicine 01/26/24 Dhara Gill MD [address] [place] [address] Cardiology 04/07/24 Diane Purvsi APRN.POLISHING MACHINE TENDER [address] [place] [address] [facility] 05/12/24 Casing Operator Relationship Specialty Start Date End Date Lenin Chaudhary MD [address] [place] [address] PCP - General Family Medicine 06/05/16 PodlogarJuly APRN.POLISHING MACHINE TENDER [address] [place] [address] [facility] 01/26/24 Dhara Gill MD [address] [place] [address] (Fax) Cardiology 04/07/24 Diane Purvis APRN.POLISHING MACHINE TENDER [address] [place] [address] [facility] Casing Operator Relationship Specialty Start Date End Date Lenin Chaudhary MD [address] [place] [address] PCP - General Family Medicine 06/05/16 PodlogarJuly APRN.POLISHING MACHINE TENDER [address] [place] [address] [facility] 01/26/24 Dhara Gill MD [address] [place] [address] Cardiology 04/07/24 Diane Purvis APRN.POLISHING MACHINE TENDER [address] [place] [address] [facility] 05/12/24 Casing Operator Relationship Specialty Start Date End Date Lenin Chaudhary MD [address] [place] [address] PCP - General Family Medicine 06/05/16 PodlogarJuly, CHEMICAL RESEARCH ENGINEER.POLISHING MACHINE TENDER [address] [place] [address] [facility] 01/26/24 Dhara Gill MD [address] [place] [address] Cardiology 04/07/24 Diane Purvis APRN.POLISHING MACHINE TENDER [address] [place] [address] [facility] 05/12/24 Casing Operator Relationship Specialty Start Date End Date Lenin Chaudhary MD [address] [place] [address] PCP - General Family Medicine 06/05/16 Podlogar, July CHEMICAL RESEARCH ENGINEER.POLISHING MACHINE TENDER [address] [place] [address] [facility] 01/26/24 Dhara Gill MD [address] [place] [address] Cardiology 04/07/24 Diane Purvis APRN.POLISHING MACHINE TENDER [address] [place] [address] [facility] Casing Operator Relationship Specialty Start Date End Date Lenin Chaudhary MD [address] [place], [place] [address] PCP - General Family Medicine 06/05/16 PodlogarJuly APRN.POLISHING MACHINE TENDER [address] [place], [place] [address] [facility] 01/26/24 Dhara Gill MD [address] [address] Cardiology 04/07/24 Diane Purvis APRN.POLISHING MACHINE TENDER [address] [place], [place] [address] [facility] 07/06/24 Team Status: Inactive Member Role Status Dates Dr. Moiz Chaudhary MD Primary Care Provider Acti ve Start: June 18, 2024 End: June 18, 2024 Dr. Kodak Iqbal MD Attending Provider Active Start: June 18, 2024 End: June 18, 2024 Dr. Kodak Iqbal MD Referring Provider Active Start: June 18, 2024 End: June 18, 2024 Team Status: Inactive Member Role Status Dates Dr. Moiz Chaudhary MD Primary Care Provider Acti ve Start: July 18, 2024 End: July 19, 2024 Dr. Kodak Iqbal MD Attending Provider Active Start: July 18, 2024 End: July 19, 2024 Dr. Kodak Iqbal MD Referring Provider Active Start: July 18, 2024 End: July 19, 2024 Casing Operator Relationship Specialty Start Date End Date Lenin Chaudhary MD [address] [place], [place] [address] PCP - General Family Medicine 06/05/16 PodlogarJuly APRN.POLISHING MACHINE TENDER [address] [place] [address] [facility] 01/26/24 Dhara Gill MD [address] [place] [address] Cardiology 04/07/24 Casing Operator Relationship Specialty Start Date End Date Lenin Chaudhary MD [address] [place] [address] PCP - General Family Medicine 06/05/16 Podlogar, LUTHER Mcdowell.POLISHING MACHINE TENDER [address] [place] [address] [facility] 01/26/24 Dhara Gill MD [address] [place] [address] Cardiology 04/07/24 Diane Purvis APRN.POLISHING MACHINE TENDER [address] [place] [address] [facility] 07/31/24 Casing Operator Relationship Specialty Start Date End Date Lenin Chaudhary MD [address] [place] [address] PCP - General Family Medicine 06/05/16 Podlogar, July CHEMICAL RESEARCH ENGINEER.POLISHING MACHINE TENDER [address] [place] [address] [facility] 01/26/24 Dhara Gill MD [address] [place] [address] Cardiology 04/07/24 Diane Purvis APRN.POLISHING MACHINE TENDER [address] [place] [address] [facility] 05/12/24 07/06/24 Diane Purvis APRN.POLISHING MACHINE TENDER [address] [place] [address] [facility] 07/31/24 Casing Operator Relationship Specialty Start Date End Date Lenin Chaudhary MD [facility] [place] [address] PCP - General Family Medicine 06/05/16 PodlogarJuly APRN.POLISHING MACHINE TENDER [address] [place] [address] [facility] 01/26/24 Dhara Gill MD [address] [place] [address] Cardiology 04/07/24 Diane Purvis APRN.POLISHING MACHINE TENDER [address] [place] [address] [facility] 07/31/[facility] Casing Operator Relationship Specialty Start Date End Date Lenin Chaudhary MD [facility] [place] [address] PCP - General Family Medicine 06/05/16 PodlogarJuly APRN.POLISHING MACHINE TENDER [address] [place] [address] [facility] 01/26/24 Dhara Gill MD [address] [place] [address] Cardiology 04/07/24 Diane Purvis, CHEMICAL RESEARCH ENGINEER.POLISHING MACHINE TENDER [address] [place], [place] [id number] [facility] 07/31/24 Casing Operator Relationship Specialty Start Date End Date Lenin Chaudhary MD [address] [place], [place] [address] PCP - General Family Medicine 06/05/16 PodlogarJuly APRN.POLISHING MACHINE TENDER [address] [place], [place] [address] [facility] 01/26/24 Dhara Gill MD [address] [id number] Cardiology 04/07/24 Diane Purvis, CHEMICAL RESEARCH ENGINEER.POLISHING MACHINE TENDER [address] [place] [phone] [facility] 07/31/24 Team Status: Active Member Role/Relationship Status Dates Dr. Moiz Chaudhary MD Primary Care Provider Acti ve Team Status: Inactive Member Role/Relationship Status Dates Dr. Moiz Chaudhary MD Primary Care Provider Acti ve Start: April 30, 2024 End: April 30, 2024 Dr. Kodak Iqbal MD Attending Provider Active Start: April 30, 2024 End: April 30, 2024 Dr. Kodak Iqbal MD Referring Provider Active Start: April 30, 2024 End: April 30, 2024 Team Status: Inactive Member Role/Relationship Status Dates Dr. Moiz Chaudhary MD Primary Care Provider Acti ve Start: May 19, 2024 End: May 19, 2024 Dr. Kodak Iqbal MD Attending Provider Active Start: May 19, 2024 End: May 19, 2024 Dr. Kodak Iqbal MD Referring Provider Active Start: May 19, 2024 End: May 19, 2024 Team Status: Inactive Member Role/Relationship Status Dates Dr. Moiz Chaudhary MD Primary Care Provider Acti ve Start: June 18, 2024 End: June 18, 2024 Dr. Kodak Iqbal MD Attending Provider Active Start: June 18, 2024 End: June 18, 2024 Dr. Kodak Iqbal MD Referring Provider Active Start: June 18, 2024 End: June 18, 2024 Team Status: Inactive Member Role/Relationship Status Dates Dr. Moiz Chaudhary MD Primary Care Provider Acti ve Start: July 18, 2024 End: July 19, 2024 Dr. Kodak Iqbal MD Attending Provider Active Start: July 18, 2024 End: July 19, 2024 Dr. Kodak Iqbal MD Referring Provider Active Start: July 18, 2024 End: July 19, 2024 Team Status: Inactive Member Role/Relationship Status Dates Dr. Moiz Chaudhary MD Primary Care Provider Acti ve Start: August 06, 2024 End: August 18, 2024 Dr. Kodak Iqbal MD Attending Provider Active Start: August 06, 2024 End: August 18, 2024 Dr. Kodak Iqbal MD Referring Provider Active Start: August 06, 2024 End: August 18, 2024 Casing Operator Relationship Specialty Start Date End Date Lenin Chaudhary MD [address] [place] [address] PCP - General Family Medicine 06/05/16 PodlogarJuly APRN.POLISHING MACHINE TENDER [address] [place] [address] [facility] 01/26/24 Dhara Gill MD [address] [address] Cardiology 04/07/24 Diane Purvis APRN.POLISHING MACHINE TENDER [address] [place] [address] [facility] 07/31/24 Casing Operator Relationship Specialty Start Date End Date Lenin Chaudhary MD [address] [place] [address] PCP - General Family Medicine 06/05/16 PodlogarJuly APRN.POLISHING MACHINE TENDER [address] [place] [address] [facility] 01/26/24 Dhara Gill MD [address] [place] [address] (Fax) Cardiology 04/07/24 Diane Purvis APRN.POLISHING MACHINE TENDER [address] [place] [address] [facility] 07/[facility] Casing Operator Relationship Specialty Start Date End Date Lenin Chaudhary MD [address] [place] [address] PCP - General Family Medicine 06/05/16 PodlogarJuly APRN.POLISHING MACHINE TENDER [address] [place] [address] [facility] 01/26/24 Dhara Gill MD [address] [place] [address] Cardiology 04/07/24 Diane Purvis APRN.POLISHING MACHINE TENDER [address] [place] [address] [facility] 07/31/24 Casing Operator Relationship Specialty Start Date End Date Lenin Chaudhary MD [address] [place] [address] PCP - General Family Medicine 06/05/16 PodlogarJuly, CHEMICAL RESEARCH ENGINEER.POLISHING MACHINE TENDER [address] [place] [address] [facility] 01/26/24 Dhara Gill MD [address] [place] [address] Cardiology 04/07/24 Diane Purvis APRN.POLISHING MACHINE TENDER [address] [place] [address] [facility] 07/31/24 Casing Operator Relationship Specialty Start Date End Date Lenin Chaudhary MD [address] [place] [address] PCP - General Family Medicine 06/05/16 Podlogar, July CHEMICAL RESEARCH ENGINEER.POLISHING MACHINE TENDER [address] [place] [address] [facility] 01/26/24 Dhara Gill MD [address] [place] [address] Cardiology 04/07/24 Diane Purvis APRN.POLISHING MACHINE TENDER [address] [place] [address] [facility] Casing Operator Relationship Specialty Start Date End Date Lenin Chaudhary MD [address] [place] [address] PCP - General Family Medicine 06/05/16 PodlogarJuly APRN.POLISHING MACHINE TENDER [address] [place] [address] [facility] 01/26/24 Dhara Gill MD [address] [address] Cardiology 04/07/24 Diane Purvis APRN.POLISHING MACHINE TENDER [address] [place] [address] [facility] 07/31/24 Casing Operator Relationship Specialty Start Date End Date Lenin Chaudhary MD [address] [place] [address] PCP - General Family Medicine 06/05/16 PodlogarJuly APRN.POLISHING MACHINE TENDER [address] [place] [address] [facility] 01/26/24 Dhara Gill MD [address] [address] Cardiology 04/07/24 Diane Purvis CHEMICAL RESEARCH ENGINEER.POLISHING MACHINE TENDER [address] [place] [address] [facility] 07/31/24 Casing Operator Relationship Specialty Start Date End Date Lenin Chaudhary MD [address] [place] [address] PCP - General Family Medicine 06/05/16 Podlogar, July, CHEMICAL RESEARCH ENGINEER.POLISHING MACHINE TENDER [address] [place] [address] [facility] 01/26/24 Dhara Gill MD [address] [place] [address] Cardiology 04/07/24 Diane Purvis, CHEMICAL RESEARCH ENGINEER.POLISHING MACHINE TENDER [address] [place] [address] [facility] 07/31/24 Casing Operator Relationship Specialty Start Date End Date Lenin Chaudhary MD [facility] [place] [address] PCP - General Family Medicine 06/05/16 Podlogar, July, CHEMICAL RESEARCH ENGINEER.POLISHING MACHINE TENDER [address] [place] [address] [facility] 01/26/24 Dhara Gill MD [address] [place] [address] Cardiology 04/07/24 Diane Purvis, CHEMICAL RESEARCH ENGINEER.POLISHING MACHINE TENDER [address] [place] [address] [facility] 07/31/24 Casing Operator Relationship Specialty Start Date End Date Lenin Chaudhary MD [address] [place] [address] PCP - General Family Medicine 06/05/16 Podlogar, July, CHEMICAL RESEARCH ENGINEER.POLISHING MACHINE TENDER [address] [place] [address] [facility] 01/26/24 Dhara Gill MD [address] [place] [address] Cardiology 04/07/24 Diane Purvis APRN.POLISHING MACHINE TENDER [address] [place] [address] [facility] 07/31/24 Everett Arteaga [facility] [address] [place], [place] [id number] Transitional Care Pharmacist Pharmacy 09/11/24 10/10/24 Rebecca Atkinson, KATELYN [address] [place], [place] [id number] Primary Care Medical Affairs Leader 09/11/24 Casing Operator Relationship Specialty Start Date End Date Lenin Chaudhary MD [address] [place] [address] PCP - General Family Medicine 06/05/16 PodlogarJuly APRN.POLISHING MACHINE TENDER [address] [place] [address] [facility] 01/26/24 Dhara Gill MD [address] [place] [address] Cardiology 04/07/24 Diane Purvis APRN.POLISHING MACHINE TENDER [address] [place] [address] [facility] 07/31/24 Everett Arteaga [facility] [address] [place] [address] Transitional Care Pharmacist Pharmacy 09/11/24 10/10/24 Rebecca Atkinson, KATELYN [address] [place], [place] [phone] Primary Care Medical Affairs Leader 09/11/24 Casing Operator Relationship Specialty Start Date End Date Lenin Chaudhary MD [address] [place], [place] [address]101 PCP - General Family Medicine 06/05/16 PodlogarJuly CHEMICAL RESEARCH ENGINEER.POLISHING MACHINE TENDER [address] [place], [place] [address] [facility] 01/26/24 Dhara Gill MD [address] [place] [address] Cardiology 04/07/24 Diane Purvis APRN.POLISHING MACHINE TENDER [address] [place] [phone] [facility] 07/31/24 Everett Arteaga [facility] [address] [place] [address] Transitional Care Pharmacist Pharmacy 09/11/24 10/10/24 Rebecca Atkinson, KATELYN [address] [place] [address] Primary Care Medical Affairs Leader 09/11/24 Casing Operator Relationship Specialty Start Date End Date Lenin Chaudhary MD [address] [place] [address] PCP - General Family Medicine 06/05/16 Podlogar, July, CHEMICAL RESEARCH ENGINEER.POLISHING MACHINE TENDER [address] [place] [address] [facility] 01/26/24 Dhara Gill MD [address] [place] [address] Cardiology 04/07/24 Diane Purvis APRN.POLISHING MACHINE TENDER [address] [place] [address] [facility] 07/31/24 Everett Arteaga [facility] [address] [place], [place] [id number] Transitional Care Pharmacist Pharmacy 09/11/24 10/10/24 Rebecca Atkinson, KATELYN [address] [place], [place] [phone] Primary Care Medical Affairs Leader 09/11/24 Casing Operator Relationship Specialty Start Date End Date Lenin Chaudhary MD [address] [place] [address] PCP - General Family Medicine 06/05/16 PodlogarJuly APRN.POLISHING MACHINE TENDER [address] [place] [address] [facility] 01/26/24 Dhara Gill MD [address] [place] [address] [place] [address] Cardiology 04/07/24 Diane Purvis APRN.POLISHING MACHINE TENDER [address] [place] [address] [facility] Medicine 07/31/24 Everett Arteaga [facility] [address] [place] [address] Transitional Care Pharmacist Pharmacy 09/11/24 10/10/24 Rebecca Atkinson, KATELYN [address] [place] [address] Primary Care Medical Affairs Leader 09/11/24 Casing Operator Relationship Specialty Start Date End Date Lenin Chaudhary MD [address] [place], [place] [id number] PCP - General Family Medicine 06/05/16 PodlogarJuly CHEMICAL RESEARCH ENGINEER.POLISHING MACHINE TENDER [address] [place], [place] [phone] Tack Driller Family Medicine 01/26/24 Dhara Gill MD [address] [place] [address] [phone] Cardiology 04/07/24 Diane Purvis APRN.POLISHING MACHINE TENDER [address] [place], [place] [phone] Tack Driller Family Medicine 07/31/24 Everett Arteaga [facility] [address] [place], [place] [phone] Transitional Care Pharmacist Pharmacy 09/11/24 10/10/24 Rebecca Atkinson, KATELYN [address] [place] [address] Primary Care Medical Affairs Leader 09/11/24 Casing Operator Relationship Specialty Start Date End Date Lenin Chaudhary MD [address] [place] [address] PCP - General Family Medicine 06/05/16 PodlogarJuly, CHEMICAL RESEARCH ENGINEER.POLISHING MACHINE TENDER [address] [place] [address] Tack Driller Family Medicine 01/26/24 Dhara Gill MD [address] [place] [address] [place] [phone] Cardiology 04/07/24 Diane Purvis APRN.POLISHING MACHINE TENDER [address] [place] [address] Tack Driller Family Medicine 07/31/24 Everett Arteaga [facility] [address] [place], [place] [phone] Transitional Care Pharmacist Pharmacy 09/11/24 10/10/24 Rebecca Atkinson, KATELYN [address] [place], [place] [phone] Primary Care Medical Affairs Leader 09/11/24 Casing Operator Relationship Specialty [place] [address] [place] [address] PCP - General Family Medicine 06/05/16 PodlogarJuly APRN.POLISHING MACHINE TENDER [address] [place] [address] Tack Driller Family Medicine 01/26/24 Dhara Gill MD [address] [address] Cardiology 04/07/24 Diane Purvis APRN.POLISHING MACHINE TENDER [address] [place] [address] Tack Driller Family Medicine 07/31/24 Everett Arteaga [facility] [address] [place] [address] Transitional Care Pharmacist Pharmacy 09/11/24 10/10/24 Rebecca Atkinson, KATELYN [address] [place], [place] [phone] Primary Care Medical Affairs Leader 09/11/24 Casing Operator Relationship Specialty Start Date End Date Lenin Chaudhary MD [address] [place], [place] [id number] PCP - General Family Medicine 06/05/16 PodlogarJuly CHEMICAL RESEARCH ENGINEER.POLISHING MACHINE TENDER [address] [place], [place] [address] Tack Driller Family Medicine 01/26/24 Dhara Gill MD [address] [place] [address] [phone] Cardiology 04/07/24 Diane Purvis APRN.POLISHING MACHINE TENDER [address] [place] [address] [phone] Tack Driller Family Medicine 07/31/24 Everett Arteaga RPh [address] [place] [address] Transitional Care Pharmacist Pharmacy 09/11/24 10/10/24 Rebecca Atkinson, KATELYN [address] [place] [address] Primary Care Medical Affairs Leader 09/11/24 Casing Operator Relationship Specialty Start Date End Date Lenin Chaudhary MD [address] [place] [address] PCP - General Family Medicine 06/05/16 Podlogar, July, CHEMICAL RESEARCH ENGINEER.POLISHING MACHINE TENDER [address] [place] [address] Tack Driller Family Medicine 01/26/24 Dhara Gill MD [address] [address] Cardiology 04/07/24 Diane Purvis APRN.POLISHING MACHINE TENDER [address] [place] [address] Tack Driller Family Medicine 07/31/24 Everett Arteaga [facility] [address] [place] [address] Transitional Care Pharmacist Pharmacy 09/11/24 10/10/24 Rebecca Atkinson, KATELYN [address] [place], [place] [phone] Primary Care Medical Affairs Leader 09/11/24 Casing Operator Relationship Specialty Start Date End Date Lenin Chaudhary MD [address] [place] [phone] PCP - General Family Medicine 06/05/16 PodlogarJuly APRN.POLISHING MACHINE TENDER [address] [place] [phone] Tack Driller Family Medicine 01/26/24 Dhara Gill MD [address] [address] Cardiology 04/07/24 Diane Purvis APRN.POLISHING MACHINE TENDER [address] [place] [address] Tack Driller Family Medicine 07/31/24 Everett Arteaga [facility] [address] [place] [address] Transitional Care Pharmacist Pharmacy 09/11/24 10/10/24 Rebecca Atkinson, RN [address] [place] [address] Primary Care Medical Affairs Leader 09/11/24 Casing Operator Relationship Specialty Start Date End Date Lenin Chaudhary MD [address] [place] [address] [phone] PCP - General Family Medicine 06/05/16 PodlogarJuly CHEMICAL RESEARCH ENGINEER.POLISHING MACHINE TENDER [address] [place] [address] [phone] Tack Driller Family Medicine 01/26/24 Dhara Gill MD [address] [phone] Cardiology 04/07/24 Diane Purvis, CHEMICAL RESEARCH ENGINEER.POLISHING MACHINE TENDER [address] [place] [address] [phone] Tack Driller Family Medicine 05/02/24 05/11/24 Diane Purvis, CHEMICAL RESEARCH ENGINEER.POLISHING MACHINE TENDER [address] [place] [address] [phone] Tack Driller Family Medicine 05/12/24 07/06/24 Diane Purvis, CHEMICAL RESEARCH ENGINEER.POLISHING MACHINE TENDER [address] [place] [address] [phone] Tack Driller Family Medicine 07/31/24 Everett Arteaga [facility] [address] [place] [address] Transitional Care Pharmacist Pharmacy 09/11/24 10/10/24 Rebecca Atkinson, RN [address] [place] [address] Primary Care Medical Affairs Leader 09/11/24 10/10/24 Casing Operator Relationship Specialty Start Date End Date Lenin Chaudhary MD [address] [place] [address] PCP - General Family Medicine 06/05/16 PodlogarJuly APRN.POLISHING MACHINE TENDER [address] [place] [address] Tack Driller Family Medicine 01/26/24 Dhara Gill MD [address] [place] [address] [place] [address] Cardiology 04/07/24 Diane Purvis APRN.POLISHING MACHINE TENDER [address] [place] [address] Tack Driller Family Medicine 07/31/24 Casing Operator Relationship Specialty Start Date End Date Lenin Chaudhary MD [address] [place] [address] PCP - General Family Medicine 06/05/16 PodlogarJuly APRN.POLISHING MACHINE TENDER [address] [place] [address] Tack Driller Family Medicine 01/26/24 Dhara Gill MD [address] [place] [address] [place] [address] Cardiology 04/07/24 Diane Purvis APRN.POLISHING MACHINE TENDER [facility] [place] [address] Tack Driller Family Medicine 07/31/24 Goals (unrecognized section and content) Goals may be documented in a n alternate section No data available for this section No data available for this section No data available for this sectionGoals may be documented in an alternate section No data available for this section No data available for this section Scheduled Active and Recently Administ ered Medications (unrecognized section and content) Medication Order 06/16/2023 06/17/2023 06/18/2023 amLODIPine (Norvasc) tablet 2.5 mg 2.5 mg, Oral, Daily, First dose on Sun06/13/23 at 1030 0916 (Given - Provider: Herson Horne RN) 0833 (Given - Provider: Herson Horne RN) 0859 (Given - Provider: Ondina Bergman LPN) atorvastatin (Lipitor) tablet 20 mg 20 mg, Oral, Nightly, First dose on Sun06/13/23 at 2100 2159 (Given - Provider: Amalia Castaneda RN) 2011 (Given - Provider: Amalia Castaneda RN) ceFAZolin (Ancef) 1,000 mg in sodium chloride 0.9 % 50 mL IVPB 1,000 mg, IntraVENous, at 100 mL/hr, Administer over 30 Minutes, Every 8 hours, First dose on Violet 06/14/23 at 1400, Mini-Bag Plus bag, Suspected Indication (Select all that apply): Urinary Tract Infection 0611 (New Bag - Provider: Amber Butts RN)0641 (Stopped - Provider: Amber Butts RN)1459 (New Bag - Provider: Herson Horne RN)1529 (Stopped - Provider: Herson Honre RN)2159 (New Bag - Provider: Amalia Castaneda RN)2229 (Stopped - Provider: Amalia Castaneda RN) 0622 (New Bag - Provider: Amalia Castaneda RN)0652 (Stopped - Provider: Herson Horne RN)1340 (New Bag - Provider: Herson Horne RN)1410 (Stopped - Provider: Herson Horne RN)2251 (New Bag - Provider: Amalia Castaneda RN)2321 (Stopped - Provider: Amalia Castaneda RN) 0608 (New Bag - Provider: Amalia Castaneda RN)0638 (Stopped - Provider: Amalia Castaneda RN)1400 (Not Given - Provider: Ondina Bergman LPN - Reason: Loss of IV access) cyanocobalamin (Vitamin B-12) tablet 1,000 mcg 1,000 mcg, Oral, Daily, First dose on Sun06/14/23 at 0900 0916 (Given - Provider: Herson Horne RN) 0833 (Given - Provider: Hesron Horne RN) 0859 (Given - Provider: Ondina Bergman LPN) docusate sodium (Colace) capsule 100 mg (CANCELED) 100 mg, Oral, 2 times daily, First dose on Sun06/13/23 at 1030 0916 (Given - Provider: Herson Horne RN) ferrous sulfate tablet 325 mg 325 mg, Oral, Daily with breakfast, First dose on Sun06/14/23 at 0800 0916 (Given - Provider: Herson Horne RN) 0833 (Given - Provider: Herson Horne RN) 0859 (Given - Provider: Ondina Bergman LPN) latanoprost (Xalatan) 0.005 % ophthalmic solution 1 drop 1 drop, Both Eyes, Nightly, First dose on 06/16/23 at 2100 2100 (Not Given - Provider: Amalia Castaneda RN - Reason: Medication not available) 2011 (Given - Provider: Amalia Castaneda RN) pantoprazole (ProtoNix) EC tablet 40 mg 40 mg, Oral, 2 times daily before meals, First dose on Sun06/15/23 at 1600, Do not crush, chew, or split. 0611 (Given - Provider: Amber Butts RN)1757 (Given - Provider: Herson Horne RN) 0622 (Given - Provider: Amalia Castaneda RN)1613 (Given - Provider: Herson Horne RN) 0608 (Given - Provider: Amalia Castaneda RN)1600 (Not Given - Provider: Ondina Bergman LPN - Reason: Patient/family refused) senna-docusate sodium (Senokot-S) 8.6-50 MG tablet 2 tablet 2 tablet, Oral, 2 times daily, First dose on 06/16/23 at 0945 1124 (Given - Provider: Herson Horne RN)2159 (Given - Provider: Amalia Castaneda RN) 0832 (Given - Provider: Herson Horne RN)2011 (Given - Provider: Amalia Castaneda RN) 0859 (Given - Provider: Ondina Bergman LPN) tamsulosin (Flomax) 24 hr capsule 0.4 mg 0.4 mg, Oral, Daily, First dose on Sun06/13/23 at 1030, Do not crush, chew, or split. 0916 (Given - Provider: Herson Horne RN) 0833 (Given - Provider: Herson Horne RN) 0859 (Given - Provider: Ondina Bergman LPN) PRN Medication Order 06/16/2023 06/17/2023 06/18/2023 acetaminophen (Tylenol) suppository 650 mg(Linked Group 1) 650 mg, Rectal, Every 6 hours PRN, mild pain (1-3), fever, For temp greater than 100.4 F (38 C), Starting on Sun06/12/23 at 2222, Administer if oral route cannot be used. Maximum dose of acetaminophen is 4000 mg from all sources in 24 hours. acetaminophen (Tylenol) tablet 650 mg(Linked Group 1) 650 mg, Oral, Every 6 hours PRN, mild pain (1-3), fever, For temp greater than 100.4 F (38 C), Starting on Sun06/12/23 at 2222, Maximum dose of acetaminophen is 4000 mg from all sources in 24 hours. melatonin tablet 3 mg 3 mg, Oral, Nightly PRN, sleep, Starting on Sun06/13/23 at 1209 ondansetron (Zofran) injection 4 mg(Linked Group 2) 4 mg, IntraVENous, Every 6 hours PRN, nausea, vomiting, Starting on Sun06/12/23 at 2222, 1st Line. Give IV if patient is unable to take orally. If inadequate response within 60 minutes, proceed to next-line agent or contact provider if no further options ordered. ondansetron ODT (Zofran-ODT) disintegrating tablet 4 mg(Linked Group 2) 4 mg, Oral, Every 8 hours PRN, nausea, vomiting, Starting on Sun06/12/23 at 2222, 1st Line. If inadequate response within 60 minutes, proceed to next-line agent or contact provider if no further options ordered. Patient should allow tablet to dissolve on tongue. Do not remove from blister pack until just before administering. polyethylene glycol (PEG) 3350 (Miralax) packet 17 g 17 g, Oral, Daily PRN, constipation, Starting on Sun06/12/23 at 2222, 1st line for treatment of constipation - give scheduled if no bowel movement in past 24 hours. 0844 (Given - Provider: Marcelino Horne RN) sodium chloride 0.9 % infusion 250 mL/hr, IntraVENous, Administer over 10 Minutes, As needed, For use in priming line prior to transfusion (prime via gravity) and flush line post transfusion, Starting on Sun06/12/23 at 2028, For 1 dose, For use in priming line prior to transfusion (prime via gravity) and flush line post transfusion ONLY. Discontinue once line has been cleared of remaining blood product. Linked Groups Order Group 1: acetaminophen (Tylenol) tablet 650 mgJump to med 650 mg, Oral, Every 6 hours PRN, mild pain (1-3), fever, For temp greater than 100.4 F (38 C), Starting on Sun06/12/23 at 2222, Maximum dose of acetaminophen is 4000 mg from all sources in 24 hours. Or acetaminophen (Tylenol) suppository 650 mgJump to med 650 mg, Rectal, Every 6 hours PRN, mild pain (1-3), fever, For temp greater than 100.4 F (38 C), Starting on Sun06/12/23 at 2222, Administer if oral route cannot be used. Maximum dose of acetaminophen is 4000 mg from all sources in 24 hours. Group 2: ondansetron ODT (Zofran-ODT) disintegrating tablet 4 mgJump to med 4 mg, Oral, Every 8 hours PRN, nausea, vomiting, Starting on Sun06/12/23 at 2222, 1st Line. If inadequate response within 60 minutes, proceed to next-line agent or contact provider if no further options ordered. Patient should allow tablet to dissolve on tongue. Do not remove from blister pack until just before administering. Or ondansetron (Zofran) injection 4 mgJump to med 4 mg, IntraVENous, Every 6 hours PRN, nausea, vomiting, Starting on Sun06/12/23 at 2222, 1st Line. Give IV if patient is unable to take orally. If inadequate response within 60 minutes, proceed to next-line agent or contact provider if no further options ordered. (unrecognized sect ion and content) No Status Records FoundNo Status Records FoundNo Status Records FoundNo Status Records FoundNo Status Records FoundNo Status Records FoundNo Status Records FoundNo Status Records FoundNo Status Records Found INFORMATION SOURCE (unrecogn ized section and content) DATE CREATED AUTHOR 06/27/2023 [facility] DATE CREATED AUTHOR AUTHOR'S ORGANIZ ATION 08/16/2023 [facility] ([place]) DATE CREATED AUTHOR AUTHOR'S ORGANIZ ATION 03/27/2024 [facility] DATE CREATED AUTHOR AUTHOR'S ORGANIZ ATION 09/15/2024 [facility] DATE CREATED AUTHOR AUTHOR'S ORGANIZ ATION 09/20/2024 [facility] DATE CREATED AUTHOR AUTHOR'S ORGANIZ ATION 12/25/2024 [facility] DATE CREATED AUTHOR AUTHOR'S ORGANIZ ATION 12/27/2024 [facility] nt DATE CREATED AUTHOR AUTHOR'S ORGANIZ ATION 12/28/2024 [facility] DATE CREATED AUTHOR AUTHOR'S ORGANIZ ATION 01/01/2025 [facility] FOR RECORDS PERTAINING TO PATIENTS WHO ARE OR HAVE BEEN ENROLLED IN A CHEMICAL DEPENDENCY/SUBSTANCEABUSE PROGRAM, SOME INFORMATION MAY BE OMITTED. This clinical summary was aggregated from multiple sources. Caution should be exercised in using it in the provision of clinical care. This summary normalizes information from multiple sources, and as a consequence, information in this document may materially change the coding, format and clinical context of patient data. In addition, data may be omitted in some cases. CLINICAL DECISIONS SHOULD BE BASED ON THE PRIMARY CLINICAL RECORDS. [employer] provides no warranty or guarantee of the accuracy or completeness of information in this document.
--- NOTE | 2025-01-26 07:09 | RAD_ITS ---
PROCEDURE: HIP 1 VIEW WITH PELVIS 01/26/2025 REASON FOR EXAM: ERAS, ANTERIOR RIGHT TOTAL HIP ARTHROPLASTY TECHNIQUE: Procedure Code: RADHPINP Modality: DX Procedure: HIP 1 VIEW WITH PELVIS Right hip COMPARISON: None FINDINGS: Fluoro was provided. 8.5 seconds, 1.08 mGy, 4 images RAD/Hip 1 view with Pelvis IMPRESSION: Fluoro was provided. [place] Location: [facility]
--- NOTE | 2025-01-26 07:13 | PCM.PRE.AN2 ---
ASA Classification* ASA Classification ASA Classification: 3 Assessment & Plan Anesthesia* Anesthesia Assessment Anesthesia Assessment: Discussed sedation and/or anesthesia options, risks, benefits, and alternatives with patient/parents/legal guardian/POA. Questions invited. The patient/parents/legal guardian/POA seems to understand and agrees to proceed with anesthesia plan. Reviewed the physical assessment, medical history, allergy history and patient home medications list prior to surgery/procedure/anesthetic and documented any changes. Performed airway and anesthesia risk assessments. Anesthesia Type Anesthesia Type: Spinal Anesthesia Focused Assessment* Airway Assessment Mouth opens: >3 cm Mallampati Score: II Labs Anesthesia Preop lab: CBC WBC, (4.4-11.0) 8.1 K/mm3 09/07/23, 11:34 RBC, (4.6-6.2) 4.39 M/mm3 L 09/07/23, 11:34 Hgb, (13.0-16.5) 11.3 g/dL L 09/07/23, 11:34 Hct, (40-54) 36.2 % L 09/07/23, 11:34 Plt Count, (150-450) 255 K/mm3 09/07/23, 11:34 CHEMISTRY Potassium, (3.5-5.1) 4.0 mmol/L 03/31/24, 07:37 Sodium, (136-145) 145 mmol/L 03/31/24, 07:37 Magnesium, (1.5-2.2) 2.6 mg/dL H 01/20/25, 14:55 BUN, (7-18) 18 mg/dL 03/31/24, 07:37 Creatinine, (0.70-1.30) 0.92 mg/dL 03/31/24, 07:37 Glucose, (74-106) 107 mg/dL H 03/31/24, 07:37 COAG PT, (11.7-14.9) 13.8 SECONDS 12/13/23, 15:44 Pre-Assessment Diagnosis/Proposed Procedure Planned Operative Procedure(s): DIRECT ANTERIOR RIGHT TOTAL HIP ARTHROPLASTY Anesthesia History 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 When Was Last Pacemaker Check QUESTION #4 FULL TEXT: You/Your Family Experience fever (hyperthermia) with Anesthesia Last Oral Intake Last Oral intake: Last Oral Intake NPO since Meds taken in AM with sips of water? 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 Has anyone observed you stop No 01/01/25 08:28 breathing during sleep? STOP Results Negative 01/01/25 08:28 QUESTION #5 FULL TEXT : Do you snore loudly (louder than talking or can be heard through closed doors)? 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 Specify any problems Hx of Preganancy in last 3 N/A 01/01/25 08:28 Months Nurse Filling Out Transfusion DSCHRIBER 01/01/25 08:28 & Questions: Date: 01/01/25 01/01/25 08:28 Time: 08:32 01/01/25 08:28 Patient unable to answer at this time (ie. 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: /Reproductive Hx- men's and boys' clothing salesperson Hx Now No 01/01/25 08:28 Gestational Age (in weeks): EDC: Hx Hx Para Hx Section SAB No 01/01/25 08:28 Does the father of the baby or his family experience fever w Father of the baby Malignant Hypertension history comment Active Medications Active Medications: Current Medications Generic Name Dose Route Start Last Admin Trade Name Freq PRN Reason Stop Dose Admin Acetaminophen 1,000 mg 01/26/25 08:45 Acetaminophen 500 Mg Tablet PO 01/26/25 08:46 PREOP ONE Tranexamic Acid 2,000 mg/ 0 mg 01/26/25 08:45 Sodium Chloride 100 ml OPERA.SITE 01/26/25 08:46 X1 ONE Sodium Chloride 77.9 ml/ 0 ml 01/26/25 08:45 Ropivacaine 200 mg/ OPERA.SITE 01/26/25 08:46 Epinephrine HCl 0.6 mg/ INTRAOP ONE Ketorolac Tromethamine 30 mg/ Morphine Sulfate 5 mg Dexamethasone Sodium Phosphate 10 mg 01/26/25 08:45 Dexamethasone 10 Mg/Ml Vial IV 01/26/25 08:46 INTRAOP ONE Gabapentin 600 mg 01/26/25 08:45 Gabapentin 600 Mg Tablet PO 01/26/25 08:46 PREOP ONE Lactated Ringer's 1,000 mls @ 999 mls/hr 12/08/25 08:45 IV 01/26/25 09:45 .Q1H1M SONIDO Cefazolin Sodium 2 gm/ Sodium 110 mls @ 150 mls/hr 01/26/25 08:45 Chloride IV 01/26/25 09:28 INTRAOP ONE Lactated Ringer's 1,000 mls @ 999 mls/hr 01/26/25 09:45 IV 01/26/25 10:45 .Q1H1M SONIDO Lactated Ringer's 1,000 mls @ 125 mls/hr 01/26/25 10:45 IV 01/26/25 18:44 .Q8H SONIDO Lactated Ringer's 1,000 mls @ 15 mls/hr 01/26/25 07:00 IV .Q48H SONIDO Insulin Human Lispro 1 - 6 unit 01/26/25 08:45 Insulin Lispro 100 Unit/Ml Insuln.Pen SC 01/26/25 14:45 Q4H PRN PRN BG>/= 180, SEE PROTOCOL Protocol PFSH Medical History History of IBS History of GI bleed Sleep apnea History of edema History of CHF (congestive heart failure) History of echocardiogram History of stress test Cardiology follow-up encounter Lives in assisted living facility Wears glasses Anxiety Alcohol use History of renal disease Arthritis Anemia Syncope History of ulceration Non-smoker History of pain when walking Dementia Colon polyps Macular degeneration Hypertension Hyperlipidemia BPH (benign prostatic hyperplasia) Home Medications ?Medication ?Instructions ?Recorded ?Last Taken ?Type donepezil 5 mg tablet 10 mg PO DAILY 06/04/23 03/30/24 History fluticasone propionate 50 2 spray intranasal DAILY PRN PRN 09/28/23 Unknown History mcg/actuation nasal nasal congestion spray,suspension acetaminophen 500 mg capsule 1,000 mg PO Q8H PRN PRN pain 03/27/24 03/30/24 History ascorbic acid (vitamin C) 500 mg 500 mg PO DAILY 03/27/24 03/30/24 History tablet (Vitamin C) aspirin 81 mg capsule 81 mg PO DAILY 03/27/24 03/30/24 History atorvastatin 40 mg tablet 80 mg PO DAILY 03/27/24 03/30/24 History cholecalciferol (vitamin D3) 25 25 mcg PO DAILY 03/27/24 03/30/24 History mcg (1,000 unit) capsule (Vitamin D3) cyanocobalamin (vitamin B-12) 1,000 mcg PO DAILY 03/27/24 03/30/24 History 1,000 mcg tablet furosemide 40 mg tablet (Lasix) 20 mg PO .QD PRN edema 03/27/24 03/30/24 History magnesium 200 mg tablet 400 mg PO DAILY 03/27/24 03/30/24 History metoprolol succinate 25 mg 12.5 mg PO BID 03/27/24 03/30/24 History tablet,extended release 24 hr potassium chloride 20 mEq oral 20 meq PO DAILY PRN WITH USE OF 03/27/24 03/30/24 History packet (Klor-Con) LASIX sennosides 8.6 mg-docusate sodium 1 tab-cap PO QHS 03/27/24 03/30/24 History 50 mg tablet (Senna Plus) tamsulosin 0.4 mg capsule 0.4 mg PO BID 03/27/24 03/30/24 History pantoprazole 40 mg tablet,delayed 40 mg PO DAILY #30 tabs 09/12/24 Unknown Rx release (Protonix) L.acidophilus-B.animalis-B.longum 1 cap PO DAILY 01/01/25 Unknown History 15 billion cell capsule (Florajen Digestion) brimonidine 0.2 % eye drops 1 drp ophthalmic (eye) BID 01/01/25 Unknown History casanthranol-docusate sodium 30 1 cap PO DAILY 01/01/25 Unknown History mg-100 mg capsule cholecalciferol (vitamin D3) 25 25 mcg PO DAILY 01/01/25 Unknown History mcg (1,000 unit) capsule (Vitamin D3) ferrous sulfate 325 mg (65 mg 325 mg PO DAILY 01/01/25 Unknown History iron) tablet (FeroSul) folic acid 1 mg tablet 1 mg PO DAILY 01/01/25 Unknown History latanoprost 0.005 % eye drops 1 drp ophthalmic (eye) QHS 01/01/25 Unknown History melatonin 3 mg capsule 3 mg PO QHS PRN sleep 01/01/25 Unknown History memantine 5 mg tablet 5 mg PO DAILY 01/01/25 Unknown History polyethylene glycol 3350 17 17 g PO DAILY 01/01/25 Unknown History gram/dose oral powder (Miralax) vit C 250 mg-vit E 90 mg-zinc 40 1 tab PO BID 01/01/25 Unknown History mg-copper 1 gp-[id number]-[id number] capsule (PreserVision AREDS-2) Allergy/AdvReac Type Severity Reaction Status Date / Time No Known Allergies Allergy Verified 01/01/25 08:45 Family History Other CVA (cerebral vascular accident) Surgical History Hx of colonoscopy Hx of rhinoplasty History of carpal tunnel surgery of right wrist History of carpal tunnel surgery of left wrist Hx of arthroscopic knee surgery Hx of microdiscectomy History of heart surgery Hx of inguinal hernia repair Hx of sinus surgery Hx of esophagogastroduodenoscopy Social History Smoking Status: Never smoker Review of Systems (Anesthesia) ROS Narrative System reviewed and no additional complaints, except as documented.
[2025-01-26] MEDS: LR 1,000 ML - BOLUS PREOP 999 ML IV (07:36)
--- NOTE | 2025-01-26 07:45 | RAD_ITS ---
PROCEDURE: HIP MIN 2 VIEWS (PORTABLE) 01/26/2025 REASON FOR EXAM: POST OP Total hip replacement. TECHNIQUE: Procedure Code: RADH_P Modality: DX Procedure: HIP MIN 2 VIEWS (PORTABLE) Laterality: Right hip. COMPARISON: None FINDINGS: The patient is status post right total hip replacement. There is good alignment. Postoperative soft tissue changes. RAD/Hip Min 2 Views (Portable) IMPRESSION: Status post right total hip replacement. There is good alignment. Postoperative soft tissue changes. Reading Location: [place] [id number]
[2025-01-26] MEDS: Cefazolin 1 GM/5 ML Vial 2 GM IV (08:30)
[2025-01-26] MEDS: JPS (Morphine 10mg/ml) OPERA.SITE (09:35)
[2025-01-26] MEDS: TXA 2000mg in NS 100ml (Placed in Wound) OPERA.SITE (09:36)
--- NOTE | 2025-01-26 09:57 | PCM.OPRPT ---
Operative Report (Standard) Operative Information Date of Procedure: 01/26/25 Pre-Operative Diagnosis: Right hip primary osteoarthritis Post-Operative Diagnosis: Right hip primary osteoarthritis Surgery/Procedure Performed: Right minimally invasive direct anterior total replacement juvenile justice specialist: Yes Call Center Support Consultant: Kelli Harp Tasks completed by first leveler: Other (See body of operative report) Additional rehabilitation assistant?: Yes Additional Professional Tutor #2: Red Oropeza Tasks completed by rehabilitation assistant #2: Opening, Closing, Retracting and Other (Dislocation and reduction of the hip) Additional rehabilitation assistant?: No Type of Anesthesia: Spinal RN Documented Start/Stop Times: Operation Date: 01/26/25 08:45 Case Time Into Pre-Op 01/26/25 06:47 Anesthesia Start 01/26/25 08:24 Into Room 01/26/25 08:24 Procedure Start 01/26/25 08:54 Procedure End 01/26/25 10:19 Anesthesia End 01/26/25 10:24 Out of Room 01/26/25 10:24 Into Recovery 01/26/25 10:27 Out of Recovery 01/26/25 11:31 Procedure Start Time: 08:54 Procedure Stop Time: 10:19 Select all DRAINS/GRAFTS/IMPLANTS that apply: Prosthetic device Prosthetic device details: See body of operative report Special Medications: 2 g Ancef, 1 g TXA at incision, 1 g TXA closure, 10 mg Decadron, joint cocktail (5 mg Duramorph, 30 mL of 0.5% Ropivicaine, 1000 units of epinephrine, 30 mg of Toradol) Estimated Blood Loss: 300 mL Fluids Replaced: 1300 mL crystalloid Specimen collected: Yes Description of specimen(s) removed: Bony cuts Description of surgery: Components used: 1. Insignia Rand femoral stem size 6 high off 2. Rand trident 2 acetabular shell size 58 mm 3. [place] X3 polyethylene F 4. Rand Biolox delta 36mm, 2.5mm femoral head Brief history operative indications: 79 yo M who failed conservative measures for their hip osteoarthritis. X-rays were consistent with osteoarthritis including joint space narrowing, osteophyte formation and subchondral cysts. Total hip replacement was discussed with the patient with risks and benefits including but not limited to blood loss, DVTs, PEs, neurovascular damage, dislocation, general risks of anesthesia including loss of life. Patient demonstrated an understanding medical clearance is obtained the patient was consented for surgery. Procedure: On the date of procedure the patient's R hip was marked in the preoperative area. Patient was then taken back to the operating room where anesthesia assumed control of the C-spine and airway and administered anesthetic. Patient was transferred to the operating table and placed in the supine position. The hips were placed at the break of the bed and a sacral bump was placed. The R lower extremity was then prepped out in a sterile fashion using chlorhexidine while the surgeon scrubbed. The PA was vital in the positioning of the patient. Upon reentering the room the R lower extremity was draped in the standard orthopedic fashion and the incision was marked. A timeout was called and everyone agreed upon the side, the site, the procedure be performed, antibody given, and patient's identity. At this time incision was made through skin, subcutaneous tissue, and fat down to fascia. The fascia was then incised and the TFL was retracted laterally. A retractor was placed on the lateral border of the femoral neck. Attention was directed to the inferior portion of the approach and all crossing vessels were identified and appropriately coagulated. A retractor was then placed on the medial portion of the femoral neck. The anterior capsule was then cleared of all soft tissue and then H shaped capsulotomy was made. The retractors were then placed inside the capsule. The femoral neck was identified and a cleanup cut was made. At this time a power corkscrew was used to remove the femoral head. Attention was then turned toward the acetabulum where the soft tissues were appropriately retracted and the acetabulum was sequentially reamed to 58 mm. A 58 mm cup was then selected and impacted into place. Acetabular liner was impacted into place and locking mechanism was verified. The position of the acetabular cup was then verified under live fluoroscopy. Attention was then turned to the femur. Soft tissue releases on the medial and lateral femoral neck were appropriately done, the leg was externally rotated and lateralized. A Marquez retractor was placed medially and proximally to the greater trochanter this allowed appropriate visualization and exposure of the femoral canal. Rongeour was then used to remove excess lateral bone. A canal finder and entry broach were used to open the proximal canal. Once we verified we were down the femoral canal we subsequently broached up to a size 6 femur. The appropriate neck was placed in the previously selected head was trialed with a 2.5 mm neck. Traction was pulled and the hip was reduced with internal rotation. Once it was appropriately reduced and stability was checked. There was minimal shuck, equal leg lengths and appropriate stability with hyperextension and external rotation as well as with 90? flexion and internal rotation. Fluoroscopy was then also used to verify the position of the components and leg lengths using the contralateral side for comparison. The trial components were then dislocated the proximal femur was again exposed and the components were removed from the wound. The final components were verified and opened. The wound was copiously irrigated out with normal saline. The acetabulum was checked for any residual debris. The final components were placed and impacted. Traction and internal rotation were again used to reduce the hip. After adequate reduction the hip remained stable with appropriate leg lengths. The final components were once again checked with live fluoroscopy and were found to be satisfactory. The wound was then copiously irrigated with normal saline once more, and hemostasis was obtained. Closure was then done using #1 Vicryl runner to close the fascia. A 2-0 vicryl interuppted sutures were used to close the subcutaneous skin. A 3-0 Monocryl and Steri-Strips were used for final skin closure. A Silverlon dressing was placed. Patient was awakened by anesthesia and transferred to the [facility]. Patient was then transferred to the PACU for recovery. Postoperative plan: Patient will get 24 hours postop antibiotics. Patient will get in-house physical therapy and will be weight-bear as tolerated. Patient will follow up in office in 2 weeks for a wound check and x-rays. Aspirin 81 mg twice daily. During the course of the procedure the physician python engineer (PE) played a vital role. Their intimate knowledge of my steps in the procedure aided in safe and expedient completion of the procedure. The PE played a vital rolls in positioning particularly in obtaining the appropriate positioning of the sacral bump. The PE was also vital in the retraction of soft tissues during the exposure and especially the femoral work as this is a vital part of the procedure to prevent complications and fractures. The PE was also vital and protecting soft tissues during times of bony cuts and reaming. He also played a vital role in closure with my direct supervision. The PE was also important during reduction and dislocation of the joint and trials intraoperatively. Surgical Findings: Stable hip with equal leg lengths Complications Complications: No Admit VTE Documentation VTE Present on Admission: Yes VTE Mechan Device Prophylaxis: SCD's and Thigh High BOB Qureshi VTE Pharm Prophylaxis ordered?: Yes
[2025-01-26] MEDS: LR 1,000 ML - BOLUS POSTOP 999 ML IV (10:25)
--- NOTE | 2025-01-26 10:32 | PCM.POST.ANE ---
Anesthesia: Postop Eval I Current Vital Signs Temperature: 98.1 F Pulse Rate: 70 Blood Pressure: 130/78 Respiratory Rate: 16 Pulse Ox: 98 Oxygen Delivery Method: Room Air Assessment Airway patent: Yes Spontaneous unlabored respirations: Yes Mental status: Awake and Calm nausea: No Vomiting: No Anesthesia Complication: No Fluid Hydration Crystalloid volume administer (ml): 1,300 Total IV fluid infused: 1,300 Progress Note Anesthesia document: Postop Eval 1 completed: Yes
--- NOTE | 2025-01-26 10:49 | POSTOPAN2_ITS ---
Anesthesia Postop Eval I Sum Postop Eval Completion status Anesthesia document: Postop Eval 1 completed: Yes Anesthesia Postop Eval I Summary Anesthesia Postop Eval I Summary: Anesthesia Postop Eval I: Assessment Summary Airway patent Yes 01/26/25 10:33 [email or web address] Spontaneous unlabored Yes 01/26/25 10:33 PROGRAMMING [email or web address] respirations Mental status Awake,Calm 01/26/25 10:33 [email or web address] [email or web address] nausea No 01/26/25 10:33 PROGRAMMING INTERN.NFOR Vomiting No 01/26/25 10:33 PROGRAMMING [email or web address] Anesthesia Postop Eval I: Fluid Summary Crystalloid volume administer 1,300 01/26/25 10:33 PROGRAMMING INTERN.NFOR (ml) Colloids volume administered ( ml) Blood Product volume administered (ml) Total IV fluid infused 1,300 01/26/25 10:35 PROGRAMMING [email or web address] Anesthesia Postop Eval I: Summary Notes Anesthesia Complication No 01/26/25 10:33 PROGRAMMING [email or web address] Anesthesia Complication Comment: Post-operative progress note Anesthesia: Postop Eval II Evaluation Mental status: Awake Pain Level: 1 nausea: No Vomiting: No
--- NOTE | 2025-01-26 10:49 | PCM.POSTANE2 ---
Anesthesia Postop Eval I Sum Postop Eval Completion status Anesthesia document: Postop Eval 1 completed: Yes Anesthesia Postop Eval I Summary Anesthesia Postop Eval I Summary: Anesthesia Postop Eval I: Assessment Summary Airway patent Yes 01/26/25 10:33 [email or web address] Spontaneous unlabored Yes 01/26/25 10:33 [email or web address] respirations Mental status Awake,Calm 01/26/25 10:33 [email or web address] nausea No 01/26/25 10:33 CAR [email or web address] Vomiting No 01/26/25 10:33 CAR [email or web address] Anesthesia Postop Eval I: Fluid Summary Crystalloid volume administer 1,300 01/26/25 10:33 CAR [email or web address] (ml) Colloids volume administered ( ml) Blood Product volume administered (ml) Total IV fluid infused 1,300 01/26/25 10:35 CAR [email or web address] Anesthesia Postop Eval I: Summary Notes Anesthesia Complication No 01/26/25 10:33 CAR [email or web address] Anesthesia Complication Comment: Post-operative progress note Anesthesia: Postop Eval II Evaluation Mental status: Awake Pain Level: 1 nausea: No Vomiting: No
[2025-01-26] MEDS: LR 1,000 ML - 125 ML/HR (POST BOLUS) POST OP IV (11:23)
--- NOTE | 2025-01-26 11:48 | PCM.PN.HOSP ---
Subjective Subjective 79-year-old male presents for an elective right hip replacement for osteoarthritis. Doing well postoperatively pain is controlled Objective Data Objective Data Vital Signs: Vital Signs Temp Pulse Resp BP Pulse Ox O2 Del Method O2 Flow Rate 97.0 F L 60 18 148/84 H 100 Nasal Cannula 4 01/26/25 11:15 01/26/25 11:15 01/26/25 11:15 01/26/25 11:15 01/26/25 11:15 01/26/25 11:15 01/26/25 11:15 Oxygen Flow Rate (L/min) 4 Oxygen Delivery Method Nasal Cannula Weight: 192 lb 3.889 oz Body Mass Index (BMI) 26.8 Intake & Output: Intake and Output for Last 24 Hours 01/25/25 01/26/25 01/27/25 03:59 03:59 03:59 Intake Total 1999 / 1999 Output Total 300 / 300 Balance 1700 / 1700 Lab / Micro Data 01/27/25 05:23 01/27/25 05:23 Labs: Laboratory Results - last 24 hr 01/26/25 07:16: POC Glucose 97 Micro: Microbiology 01/20/25 14:55 Swab (Method) Nasal Screen MRSA/MSSA - Final Radiography Diagnostic Testing: Radiology Impression Hip/Pelvis X-Ray 01/26/25 07:09 IMPRESSION: Fluoro was provided. Reading Location: [facility] Hip X-Ray 01/26/25 07:45 IMPRESSION: Status post right total hip replacement. There is good alignment. Postoperative soft tissue changes. Reading Location: [facility] Physical Exam Narrative General: Alert, Oriented x3, Cooperative, No apparent distress HEENT: Atraumatic, PERRLA, EOMI, Normocephalic Oral: Moist Mucosa Neck: Supple, No JVD Lungs: Diminished, Normal air movement, No rhonchi, No wheeze, No rales Cardiovascular: Regular rate, Regular Rhythm, Normal S1, Normal S2, No murmurs Abdomen: Soft, Non Tender, Non-Distended, No Hepato-splenomegaly Extremities: No edema, Capillary Refill Less than 3 Seconds Skin: No rashes, No breakdown Musculoskeletal: No Tenderness to Palpation of Joints or Extremities Neurological: No focal neurological deficits, moves all extremities Psych/Mental Status: Normal Affect, Appropriate Assessment & Plan Assessment/Plan (1) Status post right hip replacement: PLAN: Plan 1. Status post right total hip replacement on 01/26/2025 ? PT/OT ? Pain management per primary ? Can resume his home medications and will monitor labs in the morning 2. Essential HTN/HLD ? Continue with his home blood pressure medications ? Hold his Lasix ? Continue with his statin 3. Glaucoma ? Stable ? Continue with his eyedrops 4. Iron deficiency anemia ? Stable ? Continue with his iron replacement 5. Dementia ? Stable ? Continue with his home medications 6. GERD ? Stable ? Continue with PPI 7. BPH with obstruction ? Stable ? Continue with his home medications DVT: Per primary Charges/Coding Visit Charges Office Visits / Consults: [id number] OV L3 New 30min
[2025-01-26] MEDS: Ensure Surgery 237 ML LIQUID PO ×2 (12:47→15:58)
--- NOTE | 2025-01-26 15:48 | CASEMGMT ---
Addendum entered by Beverly Joseph 01/26/25 15:58: KATELYN WIN into pt room, pt provided list of SNF's that dc automobile mechanic assistant created. Pt and family to review. KATELYN WIN to check back with pt and family tomorrow. Pt and family deny any further questions. Original Note: Spoke with PT and OT who eval'd pt, states [place] is [place] [facility] and would benefit from either inpatient rehab unit vs SNF. KATELYN WIN into pt room, pt sitting up in chair with 2 sons in room (one of which is POA) , pt agreeable to discuss dc planning with family present. Pt states he felt therapy did well. Pt is from [facility], pt and family state they feel it would be beneficial for pt to go to rehab. They state the preference would be for patient to stay at [facility] [place] and they would like to look at a list of other options as well. Referral sent to Vanda in admissions to see if pt appropriate for TCU vs Inpatient Rehab.
--- NOTE | 2025-01-26 15:53 | CASEMGMT ---
Addendum entered by Arlyn Stanford 01/27/25 10:49: [facility] Bullock is also in network. Pt and his son updated. Arlyn Stanford DC Planning Asst. Original Note: Discharge Planning A list of?SNF providers including quality and resource use data and consistent with the patient's preferred geographic region, medical needs, and insurance network was created in CarePort Guide.? This list was provided to the RN CM. Arlyn Stanford, Discharge Planning Asst.
[2025-01-26] MEDS: Cefazolin 1 GM/50 ML BAG IV (15:55)
[2025-01-26] MEDS: BRIMONIDINE 0.2% 5ML BOTTLE 1 DRP OPHTHALMIC (22:21)
[2025-01-26] MEDS: Metoprolol(XL)Succ 25 MG Tablet 12.5 MG PO (22:22)
[2025-01-26] MEDS: Senna/Docusate Sodium 1 Tablet 2 TABLET PO (22:22)
[2025-01-26] MEDS: Latanoprost 0.005% 1 Bottle 1 DRP OPHTHALMIC (22:24)
[2025-01-27] VITALS (9 sets, daily range): BP systolic 90–161; BP diastolic 54–87; PULSE 64–73; RESP 16; TEMP 36.8–37.2; O2SAT 94–98
[2025-01-27] MEDS: Cefazolin 1 GM/50 ML BAG IV (00:25)
[2025-01-27 06:12] LABS: Hematocrit 32.1 % (40-54); Hemoglobin 10.9 g/dL (13.0-16.5); Immature Granulocytes Count 0.020 X10^3/uL (0.0-0.0); Mean Corp Hgb Conc 34.0 g/dL (32-36); Mean Corpuscular Volume 82.7 fL (80-94); Mean Platelet Vol. 11.3 fl (6.2-12.0); NRBC Flagged by Analyzer 0 % (0-5); Platelet Count 156 K/mm3 (150-450); RBC Distribution Width CV 16.1 % (11.6-14.6); RBC Distribution Width SD 48.7 fl (35.1-43.9); Red Blood Count 3.88 M/mm3 (4.6-6.2); White Blood Count 7.8 K/mm3 (4.4-11.0)
[2025-01-27 06:42] LABS: Anion Gap 11 (5-15); BUN 15 mg/dL (4-19); BUN/Creat Ratio 17.4 RATIO (10-20); Calcium,Total 8.5 mg/dL (7.6-11.0); Carbon Dioxide 24.0 mmol/L (21.0-32.0); Chloride 105 mmol/L (98-108); Estimated Creatinine Clearance 78.44 ml/min (50-250); Glucose 112 mg/dL (70-99); Potassium 4.2 mmol/L (3.3-5.1)
[2025-01-27] MEDS: Metoprolol(XL)Succ 25 MG Tablet 12.5 MG PO ×2 (07:48→22:09)
[2025-01-27] MEDS: BRIMONIDINE 0.2% 5ML BOTTLE 1 DRP OPHTHALMIC ×2 (07:48→22:30)
[2025-01-27] MEDS: Polyethylene Glycol 3350 17 GM PACKET PO (07:50)
[2025-01-27] MEDS: Memantine Hydrochloride 5 MG Tablet PO (07:51)
[2025-01-27] MEDS: Senna/Docusate Sodium 1 Tablet 2 TABLET PO ×2 (07:51→22:09)
[2025-01-27] MEDS: Ensure Surgery 237 ML LIQUID PO ×3 (07:53→17:42)
--- NOTE | 2025-01-27 08:54 | PN.ORTHO_ITS ---
Subjective Subjective Patient sitting comfortably in bed upon examination. Patient is a poor historian and is slightly confused today. Patient and his family are looking at potential placement into a rehab facility or TCU at this point. Patient states that his pain is adequately controlled at this time. Patient denies any new shortness of breath, chest pain, calf pain. Patient denies any nausea, vomiting, dizziness. Patient denies any new numbness or tingling in the legs. Patient denies any adverse events overnight. Patient's nurse was concerned as patient was doing well yesterday and then patient struggled to even get to the bathroom and back to his bed. Objective Data Objective Data Vital Signs: Vital Signs Temp Pulse Resp BP Pulse Ox O2 Del Method O2 Flow Rate 98.4 F 73 16 154/75 H 94 Room Air 4 01/27/25 08:43 01/27/25 08:43 01/27/25 08:43 01/27/25 08:43 01/27/25 08:43 01/27/25 08:43 01/26/25 13:14 Oxygen Flow Rate (L/min) 4 Oxygen Delivery Method Room Air Weight: 87.2 kg Body Mass Index (BMI) 26.8 Intake & Output: Intake and Output for Last 24 Hours 01/25/25 01/26/25 01/27/25 23:59 23:59 23:59 Intake Total 3489.58 / 3489.58 50 / 50 Output Total 300 / 300 400 / 400 Balance 3189.58 / 3189.58 -350 / -350 Lab / Micro Data 01/27/25 05:23 01/27/25 05:23 Labs: Laboratory Results - last 24 hr 01/26/25 07:16: POC Glucose 97 01/27/25 05:23: WBC 7.8, RBC 3.88 L, Hgb 10.9 L, Hct 32.1 L, MCV 82.7, MCH 28.1, MCHC 34.0, RDW Std Deviation 48.7 H, RDW Coeff of Eugene 16.1 H, Plt Count 156, MPV 11.3, Immature Gran % (Auto) 0.300, Neut % (Auto) 74.5 H, Lymph % (Auto) 14.6 L, [place] % (Auto) 9.2, Eos % (Auto) 1.1, Baso % (Auto) 0.3, Absolute Neuts (auto) 5.8, Absolute Lymphs (auto) 1.14, Nucleated RBC % 0, Sodium 139, Potassium 4.2, Chloride 105, Carbon Dioxide 24.0, Anion Gap 11, BUN 15, Creatinine 0.84, Estim Creat Clear Calc 78.44, Est GFR (MDRD) Non-Af 90, BUN/Creatinine Ratio 17.4, G lucose 112 H, Calcium 8.5 Micro: Microbiology 01/20/25 14:55 Swab (Method) Nasal Screen MRSA/MSSA - Final Radiography Diagnostic Testing: Radiology Impression Hip/Pelvis X-Ray 01/26/25 07:09 IMPRESSION: Fluoro was provided. Reading Location: [facility] Hip X-Ray 01/26/25 07:45 IMPRESSION: Status post right total hip replacement. There is good alignment. Postoperative soft tissue changes. [facility] Physical Exam Narrative BOB hose in place bilaterally SCDs in place bilaterally Mepilex dressing is with a small quarter sized drainage in the middle one third of bloody fluid. Dorsiflexion and plantarflexion are performed actively without pain or restriction Sensation intact light touch. Neurovascularly intact overall. Negative Homans bilaterally. Const alert, oriented x3 and no apparent distress Assessment & Plan Assessment/Plan (1) Status post right hip replacement: PLAN: Status post right anterior total hip arthroplasty day 1. 1. DVT prophylaxis: Patient will be taking aspirin 81 mg twice daily for 4 weeks postoperatively. Patient denies any history of DVT or PE. Patient will be wearing BOB hose for 2 weeks postoperatively. We are going to avoid anti- inflammatory medications in this patient. 2. Pain medications: Patient will be taking Tylenol 1000 mg every 8 hours, oxycodone as needed for postoperative pain control. Will be avoiding any anti- inflammatory medications in this patient. 3. Physical therapy: Patient is continue to be weightbearing as tolerated with his walker. Patient was educated on anterior hip precautions in office today. Patient will need outpatient physical therapy established. 4. Constipation: Patient was instructed to take senna until her first bowel movement and then can decrease to as needed. Patient was educated they do not have a bowel movement within 3 days to contact our office. 5. H&H: 10.9/32.1. Vital signs are stable and patient is afebrile at this time. 6. Benign prostatic hyperplasia: Patient has urinated at this point. Patient is to continue with his Flomax. 8. Incentive spirometry: Patient was encouraged to use incentive spirometer every hour therapy for first week to exercise along decrease risk. Urinary infection. 9. Dressings: Patient was educated she will have waterproof dressing for 5 days. Patient was educated he can take it off on postop day 5 which is Sunday. Patient was educated she can leave open to air after this. 10. Patient is to follow-up for postoperative medication instructions. 11. Medicine is involved at this time for safe and proper discharge. 12. Disposition: We will plan to keep patient another in the hospital as he is having some mental status changes. Patient had trouble even walking to the bathroom today. Patient will need to work with physical therapy prior to going anywhere. Patient's family is looking at placement either in the rehab or TCU. We will plan to start working on this when patient is medically stable for discharge. Patient was encouraged to continue being weightbearing as tolerated with his walker. Patient was educated on anterior precautions. Will see how physical therapy goes and see where patient stands for discharge planning tomorrow. Case management is involved and working on safe and proper discharge planning at this point. Patient will continue to be followed by medicine. Patient was encouraged to call with any questions, concerns, new problems.
--- NOTE | 2025-01-27 10:48 | CASEMGMT ---
TARIQ Met with patient to complete TARIQ form. TARIQ form and its content were verbally explained and patient's questions were answered to the best of my ability.? Patient voiced understanding and signed TARIQ form.? Patient provided a copy of signed TARIQ form and original placed in patient's chart.? Patient had no further questions. Arlyn Stanford, Discharge Planning Asst
--- NOTE | 2025-01-27 11:14 | CASEMGMT ---
Discharge Planning Follow up with pt and his son for additional choices. New snf list provided for [facility] only. Patients choice if TCU cannot accept is [facility]. RN CM updated. Arlyn Stanford DC Planning Asst.
--- NOTE | 2025-01-27 12:51 | CASEMGMT ---
Pt son brought list to desk and 3rd choice is [facility]. RN AUDELIA made referral to [facility]. Pt is not medically ready at this time. Pending pt medical readiness tomorrow will determine if bed is available at [facility]. KATELYN WIN to follow tomorrow. Pt and sons are aware.
[2025-01-27] MEDS: Latanoprost 0.005% 1 Bottle 1 DRP OPHTHALMIC (22:07)
[2025-01-28 04:25] VITALS: BP 152/84; PULSE 60; RESP 16; TEMP 36.7; O2SAT 96
[2025-01-28] MEDS: Ensure Surgery 237 ML LIQUID PO ×2 (08:04→12:04)
[2025-01-28 08:05] VITALS: PULSE 64
[2025-01-28] MEDS: Metoprolol(XL)Succ 25 MG Tablet 12.5 MG PO ×2 (08:05→21:58)
[2025-01-28] MEDS: Senna/Docusate Sodium 1 Tablet 2 TABLET PO ×2 (08:06→21:57)
[2025-01-28] MEDS: Memantine Hydrochloride 5 MG Tablet PO (08:06)
[2025-01-28] MEDS: BRIMONIDINE 0.2% 5ML BOTTLE 1 DRP OPHTHALMIC ×2 (08:07→22:03)
[2025-01-28 08:35] VITALS: BP 156/83; PULSE 64; RESP 17; TEMP 36.7; O2SAT 97
--- NOTE | 2025-01-28 10:04 | CASEMGMT ---
Addendum entered by Beverly Joseph 01/28/25 15:46: [id number] CM into pt room, pt and son aware that pt has been accepted at [facility]CU and authorization for the stay has been started. Pt and son deny further needs at this time. Original Note: Spoke with Ortho who states pt is medically ready and precert can be started. TC to admissions at [facility], pt is accepted and precert will be started per Mary.
--- NOTE | 2025-01-28 10:37 | PCM.PN.ORT ---
Subjective Subjective The patient was sitting in bedside chair with family present upon examination. Patient denies any chest pain, shortness of breath, dizziness, lightheadedness, nausea or vomiting, or calf pain. Pain is controlled on medications. No adverse overnight events. Patient's pain is doing better today. Patient did much better today with physical therapy. Yesterday he did have some increased confusion. Family states that this is better today and much closer to baseline. Patient was alert and oriented x 3. The plan is for him to go to the transitional care unit and we will start approval process. Objective Data Objective Data Vital Signs: Vital Signs Temp Pulse Resp BP Pulse Ox O2 Del Method O2 Flow Rate 98.0 F 64 17 156/83 H 97 Room Air 4 01/28/25 08:35 01/28/25 08:35 01/28/25 08:35 01/28/25 08:35 01/28/25 08:35 01/28/25 08:35 01/26/25 13:14 Oxygen Flow Rate (L/min) 4 Oxygen Delivery Method Room Air Weight: 87.2 kg Body Mass Index (BMI) 26.8 Intake & Output: Intake and Output for Last 24 Hours 01/26/25 01/27/25 01/28/25 23:59 23:59 23:59 Intake Total 3489.58 / 3489.58 1050 / 1050 200 / 200 Output Total 300 / 300 600 / 600 Balance 3189.58 / 3189.58 450 / 450 200 / 200 Lab / Micro Data 01/27/25 05:23 01/27/25 05:23 Micro: Microbiology 01/20/25 14:55 Swab (Method) Nasal Screen MRSA/MSSA - Final Physical Exam Narrative Vital signs stable and afebrile. Right thigh is soft supple Patient is able to plantarflex and dorsiflex actively. Sensation is intact to light touch to saphenous, sural, superficial and deep peroneal, and tibial distribution. Dressing is intact to the skin with stable mild discharge quarter size. SCDs and BOB hose are in place bilaterally Negative Homans bilaterally, negative signs and symptoms of DVT. Const alert, oriented x3 and no apparent distress Assessment & Plan Assessment/Plan (1) Status post right hip replacement: PLAN: Status post right anterior total hip arthroplasty day 2. 1. DVT prophylaxis: Patient will be taking aspirin 81 mg twice daily for 4 weeks postoperatively. Patient denies any history of DVT or PE. Patient will be wearing BOB hose for 2 weeks postoperatively. We are going to avoid anti-inflammatory medications in this patient due to his cardiac history. 2. Pain medications: Patient will be taking Tylenol 1000 mg every 8 hours, oxycodone as needed for postoperative pain control. Will be avoiding any anti-inflammatory medications in this patient. 3. Physical therapy: Patient is continue to be weightbearing as tolerated with his walker. Patient was educated on anterior hip precautions in office today. Patient did much better today with physical therapy. 4. Constipation: Patient was instructed to take senna until her first bowel movement and then can decrease to as needed. Patient was educated they do not have a bowel movement within 3 days to contact our office. 5. Benign prostatic hyperplasia: Patient has been able to urinate on his own. He will continue with the Flomax as prescribed 6. Incentive spirometry: Patient was encouraged to use incentive spirometer every hour therapy for first week to exercise along decrease risk. Urinary infection. 7. Dressings: Patient was educated she will have waterproof dressing for 5 days. Patient was educated he can take it off on postop day 5 which is Sunday. Patient was educated she can leave open to air after this. Plan will be for removal on January 31, 2025. 8. Continue postoperative medical treatment per medicine 9. Disposition: Patient has improved today with regards to his confusion and is near baseline. He was alert and oriented x 3. Patient's pain is primarily when he is up and walking. At rest very well-controlled. Medications have been helpful. Patient did improve with physical therapy today. Plan will be for discharge to care home facility once patient has approval. Care management team is currently on board for this process. Once we have approval we will start the discharge planning. All questions were answered to my ability from the patient and family member. Patient currently is at assisted living at [facility]. I have reviewed the [place] Automated Rx Reporting System (OARRS) report for this patient for refill pattern and other prescriber involvement as part of the appropriate surveillance for the provision of acute and chronic controlled medications. The report was requested and reviewed on the date of this entry and was considered in the prescribing process. This dictation was created using voice recognition software. Phonetic and/or grammatical errors may exist.
[2025-01-28 14:27] VITALS: BP 115/57; PULSE 71; RESP 16; TEMP 36.8; O2SAT 98
[2025-01-28 21:45] VITALS: BP 176/94; PULSE 70; RESP 16; TEMP 36.8; O2SAT 100
[2025-01-28] MEDS: Latanoprost 0.005% 1 Bottle 1 DRP OPHTHALMIC (21:57)
[2025-01-28 21:58] VITALS: PULSE 70
[2025-01-28] MEDS: 0.9% Saline Lock 10 ML Syringe IV (21:58)
[2025-01-29 03:06] VITALS: BP 139/84; PULSE 62; RESP 16; TEMP 36.4; O2SAT 97
[2025-01-29 08:52] VITALS: BP 87/67; PULSE 60; RESP 18; TEMP 36.6; O2SAT 98
[2025-01-29 09:41] VITALS: BP 100/53; PULSE 68; RESP 18; O2SAT 98
[2025-01-29 09:45] LABS: Hematocrit 32.2 % (40-54); Hemoglobin 10.8 g/dL (13.0-16.5); Immature Granulocytes Count 0.040 X10^3/uL (0.0-0.0); Mean Corp Hgb Conc 33.5 g/dL (32-36); Mean Corpuscular Volume 83.9 fL (80-94); Mean Platelet Vol. 11.3 fl (6.2-12.0); NRBC Flagged by Analyzer 0 % (0-5); Platelet Count 170 K/mm3 (150-450); RBC Distribution Width CV 16.7 % (11.6-14.6); RBC Distribution Width SD 51.7 fl (35.1-43.9); Red Blood Count 3.84 M/mm3 (4.6-6.2); White Blood Count 8.4 K/mm3 (4.4-11.0)
[2025-01-29] MEDS: BRIMONIDINE 0.2% 5ML BOTTLE 1 DRP OPHTHALMIC ×2 (09:57→22:56)
[2025-01-29] MEDS: Memantine Hydrochloride 5 MG Tablet PO (09:57)
[2025-01-29 10:29] LABS: Anion Gap 12 (5-15); BUN 15 mg/dL (4-19); BUN/Creat Ratio 13.8 RATIO (10-20); Calcium,Total 8.7 mg/dL (7.6-11.0); Carbon Dioxide 21.8 mmol/L (21.0-32.0); Chloride 106 mmol/L (98-108); Estimated Creatinine Clearance 61.01 ml/min (50-250); Glucose 180 mg/dL (70-99); Potassium 3.6 mmol/L (3.3-5.1)
--- NOTE | 2025-01-29 11:33 | CASEMGMT ---
Addendum entered by Beverly Joseph 01/29/25 16:19: Spoke to Yovanny, pt was denied SNF stay. TC to pt son, Red, he is aware of this information. He requested private pay SNF list, emailed. He states they would like to private pay for TCU and questions if a health savings account could be used. Message to admissions who states this is possible. Plan for pt to admit to [facility] TCU tomorrow private pay. Ortho updated. Pt son Red wants to notify his father of this information. Addendum entered by Beverly Joseph 01/29/25 14:05: TC to Gracie, scheduled P2P at 3:30pm. Addendum entered by Beverly Joseph 01/29/25 13:58: Received tc from Danial, he is aware of peer to peer being offered. Dr. Sweeney will complete this. Addendum entered by Beverly Joseph 01/29/25 13:57: Notified that peer to peer was offered for pt prior to a potential adverse determination is issues. Backline sent to [facility]. TC to Daniel Hairston, per Vania, [facility] is in [place], she will request he call [facility]. Original Note: KATELYN WIN notified that pt precert was to be resubmitted this date. KATELYN WIN updated pt and son.
[2025-01-29 14:15] VITALS: BP 105/55; PULSE 62; RESP 16; TEMP 36.6; O2SAT 99
--- NOTE | 2025-01-29 14:24 | PN.HOSP_ITS ---
Subjective Subjective Had some asymptomatic hypotension that resolved with ambulation. His metoprolol was held. Lab work was reordered today which was unremarkable no severe anemia and renal function stable. Objective Data Objective Data Vital Signs: Vital Signs Temp Pulse Resp BP Pulse Ox O2 Del Method O2 Flow Rate 98 F 62 16 105/55 L 99 Room Air 4 01/29/25 14:15 01/29/25 14:15 01/29/25 14:15 01/29/25 14:15 01/29/25 14:15 01/29/25 14:15 01/26/25 13:14 Oxygen Flow Rate (L/min) 4 Oxygen Delivery Method Room Air Weight: 192 lb 3.889 oz Body Mass Index (BMI) 26.8 Intake & Output: Intake and Output for Last 24 Hours 01/28/25 01/29/25 01/30/25 03:59 03:59 03:59 Intake Total 1000 / 1000 1200 / 1200 100 / 100 Output Total 600 / 600 800 / 800 400 / 400 Balance 400 / 400 400 / 400 -300 / -300 Lab / Micro Data 01/29/25 09:33 01/29/25 09:33 Labs: Laboratory Results - last 24 hr 01/29/25 09:33: WBC 8.4, RBC 3.84 L, Hgb 10.8 L, Hct 32.2 L, MCV 83.9, MCH 28.1, MCHC 33.5, RDW Std Deviation 51.7 H, RDW Coeff of Eugene 16.7 H, Plt Count 170, MPV 11.3, Immature Gran % (Auto) 0.500, Neut % (Auto) 76.4 H, Lymph % (Auto) 14.2 L, [place] % (Auto) 5.6, Eos % (Auto) 3.1, Baso % (Auto) 0.2, Absolute Neuts (auto) 6.5, Absolute Lymphs (auto) 1.20, Nucleated RBC % 0, Sodium 141, Potassium 3.6, Chloride 106, Carbon Dioxide 21.8, Anion Gap 12, BUN 15, Creatinine 1.08, Estim Creat Clear Calc 61.01, Est GFR (MDRD) Non-Af 71, BUN/Creatinine Ratio 13.8, G lucose 180 H, Calcium 8.7 Micro: Microbiology 01/20/25 14:55 Swab (Method) Nasal Screen MRSA/MSSA - Final Physical Exam Narrative General: Alert, Oriented x2, Cooperative, No apparent distress HEENT: Atraumatic, PERRLA, EOMI, Normocephalic Oral: Moist Mucosa Neck: Supple, No JVD Lungs: Diminished, Normal air movement, No rhonchi, No wheeze, No rales Cardiovascular: Regular rate, Regular Rhythm, Normal S1, Normal S2, No murmurs Abdomen: Soft, Non Tender, Non-Distended, No Hepato-splenomegaly Extremities: No edema, Capillary Refill Less than 3 Seconds Skin: No rashes, No breakdown Musculoskeletal: No Tenderness to Palpation of Joints or Extremities Neurological: No focal neurological deficits, moves all extremities Psych/Mental Status: Normal Affect, Appropriate Assessment & Plan Assessment/Plan (1) Status post right hip replacement: PLAN: Plan 1. Status post right total hip replacement on 01/26/2025 ? PT/OT ? Pain management per primary ? Planning for SNF on discharge 2. Essential HTN/HLD ? Continue with his home blood pressure medications ? Continue to hold his Lasix ? Continue with his statin ? His asymptomatic hypotension today likely due to inactivity plus his dementia medications, held metoprolol this morning 3. Glaucoma ? Stable ? Continue with his eyedrops 4. Iron deficiency anemia ? Stable ? Continue with his iron replacement 5. Dementia ? Stable ? Continue with his home medications 6. GERD ? Stable ? Continue with PPI 7. BPH with obstruction ? Stable ? Continue with his home medications DVT: Aspirin twice daily Charges/Coding Visit Charges Office Visits / Consults: 85347 OV L3 Est 20min
--- NOTE | 2025-01-29 15:45 | CASEMGMT ---
Discharge Planning A list of?HH providers including quality and resource use data and consistent with the patient's preferred geographic region, medical needs, and insurance network was created in CarePort Guide.? A printed list was provided to the pt and also via text to both of pts sons. Arlyn Stanford, Discharge Planning Asst.
--- NOTE | 2025-01-29 16:12 | PN.ORTHO_ITS ---
Subjective Subjective The patient was sitting in bed upon examination. Patient's family was not present today. Patient is alert and oriented x 3. He does have baseline dementia. Plan was for patient to go to the transitional care unit however peer to peer which was done by Dr. Aurelio Sweeney the insurance denied this approval. Care management team has been in discussion with the patient's family. At this time they are going to look at pain [id number] to the transitional care unit tomorrow. Patient did have some lower blood pressure today in which medicine was reconsulted. Patient has been stable since. Patient denies any chest pain, shortness of breath, dizziness, lightheadedness, nausea or vomiting, or calf pain. Pain is controlled on medications. No adverse overnight events. Patient walked 180 feet today with contact-guard with therapy. Patient states his pain has been controlled. Objective Data Objective Data Vital Signs: Vital Signs Temp Pulse Resp BP Pulse Ox O2 Del Method O2 Flow Rate 98 F 62 16 105/55 L 99 Room Air 4 01/29/25 14:15 01/29/25 14:15 01/29/25 14:15 01/29/25 14:15 01/29/25 14:15 01/29/25 14:15 01/26/25 13:14 Oxygen Flow Rate (L/min) 4 Oxygen Delivery Method Room Air Weight: 87.2 kg Body Mass Index (BMI) 26.8 Intake & Output: Intake and Output for Last 24 Hours 01/27/25 01/28/25 01/29/25 23:59 23:59 23:59 Intake Total 1050 / 1050 1050 / 1200 250 / 250 Output Total 600 / 600 600 / 800 600 / 600 Balance 450 / 450 450 / 400 -350 / -350 Lab / Micro Data 01/29/25 09:33 01/29/25 09:33 Labs: Laboratory Results - last 24 hr 01/29/25 09:33: WBC 8.4, RBC 3.84 L, Hgb 10.8 L, Hct 32.2 L, MCV 83.9, MCH 28.1, MCHC 33.5, RDW Std Deviation 51.7 H, RDW Coeff of Eugene 16.7 H, Plt Count 170, MPV 11.3, Immature Gran % (Auto) 0.500, Neut % (Auto) 76.4 H, Lymph % (Auto) 14.2 L, [place] % (Auto) 5.6, Eos % (Auto) 3.1, Baso % (Auto) 0.2, Absolute Neuts (auto) 6.5, Absolute Lymphs (auto) 1.20, Nucleated RBC % 0, Sodium 141, Potassium 3.6, Chloride 106, Carbon Dioxide 21.8, Anion Gap 12, BUN 15, Creatinine 1.08, Estim Creat Clear Calc 61.01, Est GFR (MDRD) Non-Af 71, BUN/Creatinine Ratio 13.8, G lucose 180 H, Calcium 8.7 Micro: Microbiology 01/20/25 14:55 Swab (Method) Nasal Screen MRSA/MSSA - Final Physical Exam Narrative Vital signs stable and afebrile. Right thigh is soft and supple SCDs and BOB hose are in place bilaterally Patient is able to plantarflex and dorsiflex actively. Sensation is intact to light touch to saphenous, sural, superficial and deep peroneal, and tibial distribution. Dressing has been stable with quarter size stable drainage over the distal one third Negative Homans bilaterally, negative signs and symptoms of DVT. Const alert, oriented x3 and no apparent distress Assessment & Plan Assessment/Plan (1) Status post right hip replacement: PLAN: Status post right anterior total hip arthroplasty day 3. 1. DVT prophylaxis: Patient will be taking aspirin 81 mg twice daily for 4 weeks postoperatively. Patient denies any history of DVT or PE. Patient will be wearing BOB hose for 2 weeks postoperatively. We are going to avoid anti- inflammatory medications in this patient due to his cardiac history. 2. Pain medications: Patient will be taking Tylenol 1000 mg every 8 hours, oxycodone as needed for postoperative pain control. Will be avoiding any anti- inflammatory medications in this patient. 3. Physical therapy: Patient is continue to be weightbearing as tolerated with his walker. Patient was educated on anterior hip precautions in office today. Patient walked 180 feet with contact-guard today with therapy. 4. Constipation: Patient was instructed to take senna until her first bowel movement and then can decrease to as needed. Patient was educated they do not have a bowel movement within 3 days to contact our office. 5. Benign prostatic hyperplasia: Patient has been able to urinate on his own. He will continue with the Flomax as prescribed 6. Incentive spirometry: Patient was encouraged to use incentive spirometer every hour therapy for first week to exercise along decrease risk. Urinary infection. 7. Dressings: Patient was educated she will have waterproof dressing for 5 days. Patient was educated he can take it off on postop day 5 which is Sunday. Patient was educated she can leave open to air after this. Plan will be for removal on January 31, 2025. 8. Continue postoperative medical treatment per medicine: Medicine was able to see the patient today. He did initially have his blood pressure on hold. Lab work was reordered. 9. Lab work: Hemoglobin has been stable at 10.8. Renal function has been stable. Patient on clinical exam is asymptomatic. 10. Disposition: A peer to peer was attempted today by Dr. Aurelio Sweeney in which the insurance denied approval for patient to go to the transitional care unit. Patient does have dementia in which she is not back at baseline. Care management team has discussed this with patient's family. At this time since insurance denied they are considering paying [id number] for the transitional care unit. Care management team is currently on board for setting this up. Patient will continue to work with physical therapy while on the [facility] floor. Continue above pain medications and DVT prophylaxis. Medicine felt patient was stable and did resume medications. At this time from orthopedic standpoint patient plan will be discharge probably tomorrow to the transitional care unit in which they will pay [id number]. Case has been discussed with Dr. Aurelio Sweeney. I have reviewed the [place] Automated Rx Reporting System (OARRS) report for this patient for refill pattern and other prescriber involvement as part of the appropriate surveillance for the provision of acute and chronic controlled medications. The report was requested and reviewed on the date of this entry and was considered in the prescribing process. This dictation was created using voice recognition software. Phonetic and/or grammatical errors may exist.
[2025-01-29 21:43] VITALS: BP 172/111; PULSE 80; RESP 16; TEMP 36.3; O2SAT 100
--- NOTE | 2025-01-29 22:20 | RAD_ITS ---
PROCEDURE: HIP, UNI W/ PELVIS 2-3 VIEWS 01/29/2025 REASON FOR EXAM: PT FELL TECHNIQUE: Procedure Code: RADHP Modality: DX Procedure: HIP, UNI W/ PELVIS 2-3 VIEWS Laterality: Right COMPARISON: 01/26/2025 FINDINGS: No evidence of acute fracture or dislocation. Status post right hip arthroplasty with intact appearing hardware. Resolving residual postoperative soft tissue swelling and scattered subcutaneous emphysema overlying the right hip from recent surgery. RAD/HIP, UNI W/ Pelvis 2-3 Views IMPRESSION: No acute fracture or dislocation appreciated. Right hip arthroplasty with intact hardware. Reading Location: [id number]
[2025-01-29 22:57] VITALS: BP 166/94; PULSE 66
[2025-01-29] MEDS: Metoprolol(XL)Succ 25 MG Tablet 12.5 MG PO (22:57)
[2025-01-29] MEDS: Senna/Docusate Sodium 1 Tablet 2 TABLET PO (22:57)
[2025-01-29] MEDS: Latanoprost 0.005% 1 Bottle 1 DRP OPHTHALMIC (23:09)
[2025-01-30 03:30] VITALS: BP 182/99; PULSE 67; RESP 16; TEMP 36.7; O2SAT 97
[2025-01-30 04:16] VITALS: BP 151/91
--- NOTE | 2025-01-30 06:54 | NURSING ---
At 2143 on 01/29/25 pt's bed alarm was going off and Patient was found on the floor sitting down. Fall was unwitnessed patient stated he did not hit his head. No Loss of coconsciousness. Staff assisted patient back to bed. Patient could not comprehend what he was doing and could not follow directions. Vitals were stable and there was not any signs of injury. Physician called and X-ray ordered and read. X-ray of hip showed no injuries. Attempts to contact family were made. Voicemail was left. will contact again.
[2025-01-30 09:39] VITALS: BP 98/62; PULSE 73; RESP 18; TEMP 36.6; O2SAT 98
[2025-01-30] MEDS: Memantine Hydrochloride 5 MG Tablet PO (09:43)
[2025-01-30] MEDS: Senna/Docusate Sodium 1 Tablet 2 TABLET PO (09:43)
[2025-01-30] MEDS: Polyethylene Glycol 3350 17 GM PACKET PO (09:43)
[2025-01-30] MEDS: BRIMONIDINE 0.2% 5ML BOTTLE 1 DRP OPHTHALMIC (09:44)
--- NOTE | 2025-01-30 10:01 | CASEMGMT ---
Addendum entered by Beverly Joseph 01/30/25 14:14: Pt son Red came to nurse's station. He is aware of all info left via vm. He denies need for printed info on appeal. He is aware once pt is trf'd over he can make financial payment and made him aware of where the temporary salesforce business analyst's window is. He denies any further questions at this time. Addendum entered by Beverly Joseph 01/30/25 13:54: TC to pt son Red CEBALLOS, left indicating that this RN AUDELIA will email him the documents that were received for the appeal. On the front of the sheet the phone number to check the status is written. He is aware once pt is trf to [facility] a V# will be created and he can pay the salesforce business analyst's office. Requested he call RN AUDELIA back with any questions. Addendum entered by Beverly Joseph 01/30/25 13:50: RN AUDELIA into pt room, pt is aware that he will get trf'd to [facility] this date. Tubed trf to ext care, signed med list and rx. Placed copy of rx and med list in chart. Addendum entered by Beverly Joseph 01/30/25 13:38: Medical records faxed to [facility] with appropriate information on cover sheet. Records include op report, H&P, progress notes, labs, medication list, nursing note and therapy notes. Addendum entered by Beverly Joseph 01/30/25 13:13: TC to [facility], requested an expedited appeal. A decision will be given in 72 hours. All medical records are to be faxed to with the Member ID on the cover sheet. The phone number to check on appeal status is opt 3. The case # is [id number]. Original Note: Received documents for appeal to [facility]. TC to pt son LIN Moon, he is aware that [facility] can accept today. He is also aware that they are in covid outbreak status. Discussed precautionary measures taken as well as testing. Pt son states he would still like pt to go to [facility] today. Discussed the opportunity for appeal, pt son would like this to be completed. He asks that RN AUDELIA complete on his behalf. He states he will be in this morning and will ask for RN AUDELIA.
--- NOTE | 2025-01-30 12:49 | PCM.PN.ORT ---
Subjective Subjective The patient was sitting in bedside chair upon examination. Patient denies any chest pain, shortness of breath, dizziness, lightheadedness, nausea or vomiting, or calf pain. Pain is controlled on medications. No adverse overnight events. Patient did sustain a fall in the hospital while in bed. This occurred on January 29, 2025. This was discussed with Dr. Aurelio Sweeney. X-rays were obtained and showed no fracture. Patient appears to be doing very well from a pain standpoint today on exam. Patient is alert and oriented x 3 but does have confusion. Patient thinks that he fell off the couch. Care management team is currently on board and plan is for discharge to the transitional care unit today.. Objective Data Objective Data Vital Signs: Vital Signs Temp Pulse Resp BP Pulse Ox O2 Del Method O2 Flow Rate 97.9 F 73 18 98/62 98 Room Air 4 01/30/25 09:39 01/30/25 09:39 01/30/25 09:39 01/30/25 09:39 01/30/25 09:39 01/30/25 09:39 01/26/25 13:14 Oxygen Flow Rate (L/min) 4 Oxygen Delivery Method Room Air Weight: 87.2 kg Body Mass Index (BMI) 26.8 Intake & Output: Intake and Output for Last 24 Hours 01/28/25 01/29/25 01/30/25 23:59 23:59 23:59 Intake Total 1050 / 1200 250 / 250 200 / 200 Output Total 600 / 800 600 / 600 Balance 450 / 400 -350 / -350 200 / 200 Lab / Micro Data 01/29/25 09:33 01/29/25 09:33 Micro: Microbiology 01/20/25 14:55 Swab (Method) Nasal Screen MRSA/MSSA - Final Radiography Diagnostic Testing: Radiology Impression Hip/Pelvis X-Ray 01/29/25 22:20 IMPRESSION: No acute fracture or dislocation appreciated. Right hip arthroplasty with intact hardware. Reading Location: [facility] Physical Exam Narrative Vital signs stable and afebrile. Right hip is soft and supple nontender to palpation SCDs and BOB hose are in place bilaterally Patient is able to plantarflex and dorsiflex actively. Sensation is intact to light touch to saphenous, sural, superficial and deep peroneal, and tibial distribution. Dressing intact to the skin with stable quarter size drainage which has been stable over the past several days Negative Homans bilaterally, negative signs and symptoms of DVT. Const alert, oriented x3 and no apparent distress Assessment & Plan Assessment/Plan (1) Status post right hip replacement: PLAN: Status post right anterior total hip arthroplasty day 4. 1. DVT prophylaxis: Patient will be taking aspirin 81 mg twice daily for 4 weeks postoperatively. Patient denies any history of DVT or PE. Patient will be wearing BOB hose for 2 weeks postoperatively. We are going to avoid anti-inflammatory medications in this patient due to his cardiac history. 2. Pain medications: Patient will be taking Tylenol 1000 mg every 8 hours, oxycodone as needed for postoperative pain control. Will be avoiding any anti-inflammatory medications in this patient. 3. Physical therapy: Patient is continue to be weightbearing as tolerated with his walker. Patient was educated on anterior hip precautions in office today. Patient walked 180 feet with contact-guard today with therapy. 4. Constipation: Patient was instructed to take senna until her first bowel movement and then can decrease to as needed. 5. Benign prostatic hyperplasia: Patient has been able to urinate on his own. He will continue with the Flomax as prescribed 6. Incentive spirometry: Patient was encouraged to use incentive spirometer every hour therapy for first week to exercise along decrease risk. Urinary infection. 7. Dressings: Patient was educated she will have waterproof dressing for 5 days. Patient was educated he can take it off on postop day 5 which is Sunday. Patient was educated she can leave open to air after this. Plan will be for removal on January 31, 2025. 8. Continue postoperative medical treatment per medicine: Medicine was able to see the patient today. He did initially have his blood pressure on hold. Lab work was reordered. 9. Recent fall over the past 24 hours out of the bed. Patient was found on the floor. X-rays were obtained which did not reveal any acute finding for fracture. 10. Disposition: Plan is for discharge today to the transitional care unit at [facility]. Prescription will be placed on chart for the oxycodone. Medication reconciliation will be placed on the chart. Patient will keep his scheduled follow-up for 2 weeks postoperatively for x-rays and incision check. Upon discharge they are going to contact our office with any concerns or questions. Due to patient's baseline dementia and confusion it will be important that he is managed for safe discharge planning at the transitional care unit. Recommend he is getting up. Working on activities and exercise per physical therapy. Continue with the walker at all times to prevent fall. Dressing will be removed tomorrow on January 31, 2025. Case has been discussed with Aurelio Sweeney. I have reviewed the [place] Automated Rx Reporting System (OARRS) report for this patient for refill pattern and other prescriber involvement as part of the appropriate surveillance for the provision of acute and chronic controlled medications. The report was requested and reviewed on the date of this entry and was considered in the prescribing process. This dictation was created using voice recognition software. Phonetic and/or grammatical errors may exist.
--- NOTE | 2025-01-30 12:54 | PCM.TXEXTCAR ---
Diet Diet Order/Speech Therapy: INPATIENT Hospital Diet / Speech Therapy Order(s) 01/26/25 13:16 Diet: Regular - General DC O2, CPAP, BIPAP needs Home O2 Discharge instructions: No Wound(s) right hip: Wound Type: Surgical Incision Therapies Weight Bearing: Weight bearing as tolerated (With walker at all times) Physical Therapy: Eval and Treat (Continue anterior hip precautions) Occupational Therapy: Eval and Treat Problem/Diagnosis (1) Status post right hip replacement: Status: Acute Code(s): Z96.641 - Presence of right artificial hip joint Plan: Status post right anterior total hip arthroplasty day 4. 1. DVT prophylaxis: Patient will be taking aspirin 81 mg twice daily for 4 weeks postoperatively. Patient denies any history of DVT or PE. Patient will be wearing BOB hose for 2 weeks postoperatively. We are going to avoid anti-inflammatory medications in this patient due to his cardiac history. 2. Pain medications: Patient will be taking Tylenol 1000 mg every 8 hours, oxycodone as needed for postoperative pain control. Will be avoiding any anti-inflammatory medications in this patient. 3. Physical therapy: Patient is continue to be weightbearing as tolerated with his walker. Patient was educated on anterior hip precautions in office today. Patient walked 180 feet with contact-guard today with therapy. 4. Constipation: Patient was instructed to take senna until her first bowel movement and then can decrease to as needed. 5. Benign prostatic hyperplasia: Patient has been able to urinate on his own. He will continue with the Flomax as prescribed 6. Incentive spirometry: Patient was encouraged to use incentive spirometer every hour therapy for first week to exercise along decrease risk. Urinary infection. 7. Dressings: Patient was educated she will have waterproof dressing for 5 days. Patient was educated he can take it off on postop day 5 which is Sunday. Patient was educated she can leave open to air after this. Plan will be for removal on January 31, 2025. 8. Continue postoperative medical treatment per medicine: Medicine was able to see the patient today. He did initially have his blood pressure on hold. Lab work was reordered. 9. Recent fall over the past 24 hours out of the bed. Patient was found on the floor. X-rays were obtained which did not reveal any acute finding for fracture. 10. Disposition: Plan is for discharge today to the transitional care unit at [facility]. Prescription will be placed on chart for the oxycodone. Medication reconciliation will be placed on the chart. Patient will keep his scheduled follow-up for 2 weeks postoperatively for x-rays and incision check. Upon discharge they are going to contact our office with any concerns or questions. Due to patient's baseline dementia and confusion it will be important that he is managed for safe discharge planning at the transitional care unit. Recommend he is getting up. Working on activities and exercise per physical therapy. Continue with the walker at all times to prevent fall. Dressing will be removed tomorrow on January 31, 2025. Case has been discussed with Aurelio Sweeney. I have reviewed the [place] Automated Rx Reporting System (OARRS) report for this patient for refill pattern and other prescriber involvement as part of the appropriate surveillance for the provision of acute and chronic controlled medications. The report was requested and reviewed on the date of this entry and was considered in the prescribing process. This dictation was created using voice recognition software. Phonetic and/or grammatical errors may exist. Allergies/Procedures Done in Hospital Allergies No Known Allergies Allergy (Verified 01/26/25 07:20) Procedures: - (Direct anterior right total hip arthroplasty) Type of Care/Length of Stay Estimated LOS: Convalescent Care Less Than 30 days Type of Care Needed: Skilled Rehab Potential: Good Prognosis: Good Additional Orders/Day of Discharge Day of Discharge: 01/30/25 Discharge Plan Admission Admit Date/Time: 01/26/25 07:44 Attending Provider: Aurelio Sweeney Primary Care Provider: Moiz Tobias Consulting Providers: Matthew Snow Discharge Orders/Prescriptions Prescriptions: New acetaminophen 500 mg Tablet 1,000 mg PO Q8 14 Days Qty: 0 0RF Rx Instructions: Do not take more than 3000 mg Tylenol in a 24-hour period. aspirin 81 mg Tablet,Chewable 81 mg PO BID 30 Days Qty: 0 0RF Rx Instructions: Take 81 mg aspirin twice daily for 4 weeks postoperatively for DVT prophylaxis. Patient denies past history of DVT or pulmonary embolism. oxycodone 5 mg Tablet 5 - 10 mg PO Q4H PRN PRN (Reason: as needed for pain) 7 Days Qty: 30 0RF sennosides-docusate sodium [Stimulant Laxative Plus] 8.6-50 mg Tablet 2 tab PO BID Qty: 0 0RF Rx Instructions: Take until first bowel movement, then as needed Continued donepezil 5 mg tablet 10 mg PO DAILY fluticasone propionate 50 mcg/actuation spray,suspension 2 spray INTRANASAL DAILY PRN PRN (Reason: nasal congestion) Patient Comments: [NO ORIGINAL SIG] atorvastatin 40 mg tablet 80 mg PO DAILY cyanocobalamin (vitamin B-12) 1,000 mcg tablet 1,000 mcg PO DAILY cholecalciferol (vitamin D3) [Vitamin D3] 25 mcg (1,000 unit) capsule 25 mcg PO DAILY sennosides-docusate sodium [Senna Plus] 8.6-50 mg tablet 1 tab-cap PO QHS ascorbic acid (vitamin C) [Vitamin C] 500 mg tablet 500 mg PO DAILY magnesium 200 mg tablet 400 mg PO DAILY tamsulosin 0.4 mg capsule 0.4 mg PO BID metoprolol succinate 25 mg tablet extended release 24 hr 12.5 mg PO BID Patient Comments: [NO ORIGINAL SIG] potassium chloride [Klor-Con] 20 mEq packet 20 meq PO DAILY PRN (Reason: WITH USE OF LASIX) furosemide [Lasix] 40 mg tablet 20 mg PO .QD PRN (Reason: edema) brimonidine 0.2 % drops 1 drp ophthalmic (eye) BID casanthranol-docusate sodium 30-100 mg capsule 1 cap PO DAILY Florajen Digestion 15 billion cell capsule 1 cap PO DAILY folic acid 1 mg tablet 1 mg PO DAILY latanoprost 0.005 % drops 1 drp ophthalmic (eye) QHS melatonin 3 mg capsule 3 mg PO QHS PRN (Reason: sleep) memantine 5 mg tablet 5 mg PO DAILY polyethylene glycol 3350 [Miralax] 17 gram/dose powder 17 g PO DAILY PreserVision AREDS-2 250-90-40-1 mg capsule 1 tab PO BID ferrous sulfate [FeroSul] 325 mg (65 mg iron) tablet 325 mg PO DAILY pantoprazole [Protonix] 40 mg tablet,delayed release (DR/EC) 40 mg PO DAILY Qty: 30 3RF Discontinued aspirin 81 mg capsule 81 mg PO DAILY acetaminophen 500 mg capsule 1,000 mg PO Q8H PRN PRN (Reason: pain) Referrals / Follow Up: Moiz Tobias MD [Primary Care Provider, Family Practice] EsDanial hidalgo PA-C [Med Staff - Adv Practice Prof, Orthopedics] - 02/09/25 9:15 am Disposition Disposition (needs filled in before D/C Order can be placed): [facility]
--- NOTE | 2025-01-30 13:06 | PCM.DC ---
Discharge Instructions DC O2, CPAP, BIPAP needs Home O2 Discharge instructions: No Dressing / Incision Discharge Activity: May Not Drive (while taking narcotic pain medications.) May shower in (days): 1 (only if incision is dry and without drainage. Do NOT soak/submerge in tub/pool/charles/stream/hot tub.)) Ice area for (Minutes): 20 (Every 1-2 hours while awake[address] place barrier between ice and skin.) Weight Bearing Status: Weight bearing as tolerated (With walker at all times) Keep extremity elevated above heart level: Operative Extremity Additional Activity Instructions:: Follow [facility] Post-op Instructions. Once postoperative dressing has been removed only use gentle soap and water over the incision. Do not use any ointments, Neosporin, salves, alcohol pads over the incision for 6 weeks postoperatively. Do not submerge underwater for 6 weeks postoperatively. Wear elastic stockings for 2 weeks. Do NOT use alcohol with narcotic pain medication. Do NOT make important decisions while taking narcotic medication. If you have problems with taking your medication (rash, itching, nausea, etc.) call the office at once. Dressing / Incision Call your doctor if your incision/area has: Continuous Slow Oozing, Sudden Increased Bleeding, Increased Pain/ Swelling, Increased Redness and Foul Smelling Discharge Call your doctor if you observe: Fever of 101 or Higher, Shortness of breath, Chest pain, Calf discomfort and Uncontrolled pain Remove Dressing in: 1 day (Remove dressing on January 31, 2025.) Additional Dressing/Incision Instructions:: Follow [facility] Post-op Instructions. Once postoperative dressing has been removed, only use gentle soap and water over the incision. Do not use any ointments, Neosporin, salves, alcohol pads over the incision for 6 weeks postoperatively. Do not submerge underwater for 6 weeks postoperatively. Continue with BOB hose/elastic stockings for 2 weeks postoperatively. May remove at nighttime but needs to be placed back on the leg during the day. Do NOT use alcohol with narcotic pain medication. Do NOT make important decisions while taking narcotic medication. If you have problems with taking your medication (rash, itching, nausea, etc.) call the office at once. Follow Up Care Test Results: Test results from this visit will be discussed in further detail at your follow-up appointment, if applicable. Discharge Plan Admission Admit Date/Time: 01/26/25 07:44 Attending Provider: Aurelio Sweeney Primary Care Provider: Moiz Tobias Consulting Providers: Matthew Snow Discharge Orders/Prescriptions Prescriptions: New acetaminophen 500 mg Tablet 1,000 mg PO Q8 14 Days Qty: 0 0RF Rx Instructions: Do not take more than 3000 mg Tylenol in a 24-hour period. aspirin 81 mg Tablet,Chewable 81 mg PO BID 30 Days Qty: 0 0RF Rx Instructions: Take 81 mg aspirin twice daily for 4 weeks postoperatively for DVT prophylaxis. Patient denies past history of DVT or pulmonary embolism. oxycodone 5 mg Tablet 5 - 10 mg PO Q4H PRN PRN (Reason: as needed for pain) 7 Days Qty: 30 0RF sennosides-docusate sodium [Stimulant Laxative Plus] 8.6-50 mg Tablet 2 tab PO BID Qty: 0 0RF Rx Instructions: Take until first bowel movement, then as needed Continued donepezil 5 mg tablet 10 mg PO DAILY fluticasone propionate 50 mcg/actuation spray,suspension 2 spray INTRANASAL DAILY PRN PRN (Reason: nasal congestion) Patient Comments: [NO ORIGINAL SIG] atorvastatin 40 mg tablet 80 mg PO DAILY cyanocobalamin (vitamin B-12) 1,000 mcg tablet 1,000 mcg PO DAILY cholecalciferol (vitamin D3) [Vitamin D3] 25 mcg (1,000 unit) capsule 25 mcg PO DAILY sennosides-docusate sodium [Senna Plus] 8.6-50 mg tablet 1 tab-cap PO QHS ascorbic acid (vitamin C) [Vitamin C] 500 mg tablet 500 mg PO DAILY magnesium 200 mg tablet 400 mg PO DAILY tamsulosin 0.4 mg capsule 0.4 mg PO BID metoprolol succinate 25 mg tablet extended release 24 hr 12.5 mg PO BID Patient Comments: [NO ORIGINAL SIG] potassium chloride [Klor-Con] 20 mEq packet 20 meq PO DAILY PRN (Reason: WITH USE OF LASIX) furosemide [Lasix] 40 mg tablet 20 mg PO .QD PRN (Reason: edema) brimonidine 0.2 % drops 1 drp ophthalmic (eye) BID casanthranol-docusate sodium 30-100 mg capsule 1 cap PO DAILY Florajen Digestion 15 billion cell capsule 1 cap PO DAILY folic acid 1 mg tablet 1 mg PO DAILY latanoprost 0.005 % drops 1 drp ophthalmic (eye) QHS melatonin 3 mg capsule 3 mg PO QHS PRN (Reason: sleep) memantine 5 mg tablet 5 mg PO DAILY polyethylene glycol 3350 [Miralax] 17 gram/dose powder 17 g PO DAILY PreserVision AREDS-2 250-90-40-1 mg capsule 1 tab PO BID ferrous sulfate [FeroSul] 325 mg (65 mg iron) tablet 325 mg PO DAILY pantoprazole [Protonix] 40 mg tablet,delayed release (DR/EC) 40 mg PO DAILY Qty: 30 3RF Discontinued aspirin 81 mg capsule 81 mg PO DAILY acetaminophen 500 mg capsule 1,000 mg PO Q8H PRN PRN (Reason: pain) Referrals / Follow Up: Moiz Tobias MD [Primary Care Provider, [facility]] Danial Dennis PA-C [Med Staff - [facility] Prof, Orthopedics] - 02/09/25 9:15 am Disposition Disposition (needs filled in before D/C Order can be placed): [facility] Facility
--- NOTE | 2025-01-30 13:08 | PHA.DC.MR.R ---
Pharmacy [place] Med Reconciliation Pharmacy Service has performed discharge medication reconciliation for this patient. The patient's discharge medication list was reviewed for discrepancies and discrepancies were resolved. Medications at Discharge Home Medications donepezil 5 mg tablet 10 mg PO DAILY 06/04/23 fluticasone propionate 50 mcg/actuation nasal spray,suspension 2 spray intranasal DAILY PRN PRN nasal congestion 09/28/23 ascorbic acid (vitamin C) 500 mg tablet (Vitamin C) 500 mg PO DAILY 03/27/24 atorvastatin 40 mg tablet 80 mg PO DAILY 03/27/24 cholecalciferol (vitamin D3) 25 mcg (1,000 unit) capsule (Vitamin D3) 25 mcg PO DAILY 03/27/24 cyanocobalamin (vitamin B-12) 1,000 mcg tablet 1,000 mcg PO DAILY 03/27/24 furosemide 40 mg tablet (Lasix) 20 mg PO .QD PRN edema 03/27/24 magnesium 200 mg tablet 400 mg PO DAILY 03/27/24 metoprolol succinate 25 mg tablet,extended release 24 hr 12.5 mg PO BID 03/27/24 potassium chloride 20 mEq oral packet (Klor-Con) 20 meq PO DAILY PRN WITH USE OF LASIX 03/27/24 sennosides 8.6 mg-docusate sodium 50 mg tablet (Senna Plus) 1 tab-cap PO QHS 03/27/24 tamsulosin 0.4 mg capsule 0.4 mg PO BID 03/27/24 pantoprazole 40 mg tablet,delayed release (Protonix) 40 mg PO DAILY #30 tabs 09/12/24 L.acidophilus-B.animalis-B.longum 15 billion cell capsule (Florajen Digestion) 1 cap PO DAILY 01/01/25 brimonidine 0.2 % eye drops 1 drp ophthalmic (eye) BID 01/01/25 casanthranol-docusate sodium 30 mg-100 mg capsule 1 cap PO DAILY 01/01/25 ferrous sulfate 325 mg (65 mg iron) tablet (FeroSul) 325 mg PO DAILY 01/01/25 folic acid 1 mg tablet 1 mg PO DAILY 01/01/25 latanoprost 0.005 % eye drops 1 drp ophthalmic (eye) QHS 01/01/25 melatonin 3 mg capsule 3 mg PO QHS PRN sleep 01/01/25 memantine 5 mg tablet 5 mg PO DAILY 01/01/25 polyethylene glycol 3350 17 gram/dose oral powder (Miralax) 17 g PO DAILY 01/01/25 vit C 250 mg-vit E 90 mg-zinc 40 mg-copper 1 rv-oclark-crvpoq capsule (PreserVision AREDS-2) 1 tab PO BID 01/01/25 acetaminophen 500 mg tablet 1,000 mg (2 x 500 mg) PO Q8 14 days #0 tabs 01/30/25 aspirin 81 mg chewable tablet 81 mg PO BID 30 days #0 tabs 01/30/25 oxycodone 5 mg tablet 5 - 10 mg (1 - 2 x 5 mg) PO Q4H PRN PRN as needed for pain 7 days #30 tabs 01/30/25 sennosides 8.6 mg-docusate sodium 50 mg tablet (Stimulant Laxative Plus) 2 tab PO BID #0 tabs 01/30/25
[2025-01-30 14:02] VITALS: BP 138/85; PULSE 60; RESP 16; TEMP 36.3; O2SAT 99
--- NOTE | 2025-01-30 14:11 | NURSING ---
Report called to [facility] pt will go to room 22.
--- NOTE | 2025-01-30 15:18 | DS.PCM_ITS ---
Providers Date of Admission: 01/26/25 Date of Discharge: 01/30/25 Primary Care Physician: Dr. Moiz Tobias MD Consultations 01/26/25 07:44 Consult: Hospitalist Routine Consulting Provider: Matthew Snow Reason for Consult: post op med management EMERGENT Consult: No MD Notified: Yes Date Notified: 01/26/25 Time Notified: 11:48 Method of Notification: Text Reason For Visit: ERAS, ANTERIOR RIGHT TOTAL HIP ARTHROPLASTY Diagnosis Discharge Diagnosis (1) Status post right hip replacement: Status: Acute Code(s): Z96.641 - Presence of right artificial hip joint Plan: Status post right anterior total hip arthroplasty day 4. 1. DVT prophylaxis: Patient will be taking aspirin 81 mg twice daily for 4 weeks postoperatively. Patient denies any history of DVT or PE. Patient will be wearing BOB hose for 2 weeks postoperatively. We are going to avoid anti- inflammatory medications in this patient due to his cardiac history. 2. Pain medications: Patient will be taking Tylenol 1000 mg every 8 hours, oxycodone as needed for postoperative pain control. Will be avoiding any anti- inflammatory medications in this patient. 3. Physical therapy: Patient is continue to be weightbearing as tolerated with his walker. Patient was educated on anterior hip precautions in office today. Patient walked 180 feet with contact-guard today with therapy. 4. Constipation: Patient was instructed to take senna until her first bowel movement and then can decrease to as needed. 5. Benign prostatic hyperplasia: Patient has been able to urinate on his own. He will continue with the Flomax as prescribed 6. Incentive spirometry: Patient was encouraged to use incentive spirometer every hour therapy for first week to exercise along decrease risk. Urinary infection. 7. Dressings: Patient was educated she will have waterproof dressing for 5 days. Patient was educated he can take it off on postop day 5 which is Sunday. Patient was educated she can leave open to air after this. Plan will be for removal on January 31, 2025. 8. Continue postoperative medical treatment per medicine: Medicine was able to see the patient today. He did initially have his blood pressure on hold. Lab work was reordered. 9. Recent fall over the past 24 hours out of the bed. Patient was found on the floor. X-rays were obtained which did not reveal any acute finding for fracture. 10. Disposition: Plan is for discharge today to the transitional care unit at [facility]. Prescription will be placed on chart for the oxycodone. Medication reconciliation will be placed on the chart. Patient will keep his scheduled follow-up for 2 weeks postoperatively for x-rays and incision check. Upon discharge they are going to contact our office with any concerns or questions. Due to patient's baseline dementia and confusion it will be important that he is managed for safe discharge planning at the transitional care unit. Recommend he is getting up. Working on activities and exercise per physical therapy. Continue with the walker at all times to prevent fall. Dressing will be removed tomorrow on January 31, 2025. Case has been discussed with Aurelio Sweeney. I have reviewed the [place] Automated Rx Reporting System (OARRS) report for this patient for refill pattern and other prescriber involvement as part of the appropriate surveillance for the provision of acute and chronic controlled medications. The report was requested and reviewed on the date of this entry and was considered in the prescribing process. This dictation was created using voice recognition software. Phonetic and/or grammatical errors may exist. Medications at Discharge Home Medications donepezil 5 mg tablet 10 mg PO DAILY mind 06/04/23 fluticasone propionate 50 mcg/actuation nasal spray,suspension 2 spray intranasal DAILY PRN PRN nasal congestion 09/28/23 ascorbic acid (vitamin C) 500 mg tablet (Vitamin C) 500 mg PO DAILY supplement 03/27/24 atorvastatin 40 mg tablet 80 mg PO DAILY cholesterol 03/27/24 cholecalciferol (vitamin D3) 25 mcg (1,000 unit) capsule (Vitamin D3) 25 mcg PO DAILY supplement 03/27/24 cyanocobalamin (vitamin B-12) 1,000 mcg tablet 1,000 mcg PO DAILY supplement 03/27/24 furosemide 40 mg tablet (Lasix) 20 mg PO .QD PRN edema 03/27/24 magnesium 200 mg tablet 400 mg PO DAILY supplement 03/27/24 metoprolol succinate 25 mg tablet,extended release 24 hr 12.5 mg PO BID BP/pulse 03/27/24 potassium chloride 20 mEq oral packet (Klor-Con) 20 meq PO DAILY PRN WITH USE OF LASIX 03/27/24 sennosides 8.6 mg-docusate sodium 50 mg tablet (Senna Plus) 1 tab-cap PO QHS PRN supplement 03/27/24 tamsulosin 0.4 mg capsule 0.4 mg PO BID bladder 03/27/24 pantoprazole 40 mg tablet,delayed release (Protonix) 40 mg PO DAILY reflux #30 tabs 09/12/24 L.acidophilus-B.animalis-B.longum 15 billion cell capsule (Florajen Digestion) 1 cap PO DAILY probiotic 01/01/25 brimonidine 0.2 % eye drops 1 drp ophthalmic (eye) BID glaucoma 01/01/25 casanthranol-docusate sodium 30 mg-100 mg capsule 1 cap PO DAILY bowels 01/01/25 ferrous sulfate 325 mg (65 mg iron) tablet (FeroSul) 325 mg PO DAILY supplement 01/01/25 folic acid 1 mg tablet 1 mg PO DAILY supplement 01/01/25 latanoprost 0.005 % eye drops 1 drp ophthalmic (eye) QHS eyes 01/01/25 melatonin 3 mg capsule 3 mg PO QHS PRN sleep 01/01/25 memantine 5 mg tablet 5 mg PO DAILY mind 01/01/25 polyethylene glycol 3350 17 gram/dose oral powder (Miralax) 17 g PO DAILY bowels 01/01/25 vit C 250 mg-vit E 90 mg-zinc 40 mg-copper 1 ri-fnfkqm-wdeaso capsule (PreserVision AREDS-2) 1 tab PO BID supplement 01/01/25 acetaminophen 500 mg tablet 1,000 mg (2 x 500 mg) PO Q8 pain 14 days #0 tabs 01/30/25 aspirin 81 mg chewable tablet 81 mg PO BID blood thinner 30 days #0 tabs 01/30/25 oxycodone 5 mg tablet 5 - 10 mg (1 - 2 x 5 mg) PO Q4H PRN PRN as needed for pain 7 days #30 tabs 01/30/25 sennosides 8.6 mg-docusate sodium 50 mg tablet (Stimulant Laxative Plus) 2 tab- cap PO BID bowels 01/30/25 Hospital Course Operations total hip replacement Summary of Care Provided Hospital Course: Patient is a 79-year-old male who has had ongoing right hip pain for several years. After failing conservative measures, the patient opted to proceed with a direct anterior right total hip arthroplasty. The patient underwent the above- stated procedure on January 26, 2025. Patient did receive perioperative antibiotics. Intraoperatively was uneventful. For details please see dictated operative note. The patient was placed in thigh-high teds, bilateral SCDs, remained stable in recovery. Patient was admitted to the 3rd floor at [facility]. The patient's pain was managed with the use of IV and p.o. pain medications. Patient participated in physical therapy. Patient was discharged on postoperative day # 4 to transitional care unit at [facility]. Patient did sustain a fall out of bed when he was unattended on January 29, 2025. X-rays were obtained which did not reveal any acute finding for fracture. Patient has been tolerating therapy. Patient does have Alzheimer dementia in which she has baseline confusion. Patient was given medications stated below. Patient will continue on extra-strength Tylenol and oxycodone for primary pain control. We are avoiding nonsteroidal anti-inflammatories due to his cardiac history. He is on aspirin 81 mg twice daily for 4 weeks postoperatively. He will continue with the BOB hose for 2 weeks postoperatively. Patient will follow up with [facility] per postop instructions for reassessment. Weight / BMI Weight Weight: 87.2 kg Body Mass Index (BMI) 26.8 ABG / Lab / Microbiology Data 01/29/25 09:33 01/29/25 09:33 Microbiology: Microbiology 01/20/25 14:55 Swab (Method) Nasal Screen MRSA/MSSA - Final Radiography Diagnostic Testing: Radiology Impression Hip/Pelvis X-Ray 01/29/25 22:20 IMPRESSION: No acute fracture or dislocation appreciated. Right hip arthroplasty with intact hardware. Reading Location: [id number] D/C Instructions May shower in (days): 1 (only if incision is dry and without drainage. Do NOT soak/submerge in tub/pool/charles/stream/hot tub.)) Ice area for (Minutes): 20 (Every 1-2 hours while [address] barrier between ice and skin.) Weight Bearing Status: Weight bearing as tolerated (With walker at all times) Keep extremity elevated above heart level: Operative Extremity Additional Activity Instructions: Follow [facility] Post-op Instructions. Once postoperative dressing has been removed only use gentle soap and water over the incision. Do not use any ointments, Neosporin, salves, alcohol pads over the incision for 6 weeks postoperatively. Do not submerge underwater for 6 weeks postoperatively. Wear elastic stockings for 2 weeks. Do NOT use alcohol with narcotic pain medication. Do NOT make important decisions while taking narcotic medication. If you have problems with taking your medication (rash, itching, nausea, etc.) call the office at once. Call your doctor if your incision/area has: Continuous Slow Oozing, Sudden Increased Bleeding, Increased Pain/ Swelling, Increased Redness and Foul Smelling Discharge Call your doctor if you observe: Fever of 101 or Higher, Shortness of breath, Chest pain, Calf discomfort and Uncontrolled pain Additional Dressing/Incision Instructions: Follow [facility] Post-op Instructions. Once postoperative dressing has been removed, only use gentle soap and water over the incision. Do not use any ointments, Neosporin, salves, alcohol pads over the incision for 6 weeks postoperatively. Do not submerge underwater for 6 weeks postoperatively. Continue with BOB hose/elastic stockings for 2 weeks postoperatively. May remove at nighttime but needs to be placed back on the leg during the day. Do NOT use alcohol with narcotic pain medication. Do NOT make important decisions while taking narcotic medication. If you have problems with taking your medication (rash, itching, nausea, etc.) call the office at once. DC O2, CPAP, BIPAP Needs Home O2 Discharge instructions: No Meaningful Use Info Meaningful Use Meaningful Use Diagnoses (Choose all that apply): None applicable Discharge Plan Admission Admit Date/Time: 01/26/25 07:44 Attending Provider: Aurelio Sweeney Primary Care Provider: Moiz Tobias Consulting Providers: Matthew Snow Discharge Orders/Prescriptions Prescriptions: New acetaminophen 500 mg Tablet 1,000 mg PO Q8 14 Days Qty: 0 0RF Rx Instructions: Do not take more than 3000 mg Tylenol in a 24-hour period. aspirin 81 mg Tablet,Chewable 81 mg PO BID 30 Days Qty: 0 0RF Rx Instructions: Take 81 mg aspirin twice daily for 4 weeks postoperatively for DVT prophylaxis. Patient denies past history of DVT or pulmonary embolism. oxycodone 5 mg Tablet 5 - 10 mg PO Q4H PRN PRN (Reason: as needed for pain) 7 Days Qty: 30 0RF Continued donepezil 5 mg tablet 10 mg PO DAILY fluticasone propionate 50 mcg/actuation spray,suspension 2 spray INTRANASAL DAILY PRN PRN (Reason: nasal congestion) Patient Comments: [NO ORIGINAL SIG] atorvastatin 40 mg tablet 80 mg PO DAILY cyanocobalamin (vitamin B-12) 1,000 mcg tablet 1,000 mcg PO DAILY cholecalciferol (vitamin D3) [Vitamin D3] 25 mcg (1,000 unit) capsule 25 mcg PO DAILY sennosides-docusate sodium [Senna Plus] 8.6-50 mg tablet 1 tab-cap PO QHS PRN (Reason: supplement) ascorbic acid (vitamin C) [Vitamin C] 500 mg tablet 500 mg PO DAILY magnesium 200 mg tablet 400 mg PO DAILY tamsulosin 0.4 mg capsule 0.4 mg PO BID metoprolol succinate 25 mg tablet extended release 24 hr 12.5 mg PO BID Patient Comments: [NO ORIGINAL SIG] potassium chloride [Klor-Con] 20 mEq packet 20 meq PO DAILY PRN (Reason: WITH USE OF LASIX) furosemide [Lasix] 40 mg tablet 20 mg PO .QD PRN (Reason: edema) brimonidine 0.2 % drops 1 drp ophthalmic (eye) BID casanthranol-docusate sodium 30-100 mg capsule 1 cap PO DAILY Florajen Digestion 15 billion cell capsule 1 cap PO DAILY folic acid 1 mg tablet 1 mg PO DAILY latanoprost 0.005 % drops 1 drp ophthalmic (eye) QHS melatonin 3 mg capsule 3 mg PO QHS PRN (Reason: sleep) memantine 5 mg tablet 5 mg PO DAILY polyethylene glycol 3350 [Miralax] 17 gram/dose powder 17 g PO DAILY PreserVision AREDS-2 250-90-40-1 mg capsule 1 tab PO BID ferrous sulfate [FeroSul] 325 mg (65 mg iron) tablet 325 mg PO DAILY pantoprazole [Protonix] 40 mg tablet,delayed release (DR/EC) 40 mg PO DAILY Qty: 30 3RF Discontinued aspirin 81 mg capsule 81 mg PO DAILY acetaminophen 500 mg capsule 1,000 mg PO Q8H PRN PRN (Reason: pain) No Action sennosides-docusate sodium [Stimulant Laxative Plus] 8.6-50 mg Tablet 2 tab-cap PO BID Rx Instructions: Take until first bowel movement, then as needed Referrals / Follow Up: Moiz Tobias MD [Primary Care Provider, [facility]] Danial Dennis PA-C [Med Staff - [facility] Prof, Orthopedics] - 02/09/25 9:15 am Disposition Disposition (needs filled in before D/C Order can be placed): [facility]
--- NOTE | 2025-02-02 10:34 | CASEMGMT ---
Received email from [employer] stating AOR form needed completed for the appeal to move forward. RN AUDELIA completed all portions except the top. TC to pt son Red, he is aware of signature needed for form. He requests this to be emailed. Emailed form to him and received back completed. Faxed completed form to [employer] at this time.
--- NOTE | 2025-02-03 09:51 | CASEMGMT ---
Received email from [employer] again stating that the AOR is needed before moving forward with pt appeal. Responded to email stating this information was faxed yesterday. TC to [employer], spoke to pharmacy services representative who transferred to the Appeals Department, unable to get to a live person. Refaxed the AOR sheet and received confirmation it was received, filed in chart.
--- NOTE | 2025-02-04 09:13 | CASEMGMT ---
Received an email from [employer] that POA papers need to be faxed or pt needs to sign AOR form. [email or web address] .
--- NOTE | 2025-02-06 15:11 | CASEMGMT ---
Addendum entered by Beverly Joseph 02/06/25 16:03: Faxed [facility]acie signed AOR by pt. Sent to . Original Note: Received vm from Gracie yesterday, KATELYN WIN not working this day, requesting that pt sign form even though POA papers were sent to them. Reprinted form, tc to [facility], spoke with Inez, tubed form and she will have pt sign and tube back. Received tc from Inez stating that pt signed his son's name which is why pt was not asked to sign initially d/t confusion. KATELYN WIN reprinted and tubed to Inez for pt signature again.
--- NOTE | 2025-02-07 10:59 | CASEMGMT ---
Received tc from Caro at [facility] stating they have received all documents needed and they will have an answer from the appeal today or tomorrow. She states they will leave a vm if this RN CM is not working.
--- NOTE | 2025-02-09 11:33 | CASEMGMT ---
Addendum entered by Beverly Joseph 02/09/25 11:43: Faxed auth letter to [facility] in TCU. Original Note: Received vm from Sigifredo guillen [facility] stating that the denial for SNF stay was overturned. Auth # [id number] from 01/29/25-02/13/25. Updated [facility] Vanda in admissions. TC to pt son, Red CEBALLOS, he is aware of this and that [facility] T[facility] was made aware. He denies any questions, he was very happy.
== END 2025-01-30 14:30 | disposition skilled nursing facility (03) ==
LOC: SDC 11:16 → MS3 11:16
PROVIDERS: Family Medicine; Student in an Organized Health Care Education/Training Program; Admitting Provider Specialist; PCP Family Medicine; Referring Provider Specialist; Visit Provider Specialist
PROC: (CPT 27284; principal; 2025-01-26 08:20)
DX: M16.11 Unilateral primary osteoarthritis, right hip (principal); I11.0 Hypertensive heart disease with heart failure; I27.20 Pulmonary hypertension, unspecified; I50.9 Heart failure, unspecified; G30.9 Alzheimer's disease, unspecified; F02.80 Dementia in other diseases classified elsewhere, unspecified severity, without behavioral disturbance, psychotic disturbance, mood disturbance, and anxiety; I48.0 Paroxysmal atrial fibrillation; E55.9 Vitamin D deficiency, unspecified; Z79.01 Long term (current) use of anticoagulants; I25.10 Atherosclerotic heart disease of native coronary artery without angina pectoris; Z79.899 Other long term (current) drug therapy; E78.00 Pure hypercholesterolemia, unspecified; Z95.1 Presence of aortocoronary bypass graft; G47.30 Sleep apnea, unspecified; H40.9 Unspecified glaucoma; D50.9 Iron deficiency anemia, unspecified; N40.1 Benign prostatic hyperplasia with lower urinary tract symptoms; N13.8 Other obstructive and reflux uropathy
CPT/HCPCS: 27130; 01214; 36415; 73501; 73502; 76000; 80048; 82962; 83735; 85025; 87081; 94668; 96361; 96365; 96366; 97116; 97162; 97166; 97530; 97535; 99221; C1776; A4216; G0378

== ENCOUNTER 2025-01-30 14:48 | Inpatient (IN) | payer MEDICARE, SELFPAY ==
[2024-07-24 13:20] VITALS: BMI 26.9
[2025-01-30 14:50] VITALS: BP 124/76; PULSE 65; PULSE 75; RESP 18; TEMP 36.8; O2SAT 99; BMI 27.3
--- NOTE | 2025-01-30 15:02 | HP.PCM_ITS ---
HPI - General General Date of Admission: 01/30/25 Date of Service: 01/30/25 Chief Complaint: Here for rehabilitation. HPI Narrative AMBER SNIDER, is a 79 Male who presents with followin01/26/2025 Admit [facility]. 01/26/2025 Dr. Sweeney performed right total hip arthroplasty. 01/26/2025 Pain controlled postoperatively. PT/OT. Hold Lasix. 01/27/2025 Confused, consider placement for rehab. Pain controlled. Aspirin 81mg twice daily x 4 weeks dvt prophylaxis. Tylenol 1000mg q8, Oxycodone prn pain. PT/OT/CM. 01/28/2025 Sitting in chair, pain controlled. Did better with PT, Increased confusion yesterday. Able to urinate with Tamsulosin. Discharge to SNF. 01/29/2025 Metoprolol held for Hypotension. PT/OT SNF. Insurance denied SNF despite peer to peer. May private pay. 01/30/2025 Pain controlled. No acute events overnight. Alert and oriented x 3, mild confusion. PT/OT TCU. Aspirin 81mg twice daily thru 02/26/2025 DVT prophylaxis. Tylenol 1000mg q8, oxycodone prn for pain control. WBAT with walker, PT. 01/30/2025 Admit to TCU with debility, here for rehabilitation, strengthening, prior to discharge home to [facility] Medical History Hyperlipidemia BPH (benign prostatic hyperplasia) History of IBS History of GI bleed Sleep apnea History of edema History of CHF (congestive heart failure) History of echocardiogram History of stress test Cardiology follow-up encounter Lives in assisted living facility Wears glasses Anxiety Alcohol use History of renal disease Arthritis Anemia Syncope History of ulceration Non-smoker History of pain when walking Dementia Colon polyps Macular degeneration Hypertension Home Medications ?Medication ?Instructions ?Recorded ?Last Taken ?Type donepezil 5 mg tablet 10 mg PO DAILY mind 06/04/23 01/26/25 History fluticasone propionate 50 2 spray intranasal DAILY PRN PRN 09/28/23 01/25/25 History mcg/actuation nasal nasal congestion spray,suspension ascorbic acid (vitamin C) 500 mg 500 mg PO DAILY suppl ement 03/27/24 03/30/24 History tablet (Vitamin C) atorvastatin 40 mg tablet 80 mg PO DAILY cholesterol 0 03/27/24 01/25/25 History cholecalciferol (vitamin D3) 25 25 mcg PO DAILY supple ment 03/27/24 01/25/25 History mcg (1,000 unit) capsule (Vitamin D3) cyanocobalamin (vitamin B-12) 1,000 mcg PO DAILY suppl ement 03/27/24 01/25/25 History 1,000 mcg tablet furosemide 40 mg tablet (Lasix) 20 mg PO .QD PRN edema 03/27/24 01/25/25 History magnesium 200 mg tablet 400 mg PO DAILY supplement 0 03/27/24 01/25/25 History metoprolol succinate 25 mg 12.5 mg PO BID BP/pulse 08/1301/25/25 20:30 History tablet,extended release 24 hr potassium chloride 20 mEq oral 20 meq PO DAILY PRN WIT H USE OF 03/27/24 01/25/25 History packet (Klor-Con) LASIX sennosides 8.6 mg-docusate sodium 1 tab-cap PO QHS PRN supplement 03/27/24 01/25/25 History 50 mg tablet (Senna Plus) tamsulosin 0.4 mg capsule 0.4 mg PO BID bladder 01/26/25 History pantoprazole 40 mg tablet,delayed 40 mg PO DAILY reflu x #30 tabs 09/12/24 1210/13 Rx release (Protonix) L.acidophilus-B.animalis-B.longum 1 cap PO DAILY probi otic 01/01/25 01/25/25 History 15 billion cell capsule (Florajen Digestion) brimonidine 0.2 % eye drops 1 drp ophthalmic (eye) BID glaucoma 01/01/25 01/25/25 History casanthranol-docusate sodium 30 1 cap PO DAILY bowels 01/01/25 01/25/25 History mg-100 mg capsule ferrous sulfate 325 mg (65 mg 325 mg PO DAILY suppleme nt 01/01/25 01/25/25 History iron) tablet (FeroSul) folic acid 1 mg tablet 1 mg PO DAILY supplement 01/25/25 History latanoprost 0.005 % eye drops 1 drp ophthalmic (eye) Q HS eyes 01/01/25 01/25/25 History melatonin 3 mg capsule 3 mg PO QHS PRN sleep 01/25/25 History memantine 5 mg tablet 5 mg PO DAILY mind 01/01/25 01/26/25 History polyethylene glycol 3350 17 17 g PO DAILY bowels 01/0101/25/25 History gram/dose oral powder (Miralax) vit C 250 mg-vit E 90 mg-zinc 40 1 tab PO BID suppleme nt 01/01/25 01/25/25 History mg-copper 1 uv-pnaaas-rrrxam capsule (PreserVision AREDS-2) acetaminophen 500 mg tablet 1,000 mg (2 x 500 mg) PO Q 8 pain 01/30/25 Unknown Rx 14 days #0 tabs aspirin 81 mg chewable tablet 81 mg PO BID blood thinn er 30 days 01/30/25 Unknown Rx #0 tabs oxycodone 5 mg tablet 5 - 10 mg (1 - 2 x 5 mg) PO Q4H 01/30/25 Unknown Rx PRN PRN as needed for pain 7 days #30 tabs sennosides 8.6 mg-docusate sodium 2 tab-cap PO BID bow els 01/30/25 Unknown History 50 mg tablet (Stimulant Laxative Plus) Allergy/AdvReac Type Severity Reaction Status Date / Time No Known Allergies Allergy Verified 01/26/25 07:20 Family History Other CVA (cerebral vascular accident) Surgical History History of total right hip replacement Hx of colonoscopy Hx of rhinoplasty History of carpal tunnel surgery of right wrist History of carpal tunnel surgery of left wrist Hx of arthroscopic knee surgery Hx of microdiscectomy History of heart surgery Hx of inguinal hernia repair Hx of sinus surgery Hx of esophagogastroduodenoscopy Social History household members: none housing: other details: [facility]. Smoking Status: Never smoker alcohol intake: current alcohol intake frequency: holidays/special occasions only substance use type: does not use ROS Constitutional Constitutional: Reports weakness; Denies chills, fever(s) or weight gain ENT HEENT: Denies headache(s), nasal congestion or nasal discharge Cardiovascular Cardiovascular: Denies chest pain or palpitations Respiratory/Chest Respiratory/Chest: Denies cough, excessive phlegm production or shortness of breath with exertion Gastrointestinal Gastrointestinal: Denies abdominal pain, nausea or vomiting Genitourinary Genitourinary: Denies dysuria Musculoskeletal Musculoskeletal: Denies joint pain or joint swelling Integumentary Integumentary: Denies rash or wounds Neurologic Neurologic: Denies focal weakness, numbness or tingling Psychiatric Psychiatric: Denies anxiety, auditory hallucinations, depression, homicidal ideation or suicidal ideation Physical Exam Const alert General Appearance: cooperative HEENT normocephalic Eyes PERRL and EOMs intact bilaterally Neck supple, no JVD and no carotid bruits Resp normal respiratory effort, normal air movement and clear to auscultation bilaterally Cardio regular rate and regular rhythm GI normal to inspection, nondistended, normoactive bowel sounds, non-tender and non-distended Extremity normal capillary refill General Extremity: Negative for edema Skin no rashes or lesions noted General Skin Exam: no breakdown Psych affect normal Appearance: appropriate Assessment & Plan Assessment/Plan (1) Debility: (2) Osteoarthritis of right knee: QUALIFIERS: Osteoarthritis type: primary Qualified Code(s): M17.11 - Unilateral primary osteoarthritis, right knee (3) Status post right hip replacement: (4) Essential (primary) hypertension: (5) Hyperlipidemia: QUALIFIERS: Hyperlipidemia type: unspecified Qualified Code(s): E78.5 - Hyperlipidemia, unspecified (6) GERD (gastroesophageal reflux disease): (7) Hypokalemia: (8) BPH (benign prostatic hyperplasia): QUALIFIERS: Lower urinary tract symptom presence: unspecified whether lower urinary tract symptoms present Qualified Code(s): N40.0 - Benign prostatic hyperplasia without lower urinary tract symptoms (9) Glaucoma: (10) Alzheimer disease: (11) Allergic rhinitis: (12) Coronary artery disease: (13) Atrial fibrillation: PLAN: Plan 79 year old male with below past medical history underwent right total hip replacement 01/26/[address] Sweeney, postoperative course uncomplicated, admitted to TCU with debility, here for rehabilitation, strengthening[facility] * Debility - PT/OT. * Pain - Tylenol 1000mg q8, Oxycodone 5mg q4 prn pain (1-10). * Bowel - Miralax 17gm daily, senna/colace 2 tablets bid, Magnesium citrate 300mL daily prn, Dulcolax 10mg pr daily prn. * Adult immunization - Administer pneumonia vaccine, covid vaccine, flu vaccine as appropriate. * DVT prophylaxis - Aspirin 81mg twice daily thru 02/27/2025. * Iron deficiency anemia - Ferrous sulfate 325mg daily, Vitamin C 500mg daily. * Hyperlipidemia - Atorvastatin 80mg qhs. * Glaucoma - Brimonidine 1gtt ou bid, Latanoprost 1gtt ou qhs. * Macular Degeneration - Healthy Eyes 1 capsule bid. * Vitamin D deficiency - Vitamin D3 25mcg daily, D level. * Vitamin B12 deficiency - Vitamin B12 1000mcg daily. * Alzheimer Disease - Donepezil 10mg daily, Memantine 5mg daily. * Allergic rhinitis - Flonase 2 sprays daily prn. * Folate deficiency - Folic acid 1mg daily. * GI prophylaxis - Lactobacillus 1 capsule daily. * Hypomagnesemia - Magnesium chloride 128mg daliy. * Insomnia - Melatonin 3mg qhs prn. * Coronary artery disease - Metoprolol succinate 12.5mg bid, Aspirin 81mg bid. * GERD - Pantoprazole 40mg daily. * BPH - Tamsulosin 0.4mg bid.
[2025-01-30 20:39] VITALS: BP 117/78; PULSE 73
[2025-01-30] MEDS: BRIMONIDINE 0.2% 5ML BOTTLE 1 DRP OPHTHALMIC (20:40)
[2025-01-30] MEDS: Multivitamin (Healthy Eyes) Capsule 1 CAP PO (20:41)
[2025-01-30 20:43] VITALS: BP 117/78; PULSE 73
[2025-01-30] MEDS: Metoprolol(XL)Succ 25 MG Tablet 12.5 MG PO (20:43)
[2025-01-30] MEDS: Latanoprost 0.005% 1 Bottle 1 DRP OPHTHALMIC (20:44)
[2025-01-30] MEDS: Senna/Docusate Sodium 1 Tablet 2 TABLET PO (20:46)
[2025-01-31 07:01] LABS: Hematocrit 33.1 % (40-54); Hemoglobin 10.7 g/dL (13.0-16.5); Immature Granulocytes Count 0.020 X10^3/uL (0.0-0.0); Mean Corp Hgb Conc 32.3 g/dL (32-36); Mean Corpuscular Volume 84.9 fL (80-94); Mean Platelet Vol. 11.0 fl (6.2-12.0); NRBC Flagged by Analyzer 0 % (0-5); Platelet Count 201 K/mm3 (150-450); RBC Distribution Width CV 16.5 % (11.6-14.6); RBC Distribution Width SD 51.3 fl (35.1-43.9); Red Blood Count 3.90 M/mm3 (4.6-6.2); White Blood Count 6.9 K/mm3 (4.4-11.0)
[2025-01-31 07:30] LABS: Anion Gap 10 (5-15); BUN 14 mg/dL (4-19); BUN/Creat Ratio 15.4 RATIO (10-20); Calcium,Total 8.7 mg/dL (7.6-11.0); Carbon Dioxide 23.5 mmol/L (21.0-32.0); Chloride 106 mmol/L (98-108); Estimated Creatinine Clearance 74.87 ml/min (50-250); Glucose 100 mg/dL (70-99); Potassium 4.3 mmol/L (3.3-5.1)
[2025-01-31] MEDS: BRIMONIDINE 0.2% 5ML BOTTLE 1 DRP OPHTHALMIC ×2 (07:49→22:35)
[2025-01-31] MEDS: Ensure Plus High Protein 120 ML LIQUID PO ×3 (07:57→17:23)
[2025-01-31 07:58] VITALS: PULSE 65
[2025-01-31] MEDS: Cholecalciferol (VIT D3) 25 MCG TABLET (1,000 UNITS) PO (07:58)
[2025-01-31] MEDS: Metoprolol(XL)Succ 25 MG Tablet 12.5 MG PO ×2 (07:58→22:37)
[2025-01-31] MEDS: Memantine Hydrochloride 5 MG Tablet PO (07:58)
[2025-01-31] MEDS: Lactobacillis Acidophilus 1 CAP PO (07:59)
[2025-01-31] MEDS: Magnesium Chloride 64 MG Delay Rel.Tablet 128 MG PO (07:59)
[2025-01-31] MEDS: Multivitamin (Healthy Eyes) Capsule 1 CAP PO ×2 (08:03→22:35)
[2025-01-31] MEDS: Senna/Docusate Sodium 1 Tablet 2 TABLET PO ×2 (08:03→22:35)
[2025-01-31] MEDS: 0.9% Saline Lock 10 ML Syringe IV ×2 (08:04→22:35)
[2025-01-31 08:13] VITALS: BP 129/77; PULSE 65; RESP 16; TEMP 36.9; O2SAT 95
[2025-01-31] MEDS: Tuberculin,Purif.prot.deriv. 50 TU/ML Vial 0.1 ML ID (11:33)
[2025-01-31 13:00] VITALS: BMI 27.4
[2025-01-31] MEDS: Latanoprost 0.005% 1 Bottle 1 DRP OPHTHALMIC (22:35)
[2025-01-31] MEDS: MELATONIN 3 MG TABLET PO (22:35)
[2025-01-31 22:37] VITALS: BP 113/69; PULSE 62
[2025-01-31 22:45] VITALS: BP 113/69; PULSE 62
[2025-02-01] MEDS: Ensure Plus High Protein 120 ML LIQUID PO ×3 (06:44→17:10)
[2025-02-01 09:16] VITALS: BP 92/50; PULSE 69; RESP 16; TEMP 36.6; O2SAT 95
[2025-02-01 09:18] VITALS: PULSE 69
[2025-02-01] MEDS: Lactobacillis Acidophilus 1 CAP PO (09:19)
[2025-02-01] MEDS: Multivitamin (Healthy Eyes) Capsule 1 CAP PO ×2 (09:19→20:49)
[2025-02-01] MEDS: Magnesium Chloride 64 MG Delay Rel.Tablet 128 MG PO (09:19)
[2025-02-01] MEDS: Cholecalciferol (VIT D3) 25 MCG TABLET (1,000 UNITS) PO (09:20)
[2025-02-01] MEDS: BRIMONIDINE 0.2% 5ML BOTTLE 1 DRP OPHTHALMIC ×2 (09:20→20:48)
[2025-02-01] MEDS: Memantine Hydrochloride 5 MG Tablet PO (09:20)
[2025-02-01] MEDS: Senna/Docusate Sodium 1 Tablet 2 TABLET PO ×2 (09:22→20:48)
[2025-02-01] MEDS: 0.9% Saline Lock 10 ML Syringe IV ×2 (09:25→20:48)
[2025-02-01 14:13] VITALS: BMI 27.6
[2025-02-01] MEDS: MELATONIN 3 MG TABLET PO (20:48)
[2025-02-01] MEDS: Latanoprost 0.005% 1 Bottle 1 DRP OPHTHALMIC (20:48)
[2025-02-01 20:49] VITALS: BP 140/88; PULSE 65
[2025-02-01] MEDS: Metoprolol(XL)Succ 25 MG Tablet 12.5 MG PO (20:49)
[2025-02-01 20:56] VITALS: PULSE 65; RESP 16
[2025-02-01 21:00] VITALS: BP 140/88; PULSE 65
[2025-02-02 06:00] VITALS: BMI 27.0
[2025-02-02] MEDS: Ensure Plus High Protein 120 ML LIQUID PO ×3 (06:28→18:02)
[2025-02-02 06:29] VITALS: PULSE 62; RESP 16; O2SAT 99
[2025-02-02 08:38] VITALS: BP 111/60; PULSE 69; RESP 18; TEMP 36.1; O2SAT 97
[2025-02-02 08:39] VITALS: PULSE 69
[2025-02-02] MEDS: Metoprolol(XL)Succ 25 MG Tablet 12.5 MG PO ×2 (08:39→20:33)
[2025-02-02] MEDS: Magnesium Chloride 64 MG Delay Rel.Tablet 128 MG PO (08:40)
[2025-02-02] MEDS: Cholecalciferol (VIT D3) 25 MCG TABLET (1,000 UNITS) PO (08:40)
[2025-02-02] MEDS: Memantine Hydrochloride 5 MG Tablet PO (08:40)
[2025-02-02] MEDS: Lactobacillis Acidophilus 1 CAP PO (08:40)
[2025-02-02] MEDS: Multivitamin (Healthy Eyes) Capsule 1 CAP PO ×2 (08:40→20:32)
[2025-02-02] MEDS: Senna/Docusate Sodium 1 Tablet 2 TABLET PO ×2 (08:41→20:32)
[2025-02-02] MEDS: BRIMONIDINE 0.2% 5ML BOTTLE 1 DRP OPHTHALMIC ×2 (08:42→20:31)
[2025-02-02] MEDS: 0.9% Saline Lock 10 ML Syringe IV (08:46)
--- NOTE | 2025-02-02 11:17 | CASEMGMT ---
Social Work SW met with patient to complete initial assessment. Introduced self and role. Verified contacts. Patient confirmed code status as full code. Pt was denied [employer] precert to admit. Pt appealed on acute, and admitted to TCU self-pay. Pt resides at [facility]. SW will continue to follow to assist with DC planning. Libra Bey [employer]
[2025-02-02 20:30] VITALS: BP 119/76; PULSE 66; RESP 16; O2SAT 97
[2025-02-02 20:33] VITALS: BP 119/76; PULSE 66
[2025-02-02] MEDS: Latanoprost 0.005% 1 Bottle 1 DRP OPHTHALMIC (20:35)
[2025-02-03] MEDS: MELATONIN 3 MG TABLET PO ×2 (01:14→19:38)
[2025-02-03 06:00] VITALS: BMI 26.9
[2025-02-03 08:02] VITALS: BP 114/74; PULSE 77; RESP 18; TEMP 36.6; O2SAT 95
[2025-02-03] MEDS: Magnesium Chloride 64 MG Delay Rel.Tablet 128 MG PO (08:03)
[2025-02-03] MEDS: Ensure Plus High Protein 120 ML LIQUID PO ×2 (08:03→12:07)
[2025-02-03 08:04] VITALS: PULSE 77
[2025-02-03] MEDS: Cholecalciferol (VIT D3) 25 MCG TABLET (1,000 UNITS) PO (08:04)
[2025-02-03] MEDS: Memantine Hydrochloride 5 MG Tablet PO (08:04)
[2025-02-03] MEDS: Metoprolol(XL)Succ 25 MG Tablet 12.5 MG PO ×2 (08:04→19:41)
[2025-02-03] MEDS: Multivitamin (Healthy Eyes) Capsule 1 CAP PO ×2 (08:04→19:40)
[2025-02-03] MEDS: Senna/Docusate Sodium 1 Tablet 2 TABLET PO ×2 (08:05→19:39)
[2025-02-03] MEDS: Lactobacillis Acidophilus 1 CAP PO (08:05)
[2025-02-03] MEDS: BRIMONIDINE 0.2% 5ML BOTTLE 1 DRP OPHTHALMIC ×2 (08:06→19:41)
--- NOTE | 2025-02-03 10:08 | PCM.PN.DRR ---
Documented by User: Selma Sage 02/03/25 11:09 TCU RX Drug Regimen Review Subjective/Objective Subjective/Objective Subjective: TCU Admission. 79 YOM presented for right hip arthroplasty. Underwent right total hip replacement 01/26/[address] Sweeney, postoperative course uncomplicated. Admitted to TCU with debility for strengthening and rehabilitation. Objective: Allergies No Known Allergies Allergy (Verified 01/26/25 07:20) Current Medications Generic Name Dose Route Start Last Admin Trade Name Freq PRN Reason Stop Dose Admin Acetaminophen 1,000 mg 01/30/25 22:00 02/03/25 05:36 Acetaminophen 500 Mg Tablet PO 1,000 mg Q8 SONIDO Administration Ascorbic Acid 500 mg 01/31/25 10:00 02/03/25 08:04 Ascorbic Acid 500 Mg Tablet PO 500 mg DAILY SONIDO Administration Aspirin 81 mg 01/30/25 22:00 02/03/25 08:04 Aspirin 81 Mg Tab.Chew PO 02/27/25 22:01 81 mg BID SONIDO Administration Atorvastatin Calcium 80 mg 01/31/25 10:00 02/03/25 08:05 Atorvastatin Calcium 80 Mg Tablet PO 80 mg DAILY SONIDO Administration Bisacodyl 10 mg 01/30/25 15:13 Bisacodyl 10 Mg Suppository RC DAILY PRN PRN Constipation Brimonidine Tartrate 1 drp 01/30/25 22:00 02/03/25 08:06 Brimonidine 0.2% 5ml Bottle OPHTHALMIC 1 drp BID SONIDO Administration Cholecalciferol 25 mcg 01/31/25 10:00 02/03/25 08:04 Cholecalciferol (Vit D3) 25 Mcg Tablet (1,000 Units) PO 25 mcg DAILY SONIDO Administration Cyanocobalamin (Vitamin B12) 1,000 mcg 01/31/25 10:00 02/03/25 08:04 Cyanocobalamin 500 Mcg Tablet PO 1,000 mcg DAILY SONIDO Administration Donepezil HCl 10 mg 01/31/25 10:00 02/03/25 08:04 Donepezil Hcl 10 Mg Tablet PO 10 mg DAILY SONIDO Administration Ferrous Sulfate 325 mg 01/31/25 12:00 02/02/25 14:05 Ferrous Sulfate 325 Mg Tablet PO 325 mg DAILY@1200 SONIDO Administration Fluticasone Propionate 2 spray 01/30/25 15:02 Fluticasone 0.05% 1 [place] Nasal.Sry NASAL DAILY PRN PRN NASAL CONGESTION Folic Acid 1 mg 01/31/25 08:00 02/03/25 08:05 Folic Acid 1 Mg Tablet PO 1 mg BREAKFAST SONIDO Administration Latanoprost 1 drp 01/30/25 22:00 02/02/25 20:35 Latanoprost 0.005% 1 Bottle OPHTHALMIC 1 drp QHS SONIDO Administration Magnesium Chloride 128 mg 01/31/25 10:00 02/03/25 08:03 Magnesium Chloride 64 Mg Delay Rel.Tablet PO 128 mg DAILY SONIDO Administration Magnesium Citrate 300 ml 01/30/25 15:13 Magnesium Citrate 300 Ml PO X1 PRN Constipation Melatonin 3 mg 01/30/25 15:02 02/03/25 01:14 Melatonin 3 Mg Tablet PO 3 mg QHS PRN Administration SLEEP Memantine 5 mg 01/31/25 10:00 02/03/25 08:04 Memantine Hydrochloride 5 Mg Tablet PO 5 mg DAILY SONIDO Administration Metoprolol Succinate 12.5 mg 01/30/25 22:00 02/03/25 08:04 Metoprolol(Xl)Succ 25 Mg Tablet PO 12.5 mg BID SONIDO Administration Protocol Multivitamins/Minerals 1 cap 01/30/25 22:00 02/03/25 08:04 Multivitamin (Healthy Eyes) Capsule PO 1 cap BID SONIDO Administration Nutritional Formula (Lactose Free) 120 ml 01/31/25 07:45 02/03/25 08:03 Ensure Plus High Protein 120 Ml Liquid PO 120 ml TIDCM SONIDO Administration Oxycodone HCl 5 mg 01/30/25 15:29 Oxycodone 5 Mg Tablet PO Q4H PRN PRN Pain Score 1-10 or Pre PT/OT Pantoprazole Sodium 40 mg 01/31/25 10:00 02/03/25 08:04 Pantoprazole Sodium 40 Mg Tablet PO 40 mg DAILY SONIDO Administration Polyethylene Glycol 17 gm 01/31/25 10:00 02/03/25 08:05 Polyethylene Glycol 3350 17 Gm Packet PO Not Given DAILY SONIDO Senna/Docusate Sodium 2 tablet 01/30/25 22:00 02/03/25 08:05 Senna/Docusate Sodium 1 Tablet PO 2 tablet BID SONIDO Administration Sodium Chloride 10 - 40 ml 01/30/25 14:53 02/02/25 08:46 0.9% Saline Lock 10 Ml Syringe IV 10 ml UD PRN Administration SALINE FLUSH Tamsulosin HCl 0.4 mg 01/30/25 22:00 02/03/25 08:05 Tamsulosin Hcl 0.4 Mg Capsule PO 0.4 mg BID SONIDO Administration Tuberculin PPD 0.1 ml 02/07/25 10:00 Tuberculin,Purif.Prot.Deriv. 50 Tu/Ml Vial ID 02/07/25 10:01 X1 ONE Problem List Atrial fibrillation (Acute) Coronary artery disease (Acute) Allergic rhinitis (Acute) Alzheimer disease (Acute) Glaucoma (Acute) BPH (benign prostatic hyperplasia) (Acute) Hypokalemia (Acute) GERD (gastroesophageal reflux disease) (Acute) Hyperlipidemia (Acute) Essential (primary) hypertension (Acute) Debility (Acute) Status post right hip replacement (Acute) Osteoarthritis of right knee (Acute) Vital Signs Temp Pulse Resp BP Pulse Ox O2 Del Method 97.8 F 77 18 114/74 95 Room Air 02/03/25 08:02 02/03/25 08:04 02/03/25 08:02 02/03/25 08:02 02/03/25 08:02 02/03/25 08:02 Oxygen Delivery Method Room Air Weight: 87.634 kg Body Mass Index (BMI) 27.0 Sodium 140 mmol/L (133-145) 01/31/25 06:47 Potassium 4.3 mmol/L (3.3-5.1) 01/31/25 06:47 Chloride 106 mmol/L (98-108) 01/31/25 06:47 Carbon Dioxide 23.5 mmol/L (21.0-32.0) 01/31/25 06:47 Anion Gap 10 (5-15) 01/31/25 06:47 BUN 14 mg/dL (4-19) 01/31/25 06:47 Creatinine 0.88 mg/dL (0.70-1.20) 01/31/25 06:47 Est GFR (MDRD) Non-Af 89 (>60) 01/31/25 06:47 BUN/Creatinine Ratio 15.4 RATIO (10-20) 01/31/25 06:47 Glucose 100 mg/dL (70-99) H 01/31/25 06:47 Assessment/Plan: 1. Pain: acetaminophen 1000mg PO Q8 and oxycodone 5mg PO Q4H PRN pain 1-10. Resident has not used any prn doses at this time. Last LFTs:05/2023. Check LFTs if resident develops symptoms of hepatoxicity. Consider monitoring LFTs if patient using > 3 gm/day of acetaminophen for prolonged period. Do not exceed 4000 mg in 24 hours. Monitor pain scores before/after prn administration for response, PRN pain medication usage, symptoms of pain/resident distress and ability to participate in therapy. 2. Bowel: Miralax 17gm PO daily, senna/docusate 2T PO BID, magnesium citrate 300mL PO daily PRN constipation and bisacodyl 10mg RC daily PRN constipation. Resident has not used any prn doses at this time. Resident has refused all doses of Miralax. Please consider changing to PRN constipation. Thanks. Last document bowel movement:02/01/25. Monitor for usage of prn medications, abdominal pain, frequency of bowel movements, diarrhea. Recommend holding bowel regimen if resident develops diarrhea. 3. DVT prophylaxis: aspirin 81mg PO BID thru 02/27/25. Please continue to monitor for S/S of bleeding/DVT, hemoglobin (last 10.7g/dL) and upset stomach. 4. Iron deficiency anemia: ferrous sulfate 325mg PO daily and ascorbic acid 500mg PO daily. Please continue to monitor hemoglobin (last 10.7g/dL), dark stools and constipation. 5. CAD: metoprolol succinate 12.5mg PO BID and aspirin 81mg PO BID. Monitor for bradyarrhythmia, fatigue, sleep disturbance and for new/worsening heart failure symptoms. For diabetic patients, monitor glucose. Monitor for chest pain, shortness of breath, exercise tolerance, BP (range since admission = 111/60-140/88). 6. Hyperlipidemia: atorvastatin 80mg PO QHS. No lipid panel on file. Please consider FLP to determine efficacy of current lipid-lowering regimen. Thanks. Please continue to monitor for muscle pain. 7. Alzheimer disease: donepezil 10mg PO daily and memantine 5mg PO daily. Please continue to monitor for S/S of Alzheimer and GI side effects. 8. Glaucoma/macular degeneration: brimonidine 0.2% 1gtt OU BID, latanoprost 0.005% 1 gtt OU QHS and healthy eyes 1C PO BID. Please continue to monitor for S/S of glaucoma and eye irritation. 9. GERD: pantoprazole 40mg PO daily. Monitor for diarrhea (consider possibility of C. diff if develops). Consider serum magnesium level and B12 level with long-term use if indicated. If clinically appropriate, consider dose reduction/weaning of medication due to penitentiary risks of C. diff and fractures ([place]). 10. BPH: tamsulosin 0.4mg PO BID. Please continue to monitor for S/S of BPH and BP. 11. Allergic rhinitis: fluticasone nasal spray 1 spray daily PRN nasal congestion. Resident has not used any prn doses at this time. Please continue to monitor for PRN usage and allergies. 12. Insomnia: melatonin 3mg PO QHS PRN insomnia. Resident has had 3 PRN doses so far. Please continue to monitor for improvement in insomnia and excessive daytime drowsiness. 13. Vitamin D/B12/folate deficiencies: cholecalciferol 25mcg PO daily, cyanocobalamin 1000mcg PO daily and folic acid 1mg PO daily. Please consider ordering a vitamin D as there is no level in the chart. Thanks. 14. GI prophylaxis: lactobacillus 1C PO daily. Please continue to monitor for diarrhea and constipation. 15. Hypomagnesemia: magnesium chloride 128mg PO daily. Please continue to monitor magnesium (last 01/20/25 2.6mg/dL). Assessment/Plan for indications treated with psychotropic medications: Resident is not prescribed scheduled or prn psychotropic medications at the time of this drug regimen review. Medical chart and medication regimen reviewed. The following medication irregularities or issues were identified: 1. Miralax 17gm PO daily. Resident has refused all doses of Miralax. Please consider changing to PRN constipation. Thanks. 2. Atorvastatin 80mg PO QHS. No lipid panel on file. Please consider FLP to determine efficacy of current lipid-lowering regimen. Thanks. 3. Cholecalciferol 25mcg PO daily. Please consider ordering a vitamin D as there is no level in the chart. Thanks. Date Date of Note: 02/03/25 Documented by User: Dr. Reynaldo Archibald MD 02/03/25 12:22 TCU RX Drug Regimen Review Provider Comments Provider responsibility Provider Comments to Recommendations by Pharmacy Agree
[2025-02-03 19:41] VITALS: PULSE 67
[2025-02-03] MEDS: Latanoprost 0.005% 1 Bottle 1 DRP OPHTHALMIC (19:41)
[2025-02-04 07:04] LABS: Cholesterol 130 mg/dL (<=200); Low Density Lipoprotein Calc. 75 mg/dL; Triglycerides 120 mg/dL; Very Low Density Lipoprotein 24 mg/dL (5-40); Vitamin D,25 Hydroxy 18.6 ng/mL (30-100); cholesterol:hdl ratio screen 3.92
[2025-02-04 08:29] VITALS: BP 93/58; PULSE 71; RESP 17; TEMP 35.8; O2SAT 98
[2025-02-04 08:34] VITALS: PULSE 71
[2025-02-04] MEDS: BRIMONIDINE 0.2% 5ML BOTTLE 1 DRP OPHTHALMIC ×2 (08:34→20:27)
[2025-02-04] MEDS: Memantine Hydrochloride 5 MG Tablet PO (08:35)
[2025-02-04] MEDS: Senna/Docusate Sodium 1 Tablet 2 TABLET PO ×2 (08:35→20:26)
[2025-02-04] MEDS: Multivitamin (Healthy Eyes) Capsule 1 CAP PO ×2 (08:35→20:26)
[2025-02-04] MEDS: Magnesium Chloride 64 MG Delay Rel.Tablet 128 MG PO (08:35)
[2025-02-04] MEDS: Cholecalciferol (VIT D3) 25 MCG TABLET (1,000 UNITS) PO (08:35)
[2025-02-04] MEDS: Lactobacillis Acidophilus 1 CAP PO (08:35)
[2025-02-04] MEDS: Ensure Plus High Protein 120 ML LIQUID PO ×3 (08:37→16:09)
[2025-02-04 08:43] VITALS: PULSE 71; RESP 15; O2SAT 98
[2025-02-04] MEDS: Polyethylene Glycol 3350 17 GM PACKET PO (08:50)
--- NOTE | 2025-02-04 09:09 | CASEMGMT ---
Social Work IDT met with patient and son for care plan meeting. Discussed patient's progress in PT/OT/ST/SN/RDN. [facility]. SW clarified with son that he appealed but no determination has been given yet. SW educated to notify this worker, if pt is still admitted, on outcome, as IDT agrees pt meets skilled criteria and can submit for precert but not while appeal is pending. Son expressed understanding and appreciative. Son and therapy spoke yesterday that pt may do better in his environment and to hire 24/7 hours of aides to assist at [facility]. Son agreed that is going to be a discussion with pt/family and [facility]. Pt was a level I, independent, prior and [facility] may not be able to assist at a higher level of care currently, thus the need for private duty aides, per son. SW to send updates to [facility] with pt's LOC and provided son with list of lunchroom aide agencies. Son discussed his siblings will be in town for [place] and likely will want pt DC'd prior to the holiday. SW noted and can coordinate skilled HHC for PT/OT, but requested son provide notice to this worker when they choose a DC date. Son agreed. SW will continue to follow. Libra Bey MSW GENERAL CAR SUPERVISOR YARD
--- NOTE | 2025-02-04 11:48 | CASEMGMT ---
Discharge Planning Updates faxed to Ed MUSTAFA ([phone]). Fax confirmation rec'd. Arlyn Stanford DC Planning Asst.
[2025-02-04 11:52] VITALS: BMI 26.7
[2025-02-04 11:59] VITALS: BP 103/60; PULSE 68
--- NOTE | 2025-02-04 14:58 | NURSING ---
pt getting up without assist, alarm sounding. pt assisted to common area per his request with his laptop & phone. alarm in place to chair. call thibodeaux on table in pt reach.
--- NOTE | 2025-02-04 16:40 | NURSING ---
pt in common area alarm sounding, pt standing, assisted pt to BR sat on toilet and immediately started voiding. pt c/o some pain but unable to rate it on scale. visual facial grimmacing & limping worsee noted with ambulation to BR
[2025-02-04] MEDS: Latanoprost 0.005% 1 Bottle 1 DRP OPHTHALMIC (20:28)
[2025-02-04 20:32] VITALS: BP 133/78; PULSE 70
[2025-02-04] MEDS: Metoprolol(XL)Succ 25 MG Tablet 12.5 MG PO (20:32)
[2025-02-05 09:07] VITALS: BP 93/53; PULSE 74; RESP 18; TEMP 36.4; O2SAT 98
[2025-02-05] MEDS: Ensure Plus High Protein 120 ML LIQUID PO ×2 (09:14→12:26)
[2025-02-05] MEDS: Lactobacillis Acidophilus 1 CAP PO (09:14)
[2025-02-05] MEDS: Multivitamin (Healthy Eyes) Capsule 1 CAP PO ×2 (09:15→22:07)
[2025-02-05] MEDS: Magnesium Chloride 64 MG Delay Rel.Tablet 128 MG PO (09:15)
[2025-02-05] MEDS: Memantine Hydrochloride 5 MG Tablet PO (09:16)
[2025-02-05] MEDS: Cholecalciferol (VIT D3) 25 MCG TABLET (1,000 UNITS) PO (09:16)
[2025-02-05] MEDS: BRIMONIDINE 0.2% 5ML BOTTLE 1 DRP OPHTHALMIC ×2 (09:17→22:08)
[2025-02-05] MEDS: Senna/Docusate Sodium 1 Tablet 2 TABLET PO ×2 (09:21→22:07)
[2025-02-05 10:55] VITALS: BMI 26.4
[2025-02-05 22:00] VITALS: PULSE 60; RESP 16; O2SAT 98
[2025-02-05 22:09] VITALS: BP 107/66; PULSE 60
[2025-02-05] MEDS: Metoprolol(XL)Succ 25 MG Tablet 12.5 MG PO (22:09)
[2025-02-05] MEDS: Latanoprost 0.005% 1 Bottle 1 DRP OPHTHALMIC (22:11)
[2025-02-06 06:00] VITALS: BMI 26.5
[2025-02-06 10:46] VITALS: BP 112/71; PULSE 99; RESP 18; TEMP 37; O2SAT 94
[2025-02-06] MEDS: Ensure Plus High Protein 120 ML LIQUID PO ×3 (10:49→17:00)
[2025-02-06] MEDS: Lactobacillis Acidophilus 1 CAP PO (10:50)
[2025-02-06] MEDS: Multivitamin (Healthy Eyes) Capsule 1 CAP PO ×2 (10:51→21:08)
[2025-02-06] MEDS: Memantine Hydrochloride 5 MG Tablet PO (10:51)
[2025-02-06] MEDS: Magnesium Chloride 64 MG Delay Rel.Tablet 128 MG PO (10:51)
[2025-02-06] MEDS: Cholecalciferol (VIT D3) 25 MCG TABLET (1,000 UNITS) PO (10:51)
[2025-02-06] MEDS: Senna/Docusate Sodium 1 Tablet 2 TABLET PO ×2 (10:51→21:05)
[2025-02-06] MEDS: BRIMONIDINE 0.2% 5ML BOTTLE 1 DRP OPHTHALMIC ×2 (10:52→21:05)
[2025-02-06 14:19] LABS: Hematocrit 33.7 % (40-54); Hemoglobin 10.7 g/dL (13.0-16.5); Immature Granulocytes Count 0.060 X10^3/uL (0.0-0.0); Mean Corp Hgb Conc 31.8 g/dL (32-36); Mean Corpuscular Volume 87.3 fL (80-94); Mean Platelet Vol. 10.4 fl (6.2-12.0); NRBC Flagged by Analyzer 0 % (0-5); Platelet Count 349 K/mm3 (150-450); RBC Distribution Width CV 17.4 % (11.6-14.6); RBC Distribution Width SD 54.4 fl (35.1-43.9); Red Blood Count 3.86 M/mm3 (4.6-6.2); White Blood Count 11.1 K/mm3 (4.4-11.0)
--- NOTE | 2025-02-06 14:38 | CASEMGMT ---
Social Work SW completed BIMS (01/03) and PHQ-2 () for MDS assessment. Libra Bey COUNSELOR MANAGER CERTIFIED DRIVER EXAMINER
[2025-02-06 14:50] LABS: Anion Gap 12 (5-15); BUN 22 mg/dL (4-19); BUN/Creat Ratio 20.6 RATIO (10-20); Calcium,Total 9.3 mg/dL (7.6-11.0); Carbon Dioxide 24.4 mmol/L (21.0-32.0); Chloride 103 mmol/L (98-108); Estimated Creatinine Clearance 61.58 ml/min (50-250); Glucose 122 mg/dL (70-99); Potassium 4.6 mmol/L (3.3-5.1)
[2025-02-06] MEDS: Latanoprost 0.005% 1 Bottle 1 DRP OPHTHALMIC (21:05)
[2025-02-06] MEDS: MELATONIN 3 MG TABLET PO (21:05)
[2025-02-06 21:09] VITALS: BP 128/84; PULSE 70
[2025-02-06] MEDS: Metoprolol(XL)Succ 25 MG Tablet 12.5 MG PO (21:09)
[2025-02-07 06:00] VITALS: BMI 26.9
[2025-02-07] MEDS: Ensure Plus High Protein 120 ML LIQUID PO (07:56)
[2025-02-07] MEDS: Lactobacillis Acidophilus 1 CAP PO (07:57)
[2025-02-07] MEDS: Multivitamin (Healthy Eyes) Capsule 1 CAP PO (07:58)
[2025-02-07] MEDS: BRIMONIDINE 0.2% 5ML BOTTLE 1 DRP OPHTHALMIC (07:58)
[2025-02-07] MEDS: Memantine Hydrochloride 5 MG Tablet PO (07:59)
[2025-02-07] MEDS: Magnesium Chloride 64 MG Delay Rel.Tablet 128 MG PO (07:59)
[2025-02-07] MEDS: Cholecalciferol (VIT D3) 25 MCG TABLET (1,000 UNITS) PO (08:01)
[2025-02-07] MEDS: Senna/Docusate Sodium 1 Tablet 2 TABLET PO (08:04)
[2025-02-07] MEDS: Tuberculin,Purif.prot.deriv. 50 TU/ML Vial 0.1 ML ID (14:17)
[2025-02-07 16:00] VITALS: BP 96/59; PULSE 72; RESP 18; TEMP 36; O2SAT 98
[2025-02-08 01:32] VITALS: PULSE 72
[2025-02-08] MEDS: Metoprolol(XL)Succ 25 MG Tablet 12.5 MG PO ×2 (01:32→21:06)
[2025-02-08] MEDS: Multivitamin (Healthy Eyes) Capsule 1 CAP PO ×3 (01:33→21:05)
[2025-02-08] MEDS: Latanoprost 0.005% 1 Bottle 1 DRP OPHTHALMIC ×2 (01:33→21:03)
[2025-02-08] MEDS: BRIMONIDINE 0.2% 5ML BOTTLE 1 DRP OPHTHALMIC ×3 (01:33→21:02)
[2025-02-08 06:00] VITALS: BMI 15.3
[2025-02-08 08:56] VITALS: BP 108/61; PULSE 67; RESP 16; TEMP 37.1; O2SAT 97
[2025-02-08] MEDS: Lactobacillis Acidophilus 1 CAP PO (08:59)
[2025-02-08] MEDS: Ensure Plus High Protein 120 ML LIQUID PO ×3 (08:59→16:11)
[2025-02-08] MEDS: Magnesium Chloride 64 MG Delay Rel.Tablet 128 MG PO (09:00)
[2025-02-08] MEDS: Memantine Hydrochloride 5 MG Tablet PO (09:00)
[2025-02-08] MEDS: Cholecalciferol (VIT D3) 25 MCG TABLET (1,000 UNITS) PO (09:01)
[2025-02-08] MEDS: Senna/Docusate Sodium 1 Tablet 2 TABLET PO (11:46)
[2025-02-08 21:00] VITALS: BP 120/76; PULSE 63
[2025-02-08 21:06] VITALS: BP 120/76; PULSE 63
[2025-02-09] MEDS: MELATONIN 3 MG TABLET PO (01:36)
[2025-02-09 05:48] LABS: Hematocrit 32.2 % (40-54); Hemoglobin 10.3 g/dL (13.0-16.5)
[2025-02-09 06:00] VITALS: BMI 26.4
[2025-02-09 07:26] VITALS: BP 129/80; PULSE 65; RESP 16; TEMP 36.3; O2SAT 98
[2025-02-09] MEDS: BRIMONIDINE 0.2% 5ML BOTTLE 1 DRP OPHTHALMIC ×2 (07:29→20:20)
[2025-02-09] MEDS: Cholecalciferol (VIT D3) 25 MCG TABLET (1,000 UNITS) PO (07:29)
[2025-02-09] MEDS: Lactobacillis Acidophilus 1 CAP PO (07:29)
[2025-02-09] MEDS: Magnesium Chloride 64 MG Delay Rel.Tablet 128 MG PO (07:29)
[2025-02-09] MEDS: Multivitamin (Healthy Eyes) Capsule 1 CAP PO ×2 (07:30→20:19)
[2025-02-09] MEDS: Memantine Hydrochloride 5 MG Tablet PO (07:30)
[2025-02-09] MEDS: Senna/Docusate Sodium 1 Tablet 2 TABLET PO ×2 (07:32→20:18)
--- NOTE | 2025-02-09 09:02 | NURSING ---
Addendum entered by Oksana Dee 02/09/25 11:51: 11am pt returned from appt with no new orders at this time, continue plan of care. Original Note: pt off unit with son to ortho appt at this time
--- NOTE | 2025-02-09 09:17 | CASEMGMT ---
Social Work SW left VM with Ed MUSTAFA to follow up on faxed clinicals to ensure pt can return and have needs met before setting DC date with family. Libra Merrill MACHINIST SUPERVISOR OUTSIDE SUPERVISOR ORDER TAKERS
--- NOTE | 2025-02-09 12:00 | MDS.RN ---
Information for the MDS was obtained from review of the clinical record, interview of resident, staff, and direct observation of resident?s care.
--- NOTE | 2025-02-09 12:48 | CASEMGMT ---
Social Work SW received return VM about 10:55 stating CARRIE Cortez from [facility], is coming for an onsite about 11:00. Pt was scheduled in therapy until 11:30. Two son's were visiting with pt and also overheard them anticipating the onsite. SW spoke with the two son's to inquire about plans as son did not contact this worker after POC meeting. At this time Dana did arrive. All parties anticipating DC tomorrow, if the help can be arranged. SW explained this worker will assist in coordinating DC plans, and once Dana completes onsite, to notify this worker of final DC date. All agreed. - Dana presented to this worker's office and confirmed DC 02/10. SW inquired about therapy. Dana stated they use [facility]. SW to speak with son's to ensure agreement. Pt will have 1:1 care for the first several weeks. - SW spoke with pt and son's in room. All confirmed DC 02/10 and agreement to [facility]. No DME needs. Son to transport. Sons appreciative. Plan: DC 02/10 returning to [facility] PT/OT/ST Libra Bey WAFFLE MACHINE OPERATOR DISMANTLER
[2025-02-09] MEDS: Ensure Plus High Protein 120 ML LIQUID PO (14:48)
--- NOTE | 2025-02-09 19:52 | DS.PCM_ITS ---
Providers Date of Admission: 01/30/25 Primary Care Physician: Dr. Moiz Tobias MD Reason For Visit: ANTERIOR R TOTAL HIP ARTHROPLASTY ERSA Diagnosis Discharge Diagnosis (1) Debility: Status: Acute Code(s): R53.81 - Other malaise (2) Osteoarthritis of right knee: Status: Acute Code(s): M17.11 - Unilateral primary osteoarthritis, right knee Qualifiers: Osteoarthritis type: primary Qualified Code(s): M17.11 - Unilateral primary osteoarthritis, right knee (3) Status post right hip replacement: Status: Acute Code(s): Z96.641 - Presence of right artificial hip joint (4) Essential (primary) hypertension: Status: Acute Code(s): I10 - Essential (primary) hypertension (5) Hyperlipidemia: Status: Acute Code(s): E78.5 - Hyperlipidemia, unspecified Qualifiers: Hyperlipidemia type: unspecified Qualified Code(s): E78.5 - Hyperlipidemia, unspecified (6) GERD (gastroesophageal reflux disease): Status: Acute Code(s): K21.9 - Gastro-esophageal reflux disease without esophagitis (7) Hypokalemia: Status: Acute Code(s): E87.6 - Hypokalemia (8) BPH (benign prostatic hyperplasia): Status: Acute Code(s): N40.0 - Benign prostatic hyperplasia without lower urinary tract symptoms Qualifiers: Lower urinary tract symptom presence: unspecified whether lower urinary tract symptoms present Qualified Code(s): N40.0 - Benign prostatic hyperplasia without lower urinary tract symptoms (9) Glaucoma: Status: Acute Code(s): H40.9 - Unspecified glaucoma (10) Alzheimer disease: Status: Acute Code(s): G30.9 - Alzheimer's disease, unspecified; F02.80 - Dementia in other diseases classified elsewhere, unspecified severity, without behavioral disturbance, psychotic disturbance, mood disturbance, and anxiety (11) Allergic rhinitis: Status: Acute Code(s): J30.9 - Allergic rhinitis, unspecified (12) Coronary artery disease: Status: Acute Code(s): I25.10 - Atherosclerotic heart disease of [place] coronary artery without angina pectoris (13) Atrial fibrillation: Status: Acute Code(s): I48.91 - Unspecified atrial fibrillation Plan 79 year old male with below past medical history underwent right total hip replacement 01/26/[address] Sweeney, postoperative course uncomplicated, admitted to TCU with debility, here for rehabilitation, strengthening, prior to discharge home to [facility]. * Debility - PT/OT. * Pain - Tylenol 1000mg q8, Oxycodone 5mg q4 prn pain (1-10). * Bowel - Miralax 17gm daily, senna/colace 2 tablets bid, Magnesium citrate 300mL daily prn, Dulcolax 10mg pr daily prn. * Adult immunization - Administer pneumonia vaccine, covid vaccine, flu vaccine as appropriate. * DVT prophylaxis - Aspirin 81mg twice daily thru 02/27/2025. * Iron deficiency anemia - Ferrous sulfate 325mg daily, Vitamin C 500mg daily. * Hyperlipidemia - Atorvastatin 80mg qhs. * Glaucoma - Brimonidine 1gtt ou bid, Latanoprost 1gtt ou qhs. * Macular Degeneration - Healthy Eyes 1 capsule bid. * Vitamin D deficiency - Vitamin D3 25mcg daily, D level. * Vitamin B12 deficiency - Vitamin B12 1000mcg daily. * Alzheimer Disease - Donepezil 10mg daily, Memantine 5mg daily. * Allergic rhinitis - Flonase 2 sprays daily prn. * Folate deficiency - Folic acid 1mg daily. * GI prophylaxis - Lactobacillus 1 capsule daily. * Hypomagnesemia - Magnesium chloride 128mg daliy. * Insomnia - Melatonin 3mg qhs prn. * Coronary artery disease - Metoprolol succinate 12.5mg bid, Aspirin 81mg bid. * GERD - Pantoprazole 40mg daily. * BPH - Tamsulosin 0.4mg bid. Medications at Discharge Home Medications donepezil 5 mg tablet 10 mg PO DAILY mind 06/04/23 fluticasone propionate 50 mcg/actuation nasal spray,suspension 2 spray intranasal DAILY PRN PRN nasal congestion 09/28/23 ascorbic acid (vitamin C) 500 mg tablet (Vitamin C) 500 mg PO DAILY supplement 03/27/24 atorvastatin 40 mg tablet 80 mg PO DAILY cholesterol 03/27/24 cholecalciferol (vitamin D3) 25 mcg (1,000 unit) capsule (Vitamin D3) 25 mcg PO DAILY supplement 03/27/24 cyanocobalamin (vitamin B-12) 1,000 mcg tablet 1,000 mcg PO DAILY supplement 03/27/24 furosemide 40 mg tablet (Lasix) 20 mg PO .QD PRN edema 03/27/24 magnesium 200 mg tablet 400 mg PO DAILY supplement 03/27/24 metoprolol succinate 25 mg tablet,extended release 24 hr 12.5 mg PO BID BP/pulse 03/27/24 tamsulosin 0.4 mg capsule 0.4 mg PO BID bladder 03/27/24 pantoprazole 40 mg tablet,delayed release (Protonix) 40 mg PO DAILY reflux #30 tabs 09/12/24 L.acidophilus-B.animalis-B.longum 15 billion cell capsule (Florajen Digestion) 1 cap PO DAILY probiotic 01/01/25 brimonidine 0.2 % eye drops 1 drp ophthalmic (eye) BID glaucoma 01/01/25 ferrous sulfate 325 mg (65 mg iron) tablet (FeroSul) 325 mg PO DAILY supplement 01/01/25 folic acid 1 mg tablet 1 mg PO DAILY supplement 01/01/25 latanoprost 0.005 % eye drops 1 drp ophthalmic (eye) QHS eyes 01/01/25 melatonin 3 mg capsule 3 mg PO QHS PRN sleep 01/01/25 memantine 5 mg tablet 5 mg PO DAILY mind 01/01/25 polyethylene glycol 3350 17 gram/dose oral powder (Miralax) 17 g PO DAILY bowels 01/01/25 vit C 250 mg-vit E 90 mg-zinc 40 mg-copper 1 pg-pkroil-cxtnrn capsule (PreserVision AREDS-2) 1 tab PO BID supplement 01/01/25 acetaminophen 500 mg tablet 1,000 mg (2 x 500 mg) PO Q8 #0 tabs 02/09/25 aspirin 81 mg chewable tablet 81 mg PO BID 17 days #0 tabs 02/09/25 oxycodone 5 mg tablet 5 mg PO Q4H PRN PRN Pain Score 1-10 Or Pre Pt/Ot 7 days #42 tabs 02/09/25 sennosides 8.6 mg-docusate sodium 50 mg tablet (Stimulant Laxative Plus) 2 tab PO BID 30 days #120 tabs 02/09/25 Hospital Course Operations total hip replacement (Right.) Procedures None Summary of Care Provided Minutes Spent on Discharge: 35 Hospital Course: 79 year old male with below past medical history underwent right total hip replacement 01/26/[address] Sweeney, postoperative course uncomplicated, admitted to TCU with debility, here for rehabilitation, strengthening, prior to discharge home to [facility]. Discharge 02/10/2025 returning to [facility] PT/OT/ST. Physical Exam Const alert General Appearance: cooperative HEENT normocephalic Eyes PERRL and EOMs intact bilaterally Neck supple, no JVD and no carotid bruits Resp normal respiratory effort, normal air movement and clear to auscultation bilaterally Cardio regular rate and regular rhythm GI normal to inspection, nondistended, normoactive bowel sounds, non-tender and non-distended Extremity normal capillary refill General Extremity: Negative for edema Skin no rashes or lesions noted General Skin Exam: no breakdown Psych affect normal Appearance: appropriate Weight / BMI Weight Weight: 86.183 kg Body Mass Index (BMI) 26.4 ABG / Lab / Microbiology Data 02/09/25 05:27 02/06/25 14:10 Laboratory: Laboratory Results - last 24 hr 02/09/25 05:27: Hgb 10.3 L, Hct 32.2 L Microbiology: Microbiology 02/03/25 05:35 Nasal Secretion SARS-CoV-2 Antigen (Rapid) - Final 02/01/25 06:40 Nasal Secretion SARS-CoV-2 Antigen (Rapid) - Final D/C Instructions Discharge Activity: Return to Normal Activity, May Shower and Use Walker Weight Bearing Status: Weight bearing as tolerated Call your doctor if you observe: Fever of 101 or Higher, Inability to urinate, Inability to have a bowel movement, Shortness of breath, Dizziness, Fainting spells, Swelling in the ankles, Chest pain and Uncontrolled pain DC O2, CPAP, BIPAP Needs Home O2 Discharge instructions: No Additional Instructions: Discharge 02/10/2025 returning to [facility] PT/OT/ST. Please Follow Up With: Danial Dennis PA-C When: As scheduled. Meaningful Use Info Meaningful Use Meaningful Use Diagnoses (Choose all that apply): None applicable Discharge Plan Admission Admit Date/Time: 01/30/25 14:48 Primary Reason for Your Visit: Debility. Attending Provider: Reynaldo Archibald Chi Primary Care Provider: Moiz Tobias Instructions Additional Instructions / Restrictions: Discharge 02/10/2025 returning to [facility] PT/OT/ST. Discharge Orders/Prescriptions Prescriptions: New sennosides-docusate sodium [Stimulant Laxative Plus] 8.6-50 mg Tablet 2 tab PO BID 30 Days Qty: 120 0RF acetaminophen 500 mg Tablet 1,000 mg PO Q8 Qty: 0 0RF aspirin 81 mg Tablet,Chewable 81 mg PO BID 17 Days Qty: 0 0RF oxycodone 5 mg Tablet 5 mg PO Q4H PRN PRN (Reason: Pain Score 1-10 Or Pre Pt/Ot) 7 Days Qty: 42 0RF Continued donepezil 5 mg tablet 10 mg PO DAILY fluticasone propionate 50 mcg/actuation spray,suspension 2 spray INTRANASAL DAILY PRN PRN (Reason: nasal congestion) Patient Comments: [NO ORIGINAL SIG] atorvastatin 40 mg tablet 80 mg PO DAILY cyanocobalamin (vitamin B-12) 1,000 mcg tablet 1,000 mcg PO DAILY cholecalciferol (vitamin D3) [Vitamin D3] 25 mcg (1,000 unit) capsule 25 mcg PO DAILY ascorbic acid (vitamin C) [Vitamin C] 500 mg tablet 500 mg PO DAILY magnesium 200 mg tablet 400 mg PO DAILY tamsulosin 0.4 mg capsule 0.4 mg PO BID metoprolol succinate 25 mg tablet extended release 24 hr 12.5 mg PO BID Patient Comments: [NO ORIGINAL SIG] furosemide [Lasix] 40 mg tablet 20 mg PO .QD PRN (Reason: edema) brimonidine 0.2 % drops 1 drp ophthalmic (eye) BID Florajen Digestion 15 billion cell capsule 1 cap PO DAILY folic acid 1 mg tablet 1 mg PO DAILY latanoprost 0.005 % drops 1 drp ophthalmic (eye) QHS melatonin 3 mg capsule 3 mg PO QHS PRN (Reason: sleep) memantine 5 mg tablet 5 mg PO DAILY polyethylene glycol 3350 [Miralax] 17 gram/dose powder 17 g PO DAILY PreserVision AREDS-2 250-90-40-1 mg capsule 1 tab PO BID ferrous sulfate [FeroSul] 325 mg (65 mg iron) tablet 325 mg PO DAILY pantoprazole [Protonix] 40 mg tablet,delayed release (DR/EC) 40 mg PO DAILY Qty: 30 3RF Discontinued sennosides-docusate sodium [Senna Plus] 8.6-50 mg tablet 1 tab-cap PO QHS PRN (Reason: supplement) potassium chloride [Klor-Con] 20 mEq packet 20 meq PO DAILY PRN (Reason: WITH USE OF LASIX) sennosides-docusate sodium [Stimulant Laxative Plus] 8.6-50 mg Tablet 2 tab-cap PO BID Rx Instructions: Take until first bowel movement, then as needed casanthranol-docusate sodium 30-100 mg capsule 1 cap PO DAILY acetaminophen 500 mg Tablet 1,000 mg PO Q8 14 Days Qty: 0 0RF Rx Instructions: Do not take more than 3000 mg Tylenol in a 24-hour period. aspirin 81 mg Tablet,Chewable 81 mg PO BID 30 Days Qty: 0 0RF Rx Instructions: Take 81 mg aspirin twice daily for 4 weeks postoperatively for DVT prophylaxis. Patient denies past history of DVT or pulmonary embolism. oxycodone 5 mg Tablet 5 - 10 mg PO Q4H PRN PRN (Reason: as needed for pain) 7 Days Qty: 30 0RF Referrals / Follow Up: Moiz Tobias MD [Primary Care Provider, [facility]] - 02/23/25 10:00 am Disposition Disposition (needs filled in before D/C Order can be placed): Assisted Living
[2025-02-09 20:00] VITALS: PULSE 69; O2SAT 98
[2025-02-09 20:09] VITALS: BP 147/87; PULSE 75
[2025-02-09] MEDS: Latanoprost 0.005% 1 Bottle 1 DRP OPHTHALMIC (20:20)
[2025-02-09 20:24] VITALS: BP 147/87; PULSE 75
[2025-02-09] MEDS: Metoprolol(XL)Succ 25 MG Tablet 12.5 MG PO (20:24)
[2025-02-10] MEDS: MELATONIN 3 MG TABLET PO (01:02)
[2025-02-10 01:23] VITALS: PULSE 66; RESP 16; O2SAT 99
[2025-02-10 09:06] VITALS: BP 89/56; PULSE 73; RESP 16; TEMP 36.8; O2SAT 95
[2025-02-10 09:14] VITALS: BP 105/59; PULSE 70
[2025-02-10] MEDS: BRIMONIDINE 0.2% 5ML BOTTLE 1 DRP OPHTHALMIC (09:15)
[2025-02-10] MEDS: Cholecalciferol (VIT D3) 25 MCG TABLET (1,000 UNITS) PO (09:16)
[2025-02-10] MEDS: Multivitamin (Healthy Eyes) Capsule 1 CAP PO (09:16)
[2025-02-10] MEDS: Lactobacillis Acidophilus 1 CAP PO (09:16)
[2025-02-10] MEDS: Memantine Hydrochloride 5 MG Tablet PO (09:17)
[2025-02-10] MEDS: Magnesium Chloride 64 MG Delay Rel.Tablet 128 MG PO (09:17)
[2025-02-10] MEDS: Senna/Docusate Sodium 1 Tablet 2 TABLET PO (09:18)
[2025-02-10] MEDS: Ensure Plus High Protein 120 ML LIQUID PO (09:18)
--- NOTE | 2025-02-10 10:54 | NURSING ---
pt assisted to BR, pt attempted to get up w/out calling for help. pt given walker, walked to BR, voided and then assisted to ambulate in yates. pt c/o leg getting stiff from sitting 2 hours. pt walked to whole unit then back to his chair. call light in reach. alarm in place on chair
--- NOTE | 2025-02-10 14:05 | NURSING ---
faxed ortho f/u appt note to nursing at [facility].
== END 2025-02-10 11:59 | disposition home health service (06) | DRG 561 ==
PROVIDERS: Admitting Provider Family Medicine Geriatric Medicine; PCP Family Medicine; Referring Provider Family Medicine Geriatric Medicine; Visit Provider Family Medicine Geriatric Medicine
DX: Z47.1 Aftercare following joint replacement surgery (principal); E11.39 Type 2 diabetes mellitus with other diabetic ophthalmic complication; D50.9 Iron deficiency anemia, unspecified; E53.8 Deficiency of other specified B group vitamins; E55.9 Vitamin D deficiency, unspecified; G30.9 Alzheimer's disease, unspecified; I48.91 Unspecified atrial fibrillation; I10 Essential (primary) hypertension; I25.10 Atherosclerotic heart disease of native coronary artery without angina pectoris; E78.5 Hyperlipidemia, unspecified; H35.30 Unspecified macular degeneration; E87.6 Hypokalemia; K21.9 Gastro-esophageal reflux disease without esophagitis; J30.9 Allergic rhinitis, unspecified; M17.11 Unilateral primary osteoarthritis, right knee; F02.80 Dementia in other diseases classified elsewhere, unspecified severity, without behavioral disturbance, psychotic disturbance, mood disturbance, and anxiety; E83.42 Hypomagnesemia; H40.9 Unspecified glaucoma; N40.0 Benign prostatic hyperplasia without lower urinary tract symptoms; Z96.641 Presence of right artificial hip joint; Z79.899 Other long term (current) drug therapy; Z79.82 Long term (current) use of aspirin; G47.00 Insomnia, unspecified
CPT/HCPCS: 36415; 80048; 80061; 82306; 85014; 85018; 85025; 87811; 92507; 92523; 97110; 97116; 97162; 97166; 97530; 97535; A4216